=== PATIENT | female | born 1975 | race Caucasian/White ===

== ENCOUNTER → 2018-01-17 15:57 | Outpatient (CLI) | payer MEDICARE, SELFPAY ==
--- NOTE | 2018-01-17 16:00 | RAD_ITS ---
STUDY: X-RAY - CERVICAL SPINE REASON FOR EXAM: Female, 42 years old. Neck pain TECHNIQUE: 3 view(s) of the cervical spine were obtained. COMPARISON: 08/02/2017 FINDINGS: There is no evidence of fracture or dislocation in the cervical spine. The vertebral body heights and disc spaces are well-maintained. There are no significant degenerative changes. The prevertebral soft tissues are unremarkable. There is no radiodense foreign body. RAD/Cerv Spine 2 or 3 Views IMPRESSION: No fracture or dislocation in the cervical spine. Electronically Signed: Jacob Antonio, at 20:35 EST Tel , Service support ,
--- NOTE | 2018-01-17 16:10 | RAD_ITS ---
STUDY: X-RAY - THORACIC SPINE REASON FOR EXAM: Female, 42 years old. Pain TECHNIQUE: 2 view(s) of the thoracic spine were obtained. COMPARISON: 08/02/2017 FINDINGS: There is no evidence of fracture or dislocation in the thoracic spine. The vertebral body heights and disc spaces are well-maintained. There are no significant degenerative changes. RAD/Thoracic Spine 2 Views IMPRESSION: No fracture or dislocation in the thoracic spine. Electronically Signed: Jacob Antonio, at 20:36 EST Tel , Service support ,
== END ==
PROVIDERS: Family Provider Internal Medicine; PCP Internal Medicine; Visit Provider Anesthesiology Pain Medicine
DX: M54.2 Cervicalgia (principal); M54.9 Dorsalgia, unspecified
CPT/HCPCS: 72040; 72070

== ENCOUNTER 2018-08-02 10:30 | Outpatient (RCR) | payer MEDICARE, SELFPAY ==
--- NOTE | 2018-07-04 11:02 | HP.PTEVAL ---
Patient's Visit Information SID MORFIN is a 42 year old F referred to Physical Therapy by Lara Reeder DO with a diagnosis of R knee pain, chondramalacia, OA. Date of Evaluation: 07/04/18 Physical Therapist: Rosalio Mishra - Visit Plan Frequency: 2x /Week Duration: 4 Weeks Plan: Start with HS stretching, quad/HS/glute med strengthening in pain free ranges. Progress to HEP as tolerated. - Subjective Subjective: Pt. is here today for her initial evaluation with diagnosis of R knee chondromalaysia. Pt. reports having pain for ~1 year after standing on a plane and her knee gave out. Pt. reprots having intermittent pain ever since. Pt. reports having chronic pain with bowel issues. Pt. has been taking oral steroids since. Increased pain: standing, walking, twisting, stairs and kneeling. Decreases pain: Cross legged positioning. Pt. reports cracking and popping alot. Pt. reports having to take after her who sounds like he has high level of pain with all mobility. Pt. is hopeful to reduce symptoms with HEP allowing increased tolerance to all functional mobility. Pt. did talk wt physician about potential injections, but physician wanted her to trial PT first. Pt. 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 - Pain R knee pain Pain Intensity (Out of 10): 1 Pain Intensity Range: 7 Comment: when getting up from kneeling - Objective POSTURE: Pt. has general flexed posture. Pt. has wide ANGEL. Pt. has sight bilateral knee valgus and tibial IR. PALPATION: Pt. has increased tenderness along medial aspect joint line. Pt. has increased tenderness along popliteal fossa as well. NEUROLOGICAL: Pt. reports slight reduction in sensation at lateral knee, but rest in normal Pt. has 2+ bilateral achilles and patellar DTR. Pt. is able to rise on heels and toes without increase in symptoms. ROM: L knee 0-0-134deg No pain. R knee 0-0-125deg increased pain with knee flexion, worse with over pressure. Pt. has decreased B hip ROM secondary to pain. Pt. has tight B HS as well. Crepitus noted throughout knee ROM, grestest and TKE and end range flexion. MMT: RLE- ankle 5/5 throughout; knee- ext 4/5, flexion 4/5; hip- flexion 4/5 increase NW, abd 4/5 increase NW hip, ext 4/5 increase NW hip. LLE- ankle/knee 5/5 throughout; hip- flexion 4/5 increase hip pain, abd 4/5 increase hip pain. Core strength- poor. GAIT: Pt. has increased difficulty with getting up and with first few steps. Pt. has improved pattern after initial steps, but still has decreased step length bilaterally, increased lateral hip sway, increased pain noted. STAIRS: Pt. uses BHR with step to pattern, loading LLE only. - Special Tests R Knee Anterior Drawer - ACL: Negative R Knee Pivot Shift - ACL, Ant. Rotator Instability: Negative R Knee Posterior Drawer - PCL: Negative R Knee Valgus - MCL: Negative R Knee Varus - LCL: Negative R Knee Patellar Grind - PFS: Positive - Goals Goal 1:: Pt. to be I with HEP. Goal Time Frame: 4-6 Weeks Goal 2:: Pt. to have increased R knee ROM to 0-0-130deg without increase in symptoms. Goal Time Frame: 4-6 Weeks Goal 3:: Pt. to have increased RLE and core strength increased by 1/2 grade of all effected musculature to reduce stress applied R knee with all functional mobility. Goal 4:: Pt. to have reduced pain with all walking/standing/ADLs to 0-2/10 pain in R knee. Goal Time Frame: 4-6 Weeks - Rehabilitation Potential Physical Therapy Diagnosis: Pt. has signs and symptoms consistent with R knee pain. Pt. has decreased knee flexion with increased pain, RLE weakness and increased pain with all functional mobility. Pt. would benefit from PT to increase quad/HS strength, increase glute med strength, decrease symptoms and increased hip/knee mobility in pain free ranges. Rehabilitation Potential: Good - Anticipated Interventions Patient/Client Instruction: Educate patient on: Condition, Plan of Care, Risk Factors, Benefits of Fitness Program For the Purpose of:: To improve safety, To improve health and function, To foster healthy habits, To improve decision making, To facilitate caregiver knowledge, To improve self management, To prevent re-injury, To improve ability to perform tasks related to life management, To improve tolerance to ADL's Therapeutic Exercise to Include: Strength training, Power training, Endurance training, Postural training, Flexibilty training, Gait and locomotor training, Passive ROM, Active ROM, Dynamic Lumbar Stabilization For the Purpose of:: To decrease pain, To increase ROM, To improve nutrient delivery to tissue, To increase oxygenation perfusion, To improve muscle performance and motor function, To improve ability to perform ADL's, To improve gait and locomotor functions, To improve health of tissue, To decrease soft tissue restriction, To increase flexibility/ROM Manual Therapy Techniques to Include: Mobilization, Functional dry needling, Soft tissue mobilization For the Purpose of:: To decrease pain, To decrease swelling/inflammation, To increase ROM, To improve nutrient delivery to tissue Cryotherapy (ice pack, ice massage): Yes Ultrasound (thermal/non thermal): Yes For the Purpose of:: To decrease pain, To decrease swelling/inflammation, To increase ROM, To improve nutrient delivery to tissue, To decrease soft tissue restriction Thank you for the opportunity to evaluate your patient. For Medicare and Medicare HMO plans, please review the plan of care and approve it. It will need to be FAXED BACK to us at [phone] for Medicare purposes. Please let me know if there are questions or concerns regarding this plan of care. Physician Signature: Date:
--- NOTE | 2018-12-04 17:18 | HP.PT.NRP ---
HP - Discharge Summary (1) - Patient Information SID MORFIN was seen in my office for initial evaluation on 07/04/18. The following Plan of Care was established for this patient: Initial Frequency: 2x /Week Initial Duration: 4 Weeks - Anticipated Interventions Patient/Client Instruction: Educate patient on: Condition, Plan of Care, Risk Factors, Benefits of Fitness Program For the Purpose of:: To improve safety, To improve health and function, To foster healthy habits, To improve decision making, To facilitate caregiver knowledge, To improve self management, To prevent re-injury, To improve ability to perform tasks related to life management, To improve tolerance to ADL's Therapeutic Exercise to Include: Strength training, Power training, Endurance training, Postural training, Flexibilty training, Gait and locomotor training, Passive ROM, Active ROM, Dynamic Lumbar Stabilization For the Purpose of:: To decrease pain, To increase ROM, To improve nutrient delivery to tissue, To increase oxygenation perfusion, To improve muscle performance and motor function, To improve ability to perform ADL's, To improve gait and locomotor functions, To improve health of tissue, To decrease soft tissue restriction, To increase flexibility/ROM Manual Therapy Techniques to Include: Mobilization, Functional dry needling, Soft tissue mobilization For the Purpose of:: To decrease pain, To decrease swelling/inflammation, To increase ROM, To improve nutrient delivery to tissue Cryotherapy (ice pack, ice massage): Yes Ultrasound (thermal/non thermal): Yes For the Purpose of:: To decrease pain, To decrease swelling/inflammation, To increase ROM, To improve nutrient delivery to tissue, To decrease soft tissue restriction This patient was last seen in our office 08/02/18. Pertinent comments regarding their Physical therapy will appear below: Pt. was seen for her knee OA and pain. Pt. was seen for 3 visits, but did not return to further visits. Pt. will be DC from PT at this point intime. At this point I will be discontinuing this patient from physical therapy. I would be happy to see this patient again in the future if found appropriate by the physician. Thank you! Rosalio Mishra, ANDREWT
== END 2018-08-02 19:00 | disposition home or self-care (01) ==
LOC: PT 10:30
PROVIDERS: Family Provider Internal Medicine; PCP Internal Medicine; Visit Provider Orthopaedic Surgery
DX: M25.561 Pain in right knee (principal); M94.261 Chondromalacia, right knee; M17.11 Unilateral primary osteoarthritis, right knee
CPT/HCPCS: 97110; 97161

== ENCOUNTER 2018-08-14 10:34 | Emergency (ER) | payer MEDICARE, SELFPAY ==
[2018-08-14 10:35] VITALS: BP 135/90; PULSE 95; RESP 18; TEMP 36.4; O2SAT 98; BMI 35.5
[2018-08-14 11:15] LABS: Absolute Lymphocyte Count 2.81 X10^3/ul (0.83-4.51); Basophil# 0.02 X10^3/uL; Basophil% 0.3 % (0-1); Eosinophil# 0.14 X10^3/uL; Eosinophils% 2.2 % (0-5); Hemoglobin 14.2 g/dl (12.0-15.0); Lymphocyte # 2.81 X10^3/ul (4.0); Lymphocyte % 44.1 % (19-41); Mean Corpuscular Hgb 28.3 pg (27.0-32.0); Mean Corpuscular Volume 85.7 fL (81-99); Mean Platelet Vol. 10.8 fl (6.2-12.0); Monocyte# 0.38 X10^3/uL; Neutrophil # 3.01 X10^3/uL (2.7-7.7); Neutrophil % 47.2 % (47-70); Platelet Count 176 K/mm3 (150-450); RBC Distribution Width CV 12.9 % (11.6-14.6); RBC Distribution Width SD 40.1 fl (35.1-43.9); Red Blood Count 5.02 M/mm3 (4.2-5.4); White Blood Count 6.4 K/mm3 (4.4-11.0)
[2018-08-14 11:16] LABS: POSITIVE COUNT NO; POSITIVE DIFFERENTIAL NO; POSITIVE MORPHOLOGY NO
[2018-08-14] MEDS: Ketorolac 30 MG/ML Syringe IV (11:19)
[2018-08-14] MEDS: 0.9% Normal Saline 1,000 ML 125 ML IV (11:19)
[2018-08-14 11:23] LABS: Anion Gap 11 (5-15); BUN 6 mg/dL (7-18); BUN/Creat Ratio 8.2 RATIO (10-20); Calcium,Total 9.7 mg/dL (8.5-10.1); Chloride 105 mmol/L (98-107); Creatinine, Serum 0.73 mg/dL (0.55-1.02); EST Glomerular Filtration Rate 92 mL/min (>60); Est Glom Filt Rate - Afr Amer 111 mL/min (>60); Estimated Creatinine Clearance 125.16 ml/min; Glucose 183 mg/dL (74-106); Potassium 4.1 mmol/L (3.5-5.1); Sodium Level 138 mmol/L (136-145)
[2018-08-14 11:27] LABS: Pregnancy, Serum, hCG Quali. NEGATIVE Negative (0-9 Nonpreg)
[2018-08-14 12:15] LABS: Red Blood Cells-Urine 0 SEEN /hpf (0-5)
[2018-08-14 12:18] LABS: Color, Urine Yellow (Yellow); Glucose, Dipstick 50 mg/dl (Normal); Ketone-Dipstick Negative (Negative); Leukocyte Esterase-Dipstick 25 /ul (Negative); Nitrite-Dipstick Negative (Negative); Occult Blood-Urine 10 /ul (Negative); Protein-Dipstick 15 mg/dl (Negative); Specific Gravity, Urine 1.025 (1.002-1.030); Urine Bilirubin Dipstick Negative (Negative); Urine Clarity Sl. Cloudy (Clear); Urine Urobilinogen Normal (Normal)
[2018-08-14 12:25] LABS: White Blood Cells 0-5 SEEN /hpf (0-5)
[2018-08-14 12:26] LABS: Bacteria RARE /hpf (None Seen); Mucous, Urine 1+ /hpf (<or=2+); Squamous Epithelial Cells - UA 0-5 SEEN /hpf (5-10)
--- NOTE | 2018-08-14 13:23 | ED.VISSUMM ---
- ER Visit Summary Date of Service: 08/14/18 Chief Complaint: Abdominal pain] History of Present Illness: The patient is a 42 F [presents with abdominal pain that she has had for 3 weeks. Patient states that she has had significant workup already to look into this including CT scan of the abdomen and pelvis which showed a cystic mass believed to be originating in the ovary on the left. Patient subsequently had a pelvic ultrasound that did show an ovarian cyst measuring 5 cm believed to be a hemorrhagic cyst. Patient denies any vaginal bleeding. Patient states that she also had a CA 125 test that was negative. Patient takes Percocet 3 times a day and that seems to just barely take the edge off her pain. Patient has an appointment with [facility] Dr. Jamil tomorrow. Patient complains of a lot of pressure when she urinates. She denies dysuria however. She has not had any fevers. This is the same pain she has had over the last 3 weeks.] Physical Examination: [HEENT-PERRLA, EOMI. Cranial nerves II through XII grossly intact. TMs clear. Mucous membranes moist. No adenopathy. Cardiovascular-regular rate and rhythm without murmur or ectopy Lungs-clear to auscultation, chest wall stable without crepitus or subcu emphysema Abdomen-normoactive bowel sounds, soft. Patient has tenderness of the left lower quadrant into the pelvic region. No masses palpated. Patient does have ileostomy right lower quadrant. Extremities-intact ?4, normal range of motion, normal pulses, atraumatic] Test Results: [CBC with differential obtained was normal. Chemistries unremarkable. Urinalysis was normal. HCG was negative.] Emergency Department Course and Treatment: Patient was medicated with Toradol 30 mg IV she did have some pain relief with that. At this point I do not feel any further imaging is indicated. I did discuss case with her [facility] who will see her later today.] Treatment Plan: [Follow-up with [facility] today.] Disposition: [Discharged home stable condition.] Impression: [Left abdominal pelvic pain Ovarian cyst] This note was generated with [employer] software. It may contain incorrect words, spelling, and punctuation that were not noted in review of the chart prior to signing ED Disposition - Plan for ED Patient: Chief Complaint: Abd Pain Referrals: Grayson Phan MD [Primary Care Provider] -
--- NOTE | 2018-08-14 13:26 | ED.DCSUM_ITS ---
- ER Visit Summary Date of Service: 08/14/18 Chief Complaint: Abdominal pain] History of Present Illness: The patient is a 42 F [presents with abdominal pain that she has had for 3 weeks. Patient states that she has had significant workup already to look into this including CT scan of the abdomen and pelvis which showed a cystic mass believed to be originating in the ovary on the left. Patient subsequently had a pelvic ultrasound that did show an ovarian cyst measuring 5 cm believed to be a hemorrhagic cyst. Patient denies any vaginal bleeding. Patient states that she also had a CA 125 test that was negative. Patient takes Percocet 3 times a day and that seems to just barely take the edge off her pain. Patient has an appointment with [facility] Dr. Jamil tomorrow. Patient complains of a lot of pressure when she urinates. She denies dysuria however. She has not had any fevers. This is the same pain she has had over the last 3 weeks.] Physical Examination: [HEENT-PERRLA, EOMI. Cranial nerves II through XII grossly intact. TMs clear. Mucous membranes moist. No adenopathy. Cardiovascular-regular rate and rhythm without murmur or ectopy Lungs-clear to auscultation, chest wall stable without crepitus or subcu emphysema Abdomen-normoactive bowel sounds, soft. Patient has tenderness of the left lower quadrant into the pelvic region. No masses palpated. Patient does have ileostomy right lower quadrant. Extremities-intact ?4, normal range of motion, normal pulses, atraumatic] Test Results: [CBC with differential obtained was normal. Chemistries unremarkable. Urinalysis was normal. HCG was negative.] Emergency Department Course and Treatment: Patient was medicated with Toradol 30 mg IV she did have some pain relief with that. At this point I do not feel any further imaging is indicated. I did discuss case with her [facility] who will see her later today.] Treatment Plan: [Follow-up with [facility] today.] Disposition: [Discharged home stable condition.] Impression: [Left abdominal pelvic pain Ovarian cyst] This note was generated with [employer] software. It may contain incorrect words, spelling, and punctuation that were not noted in review of the chart prior to signing ED Disposition - Plan for ED Patient: Chief Complaint: Abd Pain Referrals: Grayson Phan MD [Primary Care Provider] -
--- NOTE | 2018-08-14 13:27 | ED.DEP ---
ED Disposition - Plan for ED Patient: Chief Complaint: Abd Pain Instructions: ED Abdominal Pain Unkn Cause, ED Cyst Ovarian Referrals: Grayson Phan MD [Primary Care Provider] - Sofia Jamil DO [STAFF PHYSICIAN] - As soon as possible
[2018-08-14 13:36] VITALS: BP 135/74; PULSE 81; RESP 16; O2SAT 99
== END 2018-08-14 13:37 | disposition home or self-care (01) ==
PROVIDERS: Emergency Provider Emergency Medicine; Family Provider Internal Medicine; PCP Internal Medicine
DX: R10.2 Pelvic and perineal pain (principal); N83.202 Unspecified ovarian cyst, left side; Z93.2 Ileostomy status; E11.9 Type 2 diabetes mellitus without complications; M79.7 Fibromyalgia; M19.90 Unspecified osteoarthritis, unspecified site; K50.90 Crohn's disease, unspecified, without complications; Z79.84 Long term (current) use of oral hypoglycemic drugs; Z79.899 Other long term (current) drug therapy; Z87.891 Personal history of nicotine dependence
CPT/HCPCS: 80048; 81001; 84703; 85025; 96361; 96374; 99283; J7030; A4216

== ENCOUNTER → 2018-12-04 11:30 | Outpatient (CLI) | payer MEDICARE, SELFPAY ==
[2018-12-04 12:11] LABS: Amphetamine Urine VISTA NEGATIVE (<1000 ng/mL); Barbiturate Urine VISTA NEGATIVE (< 200 ng/mL); Benzodiazepine Urine VISTA NEGATIVE (< 200 ng/mL); Cocaine Urine VISTA NEGATIVE (< 300 ng/mL); Ecstacy Urine VISTA NEGATIVE (< 500 ng/mL); Methadone Urine VISTA NEGATIVE (< 300 ng/mL); PCP Urine VISTA NEGATIVE (< 25 ng/mL); THC Urine VISTA NEGATIVE (< 50 ng/mL); Vista UDS pH Range 5
--- OUTSIDE RECORDS SUMMARY | 2019-02-05 15:17 | XMS RPT_ITS ---
:1975 Author Organization OHIP Care Team Providers Name Role Phone SOPHY HARRISON Referring Unavailable SOPHY HARRISON Attending Unavailable SOPHY HARRISON Referring Unavailable GRAYSON PHAN Attending Unavailable GRAYSON PHAN Referring Unavailable PATRICIO PAINTER Attending Unavailable GRAYSON PHAN Referring Unavailable CYNDIE BORDEN (CNM) Attending Unavailable JENNY BORDENTHIA (CNM) Referring Unavailable MICHI, CYNDIE (CNM) Referring Unavailable MICHI, CYNDIE (CNM) Referring Unavailable MICHI CYNDIE (CNM) Referring Unavailable SAFIA JAMIL Attending Unavailable SAFIA JAMIL Attending Unavailable PHAN, MUSA Attending Unavailable PHAN, MUSA Referring Unavailable LANSASOPHY ORTEGA Attending Unavailable LANSANG, SOPHY Referring Unavailable CHRIS MADISON Attending Unavailable LANSANG, MKITTY Referring Unavailable FRANC MATHUR Attending Unavailable WISWELL, SAFIA Referring Unavailable WISWELL, SAFIA Attending Unavailable WISWELL, SAFIA Referring Unavailable VERITO LEZAMA (COMMUNICATIONS ASSOCIATE) Attending Unavailable PHAN, MUSA Referring Unavailable PHAN, MUSA Attending Unavailable PHAN, MUSA Referring Unavailable ISI FAGAN (HEEL VARNISHER) Referring Unavailable LANSANG, SOPHY Attending Unavailable ROOPASASHANNON, SOPHY Referring Unavailable Basali, Michelle Attending Unavailable Basali, Michelle Referring Unavailable Phan, Grayson Primary Care Unavailable WaytShad Attending Unavailable Phan, Grayson Referring Unavailable Basali, Michelle Attending Unavailable Phan, Grayson Primary Care Unavailable Chicorelli, Lara Attending Unavailable Phan, Grayson Referring Unavailable Phan, Grayson Primary Care Unavailable Chicorelli, Lara Attending Unavailable Phan, Grayson Referring Unavailable Phan, Grayson Primary Care Unavailable Chicorelli, Lara Attending Unavailable Chicorelli, Lara Referring Unavailable Phan, Grayson Primary Care Unavailable Chicorelli, Lara Attending Unavailable Phan, Grayson Referring Unavailable Phan, Grayson Primary Care Unavailable UngurEliazar Attending Unavailable Chicorelli, Lara Attending Unavailable Phan, Grayson Referring Unavailable PROBLEMS PROBLEMS DATE TYPE CONDITION / CODE ATTENDING STATUS SOURCE 12/05/2018 Unknown M75.41 - Impingement Shad Mckeon Active [facility] syndrome of right [facility] M75.41(ICD-10) Repository 12/05/2018 Unknown M75.42 - Impingement Shad Mckeon Active [facility] syndrome of left [facility] shoulder [facility] M75.42(ICD-10) Repository 12/04/2018 Unknown F11.20 - Opioid Basali, Kittyman Active [facility] dependence, [facility] uncomplicated / Hospital F11.20(ICD-10) Repository 11/29/2018 Active Pleurodynia / NA Active [facility] R07.81(ICD-10) Clinic Main [place] Repository 11/26/2018 Active 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 Active [facility] (current) drug Clinic Main therapy / [place] Z79.899(ICD-10) Repository 09/20/2018 Unknown M25.511 - Pain in L[place], Active [facility] right shoulder / [facility] M25.511(ICD-10) Hospital Repository 09/20/2018 Unknown M25.512 - Pain in Lilli, Active [facility] left shoulder / [facility] M25.512(ICD-10) Hospital Repository 08/30/2018 Active Unspecified abdominal NA Active [facility] pain / R10.9(ICD-10) Clinic Main [place] Repository 08/30/2018 Active Dysuria / NA Active [facility] R30.0(ICD-10) Clinic Main [place] Repository 08/09/2018 Active Noninflammatory NA Active [facility] disorder of ovary, Clinic Main fallopian tube and [facility] broad ligament, Repository unspecified / N83.9(ICD-10) 08/07/2018 Active Left lower quadrant NA Active [facility] abdominal swelling, Clinic Main mass and lump / [facility] R19.04(ICD-10) Repository 08/07/2018 Active Unknown / NA Active [facility] UNK(Unknown) Clinic Main [place] Repository 08/06/2018 Active Left lower quadrant NA Active [facility] pain / R10.32(ICD-10) Clinic Main [place] Repository 08/06/2018 Active Other chronic pain / NA Active [facility] G89.29(ICD-10) Clinic Main [place] Repository 12/06/2018 Unknown M25.561 - Pain in Lilli, Active [facility] right knee / [facility] M25.561(ICD-10) Hospital Repository 02/27/2018 Unknown M75.01 - Adhesive Chichumbertoli, Active [facility] capsulitis of right [facility] shoulder / Hospital M75.01(ICD-10) Repository 02/27/2018 Unknown M75.02 - Adhesive Chicorelli, Active [facility] capsulitis of left [facility] shoulder / Hospital M75.02(ICD-10) Repository 08/20/2015 Active Type 2 diabetes NA Active [facility] mellitus without Clinic Main complications / [place] E11.9(ICD-10) Repository 08/20/2015 Active 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 Active [facility] use of insulin / Clinic Main Z79.4(ICD-10) [facility] Repository PROCEDURES PROCEDURES No Procedure Records FoundRESULTS RESULTS CNOV Observed: 12/06/2018 Status: COMPLETED Source: [facility] 9:30 AM CLINIC [facility] REPOSITORY Office Visit (ENDCMN) VANDANA LEZAMA ([id number]) 1975 F Date Time Provider Department 12/06/18 9:30 AM SOPHY HARRISON [facility] During your visit today, we recorded the following information about you: Pulse Blood pressure Weight 85/minute 108/80 80.1 kg Sophy Harrison MD 12/06/2018 11:11 AM Signed HISTORY Ms Vandana Lezama is a 42 year old female who comes in here for follow-up of Type 2 DM - retinal hole, +neuropathy from cervical problems Dyslipidemia and fatty liver- elevated liver enzymes Steroid injections Low bone mass DIABETES Diagnosed DM in 2006, was having reactive hypoglycemia History of diabetes medications: Metformin started first Januvia started 2011 Glyburide caused lows 50s Lantus Current diabetes medications: Lantus - 60 units at bedtime Metformin 1000 mg BID Januvia 50 mg daily (insurance not covering 100 mg dose) Average blood glucoses: brought meter, few readings PreB: 130-170 PreL PreD: >130 Bedtime Hypoglycemias: 1 epidose due to mising dinner, had BG around 87, symptoms of sweats, dizzy and disoriented Was on atorvastatin, stopped, wanting to go holistic, Using essic and dandelion, red yeast rice root Change in meals and exercise: walking in [place], is up and moving 2h daily 7 days a week, no changes in diet Had a fall 1 week ago, right side of body aches STEROIDS/BONE Has ileostomy bag Has Crohn's - no steroids for this, has ileostomy Last steroid exposure including injection September 27 2018, left hip BMD done in 04/2017 showed lowest Z score -2.3 Calcium intake in diet/supplements: Vitamin D intake: Vitamin D3 oral 2000 units 1x daily, multiviatim PMHx: Neg for pancreatitis Crohn's Ovarian cyst BARNES RA Fibromyalgia SocHx: Denies smoking. Occasional alcohol. 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 +frequency OVEN TENDER: ammenorhea, on ongoing BC MUSCULOSKELETAL: joint pain shoulders and hips b/l, Muscle ache on your right intercostal from recent fall SKIN: +eczema across chest, psoriasis flaring up again, no ulcers PSYCH: easily irritable, no anxiety HEMATOLOGY/LYMPHOLOGY: Negative for prolonged bleeding, swollen nodes. Bruises easily ENDOCRINE: See HPI NEURO: No headaches, no focal weakness/numbness Component Latest Ref Rng AND Units 01/23/2018 05/24/2018 08/30/2018 09/06/2018 11/26/2018 Protein, Total 6.3 - 8.0 g/dL 7.5 Albumin 3.9 - 4.9 g/dL 4.4 Calcium 8.5 - 10.2 mg/dL 9.8 10.2 Bilirubin, Total 0.2 - 1.3 mg/dL 0.3 Alkaline Phosphatase 34 - 123 U/L 136 (H) AST 13 - 35 U/L 70 (H) 69 (H) Glucose 74 - 99 mg/dL 161 (H) 309 (H) BUN 7 - 21 mg/dL 10 6 (L) Creatinine 0.58 - 0.96 mg/dL 0.54 (L) 0.61 Sodium 136 - 144 mmol/L 137 138 Potassium 3.7 - 5.1 mmol/L 3.9 4.1 Chloride 97 - 105 mmol/L 100 99 CO2 22 - 30 mmol/L 21 (L) 24 Anion Gap 9 - 18 mmol/L 16 15 ALT 7 - 38 U/L 86 (H) 93 (H) eGFR- >60 >60 eGFR-All Other Races . >60 >60 Cholesterol, Total <200 mg/dL 235 (H) 223 (H) Triglyceride <150 mg/dL 148 129 HDL Cholesterol >39 mg/dL 52 55 LDL Cholesterol <100 mg/dL 153 (H) 142 (H) Non HDL Cholesterol <130 mg/dL 183 (H) 168 (H) Fasting Time hrs 10 12 VLDL Cholesterol <30 mg/dL 30 (H) 26 TC:HDL Ratio <5.10 4.52 4.05 LDL:HDL Ratio <2.54 2.94 (H) 2.58 (H) Creatinine, Ur Random (UCRR) 20 - 300 mg/dL 81.5 269.5 Albumin, Urine Random 0.0 - 23.0 mg/L <12.0 51.7 (H) Albumin/Creat Ratio 0 - 30 mg/g Not calculated 19 Hemoglobin A1C 4.3 - 5.6 % 7.1 (H) Estimated Average Glucose mg/dL 157 Vitamin B12 232 - 1,245 pg/mL 932 Vitamin D 25 Hydroxy 31.0 - 80.0 ng/mL 32.3 Hemoglobin A1C (POCT) 4.2 - 5.6 % 7.5 (A) 8.1 (A) 04/21/2017 ?8:00 AM - Interface, Results In Impression IMPRESSION: THE LOWEST Z-SCORE IS: -2.3 DIAGNOSIS (based on BMD alone): ?Below that expected for age Caution: Medical conditions other than osteoporosis may cause low bone density, such as osteomalacia or renal osteodystrophy. ?Clinical correlation is necessary. FRACTURE RISK (based on BMD alone): ?May be increased Caution: Fracture risk may be increased independent of BMD in patients with corticosteroid use, age greater than 65 years, or a history of prior fragility fracture. FRACTURE RISK - FRAX 10-Year Probability of Fracture ?Hip Fracture: ?0.4 % ?Major Osteoporotic Fracture: ?4.0 % According to the National Osteoporosis Foundation (NOF), healthcare providers should consider FDA-approved medical therapies in postmenopausal women and men aged 50 years and older, based on the following: * ?A hip or vertebral (clinical or morphometric) fracture * ?T-score less than or equal to -2.5 at the femoral neck or spine after appropriate evaluation to exclude secondary causes * ?Low bone mass (T-score between -1.0 and -2.5 at the femoral neck or spine) AND a 10-year probability of a hip fracture greater than or equal to 3% OR a 10-year probability of a major osteoporosis-related fracture greater than or equal to 20% based on the US-adapted WHO FRAX algorithm in a previously untreated patient * ?Clinician's judgment and/or patient preferences may indicate treatment for people with 10-year fracture probabilities above or below these levels RECOMMENDATIONS All patients should consume adequate sources of calcium and vitamin D, as clinically indicated. ?The NOF supports the National Academy of Sciences recommendation that women older than age 50 consume at least 1,200 mg per day of calcium. ? Adults aged 19 to 70 years require at least 600 IU/day of vitamin D to maximize bone health. ?However, serum 25(OH)D should be maintained above 30 ng/mL, and 1500 to 2000 IU/day of vitamin D may be required. Weight bearing exercises and strength training should be considered. Smoking cessation, and moderation of intake of alcohol, caffeine and carbonated beverages are recommended. Follow-up in 2 years or as clinically indicated. ?Patients that are taking corticosteroids, are transplant recipients, or have hyperparathyroidism should have annual follow-up. ?Follow- up scans should always be done on the same machine for accurate comparison. Interpreted by: Pema Wright MS, , CCD, FACE FOR MORE INFORMATION: National Osteoporosis Foundation: ?www.nof.org International Society of Clinical Densitometry: ?www.iscd.org Senior Project Manager Engineering: SANTOS ? Transcribe Date/Time: Apr ?2016 ?7:43A Dictated by : PEMA WRIGHT MD This examination was interpreted and the report reviewed and electronically signed by: PEMA WRIGHT MD on Apr ?7:54AM ?EST Results-Findings * * *Final Report* * * DATE OF EXAM: Apr ?8:56AM ? M6B ? 5714 ?- ?BD AP SPINE/HIP -NB ?/ PROCEDURE REASON: calcium clinic - bone density ?? ? * * * * Physician Interpretation * * * * ?EXAM: DXA - ?BONE DENSITOMETRY ENDOCRINE CALCIUM CLINIC PATIENT DEMOGRAPHICS ?Age: 41, ?Race: C Gender: F ?Height: 152.4 cm, ? Weight: 76.7 Kg, BMI: 33.01 Kg/m2 SCANNER INFORMATION Model of DXA scanner: Human Demand Site of DXA scanner: [facility] Sites scanned: Lumbar spine, ?left hip Date of scan: 04-20-2017 Previous scan(s): 09-22-2014 RISK FACTORS FOR OSTEOPOROSIS AND ASSOCIATED FRACTURES REPORTED BY THE PATIENT Family history of osteoporosis in a first degree relative, ?Family history of a fragility fracture in a first degree relative, Current corticosteroid therapy, Type 2 Diabetes, ?Crohn's disease with ileostomy., ?Lactose intolerance. CURRENT THERAPY Calcium supplements TECHNICAL LIMITATIONS OF THIS DXA The greater trochanter may not have been positioned fully against the DXA table therefore the total hip BMD may be artificially low. 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 Mc, [facility] - Type II or unspecified type diabetes mellitus without mention of complication, not stated as uncontrolled PAST SURGICAL HISTORY Procedure Laterality Date - EPIDURAL multiple ones done by Dr. Beckett, last one in 04/2011 - KNEE SCOPE,DIAGNOSTIC 1989 Arthroscopy, knee, left - OP BRONCHOS DIAG, W/WO WASHING January 2007 Bronchoscopy - PAST SURGICAL HISTORY OF 06/2000 ILEOSTOMY/COLECTOMY - PAST SURGICAL HISTORY OF 1993 CRYOCAUTERY/ MILD DYSPLASIA - PAST SURGICAL HISTORY OF March 2006 Abdominal abscess with anal fistula - PROCTECTOMY,COMPL,COLECTOMY,BX'S 2006 AP endoanal proctectomy - REMOVAL ADENOIDS,PRIMARY,<12 Y/O as child Adenoidectomy - REMOVAL OF TONSILS,<12 Y/O AGE 11 Tonsillectomy Social History Substance Use Topics - Smoking status: Former Smoker Packs/day: 1.00 Years: 16.00 Types: Cigarettes Quit date: 12/04/2006 - Smokeless tobacco: Never Used - Alcohol use No FAMILY HISTORY Problem Relation Age of Onset - Alcohol/Drug Mother - Hypertension Mother COPD - other (vascular disease) Mother - Alcohol/Drug Father - Cancer Father liver - Diabetes Maternal Grandmother - Stroke Maternal Grandmother - Heart Maternal Grandmother - Diabetes Paternal Grandfather - Emphysema Paternal Grandmother Current Outpatient Prescriptions: SUMAtriptan (IMITREX) 50 mg tablet Take one(1) tablet daily as needed, at headache onset. Repeat in two(2) hours if needed. RED YEAST RICE ORAL Take 1 capsule by mouth twice daily. doxycycline (VIBRA-TABS) 100 mg tablet Take 1 tablet by mouth twice daily for 10 days. fluticasone (FLONASE) 50 mcg/actuation nasal spray Use 2 Sprays in each nostril once daily. pregabalin (LYRICA) 150 mg capsule Take 1 capsule by mouth twice daily for 90 days. insulin glargine (LANTUS SOLOSTAR U-100 INSULIN) 100 unit/mL (3 mL) inpn Inject 60 Units subcutaneously daily at bedtime. Norethindrone, Contraceptive, (ORTHO MICRONOR) 0.35 mg tablet Take 1 tablet by mouth once daily. blood sugar diagnostic (BLOOD GLUCOSE TEST) test strip Test blood sugar(s) 2 times daily. Dx: Type 2 DM - Controlled E11.9 Insulin: No, Accu-check brand covered by insurance Lancets (ACCU-CHEK MULTICLIX LANCET) lancets Test blood sugar(s) 2 times daily. Dx: Type 2 DM - Controlled E11.9 Insulin: No Blood-Glucose Meter, Drum-type (ACCU-CHEK COMPACT PLUS CARE) kit Accu-Check Compact Plus Meter Diagnosis: Type 2 DM - Controlled E11.9 metFORMIN (GLUCOPHAGE) 1,000 mg tablet Take 1 tablet by mouth twice daily. ranitidine (ZANTAC) 150 mg tablet Take 1 tablet by mouth twice daily as needed. cetirizine (ZYRTEC) 10 mg tablet Take 1 tablet by mouth once daily. sitaGLIPtin (JANUVIA) 50 mg tablet Take 1 tablet by mouth once daily. Insulin [place], Disposable, (BD ULTRA-FINE DIANNE PEN NEEDLE) 32 gauge x 5/32 ndle Use once a day ammonium lactate (LAC-HYDRIN) 12 % cream Apply 1-2x a day for dry areas acidophilus-pectin, citrus (ACIDOPHILUS PROBIOTIC) 100 million cell-10 mg cap Take 1 cap daily COMPOUNDED PRESCRIPTION 1. V44.2 Ileostomy status (HCC) (primary diagnosis)2. 555.1 Regional enteritis of large intestine (HCC)Ileostomy Supplies. 1. Pouches, 2. Planges, 3. Felipe seals, 4. Stoma adhesive, 5. Stoma powder, 6. Skin preps, 7. Adhesive remover wipes. Dispense 1 year supplies. oxyCODONE-acetaminophen (PERCOCET) 5-325 mg tablet Take 1 tablet by mouth every 8 hours as needed. tizanidine (ZANAFLEX) 4 mg ORAL tablet Take by mouth. . Takes 1 tablet at bedtime. COMPOUNDED PRESCRIPTION CAVILON no-sting barrier film. Prod# [id number] made by [employer] No current facility-administered medications for this visit. ALLERGIES Allergen Reactions - Dilaudid [Hydromorp* Swelling migraines - Levemir [Insulin De* Other: See Comments Urine turned dark and smelly - Methadone Swelling migraine - Morphine Swelling migraines - Remicade [Inflixima* Intolerance broke out in blisters with the 6th dose. - Ultram [Tramadol Hc* Swelling migraines PHYSICAL EXAMINATION BP 108/80 Pulse 85 Wt 80.1 kg (176 lb 8 oz) BMI 35.05 kg/m? Body mass index is 35.05 kg/m?. GENERAL: not in distress, well-appearing HEENT: anicteric sclerae, non-injected conjunctivae NECK: supple, thyroid normal, no lymphadenopathy HEART: regular rate and rhythm, no murmur CHEST: no lesions, clear to auscultation GASTROINTESTINAL: abdomen soft, non-tender GENITOURINARY: Not examined EXTREMITIES: no edema, no tremors, Feet: Shoes and socks removed, normal distal pulses, sensitive to 10 gm monofilament and calluses medial hallux, diffuse dryness on plantar feet MUSCULOSKELETAL: no deformities, no fasciculations SKIN: dry, no cyanosis NEUROLOGIC: alert, oriented ASSESSMENT/PLAN Type 2 diabetes, uncontrolled Dyslipidemia Fatty liver - since 17 y/o Chronic intermittent steroid use Bone loss Check BGs twice a day, different times of day Lantus - 60 units at bedtime, will decrease if she has hypoglycemic episodes Discussed GLP-1 agonist, Trulicity 0.75 mg pen 1x weekly, increase to 2 pens weekly in 1 month. Continue metformin Continue Januvia - will stop when she starts her Trulicity Diabetes health maintenance record reviewed. Hypoglycemia prevention, recognition and treatment reviewed Not wanting to take statin, wants to go holistic Bone health: Calcium intake - calcium rich food list provided Continue vitamin D 2000 units daily Labs Annual DM -done 08/2018 BMD BONE DENSITY - ordered for 04/2019 Follow-up 6 months Contact us sooner if with concerns Follow-up with primary care physician for other medical issues. Hemant Gunter DPM PGY1 December 06, 2018 10:44 AM STAFF TEACHING ADDENDUM I have reviewed the progress note obtained and documented by Dr. Gunter and I personally participated in the rodriguez components. I have discussed the case and management of the patient's care with Dr. Gunter. I have edited the note as needed. In addition: Based on the history I obtained, last steroid injection Sep 2018 Symptoms at BG 87 Neg h/o pancreatitis Neg fam hx of thyroid CA On my exam, well-appearing,reddish cheeks (not new) Assessment and Plan: as noted above post discussion with the resident/fellow. Discussed GLP-1 agonist s/e n/v, rare MTC and pancreatitis, when to seek medical attention Shiv as above Contact us if with hypoglycemia to adjust insulin Calcium-rich foods - list given Temi Harrison M.D., M.P.H. December 06, 2018 11:09 AM [facility] Dipak Randolph 12/06/2018 9:20 AM Signed Downloaded and printed data from patient's meter, provided data to clinician. Alexandru Arce Ma 12/06/2018 10:23 AM Addendum Patient Instructions: Trulicity 0.75 mg weekly. After 1 month increase to 1.5 mg weekly by using two of your 0.75 mg pens AND let us know that you need the 1.5 mg pen Side effects: nausea- should improve in 2 weeks, terrible vomiting or back pain - go to the [facility] if approved for Trulicity Contact me if need to lower Lantus dose Bone density by April 2019 Vitamin D 2000 IU daily Table 1: Recommended Dietary Allowances (RDAs) for Calcium [1] Age Male Female Lactating 0?6 months* 200 mg 200 mg 7?12 months* 260 mg 260 mg 1?3 years 700 mg 700 mg 4?8 years 1,000 mg 1,000 mg 9?13 years 1,300 mg 1,300 mg 14?18 years 1,300 mg 1,300 mg 1,300 mg 1,300 mg 19?50 years 1,000 mg 1,000 mg 1,000 mg 1,000 mg 51?70 years 1,000 mg 1,200 mg 71+ years 1,200 mg 1,200 mg * Adequate Intake (AI) Sources of Calcium Food Milk, yogurt, and cheese are rich natural sources of calcium and are the major food contributors of this nutrient to people in the [place] [1]. Nondairy sources include vegetables, such as Ghanaian cabbage, kale, and broccoli. Spinach provides calcium, but its bioavailability is poor. Most grains do not have high amounts of calcium unless they are fortified; however, they contribute calcium to the diet because they contain small amounts of calcium and people consume them frequently. Foods fortified with calcium include many fruit juices and drinks, tofu, and cereals. Selected food sources of calcium are listed in Table 2. Table 2: Selected Food Sources of Calcium [2] Food Milligrams (mg) per serving Percent DV* Yogurt, plain, low fat, 8 ounces 415 42 Mozzarella, part skim, 1.5 ounces 333 33 Sardines, canned in oil, with bones, 3 ounces 325 33 Yogurt, fruit, low fat, 8 ounces [phone] 31?38 Cheddar cheese, 1.5 ounces 307 31 Milk, nonfat, 8 ounces 299 30 Soymilk, calcium-fortified, 8 ounces 299 30 Milk, reduced-fat (2% milk fat), 8 ounces 293 29 Milk, buttermilk, lowfat, 8 ounces 284 28 Milk, whole (3.25% milk fat), 8 ounces 276 28 Barre juice, calcium-fortified, 6 ounces 261 26 Tofu, firm, made with calcium sulfate, ? cup* * * 253 25 [place], pink, canned, solids with bone, 3 ounces 181 18 Cottage cheese, 1% milk fat, 1 cup 138 14 Tofu, soft, made with calcium sulfate, ? cup * * * 138 14 Phprx-ni-bbv cereal, calcium-fortified, 1 cup 100?1,000 10?100 Frozen yogurt, vanilla, soft serve, ? cup 103 10 Turnip greens, fresh, boiled, ? cup 99 10 Kale, raw, chopped, 1 cup 100 10 Kale, fresh, cooked, 1 cup 94 9 Ice cream, vanilla, ? cup 84 8 Ghanaian cabbage, bok knight, raw, shredded, 1 cup 74 7 Bread, white, 1 slice 73 7 Pudding, chocolate, ready to eat, refrigerated, 4 ounces 55 6 Tortilla, corn, mjukg-hm-wxjf/packer, one 6 diameter 46 5 Tortilla, flour, ikpvt-yd-snok/packer, one 6 diameter 32 3 Sour cream, reduced fat, cultured, 2 tablespoons 31 3 Bread, whole-wheat, 1 slice 30 3 Broccoli, raw, ? cup 21 2 Cheese, cream, regular, 1 tablespoon 14 1 * DV = Daily Value. DVs were developed by the U.S. Food and Drug Administration to help consumers compare the nutrient contents among products within the context of a total daily diet. The DV for calcium is 1,000 mg for adults and children aged 4 years and older. Foods providing 20% of more of the DV are considered to be high sources of a nutrient, but foods providing lower percentages of the DV also contribute to a healthful diet. The U.S. Department of Agriculture?s (USDA?s) Nutrient Database Web site lists the nutrient content of many foods and provides comprehensive list of foods containing calcium arranged by nutrient content and by food name. Calcium content varies slightly by fat content; the more fat, the less calcium the food contains. * * * Calcium content is for tofu processed with a calcium salt. Tofu processed with other salts does not provide significant amounts of calcium. https://ods.od.nih.gov/factsheets/Calcium-HealthProfessional/ Downloaded September 2016 Thank you for choosing the [facility] Department of Endocrinology, Diabetes and Metabolism. Being able to provide excellent health care has allowed us to be # 3 in the country according to [employer]. Did you know that you need to call 48 hours in advance of your scheduled visit, if you are unable to make your appointment? [facility] thanks you for your commitment, because patients not showing to their appointment results in a lost opportunity for patients to receive world class health care at the [facility]. To Cancel an appointment, please choose one of the following: - Call the Appointment Call Center at [phone] - From [employer], Go to Appointments ? Cancel Appts If cancelling, consider your need to reschedule to prevent further delays in your care. To Schedule an appointment, please choose one of the following: - Call the Appointment Call Center at [phone] - From [employer], Go to Appointments ? Request an Appt + BONE MINERAL DENSITY PATIENT INSTRUCTIONS Bone mineral density testing measures the amount of calcium in certain parts of your bones. This information determines how strong your bones are. The test is used to detect osteoporosis, a disease in which the bone's mineral content and density are low, increasing a person's risk of fractures. The lumbar spine (lower back) and the hip are the skeletal sites usually examined. For the test, remember that: 1. You cannot take this test if you are . 2. Eat a normal diet on the day of the test. 3. Take your medications as you normally would. 4. DO NOT take calcium supplements (such as Tums) for 24 hours before the test. 5. On the day of the test, leave valuables (jewelry or credit cards) at home. 6. The test should be performed prior to oral, rectal or IV contrast studies, or at least 7 days after any of these studies. For the test, you may be asked to wear a hospital gown. You will lie on your back, on a padded table, in a comfortable position. Generally, you can resume your usual activities immediately. Referring Provider: SOPHY HARRISON [[id number]] Allergies As of Date: 12/06/2018 Noted Allergy Reaction DILAUDID (HYDROMORPHONE (BULK)) 08/07/2006 7 - Swelling Comments: migraines LEVEMIR (INSULIN DETEMIR) 02/17/2014 14 - Other: See Comments Comments: Urine turned dark and smelly METHADONE 11/04/2013 7 - Swelling Comments: migraine MORPHINE 08/07/2006 7 - Swelling Comments: migraines REMICADE (INFLIXIMAB) 08/08/2006 5 - Intolerance 2 - Rash Comments: broke out in blisters with the 6th dose. ULTRAM (TRAMADOL HCL) 04/07/2009 7 - Swelling Comments: migraines Date Reviewed: 12/06/2018 Reviewed by: Alexandru Arce Ma - Fully Assessed Reason for Visit: Diabetes [34] Primary Visit Diagnosis:Type 2 diabetes mellitus treated with insulin (HCC) [E11.9, Z79.4] Other Visit Diagnoses:Bone loss [M89.8X9] Mixed hyperlipidemia [E78.2] Order(s):DXA-AXIAL SKELETON [[id number]] Order #: [id number] FUTURE dulaglutide (TRULICITY) 0.75 mg / 0.5 ml subcutaneous pen injectorInject 0.75 mg subcutaneously once each week.Disp: 14 PenRfl: 1 Prescriptions as of 12/06/2018 Sig: SUMATRIPTAN 50 MG TABLET Take one(1) tablet daily as n* RED YEAST RICE ORAL Take 1 capsule by mouth twice* FLUTICASONE 50 MCG/ACTUATION * Use 2 Sprays in each nostril * PREGABALIN 150 MG CAPSULE Take 1 capsule by mouth twice* INSULIN GLARGINE (U-100) 100 * Inject 60 Units subcutaneousl* NORETHINDRONE (CONTRACEPTIVE)* Take 1 tablet by mouth once d* BLOOD SUGAR DIAGNOSTIC STRIPS Test blood sugar(s) 2 times d* LANCETS Test blood sugar(s) 2 times d* BLOOD-GLUCOSE METER, DRUM-TYP* Accu-Check Compact Plus Meter* METFORMIN 1,000 MG TABLET Take 1 tablet by mouth twice * RANITIDINE 150 MG TABLET Take 1 tablet by mouth twice * CETIRIZINE 10 MG TABLET Take 1 tablet by mouth once d* PEN NEEDLE, DIABETIC 32 GAUGE* Use once a day AMMONIUM LACTATE 12 % TOPICAL* Apply 1-2x a day for dry areas ACIDOPHILUS 100 MILLION CELL-* Take 1 cap daily COMPOUNDED PRESCRIPTION 1. V44.2 Ileostomy status (HC* OXYCODONE-ACETAMINOPHEN 5 MG-* Take 1 tablet by mouth every * TIZANIDINE 4 MG TABLET Take by mouth. . Takes 1 ta* COMPOUNDED PRESCRIPTION CAVILON no-sting barrier film* DULAGLUTIDE 0.75 MG/0.5 ML MILLER* Inject 0.75 mg subcutaneously* DOXYCYCLINE HYCLATE 100 MG TA* Take 1 tablet by mouth twice * Medication notes this encounter PREGABALIN 150 MG CAPSULE >> Alexandru Arce Ma 12/06/2018 9:18 AM >> ALEXANDRU ARCE MA Rosalva Dec 06, 2018 9:18 AM Take 3 times a day. OXYCODONE-ACETAMINOPHEN 5 MG-325 MG TABLET >> Alexandru Arce Ma 12/06/2018 9:17 AM >> ALEXANDRU ARCE MA Rosalva Dec 06, 2018 9:17 AM Take 3 times a day. Problem List As Of Date 12/06/2018 Noted Resolved REG ENTERITIS, LG INTEST [K50.10] INVALID FOR* Retention of urine, unspecified [R33.9] INVALID FOR*11/27/2018 Mixed hyperlipidemia [E78.2] INVALID FOR* Anemia, unspecified [D64.9] INVALID FOR*03/08/2012 LUMBAGO [M54.5] INVALID FOR* Nonspecific abnormal results of liver function *INVALID FOR*04/19/2011 More... Onychia and paronychia of toe [L03.039] INVALID FOR*02/18/2013 ILEOSTOMY STATUS [Z93.2] INVALID FOR* IMPAIRED GLUCOSE JUNE TEST [R73.09] INVALID FOR*04/16/2008 Type 2 diabetes mellitus treated with insulin (*INVALID FOR* Fibromyalgia [M79.7] INVALID FOR* More... Non-alcoholic fatty liver disease [K76.0] INVALID FOR* Mild dysplasia of cervix [N87.0] INVALID FOR*03/08/2012 Fibromyalgia [M79.7] 04/19/2011 Depression [F32.9] INVALID FOR*11/27/2018 Eczematous dermatitis: hands [L30.9] INVALID FOR*02/18/2013 Xerosis cutis [L85.3] INVALID FOR*02/18/2013 Atopic eczema [L20.9] INVALID FOR* Other psoriasis [L40.8] INVALID FOR* Contact dermatitis and other eczema, due to uns*INVALID FOR*01/03/2017 Hypoglycemia [E16.2] INVALID FOR*03/08/2012 Migraine headache without aura [G43.009] INVALID FOR* Recurrent cold sores [B00.1] INVALID FOR* Sprain of wrist, left [S63.502A] INVALID FOR*05/24/2018 Vitamin B12 deficiency [E53.8] INVALID FOR* Chronic rhinitis [J31.0] INVALID FOR* 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*INVALID FOR* 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] INVALID FOR* Vitreous floaters of both eyes [H43.393] INVALID FOR* Obesity, Class I, BMI 30-34.9 [E66.9] INVALID FOR* Pain in right shoulder [M25.511] INVALID FOR* Pain in left shoulder [M25.512] INVALID FOR* Bone loss [M89.8X9] INVALID FOR* Other instructions from your clinician: Patient Instructions: Trulicity 0.75 mg weekly. After 1 month increase to 1.5 mg weekly by using two of your 0.75 mg pens AND let us know that you need the 1.5 mg pen Side effects: nausea- should improve in 2 weeks, terrible vomiting or back pain - go to the hospital Stop Vish if approved for Trulicity Contact me if need to lower Lantus dose Bone density by April 2019 Vitamin D 2000 IU daily Table 1: Recommended Dietary Allowances (RDAs) for Calcium [1] Age Male Female Lactating 0?6 months* 200 mg 200 mg 7?12 months* 260 mg 260 mg 1?3 years 700 mg 700 mg 4?8 years 1,000 mg 1,000 mg 9?13 years 1,300 mg 1,300 mg 14?18 years 1,300 mg 1,300 mg 1,300 mg 1,300 mg 19?50 years 1,000 mg 1,000 mg 1,000 mg 1,000 mg 51?70 years 1,000 mg 1,200 mg 71+ years 1,200 mg 1,200 mg * Adequate Intake (AI) Sources of Calcium Food Milk, yogurt, and cheese are rich natural sources of calcium and are the major food contributors of this nutrient to people in the [place] [1]. Nondairy sources include vegetables, such as Ghanaian cabbage, kale, and broccoli. Spinach provides calcium, but its bioavailability is poor. Most grains do not have high amounts of calcium unless they are fortified; however, they contribute calcium to the diet because they contain small amounts of calcium and people consume them frequently. Foods fortified with calcium include many fruit juices and drinks, tofu, and cereals. Selected food sources of calcium are listed in Table 2. Table 2: Selected Food Sources of Calcium [2] Food Milligrams (mg) per serving Percent DV* Yogurt, plain, low fat, 8 ounces 415 42 Mozzarella, part skim, 1.5 ounces 333 33 Sardines, canned in oil, with bones, 3 ounces 325 33 Yogurt, fruit, low fat, 8 ounces 313?384 31?38 Cheddar cheese, 1.5 ounces 307 31 Milk, nonfat, 8 ounces 299 30 Soymilk, calcium-fortified, 8 ounces 299 30 Milk, reduced-fat (2% milk fat), 8 ounces 293 29 Milk, buttermilk, lowfat, 8 ounces 284 28 Milk, whole (3.25% milk fat), 8 ounces 276 28 Barre juice, calcium-fortified, 6 ounces 261 26 Tofu, firm, made with calcium sulfate, ? cup* * * 253 25 [place], pink, canned, solids with bone, 3 ounces 181 18 Cottage cheese, 1% milk fat, 1 cup 138 14 Tofu, soft, made with calcium sulfate, ? cup * * * 138 14 Crxuu-wc-pdm cereal, calcium-fortified, 1 cup 100?1,000 10?100 Frozen yogurt, vanilla, soft serve, ? cup 103 10 Turnip greens, fresh, boiled, ? cup 99 10 Kale, raw, chopped, 1 cup 100 10 Kale, fresh, cooked, 1 cup 94 9 Ice cream, vanilla, ? cup 84 8 Ghanaian cabbage, bok knight, raw, shredded, 1 cup 74 7 Bread, white, 1 slice 73 7 Pudding, chocolate, ready to eat, refrigerated, 4 ounces 55 6 Tortilla, corn, qxojs-uy-raur/packer, one 6 diameter 46 5 Tortilla, flour, bpfzh-pf-oxvt/packer, one 6 diameter 32 3 Sour cream, reduced fat, cultured, 2 tablespoons 31 3 Bread, whole-wheat, 1 slice 30 3 Broccoli, raw, ? cup 21 2 Cheese, cream, regular, 1 tablespoon 14 1 * DV = Daily Value. DVs were developed by the U.S. Food and Drug Administration to help consumers compare the nutrient contents among products within the context of a total daily diet. The DV for calcium is 1,000 mg for adults and children aged 4 years and older. Foods providing 20% of more of the DV are considered to be high sources of a nutrient, but foods providing lower percentages of the DV also contribute to a healthful diet. The U.S. Department of Agriculture?s (USDA?s) Nutrient Database Web site lists the nutrient content of many foods and provides comprehensive list of foods containing calcium arranged by nutrient content and by food name. Calcium content varies slightly by fat content; the more fat, the less calcium the food contains. * * * Calcium content is for tofu processed with a calcium salt. Tofu processed with other salts does not provide significant amounts of calcium. https://ods.od.nih.gov/factsheets/Calcium-HealthProfessional/ Downloaded September 2016 Thank you for choosing the [facility] Department of Endocrinology, Diabetes and Metabolism. Being able to provide excellent health care has allowed us to be # 3 in the country according to [employer]. Did you know that you need to call 48 hours in advance of your scheduled visit, if you are unable to make your appointment? [facility] thanks you for your commitment, because patients not showing to their appointment results in a lost opportunity for patients to receive world class health care at the [facility]. To Cancel an appointment, please choose one of the following: - Call the Appointment Call Center at [phone] - From [employer], Go to Appointments ? Cancel Appts If cancelling, consider your need to reschedule to prevent further delays in your care. To Schedule an appointment, please choose one of the following: - Call the Appointment Call Center at [phone] - From [employer], Go to Appointments ? Request an Appt + BONE MINERAL DENSITY PATIENT INSTRUCTIONS Bone mineral density testing measures the amount of calcium in certain parts of your bones. This information determines how strong your bones are. The test is used to detect osteoporosis, a disease in which the bone's mineral content and density are low, increasing a person's risk of fractures. The lumbar spine (lower back) and the hip are the skeletal sites usually examined. For the test, remember that: 1. You cannot take this test if you are . 2. Eat a normal diet on the day of the test. 3. Take your medications as you normally would. 4. DO NOT take calcium supplements (such as Tums) for 24 hours before the test. 5. On the day of the test, leave valuables (jewelry or credit cards) at home. 6. The test should be performed prior to oral, rectal or IV contrast studies, or at least 7 days after any of these studies. For the test, you may be asked to wear a hospital gown. You will lie on your back, on a padded table, in a comfortable position. Generally, you can resume your usual activities immediately. Visit Notes: >> Alexandru Arce Ma Rosalva Dec 06, 2018 9:16 AM Status: Signed Downloaded and printed data from patient's meter, provided data to clinician. Alexandru Arce Ma Prescriptions ordered this encounter Disp Refills Start End DULAGLUTIDE 0.75 MG/0.5 ML SUBCUTANE* 14 P* 1 12/06/2018 Route: SUBCUTANEOUS Sig: Inject 0.75 mg subcutaneously once each week. SITAGLIPTIN 50 MG TABLET 90 t* 0 12/06/2018 12/06/2018 Route: ORAL Sig: Take 1 tablet by mouth once daily. Medications Discontinued During This Encounter sitaGLIPtin (IA) 50 mg tablet 90 t* 2 06/19/2018 12/06/2018 Route: ORAL Sig: Take 1 tablet by mouth once daily. Disc: Reason for discontinue is not on file. sitaGLIPtin (JANUVIA) 50 mg tablet 90 t* 0 12/06/2018 12/06/2018 Route: ORAL Sig: Take 1 tablet by mouth once daily. Disc: Reason for discontinue is not on file. Disposition: Return in about 6 months (around 06/05/2019). Follow-up and Disposition History Recorded Encounter Status:Closed by MONY HARRISON MD on 12/06/18 PROGRESS Observed: 12/06/2018 Status: COMPLETED Source: [place] 8:17 AM [facility] [place] [facility] ID: [id number] Author: Sophy Harrison Service: (none) Author Type: Physician Type: Progress Notes Filed: 12/06/2018 11:11 AM Note Text: HISTORY Ms Vandana Lezama is a 42 year old female who comes in here for follow-up of Type 2 DM - retinal hole, +neuropathy from cervical problems Dyslipidemia and fatty liver- elevated liver enzymes Steroid injections Low bone mass DIABETES Diagnosed DM in 2006, was having reactive hypoglycemia History of diabetes medications: Metformin started first Januvia started 2011 Glyburide caused lows 50s Lantus Current diabetes medications: Lantus - 60 units at bedtime Metformin 1000 mg BID Januvia 50 mg daily (insurance not covering 100 mg dose) Average blood glucoses: brought meter, few readings PreB: 130-170 PreL PreD: >130 Bedtime Hypoglycemias: 1 epidose due to mising dinner, had BG around 87, symptoms of sweats, dizzy and disoriented Was on atorvastatin, stopped, wanting to go holistic, Using essic and dandelion, red yeast rice root Change in meals and exercise: walking in [place], is up and moving 2h daily 7 days a week, no changes in diet Had a fall 1 week ago, right side of body aches STEROIDS/BONE Has ileostomy bag Has Crohn's - no steroids for this, has ileostomy Last steroid exposure including injection September 27 2018, left hip BMD done in 04/2017 showed lowest Z score -2.3 Calcium intake in diet/supplements: Vitamin D intake: Vitamin D3 oral 2000 units 1x daily, multiviatim PMHx: Neg for pancreatitis Crohn's Ovarian cyst BARNES RA Fibromyalgia SocHx: Denies smoking. Occasional alcohol. 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 +frequency OVEN TENDER: ammenorhea, on ongoing BC MUSCULOSKELETAL: joint pain shoulders and hips b/l, Muscle ache on your right intercostal from recent fall SKIN: +eczema across chest, psoriasis flaring up again, no ulcers PSYCH: easily irritable, no anxiety HEMATOLOGY/LYMPHOLOGY: Negative for prolonged bleeding, swollen nodes. Bruises easily ENDOCRINE: See HPI NEURO: No headaches, no focal weakness/numbness Component Latest Ref Rng AND Units 01/23/2018 05/24/2018 08/30/2018 09/06/2018 11/26/2018 Protein, Total 6.3 - 8.0 g/dL 7.5 Albumin 3.9 - 4.9 g/dL 4.4 Calcium 8.5 - 10.2 mg/dL 9.8 10.2 Bilirubin, Total 0.2 - 1.3 mg/dL 0.3 Alkaline Phosphatase 34 - 123 U/L 136 (H) AST 13 - 35 U/L 70 (H) 69 (H) Glucose 74 - 99 mg/dL 161 (H) 309 (H) BUN 7 - 21 mg/dL 10 6 (L) Creatinine 0.58 - 0.96 mg/dL 0.54 (L) 0.61 Sodium 136 - 144 mmol/L 137 138 Potassium 3.7 - 5.1 mmol/L 3.9 4.1 Chloride 97 - 105 mmol/L 100 99 CO2 22 - 30 mmol/L 21 (L) 24 Anion Gap 9 - 18 mmol/L 16 15 ALT 7 - 38 U/L 86 (H) 93 (H) eGFR- >60 >60 eGFR-All Other Races . >60 >60 Cholesterol, Total <200 mg/dL 235 (H) 223 (H) Triglyceride <150 mg/dL 148 129 HDL Cholesterol >39 mg/dL 52 55 LDL Cholesterol <100 mg/dL 153 (H) 142 (H) Non HDL Cholesterol <130 mg/dL 183 (H) 168 (H) Fasting Time hrs 10 12 VLDL Cholesterol <30 mg/dL 30 (H) 26 TC:HDL Ratio <5.10 4.52 4.05 LDL:HDL Ratio <2.54 2.94 (H) 2.58 (H) Creatinine, Ur Random (UCRR) 20 - 300 mg/dL 81.5 269.5 Albumin, Urine Random 0.0 - 23.0 mg/L <12.0 51.7 (H) Albumin/Creat Ratio 0 - 30 mg/g Not calculated 19 Hemoglobin A1C 4.3 - 5.6 % 7.1 (H) Estimated Average Glucose mg/dL 157 Vitamin B12 232 - 1,245 pg/mL 932 Vitamin D 25 Hydroxy 31.0 - 80.0 ng/mL 32.3 Hemoglobin A1C (POCT) 4.2 - 5.6 % 7.5 (A) 8.1 (A) 04/21/2017 ?8:00 AM - Interface, Results In Impression IMPRESSION: THE LOWEST Z-SCORE IS: -2.3 DIAGNOSIS (based on BMD alone): ?Below that expected for age Caution: Medical conditions other than osteoporosis may cause low bone density, such as osteomalacia or renal osteodystrophy. ?Clinical correlation is necessary. FRACTURE RISK (based on BMD alone): ?May be increased Caution: Fracture risk may be increased independent of BMD in patients with corticosteroid use, age greater than 65 years, or a history of prior fragility fracture. FRACTURE RISK - FRAX 10-Year Probability of Fracture ?Hip Fracture: ?0.4 % ?Major Osteoporotic Fracture: ?4.0 % According to the National Osteoporosis Foundation (NOF), healthcare providers should consider FDA-approved medical therapies in postmenopausal women and men aged 50 years and older, based on the following: * ?A hip or vertebral (clinical or morphometric) fracture * ?T-score less than or equal to -2.5 at the femoral neck or spine after appropriate evaluation to exclude secondary causes * ?Low bone mass (T-score between -1.0 and -2.5 at the femoral neck or spine) AND a 10-year probability of a hip fracture greater than or equal to 3% OR a 10-year probability of a major osteoporosis-related fracture greater than or equal to 20% based on the [place]-adapted WHO FRAX algorithm in a previously untreated patient * ?Clinician's judgment and/or patient preferences may indicate treatment for people with 10-year fracture probabilities above or below these levels RECOMMENDATIONS All patients should consume adequate sources of calcium and vitamin D, as clinically indicated. ?The NOF supports the National Academy of Sciences recommendation that women older than age 50 consume at least 1,200 mg per day of calcium. ? Adults aged 19 to 70 years require at least 600 IU/day of vitamin D to maximize bone health. ?However, serum 25(OH)D should be maintained above 30 ng/mL, and 1500 to 2000 IU/day of vitamin D may be required. Weight bearing exercises and strength training should be considered. Smoking cessation, and moderation of intake of alcohol, caffeine and carbonated beverages are recommended. Follow-up in 2 years or as clinically indicated. ?Patients that are taking corticosteroids, are transplant recipients, or have hyperparathyroidism should have annual follow-up. ?Follow- up scans should always be done on the same machine for accurate comparison. Interpreted by: Pema Wright MS, , [facility], FACE FOR MORE INFORMATION: National Osteoporosis Foundation: ?www.nof.org International Society of Clinical Densitometry: ?www.iscd.org Senior Project Manager Engineering: [employer] ? Transcribe Date/Time: Apr ?7:43A Dictated by : PEMA WRIGHT MD This examination was interpreted and the report reviewed and electronically signed by: PEMA WRIGHT MD on Apr ?7:54AM ?EST Results-Findings * * *Final Report* * * DATE OF EXAM: Apr ?8:56AM ? M6B ? 5714 ?- ?BD AP SPINE/HIP -NB ?/ PROCEDURE REASON: calcium clinic - bone density ?? ? * * * * Physician Interpretation * * * * ?EXAM: DXA - ?BONE DENSITOMETRY ENDOCRINE CALCIUM CLINIC PATIENT DEMOGRAPHICS ?Age: 41, ?Race: C Gender: F ?Height: 152.4 cm, ? Weight: 76.7 Kg, BMI: 33.01 Kg/m2 SCANNER INFORMATION Model of DXA scanner: Human Demand Site of DXA scanner: [facility] Sites scanned: Lumbar spine, ?left hip Date of scan: 04-20-2017 Previous scan(s): 09-22-2014 RISK FACTORS FOR OSTEOPOROSIS AND ASSOCIATED FRACTURES REPORTED BY THE PATIENT Family history of osteoporosis in a first degree relative, ?Family history of a fragility fracture in a first degree relative, Current corticosteroid therapy, Type 2 Diabetes, ?Crohn's disease with ileostomy., ?Lactose intolerance. CURRENT THERAPY Calcium supplements TECHNICAL LIMITATIONS OF THIS DXA The greater trochanter may not have been positioned fully against the DXA table therefore the total hip BMD may be artificially low. 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 Mc, [facility] - Type II or unspecified type diabetes mellitus without mention of complication, not stated as uncontrolled PAST SURGICAL HISTORY Procedure Laterality Date - EPIDURAL multiple ones done by Dr. Beckett, last one in 04/2011 - KNEE SCOPE,DIAGNOSTIC 1989 Arthroscopy, knee, left - OP BRONCHOS DIAG, W/WO WASHING January 2007 Bronchoscopy - PAST SURGICAL HISTORY OF 06/2000 ILEOSTOMY/COLECTOMY - PAST SURGICAL HISTORY OF 1993 CRYOCAUTERY/ MILD DYSPLASIA - PAST SURGICAL HISTORY OF March 2006 Abdominal abscess with anal fistula - PROCTECTOMY,COMPL,COLECTOMY,BX'S 2006 AP endoanal proctectomy - REMOVAL ADENOIDS,PRIMARY,<12 Y/O as child Adenoidectomy - REMOVAL OF TONSILS,<12 Y/O AGE 11 Tonsillectomy Social History Substance Use Topics - Smoking status: Former Smoker Packs/day: 1.00 Years: 16.00 Types: Cigarettes Quit date: 12/04/2006 - Smokeless tobacco: Never Used - Alcohol use No FAMILY HISTORY Problem Relation Age of Onset - Alcohol/Drug Mother - Hypertension Mother COPD - other (vascular disease) Mother - Alcohol/Drug Father - Cancer Father liver - Diabetes Maternal Grandmother - Stroke Maternal Grandmother - Heart Maternal Grandmother - Diabetes Paternal Grandfather - Emphysema Paternal Grandmother Current Outpatient Prescriptions: SUMAtriptan (IMITREX) 50 mg tablet Take one(1) tablet daily as needed, at headache onset. Repeat in two(2) hours if needed. RED YEAST RICE ORAL Take 1 capsule by mouth twice daily. doxycycline (VIBRA-TABS) 100 mg tablet Take 1 tablet by mouth twice daily for 10 days. fluticasone (FLONASE) 50 mcg/actuation nasal spray Use 2 Sprays in each nostril once daily. pregabalin (LYRICA) 150 mg capsule Take 1 capsule by mouth twice daily for 90 days. insulin glargine (LANTUS SOLOSTAR U-100 INSULIN) 100 unit/mL (3 mL) inpn Inject 60 Units subcutaneously daily at bedtime. Norethindrone, Contraceptive, (ORTHO MICRONOR) 0.35 mg tablet Take 1 tablet by mouth once daily. blood sugar diagnostic (BLOOD GLUCOSE TEST) test strip Test blood sugar(s) 2 times daily. Dx: Type 2 DM - Controlled E11.9 Insulin: No, Accu-check brand covered by insurance Lancets (ACCU-CHEK MULTICLIX LANCET) lancets Test blood sugar(s) 2 times daily. Dx: Type 2 DM - Controlled E11.9 Insulin: No Blood-Glucose Meter, Drum-type (ACCU-CHEK COMPACT PLUS CARE) kit Accu-Check Compact Plus Meter Diagnosis: Type 2 DM - Controlled E11.9 metFORMIN (GLUCOPHAGE) 1,000 mg tablet Take 1 tablet by mouth twice daily. ranitidine (ZANTAC) 150 mg tablet Take 1 tablet by mouth twice daily as needed. cetirizine (ZYRTEC) 10 mg tablet Take 1 tablet by mouth once daily. sitaGLIPtin (JANUVIA) 50 mg tablet Take 1 tablet by mouth once daily. Insulin [place], Disposable, (BD ULTRA-FINE DIANNE PEN NEEDLE) 32 gauge x /32 ndle Use once a day ammonium lactate (LAC-HYDRIN) 12 % cream Apply 1-2x a day for dry areas acidophilus-pectin, citrus (ACIDOPHILUS PROBIOTIC) 100 million cell-10 mg cap Take 1 cap daily COMPOUNDED PRESCRIPTION 1. V44.2 Ileostomy status ([facility]) (primary diagnosis)2. 555.1 Regional enteritis of large intestine ([facility])Ileostomy Supplies. 1. Pouches, 2. Planges, 3. Felipe seals, 4. Stoma adhesive, 5. Stoma powder, 6. Skin preps, 7. Adhesive remover wipes. Dispense 1 year supplies. oxyCODONE-acetaminophen (PERCOCET) 5-325 mg tablet Take 1 tablet by mouth every 8 hours as needed. tizanidine (ZANAFLEX) 4 mg ORAL tablet Take by mouth. . Takes 1 tablet at bedtime. COMPOUNDED PRESCRIPTION CAVILON no-sting barrier film. Prod# 3343 made by [employer] No current facility-administered medications for this visit. ALLERGIES Allergen Reactions - Dilaudid [Hydromorp* Swelling migraines - Levemir [Insulin De* Other: See Comments Urine turned dark and smelly - Methadone Swelling migraine - Morphine Swelling migraines - Remicade [Inflixima* Intolerance broke out in blisters with the 6th dose. - Ultram [Tramadol Hc* Swelling migraines PHYSICAL EXAMINATION BP 108/80 Pulse 85 Wt 80.1 kg (176 lb 8 oz) BMI 35.05 kg/m? Body mass index is 35.05 kg/m?. GENERAL: not in distress, well-appearing HEENT: anicteric sclerae, non-injected conjunctivae NECK: supple, thyroid normal, no lymphadenopathy HEART: regular rate and rhythm, no murmur CHEST: no lesions, clear to auscultation GASTROINTESTINAL: abdomen soft, non-tender GENITOURINARY: Not examined EXTREMITIES: no edema, no tremors, Feet: Shoes and socks removed, normal distal pulses, sensitive to 10 gm monofilament and calluses medial hallux, diffuse dryness on plantar feet MUSCULOSKELETAL: no deformities, no fasciculations SKIN: dry, no cyanosis NEUROLOGIC: alert, oriented ASSESSMENT/PLAN Type 2 diabetes, uncontrolled Dyslipidemia Fatty liver - since 17 y/o Chronic intermittent steroid use Bone loss Check BGs twice a day, different times of day Lantus - 60 units at bedtime, will decrease if she has hypoglycemic episodes Discussed GLP-1 agonist, Trulicity 0.75 mg pen 1x weekly, increase to 2 pens weekly in 1 month. Continue metformin Continue Januvia - will stop when she starts her Trulicity Diabetes health maintenance record reviewed. Hypoglycemia prevention, recognition and treatment reviewed Not wanting to take statin, wants to go holistic Bone health: Calcium intake - calcium rich food list provided Continue vitamin D 2000 units daily Labs Annual DM -done 08/2018 BMD BONE DENSITY - ordered for 04/2019 Follow-up 6 months Contact us sooner if with concerns Follow-up with primary care physician for other medical issues. Hemant Gunter DPM PGY1 December 06, 2018 10:44 AM STAFF TEACHING ADDENDUM I have reviewed the progress note obtained and documented by Dr. Gunter and I personally participated in the rodriguez components. I have discussed the case and management of the patient's care with Dr. Gunter. I have edited the note as needed. In addition: Based on the history I obtained, last steroid injection Sep 2018 Symptoms at BG 87 Neg h/o pancreatitis Neg fam hx of thyroid CA On my exam, well-appearing,reddish cheeks (not new) Assessment and Plan: as noted above post discussion with the resident/fellow. Discussed GLP-1 agonist s/e n/v, rare MTC and pancreatitis, when to seek medical attention Trulicity as above Contact us if with hypoglycemia to adjust insulin Calcium-rich foods - list given eTmi Harrison M.D., M.P.H. December 06, 2018 11:09 AM ORTHOPEDIC VISIT Observed: 12/05/2018 Status: F Source: [place] REPORT 11:27 AM [facility] [place] REPOSITORY [facility] [address] [place] [address] OFFICE VISIT Date of Service: 12/05/18 MR#: [id number] Acct: [id number] Name: VANDANA LEZAMA Rep #: [id number] : 1975 Provider: PATRICIO Mckeon Age/Sex: 42/F Location: [facility] [place] [place]: Signed Intake Intake Visit Reasons: bilateral shoulders Is patient in pain?: Yes Allergies infliximab [From Remicade] Allergy (Verified 12/05/18 09:48) Rash morphine Allergy (Verified 12/05/18 09:48) Swelling Medications Metformin HCl [Glucophage] 1,000 mg PO BIDCM 03/06/17 [History Confirmed 08/14/18] Ranitidine [Zantac] 150 mg PO BID PRN 03/06/17 [History Confirmed 08/14/18] Sitagliptin Phosphate [Januvia] 50 mg PO DAILY 03/06/17 [History Confirmed 08/14/18] Tizanidine HCl [Zanaflex] 1 - 2 tab PO BID 03/06/17 [History Confirmed 08/14/18] oxycodone-acetaminophen 5 mg-325 mg tablet 1 tab PO TID 06/28/18 [History Confirmed 08/14/18] norethindrone (contraceptive) 0.35 mg tablet 0.35 mg PO DAILY 09/20/18 [History Confirmed 09/20/18] PFSH Social History Smoking Status: Former smoker HPI bilateral shoulders: Details: VANDANA LEZAMA is a 42 year old F here today for bilateral shoulder pain, left greater than right. Patient notes that she has pain over her superior shoulder with range of motion. Patient has good range of motion. She had an injection on 09/30/18 which was helpful for a few months. Patient completed physical therapy which was not helpful. Patient had an MRI previously in 2017. Denies numbness, tingling or other associated symptoms. ROS Const Reports system reviewed and no additional complaints, except as docu Eyes Reports system reviewed and no additional complaints, except as docu ENT Reports system reviewed and no additional complaints, except as docu Card Reports system reviewed and no additional complaints, except as docu Resp Reports system reviewed and no additional complaints, except as docu GI Reports system reviewed and no additional complaints, except as docu Reports system reviewed and no additional complaints, except as docu Musc Reports joint pain Skin/Breast Reports system reviewed and no additional complaints, except as docu Neuro Yes system reviewed and no additional complaints, except as docu Psych Reports system reviewed and no additional complaints, except as docu Endo Reports system reviewed and no additional complaints, except as docu Ortho Exam Right Shoulder Skin/Wound: No ecchymosis Testing: Positive Neer's, Speed's, TTP Biceps, AROM-Forward Elevation 0-180 and AROM-External Rotation at side 0-60; negative Hawkin's, TTP AC Joint, Apprehension Test or empty can Internal Rotation: T12 SHOULDER: Patient has no evident abnormalities on inspection of the right shoulder. She has no localized or generalized swelling. She has no ecchymosis/bruising, erythema or other skin changes noted. Patient has full forward elevation, full abduction, and full external rotation. She is a very slight decrease in internal rotation compared to the left shoulder at the same time she claims is because she had a recent fall and has pains in her ribs which is limiting her motion. She has strength that is comparable to the left shoulder. She does have a positive Neer impingement sign at the same time does not really have any pains with Hester. She does have a positive speeds test and tender with biceps. She has no apprehension or translation. Left Shoulder Testing: No Neer's, Yes Hawkin's, Yes Speed's, Yes TTP Biceps, No TTP AC Joint, No Drop Arm, Yes AROM-Forward Elevation 0-180, Yes AROM-External Rotation at side 0-60, No Apprehension Test, No translation, No empty can Internal Rotation: Tip of Scapula SHOULDER: Patient has no evident abnormalities on inspection of the right shoulder. She has no localized or generalized swelling. She has no ecchymosis/bruising, erythema or other skin changes noted. Patient has full forward elevation, full abduction, and full external rotation. Internal rotation is normal at the tip of the scapula and a little better on the left side compared to the left. She has strength that is comparable to the right shoulder. The shoulder is a little different in that she has a positive Hester sign but a negative Neer impingement sign on the side. She does have tenderness of the biceps and a positive Speed sign. She has no apprehension or translation. Assessment AND Plan Problems 1. Impingement syndrome of both shoulders M75.41; M75.42 Plan At this time patient has had problems with her shoulders for a few years now. She did have an MRI back in 2017 as well as previous x-rays. She has undergone physical therapy and has had injections to both of her shoulders. She states that the injections at this point are lasting maybe a month and a half. I did discuss that today she is too early to have injections as it is only been 2 months especially with her being diabetic. We did discuss arthroscopic shoulder surgery which for her looks like would be a subacromial decompression, acromioplasty, and synovectomy. At this time patient states she would at least like to have an option for arthroscopic procedure of the shoulders. The left shoulder is worse than the right and that would be the one that we would start with. It has been 2 years since her last MRI and therefore we are going to update the MRI at this time and have her come back in to review that MRI with our surgeon here. As discussed above there does not appear to be any indications of rotator cuff rupture or labral involvement. Once patient has a date of MRI she is to call the office to get a follow-up appointment to review that. At this time all questions were answered to patient's satisfaction. This note was generated with [employer] software. It may contain incorrect words, spelling, and punctuation that were not noted in checking the note before signing. Orders Orders: Coding Level of Care Code Off vis,est,level 3 Diagnoses Impingement syndrome of both shoulders M75.41; M75.42 12/05/18 1127 <Electronically signed by Shad CURRY> Date Shad CURRY Cosigner Signature: Date (if applicable) CC: URINE DRUG SCREEN Collected: 12/04/2018 Status: F Source: [place] ([place]) 11:36 AM [facility] [place] REPOSITORY Order Comment: Comments: [id number];URINE TOX;RUN LOWEST TEST List of Drugs Taken or Suspected? UNK TYPE CODE TESTS RESULT OUT OF RANGE REFERENCE UNITS LAB L505.0075 TO BE Normal CONFIRMED Result Comment: CONFIRMATORY TESTING FOR ALL POSITIVE URINE DRUG SCREEN RESULTS WILL ONLY BE SENT OUT UPON PHYSICIAN ORDER. VISTA Urine Drug Screen methods provide only preliminary analytical test results. A more specific alternate chemical method must be used in order to obtain a confirmed analytical result. Gas chromatography/mass spectrometery (GC/MS) is the preferred confirmatory method. Clinical consideration and professional judgement should be applied to any drug of abuse test result, particularly when preliminary positive results are used. URINE TCA TESTING MUST BE ORDERED SEPARATELY. USE TEST MNEMONIC: [facility] LAB L505.5005 VISTA UDS PH 5 Normal LAB L505.5015 <1000 ng/mL AMPHETAMINES Normal NEGATIVE LAB L505.5025 < 200 ng/mL BARBITIURATES Normal NEGATIVE LAB L505.5035 < 200 ng/mL BENZODIAZIPINE Normal NEGATIVE LAB L505.5045 < 300 ng/mL COCAINE Normal NEGATIVE LAB L505.5055 < 500 ng/mL ECSTACY Normal NEGATIVE LAB L505.5065 < 300 ng/mL METHADONE Normal NEGATIVE LAB L505.5075 < 300 High ng/mL OPIATES POSITIVE LAB L505.5085 < 25 ng/mL PCP Normal NEGATIVE LAB L505.5095 < 50 ng/mL THC Normal NEGATIVE Performed By: #### L505.5000 #### [facility] [address] [place] [place], [address] XR RIB/CHST 3V AP Observed: 11/29/2018 Status: F Source: AN RIB/OBL/CHST R 3:28 PM [facility] * * *Final Report* * * DATE OF EXAM: Nov 29 2018 3:28PM WOX [id number] - XR RIB/CHST 3V AP RIB/OBL/CHST R / PROCEDURE REASON: Rib pain on right side * * * * Physician Interpretation * * * * EXAMINATION: XR RIB/CHST 3V AP RIB/OBL/CHST R HISTORY: pt states [place] to [place] and fell pain in lower lateral right side marked by a bb Rib pain on right side . TECHNIQUE: XR RIB/CHST 3V AP RIB/OBL/CHST R Laterality: RIGHT Number of different views (projections): 3 M: XB_1 COMPARISON: There are no prior rib series for comparison. Comparison is made to 2 view chest dated and May 2010 RESULT: Frontal radiograph of the chest and dedicated views of the right ribs show no evidence of pneumothorax, hemothorax or pulmonary contusion. The visualized bony structures are intact without apparent displaced or nondisplaced rib fracture. IMPRESSION: Negative ribs. Senior Project Manager Engineering: SANTOS Transcribe Date/Time: Nov 29 2018 3:34P Dictated by : RONALDO CARR MD This examination was interpreted and the report reviewed and electronically signed by: RONALDO CARR MD on Nov 29 2018 3:35PM EST [id number] Observed: 11/29/2018 Status: COMPLETED Source: [place] 3:16 PM [facility] REPOSITORY HNO ID: [id number] Author: Ceasar Song (Rt) Service: (none) Author Type: Buffer Operator Type: Progress Notes Filed: 11/29/2018 3:28 PM Note Text: Radiology Service Progress Note PATIENT NAME: Vandana Lezama DATE OF SERVICE: November 29, 2018 TIME: 3:16 PM PATIENT IDENTITY VERIFICATION COMPLETED USING TWO (2) METHODS: Patient confirmed name verbally and Date of . PATIENT GENDER DATA: Female. status: : No status: NO. PATIENT RELEVANT IMPLANT DATA REVIEWED: Not Applicable RADIOLOGY DEPARTMENT: General X-ray: Exam(s) Completed: Rib X-Ray: Right PERIPHERAL IV DATA: Not applicable SIGNED BY: RT Duncan November 29, 2018 3:16 PM PROGRESS Observed: 11/29/2018 Status: COMPLETED Source: [place] 3:07 PM [facility] REPOSITORY HNO ID: [id number] Author: [facility]Santa [facility] Service: (none) Author Type: Nurse Practitioner Type: Progress Notes Filed: 11/29/2018 3:52 PM Note Text: Subjective HPI Vandana Lezama is a 42 year old female who presents with right rib cage pain, she fell in the [place], her foot got stuck and she tripped. She rates her rib pain a 4/10. She denies shortness of breath but states it hurts with a deep breath. She denies striking her chest on any object, but states her right ribs started hurting immediately following the fall. Review of Systems Constitutional: Negative. Negative for fever. Musculoskeletal: Positive for falls. Skin: Negative. Negative for rash. BP 136/82 Pulse 95 Temp 36.4 ?C (97.5 ?F) (Left Tympanic) Resp 16 Wt 79.1 kg (174 lb 6.4 oz) SpO2 96% BMI 34.64 kg/m? 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 - Crohn's disease (HCC) - Diabetes 01/31/2008 - Dysthymic disorder Depression (non-psychotic) - Ileostomy status ([facility]) 09/28/2007 - Lumbago 01/10/2007 - Myalgia and myositis, unspecified Pain management Dr Stern - Nonalcoholic fatty liver disease 08/24/2007 - Other and unspecified hyperlipidemia 01/10/2007 - PMH - PAST MEDICAL HISTORY OF Cx scarred to post vag wall/difficult exam - Pneumonia, organism unspecified(486) 01/10/2007 - Regional enteritis of large intestine (HCC) 08/07/2006 - Retention of urine, unspecified 01/01/2007 - Rheumatoid arthritis(714.0) Dr. Mc, [facility] - Type II or unspecified type diabetes mellitus without mention of complication, not stated as uncontrolled PAST SURGICAL HISTORY Procedure Laterality Date - EPIDURAL multiple ones done by Dr. Beckett, last one in 04/2011 - KNEE SCOPE,DIAGNOSTIC 1989 Arthroscopy, knee, left - OP BRONCHOS DIAG, W/WO WASHING January 2007 Bronchoscopy - PAST SURGICAL HISTORY OF 06/2000 ILEOSTOMY/COLECTOMY - PAST SURGICAL HISTORY OF 1993 CRYOCAUTERY/ MILD DYSPLASIA - PAST SURGICAL HISTORY OF March 2006 Abdominal abscess with anal fistula - PROCTECTOMY,COMPL,COLECTOMY,BX'S 2006 AP endoanal proctectomy - REMOVAL ADENOIDS,PRIMARY,<12 Y/O as child Adenoidectomy - REMOVAL OF TONSILS,<12 Y/O AGE 11 Tonsillectomy ALLERGIES Dilaudid [Hydromorphone (Bulk)]; Levemir [Insulin Detemir]; Methadone; Morphine; Remicade [Infliximab]; Ultram [Tramadol Hcl] MEDICATIONS SUMAtriptan (IMITREX) 50 mg tablet Take one(1) tablet daily as needed, at headache onset. Repeat in two(2) hours if needed. RED YEAST RICE ORAL Take 1 capsule by mouth twice daily. doxycycline (VIBRA-TABS) 100 mg tablet Take 1 tablet by mouth twice daily for 10 days. fluticasone (FLONASE) 50 mcg/actuation nasal spray Use 2 Sprays in each nostril once daily. pregabalin (LYRICA) 150 mg capsule Take 1 capsule by mouth twice daily for 90 days. insulin glargine (LANTUS SOLOSTAR U-100 INSULIN) 100 unit/mL (3 mL) inpn Inject 60 Units subcutaneously daily at bedtime. Norethindrone, Contraceptive, (ORTHO MICRONOR) 0.35 mg tablet Take 1 tablet by mouth once daily. blood sugar diagnostic (BLOOD GLUCOSE TEST) test strip Test blood sugar(s) 2 times daily. Dx: Type 2 DM - Controlled E11.9 Insulin: No, Accu-check brand covered by insurance Lancets (ACCU-CHEK MULTICLIX LANCET) lancets Test blood sugar(s) 2 times daily. Dx: Type 2 DM - Controlled E11.9 Insulin: No Blood-Glucose Meter, Drum-type (ACCU-CHEK COMPACT PLUS CARE) kit Accu-Check Compact Plus Meter Diagnosis: Type 2 DM - Controlled E11.9 metFORMIN (GLUCOPHAGE) 1,000 mg tablet Take 1 tablet by mouth twice daily. ranitidine (ZANTAC) 150 mg tablet Take 1 tablet by mouth twice daily as needed. cetirizine (ZYRTEC) 10 mg tablet Take 1 tablet by mouth once daily. sitaGLIPtin (JANUVIA) 50 mg tablet Take 1 tablet by mouth once daily. Insulin [place], Disposable, (BD ULTRA-FINE DIANNE PEN NEEDLE) 32 gauge x 5/32 ndle Use once a day ammonium lactate (LAC-HYDRIN) 12 % cream Apply 1-2x a day for dry areas acidophilus-pectin, citrus (ACIDOPHILUS PROBIOTIC) 100 million cell-10 mg cap Take 1 cap daily COMPOUNDED PRESCRIPTION 1. V44.2 Ileostomy status (HCC) (primary diagnosis)2. 555.1 Regional enteritis of large intestine (HCC)Ileostomy Supplies. 1. Pouches, 2. Planges, 3. Felipe seals, 4. Stoma adhesive, 5. Stoma powder, 6. Skin preps, 7. Adhesive remover wipes. Dispense 1 year supplies. oxyCODONE-acetaminophen (PERCOCET) 5-325 mg tablet Take 1 tablet by mouth every 8 hours as needed. tizanidine (ZANAFLEX) 4 mg ORAL tablet Take by mouth. . Takes 1 tablet at bedtime. COMPOUNDED PRESCRIPTION CAVILON no-sting barrier film. Prod# [id number] made by [employer] FAMILY HISTORY Problem Relation Age of Onset - Alcohol/Drug Mother - Hypertension Mother COPD - other (vascular disease) Mother - Alcohol/Drug Father - Cancer Father liver - Diabetes Maternal Grandmother - Stroke Maternal Grandmother - Heart Maternal Grandmother - Diabetes Paternal Grandfather - Emphysema Paternal Grandmother Social History Substance Use Topics - Smoking status: Former Smoker Packs/day: 1.00 Years: 16.00 Types: Cigarettes Quit date: 12/04/2006 - Smokeless tobacco: Never Used - Alcohol use No Objective Physical Exam Constitutional: She is well-developed, well-nourished, and in no distress. HENT: Head: Normocephalic. Eyes: Conjunctivae are normal. Cardiovascular: Normal rate and regular rhythm. Pulmonary/Chest: Effort normal and breath sounds normal. No respiratory distress. She has no wheezes. She has no rales. She exhibits tenderness (right mid axillay rib region). Skin: Skin is warm and dry. No rash noted. Nursing note and vitals reviewed. ASSESSMENT/PLAN: 1. Rib pain on right side - ICD9: 786.50, ICD10: R07.81 - following a fall - XR RIBS/CHEST 3V AP RIB/OBLS/CXR RT. My reading: negative. Radiologist RESULT: Frontal radiograph of the chest and dedicated views of the right ribs show no evidence of pneumothorax, hemothorax or pulmonary contusion. The visualized bony structures are intact without apparent displaced or nondisplaced rib fracture. Impression IMPRESSION: Negative ribs. Dictated by : RONALDO CARR MD - ICE APPLICATION - COUGH AND DEEP BREATHING EXERCISES RECOMMENDED - Follow-up with your PCP in 3-5 days if symptoms have not improved or sooner if symptoms worsen - Discussed red flags and need for immediate medical evaluation if any occur. - Discussed supportive care treatment with fluids, rest and analgesia. - Discussed expected course of illness GITA GaryOV Observed: 11/29/2018 Status: COMPLETED Source: [place] 3:00 PM [facility] REPOSITORY Office Visit (WSTR) VANDANA LEZAMA ([id number]) 1975 F Date Time Provider Department 11/29/18 3:00 PM ISI FAGAN (LORI) [facility] During your visit today, we recorded the following information about you: Temperature Pulse Respiration Blood pressure 97.5 degrees 95/minute 16/minute 136/82 Weight 79.1 kg Isi Fagan APRN.CNP 11/29/2018 3:52 PM Signed Subjective HPI Vandana Braydon Teja is a 42 year old female who presents with right rib cage pain, she fell [place], her foot got stuck and she tripped. She rates her rib pain a 4/10. She denies shortness of breath but states it hurts with a deep breath. She denies striking her chest on any object, but states her right ribs started hurting immediately following the fall. Review of Systems Constitutional: Negative. Negative for fever. Musculoskeletal: Positive for falls. Skin: Negative. Negative for rash. BP 136/82 Pulse 95 Temp 36.4 ?C (97.5 ?F) (Left Tympanic) Resp 16 Wt 79.1 kg (174 lb 6.4 oz) SpO2 96% BMI 34.64 kg/m? 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 Mc, [facility] - Type II or unspecified type diabetes mellitus without mention of complication, not stated as uncontrolled PAST SURGICAL HISTORY Procedure Laterality Date - EPIDURAL multiple ones done by Dr. Beckett, last one in 04/2011 - KNEE SCOPE,DIAGNOSTIC 1989 Arthroscopy, knee, left - OP BRONCHOS DIAG, W/WO WASHING January 2007 Bronchoscopy - PAST SURGICAL HISTORY OF 06/2000 ILEOSTOMY/COLECTOMY - PAST SURGICAL HISTORY OF 1993 CRYOCAUTERY/ MILD DYSPLASIA - PAST SURGICAL HISTORY OF March 2006 Abdominal abscess with anal fistula - PROCTECTOMY,COMPL,COLECTOMY,BX'S 2006 AP endoanal proctectomy - REMOVAL ADENOIDS,PRIMARY,<12 Y/O as child Adenoidectomy - REMOVAL OF TONSILS,<12 Y/O AGE 11 Tonsillectomy ALLERGIES Dilaudid [Hydromorphone (Bulk)]; Levemir [Insulin Detemir]; Methadone; Morphine; Remicade [Infliximab]; Ultram [Tramadol Hcl] MEDICATIONS SUMAtriptan (IMITREX) 50 mg tablet Take one(1) tablet daily as needed, at headache onset. Repeat in two(2) hours if needed. RED YEAST RICE ORAL Take 1 capsule by mouth twice daily. doxycycline (VIBRA-TABS) 100 mg tablet Take 1 tablet by mouth twice daily for 10 days. fluticasone (FLONASE) 50 mcg/actuation nasal spray Use 2 Sprays in each nostril once daily. pregabalin (LYRICA) 150 mg capsule Take 1 capsule by mouth twice daily for 90 days. insulin glargine (LANTUS SOLOSTAR U-100 INSULIN) 100 unit/mL (3 mL) inpn Inject 60 Units subcutaneously daily at bedtime. Norethindrone, Contraceptive, (ORTHO MICRONOR) 0.35 mg tablet Take 1 tablet by mouth once daily. blood sugar diagnostic (BLOOD GLUCOSE TEST) test strip Test blood sugar(s) 2 times daily. Dx: Type 2 DM - Controlled E11.9 Insulin: No, Accu-check brand covered by insurance Lancets (ACCU-CHEK MULTICLIX LANCET) lancets Test blood sugar(s) 2 times daily. Dx: Type 2 DM - Controlled E11.9 Insulin: No Blood-Glucose Meter, Drum-type (ACCU-CHEK COMPACT PLUS CARE) kit Accu-Check Compact Plus Meter Diagnosis: Type 2 DM - Controlled E11.9 metFORMIN (GLUCOPHAGE) 1,000 mg tablet Take 1 tablet by mouth twice daily. ranitidine (ZANTAC) 150 mg tablet Take 1 tablet by mouth twice daily as needed. cetirizine (ZYRTEC) 10 mg tablet Take 1 tablet by mouth once daily. sitaGLIPtin (JANUVIA) 50 mg tablet Take 1 tablet by mouth once daily. Insulin [place], Disposable, (BD ULTRA-FINE DIANNE PEN NEEDLE) 32 gauge x 32 ndle Use once a day ammonium lactate (LAC-HYDRIN) 12 % cream Apply 1-2x a day for dry areas acidophilus-pectin, citrus (ACIDOPHILUS PROBIOTIC) 100 million cell-10 mg cap Take 1 cap daily COMPOUNDED PRESCRIPTION 1. V44.2 Ileostomy status (HCC) (primary diagnosis)2. 555.1 Regional enteritis of large intestine ([facility])Ileostomy Supplies. 1. Pouches, 2. Planges, 3. Felipe seals, 4. Stoma adhesive, 5. Stoma powder, 6. Skin preps, 7. Adhesive remover wipes. Dispense 1 year supplies. oxyCODONE-acetaminophen (PERCOCET) 5-325 mg tablet Take 1 tablet by mouth every 8 hours as needed. tizanidine (ZANAFLEX) 4 mg ORAL tablet Take by mouth. . Takes 1 tablet at bedtime. COMPOUNDED PRESCRIPTION CAVILON no-sting barrier film. Prod# [id number] made by 3M FAMILY HISTORY Problem Relation Age of Onset - Alcohol/Drug Mother - Hypertension Mother COPD - other (vascular disease) Mother - Alcohol/Drug Father - Cancer Father liver - Diabetes Maternal Grandmother - Stroke Maternal Grandmother - Heart Maternal Grandmother - Diabetes Paternal Grandfather - Emphysema Paternal Grandmother Social History Substance Use Topics - Smoking status: Former Smoker Packs/day: 1.00 Years: 16.00 Types: Cigarettes Quit date: 12/04/2006 - Smokeless tobacco: Never Used - Alcohol use No Objective Physical Exam Constitutional: She is well-developed, well-nourished, and in no distress. HENT: Head: Normocephalic. Eyes: Conjunctivae are normal. Cardiovascular: Normal rate and regular rhythm. Pulmonary/Chest: Effort normal and breath sounds normal. No respiratory distress. She has no wheezes. She has no rales. She exhibits tenderness (right mid axillay rib region). Skin: Skin is warm and dry. No rash noted. Nursing note and vitals reviewed. ASSESSMENT/PLAN: 1. Rib pain on right side - ICD9: 786.50, ICD10: R07.81 - following a fall - XR RIBS/CHEST 3V AP RIB/OBLS/CXR RT. My reading: negative. Radiologist RESULT: Frontal radiograph of the chest and dedicated views of the right ribs show no evidence of pneumothorax, hemothorax or pulmonary contusion. The visualized bony structures are intact without apparent displaced or nondisplaced rib fracture. Impression IMPRESSION: Negative ribs. Dictated by : RONALDO CARR MD - ICE APPLICATION - COUGH AND DEEP BREATHING EXERCISES RECOMMENDED - Follow-up with your PCP in 3-5 days if symptoms have not improved or sooner if symptoms worsen - Discussed red flags and need for immediate medical evaluation if any occur. - Discussed supportive care treatment with fluids, rest and analgesia. - Discussed expected course of illness GITA Gary APRN.CNP 11/29/2018 3:45 PM Signed ASSESSMENT/PLAN: 1. Rib pain on right side - ICD9: 786.50, ICD10: R07.81 - following a fall - XR RIBS/CHEST 3V AP RIB/OBLS/CXR RT. My reading: negative. Radiologist RESULT: Frontal radiograph of the chest and dedicated views of the right ribs show no evidence of pneumothorax, hemothorax or pulmonary contusion. The visualized bony structures are intact without apparent displaced or nondisplaced rib fracture. Impression IMPRESSION: Negative ribs. Dictated by : RONALDO CARR MD - ICE APPLICATION - COUGH AND DEEP BREATHING EXERCISES RECOMMENDED - Follow-up with your PCP in 3-5 days if symptoms have not improved or sooner if symptoms worsen - Discussed red flags and need for immediate medical evaluation if any occur. - Discussed supportive care treatment with fluids, rest and analgesia. - Discussed expected course of illness Isi Fagan APRN.HEEL VARNISHER CONTUSIONS GENERAL INFORMATION: A contusion, or bruise, is caused by an injury that does not break the skin. Bleeding under the skin causes it to look black and blue. It may take 2 or 3 weeks for the bruising to disappear. INSTRUCTIONS: 1. You may continue your normal daily activities as tolerated. Rest the injured area as much as possible. 2. Apply ice to the injury for 15 minutes each hour (while awake) for the first two days. Put the ice in a plastic bag and place a thin towel between the bag of ice and your skin. 3. After the first 1 to 2 days, you may apply heat to the injury to help relieve pain. You may use a warm heating pad, whirlpool bath, or warm moist towels for 15-20 minutes every hour (while awake) for 48 hours. 4. You may use medicines for pain such as acetaminophen, ibuprofen or aspirin (unless otherwise instructed by your physician). CONTACT YOUR DOCTOR OR RETURN TO THE ED IF: 1. Your pain becomes worse. 2. You develop a temperature over 101 F (38.3 C). 3. The swelling increases greatly in the area of the bruise. 4. Redness or lines of redness develop in the area of the bruise. Referring Provider: SELF [[id number]] Allergies As of Date: 11/29/2018 Noted Allergy Reaction DILAUDID (HYDROMORPHONE (BULK)) 08/07/2006 7 - Swelling Comments: migraines LEVEMIR (INSULIN DETEMIR) 02/17/2014 14 - Other: See Comments Comments: Urine turned dark and smelly METHADONE 11/04/2013 7 - Swelling Comments: migraine MORPHINE 08/07/2006 7 - Swelling Comments: migraines REMICADE (INFLIXIMAB) 08/08/2006 5 - Intolerance Comments: broke out in blisters with the 6th dose. ULTRAM (TRAMADOL HCL) 04/07/2009 7 - Swelling Comments: migraines Date Reviewed: 11/29/2018 Reviewed by: Isi ([facility]) Rylan - Fully Assessed Reason for Visit: Fall [218] Cmt: rib pain x today Primary Visit Diagnosis:Rib pain on right side [R07.81] Order(s):XR RIBS/CHEST 3V AP RIB/OBLS/CXR RT [[id number]] Order #: [id number] FUTURE Prescriptions as of 11/29/2018 Sig: SUMATRIPTAN 50 MG TABLET Take one(1) tablet daily as n* RED YEAST RICE ORAL Take 1 capsule by mouth twice* DOXYCYCLINE HYCLATE 100 MG TA* Take 1 tablet by mouth twice * FLUTICASONE 50 MCG/ACTUATION * Use 2 Sprays in each nostril * PREGABALIN 150 MG CAPSULE Take 1 capsule by mouth twice* INSULIN GLARGINE (U-100) 100 * Inject 60 Units subcutaneousl* NORETHINDRONE (CONTRACEPTIVE)* Take 1 tablet by mouth once d* BLOOD SUGAR DIAGNOSTIC STRIPS Test blood sugar(s) 2 times d* LANCETS Test blood sugar(s) 2 times d* BLOOD-GLUCOSE METER, DRUM-TYP* Accu-Check Compact Plus Meter* METFORMIN 1,000 MG TABLET Take 1 tablet by mouth twice * RANITIDINE 150 MG TABLET Take 1 tablet by mouth twice * CETIRIZINE 10 MG TABLET Take 1 tablet by mouth once d* SITAGLIPTIN 50 MG TABLET Take 1 tablet by mouth once d* PEN NEEDLE, DIABETIC 32 GAUGE* Use once a day AMMONIUM LACTATE 12 % TOPICAL* Apply 1-2x a day for dry areas ACIDOPHILUS 100 MILLION CELL-* Take 1 cap daily COMPOUNDED PRESCRIPTION 1. V44.2 Ileostomy status (HC* OXYCODONE-ACETAMINOPHEN 5 MG-* Take 1 tablet by mouth every * TIZANIDINE 4 MG TABLET Take by mouth. . Takes 1 ta* COMPOUNDED PRESCRIPTION CAVILON no-sting barrier film* Problem List As Of Date 11/29/2018 Noted Resolved REG ENTERITIS, LG INTEST [K50.10] INVALID FOR* Retention of urine, unspecified [R33.9] INVALID FOR*11/27/2018 Mixed hyperlipidemia [E78.2] INVALID FOR* Anemia, unspecified [D64.9] INVALID FOR*03/08/2012 LUMBAGO [M54.5] INVALID FOR* Nonspecific abnormal results of liver function *INVALID FOR*04/19/2011 More... Onychia and paronychia of toe [L03.039] INVALID FOR*02/18/2013 ILEOSTOMY STATUS [Z93.2] INVALID FOR* IMPAIRED GLUCOSE JUNE TEST [R73.09] INVALID FOR*04/16/2008 Insulin-requiring or dependent type II diabetes*INVALID FOR* Fibromyalgia [M79.7] INVALID FOR* More... Non-alcoholic fatty liver disease [K76.0] INVALID FOR* Mild dysplasia of cervix [N87.0] INVALID FOR*03/08/2012 Fibromyalgia [M79.7] 04/19/2011 Depression [F32.9] INVALID FOR*11/27/2018 Eczematous dermatitis: hands [L30.9] INVALID FOR*02/18/2013 Xerosis cutis [L85.3] INVALID FOR*02/18/2013 Atopic eczema [L20.9] INVALID FOR* Other psoriasis [L40.8] INVALID FOR* Contact dermatitis and other eczema, due to uns*INVALID FOR*01/03/2017 Hypoglycemia [E16.2] INVALID FOR*03/08/2012 Migraine headache without aura [G43.009] INVALID FOR* Recurrent cold sores [B00.1] INVALID FOR* Sprain of wrist, left [S63.502A] INVALID FOR*05/24/2018 Vitamin B12 deficiency [E53.8] INVALID FOR* Chronic rhinitis [J31.0] INVALID FOR* 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*INVALID FOR* 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] INVALID FOR* Vitreous floaters of both eyes [H43.393] INVALID FOR* Obesity, Class I, BMI 30-34.9 [E66.9] INVALID FOR* Pain in right shoulder [M25.511] INVALID FOR* Pain in left shoulder [M25.512] INVALID FOR* Other instructions from your clinician: ASSESSMENT/PLAN: 1. Rib pain on right side - ICD9: 786.50, ICD10: R07.81 - following a fall - XR RIBS/CHEST 3V AP RIB/OBLS/CXR RT. My reading: negative. Radiologist RESULT: Frontal radiograph of the chest and dedicated views of the right ribs show no evidence of pneumothorax, hemothorax or pulmonary contusion. The visualized bony structures are intact without apparent displaced or nondisplaced rib fracture. Impression IMPRESSION: Negative ribs. Dictated by : RONALDO CARR MD - ICE APPLICATION - COUGH AND DEEP BREATHING EXERCISES RECOMMENDED - Follow-up with your PCP in 3-5 days if symptoms have not improved or sooner if symptoms worsen - Discussed red flags and need for immediate medical evaluation if any occur. - Discussed supportive care treatment with fluids, rest and analgesia. - Discussed expected course of illness Isi Fagan APRN.HEEL VARNISHER CONTUSIONS GENERAL INFORMATION: A contusion, or bruise, is caused by an injury that does not break the skin. Bleeding under the skin causes it to look black and blue. It may take 2 or 3 weeks for the bruising to disappear. INSTRUCTIONS: 1. You may continue your normal daily activities as tolerated. Rest the injured area as much as possible. 2. Apply ice to the injury for 15 minutes each hour (while awake) for the first two days. Put the ice in a plastic bag and place a thin towel between the bag of ice and your skin. 3. After the first 1 to 2 days, you may apply heat to the injury to help relieve pain. You may use a warm heating pad, whirlpool bath, or warm moist towels for 15-20 minutes every hour (while awake) for 48 hours. 4. You may use medicines for pain such as acetaminophen, ibuprofen or aspirin (unless otherwise instructed by your physician). CONTACT YOUR DOCTOR OR RETURN TO THE ED IF: 1. Your pain becomes worse. 2. You develop a temperature over 101 F (38.3 C). 3. The swelling increases greatly in the area of the bruise. 4. Redness or lines of redness develop in the area of the bruise. Encounter Status:Closed by ISI FAGAN on 11/29/18 OBSOLETE Observed: 11/28/2018 Status: COMPLETED Source: [place] 12:00 AM [facility] REPOSITORY Refill (INTMWS) VANDANA LEZAMA ([id number]) 1975 F Date Time Provider Department 11/28/18 GRAYSON PHAN During your visit today, we recorded the following information about you: Jazmin Nelson LPN 11/28/2018 3:44 PM Signed Pharmacy sent a fax stating that Sumatriptan packs cannot be broken and they come in packs of #9. Rx that was sent was for #7. Asking for new order. Order pended. Please advise. Allergies As of Date: 11/28/2018 Noted Allergy Reaction DILAUDID (HYDROMORPHONE (BULK)) 08/07/2006 7 - Swelling Comments: migraines LEVEMIR (INSULIN DETEMIR) 02/17/2014 14 - Other: See Comments Comments: Urine turned dark and smelly METHADONE 11/04/2013 7 - Swelling Comments: migraine MORPHINE 08/07/2006 7 - Swelling Comments: migraines REMICADE (INFLIXIMAB) 08/08/2006 5 - Intolerance Comments: broke out in blisters with the 6th dose. ULTRAM (TRAMADOL HCL) 04/07/2009 7 - Swelling Comments: migraines Date Reviewed: 11/27/2018 Reviewed by: Laina Monroe LPN - Fully Assessed Visit Diagnosis:Intractable migraine without aura and without status migrainosus [G43.019] Order(s):SUMAtriptan (IMITREX) 50 mg tabletTake one(1) tablet daily as needed, at headache onset. Repeat in two(2) hours if needed.Disp: 9 tabletRfl: 0 Prescriptions as of 11/28/2018 Sig: SUMATRIPTAN 50 MG TABLET Take one(1) tablet daily as n* RED YEAST RICE ORAL Take 1 capsule by mouth twice* DOXYCYCLINE HYCLATE 100 MG TA* Take 1 tablet by mouth twice * FLUTICASONE 50 MCG/ACTUATION * Use 2 Sprays in each nostril * FLUCONAZOLE 150 MG TABLET Take 1 tablet by mouth once d* PREGABALIN 150 MG CAPSULE Take 1 capsule by mouth twice* INSULIN GLARGINE (U-100) 100 * Inject 60 Units subcutaneousl* NORETHINDRONE (CONTRACEPTIVE)* Take 1 tablet by mouth once d* BLOOD SUGAR DIAGNOSTIC STRIPS Test blood sugar(s) 2 times d* LANCETS Test blood sugar(s) 2 times d* BLOOD-GLUCOSE METER, PASTOR-TYP* Accu-Check Compact Plus Meter* METFORMIN 1,000 MG TABLET Take 1 tablet by mouth twice * RANITIDINE 150 MG TABLET Take 1 tablet by mouth twice * CETIRIZINE 10 MG TABLET Take 1 tablet by mouth once d* SITAGLIPTIN 50 MG TABLET Take 1 tablet by mouth once d* PEN NEEDLE, DIABETIC 32 GAUGE* Use once a day AMMONIUM LACTATE 12 % TOPICAL* Apply 1-2x a day for dry areas ACIDOPHILUS 100 MILLION CELL-* Take 1 cap daily COMPOUNDED PRESCRIPTION 1. V44.2 Ileostomy status (HC* OXYCODONE-ACETAMINOPHEN 5 MG-* Take 1 tablet by mouth every * TIZANIDINE 4 MG TABLET Take by mouth. . Takes 1 ta* COMPOUNDED PRESCRIPTION CAVILON no-sting barrier film* Problem List As Of Date 11/28/2018 Noted Resolved REG ENTERITIS, LG INTEST [K50.10] INVALID FOR* Retention of urine, unspecified [R33.9] INVALID FOR*11/27/2018 Mixed hyperlipidemia [E78.2] INVALID FOR* Anemia, unspecified [D64.9] INVALID FOR*03/08/2012 LUMBAGO [M54.5] INVALID FOR* Nonspecific abnormal results of liver function *INVALID FOR*04/19/2011 More... Onychia and paronychia of toe [L03.039] INVALID FOR*02/18/2013 ILEOSTOMY STATUS [Z93.2] INVALID FOR* IMPAIRED GLUCOSE JUNE TEST [R73.09] INVALID FOR*04/16/2008 Insulin-requiring or dependent type II diabetes*INVALID FOR* Fibromyalgia [M79.7] INVALID FOR* More... Non-alcoholic fatty liver disease [K76.0] INVALID FOR* Mild dysplasia of cervix [N87.0] INVALID FOR*03/08/2012 Fibromyalgia [M79.7] 04/19/2011 Depression [F32.9] INVALID FOR*11/27/2018 Eczematous dermatitis: hands [L30.9] INVALID FOR*02/18/2013 Xerosis cutis [L85.3] INVALID FOR*02/18/2013 Atopic eczema [L20.9] INVALID FOR* Other psoriasis [L40.8] INVALID FOR* Contact dermatitis and other eczema, due to uns*INVALID FOR*01/03/2017 Hypoglycemia [E16.2] INVALID FOR*03/08/2012 Migraine headache without aura [G43.009] INVALID FOR* Recurrent cold sores [B00.1] INVALID FOR* Sprain of wrist, left [S63.502A] INVALID FOR*05/24/2018 Vitamin B12 deficiency [E53.8] INVALID FOR* Chronic rhinitis [J31.0] INVALID FOR* 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*INVALID FOR* 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] INVALID FOR* Vitreous floaters of both eyes [H43.393] INVALID FOR* Obesity, Class I, BMI 30-34.9 [E66.9] INVALID FOR* Pain in right shoulder [M25.511] INVALID FOR* Pain in left shoulder [M25.512] INVALID FOR* Prescriptions ordered this encounter Disp Refills Start End SUMATRIPTAN 50 MG TABLET 9 ta* 0 11/28/2018 Sig: Take one(1) tablet daily as needed, at headache onset. Repeat in two(2) hours if needed. Medications Discontinued During This Encounter SUMAtriptan (IMITREX) 50 mg tablet 7 ta* 0 11/23/2018 11/28/2018 Sig: Take one(1) tablet daily as needed, at headache onset. Repeat in two(2) hours if needed. Disc: Reason for discontinue is not on file. Encounter Status:Closed by AURY POWERS CNP on 11/28/18 PROGRESS Observed: 11/27/2018 Status: COMPLETED Source: [place] 10:14 PM [facility] HNO ID: [id number] Author: Grayson Phan Service: (none) Author Type: Physician Type: Progress Notes Filed: 11/27/2018 10:55 PM Note Text: This note was created using NoteWriter. Subjective Vandana Lezama is a 42 year old female who presents with complaint of sinus infection, nasal congestion, facial pain/pressure maxillary, ethymoid, post nasal drip, ear pressure bilateral , cough- nonproductive and fatigue for a month. Associated symptoms include sneezing and eye itching. She denies fever, sore throat, dyspnea, wheezing, nausea, vomiting and diarrhea. Treatments tried include OTC cold medicine, Guaifenesin/Mucinex and Augmentin from [facility] with partial relief of symptoms. Other concern is urinary itching after her antibiotic course. Her fibromyalgia was stable. Pregabalin refill was needed. Refills were consistent. Migraines were stable. She was seeing Dr. Ovalles for shoulder pains, and there was discussion about arthroscopic shoulder surgery. She continued with pain management. Her diabetes mellitus was not well controlled, and was impacted by her steroid injections from pain management. She will see Dr. Harrison next week. ACTIVE PROBLEM LIST Regional Enteritis of Large Intestine (Hcc) Mixed Hyperlipidemia Lumbago Ileostomy Status (Hcc) Insulin-Requiring Or Dependent Type II Diabetes Mellitus (Hcc) Fibromyalgia Non-Alcoholic Fatty Liver Disease Atopic Eczema Other Psoriasis Migraine Headache Without Aura Recurrent Cold Sores Vitamin B12 Deficiency Chronic Rhinitis Type 2 Diabetes Mellitus With Both Eyes Affected By Mild Nonproliferative Retinopathy Without Macular Edema, With Long-Term Current Use of Insulin (Hcc) Nuclear Sclerosis of Both Eyes Vitreous Floaters of Both Eyes Obesity, Class I, Bmi 30-34.9 Pain in Right Shoulder Pain in Left Shoulder Review of Systems Constitutional: Negative for chills, fever and unexpected weight change. HENT: See HPI. Eyes: Positive for itching. Respiratory: Positive for cough. Negative for chest tightness, shortness of breath and wheezing. Cardiovascular: Negative. Gastrointestinal: Negative. Genitourinary: Negative for vaginal discharge. See HPI. Objective BP 116/68 (BP Site: Right Arm, BP Position: Sitting, BP Cuff Size: Regular Adult) Pulse 80 Temp 36.6 ?C (97.9 ?F) (Temporal Artery) Resp 18 Wt 78.9 kg (174 lb) BMI 34.56 kg/m? Physical Exam Constitutional: No distress. HENT: Right Ear: Tympanic membrane normal. Left Ear: Tympanic membrane normal. Nose: Mucosal edema, rhinorrhea and sinus tenderness present. Eyes: Conjunctivae are normal. Cardiovascular: Normal heart sounds. Pulmonary/Chest: She has no wheezes. She has no rales. Musculoskeletal: She exhibits no edema. Lymphadenopathy: She has no cervical adenopathy. Skin: She is not diaphoretic. Assessment and Plan 1. Sinusitis, unspecified chronicity, unspecified location - ICD9: 473.9, ICD10: J32.9 (primary diagnosis) - Will begin treatment with as per antibiotic as written, see orders - DOXYCYCLINE HYCLATE 100 MG TABLET 2. Chronic rhinitis - ICD9: 472.0, ICD10: J31.0 - FLUTICASONE 50 MCG/ACTUATION NASAL SPRAY,SUSPENSION Discussed medication dosage, usage, goals of therapy, and side effects. 3. Mixed hyperlipidemia - ICD9: 272.2, ICD10: E78.2 - suboptimal control - RED YEAST RICE ORAL - Patient declined statins and preferred herbal measures, which I pointed out had not been shown to reduce risk for [place] or cerebral vascular accident. 4. Fibromyalgia - ICD9: 729.1, ICD10: M79.7 Pregabalin refill is current. 5. Obesity, Class I, BMI 30-34.9 - ICD9: 278.00, ICD10: E66.9 Weight loss recommended. Discuss GLP 1 Injection with endocrinology. 6. Ileostomy status (HCC) - ICD9: V44.2, ICD10: Z93.2 Supplies current. Grayson Phan MD CNOV Observed: 11/27/2018 Status: COMPLETED Source: [place] 10:00 AM [facility] REPOSITORY Office Visit (INTMWS) VANDANA LEZAMA Braydon ([id number]) 1975 F Date Time Provider Department 11/27/18 10:00 AM GRAYSON PHAN INTMWS During your visit today, we recorded the following information about you: Temperature Pulse Respiration Blood pressure 97.9 degrees 80/minute 18/minute 116/68 Weight 78.9 kg Grayson Phan MD 11/27/2018 10:55 PM Signed This note was created using NoteWriter. Subjective Vandanasofie Lezama is a 42 year old female who presents with complaint of sinus infection, nasal congestion, facial pain/pressure maxillary, ethymoid, post nasal drip, ear pressure bilateral , cough- nonproductive and fatigue for a month. Associated symptoms include sneezing and eye itching. She denies fever, sore throat, dyspnea, wheezing, nausea, vomiting and diarrhea. Treatments tried include OTC cold medicine, Guaifenesin/Mucinex and Augmentin from [facility] with partial relief of symptoms. Other concern is urinary itching after her antibiotic course. Her fibromyalgia was stable. Pregabalin refill was needed. Refills were consistent. Migraines were stable. She was seeing Dr. Ovalles for shoulder pains, and there was discussion about arthroscopic shoulder surgery. She continued with pain management. Her diabetes mellitus was not well controlled, and was impacted by her steroid injections from pain management. She will see Dr. Harrison next week. ACTIVE PROBLEM LIST Regional Enteritis of Large Intestine (Hcc) Mixed Hyperlipidemia Lumbago Ileostomy Status (Hcc) Insulin-Requiring Or Dependent Type II Diabetes Mellitus (Hcc) Fibromyalgia Non-Alcoholic Fatty Liver Disease Atopic Eczema Other Psoriasis Migraine Headache Without Aura Recurrent Cold Sores Vitamin B12 Deficiency Chronic Rhinitis Type 2 Diabetes Mellitus With Both Eyes Affected By Mild Nonproliferative Retinopathy Without Macular Edema, With Long-Term Current Use of Insulin (Hcc) Nuclear Sclerosis of Both Eyes Vitreous Floaters of Both Eyes Obesity, Class I, Bmi 30-34.9 Pain in Right Shoulder Pain in Left Shoulder Review of Systems Constitutional: Negative for chills, fever and unexpected weight change. HENT: See HPI. Eyes: Positive for itching. Respiratory: Positive for cough. Negative for chest tightness, shortness of breath and wheezing. Cardiovascular: Negative. Gastrointestinal: Negative. Genitourinary: Negative for vaginal discharge. See HPI. Objective BP 116/68 (BP Site: Right Arm, BP Position: Sitting, BP Cuff Size: Regular Adult) Pulse 80 Temp 36.6 ?C (97.9 ?F) (Temporal Artery) Resp 18 Wt 78.9 kg (174 lb) BMI 34.56 kg/m? Physical Exam Constitutional: No distress. HENT: Right Ear: Tympanic membrane normal. Left Ear: Tympanic membrane normal. Nose: Mucosal edema, rhinorrhea and sinus tenderness present. Eyes: Conjunctivae are normal. Cardiovascular: Normal heart sounds. Pulmonary/Chest: She has no wheezes. She has no rales. Musculoskeletal: She exhibits no edema. Lymphadenopathy: She has no cervical adenopathy. Skin: She is not diaphoretic. Assessment and Plan 1. Sinusitis, unspecified chronicity, unspecified location - ICD9: 473.9, ICD10: J32.9 (primary diagnosis) - Will begin treatment with as per antibiotic as written, see orders - DOXYCYCLINE HYCLATE 100 MG TABLET 2. Chronic rhinitis - ICD9: 472.0, ICD10: J31.0 - FLUTICASONE 50 MCG/ACTUATION NASAL SPRAY,SUSPENSION Discussed medication dosage, usage, goals of therapy, and side effects. 3. Mixed hyperlipidemia - ICD9: 272.2, ICD10: E78.2 - suboptimal control - RED YEAST RICE ORAL - Patient declined statins and preferred herbal measures, which I pointed out had not been shown to reduce risk for [place] or cerebral vascular accident. 4. Fibromyalgia - ICD9: 729.1, ICD10: M79.7 Pregabalin refill is current. 5. Obesity, Class I, BMI 30-34.9 - ICD9: 278.00, ICD10: E66.9 Weight loss recommended. Discuss GLP 1 Injection with endocrinology. 6. Ileostomy status (HCC) - ICD9: V44.2, ICD10: Z93.2 Supplies current. Grayson Phan MD Referring Provider: GRAYSON PHAN [[id number]] Allergies As of Date: 11/27/2018 Noted Allergy Reaction DILAUDID (HYDROMORPHONE (BULK)) 08/07/2006 7 - Swelling Comments: migraines LEVEMIR (INSULIN DETEMIR) 02/17/2014 14 - Other: See Comments Comments: Urine turned dark and smelly METHADONE 11/04/2013 7 - Swelling Comments: migraine MORPHINE 08/07/2006 7 - Swelling Comments: migraines REMICADE (INFLIXIMAB) 08/08/2006 5 - Intolerance Comments: broke out in blisters with the 6th dose. ULTRAM (TRAMADOL HCL) 04/07/2009 7 - Swelling Comments: migraines Date Reviewed: 11/27/2018 Reviewed by: Laina Monroe LPN - Fully Assessed Reason for Visit: F/U 6 Month [444] Primary Visit Diagnosis:Sinusitis, unspecified chronicity, unspecified location [J32.9] Other Visit Diagnoses:Chronic rhinitis [J31.0] Mixed hyperlipidemia [E78.2] Fibromyalgia [M79.7] Obesity, Class I, BMI 30-34.9 [E66.9] Ileostomy status ([facility]) [Z93.2] Order(s):doxycycline (VIBRA-TABS) 100 mg tabletTake 1 tablet by mouth twice daily for 10 days.Disp: 20 tabletRfl: 0 fluticasone (FLONASE) 50 mcg/actuation nasal sprayUse 2 Sprays in each nostril once daily.Disp: 1 BottleRfl: 2 fluconazole (DIFLUCAN) 150 mg tabletTake 1 tablet by mouth once daily for 1 day. Repeat in one week if needed.Disp: 1 tabletRfl: 1 Prescriptions as of 11/27/2018 Sig: RED YEAST RICE ORAL Take 1 capsule by mouth twice* SUMATRIPTAN 50 MG TABLET Take one(1) tablet daily as n* PREGABALIN 150 MG CAPSULE Take 1 capsule by mouth twice* INSULIN GLARGINE (U-100) 100 * Inject 60 Units subcutaneousl* NORETHINDRONE (CONTRACEPTIVE)* Take 1 tablet by mouth once d* BLOOD SUGAR DIAGNOSTIC STRIPS Test blood sugar(s) 2 times d* LANCETS Test blood sugar(s) 2 times d* BLOOD-GLUCOSE METER, DRUM-TYP* Accu-Check Compact Plus Meter* METFORMIN 1,000 MG TABLET Take 1 tablet by mouth twice * RANITIDINE 150 MG TABLET Take 1 tablet by mouth twice * CETIRIZINE 10 MG TABLET Take 1 tablet by mouth once d* SITAGLIPTIN 50 MG TABLET Take 1 tablet by mouth once d* PEN NEEDLE, DIABETIC 32 GAUGE* Use once a day AMMONIUM LACTATE 12 % TOPICAL* Apply 1-2x a day for dry areas ACIDOPHILUS 100 MILLION CELL-* Take 1 cap daily COMPOUNDED PRESCRIPTION 1. V44.2 Ileostomy status (HC* OXYCODONE-ACETAMINOPHEN 5 MG-* Take 1 tablet by mouth every * TIZANIDINE 4 MG TABLET Take by mouth. . Takes 1 ta* COMPOUNDED PRESCRIPTION CAVILON no-sting barrier film* DOXYCYCLINE HYCLATE 100 MG TA* Take 1 tablet by mouth twice * FLUTICASONE 50 MCG/ACTUATION * Use 2 Sprays in each nostril * FLUCONAZOLE 150 MG TABLET Take 1 tablet by mouth once d* Problem List As Of Date 11/27/2018 Noted Resolved REG ENTERITIS, LG INTEST [K50.10] INVALID FOR* Retention of urine, unspecified [R33.9] INVALID FOR*11/27/2018 Mixed hyperlipidemia [E78.2] INVALID FOR* Anemia, unspecified [D64.9] INVALID FOR*03/08/2012 LUMBAGO [M54.5] INVALID FOR* Nonspecific abnormal results of liver function *INVALID FOR*04/19/2011 More... Onychia and paronychia of toe [L03.039] INVALID FOR*02/18/2013 ILEOSTOMY STATUS [Z93.2] INVALID FOR* IMPAIRED GLUCOSE JUNE TEST [R73.09] INVALID FOR*04/16/2008 Insulin-requiring or dependent type II diabetes*INVALID FOR* Fibromyalgia [M79.7] INVALID FOR* More... Non-alcoholic fatty liver disease [K76.0] INVALID FOR* Mild dysplasia of cervix [N87.0] INVALID FOR*03/08/2012 Fibromyalgia [M79.7] 04/19/2011 Depression [F32.9] INVALID FOR*11/27/2018 Eczematous dermatitis: hands [L30.9] INVALID FOR*02/18/2013 Xerosis cutis [L85.3] INVALID FOR*02/18/2013 Atopic eczema [L20.9] INVALID FOR* Other psoriasis [L40.8] INVALID FOR* Contact dermatitis and other eczema, due to uns*INVALID FOR*01/03/2017 Hypoglycemia [E16.2] INVALID FOR*03/08/2012 Migraine headache without aura [G43.009] INVALID FOR* Recurrent cold sores [B00.1] INVALID FOR* Sprain of wrist, left [S63.502A] INVALID FOR*05/24/2018 Vitamin B12 deficiency [E53.8] INVALID FOR* Chronic rhinitis [J31.0] INVALID FOR* 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 FLUTICASONE 50 MCG/ACTUATION NASAL S* 1 Brice* 2 11/27/2018 Route: EACH NOSTRIL Sig: Use 2 Sprays in each nostril once daily. FLUCONAZOLE 150 MG TABLET 1 ta* 1 11/27/2018 11/28/2018 Route: ORAL Sig: Take 1 tablet by mouth once daily for 1 day. Repeat in one week if needed. Medications Discontinued During This Encounter Blood-Glucose Meter (ONETOUCH VERIO * 1 Ea* 0 01/31/2018 11/27/2018 Route: Miscell. (Med.Supl.;Non-Drugs) Si Each as needed. to check blood sugars. Patient not taking: Reported on 11/27/2018 Disc: Reason for discontinue is not on file. dicyclomine (BENTYL) 10 mg capsule 21 c* 0 08/30/2018 11/27/2018 Route: ORAL Sig: Take 1 capsule by mouth three times daily as needed (pelvic pain). Patient not taking: Reported on 11/27/2018 Disc: Reason for discontinue is not on file. amoxicillin-clavulanic acid (AUGMENT* 20 t* 0 10/16/2018 11/27/2018 Route: ORAL Sig: Take 1 tablet by mouth every 12 hours. Patient not taking: Reported on 11/27/2018 Disc: Reason for discontinue is not on file. pregabalin (LYRICA) 150 mg capsule 270 * 0 06/25/2018 11/27/2018 Class: Print RX Route: ORAL Sig: Take 1 capsule by mouth three times daily for 90 days. Disc: Reason for discontinue is not on file. Disposition: Return in about 6 months (around 05/27/2019). Follow-up and Disposition History Recorded Encounter Status:Closed by GRAYSON PHAN MD on 11/27/18 LIPID PANEL, BASIC Collected: 11/26/2018 Status: F Source: [place] 9:03 AM [facility] REPOSITORY TYPE CODE TESTS RESULT OUT OF REFERENCE UNITS RANGE LAB CHOL <200 mg/dL Cholesterol High 223 Result Comment: <200 mg/dL, Desirable 200-239 mg/dL, Borderline high >239 mg/dL, High LAB TRIGLY <150 mg/dL Triglyceride 129 Result Comment: <150 mg/dL, Normal 150-199 mg/dL, Borderline high 200-499 mg/dL, High >499 mg/dL, Very high LAB HDL >39 mg/dL HDL-Cholesterol 55 Result Comment: 40-59 mg/dL, Acceptable >59 mg/dL, High: Negative risk factor for coronary heart disease <40 mg/dL, Low: Positive risk factor for coronary heart disease LAB LDL <100 mg/dL LDL-Cholesterol High 142 Result Comment: <100 mg/dL, Optimal 100-129 mg/dL, Near optimal/above optimal 130-159 mg/dL, Borderline high 160-189 mg/dL, High >189 mg/dL, Very high Secondary prevention optimal LDL Cholesterol levels are recommended to be < 70 mg/dL LAB NONHDL <130 mg/dL Non HDL High Cholesterol 168 Result Comment: <130 mg/dL, Optimal 130-159 mg/dL, Near optimal/above optimal 160-189 mg/dL, Borderline high 190-219 mg/dL, High >219 mg/dL, Very high Secondary prevention optimal non HDL Cholesterol levels are recommended to be < 100 mg/dL LAB FT hrs Fasting Time 12 LAB VLDL <30 mg/dL VLDL Cholesterol 26 LAB TCHDL <5.10 TC:HDL Ratio 4.05 LAB LDLHDL <2.54 High LDL:HDL Ratio 2.58 Result Comment: Reference: 1. National Cholesterol Education Program ATP III Guideline At-A-Glance Quick Desk Reference: National Heart, Lung, and Blood [place]. National Institutes of Health. 2001: NIH Publication No. 01-3305. 2. An International Atherosclerosis Society position paper: global recommendations for the management of dyslipidemia: executive summary, Atherosclerosis. 2014: 232(2):410-413. Performed By: #### LIPB #### [facility] [address] [place], [place] [address] ALBUMIN/CREAT RATIO Collected: 11/26/2018 Status: F Source: [place] 9:03 AM [facility] REPOSITORY TYPE CODE TESTS RESULT OUT OF REFERENCE UNITS RANGE LAB UCRR 20-300 mg/dL Creatinine,Ur 269.5 ine,Ran LAB UALBR 0.0-23.0 mg/L High Albumin Urine 51.7 Random LAB UALBCR 0-30 mg/g Albumin/Creat 19 Ratio Result Comment: 30 to 300 mg/g indicates an increased risk for diabetic nephropathy. Greater than 300 mg/g is consistent with clinical nephropathy. (Am J Kidney Disease 1995, 25:107) Performed By: #### UA #### [facility] [address] [place], [place] [address] OBSOLETE Observed: 11/23/2018 Status: COMPLETED Source: [place] 12:00 AM [facility] REPOSITORY Refill (INTMWS) VANDANA LEZAMA ([id number]) 1975 F Date Time Provider Department 11/23/18 GRAYSON PHAN INTMWS During your visit today, we recorded the following information about you: Katt Canaels 11/23/2018 11:40 AM Signed Patient phones requesting refills as follows: Pending Prescriptions Disp Refills SUMATRIPTAN 50 MG TABLET 7 tablet 2 Sig: Take one(1) tablet daily as needed, at headache onset. Repeat in two(2) hours if needed. JEFFERSON: No PREGABALIN 150 MG CAPSULE 60 capsule 6 Sig: Take 1 capsule by mouth twice daily. SERGIO Class: C-V JEFFERSON: No Please review and advise. Katt Senar Aury Powers APRN.CNP 11/23/2018 12:01 PM Signed PDMP website checked and validated. All prescriptions have been APPROPRIATELY filled. No suspicious activity was identified. 11/23/2018 by GITA Myrick Cma 11/23/2018 1:02 PM Signed The following prescriptions have been approved and faxed to [facility]: Signed Prescriptions Disp Refills SUMAtriptan (IMITREX) 50 mg tablet 7 tablet 0 Sig: Take one(1) tablet daily as needed, at headache onset. Repeat in two(2) hours if needed. JEFFERSON: No Authorizing Provider: AURY POWERS) pregabalin (LYRICA) 150 mg capsule 180 capsule 0 Sig: Take 1 capsule by mouth twice daily for 90 days. SERGIO Class: C-V JEFFERSON: No Authorizing Provider: AURY POWERS) Zackary Marin Cement Finisher Allergies As of Date: 11/23/2018 Noted Allergy Reaction DILAUDID (HYDROMORPHONE (BULK)) 08/07/2006 7 - Swelling Comments: migraines LEVEMIR (INSULIN DETEMIR) 02/17/2014 14 - Other: See Comments Comments: Urine turned dark and smelly METHADONE 11/04/2013 7 - Swelling Comments: migraine MORPHINE 08/07/2006 7 - Swelling Comments: migraines REMICADE (INFLIXIMAB) 08/08/2006 5 - Intolerance Comments: broke out in blisters with the 6th dose. ULTRAM (TRAMADOL HCL) 04/07/2009 7 - Swelling Comments: migraines Date Reviewed: 10/16/2018 Reviewed by: Rachel Bellamy LPN - Fully Assessed Reason for Visit: Refill Request [94] Primary Visit Diagnosis:Fibromyalgia [M79.7] Other Visit Diagnosis:Intractable migraine without aura and without status migrainosus [G43.019] Order(s):SUMAtriptan (IMITREX) 50 mg tabletTake one(1) tablet daily as needed, at headache onset. Repeat in two(2) hours if needed.Disp: 7 tabletRfl: 0 pregabalin (LYRICA) 150 mg capsuleTake 1 capsule by mouth twice daily for 90 days.Disp: 180 capsuleRfl: 0 Prescriptions as of 11/23/2018 Sig: SUMATRIPTAN 50 MG TABLET Take one(1) tablet daily as n* PREGABALIN 150 MG CAPSULE Take 1 capsule by mouth twice* AMOXICILLIN 875 MG-POTASSIUM * Take 1 tablet by mouth every * INSULIN GLARGINE (U-100) 100 * Inject 60 Units subcutaneousl* NORETHINDRONE (CONTRACEPTIVE)* Take 1 tablet by mouth once d* DICYCLOMINE 10 MG CAPSULE Take 1 capsule by mouth three* BLOOD SUGAR DIAGNOSTIC STRIPS Test blood sugar(s) 2 times d* LANCETS Test blood sugar(s) 2 times d* BLOOD-GLUCOSE METER, PASTOR-TYP* Accu-Check Compact Plus Meter* PREGABALIN 150 MG CAPSULE Take 1 capsule by mouth three* METFORMIN 1,000 MG TABLET Take 1 tablet by mouth twice * RANITIDINE 150 MG TABLET Take 1 tablet by mouth twice * CETIRIZINE 10 MG TABLET Take 1 tablet by mouth once d* SITAGLIPTIN 50 MG TABLET Take 1 tablet by mouth once d* PEN NEEDLE, DIABETIC 32 GAUGE* Use once a day AMMONIUM LACTATE 12 % TOPICAL* Apply 1-2x a day for dry areas ACIDOPHILUS 100 MILLION CELL-* Take 1 cap daily BLOOD-GLUCOSE METER KIT 1 Each as needed. to check bl* COMPOUNDED PRESCRIPTION 1. V44.2 Ileostomy status (HC* OXYCODONE-ACETAMINOPHEN 5 MG-* Take 1 tablet by mouth every * TIZANIDINE 4 MG TABLET Take by mouth. . Takes 1 ta* COMPOUNDED PRESCRIPTION CAVILON no-sting barrier film* Problem List As Of Date 11/23/2018 Noted Resolved REG ENTERITIS, LG INTEST [K50.10] INVALID FOR* RETENTION OF URINE UNSPEC [R33.9] INVALID FOR* Mixed hyperlipidemia [E78.2] INVALID FOR* Anemia, unspecified [D64.9] INVALID FOR*03/08/2012 LUMBAGO [M54.5] INVALID FOR* Nonspecific abnormal results of liver function *INVALID FOR*04/19/2011 More... Onychia and paronychia of toe [L03.039] INVALID FOR*02/18/2013 ILEOSTOMY STATUS [Z93.2] INVALID FOR* IMPAIRED GLUCOSE JUNE TEST [R73.09] INVALID FOR*04/16/2008 Insulin-requiring or dependent type II diabetes*INVALID FOR* Fibromyalgia [M79.7] INVALID FOR* More... Non-alcoholic fatty liver disease [K76.0] INVALID FOR* Mild dysplasia of cervix [N87.0] INVALID FOR*03/08/2012 Fibromyalgia [M79.7] 04/19/2011 Depression [F32.9] INVALID FOR* Eczematous dermatitis: hands [L30.9] INVALID FOR*02/18/2013 Xerosis cutis [L85.3] INVALID FOR*02/18/2013 Atopic eczema [L20.9] INVALID FOR* Other psoriasis [L40.8] INVALID FOR* Contact dermatitis and other eczema, due to uns*INVALID FOR*01/03/2017 Hypoglycemia [E16.2] INVALID FOR*03/08/2012 Migraine headache without aura [G43.009] INVALID FOR* Recurrent cold sores [B00.1] INVALID FOR* Sprain of wrist, left [S63.502A] INVALID FOR*05/24/2018 Vitamin B12 deficiency [E53.8] INVALID FOR* Chronic rhinitis [J31.0] INVALID FOR* 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 Repeat in two(2) hours if needed. PREGABALIN 150 MG CAPSULE 180 * 0 11/23/2018 02/21/2019 Class: Print RX Route: ORAL Sig: Take 1 capsule by mouth twice daily for 90 days. Medications Discontinued During This Encounter SUMAtriptan (IMITREX) 50 mg tablet 7 ta* 2 06/25/2018 11/23/2018 Sig: Take one(1) tablet daily as needed, at headache onset. Repeat in two(2) hours if needed. Disc: Reason for discontinue is not on file. Encounter Status:Closed by ZACKARY MARIN CMA on 11/23/18 FORTINO Observed: 11/12/2018 Status: COMPLETED Source: [place] 12:00 AM [facility] REPOSITORY Patient Outreach (INTMWH) VANDANA LEZAMA ([id number]) 1975 F Date Time Provider Department 11/12/18 GRAYSON PHAN INTWH During your visit today, we recorded the following information about you: Allergies As of Date: 11/12/2018 Noted Allergy Reaction DILAUDID (HYDROMORPHONE (BULK)) 08/07/2006 7 - Swelling Comments: migraines LEVEMIR (INSULIN DETEMIR) 02/17/2014 14 - Other: See Comments Comments: Urine turned dark and smelly METHADONE 11/04/2013 7 - Swelling Comments: migraine MORPHINE 08/07/2006 7 - Swelling Comments: migraines REMICADE (INFLIXIMAB) 08/08/2006 5 - Intolerance Comments: broke out in blisters with the 6th dose. ULTRAM (TRAMADOL HCL) 04/07/2009 7 - Swelling Comments: migraines Date Reviewed: 10/16/2018 Reviewed by: Rachel Bellamy LPN - Fully Assessed Visit Diagnosis:Medication management [Z79.899] Order(s):ALBUMIN/CREAT RATIO RND UR [SQUACR] Order #: [id number] FUTURE LIPID PANEL BASIC [SQLIPB] Order #: [id number] FUTURE Prescriptions as of 11/12/2018 Sig: AMOXICILLIN 875 MG-POTASSIUM * Take 1 tablet by mouth every * INSULIN GLARGINE (U-100) 100 * Inject 60 Units subcutaneousl* NORETHINDRONE (CONTRACEPTIVE)* Take 1 tablet by mouth once d* DICYCLOMINE 10 MG CAPSULE Take 1 capsule by mouth three* BLOOD SUGAR DIAGNOSTIC STRIPS Test blood sugar(s) 2 times d* LANCETS Test blood sugar(s) 2 times d* BLOOD-GLUCOSE METER, DRUM-TYP* Accu-Check Compact Plus Meter* METFORMIN 1,000 MG TABLET Take 1 tablet by mouth twice * RANITIDINE 150 MG TABLET Take 1 tablet by mouth twice * CETIRIZINE 10 MG TABLET Take 1 tablet by mouth once d* X SUMATRIPTAN 50 MG TABLET Take one(1) tablet daily as n* SITAGLIPTIN 50 MG TABLET Take 1 tablet by mouth once d* PEN NEEDLE, DIABETIC 32 GAUGE* Use once a day AMMONIUM LACTATE 12 % TOPICAL* Apply 1-2x a day for dry areas ACIDOPHILUS 100 MILLION CELL-* Take 1 cap daily BLOOD-GLUCOSE METER KIT 1 Each as needed. to check bl* COMPOUNDED PRESCRIPTION 1. V44.2 Ileostomy status (HC* OXYCODONE-ACETAMINOPHEN 5 MG-* Take 1 tablet by mouth every * TIZANIDINE 4 MG TABLET Take by mouth. . Takes 1 ta* COMPOUNDED PRESCRIPTION CAVILON no-sting barrier film* Problem List As Of Date 11/12/2018 Noted Resolved REG ENTERITIS, LG INTEST [K50.10] INVALID FOR* RETENTION OF URINE UNSPEC [R33.9] INVALID FOR* Mixed hyperlipidemia [E78.2] INVALID FOR* Anemia, unspecified [D64.9] INVALID FOR*03/08/2012 LUMBAGO [M54.5] INVALID FOR* Nonspecific abnormal results of liver function *INVALID FOR*04/19/2011 More... Onychia and paronychia of toe [L03.039] INVALID FOR*02/18/2013 ILEOSTOMY STATUS [Z93.2] INVALID FOR* IMPAIRED GLUCOSE JUNE TEST [R73.09] INVALID FOR*04/16/2008 Insulin-requiring or dependent type II diabetes*INVALID FOR* Fibromyalgia [M79.7] INVALID FOR* More... Non-alcoholic fatty liver disease [K76.0] INVALID FOR* Mild dysplasia of cervix [N87.0] INVALID FOR*03/08/2012 Fibromyalgia [M79.7] 04/19/2011 Depression [F32.9] INVALID FOR* Eczematous dermatitis: hands [L30.9] INVALID FOR*02/18/2013 Xerosis cutis [L85.3] INVALID FOR*02/18/2013 Atopic eczema [L20.9] INVALID FOR* Other psoriasis [L40.8] INVALID FOR* Contact dermatitis and other eczema, due to uns*INVALID FOR*01/03/2017 Hypoglycemia [E16.2] INVALID FOR*03/08/2012 Migraine headache without aura [G43.009] INVALID FOR* Recurrent cold sores [B00.1] INVALID FOR* Sprain of wrist, left [S63.502A] INVALID FOR*05/24/2018 Vitamin B12 deficiency [E53.8] INVALID FOR* Chronic rhinitis [J31.0] INVALID FOR* 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*INVALID FOR* 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 Unable to move or blow out mucus from nasal passages, must be swollen up there. Associated symptoms includes cough, colored sputum, facial pain/pressure around both eyes, headache and fatigue. Patient denies wheezing, nausea and vomiting. Symptoms started with nasal congestion. Heats home with wood, has humidifier. Treatments tried include OTC cold medicine with temporary relief of symptoms. Known illness exposure with friend at [employer]. She is diabetic, h/o Chronic rhinitis. The ROS is otherwise negative. The patient's pmh, medications, allergies, and past visits are reviewed. PHYSICAL EXAM: Blood pressure 136/70, pulse 84, temperature 36.9 ?C (98.4 ?F), temperature source Tympanic, resp. rate 18. General appearance: tired/ill appearing, alert, cooperative, pleasant, in no acute distress Head: Normocephalic Eyes: conjunctiva/corneas normal, PERRL, EOMI Ears: R TM - clear with good landmarks, L TM - clear with good landmarks Nose: purulent rhinorrhea, mucosa erythematous and swollen, sinus tenderness over maxillary sinuses bilateral, congested Oropharynx: moist without lesions Neck: supple and no adenopathy Heart: regular rate and rhythm, without murmur, rubs, clicks, gallops Lungs: clear to auscultation, without rales or wheeze, good air exchange Chest Wall: Symmetrical chest wall expansion, no retractions, chest wall nontender ASSESSMENT/PLAN: 1. Bacterial sinusitis - ICD9: 473.9, 041.9, ICD10: J32.9, B96.89 - Will begin treatment with Augmentin 875 mg PO BID for 10 days - The patient should also be given OTC cough and cold meds as needed for the first 5-7 days of treatment. - Supportive care with plenty of fluids, rest, and analgesia prn. - Follow up in 3-5 days if symptoms persist or worsen. - AMOXICILLIN 875 MG-POTASSIUM CLAVULANATE 125 MG TABLET Verito Lezama, MSN OR NURSE MANAGER.HEEL VARNISHER CNOV Observed: 10/16/2018 Status: COMPLETED Source: [place] 10:20 AM [facility] REPOSITORY Office Visit (FAMPWS) VANDANA LEZAMA ([id number]) 1975 F Date Time Provider Department 10/16/18 10:20 AM VERITO LEZAMA (COMMUNICATIONS ASSOCIATE) GARY During your visit today, we recorded the following information about you: Temperature Pulse Respiration Blood pressure 98.4 degrees 84/minute 18/minute 136/70 Verito Lezama, MSN OR NURSE MANAGER.HEEL VARNISHER 10/16/2018 11:04 AM Signed Patient presents with: Sinus Problem: x 6 days HPI Vandana Lezama is a 42 year old female who presents with complaint of sinus symptoms for 1 week,, getting progressively worse. Unable to move or blow out mucus from nasal passages, must be swollen up there. Associated symptoms includes cough, colored sputum, facial pain/pressure around both eyes, headache and fatigue. Patient denies wheezing, nausea and vomiting. Symptoms started with nasal congestion. Heats home with wood, has humidifier. Treatments tried include OTC cold medicine with temporary relief of symptoms. Known illness exposure with friend at [employer]. She is diabetic, h/o Chronic rhinitis. The ROS is otherwise negative. The patient's pmh, medications, allergies, and past visits are reviewed. PHYSICAL EXAM: Blood pressure 136/70, pulse 84, temperature 36.9 ?C (98.4 ?F), temperature source Tympanic, resp. rate 18. General appearance: tired/ill appearing, alert, cooperative, pleasant, in no acute distress Head: Normocephalic Eyes: conjunctiva/corneas normal, PERRL, EOMI Ears: R TM - clear with good landmarks, L TM - clear with good landmarks Nose: purulent rhinorrhea, mucosa erythematous and swollen, sinus tenderness over maxillary sinuses bilateral, congested Oropharynx: moist without lesions Neck: supple and no adenopathy Heart: regular rate and rhythm, without murmur, rubs, clicks, gallops Lungs: clear to auscultation, without rales or wheeze, good air exchange Chest Wall: Symmetrical chest wall expansion, no retractions, chest wall nontender ASSESSMENT/PLAN: 1. Bacterial sinusitis - ICD9: 473.9, 041.9, ICD10: J32.9, B96.89 - Will begin treatment with Augmentin 875 mg PO BID for 10 days - The patient should also be given OTC cough and cold meds as needed for the first 5-7 days of treatment. - Supportive care with plenty of fluids, rest, and analgesia prn. - Follow up in 3-5 days if symptoms persist or worsen. - AMOXICILLIN 875 MG-POTASSIUM CLAVULANATE 125 MG TABLET Verito Lezama, MSN OR NURSE MANAGER.HEEL VARNISHER Referring Provider: SELF [[id number]] Allergies As of Date: 10/16/2018 Noted Allergy Reaction DILAUDID (HYDROMORPHONE (BULK)) 08/07/2006 7 - Swelling Comments: migraines LEVEMIR (INSULIN DETEMIR) 02/17/2014 14 - Other: See Comments Comments: Urine turned dark and smelly METHADONE 11/04/2013 7 - Swelling Comments: migraine MORPHINE 08/07/2006 7 - Swelling Comments: migraines REMICADE (INFLIXIMAB) 08/08/2006 5 - Intolerance Comments: broke out in blisters with the 6th dose. ULTRAM (TRAMADOL HCL) 04/07/2009 7 - Swelling Comments: migraines Date Reviewed: 10/16/2018 Reviewed by: Rachel Bellamy LPN - Fully Assessed Reason for Visit: Sinus Problem [99] Cmt: x 6 days Primary Visit Diagnosis:Bacterial sinusitis [J32.9, B96.89] Order(s):amoxicillin-clavulanic acid (AUGMENTIN) 875-125 mg per tabletTake 1 tablet by mouth every 12 hours.Disp: 20 tabletRfl: 0 Prescriptions as of 10/16/2018 Sig: INSULIN GLARGINE (U-100) 100 * Inject 60 Units subcutaneousl* NORETHINDRONE (CONTRACEPTIVE)* Take 1 tablet by mouth once d* BLOOD SUGAR DIAGNOSTIC STRIPS Test blood sugar(s) 2 times d* LANCETS Test blood sugar(s) 2 times d* BLOOD-GLUCOSE METER, DRUM-TYP* Accu-Check Compact Plus Meter* PREGABALIN 150 MG CAPSULE Take 1 capsule by mouth three* METFORMIN 1,000 MG TABLET Take 1 tablet by mouth twice * RANITIDINE 150 MG TABLET Take 1 tablet by mouth twice * CETIRIZINE 10 MG TABLET Take 1 tablet by mouth once d* SUMATRIPTAN 50 MG TABLET Take one(1) tablet daily as n* SITAGLIPTIN 50 MG TABLET Take 1 tablet by mouth once d* PEN NEEDLE, DIABETIC 32 GAUGE* Use once a day AMMONIUM LACTATE 12 % TOPICAL* Apply 1-2x a day for dry areas ACIDOPHILUS 100 MILLION CELL-* Take 1 cap daily COMPOUNDED PRESCRIPTION 1. V44.2 Ileostomy status (HC* OXYCODONE-ACETAMINOPHEN 5 MG-* Take 1 tablet by mouth every * TIZANIDINE 4 MG TABLET Take by mouth. . Takes 1 ta* COMPOUNDED PRESCRIPTION CAVILON no-sting barrier film* AMOXICILLIN 875 MG-POTASSIUM * Take 1 tablet by mouth every * DICYCLOMINE 10 MG CAPSULE Take 1 capsule by mouth three* BLOOD-GLUCOSE METER KIT 1 Each as needed. to check bl* Problem List As Of Date 10/16/2018 Noted Resolved REG ENTERITIS, LG INTEST [K50.10] INVALID FOR* RETENTION OF URINE UNSPEC [R33.9] INVALID FOR* Mixed hyperlipidemia [E78.2] INVALID FOR* Anemia, unspecified [D64.9] INVALID FOR*03/08/2012 LUMBAGO [M54.5] INVALID FOR* Nonspecific abnormal results of liver function *INVALID FOR*04/19/2011 More... Onychia and paronychia of toe [L03.039] INVALID FOR*02/18/2013 ILEOSTOMY STATUS [Z93.2] INVALID FOR* IMPAIRED GLUCOSE JUNE TEST [R73.09] INVALID FOR*04/16/2008 Insulin-requiring or dependent type II diabetes*INVALID FOR* Fibromyalgia [M79.7] INVALID FOR* More... Non-alcoholic fatty liver disease [K76.0] INVALID FOR* Mild dysplasia of cervix [N87.0] INVALID FOR*03/08/2012 Fibromyalgia [M79.7] 04/19/2011 Depression [F32.9] INVALID FOR* Eczematous dermatitis: hands [L30.9] INVALID FOR*02/18/2013 Xerosis cutis [L85.3] INVALID FOR*02/18/2013 Atopic eczema [L20.9] INVALID FOR* Other psoriasis [L40.8] INVALID FOR* Contact dermatitis and other eczema, due to uns*INVALID FOR*01/03/2017 Hypoglycemia [E16.2] INVALID FOR*03/08/2012 Migraine headache without aura [G43.009] INVALID FOR* Recurrent cold sores [B00.1] INVALID FOR* Sprain of wrist, left [S63.502A] INVALID FOR*05/24/2018 Vitamin B12 deficiency [E53.8] INVALID FOR* Chronic rhinitis [J31.0] INVALID FOR* 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 Encounter Status:Closed by VERITO LEZAMA CNP on 10/16/18 SURGICAL PATHOLOGY Observed: 09/26/2018 Status: F Source: [place] 11:19 AM [facility] REPOSITORY Specimen originated from [facility] Specimen #: [id number] Submitting Physician: SAFIA JAMIL DO FINAL DIAGNOSIS Endometrium, biopsy - Superficial sample of benign inactive endometrium, predominantly superficial endometrial epithelium. Yanelis Yo M.D. (Electronic Signature) SPECIMEN SUBMITTED A: ENDOMETRIAL, BIOPSY CLINICAL DATA AUB GROSS DESCRIPTION A. Received in formalin are multiple arroyo, soft feathery segments of tissue aggregating to 1.1 x 0.8 x 0.4 cm. Totally submitted in one cassette. Gross examination performed at [facility], [address] [place] [address] 09/27/2018 12:12:44 AM Date of Report: 09/27/2018 Date of Procedure: 09/26/2018 Date of Receipt: 09/26/2018 Submitted by: SAFIA JAMIL DO Location: [facility] Diagnostic interpretation performed at [address] [place] [address]. CNOV Observed: 09/26/2018 Status: COMPLETED Source: [place] 11:00 AM [facility] REPOSITORY Office Visit (WOOB) VANDANA LEZAMA ([id number]) 1975 F Date Time Provider Department 09/26/18 11:00 AM SAFIA JAMIL During your visit today, we recorded the following information about you: Blood pressure Weight 116/70 76.7 kg Safia Jamil MD 09/26/2018 11:19 AM Signed Vandana Bryson Teja is a 42 year old female who presents today for an endometrial biopsy for abnormal uterine bleeding. test: negative LMP 09/11/18 UNIVERSAL PROTOCOL / SAFETY CHECKLIST Procedure to be performed: Endometrial Biopsy Sign in Communication: Completed Time Out: Team Confirms the Correct Patient, Correct Procedure, Correct Site and Site Marking, Correct Position (if applicable), Prep and Dry Time (if applicable). Affirmation of Time Out: N/A Sign Out Discussion: Completed PROCEDURE: EXTERNAL GENITALIA: Normal in appearance without lesions VAGINA: Normal in appearance without lesions BIOPSY: Speculum placed into the vagina with excellent visualization of the cervix. Cervix cleaned with betadine. Anterior lip of cervix grasped with single toothed tenaculum. Uterus sounded to 6 cm after dilation of the cervix. The uterus was restroverted. Pipelle inserted into the uterus without difficulty and endometrial biopsy obtained. Specimen labeled and sent to pathology. Hemostasis achieved. Procedure Summary: Patient tolerated procedure well. ASSESSMENT: abnormal uterine bleeding PLAN: Specimens labeled and sent to Pathology. Will notify patient of results in 1-2 weeks. 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 Also discussed with patient the ovarian cyst has resolved on repeat US. She saw her PCP for the abdominal pain, and is going to see GI for further workup. DO Zeynep Tirado MA 09/26/2018 10:14 AM Signed YOUR RECOVERY After your biopsy you may have: ? Vaginal bleeding (less than a normal menstrual period) ? Mild cramping Do NOT put anything in the vagina for 1 week after your endometrial biopsy. This includes: ? tampons ? douches ? and refraining from having sexual intercourse If you have any discomfort, you may take an over the counter pain medication (motrin, advil, ibuprofen, tylenol, etc). If this does not relieve your discomfort, contact the office. It is okay to wear a sanitary pad until the discharge and spotting stops. RISKS Although problems seldom occur with endometrial biopsies, there can be some complications. You may feel faint during and shortly after the procedure as well as have some bleeding after the procedure. There is also a risk of infection after the procedure. These complications are rare and can be easily treated. You should contact you doctor is you have any of the following: ? Heavy bleeding (more than your normal period) ? Bleeding with clots ? Severe abdominal pain ? Fever (more than 100.4F) ? Foul smelling vaginal discharge RESULTS We will have the results of your biopsy in 1-2 weeks. If you do not hear the results of your biopsy after 2 weeks, please contact the office for the results. If you have any additional questions or concerns please do not hesitate to contact the office. Referring Provider: SAFIA JAMIL [[id number]] Allergies As of Date: 09/26/2018 Noted Allergy Reaction DILAUDID (HYDROMORPHONE (BULK)) 08/07/2006 7 - Swelling Comments: migraines LEVEMIR (INSULIN DETEMIR) 02/17/2014 14 - Other: See Comments Comments: Urine turned dark and smelly METHADONE 11/04/2013 7 - Swelling Comments: migraine MORPHINE 08/07/2006 7 - Swelling Comments: migraines REMICADE (INFLIXIMAB) 08/08/2006 5 - Intolerance Comments: broke out in blisters with the 6th dose. ULTRAM (TRAMADOL HCL) 04/07/2009 7 - Swelling Comments: migraines Date Reviewed: 09/26/2018 Reviewed by: Zeynep Kumar - Fully Assessed Reason for Visit: Endometrial Biopsy [7501] Primary Visit Diagnosis:Abnormal uterine bleeding (AUB) [N93.9] Order(s):HCG QUAL UR B/O [7275716] Order #: [id number] ENDOMETRIAL BIOPSY [1904711] Order #: [id number] SURGICAL PATHOLOGY [4258399] Order #: [id number] Prescriptions as of 09/26/2018 Sig: INSULIN GLARGINE (U-100) 100 * Inject 60 Units subcutaneousl* NORETHINDRONE (CONTRACEPTIVE)* Take 1 tablet by mouth once d* BLOOD SUGAR DIAGNOSTIC STRIPS Test blood sugar(s) 2 times d* LANCETS Test blood sugar(s) 2 times d* BLOOD-GLUCOSE METER, DRUM-TYP* Accu-Check Compact Plus Meter* METFORMIN 1,000 MG TABLET Take 1 tablet by mouth twice * RANITIDINE 150 MG TABLET Take 1 tablet by mouth twice * CETIRIZINE 10 MG TABLET Take 1 tablet by mouth once d* SUMATRIPTAN 50 MG TABLET Take one(1) tablet daily as n* SITAGLIPTIN 50 MG TABLET Take 1 tablet by mouth once d* PEN NEEDLE, DIABETIC 32 GAUGE* Use once a day AMMONIUM LACTATE 12 % TOPICAL* Apply 1-2x a day for dry areas ACIDOPHILUS 100 MILLION CELL-* Take 1 cap daily COMPOUNDED PRESCRIPTION 1. V44.2 Ileostomy status (HC* OXYCODONE-ACETAMINOPHEN 5 MG-* Take 1 tablet by mouth every * TIZANIDINE 4 MG TABLET Take by mouth. . Takes 1 ta* COMPOUNDED PRESCRIPTION CAVILON no-sting barrier film* DICYCLOMINE 10 MG CAPSULE Take 1 capsule by mouth three* PREGABALIN 150 MG CAPSULE Take 1 capsule by mouth three* BLOOD-GLUCOSE METER KIT 1 Each as needed. to check bl* Problem List As Of Date 09/26/2018 Noted Resolved REG ENTERITIS, LG INTEST [K50.10] INVALID FOR* RETENTION OF URINE UNSPEC [R33.9] INVALID FOR* Mixed hyperlipidemia [E78.2] INVALID FOR* Anemia, unspecified [D64.9] INVALID FOR*03/08/2012 LUMBAGO [M54.5] INVALID FOR* Nonspecific abnormal results of liver function *INVALID FOR*04/19/2011 More... Onychia and paronychia of toe [L03.039] INVALID FOR*02/18/2013 ILEOSTOMY STATUS [Z93.2] INVALID FOR* IMPAIRED GLUCOSE JUNE TEST [R73.02] INVALID FOR*04/16/2008 Insulin-requiring or dependent type II diabetes*INVALID FOR* Fibromyalgia [M79.7] INVALID FOR* More... Non-alcoholic fatty liver disease [K76.0] INVALID FOR* Mild dysplasia of cervix [N87.0] INVALID FOR*03/08/2012 Fibromyalgia [M79.7] 04/19/2011 Depression [F32.9] INVALID FOR* Eczematous dermatitis: hands [L30.9] INVALID FOR*02/18/2013 Xerosis cutis [L85.3] INVALID FOR*02/18/2013 Atopic eczema [L20.9] INVALID FOR* Other psoriasis [L40.8] INVALID FOR* Contact dermatitis and other eczema, due to uns*INVALID FOR*01/03/2017 Hypoglycemia [E16.2] INVALID FOR*03/08/2012 Migraine headache without aura [G43.009] INVALID FOR* Recurrent cold sores [B00.1] INVALID FOR* Sprain of wrist, left [S63.502A] INVALID FOR*05/24/2018 Vitamin B12 deficiency [E53.8] INVALID FOR* Chronic rhinitis [J31.0] INVALID FOR* 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 Vaginal bleeding (less than a normal menstrual period) ? Mild cramping Do NOT put anything in the vagina for 1 week after your endometrial biopsy. This includes: ? tampons ? douches ? and refraining from having sexual intercourse If you have any discomfort, you may take an over the counter pain medication (motrin, advil, ibuprofen, tylenol, etc). If this does not relieve your discomfort, contact the office. It is okay to wear a sanitary pad until the discharge and spotting stops. RISKS Although problems seldom occur with endometrial biopsies, there can be some complications. You may feel faint during and shortly after the procedure as well as have some bleeding after the procedure. There is also a risk of infection after the procedure. These complications are rare and can be easily treated. You should contact you doctor is you have any of the following: ? Heavy bleeding (more than your normal period) ? Bleeding with clots ? Severe abdominal pain ? Fever (more than 100.4F) ? Foul smelling vaginal discharge RESULTS We will have the results of your biopsy in 1-2 weeks. If you do not hear the results of your biopsy after 2 weeks, please contact the office for the results. If you have any additional questions or concerns please do not hesitate to contact the office. Follow-up and Disposition History Recorded Encounter Status:Closed by SAFIA JAMIL MD on 09/26/18 PROGRESS Observed: 09/26/2018 Status: COMPLETED Source: [place] 10:14 AM [facility] REPOSITORY HNO ID: [id number] Author: Safia Jamil Service: (none) Author Type: Physician Type: Progress Notes Filed: 09/26/2018 11:19 AM Note Text: Vandana Lezama is a 42 year old female who presents today for an endometrial biopsy for abnormal uterine bleeding. test: negative LMP 09/11/18 UNIVERSAL PROTOCOL / SAFETY CHECKLIST Procedure to be performed: Endometrial Biopsy Sign in Communication: Completed Time Out: Team Confirms the Correct Patient, Correct Procedure, Correct Site and Site Marking, Correct Position (if applicable), Prep and Dry Time (if applicable). Affirmation of Time Out: N/A Sign Out Discussion: Completed PROCEDURE: EXTERNAL GENITALIA: Normal in appearance without lesions VAGINA: Normal in appearance without lesions BIOPSY: Speculum placed into the vagina with excellent visualization of the cervix. Cervix cleaned with betadine. Anterior lip of cervix grasped with single toothed tenaculum. Uterus sounded to 6 cm after dilation of the cervix. The uterus was restroverted. Pipelle inserted into the uterus without difficulty and endometrial biopsy obtained. Specimen labeled and sent to pathology. Hemostasis achieved. Procedure Summary: Patient tolerated procedure well. ASSESSMENT: abnormal uterine bleeding PLAN: Specimens labeled and sent to Pathology. Will notify patient of results in 1-2 weeks. 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 Also discussed with patient the ovarian cyst has resolved on repeat US. She saw her PCP for the abdominal pain, and is going to see GI for further workup. Safia Jamil DO PROGRESS Observed: 09/25/2018 Status: COMPLETED Source: [place] 10:42 AM [facility] REPOSITORY HNO ID: [id number] Author: Safia Jamil Service: (none) Author Type: Physician Type: Progress Notes Filed: 09/25/2018 10:42 AM Note Text: Can you please let the patient know her pelvic US is normal? The ovarian cyst noted on her prior US has resolved. Thanks! PROGRESS Observed: 09/24/2018 Status: COMPLETED Source: [place] 9:38 AM [facility] REPOSITORY O ID: [id number] Author: Franc Mathur Service: (none) Author Type: Physician Type: Progress Notes Filed: 09/24/2018 9:43 AM Note Text: A normal sized anteverted uterus with the measurements shown below. The endometrial echo measures 2.8 mm. The endometrial cavity appears normal. The myometrium appears normal. The right ovary shows a simple sonolucent cyst with a mean diameter of 16 mm. The left ovary appears normal. There is no free fluid in the cul de sac IMPRESSION: A simple sonolucent cyst is located on the right ovary ORTHOPEDIC VISIT Observed: 09/20/2018 Status: F Source: [place] REPORT 3:21 PM [facility] REPOSITORY [facility] [address] [place] [address] OFFICE VISIT Date of Service: 09/20/18 MR#: [id number] Acct: [id number] Name: VANDANA LEZAMA Rep #: [id number] : 1975 Provider: aLra Reeder DO Age/Sex: 42/F Location: [facility] [place] [place] Status: Signed Intake Intake Visit Reasons: 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 Accompanied by: None Is patient in pain?: Yes (left shoulder) Pain scale (1-10): 8 Allergies infliximab [From Remicade] Allergy (Verified 08/14/18 11:09) Rash morphine Allergy (Verified 08/14/18 10:37) Swelling Medications Metformin HCl [Glucophage] 1,000 mg PO BIDCM 03/06/17 [History Confirmed 08/14/18] Ranitidine [Zantac] 150 mg PO BID PRN 03/06/17 [History Confirmed 08/14/18] Sitagliptin Phosphate [Januvia] 50 mg PO DAILY 03/06/17 [History Confirmed 08/14/18] Tizanidine HCl [Zanaflex] 1 - 2 tab PO BID 03/06/17 [History Confirmed 08/14/18] oxycodone-acetaminophen 5 mg-325 mg tablet 1 tab PO TID 06/28/18 [History Confirmed 08/14/18] norethindrone (contraceptive) 0.35 mg tablet 0.35 mg PO DAILY 09/20/18 [History Confirmed 09/20/18] PFSH Social History Smoking Status: Former smoker HPI Bilat Shoulders: Details: VANDANA LEZAMA is a 42 year old F here today for bilateral shoulder pain. Patient states her left shoulder is hurting worse than the right and rates it at a 8/10 and describes as an ache. States that if she move it occasionally it pops and then espinosa. Does hear grinding and burning. Patient states that occasionally her arm and down to her fingers do go numb along with tingling. Patient would like to have injections in both her shoulders today. Ortho Exam Right Shoulder Skin/Wound: Yes CDI Contralateral Normal: No Testing: Positive AROM-Forward Elevation 0-180 Left Shoulder Skin/Wound: Yes CDI Testing: Yes Hawkin's, Yes AROM-Forward Elevation 0-180 Office Procedures Ortho Injections Injections Yes Subacromial Injection Bilateral Details: Obtained consent for injection. Under sterile conditions, injected the patients left and right subacromial injection with a 10cc cocktail of 8cc bupivacaine and 2cc kenalog. The patient tolerated the injection well without any noted complication. Patient should call our office if redness develops, pain worsens or if they have any concerns. Office Meds Joy Performing Provider: Lara Reeder DO Administered by: Lara Reeder DO on 09/20/18 13:27 Dose Route Admin Location Lot Number Expiration DateNDC Signal Supervisor 80 mg Intra-Articularbilat [id number] 10/13/19 4938-4494-61 [facility] Assessment AND Plan 1. Chronic pain of both shoulders M25.511; M25.512; G89.29 Plan Patient understand the risks and benefits of injections, the length of time between them and the symptoms to watch for. We can see her for the left elbow pain and ulnar sensation changes at next visit and talk with Dr Stern regarding her neck. Follow up as needed or sooner if pain, swelling, numbness or associated symptoms, or concerns develop. All questions answered. Patient in agreement of plan. 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) 09/20/18 1521 <Electronically signed by Lara Reeder DO> Date Lara Reeder DO Cosigner Signature: Date (if applicable) CC: PROGRESS Observed: 09/06/2018 Status: COMPLETED Source: [place] 1:[facility] PM [facility] HNO ID: [id number] Author: Chris Madison Service: (none) Author Type: Physician Type: Progress Notes Filed: 09/06/2018 1:49 PM Note Text: Vandana Lezama is an 42 year old reproductive age woman who presents with pelvic pain and ovarian cyst She has been to ER with pelvic pain and cyst of ovary She has not had a pap since 2014 Hx 1 abnormal pap in her 20s Hx IDDM She keeps getting shooting pain from stoma that was put in 1999, has never followed up to have stoma checked She is not currently sexually active No other gynecological problems at this time LMP: Patient's last menstrual period was 07/25/2018. PAST SURGICAL HISTORY Procedure Laterality Date - EPIDURAL multiple ones done by Dr. 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 Mc, [facility] - Type II or unspecified type diabetes mellitus without mention of complication, not stated as uncontrolled FAMILY HISTORY Problem Relation Age of Onset - Alcohol/Drug Mother - Hypertension Mother COPD - other (vascular disease) Mother - Alcohol/Drug Father - Cancer Father liver - Diabetes Maternal Grandmother - Stroke Maternal Grandmother - Heart Maternal Grandmother - Diabetes Paternal Grandfather - Emphysema Paternal Grandmother Social History Marital status: Spouse name: Carin Years of education: 12 Number of children: 1 Occupational History 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 HEENT: No change in hearing or vision, no nose bleeds or other nasal problems. Negative for frequent or significant headaches. NECK: Negative for lumps, goiter, pain and significant neck swelling. RESPIRATORY: Negative for cough, wheezing and shortness of breath. CARDIOVASCULAR: Negative for chest pain, leg swelling and palpitations. GASTROINTESTINAL: Negative for abdominal discomfort, blood in stools or black stools and change in bowel habits. OBJECTIVE: General Appearance: Cooperative, in no acute distress, alert. Psychiatric: Normal attitude, awareness, and intellectual functioning. Skin: Color normal, Vascularity normal, No evidence of bleeding or bruising, No lesions noted, No edema, Temperature normal, Texture normal, Mobility and turgor normal, Nails normal without clubbing Pelvic examination: External genitalia Normal, and vagina normal. CHANGER FIXER: normal vaginal mucosa, normal discharge, no bleeding Bimanual: ovarian cyst LABS AND IMAGING: US FEMALE PELVIS TRANSVAG (08/09/2018): IMPRESSION: Unilocular cystic mass left ovary not significantly changed from CT. This is almost certainly benign and likely represents a hemorrhagic cyst. This can be followed up sonographically as clinically Indicated. CT ABDOMEN WO IVCON (08/07/2018): IMPRESSION: 5 cm lower left pelvic cystic lesion, likely ovarian in origin. ? Transvaginal ultrasound is recommended. Mild hepatomegaly with steatosis, not significantly changed PAP FLUID SCREEN (12/30/2014): Satisfactory for interpretation. No endocervical component. Negative for intraepithelial lesion or malignancy. Predominance of coccobacilli consistent with shift in vaginal aleksandar. HEMOGLOBIN A1C (POC) (09/06/2018): Component Value Range AND Units Status Performing Lab Hemoglobin A1C (POCT) 8.1 (A) 4.2 - 5.6 % ASSESSMENT: Patient medication list was updated., Problem list reviewed and updated and discussed hemorrhagic cyst. control ordered for management of ovarian cyst with repeat US and biopsy. All questions answered. PLAN: 1. Hemorrhagic ovarian cyst- ICD-10. N83.209 - SHE HAS US SCHEDULED FOR September 2018 - Endometrial biopsy scheduled - MICRONOR DAILY FOR 1 YEAR as she has hx of fatty liver 2. H/O ileostomy- ICD-10. Z98.890 - Recommended to see general surgey ATTESTATION: By signing my name below, ILeela, attest that this documentation has been prepared under the direction and in the presence of Chris Madison MD. Electronically signed: Andrew Mota, September 06, 2018 1:15 PM Chris Ruelas MD, personally performed the services described in this documentation. All medical record entries made by the andrew were at my direction and in my presence. I have reviewed the chart and discharge instructions (if applicable) and agree that the record reflects my personal performance and is accurate and complete. Chris Madison MD September 06, 2018 1:15 PM CNOV Observed: 09/06/2018 Status: COMPLETED Source: [place] 1:00 PM [facility] REPOSITORY Office Visit (GYNMN) VANDANA LEZAMA ([id number]) 1975 F Date Time Provider Department 09/06/18 1:00 PM CHRIS MADISON GYNMN During your visit today, we recorded the following information about you: Blood pressure Weight Height Last Period 130/71 79.4 kg 1.511 m 07/25/18 Marley Shirley [facility] [place] 09/06/2018 1:12 PM Signed Pt.c/o pelvic pain and ovarian cyst Last pap:12/30/2014-negative Last HPV:12/30/2014-negative NOTE OF PERSONAL INVOLVEMENT IN CARE: I was personally present and witnessed the Staff Physician examine and staff genetic counselor the patient. Tomasa Saleh MD 09/06/2018 1:49 PM Signed Vandana Bryson Teja is an 42 year old reproductive age woman who presents with pelvic pain and ovarian cyst She has been to ER with pelvic pain and cyst of ovary She has not had a pap since 2014 Hx 1 abnormal pap in her 20s Hx IDDM She keeps getting shooting pain from stoma that was put in 1999, has never followed up to have stoma checked She is not currently sexually active No other gynecological problems at this time LMP: Patient's last menstrual period was 07/25/2018. PAST SURGICAL HISTORY Procedure Laterality Date - EPIDURAL multiple ones done by Dr. 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 Mc, [facility] - Type II or unspecified type diabetes mellitus without mention of complication, not stated as uncontrolled FAMILY HISTORY Problem Relation Age of Onset - Alcohol/Drug Mother - Hypertension Mother COPD - other (vascular disease) Mother - Alcohol/Drug Father - Cancer Father liver - Diabetes Maternal Grandmother - Stroke Maternal Grandmother - Heart Maternal Grandmother - Diabetes Paternal Grandfather - Emphysema Paternal Grandmother Social History Marital status: Spouse name: Carin Years of education: 12 Number of children: 1 Occupational History 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 HEENT: No change in hearing or vision, no nose bleeds or other nasal problems. Negative for frequent or significant headaches. NECK: Negative for lumps, goiter, pain and significant neck swelling. RESPIRATORY: Negative for cough, wheezing and shortness of breath. CARDIOVASCULAR: Negative for chest pain, leg swelling and palpitations. GASTROINTESTINAL: Negative for abdominal discomfort, blood in stools or black stools and change in bowel habits. OBJECTIVE: General Appearance: Cooperative, in no acute distress, alert. Psychiatric: Normal attitude, awareness, and intellectual functioning. Skin: Color normal, Vascularity normal, No evidence of bleeding or bruising, No lesions noted, No edema, Temperature normal, Texture normal, Mobility and turgor normal, Nails normal without clubbing Pelvic examination: External genitalia Normal, and vagina normal. CHANGER FIXER: normal vaginal mucosa, normal discharge, no bleeding Bimanual: ovarian cyst LABS AND IMAGING: US FEMALE PELVIS TRANSVAG (08/09/2018): IMPRESSION: Unilocular cystic mass left ovary not significantly changed from CT. This is almost certainly benign and likely represents a hemorrhagic cyst. This can be followed up sonographically as clinically Indicated. CT ABDOMEN WO IVCON (08/07/2018): IMPRESSION: 5 cm lower left pelvic cystic lesion, likely ovarian in origin. ? Transvaginal ultrasound is recommended. Mild hepatomegaly with steatosis, not significantly changed PAP FLUID SCREEN (12/30/2014): Satisfactory for interpretation. No endocervical component. Negative for intraepithelial lesion or malignancy. Predominance of coccobacilli consistent with shift in vaginal aleksandar. HEMOGLOBIN A1C (POC) (09/06/2018): Component Value Range AND Units Status Performing Lab Hemoglobin A1C (POCT) 8.1 (A) 4.2 - 5.6 % ASSESSMENT: Patient medication list was updated., Problem list reviewed and updated and discussed hemorrhagic cyst. control ordered for management of ovarian cyst with repeat US and biopsy. All questions answered. PLAN: 1. Hemorrhagic ovarian cyst- ICD-10. N83.209 - SHE HAS US SCHEDULED FOR September 2018 - Endometrial biopsy scheduled - MICRONOR DAILY FOR 1 YEAR as she has hx of fatty liver 2. H/O ileostomy- ICD-10. Z98.890 - Recommended to see general surgey ATTESTATION: By signing my name below, I, Leela Gottlieb, attest that this documentation has been prepared under the direction and in the presence of Chris Madison MD. Electronically signed: Andrew Mota, September 06, 2018 1:15 PM I, Chris Madison MD, personally performed the services described in this documentation. All medical record entries made by the andrew were at my direction and in my presence. I have reviewed the chart and discharge instructions (if applicable) and agree that the record reflects my personal performance and is accurate and complete. Chris Madison MD September 06, 2018 1:15 PM Referring Provider: SOPHY HARRISON [[id number]] Allergies As of Date: 09/06/2018 Noted Allergy Reaction DILAUDID (HYDROMORPHONE (BULK)) 08/07/2006 7 - Swelling Comments: migraines LEVEMIR (INSULIN DETEMIR) 02/17/2014 14 - Other: See Comments Comments: Urine turned dark and smelly METHADONE 11/04/2013 7 - Swelling Comments: migraine MORPHINE 08/07/2006 7 - Swelling Comments: migraines REMICADE (INFLIXIMAB) 08/08/2006 5 - Intolerance Comments: broke out in blisters with the 6th dose. ULTRAM (TRAMADOL HCL) 04/07/2009 7 - Swelling Comments: migraines Date Reviewed: 09/06/2018 Reviewed by: Leela Gottlieb - Fully Assessed Primary Visit Diagnosis:Hemorrhagic ovarian cyst [N83.209] Other Visit Diagnosis:H/O ileostomy [Z98.890] Order(s):Norethindrone, Contraceptive, (ORTHO MICRONOR) 0.35 mg tabletTake 1 tablet by mouth once daily.Disp: 3 PackageRfl: 4 Prescriptions as of 09/06/2018 Sig: INSULIN GLARGINE (U-100) 100 * Inject 60 Units subcutaneousl* NORETHINDRONE (CONTRACEPTIVE)* Take 1 tablet by mouth once d* DICYCLOMINE 10 MG CAPSULE Take 1 capsule by mouth three* BLOOD SUGAR DIAGNOSTIC STRIPS Test blood sugar(s) 2 times d* LANCETS Test blood sugar(s) 2 times d* BLOOD-GLUCOSE METER, PASTOR-TYP* Accu-Check Compact Plus Meter* PREGABALIN 150 MG CAPSULE Take 1 capsule by mouth three* METFORMIN 1,000 MG TABLET Take 1 tablet by mouth twice * RANITIDINE 150 MG TABLET Take 1 tablet by mouth twice * CETIRIZINE 10 MG TABLET Take 1 tablet by mouth once d* SUMATRIPTAN 50 MG TABLET Take one(1) tablet daily as n* SITAGLIPTIN 50 MG TABLET Take 1 tablet by mouth once d* PEN NEEDLE, DIABETIC 32 GAUGE* Use once a day AMMONIUM LACTATE 12 % TOPICAL* Apply 1-2x a day for dry areas ACIDOPHILUS 100 MILLION CELL-* Take 1 cap daily BLOOD-GLUCOSE METER KIT 1 Each as needed. to check bl* COMPOUNDED PRESCRIPTION 1. V44.2 Ileostomy status (HC* OXYCODONE-ACETAMINOPHEN 5 MG-* Take 1 tablet by mouth every * TIZANIDINE 4 MG TABLET Take by mouth. . Takes 1 ta* COMPOUNDED PRESCRIPTION CAVILON no-sting barrier film* Problem List As Of Date 09/06/2018 Noted Resolved REG ENTERITIS, LG INTEST [K50.10] INVALID FOR* RETENTION OF URINE UNSPEC [R33.9] INVALID FOR* Mixed hyperlipidemia [E78.2] INVALID FOR* Anemia, unspecified [D64.9] INVALID FOR*03/08/2012 LUMBAGO [M54.5] INVALID FOR* Nonspecific abnormal results of liver function *INVALID FOR*04/19/2011 More... Onychia and paronychia of toe [L03.039] INVALID FOR*02/18/2013 ILEOSTOMY STATUS [Z93.2] INVALID FOR* IMPAIRED GLUCOSE JUNE TEST [R73.02] INVALID FOR*04/16/2008 Insulin-requiring or dependent type II diabetes*INVALID FOR* Fibromyalgia [M79.7] INVALID FOR* More... Non-alcoholic fatty liver disease [K76.0] INVALID FOR* Mild dysplasia of cervix [N87.0] INVALID FOR*03/08/2012 Fibromyalgia [M79.7] 04/19/2011 Depression [F32.9] INVALID FOR* Eczematous dermatitis: hands [L30.9] INVALID FOR*02/18/2013 Xerosis cutis [L85.3] INVALID FOR*02/18/2013 Atopic eczema [L20.9] INVALID FOR* Other psoriasis [L40.8] INVALID FOR* Contact dermatitis and other eczema, due to uns*INVALID FOR*01/03/2017 Hypoglycemia [E16.2] INVALID FOR*03/08/2012 Migraine headache without aura [G43.009] INVALID FOR* Recurrent cold sores [B00.1] INVALID FOR* Sprain of wrist, left [S63.502A] INVALID FOR*05/24/2018 Vitamin B12 deficiency [E53.8] INVALID FOR* Chronic rhinitis [J31.0] INVALID FOR* 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*INVALID FOR* 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] INVALID FOR* Vitreous floaters of both eyes [H43.393] INVALID FOR* Visit Notes: >> Marley Shirley [facility] Sep 06, 2018 1:11 PM Status: Signed Pt.c/o pelvic pain and ovarian cyst Last pap:12/30/2014-negative Last HPV:12/30/2014-negative NOTE OF PERSONAL INVOLVEMENT IN CARE: I was personally present and witnessed the Staff Physician examine and staff genetic counselor the patient. Marley Shirley Ma Prescriptions ordered this encounter Disp Refills Start End NORETHINDRONE (CONTRACEPTIVE) 0.35 M* 3 Pa* 4 09/06/2018 Route: ORAL Sig: Take 1 tablet by mouth once daily. Encounter Status:Closed by CHRIS MADISON MD on 09/06/18 CNOV Observed: 09/06/2018 Status: COMPLETED Source: [place] 9:10 AM [facility] REPOSITORY Office Visit (ENDCMN) VANDANA LEZAMA ([id number]) 1975 F Date Time Provider Department 09/06/18 9:10 AM SOPHY HARRISON ENDCMN During your visit today, we recorded the following information about you: Pulse Blood pressure Weight 85/minute 130/71 79.4 kg Tana Lopez LPN 09/06/2018 8:31 AM Addendum Check blood sugars 2x a day, different times of the day Report if low blood sugar Thank you for choosing the [facility] Department of Endocrinology, Diabetes and Metabolism. Being able to provide excellent health care has allowed us to be # 3 in the country according to [employer]. Did you know that you need to call 48 hours in advance of your scheduled visit, if you are unable to make your appointment? The Endocrinology and Metabolism [facility] thanks you for your commitment, because patients not showing to their appointment results in a lost opportunity for patients to receive [facility] health care at the [facility]. To Cancel an appointment, please choose one of the following: - Call the Appointment Call Center at [phone] - From [employer], Go to Appointments ? Cancel Appts If cancelling, consider your need to reschedule to prevent further delays in your care. To Schedule an appointment, please choose one of the following: - Call the Appointment Call Center at [phone] - From [employer], Go to Appointments ? Request an Appt + M.Mony Harrison MD 09/06/2018 1:30 PM Signed HISTORY Ms Vandana Lezama is a 42 year old female who comes in here for follow-up of Type 2 DM - retinal hole, +neuropathy from cervical problems Dyslipidemia and fatty liver- elevated liver enzymes Steroid injections Low bone mass DIABETES Diagnosed DM in 2006, was having reactive hypoglycemia History of diabetes medications: Metformin started first Januvia started 2011 Glyburide caused lows 50s Lantus Current diabetes medications: Lantus - 60 units at bedtime, skips if fasting BG <110. Has needed to take regularly as her BG have been running high Metformin 1000 mg BID Januvia 50 mg daily Brought meter Am 120-200 Hypoglycemias: none Was on atorvastatin, stopped, wanting to go holistic, Using essic and dandelion root STEROIDS/BONE Has ileostomy bag Has Crohn's - no steroids for this, has ileostomy No steroid injections in the last 2 months Last steroid injection on Jul 17 Diet Breakfast Lunch Dinner Snacks Exercise: Type- Aerobic activity, goes out to the [employer], sometimes hunts Frequency- 7 times/week Duration- 2 hours PMHx: Ovarian cyst BARNES RA LDL chol high, does not like statin SocHx: Denies smoking. Occasional alcohol. 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 +frequency OVEN TENDER: regular menses MUSCULOSKELETAL: no joint pain, no muscle ache SKIN: +eczema across chest, psoriasis flaring up again, no ulcers PSYCH: good mood, no anxiety HEMATOLOGY/LYMPHOLOGY: Negative for prolonged bleeding, bruising easily or swollen nodes ENDOCRINE: See HPI NEURO: No headaches, no focal weakness/numbness Component Latest Ref Rng AND Units 01/23/2018 05/24/2018 08/30/2018 09/06/2018 WBC 3.70 - 11.00 k/uL 8.16 RBC 3.90 - 5.20 m/uL 5.20 Hemoglobin 11.5 - 15.5 g/dL 14.6 Hematocrit 36.0 - 46.0 % 45.7 MCV 80.0 - 100.0 fL 87.9 MCH 26.0 - 34.0 pG 28.1 MCHC 30.5 - 36.0 g/dL 31.9 RDW-CV 11.5 - 15.0 % 13.0 Platelet Count 150 - 400 k/uL 234 MPV 9.0 - 12.7 fL 11.9 Neut% % 50.6 Abs Neut (ANC) 1.45 - 7.50 k/uL 4.13 Lymph% % 40.3 Abs Lymph 1.00 - 4.00 k/uL 3.29 [place]% % 6.6 Abs [place] <0.87 k/uL 0.54 Eosin% % 1.5 Abs Eosin <0.46 k/uL 0.12 Baso% % 1.0 Abs Baso <0.11 k/uL 0.08 Nucleated Reds 0 /100 WBC 0.0 Absolute nRBC <0.01 k/uL <0.01 Diff Type Auto Diff Protein, Total 6.3 - 8.0 g/dL 7.5 Albumin 3.9 - 4.9 g/dL 4.4 Calcium 8.5 - 10.2 mg/dL 9.8 10.2 Bilirubin, Total 0.2 - 1.3 mg/dL 0.3 Alkaline Phosphatase 34 - 123 U/L 136 (H) AST 13 - 35 U/L 70 (H) 69 (H) Glucose 74 - 99 mg/dL 161 (H) 309 (H) BUN 7 - 21 mg/dL 10 6 (L) Creatinine 0.58 - 0.96 mg/dL 0.54 (L) 0.61 Sodium 136 - 144 mmol/L 137 138 Potassium 3.7 - 5.1 mmol/L 3.9 4.1 Chloride 97 - 105 mmol/L 100 99 CO2 22 - 30 mmol/L 21 (L) 24 Anion Gap 9 - 18 mmol/L 16 15 ALT 7 - 38 U/L 86 (H) 93 (H) eGFR- >60 >60 eGFR-All Other Races . >60 >60 Cholesterol, Total <200 mg/dL 235 (H) Triglyceride <150 mg/dL 148 HDL Cholesterol >39 mg/dL 52 LDL Cholesterol <100 mg/dL 153 (H) Non HDL Cholesterol <130 mg/dL 183 (H) Fasting Time hrs 10 VLDL Cholesterol <30 mg/dL 30 (H) TC:HDL Ratio <5.10 4.52 LDL:HDL Ratio <2.54 2.94 (H) Creatinine, Ur Random (UCRR) 20 - 300 mg/dL 81.5 Albumin, Urine Random 0.0 - 23.0 mg/L <12.0 Albumin/Creat Ratio 0 - 30 mg/g Not calculated Hemoglobin A1C 4.3 - 5.6 % 7.1 (H) Estimated Average Glucose mg/dL 157 Vitamin B12 232 - 1,245 pg/mL 932 Vitamin D 25 Hydroxy 31.0 - 80.0 ng/mL 32.3 Hemoglobin A1C (POCT) 4.2 - 5.6 % 7.5 (A) 8.1 (A) 04/21/2017 ?8:00 AM - Interface, Results In Impression IMPRESSION: THE LOWEST Z-SCORE IS: -2.3 DIAGNOSIS (based on BMD alone): ?Below that expected for age Caution: Medical conditions other than osteoporosis may cause low bone density, such as osteomalacia or renal osteodystrophy. ?Clinical correlation is necessary. FRACTURE RISK (based on BMD alone): ?May be increased Caution: Fracture risk may be increased independent of BMD in patients with corticosteroid use, age greater than 65 years, or a history of prior fragility fracture. FRACTURE RISK - FRAX 10-Year Probability of Fracture ?Hip Fracture: ?0.4 % ?Major Osteoporotic Fracture: ?4.0 % According to the National Osteoporosis Foundation (NOF), healthcare providers should consider FDA-approved medical therapies in postmenopausal women and men aged 50 years and older, based on the following: * ?A hip or vertebral (clinical or morphometric) fracture * ?T-score less than or equal to -2.5 at the femoral neck or spine after appropriate evaluation to exclude secondary causes * ?Low bone mass (T-score between -1.0 and -2.5 at the femoral neck or spine) AND a 10-year probability of a hip fracture greater than or equal to 3% OR a 10-year probability of a major osteoporosis-related fracture greater than or equal to 20% based on the US-adapted WHO FRAX algorithm in a previously untreated patient * ?Clinician's judgment and/or patient preferences may indicate treatment for people with 10-year fracture probabilities above or below these levels RECOMMENDATIONS All patients should consume adequate sources of calcium and vitamin D, as clinically indicated. ?The NOF supports the National Academy of Sciences recommendation that women older than age 50 consume at least 1,200 mg per day of calcium. ? Adults aged 19 to 70 years require at least 600 IU/day of vitamin D to maximize bone health. ?However, serum 25(OH)D should be maintained above 30 ng/mL, and 1500 to 2000 IU/day of vitamin D may be required. Weight bearing exercises and strength training should be considered. Smoking cessation, and moderation of intake of alcohol, caffeine and carbonated beverages are recommended. Follow-up in 2 years or as clinically indicated. ?Patients that are taking corticosteroids, are transplant recipients, or have hyperparathyroidism should have annual follow-up. ?Follow- up scans should always be done on the same machine for accurate comparison. Interpreted by: Pema Wright MS, , CCD, FACE FOR MORE INFORMATION: National Osteoporosis Foundation: ?www.nof.org International Society of Clinical Densitometry: ?www.iscd.org Senior Project Manager Engineering: SANTOS ? Transcribe Date/Time: Apr ?7:43A Dictated by : PEMA WRIGHT MD This examination was interpreted and the report reviewed and electronically signed by: PEMA WRIGHT MD on Apr ?7:54AM ?EST Results-Findings * * *Final Report* * * DATE OF EXAM: Apr ?8:56AM ? M6B ? 5714 ?- ?BD AP SPINE/HIP -NB ?/ PROCEDURE REASON: calcium clinic - bone density ?? ? * * * * Physician Interpretation * * * * ?EXAM: DXA - ?BONE DENSITOMETRY ENDOCRINE CALCIUM CLINIC PATIENT DEMOGRAPHICS ?Age: 41, ?Race: C Gender: F ?Height: 152.4 cm, ? Weight: 76.7 Kg, BMI: 33.01 Kg/m2 SCANNER INFORMATION Model of DXA scanner: Human Demand Site of DXA scanner: [facility] Sites scanned: Lumbar spine, ?left hip Date of scan: 04-20-2017 Previous scan(s): 09-22-2014 RISK FACTORS FOR OSTEOPOROSIS AND ASSOCIATED FRACTURES REPORTED BY THE PATIENT Family history of osteoporosis in a first degree relative, ?Family history of a fragility fracture in a first degree relative, Current corticosteroid therapy, Type 2 Diabetes, ?Crohn's disease with ileostomy., ?Lactose intolerance. CURRENT THERAPY Calcium supplements TECHNICAL LIMITATIONS OF THIS DXA The greater trochanter may not have been positioned fully against the DXA table therefore the total hip BMD may be artificially low. 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 Mc, [facility] - Type II or unspecified type diabetes mellitus without mention of complication, not stated as uncontrolled PAST SURGICAL HISTORY Procedure Laterality Date - EPIDURAL multiple ones done by Dr. Beckett, last one in 04/2011 - KNEE SCOPE,DIAGNOSTIC 1989 Arthroscopy, knee, left - OP BRONCHOS DIAG, W/WO WASHING January 2007 Bronchoscopy - PAST SURGICAL HISTORY OF 06/2000 ILEOSTOMY/COLECTOMY - PAST SURGICAL HISTORY OF 1993 CRYOCAUTERY/ MILD DYSPLASIA - PAST SURGICAL HISTORY OF March 2006 Abdominal abscess with anal fistula - PROCTECTOMY,COMPL,COLECTOMY,BX'S 2006 AP endoanal proctectomy - REMOVAL ADENOIDS,PRIMARY,<12 Y/O as child Adenoidectomy - REMOVAL OF TONSILS,<12 Y/O AGE 11 Tonsillectomy Social History Substance Use Topics - Smoking status: Former Smoker Packs/day: 1.00 Years: 16.00 Types: Cigarettes Quit date: 12/04/2006 - Smokeless tobacco: Never Used - Alcohol use No FAMILY HISTORY Problem Relation Age of Onset - Alcohol/Drug Mother - Hypertension Mother COPD - other (vascular disease) Mother - Alcohol/Drug Father - Cancer Father liver - Diabetes Maternal Grandmother - Stroke Maternal Grandmother - Heart Maternal Grandmother - Diabetes Paternal Grandfather - Emphysema Paternal Grandmother Current Outpatient Prescriptions: dicyclomine (BENTYL) 10 mg capsule Take 1 capsule by mouth three times daily as needed (pelvic pain). LANTUS SOLOSTAR U-100 INSULIN 100 unit/mL (3 mL) inpn INJECT 45 UNITS SUBCUTANEOUSLY AT BEDTIME. INCREASE TO 60 UNITS AT BEDTIME DIRECTED FOR HIGH SUGARS. blood sugar diagnostic (BLOOD GLUCOSE TEST) test strip Test blood sugar(s) 2 times daily. Dx: Type 2 DM - Controlled E11.9 Insulin: No, Accu-check brand covered by insurance Lancets (ACCU-CHEK MULTICLIX LANCET) lancets Test blood sugar(s) 2 times daily. Dx: Type 2 DM - Controlled E11.9 Insulin: No Blood-Glucose Meter, Drum-type (ACCU-CHEK COMPACT PLUS CARE) kit Accu-Check Compact Plus Meter Diagnosis: Type 2 DM - Controlled E11.9 pregabalin (LYRICA) 150 mg capsule Take 1 capsule by mouth three times daily for 90 days. metFORMIN (GLUCOPHAGE) 1,000 mg tablet Take 1 tablet by mouth twice daily. ranitidine (ZANTAC) 150 mg tablet Take 1 tablet by mouth twice daily as needed. cetirizine (ZYRTEC) 10 mg tablet Take 1 tablet by mouth once daily. SUMAtriptan (IMITREX) 50 mg tablet Take one(1) tablet daily as needed, at headache onset. Repeat in two(2) hours if needed. sitaGLIPtin (JANUVIA) 50 mg tablet Take 1 tablet by mouth once daily. Insulin [place], Disposable, (BD ULTRA-FINE DIANNE PEN NEEDLE) 32 gauge x 32 ndle Use once a day ammonium lactate (LAC-HYDRIN) 12 % cream Apply 1-2x a day for dry areas acidophilus-pectin, citrus (ACIDOPHILUS PROBIOTIC) 100 million cell-10 mg cap Take 1 cap daily Blood-Glucose Meter (ONETOUCH VERIO IQ METER) monitoring kit 1 Each as needed. to check blood sugars. COMPOUNDED PRESCRIPTION 1. V44.2 Ileostomy status (HCC) (primary diagnosis)2. 555.1 Regional enteritis of large intestine (HCC)Ileostomy Supplies. 1. Pouches, 2. Planges, 3. Felipe seals, 4. Stoma adhesive, 5. Stoma powder, 6. Skin preps, 7. Adhesive remover wipes. Dispense 1 year supplies. oxyCODONE-acetaminophen (PERCOCET) 5-325 mg tablet Take 1 tablet by mouth every 8 hours as needed. tizanidine (ZANAFLEX) 4 mg ORAL tablet Take by mouth. . Takes 1 tablet at bedtime. COMPOUNDED PRESCRIPTION CAVILON no-sting barrier film. Prod# [id number] made by [employer] No current facility-administered medications for this visit. ALLERGIES Allergen Reactions - Dilaudid [Hydromorp* Swelling migraines - Levemir [Insulin De* Other: See Comments Urine turned dark and smelly - Methadone Swelling migraine - Morphine Swelling migraines - Remicade [Inflixima* Intolerance broke out in blisters with the 6th dose. - Ultram [Tramadol Hc* Swelling migraines PHYSICAL EXAMINATION BP 130/71 Pulse 85 Wt 79.4 kg (175 lb) BMI 35.35 kg/m? Body mass index is 35.35 kg/m?. GENERAL: not in distress, well-appearing HEENT: anicteric sclerae, non-injected conjunctivae NECK: supple, thyroid normal, no lymphadenopathy HEART: regular rate and rhythm, no murmur CHEST: no lesions, clear to auscultation GASTROINTESTINAL: abdomen soft, RLQ ileostomy intact, mild tenderness in RLQ and LLQ, BS+ GENITOURINARY: not examined EXTREMITIES: no edema, no tremors, Feet: Shoes and socks removed, normal distal pulses, sensitive to 10 gm monofilament and +calluses MUSCULOSKELETAL: no deformities, no fasciculations SKIN: dry, no cyanosis NEUROLOGIC: alert, oriented Assessment and Plan Mrs Vandana Lezama is a pleasant 42 yo female with a PMHx of type 2 DM, Crohn's disease, RA who presents to the diabetes center for routine follow up. #Type 2 DM Most recent HbA1c is 8.1, worse from before Takes Steroids for Crohns disease but no recent doses, last dose in July Home fasting BG 120-200 No hypoglycemic events In records has gained about 6-7 pounds but patient endorses her weight fluctuates Denies any change in diet. Regular aerobic exercise when she goes out in the [facility] Recent cyst in the left ovary but consistent with a hemorrhagic cyst Recent eye exam in 06/26/18. Foot check: few calluses, intact sensation, no ulcers/wounds -Continue lantus 60 units at bedtime. Take regularly. Contact us if BG low -Continue metformin, Januvia -Continue aerobic exercise, diet control #HLD Last LDL cholesterol checked in January. Elevated. Does not want statins. Uses alternative medicine concoction. -Monitor #Ovarian cyst Notes pain has worsened recently Wants referral to gynecology at [facility] main -Referral placed Juan Manuel Davalos MD Internal Medicine PGY-3 STAFF TEACHING ADDENDUM I have reviewed the progress note obtained and documented by Dr. Davalos and I personally participated in the rodriguez components. I have discussed the case and management of the patient's care with Dr. Davalos. I have edited the note as needed. In addition: Based on the history I obtained, says she was taking Lantus only after steroid injections, and then again the past 10 days L lower abd pain near inguinal area On my exam, sl tenderness LLQ Assessment and Plan: as noted above post discussion with the resident/fellow. ASSESSMENT/PLAN Type 2 diabetes, uncontrolled Dyslipidemia Fatty liver - since 17 y/o Chronic intermittent steroid use Bone loss B12 deficiency, may be related to metformin Check BGs twice a day, different times of day Lantus -discussed taking every night; contact me for dose adjustment Discussed GLP-1 agonist again as option if not being controlled. Continue metformin Continue [facility] Diabetes health maintenance record reviewed. Hypoglycemia prevention, recognition and treatment reviewed Not wanting to take statin, wants to go holistic Re-evaluated BMD done 2017 Z score low Will discuss further subsequent visit. For now is concerned with LLQ pain Continue vitamin D 2000 units daily OVEN TENDER consult Go to ED if worsening pain Labs Annual DM -done 08/2018 except for lipids, which were done 01/2018 BMD BONE DENSITY - 2019 Follow-up 6 months Contact us sooner if with concerns Follow-up with primary care physician for other medical issues. Temi Harrison M.D., M.P.H. September 06, 2018 1:30 PM Referring Provider: SOPHY HARRISON [[id number]] Allergies As of Date: 09/06/2018 Noted Allergy Reaction DILAUDID (HYDROMORPHONE (BULK)) 08/07/2006 7 - Swelling Comments: migraines LEVEMIR (INSULIN DETEMIR) 02/17/2014 14 - Other: See Comments Comments: Urine turned dark and smelly METHADONE 11/04/2013 7 - Swelling Comments: migraine MORPHINE 08/07/2006 7 - Swelling Comments: migraines REMICADE (INFLIXIMAB) 08/08/2006 5 - Intolerance Comments: broke out in blisters with the 6th dose. ULTRAM (TRAMADOL HCL) 04/07/2009 7 - Swelling Comments: migraines Date Reviewed: 09/06/2018 Reviewed by: Leela Gottlieb - Fully Assessed Reason for Visit: Diabetes [34] Primary Visit Diagnosis: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, with long-term current use of insulin ([facility]) [E11.3293, Z79.4] Other Visit Diagnosis:Cyst of left ovary [N83.202] Order(s):HEMOGLOBIN A1C (POC) [1442389] Order #: [id number]. #:[id number] CONSULT TO GYNECOLOGY [4088] Order #: [id number]: 1 insulin glargine (LANTUS SOLOSTAR U-100 INSULIN) 100 unit/mL (3 mL) inpnInject 60 Units subcutaneously daily at bedtime.Disp: 60 mLRfl: 2 Prescriptions as of 09/06/2018 Sig: INSULIN GLARGINE (U-100) 100 * Inject 60 Units subcutaneousl* DICYCLOMINE 10 MG CAPSULE Take 1 capsule by mouth three* BLOOD SUGAR DIAGNOSTIC STRIPS Test blood sugar(s) 2 times d* LANCETS Test blood sugar(s) 2 times d* BLOOD-GLUCOSE METER, DRUM-TYP* Accu-Check Compact Plus Meter* PREGABALIN 150 MG CAPSULE Take 1 capsule by mouth three* METFORMIN 1,000 MG TABLET Take 1 tablet by mouth twice * RANITIDINE 150 MG TABLET Take 1 tablet by mouth twice * CETIRIZINE 10 MG TABLET Take 1 tablet by mouth once d* SUMATRIPTAN 50 MG TABLET Take one(1) tablet daily as n* SITAGLIPTIN 50 MG TABLET Take 1 tablet by mouth once d* PEN NEEDLE, DIABETIC 32 GAUGE* Use once a day AMMONIUM LACTATE 12 % TOPICAL* Apply 1-2x a day for dry areas ACIDOPHILUS 100 MILLION CELL-* Take 1 cap daily BLOOD-GLUCOSE METER KIT 1 Each as needed. to check bl* COMPOUNDED PRESCRIPTION 1. V44.2 Ileostomy status (HC* OXYCODONE-ACETAMINOPHEN 5 MG-* Take 1 tablet by mouth every * TIZANIDINE 4 MG TABLET Take by mouth. . Takes 1 ta* COMPOUNDED PRESCRIPTION CAVILON no-sting barrier film* Medication notes this encounter DICYCLOMINE 10 MG CAPSULE >> Tana Lopez LPN 09/06/2018 8:44 AM >> TANA LOPEZ LPN [facility] Sep 06, 2018 8:44 AM not taking BLOOD-GLUCOSE METER KIT >> Tana Lopez LPN 09/06/2018 8:44 AM >> TANA LOPEZ LPN [facility] Sep 06, 2018 8:44 AM not using Problem List As Of Date 09/06/2018 Noted Resolved REG ENTERITIS, LG INTEST [K50.10] INVALID FOR* RETENTION OF URINE UNSPEC [R33.9] INVALID FOR* Mixed hyperlipidemia [E78.2] INVALID FOR* Anemia, unspecified [D64.9] INVALID FOR*03/08/2012 LUMBAGO [M54.5] INVALID FOR* Nonspecific abnormal results of liver function *INVALID FOR*04/19/2011 More... Onychia and paronychia of toe [L03.039] INVALID FOR*02/18/2013 ILEOSTOMY STATUS [Z93.2] INVALID FOR* IMPAIRED GLUCOSE JUNE TEST [R73.02] INVALID FOR*04/16/2008 Insulin-requiring or dependent type II diabetes*INVALID FOR* Fibromyalgia [M79.7] INVALID FOR* More... Non-alcoholic fatty liver disease [K76.0] INVALID FOR* Mild dysplasia of cervix [N87.0] INVALID FOR*03/08/2012 Fibromyalgia [M79.7] 04/19/2011 Depression [F32.9] INVALID FOR* Eczematous dermatitis: hands [L30.9] INVALID FOR*02/18/2013 Xerosis cutis [L85.3] INVALID FOR*02/18/2013 Atopic eczema [L20.9] INVALID FOR* Other psoriasis [L40.8] INVALID FOR* Contact dermatitis and other eczema, due to uns*INVALID FOR*01/03/2017 Hypoglycemia [E16.2] INVALID FOR*03/08/2012 Migraine headache without aura [G43.009] INVALID FOR* Recurrent cold sores [B00.1] INVALID FOR* Sprain of wrist, left [S63.502A] INVALID FOR*05/24/2018 Vitamin B12 deficiency [E53.8] INVALID FOR* Chronic rhinitis [J31.0] INVALID FOR* 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*INVALID FOR* 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] INVALID FOR* Vitreous floaters of both eyes [H43.393] INVALID FOR* Other instructions from your clinician: Check blood sugars 2x a day, different times of the day Report if low blood sugar Thank you for choosing the [facility] Department of Endocrinology, Diabetes and Metabolism. Being able to provide excellent health care has allowed us to be # 3 in the country according to [employer]. Did you know that you need to call 48 hours in advance of your scheduled visit, if you are unable to make your appointment? The Endocrinology and Metabolism [facility] thanks you for your commitment, because patients not showing to their appointment results in a lost opportunity for patients to receive world class health care at the [facility]. To Cancel an appointment, please choose one of the following: - Call the Appointment Call Center at [phone] - From [employer], Go to Appointments ? Cancel Appts If cancelling, consider your need to reschedule to prevent further delays in your care. To Schedule an appointment, please choose one of the following: - Call the Appointment Call Center at [phone] - From [employer], Go to Appointments ? Request an Appt + Prescriptions ordered this encounter Disp Refills Start End INSULIN GLARGINE (U-100) 100 UNIT/ML* 60 mL 2 09/06/2018 Route: SUBCUTANEOUS Sig: Inject 60 Units subcutaneously daily at bedtime. Medications Discontinued During This Encounter LANTUS SOLOSTAR U-100 INSULIN 100 un* 60 mL 2 08/28/2018 09/06/2018 Sig: INJECT 45 UNITS SUBCUTANEOUSLY AT BEDTIME. INCREASE TO 60 UNITS AT BEDTIME DIRECTED FOR HIGH SUGARS. Disc: Reason for discontinue is not on file. Encounter Status:Closed by MONY HARRISON MD on 09/06/18 PROGRESS Observed: 09/06/2018 Status: COMPLETED Source: [place] 8:43 AM [facility] REPOSITORY O ID: [id number] Author: Sophy Harrison Service: (none) Author Type: Physician Type: Progress Notes Filed: 09/06/2018 1:30 PM Note Text: HISTORY Ms Vandana Lezama is a 42 year old female who comes in here for follow-up of Type 2 DM - retinal hole, +neuropathy from cervical problems Dyslipidemia and fatty liver- elevated liver enzymes Steroid injections Low bone mass DIABETES Diagnosed DM in 2006, was having reactive hypoglycemia History of diabetes medications: Metformin started first Januvia started 2011 Glyburide caused lows 50s Lantus Current diabetes medications: Lantus - 60 units at bedtime, skips if fasting BG <110. Has needed to take regularly as her BG have been running high Metformin 1000 mg BID Januvia 50 mg daily Brought meter Am 120-200 Hypoglycemias: none Was on atorvastatin, stopped, wanting to go holistic, Using essic and dandelion root STEROIDS/BONE Has ileostomy bag Has Crohn's - no steroids for this, has ileostomy No steroid injections in the last 2 months Last steroid injection on Jul 17 Diet Breakfast Lunch Dinner Snacks Exercise: Type- Aerobic activity, goes out to the wood, sometimes hunts Frequency- 7 times/week Duration- 2 hours PMHx: Ovarian cyst BARNES RA LDL chol high, does not like statin SocHx: Denies smoking. Occasional alcohol. 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 +frequency OVEN TENDER: regular menses MUSCULOSKELETAL: no joint pain, no muscle ache SKIN: +eczema across chest, psoriasis flaring up again, no ulcers PSYCH: good mood, no anxiety HEMATOLOGY/LYMPHOLOGY: Negative for prolonged bleeding, bruising easily or swollen nodes ENDOCRINE: See HPI NEURO: No headaches, no focal weakness/numbness Component Latest Ref Rng AND Units 01/23/2018 05/24/2018 08/30/2018 09/06/2018 WBC 3.70 - 11.00 k/uL 8.16 RBC 3.90 - 5.20 m/uL 5.20 Hemoglobin 11.5 - 15.5 g/dL 14.6 Hematocrit 36.0 - 46.0 % 45.7 MCV 80.0 - 100.0 fL 87.9 MCH 26.0 - 34.0 pG 28.1 MCHC 30.5 - 36.0 g/dL 31.9 RDW-CV 11.5 - 15.0 % 13.0 Platelet Count 150 - 400 k/uL 234 MPV 9.0 - 12.7 fL 11.9 Neut% % 50.6 Abs Neut (ANC) 1.45 - 7.50 k/uL 4.13 Lymph% % 40.3 Abs Lymph 1.00 - 4.00 k/uL 3.29 [place]% % 6.6 Abs [place] <0.87 k/uL 0.54 Eosin% % 1.5 Abs Eosin <0.46 k/uL 0.12 Baso% % 1.0 Abs Baso <0.11 k/uL 0.08 Nucleated Reds 0 /100 WBC 0.0 Absolute nRBC <0.01 k/uL <0.01 Diff Type Auto Diff Protein, Total 6.3 - 8.0 g/dL 7.5 Albumin 3.9 - 4.9 g/dL 4.4 Calcium 8.5 - 10.2 mg/dL 9.8 10.2 Bilirubin, Total 0.2 - 1.3 mg/dL 0.3 Alkaline Phosphatase 34 - 123 U/L 136 (H) AST 13 - 35 U/L 70 (H) 69 (H) Glucose 74 - 99 mg/dL 161 (H) 309 (H) BUN 7 - 21 mg/dL 10 6 (L) Creatinine 0.58 - 0.96 mg/dL 0.54 (L) 0.61 Sodium 136 - 144 mmol/L 137 138 Potassium 3.7 - 5.1 mmol/L 3.9 4.1 Chloride 97 - 105 mmol/L 100 99 CO2 22 - 30 mmol/L 21 (L) 24 Anion Gap 9 - 18 mmol/L 16 15 ALT 7 - 38 U/L 86 (H) 93 (H) eGFR- >60 >60 eGFR-All Other Races . >60 >60 Cholesterol, Total <200 mg/dL 235 (H) Triglyceride <150 mg/dL 148 HDL Cholesterol >39 mg/dL 52 LDL Cholesterol <100 mg/dL 153 (H) Non HDL Cholesterol <130 mg/dL 183 (H) Fasting Time hrs 10 VLDL Cholesterol <30 mg/dL 30 (H) TC:HDL Ratio <5.10 4.52 LDL:HDL Ratio <2.54 2.94 (H) Creatinine, Ur Random (UCRR) 20 - 300 mg/dL 81.5 Albumin, Urine Random 0.0 - 23.0 mg/L <12.0 Albumin/Creat Ratio 0 - 30 mg/g Not calculated Hemoglobin A1C 4.3 - 5.6 % 7.1 (H) Estimated Average Glucose mg/dL 157 Vitamin B12 232 - 1,245 pg/mL 932 Vitamin D 25 Hydroxy 31.0 - 80.0 ng/mL 32.3 Hemoglobin A1C (POCT) 4.2 - 5.6 % 7.5 (A) 8.1 (A) 04/21/2017 ?8:00 AM - Interface, Results In Impression IMPRESSION: THE LOWEST Z-SCORE IS: -2.3 DIAGNOSIS (based on BMD alone): ?Below that expected for age Caution: Medical conditions other than osteoporosis may cause low bone density, such as osteomalacia or renal osteodystrophy. ?Clinical correlation is necessary. FRACTURE RISK (based on BMD alone): ?May be increased Caution: Fracture risk may be increased independent of BMD in patients with corticosteroid use, age greater than 65 years, or a history of prior fragility fracture. FRACTURE RISK - FRAX 10-Year Probability of Fracture ?Hip Fracture: ?0.4 % ?Major Osteoporotic Fracture: ?4.0 % According to the National Osteoporosis Foundation (NOF), healthcare providers should consider FDA-approved medical therapies in postmenopausal women and men aged 50 years and older, based on the following: * ?A hip or vertebral (clinical or morphometric) fracture * ?T-score less than or equal to -2.5 at the femoral neck or spine after appropriate evaluation to exclude secondary causes * ?Low bone mass (T-score between -1.0 and -2.5 at the femoral neck or spine) AND a 10-year probability of a hip fracture greater than or equal to 3% OR a 10-year probability of a major osteoporosis-related fracture greater than or equal to 20% based on the US-adapted WHO FRAX algorithm in a previously untreated patient * ?Clinician's judgment and/or patient preferences may indicate treatment for people with 10-year fracture probabilities above or below these levels RECOMMENDATIONS All patients should consume adequate sources of calcium and vitamin D, as clinically indicated. ?The NOF supports the National Academy of Sciences recommendation that women older than age 50 consume at least 1,200 mg per day of calcium. ? Adults aged 19 to 70 years require at least 600 IU/day of vitamin D to maximize bone health. ?However, serum 25(OH)D should be maintained above 30 ng/mL, and 1500 to 2000 IU/day of vitamin D may be required. Weight bearing exercises and strength training should be considered. Smoking cessation, and moderation of intake of alcohol, caffeine and carbonated beverages are recommended. Follow-up in 2 years or as clinically indicated. ?Patients that are taking corticosteroids, are transplant recipients, or have hyperparathyroidism should have annual follow-up. ?Follow- up scans should always be done on the same machine for accurate comparison. Interpreted by: Pema Wright MS, , CCD, FACE FOR MORE INFORMATION: National Osteoporosis Foundation: ?www.nof.org International Society of Clinical Densitometry: ?www.iscd.org Senior Project Manager Engineering: [employer] ? Transcribe Date/Time: Apr ?7:43A Dictated by : PEMA WRIGHT MD This examination was interpreted and the report reviewed and electronically signed by: PEMA WRIGHT MD on Apr ?7:54AM ?EST Results-Findings * * *Final Report* * * DATE OF EXAM: Apr ?8:56AM ? M6B ? 5714 ?- ?BD AP SPINE/HIP -NB ?/ PROCEDURE REASON: calcium clinic - bone density ?? ? * * * * Physician Interpretation * * * * ?EXAM: DXA - ?BONE DENSITOMETRY ENDOCRINE CALCIUM CLINIC PATIENT DEMOGRAPHICS ?Age: 41, ?Race: C Gender: F ?Height: 152.4 cm, ? Weight: 76.7 Kg, BMI: 33.01 Kg/m2 SCANNER INFORMATION Model of DXA scanner: Human Demand Site of DXA scanner: [facility] Sites scanned: Lumbar spine, ?left hip Date of scan: 04-20-2017 Previous scan(s): 09-22-2014 RISK FACTORS FOR OSTEOPOROSIS AND ASSOCIATED FRACTURES REPORTED BY THE PATIENT Family history of osteoporosis in a first degree relative, ?Family history of a fragility fracture in a first degree relative, Current corticosteroid therapy, Type 2 Diabetes, ?Crohn's disease with ileostomy., ?Lactose intolerance. CURRENT THERAPY Calcium supplements TECHNICAL LIMITATIONS OF THIS DXA The greater trochanter may not have been positioned fully against the DXA table therefore the total hip BMD may be artificially low. 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 Mc, [facility] - Type II or unspecified type diabetes mellitus without mention of complication, not stated as uncontrolled PAST SURGICAL HISTORY Procedure Laterality Date - EPIDURAL multiple ones done by Dr. Beckett, last one in 04/2011 - KNEE SCOPE,DIAGNOSTIC 1989 Arthroscopy, knee, left - OP BRONCHOS DIAG, W/WO WASHING January 2007 Bronchoscopy - PAST SURGICAL HISTORY OF 06/2000 ILEOSTOMY/COLECTOMY - PAST SURGICAL HISTORY OF 1993 CRYOCAUTERY/ MILD DYSPLASIA - PAST SURGICAL HISTORY OF March 2006 Abdominal abscess with anal fistula - PROCTECTOMY,COMPL,COLECTOMY,BX'S 2006 AP endoanal proctectomy - REMOVAL ADENOIDS,PRIMARY,<12 Y/O as child Adenoidectomy - REMOVAL OF TONSILS,<12 Y/O AGE 11 Tonsillectomy Social History Substance Use Topics - Smoking status: Former Smoker Packs/day: 1.00 Years: 16.00 Types: Cigarettes Quit date: 12/04/2006 - Smokeless tobacco: Never Used - Alcohol use No FAMILY HISTORY Problem Relation Age of Onset - Alcohol/Drug Mother - Hypertension Mother COPD - other (vascular disease) Mother - Alcohol/Drug Father - Cancer Father liver - Diabetes Maternal Grandmother - Stroke Maternal Grandmother - Heart Maternal Grandmother - Diabetes Paternal Grandfather - Emphysema Paternal Grandmother Current Outpatient Prescriptions: dicyclomine (BENTYL) 10 mg capsule Take 1 capsule by mouth three times daily as needed (pelvic pain). LANTUS SOLOSTAR U-100 INSULIN 100 unit/mL (3 mL) inpn INJECT 45 UNITS SUBCUTANEOUSLY AT BEDTIME. INCREASE TO 60 UNITS AT BEDTIME DIRECTED FOR HIGH SUGARS. blood sugar diagnostic (BLOOD GLUCOSE TEST) test strip Test blood sugar(s) 2 times daily. Dx: Type 2 DM - Controlled E11.9 Insulin: No, Accu-check brand covered by insurance Lancets (ACCU-CHEK MULTICLIX LANCET) lancets Test blood sugar(s) 2 times daily. Dx: Type 2 DM - Controlled E11.9 Insulin: No Blood-Glucose Meter, Drum-type (ACCU-CHEK COMPACT PLUS CARE) kit Accu-Check Compact Plus Meter Diagnosis: Type 2 DM - Controlled E11.9 pregabalin (LYRICA) 150 mg capsule Take 1 capsule by mouth three times daily for 90 days. metFORMIN (GLUCOPHAGE) 1,000 mg tablet Take 1 tablet by mouth twice daily. ranitidine (ZANTAC) 150 mg tablet Take 1 tablet by mouth twice daily as needed. cetirizine (ZYRTEC) 10 mg tablet Take 1 tablet by mouth once daily. SUMAtriptan (IMITREX) 50 mg tablet Take one(1) tablet daily as needed, at headache onset. Repeat in two(2) hours if needed. sitaGLIPtin (JANUVIA) 50 mg tablet Take 1 tablet by mouth once daily. Insulin [place], Disposable, (BD ULTRA-FINE DIANNE PEN NEEDLE) 32 gauge x 5/32 ndle Use once a day ammonium lactate (LAC-HYDRIN) 12 % cream Apply 1-2x a day for dry areas acidophilus-pectin, citrus (ACIDOPHILUS PROBIOTIC) 100 million cell-10 mg cap Take 1 cap daily Blood-Glucose Meter (ONETOUCH VERIO IQ METER) monitoring kit 1 Each as needed. to check blood sugars. COMPOUNDED PRESCRIPTION 1. V44.2 Ileostomy status (HCC) (primary diagnosis)2. 555.1 Regional enteritis of large intestine (HCC)Ileostomy Supplies. 1. Pouches, 2. Planges, 3. Felipe seals, 4. Stoma adhesive, 5. Stoma powder, 6. Skin preps, 7. Adhesive remover wipes. Dispense 1 year supplies. oxyCODONE-acetaminophen (PERCOCET) 5-325 mg tablet Take 1 tablet by mouth every 8 hours as needed. tizanidine (ZANAFLEX) 4 mg ORAL tablet Take by mouth. . Takes 1 tablet at bedtime. COMPOUNDED PRESCRIPTION CAVILON no-sting barrier film. Prod# 8664 made by [employer] No current facility-administered medications for this visit. ALLERGIES Allergen Reactions - Dilaudid [Hydromorp* Swelling migraines - Levemir [Insulin De* Other: See Comments Urine turned dark and smelly - Methadone Swelling migraine - Morphine Swelling migraines - Remicade [Inflixima* Intolerance broke out in blisters with the 6th dose. - Ultram [Tramadol Hc* Swelling migraines PHYSICAL EXAMINATION BP 130/71 Pulse 85 Wt 79.4 kg (175 lb) BMI 35.35 kg/m? Body mass index is 35.35 kg/m?. GENERAL: not in distress, well-appearing HEENT: anicteric sclerae, non-injected conjunctivae NECK: supple, thyroid normal, no lymphadenopathy HEART: regular rate and rhythm, no murmur CHEST: no lesions, clear to auscultation GASTROINTESTINAL: abdomen soft, RLQ ileostomy intact, mild tenderness in RLQ and LLQ, BS+ GENITOURINARY: not examined EXTREMITIES: no edema, no tremors, Feet: Shoes and socks removed, normal distal pulses, sensitive to 10 gm monofilament and +calluses MUSCULOSKELETAL: no deformities, no fasciculations SKIN: dry, no cyanosis NEUROLOGIC: alert, oriented Assessment and Plan Mrs Vandana Lezama is a pleasant 42 yo female with a PMHx of type 2 DM, Crohn's disease, RA who presents to the diabetes center for routine follow up. #Type 2 DM Most recent HbA1c is 8.1, worse from before Takes Steroids for Crohns disease but no recent doses, last dose in July Home fasting BG 120-200 No hypoglycemic events In records has gained about 6-7 pounds but patient endorses her weight fluctuates Denies any change in diet. Regular aerobic exercise when she goes out in the [facility] Recent cyst in the left ovary but consistent with a hemorrhagic cyst Recent eye exam in 08/14/18. Foot check: few calluses, intact sensation, no ulcers/wounds -Continue lantus 60 units at bedtime. Take regularly. Contact us if BG low -Continue metformin, Januvia -Continue aerobic exercise, diet control #HLD Last LDL cholesterol checked in January. Elevated. Does not want statins. Uses alternative medicine concoction. -Monitor #Ovarian cyst Notes pain has worsened recently Wants referral to gynecology at [facility] main -Referral placed Juan Manuel Davalos MD Internal Medicine PGY-3 STAFF TEACHING ADDENDUM I have reviewed the progress note obtained and documented by Dr. Davalos and I personally participated in the rodriguez components. I have discussed the case and management of the patient's care with Dr. Davalos. I have edited the note as needed. In addition: Based on the history I obtained, says she was taking Lantus only after steroid injections, and then again the past 10 days L lower abd pain near inguinal area On my exam, sl tenderness LLQ Assessment and Plan: as noted above post discussion with the resident/fellow. ASSESSMENT/PLAN Type 2 diabetes, uncontrolled Dyslipidemia Fatty liver - since 17 y/o Chronic intermittent steroid use Bone loss B12 deficiency, may be related to metformin Check BGs twice a day, different times of day Lantus -discussed taking every night; contact me for dose adjustment Discussed GLP-1 agonist again as option if not being controlled. Continue metformin Continue Januvia Diabetes health maintenance record reviewed. Hypoglycemia prevention, recognition and treatment reviewed Not wanting to take statin, wants to go holistic Re-evaluated BMD done 2017 Z score low Will discuss further subsequent visit. For now is concerned with LLQ pain Continue vitamin D 2000 units daily OVEN TENDER consult Go to ED if worsening pain Labs Annual DM -done 08/2018 except for lipids, which were done 01/2018 BMD BONE DENSITY - 2019 Follow-up 6 months Contact us sooner if with concerns Follow-up with primary care physician for other medical issues. Temi Harrison M.D., M.P.H. September 06, 2018 1:30 PM CBC AND DIFFERENTIAL Collected: 08/30/2018 Status: F Source: [place] 4:11 PM [facility] REPOSITORY TYPE CODE TESTS RESULT OUT OF REFERENCE UNITS RANGE LAB WBC 3.70-11.00 k/uL WBC 8.16 LAB RBC 3.90-5.20 m/uL RBC 5.20 LAB HGB 11.5-15.5 g/dL Hemoglobin 14.6 LAB HCT 36.0-46.0 % Hematocrit 45.7 LAB MCV 80.0-100.0 fL MCV 87.9 LAB MCH 26.0-34.0 pG MCH 28.1 LAB MCHC 30.5-36.0 g/dL MCHC 31.9 LAB RDWCV 11.5-15.0 % RDW-CV 13.0 LAB PLTCT 150-400 k/uL Platelet Count 234 LAB MPV 9.0-12.7 fL MPV 11.9 LAB ANEUT % Neut% 50.6 LAB AANEUT 1.45-7.50 k/uL Abs Neut 4.13 LAB ALYMP % Lymph% 40.3 LAB AALYMP 1.00-4.00 k/uL Abs Lymph 3.29 LAB AMONO % [place]% 6.6 LAB AAMONO <0.87 k/uL Abs [place] 0.54 LAB AEOS % Eosin% 1.5 LAB AAEOS <0.46 k/uL Abs Eosin 0.12 LAB ABASO % Baso% 1.0 LAB AABASO <0.11 k/uL Abs Baso 0.08 LAB AUNRBC 0 /100 WBC NRBCs 0.0 LAB ABNRBC <0.01 k/uL Absolute nRBC <0.01 LAB DTYP DTYPE Auto Diff Performed By: #### CBCDIF, CMP #### [facility] [address] [place] [id number] COMP METABOLIC PANEL Collected: 08/30/2018 Status: F Source: [place] 4:11 PM [facility] REPOSITORY TYPE CODE TESTS RESULT OUT OF REFERENCE UNITS RANGE LAB TP 6.3-8.0 g/dL Protein, Total 7.5 LAB ALB 3.9-4.9 g/dL Albumin 4.4 LAB CA 8.5-10.2 mg/dL Calcium, Total 10.2 LAB TBIL 0.2-1.3 mg/dL Bilirubin, Total 0.3 LAB ALKP 34-123 U/L Alkaline High Phosphatase 136 LAB AST 13-35 U/L AST High 69 LAB GLU 74-99 mg/dL Glucose High 309 Result Comment: The [place] Diabetes Association (ADA) provides guidance for cutoff values for fasting glucose and random glucose. The ADA defines fasting as no caloric intake for at least 8 hours. Fas ting plasma glucose results between 100 to 125 mg/dL indicate increased risk for diabetes (prediabetes). Fasting plasma glucose results greater than or equal to 126 mg/dL meet the criteria for diagnosis of diabetes. In the absence of unequivocal hyperglycemia, results should be confirmed by repeat testing. In a patient with classic symptoms of hyperglycemia or hyperglycemic crisis, random plasma glucose results greater than or equal to 200 mg/dL meet the criteria for diagnosis of diabetes. Reference: Standards of Medical Care in Diabetes 2016, [place] [employer] Association. Diabetes Care. 2016.39(Suppl 1). LAB BUN 7-21 mg/dL Low BUN 6 LAB CRET 0.58-0.96 mg/dL Creatinine 0.61 LAB NA 136-144 mmol/L Sodium 138 LAB K 3.7-5.1 mmol/L Potassium 4.1 LAB CL 97-105 mmol/L Chloride 99 LAB CO2 22-30 mmol/L CO2 24 LAB AGAP 9-18 mmol/L Anion Gap 15 LAB ALT 7-38 U/L ALT High 93 LAB GFRAA eGFR- Amer. >60 LAB GFRNAA . eGFR-All Other Races >60 Result Comment: eGFR (Estimated GFR) Units of measure: mL/min/1.73 meters squared eGFR is derived from the reexpressed MDRD Study equation using the following parameters: serum creatinine, age, gender and race. The creatinine assay has been calibrated to be traceable to IDMS. An eGFR <60 mL/min/1.73m2 for >3 months is consistent with chronic kidney disease. Refer to KDOQI guidelines for clinical interpretation. In patients with unstable renal function, e.g. those with acute kidney injury, the eGFR may not accurately reflect actual GFR. Performed By: #### CBCDIF, CMP #### [facility] [address] [place], [place] [address] URINALYSIS WITH Collected: 08/30/2018 Status: F Source: [facility] 4:08 PM [facility] REPOSITORY TYPE CODE TESTS RESULT OUT OF RANGE REFERENCE UNITS LAB UCOL Yellow Color Yellow LAB [facility] Clear Clarity Clear LAB UGLUC Negative mg/dL Glucose, Abnormal Urine >=500 Alert LAB UBIL Negative Bilirubin, Urine Negative LAB UKET Negative Ketones, Urine Negative LAB USPG 1.005-1.030 Specific [place], Ur 1.030 LAB UHGB Negative Hemoglobin/Blood, Negative Ur LAB UPH 4.5-8.0 pH 5.0 LAB UPROT Negative mg/dL Protein, Urine Negative LAB UUROB Normal Urobilinogen Normal LAB UNITR Negative Nitrites Negative LAB ULKEST Negative Leukest Negative LAB UCOM Comments SEE COMMENT Result Comment: N/A LAB UMCOM Urine SEE Ta Comment COMMENT Result Comment: Interpret results with caution. Urine preservative tube not filled to the required volume. The BD Vacutainer Urinalysis preservative Plus tube must be filled with at least 7 mL and not more than 9 mL of urine in order to maintain the proper additive to urine ratio. LAB UWBC 0-5 /HPF WBC 0-5 LAB URBC 0-3 /HPF RBC 0-3 LAB UEPI /HPF Epithelial SEE Cells COMMENT Result Comment: Few Squamous Epithelial Cells Performed By: #### UAWMIC #### [place] [id number] [place] [id number] Observed: 08/30/2018 Status: F Source: [place] URINE CULTURE 4:07 PM [facility] REPOSITORY Sp. Request/Comment: - Specimen received in preservative Culture Result - No growth (<1,000 CFU/ml) Performed By: #### URCUL #### [place] [id number] [place] [id number] PROGRESS Observed: 08/30/2018 Status: COMPLETED Source: [place] 3:41 PM [facility] REPOSITORY HNO ID: [id number] Author: Grayson Phan Service: (none) Author Type: Physician Type: Progress Notes Filed: 08/30/2018 4:15 PM Note Text: This note was created using [employer]. Subjective Abdominal pain is located Suprapubic with radiation to right lower abdomen on her stoma area present for 5 weeks and is waxing and waning, characterized as pressure. She had an episode of severe right lower abdominal pain in the area of her stoma, dull, that lasted for several days. No fevers, weight loss or black/bloody BM's. No constipation or diarrhea. No vomiting. Positive for nausea. Symptoms are aggravated by changing positions, starting urination, sitting down, lying down and improves once urine is streaming. She had been to gynecology and had CT scan and US done and left adnexal cyst was found. There was also concern about endometrial hyperplasia and sampling was planned. ACTIVE PROBLEM LIST Regional Enteritis of Large Intestine (Hcc) Retention of Urine, Unspecified Mixed Hyperlipidemia Lumbago Ileostomy Status (Hcc) Insulin-Requiring Or Dependent Type II Diabetes Mellitus (Hcc) Fibromyalgia Non-Alcoholic Fatty Liver Disease Depression Atopic Eczema Other Psoriasis Migraine Headache Without Aura Recurrent Cold Sores Vitamin B12 Deficiency Chronic Rhinitis Type 2 Diabetes Mellitus With Both Eyes Affected By Mild Nonproliferative Retinopathy Without Macular Edema, With Long-Term Current Use of Insulin (Hcc) Nuclear Sclerosis of Both Eyes Vitreous Floaters of Both Eyes Current Outpatient Prescriptions: LANTUS SOLOSTAR U-100 INSULIN 100 unit/mL (3 mL) inpn INJECT 45 UNITS SUBCUTANEOUSLY AT BEDTIME. INCREASE TO 60 UNITS AT BEDTIME DIRECTED FOR HIGH SUGARS. blood sugar diagnostic (BLOOD GLUCOSE TEST) test strip Test blood sugar(s) 2 times daily. Dx: Type 2 DM - Controlled E11.9 Insulin: No, Accu-check brand covered by insurance Lancets (ACCU-CHEK MULTICLIX LANCET) lancets Test blood sugar(s) 2 times daily. Dx: Type 2 DM - Controlled E11.9 Insulin: No Blood-Glucose Meter, Drum-type (ACCU-CHEK COMPACT PLUS CARE) kit Accu-Check Compact Plus Meter Diagnosis: Type 2 DM - Controlled E11.9 pregabalin (LYRICA) 150 mg capsule Take 1 capsule by mouth three times daily for 90 days. metFORMIN (GLUCOPHAGE) 1,000 mg tablet Take 1 tablet by mouth twice daily. ranitidine (ZANTAC) 150 mg tablet Take 1 tablet by mouth twice daily as needed. SUMAtriptan (IMITREX) 50 mg tablet Take one(1) tablet daily as needed, at headache onset. Repeat in two(2) hours if needed. sitaGLIPtin (JANUVIA) 50 mg tablet Take 1 tablet by mouth once daily. Insulin [place], Disposable, (BD ULTRA-FINE DIANNE PEN NEEDLE) 32 gauge x 5/32 ndle Use once a day ammonium lactate (LAC-HYDRIN) 12 % cream Apply 1-2x a day for dry areas acidophilus-pectin, citrus (ACIDOPHILUS PROBIOTIC) 100 million cell-10 mg cap Take 1 cap daily Blood-Glucose Meter ([employer] TVUCH VERIO IQ METER) monitoring kit 1 Each as needed. to check blood sugars. COMPOUNDED PRESCRIPTION 1. V44.2 Ileostomy status (HCC) (primary diagnosis)2. 555.1 Regional enteritis of large intestine (HCC)Ileostomy Supplies. 1. Pouches, 2. Planges, 3. Felipe seals, 4. Stoma adhesive, 5. Stoma powder, 6. Skin preps, 7. Adhesive remover wipes. Dispense 1 year supplies. oxyCODONE-acetaminophen (PERCOCET) 5-325 mg tablet Take 1 tablet by mouth every 8 hours as needed. tizanidine (ZANAFLEX) 4 mg ORAL tablet Take by mouth. . Takes 1 tablet at bedtime. COMPOUNDED PRESCRIPTION CAVILON no-sting barrier film. Prod# 3343 made by [employer] dicyclomine (BENTYL) 10 mg capsule Take 1 capsule by mouth three times daily as needed (pelvic pain). cetirizine (ZYRTEC) 10 mg tablet Take 1 tablet by mouth once daily. (Patient not taking: Reported on 08/30/2018 ) No current facility-administered medications for this visit. Review of Systems Constitutional: Negative for appetite change, chills, diaphoresis, fever and unexpected weight change. Gastrointestinal: Positive for abdominal pain and nausea. Negative for abdominal distention, blood in stool, constipation, diarrhea, rectal pain and vomiting. No change in stomal output. Genitourinary: Positive for difficulty urinating, dysuria, pelvic pain and vaginal discharge. Negative for vaginal bleeding and vaginal pain. Objective BP 100/60 (BP Site: Right Arm, BP Position: Sitting, BP Cuff Size: Regular Adult) Pulse 76 Temp 36.6 ?C (97.9 ?F) (Left Tympanic) Resp 20 Wt 76.7 kg (169 lb) BMI 34.13 kg/m? Physical Exam Constitutional: No distress. Eyes: Conjunctivae are normal. No scleral icterus. Abdominal: Soft. Bowel sounds are normal. She exhibits no distension. There is tenderness in the suprapubic area. There is no rigidity, no rebound and no guarding. Ileostomy RLQ. Component Latest Ref Rng AND Units 08/30/2018 GLUCOSE UA (POCT) Negative mg/dL 500 (A) BILIRUBIN UA (POCT) Negative Negative KETONE UA (POCT) Negative mg/dL Negative SPECIFIC GRAVITY UA (POCT) 1.005 - 1.030 1.015 HEMOGLOBIN/BLOOD UA (POCT) Negative Negative PH UA (POCT) 4.5 - 8.0 5.0 PROTEIN UA (POCT) Negative mg/dL Negative UROBILINOGEN UA (POCT) Normal E.U./dL 0.2 NITRITE UA (POCT) Negative Negative LEUKOCYTES UA (POCT) Negative Negative COLOR UA (POCT) Clementine CLARITY UA (POCT) Cloudy CT and pelvic US reviewed. Assessment and Plan 1. Abdominal pain, unspecified abdominal location - ICD9: 789.00, ICD10: R10.9 (primary diagnosis) Differential Diagnosis includes Bladder distention, Ovarian cyst and bladder spasm. This is likely pressure effect from ovarian cyst. - UA DIP, URINE (POC) - URINALYSIS WITH MICROSCOPIC - URINE CULTURE - CBC + DIFF - COMP METABOLIC PANEL - DICYCLOMINE 10 MG CAPSULE. Trial for symptom relief. 2. Dysuria - ICD9: 788.1, ICD10: R30.0 recurrent - UA DIP, URINE (POC) - URINALYSIS WITH MICROSCOPIC - URINE CULTURE - CBC + DIFF - COMP METABOLIC PANEL 3. Cyst of left ovary - ICD9: 620.2, ICD10: N83.202 Per gynecology. 4. 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, with long- term current use of insulin ([facility]) - ICD9: 250.50, 362.04, V58.67, ICD10: E11.3293, Z79.4 poorly controlled Discussed need for better glucose control. She was scheduled to see her child care group leader. Grayson Phan MD CNOV Observed: 08/30/2018 Status: COMPLETED Source: [place] 3:00 PM [facility] REPOSITORY Office Visit (INTMWS) VANDANA [id number]) 1975 F Date Time Provider Department 08/30/18 3:00 PM GRAYSON PHAN [facility] During your visit today, we recorded the following information about you: Temperature Pulse Respiration Blood pressure 97.9 degrees 76/minute 20/minute 100/60 Weight 76.7 kg Grayson Phan MD 08/30/2018 4:15 PM Signed This note was created using [employer]. Subjective Abdominal pain is located Suprapubic with radiation to right lower abdomen on her stoma area present for 5 weeks and is waxing and waning, characterized as pressure. She had an episode of severe right lower abdominal pain in the area of her stoma, dull, that lasted for several days. No fevers, weight loss or black/bloody BM's. No constipation or diarrhea. No vomiting. Positive for nausea. Symptoms are aggravated by changing positions, starting urination, sitting down, lying down and improves once urine is streaming. She had been to gynecology and had CT scan and US done and left adnexal cyst was found. There was also concern about endometrial hyperplasia and sampling was planned. ACTIVE PROBLEM LIST Regional Enteritis of Large Intestine (Hcc) Retention of Urine, Unspecified Mixed Hyperlipidemia Lumbago Ileostomy Status (Hcc) Insulin-Requiring Or Dependent Type II Diabetes Mellitus (Hcc) Fibromyalgia Non-Alcoholic Fatty Liver Disease Depression Atopic Eczema Other Psoriasis Migraine Headache Without Aura Recurrent Cold Sores Vitamin B12 Deficiency Chronic Rhinitis Type 2 Diabetes Mellitus With Both Eyes Affected By Mild Nonproliferative Retinopathy Without Macular Edema, With Long-Term Current Use of Insulin (Hcc) Nuclear Sclerosis of Both Eyes Vitreous Floaters of Both Eyes Current Outpatient Prescriptions: LANTUS SOLOSTAR U-100 INSULIN 100 unit/mL (3 mL) inpn INJECT 45 UNITS SUBCUTANEOUSLY AT BEDTIME. INCREASE TO 60 UNITS AT BEDTIME DIRECTED FOR HIGH SUGARS. blood sugar diagnostic (BLOOD GLUCOSE TEST) test strip Test blood sugar(s) 2 times daily. Dx: Type 2 DM - Controlled E11.9 Insulin: No, Accu-check brand covered by insurance Lancets (ACCU-CHEK MULTICLIX LANCET) lancets Test blood sugar(s) 2 times daily. Dx: Type 2 DM - Controlled E11.9 Insulin: No Blood-Glucose Meter, Drum-type (ACCU-CHEK COMPACT PLUS CARE) kit Accu-Check Compact Plus Meter Diagnosis: Type 2 DM - Controlled E11.9 pregabalin (LYRICA) 150 mg capsule Take 1 capsule by mouth three times daily for 90 days. metFORMIN (GLUCOPHAGE) 1,000 mg tablet Take 1 tablet by mouth twice daily. ranitidine (ZANTAC) 150 mg tablet Take 1 tablet by mouth twice daily as needed. SUMAtriptan (IMITREX) 50 mg tablet Take one(1) tablet daily as needed, at headache onset. Repeat in two(2) hours if needed. sitaGLIPtin (JANUVIA) 50 mg tablet Take 1 tablet by mouth once daily. Insulin [place], Disposable, (BD ULTRA-FINE DIANNE PEN NEEDLE) 32 gauge x 5/32 ndle Use once a day ammonium lactate (LAC-HYDRIN) 12 % cream Apply 1-2x a day for dry areas acidophilus-pectin, citrus (ACIDOPHILUS PROBIOTIC) 100 million cell-10 mg cap Take 1 cap daily Blood-Glucose Meter ([employer]lionUCH VERIO IQ METER) monitoring kit 1 Each as needed. to check blood sugars. COMPOUNDED PRESCRIPTION 1. V44.2 Ileostomy status (HCC) (primary diagnosis)2. 555.1 Regional enteritis of large intestine ([facility])Ileostomy Supplies. 1. Pouches, 2. Planges, 3. Felipe seals, 4. Stoma adhesive, 5. Stoma powder, 6. Skin preps, 7. Adhesive remover wipes. Dispense 1 year supplies. oxyCODONE-acetaminophen (PERCOCET) 5-325 mg tablet Take 1 tablet by mouth every 8 hours as needed. tizanidine (ZANAFLEX) 4 mg ORAL tablet Take by mouth. . Takes 1 tablet at bedtime. COMPOUNDED PRESCRIPTION CAVILON no-sting barrier film. Prod# 3343 made by [employer] dicyclomine (BENTYL) 10 mg capsule Take 1 capsule by mouth three times daily as needed (pelvic pain). cetirizine (ZYRTEC) 10 mg tablet Take 1 tablet by mouth once daily. (Patient not taking: Reported on 08/30/2018 ) No current facility-administered medications for this visit. Review of Systems Constitutional: Negative for appetite change, chills, diaphoresis, fever and unexpected weight change. Gastrointestinal: Positive for abdominal pain and nausea. Negative for abdominal distention, blood in stool, constipation, diarrhea, rectal pain and vomiting. No change in stomal output. Genitourinary: Positive for difficulty urinating, dysuria, pelvic pain and vaginal discharge. Negative for vaginal bleeding and vaginal pain. Objective BP 100/60 (BP Site: Right Arm, BP Position: Sitting, BP Cuff Size: Regular Adult) Pulse 76 Temp 36.6 ?C (97.9 ?F) (Left Tympanic) Resp 20 Wt 76.7 kg (169 lb) BMI 34.13 kg/m? Physical Exam Constitutional: No distress. Eyes: Conjunctivae are normal. No scleral icterus. Abdominal: Soft. Bowel sounds are normal. She exhibits no distension. There is tenderness in the suprapubic area. There is no rigidity, no rebound and no guarding. Ileostomy RLQ. Component Latest Ref Rng AND Units 08/30/2018 GLUCOSE UA (POCT) Negative mg/dL 500 (A) BILIRUBIN UA (POCT) Negative Negative KETONE UA (POCT) Negative mg/dL Negative SPECIFIC GRAVITY UA (POCT) 1.005 - 1.030 1.015 HEMOGLOBIN/BLOOD UA (POCT) Negative Negative PH UA (POCT) 4.5 - 8.0 5.0 PROTEIN UA (POCT) Negative mg/dL Negative UROBILINOGEN UA (POCT) Normal E.U./dL 0.2 NITRITE UA (POCT) Negative Negative LEUKOCYTES UA (POCT) Negative Negative COLOR UA (POCT) Clementine CLARITY UA (POCT) Cloudy CT and pelvic US reviewed. Assessment and Plan 1. Abdominal pain, unspecified abdominal location - ICD9: 789.00, ICD10: R10.9 (primary diagnosis) Differential Diagnosis includes Bladder distention, Ovarian cyst and bladder spasm. This is likely pressure effect from ovarian cyst. - UA DIP, URINE (POC) - URINALYSIS WITH MICROSCOPIC - URINE CULTURE - CBC + DIFF - COMP METABOLIC PANEL - DICYCLOMINE 10 MG CAPSULE. Trial for symptom relief. 2. Dysuria - ICD9: 788.1, ICD10: R30.0 recurrent - UA DIP, URINE (POC) - URINALYSIS WITH MICROSCOPIC - URINE CULTURE - CBC + DIFF - COMP METABOLIC PANEL 3. Cyst of left ovary - ICD9: 620.2, ICD10: N83.202 Per gynecology. 4. 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, with long-term current use of insulin ([facility]) - ICD9: 250.50, 362.04, V58.67, ICD10: E11.3293, Z79.4 poorly controlled Discussed need for better glucose control. She was scheduled to see her child care group leader. Grayson Phan MD Referring Provider: SELF [[id number]] Allergies As of Date: 08/30/2018 Noted Allergy Reaction DILAUDID (HYDROMORPHONE (BULK)) 08/07/2006 7 - Swelling Comments: migraines LEVEMIR (INSULIN DETEMIR) 02/17/2014 14 - Other: See Comments Comments: Urine turned dark and smelly METHADONE 11/04/2013 7 - Swelling Comments: migraine MORPHINE 08/07/2006 7 - Swelling Comments: migraines REMICADE (INFLIXIMAB) 08/08/2006 5 - Intolerance Comments: broke out in blisters with the 6th dose. ULTRAM (TRAMADOL HCL) 04/07/2009 7 - Swelling Comments: migraines Date Reviewed: 08/30/2018 Reviewed by: Laina Monroe LPN - Fully Assessed Reason for Visit: Abdominal Pain [1] Primary Visit Diagnosis:Abdominal pain, unspecified abdominal location [R10.9] Other Visit Diagnoses:Dysuria [R30.0] Cyst of left ovary [N83.202] 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, with long-term current use of insulin ([facility]) [E11.3293, Z79.4] Order(s):UA DIP, URINE (POC) [9856250] Order #: [id number]. #:[id number] URINALYSIS WITH MICROSCOPIC [SQUAWMIC] Order #: [id number] URINE CULTURE [SQURCUL] Order #: [id number] CBC + DIFF [SQCBCDIF] Order #: [id number] FUTURE COMP METABOLIC PANEL [SQCMP] Order #: [id number] FUTURE dicyclomine (BENTYL) 10 mg capsuleTake 1 capsule by mouth three times daily as needed (pelvic pain).Disp: 21 capsuleRfl: 0 Prescriptions as of 08/30/2018 Sig: LANTUS SOLOSTAR U-100 INSULIN* INJECT 45 UNITS SUBCUTANEOUSL* BLOOD SUGAR DIAGNOSTIC STRIPS Test blood sugar(s) 2 times d* LANCETS Test blood sugar(s) 2 times d* BLOOD-GLUCOSE METER, DRUM-TYP* Accu-Check Compact Plus Meter* PREGABALIN 150 MG CAPSULE Take 1 capsule by mouth three* METFORMIN 1,000 MG TABLET Take 1 tablet by mouth twice * RANITIDINE 150 MG TABLET Take 1 tablet by mouth twice * SUMATRIPTAN 50 MG TABLET Take one(1) tablet daily as n* SITAGLIPTIN 50 MG TABLET Take 1 tablet by mouth once d* PEN NEEDLE, DIABETIC 32 GAUGE* Use once a day AMMONIUM LACTATE 12 % TOPICAL* Apply 1-2x a day for dry areas ACIDOPHILUS 100 MILLION CELL-* Take 1 cap daily BLOOD-GLUCOSE METER KIT 1 Each as needed. to check bl* COMPOUNDED PRESCRIPTION 1. V44.2 Ileostomy status (HC* OXYCODONE-ACETAMINOPHEN 5 MG-* Take 1 tablet by mouth every * TIZANIDINE 4 MG TABLET Take by mouth. . Takes 1 ta* COMPOUNDED PRESCRIPTION CAVILON no-sting barrier film* DICYCLOMINE 10 MG CAPSULE Take 1 capsule by mouth three* CETIRIZINE 10 MG TABLET Take 1 tablet by mouth once d* Patient not taking: Reported on 08/30/2018 Problem List As Of Date 08/30/2018 Noted Resolved REG ENTERITIS, LG INTEST [K50.10] INVALID FOR* RETENTION OF URINE UNSPEC [R33.9] INVALID FOR* Mixed hyperlipidemia [E78.2] INVALID FOR* Anemia, unspecified [D64.9] INVALID FOR*03/08/2012 LUMBAGO [M54.5] INVALID FOR* Nonspecific abnormal results of liver function *INVALID FOR*04/19/2011 More... Onychia and paronychia of toe [L03.039] INVALID FOR*02/18/2013 ILEOSTOMY STATUS [Z93.2] INVALID FOR* IMPAIRED GLUCOSE JUNE TEST [R73.02] INVALID FOR*04/16/2008 Insulin-requiring or dependent type II diabetes*INVALID FOR* Fibromyalgia [M79.7] INVALID FOR* More... Non-alcoholic fatty liver disease [K76.0] INVALID FOR* Mild dysplasia of cervix [N87.0] INVALID FOR*03/08/2012 Fibromyalgia [M79.7] 04/19/2011 Depression [F32.9] INVALID FOR* Eczematous dermatitis: hands [L30.9] INVALID FOR*02/18/2013 Xerosis cutis [L85.3] INVALID FOR*02/18/2013 Atopic eczema [L20.9] INVALID FOR* Other psoriasis [L40.8] INVALID FOR* Contact dermatitis and other eczema, due to uns*INVALID FOR*01/03/2017 Hypoglycemia [E16.2] INVALID FOR*03/08/2012 Migraine headache without aura [G43.009] INVALID FOR* Recurrent cold sores [B00.1] INVALID FOR* Sprain of wrist, left [S63.502A] INVALID FOR*05/24/2018 Vitamin B12 deficiency [E53.8] INVALID FOR* Chronic rhinitis [J31.0] INVALID FOR* 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*INVALID FOR* 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] INVALID FOR* Vitreous floaters of both eyes [H43.393] INVALID FOR* Prescriptions ordered this encounter Disp Refills Start End DICYCLOMINE 10 MG CAPSULE 21 c* 0 08/30/2018 Route: ORAL Sig: Take 1 capsule by mouth three times daily as needed (pelvic pain). Medications Discontinued During This Encounter Cholecalciferol, Vitamin D3, 2,000 u* 90 c* 3 10/12/2017 08/30/2018 Route: ORAL Sig: Take 1 capsule by mouth once daily. Patient not taking: Reported on 08/30/2018 Disc: Reason for discontinue is not on file. Disposition: Return if symptoms worsen or fail to improve. Follow-up and Disposition History Recorded Encounter Status:Closed by GRAYSON PHAN MD on 08/30/18 CNOV Observed: 08/30/2018 Status: COMPLETED Source: [place] 9:45 AM [facility] REPOSITORY Office Visit (WOOB) VANDANA LEZAMA ([id number]) 1975 F Date Time Provider Department 08/30/18 9:45 AM SAFIA JAMIL During your visit today, we recorded the following information about you: Blood pressure Weight 100/60 77 kg Safia Jamil MD 08/30/2018 10:35 AM Signed Vandana Lezama is a 42 year old female who presents for problem visit for right-sided abdominal pain. HPI: +Right sided abdominal pain yesterday that was just below her ileostomy bag, acute in onset, sharp pain, lasted 2-3 hours. Takes Percocet from pain specialist, which took the edge off of the pain. Now the sharp pain has resolved. Now having pelvic pressure, which also seems to be improving. No dysuria, vaginal discharge, vaginal bleeding, change in bowel function. No fevers, nausea, vomiting. +Worsening sciatica pain in right side. LMP 07/25/18. Irregular cycles. Not sexually active. Has always had irregular cycles since age of 13. CTAP 08/07/18: IMPRESSION: 5 cm lower left pelvic cystic lesion, likely ovarian in origin. ? Transvaginal ultrasound is recommended. Mild hepatomegaly with steatosis, not significantly changed Pelvic US 08/09/18: IMPRESSION: Unilocular cystic mass left ovary not significantly changed from CT. This is almost certainly benign and likely represents a hemorrhagic cyst. This can be followed up sonographically as clinically indicated. 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 Mc, [facility] - Type II or unspecified type diabetes mellitus without mention of complication, not stated as uncontrolled PAST SURGICAL HISTORY Procedure Laterality Date - EPIDURAL multiple ones done by Dr. Beckett, last one in 04/2011 - KNEE SCOPE,DIAGNOSTIC 1989 Arthroscopy, knee, left - OP BRONCHOS DIAG, W/WO WASHING January 2007 Bronchoscopy - PAST SURGICAL HISTORY OF 06/2000 ILEOSTOMY/COLECTOMY - PAST SURGICAL HISTORY OF 1993 CRYOCAUTERY/ MILD DYSPLASIA - PAST SURGICAL HISTORY OF March 2006 Abdominal abscess with anal fistula - PROCTECTOMY,COMPL,COLECTOMY,BX'S 2006 AP endoanal proctectomy - REMOVAL ADENOIDS,PRIMARY,<12 Y/O as child Adenoidectomy - REMOVAL OF TONSILS,<12 Y/O AGE 11 Tonsillectomy FAMILY HISTORY Problem Relation Age of Onset - Alcohol/Drug Mother - Hypertension Mother COPD - other (vascular disease) Mother - Alcohol/Drug Father - Cancer Father liver - Diabetes Maternal Grandmother - Stroke Maternal Grandmother - Heart Maternal Grandmother - Diabetes Paternal Grandfather - Emphysema Paternal Grandmother Social History Marital status: Spouse name: Carin Years of education: 12 Number of children: 1 Occupational History Occupation Employer Comment disability Social History Main Topics Smoking status: Former Smoker Packs/day: 1.00 Years: 16.00 Types: Cigarettes Quit date: 12/04/2006 Smokeless tobacco: Never Used Alcohol use: No Drug use: No Sexual activity: Not Currently Partners with: Male Current Outpatient Prescriptions: LANTUS SOLOSTAR U-100 INSULIN 100 unit/mL (3 mL) inpn INJECT 45 UNITS SUBCUTANEOUSLY AT BEDTIME. INCREASE TO 60 UNITS AT BEDTIME DIRECTED FOR HIGH SUGARS. blood sugar diagnostic (BLOOD GLUCOSE TEST) test strip Test blood sugar(s) 2 times daily. Dx: Type 2 DM - Controlled E11.9 Insulin: No, Accu-check brand covered by insurance Lancets (ACCU-CHEK MULTICLIX LANCET) lancets Test blood sugar(s) 2 times daily. Dx: Type 2 DM - Controlled E11.9 Insulin: No Blood-Glucose Meter, Drum-type (ACCU-CHEK COMPACT PLUS CARE) kit Accu-Check Compact Plus Meter Diagnosis: Type 2 DM - Controlled E11.9 pregabalin (LYRICA) 150 mg capsule Take 1 capsule by mouth three times daily for 90 days. metFORMIN (GLUCOPHAGE) 1,000 mg tablet Take 1 tablet by mouth twice daily. ranitidine (ZANTAC) 150 mg tablet Take 1 tablet by mouth twice daily as needed. cetirizine (ZYRTEC) 10 mg tablet Take 1 tablet by mouth once daily. SUMAtriptan (IMITREX) 50 mg tablet Take one(1) tablet daily as needed, at headache onset. Repeat in two(2) hours if needed. sitaGLIPtin (JANUVIA) 50 mg tablet Take 1 tablet by mouth once daily. Insulin [place], Disposable, (BD ULTRA-FINE DIANNE PEN NEEDLE) 32 gauge x 5/32 ndle Use once a day ammonium lactate (LAC-HYDRIN) 12 % cream Apply 1-2x a day for dry areas acidophilus-pectin, citrus (ACIDOPHILUS PROBIOTIC) 100 million cell-10 mg cap Take 1 cap daily Blood-Glucose Meter ([employer] VERIO IQ METER) monitoring kit 1 Each as needed. to check blood sugars. Cholecalciferol, Vitamin D3, 2,000 unit cap Take 1 capsule by mouth once daily. COMPOUNDED PRESCRIPTION 1. V44.2 Ileostomy status (HCC) (primary diagnosis)2. 555.1 Regional enteritis of large intestine ([facility])Ileostomy Supplies. 1. Pouches, 2. Planges, 3. Felipe seals, 4. Stoma adhesive, 5. Stoma powder, 6. Skin preps, 7. Adhesive remover wipes. Dispense 1 year supplies. oxyCODONE-acetaminophen (PERCOCET) 5-325 mg tablet Take 1 tablet by mouth every 8 hours as needed. tizanidine (ZANAFLEX) 4 mg ORAL tablet Take by mouth. . Takes 1 tablet at bedtime. COMPOUNDED PRESCRIPTION CAVILON no-sting barrier film. Prod# 3343 made by [employer] No current facility-administered medications for this visit. Allergies As of Date: 08/30/2018 Allergen Noted Reaction DILAUDID [HYDROMORPHONE (BULK)] 08/07/2006 Swelling LEVEMIR [INSULIN DETEMIR] 02/17/2014 Other: See Comments METHADONE 11/04/2013 Swelling MORPHINE 08/07/2006 Swelling REMICADE [INFLIXIMAB] 08/08/2006 Intolerance ULTRAM [TRAMADOL HCL] 04/07/2009 Swelling Fully Assessed 08/30/2018 REVIEW OF SYSTEMS Abdomen: No abdominal pain, nausea, vomiting, diarrhea, or constipation. Bladder: No dysuria, gross hematuria, urinary frequency, urinary urgency. Fur Finisher Tailor: Ne bleeding or discharge. Expanded ROS: No fevers or chills. Allergies and current medication updated:Yes EXAM: BP 100/60 Wt 169 lb 12.8 oz (77.0kg) GENERAL: pleasant, female in no apparent distress HEENT: Normocephalic and atraumatic NECK: full range of motion DERMATOLOGY: +Nonconfluent, light, erythematous rash over upper chest CHEST: Normal inspiratory effort ABDOMEN: soft, no masses, +moderate tenderness across entire lower abdomen, no rebounding, no guarding, no rigidity, non-distended, ileostomy bag in place NEURO: alert and oriented x3,exam grossly non-focal EXTREMITIES: normal ASSESSMENT AND PLAN: Encounter Diagnosis ICD-10-CM 1. Abdominal pain, unspecified abdominal location R10.9 2. Abnormal uterine bleeding (AUB) N93.9 Abdominal pain: ? Had acute pain below ileostomy site yesterday. Pain now resolved. No other GI/ symptoms associated with this pain. Recent CTAP and pelvic US Jul 2018. Abdominal exam today non-acute. Discussed with patient to follow up with PCP. Unclear etiology ? Now having lower pelvic pressure, that she says is improving. Same pain that she had on 08/14/18. Pelvic US was significant for a 6cm simple cyst of the left ovary. She is to follow up with repeat pelvic US in September to assess the cyst. Discussed again warning signs and symptoms of rupture or torsion. Reviewed that she is not a good candidate for CHC to prevent cyst formation AUB: ? Had has irregular cycles since age 13 ? Discussed that anovulatory cycles are a risk factor for endometrial hyperplasia and uterine cancer. She has additional risk factors such as weight and type 2 DM. Reviewed EMB for sampling of the endometrium. Will perform EMB in the office when she follows up to review her US results Safia Jamil DO Referring Provider: SELF [[id number]] Allergies As of Date: 08/30/2018 Noted Allergy Reaction DILAUDID (HYDROMORPHONE (BULK)) 08/07/2006 7 - Swelling Comments: migraines LEVEMIR (INSULIN DETEMIR) 02/17/2014 14 - Other: See Comments Comments: Urine turned dark and smelly METHADONE 11/04/2013 7 - Swelling Comments: migraine MORPHINE 08/07/2006 7 - Swelling Comments: migraines REMICADE (INFLIXIMAB) 08/08/2006 5 - Intolerance Comments: broke out in blisters with the 6th dose. ULTRAM (TRAMADOL HCL) 04/07/2009 7 - Swelling Comments: migraines Date Reviewed: 08/30/2018 Reviewed by: Zeynep Kumar - Fully Assessed Reason for Visit: Follow Up [171] Primary Visit Diagnosis:Abdominal pain, unspecified abdominal location [R10.9] Other Visit Diagnosis:Abnormal uterine bleeding (AUB) [N93.9] Prescriptions as of 08/30/2018 Sig: LANTUS SOLOSTAR U-100 INSULIN* INJECT 45 UNITS SUBCUTANEOUSL* BLOOD SUGAR DIAGNOSTIC STRIPS Test blood sugar(s) 2 times d* LANCETS Test blood sugar(s) 2 times d* BLOOD-GLUCOSE METER, DRUM-TYP* Accu-Check Compact Plus Meter* PREGABALIN 150 MG CAPSULE Take 1 capsule by mouth three* METFORMIN 1,000 MG TABLET Take 1 tablet by mouth twice * RANITIDINE 150 MG TABLET Take 1 tablet by mouth twice * CETIRIZINE 10 MG TABLET Take 1 tablet by mouth once d* SUMATRIPTAN 50 MG TABLET Take one(1) tablet daily as n* SITAGLIPTIN 50 MG TABLET Take 1 tablet by mouth once d* PEN NEEDLE, DIABETIC 32 GAUGE* Use once a day AMMONIUM LACTATE 12 % TOPICAL* Apply 1-2x a day for dry areas ACIDOPHILUS 100 MILLION CELL-* Take 1 cap daily BLOOD-GLUCOSE METER KIT 1 Each as needed. to check bl* CHOLECALCIFEROL (VITAMIN D3) * Take 1 capsule by mouth once * COMPOUNDED PRESCRIPTION 1. V44.2 Ileostomy status (HC* OXYCODONE-ACETAMINOPHEN 5 MG-* Take 1 tablet by mouth every * TIZANIDINE 4 MG TABLET Take by mouth. . Takes 1 ta* COMPOUNDED PRESCRIPTION CAVILON no-sting barrier film* Problem List As Of Date 08/30/2018 Noted Resolved REG ENTERITIS, LG INTEST [K50.10] INVALID FOR* RETENTION OF URINE UNSPEC [R33.9] INVALID FOR* Mixed hyperlipidemia [E78.2] INVALID FOR* Anemia, unspecified [D64.9] INVALID FOR*03/08/2012 LUMBAGO [M54.5] INVALID FOR* Nonspecific abnormal results of liver function *INVALID FOR*04/19/2011 More... Onychia and paronychia of toe [L03.039] INVALID FOR*02/18/2013 ILEOSTOMY STATUS [Z93.2] INVALID FOR* IMPAIRED GLUCOSE JUNE TEST [R73.02] INVALID FOR*04/16/2008 Insulin-requiring or dependent type II diabetes*INVALID FOR* Fibromyalgia [M79.7] INVALID FOR* More... Non-alcoholic fatty liver disease [K76.0] INVALID FOR* Mild dysplasia of cervix [N87.0] INVALID FOR*03/08/2012 Fibromyalgia [M79.7] 04/19/2011 Depression [F32.9] INVALID FOR* Eczematous dermatitis: hands [L30.9] INVALID FOR*02/18/2013 Xerosis cutis [L85.3] INVALID FOR*02/18/2013 Atopic eczema [L20.9] INVALID FOR* Other psoriasis [L40.8] INVALID FOR* Contact dermatitis and other eczema, due to uns*INVALID FOR*01/03/2017 Hypoglycemia [E16.2] INVALID FOR*03/08/2012 Migraine headache without aura [G43.009] INVALID FOR* Recurrent cold sores [B00.1] INVALID FOR* Sprain of wrist, left [S63.502A] INVALID FOR*05/24/2018 Vitamin B12 deficiency [E53.8] INVALID FOR* Chronic rhinitis [J31.0] INVALID FOR* 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*INVALID FOR* 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 For follow up of US and EMB. Follow-up and Disposition History Recorded Encounter Status:Closed by SAFIA JAMIL MD on 08/30/18 PROGRESS Observed: 08/30/2018 Status: COMPLETED Source: [place] 9:22 AM [facility] HNO ID: [id number] Author: Safia Jamil Service: (none) Author Type: Physician Type: Progress Notes Filed: 08/30/2018 10:35 AM Note Text: Vandana Lezama is a 42 year old female who presents for problem visit for right-sided abdominal pain. HPI: +Right sided abdominal pain yesterday that was just below her ileostomy bag, acute in onset, sharp pain, lasted 2-3 hours. Takes Percocet from pain specialist, which took the edge off of the pain. Now the sharp pain has resolved. Now having pelvic pressure, which also seems to be improving. No dysuria, vaginal discharge, vaginal bleeding, change in bowel function. No fevers, nausea, vomiting. +Worsening sciatica pain in right side. LMP 07/25/18. Irregular cycles. Not sexually active. Has always had irregular cycles since age of 13. CTAP 08/07/18: IMPRESSION: 5 cm lower left pelvic cystic lesion, likely ovarian in origin. ? Transvaginal ultrasound is recommended. Mild hepatomegaly with steatosis, not significantly changed Pelvic US 08/09/18: IMPRESSION: Unilocular cystic mass left ovary not significantly changed from CT. This is almost certainly benign and likely represents a hemorrhagic cyst. This can be followed up sonographically as clinically indicated. 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 Mc, [facility] - Type II or unspecified type diabetes mellitus without mention of complication, not stated as uncontrolled PAST SURGICAL HISTORY Procedure Laterality Date - EPIDURAL multiple ones done by Dr. Beckett, last one in 04/2011 - KNEE SCOPE,DIAGNOSTIC 1989 Arthroscopy, knee, left - OP BRONCHOS DIAG, W/WO WASHING January 2007 Bronchoscopy - PAST SURGICAL HISTORY OF 06/2000 ILEOSTOMY/COLECTOMY - PAST SURGICAL HISTORY OF 1993 CRYOCAUTERY/ MILD DYSPLASIA - PAST SURGICAL HISTORY OF March 2006 Abdominal abscess with anal fistula - PROCTECTOMY,COMPL,COLECTOMY,BX'S 2006 AP endoanal proctectomy - REMOVAL ADENOIDS,PRIMARY,<12 Y/O as child Adenoidectomy - REMOVAL OF TONSILS,<12 Y/O AGE 11 Tonsillectomy FAMILY HISTORY Problem Relation Age of Onset - Alcohol/Drug Mother - Hypertension Mother COPD - other (vascular disease) Mother - Alcohol/Drug Father - Cancer Father liver - Diabetes Maternal Grandmother - Stroke Maternal Grandmother - Heart Maternal Grandmother - Diabetes Paternal Grandfather - Emphysema Paternal Grandmother Social History Marital status: Spouse name: Carin Years of education: 12 Number of children: 1 Occupational History Occupation Employer Comment disability Social History Main Topics Smoking status: Former Smoker Packs/day: 1.00 Years: 16.00 Types: Cigarettes Quit date: 12/04/2006 Smokeless tobacco: Never Used Alcohol use: No Drug use: No Sexual activity: Not Currently Partners with: Male Current Outpatient Prescriptions: LANTUS SOLOSTAR U-100 INSULIN 100 unit/mL (3 mL) inpn INJECT 45 UNITS SUBCUTANEOUSLY AT BEDTIME. INCREASE TO 60 UNITS AT BEDTIME DIRECTED FOR HIGH SUGARS. blood sugar diagnostic (BLOOD GLUCOSE TEST) test strip Test blood sugar(s) 2 times daily. Dx: Type 2 DM - Controlled E11.9 Insulin: No, Accu-check brand covered by insurance Lancets (ACCU-CHEK MULTICLIX LANCET) lancets Test blood sugar(s) 2 times daily. Dx: Type 2 DM - Controlled E11.9 Insulin: No Blood-Glucose Meter, Drum-type (ACCU-CHEK COMPACT PLUS CARE) kit Accu-Check Compact Plus Meter Diagnosis: Type 2 DM - Controlled E11.9 pregabalin (LYRICA) 150 mg capsule Take 1 capsule by mouth three times daily for 90 days. metFORMIN (GLUCOPHAGE) 1,000 mg tablet Take 1 tablet by mouth twice daily. ranitidine (ZANTAC) 150 mg tablet Take 1 tablet by mouth twice daily as needed. cetirizine (ZYRTEC) 10 mg tablet Take 1 tablet by mouth once daily. SUMAtriptan (IMITREX) 50 mg tablet Take one(1) tablet daily as needed, at headache onset. Repeat in two(2) hours if needed. sitaGLIPtin (JANUVIA) 50 mg tablet Take 1 tablet by mouth once daily. Insulin [place], Disposable, (BD ULTRA-FINE DIANNE PEN NEEDLE) 32 gauge x 5/32 ndle Use once a day ammonium lactate (LAC-HYDRIN) 12 % cream Apply 1-2x a day for dry areas acidophilus-pectin, citrus (ACIDOPHILUS PROBIOTIC) 100 million cell-10 mg cap Take 1 cap daily Blood-Glucose Meter (ONETOUCH VERIO IQ METER) monitoring kit 1 Each as needed. to check blood sugars. Cholecalciferol, Vitamin D3, 2,000 unit cap Take 1 capsule by mouth once daily. COMPOUNDED PRESCRIPTION 1. V44.2 Ileostomy status ([facility]) (primary diagnosis)2. 555.1 Regional enteritis of large intestine ([facility])Ileostomy Supplies. 1. Pouches, 2. Planges, 3. Felipe seals, 4. Stoma adhesive, 5. Stoma powder, 6. Skin preps, 7. Adhesive remover wipes. Dispense 1 year supplies. oxyCODONE-acetaminophen (PERCOCET) 5-325 mg tablet Take 1 tablet by mouth every 8 hours as needed. tizanidine (ZANAFLEX) 4 mg ORAL tablet Take by mouth. . Takes 1 tablet at bedtime. COMPOUNDED PRESCRIPTION CAVILON no-sting barrier film. Prod# 3343 made by [employer] current facility-administered medications for this visit. Allergies As of Date: 08/30/2018 Allergen Noted Reaction DILAUDID [HYDROMORPHONE (BULK)] 08/07/2006 Swelling LEVEMIR [INSULIN DETEMIR] 02/17/2014 Other: See Comments METHADONE 11/04/2013 Swelling MORPHINE 08/07/2006 Swelling REMICADE [INFLIXIMAB] 08/08/2006 Intolerance ULTRAM [TRAMADOL HCL] 04/07/2009 Swelling Fully Assessed 08/30/2018 REVIEW OF SYSTEMS Abdomen: No abdominal pain, nausea, vomiting, diarrhea, or constipation. Bladder: No dysuria, gross hematuria, urinary frequency, urinary urgency. Fur Finisher Tailor: Ne bleeding or discharge. Expanded ROS: No fevers or chills. Allergies and current medication updated:Yes EXAM: BP 100/60 Wt 169 lb 12.8 oz (77.0kg) GENERAL: pleasant, female in no apparent distress HEENT: Normocephalic and atraumatic NECK: full range of motion DERMATOLOGY: +Nonconfluent, light, erythematous rash over upper chest CHEST: Normal inspiratory effort ABDOMEN: soft, no masses, +moderate tenderness across entire lower abdomen, no rebounding, no guarding, no rigidity, non-distended, ileostomy bag in place NEURO: alert and oriented x3,exam grossly non-focal EXTREMITIES: normal ASSESSMENT AND PLAN: Encounter Diagnosis ICD-10-CM 1. Abdominal pain, unspecified abdominal location R10.9 2. Abnormal uterine bleeding (AUB) N93.9 Abdominal pain: ? Had acute pain below ileostomy site yesterday. Pain now resolved. No other GI/ symptoms associated with this pain. Recent CTAP and pelvic US Jul 2018. Abdominal exam today non-acute. Discussed with patient to follow up with PCP. Unclear etiology ? Now having lower pelvic pressure, that she says is improving. Same pain that she had on 08/14/18. Pelvic US was significant for a 6cm simple cyst of the left ovary. She is to follow up with repeat pelvic US in September to assess the cyst. Discussed again warning signs and symptoms of rupture or torsion. Reviewed that she is not a good candidate for CHC to prevent cyst formation AUB: ? Had has irregular cycles since age 13 ? Discussed that anovulatory cycles are a risk factor for endometrial hyperplasia and uterine cancer. She has additional risk factors such as weight and type 2 DM. Reviewed EMB for sampling of the endometrium. Will perform EMB in the office when she follows up to review her US results Safia Jamil DO ORTHOPEDIC VISIT Observed: 08/14/2018 Status: F Source: [place] REPORT 2:08 PM [facility] REPOSITORY [facility] [address] [place] [address] OFFICE VISIT Date of Service: 08/14/18 MR#: [id number] Acct: [id number] Name: VANDANA LEZAMA Braydon Rep #: [id number] : 1975 Provider: Lara Reeder DO Age/Sex: 42/F Location: [facility] [place] [place] Status: Signed Intake Intake Visit Reasons: bilateral shoulder Is patient in pain?: Yes Allergies infliximab [From Remicade] Allergy (Verified 08/14/18 11:09) Rash morphine Allergy (Verified 08/14/18 10:37) Swelling Medications Metformin HCl [Glucophage] 1,000 mg PO BIDCM 03/06/17 [History Confirmed 08/14/18] Ranitidine [Zantac] 150 mg PO BID PRN 03/06/17 [History Confirmed 08/14/18] Sitagliptin Phosphate [Januvia] 50 mg PO DAILY 03/06/17 [History Confirmed 08/14/18] Tizanidine HCl [Zanaflex] 1 - 2 tab PO BID 03/06/17 [History Confirmed 08/14/18] oxycodone-acetaminophen 5 mg-325 mg tablet 1 tab PO TID 06/28/18 [History Confirmed 08/14/18] PFSH Social History Smoking Status: Former smoker HPI bilateral shoulder: Details: VANDANA LEZAMA is a 42 year old F here today for bilateral shoulder pain. Patient notes that she has shoulder pain and pain with range of motion. She notes that she has had injections in February which were helpful for about 5 months. She has decreased range of motion. She has pain over her entire shoulder, posterior and center. She has popping and cracking with range of motion. She notes that she has an ovarian cyst and has an appt with the surgeon tomorrow, but has no scheduled surgery date. Patient continues to have leg weakness even after PT and she is having less relief with injections. ROS Const Reports system reviewed and no additional complaints, except as docu Eyes Reports system reviewed and no additional complaints, except as docu ENT Reports system reviewed and no additional complaints, except as docu Card Reports system reviewed and no additional complaints, except as docu Resp Reports system reviewed and no additional complaints, except as docu GI Reports system reviewed and no additional complaints, except as docu Reports system reviewed and no additional complaints, except as docu Musc Reports joint pain, Reports muscle weakness, Reports limited joint movement Skin/Breast Reports system reviewed and no additional complaints, except as docu Neuro Yes system reviewed and no additional complaints, except as docu Psych Reports system reviewed and no additional complaints, except as docu Endo Reports system reviewed and no additional complaints, except as docu Assessment AND Plan 1. Bilateral shoulder pain M25.511; M25.512 Plan Reviewed her upcoming possible surgery, we will consulted with her Gyne and she did not want the steroid injections done. We will have her return for her shoulder pain and injections. She continues to have weakness in the legs from her back and instructed to review with Dr Stern about epidurals and repeat MRI or EMG. Follow up as needed or sooner if pain, swelling, numbness or associated symptoms, or concerns develop. All questions answered. Patient in agreement of plan. Coding Level of Care Code Off vis,est,level 2 Diagnoses Bilateral shoulder pain M25.511; M25.512 08/14/18 1408 <Electronically signed by Lara Reeder DO> Date Lara Reeder DO Cosigner Signature: Date (if applicable) CC: PROGRESS Observed: 08/14/2018 Status: COMPLETED Source: [place] 2:01 PM [facility] REPOSITORY O ID: [id number] Author: Safia Jamil Service: (none) Author Type: Physician Type: Progress Notes Filed: 08/14/2018 5:35 PM Note Text: Vandana Lezama is a 42 year old female who presents for problem visit for adnexal cyst. HPI: Pain for 1-2 weeks. Pain is more persistent, and not improving. Pressure with sitting and using restroom. At times she also has a sharp-stabbing pain, but this is infrequent. She states she is mostly just having pressure. The pressure is worse with urination and standing. Has had pain like this before in the past. Denies fevers, nausea, vomiting, no dysuria, no vaginal discharge. LMP 07/25/18. Bleeding lasts for 2-3 days. Light. Cycles are irregular, she cannot say how many days in between cycles. Currently not sexually active. Has not been for 6 years. No concern for STI's. Pelvic US on 08/09/18: RESULT: Uterus size: 7.6 x 4.3 x 3.0 cm ?? ? -Orientation: Anteverted ?? ? -Myometrium: Normal sonographic appearance. ?? ? -Endometrial echo complex: 0.23 cm ?? ? -Cervix: normal Right ovary: 2.7 x 2.2 x 1.1 cm. ?? Normal sonographic appearance. There are normal follicular changes. Arterial and venous vascular flow is identified. Left ovary: 6.4 x 5.9 x 5.5 cm. The left ovary is enlarged and contains a unilocular 6.1 x 5.3 x 5.2 cm cystic mass with no internal blood flow. There is some internal debris. 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 Mc, [facility] - Type II or unspecified type diabetes mellitus without mention of complication, not stated as uncontrolled PAST SURGICAL HISTORY Procedure Laterality Date - EPIDURAL multiple ones done by Dr. Beckett, last one in 04/2011 - KNEE SCOPE,DIAGNOSTIC 1989 Arthroscopy, knee, left - OP BRONCHOS DIAG, W/WO WASHING January 2007 Bronchoscopy - PAST SURGICAL HISTORY OF 06/2000 ILEOSTOMY/COLECTOMY - PAST SURGICAL HISTORY OF 1993 CRYOCAUTERY/ MILD DYSPLASIA - PAST SURGICAL HISTORY OF March 2006 Abdominal abscess with anal fistula - PROCTECTOMY,COMPL,COLECTOMY,BX'S 2006 AP endoanal proctectomy - REMOVAL ADENOIDS,PRIMARY,<12 Y/O as child Adenoidectomy - REMOVAL OF TONSILS,<12 Y/O AGE 11 Tonsillectomy FAMILY HISTORY Problem Relation Age of Onset - Alcohol/Drug Mother - Hypertension Mother COPD - other (vascular disease) Mother - Alcohol/Drug Father - Cancer Father liver - Diabetes Maternal Grandmother - Stroke Maternal Grandmother - Heart Maternal Grandmother - Diabetes Paternal Grandfather - Emphysema Paternal Grandmother Social History Marital status: Spouse name: Carin Years of education: 12 Number of children: 1 Occupational History Occupation Employer Comment disability Social History Main Topics Smoking status: Former Smoker Packs/day: 1.00 Years: 16.00 Types: Cigarettes Quit date: 12/04/2006 Smokeless tobacco: Never Used Alcohol use: No Drug use: No Sexual activity: Not Currently Partners with: Male Current Outpatient Prescriptions: blood sugar diagnostic (BLOOD GLUCOSE TEST) test strip Test blood sugar(s) 2 times daily. Dx: Type 2 DM - Controlled E11.9 Insulin: No, Accu-check brand covered by insurance Lancets (ACCU-CHEK MULTICLIX LANCET) lancets Test blood sugar(s) 2 times daily. Dx: Type 2 DM - Controlled E11.9 Insulin: No Blood-Glucose Meter, Drum-type (ACCU-CHEK COMPACT PLUS CARE) kit Accu-Check Compact Plus Meter Diagnosis: Type 2 DM - Controlled E11.9 pregabalin (LYRICA) 150 mg capsule Take 1 capsule by mouth three times daily for 90 days. metFORMIN (GLUCOPHAGE) 1,000 mg tablet Take 1 tablet by mouth twice daily. ranitidine (ZANTAC) 150 mg tablet Take 1 tablet by mouth twice daily as needed. cetirizine (ZYRTEC) 10 mg tablet Take 1 tablet by mouth once daily. SUMAtriptan (IMITREX) 50 mg tablet Take one(1) tablet daily as needed, at headache onset. Repeat in two(2) hours if needed. insulin glargine (LANTUS SOLOSTAR U-100 INSULIN) 100 unit/mL (3 mL) inpn Inject 45 units daily at bedtime. Increase to 60 units daily at bedtime as directed for high sugars sitaGLIPtin (JANUVIA) 50 mg tablet Take 1 tablet by mouth once daily. Insulin [place], Disposable, (BD ULTRA-FINE DIANNE PEN NEEDLE) 32 gauge x 5/32 ndle Use once a day ammonium lactate (LAC-HYDRIN) 12 % cream Apply 1-2x a day for dry areas acidophilus-pectin, citrus (ACIDOPHILUS PROBIOTIC) 100 million cell-10 mg cap Take 1 cap daily Blood-Glucose Meter (ONETOUCH VERIO IQ METER) monitoring kit 1 Each as needed. to check blood sugars. Cholecalciferol, Vitamin D3, 2,000 unit cap Take 1 capsule by mouth once daily. COMPOUNDED PRESCRIPTION 1. V44.2 Ileostomy status (HCC) (primary diagnosis)2. 555.1 Regional enteritis of large intestine (HCC)Ileostomy Supplies. 1. Pouches, 2. Planges, 3. Felipe seals, 4. Stoma adhesive, 5. Stoma powder, 6. Skin preps, 7. Adhesive remover wipes. Dispense 1 year supplies. oxyCODONE-acetaminophen (PERCOCET) 5-325 mg tablet Take 1 tablet by mouth every 8 hours as needed. tizanidine (ZANAFLEX) 4 mg ORAL tablet Take by mouth. . Takes 1 tablet at bedtime. COMPOUNDED PRESCRIPTION CAVILON no-sting barrier film. Prod# [id number] made by [employer] No current facility-administered medications for this visit. Allergies As of Date: 08/14/2018 Allergen Noted Reaction DILAUDID [HYDROMORPHONE (BULK)] 08/07/2006 Swelling LEVEMIR [INSULIN DETEMIR] 02/17/2014 Other: See Comments METHADONE 11/04/2013 Swelling MORPHINE 08/07/2006 Swelling REMICADE [INFLIXIMAB] 08/08/2006 Intolerance ULTRAM [TRAMADOL HCL] 04/07/2009 Swelling Fully Assessed 08/14/2018 REVIEW OF SYSTEMS Abdomen: No abdominal pain, vomiting. Has an ileostomy Bladder: No dysuria, gross hematuria, urinary frequency, urinary urgency, or incontinence. Expanded ROS: See HPI Allergies and current medication updated:Yes EXAM: BP 114/80 Wt 172 lb (78.0kg) GENERAL: pleasant, female in no apparent distress HEENT: Normocephalic and atraumatic NECK: full range of motion DERMATOLOGY: Normal and without lesions CHEST: Normal inspiratory effort ABDOMEN: soft, no masses and +tenderness across entire lower abdomen, no rebounding/gaurding/rigidity, ileostomy present PELVIC: external genitalia normal, normal Bartholin's glands, urethra, Dunthorpe's glands, no vulvar lesions, no cervical lesions, good vaginal support, physiologic discharge present, normal appearing perineal body and perianal region BIMANUAL: uterus normal size, shape and consistency, no adnexal masses, non-tender and limited given body habitus NEURO: alert and oriented x3,exam grossly non-focal EXTREMITIES: normal ASSESSMENT AND PLAN: Encounter Diagnosis ICD-10-CM 1. Adnexal cyst N94.9 PELVIC US WHI ? Patient comfortable appearing today, and abdominal exam benign ? Reviewed US images and cyst is simple appearing ? Will follow cyst with imaging ? Repeat US in 6 weeks (unsure if it will be at a different point in her cycle given irregular cycles) ? Reviewed rupture and torsion with patient, and return precautions given ? CA-125 nml on 08/06/18 ? Will call with US results Safia Jamil DO CNOV Observed: 08/14/2018 Status: COMPLETED Source: [place] 2:00 PM [facility] REPOSITORY Office Visit (WOOB) LEZAMAVANDANA Bryson ([id number]) 1975 F Date Time Provider Department 08/14/18 2:00 PM SAFIA JAMIL During your visit today, we recorded the following information about you: Blood pressure Weight 114/80 78 kg Safia Jamil MD 08/14/2018 5:35 PM Signed Vandana Bryson Teja is a 42 year old female who presents for problem visit for adnexal cyst. HPI: Pain for 1-2 weeks. Pain is more persistent, and not improving. Pressure with sitting and using restroom. At times she also has a sharp- stabbing pain, but this is infrequent. She states she is mostly just having pressure. The pressure is worse with urination and standing. Has had pain like this before in the past. Denies fevers, nausea, vomiting, no dysuria, no vaginal discharge. LMP 07/25/18. Bleeding lasts for 2-3 days. Light. Cycles are irregular, she cannot say how many days in between cycles. Currently not sexually active. Has not been for 6 years. No concern for STI's. Pelvic US on 08/09/18: RESULT: Uterus size: 7.6 x 4.3 x 3.0 cm ?? ? -Orientation: Anteverted ?? ? -Myometrium: Normal sonographic appearance. ?? ? -Endometrial echo complex: 0.23 cm ?? ? -Cervix: normal Right ovary: 2.7 x 2.2 x 1.1 cm. ?? Normal sonographic appearance. There are normal follicular changes. Arterial and venous vascular flow is identified. Left ovary: 6.4 x 5.9 x 5.5 cm. The left ovary is enlarged and contains a unilocular 6.1 x 5.3 x 5.2 cm cystic mass with no internal blood flow. There is some internal debris. 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 Mc, [facility] - Type II or unspecified type diabetes mellitus without mention of complication, not stated as uncontrolled PAST SURGICAL HISTORY Procedure Laterality Date - EPIDURAL multiple ones done by Dr. Beckett, last one in 04/2011 - KNEE SCOPE,DIAGNOSTIC 1989 Arthroscopy, knee, left - OP BRONCHOS DIAG, W/WO WASHING January 2007 Bronchoscopy - PAST SURGICAL HISTORY OF 06/2000 ILEOSTOMY/COLECTOMY - PAST SURGICAL HISTORY OF 1993 CRYOCAUTERY/ MILD DYSPLASIA - PAST SURGICAL HISTORY OF March 2006 Abdominal abscess with anal fistula - PROCTECTOMY,COMPL,COLECTOMY,BX'S 2006 AP endoanal proctectomy - REMOVAL ADENOIDS,PRIMARY,<12 Y/O as child Adenoidectomy - REMOVAL OF TONSILS,<12 Y/O AGE 11 Tonsillectomy FAMILY HISTORY Problem Relation Age of Onset - Alcohol/Drug Mother - Hypertension Mother COPD - other (vascular disease) Mother - Alcohol/Drug Father - Cancer Father liver - Diabetes Maternal Grandmother - Stroke Maternal Grandmother - Heart Maternal Grandmother - Diabetes Paternal Grandfather - Emphysema Paternal Grandmother Social History Marital status: Spouse name: Carin Years of education: 12 Number of children: 1 Occupational History Occupation Employer Comment disability Social History Main Topics Smoking status: Former Smoker Packs/day: 1.00 Years: 16.00 Types: Cigarettes Quit date: 12/04/2006 Smokeless tobacco: Never Used Alcohol use: No Drug use: No Sexual activity: Not Currently Partners with: Male Current Outpatient Prescriptions: blood sugar diagnostic (BLOOD GLUCOSE TEST) test strip Test blood sugar(s) 2 times daily. Dx: Type 2 DM - Controlled E11.9 Insulin: No, Accu-check brand covered by insurance Lancets (ACCU-CHEK MULTICLIX LANCET) lancets Test blood sugar(s) 2 times daily. Dx: Type 2 DM - Controlled E11.9 Insulin: No Blood-Glucose Meter, Drum-type (ACCU-CHEK COMPACT PLUS CARE) kit Accu-Check Compact Plus Meter Diagnosis: Type 2 DM - Controlled E11.9 pregabalin (LYRICA) 150 mg capsule Take 1 capsule by mouth three times daily for 90 days. metFORMIN (GLUCOPHAGE) 1,000 mg tablet Take 1 tablet by mouth twice daily. ranitidine (ZANTAC) 150 mg tablet Take 1 tablet by mouth twice daily as needed. cetirizine (ZYRTEC) 10 mg tablet Take 1 tablet by mouth once daily. SUMAtriptan (IMITREX) 50 mg tablet Take one(1) tablet daily as needed, at headache onset. Repeat in two(2) hours if needed. insulin glargine (LANTUS SOLOSTAR U-100 INSULIN) 100 unit/mL (3 mL) inpn Inject 45 units daily at bedtime. Increase to 60 units daily at bedtime as directed for high sugars sitaGLIPtin (JANUVIA) 50 mg tablet Take 1 tablet by mouth once daily. Insulin [place], Disposable, (BD ULTRA-FINE DIANNE PEN NEEDLE) 32 gauge x 5/32 ndle Use once a day ammonium lactate (LAC-HYDRIN) 12 % cream Apply 1-2x a day for dry areas acidophilus-pectin, citrus (ACIDOPHILUS PROBIOTIC) 100 million cell-10 mg cap Take 1 cap daily Blood-Glucose Meter (ONETOUCH VERIO IQ METER) monitoring kit 1 Each as needed. to check blood sugars. Cholecalciferol, Vitamin D3, 2,000 unit cap Take 1 capsule by mouth once daily. COMPOUNDED PRESCRIPTION 1. V44.2 Ileostomy status (HCC) (primary diagnosis)2. 555.1 Regional enteritis of large intestine ([facility])Ileostomy Supplies. 1. Pouches, 2. Planges, 3. Felipe seals, 4. Stoma adhesive, 5. Stoma powder, 6. Skin preps, 7. Adhesive remover wipes. Dispense 1 year supplies. oxyCODONE-acetaminophen (PERCOCET) 5-325 mg tablet Take 1 tablet by mouth every 8 hours as needed. tizanidine (ZANAFLEX) 4 mg ORAL tablet Take by mouth. . Takes 1 tablet at bedtime. COMPOUNDED PRESCRIPTION CAVILON no-sting barrier film. Prod# [id number] made by [employer] No current facility-administered medications for this visit. Allergies As of Date: 08/14/2018 Allergen Noted Reaction DILAUDID [HYDROMORPHONE (BULK)] 08/07/2006 Swelling LEVEMIR [INSULIN DETEMIR] 02/17/2014 Other: See Comments METHADONE 11/04/2013 Swelling MORPHINE 08/07/2006 Swelling REMICADE [INFLIXIMAB] 08/08/2006 Intolerance ULTRAM [TRAMADOL HCL] 04/07/2009 Swelling Fully Assessed 08/14/2018 REVIEW OF SYSTEMS Abdomen: No abdominal pain, vomiting. Has an ileostomy Bladder: No dysuria, gross hematuria, urinary frequency, urinary urgency, or incontinence. Expanded ROS: See HPI Allergies and current medication updated:Yes EXAM: BP 114/80 Wt 172 lb (78.0kg) GENERAL: pleasant, female in no apparent distress HEENT: Normocephalic and atraumatic NECK: full range of motion DERMATOLOGY: Normal and without lesions CHEST: Normal inspiratory effort ABDOMEN: soft, no masses and +tenderness across entire lower abdomen, no rebounding/gaurding/rigidity, ileostomy present PELVIC: external genitalia normal, normal Bartholin's glands, urethra, Dunthorpe's glands, no vulvar lesions, no cervical lesions, good vaginal support, physiologic discharge present, normal appearing perineal body and perianal region BIMANUAL: uterus normal size, shape and consistency, no adnexal masses, non-tender and limited given body habitus NEURO: alert and oriented x3,exam grossly non-focal EXTREMITIES: normal ASSESSMENT AND PLAN: Encounter Diagnosis ICD-10-CM 1. Adnexal cyst N94.9 PELVIC US WHI ? Patient comfortable appearing today, and abdominal exam benign ? Reviewed US images and cyst is simple appearing ? Will follow cyst with imaging ? Repeat US in 6 weeks (unsure if it will be at a different point in her cycle given irregular cycles) ? Reviewed rupture and torsion with patient, and return precautions given ? CA-125 nml on 08/06/18 ? Will call with US results Safia Jamil, DO Referring Provider: SELF [[id number]] Allergies As of Date: 08/14/2018 Noted Allergy Reaction DILAUDID (HYDROMORPHONE (BULK)) 08/07/2006 7 - Swelling Comments: migraines LEVEMIR (INSULIN DETEMIR) 02/17/2014 14 - Other: See Comments Comments: Urine turned dark and smelly METHADONE 11/04/2013 7 - Swelling Comments: migraine MORPHINE 08/07/2006 7 - Swelling Comments: migraines REMICADE (INFLIXIMAB) 08/08/2006 5 - Intolerance Comments: broke out in blisters with the 6th dose. ULTRAM (TRAMADOL HCL) 04/07/2009 7 - Swelling Comments: migraines Date Reviewed: 08/14/2018 Reviewed by: Caitlin Burrows Ma - Fully Assessed Primary Visit Diagnosis:Adnexal cyst [N94.9] Order(s):PELVIC US WHI [[id number]] Order #: [id number]: 1 FUTURE PELVIC US WHI [[id number]] Order #: [id number]: 1 Prescriptions as of 08/14/2018 Sig: BLOOD SUGAR DIAGNOSTIC STRIPS Test blood sugar(s) 2 times d* LANCETS Test blood sugar(s) 2 times d* BLOOD-GLUCOSE METER, DRUM-TYP* Accu-Check Compact Plus Meter* PREGABALIN 150 MG CAPSULE Take 1 capsule by mouth three* METFORMIN 1,000 MG TABLET Take 1 tablet by mouth twice * RANITIDINE 150 MG TABLET Take 1 tablet by mouth twice * CETIRIZINE 10 MG TABLET Take 1 tablet by mouth once d* SUMATRIPTAN 50 MG TABLET Take one(1) tablet daily as n* INSULIN GLARGINE (U-100) 100 * Inject 45 units daily at bedt* SITAGLIPTIN 50 MG TABLET Take 1 tablet by mouth once d* PEN NEEDLE, DIABETIC 32 GAUGE* Use once a day AMMONIUM LACTATE 12 % TOPICAL* Apply 1-2x a day for dry areas ACIDOPHILUS 100 MILLION CELL-* Take 1 cap daily BLOOD-GLUCOSE METER KIT 1 Each as needed. to check bl* CHOLECALCIFEROL (VITAMIN D3) * Take 1 capsule by mouth once * COMPOUNDED PRESCRIPTION 1. V44.2 Ileostomy status (HC* OXYCODONE-ACETAMINOPHEN 5 MG-* Take 1 tablet by mouth every * TIZANIDINE 4 MG TABLET Take by mouth. . Takes 1 ta* COMPOUNDED PRESCRIPTION CAVILON no-sting barrier film* Problem List As Of Date 08/14/2018 Noted Resolved REG ENTERITIS, LG INTEST [K50.10] INVALID FOR* RETENTION OF URINE UNSPEC [R33.9] INVALID FOR* Mixed hyperlipidemia [E78.2] INVALID FOR* Anemia, unspecified [D64.9] INVALID FOR*03/08/2012 LUMBAGO [M54.5] INVALID FOR* Nonspecific abnormal results of liver function *INVALID FOR*04/19/2011 More... Onychia and paronychia of toe [L03.039] INVALID FOR*02/18/2013 ILEOSTOMY STATUS [Z93.2] INVALID FOR* IMPAIRED GLUCOSE JUNE TEST [R73.02] INVALID FOR*04/16/2008 Insulin-requiring or dependent type II diabetes*INVALID FOR* Fibromyalgia [M79.7] INVALID FOR* More... Non-alcoholic fatty liver disease [K76.0] INVALID FOR* Mild dysplasia of cervix [N87.0] INVALID FOR*03/08/2012 Fibromyalgia [M79.7] 04/19/2011 Depression [F32.9] INVALID FOR* Eczematous dermatitis: hands [L30.9] INVALID FOR*02/18/2013 Xerosis cutis [L85.3] INVALID FOR*02/18/2013 Atopic eczema [L20.9] INVALID FOR* Other psoriasis [L40.8] INVALID FOR* Contact dermatitis and other eczema, due to uns*INVALID FOR*01/03/2017 Hypoglycemia [E16.2] INVALID FOR*03/08/2012 Migraine headache without aura [G43.009] INVALID FOR* Recurrent cold sores [B00.1] INVALID FOR* Sprain of wrist, left [S63.502A] INVALID FOR*05/24/2018 Vitamin B12 deficiency [E53.8] INVALID FOR* Chronic rhinitis [J31.0] INVALID FOR* 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*INVALID FOR* 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] INVALID FOR* Vitreous floaters of both eyes [H43.393] INVALID FOR* Level of Service: EST PATIENT VISIT LEVEL 3 [[id number]] Follow-up and Disposition History Recorded Encounter Status:Closed by SAFIA JAMIL MD on 08/14/18 DISCHARGE INSTRUCTION Observed: 08/14/2018 Status: F Source: [place] 1:28 PM [facility] REPOSITORY [facility] Medical Records Department [address] [place] [address] Discharge Instruction 08/14/187 MR#: [id number] Acct: [id number] Name: VANDANA LEZAMA Rep #: [id number] : 1975 42 From: Eliazar Sanderson DO PCP: Grayson Phan MD Status: REG ER ED Disposition - Plan for ED Patient: Chief Complaint: Abd Pain Instructions: ED Abdominal Pain Unkn Cause, ED Cyst Ovarian Referrals: Grayson Phan MD [Primary Care Provider] - Safia Jamil DO [STAFF PHYSICIAN] - As soon as possible What to do if you have Problems For any increased pain, shortness of breath, bleeding, nausea or vomiting, chest pain, or any unexpected problems, contact your Primary Care Provider. Call [facility] ([phone]) or report to the closest Emergency Room. Call 911 if necessary. 08/14/181327 <Electronically signed by Eliazar Sanderson DO> Date Eliazar Sanderson DO Cosigner Signature (If Indicated): Date CC: Grayson Phan MD EMERGENCY DEPARTMENT Observed: 08/14/2018 Status: F Source: [place] SUMMARY 1:26 PM [facility] REPOSITORY [facility] Medical Records Department [address] [place] [address] Emergency Department Summary 08/14/18 1323 MR#: [id number] Acct: [id number] Name: VANDANA LEZAMA Rep #: [id number] : 1975 42 From: Eliazar Sanderson DO PCP: Grayson Phan MD Status: REG ER - ER Visit Summary Date of Service: 08/14/18 Chief Complaint: Abdominal pain] History of Present Illness: The patient is a 42 F [presents with abdominal pain that she has had for 3 weeks. Patient states that she has had significant workup already to look into this including CT scan of the abdomen and pelvis which showed a cystic mass believed to be originating in the ovary on the left. Patient subsequently had a pelvic ultrasound that did show an ovarian cyst measuring 5 cm believed to be a hemorrhagic cyst. Patient denies any vaginal bleeding. Patient states that she also had a CA 125 test that was negative. Patient takes Percocet 3 times a day and that seems to just barely take the edge off her pain. Patient has an appointment with [facility] Dr. Jamil tomorrow. Patient complains of a lot of pressure when she urinates. She denies dysuria however. She has not had any fevers. This is the same pain she has had over the last 3 weeks.] Physical Examination: [HEENT-PERRLA, EOMI. Cranial nerves II through XII grossly intact. TMs clear. Mucous membranes moist. No adenopathy. Cardiovascular-regular rate and rhythm without murmur or ectopy Lungs-clear to auscultation, chest wall stable without crepitus or subcu emphysema Abdomen-normoactive bowel sounds, soft. Patient has tenderness of the left lower quadrant into the pelvic region. No masses palpated. Patient does have ileostomy right lower quadrant. Extremities-intact 4, normal range of motion, normal pulses, atraumatic] Test Results: [CBC with differential obtained was normal. Chemistries unremarkable. Urinalysis was normal. HCG was negative.] Emergency Department Course and Treatment: Patient was medicated with Toradol 30 mg IV she did have some pain relief with that. At this point I do not feel any further imaging is indicated. I did discuss case with her [facility] who will see her later today.] Treatment Plan: [Follow-up with [facility] today.] Disposition: [Discharged home stable condition.] Impression: [Left abdominal pelvic pain Ovarian cyst] This note was generated with Dragon dictation software. It may contain incorrect words, spelling, and punctuation that were not noted in review of the chart prior to signing ED Disposition - Plan for ED Patient: Chief Complaint: Abd Pain Referrals: Grayson Phan MD [Primary Care Provider] - What to do if you have Problems For any increased pain, shortness of breath, bleeding, nausea or vomiting, chest pain, or any unexpected problems, contact your Primary Care Provider. Call [facility] ([phone]) or report to the closest Emergency Room. Call 911 if necessary. 08/14/18 1326 <Electronically signed by Eliazar Sanderson DO> Date Eliazar Sanderson DO Cosigner Signature (If Indicated): Date CC: Grayson Phan MD URINALYSIS, COMPLETE Collected: 08/14/2018 Status: F Source: [place] 12:10 PM [facility] REPOSITORY Order Comment: Order Date: 08/14/18 How was Urine Obtained? CLEAN CATCH TYPE CODE TESTS RESULT OUT OF RANGE REFERENCE UNITS LAB L400.3000 Yellow COLOR Normal Yellow LAB L400.3050 Clear Normal CLARITY Sl. Cloudy LAB L400.3200 Normal mg/dl High 50 GLUCOSE, UR LAB L400.3300 Negative mg/dL Normal BILIRUBIN URINE Negative LAB L400.3400 Negative mg/dl Normal KETONE UR Negative LAB L400.3465 1.002-1.030 Normal SP.GR. DIPSTX 1.025 LAB L400.3550 5.0 - 8.0 pH UR Normal 5.0 LAB L400.3600 Negative mg/dl High PROT 15 DIPSTX LAB L400.3700 Normal mg/dl Normal UROBILI Normal LAB L400.3750 Negative Normal NITRITE UR Negative LAB L400.3780 Negative /ul High 10 OCCULT BLOOD-UR LAB L400.3800 Negative /ul High LEUK 25 ESTERASE LAB L400.4050 0-5 /hpf WBC Normal 0-5 SEEN LAB L400.4100 0-5 /hpf 0 Normal RBC-UA SEEN LAB L400.4150 5-10 /hpf SQUAM Normal EPI 0-5 SEEN LAB L400.4300 None Seen /hpf Normal BACTERIA RARE LAB L400.4350 <or=2+ /hpf 1+ Normal MUCUS, URINE Performed By: #### L400.0001 #### [facility] [address] [place], [place], [id number] CBC W/DIFF, AUTOMATED Collected: 08/14/2018 Status: F Source: [place] 11:00 AM [facility] REPOSITORY TYPE CODE TESTS RESULT OUT OF RANGE REFERENCE UNITS LAB L100.1000 4.4-11.0 K/mm3 Normal WBC 6.4 LAB L100.1200 4.2-5.4 M/mm3 Normal RBC 5.02 LAB L100.1300 12.0-15.0 g/dl Normal HGB 14.2 LAB L100.1400 37-47 % Normal HCT 43.0 LAB L100.1500 81-99 fL Normal MCV 85.7 LAB L100.1600 27.0-32.0 pg Normal MCH 28.3 LAB L100.1700 32-36 g/gl Normal MCHC 33.0 LAB L100.1810 11.6-14.6 % Normal RDW CV 12.9 LAB L100.1820 35.1-43.9 fl Normal RDW SD 40.1 LAB L100.1900 150-450 K/mm3 Normal PLT 176 LAB L100.2000 6.2-12.0 fl Normal MPV 10.8 LAB L100.2100 47-70 % Normal NEUT% 47.2 LAB L100.2200 19-41 % High LY% 44.1 LAB L100.2300 0-10 % Normal MONO% 6.0 LAB L100.2400 0-5 % Normal EO% 2.2 LAB L100.2500 0-1 % Normal BASO% 0.3 LAB L100.2550 0.0-0.9 % Normal IM GRAN % 0.200 Result Comment: IG% - Immature Granulocytes (promyelocytes, myelocytes and metamyelocytes) > 1% indicates that a LEFT SHIFT is Present. LAB L100.2620 2.0-7.7 X10 3/uL Normal Absolute Neut 3.0 LAB L100.2720 0.83-4.51 X10 3/ul Normal Absolute Lymph 2.81 Performed By: #### L100.0100 #### [facility] [address] [place], [place], [id number] BASIC METABOLIC Collected: 08/14/2018 Status: F Source: [place] PROFILE (BMP) 11:00 AM [facility] REPOSITORY TYPE CODE TESTS RESULT OUT OF RANGE REFERENCE UNITS LAB L501.0100 74-106 mg/dL High GLU 183 Result Comment: Fasting Glucose result greater than or equal to 126 mg/dL suggests DIABETES MELLITUS per A.D.A. criteria. Please note revised GLUCOSE reference range effective 2017. LAB L501.1000 7-18 mg/dL Low BUN 6 LAB L501.1100 0.55-1.02 mg/dL Normal CREAT,SERUM 0.73 Result Comment: The validity of the calculated GFR AND GFRAA in patients over 70 years has not been determined. Clinical correlation is essential. LAB L501.1110 >60 mL/min Normal EST GFR 92 Result Comment: Non- GFR Calc LAB L501.1115 >60 mL/min Normal EST GFR - AA 111 Result Comment: GFR Calc LAB L501.1255 ml/min Normal Estimated CRCL 125.16 LAB L501.1300 10-20 RATIO Low BUN/CRE 8.2 LAB L501.2200 8.5-10 mg/dL .1 CA Normal 9.7 LAB L501.5300 136-14 mmol/L 5 NA Normal 138 LAB L501.5600 3.5-5. mmol/L 1 K Normal 4.1 Result Comment: Slight Hemolysis, Result may be falsely increased. LAB L501.5900 98-107 mmol/L Normal CL 105 LAB L501.6100 21.0-32.0 mmol/L Normal CO2 22.0 LAB L501.6200 5-15 Normal GAP 11 Performed By: #### L500.2500 #### [facility] [address] [place], [place], [id number] ,SERUM,HCG QUALI. Collected: Status: F Source: [place] 08/14/2018 11:00 AM [facility] REPOSITORY TYPE CODE TESTS RESULT OUT OF REFERENCE UNITS RANGE LAB L700.6700 =>Qualitative mIU/mL Normal HCG Qual < 1 triggr LAB L700.7000 0-9 Nonpreg Negative Normal HCGSQUAL NEGATIVE Performed By: #### L700.6800 #### [facility] [address], [address] CNPN Observed: 08/14/2018 Status: COMPLETED Source: [place] 12:00 AM [facility] REPOSITORY Telephone (WOOB) VANDANA LEZAMA ([id number]) 1975 F Date Time Provider Department 08/14/18 SAFIA JAMIL During your visit today, we recorded the following information about you: Safia Jamil MD 08/14/2018 1:19 PM Signed Patient went to the ED for pelvic pain. Discussed case with ED physician just now who reports lab work was normal, and abdominal exam is not acute. Pain improved with IV toradol in ED. Can you schedule the patient for an appointment to come see me today? She already has an appointment for tomorrow, but she would like to be seen sooner. Thanks! Lizz Barker RN 08/14/2018 1:58 PM Signed Patient given appointment for today. Lizz Garrett LPN 08/17/2018 4:26 PM Signed Patient called stating that she is now having constant pressure in her left lower quadrant near the end of her rib cage and pain rated a 2/10 on pain scale in her left lower quadrant with activity. Patient also reports that she has noticed herself burping after eating/drinking which is new for her. Please advise. Safia Jamil MD 08/17/2018 4:41 PM Signed I still recommend the repeat US in 6 weeks, and then follow up with me after. She should call or come in with any severe/uncontrolled pain, nausea and vomiting, fevers. Thanks! Allergies As of Date: 08/14/2018 Noted Allergy Reaction DILAUDID (HYDROMORPHONE (BULK)) 08/07/2006 7 - Swelling Comments: migraines LEVEMIR (INSULIN DETEMIR) 02/17/2014 14 - Other: See Comments Comments: Urine turned dark and smelly METHADONE 11/04/2013 7 - Swelling Comments: migraine MORPHINE 08/07/2006 7 - Swelling Comments: migraines REMICADE (INFLIXIMAB) 08/08/2006 5 - Intolerance Comments: broke out in blisters with the 6th dose. ULTRAM (TRAMADOL HCL) 04/07/2009 7 - Swelling Comments: migraines Date Reviewed: 08/14/2018 Reviewed by: Caitlin Burrows Ma - Fully Assessed Reason for Visit: Appointment [[id number]] Prescriptions as of 08/14/2018 Sig: BLOOD SUGAR DIAGNOSTIC STRIPS Test blood sugar(s) 2 times d* LANCETS Test blood sugar(s) 2 times d* BLOOD-GLUCOSE METER, DRUM-TYP* Accu-Check Compact Plus Meter* PREGABALIN 150 MG CAPSULE Take 1 capsule by mouth three* METFORMIN 1,000 MG TABLET Take 1 tablet by mouth twice * RANITIDINE 150 MG TABLET Take 1 tablet by mouth twice * CETIRIZINE 10 MG TABLET Take 1 tablet by mouth once d* SUMATRIPTAN 50 MG TABLET Take one(1) tablet daily as n* INSULIN GLARGINE (U-100) 100 * Inject 45 units daily at bedt* SITAGLIPTIN 50 MG TABLET Take 1 tablet by mouth once d* PEN NEEDLE, DIABETIC 32 GAUGE* Use once a day AMMONIUM LACTATE 12 % TOPICAL* Apply 1-2x a day for dry areas ACIDOPHILUS 100 MILLION CELL-* Take 1 cap daily BLOOD-GLUCOSE METER KIT 1 Each as needed. to check bl* CHOLECALCIFEROL (VITAMIN D3) * Take 1 capsule by mouth once * COMPOUNDED PRESCRIPTION 1. V44.2 Ileostomy status (HC* OXYCODONE-ACETAMINOPHEN 5 MG-* Take 1 tablet by mouth every * TIZANIDINE 4 MG TABLET Take by mouth. . Takes 1 ta* COMPOUNDED PRESCRIPTION CAVILON no-sting barrier film* Problem List As Of Date 08/14/2018 Noted Resolved REG ENTERITIS, LG INTEST [K50.10] INVALID FOR* RETENTION OF URINE UNSPEC [R33.9] INVALID FOR* Mixed hyperlipidemia [E78.2] INVALID FOR* Anemia, unspecified [D64.9] INVALID FOR*03/08/2012 LUMBAGO [M54.5] INVALID FOR* Nonspecific abnormal results of liver function *INVALID FOR*04/19/2011 More... Onychia and paronychia of toe [L03.039] INVALID FOR*02/18/2013 ILEOSTOMY STATUS [Z93.2] INVALID FOR* IMPAIRED GLUCOSE JUNE TEST [R73.02] INVALID FOR*04/16/2008 Insulin-requiring or dependent type II diabetes*INVALID FOR* Fibromyalgia [M79.7] INVALID FOR* More... Non-alcoholic fatty liver disease [K76.0] INVALID FOR* Mild dysplasia of cervix [N87.0] INVALID FOR*03/08/2012 Fibromyalgia [M79.7] 04/19/2011 Depression [F32.9] INVALID FOR* Eczematous dermatitis: hands [L30.9] INVALID FOR*02/18/2013 Xerosis cutis [L85.3] INVALID FOR*02/18/2013 Atopic eczema [L20.9] INVALID FOR* Other psoriasis [L40.8] INVALID FOR* Contact dermatitis and other eczema, due to uns*INVALID FOR*01/03/2017 Hypoglycemia [E16.2] INVALID FOR*03/08/2012 Migraine headache without aura [G43.009] INVALID FOR* Recurrent cold sores [B00.1] INVALID FOR* Sprain of wrist, left [S63.502A] INVALID FOR*05/24/2018 Vitamin B12 deficiency [E53.8] INVALID FOR* Chronic rhinitis [J31.0] INVALID FOR* 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*INVALID FOR* 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] INVALID FOR* Vitreous floaters of both eyes [H43.393] INVALID FOR* Encounter Status:Closed by LIZZ BARKER RN on 08/14/18 PROGRESS Observed: 08/09/2018 Status: COMPLETED Source: [place] 2:58 PM [facility] REPOSITORY O ID: [id number] Author: Jocelyne Stevens Rdms Service: (none) Author Type: (none) Type: Progress Notes Filed: 08/09/2018 2:59 PM Note Text: Radiology Service Progress Note PATIENT NAME: Vandana Lezama DATE OF SERVICE: August 09, 2018 TIME: 2:58 PM PATIENT IDENTITY VERIFICATION COMPLETED USING TWO (2) METHODS: Patient confirmed name verbally and Date of . PATIENT GENDER DATA: Female. status: : No status: NO. PATIENT RELEVANT IMPLANT DATA REVIEWED: Not Applicable RADIOLOGY DEPARTMENT: Ultrasound PERIPHERAL IV DATA: Not applicable SIGNED BY: Jocelyne Stevens Rdms August 09, 2018 2:58 PM US FEMALE PELVIS Observed: 08/09/2018 Status: F Source: [facility] 2:25 PM [facility] REPOSITORY * * *Final Report* * * DATE OF EXAM: Aug 09 2018 2:25PM [facility] 1060 - US FEMALE PELVIS TRANSVAG / PROCEDURE REASON: Ovarian mass, left * * * * Physician Interpretation * * * * EXAMINATION: TRANSVAGINAL AND LIMITED TRANSABDOMINAL PELVIC ULTRASOUND CLINICAL HISTORY: Follow-up left ovarian mass TECHNIQUE: Sonography of the pelvis was performed by transvaginal and transabdominal (limited) techniques. Images were obtained and stored in a permanent archive. MQ: UFP_1 COMPARISON: Comparison is made to prior CT dated 07 August 2018 RESULT: Uterus size: 7.6 x 4.3 x 3.0 cm -Orientation: Anteverted -Myometrium: Normal sonographic appearance. -Endometrial echo complex: 0.23 cm -Cervix: normal Right ovary: 2.7 x 2.2 x 1.1 cm. Normal sonographic appearance. There are normal follicular changes. Arterial and venous vascular flow is identified. Left ovary: 6.4 x 5.9 x 5.5 cm. The left ovary is enlarged and contains a unilocular 6.1 x 5.3 x 5.2 cm cystic mass with no internal blood flow. There is some internal debris. Free fluid: No significant free fluid IMPRESSION: Unilocular cystic mass left ovary not significantly changed from CT. This is almost certainly benign and likely represents a hemorrhagic cyst. This can be followed up sonographically as clinically indicated. Senior Project Manager Engineering: SANTOS Transcribe Date/Time: Aug 09 2018 2:46P Dictated by : RONALDO CARR MD This examination was interpreted and the report reviewed and electronically signed by: RONALDO CARR MD on Aug 09 2018 2:52PM EST [id number] Observed: 08/07/2018 Status: COMPLETED Source: [place] 2:30 PM [facility] REPOSITORY HNO ID: [id number] Author: Apryl Harris Ct Service: (none) Author Type: (none) Type: Progress Notes Filed: 08/07/2018 2:31 PM Note Text: Radiology Service Progress Note PATIENT NAME: Vandana Lezama DATE OF SERVICE: August 07, 2018 TIME: 2:31 PM PATIENT IDENTITY VERIFICATION COMPLETED USING TWO (2) METHODS: Patient confirmed name verbally and Date of . PATIENT GENDER DATA: Female. status: : No status: NO. PATIENT RELEVANT IMPLANT DATA REVIEWED: Not Applicable RADIOLOGY DEPARTMENT: CT; Exam(s) Completed: Abdomen/Pelvis PERIPHERAL IV DATA: Not applicable SIGNED BY: Apryl Harris Ct August 07, 2018 2:[address] ABD/PEL WO IVCON Observed: 08/07/2018 Status: F Source: [place] 2:30 PM [facility] REPOSITORY * * *Final Report* * * DATE OF EXAM: Aug 07 2018 2:30PM [facility] 0531 - CT ABD/PEL WO IVCON / PROCEDURE REASON: multiple diagnoses * * * * Physician Interpretation * * * * EXAMINATION: CT ABDOMEN AND PELVIS WITHOUT IV CONTRAST CLINICAL HISTORY: Left lower quadrant pain TECHNIQUE: Non-IV contrast imaging of the abdomen and pelvis was performed using standard technique, scanning from just above the dome of the diaphragm to the symphysis pubis. Unenhanced imaging is limited for the evaluation of some intra-abdominal and pelvic pathology. MQ: CTAPWO_3 Contrast: IV: None Oral: 50 ml of 50ML Omnipaque [address] Radiation dose: Integrated Dose-length product (DLP) for this visit = 658 mGy*cm. CT Dose Reduction Employed: Automated exposure control(AEC) and iterative recon COMPARISON: 09/09/2016 RESULT: Abdomen / Pelvis: Liver: Diffuse decreased attenuation consistent with fatty change. Mild hepatomegaly Biliary: Gallbladder is unremarkable. No ductal dilatation. Spleen: No splenomegaly. Pancreas: Unremarkable. Adrenals: No mass. Kidneys: No calculus, hydronephrosis or finding to suggest a cyst or mass in the unenhanced kidney. GI Tract: No bowel dilation. Total colectomy with right lower quadrant ileostomy. Parastomal herniation of small bowel loops, similar to the prior study. Lymph Nodes: No lymphadenopathy. Mesentery/peritoneum: No ascites. Retroperitoneum: No mass. Vasculature: Mild atherosclerotic change without aneurysm Pelvis: 5 cm smooth bordered cystic lesion lower left pelvis, likely ovarian in origin. No ascites. Bones/Soft Tissues: No acute abnormality. Lower thorax: Unremarkable. IMPRESSION: 5 cm lower left pelvic cystic lesion, likely ovarian in origin. Transvaginal ultrasound is recommended. Mild hepatomegaly with steatosis, not significantly changed Senior Project Manager Engineering: PSC[employer] Transcribe Date/Time: Aug 09 2018 11:14A Dictated by : RANDAL SMITH MD This examination was interpreted and the report reviewed and electronically signed by: RANDAL SMITH MD on Aug 09 2018 11:19AM EST [id number] CA 125 Collected: 08/06/2018 Status: F Source: [place] 4:08 PM [facility] REPOSITORY TYPE CODE TESTS RESULT OUT OF RANGE REFERENCE UNITS LAB CA125 <39 U/mL CA 125 12 Result Comment: CA 125 test methodology used is the Electrochemiluminescence Immunoassay by [employer]. The reference interval is based on the 95th percentile of 240 apparently healthy premenopausal and postmenopausal women. At a cutoff value of 65 U/mL, the test sensitivity to distinguish ovarian carcinoma (FIGO stage I to IV) versus benign gynecological disease is 79%, with a specificity of 82%. Reference: Cancer Antigen 125 (CA 125 II) [package insert V 1.0 German]. [facility], [place], [place] (August 2015) Performed By: #### CA125 #### [facility] [address] [place], [place] [address] CNOV Observed: 08/06/2018 Status: COMPLETED Source: [place] 2:45 PM [facility] REPOSITORY Office Visit (WOOB) VANDANA LEZAMA ([id number]) 1975 F Date Time Provider Department 08/06/18 2:45 PM CYNDIE BORDEN (SREE) WOOB During your visit today, we recorded the following information about you: Blood pressure Weight 120/86 78.6 kg Amaya Montoya Station Tender Student 08/06/2018 5:26 PM Signed Vandana Lezama is a 42 year old female who presents for left lower quadrant pain HPI: Patient states that she has been having constant left lower quadrant pain x6 days which increases in intensity when she lifts her left leg and when she couphs/sneezes. Patient describes the pain as a snapping a guitar string. Pain also increases in intensity when she emptys her bladder. The patient states she takes percocet which does not relieve the presenting pain. Patient denies abnormal vaginal discharge/irritation/pain. 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 Mc, [facility] - Type II or unspecified type diabetes mellitus without mention of complication, not stated as uncontrolled PAST SURGICAL HISTORY Procedure Laterality Date - EPIDURAL multiple ones done by Dr. Beckett, last one in 04/2011 - KNEE SCOPE,DIAGNOSTIC 1989 Arthroscopy, knee, left - OP BRONCHOS DIAG, W/WO WASHING January 2007 Bronchoscopy - PAST SURGICAL HISTORY OF 06/2000 ILEOSTOMY/COLECTOMY - PAST SURGICAL HISTORY OF 1993 CRYOCAUTERY/ MILD DYSPLASIA - PAST SURGICAL HISTORY OF March 2006 Abdominal abscess with anal fistula - PROCTECTOMY,COMPL,COLECTOMY,BX'S 2006 AP endoanal proctectomy - REMOVAL ADENOIDS,PRIMARY,<12 Y/O as child Adenoidectomy - REMOVAL OF TONSILS,<12 Y/O AGE 11 Tonsillectomy FAMILY HISTORY Problem Relation Age of Onset - Alcohol/Drug Mother - Hypertension Mother COPD - other (vascular disease) Mother - Alcohol/Drug Father - Cancer Father liver - Diabetes Maternal Grandmother - Stroke Maternal Grandmother - Heart Maternal Grandmother - Diabetes Paternal Grandfather - Emphysema Paternal Grandmother Social History Marital status: Spouse name: Carin Years of education: 12 Number of children: 1 Occupational History Occupation Employer Comment disability Social History Main Topics Smoking status: Former Smoker Packs/day: 1.00 Years: 16.00 Types: Cigarettes Quit date: 12/04/2006 Smokeless tobacco: Never Used Alcohol use: No Drug use: No Sexual activity: Not Currently Partners with: Male control/protection: Spermicide, Inserts Comment: nuvaring Current Outpatient Prescriptions: blood sugar diagnostic (BLOOD GLUCOSE TEST) test strip Test blood sugar(s) 2 times daily. Dx: Type 2 DM - Controlled E11.9 Insulin: No, Accu-check brand covered by insurance Lancets (ACCU-CHEK MULTICLIX LANCET) lancets Test blood sugar(s) 2 times daily. Dx: Type 2 DM - Controlled E11.9 Insulin: No Blood-Glucose Meter, Drum-type (ACCU-CHEK COMPACT PLUS CARE) kit Accu-Check Compact Plus Meter Diagnosis: Type 2 DM - Controlled E11.9 (Patient not taking: Reported on 06/26/2018 ) pregabalin (LYRICA) 150 mg capsule Take 1 capsule by mouth three times daily for 90 days. metFORMIN (GLUCOPHAGE) 1,000 mg tablet Take 1 tablet by mouth twice daily. ranitidine (ZANTAC) 150 mg tablet Take 1 tablet by mouth twice daily as needed. cetirizine (ZYRTEC) 10 mg tablet Take 1 tablet by mouth once daily. SUMAtriptan (IMITREX) 50 mg tablet Take one(1) tablet daily as needed, at headache onset. Repeat in two(2) hours if needed. insulin glargine (LANTUS SOLOSTAR U-100 INSULIN) 100 unit/mL (3 mL) inpn Inject 45 units daily at bedtime. Increase to 60 units daily at bedtime as directed for high sugars sitaGLIPtin (JANUVIA) 50 mg tablet Take 1 tablet by mouth once daily. Insulin [place], Disposable, (BD ULTRA-FINE DIANNE PEN NEEDLE) 32 gauge x 5/32 ndle Use once a day ammonium lactate (LAC-HYDRIN) 12 % cream Apply 1-2x a day for dry areas acidophilus-pectin, citrus (ACIDOPHILUS PROBIOTIC) 100 million cell-10 mg cap Take 1 cap daily Blood-Glucose Meter (ONETOUCH VERIO IQ METER) monitoring kit 1 Each as needed. to check blood sugars. (Patient not taking: Reported on 06/26/2018 ) Cholecalciferol, Vitamin D3, 2,000 unit cap Take 1 capsule by mouth once daily. COMPOUNDED PRESCRIPTION 1. V44.2 Ileostomy status (HCC) (primary diagnosis)2. 555.1 Regional enteritis of large intestine (HCC)Ileostomy Supplies. 1. Pouches, 2. Planges, 3. Felipe seals, 4. Stoma adhesive, 5. Stoma powder, 6. Skin preps, 7. Adhesive remover wipes. Dispense 1 year supplies. oxyCODONE-acetaminophen (PERCOCET) 5-325 mg tablet Take 1 tablet by mouth every 8 hours as needed. tizanidine (ZANAFLEX) 4 mg ORAL tablet Take by mouth. . Takes 1 tablet at bedtime. COMPOUNDED PRESCRIPTION CAVILON no-sting barrier film. Prod# [id number] made by [employer] No current facility-administered medications for this visit. Allergies As of Date: 08/06/2018 Allergen Noted Reaction DILAUDID [HYDROMORPHONE (BULK)] 08/07/2006 Swelling LEVEMIR [INSULIN DETEMIR] 02/17/2014 Other: See Comments METHADONE 11/04/2013 Swelling MORPHINE 08/07/2006 Swelling REMICADE [INFLIXIMAB] 08/08/2006 Intolerance ULTRAM [TRAMADOL HCL] 04/07/2009 Swelling Fully Assessed 06/26/2018 REVIEW OF SYSTEMS Abdomen: No bloating, early satiety, indigestion, or increased flatulence. Constant left lower quadrant pain present. Bladder: No dysuria, gross hematuria, urinary frequency, urinary urgency, or incontinence. Breast: deferred Expanded ROS: N/A Allergies and current medication updated:Yes EXAM: BP 120/86 Wt 173 lb 3.2 oz (78.6kg) GENERAL: pleasant and in pain, female in mild distress HEENT: Normocephalic, atraumatic, mucus membranes moist and no lesions NECK: Supple, full range of motion, no adenopathy and thyroid normal DERMATOLOGY: Rash present on face and chest, skin is without lesions, non-hirsute, and is warm. BREAST: deferred CHEST: Normal inspiratory effort ABDOMEN: soft, mobile, tender almond sized mass noted left mid quadrant which elicited pain upon palpation, Moderate tenderness in LUQ, LLQ and guarding present PELVIC: external genitalia normal, normal Bartholin's glands, urethra, [place]'s glands, no vulvar lesions, no cervical lesions, physiologic discharge present, normal appearing perineal body and perianal region, erythema noted in the posterior thigh folds-most consistent with contact dermatitis BIMANUAL: no cervical motion tenderness and Mild tenderness with midline and lower left quadrant palpation NEURO: alert and oriented x3,exam grossly non-focal EXTREMITIES: normal ASSESSMENT AND PLAN: Encounter Diagnosis ICD-10-CM 1. LLQ pain R10.[address] ABD/PEL WO IVCON CANCELED: PELVIC US WHI 2. Left lower quadrant abdominal swelling, mass and lump R19.04 CT ABD/PEL WO IVCON DDX; Fibroid, left ovarian cyst, malignant abd/pelvic mass, abd. wall hernia, appendicitis (not anticipated) 1. Abd/pelvic CT ordered 2. CA 125 blood work ordered - will contact patient with results 3. Pain relief measures reviewed 4. Follow up with annual and mammogram as scheduled or PRN Amaya Montoya Apn Student I was present during the exam and agree with the assessment and plan of care for this patient. Cyndie Borden APRN.SREE Referring Provider: SELF [[id number]] Allergies As of Date: 08/06/2018 Noted Allergy Reaction DILAUDID (HYDROMORPHONE (BULK)) 08/07/2006 7 - Swelling Comments: migraines LEVEMIR (INSULIN DETEMIR) 02/17/2014 14 - Other: See Comments Comments: Urine turned dark and smelly METHADONE 11/04/2013 7 - Swelling Comments: migraine MORPHINE 08/07/2006 7 - Swelling Comments: migraines REMICADE (INFLIXIMAB) 08/08/2006 5 - Intolerance Comments: broke out in blisters with the 6th dose. ULTRAM (TRAMADOL HCL) 04/07/2009 7 - Swelling Comments: migraines Date Reviewed: 08/06/2018 Reviewed by: Cyndie Borden - Fully Assessed Primary Visit Diagnosis:LLQ pain [R10.32] Other Visit Diagnosis:Left lower quadrant abdominal swelling, mass and lump [R19.04] Order(s):CA 125 BLD [[id number]] Order #: [id number] FUTURE CT ABD/PEL WO IVCON [[id number]] Order #: [id number] FUTURE Prescriptions as of 08/06/2018 Sig: BLOOD SUGAR DIAGNOSTIC STRIPS Test blood sugar(s) 2 times d* LANCETS Test blood sugar(s) 2 times d* BLOOD-GLUCOSE METER, DRUM-TYP* Accu-Check Compact Plus Meter* Patient not taking: Reported on 06/26/2018 PREGABALIN 150 MG CAPSULE Take 1 capsule by mouth three* METFORMIN 1,000 MG TABLET Take 1 tablet by mouth twice * RANITIDINE 150 MG TABLET Take 1 tablet by mouth twice * CETIRIZINE 10 MG TABLET Take 1 tablet by mouth once d* SUMATRIPTAN 50 MG TABLET Take one(1) tablet daily as n* INSULIN GLARGINE (U-100) 100 * Inject 45 units daily at bedt* SITAGLIPTIN 50 MG TABLET Take 1 tablet by mouth once d* PEN NEEDLE, DIABETIC 32 GAUGE* Use once a day AMMONIUM LACTATE 12 % TOPICAL* Apply 1-2x a day for dry areas ACIDOPHILUS 100 MILLION CELL-* Take 1 cap daily BLOOD-GLUCOSE METER KIT 1 Each as needed. to check bl* Patient not taking: Reported on 06/26/2018 CHOLECALCIFEROL (VITAMIN D3) * Take 1 capsule by mouth once * COMPOUNDED PRESCRIPTION 1. V44.2 Ileostomy status (HC* OXYCODONE-ACETAMINOPHEN 5 MG-* Take 1 tablet by mouth every * TIZANIDINE 4 MG TABLET Take by mouth. . Takes 1 ta* COMPOUNDED PRESCRIPTION CAVILON no-sting barrier film* Problem List As Of Date 08/06/2018 Noted Resolved REG ENTERITIS, LG INTEST [K50.10] INVALID FOR* RETENTION OF URINE UNSPEC [R33.9] INVALID FOR* Mixed hyperlipidemia [E78.2] INVALID FOR* Anemia, unspecified [D64.9] INVALID FOR*03/08/2012 LUMBAGO [M54.5] INVALID FOR* Nonspecific abnormal results of liver function *INVALID FOR*04/19/2011 More... Onychia and paronychia of toe [L03.039] INVALID FOR*02/18/2013 ILEOSTOMY STATUS [Z93.2] INVALID FOR* IMPAIRED GLUCOSE JUNE TEST [R73.02] INVALID FOR*04/16/2008 Insulin-requiring or dependent type II diabetes*INVALID FOR* Fibromyalgia [M79.7] INVALID FOR* More... Non-alcoholic fatty liver disease [K76.0] INVALID FOR* Mild dysplasia of cervix [N87.0] INVALID FOR*03/08/2012 Fibromyalgia [M79.7] 04/19/2011 Depression [F32.9] INVALID FOR* Eczematous dermatitis: hands [L30.9] INVALID FOR*02/18/2013 Xerosis cutis [L85.3] INVALID FOR*02/18/2013 Atopic eczema [L20.9] INVALID FOR* Other psoriasis [L40.8] INVALID FOR* Contact dermatitis and other eczema, due to uns*INVALID FOR*01/03/2017 Hypoglycemia [E16.2] INVALID FOR*03/08/2012 Migraine headache without aura [G43.009] INVALID FOR* Recurrent cold sores [B00.1] INVALID FOR* Sprain of wrist, left [S63.502A] INVALID FOR*05/24/2018 Vitamin B12 deficiency [E53.8] INVALID FOR* Chronic rhinitis [J31.0] INVALID FOR* 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 Follow-up and Disposition History Recorded Encounter Status:Closed by CYNDIE BORDEN CNM on 08/06/18 PROGRESS Observed: 08/06/2018 Status: COMPLETED Source: [place] 2:39 PM [facility] REPOSITORY O ID: [id number] Author: Amaya Montoya Apn Student Service: (none) Author Type: (none) Type: Progress Notes Filed: 08/06/2018 5:26 PM Note Text: Vandana Lezama is a 42 year old female who presents for left lower quadrant pain HPI: Patient states that she has been having constant left lower quadrant pain x6 days which increases in intensity when she lifts her left leg and when she couphs/sneezes. Patient describes the pain as a snapping a guitar string. Pain also increases in intensity when she emptys her bladder. The patient states she takes percocet which does not relieve the presenting pain. Patient denies abnormal vaginal discharge/irritation/pain. 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 Mc, [facility] - Type II or unspecified type diabetes mellitus without mention of complication, not stated as uncontrolled PAST SURGICAL HISTORY Procedure Laterality Date - EPIDURAL multiple ones done by Dr. Beckett, last one in 04/2011 - KNEE SCOPE,DIAGNOSTIC 1989 Arthroscopy, knee, left - OP BRONCHOS DIAG, W/WO WASHING January 2007 Bronchoscopy - PAST SURGICAL HISTORY OF 06/2000 ILEOSTOMY/COLECTOMY - PAST SURGICAL HISTORY OF 1993 CRYOCAUTERY/ MILD DYSPLASIA - PAST SURGICAL HISTORY OF March 2006 Abdominal abscess with anal fistula - PROCTECTOMY,COMPL,COLECTOMY,BX'S 2006 AP endoanal proctectomy - REMOVAL ADENOIDS,PRIMARY,<12 Y/O as child Adenoidectomy - REMOVAL OF TONSILS,<12 Y/O AGE 11 Tonsillectomy FAMILY HISTORY Problem Relation Age of Onset - Alcohol/Drug Mother - Hypertension Mother COPD - other (vascular disease) Mother - Alcohol/Drug Father - Cancer Father liver - Diabetes Maternal Grandmother - Stroke Maternal Grandmother - Heart Maternal Grandmother - Diabetes Paternal Grandfather - Emphysema Paternal Grandmother Social History Marital status: Spouse name: Carin Years of education: 12 Number of children: 1 Occupational History Occupation Employer Comment disability Social History Main Topics Smoking status: Former Smoker Packs/day: 1.00 Years: 16.00 Types: Cigarettes Quit date: 12/04/2006 Smokeless tobacco: Never Used Alcohol use: No Drug use: No Sexual activity: Not Currently Partners with: Male control/protection: Spermicide, Inserts Comment: nuvaring Current Outpatient Prescriptions: blood sugar diagnostic (BLOOD GLUCOSE TEST) test strip Test blood sugar(s) 2 times daily. Dx: Type 2 DM - Controlled E11.9 Insulin: No, Accu-check brand covered by insurance Lancets (ACCU-CHEK MULTICLIX LANCET) lancets Test blood sugar(s) 2 times daily. Dx: Type 2 DM - Controlled E11.9 Insulin: No Blood-Glucose Meter, Drum-type (ACCU-CHEK COMPACT PLUS CARE) kit Accu-Check Compact Plus Meter Diagnosis: Type 2 DM - Controlled E11.9 (Patient not taking: Reported on 06/26/2018 ) pregabalin (LYRICA) 150 mg capsule Take 1 capsule by mouth three times daily for 90 days. metFORMIN (GLUCOPHAGE) 1,000 mg tablet Take 1 tablet by mouth twice daily. ranitidine (ZANTAC) 150 mg tablet Take 1 tablet by mouth twice daily as needed. cetirizine (ZYRTEC) 10 mg tablet Take 1 tablet by mouth once daily. SUMAtriptan (IMITREX) 50 mg tablet Take one(1) tablet daily as needed, at headache onset. Repeat in two(2) hours if needed. insulin glargine (LANTUS SOLOSTAR U-100 INSULIN) 100 unit/mL (3 mL) inpn Inject 45 units daily at bedtime. Increase to 60 units daily at bedtime as directed for high sugars sitaGLIPtin (JANUVIA) 50 mg tablet Take 1 tablet by mouth once daily. Insulin [place], Disposable, (BD ULTRA-FINE DIANNE PEN NEEDLE) 32 gauge x 5/32 ndle Use once a day ammonium lactate (LAC-HYDRIN) 12 % cream Apply 1-2x a day for dry areas acidophilus-pectin, citrus (ACIDOPHILUS PROBIOTIC) 100 million cell-10 mg cap Take 1 cap daily Blood-Glucose Meter (ONETOUCH VERIO IQ METER) monitoring kit 1 Each as needed. to check blood sugars. (Patient not taking: Reported on 06/26/2018 ) Cholecalciferol, Vitamin D3, 2,000 unit cap Take 1 capsule by mouth once daily. COMPOUNDED PRESCRIPTION 1. V44.2 Ileostomy status (HCC) (primary diagnosis)2. 555.1 Regional enteritis of large intestine ([facility])Ileostomy Supplies. 1. Pouches, 2. Planges, 3. Felipe seals, 4. Stoma adhesive, 5. Stoma powder, 6. Skin preps, 7. Adhesive remover wipes. Dispense 1 year supplies. oxyCODONE-acetaminophen (PERCOCET) 5-325 mg tablet Take 1 tablet by mouth every 8 hours as needed. tizanidine (ZANAFLEX) 4 mg ORAL tablet Take by mouth. . Takes 1 tablet at bedtime. COMPOUNDED PRESCRIPTION CAVILON no-sting barrier film. Prod# [id number] made by [employer] No current facility-administered medications for this visit. Allergies As of Date: 08/06/2018 Allergen Noted Reaction DILAUDID [HYDROMORPHONE (BULK)] 08/07/2006 Swelling LEVEMIR [INSULIN DETEMIR] 02/17/2014 Other: See Comments METHADONE 11/04/2013 Swelling MORPHINE 08/07/2006 Swelling REMICADE [INFLIXIMAB] 08/08/2006 Intolerance ULTRAM [TRAMADOL HCL] 04/07/2009 Swelling Fully Assessed 06/26/2018 REVIEW OF SYSTEMS Abdomen: No bloating, early satiety, indigestion, or increased flatulence. Constant left lower quadrant pain present. Bladder: No dysuria, gross hematuria, urinary frequency, urinary urgency, or incontinence. Breast: deferred Expanded ROS: N/A Allergies and current medication updated:Yes EXAM: BP 120/86 Wt 173 lb 3.2 oz (78.6kg) GENERAL: pleasant and in pain, female in mild distress HEENT: Normocephalic, atraumatic, mucus membranes moist and no lesions NECK: Supple, full range of motion, no adenopathy and thyroid normal DERMATOLOGY: Rash present on face and chest, skin is without lesions, non-hirsute, and is warm. BREAST: deferred CHEST: Normal inspiratory effort ABDOMEN: soft, mobile, tender almond sized mass noted left mid quadrant which elicited pain upon palpation, Moderate tenderness in LUQ, LLQ and guarding present PELVIC: external genitalia normal, normal Bartholin's glands, urethra, [place]'s glands, no vulvar lesions, no cervical lesions, physiologic discharge present, normal appearing perineal body and perianal region, erythema noted in the posterior thigh folds-most consistent with contact dermatitis BIMANUAL: no cervical motion tenderness and Mild tenderness with midline and lower left quadrant palpation NEURO: alert and oriented x3,exam grossly non-focal EXTREMITIES: normal ASSESSMENT AND PLAN: Encounter Diagnosis ICD-10-CM 1. LLQ pain R10.[address] ABD/PEL WO IVCON CANCELED: PELVIC US WHI 2. Left lower quadrant abdominal swelling, mass and lump R19.04 CT ABD/PEL WO IVCON DDX; Fibroid, left ovarian cyst, malignant abd/pelvic mass, abd. wall hernia, appendicitis (not anticipated) 1. Abd/pelvic CT ordered 2. CA 125 blood work ordered - will contact patient with results 3. Pain relief measures reviewed 4. Follow up with annual and mammogram as scheduled or PRN Amaya Montoya Apn Student I was present during the exam and agree with the assessment and plan of care for this patient. Cyndie Borden APRN.CNM INITAL EVALUATION (1) Observed: 07/04/2018 Status: F Source: [place] - PT 11:02 AM [facility] REPOSITORY [facility] Physical Therapy [facility] [place] [address] Fax REHABILITATION SERVICES INITIAL EVALUATION MR#: [id number] Acct: [id number] Name: VANDANA LEZAMA Rep #: [id number] : 1975 42 From: Rosalio Mishra DPT Referring Dr.: Lara Reeder DO Status: REG RCR Insurance: [employer] MEDICARE O [facility]IN NETWORK Patient's Visit Information VANDANA LEZAMA is a 42 year old F referred to Physical Therapy by Lara Reeder DO with a diagnosis of R knee pain, chondramalacia, OA. Date of Evaluation: 07/04/18 Physical Therapist: Rosalio Mishra - Visit Plan Frequency: 2x /Week Duration: 4 Weeks Plan: Start with HS stretching, quad/HS/glute med strengthening in pain free ranges. Progress to HEP as tolerated. - Subjective Subjective: Pt. is here today for her initial evaluation with diagnosis of R knee chondromalaysia. Pt. reports having pain for 1 year after standing on a plane and her knee gave out. Pt. reprots having intermittent pain ever since. Pt. reports having chronic pain with bowel issues. Pt. has been taking oral steroids since. Increased pain: standing, walking, twisting, stairs and kneeling. Decreases pain: Cross legged positioning. Pt. reports cracking and popping alot. Pt. reports having to take after her who sounds like he has high level of pain with all mobility. Pt. is hopeful to reduce symptoms with HEP allowing increased tolerance to all functional mobility. Pt. did talk wt physician about potential injections, but physician wanted her to trial PT first. Pt. 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 - Pain R knee pain Pain Intensity (Out of 10): 1 Pain Intensity Range: 7 Comment: when getting up from kneeling - Objective POSTURE: Pt. has general flexed posture. Pt. has wide ANGEL. Pt. has sight bilateral knee valgus and tibial IR. PALPATION: Pt. has increased tenderness along medial aspect joint line. Pt. has increased tenderness along popliteal fossa as well. NEUROLOGICAL: Pt. reports slight reduction in sensation at lateral knee, but rest in normal Pt. has 2+ bilateral achilles and patellar DTR. Pt. is able to rise on heels and toes without increase in symptoms. ROM: L knee 0-0-134deg No pain. R knee 0-0-125deg increased pain with knee flexion, worse with over pressure. Pt. has decreased B hip ROM secondary to pain. Pt. has tight B HS as well. Crepitus noted throughout knee ROM, grestest and TKE and end range flexion. MMT: RLE- ankle 5/5 throughout; knee- ext 4/5, flexion 4/5; hip- flexion 4/5 increase NW, abd 4/5 increase NW hip, ext 4/5 increase NW hip. LLE- ankle/knee 5/5 throughout; hip- flexion 4/5 increase hip pain, abd 4/5 increase hip pain. Core strength- poor. GAIT: Pt. has increased difficulty with getting up and with first few steps. Pt. has improved pattern after initial steps, but still has decreased step length bilaterally, increased lateral hip sway, increased pain noted. STAIRS: Pt. uses BHR with step to pattern, loading LLE only. - Special Tests R Knee Anterior Drawer - ACL: Negative R Knee Pivot Shift - ACL, Ant. Rotator Instability: Negative R Knee Posterior Drawer - PCL: Negative R Knee Valgus - MCL: Negative R Knee Varus - LCL: Negative R Knee Patellar Grind - PFS: Positive - Goals Goal 1:: Pt. to be I with HEP. Goal Time Frame: 4-6 Weeks Goal 2:: Pt. to have increased R knee ROM to 0-0-130deg without increase in symptoms. Goal Time Frame: 4-6 Weeks Goal 3:: Pt. to have increased RLE and core strength increased by 1/2 grade of all effected musculature to reduce stress applied R knee with all functional mobility. Goal 4:: Pt. to have reduced pain with all walking/standing/ADLs to 0-2/10 pain in R knee. Goal Time Frame: 4-6 Weeks - Rehabilitation Potential Physical Therapy Diagnosis: Pt. has signs and symptoms consistent with R knee pain. Pt. has decreased knee flexion with increased pain, RLE weakness and increased pain with all functional mobility. Pt. would benefit from PT to increase quad/HS strength, increase glute med strength, decrease symptoms and increased hip/knee mobility in pain free ranges. Rehabilitation Potential: Good - Anticipated Interventions Patient/Client Instruction: Educate patient on: Condition, Plan of Care, Risk Factors, Benefits of Fitness Program For the Purpose of:: To improve safety, To improve health and function, To foster healthy habits, To improve decision making, To facilitate caregiver knowledge, To improve self management, To prevent re-injury, To improve ability to perform tasks related to life management, To improve tolerance to ADL's Therapeutic Exercise to Include: Strength training, Power training, Endurance training, Postural training, Flexibilty training, Gait and locomotor training, Passive ROM, Active ROM, Dynamic Lumbar Stabilization For the Purpose of:: To decrease pain, To increase ROM, To improve nutrient delivery to tissue, To increase oxygenation perfusion, To improve muscle performance and motor function, To improve ability to perform ADL's, To improve gait and locomotor functions, To improve health of tissue, To decrease soft tissue restriction, To increase flexibility/ROM Manual Therapy Techniques to Include: Mobilization, Functional dry needling, Soft tissue mobilization For the Purpose of:: To decrease pain, To decrease swelling/inflammation, To increase ROM, To improve nutrient delivery to tissue Cryotherapy (ice pack, ice massage): Yes Ultrasound (thermal/non thermal): Yes For the Purpose of:: To decrease pain, To decrease swelling/inflammation, To increase ROM, To improve nutrient delivery to tissue, To decrease soft tissue restriction Thank you for the opportunity to evaluate your patient. For Medicare and Medicare HMO plans, please review the plan of care and approve it. It will need to be FAXED BACK to us at [phone] for Medicare purposes. Please let me know if there are questions or concerns regarding this plan of care. Physician Signature: Date: <Electronically signed by Rosalio Mishra DPT> 07/04/18 1102 CC: Lara Reeder DO; Grayson Phan MD CLS Signed For Medicare only, by signing this I certify the plan of care. Physicians Signature Date ORTHOPEDIC VISIT Observed: 06/28/2018 Status: F Source: [place] REPORT 2:48 PM [facility] REPOSITORY [facility] Orthopaedics AND Sports Medicine [address] [place] [id number] OFFICE VISIT Date of Service: 06/28/18 MR#: [id number] Acct: [id number] Name: VANDANA LEZAMA Rep #: [id number] : 1975 Provider: Lara Reeder DO Age/Sex: 42/F [place] [facility] [place]: Signed Intake Intake Visit Reasons: RIGHT KNEE PAIN Allergies morphine Allergy (Verified 06/28/18 13:27) Swelling Medications Metformin HCl [Glucophage] 1,000 mg PO BIDCM 03/06/17 [History Confirmed 06/28/18] Ranitidine [Zantac] 150 mg PO BID PRN 03/06/17 [History Confirmed 06/28/18] Sitagliptin Phosphate [Januvia] 100 mg PO DAILY 03/06/17 [History Confirmed 06/28/18] Tizanidine HCl [Zanaflex] 1 - 2 tab PO DAILY PRN 03/06/17 [History Confirmed 06/28/18] proMETHazine tablet [Phenergan] 25 mg PO Q6H PRN PRN #20 tab 03/06/17 [Rx Confirmed 06/28/18] oxycodone-acetaminophen 5 mg-325 mg tablet 1 tab PO ONCE 06/28/18 [History Confirmed 06/28/18] PFSH Social History Smoking Status: Never smoker HPI RIGHT KNEE PAIN: Details: VANDANA LEZAMA is a 42 year old F here today for a followup on her right knee. She states that her pain comes and goes. She notes she has to be aware of how she walks because if she steps wrong she has popping and clicking. Patient has pain over the center of her knee. She describes her pain as a nerve grind pain. Patient has a knee brace which she has been wearing over the last week because it feels better. She denies any physical therapy for her knee. Patient denies any knee injections. Denies numbness, tingling or other associated symptoms. ROS Const Reports system reviewed and no additional complaints, except as docu Eyes Reports system reviewed and no additional complaints, except as docu ENT Reports system reviewed and no additional complaints, except as docu Card Reports system reviewed and no additional complaints, except as docu Resp Reports system reviewed and no additional complaints, except as docu GI Reports system reviewed and no additional complaints, except as docu Reports system reviewed and no additional complaints, except as docu Skin/Breast Reports system reviewed and no additional complaints, except as docu Neuro Yes system reviewed and no additional complaints, except as docu Psych Reports system reviewed and no additional complaints, except as docu Endo Reports system reviewed and no additional complaints, except as docu Ortho Exam Right Knee Skin/Wound: Yes CDI Contralateral Normal: Yes Swelling: No Knee ROM: Yes ROM-Extension -20 to 0, Yes ROM-Flexion 0-140 Examination: Yes Med jt line tenderness, Yes Pain with flexion, Yes Crepitus Assessment AND Plan 1. Chondromalacia, right knee M94.261 Plan Reviewed the brace use, discussed a steroid injection or PT. Patient will return when her pain is greater, gave a PT script today with HEP. Follow up as needed or sooner if pain, swelling, numbness or associated symptoms, or concerns develop. All questions answered. Patient in agreement of plan. Coding Level of Care Code Off vis,est,level 3 Diagnoses Chondromalacia, right knee M94.261 06/28/18 1448 <Electronically signed by Lara Reeder DO> Date Lara Reeder DO Cosigner Signature: Date (if applicable) CC: PROGRESS Observed: 06/26/2018 Status: COMPLETED Source: [place] 11:08 AM [facility] REPOSITORY O ID: [id number] Author: Patricio Painter Service: (none) Author Type: Physician Type: Progress Notes Filed: 06/26/2018 11:12 AM Note Text: ASSESSMENT/PLAN: 1. 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, with long- term current use of insulin (HCC) - ICD9: 250.50, 362.04, V58.67, ICD10: E11.3293, Z79.4 (primary diagnosis) - FUNDUS PHOTOS OU (BOTH EYES) Please keep your blood sugar under good control to minimize risk of ocular complications from diabetes. Patient educated on the importance of having regular diabetic check ups 2. Nuclear sclerosis of both eyes - ICD9: 366.16, ICD10: H25.13 Cataracts are not visually significant both eeys 3. Vitreous floaters of both eyes - ICD9: 379.24, ICD10: H43.393 Patient was instructed to call the office ([phone]) immediately upon noticing flashes of light, increase in floaters, or changes in vision. Patricio Painter MD I have confirmed and edited as necessary the relevant ophthalmic history, review of systems, surgical history, and ophthalmological examination findings as obtained by the ophthalmic technical staff. I have seen and examined Vandana Lezama. I have discussed the examination findings, diagnosis, and treatment options with Vandana Lezama and/or her family. I have also reviewed and agree with the assessment and plan as stated above and agree with all its relevant components. I gave the patient the opportunity to ask questions about the findings, diagnosis, and treatment options. CNPN Observed: 06/13/2018 Status: COMPLETED Source: [place] 12:00 AM [facility] REPOSITORY Telephone (ENDOMN) VANDANA LEZAMA ([id number]) 1975 F Date Time Provider Department 06/13/18 SOPHY HARRISON During your visit today, we recorded the following information about you: Sophy Harrison MD 06/13/2018 8:17 AM Signed Received letter from Dr. Michelle Stern [place], [place] Steroids to minimize opioid use I called office to speak w him. Nurse was there. I asked about anesthetic injection instead of steroids as BG goes high Dr. Stern to call me back I also sent [employer] message to patient Allergies As of Date: 06/13/2018 Noted Allergy Reaction DILAUDID (HYDROMORPHONE (BULK)) 08/07/2006 7 - Swelling Comments: migraines LEVEMIR (INSULIN DETEMIR) 02/17/2014 14 - Other: See Comments Comments: Urine turned dark and smelly METHADONE 11/04/2013 7 - Swelling Comments: migraine MORPHINE 08/07/2006 7 - Swelling Comments: migraines REMICADE (INFLIXIMAB) 08/08/2006 5 - Intolerance Comments: broke out in blisters with the 6th dose. ULTRAM (TRAMADOL HCL) 04/07/2009 7 - Swelling Comments: migraines Date Reviewed: 06/11/2018 Reviewed by: Roshni (Rn) GUILLERMINA Godinez - Fully Assessed Reason for Visit: Clinical Update [1735] Cmt: from pain mgmt MD Prescriptions as of 06/13/2018 Sig: CEPHALEXIN 500 MG CAPSULE Take 1 capsule by mouth four * BLOOD-GLUCOSE METER, DRUM-TYP* Accu-Check Compact Plus Meter* BLOOD SUGAR DIAGNOSTIC STRIPS Test blood sugar(s) 2 times d* LANCETS Test blood sugar(s) 2 times d* CICLOPIROX 0.77 % TOPICAL CRE* Apply 1 application to affect* JANUVIA 50 MG TABLET take 1 tablet by mouth once d* PREGABALIN 150 MG CAPSULE Take 1 capsule by mouth three* AMMONIUM LACTATE 12 % TOPICAL* Apply 1-2x a day for dry areas INSULIN GLARGINE (U-100) 100 * Inject 45 units and titrate t* ACIDOPHILUS 100 MILLION CELL-* Take 1 cap daily METFORMIN 1,000 MG TABLET Take 1 tablet by mouth twice * BLOOD-GLUCOSE METER KIT 1 Each as needed. to check bl* RANITIDINE 150 MG TABLET take 1 tablet by mouth twice * CETIRIZINE 10 MG TABLET Take 1 tablet by mouth once d* CHOLECALCIFEROL (VITAMIN D3) * Take 1 capsule by mouth once * PEN NEEDLE, DIABETIC 31 GAUGE* Use once a day SUMATRIPTAN 50 MG TABLET Take one(1) tablet daily as n* COMPOUNDED PRESCRIPTION 1. V44.2 Ileostomy status (HC* OXYCODONE-ACETAMINOPHEN 5 MG-* Take 1 tablet by mouth every * TIZANIDINE 4 MG TABLET Take by mouth. . Takes 1 ta* COMPOUNDED PRESCRIPTION CAVILON no-sting barrier film* Problem List As Of Date 06/13/2018 Noted Resolved REG ENTERITIS, LG INTEST [K50.10] INVALID FOR* RETENTION OF URINE UNSPEC [R33.9] INVALID FOR* Mixed hyperlipidemia [E78.2] INVALID FOR* Anemia, unspecified [D64.9] INVALID FOR*03/08/2012 LUMBAGO [M54.5] INVALID FOR* Nonspecific abnormal results of liver function *INVALID FOR*04/19/2011 More... Onychia and paronychia of toe [L03.039] INVALID FOR*02/18/2013 ILEOSTOMY STATUS [Z93.2] INVALID FOR* IMPAIRED GLUCOSE JUNE TEST [R73.02] INVALID FOR*04/16/2008 Insulin-requiring or dependent type II diabetes*INVALID FOR* Fibromyalgia [M79.7] INVALID FOR* More... Non-alcoholic fatty liver disease [K76.0] INVALID FOR* Mild dysplasia of cervix [N87.0] INVALID FOR*03/08/2012 Fibromyalgia [M79.7] 04/19/2011 Depression [F32.9] INVALID FOR* Eczematous dermatitis: hands [L30.9] INVALID FOR*02/18/2013 Xerosis cutis [L85.3] INVALID FOR*02/18/2013 Atopic eczema [L20.9] INVALID FOR* Other psoriasis [L40.8] INVALID FOR* Contact dermatitis and other eczema, due to uns*INVALID FOR*01/03/2017 Hypoglycemia [E16.2] INVALID FOR*03/08/2012 Migraine headache without aura [G43.009] INVALID FOR* Recurrent cold sores [B00.1] INVALID FOR* Sprain of wrist, left [S63.502A] INVALID FOR*05/24/2018 Vitamin B12 deficiency [E53.8] INVALID FOR* Chronic rhinitis [J31.0] INVALID FOR* Letter Text Endocrinology, Diabetes and Metabolism [address] [place] [address] Temi Harrison M.D., M.P.H. cigarette machines mechanic at [facility] Director, Inpatient Diabetes Service Office: Appointments: June 13, 2018 Dr. Michelle Stern [address] [place] [address], [facility] [address] [phone] Re: Vandana Lezama [address] Stern, I truly appreciate your writing to me your concerns about Ms. Vandana Lezama. I called and spoke with your nurse to ask if you think anesthetic injections without the steroid might be effective enough for Ms. Lezama. She is aware that we are both trying our best for her. If there is no other recourse but to give her steroids, please let me or her know and I will need to give her an alternate plan for her diabetes medications for those days. Please do not hesitate to contact me if you have questions. Sincerely, Temi Harrison M.D., M.P.H. (Signed electronically to expedite mailing) Encounter Status:Closed by MONY HARRISON MD on 06/13/18 ED NOTE Observed: 06/11/2018 Status: COMPLETED Source: [place] 9:01 PM [facility] REPOSITORY HNO ID: [id number] Author: Josue ChapinRn) GUILLERMINA Curiel Service: Emergency Medicine Author Type: Registered Nurse Type: ED Notes Filed: 06/12/2018 9:36 AM Note Text: Patient Call Back Information ? How are you doing ? better ? Did we appropriately manage your pain? Yes ? Did you understand your discharge instructions? Yes ? Did you get your prescriptions filled? Yes ? Were you able to make a follow-up appointment with your physician? Yes ? Were you comfortable during your stay here? Yes ? Did a member of the ER nursing team round on you during your visit? Yes ? You will receive a patient satisfaction survey in the mail in the nest 2 weeks, please take the time to fill out the survey as your input from your ER visit is very important to us. Yes ? Can we do anything else to help you? No ED PROV NOTE Observed: 06/11/2018 Status: COMPLETED Source: [place] 8:27 PM [facility] REPOSITORY HNO ID: [id number] Author: Sandro Groves DO Service: Emergency Medicine Author Type: Physician Type: ED Provider Notes Filed: 06/11/2018 8:31 PM Note Text: ED Provider Note Patient Name: Vandana Lezama SERVICE DATE: 06/11/18 History Patient presents with: Thumb Injury Patient presents with a crushing injury to her left thumb that occurred today. Patient states she was putting a roof on a chicken coop when she hit her thumb with a hammer. Patient states the pain is worse over the distal phalanx of the left thumb. Patient denies any paresthesias or weakness. Patient states her last tetanus was more than 10 years ago. 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 Mc, [facility] - Type II or unspecified type diabetes mellitus without mention of complication, not stated as uncontrolled PAST SURGICAL HISTORY Procedure Laterality Date - EPIDURAL multiple ones done by Dr. Beckett, last one in 04/2011 - KNEE SCOPE,DIAGNOSTIC 1989 Arthroscopy, knee, left - OP BRONCHOS DIAG, W/WO WASHING January 2007 Bronchoscopy - PAST SURGICAL HISTORY OF 06/2000 ILEOSTOMY/COLECTOMY - PAST SURGICAL HISTORY OF 1993 CRYOCAUTERY/ MILD DYSPLASIA - PAST SURGICAL HISTORY OF March 2006 Abdominal abscess with anal fistula - PROCTECTOMY,COMPL,COLECTOMY,BX'S 2006 AP endoanal proctectomy - REMOVAL ADENOIDS,PRIMARY,<12 Y/O as child Adenoidectomy - REMOVAL OF TONSILS,<12 Y/O AGE 11 Tonsillectomy FAMILY HISTORY Problem Relation Age of Onset - Alcohol/Drug Mother - Hypertension Mother COPD - vascular disease [OTHER] Mother - Alcohol/Drug Father - Cancer Father liver - Diabetes Maternal Grandmother - Stroke Maternal Grandmother - Heart Maternal Grandmother - Diabetes Paternal Grandfather - Emphysema Paternal Grandmother Social History Social History Main Topics - Smoking status: Former Smoker Packs/day: 1.00 Years: 16.00 Types: Cigarettes Quit date: 12/04/2006 - Smokeless tobacco: Never Used - Alcohol use No - Drug use: No - Sexual activity: Not Currently Partners: Male control/ protection: Spermicide, Inserts Comment: nuvaring ALLERGIES Allergen Reactions - Dilaudid [Hydromorp* Swelling migraines - Levemir [Insulin De* Other: See Comments Urine turned dark and smelly - Methadone Swelling migraine - Morphine Swelling migraines - Remicade [Inflixima* Intolerance broke out in blisters with the 6th dose. - Ultram [Tramadol Hc* Swelling migraines Review of Systems Constitutional: Negative for chills and fever. Gastrointestinal: Negative for nausea and vomiting. Skin: Positive for wound. Negative for color change. Neurological: Negative for weakness and numbness. Physical Exam BP 132/77 Pulse 86 Temp (Src) 98.6 (Temporal Artery) Resp 17 Ht 4' 11 (1.50m) Wt 170 lb (77.1kg) SpO2 98% BMI 34.32 kg/(m2). Physical Exam Constitutional: She is oriented to person, place, and time. She appears well-developed and well-nourished. HENT: Head: Normocephalic and atraumatic. Eyes: EOM are normal. Neck: Normal range of motion. Neck supple. Musculoskeletal: Normal range of motion. She exhibits tenderness. Left hand: She exhibits tenderness and laceration. She exhibits normal capillary refill and no deformity. Normal sensation noted. Normal strength noted. Hands: Neurological: She is alert and oriented to person, place, and time. No cranial nerve deficit or sensory deficit. Skin: Skin is warm and dry. Capillary refill takes less than 2 seconds. Psychiatric: She has a normal mood and affect. Her behavior is normal. Nursing note and vitals reviewed. Diagnostic Testing ED Labs Ordered and Reviewed - No data to display Procedures ED Course / Clinical Impression Clinical Impressions as of Jun 11 2027 Crushing injury of left thumb, initial encounter MDM / Disposition / Plan Patient does not want x-rays of her left thumb. Patient will be given a prescription for Keflex to cover for a possible open fracture of the distal phalanx of her left thumb. Patient was instructed to ice and elevate her left thumb. Patient was given a tetanus booster. Patient was instructed to follow-up with her primary care physician in 7-10 days. Patient and her understood and were agreeable with the plan. All questions were answered. Disposition The patient was discharged and given RX. Counseled patient and spouse regarding suspected diagnosis. As well as the need for follow-up. Discharged home with verbal and written instructions. They were instructed to return as needed for persistent or worsening symptoms or any new concerns. Condition at disposition is stable. The patient was DISCHARGED: Counseled patient and spouse regarding suspected diagnosis AND need for follow-up. Discharged home with verbal and written instructions. They were instructed to return as needed for persistent or worsening symptoms or any new concerns. Condition at time of disposition: stable SIGNATURE: DO Sandro Villarreal DO 06/11/182030 ED NOTE Observed: 06/11/2018 Status: COMPLETED Source: [place] 8:01 PM [facility] REPOSITORY HNO ID: [id number] Author: Alayna (Rn) GUILLERMINA Hudson Service: Emergency Medicine Author Type: Registered Nurse Type: ED Notes Filed: 06/11/2018 8:12 PM Note Text: Pt verbalized I do not want an xray, I just want my Tetanus updated, I get enough xrays as it is. PROGRESS Observed: 05/24/2018 Status: COMPLETED Source: [place] 12:27 PM [facility] REPOSITORY HNO ID: [id number] Author: Grayson Phan Service: (none) Author Type: Physician Type: Progress Notes Filed: 05/24/2018 12:42 PM Note Text: This note was created using [employer]. Subjective Vandana Lezama was here for follow up. Chronic pain treatments and injections were competing with diabetes control. Her glucose was elevating with steroid injections. Her main concern today was rash, peeling, thickening, some itching in both her feet. Her nails were also discolored. She denied foot pain or trauma, numbness or tingling. She was applying two kinds of moisturizers with no effect. She typically walked barefoot on bare ground in the summer. Her migraine flared up today. Her other issues were stable. ACTIVE PROBLEM LIST Regional Enteritis of Large Intestine (Hcc) Retention of Urine, Unspecified Mixed Hyperlipidemia Lumbago Ileostomy Status (Hcc) Insulin-Requiring Or Dependent Type II Diabetes Mellitus (Hcc) Fibromyalgia Non-Alcoholic Fatty Liver Disease Depression Atopic Eczema Other Psoriasis Migraine Headache Without Aura Recurrent Cold Sores Vitamin B12 Deficiency Chronic Rhinitis Current Outpatient Prescriptions: JANUVIA 50 mg tablet take 1 tablet by mouth once daily pregabalin (LYRICA) 150 mg capsule Take 1 capsule by mouth three times daily for 61 days. ammonium lactate (LAC-HYDRIN) 12 % cream Apply 1-2x a day for dry areas insulin glargine (LANTUS SOLOSTAR U-100 INSULIN) 100 unit/mL (3 mL) inpn Inject 45 units and titrate to max to 60 units daily at bedtime as needed if on steroids acidophilus-pectin, citrus (ACIDOPHILUS PROBIOTIC) 100 million cell-10 mg cap Take 1 cap daily metFORMIN (GLUCOPHAGE) 1,000 mg tablet Take 1 tablet by mouth twice daily. Blood-Glucose Meter (Letsdecco VERIO IQ METER) monitoring kit 1 Each as needed. to check blood sugars. blood sugar diagnostic (IsomarkTOUCH VERIO) test strip For checking Blood Sugars once daily lancets (ONETOUCH DELICA LANCETS) 30 gauge misc To check Blood Sugars once a day ranitidine (ZANTAC) 150 mg tablet take 1 tablet by mouth twice a day if needed cetirizine (ZYRTEC) 10 mg tablet Take 1 tablet by mouth once daily. Cholecalciferol, Vitamin D3, 2,000 unit cap Take 1 capsule by mouth once daily. Insulin [place], Disposable, (BD ULTRAFINE III MINI PEN) 31 gauge x 3/16 ndle Use once a day SUMAtriptan (IMITREX) 50 mg tablet Take one(1) tablet daily as needed, at headache onset. Repeat in two(2) hours if needed. COMPOUNDED PRESCRIPTION 1. V44.2 Ileostomy status (HCC) (primary diagnosis)2. 555.1 Regional enteritis of large intestine (HCC)Ileostomy Supplies. 1. Pouches, 2. Planges, 3. Felipe seals, 4. Stoma adhesive, 5. Stoma powder, 6. Skin preps, 7. Adhesive remover wipes. Dispense 1 year supplies. oxyCODONE-acetaminophen (PERCOCET) 5-325 mg tablet Take 1 tablet by mouth every 8 hours as needed. tizanidine (ZANAFLEX) 4 mg ORAL tablet Take by mouth. . Takes 1 tablet at bedtime. COMPOUNDED PRESCRIPTION CAVILON no-sting barrier film. Prod# 3343 made by [employer] ciclopirox (LOPROX) 0.77 % cream Apply 1 application to affected area twice daily. No current facility-administered medications for this visit. Review of Systems Constitutional: Negative. Respiratory: Negative. Cardiovascular: Negative. Gastrointestinal: Negative. Musculoskeletal: Positive for back pain and myalgias. Neurological: Positive for headaches. Negative for weakness and numbness. Objective BP 123/83 (BP Site: Left Arm, BP Position: Sitting, BP Cuff Size: Regular Adult) Pulse 74 Temp (!) 35.9 ?C (96.7 ?F) (Left Tympanic) Resp 20 Wt 77.6 kg (171 lb) BMI 33.40 kg/m? Physical Exam Constitutional: No distress. Cardiovascular: Regular rhythm and normal heart sounds. Exam reveals no gallop. No murmur heard. Pulmonary/Chest: Breath sounds normal. Musculoskeletal: She exhibits no edema. Feet: Shoes and socks removed, No deformities, ulcers, calluses, normal distal pulses, sensitive to 10 gm monofilament and nails painted. Hygiene poor. skin thickened, fissuring, no drainage. Fungal rash scattered in forefeet, plantar feet, heels. Assessment and Plan 1. Tinea pedis of both feet - ICD9: 110.4, ICD10: B35.3 (primary diagnosis) - Keep area of concern very dry. Ok to use OTC antifungal powder if area is moist - She was aware of diabetic foot care recommendations. She will call in 4 weeks for podiatry consult if not better. - CICLOPIROX 0.77 % TOPICAL CREAM 2. Insulin-requiring or dependent type II diabetes mellitus (HCC) - ICD9: 250.00, V58.67, ICD10: E11.9, Z79.4 worsening control - Continue current medications - HEMOGLOBIN A1C (POC) - CONSULT TO OPHTHALMOLOGY 3. Migraine without aura and without status migrainosus, not intractable - ICD9: 346.10, ICD10: G43.009 Responsive to sumatriptan. 4. Encounter for screening mammogram for breast cancer - ICD9: V76.12, ICD10: Z12.31 - SÁNCHEZ SCREENING Grayson Phan MD CNOV Observed: 05/24/2018 Status: COMPLETED Source: [place] 10:00 AM [facility] REPOSITORY Office Visit (INTMWS) VANDANA LEZAMA ([id number]) 1975 F Date Time Provider Department 05/24/18 10:00 AM GRAYSON PHAN [facility] During your visit today, we recorded the following information about you: Temperature Pulse Respiration Blood pressure 96.7 degrees 74/minute 20/minute 123/83 Weight 77.6 kg Grayson Phan MD 05/24/2018 12:42 PM Signed This note was created using [employer]. Subjective Vandana Lezama was here for follow up. Chronic pain treatments and injections were competing with diabetes control. Her glucose was elevating with steroid injections. Her main concern today was rash, peeling, thickening, some itching in both her feet. Her nails were also discolored. She denied foot pain or trauma, numbness or tingling. She was applying two kinds of moisturizers with no effect. She typically walked barefoot on bare ground in the summer. Her migraine flared up today. Her other issues were stable. ACTIVE PROBLEM LIST Regional Enteritis of Large Intestine (Hcc) Retention of Urine, Unspecified Mixed Hyperlipidemia Lumbago Ileostomy Status (Hcc) Insulin-Requiring Or Dependent Type II Diabetes Mellitus (Hcc) Fibromyalgia Non-Alcoholic Fatty Liver Disease Depression Atopic Eczema Other Psoriasis Migraine Headache Without Aura Recurrent Cold Sores Vitamin B12 Deficiency Chronic Rhinitis Current Outpatient Prescriptions: JANUVIA 50 mg tablet take 1 tablet by mouth once daily pregabalin (LYRICA) 150 mg capsule Take 1 capsule by mouth three times daily for 61 days. ammonium lactate (LAC-HYDRIN) 12 % cream Apply 1-2x a day for dry areas insulin glargine (LANTUS SOLOSTAR U-100 INSULIN) 100 unit/mL (3 mL) inpn Inject 45 units and titrate to max to 60 units daily at bedtime as needed if on steroids acidophilus-pectin, citrus (ACIDOPHILUS PROBIOTIC) 100 million cell-10 mg cap Take 1 cap daily metFORMIN (GLUCOPHAGE) 1,000 mg tablet Take 1 tablet by mouth twice daily. Blood-Glucose Meter (ONETOUCH VERIO IQ METER) monitoring kit 1 Each as needed. to check blood sugars. blood sugar diagnostic (ONETOUCH VERIO) test strip For checking Blood Sugars once daily lancets (ONETOUCH DELICA LANCETS) 30 gauge misc To check Blood Sugars once a day ranitidine (ZANTAC) 150 mg tablet take 1 tablet by mouth twice a day if needed cetirizine (ZYRTEC) 10 mg tablet Take 1 tablet by mouth once daily. Cholecalciferol, Vitamin D3, 2,000 unit cap Take 1 capsule by mouth once daily. Insulin [place], Disposable, (BD ULTRAFINE III MINI PEN) 31 gauge x 3/16 ndle Use once a day SUMAtriptan (IMITREX) 50 mg tablet Take one(1) tablet daily as needed, at headache onset. Repeat in two(2) hours if needed. COMPOUNDED PRESCRIPTION 1. V44.2 Ileostomy status (HCC) (primary diagnosis)2. 555.1 Regional enteritis of large intestine (HCC)Ileostomy Supplies. 1. Pouches, 2. Planges, 3. Felipe seals, 4. Stoma adhesive, 5. Stoma powder, 6. Skin preps, 7. Adhesive remover wipes. Dispense 1 year supplies. oxyCODONE-acetaminophen (PERCOCET) 5-325 mg tablet Take 1 tablet by mouth every 8 hours as needed. tizanidine (ZANAFLEX) 4 mg ORAL tablet Take by mouth. . Takes 1 tablet at bedtime. COMPOUNDED PRESCRIPTION CAVILON no-sting barrier film. Prod# 3343 made by [employer] ciclopirox (LOPROX) 0.77 % cream Apply 1 application to affected area twice daily. No current facility-administered medications for this visit. Review of Systems Constitutional: Negative. Respiratory: Negative. Cardiovascular: Negative. Gastrointestinal: Negative. Musculoskeletal: Positive for back pain and myalgias. Neurological: Positive for headaches. Negative for weakness and numbness. Objective BP 123/83 (BP Site: Left Arm, BP Position: Sitting, BP Cuff Size: Regular Adult) Pulse 74 Temp (!) 35.9 ?C (96.7 ?F) (Left Tympanic) Resp 20 Wt 77.6 kg (171 lb) BMI 33.40 kg/m? Physical Exam Constitutional: No distress. Cardiovascular: Regular rhythm and normal heart sounds. Exam reveals no gallop. No murmur heard. Pulmonary/Chest: Breath sounds normal. Musculoskeletal: She exhibits no edema. Feet: Shoes and socks removed, No deformities, ulcers, calluses, normal distal pulses, sensitive to 10 gm monofilament and nails painted. Hygiene poor. skin thickened, fissuring, no drainage. Fungal rash scattered in forefeet, plantar feet, heels. Assessment and Plan 1. Tinea pedis of both feet - ICD9: 110.4, ICD10: B35.3 (primary diagnosis) - Keep area of concern very dry. Ok to use OTC antifungal powder if area is moist - She was aware of diabetic foot care recommendations. She will call in 4 weeks for podiatry consult if not better. - CICLOPIROX 0.77 % TOPICAL CREAM 2. Insulin-requiring or dependent type II diabetes mellitus (HCC) - ICD9: 250.00, V58.67, ICD10: E11.9, Z79.4 worsening control - Continue current medications - HEMOGLOBIN A1C (POC) - CONSULT TO OPHTHALMOLOGY 3. Migraine without aura and without status migrainosus, not intractable - ICD9: 346.10, ICD10: G43.009 Responsive to sumatriptan. 4. Encounter for screening mammogram for breast cancer - ICD9: V76.12, ICD10: Z12.31 - SÁNCHEZ SCREENING Grayson Phan MD Referring Provider: GRAYSON PHAN [[id number]] Allergies As of Date: 05/24/2018 Noted Allergy Reaction DILAUDID (HYDROMORPHONE (BULK)) 08/07/2006 7 - Swelling Comments: migraines LEVEMIR (INSULIN DETEMIR) 02/17/2014 14 - Other: See Comments Comments: Urine turned dark and smelly METHADONE 11/04/2013 7 - Swelling Comments: migraine MORPHINE 08/07/2006 7 - Swelling Comments: migraines REMICADE (INFLIXIMAB) 08/08/2006 5 - Intolerance Comments: broke out in blisters with the 6th dose. ULTRAM (TRAMADOL HCL) 04/07/2009 7 - Swelling Comments: migraines Date Reviewed: 05/24/2018 Reviewed by: Laina Monroe LPN - Fully Assessed Reason for Visit: F/U 6 Month [444] Primary Visit Diagnosis:Tinea pedis of both feet [B35.3] Other Visit Diagnoses:Insulin-requiring or dependent type II diabetes mellitus (HCC) [E11.9, Z79.4] Migraine without aura and without status migrainosus, not intractable [G43.009] Encounter for screening mammogram for breast cancer [Z12.31] Order(s):ciclopirox (LOPROX) 0.77 % creamApply 1 application to affected area twice daily.Disp: 90 gRfl: 0 HEMOGLOBIN A1C (POC) [3030685] Order #: [id number]. #:[id number] SÁNCHEZ SCREENING [[id number]] Order #: [id number] FUTURE CONSULT TO OPHTHALMOLOGY [3611] Order #: [id number]: 1 Prescriptions as of 05/24/2018 Sig: JANUVIA 50 MG TABLET take 1 tablet by mouth once d* PREGABALIN 150 MG CAPSULE Take 1 capsule by mouth three* AMMONIUM LACTATE 12 % TOPICAL* Apply 1-2x a day for dry areas INSULIN GLARGINE (U-100) 100 * Inject 45 units and titrate t* ACIDOPHILUS 100 MILLION CELL-* Take 1 cap daily METFORMIN 1,000 MG TABLET Take 1 tablet by mouth twice * BLOOD-GLUCOSE METER KIT 1 Each as needed. to check bl* BLOOD SUGAR DIAGNOSTIC STRIPS For checking Blood Sugars onc* LANCETS 30 GAUGE To check Blood Sugars once a * RANITIDINE 150 MG TABLET take 1 tablet by mouth twice * CETIRIZINE 10 MG TABLET Take 1 tablet by mouth once d* CHOLECALCIFEROL (VITAMIN D3) * Take 1 capsule by mouth once * PEN NEEDLE, DIABETIC 31 GAUGE* Use once a day SUMATRIPTAN 50 MG TABLET Take one(1) tablet daily as n* COMPOUNDED PRESCRIPTION 1. V44.2 Ileostomy status (HC* OXYCODONE-ACETAMINOPHEN 5 MG-* Take 1 tablet by mouth every * TIZANIDINE 4 MG TABLET Take by mouth. . Takes 1 ta* COMPOUNDED PRESCRIPTION CAVILON no-sting barrier film* CICLOPIROX 0.77 % TOPICAL CRE* Apply 1 application to affect* Medication notes this encounter PREGABALIN 150 MG CAPSULE >> Laina Monroe LPN 05/24/2018 10:29 AM >> LAINA MONROE LPN [place] May 24, 2018 10:29 AM Patient taking 1 tablet twice daily. Problem List As Of Date 05/24/2018 Noted Resolved REG ENTERITIS, LG INTEST [K50.10] INVALID FOR* RETENTION OF URINE UNSPEC [R33.9] INVALID FOR* Mixed hyperlipidemia [E78.2] INVALID FOR* Anemia, unspecified [D64.9] INVALID FOR*03/08/2012 LUMBAGO [M54.5] INVALID FOR* Nonspecific abnormal results of liver function *INVALID FOR*04/19/2011 More... Onychia and paronychia of toe [L03.039] INVALID FOR*02/18/2013 ILEOSTOMY STATUS [Z93.2] INVALID FOR* IMPAIRED GLUCOSE JUNE TEST [R73.02] INVALID FOR*04/16/2008 Insulin-requiring or dependent type II diabetes*INVALID FOR* Fibromyalgia [M79.7] INVALID FOR* More... Non-alcoholic fatty liver disease [K76.0] INVALID FOR* Mild dysplasia of cervix [N87.0] INVALID FOR*03/08/2012 Fibromyalgia [M79.7] 04/19/2011 Depression [F32.9] INVALID FOR* Eczematous dermatitis: hands [L30.9] INVALID FOR*02/18/2013 Xerosis cutis [L85.3] INVALID FOR*02/18/2013 Atopic eczema [L20.9] INVALID FOR* Other psoriasis [L40.8] INVALID FOR* Contact dermatitis and other eczema, due to uns*INVALID FOR*01/03/2017 Hypoglycemia [E16.2] INVALID FOR*03/08/2012 Migraine headache without aura [G43.009] INVALID FOR* Recurrent cold sores [B00.1] INVALID FOR* Sprain of wrist, left [S63.502A] INVALID FOR*05/24/2018 Vitamin B12 deficiency [E53.8] INVALID FOR* Chronic rhinitis [J31.0] INVALID FOR* Prescriptions ordered this encounter Disp Refills Start End CICLOPIROX 0.77 % TOPICAL CREAM 90 g 0 05/24/2018 Route: TOPICAL Sig: Apply 1 application to affected area twice daily. Disposition: Return in about 6 months (around 11/24/2018), or if symptoms worsen or fail to improve. Follow-up and Disposition History Recorded Encounter Status:Closed by GRAYSON PHAN MD on 05/24/18 ORTHOPEDIC VISIT Observed: 03/08/2018 Status: F Source: [place] REPORT 11:18 AM [facility] REPOSITORY [facility] Orthopa[facility]ics [facility] [address] [place] [id number] OFFICE VISIT Date of Service: 02/27/18 MR#: [id number] Acct: [id number] Name: VANDANA LEZAMA Rep #: [id number] : 1975 Provider: Lara Reeder DO Age/Sex: 42/F Location: [facility] [place] [place] Status: Signed Intake Intake Visit Reasons: Bilat Shoulder Is patient in pain?: Yes Allergies morphine Allergy (Verified 02/27/18 15:46) Swelling Medications Metformin HCl [Glucophage] 1,000 mg PO BIDCM 03/06/17 [History Confirmed 03/06/17] Ranitidine [Zantac] 150 mg PO BID PRN 03/06/17 [History Confirmed 03/06/17] Sitagliptin Phosphate [Januvia] 100 mg PO DAILY 03/06/17 [History Confirmed 03/06/17] Tizanidine HCl [Zanaflex] 1 - 2 tab PO DAILY PRN 03/06/17 [History Confirmed 03/06/17] fentaNYL patch [Duragesic] 12 mcg TRANSDERM. Q3D 03/06/17 [History Confirmed 03/06/17] proMETHazine tablet [Phenergan] 25 mg PO Q6H PRN PRN #20 tab 03/06/17 [Rx] PFSH Social History Smoking Status: Never smoker HPI Bilat Shoulder: Details: VANDANA LEZAMA is a 42 year old F here today for bilateral shoulder pain. She states that her pain began again in January following her last injection in 10/03/17. Patient notes that she has a catching with range of motion which is painful. Her pain is over her anterior shoulder. She notes that she has weakness. Denies numbness, tingling or other associated symptoms. ROS Const Reports system reviewed and no additional complaints, except as docu Eyes Reports system reviewed and no additional complaints, except as docu ENT Reports system reviewed and no additional complaints, except as docu Card Reports system reviewed and no additional complaints, except as docu Resp Reports system reviewed and no additional complaints, except as docu GI Reports system reviewed and no additional complaints, except as docu Reports system reviewed and no additional complaints, except as docu Skin/Breast Reports system reviewed and no additional complaints, except as docu Neuro Yes system reviewed and no additional complaints, except as docu Psych Reports system reviewed and no additional complaints, except as docu Endo Reports system reviewed and no additional complaints, except as docu Ortho Exam Right Shoulder Skin/Wound: Yes CDI Contralateral Normal: No Testing: Positive AROM-Forward Elevation 0-180 (90) Left Shoulder Skin/Wound: Yes CDI Contralateral Normal: No Testing: Yes AROM-Forward Elevation 0-180 (90) Office Procedures Ortho Injections Injections Yes Subacromial Injection Bilateral Details: Obtained consent for injection. Under sterile conditions, injected the patients right and left subacromial joint with a 10cc cocktail of 8cc bupivacaine and 2cc kenalog. The patient tolerated the injection well without any noted complication. Patient should call our office if redness develops, pain worsens or if they have any concerns. Office Meds Kenalog Performing Provider: Lara Reeder DO Administered by: Lara Reeder DO on 02/27/18 16:00 Dose Route Admin Location Lot Number Expiration DateNDC Signal Supervisor 2 mg Intra-Articularbilat [id number] 03/13/19 [id number] [facility] (formerly [facility]) Assessment AND Plan 1. Bilateral adhesive capsulitis of shoulders M75.01; M75.02 Plan discussed options, patient not interested in surgical intervention at this time, would prefer to continue with injections until they fail to provide relief of symptoms. patient in agreement/aware of plan options and today elects to proceed with shoulder injections. would prefer to perform a subacromial decompression /acromioplasty. patient aware. She continues to have success with conservative care and injections, instructed to work on rom at home. Reviewed the risk of serial steroid injections and glaucoma Follow up in 4 months or sooner if pain, swelling, numbness or associated symptoms, or concerns develop. All questions answered. Patient in agreement of plan. 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 ([id number]) 03/08/18 1118 <Electronically signed by Lara Reeder DO> Date Lara Reeder DO Cosigner Signature: Date (if applicable) CC: PROGRESS Observed: 03/06/2018 Status: COMPLETED Source: [place] 2:38 PM [facility] REPOSITORY HNO ID: [id number] Author: Sophy Harrison Service: (none) Author Type: Physician Type: Progress Notes Filed: 03/06/2018 3:45 PM Note Text: HISTORY Ms Vandana Lezama is a 42 year old female who comes in here for follow-up of Type 2 DM - retinal hole, +neuropathy from cervical problems Dyslipidemia and fatty liver- elevated liver enzymes Steroid injections Low bone mass DIABETES Diagnosed DM in 2006, was having reactive hypoglycemia History of diabetes medications: Metformin started first Januvia started 2011 Glyburide caused lows 50s Lantus Current diabetes medications: Lantus - using only when on steroids up to 45 units, yesterday went up to 60 units Metformin 1000 mg BID Januvia 100 mg daily - out 60 days because of insurance Brought meter Am 150-210 without steroids 180-240 with steroids Hypoglycemias: none Was on atorvastatin, stopped, wanting to go holistic STEROIDS/BONE Has ileostomy bag Has Crohn's - no steroids for this, has ileostomy Steroid injections: recent one April 27, 2017 - did not raise BG, also gets for rotator cuff Received 4 injections of steroid this month January 15 January 25 February 15 February 27 BMD Latest one 2016 Z score -2.3 Fall - stairs, wet boots, slipped 2006 No new fracture PMHx: LDL chol again high, does not like statin FamHx: Crohn's - cousins pat DM - grandparents 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 >60 Triglyceride <150 mg/dL 188 (H) 148 Cholesterol, Total <200 mg/dL 262 (H) 235 (H) HDL Cholesterol >39 mg/dL 62 52 VLDL Cholesterol <30 mg/dL 38 30 (H) LDL Cholesterol <100 mg/dL 162 (H) 153 (H) Fasting Time hrs 12 10 TC:HDL Ratio <5.10 4.23 4.52 LDL:HDL Ratio <2.54 2.61 2.94 (H) Non HDL Cholesterol <130 mg/dL 200 (H) 183 (H) Creatinine, Ur Random (UCRR) 20 - 300 mg/dL 247.2 81.5 Albumin, Urine Random 0.0 - 23.0 mg/L 19.4 <12.0 Albumin/Creat Ratio 0 - 30 mg/g 8 Not calculated Iron 41 - 186 ug/dL 103 TIBC 232 - 386 ug/dL 285 Transferrin Saturation 15 - 57 % 36 Hemoglobin A1C 4.3 - 5.6 % 7.1 (H) Estimated Average Glucose mg/dL 157 Hemoglobin A1C (POCT) 4.2 - 5.6 % 6.6 (A) 8.1 (A) Vitamin D 25 Hydroxy 31.0 - 80.0 ng/mL 28.1 (L) 32.3 ALT 7 - 38 U/L 86 (H) AST 13 - 35 U/L 70 (H) Vitamin B12 232 - 1245 pg/mL 932 04/21/2017 ?8:00 AM - Interface, Results In Impression IMPRESSION: THE LOWEST Z-SCORE IS: -2.3 DIAGNOSIS (based on BMD alone): ?Below that expected for age Caution: Medical conditions other than osteoporosis may cause low bone density, such as osteomalacia or renal osteodystrophy. ?Clinical correlation is necessary. FRACTURE RISK (based on BMD alone): ?May be increased Caution: Fracture risk may be increased independent of BMD in patients with corticosteroid use, age greater than 65 years, or a history of prior fragility fracture. FRACTURE RISK - FRAX 10-Year Probability of Fracture ?Hip Fracture: ?0.4 % ?Major Osteoporotic Fracture: ?4.0 % According to the National Osteoporosis Foundation (NOF), healthcare providers should consider FDA-approved medical therapies in postmenopausal women and men aged 50 years and older, based on the following: * ?A hip or vertebral (clinical or morphometric) fracture * ?T-score less than or equal to -2.5 at the femoral neck or spine after appropriate evaluation to exclude secondary causes * ?Low bone mass (T-score between -1.0 and -2.5 at the femoral neck or spine) AND a 10-year probability of a hip fracture greater than or equal to 3% OR a 10-year probability of a major osteoporosis-related fracture greater than or equal to 20% based on the US-adapted WHO FRAX algorithm in a previously untreated patient * ?Clinician's judgment and/or patient preferences may indicate treatment for people with 10-year fracture probabilities above or below these levels RECOMMENDATIONS All patients should consume adequate sources of calcium and vitamin D, as clinically indicated. ?The NOF supports the National Academy of Sciences recommendation that women older than age 50 consume at least 1,200 mg per day of calcium. ? Adults aged 19 to 70 years require at least 600 IU/day of vitamin D to maximize bone health. ?However, serum 25(OH)D should be maintained above 30 ng/mL, and 1500 to 2000 IU/day of vitamin D may be required. Weight bearing exercises and strength training should be considered. Smoking cessation, and moderation of intake of alcohol, caffeine and carbonated beverages are recommended. Follow-up in 2 years or as clinically indicated. ?Patients that are taking corticosteroids, are transplant recipients, or have hyperparathyroidism should have annual follow-up. ?Follow- up scans should always be done on the same machine for accurate comparison. Interpreted by: Pema Wright MS, , CCD, FACE FOR MORE INFORMATION: National Osteoporosis Foundation: ?www.nof.org International Society of Clinical Densitometry: ?www.iscd.org Senior Project Manager Engineering: SANTOS ? Transcribe Date/Time: Apr ?7:43A Dictated by : PEMA WRIGHT MD This examination was interpreted and the report reviewed and electronically signed by: PEMA WRIGHT MD on Apr ?7:54AM ?EST Results-Findings * * *Final Report* * * DATE OF EXAM: Apr ?8:56AM ? M6B ? 5714 ?- ?BD AP SPINE/HIP -NB ?/ PROCEDURE REASON: calcium clinic - bone density ?? ? * * * * Physician Interpretation * * * * ?EXAM: DXA - ?BONE DENSITOMETRY ENDOCRINE CALCIUM CLINIC PATIENT DEMOGRAPHICS ?Age: 41, ?Race: C Gender: F ?Height: 152.4 cm, ? Weight: 76.7 Kg, BMI: 33.01 Kg/m2 SCANNER INFORMATION Model of DXA scanner: Human Demand Site of DXA scanner: [facility] Sites scanned: Lumbar spine, ?left hip Date of scan: 04-20-2017 Previous scan(s): 09-22-2014 RISK FACTORS FOR OSTEOPOROSIS AND ASSOCIATED FRACTURES REPORTED BY THE PATIENT Family history of osteoporosis in a first degree relative, ?Family history of a fragility fracture in a first degree relative, Current corticosteroid therapy, Type 2 Diabetes, ?Crohn's disease with ileostomy., ?Lactose intolerance. CURRENT THERAPY Calcium supplements TECHNICAL LIMITATIONS OF THIS DXA The greater trochanter may not have been positioned fully against the DXA table therefore the total hip BMD may be artificially low. 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 Mc, [facility] - Type II or unspecified type diabetes mellitus without mention of complication, not stated as uncontrolled PAST SURGICAL HISTORY Procedure Laterality Date - EPIDURAL multiple ones done by Dr. Beckett, last one in 04/2011 - KNEE SCOPE,DIAGNOSTIC 1989 Arthroscopy, knee, left - OP BRONCHOS DIAG, W/WO WASHING January 2007 Bronchoscopy - PAST SURGICAL HISTORY OF 06/2000 ILEOSTOMY/COLECTOMY - PAST SURGICAL HISTORY OF 1993 CRYOCAUTERY/ MILD DYSPLASIA - PAST SURGICAL HISTORY OF March 2006 Abdominal abscess with anal fistula - PROCTECTOMY,COMPL,COLECTOMY,BX'S 2006 AP endoanal proctectomy - REMOVAL ADENOIDS,PRIMARY,<12 Y/O as child Adenoidectomy - REMOVAL OF TONSILS,<12 Y/O AGE 11 Tonsillectomy Social History Substance Use Topics - Smoking status: Former Smoker Packs/day: 1.00 Years: 16.00 Types: Cigarettes Quit date: 12/04/2006 - Smokeless tobacco: Never Used - Alcohol use No FAMILY HISTORY Problem Relation Age of Onset - Alcohol/Drug Mother - Hypertension Mother COPD - vascular disease [OTHER] Mother - Alcohol/Drug Father - Cancer Father liver - Diabetes Maternal Grandmother - Stroke Maternal Grandmother - Heart Maternal Grandmother - Diabetes Paternal Grandfather - Emphysema Paternal Grandmother Current Outpatient Prescriptions: metFORMIN (GLUCOPHAGE) 1,000 mg tablet Take 1 tablet by mouth twice daily. pregabalin (LYRICA) 150 mg capsule Take 1 capsule by mouth three times daily for 30 days. Blood-Glucose Meter (ONETOUCH VERIO IQ METER) monitoring kit 1 Each as needed. to check blood sugars. blood sugar diagnostic (ONETOUCH VERIO) test strip For checking Blood Sugars once daily lancets (ONETOUCH DELICA LANCETS) 30 gauge misc To check Blood Sugars once a day ranitidine (ZANTAC) 150 mg tablet take 1 tablet by mouth twice a day if needed cetirizine (ZYRTEC) 10 mg tablet Take 1 tablet by mouth once daily. Cholecalciferol, Vitamin D3, 2,000 unit cap Take 1 capsule by mouth once daily. ammonium lactate (LAC-HYDRIN) 12 % cream Apply 1-2x a day for dry areas insulin glargine (LANTUS SOLOSTAR) 100 unit/mL (3 mL) inpn Inject 45 Units subcutaneously daily at bedtime. As needed if on steroids Insulin [place], Disposable, (BD ULTRAFINE III MINI PEN) 31 gauge x 3/16 ndle Use once a day sitaGLIPtin (JANUVIA) 50 mg tablet Take 1 tablet by mouth once daily. SUMAtriptan (IMITREX) 50 mg tablet Take one(1) tablet daily as needed, at headache onset. Repeat in two(2) hours if needed. COMPOUNDED PRESCRIPTION 1. V44.2 Ileostomy status (HCC) (primary diagnosis)2. 555.1 Regional enteritis of large intestine (HCC)Ileostomy Supplies. 1. Pouches, 2. Planges, 3. Felipe seals, 4. Stoma adhesive, 5. Stoma powder, 6. Skin preps, 7. Adhesive remover wipes. Dispense 1 year supplies. oxyCODONE-acetaminophen (PERCOCET) 5-325 mg tablet Take 1 tablet by mouth every 8 hours as needed. tizanidine (ZANAFLEX) 4 mg ORAL tablet Take by mouth. . Takes 1 tablet at bedtime. COMPOUNDED PRESCRIPTION CAVILON no-sting barrier film. Prod# [id number] made by [employer] No current facility-administered medications for this visit. ALLERGIES Allergen Reactions - Dilaudid [Hydromorp* Swelling migraines - Levemir [Insulin De* Other: See Comments Urine turned dark and smelly - Methadone Swelling migraine - Morphine Swelling migraines - Remicade [Inflixima* Intolerance broke out in blisters with the 6th dose. - Ultram [Tramadol Hc* Swelling migraines PHYSICAL EXAMINATION BP 128/71 Pulse 91 Wt 76.2 kg (168 lb) LMP 02/03/2018 BMI 32.81 kg/m2 Body mass index is 32.81 kg/(m2). GENERAL: not in distress, well-appearing HEENT: anicteric sclerae, non-injected conjunctivae, full cheeks MUSCULOSKELETAL: no deformities, no fasciculations SKIN: dry, no cyanosis NEUROLOGIC: alert, oriented ASSESSMENT/PLAN Type 2 diabetes, uncontrolled Dyslipidemia Fatty liver - since 17 y/o Chronic intermittent steroid use Bone loss B12 deficiency, may be related to metformin Discussed pain management and avoidance of steroid shots Patient would like to continue seeing current pain mgmt physician Check BGs once a day, different times of day Lantus -can inc to 60 units hs Discussed GLP-1 agonist. Patient would prefer to continue current regimen Continue metformin Continue Januvia Diabetes health maintenance record reviewed. Hypoglycemia prevention, recognition and treatment reviewed Again not wanting to take statin, wants to go holistic Gut bacteria and metabolism discussed. Prescribed probiotic Low risk of fracture by FRAX No indication for bisphosphonate Calcium-rich foods - gave list in the past Continue vitamin D 2000 units daily Labs Annual DM -done 01/2018 BMD BONE DENSITY - 2019 Follow-up 6 months Contact us sooner if with concerns Follow-up with primary care physician for other medical issues. Temi Harrison M.D., M.P.H. March 06, 2018 3:44 PM CNOV Observed: 03/06/2018 Status: COMPLETED Source: [place] 1:45 PM [facility] REPOSITORY Office Visit (ENDOMN) VANDANA LEZAMA ([id number]) 1975 F Date Time Provider Department 03/06/18 1:45 PM [facility]OMN During your visit today, we recorded the following information about you: Pulse Blood pressure Weight Last Period 91/minute 128/71 76.2 kg 02/03/18 John Morales Ma 03/06/2018 2:00 PM Signed Thank you for choosing the [facility] Department of Endocrinology, Diabetes and Metabolism. Being able to provide excellent health care has allowed us to be # 3 in the country according to [employer] World [employer]. Did you know that you need to call 48 hours in advance of your scheduled visit, if you are unable to make your appointment? The Endocrinology and Metabolism [facility] thanks you for your commitment, because patients not showing to their appointment results in a lost opportunity for patients to receive world class health care at the [facility]. To Cancel an appointment, please choose one of the following: - Call the Appointment Call Center at [phone] - From [employer], Go to Appointments ? Cancel Appts If cancelling, consider your need to reschedule to prevent further delays in your care. To Schedule an appointment, please choose one of the following: - Call the Appointment Call Center at [phone] - From [employer], Go to Appointments ? Request an Appt M.Mony Harrison MD 03/06/2018 3:45 PM Signed HISTORY Ms Vandana Lezama is a 42 year old female who comes in here for follow-up of Type 2 DM - retinal hole, +neuropathy from cervical problems Dyslipidemia and fatty liver- elevated liver enzymes Steroid injections Low bone mass DIABETES Diagnosed DM in 2006, was having reactive hypoglycemia History of diabetes medications: Metformin started first Januvia started 2011 Glyburide caused lows 50s Lantus Current diabetes medications: Lantus - using only when on steroids up to 45 units, yesterday went up to 60 units Metformin 1000 mg BID Januvia 100 mg daily - out 60 days because of insurance Brought meter Am 150-210 without steroids 180-240 with steroids Hypoglycemias: none Was on atorvastatin, stopped, wanting to go holistic STEROIDS/BONE Has ileostomy bag Has Crohn's - no steroids for this, has ileostomy Steroid injections: recent one April 27, 2017 - did not raise BG, also gets for rotator cuff Received 4 injections of steroid this month January 15 January 25 February 15 February 27 BMD Latest one 2016 Z score -2.3 Fall - stairs, wet boots, slipped 2006 No new fracture PMHx: LDL chol again high, does not like statin FamHx: Crohn's - cousins pat DM - grandparents 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 ANDgt;60 Triglyceride ANDlt;150 mg/dL 188 (H) 148 Cholesterol, Total ANDlt;200 mg/dL 262 (H) 235 (H) HDL Cholesterol ANDgt;39 mg/dL 62 52 VLDL Cholesterol ANDlt;30 mg/dL 38 30 (H) LDL Cholesterol ANDlt;100 mg/dL 162 (H) 153 (H) Fasting Time hrs 12 10 TC:HDL Ratio ANDlt;5.10 4.23 4.52 LDL:HDL Ratio ANDlt;2.54 2.61 2.94 (H) Non HDL Cholesterol ANDlt;130 mg/dL 200 (H) 183 (H) Creatinine, Ur Random (UCRR) 20 - 300 mg/dL 247.2 81.5 Albumin, Urine Random 0.0 - 23.0 mg/L 19.4 ANDlt;12.0 Albumin/Creat Ratio 0 - 30 mg/g 8 Not calculated Iron 41 - 186 ug/dL 103 TIBC 232 - 386 ug/dL 285 Transferrin Saturation 15 - 57 % 36 Hemoglobin A1C 4.3 - 5.6 % 7.1 (H) Estimated Average Glucose mg/dL 157 Hemoglobin A1C (POCT) 4.2 - 5.6 % 6.6 (A) 8.1 (A) Vitamin D 25 Hydroxy 31.0 - 80.0 ng/mL 28.1 (L) 32.3 ALT 7 - 38 U/L 86 (H) AST 13 - 35 U/L 70 (H) Vitamin B12 232 - 1245 pg/mL 932 04/21/2017 ?8:00 AM - Interface, Results In Impression IMPRESSION: THE LOWEST Z-SCORE IS: -2.3 DIAGNOSIS (based on BMD alone): ?Below that expected for age Caution: Medical conditions other than osteoporosis may cause low bone density, such as osteomalacia or renal osteodystrophy. ?Clinical correlation is necessary. FRACTURE RISK (based on BMD alone): ?May be increased Caution: Fracture risk may be increased independent of BMD in patients with corticosteroid use, age greater than 65 years, or a history of prior fragility fracture. FRACTURE RISK - FRAX 10-Year Probability of Fracture ?Hip Fracture: ?0.4 % ?Major Osteoporotic Fracture: ?4.0 % According to the National Osteoporosis Foundation (NOF), healthcare providers should consider FDA-approved medical therapies in postmenopausal women and men aged 50 years and older, based on the following: * ?A hip or vertebral (clinical or morphometric) fracture * ?T-score less than or equal to -2.5 at the femoral neck or spine after appropriate evaluation to exclude secondary causes * ?Low bone mass (T-score between -1.0 and -2.5 at the femoral neck or spine) AND a 10-year probability of a hip fracture greater than or equal to 3% OR a 10-year probability of a major osteoporosis-related fracture greater than or equal to 20% based on the US-adapted WHO FRAX algorithm in a previously untreated patient * ?Clinician's judgment and/or patient preferences may indicate treatment for people with 10-year fracture probabilities above or below these levels RECOMMENDATIONS All patients should consume adequate sources of calcium and vitamin D, as clinically indicated. ?The NOF supports the National Academy of Sciences recommendation that women older than age 50 consume at least 1,200 mg per day of calcium. ? Adults aged 19 to 70 years require at least 600 IU/day of vitamin D to maximize bone health. ?However, serum 25(OH)D should be maintained above 30 ng/mL, and 1500 to 2000 IU/day of vitamin D may be required. Weight bearing exercises and strength training should be considered. Smoking cessation, and moderation of intake of alcohol, caffeine and carbonated beverages are recommended. Follow-up in 2 years or as clinically indicated. ?Patients that are taking corticosteroids, are transplant recipients, or have hyperparathyroidism should have annual follow-up. ?Follow- up scans should always be done on the same machine for accurate comparison. Interpreted by: Pema Wright MS, , CCD, FACE FOR MORE INFORMATION: National Osteoporosis Foundation: ?www.nof.org International Society of Clinical Densitometry: ?www.iscd.org Senior Project Manager Engineering: S[employer]OS ? Transcribe Date/Time: Apr ?7:43A Dictated by : PEMA WRIGHT MD This examination was interpreted and the report reviewed and electronically signed by: PEMA WRIGHT MD on Apr ?7:54AM ?EST Results-Findings * * *Final Report* * * DATE OF EXAM: Apr ?8:56AM ? M6B ? 5714 ?- ?BD AP SPINE/HIP -NB ?/ PROCEDURE REASON: calcium clinic - bone density ?? ? * * * * Physician Interpretation * * * * ?EXAM: DXA - ?BONE DENSITOMETRY ENDOCRINE CALCIUM CLINIC PATIENT DEMOGRAPHICS ?Age: 41, ?Race: C Gender: F ?Height: 152.4 cm, ? Weight: 76.7 Kg, BMI: 33.01 Kg/m2 SCANNER INFORMATION Model of DXA scanner: Human Demand Site of DXA scanner: [facility] Sites scanned: Lumbar spine, ?left hip Date of scan: 04-20-2017 Previous scan(s): 09-22-2014 RISK FACTORS FOR OSTEOPOROSIS AND ASSOCIATED FRACTURES REPORTED BY THE PATIENT Family history of osteoporosis in a first degree relative, ?Family history of a fragility fracture in a first degree relative, Current corticosteroid therapy, Type 2 Diabetes, ?Crohn's disease with ileostomy., ?Lactose intolerance. CURRENT THERAPY Calcium supplements TECHNICAL LIMITATIONS OF THIS DXA The greater trochanter may not have been positioned fully against the DXA table therefore the total hip BMD may be artificially low. 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 Mc, [facility] - Type II or unspecified type diabetes mellitus without mention of complication, not stated as uncontrolled PAST SURGICAL HISTORY Procedure Laterality Date - EPIDURAL multiple ones done by Dr. Beckett, last one in 04/2011 - KNEE SCOPE,DIAGNOSTIC 1989 Arthroscopy, knee, left - OP BRONCHOS DIAG, W/WO WASHING January 2007 Bronchoscopy - PAST SURGICAL HISTORY OF 06/2000 ILEOSTOMY/COLECTOMY - PAST SURGICAL HISTORY OF 1993 CRYOCAUTERY/ MILD DYSPLASIA - PAST SURGICAL HISTORY OF March 2006 Abdominal abscess with anal fistula - PROCTECTOMY,COMPL,COLECTOMY,BX'S 2006 AP endoanal proctectomy - REMOVAL ADENOIDS,PRIMARY,ANDlt;11 Y/O as child Adenoidectomy - REMOVAL OF TONSILS,ANDlt;11 Y/O AGE 11 Tonsillectomy Social History Substance Use Topics - Smoking status: Former Smoker Packs/day: 1.00 Years: 16.00 Types: Cigarettes Quit date: 12/04/2006 - Smokeless tobacco: Never Used - Alcohol use No FAMILY HISTORY Problem Relation Age of Onset - Alcohol/Drug Mother - Hypertension Mother COPD - vascular disease [OTHER] Mother - Alcohol/Drug Father - Cancer Father liver - Diabetes Maternal Grandmother - Stroke Maternal Grandmother - Heart Maternal Grandmother - Diabetes Paternal Grandfather - Emphysema Paternal Grandmother Current Outpatient Prescriptions: metFORMIN (GLUCOPHAGE) 1,000 mg tablet Take 1 tablet by mouth twice daily. pregabalin (LYRICA) 150 mg capsule Take 1 capsule by mouth three times daily for 30 days. Blood-Glucose Meter (ONETOUCH VERIO IQ METER) monitoring kit 1 Each as needed. to check blood sugars. blood sugar diagnostic (ONETOUCH VERIO) test strip For checking Blood Sugars once daily lancets (ONETOUCH DELICA LANCETS) 30 gauge misc To check Blood Sugars once a day ranitidine (ZANTAC) 150 mg tablet take 1 tablet by mouth twice a day if needed cetirizine (ZYRTEC) 10 mg tablet Take 1 tablet by mouth once daily. Cholecalciferol, Vitamin D3, 2,000 unit cap Take 1 capsule by mouth once daily. ammonium lactate (LAC-HYDRIN) 12 % cream Apply 1-2x a day for dry areas insulin glargine (LANTUS SOLOSTAR) 100 unit/mL (3 mL) inpn Inject 45 Units subcutaneously daily at bedtime. As needed if on steroids Insulin [place], Disposable, (BD ULTRAFINE III MINI PEN) 31 gauge x 3/16ANDquot; ndle Use once a day sitaGLIPtin (JANUVIA) 50 mg tablet Take 1 tablet by mouth once daily. SUMAtriptan (IMITREX) 50 mg tablet Take one(1) tablet daily as needed, at headache onset. Repeat in two(2) hours if needed. COMPOUNDED PRESCRIPTION 1. V44.2 Ileostomy status (HCC) (primary diagnosis)2. 555.1 Regional enteritis of large intestine (HCC)Ileostomy Supplies. 1. Pouches, 2. Planges, 3. Felipe seals, 4. Stoma adhesive, 5. Stoma powder, 6. Skin preps, 7. Adhesive remover wipes. Dispense 1 year supplies. oxyCODONE-acetaminophen (PERCOCET) 5-325 mg tablet Take 1 tablet by mouth every 8 hours as needed. tizanidine (ZANAFLEX) 4 mg ORAL tablet Take by mouth. . Takes 1 tablet at bedtime. COMPOUNDED PRESCRIPTION CAVILON no-sting barrier film. Prod# [id number] made by [employer] No current facility-administered medications for this visit. ALLERGIES Allergen Reactions - Dilaudid [Hydromorp* Swelling migraines - Levemir [Insulin De* Other: See Comments Urine turned dark and smelly - Methadone Swelling migraine - Morphine Swelling migraines - Remicade [Inflixima* Intolerance broke out in blisters with the 6th dose. - Ultram [Tramadol Hc* Swelling migraines PHYSICAL EXAMINATION BP 128/71 Pulse 91 Wt 76.2 kg (168 lb) LMP 02/03/2018 BMI 32.81 kg/m2 Body mass index is 32.81 kg/(m2). GENERAL: not in distress, well-appearing HEENT: anicteric sclerae, non-injected conjunctivae, full cheeks MUSCULOSKELETAL: no deformities, no fasciculations SKIN: dry, no cyanosis NEUROLOGIC: alert, oriented ASSESSMENT/PLAN Type 2 diabetes, uncontrolled Dyslipidemia Fatty liver - since 17 y/o Chronic intermittent steroid use Bone loss B12 deficiency, may be related to metformin Discussed pain management and avoidance of steroid shots Patient would like to continue seeing current pain mgmt physician Check BGs once a day, different times of day Lantus -can inc to 60 units hs Discussed GLP-1 agonist. Patient would prefer to continue current regimen Continue metformin Continue Januvia Diabetes health maintenance record reviewed. Hypoglycemia prevention, recognition and treatment reviewed Again not wanting to take statin, wants to go holistic Gut bacteria and metabolism discussed. Prescribed probiotic Low risk of fracture by FRAX No indication for bisphosphonate Calcium-rich foods - gave list in the past Continue vitamin D 2000 units daily Labs Annual DM -done 01/2018 BMD BONE DENSITY - 2018 Follow-up 6 months Contact us sooner if with concerns Follow-up with primary care physician for other medical issues. Temi Harrison M.D., M.P.H. March 06, 2018 3:44 PM Referring Provider: SOPHY HARRISON [[id number]] Allergies As of Date: 03/06/2018 Noted Allergy Reaction DILAUDID (HYDROMORPHONE (BULK)) 08/07/2006 7 - Swelling Comments: migraines LEVEMIR (INSULIN DETEMIR) 02/17/2014 14 - Other: See Comments Comments: Urine turned dark and smelly METHADONE 11/04/2013 7 - Swelling Comments: migraine MORPHINE 08/07/2006 7 - Swelling Comments: migraines REMICADE (INFLIXIMAB) 08/08/2006 5 - Intolerance Comments: broke out in blisters with the 6th dose. ULTRAM (TRAMADOL HCL) 04/07/2009 7 - Swelling Comments: migraines Date Reviewed: 03/06/2018 Reviewed by: John Morales Ma - Fully Assessed Reason for Visit: Diabetes [34] Cmt: 4 injections of steriods in the last 30 days, for blood sugar and will not decrease Reason For Visit History Recorded Primary Visit Diagnosis:Insulin-requiring or dependent type II diabetes mellitus (HCC) [E11.9, Z79.4] Other Visit Diagnoses:Non-alcoholic fatty liver disease [K76.0] Dyslipidemia [E78.5] Order(s):insulin glargine (LANTUS SOLOSTAR U-100 INSULIN) 100 unit/mL (3 mL) inpnInject 45 units and titrate to max to 60 units daily at bedtime as needed if on steroidsDisp: 15 mLRfl: 2 acidophilus-pectin, citrus (ACIDOPHILUS PROBIOTIC) 100 million cell-10 mg capTake 1 cap dailyDisp: 90 capsuleRfl: 2 Prescriptions as of 03/06/2018 Sig: INSULIN GLARGINE (U-100) 100 * Inject 45 units and titrate t* METFORMIN 1,000 MG TABLET Take 1 tablet by mouth twice * PREGABALIN 150 MG CAPSULE Take 1 capsule by mouth three* BLOOD-GLUCOSE METER KIT 1 Each as needed. to check bl* BLOOD SUGAR DIAGNOSTIC STRIPS For checking Blood Sugars onc* LANCETS 30 GAUGE To check Blood Sugars once a * RANITIDINE 150 MG TABLET take 1 tablet by mouth twice * CETIRIZINE 10 MG TABLET Take 1 tablet by mouth once d* CHOLECALCIFEROL (VITAMIN D3) * Take 1 capsule by mouth once * AMMONIUM LACTATE 12 % TOPICAL* Apply 1-2x a day for dry areas PEN NEEDLE, DIABETIC 31 GAUGE* Use once a day SITAGLIPTIN 50 MG TABLET Take 1 tablet by mouth once d* SUMATRIPTAN 50 MG TABLET Take one(1) tablet daily as n* COMPOUNDED PRESCRIPTION 1. V44.2 Ileostomy status (HC* OXYCODONE-ACETAMINOPHEN 5 MG-* Take 1 tablet by mouth every * TIZANIDINE 4 MG TABLET Take by mouth. . Takes 1 ta* COMPOUNDED PRESCRIPTION CAVILON no-sting barrier film* ACIDOPHILUS 100 MILLION CELL-* Take 1 cap daily Problem List As Of Date 03/06/2018 Noted Resolved REG ENTERITIS, LG INTEST [K50.10] INVALID FOR* RETENTION OF URINE UNSPEC [R33.9] INVALID FOR* Mixed hyperlipidemia [E78.2] INVALID FOR* Anemia, unspecified [D64.9] INVALID FOR*03/08/2012 LUMBAGO [M54.5] INVALID FOR* Nonspecific abnormal results of liver function *INVALID FOR*04/19/2011 More... Onychia and paronychia of toe [L03.039] INVALID FOR*02/18/2013 ILEOSTOMY STATUS [Z93.2] INVALID FOR* IMPAIRED GLUCOSE JUNE TEST [R73.02] INVALID FOR*04/16/2008 Insulin-requiring or dependent type II diabetes*INVALID FOR* Fibromyalgia [M79.7] INVALID FOR* More... Non-alcoholic fatty liver disease [K76.0] INVALID FOR* Mild dysplasia of cervix [N87.0] INVALID FOR*03/08/2012 Fibromyalgia [M79.7] 04/19/2011 Depression [F32.9] INVALID FOR* Eczematous dermatitis: hands [L30.9] INVALID FOR*02/18/2013 Xerosis cutis [L85.3] INVALID FOR*02/18/2013 Atopic eczema [L20.9] INVALID FOR* Other psoriasis [L40.8] INVALID FOR* Contact dermatitis and other eczema, due to uns*INVALID FOR*01/03/2017 Hypoglycemia [E16.2] INVALID FOR*03/08/2012 Migraine headache without aura [G43.009] INVALID FOR* Recurrent cold sores [B00.1] INVALID FOR* Sprain of wrist, left [S63.502A] INVALID FOR* Vitamin B12 deficiency [E53.8] INVALID FOR* Chronic rhinitis [J31.0] INVALID FOR* Other instructions from your clinician: Thank you for choosing the [facility] Department of Endocrinology, Diabetes and Metabolism. Being able to provide excellent health care has allowed us to be # 3 in the country according to [employer]. Did you know that you need to call 48 hours in advance of your scheduled visit, if you are unable to make your appointment? The [facility]inology [facility] Metabolism [facility] thanks you for your commitment, because patients not showing to their appointment results in a lost opportunity for patients to receive [facility] health care at the [facility]. To Cancel an appointment, please choose one of the following: - Call the Appointment Call Center at [phone] - From [employer], Go to Appointments ? Cancel Appts If cancelling, consider your need to reschedule to prevent further delays in your care. To Schedule an appointment, please choose one of the following: - Call the Appointment Call Center at [phone] - From [employer], Go to Appointments ? Request an Appt Prescriptions ordered this encounter Disp Refills Start End INSULIN GLARGINE (U-100) 100 UNIT/ML* 15 mL 2 03/06/2018 Sig: Inject 45 units and titrate to max to 60 units daily at bedtime as needed if on steroids ACIDOPHILUS 100 MILLION CELL-PECTIN,* 90 c* 2 03/06/2018 Sig: Take 1 cap daily Medications Discontinued During This Encounter miSOPROStol (CYTOTEC) 200 mcg tablet 4 ta* 0 11/23/2017 03/06/2018 Sig: Insert 2 tablets vaginally night prior to procedure and 2 tablets morning of procedure. Disc: Reason for discontinue is not on file. insulin glargine (LANTUS SOLOSTAR) 1* 15 mL 0 10/12/2017 03/06/2018 Class: Med Update Route: SUBCUTANEOUS Sig: Inject 45 Units subcutaneously daily at bedtime. As needed if on steroids Disc: Reason for discontinue is not on file. Disposition: Return in about 6 months (around 09/05/2018). Follow-up and Disposition History Recorded Encounter Status:Closed by MONY HARRISON MD on 03/06/18 ALBUMIN/CREAT RATIO Collected: 01/23/2018 Status: F Source: [place] 9:57 AM [facility] REPOSITORY TYPE CODE TESTS RESULT OUT OF REFERENCE UNITS RANGE LAB UCRR 20-300 mg/dL 81.5 Creatinine,Ur ine,Ran LAB UALBR 0.0-23.0 mg/L <12.0 Albumin Urine Random LAB UALBCR 0-30 mg/g Not Albumin/Creat calculated Ratio Performed By: #### UACR #### [facility] [address] [address] HEMOGLOBIN A1C Collected: 01/23/2018 Status: F Source: [place] 9:56 AM [facility] REPOSITORY TYPE CODE TESTS RESULT OUT OF REFERENCE UNITS RANGE LAB HGBA1C 4.3-5.6 % High Hemoglobin A1c 7.1 LAB HBA0 mg/dL Est. Average Glucose 157 Result Comment: eAG: (Estimated average glucose) is a calculated value from HgbA1c and is player services representative of the average blood glucose level in the last 2-3 month period. Performed By: #### HBA1C, ALT, AST, BMP, LIPB, IRON, B12, VITD #### [facility] [address] [address] ALT Collected: 01/23/2018 Status: F Source: [place] 9:56 AM [facility] REPOSITORY TYPE CODE TESTS RESULT OUT OF RANGE REFERENCE UNITS LAB ALT 7-38 U/L High ALT 86 Performed By: #### HBA1C, ALT, AST, BMP, LIPB, IRON, B12, VITD #### [facility] [place] [address] [address] AST Collected: 01/23/2018 Status: F Source: [place] 9:56 AM [facility] REPOSITORY TYPE CODE TESTS RESULT OUT OF RANGE REFERENCE UNITS LAB AST 13-35 U/L High AST 70 Performed By: #### HBA1C, ALT, AST, BMP, LIPB, IRON, B12, VITD #### [facility] [address] [place] [id number] BASIC METABOLIC PANL Collected: 01/23/2018 Status: F Source: [place] 9:56 AM [facility] REPOSITORY TYPE CODE TESTS RESULT OUT OF REFERENCE UNITS RANGE LAB GLU 74-99 mg/dL High Glucose 161 Result Comment: The [place] Diabetes Association (ADA) provides guidance for cutoff values for fasting glucose and random glucose. The ADA defines fasting as no caloric intake for at least 8 hours. Fas ting plasma glucose results between 100 to 125 mg/dL indicate increased risk for diabetes (prediabetes). Fasting plasma glucose results greater than or equal to 126 mg/dL meet the criteria for diagnosis of diabetes. In the absence of unequivocal hyperglycemia, results should be confirmed by repeat testing. In a patient with classic symptoms of hyperglycemia or hyperglycemic crisis, random plasma glucose results greater than or equal to 200 mg/dL meet the criteria for diagnosis of diabetes. Reference: Standards of Medical Care in Diabetes 2016, [place] Diabetes Association. Diabetes Care. 2016.39(Suppl 1). LAB BUN 7-21 mg/dL BUN 10 LAB CRET 0.58-0.96 mg/dL Creatinine Low 0.54 LAB NA 136-144 mmol/L Sodium 137 LAB K 3.7-5.1 mmol/L Potassium 3.9 LAB CL 97-105 mmol/L Chloride 100 LAB CO2 22-30 mmol/L CO2 Low 21 LAB AGAP 9-18 mmol/L Anion Gap 16 LAB CA 8.5-10.2 mg/dL Calcium, Total 9.8 LAB GFRAA eGFR- Amer. >60 LAB GFRNAA . eGFR-All Other Races >60 Result Comment: eGFR (Estimated GFR) Units of measure: mL/min/1.73 meters squared eGFR is derived from the reexpressed MDRD Study equation using the following parameters: serum creatinine, age, gender and race. The creatinine assay has been calibrated to be traceable to IDMS. An eGFR <60 mL/min/1.73m2 for >3 months is consistent with chronic kidney disease. Refer to KDOQI guidelines for clinical interpretation. In patients with unstable renal function, e.g. those with acute kidney injury, the eGFR may not accurately reflect actual GFR. Performed By: #### HBA1C, ALT, AST, BMP, LIPB, IRON, B12, VITD #### [facility] [address] [place], [place] [address] LIPID PANEL, BASIC Collected: 01/23/2018 Status: F Source: [place] 9:56 AM [facility] REPOSITORY TYPE CODE TESTS RESULT OUT OF REFERENCE UNITS RANGE LAB CHOL <200 mg/dL Cholesterol High 235 Result Comment: <200 mg/dL, Desirable 200-239 mg/dL, Borderline high >239 mg/dL, High LAB TRIGLY <150 mg/dL Triglyceride 148 Result Comment: <150 mg/dL, Normal 150-199 mg/dL, Borderline high 200-499 mg/dL, High >499 mg/dL, Very high LAB HDL >39 mg/dL HDL-Cholesterol 52 Result Comment: 40-59 mg/dL, Acceptable >59 mg/dL, High: Negative risk factor for coronary heart disease <40 mg/dL, Low: Positive risk factor for coronary heart disease LAB LDL <100 mg/dL LDL-Cholesterol High 153 Result Comment: <100 mg/dL, Optimal 100-129 mg/dL, Near optimal/above optimal 130-159 mg/dL, Borderline high 160-189 mg/dL, High >189 mg/dL, Very high Secondary prevention optimal LDL Cholesterol levels are recommended to be < 70 mg/dL LAB NONHDL <130 mg/dL Non HDL High Cholesterol 183 Result Comment: <130 mg/dL, Optimal 130-159 mg/dL, Near optimal/above optimal 160-189 mg/dL, Borderline high 190-219 mg/dL, High >219 mg/dL, Very high Secondary prevention optimal non HDL Cholesterol levels are recommended to be < 100 mg/dL LAB FT hrs Fasting Time 10 LAB VLDL <30 mg/dL High VLDL Cholesterol 30 LAB TCHDL <5.10 TC:HDL Ratio 4.52 LAB LDLHDL <2.54 High LDL:HDL Ratio 2.94 Result Comment: Reference: 1. National Cholesterol Education Program ATP III Guideline At-A-Glance Quick Desk Reference: National Heart, Lung, and Blood [facility]. National Institutes of Health. 2001: NIH Publication No. 01-3305. 2. An International Atherosclerosis Society position paper: global recommendations for the management of dyslipidemia: executive summary, Atherosclerosis. 2014: 232(2):410-413. Performed By: #### HBA1C, ALT, AST, BMP, LIPB, IRON, B12, VITD #### [facility] [place] [address] [place], [place] [address] IRON AND TIBC Collected: 01/23/2018 Status: F Source: [place] 9:56 AM [facility] REPOSITORY TYPE CODE TESTS RESULT OUT OF REFERENCE UNITS RANGE LAB IRN 41-186 ug/dL Iron 103 LAB TIBC 232-386 ug/dL TIBC 285 LAB SAT 15-57 % Transferrin Saturatn 36 Performed By: #### HBA1C, ALT, AST, BMP, LIPB, IRON, B12, VITD #### [facility] [place] [address] [place], [place] [address] VITAMIN B12 Collected: 01/23/2018 Status: F Source: [place] 9:56 AM [facility] REPOSITORY TYPE CODE TESTS RESULT OUT OF REFERENCE UNITS RANGE LAB B12 232-1245 pg/mL Vitamin B12 932 Performed By: #### HBA1C, ALT, AST, BMP, LIPB, IRON, B12, VITD #### [facility] [place] [address] [place], [place] [address] VITAMIN D 25 HYDROXY Collected: 01/23/2018 Status: F Source: [place] 9:56 AM [facility] REPOSITORY TYPE CODE TESTS RESULT OUT OF REFERENCE UNITS RANGE LAB VITD 31.0-80.0 ng/mL Vitamin D 25 32.3 Hydroxy Result Comment: Classification of 25 [place] Vitamin D status: Insufficiency/Moderate Deficiency: < or = 30 ng/mL Sufficiency/Optimal Levels: 31 to 80 ng/mL Toxicity: > 100 ng/mL Test performed by chemiluminescent immunoassay. Performed By: #### HBA1C, ALT, AST, BMP, LIPB, IRON, B12, VITD #### [facility] [place] [address] [place], [place] [address] CERV SPINE 2 OR 3 Observed: 01/17/2018 Status: F Source: [place] VIEWS 3:59 PM [facility] REPOSITORY [facility] Imaging Services [address] [place] [address] Cerv Spine 2 or 3 Views MR#: [id number] Acct: [id number] Name: VANDANA LEZAMA Rep #: [id number] : 1975 F 42 From: Jacob Antonio MD PCP: Grayson Phan MD Status: REG CLI Study: Cerv Spine 2 or 3 Views Date of Exam: 01/17/18 Exam# [id number] Ordering Dr: Michelle Stern MD STUDY: X-RAY - CERVICAL SPINE REASON FOR EXAM: Female, 42 years old. Neck pain TECHNIQUE: 3 view(s) of the cervical spine were obtained. COMPARISON: 08/02/2017 FINDINGS: There is no evidence of fracture or dislocation in the cervical spine. The vertebral body heights and disc spaces are well-maintained. There are no significant degenerative changes. The prevertebral soft tissues are unremarkable. There is no radiodense foreign body. RAD/Cerv Spine 2 or 3 Views IMPRESSION: No fracture or dislocation in the cervical spine. Electronically Signed: Jacob Antonio, at 20:35 EST Tel , Service support , CC: Michelle Stern MD; Grayson Phan MD Senior Project Manager Engineering: Signed THORACIC SPINE 2 Observed: 01/17/2018 Status: F Source: [place] VIEWS 3:59 PM [facility] REPOSITORY [facility] Imaging Services [address] [place] [id number] Thoracic Spine 2 Views MR#: [id number] Acct: [id number] Name: VANDANA LEZAMA Rep #: [id number] : 1975 F 42 From: Jacob Antonio MD PCP: Grayson Phan MD Status: REG CLI Study: Thoracic Spine 2 Views Date of Exam: 01/17/18 Exam# [id number] Ordering Dr: Michelle Stern MD STUDY: X-RAY - THORACIC SPINE REASON FOR EXAM: Female, 42 years old. Pain TECHNIQUE: 2 view(s) of the thoracic spine were obtained. COMPARISON: 08/02/2017 FINDINGS: There is no evidence of fracture or dislocation in the thoracic spine. The vertebral body heights and disc spaces are well-maintained. There are no significant degenerative changes. RAD/Thoracic Spine 2 Views IMPRESSION: No fracture or dislocation in the thoracic spine. Electronically Signed: Jacob Antonio, at 20:36 EST Tel , Service support , CC: Michelle Stern MD; Grayson Phan MD Senior Project Manager Engineering: Signed ALLERGIES ALLERGIES DATE TYPE / NAME / CODE REACTION SEVERITY SOURCE CODE 12/05/2018 Drug morphine/[id number] Swelling Unknown [place] Allergy/41 (RXNORM) [facility] [id number]([facility]) Repository 12/05/2018 Drug infliximab/[id number] Rash Unknown [place] Allergy/41 40(RXNORM) [facility] [id number]([facility]) Repository 02/17/2014 DRUG INSULIN DETEMIR OTHER: SEE C [place] INGREDI/41 [facility] Main [id number]([facility]) Repository 11/04/2013 [facility] [id number]([facility]) Repository 04/07/2009 DRUG TRAMADOL HCL SWELLING [place] INGREDI/41 [facility] Main [id number]([facility]) Repository 08/08/2006 DRUG [facility]AB [facility]OL[facility] [id number]([facility]) Repository 08/07/2006 DRUG/[id number] HYDROMORPHONE SWELLING [place] 1003([facility] (BULK[facility] Main D CT) [place] Repository 08/07/2006 DRUG MORPHINE SWELLING [facility]/41 [facility] Main [id number]([facility]) Repository ENCOUNTERS ENCOUNTERS ADMIT/DISCHARGE ACCOUNT ADMITTING ENCOUNTER LOCATION SOURCE NUMBER CLASS 12/06/2018/12/07/19 [id number] Ambulatory [place] 19 [facility] Main [place] Repository 12/05/2018/12/05/19 [id number] Ambulatory BMSBuilding:B [place] 19 [facility] Repository 12/04/2018 [id number] Ambulatory [facility] ing:LAB Repository 11/29/2018/11/29/19 [id number] Ambulatory [facility] 19 [facility] Main [place] Repository 11/29/2018/11/30/19 [id number] Ambulatory [place] 19 [facility] Main [place] Repository 11/27/2018/11/28/19 [id number] Ambulatory [place] 19 [facility] Main [place] Repository 11/26/2018/11/26/19 [id number] Ambulatory [facility] Main [place] Repository 10/16/2018/10/17/20 [id number] Ambulatory [place] 18 [facility] Main [place] Repository 09/26/2018/09/27/20 [id number] Ambulatory [place] 18 [facility] Main [place] Repository 09/24/2018/09/25/20 [id number] Ambulatory [place] 18 [facility] Main [place] Repository 09/20/2018/09/20/20 [id number] Ambulatory BMSBuilding:B [place] 18 [place] [facility] Repository 09/06/2018/09/11/20 [id number] Ambulatory [place] 18 [facility] Main [place] Repository 09/06/2018/09/07/20 [id number] Ambulatory [address] Main [place] Repository 08/30/2018/08/30/20 [id number] Ambulatory [place] 18 [facility] [place] Repository 08/30/2018/08/31/20 [id number] Ambulatory [place] [facility] [place] Repository 08/30/2018/08/31/20 [id number] Ambulatory [place] [facility] [place] Repository 08/14/2018/08/16/20 [id number] Ambulatory [place] 18 [facility] [place] Repository 08/14/2018/08/14/20 [id number] Emergency [place] ing:ED Repository 08/14/2018/08/14/20 [id number] Ambulatory BMSBuilding:B [place] 18 MS.CAMILA [facility] Hospital Repository 08/09/2018/08/09/20 [id number] Ambulatory [address] Main [place] Repository 08/07/2018/08/07/20 [id number] Ambulatory [place] 18 [facility] [place] Repository 08/07/2018/08/07/20 [id number] Ambulatory [place] 18 [facility] [place] Repository 08/06/2018/08/06/20 [id number] Ambulatory [address] Repository 08/06/2018/08/07/20 [id number] Ambulatory [address] Repository 08/02/2018/08/02/20 [id number] Ambulatory [address] ing:PT Repository 06/28/2018/06/28/20 [id number] Ambulatory BMSBuilding:B [place] 18 MS.[facility] Repository 06/26/2018/06/28/20 [id number] Ambulatory [address] Repository 05/24/2018/05/25/20 [id number] Ambulatory [address] Repository 03/06/2018 [id number] Ambulatory [facility] Repository 02/27/2018/02/28/20 [id number] Ambulatory BMSBuilding:B [place] 18 MS.[facility]ly [facility] Repository 01/23/2018/01/24/20 [id number] Ambulatory [address] Repository 01/17/2018 [id number] [facility] PAYERS PAYERS ENCOUNTER GUARANTOR PAYER SUBSCRIBER SOURCE 12/05/2018 VANDANA F Primary VANDANA F [place] [id number] SOL Insurance:HUMANA SMITHDOB: [place] PPOPolicy [id number] Hospital [address]Dsm: (419) Number: Repository [phone] (HP) [id number] Date:3013-31-14HP [address] [place] [phone]: 12/05/2018 Secondary VANDANA F [place] Insurance:MYCARE [facility] SMITHDOB: Community *IN [facility] [id number] Hospital Number: Repository [id number] Date:0311-55-83EAIB CLAIMS DEPO [address] [place] [address]UC: 12/05/2018 Tertiary NOT GIVENUNK [place] Insurance:SELF PAY [facility] Number: Effective Repository Date:2018-12-04 12/04/2018 VANDANA F Primary VANDANA F [place] [id number] SOL Insurance:HUMANA SMITHDOB: [place] PPOPolicy [id number] Hospital [address]Dta: (419) Number: Repository [phone] (HP) [id number] Date:0289-51-99DU [address] [address]QT: 12/04/2018 Secondary VANDANA F [place] Insurance:MYCARE [facility] SMITHDOB: Community *IN [facility] [id number] Hospital Number: Repository [id number] Date:2981-18-43VXZK CLAIMS DEPTPO [address] [place] [address]ET: 12/04/2018 Tertiary NOT GIVENUNK [place] Insurance:SELF PAY [facility] Hospital Number: Effective Repository Date:2018-12-04 09/20/2018 VANDANA F Primary VANDANA F [place] [id number] SOL Insurance:HUMANA SMITHDOB: [place] PPOPolicy [id number] Hospital [address]Zha: (419) Number: Repository [phone] (HP) [id number] Date:8984-89-96OQ [address] [address]QT: 09/20/2018 Secondary VANDANA F [place] Insurance:MYCARE [facility] SMITHDOB: Community *IN [facility] [id number] Hospital Number: Repository [id number] Date:2879-89-49NILK CLAIMS DEPTPO [address] [place] [address]TG: 09/20/2018 Tertiary NOT GIVENUNK [place] Insurance:SELF PAY [facility] Number: Effective Repository Date:2018-09-20 08/14/2018 VANDANA F Primary VANDANA F [place] [id number] SOL Insurance:HUMANA SMITHDOB: [place] PPOPolicy [id number] Hospital [address]Ina: (419) Number: Repository [phone] (HP) [id number] Date:6865-95-34EE [address] [address]RN: 08/14/2018 Secondary VANDANA F [place] Insurance:MYCARE [facility] SMITHDOB: Community *IN [facility] [id number] Hospital Number: Repository [id number] Date:9498-52-77IXFM CLAIMS DEPTPO [address] [place] [phone]: 08/14/2018 Tertiary NOT GIVENUNK [place] Insurance:SELF PAY [facility] Number: Effective Repository Date:2018-08-14 08/14/2018 VANDANA F Primary VANDANA F [place] [id number] SOL Insurance:HUMANA SMITHDOB: [place] PPOPolicy [id number] Hospital [address]Ufe: (419) Number: Repository [phone] () [id number] Date:7003-21-00SB [address] [address]BM: 08/14/2018 Secondary VANDANA F [place] Insurance:MYCARE [facility] SMITHDOB: Community *IN [facility] [id number] Hospital Number: Repository [id number] Date:4261-74-61LGBQ CLAIMS DEPTPO [address] [place] [phone]: 08/14/2018 Tertiary NOT GIVENUNK [place] Insurance:SELF PAY [facility] Number: Effective Repository Date:2018-08-14 08/02/2018 VANDANA F Primary VANDANA F [place] [id number] [place] Insurance:HUMANA SMITHDOB: [place] PPOPolicy [id number] Hospital [address]Uak: (419) Number: Repository [phone] () [id number] Date:9090-37-86ED [address] [address]BA: 08/02/2018 Secondary VANDANA F [place] Insurance:MYCARE [facility] SMITHDOB: Community *IN [facility] [id number] Hospital Number: Repository [id number] Date:2851-26-77BOVF CLAIMS DEPTPO [address] [place] [phone]: 08/02/2018 Tertiary NOT GIVENUNK [place] Insurance:SELF PAY [facility] Number: Effective Repository Date:2018-06-28 06/28/2018 VANDANA F Primary VANDANA F [place] [id number] SOL Insurance:HUMANA SMITHDOB: [place] MED[place] [facility] [id number] Hospital [address]Mie: (419) Number: Repository [phone] () [id number] Date:9740-08-40WJ [address] [address]NF: 06/28/2018 Secondary VANDANA F [place] Insurance:MYCARE [facility] SMITHDOB: Community *IN [facility] [id number] Hospital Number: Repository [id number] Date:2564-50-80OMJR CLAIMS DEPTPO [address] [address]PE: 06/28/2018 Tertiary NOT GIVENUNK [place] Insurance:SELF PAY [facility] Number: Effective Repository Date:2018-06-28 02/27/2018 Vandana F Primary Vandana F [place] [id number] [place] Insurance:MYCARE [facility] SmithDOB: Community [place] *IN [facility] [id number] Hospital [address]Wys: (419) Number: Repository [phone] () [id number] Date:5359-98-75ED [address] [address]MS: 02/27/2018 Secondary NOT GIVENUNK [place] Insurance:SELF PAY [facility] Number: Effective Repository Date:2018-02-27 01/17/2018 Vandana F Primary Vandana F [place] [id number] [place] Insurance:MYCARE [facility] SmithDOB: Community [facility] *IN [facility] [id number] Hospital [address]Xxr: (419) Number: Repository [phone] (HP) [id number] Date:0465-49-55EM[address] [address]TO: 01/17/2018 Secondary NOT GIVENUNK [place] Insurance:SELF PAY [facility]: Effective Repository Date:2018-01-17
== END ==
PROVIDERS: Family Provider Internal Medicine; PCP Internal Medicine; Referring Provider Anesthesiology Pain Medicine; Visit Provider Anesthesiology Pain Medicine
DX: F11.20 Opioid dependence, uncomplicated (principal)
CPT/HCPCS: 80307

== ENCOUNTER → 2018-12-31 06:35 | Outpatient (CLI) | payer MEDICARE, MEDICAID, SELFPAY ==
--- NOTE | 2018-12-31 06:43 | MRI_ITS ---
STUDY: MRI RIGHT SHOULDER REASON FOR EXAM: Shoulder pain for 2 years, limited range of motion. TECHNIQUE: Standardized fat and water weighted pulse sequences were obtained in all 3 orthogonal planes. COMPARISON: Radiographs 05/23/2016. FINDINGS: There is mild supraspinatus tendinosis (T2 coronal images 13-15) without discrete tendon tear. Normal infraspinatus tendon. Normal subscapularis tendon. Normal teres minor tendon. Normal supraspinatus muscle. Normal infraspinatus muscle. Normal subscapularis muscle. Normal teres minor muscle. Normal glenohumeral articulation. Normal humeral head and visualized proximal humerus. Normal biceps labral complex. Normal intracapsular long biceps tendon. Normal labrum. Normal capsulo- ligamentous complex. Normal acromioclavicular articulation. There is a Type II morphology (curved), with a neutral orientation. There is no subacromial-subdeltoid bursal fluid. There is thickening of the coracoacromial ligament (T2 sagittal images 12, 13). Normal deltoid muscle. Normal trapezius muscle. MRI/Upper Ext Joint Only(Routine) IMPRESSION: Mild supraspinatus tendinosis without demonstrated rotator cuff tear. Thickening of the coracoacromial ligament. Electronically Signed: Jeison York MD at 9:04 EST Tel , Service support ,
--- NOTE | 2018-12-31 06:45 | MRI_ITS ---
STUDY: MRI LEFT SHOULDER REASON FOR EXAM: Shoulder pain for 2 years, limited range of motion. TECHNIQUE: Standardized fat and water weighted pulse sequences were obtained in all 3 orthogonal planes. COMPARISON: MRI images 08/10/2017 and radiographs 05/23/2016. FINDINGS: There is mild supraspinatus tendinosis (T2 coronal image 8) without interval development of discrete tendon tear. Normal infraspinatus tendon. Normal subscapularis tendon. Normal teres minor tendon. Normal supraspinatus muscle. Normal infraspinatus muscle. Normal subscapularis muscle. Normal teres minor muscle. Normal glenohumeral articulation. There is a very small cyst in the posterior aspect of the greater tuberosity. Normal biceps labral complex. Normal intracapsular long biceps tendon. Normal labrum. Normal capsulo- ligamentous complex. Normal acromioclavicular articulation. There is a Type II morphology (curved), with a neutral orientation. There is no subacromial-subdeltoid bursal fluid. There is thickening of the coracoacromial ligament (T2 sagittal images 10, 11). Normal deltoid muscle. Normal trapezius muscle. MRI/Upper Ext Joint Only(Routine) IMPRESSION: Mild supraspinatus tendinosis without demonstrated rotator cuff tear. Thickening of the coracoacromial ligament. Electronically Signed: Jeison York MD at 9:02 EST Tel , Service support ,
== END ==
PROVIDERS: Family Provider Internal Medicine; PCP Internal Medicine; Referring Provider Physician Assistant; Visit Provider Physician Assistant
DX: M75.41 Impingement syndrome of right shoulder (principal); M75.42 Impingement syndrome of left shoulder
CPT/HCPCS: 73221

== ENCOUNTER 2019-07-14 04:48 | Emergency (ER) | payer MEDICARE, MEDICAID, SELFPAY ==
[2019-07-14 04:50] VITALS: BP 169/69; PULSE 68; RESP 20; TEMP 36.9; O2SAT 97; BMI 35.3
--- NOTE | 2019-07-14 04:55 | CT_ITS ---
STUDY: CT ABDOMEN AND PELVIS WITHOUT CONTRAST REASON FOR EXAM: Female, 43 years old. Right flank pain RADIATION DOSAGE (If Supplied By Facility): CTDIvol = ( 15.94 ) mGy, DLP = ( 756.48 ) mGycm TECHNIQUE: Transaxial images were obtained from the dome of the diaphragm to the symphysis pubis without oral contrast, and without intravenous contrast. Sagittal and coronal images were reconstructed. Individualized dose optimization techniques were used for this CT. COMPARISON: None. FINDINGS: Evaluation is limited by lack of IV and oral contrast Atelectasis/scarring within the lungs. There is a tiny pericardial effusion. There is hepatomegaly with diffuse hepatic enlargement. Otherwise grossly unremarkable liver. Normal unenhanced gallbladder and extrahepatic biliary system. Normal unenhanced spleen. Normal unenhanced pancreas. Normal unenhanced bilateral adrenal glands. There is right hydroureter and hydronephrosis with perinephric fatty stranding. There is a 2 mm right UVJ stone. No left hydronephrosis or nephrolithiasis identified. Otherwise the bilateral unenhanced kidneys are grossly unremarkable. Normal visualized stomach. Evaluation of bowel is limited by lack of contrast material. There is a right lower quadrant ostomy present. There is a parastomal hernia. There is no dilated loops of bowel by CT criteria. No free air or free fluid is seen. No CT evidence for acute diverticulitis. There is non-visualization of the appendix. There is diffuse atherosclerotic calcification of the abdominal aorta, without a demonstrated aneurysm. Cannot evaluate for dissection due to lack of IV contrast material. Nonspecific subcentimeter short axis mesenteric and retroperitoneal lymph nodes. Normal urinary bladder. There is a small fat-containing umbilical hernia. Normal osseous structures. CT/Abdomen/Pelvis without Cont IMPRESSION: Right UVJ stone causing mild right hydroureter and hydronephrosis. There is moderate renal pelvis dilatation. There is mild perinephric stranding. There is a right lower quadrant ostomy present. There is a parastomal hernia present. No bowel dilatation by CT criteria. Tiny pericardial effusion. Nonvisualization of a normal appendix. Other findings as discussed above. Electronically Signed: Darien Douglas, at 6:06 EDT Tel , Service support ,
--- NOTE | 2019-07-14 04:56 | ED.DCSUM_ITS ---
History of Present Illness Chief Complaint: Flank Pain Informant: Patient Onset: Today Context: Sudden Onset Timing: Continuous Current Severity: Moderate Maximum Severity: Severe Narrative: The patient presents to the emergency department with sudden onset right flank pain. Patient was in her normal state of health. States she woke suddenly at about 3 in the morning with a sharp, stabbing pain in her right flank. She was nauseated and had a few bouts of vomiting. Patient does have a history of Crohn's disease which is in remission. She does have ileostomy. She states that she is had normal output in her ileostomy. She denies any fevers or chills. She denies any blood in the emesis. She denies any prior history of kidney stone. She is otherwise been in her normal state of health. Prior similar symptoms: No Recent Illness/Hospitalization: No Past Medical History - Allergies and Home Meds Allergies/Adverse Reactions: Allergies infliximab [From Remicade] Allergy (Verified 07/14/19 04:49) Rash morphine Allergy (Verified 07/14/19 04:49) Swelling Primary Care Physician: Grayson Phan MD [Primary Care Provider] - Prior records reviewed: Yes Past Medical History: - - Crohn's disease Surgical History: - Lives: With Family Smoking Status: Never smoker Alcohol: None Review of Systems General: Denies: Chills, Fever, Sweats Eyes: Denies: Visual changes - bilaterally, Diplopia ENT: Denies: Rhinorrhea, Sore throat Cardiovascular: Denies: Chest pain, Palpitations Respiratory: Denies: Dyspnea, Cough, Dyspnea on exertion Gastrointestinal: Reports: Abdominal pain, Nausea, Vomiting. Denies: Diarrhea, Melena, Hematochezia Genitourinary: Denies: Dysuria, Hematuria, Frequency Musculoskeletal: Denies: Myalgias, Arthralgias, Back pain, Extremity Pain Skin: Denies: Rash, Wounds Neurological: Denies: Headache, Weakness, Numbness Physical Exam Vital Signs/Narrative: Vital Signs Temp Pulse Resp BP Pulse Ox 07/14/19 04:50 98.4 F 68 20 H 169/69 H 97 Inital Vital Signs reviewed: Yes General: Well nourished, Well developed, No Acute Distress Head: Normocephalic, Atraumatic Eyes: Perrl, EOMI ENT: Moist mucous membranes, No rhinorrhea Neck: Supple, Nontender Cardiovascular: Regular rate, Regular rhythm, No murmurs Respiratory: No distress, CTA bilaterally, Chest nontender Abdomen: Soft, Nontender, Nondistended, Normal bowel sounds Back: Nontender, Normal Inspection Extremities: Nontender, No edema Skin: Normal color, No rash Neurological: Alert, Oriented x3, Cranial nerves II-XII grossly intact, Normal Strength, Normal Sensation Psychological: Normal affect, Normal Mood Diagnostic/Tx/Re-eval Clinical Impression(s) from Imaging Studies Abdomen/Pelvis CT 07/14/19 04:55 IMPRESSION: Right UVJ stone causing mild right hydroureter and hydronephrosis. There is moderate renal pelvis dilatation. There is mild perinephric stranding. There is a right lower quadrant ostomy present. There is a parastomal hernia present. No bowel dilatation by CT criteria. Tiny pericardial effusion. Nonvisualization of a normal appendix. Other findings as discussed above. Electronically Signed: Darien Macedoford, at 6:06 EDT Tel , Service support , Abnormal Lab Results 07/14/19 07/14/19 07/14/19 05:10 05:10 05:23 WBC 6.5 RBC 4.73 Hgb 13.8 Hct 41.9 MCV 88.6 MCH 29.2 MCHC 32.9 RDW Std Deviation 39.5 RDW Coeff of [place] 12.1 Plt Count 189 MPV 11.3 Immature Gran % (Auto) 0.500 Neut % (Auto) 42.1 L Lymph % (Auto) 46.7 H [place] % (Auto) 8.1 Eos % (Auto) 1.8 Baso % (Auto) 0.8 Absolute Neuts (auto) 2.8 Absolute Lymphs (auto) 3.05 Nucleated RBC % 0 Sodium 145 Potassium 3.8 Chloride 114 H Carbon Dioxide 21.0 Anion Gap 10 BUN 11 Creatinine 0.99 Estim Creat Clear Calc 92.38 Est GFR (MDRD) Af Amer 78 Est GFR (MDRD) Non-Af 65 BUN/Creatinine Ratio 11.1 Glucose 219 H Calcium 9.1 Urine Color Yellow Urine Clarity Sl. Cloudy Urine pH 5.0 Ur Specific [place] 1.020 Urine Protein 15 H Urine Glucose (UA) 1000 H Urine Ketones Negative Urine Occult Blood 25 H Urine Nitrite Negative Urine Bilirubin Negative Urine Urobilinogen Normal Ur Leukocyte Esterase Negative Urine RBC 0-5 SEEN Urine WBC 0 SEEN Ur Squamous Epith Cells 0 SEEN Urine Bacteria 0 SEEN Urine Mucus 0 SEEN - Medical Decision Making The patient symptoms are consistent with kidney stone. IV was established. She was given fluids, antiemetics, and analgesics. She did have some improvement of her pain. Patient underwent CT imaging. There is a 2 mm stone right at the UVJ causing mild hydro-on the right side. This corresponds with her pain. Her urine shows no evidence of infection. Patient's pain returned. Her pain was addressed. She is already on outpatient analgesics. I do feel that if her pain is safely addressed, she can be discharged home. The patient is comfortable with this plan of care. Impression 1. Urolithiasis ED Disposition - Plan for ED Patient: Instructions: KIDNEY STONE w/ Colic Referrals: Grayson Phan MD [Primary Care Provider] -
[2019-07-14] MEDS: proMETHazine 25 MG/ML Syringe 12.5 MG IV (05:17)
[2019-07-14] MEDS: fentaNYL 100 MCG/2 ML Ampul 50 MCG IV ×2 (05:17→07:08)
[2019-07-14] MEDS: Ketorolac 30 MG/ML Syringe IV (05:17)
[2019-07-14] MEDS: 0.9% Normal Saline 1,000 ML 250 ML IV (05:18)
[2019-07-14 05:23] LABS: Absolute Lymphocyte Count 3.05 X10^3/uL (0.83-4.51); Absolute Neutrophil Count 2.8 X10^3/uL (2.0-7.7); Basophil# 0.05 X10^3/uL; Basophil% 0.8 % (0-1); Eosinophil# 0.12 X10^3/uL; Eosinophils% 1.8 % (0-5); Hematocrit 41.9 % (37-47); Hemoglobin 13.8 g/dL (12.0-15.0); Lymphocyte # 3.05 X10^3/ul (4.0); Lymphocyte % 46.7 % (19-41); Mean Corp Hgb Conc 32.9 g/dL (32-36); Mean Corpuscular Hgb 29.2 pg (27.0-32.0); Mean Corpuscular Volume 88.6 fL (81-99); Mean Platelet Vol. 11.3 fl (6.2-12.0); Monocyte# 0.53 X10^3/uL; Monocyte% 8.1 % (0-10); NRBC Flagged by Analyzer 0 % (0-5); Neutrophil # 2.75 X10^3/uL (2.7-7.7); Neutrophil % 42.1 % (47-70); Platelet Count 189 K/mm3 (150-450); RBC Distribution Width CV 12.1 % (11.6-14.6); RBC Distribution Width SD 39.5 fl (35.1-43.9); Red Blood Count 4.73 M/mm3 (4.2-5.4); White Blood Count 6.5 K/mm3 (4.4-11.0)
[2019-07-14 05:36] LABS: Bacteria 0 SEEN /hpf (None Seen); Mucous, Urine 0 SEEN /hpf (<or=2+); Squamous Epithelial Cells - UA 0 SEEN /hpf (5-10); White Blood Cells 0 SEEN /hpf (0-5)
[2019-07-14 05:37] LABS: Color, Urine Yellow (Yellow); Glucose, Dipstick 1000 mg/dl (Normal); Ketone-Dipstick Negative (Negative); Leukocyte Esterase-Dipstick Negative /ul (Negative); Nitrite-Dipstick Negative (Negative); Occult Blood-Urine 25 /ul (Negative); Protein-Dipstick 15 mg/dl (Negative); Urine Bilirubin Dipstick Negative (Negative); Urine Clarity Sl. Cloudy (Clear); Urine Urobilinogen Normal (Normal)
[2019-07-14 05:56] LABS: Anion Gap 10 (5-15); BUN 11 mg/dL (7-18); BUN/Creat Ratio 11.1 RATIO (10-20); Calcium,Total 9.1 mg/dL (8.5-10.1); Chloride 114 mmol/L (98-107); Creatinine, Serum 0.99 mg/dL (0.55-1.02); EST Glomerular Filtration Rate 65 mL/min (>60); Est Glom Filt Rate - Afr Amer 78 mL/min (>60); Estimated Creatinine Clearance 92.38 ml/min; Glucose 219 mg/dL (74-106); Potassium 3.8 mmol/L (3.5-5.1); Sodium Level 145 mmol/L (136-145)
[2019-07-14 06:26] LABS: Red Blood Cells-Urine 0-5 SEEN /hpf (0-5)
[2019-07-14] MEDS: proMETHazine 25 MG/ML Syringe 6.25 MG IV (07:08)
[2019-07-14] MEDS: DiphenhydrAMINE 50 MG/ML Syringe 25 MG IV (07:08)
[2019-07-14 07:18] VITALS: BP 168/84; PULSE 74; RESP 18; O2SAT 99
[2019-07-14 09:09] VITALS: BP 154/87; PULSE 74; RESP 14; TEMP 36.7; O2SAT 97
== END 2019-07-14 09:10 | disposition home or self-care (01) ==
LOC: ED 05:20
PROVIDERS: Emergency Provider Emergency Medicine; Family Provider Internal Medicine; PCP Internal Medicine
DX: N13.2 Hydronephrosis with renal and ureteral calculous obstruction (principal); K43.5 Parastomal hernia without obstruction or gangrene; I31.3 Pericardial effusion (noninflammatory); K50.90 Crohn's disease, unspecified, without complications; Z93.2 Ileostomy status; Z79.899 Other long term (current) drug therapy
CPT/HCPCS: 74176; 80048; 81001; 85025; 96361; 96374; 96375; 96376; 99284; J7030; A4216

== ENCOUNTER → 2019-09-02 12:09 | Outpatient (CLI) | payer MEDICARE, MEDICAID, SELFPAY ==
[2019-09-02 13:32] LABS: Amphetamine Urine VISTA NEGATIVE (<1000 ng/mL); Barbiturate Urine VISTA NEGATIVE (< 200 ng/mL); Benzodiazepine Urine VISTA NEGATIVE (< 200 ng/mL); Cocaine Urine VISTA NEGATIVE (< 300 ng/mL); Ecstacy Urine VISTA NEGATIVE (< 500 ng/mL); Methadone Urine VISTA NEGATIVE (< 300 ng/mL); PCP Urine VISTA NEGATIVE (< 25 ng/mL); THC Urine VISTA NEGATIVE (< 50 ng/mL); Vista UDS pH Range 5
== END ==
PROVIDERS: Family Provider Internal Medicine; PCP Internal Medicine; Referring Provider Anesthesiology Pain Medicine; Visit Provider Anesthesiology Pain Medicine
DX: F11.20 Opioid dependence, uncomplicated (principal)
CPT/HCPCS: 80307

== ENCOUNTER → 2019-12-18 13:02 | Outpatient (CLI) | payer MEDICARE, MEDICAID, SELFPAY ==
[2019-12-10 14:40] VITALS: BMI 35.3
--- NOTE | 2019-12-18 13:03 | MRI_ITS ---
STUDY: MRI LEFT ELBOW REASON FOR EXAM: Left elbow pain extending down to mid forearm, no specific injury. TECHNIQUE: Standardized fat and water weighted pulse sequences were obtained in all 3 orthogonal planes. COMPARISON: None. FINDINGS: Normal radio-capitellum articulation. Normal radial collateral ligamentous complex. There is a strain of the common extensor musculotendinous junction (inversion recovery coronal image 11). Normal ulnotrochlear articulation. Normal ulnar collateral ligamentous complex. Normal common flexor tendon. The cubital tunnel is normal, with a normal ulnar nerve. Normal biceps tendon and distal insertion. Normal lacertus fibrosis. Normal brachialis musculotendinous insertion. Normal triceps tendon and teno-osseous insertion. Normal olecranon process. The visualized distal humerus, proximal radius, and ulna are normal. The soft tissue structures are unremarkable. MRI/Upper Ext Joint Only(Routine) IMPRESSION: Strain of the common extensor musculotendinous junction. Electronically Signed: Jeison York MD at 14:45 EST Tel , Service support ,
== END ==
PROVIDERS: PCP Internal Medicine; Referring Provider Orthopaedic Surgery; Visit Provider Orthopaedic Surgery
DX: M25.522 Pain in left elbow (principal)
CPT/HCPCS: 73221

== ENCOUNTER 2020-05-06 06:02 | Day surgery (SDC) | payer MEDICARE, MEDICAID, SELFPAY ==
[2019-12-24 13:22] VITALS: BMI 35.3
[2020-04-10 13:59] VITALS: BMI 35.3
--- NOTE | 2020-05-01 12:57 | EKG12_ITS ---
Test Reason : PREOP Blood Pressure : / mmHG Vent. Rate : 081 BPM Atrial Rate : 081 BPM P-R Int : 158 ms QRS Dur : 080 ms QT Int : 362 ms P-R-T Axes : 070 033 033 degrees QTc Int : 420 ms Normal sinus rhythm Low voltage QRS Borderline ECG Confirmed by CHACORTA LEE, YOVANY ([id number]), associate entertainment editor GILMER LANDAVERDE ([id number]) on 05/04/2020 9:48:21 AM Referred By: Lara Reeder Confirmed By:ARNOLD WHATLEY MD
[2020-05-01 13:05] LABS: Hematocrit 48.6 % (37-47); Hemoglobin 15.6 g/dL (12.0-15.0); Mean Corp Hgb Conc 32.1 g/dL (32-36); Mean Corpuscular Hgb 28.6 pg (27.0-32.0); Mean Platelet Vol. 10.8 fl (6.2-12.0); Platelet Count 277 K/mm3 (150-450); RBC Distribution Width CV 12.7 % (11.6-14.6); RBC Distribution Width SD 41.2 fl (35.1-43.9); Red Blood Count 5.46 M/mm3 (4.2-5.4); White Blood Count 8.8 K/mm3 (4.4-11.0)
[2020-05-01 13:23] LABS: Anion Gap 7 (5-15); BUN 10 mg/dL (7-18); BUN/Creat Ratio 12.7 RATIO (10-20); Calcium,Total 9.5 mg/dL (8.5-10.1); Chloride 105 mmol/L (98-107); Creatinine, Serum 0.79 mg/dL (0.55-1.02); EST Glomerular Filtration Rate 84 mL/min (>60); Est Glom Filt Rate - Afr Amer 102 mL/min (>60); Glucose 162 mg/dL (74-106); Potassium 3.6 mmol/L (3.5-5.1); Sodium Level 138 mmol/L (136-145)
[2020-05-01 13:43] LABS: Hemoglobin A1c 7.5 % (3.8-5.6)
[2020-05-06] VITALS (7 sets, daily range): BP systolic 106–123; BP diastolic 65–85; PULSE 71–115; RESP 16–17; TEMP 36.1–36.4; O2SAT 94–99; BMI 36.5
[2020-05-06] MEDS: Lactated Ringers 1,000 ML 100 ML IV (06:48)
[2020-05-06 06:55] LABS: Bedside Glucose 129 mg/dL (70-110)
--- NOTE | 2020-05-06 07:17 | HP.PCM_ITS ---
History and Physical I have re-examined the patient. There are no clinical changes since date of exam. We discussed the current risk associated COVID-19. While it is understood that there is a community spread of COVID 19 the risk of harris COVID-19 while at [facility] is very low, however, the risk cannot be completely mitigated because of the community spread of the disease. We discussed in detail the risk of exposure to and or potential harm posed by the COVID-19 virus with having a surgery/procedure at this time versus the risk of delaying the surgery/procedure. Is not possible to know either the risk of delaying the surgery procedure or chance of getting an infection with perfect accuracy, but a joint decision was made to proceed at this time with a schedule surgery/procedure as indicated on the consent form. Patient was notified that we will need to comply with any screening or testing [facility] wishes to perform or that surgery may be delayed for any positive results. Patient aware of not been tested for the virus I have no symptoms of but is aware of the risks associate with this as well. Intake Vital Signs 04/10/20 BMI 35.3 Intake Visit Reasons: LEFT SHOULDER Is patient in pain?: Yes Pain scale (1-10): 7 Allergies infliximab [From Remicade] Allergy (Verified 07/14/19 04:49) Rash morphine Allergy (Verified 07/14/19 04:49) Swelling [facility] Medical History (Updated 01/20/20 @ 13:07 by Darien Stallings) Crohn's disease (Chronic) Psoriatic arthritis (Chronic) Social History (Updated 04/10/20 @ 15:54 by PATRICIO Tomlin) Smoking Status: Never smoker HPI LEFT SHOULDER: Details: Parts of this documentation were recorded by a scribe, this documentation accurately reflects the service provided and the decisions made by me, PATRICIO Tomlin 04/10/20 6937. SID MORFIN is a 44 year old F here today for continued and increasing left shoulder pain. She has decreased rom, pain increases beyond 90 degrees in flexion and abduction, limited IR as well. Denies numbness, tingling or other associated symptoms. She is here today to sign surgery consent. Most recent MRI is 12/2019 and available for review today. ROS Musc Reports as per HPI, Reports joint pain, Reports limited joint movement, Reports muscle weakness, Reports stiffness Skin/Breast Reports as per HPI Neuro Yes as per HPI Ortho Exam Left Shoulder Skin/Wound: No ecchymosis, No erythema, No swelling Testing: Yes Hawkin's, Yes Speed's, Yes TTP Biceps, No TTP AC Joint, Yes AROM- Forward Elevation 0-180, Yes AROM-External Rotation at 90 0-60, No Apprehension Test, Yes empty can (Evident weakness), Yes [place] Internal Rotation: Tip of Scapula SHOULDER: No abnormalities on inspection of the shoulder. No localized or generalized swelling and no overlying skin changes. She continues to have good range of motion comparable to the right side at the same time there are still evident impingement signs. She does have discomfort with range of motion. There is biceps and probable subscapularis components. She is neurovascularly intact throughout the extremity. She is neurovascularly intact having normal sensation and normal distal radial pulses. Assessment & Plan Problems 1. Impingement syndrome of left shoulder M75.42 Plan Patient presents the office today for continued left shoulder pains and to sign surgical consent for left shoulder arthroscopy with possible rotator cuff repair, biceps tenodesis versus tenotomy, subacromial decompression/acromioplasty. Risks and benefits of the surgery were discussed with patient all of her questions were answered in the office and consent was signed today. Patient be contacted by the surgery department as for preanesthesia testing. Patient is a diabetic with her most recent A1c in November being 7.3. She states that she is due to have this done again soon. Patient will be notified the day before her surgery of the time of her surgery. Patient was also given antimicrobial scrub to be used the night before and the morning of her procedure. Patient can notify our office with any concerns or complaints in the meantime. Our office will reach out to her once we have a date of her surgery set. Again notify with any other questions. This note was generated with SNSplusation software. It may contain incorrect words, spelling, and punctuation that were not noted in checking the note before signing. Coding Level of Care Code Off vis,est,level 3 Diagnoses Impingement syndrome of left shoulder M75.42
--- NOTE | 2020-05-06 07:18 | DCINST_ITS ---
Discharge Diet: No Restrictions - May use left arm as tolerated. May remove sling move arm and elbow out of sling as tolerated, may remove dressings in 5 days and apply Band-Aids to incision sites And get incision wet at that time, May remove sling when comfortable in next 3 days Discharge Activity: May Not Drive May shower in (days): 1 Ice area for (Minutes): 20 - Every hour while awake. Weight Bearing Status: Weight bearing as tolerated Keep extremity elevated above heart level: Operative Extremity Call your doctor if your incision/area has: Continuous Slow Oozing, Sudden Increased Bleeding, Increased Pain/ Swelling, Increased Redness, Foul Smelling Discharge Call your doctor if you observe: Fever of 101 or Higher, Coldness, Increased Pain, Numbness or Tingling, Change in Color, Calf discomfort Allergies/Adverse Reactions: Allergies hydromorphone [From Dilaudid] Allergy (Verified 05/06/20 06:28) Swelling infliximab [From Remicade] Allergy (Verified 05/06/20 06:28) Rash morphine Allergy (Verified 05/06/20 06:28) Swelling tramadol [From Ultram] Allergy (Verified 05/06/20 06:28) Swelling Medications to take at Discharge metFORMIN HCl [Glucophage] 1,000 mg PO BIDCM 03/06/17 oxycodone-acetaminophen 5 mg-325 mg tablet 1 tab PO TID 06/28/18 norethindrone (contraceptive) 0.35 mg tablet 0.35 mg PO DAILY 09/20/18 dulaglutide 0.75 mg/0.5 mL subcutaneous pen injector 0.75 mg SC QWEEK 03/19/19 insulin glargine 100 unit/mL subcutaneous solution 60 unit SC QHS ml 03/19/19 Biotin 10,000 mcg PO DAILY 07/14/19 Cetirizine HCl [Zyrtec] 1 tab PO DAILY 07/14/19 Cholecalciferol (Vitamin D3) [Vitamin D3] 1 tab PO DAILY 07/14/19 Fluticasone Propionate 2 spray INHALATION DAILY PRN 07/14/19 Lactobacillus Acidophilus [Acidophilus] 1 ea PO DAILY 07/14/19 Mecobalamin [B-12] 1 tab PO DAILY 07/14/19 Multivitamin [Multiple Vitamins] 1 tab PO DAILY 07/14/19 Pregabalin [Lyrica] 1 tab PO TID 07/14/19 Tizanidine HCl 4 mg PO QHS 07/14/19 fluconazole 150 mg tablet 150 mg PO QWEEK 01/20/20 Ascorbic Acid [Vitamin C] 1,000 mg PO QHS 04/29/20 Famotidine [Pepcid] 40 mg PO BID 04/29/20 Magnesium Oxide [Magnesium] 500 mg PO BID 04/29/20 Rizatriptan Benzoate [Maxalt] 10 mg PO PRN PRN 04/29/20 Oxycodone HCl/Acetaminophen [Percocet 5/325] 1 - 2 tab PO Q6H PRN PRN 5 Days #28 tab 05/06/20 Zolpidem Tartrate [Ambien (Generic)] 5 mg PO QHS PRN PRN #14 tab 05/06/20 The following prescriptions were given: Zolpidem Tartrate [Ambien (Generic)] 5 mg PO QHS PRN PRN #14 tab PRN Reason: Insomnia Transmission Status: Received by [id number] Oxycodone HCl/Acetaminophen [Percocet 5/325] 1 - 2 tab PO Q6H PRN PRN 5 Days #28 tab PRN Reason: Pain Transmission Status: Received by [id number] Primary Care Physician: Grayson Phan MD [Primary Care Provider] - Test Results: Test results from this visit will be discussed in further detail at your follow- up appointment, if applicable. Please Follow Up With: Lara Reeder, - [phone]
--- NOTE | 2020-05-06 07:18 | OP.PCM_ITS ---
Report of Operation Date of Procedure: 05/06/20 Pre-Operative Diagnosis: left shoulder rotator cuff tear, subacromial impingment syndrome Post-Operative Diagnosis: same Surgery/Procedure Performed:: left shoulder arthroscopy, rotator cuff debridement, subacromial decompression/acromioplasty retail marketing executive: Shad Mckeon Type of Anesthesia:: General Anesthesiologist: Sandro Singleton Estimated Blood Loss (mL): min Fluids Replaced: 1200cc lr Description of Procedure: Preop note Patient is a 44-year-old female continued left shoulder pain. Patient failed conservative treatment options. MRI confirmed subacromial impingement syndrome as well as partial rotator cuff tear the subacromial of the subscapularis. Again patient failed conservative treatment like to proceed with left shoulder arthroscopy repair as indicated. Risk benefits and alternatives were discussed the patient. Risk include but not limited to blood loss, blood clot, infection, neurovascular, failure procedure, loss of life and loss of limb. Patient is aware like to proceed with left shoulder arthroscopy. Indicated. We discussed the current risk associated COVID-19. While it is understood that there is a community spread of COVID 19 the risk of harris COVID-19 while at [facility] is very low, however, the risk cannot be completely mitigated because of the community spread of the disease. We discussed in detail the risk of exposure to and or potential harm posed by the COVID-19 virus with having a surgery/procedure at this time versus the risk of delaying the surgery/procedure. Is not possible to know either the risk of delaying the surgery procedure or chance of getting an infection with perfect accuracy, but a joint decision was made to proceed at this time with a schedule surgery/procedure as indicated on the consent form. Patient was notified that we will need to comply with any screening or testing [facility] wishes to perform or that surgery may be delayed for any positive results. OPperative note Patient seen and examined preoperative holding area. Left shoulder was marked. Patient brought to the operating room placed supine on the operating table. Sign, anesthesia, antibiotics were administered. Left arm was prepped and draped in usual sterile fashion with tourniquet where the SCDs placed on her bilateral lower extremities all bony prominences well-padded. We placed her in beachchair positioning long-term through we did recheck her blood pressure which was stable throughout. Again we prepped and draped the left arm usual standard technique we marked out our incisions for bony landmarks. For portals. We insufflated the glenohumeral joint for the posterior aspect after timeout was performed. We had good return. We then created an anterior posterior portal with our 11 blade. Begin our diagnostic arthroscopy. The rotator cuff was intact on the the supraspinatus and infraspinatus and the footprint. The we then created an anterior portal under direct visualization. Patient had some subscap fraying which was gently debrided with a shaver. There over the footprint of the subscap was intact. There was no biceps lift off at the labral junction we then brought the biceps into the joint there was no fraying no tearing and no erythema of significance. We then moved to the posterior aspect the labrum was intact anterior labrum was intact as well. We then moved to the subacromial space. Created a lateral portal under direct visualization. There was thickened bursa throughout. With this was resected back with combination of a shaver and a burner. We also gently resected back the acromion. We then irrigated the shoulder and the subacromial we started we did an irrigated the subacromial space with copious muscle sterile saline. All bleeders were coagulated. Portals were closed with interrupted 4-0 nylon stitches. Sterile dressings were applied and a sling was applied. Patient tolerated procedure well no complication shows recovery room in stable condition. Please note that preoperatively patient did receive a preop regional block. Postoperative note Pharmacy [facility] has prescriptions We will give patient pictures in 2 weeks Call with increased pain numbness tingling or further issues arise This note was generated with Carebase[employer] software. It may contain incorrect words, spelling, and punctuation that were not noted in checking the note before signing.
[2020-05-06] MEDS: Cefazolin 2 GM in 0.9% Normal Saline 100 ML IV (07:26)
[2020-05-06] MEDS: Epinephrine (1 mg/ml) 1 MG/ML VIAL (08:01)
[2020-05-06] MEDS: Mupirocin Ointment 22gm Tube 1 APPLIC (08:35)
--- NOTE | 2020-05-06 08:42 | PCM.HP.BLA ---
History and Physical Please add this COVID asked addendum to the initial history and physical from this morning. Procedure Criteria Procedure Type: Elective COVID Risk Discussion: The surgeon/proceduralist and patient have discussed in detail the risk of exposure to and/or potential harm posed by the COVID-19 virus with having a surgery/procedure at this time versus the risk of delaying the surgery/procedure. It is not possible to know either the risk of delaying the surgery or procedure or chance of getting an infection with perfect accuracy, but a joint decision was made between the patient and the surgeon/proceduralist to proceed at this time with the scheduled surgery/procedure as indicated on the consent form.
[2020-05-06 09:11] LABS: Bedside Glucose 125 mg/dL (70-110)
== END 2020-05-06 10:30 | disposition home or self-care (01) ==
LOC: SDC 06:02 → AC 06:02
PROVIDERS: Anesthesiology; PCP Internal Medicine; Referring Provider Orthopaedic Surgery; Visit Provider Orthopaedic Surgery
PROC: (CPT 29827; principal; 2020-05-06 07:10)
DX: M75.102 Unspecified rotator cuff tear or rupture of left shoulder, not specified as traumatic (principal); E11.9 Type 2 diabetes mellitus without complications; K50.90 Crohn's disease, unspecified, without complications; L40.50 Arthropathic psoriasis, unspecified; K21.9 Gastro-esophageal reflux disease without esophagitis; K76.0 Fatty (change of) liver, not elsewhere classified; Z79.4 Long term (current) use of insulin; Z79.899 Other long term (current) drug therapy; Z93.2 Ileostomy status
CPT/HCPCS: 01630; 29826; 29827; 36415; 80048; 82962; 83036; 85027; 87635; 93005; G2023; J7120; J2405; U0003

== ENCOUNTER → 2020-06-17 11:58 | Outpatient (CLI) | payer MEDICARE, MEDICAID, SELFPAY ==
[2020-06-16 10:31] VITALS: BMI 36.5
[2020-06-17 12:56] LABS: Amphetamine Urine VISTA NEGATIVE (<1000 ng/mL); Barbiturate Urine VISTA NEGATIVE (< 200 ng/mL); Benzodiazepine Urine VISTA NEGATIVE (< 200 ng/mL); Cocaine Urine VISTA NEGATIVE (< 300 ng/mL); Ecstacy Urine VISTA NEGATIVE (< 500 ng/mL); Methadone Urine VISTA NEGATIVE (< 300 ng/mL); PCP Urine VISTA NEGATIVE (< 25 ng/mL); THC Urine VISTA NEGATIVE (< 50 ng/mL); Vista UDS pH Range 5
== END ==
PROVIDERS: PCP Internal Medicine; Referring Provider Anesthesiology Pain Medicine; Visit Provider Anesthesiology Pain Medicine
DX: F11.20 Opioid dependence, uncomplicated (principal)
CPT/HCPCS: 80307

== ENCOUNTER → 2020-09-01 09:50 | Outpatient (CLI) | payer MEDICARE, MEDICAID, SELFPAY ==
[2020-08-18 08:16] VITALS: BMI 36.5
== END ==
PROVIDERS: PCP Internal Medicine
DX: Z20.828 Contact with and (suspected) exposure to other viral communicable diseases (principal); R05 Cough; R06.02 Shortness of breath; J02.9 Acute pharyngitis, unspecified; R19.7 Diarrhea, unspecified
CPT/HCPCS: 87635; C9803; U0003

== ENCOUNTER → 2021-04-20 10:56 | Outpatient (CLI) | payer MEDICARE, MEDICAID, SELFPAY ==
[2021-03-30 09:40] VITALS: BMI 36.5
--- NOTE | 2021-04-20 10:57 | MRI_ITS ---
STUDY: MRI RIGHT SHOULDER REASON FOR EXAM: Right shoulder pain for 4 years, limited range of motion, impingement. TECHNIQUE: Standardized fat and water weighted pulse sequences were obtained in all 3 orthogonal planes. COMPARISON: MRI images 12/31/2018 and radiographs 05/23/2016. FINDINGS: There is mild supraspinatus tendinosis (T2 coronal images 12, 13) without discrete tendon tear. Normal infraspinatus tendon. Normal subscapularis tendon. Normal teres minor tendon. Normal supraspinatus muscle. Normal infraspinatus muscle. Normal subscapularis muscle. Normal teres minor muscle. Normal glenohumeral articulation. Normal humeral head and visualized proximal humerus. Normal biceps labral complex. Normal intracapsular long biceps tendon. Normal labrum. Normal capsulo- ligamentous complex. Normal acromioclavicular articulation. There is a Type II morphology (curved), with a neutral orientation. There is no subacromial-subdeltoid bursal fluid. There is thickening of the coracoacromial ligament (T2 sagittal image 13). Normal deltoid muscle. Normal trapezius muscle. MRI/Upper Ext Joint Only(Routine) IMPRESSION: Mild supraspinatus tendinosis without demonstrated rotator cuff tear. Thickening of the coracoacromial ligament. Electronically Signed: Jeison York MD at 13:38 EDT Tel , Service support ,
== END ==
PROVIDERS: PCP Internal Medicine; Referring Provider Orthopaedic Surgery; Visit Provider Orthopaedic Surgery
DX: M75.102 Unspecified rotator cuff tear or rupture of left shoulder, not specified as traumatic (principal); M25.511 Pain in right shoulder; M25.512 Pain in left shoulder; R29.898 Other symptoms and signs involving the musculoskeletal system
CPT/HCPCS: 73221

== ENCOUNTER → 2021-07-22 11:22 | Outpatient (CLI) | payer MEDICARE, MEDICAID, SELFPAY ==
[2021-07-22 12:07] LABS: Amphetamine Urine VISTA NEGATIVE (<1000 ng/mL); Barbiturate Urine VISTA NEGATIVE (< 200 ng/mL); Benzodiazepine Urine VISTA NEGATIVE (< 200 ng/mL); Cocaine Urine VISTA NEGATIVE (< 300 ng/mL); Ecstacy Urine VISTA NEGATIVE (< 500 ng/mL); Methadone Urine VISTA NEGATIVE (< 300 ng/mL); PCP Urine VISTA NEGATIVE (< 25 ng/mL); THC Urine VISTA NEGATIVE (< 50 ng/mL); Vista UDS pH Range 5
== END ==
PROVIDERS: PCP Internal Medicine; Visit Provider Anesthesiology Pain Medicine
DX: F11.20 Opioid dependence, uncomplicated (principal)
CPT/HCPCS: 80307

== ENCOUNTER 2022-02-03 10:03 | Outpatient (CLI) | payer MEDICARE, MEDICAID, SELFPAY ==
[2022-02-03 11:17] LABS: Amphetamine Urine VISTA NEGATIVE (<1000 ng/mL); Barbiturate Urine VISTA NEGATIVE (< 200 ng/mL); Benzodiazepine Urine VISTA NEGATIVE (< 200 ng/mL); Cocaine Urine VISTA NEGATIVE (< 300 ng/mL); Ecstacy Urine VISTA NEGATIVE (< 500 ng/mL); Methadone Urine VISTA NEGATIVE (< 300 ng/mL); PCP Urine VISTA NEGATIVE (< 25 ng/mL); THC Urine VISTA NEGATIVE (< 50 ng/mL); Vista UDS pH Range 5
== END 2022-02-03 23:59 | disposition home or self-care (01) ==
PROVIDERS: PCP Internal Medicine; Visit Provider Anesthesiology Pain Medicine
DX: F11.20 Opioid dependence, uncomplicated (principal)
CPT/HCPCS: 80307

== ENCOUNTER → 2022-07-21 | Outpatient (CLI) | payer MEDICARE, MEDICAID, SELFPAY ==
[2022-07-21 15:17] LABS: Amphetamine Urine VISTA NEGATIVE (<1000 ng/mL); Barbiturate Urine VISTA NEGATIVE (< 200 ng/mL); Benzodiazepine Urine VISTA NEGATIVE (< 200 ng/mL); Cocaine Urine VISTA NEGATIVE (< 300 ng/mL); Ecstacy Urine VISTA NEGATIVE (< 500 ng/mL); Methadone Urine VISTA NEGATIVE (< 300 ng/mL); PCP Urine VISTA NEGATIVE (< 25 ng/mL); THC Urine VISTA NEGATIVE (< 50 ng/mL); Vista UDS pH Range 5
== END | disposition home or self-care (01) ==
LOC: LAB 14:43
PROVIDERS: PCP Internal Medicine; Referring Provider Anesthesiology Pain Medicine; Visit Provider Anesthesiology Pain Medicine
DX: F11.20 Opioid dependence, uncomplicated (principal)
CPT/HCPCS: 80307

== ENCOUNTER → 2024-01-09 | Outpatient (CLI) | payer MEDICARE, MEDICAID, SELFPAY ==
[2024-01-09 12:46] LABS: Amphetamine Urine VISTA NEGATIVE (<1000 ng/mL); Barbiturate Urine VISTA NEGATIVE (< 200 ng/mL); Benzodiazepine Urine VISTA NEGATIVE (< 200 ng/mL); Cocaine Urine VISTA NEGATIVE (< 300 ng/mL); Ecstacy Urine VISTA NEGATIVE (< 500 ng/mL); Methadone Urine VISTA NEGATIVE (< 300 ng/mL); PCP Urine VISTA NEGATIVE (< 25 ng/mL); THC Urine VISTA NEGATIVE (< 50 ng/mL); Vista UDS pH Range 5
== END | disposition home or self-care (01) ==
LOC: LAB 11:10
PROVIDERS: PCP Internal Medicine; Referring Provider Anesthesiology Pain Medicine; Visit Provider Anesthesiology Pain Medicine
DX: F11.20 Opioid dependence, uncomplicated (principal)
CPT/HCPCS: 80307

== ENCOUNTER 2024-01-19 08:54 | Emergency (ER) | payer MEDICARE, MEDICAID, SELFPAY ==
[2024-01-19 08:56] VITALS: BP 134/83; PULSE 89; RESP 16; TEMP 36.3; O2SAT 99; BMI 33.5
[2024-01-19 09:26] LABS: Absolute Lymphocyte Count 1.41 X10^3/uL (0.83-4.51); Absolute Neutrophil Count 5.8 X10^3/uL (2.0-7.7); Basophil# 0.07 X10^3/uL; Basophil% 0.9 % (0-1); Eosinophil# 0.11 X10^3/uL; Eosinophils% 1.4 % (0-5); Hematocrit 47.5 % (37-47); Hemoglobin 15.4 g/dL (12.0-15.0); Lymphocyte # 1.41 X10^3/ul (0.83-4.51); Lymphocyte % 18.2 % (19-41); Mean Corp Hgb Conc 32.4 g/dL (32-36); Mean Corpuscular Hgb 27.9 pg (27.0-32.0); Mean Corpuscular Volume 86.2 fL (81-99); Mean Platelet Vol. 10.3 fl (6.2-12.0); Monocyte# 0.34 X10^3/uL; Monocyte% 4.4 % (0-10); NRBC Flagged by Analyzer 0 % (0-5); Neutrophil % 74.8 % (47-70); Platelet Count 243 K/mm3 (150-450); RBC Distribution Width CV 12.6 % (11.6-14.6); RBC Distribution Width SD 39.2 fl (35.1-43.9); Red Blood Count 5.51 M/mm3 (4.2-5.4); White Blood Count 7.8 K/mm3 (4.4-11.0)
[2024-01-19 09:32] LABS: Internal QC Validated? YES +Cl - CLEAR BKGD; Pregnancy, Serum, hCG Quali. NEGATIVE Negative
[2024-01-19 09:42] LABS: Anion Gap 7 (5-15); BUN 12 mg/dL (7-18); Calcium,Total 10.1 mg/dL (8.5-10.1); Chloride 110 mmol/L (98-107); EST Glomerular Filtration Rate 81 mL/min (>60); Est Glom Filt Rate - Afr Amer 98 mL/min (>60); Estimated Creatinine Clearance 77.18 ml/min; Glucose 199 mg/dL (74-106); Potassium 3.6 mmol/L (3.5-5.1); Sodium Level 141 mmol/L (136-145)
--- NOTE | 2024-01-19 09:43 | CT_ITS ---
HISTORY: Right flank pain. TECHNIQUE: Helically acquired images were obtained of the abdomen and pelvis without oral or IV contrast. A radiation dose optimization technique was used for this scan. 432 images. COMPARISON: 07/14/2019. FINDINGS: LOWER CHEST: Very mild left lower lobe scarring. BOWEL: Bowel nondilated. Colectomy with right lower quadrant ileostomy again seen with mild parastomal herniation of small bowel. No focal inflammatory change observed. PERITONEUM: No significant free fluid. LIVER: Enlarged with fatty infiltration. GALLBLADDER/BILIARY TREE: Gallbladder present. SPLEEN/PANCREAS/ADRENAL GLANDS: Nonenlarged. KIDNEYS AND URETERS: 2 mm nonobstructing left interpolar calculus. No right nephrolithiasis or hydronephrosis. VESSELS: No abdominal aortic aneurysm. Mild atherosclerosis. PELVIC ORGANS: Intrauterine device in place. BONES: Intact. CT/Abdomen/Pelvis without Cont IMPRESSION: Small nonobstructing left renal calculus. No evidence for right nephrolithiasis or hydronephrosis. Hepatic steatosis with hepatomegaly. Unchanged appearance of right lower quadrant ostomy. Electronically Signed: Shawna Peters MD at 10:21 EST ,
--- NOTE | 2024-01-19 09:44 | ED.VIS.GI ---
HPI HPI - GI History of Present Illness Chief Complaint: Flank Pain Narrative Narrative: 48-year-old female presenting with right flank pain. Onset was this morning about 530 she describes as sharp. She got nauseous and vomited. She states he has a history of kidney stones. Her pain is in the right lower flank and radiates to the right inguinal area. Patient also has history of ovarian cysts but this feels more like a kidney stone. Patient currently has minimal pain and nausea is resolved. No fevers at home. No dysuria or hematuria. No constipation or diarrhea. PFSH PFS Medical History Crohn's disease Psoriatic arthritis Home Medications metformin 1,000 mg tablet 1,000 mg PO BIDCM 03/06/17 [History Last Taken Unknown] oxycodone-acetaminophen 5 mg-325 mg tablet (Percocet) 1 tab PO TID 06/28/18 [History Last Taken 05/06/20 04:30] norethindrone (contraceptive) 0.35 mg tablet 0.35 mg PO DAILY 09/20/18 [History Last Taken Unknown] insulin glargine 100 unit/mL subcutaneous solution (Lantus U-100 Insulin) 60 unit subcut QHS 03/19/19 [History Last Taken Unknown] Lactobacillus acidophilus 1 ea PO DAILY 07/14/19 [History Last Taken Unknown] biotin 10,000 mcg capsule 10,000 mcg PO DAILY 07/14/19 [History Last Taken Unknown] cetirizine 10 mg disintegrating tablet 1 tab PO DAILY 07/14/19 [History Last Taken Unknown] cholecalciferol (vitamin D3) 50 mcg (2,000 unit) capsule 1 tab PO DAILY 07/14/19 [History Last Taken Unknown] fluticasone propionate 50 mcg/actuation nasal spray,suspension 2 spray inhalation DAILY PRN Congestion 07/14/19 [History Last Taken Unknown] mecobalamin (vitamin B12) 1,000 mcg disintegrating tablet,sublingual 1 tab PO DAILY 07/14/19 [History Last Taken Unknown] multivitamin 1 tab PO DAILY 07/14/19 [History Last Taken Unknown] pregabalin 150 mg capsule 1 tab PO TID 07/14/19 [History Last Taken 05/06/20 04:30] tizanidine 4 mg capsule 4 mg PO QHS 07/14/19 [History Last Taken Unknown] ascorbic acid (vitamin C) 1,000 mg tablet 1,000 mg PO QHS 04/29/20 [History Last Taken Unknown] famotidine 40 mg tablet 40 mg PO BID 04/29/20 [History Last Taken 05/06/20 04:30] magnesium oxide 500 mg capsule 500 mg PO BID 04/29/20 [History Last Taken Unknown] rizatriptan 10 mg tablet 10 mg PO PRN PRN Migraine Symptoms 04/29/20 [History Last Taken Unknown] semaglutide 0.25 mg or 0.5 mg (2 mg/1.5 mL) subcutaneous pen injector (Ozempic) 0.5 mg subcut QWEEK 10/06/20 [History Last Taken Unknown] Allergy/AdvReac Type Severity Reaction Status Date / Time hydromorphone [From Dilaudid] Allergy Swelling Verified 01/19/24 08:55 infliximab [From Remicade] Allergy Rash Verified 01/19/24 08:55 morphine Allergy Swelling Verified 01/19/24 08:55 tramadol [From Ultram] Allergy Swelling Verified 01/19/24 08:55 Social History Smoking Status: Former smoker ROS ROS ED Constitutional Constitutional ED: Denies chills, fever(s) or sweats Eyes Eyes: Denies blurry vision or change in vision ENT ENT ED: Denies ear pain or sore throat Cardiovascular Cardiovascular: Denies chest pain, palpitations or racing heartbeat Respiratory/Chest Respiratory/Chest: Denies cough, dyspnea or sputum Gastrointestinal Gastrointestinal: Reports abdominal pain, nausea and vomiting; Denies constipation or diarrhea Genitourinary Genitourinary ED: Denies dysuria, hematuria or urinary frequency Musculoskeletal Musculoskeletal: Reports back pain; Denies arthralgias, myalgias or neck pain Integumentary Denies abscess, Abrasions or rash Neurologic Neurologic: Denies headache(s), paresthesias or weakness Psychiatric Psychiatric: Denies anxiety, depression, suicidal ideation or suicidal thoughts Endocrine Endocrinology: Denies polydipsia or polyuria EXAM Physical Exam Const Vital Signs: 01/19/24 08:56 Temperature 97.4 F L Temperature Source Temporal Pulse Rate 89 Respiratory Rate 16 Blood Pressure 134/83 H Blood Pressure Mean 100 Pulse Ox 99 Oxygen Delivery Method Room Air Positive well nourished General Appearance ED: NAD HEENT Reports moist mucous membranes normocephalic and atraumatic Eyes PERRL and EOMs intact bilaterally Resp normal respiratory effort Cardio regular rate and regular rhythm GI Palpation: tender RLQ Back/Spine General Back: CVA tenderness right Neuro CN's II-XII intact bilaterally Sensorium / Orientation: alert Psych mental status grossly normal MDM MDM MDM Narrative Medical decision making narrative: Patient presenting with right flank pain. Patient presenting with right flank pain. Differential includes colitis, diverticulitis, gastritis, constipation, UTI, pyelonephritis, calculi, ureteral calculi, obstruction, malignancy, dehydration, electrolyte abnormalities, ovarian torsion, ovarian cyst, ectopic , Crohn's flare. Patient minimal pain I feel most likely she has colicky pain secondary to kidney stone. Patient was amenable to some Toradol. CBC was obtained and white blood cell count 7.8. Hemoglobin 15.4. Platelets 243. Renal function electrolytes unremarkable. hCG negative. Will obtain CT of the abdomen pelvis without contrast and urinalysis. Urinalysis shows some occult blood but no evidence of infection. CT of the ab pelvis without contrast shows no evidence of kidney stones or obstruction. Abdominal CT is unchanged and stable. At this point I feel the patient can be discharged home. Recommend Tylenol and ibuprofen. Will prescribe Zofran for nausea. Impression: 1. Right flank pain 2. Nausea/vomiting Lab Data Attestation: I reviewed the patient's lab results. Labs: Laboratory Results - last 24 hr 01/19/24 01/19/24 09:16 09:45 WBC 7.8 RBC 5.51 H Hgb 15.4 H Hct 47.5 H MCV 86.2 MCH 27.9 MCHC 32.4 RDW Std Deviation 39.2 RDW Coeff of Aspen 12.6 Plt Count 243 MPV 10.3 Immature Gran % (Auto) 0.300 Neut % (Auto) 74.8 H Lymph % (Auto) 18.2 L [place] % (Auto) 4.4 Eos % (Auto) 1.4 Baso % (Auto) 0.9 Absolute Neuts (auto) 5.8 Absolute Lymphs (auto) 1.41 Nucleated RBC % 0 Sodium 141 Potassium 3.6 Chloride 110 H Carbon Dioxide 24.0 Anion Gap 7 BUN 12 Creatinine 0.80 Estim Creat Clear Calc 77.18 Est GFR (MDRD) Af Amer 98 Est GFR (MDRD) Non-Af 81 BUN/Creatinine Ratio 15.0 Glucose 199 H Calcium 10.1 Serum , Qual NEGATIVE Urine Color Yellow Urine Clarity Sl. Cloudy Urine pH 5.0 Ur Specific [place] 1.025 Urine Protein 30 H Urine Glucose (UA) 100 H Urine Ketones 15 H Urine Occult Blood 25 H Urine Nitrite Negative Urine Bilirubin Negative Urine Urobilinogen Normal Ur Leukocyte Esterase 25 H Urine RBC 0-5 SEEN Urine WBC 0-5 SEEN Ur Squamous Epith Cells 5-10 SEEN Urine Bacteria 1+ Urine Mucus 2+ Radiography Diagnostic Testing: Clinical Impression(s) from Imaging Studies Abdomen/Pelvis CT 01/19/24 09:43 IMPRESSION: Small nonobstructing left renal calculus. No evidence for right nephrolithiasis or hydronephrosis. Hepatic steatosis with hepatomegaly. Unchanged appearance of right lower quadrant ostomy. Electronically Signed: Shawna Peters MD at 10:21 EST Reading Location ID and State: [facility] / [place] Tel , Service support , Discharge Plan Triage Chief Complaint: Flank Pain ED Provider: Kaleb Preston Dx/Rx/DC Orders Prescriptions: No Action oxycodone-acetaminophen [Percocet] 5-325 mg tablet 1 tab PO TID norethindrone (contraceptive) 0.35 mg tablet 0.35 mg PO DAILY Lantus U-100 Insulin 100 unit/mL solution 60 unit SC QHS Ozempic 0.25 mg or 0.5 mg(2 mg/1.5 mL) pen injector 0.5 mg SC QWEEK metformin 1,000 MG tablet 1,000 mg PO BIDCM multivitamin 1 EACH tablet 1 tab PO DAILY biotin 10,000 MCG capsule 10,000 mcg PO DAILY Lactobacillus acidophilus 1 EACH capsule 1 ea PO DAILY fluticasone propionate 16 GM spray,suspension 2 spray inhalation DAILY PRN (Reason: Congestion) Patient Comments: SPRAY 2 SPRAYS INTO EACH NOSTRIL EVERY DAY tizanidine 4 MG capsule 4 mg PO QHS pregabalin 150 MG capsule 1 tab PO TID cholecalciferol (vitamin D3) 2,000 UNIT capsule 1 tab PO DAILY cetirizine 10 MG tablet,disintegrating 1 tab PO DAILY mecobalamin (vitamin B12) 1,000 MCG tablet,disintegrating 1 tab PO DAILY famotidine 40 MG tablet 40 mg PO BID rizatriptan 10 MG tablet 10 mg PO PRN PRN (Reason: Migraine Symptoms) magnesium oxide 500 MG capsule 500 mg PO BID ascorbic acid (vitamin C) 1,000 MG tablet 1,000 mg PO QHS Primary Care Provider: Grayson Phan Referrals: Grayson Phan MD [Primary Care Provider] -
[2024-01-19] MEDS: Ketorolac 15 MG/ML Vial IV (09:53)
[2024-01-19 09:59] LABS: Color, Urine Yellow (Yellow); Glucose, Dipstick 100 mg/dl (Normal); Ketone-Dipstick 15 mg/dl (Negative); Leukocyte Esterase-Dipstick 25 /ul (Negative); Nitrite-Dipstick Negative (Negative); Occult Blood-Urine 25 /ul (Negative); Protein-Dipstick 30 mg/dl (Negative); Specific Gravity, Urine 1.025 (1.002-1.030); Urine Bilirubin Dipstick Negative (Negative); Urine Clarity Sl. Cloudy (Clear); Urine Urobilinogen Normal (Normal)
[2024-01-19 10:09] LABS: Bacteria 1+ /hpf (None Seen); Mucous, Urine 2+ /hpf (<or=2+); Squamous Epithelial Cells - UA 5-10 SEEN /hpf (5-10)
[2024-01-19 10:10] LABS: Red Blood Cells-Urine 0-5 SEEN /hpf (0-5); White Blood Cells 0-5 SEEN /hpf (0-5)
[2024-01-19 11:00] VITALS: BP 134/62; PULSE 74; RESP 16; TEMP 36.6; O2SAT 99
== END 2024-01-19 11:39 | disposition home or self-care (01) ==
PROVIDERS: Emergency Provider Student in an Organized Health Care Education/Training Program; PCP Internal Medicine; Visit Provider Student in an Organized Health Care Education/Training Program
DX: R10.9 Unspecified abdominal pain (principal); Z79.4 Long term (current) use of insulin; R11.2 Nausea with vomiting, unspecified; Z79.84 Long term (current) use of oral hypoglycemic drugs; Z79.85 Long-term (current) use of injectable non-insulin antidiabetic drugs; Z79.899 Other long term (current) drug therapy; Z87.891 Personal history of nicotine dependence
CPT/HCPCS: 74176; 80048; 81001; 84703; 85025; 96374; 99283; A4216

== ENCOUNTER → 2024-02-06 | Outpatient (CLI) | payer MEDICARE, MEDICAID, SELFPAY ==
[2024-02-06 14:10] LABS: Amphetamine Urine VISTA NEGATIVE (<1000 ng/mL); Barbiturate Urine VISTA NEGATIVE (< 200 ng/mL); Benzodiazepine Urine VISTA NEGATIVE (< 200 ng/mL); Cocaine Urine VISTA NEGATIVE (< 300 ng/mL); Ecstacy Urine VISTA NEGATIVE (< 500 ng/mL); Methadone Urine VISTA NEGATIVE (< 300 ng/mL); PCP Urine VISTA NEGATIVE (< 25 ng/mL); THC Urine VISTA NEGATIVE (< 50 ng/mL); Vista UDS pH Range 5
== END | disposition home or self-care (01) ==
LOC: LAB 11:46
PROVIDERS: PCP Internal Medicine; Referring Provider Anesthesiology Pain Medicine; Visit Provider Anesthesiology Pain Medicine
DX: F11.20 Opioid dependence, uncomplicated (principal)
CPT/HCPCS: 80307

== ENCOUNTER → 2024-11-15 | Outpatient (CLI) | payer MEDICARE, MEDICAID, SELFPAY ==
[2024-11-15 15:05] LABS: Amphetamine Urine VISTA NEGATIVE (<1000 ng/mL); Barbiturate Urine VISTA NEGATIVE (< 200 ng/mL); Benzodiazepine Urine VISTA NEGATIVE (< 200 ng/mL); Cocaine Urine VISTA NEGATIVE (< 300 ng/mL); Ecstacy Urine VISTA NEGATIVE (< 500 ng/mL); Methadone Urine VISTA NEGATIVE (< 300 ng/mL); PCP Urine VISTA NEGATIVE (< 25 ng/mL); THC Urine VISTA NEGATIVE (< 50 ng/mL); Vista UDS pH Range 5
== END | disposition home or self-care (01) ==
LOC: LAB 13:31
PROVIDERS: PCP Internal Medicine; Referring Provider Anesthesiology Pain Medicine; Visit Provider Anesthesiology Pain Medicine
DX: F11.20 Opioid dependence, uncomplicated (principal)
CPT/HCPCS: 80307

== ENCOUNTER → 2025-01-02 | Outpatient (CLI) | payer MEDICARE, MEDICAID, SELFPAY ==
[2025-01-02 18:19] LABS: Amphetamine Urine NEGATIVE (<1000 ng/mL); Barbiturate Urine VISTA NEGATIVE (< 200 ng/mL); Benzodiazepine Urine VISTA NEGATIVE (< 200 ng/mL); Cocaine Urine NEGATIVE (< 300 ng/mL); Ecstacy Urine VISTA NEGATIVE (< 500 ng/mL); Methadone Urine VISTA NEGATIVE (< 300 ng/mL); Opiates Urine NEGATIVE (< 300 ng/mL); PCP Urine NEGATIVE (< 25 ng/mL); THC Urine VISTA NEGATIVE (< 50 ng/mL); Vista UDS pH Range 5
== END | disposition home or self-care (01) ==
LOC: LAB 17:04
PROVIDERS: PCP Internal Medicine; Referring Provider Anesthesiology Pain Medicine; Visit Provider Anesthesiology Pain Medicine
DX: F11.20 Opioid dependence, uncomplicated (principal)
CPT/HCPCS: 80307

== ENCOUNTER → 2025-05-20 | Outpatient (CLI) | payer MEDICARE, MEDICAID, SELFPAY ==
--- NOTE | 2025-05-20 06:46 | MRI_ITS ---
PROCEDURE: SPINE CERVICAL (ROUTINE) 05/20/2025 REASON FOR EXAM: RADICULOPATHY TECHNIQUE: SPINE CERVICAL (ROUTINE) Multiplanar and multisequence images were obtained without IV contrast administration. COMPARISON: None. FINDINGS: Vertebrae: Cervical vertebral body heights are preserved. Bone marrow signal is unremarkable. Alignment: There is loss of the normal cervical lordosis. No spondylolisthesis. Spinal Cord: Cervical spinal cord is of normal size and signal intensities. Structures at the foramen magnum are unremarkable. C2-3: The intervertebral disc is preserved. There is no disc protrusion. The facet joints are normal. There is no central canal stenosis, lateral recess stenosis or foraminal narrowing. C3-4: The intervertebral disc is preserved. There is no disc protrusion. The facet joints are normal. There is no central canal stenosis, lateral recess stenosis or foraminal narrowing. C4-5: There is a broad-based central disc protrusion. There is mild compression of the thecal sac. There is no central canal stenosis. There is mild bilateral joint of Luschka arthropathy. There is no facet arthropathy. There is no lateral recess stenosis or foraminal narrowing. C5-6: There is a broad-based central disc protrusion. There is mild compression of the thecal sac. There is no central canal stenosis. There is mild bilateral joint of Luschka arthropathy. There is no facet arthropathy. There is no lateral recess stenosis or foraminal narrowing. C6-7: The intervertebral disc is preserved. There is no disc protrusion. The facet joints are normal. There is no central canal stenosis, lateral recess stenosis or foraminal narrowing. C7-T1: The intervertebral disc is preserved. There is no disc protrusion. The facet joints are normal. There is no central canal stenosis, lateral recess stenosis or foraminal narrowing. There is a benign cyst in the right thyroid lobe. MRI/Spine Cervical (Routine) IMPRESSION: 1. There is mild degenerative disc disease at the C4-5 and C5-6 levels with mi ld compression of the thecal sac. There is no central canal stenosis, lateral recess stenosis or foraminal narrowing. 2. There is loss of the normal cervical lordosis consistent with spasm. 3. Other findings as noted. Reading Location: [id number]
--- OUTSIDE RECORDS SUMMARY | 2025-05-22 03:01 | XMS RPT_ITS | CCD ---
Author Organization [facility] Care Team Providers Care Scrap Burner Name Role Phone Jesika LEE, Grayson Mathis Primary Care Provider Jesika LEE, Grayson Mathis Primary Care Provider [phone] Samy Barragan PA-C Unavailable [phone] Jesika LEE, Grayson Mathis Primary Care Provider [phone] Tre [email or web address].SQL ANALYST, Aury M Unavailable Merlin RN, Antonieta Unavailable Merlin RN, Antonieta Unavailable LARA REEDER Referring Unavailab le PHAN, MUSA Primary Care Unavailable PHAN, MUSA Primary Care Unavailable SCOTT GOLD Referring Unavailable PHAN, MUSA Primary Care Unavailable ANTONI MCKENZIE Referring Unavailable CONKLE-LAGROUXALBINA Attending Unavaila ble PHAN, MUSA Primary Care Unavailable PHAN, MUSA Primary Care Unavailable RYAN MCCOLLUM Attending Unavaila ble CONKLE-LAGROUXALBINA Attending Unavaila ble PHAN, MUSA Primary Care Unavailable CONKLE-LAGROUX ALBINA Referring Unavaila ble PHAN, MUSA Primary Care Unavailable JONATHAN MOSLEY (RES) Attending Unavailable JONATHAN MOSLEY (RES) Admitting Unavailable PHAN, MUSA Primary Care Unavailable ALIE STALLWORTH Referring Unavailable PHAN, MUSA Primary Care Unavailable SCOTT GOLD Attending Unavailable PHAN, MUSA Primary Care Unavailable YURI PITT Referring Unavailable RICH GONZALEZ Attending Unavailable PHAN, MUSA Primary Care Unavailable LARA REEDER Attending Unavailab le PHAN, MUSA Primary Care Unavailable SCOTT GOLD Attending Unavailable PHAN, MUSA Primary Care Unavailable ALIE STALLWORTH Attending Unavailable PHAN, MUSA Primary Care Unavailable SELF Referring Unavailable SAFIA JAMIL Attending Unavailable PHAN, MUSA Primary Care Unavailable O'RAYNASAMY CARDONA Referring Unavailable PHAN, MUSA Primary Care Unavailable STEVE JUAREZ Attending Unavailable PHAN, MUSA Primary Care Unavailable ALIE STALLWORTH Referring Unavailable PHAN, MUSA Primary Care Unavailable CHICORELLI, LARA PEREZ Attending Unavailab le PHAN, MUSA Primary Care Unavailable O'RAYNASAMY CARDONA Attending Unavailable PHAN, MUSA Primary Care Unavailable ALIE STALLWORTH Attending Unavailable PHAN, MUSA Primary Care Unavailable STEVE JUAREZ Attending Unavailable PHAN, MUSA Primary Care Unavailable ASIF, SCOTT Referring Unavailable LARA REEDER Referring Unavailab le PHAN, MUSA Primary Care Unavailable YURI PITT Attending Unavailable PHAN, MUSA Primary Care Unavailable GOLDSCOTT Referring Unavailable PHAN, MUSA Primary Care Unavailable PHAN, MUSA Attending Unavailable PHAN, MUSA Primary Care Unavailable ALIE STALLWORTH Attending Unavailable PHAN, MUSA Primary Care Unavailable O'RAYNASAMY Attending Unavailable CHICORELLARA LAL Referring Unavailab le PHAN, MUSA Primary Care Unavailable YURI PITT Attending Unavailable PHAN, MUSA Primary Care Unavailable CHICORELLILARA Referring Unavailab YURI Soni Attending Unavailable PHAN, MUSA Primary Care Unavailable SYD MONAE Attending Unavailable Basali, Michelle Referring Unavailable Basali, Michelle Attending Unavailable Phan, Grayson Primary Care Unavailable Basali, Michelle Attending Unavailable Phan, Grayson Primary Care Unavailable Basali, Kittyman Referring Unavailable Basali, Kittyman Referring Unavailable Basali, Kittyman Attending Unavailable Phan, Grayson Primary Care Unavailable CherryorelLara lal Consulting Unavailab le Allergies Allergy Classification Reported Allergen(s) Allergy Type Date of Onset Reaction(s) Facility inFLIXimab (1 source) inFLIXimab Drug Allergy 6 Intolerance, Rash [facility] insulin detemir (1 source) insulin detemir Drug Allergy 4 Other: See Comments [facility] Work Phone: Macrolides (antibiotic) (1 source) Azithromycin Drug Allergy 1 Unknown [facility] Work Phone: Opioid Agonists (4 sources) HYDROmorphone Drug Allergy [address] [facility] Work Phone: (20 sources) Azithromycin; Translations: [AZITHROMYCIN] Drug Allergy 1 Unknown [facility] Work Phone: (20 sources) HYDROmorphone; Translations: [HYDROMORPHONE (BULK)] Drug Allergy 6 Swelling [facility] Work Phone: (20 sources) inFLIXimab; Translations: [INFLIXIMAB] Drug Allergy 6 Intolerance, Rash [facility] (20 sources) insulin detemir; Translations: [INSULIN DETEMIR] Drug Allergy 4 Other: See Comments [facility] Work Phone: (20 sources) Methadone; Translations: [METHADONE] Drug Allergy [address] [facility] (20 sources) Morphine; Translations: [MORPHINE] Drug Allergy [address] [facility] Work Phone: (20 sources) traMADol; Translations: [TRAMADOL HCL] Drug Allergy [address] [facility] Work Phone: (5 sources) HYDROmorphone Drug Allergy 1 [facility] (5 sources) traMADol Drug Allergy 1 [facility] (1 source) HYDROmorphone Drug Allergy 4 [facility] (1 source) inFLIXimab Drug Allergy 4 [facility] (1 source) Morphine Drug Allergy 4 [facility] (1 source) traMADol Drug Allergy 4 [facility] Medications Current Medications Medication Drug Class(es) Dates Sig (Normalized) Sig (Original) acetaminophen 325 mg / oxyCODONE hydrochloride 5 mg oral tablet (20 sources) Opioid Agonist Start: 05-06-2020 End: 05-11-2020 take 1 tablet by mouth every six hours as needed Oxycodone-Acetamino phen Discontinued 1 - 2 TABLET PO EVERY 6 HOURS NEEDED 09 04May 06, 2020 May 11, 2020 12:02am Start: 06-28-2018 take 1 tablet by danny th three times daily as needed oxyCODONE-acetaminophen (PERCOCET) 5-325 mg tablet TAKE 1 TABLET BY MOUTH 3 TIMES A DAY NEEDED FOR 28 DAYS 04/28/2022 Active End: 11-28-2021 take 1 tablet by mouth every eight hours as needed oxyCODONE-acetaminophen (PERCOCET) 5-325 mg tablet Take 1 tablet by mouth every 8 hours as needed. 11/28/2021 Discontinued Comment on above: TAKE 1 TABLET BY DANNY TH 3 TIMES A DAY NEEDED FOR 28 DAYS ascorbic acid 1000 mg oral tablet (20 sources) Vitamin C Start: 04-29-2020 take 1000 mg by mouth at bedtime Ascorbic Acid (Vitamin C) Active 1000 MG PO AT BEDTIME April 29, 2020 12:00am take 1000 mg by mouth once daily Ascorbic Acid 500 mg chew Take 1,000 mg by mouth once daily. With kiko Active Comment on above: Take 1,000 mg by danny once daily. With kiko biotin 10 mg oral capsule (20 sources) Start: 07-14-2019 take [id number] ug by mouth once daily Biotin Active 96620 MCG PO DAILY July 14, 2019 12:00am End: 07-26-2022 take 1 capsule by mouth twice daily Biotin 10,000 mcg cap Take 1 capsule by mouth twice daily. 07/26/2022 Discontinued (Course of therapy completed) Comment on above: Take 1 capsule by mo [facility] twice daily. Blood-Glucose Meter (ACCU-CHEK DIANNE) (20 sources) Start: 05-10-2021 Blood-Glucose Meter (ACCU-CHEK DIANNE) Test blood sugar(s) 2 times daily. Dx: Type 2 DM - Controlled E11.9 Insulin: No, Accu-check brand covered by insurance 1 Each 05/10/2021 Active Start: 05-10-2021 Blood-Glucose Meter (ACCU-CHEK DIANNE) Test blood sugar(s) 2 times daily. Dx: Type 2 DM - Controlled E11.9 Insulin: No, Accu-check brand covered by insurance 1 Each 0 05/10/2021 Active Comment on above: Test blood sugar(s) 2 times daily. Dx: Type 2 DM - Controlled E11.9 Insulin: No, Accu-check brand covered by insurance Blood-Glucose Sensor (FREESTYLE GIANFRANCO 3 PLUS SENSOR) matilda (20 sources) Start: 02-14-20 25 Blood-Glucose Sensor (FREESTYLE GIANFRANCO 3 PLUS SENSOR) matilda Indications: Type 2 diabetes mellitus with hyperglycemia, with long-term current use of insulin (HCC) Apply new sensor every fifteen (15) days to upper arm. 6 each 4 02/13/2025 Active cephalexin 500 mg oral capsule (1 source) Cephalosporin Antibacterial Start: 07-26-20 End: 08-05-20 take 1 capsule by mouth four times daily cephALEXin (KEFLEX) 500 mg capsule Take 1 capsule by mouth four times daily for 10 days. 40 capsule 0 07/26/2023 08/05/2023 Active Comment on above: Take 1 capsule by mo [facility] four times daily for 10 days. cetirizine hydrochloride 10 mg disintegrating oral tablet (20 sources) Histamine-1 Receptor Antagonist Start: 07-14-20 19 take 1 tablet by mouth once daily Cetirizine Active 1 TABLET PO DAILY July 14, 2019 12:00am Start: 04-20-2019 End: 02-06-2023 take 1 tablet by mouth once daily cetirizine (ZYRTEC) 10 mg tablet Take 1 tablet by mouth once daily. 90 tablet 3 04/20/2019 02/06/2023 Discontinued (Discontinued by Patient) Comment on above: Take 1 tablet by [facility] once daily. clobetasol propionate 0.0005 mg/mg topical ointment (20 sources) Corticosteroid Start: 08-11-2023 clobetasol (TEMOVATE) 0.05 % ointment Apply to affected area two times a day. Face. Feet. Two weeks on and two weeks off, per [facility]. 08/11/2023 Active Start: 08-08-2022 End: 08-11-2023 clobetasol (TEMOVATE) 0.05 % cream Indications: Psoriasis Apply to affected area twice daily. Sparingly to feet, knees, palms. 60 g 1 08/08/2022 08/11/2023 Discontinued Start: 05-15-2021 End: 07-26-2022 clobetasol (TEMOVATE) 0.05 % cream Indications: Psoriasis Apply to affected area twice daily. Sparingly to feet, knees, palms. 60 g 1 01/27/2022 Active Start: 05-11-2021 End: 01-04-2022 clobetasol (TEMOVATE) 0.05 % ointment Indications: Lichen sclerosus Apply 0.5 fingertip to the affected area nightly for 6 weeks. Then apply 0.5 fingertip to the affected area twice weekly. 60 g 2 05/11/2021 01/04/2022 Discontinued (Course of therapy completed) Comment on above: Apply to affected ar ea twice daily. Sparingly to feet, knees, palms. Apply to affected ar ea two times a day. Face. Feet. Two weeks on and two weeks off, per [facility]. clotrimazole 10 mg/ml topical cream (1 source) Azole Antifungal Start: 12-23-2022 End: 12-30-2022 clotrimazole (ANTIFUNGAL, CLOTRIMAZOLE,) 1 % cream Indications: Candidal intertrigo Apply to affected area twice daily for 7 days. 24 g 1 12/23/2022 12/30/2022 Active Comment on above: Apply to affected ar ea twice daily for 7 days. COMPOUNDED PRESCRIPTION (20 sources) Start: 07-05-2017 COMPOUNDED PRESCRIPTION Indications: Ileostomy status ([facility]) 1. V44.2 Ileostomy status ([facility]) (primary diagnosis) 2. 555.1 Regional enteritis of large intestine ([facility]) Ileostomy Supplies. 1. Pouches, 2. Planges, 3. Felipe seals, 4. Stoma adhesive, 5. Stoma powder, 6. Skin preps, 7. Adhesive remover wipes. Dispense 1 year supplies. 20 bag 11 07/05/2017 Active Comment on above: 1. V44.2 Ileostomy s tatus ([facility]) (primary diagnosis) 2. 555.1 Regional enteritis of large intestine ([facility]) Ileostomy Supplies. 1. Pouches, 2. Planges, 3. Felipe seals, 4. Stoma adhesive, 5. Stoma powder, 6. Skin preps, 7. Adhesive remover wipes. Dispense 1 year supplies. 1 ml denosumab 60 mg/ml prefilled syringe (20 sources) RANK Ligand Inhibitor Start: 05-10-2022 End: 05-05-2023 denosumab 60 mg injection (PROLIA) ELDERBERRY FRUIT (20 sources) elderberry fruit (ELDERBERRY ORAL) Take by mouth. Active elderberry fruit (ELDERBERRY ORAL) Take by mouth. 0 Active Comment on above: Take by mouth. enteric contrast (will be provided with radiology test) (2 sources) Start: 03-24-2022 End: 03-28-2022 enteric contrast (will be provided with radiology test) For CT ENTEROGRAPHY W IVCON order Administer, As Directed One Time Only, via Oral, Rectal, both Oral and Rectal, Enteric Tube, Stoma or Indwelling Catheter, Enteric Contrast as designated per enteric contrast guidelines. 1 Each 0 03/24/2022 03/28/2022 Active Start: 03-24-2022 End: 03-25-2022 enteric contrast (will be pr ovided with radiology test) For CT ENTEROGRAPHY W IVCON order Administer, As Directed One Time Only, via Oral, Rectal, both Oral and Rectal, Enteric Tube, Stoma or Indwelling Catheter, Enteric Contrast as designated per enteric contrast guidelines. 1 Each 0 03/24/2022 03/25/2022 Active Comment on above: For CT ENTEROGRAPHY W IVCON order Administer, As Directed One Time Only, via Oral, Rectal, both Oral and Rectal, Enteric Tube, Stoma or Indwelling Catheter, Enteric Contrast as designated per enteric contrast guidelines. fexofenadine (20 sources) Histamine-1 Receptor Antagonist fexofenadine HCl (LELA ORAL) Take by mouth. Active fexofenadine HCl (LELA ORAL) Take by mouth. 0 Active Comment on above: Take by mouth. flash glucose scanning reader (FREESTYLE GIANFRANCO 2 READER) (2 sources) Start: 05-10-2022 End: 05-11-2022 flash glucose scanning reader (FREESTYLE GIANFRANCO 2 READER) Use to check blood sugar at least four (4) times daily. 1 Each 0 05/10/2022 05/11/2022 Active Comment on above: Use to check blood s ugar at least four (4) times daily. folic acid 1 mg oral tablet (8 sources) Start: 04-20-2025 take 1 tablet by mouth once daily folic acid 1 mg tablet Take 1 tablet by mouth once daily. 30 tablet 11 04/20/2025 Active Start: 09-24-2021 End: 12-22-2021 take 1 tablet by mouth once daily folic acid 1 mg tablet Take 1 tablet by mouth once daily. 90 tablet 3 09/24/2021 12/22/2021 Discontinued 0.2 ml glucagon 5 mg/ml prefilled syringe (20 sources) Antihypoglycemic Agent Start: 03-11-2024 GVOKE P FS 1-PACK SYRINGE 1 mg/0.2 mL syrg Indications: Type 2 diabetes mellitus with hyperglycemia, without long-term current use of insulin ([facility]) INJECT 0.2 ML UNDER THE SKIN NEEDED. 0.4 mL 11 03/11/2024 Active 3 ml insulin glargine 100 unt/ml pen injector (20 sources) Insulin Analog Start: 02-13-2025 insulin glargi ne (LANTUS SOLOSTAR U-100 INSULIN) 100 unit/mL (3 mL) Indications: Type 2 diabetes mellitus with hyperglycemia, with long-term current use of insulin ([facility]) INJECT 40 UNITS UNDER THE SKIN EVERY evening 36 mL 3 02/13/2025 Active Start: 09-16-2024 End: 02-13-2025 insulin glargine (LANTUS PANTERA OSTAR U-100 INSULIN) 100 unit/mL (3 mL) Indications: Type 2 diabetes mellitus with hyperglycemia, with long-term current use of insulin ([facility]) INJECT 20 UNITS UNDER THE SKIN EVERY evening 30 mL 3 10/29/2024 02/13/2025 Discontinued Start: 02-16-2024 End: 09-16-2024 insulin glargine (LANTUS PANTERA OSTAR U-100 INSULIN) 100 unit/mL (3 mL) Indications: Type 2 diabetes mellitus with hyperglycemia, with long-term current use of insulin ([facility]) INJECT 25 UNITS UNDER THE SKIN bedtime 30 mL 2 02/16/2024 09/16/2024 Discontinued Start: 05-29-2023 End: 02-16-2024 insulin glargine (LANTUS PANTERA OSTAR U-100 INSULIN) 100 unit/mL (3 mL) Indications: Type 2 diabetes mellitus with hyperglycemia, with long-term current use of insulin ([facility]) INJECT 20 UNITS UNDER THE SKIN EVERY MORNING 30 mL 2 11/14/2023 02/16/2024 Discontinued (Adjust Sig - Block E-Cancel) Start: 03-21-2023 End: 05-29-2023 insulin glargine (LANTUS PANTERA OSTAR U-100 INSULIN) 100 unit/mL (3 mL) Inject 20 Units subcutaneously every morning. 30 mL 0 03/21/2023 05/29/2023 Discontinued Start: 02-15-2023 End: 03-21-2023 inject 10 [IU] by subcutaneous injection once daily in the morning insulin glargine (LANTUS SOLOSTAR U-100 INSULIN) 100 unit/mL (3 mL) Inject 10 Units subcutaneously every morning. For hyperglycemia from steroid shot 30 mL 0 02/15/2023 03/21/2023 Discontinued Start: 02-13-2023 End: 02-15-2023 insulin glargine (LANTUS PANTERA OSTAR U-100 INSULIN) 100 unit/mL (3 mL) Inject 12 Units subcutaneously every morning. For hyperglycemia from steroid shot 0 02/13/2023 02/15/2023 Discontinued Start: 07-14-2022 End: 12-20-2022 insulin glargine (LANTUS PANTERA OSTAR U-100 INSULIN) 100 unit/mL (3 mL) Indications: Type 2 diabetes mellitus with hyperglycemia, with long-term current use of insulin (HCC) Inject 46 Units subcutaneously daily at bedtime. 60 mL 2 07/14/2022 12/20/2022 Discontinued Start: 06-24-2022 insulin glargi ne (LANTUS SOLOSTAR U-100 INSULIN) 100 unit/mL (3 mL) Indications: Type 2 diabetes mellitus with hyperglycemia, with long-term current use of insulin (HCC) Inject 46 Units subcutaneously daily at bedtime. 60 mL 2 07/14/2022 Active Start: 05-19-2022 End: 06-24-2022 insulin glargine (LANTUS PANTERA OSTAR U-100 INSULIN) 100 unit/mL (3 mL) Indications: Type 2 diabetes mellitus with hyperglycemia, with long-term current use of insulin (HCC) Inject 50 Units subcutaneously daily at bedtime. 60 mL 2 05/19/2022 06/24/2022 Discontinued (Adjust Sig - Block E-Cancel) Start: 05-10-2022 inject 2 mg by subcu taneous injection every week at bedtime insulin glargine (LANTUS SOLOSTAR U-100 INSULIN) 100 unit/mL (3 mL) Indications: Type 2 diabetes mellitus with hyperglycemia, with long-term current use of insulin (HCC) Inject 56 Units subcutaneously daily at bedtime. Reduce to 50 units when Ozempic is 2 mg weekly 60 mL 2 05/10/2022 Active Start: 07-12-2021 End: 05-10-2022 LANTUS SOLOSTAR U-100 INSULI N 100 unit/mL (3 mL) INJECT 60 UNITS SUBCUTANEOUSLY DAILY AT BEDTIME. 60 mL 2 12/06/2021 05/10/2022 Discontinued Start: 03-19-2019 Insulin Glargi ne (Lantus U-100 Insulin) 100 unit/mL solution Active 60 UNIT SC AT BEDTIME March 19, 2019 12:00am Comment on above: INJECT 60 UNITS SUBC UTANEOUSLY DAILY AT BEDTIME. Inject 56 Units subc utaneously daily at bedtime. Reduce to 50 units when Ozempic is 2 mg weekly Inject 50 Units subc utaneously daily at bedtime. Inject 46 Units subc utaneously daily at bedtime. Inject 12 Units subc utaneously every morning. For hyperglycemia from steroid shot Inject 10 Units subc utaneously every morning. For hyperglycemia from steroid shot Inject 20 Units subc utaneously every morning. INJECT 20 UNITS UNDE R THE SKIN EVERY MORNING INJECT 25 UNITS UNDE R THE SKIN bedtime 3 ml insulin lispro 100 unt/ml pen injector (20 sources) Insulin Analog Start: End: inject 2 [IU] by subcutaneous injection three times daily before mealtime insulin lispro (HUMALOG KWIKPEN) 100 unit/mL Indications: Diabetes mellitus type 1, controlled, without complications (HCC) Inject 2 Units subcutaneously three times a day before meals. Plus sliding scale #2 If blood sugar is: Additional units 350 18 units Max daily dose 18 mL 2 02/13/2025 Active iv contrast (will be provided with radiology test) (2 sources) Start: End: iv contrast (will be provided with radiology test) CT Enterography W Inject, intravenously, once for 1 dose.No IV access, insert saline lock prior to the beginning of sedation, infusion, injection of imaging exam. Discontinue saline lock post exam. If Pt. has a central line or IVAD, may access for administration according to line specific nursing protocol. Once exam is complete flush line and de-access according to line specific nursing protocol in the CT contrast administration guidelines link. 1 Each 0 03/24/2022 03/28/2022 Active Start: 03-24-2022 End: 03-25-2022 iv contrast (will be provide d with radiology test) CT Enterography W Inject, intravenously, once for 1 dose.No IV access, insert saline lock prior to the beginning of sedation, infusion, injection of imaging exam. Discontinue saline lock post exam. If Pt. has a central line or IVAD, may access for administration according to line specific nursing protocol. Once exam is complete flush line and de-access according to line specific nursing protocol in the CT contrast administration guidelines link. 1 Each 0 03/24/2022 03/25/2022 Active Comment on above: CT Enterography W In ject, intravenously, once for 1 dose.No IV access, insert saline lock prior to the beginning of sedation, infusion, injection of imaging exam. Discontinue saline lock post exam. If Pt. has a central line or IVAD, may access for administration according to line specific nursing protocol. Once exam is complete flush line and de-access according to line specific nursing protocol in the CT contrast administration guidelines link. Lactobacillus acidophilus (5 sources) Start: 07-14-2019 Lactobacillus Acidophilus Active 1 EACH PO DAILY July 14, 2019 4:55am Start: 07-14-2019 Lactobacillus Acidophilus Active 1 EACH PO DAILY July 13, 2019 11:00pm Start: 07-14-2019 Lactobacillus Acidophilus Active 1 EACH PO DAILY July 14, 2019 12:00am levonorgestrel 0.020637 mg/hr intrauterine system (20 sources) Progestin, Progestin-containing Intrauterine Device Start: 12-01-2022 End: 12-07-2027 levonorgestrel (MIRENA) 20 mcg/24 hours (8 yrs) 52 mg IUD Indications: Encounter for IUD insertion 1 Each by INTRAUTERINE route as directed. 1 Each 12/08/2022 12/07/2027 Active Comment on above: 1 Each by INTRAUTERI NE route as directed. methotrexate 25 mg/ml injectable solution (9 sources) Folate Analog Metabolic Inhibitor Start: 04-21-2025 End: 04-22-2025 inject 15 mg by subcutaneous injection every week methotrexate sodium 25 mg/mL soln Inject 15mg (0.6mL) subcutaneously once weekly 12 mL 04/22/2025 Active Start: 09-24-2021 End: 12-22-2021 take 4 tablets by mouth every week, then take 5 tablets by mouth every week, then take 6 tablets by mouth every week methotrexate 2.5 mg tablet Take by mouth. Take 4 tabs once per week x 1 week, then 5 tabs once per week x 1 week, the 6 tabs once per week thereafter. 24 tablet 09/24/2021 12/22/2021 Discontinued Multivitamin preparation (5 sources) Start: 07-14-2019 take 1 tablet by mouth once daily Multivitamin Active 1 TABLET PO DAILY July 14, 2019 4:55am Start: 07-14-2019 take 1 tablet by danny th once daily Multivitamin Active 1 TABLET PO DAILY July 13, 2019 11:00pm Start: 07-14-2019 take 1 tablet by danny th once daily Multivitamin Active 1 TABLET PO DAILY July 14, 2019 12:00am Naproxen (17 sources) Nonsteroidal Anti-inflammatory Drug naproxen sodium (ALEVE ORAL) Take by mouth. Once daily Active ondansetron 4 mg disintegrating oral tablet (2 sources) Serotonin-3 Receptor Antagonist Start: 2023 take 4 mg by mouth every eight hours as needed Ondansetron Active 4 MG PO EVERY 8 HOURS NEEDED January 19, 2024 1:00am pantoprazole 20 mg delayed release oral tablet (20 sources) Proton Pump Inhibitor Start: 2023 End: 2023 take 1 tablet by mouth once daily before breakfast pantoprazole DR (PROTONIX) 20 mg tablet Indications: Gastroesophageal reflux disease without esophagitis Take 1 tablet by mouth daily before breakfast. Take on empty stomach, 1/2 hr before meal. 90 tablet 3 10/21/2024 Active Start: 12-22-2022 End: 03-23-2024 take 1 tablet by mouth once daily pantoprazole DR (PROTONIX) 40 mg tablet Take 1 tablet by mouth once daily. 60 tablet 2 09/25/2023 01/23/2024 Discontinued (Dosage adjustment) Comment on above: Take 1 tablet by danny th once daily. Take 1 tablet by danny th daily before breakfast. Take on empty stomach, 1/2 hr before meal. phenazopyridine hydrochloride 200 mg oral tablet (10 sources) Start: End: take 1 tablet by mouth every eight hours as needed phenazopyridine (PYRIDIUM) 200 mg tablet Take 1 tablet by mouth three times a day as needed for up to 2 days. 6 tablet 12/13/2024 12/15/2024 Active Start: 04-29-2023 End: 08-11-2023 take 1 tablet by mouth every eight hours as needed phenazopyridine (PYRIDIUM) 200 mg tablet Take 1 tablet by mouth three times daily as needed. 6 tablet 0 04/29/2023 08/11/2023 Discontinued Comment on above: Take 1 tablet by danny th three times daily as needed. potassium citrate 10 meq extended release oral tablet (20 sources) Start: 12-18-2024 End: 12-18-2025 take 1 tablet by mouth twice daily potassium citrate ER (UROCIT-K) 10 mEq (1,080 mg) Take 1 tablet by mouth two times a day. 180 tablet 3 12/18/2024 12/18/2025 Active vits62/FA/om3/dha/ep a ( GUMMY ORAL) (20 sources) vits62/FA/om3/dha/e pa ( GUMMY ORAL) Take 2 Doses by mouth once daily. Active vits62/ FA/om3/dha/epa ( GUMMY ORAL) Take 2 Doses by mouth once daily. 0 Active Comment on above: Take 2 Doses by mout h once daily. semaglutide (OZEMPIC) 0.25 mg or 0.5 mg (2 mg/3 mL) pen (10 sources) Start: 11-19-19 25 End: 01-15-20 25 inject 0.5 mg by subcutaneous injection every week semaglutide (OZEMPIC) 0.25 mg or 0.5 mg (2 mg/3 mL) pen Indications: Type 2 diabetes mellitus with hyperglycemia, with long-term current use of insulin (HCC) Inject 0.5 mg subcutaneously one time a week. 3 mL 1 11/19/2024 01/14/2025 Active semaglutide (OZEMPIC) 1 mg/dose (4 mg/3 mL) pen (20 sources) Start: 05-13-20 End: 11-19-19 semaglutide (OZEMPIC) 1 mg/dose (4 mg/3 mL) pen Inject 1 mg subcutaneously one time a week. Patient should start on May 13, 2024. 9 mL 2 05/13/2024 11/19/2024 Discontinued Start: 05-13-2024 End: 01-20-2025 semaglutide (OZEMPIC) 1 mg/d ose (4 mg/3 mL) pen Inject 1 mg subcutaneously one time a week. Patient should start on May 13, 2024. 9 mL 2 05/13/2024 01/20/2025 Active Comment on above: Inject 1 mg subcutan eously one time a week. Patient should start on May 13, 2024. tiZANidine 4 mg oral capsule (20 sources) Central alpha-2 Adrenergic Agonist Start: take 4 mg by mouth at bedtime Tizanidine Active 4 MG PO AT BEDTIME July 14, 2019 12:00am Start: 02-25-2011 take 1 tablet by danny th at bedtime tiZANidine (ZANAFLEX) 4 mg tablet Indications: Lumbago Take by mouth. . Takes 1 tablet at bedtime. 02/25/2011 Active Comment on above: Take by mouth. . Handy es 1 tablet at bedtime. 0.5 ml ustekinumab 90 mg/ml prefilled syringe (20 sources) Interleukin-12 Antagonist, Interleukin-23 Antagonist Start: 04-14-20 inject 45 mg by subcutaneous injection in the evening ustekinumab (STELARA) 45 mg/0.5 mL syringe Inject 45 mg (1 syringe) subcutaneously every 8 weeks 1 mL 5 04/17/2025 2:25 PM EDT 04/14/2025 Active Start: 12-15-2022 End: 04-14-2025 ustekinumab (STELARA) 45 mg/ 0.5 mL syringe Inject 45 mg (1 syringe) subcutaneously every 12 weeks 1.5 mL 3 02/12/2025 10:49 AM EDT 02/08/2025 04/14/2025 Discontinued Comment on above: Inject 45 mg (1 syri nge) subcutaneously at weeks 0 and 4 followed by every 12 weeks thereafter. Inject 45 mg (1 syri nge) subcutaneously every 12 weeks valACYclovir 1000 mg oral tablet (2 sources) Herpesvirus Nucleoside Analog DNA Polymerase Inhibitor, Herpes Simplex Virus Nucleoside Analog DNA Polymerase Inhibitor, Herpes Zoster Virus Nucleoside Analog DNA Polymerase Inhibitor Start: 01-08-20 End: 01-09-20 take 2 tablets by mouth every twelve hours valACYclovir (VALTREX) 1 gram tablet Indications: Herpes labialis (oral herpes simplex) Take 2 tablets by mouth every 12 hours for 2 doses. 4 tablet 2 01/08/2025 01/09/2025 Active Completed/Discontinued Medications Medication Drug Class(es) Dates Sig (Normalized) Sig (Original) [id number] 200 actuat albuterol 0.09 mg/actuat metered dose inhaler (20 sources) beta2-Adrenergic Agonist Start: 11-07-2023 End: 01-23-2024 take 2 puff(s) by inhalation every six hours as needed albuterol HFA (PROAIR HFA) 90 mcg/actuation inhaler Inhale 2 Puffs as instructed every 6 hours as needed. 1 Each 0 11/07/2023 01/23/2024 Discontinued Start: 11-28-2021 take 2 puff(s) by in halation every four hours as needed for wheezing albuterol HFA (PROVENTIL HFA, VENTOLIN HFA) 90 mcg/actuation inhaler Indications: Viral syndrome Inhale 2 Puffs as instructed every 4 hours as needed for wheezing/shortness of breath. 1 Each 1 11/28/2021 Active Comment on above: Inhale 2 Puffs as in structed every 4 hours as needed for wheezing/shortness of breath. Inhale 2 Puffs as in structed every 6 hours as needed. benzonatate 100 mg oral capsule (2 sources) Non-narcotic Antitussive Start: End: take 2 capsules by mouth every eight hours as needed benzonatate (TESSALON PERLES) 100 mg capsule Take 2 capsules by mouth three times a day as needed. 30 capsule 0 11/07/2023 2023 Discontinued Comment on above: Take 2 capsules by m outh three times a day as needed. Blood Glucose Control High and Low (ACCU-CHEK GUIDE L1-L2 CTRL PANTERA) soln (5 sources) Start: Blood Glucose Control High and Low (ACCU-CHEK GUIDE L1-L2 CTRL PANTERA) soln Use as directed 1 Each 1 06/16/2022 Active Start: 06-07-2022 End: 06-15-2022 Blood Glucose Control High a nd Low (ACCU-CHEK GUIDE L1-L2 CTRL PANTERA) soln Use as directed 1 Each 1 06/07/2022 06/15/2022 Discontinued Start: 06-07-2022 Blood Glucose Control High and Low (ACCU-CHEK GUIDE L1-L2 CTRL PANTERA) soln Use as directed 1 Each 06/07/2022 Active Comment on above: Use as directed Blood-Glucose Meter,Continuous (FREESTYLE GIANFRANCO 3 READER) misc (20 sources) Start: 02-02-2024 End: 01-08-2025 Blood-Glucose Meter,Continuous (FREESTYLE GIANFRANCO 3 READER) misc Use to check blood sugar at least four (4) times daily. 1 Each 02/02/2024 01/08/2025 Discontinued Start: 02-02-2024 Blood-Glucose Meter,Continuous (FREESTYLE GIANFRANCO 3 READER) misc Use to check blood sugar at least four (4) times daily. 1 Each 02/02/2024 Active Start: 02-02-2024 Blood-Glucose Meter,Continuous (FREESTYLE GIANFRANCO 3 READER) misc Use to check blood sugar at least four (4) times daily. 1 Each 0 02/02/2024 Active Comment on above: Use to check blood s ugar at least four (4) times daily. Blood-Glucose Sensor (FREESTYLE GIANFRANCO 3 SENSOR) matilda (20 sources) Start: 02-06-2024 End: 02-13-2025 Blood-Glucose Sensor (FREESTYLE GIANFRANCO 3 SENSOR) matilda Indications: Type 2 diabetes mellitus with hyperglycemia, with long-term current use of insulin (HCC) Apply new sensor every fourteen (14) days to upper arm. E11.9 6 Each 3 02/06/2024 02/13/2025 Discontinued Start: 02-06-2024 Blood-Glucose Sensor (FREESTYLE GIANFRANCO 3 SENSOR) matilda Indications: Type 2 diabetes mellitus with hyperglycemia, with long-term current use of insulin (HCC) Apply new sensor every fourteen (14) days to upper arm. E11.9 6 Each 3 02/06/2024 Active Start: 11-14-2023 Blood-Glucose Sensor (FREESTYLE GIANFRANCO 3 SENSOR) matilda Indications: Type 2 diabetes mellitus with hyperglycemia, with long-term current use of insulin (HCC) Apply new sensor every fourteen (14) days to upper arm. 6 Each 4 11/14/2023 Active Start: 05-08-2023 End: 11-04-2023 Blood-Glucose Sensor (FREEST YLE GIANFRANCO 3 SENSOR) matilda Indications: Type 2 diabetes mellitus with hyperglycemia, with long-term current use of insulin (HCC) 1 Kit every 2 weeks. IDDM.DM2 6 Each 1 05/08/2023 11/04/2023 Start: 05-08-2023 End: 11-04-2023 Blood-Glucose Sensor (FREEST YLE GIANFRANCO 3 SENSOR) matilda Indications: Type 2 diabetes mellitus with hyperglycemia, with long-term current use of insulin (HCC) 1 Kit every 2 weeks. IDDM.DM2 6 Each 1 05/08/2023 11/04/2023 Active Comment on above: 1 Kit every 2 weeks. IDDM.DM2 Apply new sensor karishma ry fourteen (14) days to upper arm. Apply new sensor karishma ry fourteen (14) days to upper arm. E11.9 cholecalciferol 0.05 mg oral capsule (20 sources) Vitamin D Start: 07-14-2019 End: 08-12-2024 Cholecalciferol, Vitamin D3, 50 mcg (2,000 unit) cap DAILY 07/14/2019 08/12/2024 Discontinued Start: 07-14-2019 take 1 tablet by danny once daily Cholecalciferol (Vitamin D3) Active 1 TABLET PO DAILY July 14, 2019 12:00am End: 02-06-2023 take 1 capsule by mouth twice daily Cholecalciferol, Vitamin D3, (VITAMIN D-3) 50 mcg (2,000 unit) cap Take 1 capsule by mouth twice daily. 02/06/2023 Discontinued (Discontinued by Patient) Comment on above: Take 1 capsule by mo [facility] twice daily. DAILY 0.5 ml dulaglutide 1.5 mg/ml auto-injector (5 sources) GLP-1 Receptor Agonist Start: 2018 End: 2019 Dulaglutide (Trulicity) 0.75 mg/0.5 mL pen injector Discontinued 0.75 MG SC EVERY WEEK March 19, 2019 12:00am October 06, 2020 2:28pm 0.4 ml enoxaparin sodium 100 mg/ml prefilled syringe (5 sources) Low Molecular Weight Heparin Start: 2019 End: 2020 inject 40 mg by subcutaneous injection once daily Enoxaparin Discontinued 40 MG SQ DAILY May 06, 2020 12:00am February 02, 2021 10:31am subcutaneous injection daily, start pod1 0.85 ml exenatide 2.35 mg/ml auto-injector (13 sources) GLP-1 Receptor Agonist Start: 2021 End: 2022 inject 2 mg by subcutaneous injection every week exenatide microspheres (BYDUREON BCISE) 2 mg/0.85 mL injection Inject 2 mg subcutaneously one time a week. While Ozempic is out 10.2 mL 1 10/20/2022 12/20/2022 Discontinued Comment on above: Inject 2 mg subcutan eously one time a week. While Ozempic is out famotidine 40 mg oral tablet (20 sources) Histamine-2 Receptor Antagonist Start: 2019 End: 2022 take 1 tablet by mouth twice daily famotidine (PEPCID) 40 mg tablet Indications: Gastroesophageal reflux disease without esophagitis Take 1 tablet by mouth twice daily. 180 tablet 3 04/23/2021 05/31/2022 Discontinued Comment on above: Take 1 tablet by danny twice daily. 72 hr fentaNYL 0.012 mg/hr transdermal system (5 sources) Opioid Agonist Start: 2016 End: 2017 Fentanyl Discontinued 12 MCG TRANSDERM. Every 3 Days March 06, 2017 12:00am June 28, 2018 1:27pm flash glucose sensor (FREESTYLE GIANFRANCO 2 SENSOR) kit (20 sources) Start: 2021 End: 2023 flash glucose sensor (FREESTYLE GIANFRANCO 2 SENSOR) kit Indications: Type 2 diabetes mellitus with hyperglycemia, with long-term current use of insulin (HCC) Apply new sensor every fourteen (14) days to upper arm. Dx E11.9 6 Each 4 05/10/2022 02/02/2024 Discontinued Start: 05-10-2022 flash glucose sensor (FREESTYLE GIANFRANCO 2 SENSOR) kit Indications: Type 2 diabetes mellitus with hyperglycemia, with long-term current use of insulin ([facility]) Apply new sensor every fourteen (14) days to upper arm. Dx E11.9 6 Each 4 05/10/2022 Active Comment on above: Apply new sensor karishma ry fourteen (14) days to upper arm. Dx E11.9 fluconazole 150 mg oral tablet (5 sources) Azole Antifungal Start: 0 End: 1 take 150 mg by mouth every week Fluconazole Discontinued 150 MG PO EVERY WEEK January 20, 2020 12:00am February 02, 2021 10:31am fluticasone propionate 0.05 mg/actuat metered dose nasal spray (20 sources) Corticosteroid Start: 1 End: 3 take 2 spray(s) nasal route once daily fluticasone (FLONASE) 50 mcg/actuation nasal spray Indications: Chronic rhinitis Use 2 Sprays in each nostril once daily. 1 Bottle 2 07/12/2021 08/11/2023 Discontinued Start: 07-14-2019 take 1 spray(s) by i nhalation once daily Fluticasone Propionate Active 2 SPRAY INHALATION DAILY July 14, 2019 12:00am Comment on above: Use 2 Sprays in each nostril once daily. glucagon (GVOKE) 1 mg/0.2 mL injection (20 sources) Start: 12-20-2022 End: 03-11-2024 glucagon (GVOKE) 1 mg/0.2 mL injection Indications: Type 2 diabetes mellitus with hyperglycemia, without long-term current use of insulin ([facility]) Inject 0.2 mL subcutaneously as needed. 0.4 mL 2 12/20/2022 03/11/2024 Discontinued Start: 12-20-2022 glucagon (GVOK E) 1 mg/0.2 mL injection Indications: Type 2 diabetes mellitus with hyperglycemia, without long-term current use of insulin ([facility]) Inject 0.2 mL subcutaneously as needed. 0.4 mL 2 12/20/2022 Active Comment on above: Inject 0.2 mL subcut aneously as needed. lactobacillus acidophilus [id number] unt / pectin 10 mg oral capsule (20 sources) Start: 03-06-20 End: 07-26-20 acidophilus-pectin, citrus (ACIDOPHILUS PROBIOTIC) 100 million cell-10 mg cap Take 1 cap daily 90 capsule 2 03/06/2018 07/26/2022 Discontinued (Course of therapy completed) Comment on above: Take 1 cap daily magnesium oxide 500 mg oral capsule (20 sources) Start: 04-29-20 End: 12-25-19 take 1 capsule by mouth twice daily Magnesium Oxide 500 mg cap Take 1 capsule by mouth twice daily. 04/29/2020 07/26/2022 Discontinued (Course of therapy completed) Comment on above: Take 1 capsule by mo uth twice daily. Take 500 mg by mouth . mecobalamin 1 mg sublingual tablet (20 sources) Start: 07-14-20 End: 08-12-20 mecobalamin, vitamin B12, 1,000 mcg ODT DAILY 07/14/2019 08/12/2024 Discontinued Start: 07-14-2019 take 1 tablet by danny th once daily Mecobalamin (Vitamin B12) Active 1 TABLET PO DAILY July 14, 2019 12:00am End: 07-26-2022 take 1 tablet by mouth once daily mecobalamin, vitamin B12, 5,000 mcg ODT Take 1 tablet by mouth once daily. 07/26/2022 Discontinued (Course of therapy completed) Comment on above: Take 1 tablet by danny th once daily. DAILY metFORMIN hydrochloride 1000 mg oral tablet (20 sources) Biguanide Start: 7 End: 3 metFORMIN (GLUCOPHAGE) 1,000 mg tablet TAKE 1 TABLET TWICE DAILY 180 tablet 03/09/2021 12/02/2021 Discontinued Comment on above: TAKE 1 TABLET TWICE DAILY Take 1 tablet by danny th twice daily. (Hold for now. Panda Harrison MD, MPH) MULTIVITAMIN ORAL (1 source) End: 2 take 1 tablet by mouth once daily MULTIVITAMIN ORAL Take 1 tablet by mouth once daily. 01/27/2022 Discontinued Norethindrone (20 sources) Start: 2 End: 3 Norethindrone, Contraceptive, 0.35 mg tablet Indications: Hemorrhagic ovarian cyst TAKE 1 TABLET EVERY DAY 84 tablet 3 02/24/2022 12/01/2022 Discontinued Start: 02-24-2022 Norethindrone, Contraceptive, 0.35 mg tablet Indications: Hemorrhagic ovarian cyst TAKE 1 TABLET EVERY DAY 84 tablet 3 02/24/2022 Active Start: 12-16-2021 Norethindrone, Contraceptive, 0.35 mg tablet Indications: Hemorrhagic ovarian cyst TAKE 1 TABLET ONE TIME DAILY 84 tablet 0 12/16/2021 Active Start: 09-20-2018 End: 12-16-2021 take 1 tablet by mouth once daily Norethindrone, Contraceptive, (ORTHO MICRONOR) 0.35 mg tablet Indications: Hemorrhagic ovarian cyst Take 1 tablet by mouth once daily. 3 Package 3 12/30/2020 12/16/2021 Discontinued Comment on above: TAKE 1 TABLET ONE TI ME DAILY TAKE 1 TABLET EVERY DAY nortriptyline 50 mg oral capsule (1 source) Tricyclic Antidepressant Start: 2020 End: 2021 take 1 capsule by mouth once daily at bedtime nortriptyline (PAMELOR) 50 mg capsule TAKE 1 CAPSULE BY MOUTH DAILY AT BEDTIME. 90 capsule 08/30/2021 11/28/2021 Discontinued OZEMPIC 1 mg/dose (4 mg/3 mL) pen injector (20 sources) Start: 2021 End: 2021 inject 1 mg by subcutaneous injection every week OZEMPIC 1 mg/dose (4 mg/3 mL) pen injector INJECT 1 MG SUBCUTANEOUSLY ONE TIME A WEEK. 9 Each 2 12/16/2021 05/10/2022 Discontinued Start: 12-16-2021 inject 1 mg by subcu taneous injection every week OZEMPIC 1 mg/dose (4 mg/3 mL) pen injector INJECT 1 MG SUBCUTANEOUSLY ONE TIME A WEEK. 9 Each 2 12/16/2021 Active Comment on above: INJECT 1 MG SUBCUTANEOUSLY ONE TIME A WE EK. OZEMPIC 2 mg/dose (8 mg/3 mL) pen injector (15 sources) Start: 05-26-20 End: 11-14-19 inject 2 mg by subcutaneous injection every week OZEMPIC 2 mg/dose (8 mg/3 mL) pen injector Indications: Type 2 diabetes mellitus with hyperglycemia, with long-term current use of insulin (HCC) INJECT 2MG UNDER THE SKIN ONE TIME WEEKLY 9 Each 1 05/26/2023 11/14/2023 Discontinued Start: 05-26-2023 inject 2 mg by subcu taneous injection every week OZEMPIC 2 mg/dose (8 mg/3 mL) pen injector Indications: Type 2 diabetes mellitus with hyperglycemia, with long-term current use of insulin (HCC) INJECT 2MG UNDER THE SKIN ONE TIME WEEKLY 9 Each 1 05/26/2023 Active Comment on above: INJECT 2MG UNDER THE SKIN ONE TIME WEEKLY predniSONE 10 mg oral tablet (12 sources) Start: 10-25-2024 End: 01-08-2025 predniSONE (DELTASONE) 10 mg tablet Take in the morning with food. Take 2 tabs daily x 3 days, then 1 tab daily x 3 days, then stop. 9 tablet 10/25/2024 01/08/2025 Discontinued pregabalin 25 mg oral capsule (20 sources) Start: 01-15-2024 End: 06-07-2024 take 1 capsule by mouth once daily pregabalin (LYRICA) 25 mg capsule Indications: Fibromyalgia Take 1 capsule by mouth once daily for 30 days. 30 capsule 0 01/15/2024 06/07/2024 Discontinued Start: 12-15-2023 End: 01-15-2024 take 1 capsule by mouth twice daily pregabalin (LYRICA) 25 mg capsule Indications: Fibromyalgia Take 1 capsule by mouth two times a day for 30 days. 60 capsule 0 12/15/2023 01/15/2024 Discontinued Start: 12-13-2023 End: 12-15-2023 take 1 capsule by mouth twice daily pregabalin (LYRICA) 50 mg capsule Indications: Fibromyalgia Take 1 capsule by mouth two times a day for 90 days. 60 capsule 2 12/13/2023 12/15/2023 Discontinued Start: 10-20-2023 End: 11-22-2023 take 1 capsule by mouth twice daily pregabalin (LYRICA) 75 mg capsule Indications: Fibromyalgia Take 1 capsule by mouth two times a day for 30 days. 60 capsule 10/20/2023 11/22/2023 Discontinued (Dosage adjustment) Start: 09-18-2023 End: 10-20-2023 take 1 capsule by mouth twice daily pregabalin (LYRICA) 100 mg capsule Indications: Fibromyalgia Take 1 capsule by mouth two times a day for 30 days. 60 capsule 09/18/2023 10/20/2023 Discontinued (Dosage adjustment) Start: 08-08-2023 End: 11-06-2023 take 1 capsule by mouth twice daily pregabalin (LYRICA) 150 mg capsule Indications: Fibromyalgia Take 1 capsule by mouth two times a day for 90 days. 0 08/08/2023 09/18/2023 Discontinued Start: 07-14-2019 End: 12-03-2023 take 1 capsule by mouth three times daily pregabalin (LYRICA) 150 mg capsule Indications: Fibromyalgia Take 1 capsule by mouth three times daily for 180 days. 270 capsule 1 04/24/2021 10/18/2021 Discontinued Comment on above: Take 1 capsule by mo uth three times daily for 180 days. Take 1 capsule by mo uth two times a day for 90 days. Take 1 capsule by mo uth two times a day for 30 days. Take 1 capsule by mo uth once daily for 30 days. rizatriptan 10 mg disintegrating oral tablet (20 sources) Serotonin-1b and Serotonin-1d Receptor Agonist Start: 01-28-20 End: 08-12-20 take 1 tablet by mouth every two hours as needed for headache rizatriptan (MAXALT VENEER JOINER) 10 mg disintegrating tablet Indications: Intractable migraine without aura and without status migrainosus Take 1 tablet by mouth as needed for migraine headache (see administration instructions). May repeat in 2 hours if needed 9 tablet 2 01/27/2022 Active Start: 04-29-2020 Rizatriptan Ac tive 10 MG PO NEEDED April 29, 2020 12:00am Comment on above: Take 1 tablet by danny th as needed for migraine headache (see administration instructions). May repeat in 2 hours if needed 1 mg dose 1.5 ml semaglutide 1.34 mg/ml pen injector (6 sources) Start: 021 End: 022 inject 1 mg by subcutaneous injection every week semaglutide (OZEMPIC) 1 mg/0.75 ml subcutaneous pen injector Inject 1 mg subcutaneously one time a week. 9 mL 2 05/19/2021 12/16/2021 Discontinued Start: 10-06-2020 Semaglutide (O zempic) 0.25 mg or 0.5 mg(2 mg/1.5 mL) pen injector Active 0.5 MG SC EVERY WEEK October 06, 2020 1:00am semaglutide (OZEMPIC) 2 mg/dose (8 mg/3 mL) pen injector (20 sources) Start: 05-10-2022 End: 05-26-2023 inject 2 mg by subcutaneous injection every week semaglutide (OZEMPIC) 2 mg/dose (8 mg/3 mL) pen injector Indications: Type 2 diabetes mellitus with hyperglycemia, with long-term current use of insulin (HCC) Inject 2 mg subcutaneously one time a week. 15 mL 2 05/10/2022 05/26/2023 Discontinued Start: 05-10-2022 inject 2 mg by subcu taneous injection every week semaglutide (OZEMPIC) 2 mg/dose (8 mg/3 mL) pen injector Indications: Type 2 diabetes mellitus with hyperglycemia, with long-term current use of insulin (HCC) Inject 2 mg subcutaneously one time a week. 15 mL 2 05/10/2022 Active Comment on above: Inject 2 mg subcutan eously one time a week. semaglutide (OZEMPIC) 2 mg/dose (8 mg/3 mL) pen injector (16 sources) Start: End: inject 2 mg by subcutaneous injection every week semaglutide (OZEMPIC) 2 mg/dose (8 mg/3 mL) pen injector Indications: Type 2 diabetes mellitus with hyperglycemia, with long-term current use of insulin (HCC) INJECT 2MG UNDER THE SKIN ONE TIME WEEKLY 9 Each 2 11/14/2023 02/16/2024 Discontinued Start: 11-14-2023 inject 2 mg by subcu taneous injection every week semaglutide (OZEMPIC) 2 mg/dose (8 mg/3 mL) pen injector Indications: Type 2 diabetes mellitus with hyperglycemia, with long-term current use of insulin (HCC) INJECT 2MG UNDER THE SKIN ONE TIME WEEKLY 9 Each 2 11/14/2023 Active Comment on above: INJECT 2MG UNDER THE SKIN ONE TIME WEEKLY SITagliptin 100 mg oral tablet (5 sources) Dipeptidyl Peptidase 4 Inhibitor Start: 7 End: 9 take 50 mg by mouth once daily Sitagliptin Phosphate Discontinued 50 MG PO DAILY March 06, 2017 12:00am March 19, 2019 10:47am tamsulosin hydrochloride 0.4 mg oral capsule (20 sources) alpha-Adrenergic Jael Start: End: take 1 capsule by mouth once daily at bedtime tamsulosin (FLOMAX) 0.4 mg Take 1 capsule by mouth daily at bedtime for 14 days. 14 capsule 12/12/2024 02/17/2025 Discontinued Start: 06-02-2024 End: 08-12-2024 take 1 capsule by mouth once daily at bedtime tamsulosin (FLOMAX) 0.4 mg Take 1 capsule by mouth daily at bedtime for 7 days. 7 capsule 06/02/2024 08/12/2024 Discontinued (Course of therapy completed) Start: 05-06-2024 End: 05-17-2024 take 1 capsule by mouth once daily at bedtime tamsulosin (FLOMAX) 0.4 mg Take 1 capsule by mouth daily at bedtime for 7 days. 7 capsule 0 05/06/2024 05/17/2024 Discontinued tirzepatide (MOUNJARO) 5 mg/0.5 mL pen injector (2 sources) Start: 10-17-2022 End: 10-20-2022 inject 5 mg by subcutaneous injection every week, then inject 5 mg by subcutaneous injection every week tirzepatide (MOUNJARO) 5 mg/0.5 mL pen injector Inject 5 mg subcutaneously one time a week. While Ozempic is out. Contact Dr. Harrison after 4 weeks for higher dose if 5 mg weekly is tolerated 6 mL 2 10/17/2022 10/20/2022 Discontinued Start: 10-17-2022 inject 5 mg by subcu taneous injection every week, then inject 5 mg by subcutaneous injection every week tirzepatide (MOUNJARO) 5 mg/0.5 mL pen injector Inject 5 mg subcutaneously one time a week. While Ozempic is out. Contact Dr. Harrison after 4 weeks for higher dose if 5 mg weekly is tolerated 6 mL 2 10/17/2022 Active Comment on above: Inject 5 mg subcutan eously one time a week. While Ozempic is out. Contact Dr. Harrison after 4 weeks for higher dose if 5 mg weekly is tolerated triamcinolone acetonide 40 mg/ml injectable suspension (8 sources) Corticosteroid Start: 03-30-2021 End: 03-30-2021 Kenalog (triamcinolone acetonide) 40 mg/mL suspension for injection Discontinued 40 MG INTRAARTIC ONCE 1 March 30, 2021 9:35am March 30, 2021 10:32am Start: 02-02-2021 End: 02-02-2021 Kenalog (triamcinolone aceto nide) 40 mg/mL suspension for injection Discontinued 20 MG INTRAARTIC ONCE 0.5 February 02, 2021 10:21am February 02, 2021 10:58am Start: 10-06-2020 End: 10-06-2020 Kenalog (triamcinolone aceto nide) 40 mg/mL suspension for injection Discontinued 20 MG INTRAARTIC ONCE 0.5 October 06, 2020 2:01pm October 06, 2020 2:39pm Start: 03-31-2020 End: 03-31-2020 Kenalog (triamcinolone aceto nide) 40 mg/mL suspension for injection Discontinued 40 MG INTRAARTIC ONCE 1 March 31, 2020 9:44am March 31, 2020 10:07am Start: 10-18-2019 End: 10-18-2019 Kenalog (triamcinolone aceto nide) 40 mg/mL suspension for injection Discontinued 20 MG INTRAARTIC ONCE 0.5 October 18, 2019 1:20pm October 18, 2019 2:48pm Start: 03-19-2019 End: 03-19-2019 Kenalog (triamcinolone aceto nide) 40 mg/mL suspension for injection Discontinued 160 MG INTRAARTIC ONCE 4 March 19, 2019 10:34am March 19, 2019 11:15am Start: 09-20-2018 End: 09-20-2018 Kenalog (triamcinolone aceto nide) 40 mg/mL suspension for injection Discontinued 80 MG INTRAARTIC ONCE 2 September 20, 2018 1:56pm September 20, 2018 2:28pm Start: 02-27-2018 End: 02-27-2018 Kenalog (triamcinolone aceto nide) 10 mg/mL suspension for injection Discontinued 2 MG INTRAARTIC ONCE 0.2 February 27, 2018 2:57pm February 27, 2018 4:01pm urea 400 mg/ml topical cream (3 sources) Start: 03-05-2021 End: 01-04-2022 urea (CARMOL) 40 % Apply to affected area once daily. 198 g 11 03/10/2021 01/04/2022 Discontinued (Course of therapy completed) Start: 12-04-2020 End: 12-04-2021 urea (CARMOL) 40 % Apply to affected area as needed. 85 g 11 12/04/2020 12/04/2021 zolpidem tartrate 5 mg oral tablet (5 sources) gamma-Aminobutyric Acid-ergic Agonist Start: 05-06-2020 End: 02-02-2021 take 5 mg by mouth at bedtime as needed Zolpidem Discontinued 5 MG PO AT BEDTIME NEEDED May 06, 2020 12:00am February 02, 2021 10:30am Problems Active Problems Problem Classification Problem Date Documented Da te Episodic/Chronic Abdominal pain (5 sources) Left lower quadrant pain; Translations: [Left lower quadrant pain] Episodic Allergic reactions (20 sources) Atopic dermatitis; Translations: [Atopic dermatitis, unspecified] Onset: 1 11-23-2010 Chronic Cataract (20 sources) Nuclear sclerosis; Translations: [Age-related nuclear cataract, bilateral] Onset: 8 06-26-2018 Chronic Contraceptive and procreative management (18 sources) Patient encounter status; Translations: [Encounter for other general counseling and advice on contraception] Episodic Diabetes mellitus with complications (20 sources) Type 2 diabetes mellitus; Translations: [Type 2 diabetes mellitus with mild nonproliferative diabetic retinopathy without macular edema, bilateral] Onset: 8 06-26-2018 Chronic Diabetes mellitus without complication (20 sources) Insulin treated type 2 diabetes mellitus; Translations: [Type 2 diabetes mellitus without complications] Onset: 8 12-06-2018 Chronic Disorders of lipid metabolism (20 sources) Mixed hyperlipidemia; Translations: [Mixed hyperlipidemia] Onset: 7 02-05-2016 Chronic E Codes: Natural/environment (2 sources) Tick bite; Translations: [Bitten or stung by nonvenomous insect and other nonvenomous arthropods, sequela] Onset: 5 03-24-2025 Episodic Esophageal disorders (20 sources) Gastroesophageal reflux disease without esophagitis; Translations: [Gastro-esophageal reflux disease without esophagitis] Onset: 9 08-15-2019 Chronic Headache; including migraine (20 sources) Migraine without aura; Translations: [Migraine without aura, not intractable, without status migrainosus] Onset: 4 12-18-2013 Chronic Menstrual disorders (1 source) Secondary amenorrhea; Translations: [Secondary amenorrhea] Chronic Mycoses (1 source) Candidal intertrigo; Translations: [Candidiasis of skin and nail] Episodic Noninfectious gastroenteritis (7 sources) Inflammatory bowel disease; Translations: [Noninfective gastroenteritis and colitis, unspecified] Episodic Osteoarthritis (20 sources) Osteoarthritis of left hip joint; Translations: [Unilateral primary osteoarthritis, left hip] Onset: 5 03-24-2025 Chronic Other aftercare (3 sources) Long-term current use of immunosuppressive drug; Translations: [Long-term use of immunosuppressant medication] 2023 Episodic Other aftercare (3 sources) Long-term current use of drug therapy; Translations: [Other longitudinal float operator (current) drug therapy] 06-06-2024 Episodic Other circulatory disease (1 source) Abnormal peripheral pulse; Translations: [Other specified symptoms and signs involving the circulatory and respiratory systems] Episodic Other connective tissue disease (5 sources) Inflammation of rotator cuff tendon; Translations: [Other shoulder lesions, unspecified shoulder] 03-30-2021 Episodic Other connective tissue disease (5 sources) Biceps tendinitis; Translations: [Bicipital tendinitis, unspecified shoulder] 03-30-2021 Episodic Other connective tissue disease (4 sources) Lateral epicondylitis of right humerus; Translations: [Lateral epicondylitis, right elbow] Episodic Other connective tissue disease (1 source) Pain of left hand; Translations: [Pain in left hand] 10-11-2023 Episodic Other connective tissue disease (19 sources) Bursitis of right shoulder; Translations: [Bursitis of right shoulder] Onset: 5 03-24-2025 Episodic Other connective tissue disease (1 source) Bursitis of right shoulder; Translations: [Bursitis of right shoulder] Onset: 5 Episodic Other endocrine disorders (1 source) Hyperparathyroidism; Translations: [Hyperparathyroidism, unspecified] Chronic Other endocrine disorders (3 sources) Primary hyperparathyroidism; Translations: [Primary hyperparathyroidism] Chronic Other eye disorders (20 sources) Bilateral vitreous floaters; Translations: [Other vitreous opacities, bilateral] Onset: 8 06-26-2018 Chronic Other female genital disorders (1 source) History of gynecological disorder; Translations: [Personal history of other diseases of the female genital tract] Episodic Other gastrointestinal disorders (2 sources) Ileostomy present; Translations: [Encounter for attention to ileostomy] Chronic Other inflammatory condition of skin (20 sources) Psoriasis; Translations: [Psoriasis, unspecified] Onset: 1 01-16-2020 Chronic Other inflammatory condition of skin (20 sources) Psoriatic arthritis; Translations: [Arthropathic psoriasis, unspecified] Onset: 4 2023 Chronic Other liver diseases (20 sources) Non-alcoholic fatty liver; Translations: [Fatty (change of) liver, not elsewhere classified] Onset: 7 03-08-2012 Chronic Other liver diseases (20 sources) Fatty (change of) liver, not elsewhere classified; Translations: [Other chronic nonalcoholic liver disease] Onset: 7 03-08-2012 Chronic Other lower respiratory disease (1 source) Cough; Translations: [Acute cough] 11-07-2023 Episodic Other nervous system disorders (1 source) Lesion of ulnar nerve, right upper limb; Translations: [Ulnar neuropathy of right upper extremity] Onset: 5 Chronic Other non-traumatic joint disorders (3 sources) Chronic pain of right upper limb; Translations: [Pain in right shoulder] Episodic Other non-traumatic joint disorders (9 sources) Multiple joint pain; Translations: [Pain in unspecified joint] Episodic Other non-traumatic joint disorders (2 sources) Pain of left wrist; Translations: [Pain in left wrist] 10-04-2023 Episodic Other non-traumatic joint disorders (2 sources) Pain in left knee; Translations: [Pain in joint, lower leg] Onset: 5 03-14-2025 Episodic Other non-traumatic joint disorders (20 sources) Hip pain; Translations: [Pain in left hip] Onset: 5 03-14-2025 Episodic Other non-traumatic joint disorders (6 sources) Joint swelling; Translations: [Effusion, unspecified joint] 03-24-2025 Episodic Other non-traumatic joint disorders (1 source) Pain in left hip; Translations: [Pain in left hip] Onset: 5 Episodic Other non-traumatic joint disorders (1 source) Pain in unspecified joint; Translations: [Pain in joint, multiple sites] Onset: 5 Episodic Other non-traumatic joint disorders (1 source) Effusion, unspecified joint; Translations: [Joint swelling] Onset: 5 Episodic Other nutritional; endocrine; and metabolic disorders (20 sources) Obese class I; Translations: [Obesity, unspecified] Onset: 9 11-27-2018 Chronic Other nutritional; endocrine; and metabolic disorders (20 sources) Obese class II; Translations: [Obesity, unspecified] Onset: 1 01-20-2021 Chronic Other nutritional; endocrine; and metabolic disorders (1 source) Aciduria; Translations: [Disorder of amino-acid metabolism, unspecified] 07-17-2024 Chronic Other skin disorders (1 source) Ingrowing nail of toe of left foot; Translations: [Ingrowing nail] Episodic Other skin disorders (1 source) Ingrowing nail of toe of right foot; Translations: [Ingrowing nail] Episodic Other skin disorders (1 source) Dystrophia unguium; Translations: [Nail dystrophy] Episodic Other upper respiratory disease (20 sources) Chronic rhinitis; Translations: [Chronic rhinitis] Onset: 8 11-22-2017 Chronic Ovarian cyst (1 source) Cyst of ovary; Translations: [Unspecified ovarian cyst, unspecified side] Episodic Regional enteritis and ulcerative colitis (20 sources) Crohn's disease of large bowel; Translations: [Crohn's disease of large intestine without complications] Onset: 6 08-07-2006 Chronic Residual codes; unclassified (1 source) Pain; Translations: [Pain, unspecified] 03-14-2025 Episodic Spondylosis; intervertebral disc disorders; other back problems (20 sources) Disorder of joint of spine; Translations: [Spondylosis without myelopathy or radiculopathy, site unspecified] Onset: 1 10-04-2021 Chronic Spondylosis; intervertebral disc disorders; other back problems (20 sources) Low back pain; Translations: [Lumbago] Onset: 7 01-10-2007 Episodic Substance-related disorders (1 source) Opioid dependence, uncomplicated; Translations: [Opioid dependence, uncomplicated] Onset: 5 Chronic Unclassified (2 sources) Long-term use of immunosuppressant medication; Translations: [Long-term use of immunosuppressant medication] Onset: 5 Past or Other Problems Problem Classification Problem Date Documented Date Episodic/Chronic Allergic reactions (20 sources) Eczema; Translations: [Dermatitis, unspecified] Onset: 11-23-2010 Resolved: 01-03-2017 02-18-2013 Episodic Calculus of urinary tract (20 sources) Ureteric stone; Translations: [Calculus of ureter] Onset: 07-18-2019 Resolved: 02-06-2023 07-18-2019 Episodic Deficiency and other anemia (20 sources) Anemia; Translations: [Anemia, unspecified] Onset: 01-10-2007 Resolved: 03-08-2012 03-08-2012 Episodic Diabetes mellitus without complication (20 sources) Abnormal glucose tolerance test; Translations: [Other abnormal glucose] Onset: 01-31-2008 Resolved: 04-16-2008 04-16-2008 Episodic E Codes: Adverse effects of medical drugs (20 sources) Corticosteroids adverse reaction; Translations: [Adverse effect of glucocorticoids and synthetic analogues, initial encounter] Onset: 01-03-2019 01-03-2019 Episodic Genitourinary symptoms and ill-defined conditions (20 sources) Hypercalciuria; Translations: [Hypercalciuria] Onset: 01-01-2007 Resolved: 11-27-2018 Episodic Mood disorders (20 sources) Depressive disorder; Translations: [Depression] Onset: 08-30-2010 Resolved: 11-27-2018 11-27-2018 Chronic Nutritional deficiencies (20 sources) Cobalamin deficiency; Translations: [Deficiency of other specified B group vitamins] Onset: 07-09-2015 07-09-2015 Episodic Other aftercare (1 source) 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; Translations: [Type 2 diabetes mellitus with hyperglycemia, with long-term current use of insulin (HCC)] Onset: 02-14-2025 Episodic Other aftercare (1 source) Other care home (current) drug therapy; Translations: [Encounter for long-term (current) use of medications] Onset: 06-07-2024 Episodic Other bone disease and musculoskeletal deformities (20 sources) Disorder of bone; Translations: [Other specified disorders of bone, unspecified site] Onset: 12-06-2018 12-06-2018 Episodic Other connective tissue disease (20 sources) Lateral epicondylitis of left humerus; Translations: [Lateral epicondylitis, left elbow] Onset: 01-14-2022 Resolved: 04-04-2022 Episodic Other connective tissue disease (20 sources) Fibromyalgia; Translations: [Fibromyalgia] Onset: 05-05-2008 Resolved: 04-19-2011 12-13-2016 Episodic Other connective tissue disease (20 sources) Plantar fasciitis; Translations: [Plantar fascial fibromatosis] Onset: 08-02-2019 Resolved: 09-17-2021 Episodic Other connective tissue disease (20 sources) Impingement syndrome of right shoulder region; Translations: [Impingement syndrome of right shoulder] Onset: 06-22-2021 Resolved: 08-11-2023 03-18-2022 Episodic Other connective tissue disease (20 sources) Tear of right rotator cuff; Translations: [Unspecified rotator cuff tear or rupture of right shoulder, not specified as traumatic] Onset: 06-22-2021 Resolved: 06-22-2021 06-22-2021 Episodic Other connective tissue disease (20 sources) Other symptoms and signs involving the musculoskeletal system; Translations: [Other musculoskeletal symptoms referable to limbs] Onset: 06-25-2021 Resolved: 09-17-2021 09-17-2021 Episodic Other diseases of kidney and ureters (20 sources) Hydronephrosis with renal and ureteral calculous obstruction; Translations: [Calculus of ureter] Onset: 12-11-2024 12-11-2024 Episodic Other endocrine disorders (20 sources) Hypoglycemia; Translations: [Hypoglycemia, unspecified] Onset: 10-24-2011 Resolved: 03-08-2012 03-08-2012 Chronic Other eye disorders (20 sources) Tear film insufficiency; Translations: [Dry eye syndrome of bilateral lacrimal glands] Onset: 07-23-2020 07-23-2020 Episodic Other female genital disorders (20 sources) Cervical intraepithelial neoplasia grade 1; Translations: [Mild cervical dysplasia] Onset: 10-27-2009 Resolved: 03-08-2012 03-08-2012 Episodic Other non-traumatic joint disorders (20 sources) Shoulder pain; Translations: [Pain in right shoulder] Onset: 09-20-2018 11-27-2018 Episodic Other non-traumatic joint disorders (20 sources) Pain in elbow; Translations: [Pain in right elbow] Onset: 02-17-2023 Resolved: 08-11-2023 Episodic Other non-traumatic joint disorders (20 sources) Pain in right shoulder; Translations: [Pain in joint, shoulder region] Onset: 09-20-2018 Resolved: 08-11-2023 11-27-2018 Episodic Other non-traumatic joint disorders (20 sources) Pain in left shoulder; Translations: [Pain in joint, shoulder region] Onset: 09-20-2018 Resolved: 02-06-2023 02-06-2023 Episodic Other non-traumatic joint disorders (20 sources) Decreased range of shoulder movement; Translations: [Stiffness of right shoulder, not elsewhere classified] Onset: 06-25-2021 Resolved: 09-17-2021 09-17-2021 Episodic Other nutritional; endocrine; and metabolic disorders (20 sources) Hypercalcemia; Translations: [Hypercalcemia] Onset: 05-19-2021 Resolved: 02-06-2023 05-19-2021 Chronic Other screening for suspected conditions (not mental disorders or infectious disease) (20 sources) Abnormal findings on diagnostic imaging of limbs; Translations: [Abnormal findings on diagnostic imaging of limbs] Onset: 08-24-2007 Resolved: 04-19-2011 10-04-2023 Episodic Other skin disorders (20 sources) Asteatosis cutis; Translations: [Xerosis cutis] Onset: 11-23-2010 Resolved: 02-18-2013 02-18-2013 Episodic Residual codes; unclassified (20 sources) History of operative procedure on shoulder; Translations: [Other specified postprocedural states] Onset: 05-29-2020 Resolved: 08-11-2023 Episodic Residual codes; unclassified (2 sources) Pain, unspecified; Translations: [Pain] Onset: 12-11-2024 Episodic Skin and subcutaneous tissue infections (20 sources) Disorder of nail; Translations: [Cellulitis of unspecified toe] Onset: 09-26-2007 Resolved: 02-18-2013 02-18-2013 Episodic Sprains and strains (20 sources) Sprain of left wrist; Translations: [Unspecified sprain of left wrist, initial encounter] Onset: 02-18-2015 Resolved: 05-24-2018 05-24-2018 Episodic Viral infection (20 sources) Recurrent herpes simplex labialis; Translations: [Herpesviral vesicular dermatitis] Onset: 09-11-2014 Resolved: 08-11-2023 09-11-2014 Episodic Results Test Name Value Interpretation Reference Range Facil ity CNPNon 05-14-2025 CNPN Telephone (ENDOMN) SID LEZAMA ([id number]) 1975 F Date Time Provider Department 05/14/25 PANDA HARRISON ENDOMN During your visit today, we recorded the following information about you: Alayna Juarez 05/14/2025 10:41 AM Addendum May 14, 2025 10:39 AM [facility] form received. Indexed to chart. . Alayna Juarez Chief Service [facility] [id number] Panda Harrison MD 05/15/2025 2:[address] Allergies As of Date: 05/14/2025 Noted Allergy Reaction AZITHROMYCIN 03/18/2021 16 - Unknown Comments: thinks a rash DILAUDID (HYDROMORPHONE (BULK)) 08/07/2006 7 - Swelling [...] 7 - Swelling Comments: migraines Date Reviewed: 05/09/2025 Reviewed by: Sadie Hagen MA - Fully Assessed Reason for Visit: Forms [913] Prescriptions as of 05/15/2025 - methotrexate sodium 25 mg/mL soln Inject 15mg (0.6mL) subcutaneously once weekly - Syringe with Needle, Disp, (BD TUBERCULIN SYRINGE) 1 mL 25 gauge x 5/8 Use once weekly with methotrexate injections - folic acid 1 mg tablet Take 1 tablet by mouth once daily. - Insulin Lynch, Disposable, (DROPLET PEN NEEDLE) 32 gauge x 5/32 USE TO INJECT INSULIN UP TO 8 TIMES PER DAY - ustekinumab (STELARA) 45 mg/0.5 mL syringe Inject 45 mg (1 syringe) subcutaneously every 8 weeks - naproxen sodium (ALEVE ORAL) Take by mouth. Once daily - insulin lispro (HUMALOG KWIKPEN) 100 unit/mL Inject 2 Units subcutaneously three times a day before meals. Plus sliding scale #2 If blood sugar is: Additional units < 150 0 151-200 2 201-250 4 251-300 6 301-350 8 > 350 18 units Max daily dose - insulin glargine (LANTUS SOLOSTAR U-100 INSULIN) 100 unit/mL (3 mL) INJECT 40 UNITS UNDER THE SKIN EVERY evening - Blood-Glucose Sensor (FREESTYLE GIANFRANCO 3 PLUS SENSOR) matilda Apply new sensor every fifteen (15) days to upper arm. - potassium citrate ER (UROCIT-K) 10 mEq (1,080 mg) Take 1 tablet by mouth two times a day. - pantoprazole DR (PROTONIX) 20 mg tablet Take 1 tablet by mouth daily before breakfast. Take on empty stomach, 1/2 hr before meal. - blood sugar diagnostic (ACCU-CHEK GUIDE TEST STRIPS) test strip USE WITH BLOOD GLUCOSE TEST THREE TIMES A DAY. - Lancets (ACCU-CHEK FASTCLIX LANCET DRUM) Use as instructed to check blood glucose up to 2 times daily. E11.9 - Lancing Device with Lancets ACCU CHEK FASTCLIX LANCET *DEVICE* use to check blood glucose up to 2 times per day as instructed. E11.9 - GVOKE PFS 1-PACK SYRINGE 1 mg/0.2 mL syrg INJECT 0.2 ML UNDER THE SKIN NEEDED. - clobetasol (TEMOVATE) 0.05 % ointment Apply to affected area two times a day. Face. Feet. Two weeks on and two weeks off, per [facility]. - fexofenadine HCl (LELA ORAL) Take by mouth. - levonorgestrel (MIRENA) 20 mcg/24 hours (8 yrs) 52 mg IUD 1 Each by INTRAUTERINE route as directed. - oxyCODONE-acetaminophen (PERCOCET) 5-325 mg tablet TAKE 1 TABLET BY MOUTH 3 TIMES A DAY NEEDED FOR 28 DAYS - vits62/FA/om3/dha/epa ( GUMMY ORAL) Take 2 Doses by mouth once daily. - Blood-Glucose Meter (ACCU-CHEK DIANNE) Test blood sugar(s) 2 times daily. Dx: Type 2 DM - Controlled E11.9 Insulin: No, Accu-check brand covered by insurance - Ascorbic Acid 500 mg chew Take 1,000 mg by mouth once daily. With rosehips - elderberry fruit (ELDERBERRY ORAL) Take by mouth. - COMPOUNDED PRESCRIPTION 1. V44.2 Ileostomy status ([facility]) (primary diagnosis) 2. 555.1 Regional enteritis of large intestine ([facility]) Ileostomy Supplies. 1. Pouches, 2. Planges, 3. Felipe seals, 4. Stoma adhesive, 5. Stoma powder, 6. Skin preps, 7. Adhesive remover wipes. Dispense 1 year supplies. - tiZANidine (ZANAFLEX) 4 mg tablet Take by mouth. . Takes 1 tablet at bedtime. Problem List As Of Date 05/14/2025 Noted Resolved REG ENTERITIS, LG INTEST [K50.10] 08/07/2006 Retention of urine, unspecified [R33.9] 01/01/2007 11/27/2018 Mixed hyperlipidemia [E78.2] 01/10/2007 Anemia, unspecified [D64.9] 01/10/2007 03/08/2012 Nonspecific abnormal results of liver function *08/24/2007 04/19/2011 Onychia and paronychia of toe [L03.039] 09/26/2007 02/18/2013 ILEOSTOMY STATUS [Z93.2] 09/28/2007 IMPAIRED GLUCOSE JUNE TEST [R73.09] 01/31/2008 04/16/2008 Type 2 diabetes mellitus treated with insulin (*02/12/2008 Fibromyalgia [M79.7] 05/05/2008 Non-alcoholic fatty liver disease [K76.0] 08/24/2007 Mild dysplasia of cervix [N87.0] 10/27/2009 03/08/2012 Fibromyalgi (more content not included)... Normal [facility] CNTHERAPYon 05-01-2025 CNTHERAPY OT/PT/Speech Visit (PTWS) SID LEZAMA ([id number]) 1975 F Date Time Provider Department 05/01/25 3:45 PM YURI PITT PTALEJA Date Time Provider Department Center 05/01/2025 3:45 PM [id number], SEAN PTWS Raven Payne Reason for Visit: PT Discharge [752] Primary Visit Diagnosis:Pain in left hip [M25.552] Other Visit Diagnoses:Bursitis of right shoulder [M75.51] Primary osteoarthritis of left hip [M16.12] Allergies As of Date: 05/01/2025 Noted Allergy Reaction AZITHROMYCIN 03/18/2021 16 - Unknown Comments: thinks a rash DILAUDID (HYDROMORPHONE (BULK)) 08/07/2006 7 - Swelling [...] 7 - Swelling Comments: migraines Date Reviewed: 03/24/2025 Reviewed by: Justine Bautista MA - Fully Assessed Prescriptions as of 05/02/2025 - methotrexate sodium 25 mg/mL soln Inject 15mg (0.6mL) subcutaneously once weekly - Syringe with Needle, Disp, (BD TUBERCULIN SYRINGE) 1 mL 25 gauge x 5/8 Use once weekly with methotrexate injections - folic acid 1 mg tablet Take 1 tablet by mouth once daily. - Insulin Lynch, Disposable, (DROPLET PEN NEEDLE) 32 gauge x 5/32 USE TO INJECT INSULIN UP TO 8 TIMES PER DAY - ustekinumab (STELARA) 45 mg/0.5 mL syringe Inject 45 mg (1 syringe) subcutaneously every 8 weeks - naproxen sodium (ALEVE ORAL) Take by mouth. Once daily - insulin lispro (HUMALOG KWIKPEN) 100 unit/mL Inject 2 Units subcutaneously three times a day before meals. Plus sliding scale #2 If blood sugar is: Additional units < 150 0 151-200 2 201-250 4 251-300 6 301-350 8 > 350 18 units Max daily dose - insulin glargine (LANTUS SOLOSTAR U-100 INSULIN) 100 unit/mL (3 mL) INJECT 40 UNITS UNDER THE SKIN EVERY evening - Blood-Glucose Sensor (FREESTYLE GIANFRANCO 3 PLUS SENSOR) matilda Apply new sensor every fifteen (15) days to upper arm. - potassium citrate ER (UROCIT-K) 10 mEq (1,080 mg) Take 1 tablet by mouth two times a day. - pantoprazole DR (PROTONIX) 20 mg tablet Take 1 tablet by mouth daily before breakfast. Take on empty stomach, 1/2 hr before meal. - blood sugar diagnostic (ACCU-CHEK GUIDE TEST STRIPS) test strip USE WITH BLOOD GLUCOSE TEST THREE TIMES A DAY. - Lancets (ACCU-CHEK FASTCLIX LANCET DRUM) Use as instructed to check blood glucose up to 2 times daily. E11.9 - Lancing Device with Lancets ACCU CHEK FASTCLIX LANCET *DEVICE* use to check blood glucose up to 2 times per day as instructed. E11.9 - GVOKE PFS 1-PACK SYRINGE 1 mg/0.2 mL syrg INJECT 0.2 ML UNDER THE SKIN NEEDED. - clobetasol (TEMOVATE) 0.05 % ointment Apply to affected area two times a day. Face. Feet. Two weeks on and two weeks off, per [facility]. - fexofenadine HCl (LELA ORAL) Take by mouth. - levonorgestrel (MIRENA) 20 mcg/24 hours (8 yrs) 52 mg IUD 1 Each by INTRAUTERINE route as directed. - oxyCODONE-acetaminophen (PERCOCET) 5-325 mg tablet TAKE 1 TABLET BY MOUTH 3 TIMES A DAY NEEDED FOR 28 DAYS - vits62/FA/om3/dha/epa ( GUMMY ORAL) Take 2 Doses by mouth once daily. - Blood-Glucose Meter (ACCU-CHEK DIANNE) Test blood sugar(s) 2 times daily. Dx: Type 2 DM - Controlled E11.9 Insulin: No, Accu-check brand covered by insurance - Ascorbic Acid 500 mg chew Take 1,000 mg by mouth once daily. With rosehips - elderberry fruit (ELDERBERRY ORAL) Take by mouth. - COMPOUNDED PRESCRIPTION 1. V44.2 Ileostomy status (HCC) (primary diagnosis) 2. 555.1 Regional enteritis of large intestine (HCC) Ileostomy Supplies. 1. Pouches, 2. Planges, 3. Felipe seals, 4. Stoma adhesive, 5. Stoma powder, 6. Skin preps, 7. Adhesive remover wipes. Dispense 1 year supplies. - tiZANidine (ZANAFLEX) 4 mg tablet Take by mouth. . Takes 1 tablet at bedtime. Normal [facility] CNTHERAPYon 04-24-2025 CNTHERAPY OT/PT/Speech Visit (PTWS) SID LEZAMA ([id number]) 1975 F Date Time Provider Department 04/24/25 4:30 PM YURI PITT PTALEJA Date Time Provider Department [place] 04/24/2025 4:30 PM [id number], SEAN PTALEJA Payne Reason for Visit: Physical Therapy [503] Primary Visit Diagnosis:Pain in left hip [M25.552] Other Visit Diagnoses:Bursitis of right shoulder [M75.51] Primary osteoarthritis of left hip [M16.12] Allergies As of Date: 04/24/2025 Noted Allergy Reaction AZITHROMYCIN 03/18/2021 16 - Unknown Comments: thinks a rash DILAUDID (HYDROMORPHONE (BULK)) 08/07/2006 7 - Swelling [...] 7 - Swelling Comments: migraines Date Reviewed: 03/24/2025 Reviewed by: Justine Bautista MA - Fully Assessed Prescriptions as of 04/25/2025 - methotrexate sodium 25 mg/mL soln Inject 15mg (0.6mL) subcutaneously once weekly - Syringe with Needle, Disp, (BD TUBERCULIN SYRINGE) 1 mL 25 gauge x 5/8 Use once weekly with methotrexate injections - folic acid 1 mg tablet Take 1 tablet by mouth once daily. - Insulin Lynch, Disposable, (DROPLET PEN NEEDLE) 32 gauge x 5/32 USE TO INJECT INSULIN UP TO 8 TIMES PER DAY - ustekinumab (STELARA) 45 mg/0.5 mL syringe Inject 45 mg (1 syringe) subcutaneously every 8 weeks - naproxen sodium (ALEVE ORAL) Take by mouth. Once daily - insulin lispro (HUMALOG KWIKPEN) 100 unit/mL Inject 2 Units subcutaneously three times a day before meals. Plus sliding scale #2 If blood sugar is: Additional units < 150 0 151-200 2 201-250 4 251-300 6 301-350 8 > 350 18 units Max daily dose - insulin glargine (LANTUS SOLOSTAR U-100 INSULIN) 100 unit/mL (3 mL) INJECT 40 UNITS UNDER THE SKIN EVERY evening - Blood-Glucose Sensor (FREESTYLE GIANFRANCO 3 PLUS SENSOR) matilda Apply new sensor every fifteen (15) days to upper arm. - potassium citrate ER (UROCIT-K) 10 mEq (1,080 mg) Take 1 tablet by mouth two times a day. - pantoprazole DR (PROTONIX) 20 mg tablet Take 1 tablet by mouth daily before breakfast. Take on empty stomach, 1/2 hr before meal. - blood sugar diagnostic (ACCU-CHEK GUIDE TEST STRIPS) test strip USE WITH BLOOD GLUCOSE TEST THREE TIMES A DAY. - Lancets (ACCU-CHEK FASTCLIX LANCET DRUM) Use as instructed to check blood glucose up to 2 times daily. E11.9 - Lancing Device with Lancets ACCU CHEK FASTCLIX LANCET *DEVICE* use to check blood glucose up to 2 times per day as instructed. E11.9 - GVOKE PFS 1-PACK SYRINGE 1 mg/0.2 mL syrg INJECT 0.2 ML UNDER THE SKIN NEEDED. - clobetasol (TEMOVATE) 0.05 % ointment Apply to affected area two times a day. Face. Feet. Two weeks on and two weeks off, per [facility] D[facility]. - fexofenadine HCl (LELA ORAL) Take by mouth. - levonorgestrel (MIRENA) 20 mcg/24 hours (8 yrs) 52 mg IUD 1 Each by INTRAUTERINE route as directed. - oxyCODONE-acetaminophen (PERCOCET) 5-325 mg tablet TAKE 1 TABLET BY MOUTH 3 TIMES A DAY NEEDED FOR 28 DAYS - vits62/FA/om3/dha/epa ( GUMMY ORAL) Take 2 Doses by mouth once daily. - Blood-Glucose Meter (ACCU-CHEK DIANNE) Test blood sugar(s) 2 times daily. Dx: Type 2 DM - Controlled E11.9 Insulin: No, Accu-check brand covered by insurance - Ascorbic Acid 500 mg chew Take 1,000 mg by mouth once daily. With rosehips - elderberry fruit (ELDERBERRY ORAL) Take by mouth. - COMPOUNDED PRESCRIPTION 1. V44.2 Ileostomy status (HCC) (primary diagnosis) 2. 555.1 Regional enteritis of large intestine (HCC) Ileostomy Supplies. 1. Pouches, 2. Planges, 3. Felipe seals, 4. Stoma adhesive, 5. Stoma powder, 6. Skin preps, 7. Adhesive remover wipes. Dispense 1 year supplies. - tiZANidine (ZANAFLEX) 4 mg tablet Take by mouth. . Takes 1 tablet at bedtime. Surgical Instrument Technician: Addendum Therapy (PT/OT/Speech/Resp) ID: [id number] 04/24/2025 5:00 PM Author: YURI PITT Signed by YURI PITT PT on 04/24/2025 at 5:01 PM * * * This document replaces document [id number] * * * Document text: Program_ID:[id number] Access Code: [email or web address] URL: [email or web address]/ Date: 04-24-2025 Prepared By: Yuri Pitt Program Notes Exercises - Sidelying Hip Abduction - 1 x daily - 7 x weekly - 3 sets - 10 reps - Clamshell - 1 x daily - 7 x weekly - 3 sets - 10 reps - Quadruped Pelvic Floor Contraction with Opposite Arm and Leg Lift - 1 x daily - 7 x weekly - 3 sets - 10 reps - Prone Single Arm Shoulder Y - 1 x bentley (more content not included)... Normal [facility] THERAPY NTon 04-24-2025 THERAPY NT HNO ID: [id number] Author: YURI PITT PT Service: ? Author Type: Physical Therapist Type: Therapy (PT/OT/Speech/Resp) Filed: 04/24/2025 17:01 Note Text: Program_ID:[id number] Access Code: [email or web address] URL: [email or web address]/ Date: 04-24-2025 Prepared By: Yuri Pitt Program Notes Exercises - Sidelying Hip Abduction - 1 x daily - 7 x weekly - 3 sets - 10 reps - Clamshell - 1 x daily - 7 x weekly - 3 sets - 10 reps - Quadruped Pelvic Floor Contraction with Opposite Arm and Leg Lift - 1 x daily - 7 x weekly - 3 sets - 10 reps - Prone Single Arm Shoulder Y - 1 x daily - 7 x weekly - 3 sets - 10 reps - Prone Shoulder Horizontal Abduction - 1 x daily - 7 x weekly - 3 sets - 10 reps - Prone Shoulder Extension - Single Arm - 1 x daily - 7 x weekly - 3 sets - 10 reps - Bent Knee Fallouts - 1 x daily - 7 x weekly - 3 sets - 10 reps - Seated Gentle Upper Trapezius Stretch - 3 x daily - 7 x weekly - 1 sets - 3 reps - Hooklying Single Knee to Chest Stretch - 3 x daily - 7 x weekly - 1 sets - 3 reps Normal [facility] BLOOD TB SCREENon 04-17-2025 M. tuberculosis tuberculin stim IFN-g Ql (Bld) Negative Normal [facility] Comment on above: Order Comment: Speci men Type: URINE SPECIMEN Ordering Facility: [facility] Address: [address] [place] [address] Performed By: #### 2 106-3 #### [facility] CLIA [id number] [address] MITOGEN MINUS NIL >9.93 Normal >=0.50 [facility] Comment on above: Order Comment: Speci men Type: URINE SPECIMEN Ordering Facility: [facility] Address: [address] [place] [address] Performed By: #### 2 106-3 #### [facility] CLIA [id number] [address] TB GAMMA INTERPRETATION Infection with M. tuberculosis complex is unlikely. If latent tuberculosis infection is highly suspected, a negative result does not rule out the infection. Specimens from immunocompromised patients and those <5 years of age may show false negative results. In case of a contact investigation, please repeat 8-12 weeks after a known exposure. Normal [facility] Comment on above: Order Comment: Speci men Type: URINE SPECIMEN Ordering Facility: [facility] Address: [address] [place] [address] Performed By: #### 2 106-3 #### [facility] CLIA [id number] [address] TB NIL 0.07 IU/mL Normal <=8.00 [facility] Comment on above: Order Comment: Speci men Type: URINE SPECIMEN Ordering Facility: [facility] Address: [address] [place] [address] Performed By: #### 2 106-3 #### [facility] CLIA [id number] [address] TB1 AG MINUS NIL 0.00 IU/mL Normal <0.35 [facility] Comment on above: Order Comment: Speci men Type: URINE SPECIMEN Ordering Facility: [facility] Address: [address] [place] [address] Performed By: #### 2 106-3 #### [facility] CLIA [id number] [address] TB2 AG MINUS NIL <0.00 Normal <0.35 [facility] Comment on above: Order Comment: Speci men Type: URINE SPECIMEN Ordering Facility: [facility] Address: [address] [place] [address] Performed By: #### 2 106-3 #### [facility] CLIA [id number] [address] [place] HBV core Ab Ser Qlon HBV core Ab Ql (S) Negative Normal Negative [facility] Comment on above: Order Comment: Speci men Type: BLOOD SPECIMEN Ordering Facility: [facility] Address: [address] [place] [address] Result Comment: No e vidence of current or past infection with Hepatitis B virus. Should recent infection be suspected, repeat testing may be considered 3-4 weeks after this draw. Performed By: #### 1 6933-4 #### [facility] CLIA [id number] [address] [place] [address] [place] HBV surface Ab Ql (S)on HBV surface Ab Qn (S) 3.50 mIU/mL Normal [facility] Comment on above: Order Comment: Speci men Type: URINE SPECIMEN Ordering Facility: [facility] Address: [address] [place] [address] Result Comment: <8.5 mIU/mL: No serological evidence of immunity to Hepatitis B Virus. >/= 8.5 to <11.5 mIU/mL: No serological evidence of immunity to Hepatitis B Virus. >/= 11.5 mIU/mL: Consistent with serological evidence of immunity to Hepatitis B Virus. Performed By: #### 2 106-3 #### [facility] CLIA [id number] [address] HBV surface Ab Ser Qlon HBV surface Ab Ql (S) Negative Normal [facility] Comment on above: Order Comment: Speci men Type: URINE SPECIMEN Ordering Facility: [facility] Address: [address] [place] [address] Result Comment: No s erological evidence of immunity to Hepatitis B Virus. Performed By: #### 2 106-3 #### [facility] CLIA [id number] [address] HBV surface Ag Ser Qlon HBV surface Ag Ql (S) Non-Reactive Normal Nonreactive [facility] Comment on above: Order Comment: Speci men Type: URINE SPECIMEN Ordering Facility: [facility] Address: [address] [place] [address] Performed By: #### 2 106-3 #### [facility] CLIA [id number] [address] HCV Ab Ser Qlon 04-17-2025 HCV Ab Ql (S) Non-Reactive Normal Nonreactive [facility] Comment on above: Order Comment: Speci men Type: URINE SPECIMEN Ordering Facility: [facility] Address: [address] [place] [address] Result Comment: The result suggests no evidence of active infection with Hepatitis C virus. Should recent infection be suspected, repeat testing may be considered 4-6 weeks after this draw. Performed By: #### 2 106-3 #### [facility] [employer] CLIA [id number] [address] CNTHERAPYon 04-15-2025 CNTHERAPY OT/PT/Speech Visit (PTWS) SID LEZAMA Braydon ([id number]) 1975 F Date Time Provider Department 04/15/25 7:30 AM RICH GONZALEZ Date Time Provider Department [place] 04/15/2025 7:30 AM [id number]-GHORRHGORICH GONZALEZ Raven Payne Reason for Visit: Physical Therapy [503] Primary Visit Diagnosis:Pain in left hip [M25.552] Other Visit Diagnoses:Primary osteoarthritis of left hip [M16.12] Bursitis of right shoulder [M75.51] Allergies As of Date: 04/15/2025 Noted Allergy Reaction AZITHROMYCIN 03/18/2021 16 - Unknown Comments: thinks a rash DILAUDID (HYDROMORPHONE (BULK)) 08/07/2006 7 - Swelling [...] 7 - Swelling Comments: migraines Date Reviewed: 03/24/2025 Reviewed by: Justine Bautista MA - Fully Assessed Prescriptions as of 04/15/2025 - Insulin Lynch, Disposable, (DROPLET PEN NEEDLE) 32 gauge x 5/32 USE TO INJECT INSULIN UP TO 8 TIMES PER DAY - ustekinumab (STELARA) 45 mg/0.5 mL syringe Inject 45 mg (1 syringe) subcutaneously every 8 weeks - naproxen sodium (ALEVE ORAL) Take by mouth. Once daily - insulin lispro (HUMALOG KWIKPEN) 100 unit/mL Inject 2 Units subcutaneously three times a day before meals. Plus sliding scale #2 If blood sugar is: Additional units < 150 0 151-200 2 201-250 4 251-300 6 301-350 8 > 350 18 units Max daily dose - insulin glargine (LANTUS SOLOSTAR U-100 INSULIN) 100 unit/mL (3 mL) INJECT 40 UNITS UNDER THE SKIN EVERY evening - Blood-Glucose Sensor (FREESTYLE GIANFRANCO 3 PLUS SENSOR) matilda Apply new sensor every fifteen (15) days to upper arm. - potassium citrate ER (UROCIT-K) 10 mEq (1,080 mg) Take 1 tablet by mouth two times a day. - pantoprazole DR (PROTONIX) 20 mg tablet Take 1 tablet by mouth daily before breakfast. Take on empty stomach, 1/2 hr before meal. - blood sugar diagnostic (ACCU-CHEK GUIDE TEST STRIPS) test strip USE WITH BLOOD GLUCOSE TEST THREE TIMES A DAY. - Lancets (ACCU-CHEK FASTCLIX LANCET DRUM) Use as instructed to check blood glucose up to 2 times daily. E11.9 - Lancing Device with Lancets ACCU CHEK FASTCLIX LANCET *DEVICE* use to check blood glucose up to 2 times per day as instructed. E11.9 - GVOKE PFS 1-PACK SYRINGE 1 mg/0.2 mL syrg INJECT 0.2 ML UNDER THE SKIN NEEDED. - clobetasol (TEMOVATE) 0.05 % ointment Apply to affected area two times a day. Face. Feet. Two weeks on and two weeks off, per [facility]. - fexofenadine HCl (LELA ORAL) Take by mouth. - levonorgestrel (MIRENA) 20 mcg/24 hours (8 yrs) 52 mg IUD 1 Each by INTRAUTERINE route as directed. - oxyCODONE-acetaminophen (PERCOCET) 5-325 mg tablet TAKE 1 TABLET BY MOUTH 3 TIMES A DAY NEEDED FOR 28 DAYS - vits62/FA/om3/dha/epa ( GUMMY ORAL) Take 2 Doses by mouth once daily. - Blood-Glucose Meter (ACCU-CHEK DIANNE) Test blood sugar(s) 2 times daily. Dx: Type 2 DM - Controlled E11.9 Insulin: No, Accu-check brand covered by insurance - Ascorbic Acid 500 mg chew Take 1,000 mg by mouth once daily. With rosehips - elderberry fruit (ELDERBERRY ORAL) Take by mouth. - COMPOUNDED PRESCRIPTION 1. V44.2 Ileostomy status (HCC) (primary diagnosis) 2. 555.1 Regional enteritis of large intestine (HCC) Ileostomy Supplies. 1. Pouches, 2. Planges, 3. Felipe seals, 4. Stoma adhesive, 5. Stoma powder, 6. Skin preps, 7. Adhesive remover wipes. Dispense 1 year supplies. - tiZANidine (ZANAFLEX) 4 mg tablet Take by mouth. . Takes 1 tablet at bedtime. Surgical Instrument Technician: Addendum Therapy (PT/OT/Speech/Resp) ID: [id number] 04/15/2025 8:11 AM Author: RICH GONZALEZ Signed by RICH GONZALEZ PT, DPT on 04/15/2025 at 8:11 AM * * * This document replaces document [id number] * * * Document text: Program_ID:[id number] Access Code: [email or web address] URL: [email or web address]/ Date: 04-15-2025 Prepared By: Yuri Pitt Program Notes Exercises - Sidelying Hip Abduction - 1 x daily - 7 x weekly - 3 sets - 10 reps - Clamshell - 1 x daily - 7 x weekly - 3 sets - 10 reps - Quadruped Pelvic Floor Contraction with Opposite Arm and Leg Lift - 1 x daily - 7 x weekly - 3 sets - 10 reps - Prone Single Arm Shoulder Y - 1 x daily - 7 x weekly - 3 sets - 10 reps - Prone Shoulder Horizontal Abduction - 1 x daily - 7 x weekly - 3 sets - 10 reps - Prone Shoulder Extension - Single Arm - 1 x daily - 7 x weekly - 3 sets - 10 reps - Bent Knee Fallouts - 1 x daily - 7 x weekly - (more content not included)... Normal [facility] THERAPY NTon 04-15-2025 THERAPY NT HNO ID: [id number] Author: RICH GONZALEZ, PT, DPT Service: ? Author Type: Physical Therapist Type: Therapy (PT/OT/Speech/Resp) Filed: 04/15/2025 08:11 Note Text: Program_ID:[id number] Access Code: [email or web address] URL: [email or web address]/ Date: 04-15-2025 Prepared By: Yuri Pitt Program Notes Exercises - Sidelying Hip Abduction - 1 x daily - 7 x weekly - 3 sets - 10 reps - Clamshell - 1 x daily - 7 x weekly - 3 sets - 10 reps - Quadruped Pelvic Floor Contraction with Opposite Arm and Leg Lift - 1 x daily - 7 x weekly - 3 sets - 10 reps - Prone Single Arm Shoulder Y - 1 x daily - 7 x weekly - 3 sets - 10 reps - Prone Shoulder Horizontal Abduction - 1 x daily - 7 x weekly - 3 sets - 10 reps - Prone Shoulder Extension - Single Arm - 1 x daily - 7 x weekly - 3 sets - 10 reps - Bent Knee Fallouts - 1 x daily - 7 x weekly - 3 sets - 10 reps Normal [facility] No Panel Informationon 04-10 IMPRESSION: Active synovitis of the bilateral second MCP joints and the right carpus. No tenosynovitis. Profile Saw Operator: SANTOS Transcribe Date/Time: Apr 10 2025 9:35A Dictated by : ADITI PENA MD This examination was interpreted and the report reviewed and electronically signed by: ADITI PENA MD on Apr 10 2025 9:43AM [facility] DIVISION OF RADIOLOGY Radiology Study observation (narrative) [facility] No Panel InformationOrdered By: [facility] Provider on 04-10-2025 [facility] US HAND/WRIST SYNOVIAL SCREE N LTon 04-10-2025 US HAND/WRIST SYNOVIAL SCREEN LT * * *Final Report* * * DATE OF EXAM: Apr 10 2025 9:26AM JAKOB 1198 - US HAND/WRIST SYNOVIAL SCREEN LT / PROCEDURE REASON: multiple diagnoses * * * * Physician Interpretation * * * * MSK_US SYNOVITIS SCREENING ULTRASOUND OF THE HANDS AND WRISTS: CLINICAL INFORMATION: Pain in joint, multiple sites Joint swelling TECHNIQUE: Stevenson-scale, real-time ultrasound of both the right and left hand and wrist synovium and tenosynovium was performed with power Doppler examination. Images were saved to the permanent image archive. COMPARISON: X-ray of 10/04/2023. X-ray 09/22/2021. FINDINGS: RIGHT SIDE: RIGHT MCP AND PIP JOINT SYNOVIUM: 2ND MCP: Hypertrophy: Minimal. Power Doppler: Minimal. 2ND PIP: Hypertrophy: None. Power Doppler: None. 3RD MCP: Hypertrophy: None. Power Doppler: None. 3RD PIP: Hypertrophy: None. Power Doppler: None. 4TH MCP: Hypertrophy: None. Power Doppler: None. 4TH PIP: Hypertrophy: None. Power Doppler: None. 5TH MCP: Hypertrophy: None. Power Doppler: None. 5TH PIP: Hypertrophy: None. Power Doppler: None. RIGHT EXTENSOR AND FLEXOR TENOSYNOVIUM: 2ND Digit Flexor: Hypertrophy: None. Power Doppler: None. 2ND Digit Extensor: Hypertrophy: None. Power Doppler: None. 3RD Digit Flexor: Hypertrophy: None. Power Doppler: None. 3RD Digit Extensor: Hypertrophy: None. Power Doppler: None. 4TH Digit Flexor: Hypertrophy: None. Power Doppler: None. 4TH Digit Extensor: Hypertrophy: None. Power Doppler: None. 5TH Digit Flexor: Hypertrophy: None. Power Doppler: None. 5TH Digit Extensor: Hypertrophy: None. Power Doppler: None. CARPUS Synovitis: Hypertrophy: Minimal. Power Doppler: Minimal. OTHER: None. LEFT SIDE: LEFT MCP AND PIP JOINT SYNOVIUM: 2ND MCP: Hypertrophy: Minimal. Power Doppler: Minimal. 2ND PIP: Hypertrophy: None. Power Doppler: None. 3RD MCP: Hypertrophy: None. Power Doppler: None. 3RD PIP: Hypertrophy: None. Power Doppler: None. 4TH MCP: Hypertrophy: None. Power Doppler: None. 4TH PIP: Hypertrophy: None. Power Doppler: None. 5TH MCP: Hypertrophy: None. Power Doppler: None. 5TH PIP: Hypertrophy: None. Power Doppler: None. LEFT EXTENSOR AND FLEXOR TENOSYNOVIUM: 2ND Digit Flexor: Hypertrophy: None. Power Doppler: None. 2ND Digit Extensor: Hypertrophy: None. Power Doppler: None. 3RD Digit Flexor: Hypertrophy: None. Power Doppler: None. 3RD Digit Extensor: Hypertrophy: None. Power Doppler: None. 4TH Digit Flexor: Hypertrophy: None. Power Doppler: None. 4TH Digit Extensor: Hypertrophy: None. Power Doppler: None. 5TH Digit Flexor: Hypertrophy: None. Power Doppler: None. 5TH Digit Extensor: Hypertrophy: None. Power Doppler: None. CARPUS Synovitis: Hypertrophy: None. Power Doppler: None. OTHER: Small ganglion cysts associated with the second through fifth flexor tendons. IMPRESSION: Active synovitis of the bilateral second MCP joints and the right carpus. No tenosynovitis. Profile Saw Operator: SANTOS Transcribe Date/Time: Apr 10 2025 9:35A Dictated by : ADITI PENA MD This examination was interpreted and the report reviewed and electronically signed by: ADITI PENA MD on Apr 10 2025 9:43AM EST [id number] Normal [facility] US HAND/WRIST SYNOVIAL SCREE N RTon 04-10-2025 US HAND/WRIST SYNOVIAL SCREEN RT * * *Final Report* * * DATE OF EXAM: Apr 10 2025 9:15AM JAKOB 1197 - US HAND/WRIST SYNOVIAL SCREEN RT / PROCEDURE REASON: multiple diagnoses * * * * Physician Interpretation * * * * MSK_US SYNOVITIS SCREENING ULTRASOUND OF THE HANDS AND WRISTS: CLINICAL INFORMATION: Pain in joint, multiple sites Joint swelling TECHNIQUE: Stevenson-scale, real-time ultrasound of both the right and left hand and wrist synovium and tenosynovium was performed with power Doppler examination. Images were saved to the permanent image archive. -2019 COMPARISON: X-ray of 10/04/2023. X-ray 09/22/2021. FINDINGS: RIGHT SIDE: RIGHT MCP AND PIP JOINT SYNOVIUM: 2ND MCP: Hypertrophy: Minimal. Power Doppler: Minimal. 2ND PIP: Hypertrophy: None. Power Doppler: None. 3RD MCP: Hypertrophy: None. Power Doppler: None. 3RD PIP: Hypertrophy: None. Power Doppler: None. 4TH MCP: Hypertrophy: None. Power Doppler: None. 4TH PIP: Hypertrophy: None. Power Doppler: None. 5TH MCP: Hypertrophy: None. Power Doppler: None. 5TH PIP: Hypertrophy: None. Power Doppler: None. RIGHT EXTENSOR AND FLEXOR TENOSYNOVIUM: 2ND Digit Flexor: Hypertrophy: None. Power Doppler: None. 2ND Digit Extensor: Hypertrophy: None. Power Doppler: None. 3RD Digit Flexor: Hypertrophy: None. Power Doppler: None. 3RD Digit Extensor: Hypertrophy: None. Power Doppler: None. 4TH Digit Flexor: Hypertrophy: None. Power Doppler: None. 4TH Digit Extensor: Hypertrophy: None. Power Doppler: None. 5TH Digit Flexor: Hypertrophy: None. Power Doppler: None. 5TH Digit Extensor: Hypertrophy: None. Power Doppler: None. CARPUS Synovitis: Hypertrophy: Minimal. Power Doppler: Minimal. OTHER: None. LEFT SIDE: LEFT MCP AND PIP JOINT SYNOVIUM: 2ND MCP: Hypertrophy: Minimal. Power Doppler: Minimal. 2ND PIP: Hypertrophy: None. Power Doppler: None. 3RD MCP: Hypertrophy: None. Power Doppler: None. 3RD PIP: Hypertrophy: None. Power Doppler: None. 4TH MCP: Hypertrophy: None. Power Doppler: None. 4TH PIP: Hypertrophy: None. Power Doppler: None. 5TH MCP: Hypertrophy: None. Power Doppler: None. 5TH PIP: Hypertrophy: None. Power Doppler: None. LEFT EXTENSOR AND FLEXOR TENOSYNOVIUM: 2ND Digit Flexor: Hypertrophy: None. Power Doppler: None. 2ND Digit Extensor: Hypertrophy: None. Power Doppler: None. 3RD Digit Flexor: Hypertrophy: None. Power Doppler: None. 3RD Digit Extensor: Hypertrophy: None. Power Doppler: None. 4TH Digit Flexor: Hypertrophy: None. Power Doppler: None. 4TH Digit Extensor: Hypertrophy: None. Power Doppler: None. 5TH Digit Flexor: Hypertrophy: None. Power Doppler: None. 5TH Digit Extensor: Hypertrophy: None. Power Doppler: None. CARPUS Synovitis: Hypertrophy: None. Power Doppler: None. OTHER: Small ganglion cysts associated with the second through fifth flexor tendons. IMPRESSION: Active synovitis of the bilateral second MCP joints and the right carpus. No tenosynovitis. Profile Saw Operator: SANTOS Transcribe Date/Time: Apr 10 2025 9:35A Dictated by : ADITI PENA MD This examination was interpreted and the report reviewed and electronically signed by: ADITI PENA MD on Apr 10 2025 9:43AM EST [id number] Normal [facility] US Upper extremity - lefton 04-10-2025 * * *Final Report* * * DATE OF EXAM: Apr 10 2025 9:26AM JAKOB 1198 - US HAND/WRIST SYNOVIAL SCREEN LT / PROCEDURE REASON: multiple diagnoses * * * * Physician Interpretation * * * * MSK_US SYNOVITIS SCREENING ULTRASOUND OF THE HANDS AND WRISTS: CLINICAL INFORMATION: Pain in joint, multiple sites Joint swelling TECHNIQUE: Stevenson-scale, real-time ultrasound of both the right and left hand and wrist synovium and tenosynovium was performed with power Doppler examination. Images were saved to the permanent image archive. COMPARISON: X-ray of 10/04/2023. X-ray 09/22/2021. FINDINGS: RIGHT SIDE: RIGHT MCP AND PIP JOINT SYNOVIUM: 2ND MCP: Hypertrophy: Minimal. Power Doppler: Minimal. 2ND PIP: Hypertrophy: None. Power Doppler: None. 3RD MCP: Hypertrophy: None. Power Doppler: None. 3RD PIP: Hypertrophy: None. Power Doppler: None. 4TH MCP: Hypertrophy: None. Power Doppler: None. 4TH PIP: Hypertrophy: None. Power Doppler: None. 5TH MCP: Hypertrophy: None. Power Doppler: None. 5TH PIP: Hypertrophy: None. Power Doppler: None. RIGHT EXTENSOR AND FLEXOR TENOSYNOVIUM: 2ND Digit Flexor: Hypertrophy: None. Power Doppler: None. 2ND Digit Extensor: Hypertrophy: None. Power Doppler: None. 3RD Digit Flexor: Hypertrophy: None. Power Doppler: None. 3RD Digit Extensor: Hypertrophy: None. Power Doppler: None. 4TH Digit Flexor: Hypertrophy: None. Power Doppler: None. 4TH Digit Extensor: Hypertrophy: None. Power Doppler: None. 5TH Digit Flexor: Hypertrophy: None. Power Doppler: None. 5TH Digit Extensor: Hypertrophy: None. Power Doppler: None. CARPUS Synovitis: Hypertrophy: Minimal. Power Doppler: Minimal. OTHER: None. LEFT SIDE: LEFT MCP AND PIP JOINT SYNOVIUM: 2ND MCP: Hypertrophy: Minimal. Power Doppler: Minimal. 2ND PIP: Hypertrophy: None. Power Doppler: None. 3RD MCP: Hypertrophy: None. Power Doppler: None. 3RD PIP: Hypertrophy: None. Power Doppler: None. 4TH MCP: Hypertrophy: None. Power Doppler: None. 4TH PIP: Hypertrophy: None. Power Doppler: None. 5TH MCP: Hypertrophy: None. Power Doppler: None. 5TH PIP: Hypertrophy: None. Power Doppler: None. LEFT EXTENSOR AND FLEXOR TENOSYNOVIUM: 2ND Digit Flexor: Hypertrophy: None. Power Doppler: None. 2ND Digit Extensor: Hypertrophy: None. Power Doppler: None. 3RD Digit Flexor: Hypertrophy: None. Power Doppler: None. 3RD Digit Extensor: Hypertrophy: None. Power Doppler: None. 4TH Digit Flexor: Hypertrophy: None. Power Doppler: None. 4TH Digit Extensor: Hypertrophy: None. Power Doppler: None. 5TH Digit Flexor: Hypertrophy: None. Power Doppler: None. 5TH Digit Extensor: Hypertrophy: None. Power Doppler: None. CARPUS Synovitis: Hypertrophy: None. Power Doppler: None. OTHER: Small ganglion cysts associated with the second through fifth flexor tendons. DIVISION OF RADIOLOGY Provider, Andriy Mcginnis [facility] - 04/10/2025 * * *Final Report* * * DATE OF EXAM: Apr 10 2025 9:26AM JAKOB 1198 - US HAND/WRIST SYNOVIAL SCREEN LT / PROCEDURE REASON: multiple diagnoses * * * * Physician Interpretation * * * * MSK_US SYNOVITIS SCREENING ULTRASOUND OF THE HANDS AND WRISTS: CLINICAL INFORMATION: Pain in joint, multiple sites Joint swelling TECHNIQUE: Stevenson-scale, real-time ultrasound of both the right and left hand and wrist synovium and tenosynovium was performed with power Doppler examination. Images were saved to the permanent image archive. v1-2019 COMPARISON: X-ray of 10/04/2023. X-ray 09/22/2021. FINDINGS: RIGHT SIDE: RIGHT MCP AND PIP JOINT SYNOVIUM: 2ND MCP: Hypertrophy: Minimal. Power Doppler: Minimal. 2ND PIP: Hypertrophy: None. Power Doppler: None. 3RD MCP: Hypertrophy: None. Power Doppler: None. 3RD PIP: Hypertrophy: None. Power Doppler: None. 4TH MCP: Hypertrophy: None. Power Doppler: None. 4TH PIP: Hypertrophy: None. Power Doppler: None. 5TH MCP: Hypertrophy: None. Power Doppler: None. 5TH PIP: Hypertrophy: None. Power Doppler: None. RIGHT EXTENSOR AND FLEXOR TENOSYNOVIUM: 2ND Digit Flexor: Hypertrophy: None. Power Doppler: None. 2ND Digit Extensor: Hypertrophy: None. Power Doppler: None. 3RD Digit Flexor: Hypertrophy: None. Power Doppler: None. 3RD Digit Extensor: Hypertrophy: None. Power Doppler: None. 4TH Digit Flexor: Hypertrophy: None. Power Doppler: None. 4TH Digit Extensor: Hypertrophy: None. Power Doppler: None. 5TH Digit Flexor: Hypertrophy: None. Power Doppler: None. 5TH Digit Extensor: Hypertrophy: None. Power Doppler: None. CARPUS Synovitis: Hypertrophy: Minimal. Power Doppler: Minimal. OTHER: None. LEFT SIDE: LEFT MCP AND PIP JOINT SYNOVIUM: 2ND MCP: Hypertrophy: Minimal. Power Doppler: Minimal. 2ND PIP: Hypertrophy: None. Power Doppler: None. 3RD MCP: Hypertrophy: None. Power Doppler: None. 3RD PIP: Hypertrophy: None. Power Doppler: None. 4TH MCP: Hypertrophy: None. Power Doppler: None. 4TH PIP: Hypertrophy: None. Power Doppler: None. 5TH MCP: Hypertrophy: None. Power Doppler: None. 5TH PIP: Hypertrophy: None. Power Doppler: None. LEFT EXTENSOR AND FLEXOR TENOSYNOVIUM: 2ND Digit Flexor: Hypertrophy: None. Power Doppler: None. 2ND Digit Extensor: Hypertrophy: None. Power Doppler: None. 3RD Digit Flexor: Hypertrophy: None. Power Doppler: None. 3RD Digit Extensor: Hypertrophy: None. Power Doppler: None. 4TH Digit Flexor: Hypertrophy: None. Power Doppler: None. 4TH Digit Extensor: Hypertrophy: None. Power Doppler: None. 5TH Digit Flexor: Hypertrophy: None. Power Doppler: None. 5TH Digit Extensor: Hypertrophy: None. Power Doppler: None. CARPUS Synovitis: Hypertrophy: None. Power Doppler: None. OTHER: Small ganglion cysts associated with the second through fifth flexor tendons. IMPRESSION IMPRESSION: Active synovitis of the bilateral second MCP joints and the right carpus. No tenosynovitis. Profile Saw Operator: ZenDealsB Transcribe Date/Time: Apr 10 2025 9:35A Dictated by : ADITI PENA MD This examination was interpreted and the report reviewed and electronically signed by: ADITI PENA MD on Apr 10 2025 9:43AM EST [facility] US Upper extremity - righton 04-10-2025 * * *Final Report* * * DATE OF EXAM: Apr 10 2025 9:15AM JAKOB 1197 - US HAND/WRIST SYNOVIAL SCREEN RT / PROCEDURE REASON: multiple diagnoses * * * * Physician Interpretation * * * * MSK_US SYNOVITIS SCREENING ULTRASOUND OF THE HANDS AND WRISTS: CLINICAL INFORMATION: Pain in joint, multiple sites Joint swelling TECHNIQUE: Stevenson-scale, real-time ultrasound of both the right and left hand and wrist synovium and tenosynovium was performed with power Doppler examination. Images were saved to the permanent image archive. v1-2019 COMPARISON: X-ray of 10/04/2023. X-ray 09/22/2021. FINDINGS: RIGHT SIDE: RIGHT MCP AND PIP JOINT SYNOVIUM: 2ND MCP: Hypertrophy: Minimal. Power Doppler: Minimal. 2ND PIP: Hypertrophy: None. Power Doppler: None. 3RD MCP: Hypertrophy: None. Power Doppler: None. 3RD PIP: Hypertrophy: None. Power Doppler: None. 4TH MCP: Hypertrophy: None. Power Doppler: None. 4TH PIP: Hypertrophy: None. Power Doppler: None. 5TH MCP: Hypertrophy: None. Power Doppler: None. 5TH PIP: Hypertrophy: None. Power Doppler: None. RIGHT EXTENSOR AND FLEXOR TENOSYNOVIUM: 2ND Digit Flexor: Hypertrophy: None. Power Doppler: None. 2ND Digit Extensor: Hypertrophy: None. Power Doppler: None. 3RD Digit Flexor: Hypertrophy: None. Power Doppler: None. 3RD Digit Extensor: Hypertrophy: None. Power Doppler: None. 4TH Digit Flexor: Hypertrophy: None. Power Doppler: None. 4TH Digit Extensor: Hypertrophy: None. Power Doppler: None. 5TH Digit Flexor: Hypertrophy: None. Power Doppler: None. 5TH Digit Extensor: Hypertrophy: None. Power Doppler: None. CARPUS Synovitis: Hypertrophy: Minimal. Power Doppler: Minimal. OTHER: None. LEFT SIDE: LEFT MCP AND PIP JOINT SYNOVIUM: 2ND MCP: Hypertrophy: Minimal. Power Doppler: Minimal. 2ND PIP: Hypertrophy: None. Power Doppler: None. 3RD MCP: Hypertrophy: None. Power Doppler: None. 3RD PIP: Hypertrophy: None. Power Doppler: None. 4TH MCP: Hypertrophy: None. Power Doppler: None. 4TH PIP: Hypertrophy: None. Power Doppler: None. 5TH MCP: Hypertrophy: None. Power Doppler: None. 5TH PIP: Hypertrophy: None. Power Doppler: None. LEFT EXTENSOR AND FLEXOR TENOSYNOVIUM: 2ND Digit Flexor: Hypertrophy: None. Power Doppler: None. 2ND Digit Extensor: Hypertrophy: None. Power Doppler: None. 3RD Digit Flexor: Hypertrophy: None. Power Doppler: None. 3RD Digit Extensor: Hypertrophy: None. Power Doppler: None. 4TH Digit Flexor: Hypertrophy: None. Power Doppler: None. 4TH Digit Extensor: Hypertrophy: None. Power Doppler: None. 5TH Digit Flexor: Hypertrophy: None. Power Doppler: None. 5TH Digit Extensor: Hypertrophy: None. Power Doppler: None. CARPUS Synovitis: Hypertrophy: None. Power Doppler: None. OTHER: Small ganglion cysts associated with the second through fifth flexor tendons. DIVISION OF RADIOLOGY Provider, [facility] - 04/10/2025 * * *Final Report* * * DATE OF EXAM: Apr 10 2025 9:15AM JAKOB 1197 - US HAND/WRIST SYNOVIAL SCREEN RT / PROCEDURE REASON: multiple diagnoses * * * * Physician Interpretation * * * * MSK_US SYNOVITIS SCREENING ULTRASOUND OF THE HANDS AND WRISTS: CLINICAL INFORMATION: Pain in joint, multiple sites Joint swelling TECHNIQUE: Stevenson-scale, real-time ultrasound of both the right and left hand and wrist synovium and tenosynovium was performed with power Doppler examination. Images were saved to the permanent image archive. -2019 COMPARISON: X-ray of 10/04/2023. X-ray 09/22/2021. FINDINGS: RIGHT SIDE: RIGHT MCP AND PIP JOINT SYNOVIUM: 2ND MCP: Hypertrophy: Minimal. Power Doppler: Minimal. 2ND PIP: Hypertrophy: None. Power Doppler: None. 3RD MCP: Hypertrophy: None. Power Doppler: None. 3RD PIP: Hypertrophy: None. Power Doppler: None. 4TH MCP: Hypertrophy: None. Power Doppler: None. 4TH PIP: Hypertrophy: None. Power Doppler: None. 5TH MCP: Hypertrophy: None. Power Doppler: None. 5TH PIP: Hypertrophy: None. Power Doppler: None. RIGHT EXTENSOR AND FLEXOR TENOSYNOVIUM: 2ND Digit Flexor: Hypertrophy: None. Power Doppler: None. 2ND Digit Extensor: Hypertrophy: None. Power Doppler: None. 3RD Digit Flexor: Hypertrophy: None. Power Doppler: None. 3RD Digit Extensor: Hypertrophy: None. Power Doppler: None. 4TH Digit Flexor: Hypertrophy: None. Power Doppler: None. 4TH Digit Extensor: Hypertrophy: None. Power Doppler: None. 5TH Digit Flexor: Hypertrophy: None. Power Doppler: None. 5TH Digit Extensor: Hypertrophy: None. Power Doppler: None. CARPUS Synovitis: Hypertrophy: Minimal. Power Doppler: Minimal. OTHER: None. LEFT SIDE: LEFT MCP AND PIP JOINT SYNOVIUM: 2ND MCP: Hypertrophy: Minimal. Power Doppler: Minimal. 2ND PIP: Hypertrophy: None. Power Doppler: None. 3RD MCP: Hypertrophy: None. Power Doppler: None. 3RD PIP: Hypertrophy: None. Power Doppler: None. 4TH MCP: Hypertrophy: None. Power Doppler: None. 4TH PIP: Hypertrophy: None. Power Doppler: None. 5TH MCP: Hypertrophy: None. Power Doppler: None. 5TH PIP: Hypertrophy: None. Power Doppler: None. LEFT EXTENSOR AND FLEXOR TENOSYNOVIUM: 2ND Digit Flexor: Hypertrophy: None. Power Doppler: None. 2ND Digit Extensor: Hypertrophy: None. Power Doppler: None. 3RD Digit Flexor: Hypertrophy: None. Power Doppler: None. 3RD Digit Extensor: Hypertrophy: None. Power Doppler: None. 4TH Digit Flexor: Hypertrophy: None. Power Doppler: None. 4TH Digit Extensor: Hypertrophy: None. Power Doppler: None. 5TH Digit Flexor: Hypertrophy: None. Power Doppler: None. 5TH Digit Extensor: Hypertrophy: None. Power Doppler: None. CARPUS Synovitis: Hypertrophy: None. Power Doppler: None. OTHER: Small ganglion cysts associated with the second through fifth flexor tendons. IMPRESSION IMPRESSION: Active synovitis of the bilateral second MCP joints and the right carpus. No tenosynovitis. Profile Saw Operator: PSCB Transcribe Date/Time: Apr 10 2025 9:35A Dictated by : ADITI PENA MD This examination was interpreted and the report reviewed and electronically signed by: ADITI PENA MD on Apr 10 2025 9:43AM EST [facility] [id number] 04-02-2025 [id number] HNO ID: [id number] Author: YURI PITT PT Service: ? Author Type: Physical Therapist Type: [id number] Filed: 04/02/2025 09:47 Note Text: [facility] Rehabilitation [facility] Sports Therapy Physical Therapy Plan of Care Certification Patient Name: Sid Lezama : 1975 [facility] #: [id number] Date: 04/02/2025 To: Lara Reeder,* From Therapist: Yuri Pitt PT RE: Patient Certification/ Recertification Your review, approval and electronic signature are required in order to comply with Payor: [employer] MEDICARE / Plan: [email or web address] PL[employer] / Product Type: HMO / regulations. The identified Physical Therapy PLAN OF CARE for the patient is as follows: M25.552 Pain in left hip (primary encounter diagnosis) M75.51 Bursitis of right shoulder M16.12 Primary osteoarthritis of left hip PLAN OF CARE: Assessment: Sid Lezama presents with chief complaint of R shoulder and L hip pain that interferes with rising from a chair, standing, walking, stair negotiation, bending, heavy exertion, lifting, physical activities, recreational activities, cleaning, cooking . The patient presents with impairments in ADL's, joint mobility, overall function, range of motion, strength, and symptom management. PROMIS? (Patient-Reported Outcomes Measurement Information System) scores were reviewed and identified as within normal limits. Prognosis for therapy is Good due to: current objective clinical presentation, positive past response to therapy, good support system/ coping skills . The patient will benefit from skilled therapy services to meet the goals established for this plan of care as noted below. Goals for Episode of Care: established 04/02/25 Gage in home exercise program. Patient will decrease pain rating by 2 points to meet minimal clinical important difference for numeric pain rating scale. Patient will demonstrate increase in R periscapular and L lateral hip/glute strength to 4+/5 during manual muscle testing in order to improve function for basic self-care tasks, home management tasks, light functional tasks, and moderate to heavy functional tasks. Perform rising from a chair, standing, walking with decreased report of symptoms/pain in 6-8 weeks. Time Frame for Goals and Treatment : 06/02/25 Planned Interventions, Frequency, and Duration: Current Frequency: 1x/week Duration: 8 weeks Total Number of Visits Planned: 8 Planned Treatment Interventions: Therapeutic exercise (36106), Neuromuscular re-education (75522), Manual therapy (93464), Therapeutic activities (57593), Self-snf management (46023), Patient/Family/Caregive r Education, Body Mechanics Training PLAN FOR NEXT VISIT: Assess carry over of HEP and progress strengthening per tolerance. Lateral hip/glutes, post shoulder/periscapular, and core strengthening main focus Patient demonstrates good understanding of plan of care and treatment. The above goals and plan of care were discussed and agreed upon by patient/family. For further details regarding this patient refer to the Physical Therapy electronically documented visit dated 04/02/2025. Provider Attestation I have reviewed the treatment plan for Sid Lezama, [facility]# [id number] for the period of 04/02/25 -- 06/11/25, established on 04/02/2025. Signature certifies the need for therapy services. Normal [facility] CNTHERAPYon 04-02-2025 CNTHERAPY OT/PT/Speech Visit (PTWS) SID LEZAMA ([id number]) 1975 F Date Time Provider Department 04/02/25 7:30 AM YURI PITT Date Time Provider Department Center 04/02/2025 7:30 AM [id number] PITT Reason for Visit: PT Eval [747] Primary Visit Diagnosis:Pain in left hip [M25.552] Other Visit Diagnoses:Bursitis of right shoulder [M75.51] Primary osteoarthritis of left hip [M16.12] Allergies As of Date: 04/02/2025 Noted Allergy Reaction AZITHROMYCIN 03/18/2021 16 - Unknown Comments: thinks a rash DILAUDID (HYDROMORPHONE (BULK)) 08/07/2006 7 - Swelling [...] 7 - Swelling Comments: migraines Date Reviewed: 03/24/2025 Reviewed by: Justine Bautista MA - Fully Assessed Prescriptions as of 04/02/2025 - naproxen sodium (ALEVE ORAL) Take by mouth. Once daily - insulin lispro (HUMALOG KWIKPEN) 100 unit/mL Inject 2 Units subcutaneously three times a day before meals. Plus sliding scale #2 If blood sugar is: Additional units < 150 0 151-200 2 201-250 4 251-300 6 301-350 8 > 350 18 units Max daily dose - Insulin Lynch, Disposable, (PEN NEEDLE) 32 gauge x 5/32 Use to inject insulin up to 8 times per day. - insulin glargine (LANTUS SOLOSTAR U-100 INSULIN) 100 unit/mL (3 mL) INJECT 40 UNITS UNDER THE SKIN EVERY evening - Blood-Glucose Sensor (FREESTYLE GIANFRANCO 3 PLUS SENSOR) matilda Apply new sensor every fifteen (15) days to upper arm. - ustekinumab (STELARA) 45 mg/0.5 mL syringe Inject 45 mg (1 syringe) subcutaneously every 12 weeks - potassium citrate ER (UROCIT-K) 10 mEq (1,080 mg) Take 1 tablet by mouth two times a day. - pantoprazole DR (PROTONIX) 20 mg tablet Take 1 tablet by mouth daily before breakfast. Take on empty stomach, 1/2 hr before meal. - blood sugar diagnostic (ACCU-CHEK GUIDE TEST STRIPS) test strip USE WITH BLOOD GLUCOSE TEST THREE TIMES A DAY. - Lancets (ACCU-CHEK FASTCLIX LANCET DRUM) Use as instructed to check blood glucose up to 2 times daily. E11.9 - Lancing Device with Lancets ACCU CHEK FASTCLIX LANCET *DEVICE* use to check blood glucose up to 2 times per day as instructed. E11.9 - GVOKE PFS 1-PACK SYRINGE 1 mg/0.2 mL syrg INJECT 0.2 ML UNDER THE SKIN NEEDED. - clobetasol (TEMOVATE) 0.05 % ointment Apply to affected area two times a day. Face. Feet. Two weeks on and two weeks off, per [facility] Dermatology. - fexofenadine HCl (LELA ORAL) Take by mouth. - levonorgestrel (MIRENA) 20 mcg/24 hours (8 yrs) 52 mg IUD 1 Each by INTRAUTERINE route as directed. - oxyCODONE-acetaminophen (PERCOCET) 5-325 mg tablet TAKE 1 TABLET BY MOUTH 3 TIMES A DAY NEEDED FOR 28 DAYS - vits62/FA/om3/dha/epa ( GUMMY ORAL) Take 2 Doses by mouth once daily. - Blood-Glucose Meter (ACCU-CHEK DIANNE) Test blood sugar(s) 2 times daily. Dx: Type 2 DM - Controlled E11.9 Insulin: No, Accu-check brand covered by insurance - Ascorbic Acid 500 mg chew Take 1,000 mg by mouth once daily. With rosehips - elderberry fruit (ELDERBERRY ORAL) Take by mouth. - COMPOUNDED PRESCRIPTION 1. V44.2 Ileostomy status (HCC) (primary diagnosis) 2. 555.1 Regional enteritis of large intestine ([facility]) Ileostomy Supplies. 1. Pouches, 2. Planges, 3. Felipe seals, 4. Stoma adhesive, 5. Stoma powder, 6. Skin preps, 7. Adhesive remover wipes. Dispense 1 year supplies. - tiZANidine (ZANAFLEX) 4 mg tablet Take by mouth. . Takes 1 tablet at bedtime. Surgical Instrument Technician: Addendum Therapy (PT/OT/Speech/Resp) ID: [id number] 04/02/2025 8:07 AM Author: YURI PITT Signed by YURI PITT PT on 04/02/2025 at 8:07 AM * * * This document replaces document [id number] * * * Document text: Program_ID:[id number] Access Code: [email or web address] URL: [email or web address]/ Date: 04-02-2025 Prepared By: Yuri Pitt Program Notes Exercises - Sidelying Hip Abduction - 1 x daily - 7 x weekly - 3 sets - 10 reps - Clamshell - 1 x daily - 7 x weekly - 3 sets - 10 reps - Quadruped Pelvic Floor Contraction with Opposite Arm and Leg Lift - 1 x daily - 7 x weekly - 3 sets - 10 reps - Prone Single Arm Shoulder Y - 1 x daily - 7 x weekly - 3 sets - 10 reps - Prone Shoulder Horizontal Abduction - 1 x daily - 7 x weekly - 3 sets - 10 reps - Prone Shoulder Extension - Single Arm - 1 x daily - 7 x weekly - 3 sets - 10 reps Normal [facility] THERAPY NTon 04-02-2025 THERAPY NT HNO ID: [id number] Author: YURI PITT PT Service: ? Author Type: Physical Therapist Type: Therapy (PT/OT/Speech/Resp) Filed: 04/02/2025 08:07 Note Text: Program_ID:[id number] Access Code: [email or web address] URL: [email or web address]/ Date: 04-02-2025 Prepared By: Yuri Pitt Program Notes Exercises - Sidelying Hip Abduction - 1 x daily - 7 x weekly - 3 sets - 10 reps - Clamshell - 1 x daily - 7 x weekly - 3 sets - 10 reps - Quadruped Pelvic Floor Contraction with Opposite Arm and Leg Lift - 1 x daily - 7 x weekly - 3 sets - 10 reps - Prone Single Arm Shoulder Y - 1 x daily - 7 x weekly - 3 sets - 10 reps - Prone Shoulder Horizontal Abduction - 1 x daily - 7 x weekly - 3 sets - 10 reps - Prone Shoulder Extension - Single Arm - 1 x daily - 7 x weekly - 3 sets - 10 reps Normal [facility] ALANINE AMINOTRANSFERASE / S GPTon 03-24-2025 ALT [Catalytic activity/Vol] 29 U/L 7 - 38 U/L [facility] ALT SerPl-cCncon 03-24-2025 ALT [Catalytic activity/Vol] 29 U/L Normal 7-38 [facility] Comment on above: Order Comment: Speci kendall Type: BLOOD SPECIMENOrdering Facility: [facility] Address: [address] [place] [address] Performed By: #### 1 920-8, 1742-6, 11963-0 ####[facility] LABCLIA [id number] [place] [address] [place] ASPARTATE AMINOTRANSFERASE/S GOTon 03-24-2025 AST [Catalytic activity/Vol] 22 U/L 13 - 35 U/L [facility] AST SerPl-cCncon 03-24-2025 AST [Catalytic activity/Vol] 22 U/L Normal 13-35 [facility] Comment on above: Order Comment: Joelle argueta Type: BLOOD SPECIMENOrdering Facility: [facility] Address: [address] [place] [address] Performed By: #### 1 920-8, 1742-6, 54817-1 ####[facility] LABCLIA [id number] [place] [address] [place] B. burgdorferi IgG and IgM p evie (S)on 03-24-2025 B. burgdorferi IgG+IgM Qn (S) Negative Normal Negative [facility] Comment on above: Order Comment: Joelle argueta Type: BLOOD SPECIMEN Ordering Facility: [facility] Address: [address] [place] [address] Result Comment: Rece nt infection with B. burgdorferi sensu lato cannot be excluded if the specimen collected within four weeks after the onset of signs and symptoms or within six weeks after a known tick exposure. Clinical and epidemiological correlation is required. Performed By: #### 3 4942-3 #### [facility] CLIA [id number] [address] [place] [address] [place] CBC panel Auto (Bld)on 03-24 Erythrocyte distribution width (RBC) [Ratio] 11.8 % 11.5 - 15.0 % [facility] Hematocrit (Bld) [Volume fraction] 42.6 % 36.0 - 46.0 % [facility] Hemoglobin (Bld) [Mass/Vol] 13.9 g/dL 11.5 - 15.5 g/dL [facility] Interpretation and review of laboratory results Normal [facility] MCH (RBC) [Entitic mass] 29 pg 26.0 - 34.0 pg [facility] MCHC (RBC) [Mass/Vol] 32.6 g/dL 30.5 - 36.0 g/dL [facility] MCV (RBC) [Entitic vol] 88.9 fL 80.0 - 100.0 fL [facility] Nucleated RBC (Bld) [#/Vol] NINF [facility] Platelet mean volume (Bld) [Entitic vol] 10.4 fL 9.0 - 12.7 fL [facility] Platelets (Bld) [#/Vol] 211 10*3/uL [facility] RBC (Bld) [#/Vol] 4.79 10*6/uL 3.90 - 5.2 0 m/uL [facility] WBC (Bld) [#/Vol] 5.63 10*3/uL [facility] Erythrocyte distribution width (RBC) [Ratio] 11.8 % Normal 11.5-15.0 [facility] Comment on above: Order Comment: Speci men Type: BLOOD SPECIMENOrdering Facility: [facility] Address: [address] [place] [address] Performed By: #### 5 8410-2 ####[facility] LABCLIA [id number] [address] [place] Hematocrit (Bld) [Volume fraction] 42.6 % Normal 36.0-46.0 [facility] Comment on above: Order Comment: Speci men Type: BLOOD SPECIMENOrdering Facility: [facility] Address: [address] [place] [address] Performed By: #### 5 8410-2 ####[facility] LABCLIA [id number] [place] [id number] [place] Hemoglobin (Bld) [Mass/Vol] 13.9 g/dL Normal 11.5-15.5 [facility] Comment on above: Order Comment: Speci men Type: BLOOD SPECIMENOrdering Facility: [facility] Address: [address] [place] [address] Performed By: #### 5 8410-2 ####[facility] LABIA [id number] [place] [address] [place] MCH (RBC) [Entitic mass] 29.0 pg Normal 26.0-34.0 [facility] Comment on above: Order Comment: Speci men Type: BLOOD SPECIMENOrdering Facility: [facility] Address: [address] [place] [address] Performed By: #### 5 8410-2 ####[facility] LABIA [id number] [place] [address] [place] MCHC (RBC) [Mass/Vol] 32.6 g/dL Normal 30.5-36.0 [facility] Comment on above: Order Comment: Speci men Type: BLOOD SPECIMENOrdering Facility: [facility] Address: [address] [place] [address] Performed By: #### 5 8410-2 ####[facility] LABCLIA [id number] [address] [place] MCV (RBC) [Entitic vol] 88.9 fL Normal 80.0-100.0 [facility] Comment on above: Order Comment: Speci men Type: BLOOD SPECIMENOrdering Facility: [facility] Address: [address] [place] [address] Performed By: #### 5 8410-2 ####[facility] LABCLIA [id number] [place] [address] [place] Nucleated RBC (Bld) [#/Vol] 10*3/uL Normal <0.01 [facility] Comment on above: Order Comment: Speci men Type: BLOOD SPECIMENOrdering Facility: [facility] Address: [address] [place] [address] Performed By: #### 5 8410-2 ####[facility] LABCLIA [id number] [place] [address] [place] Platelet mean volume (Bld) [Entitic vol] 10.4 fL Normal 9.0-12.7 [facility] Comment on above: Order Comment: Speci men Type: BLOOD SPECIMENOrdering Facility: [facility] Address: [address] [place] [address] Performed By: #### 5 8410-2 ####[facility] LABCLIA [id number] [place] [address] [place] Platelets (Bld) [#/Vol] 211 10*3/uL Normal 150-400 [facility] Comment on above: Order Comment: Speci men Type: BLOOD SPECIMENOrdering Facility: [facility] Address: [address] [place] [address] Performed By: #### 5 8410-2 ####[facility] LABCLIA [id number] [place] [address] [place] RBC (Bld) [#/Vol] 4.79 10*6/uL Normal 3.90-5.20 [facility] Comment on above: Order Comment: Speci men Type: BLOOD SPECIMENOrdering Facility: [facility] Address: [address] [place] [address] Performed By: #### 5 8410-2 ####[facility] LABCLIA [id number] [place], [place] [address] [place] WBC (Bld) [#/Vol] 5.63 10*3/uL Normal 3.70-11.00 [facility] Comment on above: Order Comment: Speci men Type: BLOOD SPECIMENOrdering Facility: [facility] Address: [address] [place] [address] Performed By: #### 5 8410-2 ####[facility] LABCLIA [id number] [place] [id number] [place] CNOVon 03-24-2025 CNOV Office Visit (RHEMERY ) SID LEZAMA ([id number]) 1975 F Date Time Provider Department 03/24/25 10:00 AM SCOTT GOLD During your visit today, we recorded the following information about you: Temperature Pulse Blood pressure Weight 97.9 degrees 67/minute 131/81 75.8 kg Height 1.511 m Scott Gold MD 03/24/2025 10:47 AM Signed On 03/24/2025, I had the pleasure of seeing Sid Lezama at the [facility] for follow-up of seronegative spondyloarthropathy HPI: To review, Sid Lezama is a 49 year old female - Since teenage years, with intermittent joint pain and swelling. Affected joints include the wrists, MCPs, PIPs, knees, ankles and toes. Also gets hip pain. Eases with movement/activity. Worst pain is evening. - In April, diagnosed with Crohn's per colonoscopy. Underwent surgery to remove the large intestine. - In , had a rectal fistula so tried remicade (stopped s/p 6th dose for rash). Rectal stump was removed after that. - Sees pain management for serial spinal injections - In , diagnosed with psoriasis over scalp, knees and dorsal feet. - In Jun, reported no GI issues, no need for medication or surgery for Crohn's since . Diagnosed with SpA. Advised abel which she decided against starting given c/f potential SE - Since February, has been seeing holistic provider. Taking supplements - In Jul, reported she had lost 20 lbs. Overall stable. - In Jun, reported she had 3 doses of stelara which she started after the prior visit. Had had 3 doses thus far. Improved psoriasis, not yet of joints - In Dec, reported 70-80% improved in the joints and skin with the stelara. - Today, reports she has had a couple of ticks on her while mowing her mother's lawn. A little red at the spot, no target lesion. Otherwise, psoriasis is clear and joints are stable with the stelara. 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 Lumbago 01/10/2007 Myalgia and myositis, unspecified Pain management Dr Stern Nonalcoholic fatty liver disease 08/24/2007 Other and unspecified hyperlipidemia 01/10/2007 PMH - PAST MEDICAL HISTORY OF Cx scarred to post vag wall/difficult exam Pneumonia, organism unspecified(486) 01/10/2007 Regional enteritis of large intestine (HCC) 08/07/2006 Retention of urine, unspecified 01/01/2007 Rheumatoid arthritis(714.0) Dr. Mc, [facility] Type II or unspecified type diabetes mellitus without mention of complication, not stated as uncontrolled Ureterolithiasis 07/18/2019 GERD PAST SURGICAL HISTORY Procedure Laterality Date ADENOIDECTOMY PRIMARY Adenoidectomy ARTHROSCOPY KNEE DIAGNOSTIC W/WO SYNOVIAL BX SPX 1989 Arthroscopy, knee, left BRNCHSC INCL FLUOR GDNCE DX W/CELL WASHG SPX 01/2007 Bronchoscopy EGD 05/02/2023 EPIDURAL 2011 multiple ones done by Dr. Beckett ILEOSCOPY 05/02/2023 PAST SURGICAL HISTORY OF 06/2000 ILEOSTOMY/COLECTOMY PAST SURGICAL HISTORY OF 1993 CRYOCAUTERY/ MILD DYSPLASIA PAST SURGICAL HISTORY OF 03/2006 Abdominal abscess with anal fistula PRCTECT COMPL W/STOT/TOT COLCT W/VENEER JOINER BXS 12/05/2006 AP endoanal proctectomy SHOULDER ARTHROSCOPY/SURGERY Left 05/06/2020 Rotator cuff debridement, subacromial decompression/arthropla sty TONSILLECTOMY PRIMARY/SECONDARY Tonsillectomy ALLERGIES Allergen Reactions Azithromycin Unknown thinks a rash Dilaudid [Hydromorp* Swelling migraines Levemir [Insulin De* Other: See Comments Urine turned dark and smelly Methadone Swelling migraine Morphine Swelling migraines Remicade [Inflixima* Intolerance, Rash broke out in blisters with the 6th dose. Ultram [Tramadol Hc* Swelling migraines MEDICATIONS: Current Outpatient Medications Medication Sig insulin lispro (HUMALOG KWIKPEN) 100 unit/mL Inject 2 Units subcutaneously three times a day before meals. Plus sliding scale #2 If blood sugar is: Additional units < 150 0 151-200 2 201-250 4 251-300 6 301-350 8 > 350 18 units Max daily dose Insulin Lynch, Disposable, (PEN NEEDLE) 32 gauge x 5/32 Use to inject insulin up to 8 times per day. insulin glargine (LANTUS SOLOSTAR U-100 INSULIN) 100 unit/mL (3 mL) INJECT 40 UNITS UNDER THE SKIN EVERY evening Blood-Glucose Sensor (FREESTYLE GIANFRANCO 3 PLUS SENSOR) matilda Apply new sensor every fifteen (15) days to upper arm. ustekinumab (STELAR (more content not included)... Normal [facility] Luca 03-24-2025 LORIN Telephone (RULTTB) SID LEZAMA ([id number]) 1975 F Date Time Provider Department 03/24/25 CESILIA STERN During your visit today, we recorded the following information about you: Cesilia Stern 03/24/2025 10:54 AM Signed Visit Type: MSK SYN Visit Length: 45, 50 OR 60 MINUTES Order Name/Protocol: US HAND/WRIST SYNOVIAL SCREEN RT+LT Preferred Provider: N/A Comment: N/A Location: ANY FACILITY Slot held: N/A Cesilia Stern 03/24/2025 10:54 AM Signed Called patient on March 24, 2025 at 10:54 AM to schedule their MSK US exam. PT answer, PT was unable to schedule the appointment at that time, 1st attempt. Cesilia Stern 03/24/2025 1:29 PM Signed PT scheduled for MSK US on 04/10/25 at 9:15 AM at [facility]. Allergies As of Date: 03/24/2025 Noted Allergy Reaction AZITHROMYCIN 03/18/2021 16 - Unknown Comments: thinks a rash DILAUDID (HYDROMORPHONE (BULK)) 08/07/2006 7 - Swelling [...] 7 - Swelling Comments: migraines Date Reviewed: 03/24/2025 Reviewed by: Justine Bautista MA - Fully Assessed Reason for Visit: Appointment [186] Prescriptions as of 03/24/2025 - naproxen sodium (ALEVE ORAL) Take by mouth. Once daily - insulin lispro (HUMALOG KWIKPEN) 100 unit/mL Inject 2 Units subcutaneously three times a day before meals. Plus sliding scale #2 If blood sugar is: Additional units < 150 0 151-200 2 201-250 4 251-300 6 301-350 8 > 350 18 units Max daily dose - Insulin Lynch, Disposable, (PEN NEEDLE) 32 gauge x 5/32 Use to inject insulin up to 8 times per day. - insulin glargine (LANTUS SOLOSTAR U-100 INSULIN) 100 unit/mL (3 mL) INJECT 40 UNITS UNDER THE SKIN EVERY evening - Blood-Glucose Sensor (FREESTYLE GIANFRANCO 3 PLUS SENSOR) matilda Apply new sensor every fifteen (15) days to upper arm. - ustekinumab (STELARA) 45 mg/0.5 mL syringe Inject 45 mg (1 syringe) subcutaneously every 12 weeks - potassium citrate ER (UROCIT-K) 10 mEq (1,080 mg) Take 1 tablet by mouth two times a day. - pantoprazole DR (PROTONIX) 20 mg tablet Take 1 tablet by mouth daily before breakfast. Take on empty stomach, 1/2 hr before meal. - blood sugar diagnostic (ACCU-CHEK GUIDE TEST STRIPS) test strip USE WITH BLOOD GLUCOSE TEST THREE TIMES A DAY. - Lancets (ACCU-CHEK FASTCLIX LANCET DRUM) Use as instructed to check blood glucose up to 2 times daily. E11.9 - Lancing Device with Lancets ACCU CHEK FASTCLIX LANCET *DEVICE* use to check blood glucose up to 2 times per day as instructed. E11.9 - GVOKE PFS 1-PACK SYRINGE 1 mg/0.2 mL syrg INJECT 0.2 ML UNDER THE SKIN NEEDED. - clobetasol (TEMOVATE) 0.05 % ointment Apply to affected area two times a day. Face. Feet. Two weeks on and two weeks off, per [facility]. - fexofenadine HCl (LELA ORAL) Take by mouth. - levonorgestrel (MIRENA) 20 mcg/24 hours (8 yrs) 52 mg IUD 1 Each by INTRAUTERINE route as directed. - oxyCODONE-acetaminophen (PERCOCET) 5-325 mg tablet TAKE 1 TABLET BY MOUTH 3 TIMES A DAY NEEDED FOR 28 DAYS - vits62/FA/om3/dha/epa ( GUMMY ORAL) Take 2 Doses by mouth once daily. - Blood-Glucose Meter (ACCU-CHEK DIANNE) Test blood sugar(s) 2 times daily. Dx: Type 2 DM - Controlled E11.9 Insulin: No, Accu-check brand covered by insurance - Ascorbic Acid 500 mg chew Take 1,000 mg by mouth once daily. With rosehips - elderberry fruit (ELDERBERRY ORAL) Take by mouth. - COMPOUNDED PRESCRIPTION 1. V44.2 Ileostomy status (HCC) (primary diagnosis) 2. 555.1 Regional enteritis of large intestine (HCC) Ileostomy Supplies. 1. Pouches, 2. Planges, 3. Felipe seals, 4. Stoma adhesive, 5. Stoma powder, 6. Skin preps, 7. Adhesive remover wipes. Dispense 1 year supplies. - tiZANidine (ZANAFLEX) 4 mg tablet Take by mouth. . Takes 1 tablet at bedtime. Problem List As Of Date 03/24/2025 Noted Resolved REG ENTERITIS, LG INTEST [K50.10] 08/07/2006 Retention of urine, unspecified [R33.9] 01/01/2007 11/27/2018 Mixed hyperlipidemia [E78.2] 01/10/2007 Anemia, unspecified [D64.9] 01/10/2007 03/08/2012 Nonspecific abnormal results of liver function *08/24/2007 04/19/2011 Onychia and paronychia of toe [L03.039] 09/26/2007 02/18/2013 ILEOSTOMY STATUS [Z93.2] 09/28/2007 IMPAIRED GLUCOSE JUNE TEST [R73.09] 01/31/2008 04/16/2008 Type 2 diabetes mellitus treated with insulin (*02/12/2008 Fibromyalgia [M79.7] 05/05/2008 Non-alcoholic fatty liver disease [K76.0] 08/24/2007 Mild dysplasia of cervix [N87.0] 10/27/2009 03/08/2012 Fibromyalgia [M (more content not included)... Normal [facility] Creatinine + eGFR Pnl SerPlB ldon 03-24-2025 Creatinine and Glomerular filtration rate.predicted panel (S/P/Bld) 109 mL/min/1.73m??? Normal >=60 [facility] Comment on above: Order Comment: Speci men Type: BLOOD SPECIMENOrdering Facility: [facility] Address: [address] [place], [place] [id number] Result Comment: Lena mated Glomerular Filtration Rate (eGFR) is calculated using the 2020 CKD-EPI creatinine equation. This equation utilizes serum creatinine, sex, and age as parameters. The creatinine assay has traceable calibration to isotope dilution-mass spectrometry. Refer to KDIGO guidelines for clinical interpretation. In patients with unstable renal function, e.g. those with acute kidney injury, the eGFR may not accurately reflect actual GFR. Performed By: #### 1 060-8, 2822-6, 53738-0 ####[facility] [facility] LABCLIA [id number] [place] [id number] [place] Creatinine and Glomerular fi ltration rate.predicted panel (S/P/Bld)Ordered By: Marilu Durham on 03-24-2025 Creatinine [Mass/Vol] 0.62 mg/dL 0.58 - 0.96 mg/dL [facility] GFR/1.73 sq M.predicted among non-blacks MDRD (S/P/Bld) [Vol rate/Area] 109 mL/min/{1.73_m2} - PINF [facility] Comment on above: Estimated Glomerular Filtration Rate (eGFR) is calculated using the 2020 CKD-EPI creatinine equation. This equation utilizes serum creatinine, sex, and age as parameters. The creatinine assay has traceable calibration to isotope dilution-mass spectrometry. Refer to KDIGO guidelines for clinical interpretation. In patients with unstable renal function, e.g. those with acute kidney injury, the eGFR may not accurately reflect actual GFR. Interpretation and review of laboratory results Normal [facility] Creatinine and Glomerular fi ltration rate.predicted panel (S/P/Bld)on 03-24-2025 Creatinine [Mass/Vol] 0.62 mg/dL Normal 0.58-0.96 [facility] Comment on above: Order Comment: Speci men Type: BLOOD SPECIMENOrdering Facility: [facility] Address: [address] [place] [address] Performed By: #### 1 920-8, 1742-6, 72253-4 ####[facility] LABCLIA [id number] [place] [id number] [place] No Panel Informationon 03-24 Interpretation and review of laboratory results Normal [facility] XR Pelvis and Hip - left AP and Lateral frogon 03-19-2025 IMPRESSION: No acute abnormality. Mild degenerative changes Profile Saw Operator: SANTOS Transcribe Date/Time: Mar 19 2025 7:17A Dictated by : RANDAL SMITH MD This examination was interpreted and the report reviewed and electronically signed by: RANDAL SMITH MD on Mar 19 2025 7:20AM [facility] * * *Final Report* * * DATE OF EXAM: Mar 14 2025 10:49AM CHRISTOPHER 5351 - XR HIP 3V PELV+ AP/LAT LT / PROCEDURE REASON: M25.552-Pain in left hip * * * * Physician Interpretation * * * * PROCEDURE: Left knee, right shoulder, pelvis and left hip INDICATION: Left knee pain, unspecified chronicity .Pt c/o pain just under the left patella (accession [id number]), Pt c/o pain in her left hip (accession [id number]), Pt states she had a previous surgery on her right shoulder but states since the surgery her right shoulder hasn't felt correct, states she feels the right shoulder sits too far forward (accession [id number]) TECHNIQUE: XR KNEE 4V AP/PA BOTH+LAT/JANNETTE LT, XR HIP 3V PELV+ AP/LAT LT, XR SHLDR >/=3V AP/KYA AP/OTHR RT COMPARISON: None FINDINGS: Left knee: Slight lateral patellofemoral joint compartment osteoarthrosis. No fracture or dislocation. No joint effusion. Right shoulder: Punctate calcifications in the region of the distal rotator cuff suggesting rotator cuff calcific tendinosis. No fracture or dislocation. Joint spaces and acromiohumeral interval are maintained. Pelvis and left hip: Mild to moderate bilateral hip osteoarthrosis. Mild spurring from the greater trochanters bilaterally. Sacroiliac joints and symphysis pubis are maintained. No fracture or dislocation. IUD is noted. [facility] Provider, Andriy Milner - 03/19/2025 * * *Final Report* * * DATE OF EXAM: Mar 14 2025 10:49AM CHRISTOPHER 5351 - XR HIP 3V PELV+ AP/LAT LT / PROCEDURE REASON: M25.552-Pain in left hip * * * * Physician Interpretation * * * * PROCEDURE: Left knee, right shoulder, pelvis and left hip INDICATION: Left knee pain, unspecified chronicity .Pt c/o pain just under the left patella (accession [id number]), Pt c/o pain in her left hip (accession [id number]), Pt states she had a previous surgery on her right shoulder but states since the surgery her right shoulder hasn't felt correct, states she feels the right shoulder sits too far forward (accession [id number]) TECHNIQUE: XR KNEE 4V AP/PA BOTH+LAT/JANNETTE LT, XR HIP 3V PELV+ AP/LAT LT, XR SHLDR >/=3V AP/KYA AP/OTHR RT COMPARISON: None FINDINGS: Left knee: Slight lateral patellofemoral joint compartment osteoarthrosis. No fracture or dislocation. No joint effusion. Right shoulder: Punctate calcifications in the region of the distal rotator cuff suggesting rotator cuff calcific tendinosis. No fracture or dislocation. Joint spaces and acromiohumeral interval are maintained. Pelvis and left hip: Mild to moderate bilateral hip osteoarthrosis. Mild spurring from the greater trochanters bilaterally. Sacroiliac joints and symphysis pubis are maintained. No fracture or dislocation. IUD is noted. IMPRESSION IMPRESSION: No acute abnormality. Mild degenerative changes Profile Saw Operator: [facility] Transcribe Date/Time: Mar 19 2025 7:17A Dictated by : RANDAL SMITH MD This examination was interpreted and the report reviewed and electronically signed by: RANDAL SMITH MD on Mar 19 2025 7:20AM EST [facility] XR Pelvis and Hip - left AP and Lateral frogOrdered By: [facility] Provider on 03-19-2025 [facility] CNOVon 03-14-2025 CNOV Office Visit (BG ) SHELBIESID Braydon ([id number]) 1975 F Date Time Provider Department 03/14/25 10:00 AM LARA REEDER During your visit today, we recorded the following information about you: Lara Reeder DO 03/24/2025 6:31 AM Signed Follow Up Visit Chief Complaint Sid is a 49-year-old female with a history of diabetes, presenting for right shoulder pain and left knee pain. Patient presents with: Right Shoulder - Established Patient, Pain Left Knee - Established Patient, Knee Pain History of Present Illness PAIN EVALUATION 03/12/2025 2151 03/14/2025 1004 03/14/2025 1006 Pain Level: 3 3 2 Pain Location: Knee-Left Shoulder-Right Knee-Left Description: Aching;Numbness;Pressur e;Sore;Stabbing;Stiffne ss;Tenderness;Tightness Aching Aching Duration Amount of Time: -- -- 6 ongoing Duration Units: Months -- Months Frequency: Intermittent Continuous Intermittent Intervention/Comfort measure: Medication;Reposition;R elaxation;Cold;Heat;Mas maykel;Positioning Medication;Reposition;R elaxation Medication;Reposition;R elaxation HPI: Sid Lezama is a 49 year old female for a follow up visit for her right shoulder and new left knee. Last seen for a surgery on 06/22/2021 for a right shoulder arthroscopy, manipulation under anesthesia, biceps tenotomy, subscap debridement, subacromial decompression/acromiopl asty. She states she had and injury to her left knee as a child resulting in a mensicus repair. She began to have intermittent pain over the last 6 months. Is there any overall improvement in your condition? No Any new injury, since being seen last: No Right Shoulder Pain: - Underwent right shoulder surgery in June. - Reports improved ROM but persistent dull ache. - Frequent snapping, popping, and cracking sounds. - Engaging in physical therapy exercises to strengthen the shoulder. Left Knee Pain: - History of injury at age 11, resulting in stitches and subsequent arthroscopic surgery 1.5-2 years later. - Pain exacerbated by pressure when rising from a kneeling position, rated as 7/10. - Suspects hip erosion may be contributing to knee pain. Diabetes: - Previously managed with Ozempic for 3 years, resulting in 50 lb weight loss. - Discontinued Ozempic due to decreased appetite, leading to insufficient insulin production. - Currently on Zynbala and Basaglar. - Recent addition of Humalog before meals, x3 weeks, to manage high cortisol levels. REVIEW OF SYMPTOMS: Patient did not have, and does not currently have, any weight loss, malaise, fever, chills, headache, chest pain, chest pressure, palpitations, cough, shortness of breath, orthopnea, paroxsymal nocturnal dyspnea, nausea, vomiting, diarrhea, constipation, melena, hematochezia, urinary difficulties, prolonged bleeding, easily bruising, heat or cold intolerance, new onset joint pain or swelling, new onset extremity weakness or numbness, new onset auditory or visual disturbances, lightheadedness, dizziness, partial loss of consciousness or full loss of consciousness. Musculoskeletal: (+) right shoulder pain (snapping, popping, cracking), (+) left knee pain, (+) left hip pain, (-) groin pain Current Outpatient Medications Medication Sig insulin lispro (HUMALOG KWIKPEN) 100 unit/mL Inject 2 Units subcutaneously three times a day before meals. Plus sliding scale #2 If blood sugar is: Additional units < 150 0 151-200 2 201-250 4 251-300 6 301-350 8 > 350 18 units Max daily dose Insulin Lynch, Disposable, (PEN NEEDLE) 32 gauge x 5/32 Use to inject insulin up to 8 times per day. insulin glargine (LANTUS SOLOSTAR U-100 INSULIN) 100 unit/mL (3 mL) INJECT 40 UNITS UNDER THE SKIN EVERY evening Blood-Glucose Sensor (FREESTYLE GIANFRANCO 3 PLUS SENSOR) matilda Apply new sensor every fifteen (15) days to upper arm. ustekinumab (STELARA) 45 mg/0.5 mL syringe Inject 45 mg (1 syringe) subcutaneously every 12 weeks potassium citrate ER (UROCIT-K) 10 mEq (1,080 mg) Take 1 tablet by mouth two times a day. pantoprazole DR (PROTONIX) 20 mg tablet Take 1 tablet by mouth daily before breakfast. Take on empty stomach, 1/2 hr before meal. blood sugar diagnostic (ACCU-CHEK GUIDE TEST STRIPS) test strip USE WITH BLOOD GLUCOSE TEST THREE TIMES A DAY. Lancets (ACCU-CHEK FASTCLIX LANCET DRUM) Use as instructed to check blood glucose up to 2 times daily. E11.9 Lancing Device with Lancets ACCU CHEK FASTCLIX LANCET *DEVICE* use to check blood glucose up to 2 times per day as instructed. E11.9 GVOKE PFS 1-PACK SYRINGE 1 mg/0.2 mL syrg INJECT 0.2 ML UNDER THE SKIN NEEDED. clobetasol (TEMOVATE) 0.05 % ointment Apply to affected area two times a day. Face. Feet. Two weeks on and two weeks off, per [facility]ermat[facility]. fexofenadine HCl (LELA ORAL) Take by mouth. levonorgestrel (MIRENA) 20 mcg/24 (more content not included)... Normal [facility] XR HIP 3V PELV+ AP/LAT LTon 03-14-2025 XR HIP 3V PELV+ AP/LAT LT * * *Final Report* * * DATE OF EXAM: Mar 14 2025 10:49AM CHRISTOPHER 5351 - XR HIP 3V PELV+ AP/LAT LT / PROCEDURE REASON: M25.552-Pain in left hip * * * * Physician Interpretation * * * * PROCEDURE: Left knee, right shoulder, pelvis and left hip INDICATION: Left knee pain, unspecified chronicity .Pt c/o pain just under the left patella (accession [id number]), Pt c/o pain in her left hip (accession [id number]), Pt states she had a previous surgery on her right shoulder but states since the surgery her right shoulder hasn't felt correct, states she feels the right shoulder sits too far forward (accession [id number]) TECHNIQUE: XR KNEE 4V AP/PA BOTH+LAT/JANNETTE LT, XR HIP 3V PELV+ AP/LAT LT, XR SHLDR >/=3V AP/KYA AP/OTHR RT COMPARISON: None FINDINGS: Left knee: Slight lateral patellofemoral joint compartment osteoarthrosis. No fracture or dislocation. No joint effusion. Right shoulder: Punctate calcifications in the region of the distal rotator cuff suggesting rotator cuff calcific tendinosis. No fracture or dislocation. Joint spaces and acromiohumeral interval are maintained. Pelvis and left hip: Mild to moderate bilateral hip osteoarthrosis. Mild spurring from the greater trochanters bilaterally. Sacroiliac joints and symphysis pubis are maintained. No fracture or dislocation. IUD is noted. IMPRESSION: No acute abnormality. Mild degenerative changes Profile Saw Operator: SANTOS Transcribe Date/Time: Mar 19 2025 7:17A Dictated by : RANDAL SMITH MD This examination was interpreted and the report reviewed and electronically signed by: RANDAL SMITH MD on Mar 19 2025 7:20AM EST [id number] [facility] XR KNEE 4V AP/PA BOTH+LAT/ME R LTon 03-14-2025 XR KNEE 4V AP/PA BOTH+LAT/JANNETTE LT * * *Final Report* * * DATE OF EXAM: Mar 14 2025 9:52AM CHRISTOPHER 5202 - XR KNEE 4V AP/PA BOTH+LAT/JANNETTE LT / PROCEDURE REASON: M25.562-Left knee pain, unspecified chronicity * * * * Physician Interpretation * * * * PROCEDURE: Left knee, right shoulder, pelvis and left hip INDICATION: Left knee pain, unspecified chronicity .Pt c/o pain just under the left patella (accession [id number]), Pt c/o pain in her left hip (accession [id number]), Pt states she had a previous surgery on her right shoulder but states since the surgery her right shoulder hasn't felt correct, states she feels the right shoulder sits too far forward (accession [id number]) TECHNIQUE: XR KNEE 4V AP/PA BOTH+LAT/JANNETTE LT, XR HIP 3V PELV+ AP/LAT LT, XR SHLDR >/=3V AP/KYA AP/OTHR RT COMPARISON: None FINDINGS: Left knee: Slight lateral patellofemoral joint compartment osteoarthrosis. No fracture or dislocation. No joint effusion. Right shoulder: Punctate calcifications in the region of the distal rotator cuff suggesting rotator cuff calcific tendinosis. No fracture or dislocation. Joint spaces and acromiohumeral interval are maintained. Pelvis and left hip: Mild to moderate bilateral hip osteoarthrosis. Mild spurring from the greater trochanters bilaterally. Sacroiliac joints and symphysis pubis are maintained. No fracture or dislocation. IUD is noted. IMPRESSION: No acute abnormality. Mild degenerative changes Profile Saw Operator: [facility] Transcribe Date/Time: Mar 19 2025 7:17A Dictated by : RANDAL SMITH MD This examination was interpreted and the report reviewed and electronically signed by: RANDAL SMITH MD on Mar 19 2025 7:20AM EST [id number] [facility] XR Pelvis and Hip - left AP and Lateral frogon 03-14-2025 Radiology Study observation (narrative) [facility] XR SHLDR >/=3V AP/KYA AP/OTH R RTon 03-14-2025 XR SHLDR >/=3V AP/KYA AP/OTHR RT * * *Final Report* * * DATE OF EXAM: Mar 14 2025 9:52AM CHRISTOPHER 5253 - XR SHLDR >/=3V AP/KYA AP/OTHR RT / PROCEDURE REASON: [id number] * * * * Physician Interpretation * * * * PROCEDURE: Left knee, right shoulder, pelvis and left hip INDICATION: Left knee pain, unspecified chronicity .Pt c/o pain just under the left patella (accession [id number]), Pt c/o pain in her left hip (accession [id number]), Pt states she had a previous surgery on her right shoulder but states since the surgery her right shoulder hasn't felt correct, states she feels the right shoulder sits too far forward (accession [id number]) TECHNIQUE: XR KNEE 4V AP/PA BOTH+LAT/JANNETTE LT, XR HIP 3V PELV+ AP/LAT LT, XR SHLDR >/=3V AP/KYA AP/OTHR RT COMPARISON: None FINDINGS: Left knee: Slight lateral patellofemoral joint compartment osteoarthrosis. No fracture or dislocation. No joint effusion. Right shoulder: Punctate calcifications in the region of the distal rotator cuff suggesting rotator cuff calcific tendinosis. No fracture or dislocation. Joint spaces and acromiohumeral interval are maintained. Pelvis and left hip: Mild to moderate bilateral hip osteoarthrosis. Mild spurring from the greater trochanters bilaterally. Sacroiliac joints and symphysis pubis are maintained. No fracture or dislocation. IUD is noted. IMPRESSION: No acute abnormality. Mild degenerative changes Profile Saw Operator: PSCB Transcribe Date/Time: Mar 19 2025 7:17A Dictated by : RANDAL SMITH MD This examination was interpreted and the report reviewed and electronically signed by: RANDAL SMITH MD on Mar 19 2025 7:20AM EST [id number] [facility] SHELBIESID Bryson ([id number]) 1975 F Date Time Provider Department 02/21/25 ALIE STALLWORTH During your visit today, we recorded the following information about you: Cici Chen MA 02/21/2025 2:35 PM Signed What are your current sugar levels? 476 How many days have your sugar levels been this high or low? 4 weeks What symptoms are you having? no Last encounter Visit on 02/13/2025 (with Alie Stallworth) Cici Chen Chief Service Observer II Endocrinology AND Metabolism [facility] F20-X Aminata Roberson, GUILLERMINA 02/24/2025 3:17 PM Signed Returned patient's call regarding blood sugar levels No answer, left message ONUR: 02/13/25 If patient calls back please direct to nursing staff: RN's Triage the following: -Please obtain 24 hour food/drink diary -medication regimen -experiencing symptoms of hyperglycemia?? CGM data found below: GUILLERMINA Dang Katherine, GUILLERMINA 02/24/2025 4:07 PM Addendum Patient returning call to the office Patient verified by name and . Patient states the humalog came in the mail last week but I do not know how to calculate out my carbs for meals RN reviewed medication regimen with the patient: Lantus 40 units every evening Humalog 2 units before meals plus Sliding scale #2 Sliding Scale Insulin Dosing Sliding Scale 2 (2 unit for every 50 mg/dL > 150 mg/dL) SUPPLEMENTAL INSULIN If Blood Glucose (mg/dL) is < 150 Give 0 units 151-200 Give 2 unit 201-250 Give 4 units 251-300 Give 6 units 301-350 Give 8 units 351-400 Give 10 units >400 Give 12 units, call physician if blood glucose does not improve. Patient states my sugar was 138 before eating. I took 8 units with lunch at 12:33 PM. I take my insulin 30 minutes before I eat. Now my sugar is 329 RN asked patient for 24 hour food diary: Patient reportss the following: Breakfast: 2 cups of coffee with allulouce at sweetener and cream Snack: snickers (patient states my sugar was going down Lunch: turkey lunch meat, 2 cookies Patient states: I had my steroid injection last . I get them every 3 months RN informed patient she would reach out to provider to see if she wants to add a sliding scale during period of steroid injections to aid in glycemic control. Patient denies symptoms of hyperglycemia at this time. Patient states I need a lot of education and help Patient scheduled with Syd Monae RD for 02/25/25 at 0800 Do you want to make any changes to medication regimen? Please advise. GUILLERMINA Dang RN Brown, Bridget, RD 02/25/2025 11:01 AM Signed DM education visit completed 02/25/25. See virtual visit note for additional information. Patient advised to schedule a follow up visit next month with Alie Stallworth LOG BRANDER as requested Allergies As of Date: 02/21/2025 Noted Allergy Reaction AZITHROMYCIN 03/18/2021 16 - Unknown Comments: thinks a rash DILAUDID (HYDROMORPHONE (BULK)) 08/07/2006 7 - Swelling [...] 7 - Swelling Comments: migraines Date Reviewed: 02/13/2025 Reviewed by: Alie Stallworth, PERMIT TECHNICIAN.SQL ANALYST - Fully Assessed Reason for Visit: Blood Sugar Elevation [1423] Prescriptions as of 02/25/2025 - insulin lispro (HUMALOG KWIKPEN) 100 unit/mL Inject 2 Units subcutaneously three times a day before meals. Plus sliding scale #2 If blood sugar is: Additional units < 150 0 151-200 2 201-250 4 251-300 6 301-350 8 > 350 18 units Max daily dose - Insulin Lynch, Disposable, (PEN NEEDLE) 32 gauge x 5/32 Use to inject insulin up to 8 times per day. - insulin glargine (LANTUS SOLOSTAR U-100 INSULIN) 100 unit/mL (3 mL) INJECT 40 UNITS UNDER THE SKIN EVERY evening - Blood-Glucose Sensor (FREESTYLE GIANFRANCO 3 PLUS SENSOR) matilda Apply new sensor every fifteen (15) days to upper arm. - ustekinumab (STELARA) 45 mg/0.5 mL syringe Inject 45 mg (1 syringe) subcutaneously every 12 weeks - potassium citrate ER (UROCIT-K) 10 mEq (1,080 mg) Take 1 tablet by mouth two times a day. - pantoprazole DR (PROTONIX) 20 mg tablet Take 1 tablet by mouth daily before breakfast. Take on empty stomach, 1/2 hr before meal. - blood sugar diagnostic (ACCU-CHEK GUIDE TEST STRIPS) test strip USE WITH BLOOD GLUCOSE TEST THREE TIMES A DAY. - Lancets (ACCU-CHEK FASTCLIX LANCET DRUM) Use as instructed to check blood glucose up to 2 times daily. E11.9 - Lancing Device with Lancets ACCU CHEK FASTCLIX LANCET *DEVICE* use to check blood glucose up to 2 times per day as instructed. (more content not included)... Normal [facility] Tele[facility] (JUANNO) SID LEZAMA ([id number]) 1975 F Date Time Provider Department 02/17/25 ALIE STALLWORTH During your visit today, we recorded the following information about you: Savannah Allred OCCA 02/17/2025 12:50 PM Signed Fax received from [facility]. CGM with Physician's order. Completed requested Diagnosis code E10.9 w/o complications. Required Alie Stallworth signature. Fax completed form to [facility] Medical at [phone]. Fax submitted successfully. RAQUEL Meraz Allergies As of Date: 02/17/2025 Noted Allergy Reaction AZITHROMYCIN 03/18/2021 16 - Unknown Comments: thinks a rash DILAUDID (HYDROMORPHONE (BULK)) 08/07/2006 7 - Swelling [...] 7 - Swelling Comments: migraines Date Reviewed: 02/13/2025 Reviewed by: Alie Stallworth, CHRISTOPH.SQL ANALYST - Fully Assessed Prescriptions as of 02/17/2025 - insulin lispro (HUMALOG KWIKPEN) 100 unit/mL Inject 2 Units subcutaneously three times a day before meals. Plus sliding scale #2 If blood sugar is: Additional units < 150 0 151-200 2 201-250 4 251-300 6 301-350 8 > 350 18 units Max daily dose - Insulin Lynch, Disposable, (PEN NEEDLE) 32 gauge x 5/32 Use to inject insulin up to 8 times per day. - insulin glargine (LANTUS SOLOSTAR U-100 INSULIN) 100 unit/mL (3 mL) INJECT 40 UNITS UNDER THE SKIN EVERY evening - Blood-Glucose Sensor (FREESTYLE GIANFRANCO 3 PLUS SENSOR) matilda Apply new sensor every fifteen (15) days to upper arm. - ustekinumab (STELARA) 45 mg/0.5 mL syringe Inject 45 mg (1 syringe) subcutaneously every 12 weeks - potassium citrate ER (UROCIT-K) 10 mEq (1,080 mg) Take 1 tablet by mouth two times a day. - pantoprazole DR (PROTONIX) 20 mg tablet Take 1 tablet by mouth daily before breakfast. Take on empty stomach, 1/2 hr before meal. - blood sugar diagnostic (ACCU-CHEK GUIDE TEST STRIPS) test strip USE WITH BLOOD GLUCOSE TEST THREE TIMES A DAY. - Lancets (ACCU-CHEK FASTCLIX LANCET DRUM) Use as instructed to check blood glucose up to 2 times daily. E11.9 - Lancing Device with Lancets ACCU CHEK FASTCLIX LANCET *DEVICE* use to check blood glucose up to 2 times per day as instructed. E11.9 - GVOKE PFS 1-PACK SYRINGE 1 mg/0.2 mL syrg INJECT 0.2 ML UNDER THE SKIN NEEDED. - clobetasol (TEMOVATE) 0.05 % ointment Apply to affected area two times a day. Face. Feet. Two weeks on and two weeks off, per [facility] Dermatology. - fexofenadine HCl (LELA ORAL) Take by mouth. - levonorgestrel (MIRENA) 20 mcg/24 hours (8 yrs) 52 mg IUD 1 Each by INTRAUTERINE route as directed. - oxyCODONE-acetaminophen (PERCOCET) 5-325 mg tablet TAKE 1 TABLET BY MOUTH 3 TIMES A DAY NEEDED FOR 28 DAYS - vits62/FA/om3/dha/epa ( GUMMY ORAL) Take 2 Doses by mouth once daily. - Blood-Glucose Meter (ACCU-CHEK DIANNE) Test blood sugar(s) 2 times daily. Dx: Type 2 DM - Controlled E11.9 Insulin: No, Accu-check brand covered by insurance - Ascorbic Acid 500 mg chew Take 1,000 mg by mouth once daily. With rosehips - elderberry fruit (ELDERBERRY ORAL) Take by mouth. - COMPOUNDED PRESCRIPTION 1. V44.2 Ileostomy status (HCC) (primary diagnosis) 2. 555.1 Regional enteritis of large intestine (HCC) Ileostomy Supplies. 1. Pouches, 2. Planges, 3. Felipe seals, 4. Stoma adhesive, 5. Stoma powder, 6. Skin preps, 7. Adhesive remover wipes. Dispense 1 year supplies. - tiZANidine (ZANAFLEX) 4 mg tablet Take by mouth. . Takes 1 tablet at bedtime. Problem List As Of Date 02/17/2025 Noted Resolved REG ENTERITIS, LG INTEST [K50.10] 08/07/2006 Retention of urine, unspecified [R33.9] 01/01/2007 11/27/2018 Mixed hyperlipidemia [E78.2] 01/10/2007 Anemia, unspecified [D64.9] 01/10/2007 03/08/2012 Nonspecific abnormal results of liver function *08/24/2007 04/19/2011 Onychia and paronychia of toe [L03.039] 09/26/2007 02/18/2013 ILEOSTOMY STATUS [Z93.2] 09/28/2007 IMPAIRED GLUCOSE JUNE TEST [R73.09] 01/31/2008 04/16/2008 Type 2 diabetes mellitus treated with insulin (*02/12/2008 Fibromyalgia [M79.7] 05/05/2008 Non-alcoholic fatty liver disease [K76.0] 08/24/2007 Mild dysplasia of cervix [N87.0] 10/27/2009 03/08/2012 Fibromyalgia [M79.7] 04/19/2011 Depression [F32.A] 08/30/2010 11/27/2018 Eczematous dermatitis: hands [L30.9] 11/23/2010 02/18/2013 Xerosis cutis [L85.3] 11/23/2010 02/18/2013 Atopic eczema [L20.9] 11/23/2010 Psoriasis [L40.9] 11/24/2010 Contact dermatitis and other eczema, due to uns*10/18/2011 01/03/2017 Hypoglycemia [E16.2] 10/24/2011 03/08/2012 (more content not included)... [facility] SID LE[facility] ([id number]) 1975 F Date Time Provider Department 02/17/25 ALIE STALLWORTH ENDOMN During your visit today, we recorded the following information about you: Alayna Juarez 02/17/2025 1:51 PM Signed Patient called her pharmacy said they do not understand the sliding scale portion of the directions for the Humulog Kwikpen. Alayna Juarez Chief Service Observer Medical Specialty [facility] X[employer] Allergies As of Date: 02/17/2025 Noted Allergy Reaction AZITHROMYCIN 03/18/2021 16 - Unknown Comments: thinks a rash DILAUDID (HYDROMORPHONE (BULK)) 08/07/2006 7 - Swelling [...] 7 - Swelling Comments: migraines Date Reviewed: 02/13/2025 Reviewed by: Alie Stallworth APRN.SQL ANALYST - Fully Assessed Reason for Visit: Medication Problem [65] Prescriptions as of 02/17/2025 - insulin lispro (HUMALOG KWIKPEN) 100 unit/mL Inject 2 Units subcutaneously three times a day before meals. Plus sliding scale #2 If blood sugar is: Additional units < 150 0 151-200 2 201-250 4 251-300 6 301-350 8 > 350 18 units Max daily dose - Insulin Lynch, Disposable, (PEN NEEDLE) 32 gauge x 5/32 Use to inject insulin up to 8 times per day. - insulin glargine (LANTUS SOLOSTAR U-100 INSULIN) 100 unit/mL (3 mL) INJECT 40 UNITS UNDER THE SKIN EVERY evening - Blood-Glucose Sensor (FREESTYLE GIANFRANCO 3 PLUS SENSOR) matilda Apply new sensor every fifteen (15) days to upper arm. - ustekinumab (STELARA) 45 mg/0.5 mL syringe Inject 45 mg (1 syringe) subcutaneously every 12 weeks - potassium citrate ER (UROCIT-K) 10 mEq (1,080 mg) Take 1 tablet by mouth two times a day. - pantoprazole DR (PROTONIX) 20 mg tablet Take 1 tablet by mouth daily before breakfast. Take on empty stomach, 1/2 hr before meal. - blood sugar diagnostic (ACCU-CHEK GUIDE TEST STRIPS) test strip USE WITH BLOOD GLUCOSE TEST THREE TIMES A DAY. - Lancets (ACCU-CHEK FASTCLIX LANCET DRUM) Use as instructed to check blood glucose up to 2 times daily. E11.9 - Lancing Device with Lancets ACCU CHEK FASTCLIX LANCET *DEVICE* use to check blood glucose up to 2 times per day as instructed. E11.9 - GVOKE PFS 1-PACK SYRINGE 1 mg/0.2 mL syrg INJECT 0.2 ML UNDER THE SKIN NEEDED. - clobetasol (TEMOVATE) 0.05 % ointment Apply to affected area two times a day. Face. Feet. Two weeks on and two weeks off, per [facility] Dermatology. - fexofenadine HCl (LELA ORAL) Take by mouth. - levonorgestrel (MIRENA) 20 mcg/24 hours (8 yrs) 52 mg IUD 1 Each by INTRAUTERINE route as directed. - oxyCODONE-acetaminophen (PERCOCET) 5-325 mg tablet TAKE 1 TABLET BY MOUTH 3 TIMES A DAY NEEDED FOR 28 DAYS - vits62/FA/om3/dha/epa ( GUMMY ORAL) Take 2 Doses by mouth once daily. - Blood-Glucose Meter (ACCU-CHEK DIANNE) Test blood sugar(s) 2 times daily. Dx: Type 2 DM - Controlled E11.9 Insulin: No, Accu-check brand covered by insurance - Ascorbic Acid 500 mg chew Take 1,000 mg by mouth once daily. With rosehips - elderberry fruit (ELDERBERRY ORAL) Take by mouth. - COMPOUNDED PRESCRIPTION 1. V44.2 Ileostomy status (HCC) (primary diagnosis) 2. 555.1 Regional enteritis of large intestine (HCC) Ileostomy Supplies. 1. Pouches, 2. Planges, 3. Felipe seals, 4. Stoma adhesive, 5. Stoma powder, 6. Skin preps, 7. Adhesive remover wipes. Dispense 1 year supplies. - tiZANidine (ZANAFLEX) 4 mg tablet Take by mouth. . Takes 1 tablet at bedtime. Problem List As Of Date 02/17/2025 Noted Resolved REG ENTERITIS, LG INTEST [K50.10] 08/07/2006 Retention of urine, unspecified [R33.9] 01/01/2007 11/27/2018 Mixed hyperlipidemia [E78.2] 01/10/2007 Anemia, unspecified [D64.9] 01/10/2007 03/08/2012 Nonspecific abnormal results of liver function *08/24/2007 04/19/2011 Onychia and paronychia of toe [L03.039] 09/26/2007 02/18/2013 ILEOSTOMY STATUS [Z93.2] 09/28/2007 IMPAIRED GLUCOSE JUNE TEST [R73.09] 01/31/2008 04/16/2008 Type 2 diabetes mellitus treated with insulin (*02/12/2008 Fibromyalgia [M79.7] 05/05/2008 Non-alcoholic fatty liver disease [K76.0] 08/24/2007 Mild dysplasia of cervix [N87.0] 10/27/2009 03/08/2012 Fibromyalgia [M79.7] 04/19/2011 Depression [F32.A] 08/30/2010 11/27/2018 Eczematous dermatitis: hands [L30.9] 11/23/2010 02/18/2013 Xerosis cutis [L85.3] 11/23/2010 02/18/2013 Atopic eczema [L20.9] 11/23/2010 Psoriasis [L40.9] 11/24/2010 Contact dermatitis and other eczema, due to uns*10/18/2011 01/03/2017 Hypoglycemia [E16.2] 10/24/2011 03/08/2012 (more content not included)... Normal [facility] ALBUMIN/CREATININE RATIO, UR INEon 02-14-2025 Albumin DL <= 20 mg/L (U) [Mass/Vol] mg/dL Normal [facility] Comment on above: Order Comment: Speci men Type: URINE SPECIMEN Ordering Facility: [facility] Address: [address] [place] [address] Performed By: #### U ACR #### [facility] CLIA [id number] [address] [place] [address] [place] Albumin/Creatinine (U) [Mass ratio] Normal [facility] Comment on above: Order Comment: Speci men Type: URINE SPECIMEN Ordering Facility: [facility] Address: [address] [place] [address] Result Comment: Not calculated Adult Male and Female Nephrotic Criteria: <30 mg/g is considered normal to mildly increased 30-300 mg/g is considered moderately increased >300 mg/g is considered severely increased KDIGO. (2013). KDIGO 2012 Clinical Practice Guideline for the Evaluation and Management of Chronic Kidney Disease. Official Journal of the International Society of Nephrology, 3(1), 1-150. Performed By: #### U ACR #### [facility] CLIA [id number] [address] [place] [address] [place] Creatinine (U) [Mass/Vol] 19.9 mg/dL Low 20.0-300.0 [facility] Comment on above: Order Comment: Speci men Type: URINE SPECIMEN Ordering Facility: [facility] Address: [address] [place] [address] Performed By: #### U ACR #### [facility] CLIA [id number] [address] [place], [place] [id number] [facility] [place] CNPNon 02-04-2025 CNPN Telephone (ORMDNA) SID LEZAMA ([id number]) 1975 F Date Time Provider Department 02/04/25 LARA REEDER During your visit today, we recorded the following information about you: Adrienne Jean 02/04/2025 11:08 AM Signed Patient is on the wait list for the following: patient has appt on 03/14 for right shoulder, wondering if will also see for her knee within appt to reduce amount of trips to clinic contact number on file Please advise. Amelia Langley, RN 02/04/2025 11:20 AM Signed Updated appt time to 30 minutes to give extended appt -ok to see for knee too -just need to know which knee to put in order Yury, Sarah 02/04/2025 11:56 AM Signed Left knee Appt notes updated Sarah Sperry Allergies As of Date: 02/04/2025 Noted Allergy Reaction AZITHROMYCIN 03/18/2021 16 - Unknown Comments: thinks a rash DILAUDID (HYDROMORPHONE (BULK)) 08/07/2006 7 - Swelling [...] 7 - Swelling Comments: migraines Date Reviewed: 12/18/2024 Reviewed by: Vinita Calvin RN - Fully Assessed Reason for Visit: Appointment [186] Patient Question [4487] Prescriptions as of 02/04/2025 - potassium citrate ER (UROCIT-K) 10 mEq (1,080 mg) Take 1 tablet by mouth two times a day. - potassium citrate ER (UROCIT-K) 10 mEq (1,080 mg) Take 1 tablet by mouth two times a day. - tamsulosin (FLOMAX) 0.4 mg Take 1 capsule by mouth daily at bedtime for 14 days. - insulin glargine (LANTUS SOLOSTAR U-100 INSULIN) 100 unit/mL (3 mL) INJECT 20 UNITS UNDER THE SKIN EVERY evening - pantoprazole DR (PROTONIX) 20 mg tablet Take 1 tablet by mouth daily before breakfast. Take on empty stomach, 1/2 hr before meal. - blood sugar diagnostic (ACCU-CHEK GUIDE TEST STRIPS) test strip USE WITH BLOOD GLUCOSE TEST THREE TIMES A DAY. - Lancets (ACCU-CHEK FASTCLIX LANCET DRUM) Use as instructed to check blood glucose up to 2 times daily. E11.9 - Insulin Lynch, Disposable, (DROPLET PEN NEEDLE) 32 gauge x 5/32 USE TO INJECT ONE TIME DAILY - Lancing Device with Lancets ACCU CHEK FASTCLIX LANCET *DEVICE* use to check blood glucose up to 2 times per day as instructed. E11.9 - GVOKE PFS 1-PACK SYRINGE 1 mg/0.2 mL syrg INJECT 0.2 ML UNDER THE SKIN NEEDED. - Blood-Glucose Sensor (FREESTYLE GIANFRANCO 3 SENSOR) matilda Apply new sensor every fourteen (14) days to upper arm. E11.9 - ustekinumab (STELARA) 45 mg/0.5 mL sub-Q syringe Inject 45 mg (1 syringe) subcutaneously every 12 weeks - clobetasol (TEMOVATE) 0.05 % ointment Apply to affected area two times a day. Face. Feet. Two weeks on and two weeks off, per [facility] Dermatology. - fexofenadine HCl (LELA ORAL) Take by mouth. - levonorgestrel (MIRENA) 20 mcg/24 hours (8 yrs) 52 mg IUD 1 Each by INTRAUTERINE route as directed. - oxyCODONE-acetaminophen (PERCOCET) 5-325 mg tablet TAKE 1 TABLET BY MOUTH 3 TIMES A DAY NEEDED FOR 28 DAYS - vits62/FA/om3/dha/epa ( GUMMY ORAL) Take 2 Doses by mouth once daily. - Blood-Glucose Meter (ACCU-CHEK DIANNE) Test blood sugar(s) 2 times daily. Dx: Type 2 DM - Controlled E11.9 Insulin: No, Accu-check brand covered by insurance - Ascorbic Acid 500 mg chew Take 1,000 mg by mouth once daily. With rosehips - elderberry fruit (ELDERBERRY ORAL) Take by mouth. - COMPOUNDED PRESCRIPTION 1. V44.2 Ileostomy status (HCC) (primary diagnosis) 2. 555.1 Regional enteritis of large intestine (HCC) Ileostomy Supplies. 1. Pouches, 2. Planges, 3. Felipe seals, 4. Stoma adhesive, 5. Stoma powder, 6. Skin preps, 7. Adhesive remover wipes. Dispense 1 year supplies. - tiZANidine (ZANAFLEX) 4 mg tablet Take by mouth. . Takes 1 tablet at bedtime. Problem List As Of Date 02/04/2025 Noted Resolved REG ENTERITIS, LG INTEST [K50.10] 08/07/2006 Retention of urine, unspecified [R33.9] 01/01/2007 11/27/2018 Mixed hyperlipidemia [E78.2] 01/10/2007 Anemia, unspecified [D64.9] 01/10/2007 03/08/2012 Nonspecific abnormal results of liver function *08/24/2007 04/19/2011 Onychia and paronychia of toe [L03.039] 09/26/2007 02/18/2013 ILEOSTOMY STATUS [Z93.2] 09/28/2007 IMPAIRED GLUCOSE JUNE TEST [R73.09] 01/31/2008 04/16/2008 Type 2 diabetes mellitus treated with insulin (*02/12/2008 Fibromyalgia [M79.7] 05/05/2008 Non-alcoholic fatty liver disease [K76.0] 08/24/2007 Mild dysplasia of cervix [N87.0] 10/27/2009 03/08/2012 Fibromyalgia [M79.7] 04/19/2011 Depression [F32.A] 08/30/2010 11/27/2018 Eczematous dermatitis: hands (more content not included)... Normal [facility] Basic metabolic 2000 panelon 01-10-2025 Anion gap [Moles/Vol] 10 mmol/L Normal 8-15 [facility] Comment on above: Order Comment: Speci men Type: URINE SPECIMEN Ordering Facility: [facility] Address: [address] [place] [address] Performed By: #### 2 106-3 #### [facility] CLIA [id number] [address] [place] [address] [place] Calcium [Mass/Vol] 10.4 mg/dL High 8.5-10.2 [facility] Comment on above: Order Comment: Speci men Type: URINE SPECIMEN Ordering Facility: [facility] Address: [address] [place] [address] Performed By: #### 2 106-3 #### [facility] CLIA [id number] [address] [place] [address] [place] Chloride [Moles/Vol] 102 mmol/L Normal 98-107 [facility] Comment on above: Order Comment: Speci men Type: URINE SPECIMEN Ordering Facility: [facility] Address: [address] [place] [address] Performed By: #### 2 106-3 #### [facility] CLIA [id number] [address] [place] [address] [place] CO2 [Moles/Vol] 23 mmol/L Normal 22-30 [facility] Comment on above: Order Comment: Speci men Type: URINE SPECIMEN Ordering Facility: [facility] Address: [address] [place] [address] Performed By: #### 2 106-3 #### [facility] CLIA [id number] [address] [place] Creatinine [Mass/Vol] 0.59 mg/dL Normal 0.58-0.96 [facility] Comment on above: Order Comment: Joelle argueta Type: URINE SPECIMEN Ordering Facility: [facility] Address: [address] [place] [address] Performed By: #### 2 106-3 #### [facility] CLIA [id number] [address] Creatinine and Glomerular filtration rate.predicted panel (S/P/Bld) 110 mL/min/1.73m??? Normal >=60 [facility] Comment on above: Order Comment: Joelle argueta Type: URINE SPECIMEN Ordering Facility: [facility] Address: [address] [place] [address] Result Comment: Lena mated Glomerular Filtration Rate (eGFR) is calculated using the 2020 CKD-EPI creatinine equation. This equation utilizes serum creatinine, sex, and age as parameters. The creatinine assay has traceable calibration to isotope dilution-mass spectrometry. Refer to KDIGO guidelines for clinical interpretation. In patients with unstable renal function, e.g. those with acute kidney injury, the eGFR may not accurately reflect actual GFR. Performed By: #### 2 106-3 #### [facility] CLIA [id number] [address] [facility] Glucose [Mass/Vol] 276 mg/dL High 74-99 [facility] Comment on above: Order Comment: Joelle argueta Type: URINE SPECIMEN Ordering Facility: [facility] Address: [address] [place] [address] Result Comment: The [place] [employer] (ADA) provides guidance for cutoff values for fasting glucose and random glucose. The ADA defines fasting as no caloric intake for at least 8 hours. Fasting plasma glucose results between 100 to 125 [...] Standards of Medical Care in Diabetes 2016, [place] [employer]. Diabetes Care. 2016.39(Suppl 1). Performed By: #### 2 106-3 #### [facility] CLIA [id number] [address] Potassium [Moles/Vol] 4.6 mmol/L Normal 3.7-5.1 [facility] Comment on above: Order Comment: Speci men Type: URINE SPECIMEN Ordering Facility: [facility] Address: [address] [place] [address] Performed By: #### 2 106-3 #### [facility] CLIA [id number] [address] Sodium [Moles/Vol] 135 mmol/L Low 136-144 [facility] Comment on above: Order Comment: Speci men Type: URINE SPECIMEN Ordering Facility: [facility] Address: [address] [place] [address] Performed By: #### 2 106-3 #### [facility] CLIA [id number] [address] STATES [facility] Urea nitrogen [Mass/Vol] 14 mg/dL Normal 7-21 [facility] Comment on above: Order Comment: Speci men Type: URINE SPECIMEN Ordering Facility: [facility] Address: [address] [place] [address] Performed By: #### 2 106-3 #### [facility] CLIA [id number] [address] [place] Miscellaneous Lab Procedureo n 01-10-2025 [facility] [place] [facility] [place] Normal [facility] Comment on above: Order Comment: [id number] URINE TOX Result Comment: [phone] 6+OXYCODONE-BUND (ng/mL) DRUG RESULT SCREEN CUTOFF ____ Amphetamines,Urine Negative ng/mL 1000 Amphetamine test includes Amphetamine and Methamphetamine. Barbiturates Negative ng/mL 200 Benzodiazepines Negative ng/mL 200 Cannabinoid Negative ng/mL 20 Cocaine (Metab) Negative ng/mL 300 Opiates Negative ng/mL 300 Opiates test includes Codeine, Morphine, Hydromorphone, Hydrocodone. Oxycodone/Oxymorphone,Urine Positive ng/mL 300 Test includes Oxycodone and Oxymorphone. Oxycodone Positive Oxycodone Conf,MS,UR 772 ng/mL 300 Oxymorphone Positive Oxymorphone Conf,MS,UR 579 ng/mL 300 TESTING PERFORMED AT [facility]. ORIGINAL REPORT ON FILE IN LAB CONTAINS ADDITIONAL TEST SITE INFORMATION. Performed By: #### L 801.1541, L505.5000 #### [facility] [address] [place], [address] [facility] 01-09-2025 [facility] Telephone (UROLST) SID LEZAMA ([id number]) 1975 F Date Time Provider Department 01/09/25 SAMY BARRAGAN During your visit today, we recorded the following information about you: Magdalena Stark 01/09/2025 11:12 AM Signed Patient at the lab to have blood drawn per Samy Barragan; but there are no orders. Please enter orders and call patient to advise. Raya Roman, RN 01/09/2025 11:32 AM Signed Called and spoke with patient to inform her that BMP lab order has been placed. She can have this done at her earliest convenience. Patient voice understanding. Raya Roman RN January 09, 2025 11:32 AM Allergies As of Date: 01/09/2025 Noted Allergy Reaction AZITHROMYCIN 03/18/2021 16 - Unknown Comments: thinks a rash DILAUDID (HYDROMORPHONE (BULK)) 08/07/2006 7 - Swelling [...] 7 - Swelling Comments: migraines Date Reviewed: 12/18/2024 Reviewed by: Vinita Calvin RN - Fully Assessed Reason for Visit: Orders [681] Primary Visit Diagnosis:Nephrolithias is [N20.0] Order(s):BASIC METABOLIC PANEL [SQBMP] Order #: [id number] FUTURE Prescriptions as of 01/09/2025 - valACYclovir (VALTREX) 1 gram tablet Take 2 tablets by mouth every 12 hours for 2 doses. - potassium citrate ER (UROCIT-K) 10 mEq (1,080 mg) Take 1 tablet by mouth two times a day. - potassium citrate ER (UROCIT-K) 10 mEq (1,080 mg) Take 1 tablet by mouth two times a day. - tamsulosin (FLOMAX) 0.4 mg Take 1 capsule by mouth daily at bedtime for 14 days. - semaglutide (OZEMPIC) 0.25 mg or 0.5 mg (2 mg/3 mL) pen Inject 0.5 mg subcutaneously one time a week. - insulin glargine (LANTUS SOLOSTAR U-100 INSULIN) 100 unit/mL (3 mL) INJECT 20 UNITS UNDER THE SKIN EVERY evening - pantoprazole DR (PROTONIX) 20 mg tablet Take 1 tablet by mouth daily before breakfast. Take on empty stomach, 1/2 hr before meal. - blood sugar diagnostic (ACCU-CHEK GUIDE TEST STRIPS) test strip USE WITH BLOOD GLUCOSE TEST THREE TIMES A DAY. - Lancets (ACCU-CHEK FASTCLIX LANCET DRUM) Use as instructed to check blood glucose up to 2 times daily. E11.9 - Insulin Lynch, Disposable, (DROPLET PEN NEEDLE) 32 gauge x 5/32 USE TO INJECT ONE TIME DAILY - Lancing Device with Lancets ACCU CHEK FASTCLIX LANCET *DEVICE* use to check blood glucose up to 2 times per day as instructed. E11.9 - GVOKE PFS 1-PACK SYRINGE 1 mg/0.2 mL syrg INJECT 0.2 ML UNDER THE SKIN NEEDED. - Blood-Glucose Sensor (FREESTYLE GIANFRANCO 3 SENSOR) matilda Apply new sensor every fourteen (14) days to upper arm. E11.9 - ustekinumab (STELARA) 45 mg/0.5 mL sub-Q syringe Inject 45 mg (1 syringe) subcutaneously every 12 weeks - clobetasol (TEMOVATE) 0.05 % ointment Apply to affected area two times a day. Face. Feet. Two weeks on and two weeks off, per [facility]. - fexofenadine HCl (LELA ORAL) Take by mouth. - levonorgestrel (MIRENA) 20 mcg/24 hours (8 yrs) 52 mg IUD 1 Each by INTRAUTERINE route as directed. - oxyCODONE-acetaminophen (PERCOCET) 5-325 mg tablet TAKE 1 TABLET BY MOUTH 3 TIMES A DAY NEEDED FOR 28 DAYS - vits62/FA/om3/dha/epa ( GUMMY ORAL) Take 2 Doses by mouth once daily. - Blood-Glucose Meter (ACCU-CHEK DIANNE) Test blood sugar(s) 2 times daily. Dx: Type 2 DM - Controlled E11.9 Insulin: No, Accu-check brand covered by insurance - Ascorbic Acid 500 mg chew Take 1,000 mg by mouth once daily. With rosehips - elderberry fruit (ELDERBERRY ORAL) Take by mouth. - COMPOUNDED PRESCRIPTION 1. V44.2 Ileostomy status (HCC) (primary diagnosis) 2. 555.1 Regional enteritis of large intestine (HCC) Ileostomy Supplies. 1. Pouches, 2. Planges, 3. Felipe seals, 4. Stoma adhesive, 5. Stoma powder, 6. Skin preps, 7. Adhesive remover wipes. Dispense 1 year supplies. - tiZANidine (ZANAFLEX) 4 mg tablet Take by mouth. . Takes 1 tablet at bedtime. Problem List As Of Date 01/09/2025 Noted Resolved REG ENTERITIS, LG INTEST [K50.10] 08/07/2006 Retention of urine, unspecified [R33.9] 01/01/2007 11/27/2018 Mixed hyperlipidemia [E78.2] 01/10/2007 Anemia, unspecified [D64.9] 01/10/2007 03/08/2012 Nonspecific abnormal results of liver function *08/24/2007 04/19/2011 Onychia and paronychia of toe [L03.039] 09/26/2007 02/18/2013 ILEOSTOMY STATUS [Z93.2] 09/28/2007 IMPAIRED GLUCOSE JUNE TEST [R73.09] 01/31/2008 04/16/2008 Type 2 diabetes mellitus treated with insulin (*02/12/2008 Fibromyalgia [M79.7] 05/05/2008 Non-alcoholic fatty liver disease [K76.0] 08/24/2007 (more content not included)... Normal [facility] Urine Drug Screen (VISTA)on 01-02-2025 AMPHETAMINES Negative Normal <1000 ng/mL [facility] Comment on above: Order Comment: UNK Performed By: #### L 801.1541, L505.5000 #### [facility] [address] [place], [address] BARBITIURATES Negative Normal < 200 ng/mL [facility] Comment on above: Order Comment: UNK Performed By: #### L 801.1541, L505.5000 #### [facility] [address] [place], [address] BENZODIAZIPINE Negative Normal < 200 ng/mL [facility] Comment on above: Order Comment: UNK Performed By: #### L 801.1541, L505.5000 #### [facility] [address] [place], [address] COCAINE Negative Normal < 300 ng/mL [facility] Comment on above: Order Comment: UNK Performed By: #### L 801.1541, L505.5000 #### [facility] [address] [place], [address] ECSTACY Negative Normal < 500 ng/mL [facility] Comment on above: Order Comment: UNK Performed By: #### L 801.1541, L505.5000 #### [facility] [address] [place], [address] METHADONE Negative Normal < 300 ng/mL [facility] Comment on above: Order Comment: UNK Performed By: #### L 801.1541, L505.5000 #### [facility] [address] [place], [address] OPIATES Negative Normal < 300 ng/mL [facility] Comment on above: Order Comment: UNK Performed By: #### L 801.1541, L505.5000 #### [facility] [address] [place], [address] PCP Negative Normal < 25 ng/mL [facility] Comment on above: Order Comment: UNK Performed By: #### L 801.1541, L505.5000 #### [facility] [address] [place], [address] THC Negative Normal < 50 ng/mL [facility] Comment on above: Order Comment: UNK Performed By: #### L 801.1541, L505.5000 #### [facility] [address] [place], [address] VISTA UDS PH 5 Normal [facility] Comment on above: Order Comment: UNK Performed By: #### L 801.1541, L505.5000 #### [facility] [address] [place], [address] CNPChrissie 12-31-2024 CNPN Telephone (UROLST) SID LEZAMA ([id number]) 1975 F Date Time Provider Department 12/31/24 SAMY BARRAGAN During your visit today, we recorded the following information about you: Magdalena Stark 12/31/2024 11:39 AM Signed Patient calling with an issue concerning potassium citrate ER (UROCIT-K) 10 mEq (1,080 mg) It is coming out whole in her ileostomy. Please call to advise. Kailee Taylor 01/13/2025 2:25 PM Signed Patient calling to speak with an RN regarding potassium citrate. PT states the medication is coming out whole. PT asking if she should discontinue medication. Please call or send [facility] message to advise. [phone] Raya Roman RN 01/13/2025 3:03 PM Signed Called and spoke with patient. Went over blood work results. Informed her that Potassium is okay. Her body is absorbing the medication, but it is common for the outer shell to come out whole. Advised that she can continue with the tablets, but if she prefers liquid, happy to send that in instead. Patient states that its not causing her any issues, she just wanted to double check. Will continue with tablets at this time. Advised to reach out to office should she have any further questions or concerns. Patient voiced understanding. Raya Roman RN January 13, 2025 3:03 PM Allergies As of Date: 12/31/2024 Noted Allergy Reaction AZITHROMYCIN 03/18/2021 16 - Unknown Comments: thinks a rash DILAUDID (HYDROMORPHONE (BULK)) 08/07/2006 7 - Swelling [...] 7 - Swelling Comments: migraines Date Reviewed: 12/18/2024 Reviewed by: Vinita Calvin RN - Fully Assessed Reason for Visit: Medication Problem [65] Prescriptions as of 01/13/2025 - potassium citrate ER (UROCIT-K) 10 mEq (1,080 mg) Take 1 tablet by mouth two times a day. - potassium citrate ER (UROCIT-K) 10 mEq (1,080 mg) Take 1 tablet by mouth two times a day. - tamsulosin (FLOMAX) 0.4 mg Take 1 capsule by mouth daily at bedtime for 14 days. - semaglutide (OZEMPIC) 0.25 mg or 0.5 mg (2 mg/3 mL) pen Inject 0.5 mg subcutaneously one time a week. - insulin glargine (LANTUS SOLOSTAR U-100 INSULIN) 100 unit/mL (3 mL) INJECT 20 UNITS UNDER THE SKIN EVERY evening - pantoprazole DR (PROTONIX) 20 mg tablet Take 1 tablet by mouth daily before breakfast. Take on empty stomach, 1/2 hr before meal. - blood sugar diagnostic (ACCU-CHEK GUIDE TEST STRIPS) test strip USE WITH BLOOD GLUCOSE TEST THREE TIMES A DAY. - Lancets (ACCU-CHEK FASTCLIX LANCET DRUM) Use as instructed to check blood glucose up to 2 times daily. E11.9 - Insulin Lynch, Disposable, (DROPLET PEN NEEDLE) 32 gauge x 5/32 USE TO INJECT ONE TIME DAILY - Lancing Device with Lancets ACCU CHEK FASTCLIX LANCET *DEVICE* use to check blood glucose up to 2 times per day as instructed. E11.9 - GVOKE PFS 1-PACK SYRINGE 1 mg/0.2 mL syrg INJECT 0.2 ML UNDER THE SKIN NEEDED. - Blood-Glucose Sensor (FREESTYLE GAINFRANCO 3 SENSOR) matilda Apply new sensor every fourteen (14) days to upper arm. E11.9 - ustekinumab (STELARA) 45 mg/0.5 mL sub-Q syringe Inject 45 mg (1 syringe) subcutaneously every 12 weeks - clobetasol (TEMOVATE) 0.05 % ointment Apply to affected area two times a day. Face. Feet. Two weeks on and two weeks off, per [facility]. - fexofenadine HCl (LELA ORAL) Take by mouth. - levonorgestrel (MIRENA) 20 mcg/24 hours (8 yrs) 52 mg IUD 1 Each by INTRAUTERINE route as directed. - oxyCODONE-acetaminophen (PERCOCET) 5-325 mg tablet TAKE 1 TABLET BY MOUTH 3 TIMES A DAY NEEDED FOR 28 DAYS - vits62/FA/om3/dha/epa ( GUMMY ORAL) Take 2 Doses by mouth once daily. - Blood-Glucose Meter (ACCU-CHEK DIANNE) Test blood sugar(s) 2 times daily. Dx: Type 2 DM - Controlled E11.9 Insulin: No, Accu-check brand covered by insurance - Ascorbic Acid 500 mg chew Take 1,000 mg by mouth once daily. With rosehips - elderberry fruit (ELDERBERRY ORAL) Take by mouth. - COMPOUNDED PRESCRIPTION 1. V44.2 Ileostomy status ([facility]) (primary diagnosis) 2. 555.1 Regional enteritis of large intestine ([facility]) Ileostomy Supplies. 1. Pouches, 2. Planges, 3. Felipe seals, 4. Stoma adhesive, 5. Stoma powder, 6. Skin preps, 7. Adhesive remover wipes. Dispense 1 year supplies. - tiZANidine (ZANAFLEX) 4 mg tablet Take by mouth. . Takes 1 tablet at bedtime. Problem List As Of Date 12/31/2024 Noted Resolved REG ENTERITIS, LG INTEST [K50.10] 08/07/2006 Retention of urine, unspecified [R33.9] 01/01/2007 11/27/2018 Mixed hyperlipid (more content not included)... Normal [facility] ALT SerPl-cCncon 12-18-2024 ALT [Catalytic activity/Vol] 30 U/L Normal 7-38 [facility] Comment on above: Order Comment: Speci men Type: BLOOD SPECIMEN Ordering Facility: [facility] Address: [address] [address] Performed By: #### 1 742-6, 9050-8, 0211-7, CRET1 #### [facility] CLIA [id number] [address] [place] [address] [place] AST SerPl-cCncon 12-18-2024 AST [Catalytic activity/Vol] 17 U/L Normal 13-35 [facility] Comment on above: Order Comment: Speci men Type: BLOOD SPECIMEN Ordering Facility: [facility] Address: [address] [place] [address] Performed By: #### 1 742-6, 1920-06, 1751-05, CRET1 #### [facility] CLIA [id number] [address] [place] [address] [place] Albumin SerPl-mCncon 025 Albumin [Mass/Vol] 4.3 g/dL Normal 3.9-4.9 [facility] Comment on above: Order Comment: Speci men Type: BLOOD SPECIMEN Ordering Facility: [facility] Address: [address] [place] [address] Performed By: #### 1 742-6, 1920-06, 1751-05, CRET1 #### [facility] CLIA [id number] [address] [place] [address] [place] CBC W Auto Differential pane l (Bld)on 12-18-2024 Basophils (Bld) [#/Vol] 0.04 10*3/uL Normal <0.11 [facility] Comment on above: Order Comment: Speci men Type: BLOOD SPECIMEN Ordering Facility: [facility] Address: [address] [place] [address] Performed By: #### 5 7021-8 #### [facility] CLIA [id number] [address] [place] [address] [place] Basophils/100 WBC (Bld) 0.8 % Normal [facility] Comment on above: Order Comment: Speci men Type: BLOOD SPECIMEN Ordering Facility: [facility] Address: [address] [place] [address] Performed By: #### 5 7021-8 #### [facility] CLIA [id number] [address] [place] [address] [place] Differential cell count method Nom (Bld) Auto Normal [facility] Comment on above: Order Comment: Speci men Type: BLOOD SPECIMEN Ordering Facility: [facility] Address: [address] [place] [address] Performed By: #### 5 7021-8 #### [facility] CLIA [id number] [address] [place] [address] [place] Eosinophils (Bld) [#/Vol] 0.17 10*3/uL Normal <0.46 [facility] Comment on above: Order Comment: Speci men Type: BLOOD SPECIMEN Ordering Facility: [facility] Address: [address] [place] [address] Performed By: #### 5 7021-8 #### [facility] CLIA [id number] [address] [place] [address] [place] Eosinophils/100 WBC (Bld) 3.3 % Normal [facility] Comment on above: Order Comment: Speci men Type: BLOOD SPECIMEN Ordering Facility: [facility] Address: [address] [place] [address] Performed By: #### 5 7021-8 #### [facility] CLIA [id number] [address] [place] [address] [place] Erythrocyte distribution width (RBC) [Ratio] 11.9 % Normal 11.5-15.0 [facility] Comment on above: Order Comment: Speci men Type: BLOOD SPECIMEN Ordering Facility: [facility] Address: [address] [place] [address] Performed By: #### 5 7021-8 #### [facility] CLIA [id number] [address] [place] [address] [place] Hematocrit (Bld) [Volume fraction] 42.9 % Normal 36.0-46.0 [facility] Comment on above: Order Comment: Speci men Type: BLOOD SPECIMEN Ordering Facility: [facility] Address: [address] [place] [address] Performed By: #### 5 7021-8 #### [facility] CLIA [id number] [address] [place] [address] [place] Hemoglobin (Bld) [Mass/Vol] 13.8 g/dL Normal 11.5-15.5 [facility] Comment on above: Order Comment: Speci men Type: BLOOD SPECIMEN Ordering Facility: [facility] Address: [address] [place] [address] Performed By: #### 5 7021-8 #### [facility] CLIA [id number] [address] [place] [address] [place] Immature granulocytes (Bld) [#/Vol] 10*3/uL Normal <0.10 [facility] Comment on above: Order Comment: Speci men Type: BLOOD SPECIMEN Ordering Facility: [facility] Address: [address] [place] [address] Performed By: #### 5 7021-8 #### [facility] CLIA [id number] [address] [place] [address] [place] Immature granulocytes/100 WBC (Bld) 0.4 % Normal [facility] Comment on above: Order Comment: Speci men Type: BLOOD SPECIMEN Ordering Facility: [facility] Address: [address] [place] [address] Performed By: #### 5 7021-8 #### [facility] CLIA [id number] [address] [place] [address] [place] Lymphocytes (Bld) [#/Vol] 1.88 10*3/uL Normal 1.00-4.00 [facility] Comment on above: Order Comment: Speci men Type: BLOOD SPECIMEN Ordering Facility: [facility] Address: [address] [place] [address] Performed By: #### 5 7021-8 #### [facility] CLIA [id number] [address] [place] [address] [place] Lymphocytes/100 WBC (Bld) 36.9 % Normal [facility] Comment on above: Order Comment: Speci men Type: BLOOD SPECIMEN Ordering Facility: [facility] Address: [address] [place] [address] Performed By: #### 5 7021-8 #### [facility] CLIA [id number] [address] [place] [address] STATES [facility] MCH (RBC) [Entitic mass] 28.9 pg Normal 26.0-34.0 [facility] Comment on above: Order Comment: Speci men Type: BLOOD SPECIMEN Ordering Facility: [facility] Address: [address] [place] [address] Performed By: #### 5 7021-8 #### [facility] CLIA [id number] [address] [place] [address] [place] MCHC (RBC) [Mass/Vol] 32.2 g/dL Normal 30.5-36.0 [facility] Comment on above: Order Comment: Speci men Type: BLOOD SPECIMEN Ordering Facility: [facility] Address: [address] [place] [address] Performed By: #### 5 7021-8 #### [facility] CLIA [id number] [address] [place] [address] [place] MCV (RBC) [Entitic vol] 89.9 fL Normal 80.0-100.0 [facility] Comment on above: Order Comment: Speci men Type: BLOOD SPECIMEN Ordering Facility: [facility] Address: [address] [place] [address] Performed By: #### 5 7021-8 #### [facility] CLIA [id number] [address] [place] [address] [place] Monocytes (Bld) [#/Vol] 0.29 10*3/uL Normal <0.87 [facility] Comment on above: Order Comment: Speci men Type: BLOOD SPECIMEN Ordering Facility: [facility] Address: [address] [place] [address] Performed By: #### 5 7021-8 #### [facility] CLIA [id number] [address] [place] [address] [place] Monocytes/100 WBC (Bld) 5.7 % Normal [facility] Comment on above: Order Comment: Speci men Type: BLOOD SPECIMEN Ordering Facility: [facility] Address: [address] [place] [address] Performed By: #### 5 7021-8 #### [facility] CLIA [id number] [address] [place] [address] [place] Neutrophils (Bld) [#/Vol] 2.69 10*3/uL Normal 1.45-7.50 [facility] Comment on above: Order Comment: Speci men Type: BLOOD SPECIMEN Ordering Facility: [facility] Address: [address] [place] [address] Performed By: #### 5 7021-8 #### [facility] CLIA [id number] [address] [place] [address] [place] Neutrophils/100 WBC (Bld) 52.9 % Normal [facility] Comment on above: Order Comment: Speci men Type: BLOOD SPECIMEN Ordering Facility: [facility] Address: [address] [place] [address] Performed By: #### 5 7021-8 #### [facility] CLIA [id number] [address] [place] [address] [place] Nucleated RBC (Bld) [#/Vol] 10*3/uL Normal <0.01 [facility] Comment on above: Order Comment: Speci men Type: BLOOD SPECIMEN Ordering Facility: [facility] Address: [address] [place] [address] Performed By: #### 5 7021-8 #### [facility] CLIA [id number] [address] [place] [address] [place] Nucleated RBC/100 WBC (Bld) [Ratio] 0.0 /100 WBC Normal [facility] Comment on above: Order Comment: Speci men Type: BLOOD SPECIMEN Ordering Facility: [facility] Address: [address] [place] [address] Performed By: #### 5 7021-8 #### [facility] CLIA [id number] [address] [place] [address] [place] Platelet mean volume (Bld) [Entitic vol] 10.5 fL Normal 9.0-12.7 [facility] Comment on above: Order Comment: Speci men Type: BLOOD SPECIMEN Ordering Facility: [facility] Address: [address] [place] [address] Performed By: #### 5 7021-8 #### [facility] CLIA [id number] [address] [place] [address] [place] Platelets (Bld) [#/Vol] 205 10*3/uL Normal 150-400 [facility] Comment on above: Order Comment: Speci men Type: BLOOD SPECIMEN Ordering Facility: [facility] Address: [address] [place] [address] Performed By: #### 5 7021-8 #### [facility] CLIA [id number] [address] [place] [address] [place] RBC (Bld) [#/Vol] 4.77 10*6/uL Normal 3.90-5.20 [facility] Comment on above: Order Comment: Speci men Type: BLOOD SPECIMEN Ordering Facility: [facility] Address: [address] [place] [address] Performed By: #### 5 7021-8 #### [facility] CLIA [id number] [address] [place] [address] [place] WBC (Bld) [#/Vol] 5.09 10*3/uL Normal 3.70-11.00 [facility] Comment on above: Order Comment: Speci men Type: BLOOD SPECIMEN Ordering Facility: [facility] Address: [address] [place] [address] Performed By: #### 5 7021-8 #### [facility] CLIA [id number] [address] [place] [address] [place] CNOVon 12-18-2024 CNOV Office Visit (UROLST ) SID LEZAMA ([id number]) 1975 F Date Time Provider Department 12/18/24 11:00 AM SAMY BARRAGAN UROLST During your visit today, we recorded the following information about you: Samy Barragan PA-C 12/19/2024 4:28 PM Signed UROLOGY NOTE Chief complaint: kidney stones Sid Lezama is a 48 year old female who presents today for kidney stone management and prevention counseling. Interval hx May 15, 2024 Patient presented to ED on 05/06/24 due to left flank pain consistent with previous kidney stone pain. CT from earlier ED visit in January showed L renal stone, so treated as migrating stone. Finished the prescribed Flomax. Crohn's and ileostomy. Does not take calcium. Pt currently: no fever, no chills, no nausea, no vomiting, no dysuria, no gross hematuria, no renal colic - New US ordered to assess for current stone(s) burden / passage - Patient is interested in 24-hour urine collection and dietary analysis for stone prevention. Litholink kit to be sent to and completed by patient. - Metabolic lab work ordered to assess underlying stone and/or hypercalcinuria etiologies. RTC in 1.5 months w/ new LL, labs, and US. Interval hx July 17, 2024 Patient returns to clinic having completed Litholink and unremarkable metabolic lab work. She presented to the ED on 06/02/24 due to passing a left distal ureteral stone (believes she passed it that night), with no pain since then. Notes that her chiropractor gave her a tincture to dissolve kidney stones as well. - Reviewed overall unremarkable metabolic lab work - Reviewed Litholink 24-hour urine collection results. Emphasis on increasing fluid (water!) intake, increasing dietary citrus, and decreasing/monitoring high oxalate foods and pair with calcium rich foods. - Discussed potassium citrate 10mEq BID as possible treatment option; she will confer with her holistic provider. - New US in about 1 year to reassess Interval hx December 18, 2024 Patient returns to clinic having recently passed a ureteral stone on the right side, which nearly needed a ureteroscopy upon ER on 12/11/24. Was taking Arginex stone dissolver. There is no height or weight on file to calculate BMI. 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 Lumbago 01/10/2007 Myalgia and myositis, unspecified Pain management Dr Stern Nonalcoholic fatty liver disease 08/24/2007 Other and unspecified hyperlipidemia 01/10/2007 PMH - PAST MEDICAL HISTORY OF Cx scarred to post vag wall/difficult exam Pneumonia, organism unspecified(486) 01/10/2007 Regional enteritis of large intestine (HCC) 08/07/2006 Retention of urine, unspecified 01/01/2007 Rheumatoid arthritis(714.0) Dr. Mc, [facility] Type II or unspecified type diabetes mellitus without mention of complication, not stated as uncontrolled Ureterolithiasis 07/18/2019 PAST SURGICAL HISTORY Procedure Laterality Date ADENOIDECTOMY PRIMARY Adenoidectomy ARTHROSCOPY KNEE DIAGNOSTIC W/WO SYNOVIAL BX SPX 1989 Arthroscopy, knee, left [facility] INCL FLUOR GDNCE DX W/CELL WASHG SPX 01/2007 Bronchoscopy EGD 05/02/2023 EPIDURAL 2011 multiple ones done by Dr. Beckett ILEOSCOPY 05/02/2023 PAST SURGICAL HISTORY OF 06/2000 ILEOSTOMY/COLECTOMY PAST SURGICAL HISTORY OF 1993 CRYOCAUTERY/ MILD DYSPLASIA PAST SURGICAL HISTORY OF 03/2006 Abdominal abscess with anal fistula PRCTECT COMPL W/STOT/TOT COLCT W/VENEER JOINER BXS 12/05/2006 AP endoanal proctectomy SHOULDER ARTHROSCOPY/SURGERY Left 05/06/2020 Rotator cuff debridement, subacromial decompression/arthropla sty TONSILLECTOMY PRIMARY/SECONDARY Tonsillectomy Family History Problem Relation Age of Onset Alcohol/Drug Mother Hypertension Mother COPD other (vascular disease) Mother other (sleep apnea) Mother other (heart murmur) Mother Alcohol/Drug Father Cancer Father liver Asthma Brother Hypertension Daughter Diabetes Maternal Grandmother Stroke Maternal Grandmother Heart Maternal Grandmother Emphysema Paternal Grandmother Diabetes Paternal Grandfather Macular Degen Paternal Grandfather Anesthesia Problems No Family History Social History Tobacco Use Smoking status: Former Current packs/day: 0.00 Average packs/day: 1 pack/day for 16.0 years (16.0 ttl pk-yrs) Types: Cigarettes Start date: 12/04/1990 Quit date: 12/04/2006 Years since quittin.0 Smokeless tobacco: Never Vaping Use Vaping status: Never Used (more content not included)... Normal [facility] CREATININE BLDon 12-18-2024 Creatinine [Mass/Vol] 0.60 mg/dL Normal 0.58-0.96 [facility] Comment on above: Order Comment: Joelle argueta Type: BLOOD SPECIMEN Ordering Facility: [facility] Address: [address] [place] [address] Performed By: #### 1 742-6, 1920-06, 1751-05, CRET1 #### [facility] CLIA [id number] [address] [place] [address] [place] Creatinine and Glomerular filtration rate.predicted panel (S/P/Bld) 110 mL/min/1.73m??? Normal >=60 [facility] Comment on above: Order Comment: Joelle argueta Type: BLOOD SPECIMEN Ordering Facility: [facility] Address: [address] [place] [address] Result Comment: Lena mated Glomerular Filtration Rate (eGFR) is calculated using the 2020 CKD-EPI creatinine equation. This equation utilizes serum creatinine, sex, and age as parameters. The creatinine assay has traceable calibration to isotope dilution-mass spectrometry. Refer to KDIGO guidelines for clinical interpretation. In patients with unstable renal function, e.g. those with acute kidney injury, the eGFR may not accurately reflect actual GFR. Performed By: #### 1 742-6, 1920-06, 1751-05, CRET1 #### [facility] CLIA [id number] [address] [place] [address] [place] HbA1c (Bld)on 12-18-2024 Average glucose Estimated from glycated hemoglobin (Bld) [Mass/Vol] 194 mg/dL Normal [facility] Comment on above: Order Comment: Joelle argueta Type: BLOOD SPECIMENOrdering Facility: [facility] Address: [address] [place] [address] Result Comment: eAG: (Estimated average glucose) is a calculated value from HgbA1c and is printing sales representative of the average blood glucose level in the last 2-3 month period. Performed By: #### 5 5454-3 ####[facility] [id number] [address] [place] [facility] HbA1c (Bld) [Mass fraction] 8.4 % High 4.3-5.6 [facility] Comment on above: Order Comment: Joelle argueta Type: BLOOD SPECIMENOrdering Facility: [facility] Address: [address] [place] [address] Result Comment: Amer ican Diabetes Association guidelines indicate that patients with HgbA1c in the range 5.7-6.4% are at increased risk for development of diabetes, and intervention by lifestyle modification may be beneficial. HgbA1c greater or equal to 6.5% is considered diagnostic of diabetes. Performed By: #### 5 5454-3 ####[facility] [id number] [address] [place] Iron and Iron binding capaci ty panelon 12-18-2024 Iron [Mass/Vol] 80 ug/dL Normal 41-186 [facility] Comment on above: Order Comment: Joelle argueta Type: BLOOD SPECIMEN Ordering Facility: [facility] Address: [address] [place] [address] Performed By: #### 2 4331-1 #### [facility] CLIA [id number] [address] [place] [address] [place] [facility] CLIA [id number] [address] [place] [address] [place] #### 06017-7 #### [facility] CLIA [id number] [address] [place] [address] [place] Iron binding capacity [Mass/Vol] 274 ug/dL Normal 232-386 [facility] Comment on above: Order Comment: Speci men Type: BLOOD SPECIMEN Ordering Facility: [facility] Address: [address] [place] [address] Performed By: #### 2 4331-1 #### [facility] CLIA [id number] [address] [place] [address] [place] [facility] CLIA [id number] [address] [place] [address] [place] #### 85622-6 #### [facility] CLIA [id number] [address] [place] [address] [place] Iron/TIBC [Molar ratio] 29.2 % Normal 15.0-57.0 [facility] Comment on above: Order Comment: Speci men Type: BLOOD SPECIMEN Ordering Facility: [facility] Address: [address] [place] [address] Performed By: #### 2 4331-1 #### [facility] CLIA [id number] [address] [place] [address] [place] [facility] CLIA [id number] [place] [address] [place] #### 39279-3 #### [facility] CLIA [id number] [address] [place] [address] [place] Lipid 1996 panelon 5 Cholesterol [Mass/Vol] 223 mg/dL High <200 [facility] Comment on above: Order Comment: Speci men Type: BLOOD SPECIMENOrdering Facility: [facility] Address: [address] [place] [address] Result Comment: <200 mg/dL, Desirable 200-239 mg/dL, Borderline high >239 mg/dL, High Performed By: #### 2 4331-1 ####[facility] [id number] [address] LABCLIA [id number] [place] [address] [place]#### 07116-7 ####[facility] [id number] [place] [address] [place] Cholesterol in HDL [Mass/Vol] 56 mg/dL Normal >39 [facility] Comment on above: Order Comment: Speci men Type: BLOOD SPECIMENOrdering Facility: [facility] Address: [address] [place] [address] Result Comment: 40-5 9 mg/dL, Acceptable >59 mg/dL, High: Negative risk factor for coronary heart disease <40 mg/dL, Low: Positive risk factor for coronary heart disease Performed By: #### 2 4331-1 ####[facility] [id number] [address] LABCLIA [id number] [place] [address] [place]#### 04912-7 ####[facility] [id number] [place] [address] [place] Cholesterol in LDL [Mass/Vol] 140 mg/dL High <100 [facility] Comment on above: Order Comment: Speci men Type: BLOOD SPECIMENOrdering Facility: [facility] Address: [address] [place] [address] Result Comment: <100 mg/dL, Optimal 100-129 mg/dL, Near optimal/above optimal 130-159 mg/dL, Borderline high 160-189 mg/dL, High >189 mg/dL, Very high Secondary prevention optimal LDL Cholesterol levels are recommended to be < 70 mg/dL Performed By: #### 2 4331-1 ####[facility] [id number] [address] LABCLIA [id number] [place] [address] [place]#### 44075-3 ####[facility] [id number] [address] Cholesterol in LDL/Cholesterol in HDL [Mass ratio] 2.50 {ratio} Normal <2.54 [facility] Comment on above: Order Comment: Speci men Type: BLOOD SPECIMENOrdering Facility: [facility] Address: [address] [place] [address] Result Comment: Refe rence: 1. National Cholesterol Education Program ATP III Guideline At-A-Glance Quick Desk Reference: National Heart, Lung, and Blood Amasa. National Institutes of Health. 2001: NIH Publication No. 01-3305. 2. An International Atherosclerosis Society position paper: global recommendations for the management of dyslipidemia: executive summary, Atherosclerosis. 2014: 232(2):410-413. Performed By: #### 2 4331-1 ####[facility] [id number] [address] LABCLIA [id number] [place] [address] [place]#### 13724-8 ####[facility] [id number] [place] [address] [place] Cholesterol in VLDL [Mass/Vol] 27 mg/dL Normal <30 [facility] Comment on above: Order Comment: Speci men Type: BLOOD SPECIMENOrdering Facility: [facility] Address: [address] [place] [address] Performed By: #### 2 4331-1 ####[facility]IA [id number] [place] [id number] [facility]IA [id number] [place] [address] [place]#### 89250-0 ####[facility] [id number] [place] [id number] [place] Cholesterol non HDL [Mass/Vol] 167 mg/dL High <130 [facility] Comment on above: Order Comment: Speci men Type: BLOOD SPECIMENOrdering Facility: [facility] Address: [address] [place], [place] [address] Result Comment: <130 mg/dL, Optimal 130-159 mg/dL, Near optimal/above optimal 160-189 mg/dL, Borderline high 190-219 mg/dL, High >219 mg/dL, Very high Secondary prevention optimal non HDL Cholesterol levels are recommended to be <100 mg/dL Performed By: #### 2 4331-1 ####[facility] [id number] [address] LABCLIA [id number] [place] [address] [place]#### 23234-4 ####[facility] [id number] [place] [address] [place] Cholesterol.total/Chol esterol in HDL [Mass ratio] 3.98 {ratio} Normal <5.10 [facility] Comment on above: Order Comment: Speci men Type: BLOOD SPECIMENOrdering Facility: [facility] Address: [address] [place] [id number] Performed By: #### 2 4331-1 ####[facility] [id number] [place] [id number] [facility]IA [id number] [place] [address] [place]#### 45864-0 ####[facility]IA [id number] [place] [address] [place] FASTING TIME 12 hrs Normal [facility] Comment on above: Order Comment: Speci men Type: BLOOD SPECIMENOrdering Facility: [facility] Address: [address] [place], [place] [address] Performed By: #### 2 4331-1 ####[facility]CLIA [id number] [address] LABCLIA [id number] [place] [address] [place]#### 00678-0 ####[facility]CLIA [id number] [place] [address] [place] Triglyceride [Mass/Vol] 133 mg/dL Normal <150 [facility] Comment on above: Order Comment: Speci men Type: BLOOD SPECIMENOrdering Facility: [facility] Address: [address] [place], [place] [id number] Result Comment: <150 mg/dL, Normal 150-199 mg/dL, Borderline high 200-499 mg/dL, High >499 mg/dL, Very high Performed By: #### 2 4331-1 ####[facility]IA [id number] [address] LABCLIA [id number] [place] [address] [place]#### 53483-1 ####[facility]IA [id number] [place] [address] [place] UA DIP, URINE (POC)on 2024 BILIRUBIN UA (POCT) Negative Negative [facility] CLARITY UA (POCT) Clear [facility] COLOR UA (POCT) Yellow [facility] GLUCOSE UA (POCT) Negative Negative mg/dL [facility] Hemoglobin Ql (U) Trace-intact Abnormal Negative [facility] Interpretation and review of laboratory results Abnormal [facility] KETONE UA (POCT) Negative Negative mg/dL [facility] LEUKOCYTES UA (POCT) Negative Negative [facility] NITRITE UA (POCT) Negative Negative [facility] PH UA (POCT) 5.5 4.5 - 8.0 [facility] Protein Ql (U) Negative Negative mg/dL [facility] SPECIFIC GRAVITY UA (POCT) 1.025 1.005 - 1.030 [facility] UROBILINOGEN UA (POCT) 0.2 Normal E.U./d L [facility] Location:[facility], [address] [place], [place], [address] [place] [address] POINT OF CARE [facility] Basic metabolic 2000 panelon 12-12-2024 Anion gap [Moles/Vol] 10 mmol/L Normal 8-15 [facility] Comment on above: Order Comment: Speci men Type: URINE SPECIMEN Ordering Facility: [facility] Address: [address] [place] [address] Performed By: #### 2 106-3 #### [facility] CLIA [id number] [address] [place] [address] [place] Calcium [Mass/Vol] 9.6 mg/dL Normal 8.5-10.2 [facility] Comment on above: Order Comment: Speci men Type: URINE SPECIMEN Ordering Facility: [facility] Address: [address] [place] [address] Performed By: #### 2 106-3 #### [facility] CLIA [id number] [address] [place] [address] [place] Chloride [Moles/Vol] 107 mmol/L Normal 98-107 [facility] Comment on above: Order Comment: Speci men Type: URINE SPECIMEN Ordering Facility: [facility] Address: [address] [place] [address] Performed By: #### 2 106-3 #### [facility] CLIA [id number] [address] [place] [address] [place] CO2 [Moles/Vol] 24 mmol/L Normal 22-30 [facility] Comment on above: Order Comment: Speci men Type: URINE SPECIMEN Ordering Facility: [facility] Address: [address] [place] [address] Performed By: #### 2 106-3 #### [facility] CLIA [id number] [address] Creatinine [Mass/Vol] 0.64 mg/dL Normal 0.58-0.96 [facility] Comment on above: Order Comment: Speci men Type: URINE SPECIMEN Ordering Facility: [facility] Address: [address] [place] [address] Performed By: #### 2 106-3 #### [facility] CLIA [id number] [address] Creatinine and Glomerular filtration rate.predicted panel (S/P/Bld) 108 mL/min/1.73m??? Normal >=60 [facility] Comment on above: Order Comment: Speci men Type: URINE SPECIMEN Ordering Facility: [facility] Address: [address] [place] [address] Result Comment: Lena mated Glomerular Filtration Rate (eGFR) is calculated using the 2020 CKD-EPI creatinine equation. This equation utilizes serum creatinine, sex, and age as parameters. The creatinine assay has traceable calibration to isotope dilution-mass spectrometry. Refer to KDIGO guidelines for clinical interpretation. In patients with unstable renal function, e.g. those with acute kidney injury, the eGFR may not accurately reflect actual GFR. Performed By: #### 2 106-3 #### [facility] CLIA [id number] [address] Glucose [Mass/Vol] 191 mg/dL High 74-99 [facility] Comment on above: Order Comment: Speci men Type: URINE SPECIMEN Ordering Facility: [facility] Address: [address] [place] [address] Result Comment: The [place] Diabetes Association (ADA) provides guidance for cutoff values for fasting glucose and random glucose. The ADA defines fasting as no caloric intake for at least 8 hours. Fasting plasma glucose results between 100 to 125 [...] Standards of Medical Care in Diabetes 2016, [place] Diabetes Association. Diabetes Care. 2016.39(Suppl 1). Performed By: #### 2 106-3 #### [facility] CLIA [id number] [address] Potassium [Moles/Vol] 3.8 mmol/L Normal 3.7-5.1 [facility] Comment on above: Order Comment: Speci men Type: URINE SPECIMEN Ordering Facility: [facility] Address: [address] [place] [address] Performed By: #### 2 106-3 #### [facility] CLIA [id number] [address] Sodium [Moles/Vol] 141 mmol/L Normal 136-144 [facility] Comment on above: Order Comment: Speci men Type: URINE SPECIMEN Ordering Facility: [facility] Address: [address] [place] [address] Performed By: #### 2 106-3 #### [facility] CLIA [id number] [address] Urea nitrogen [Mass/Vol] 8 mg/dL Normal 7-21 [facility] Comment on above: Order Comment: Speci men Type: URINE SPECIMEN Ordering Facility: [facility] Address: [address] [place] [address] Performed By: #### 2 106-3 #### [facility] CLIA [id number] [address] CBC panel Auto (Bld)on 12-12 Erythrocyte distribution width (RBC) [Ratio] 11.9 % Normal 11.5-15.0 [facility] Comment on above: Order Comment: Speci men Type: URINE SPECIMEN Ordering Facility: [facility] Address: [address] [place] [address] Performed By: #### 2 106-3 #### [facility] CLIA [id number] [address] Hematocrit (Bld) [Volume fraction] 39.6 % Normal 36.0-46.0 [facility] Comment on above: Order Comment: Speci men Type: URINE SPECIMEN Ordering Facility: [facility] Address: [address] [place] [address] Performed By: #### 2 106-3 #### [facility] CLIA [id number] [address] [facility] Hemoglobin (Bld) [Mass/Vol] 13.3 g/dL Normal 11.5-15.5 [facility] Comment on above: Order Comment: Speci men Type: URINE SPECIMEN Ordering Facility: [facility] Address: [address] [place] [address] Performed By: #### 2 106-3 #### [facility] CLIA [id number] [address] MCH (RBC) [Entitic mass] 29.2 pg Normal 26.0-34.0 [facility] Comment on above: Order Comment: Speci men Type: URINE SPECIMEN Ordering Facility: [facility] Address: [address] [place] [address] Performed By: #### 2 106-3 #### [facility] CLIA [id number] [address] MCHC (RBC) [Mass/Vol] 33.6 g/dL Normal 30.5-36.0 [facility] Comment on above: Order Comment: Speci men Type: URINE SPECIMEN Ordering Facility: [facility] Address: [address] [place] [address] Performed By: #### 2 106-3 #### [facility] CLIA [id number] [address] [facility] MCV (RBC) [Entitic vol] 87.0 fL Normal 80.0-100.0 [facility] Comment on above: Order Comment: Speci men Type: URINE SPECIMEN Ordering Facility: [facility] Address: [address] [place] [address] Performed By: #### 2 106-3 #### [facility] CLIA [id number] [address] [place] Nucleated RBC (Bld) [#/Vol] 10*3/uL Normal <0.01 [facility] Comment on above: Order Comment: Speci men Type: URINE SPECIMEN Ordering Facility: [facility] Address: [address] [place] [address] Performed By: #### 2 106-3 #### [facility] CLIA [id number] [address] [place] Platelet mean volume (Bld) [Entitic vol] 10.6 fL Normal 9.0-12.7 [facility] Comment on above: Order Comment: Speci men Type: URINE SPECIMEN Ordering Facility: [facility] Address: [address] [place] [address] Performed By: #### 2 106-3 #### [facility] CLIA [id number] [address] [place] Platelets (Bld) [#/Vol] 206 10*3/uL Normal 150-400 [facility] Comment on above: Order Comment: Speci men Type: URINE SPECIMEN Ordering Facility: [facility] Address: [address] [place] [address] Performed By: #### 2 106-3 #### [facility] CLIA [id number] [address] [place] RBC (Bld) [#/Vol] 4.55 10*6/uL Normal 3.90-5.20 [facility] Comment on above: Order Comment: Speci men Type: URINE SPECIMEN Ordering Facility: [facility] Address: [address] [place] [address] Performed By: #### 2 106-3 #### [facility] CLIA [id number] 1 [place] [address] [place] WBC (Bld) [#/Vol] 9.98 10*3/uL Normal 3.70-11.00 [facility] Comment on above: Order Comment: Speci men Type: URINE SPECIMEN Ordering Facility: [facility] Address: [address] [place] [address] Performed By: #### 2 106-3 #### [facility] CLIA [id number] 1 [place] [address] [facility] CNDSon 12-12-2024 CNDS HNO ID: [id number] Author: SHAWN NAVA MD Service: Urology Author Type: Resident Type: Discharge Summary Filed: 12/12/2024 12:00 Note Text: Attestation signed by Shawn Nava MD at 12/12/2024 12:00 PM Urology Attending Attestation: I saw and evaluated the patient. Discussed with the resident and agree with resident's findings and plan as documented in the resident's note. Shawn Nava MD [facility] Urological AND Kidney [facility] UROLOGY DISCHARGE SUMMARY PATIENT NAME: Sid Lezama ADMISSION DATE: 12/11/2024 DISCHARGE DATE: 12/12/2024 Attending Physician: Jonathan Mosley MD Reason for Hospitalization: Principal Problem: Ureteral stone with hydronephrosis (POA: Yes) Active Problems: Kidney stone (POA: Yes) Resolved Problems: * No resolved hospital problems. * Operations During Hospitalization: none Hospital Course: Patient was admitted for R. Flank pain 2/2 1mm UVJ calculus. Has had complete resolution of symptoms. Elects to be discharged home. Labs and Procedures Pending at Discharge: No pending results. Consulting Teams During Hospitalization: none Patient Condition @ Discharge: Stable Discharge Disposition: Home with Self Care Information Provided to Patient: See discharge instructions Discharge Medications: Medication List CONTINUE taking these medications LELA ORAL Ascorbic Acid 500 mg Chew blood sugar diagnostic test strip Commonly known as: ACCU-CHEK GUIDE TEST STRIPS USE WITH BLOOD GLUCOSE TEST THREE TIMES A DAY. Blood-Glucose Meter Commonly known as: ACCU-CHEK DIANNE Test blood sugar(s) 2 times daily. Dx: Type 2 DM - Controlled E11.9 Insulin: No, Accu-check brand covered by insurance clobetasol 0.05 % ointment Commonly known as: TEMOVATE COMPOUNDED PRESCRIPTION 1. V44.2 Ileostomy status ([facility]) (primary diagnosis) 2. 555.1 Regional enteritis of large intestine ([facility]) Ileostomy Supplies. 1. Pouches, 2. Planges, 3. Felipe seals, 4. Stoma adhesive, 5. Stoma powder, 6. Skin preps, 7. Adhesive remover wipes. Dispense 1 year supplies. ELDERBERRY ORAL FREESTYLE GIANFRANCO 3 SENSOR Matilda Generic drug: Blood-Glucose Sensor Apply new sensor every fourteen (14) days to upper arm. E11.9 GVOKE PFS 1-PACK SYRINGE 1 mg/0.2 mL Syrg Generic drug: glucagon INJECT 0.2 ML UNDER THE SKIN NEEDED. Insulin Lynch (Disposable) 32 gauge x 5/32 Commonly known as: DROPLET PEN NEEDLE USE TO INJECT ONE TIME DAILY Lancets Commonly known as: ACCU-CHEK FASTCLIX LANCET DRUM Use as instructed to check blood glucose up to 2 times daily. E11.9 Lancing Device with Lancets ACCU CHEK FASTCLIX LANCET *DEVICE* use to check blood glucose up to 2 times per day as instructed. E11.9 LANTUS SOLOSTAR U-100 INSULIN 100 unit/mL (3 mL) Generic drug: insulin glargine INJECT 20 UNITS UNDER THE SKIN EVERY evening MIRENA 21 mcg/24hr (up to 8 yrs) 52 mg IUD Generic drug: levonorgestrel 1 Each by INTRAUTERINE route as directed. oxyCODONE-acetaminophen 5-325 mg tablet Commonly known as: PERCOCET pantoprazole DR 20 mg tablet Commonly known as: PROTONIX Take 1 tablet by mouth daily before breakfast. Take on empty stomach, 1/2 hr before meal. predniSONE 10 mg tablet Commonly known as: DELTASONE Take in the morning with food. Take 2 tabs daily x 3 days, then 1 tab daily x 3 days, then stop. GUMMY ORAL semaglutide 0.25 mg or 0.5 mg (2 mg/3 mL) pen Commonly known as: OZEMPIC Inject 0.5 mg subcutaneously one time a week. STELARA 45 mg/0.5 mL syringe Generic drug: ustekinumab Inject 45 mg (1 syringe) subcutaneously every 12 weeks tiZANidine 4 mg tablet Commonly known as: ZANAFLEX ASK your doctor about these medications FREESTYLE GIANFRANCO 3 READER Misc Generic drug: Blood-Glucose Meter,Continuous Use to check blood sugar at least four (4) times daily. Future Appointments: Follow Up with home Urologist in [facility]. TIME OF CARE: Discharge Management: I personally spent less than 30 minutes involved in the discharge management of this patient. SIGNATURE: Samson Magallanes MD DATE: December 12, 2024 TIME: 7:57 AM Normal [facility] HCG Preg Ur Qlon 12-12-2024 HCG ( test) Ql (U) Negative Normal Negative [facility] Comment on above: Order Comment: Speci men Type: URINE SPECIMEN Ordering Facility: [facility] Address: [address] [place] [address] Result Comment: This test is intended to aid in the early detection of . Very dilute urine samples, as indicated by a low specific gravity, may not contain printing sales representative levels of hCG. This test detects intact hCG only. This test does not reliably detect hCG degradation products, including free-beta subunit and beta-core fragment. Therefore, this test may show reduced reactivity in urine after 8 weeks gestation. A number of conditions other than , including trophoblastic disease and certain non-trophoblastic neoplasms cause elevated levels of hCG. As with any assay employing mouse antibodies, the possibility exists for interference by human anti-mouse antibodies (HAMA) in the specimen. The test provides a presumptive diagnosis for . Performed By: #### 2 106-3 #### [facility] CLIA [id number] [address] Bacteria Ur Culton Bacteria identified Cx Nom (U) CULTURE, URINE: No growth (<1,000 CFU/ml) Normal [facility] Comment on above: Performed By: #### 6 30-4 ####[facility] [id number] [address] [facility] CBC W Auto Differential pane l (Bld)on 12-11-2024 Basophils (Bld) [#/Vol] 0.04 10*3/uL Normal <0.11 [facility] Comment on above: Order Comment: Speci men Type: BLOOD SPECIMEN Ordering Facility: [facility] Address: [address] [place] [address] Performed By: #### 5 7021-8 #### [facility] CLIA [id number] [address] [facility] Basophils/100 WBC (Bld) 0.7 % Normal [facility] Comment on above: Order Comment: Speci men Type: BLOOD SPECIMEN Ordering Facility: [facility] Address: [address] [place] [address] Performed By: #### 5 7021-8 #### [facility] CLIA [id number] [address] Differential cell count method Nom (Bld) Auto Normal [facility] Comment on above: Order Comment: Speci men Type: BLOOD SPECIMEN Ordering Facility: [facility] Address: [address] [place] [address] Performed By: #### 5 7021-8 #### [facility] CLIA [id number] [address] [place] [address] [place] Eosinophils (Bld) [#/Vol] 0.10 10*3/uL Normal <0.46 [facility] Comment on above: Order Comment: Speci men Type: BLOOD SPECIMEN Ordering Facility: [facility] Address: [address] [place] [address] Performed By: #### 5 7021-8 #### [facility] CLIA [id number] [address] [place] [address] [place] Eosinophils/100 WBC (Bld) 1.7 % Normal [facility] Comment on above: Order Comment: Speci men Type: BLOOD SPECIMEN Ordering Facility: [facility] Address: [address] [place] [address] Performed By: #### 5 7021-8 #### [facility] CLIA [id number] [address] [place] [address] [place] Erythrocyte distribution width (RBC) [Ratio] 11.6 % Normal 11.5-15.0 [facility] Comment on above: Order Comment: Speci men Type: BLOOD SPECIMEN Ordering Facility: [facility] Address: [address] [place] [address] Performed By: #### 5 7021-8 #### [facility] CLIA [id number] [address] [place] Hematocrit (Bld) [Volume fraction] 46.3 % High 36.0-46.0 [facility] Comment on above: Order Comment: Speci men Type: BLOOD SPECIMEN Ordering Facility: [facility] Address: [address] [place] [address] Performed By: #### 5 7021-8 #### [facility] CLIA [id number] [address] [place] [address] [place] Hemoglobin (Bld) [Mass/Vol] 15.2 g/dL Normal 11.5-15.5 [facility] Comment on above: Order Comment: Speci men Type: BLOOD SPECIMEN Ordering Facility: [facility] Address: [address] [place] [address] Performed By: #### 5 7021-8 #### [facility] CLIA [id number] [address] [place] [address] [place] Immature granulocytes (Bld) [#/Vol] 10*3/uL Normal <0.10 [facility] Comment on above: Order Comment: Speci men Type: BLOOD SPECIMEN Ordering Facility: [facility] Address: [address] [place] [address] Performed By: #### 5 7021-8 #### [facility] CLIA [id number] [address] [place] [address] [place] Immature granulocytes/100 WBC (Bld) 0.2 % Normal [facility] Comment on above: Order Comment: Speci men Type: BLOOD SPECIMEN Ordering Facility: [facility] Address: [address] [place] [address] Performed By: #### 5 7021-8 #### [facility] CLIA [id number] [address] [place] [id number] [place] Lymphocytes (Bld) [#/Vol] 2.66 10*3/uL Normal 1.00-4.00 [facility] Comment on above: Order Comment: Speci men Type: BLOOD SPECIMEN Ordering Facility: [facility] Address: [address] [place] [address] Performed By: #### 5 7021-8 #### [facility] CLIA [id number] [address] [place] Lymphocytes/100 WBC (Bld) 45.8 % Normal [facility] Comment on above: Order Comment: Speci men Type: BLOOD SPECIMEN Ordering Facility: [facility] Address: [address] [place] [address] Performed By: #### 5 7021-8 #### [facility] CLIA [id number] [address] [place] [address] [place] MCH (RBC) [Entitic mass] 28.9 pg Normal 26.0-34.0 [facility] Comment on above: Order Comment: Speci men Type: BLOOD SPECIMEN Ordering Facility: [facility] Address: [address] [place] [address] Performed By: #### 5 7021-8 #### [facility] CLIA [id number] [address] [place] [address] [place] MCHC (RBC) [Mass/Vol] 32.8 g/dL Normal 30.5-36.0 [facility] Comment on above: Order Comment: Speci men Type: BLOOD SPECIMEN Ordering Facility: [facility] Address: [address] [place] [address] Performed By: #### 5 7021-8 #### [facility] CLIA [id number] [address] [place] [address] [place] MCV (RBC) [Entitic vol] 88.0 fL Normal 80.0-100.0 [facility] Comment on above: Order Comment: Speci men Type: BLOOD SPECIMEN Ordering Facility: [facility] Address: [address] [place] [address] Performed By: #### 5 7021-8 #### [facility] CLIA [id number] [address] [place] [address] [place] Monocytes (Bld) [#/Vol] 0.36 10*3/uL Normal <0.87 [facility] Comment on above: Order Comment: Speci men Type: BLOOD SPECIMEN Ordering Facility: [facility] Address: [address] [place] [address] Performed By: #### 5 7021-8 #### [facility] CLIA [id number] [address] [place] [id number] [place] [address] [place] Monocytes/100 WBC (Bld) 6.2 % Normal [facility] Comment on above: Order Comment: Speci men Type: BLOOD SPECIMEN Ordering Facility: [facility] Address: [address] [place] [address] Performed By: #### 5 7021-8 #### [facility] CLIA [id number] [address] [place] [address] [place] Neutrophils (Bld) [#/Vol] 2.64 10*3/uL Normal 1.45-7.50 [facility] Comment on above: Order Comment: Speci men Type: BLOOD SPECIMEN Ordering Facility: [facility] Address: [address] [place] [address] Performed By: #### 5 7021-8 #### [facility] CLIA [id number] [address] [place] [address] [place] Neutrophils/100 WBC (Bld) 45.4 % Normal [facility] Comment on above: Order Comment: Speci men Type: BLOOD SPECIMEN Ordering Facility: [facility] Address: [address] [place] [address] Performed By: #### 5 7021-8 #### [facility] CLIA [id number] [address] [place] [address] [place] Nucleated RBC (Bld) [#/Vol] Normal [facility] Comment on above: Order Comment: Speci men Type: BLOOD SPECIMEN Ordering Facility: [facility] Address: [address] [place] [address] Performed By: #### 5 7021-8 #### [facility] CLIA [id number] [address] [place] [address] [place] Nucleated RBC/100 WBC (Bld) [Ratio] Normal [facility] Comment on above: Order Comment: Speci men Type: BLOOD SPECIMEN Ordering Facility: [facility] Address: [address] [place] [address] Performed By: #### 5 7021-8 #### [facility] CLIA [id number] [address] [place] [address] [place] Platelet mean volume (Bld) [Entitic vol] 10.3 fL Normal 9.0-12.7 [facility] Comment on above: Order Comment: Speci men Type: BLOOD SPECIMEN Ordering Facility: [facility] Address: [address] [place] [address] Performed By: #### 5 7021-8 #### [facility] CLIA [id number] [address] [place] [address] [place] Platelets (Bld) [#/Vol] 245 10*3/uL Normal 150-400 [facility] Comment on above: Order Comment: Speci men Type: BLOOD SPECIMEN Ordering Facility: [facility] Address: [address] [place] [address] Performed By: #### 5 7021-8 #### [facility] CLIA [id number] [address] [place] [address] [address] [facility] RBC (Bld) [#/Vol] 5.26 10*6/uL High 3.90-5.20 [facility] Comment on above: Order Comment: Speci men Type: BLOOD SPECIMEN Ordering Facility: [facility] Address: [address] [place] [address] Performed By: #### 5 7021-8 #### [facility] CLIA [id number] [address] [place], [place] [address] [facility] WBC (Bld) [#/Vol] 5.81 10*3/uL Normal 3.70-11.00 [facility] Comment on above: Order Comment: Speci men Type: BLOOD SPECIMEN Ordering Facility: [facility] Address: [address] [place] [address] Performed By: #### 5 7021-8 #### [facility] CLIA [id number] [address] [place], [place] [address] [facility] CT ABD/PEL WO IVCONon 2024 CT ABD/PEL WO IVCON * * *Final Report* * * DATE OF EXAM: Dec 11 2024 11:53AM [facility] 0531 - CT ABD/PEL WO IVCON / PROCEDURE REASON: Flank pain, kidney stone suspected * * * * Physician Interpretation * * * * EXAMINATION: CT ABDOMEN AND PELVIS WITHOUT IV CONTRAST CLINICAL HISTORY: Right flank pain TECHNIQUE: Non-IV contrast imaging of the abdomen and pelvis was performed using standard technique, scanning from just above the dome of the diaphragm to the symphysis pubis. Unenhanced imaging is limited for the evaluation of some intra-abdominal and pelvic pathology. MQ: CTAPWO_3 Contrast: IV: None : ml of CT Radiation dose: Integrated Dose-length product (DLP) for this visit = 484.85 mGy*cm. CT Dose Reduction Employed: Automated exposure control(AEC) and iterative recon COMPARISON: 06/02/2024. RESULT: Abdomen / Pelvis: Liver: Unremarkable. Biliary: The gallbladder is unremarkable. Spleen: No splenomegaly. Pancreas: Unremarkable. Adrenals: No mass. Kidneys: There is a 1 mm calculus at the right UVJ as seen on axial image 90. This causes moderate right-sided hydronephrosis and hydroureter without significant perinephric stranding. No other urinary tract calculi. No left-sided hydronephrosis. No renal mass. GI Tract: Status post colectomy with a right lower quadrant ileostomy, as seen previously. Tiny hiatal hernia. No small bowel dilatation. Lymph Nodes: No lymphadenopathy. Mesentery/peritoneum: No ascites. Retroperitoneum: No mass. Vasculature: Arterial atherosclerotic disease without aneurysm. Pelvis: The uterus is displaced posteriorly into the pelvis. There is an IUD in unaltered position. No obvious bladder mass. No adnexal mass. There is no free fluid within the pelvis. Bones/Soft Tissues: No acute abnormality. Lower thorax: Unremarkable. Localizer images: No additional findings. IMPRESSION: There is a 1 cm right UVJ calculus causing moderate obstruction. Profile Saw Operator: [facility] HOSPITALJeanine Transcribe Date/Time: Dec 11 2024 12:05P Dictated by : SHAWN ROBERTS MD This examination was interpreted and the report reviewed and electronically signed by: SHAWN ROBERTS MD on Dec 11 2024 12:13PM EST [id number] Normal [facility] Comprehensive metabolic 2000 panelon 12-11-2024 Albumin [Mass/Vol] 4.3 g/dL Normal 3.9-4.9 [facility] Comment on above: Order Comment: Joelle argueta Type: BLOOD SPECIMEN Ordering Facility: [facility] Address: [address] [place] [address] Performed By: #### 2 4323-8 #### [facility] CLIA [id number] [address] [place] [address] [place] ALP [Catalytic activity/Vol] 166 U/L High 34-123 [facility] Comment on above: Order Comment: Joelle argueta Type: BLOOD SPECIMEN Ordering Facility: [facility] Address: [address] [place] [address] Performed By: #### 2 4323-8 #### [facility] CLIA [id number] [address] [place] [address] [place] ALT With P-5'-P [Catalytic activity/Vol] 44 U/L High 7-38 [facility] Comment on above: Order Comment: Speci men Type: BLOOD SPECIMEN Ordering Facility: [facility] Address: [address] [place] [address] Performed By: #### 2 4323-8 #### [facility] CLIA [id number] [address] [place] [address] [place] Anion gap [Moles/Vol] 13 mmol/L Normal 8-15 [facility] Comment on above: Order Comment: Speci men Type: BLOOD SPECIMEN Ordering Facility: [facility] Address: [address] [place] [address] Performed By: #### 2 4323-8 #### [facility] CLIA [id number] [address] [place] [address] [place] AST With P-5'-P [Catalytic activity/Vol] 25 U/L Normal 13-35 [facility] Comment on above: Order Comment: Speci men Type: BLOOD SPECIMEN Ordering Facility: [facility] Address: [address] [place] [address] Performed By: #### 2 4323-8 #### [facility] CLIA [id number] [address] [place] [address] [place] Bilirubin [Mass/Vol] 0.5 mg/dL Normal 0.2-1.3 [facility] Comment on above: Order Comment: Speci men Type: BLOOD SPECIMEN Ordering Facility: [facility] Address: [address] [place] [address] Performed By: #### 2 4323-8 #### [facility] CLIA [id number] [address] [place] [address] [place] Calcium [Mass/Vol] 10.5 mg/dL High 8.5-10.2 [facility] Comment on above: Order Comment: Speci men Type: BLOOD SPECIMEN Ordering Facility: [facility] Address: [address] [place] [address] Performed By: #### 2 4323-8 #### [facility] CLIA [id number] [address] [place] [address] [place] Chloride [Moles/Vol] 101 mmol/L Normal 98-107 [facility] Comment on above: Order Comment: Speci men Type: BLOOD SPECIMEN Ordering Facility: [facility] Address: [address] [place] [address] Performed By: #### 2 4323-8 #### [facility] CLIA [id number] [address] [place] [address] [place] CO2 [Moles/Vol] 25 mmol/L Normal 22-30 [facility] Comment on above: Order Comment: Speci men Type: BLOOD SPECIMEN Ordering Facility: [facility] Address: [address] [place] [address] Performed By: #### 2 4323-8 #### [facility] CLIA [id number] [address] [place] [address] [place] Creatinine [Mass/Vol] 0.58 mg/dL Normal 0.58-0.96 [facility] Comment on above: Order Comment: Speci men Type: BLOOD SPECIMEN Ordering Facility: [facility] Address: [address] [place] [address] Performed By: #### 2 4323-8 #### [facility] CLIA [id number] [address] [place] [address] [facility] Creatinine and Glomerular filtration rate.predicted panel (S/P/Bld) 111 mL/min/1.73m??? Normal >=60 [facility] Comment on above: Order Comment: Speci men Type: BLOOD SPECIMEN Ordering Facility: [facility] Address: [address] [place] [address] Result Comment: Lena mated Glomerular Filtration Rate (eGFR) is calculated using the 2020 CKD-EPI creatinine equation. This equation utilizes serum creatinine, sex, and age as parameters. The creatinine assay has traceable calibration to isotope dilution-mass spectrometry. Refer to KDIGO guidelines for clinical interpretation. In patients with unstable renal function, e.g. those with acute kidney injury, the eGFR may not accurately reflect actual GFR. Performed By: #### 2 4323-8 #### [facility] CLIA [id number] [address] [place] [address] [place] Glucose [Mass/Vol] 273 mg/dL High 74-99 [facility] Comment on above: Order Comment: Joelle argueta Type: BLOOD SPECIMEN Ordering Facility: [facility] Address: [address] [place] [address] Result Comment: The [place] [employer] (ADA) provides guidance for cutoff values for fasting glucose and random glucose. The ADA defines fasting as no caloric intake for at least 8 hours. Fasting plasma glucose results between 100 to 125 [...] Standards of Medical Care in Diabetes 2016, [place] [employer]. Diabetes Care. 2016.39(Suppl 1). Performed By: #### 2 4323-8 #### [facility] CLIA [id number] [address] [place] [address] [place] Potassium [Moles/Vol] 3.9 mmol/L Normal 3.7-5.1 [facility] Comment on above: Order Comment: Joelle argueta Type: BLOOD SPECIMEN Ordering Facility: [facility] Address: [address] [place] [address] Performed By: #### 2 4323-8 #### [facility] CLIA [id number] [address] [place] [address] [place] Protein [Mass/Vol] 6.9 g/dL Normal 6.3-8.0 [facility] Comment on above: Order Comment: Joelle argueta Type: BLOOD SPECIMEN Ordering Facility: [facility] Address: [address] [place], [place] [address] Performed By: #### 2 4323-8 #### [facility] CLIA [id number] [address] [place] [address] [place] Sodium [Moles/Vol] 139 mmol/L Normal 136-144 [facility] Comment on above: Order Comment: Speci men Type: BLOOD SPECIMEN Ordering Facility: [facility] Address: [address] [place] [address] Performed By: #### 2 4323-8 #### [facility] CLIA [id number] [address] [place] [address] [place] Urea nitrogen [Mass/Vol] 10 mg/dL Normal 7-21 [facility] Comment on above: Order Comment: Speci men Type: BLOOD SPECIMEN Ordering Facility: [facility] Address: [address] [place] [address] Performed By: #### 2 4323-8 #### [facility] CLIA [id number] [address] [place] [address] [place] ED NOTEon 12-11-2024 ED NOTE HNO ID: [id number] Author: WARNER BANKS RN Service: Emergency Medicine Author Type: Registered Nurse Type: ED Notes Filed: 12/11/2024 21:05 Note Text: [facility] at bedside. Report given to transfer team. [facility] ED NOTE HNO ID: [id number] Author: WARNER BANKS RN Service: Emergency Medicine Author Type: Registered Nurse Type: ED Notes Filed: 12/11/2024 21:02 Note Text: Patient placed call light on indicating that her pain level is increasing. Upon entering patient room, patient sitting in semi-neri position, viewing at her phone and appearing no apparent distress. Patient stated that her pain is starting to ramp up again. Physician to be notified. [facility] ED NOTE HNO ID: [id number] Author: MARIA LUISA VILLARREAL RN Service: Emergency Medicine Author Type: Registered Nurse Type: ED Notes Filed: 12/11/2024 20:26 Note Text: [facility] notified of transport - ETA given 45min [facility] ED NOTE HNO ID: [id number] Author: WARNER BANKS RN Service: Emergency Medicine Author Type: Registered Nurse Type: ED Notes Filed: 12/11/2024 19:06 Note Text: Change of shift report received from Maria Luisa Javed RN. I assumed patient care at this time. [facility] ED NOTE HNO ID: [id number] Author: MARIA LUISA GREENE RN Service: ? Author Type: Registered Nurse Type: ED Notes Filed: 12/11/2024 19:02 Note Text: Report to basilio banks rn [facility] ED NOTE HNO ID: [id number] Author: MARIA LUISA GREENE RN Service: ? Author Type: Registered Nurse Type: ED Notes Filed: 12/11/2024 14:07 Note Text: Pt accepted to [facility] by urologist [facility] ED NOTE HNO ID: [id number] Author: MARIA LUISA GREENE RN Service: ? Author Type: Registered Nurse Type: ED Notes Filed: 12/11/2024 14:04 Note Text: Dr lucas speaking with urologist from [facility] ED NOTE HNO ID: [id number] Author: MARIA LUISA GREENE RN Service: ? Author Type: Registered Nurse Type: ED Notes Filed: 12/11/2024 12:21 Note Text: Pt reports that her nausea and pain are getting worse. Dr lucas made aware [facility] ED NOTE HNO ID: [id number] Author: MARIA LUISA GREENE RN Service: ? Author Type: Registered Nurse Type: ED Notes Filed: 12/11/2024 11:22 Note Text: Pt c/o r flank and lower abd pain since 0915 this am. Pt has history of kidney stones. [facility] ED PROV NOTEon 12-11-2024 ED PROV NOTE HNO ID: [id number] Author: ALBINA DOOLEY DO Service: Emergency Medicine Author Type: Physician Type: ED Provider Notes Filed: 12/11/2024 14:16 Note Text: ED Provider Note Patient Name: Sid Lezama : 1975 SERVICE DATE: 12/11/24 History Patient presents with: Flank Pain Sid Lezama is a 48 year old female with history of multiple chronic medical problems who presents with Flank Pain. - Symptoms began this morning. - Severity: severe - Timing: constant - Quality: sharp - Symptoms are associated with right lower abdominal pain, nausea, vomiting. - Symptoms are not associated with chest pain, fever, shortness of breath, dysuria, hematuria. Patient presents with right flank pain that started 9:15 AM. She states that she has a history of kidney stones and this feels similar. She she has had nausea and vomiting. She has had normal output from her ostomy. No dysuria or hematuria. No known fever. No chest pain or shortness of breath. She reports she is postmenopausal. 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 Lumbago 01/10/2007 Myalgia and myositis, unspecified Pain management Dr Stern Nonalcoholic fatty liver disease 08/24/2007 Other and unspecified hyperlipidemia 01/10/2007 PMH - PAST MEDICAL HISTORY OF Cx scarred to post vag wall/difficult exam Pneumonia, organism unspecified(486) 01/10/2007 Regional enteritis of large intestine (HCC) 08/07/2006 Retention of urine, unspecified 01/01/2007 Rheumatoid arthritis(714.0) Dr. Mc, [facility] Type II or unspecified type diabetes mellitus without mention of complication, not stated as uncontrolled Ureterolithiasis 07/18/2019 PAST SURGICAL HISTORY Procedure Laterality Date ADENOIDECTOMY PRIMARY Adenoidectomy ARTHROSCOPY KNEE DIAGNOSTIC W/WO SYNOVIAL BX SPX 1989 Arthroscopy, knee, left [facility] INCL FLUOR GDNCE DX W/CELL WASHG SPX 01/2007 Bronchoscopy EGD 05/02/2023 EPIDURAL 2011 multiple ones done by Dr. Beckett ILEOSCOPY 05/02/2023 PAST SURGICAL HISTORY OF 06/2000 ILEOSTOMY/COLECTOMY PAST SURGICAL HISTORY OF 1993 CRYOCAUTERY/ MILD DYSPLASIA PAST SURGICAL HISTORY OF 03/2006 Abdominal abscess with anal fistula PRCTECT COMPL W/STOT/TOT COLCT W/VENEER JOINER BXS 12/05/2006 AP endoanal proctectomy SHOULDER ARTHROSCOPY/SURGERY Left 05/06/2020 Rotator cuff debridement, subacromial decompression/arthropla sty TONSILLECTOMY PRIMARY/SECONDARY Tonsillectomy FAMILY HISTORY Problem Relation Age of Onset Alcohol/Drug Mother Hypertension Mother COPD other (vascular disease) Mother other (sleep apnea) Mother other (heart murmur) Mother Alcohol/Drug Father Cancer Father liver Asthma Brother Hypertension Daughter Diabetes Maternal Grandmother Stroke Maternal Grandmother Heart Maternal Grandmother Emphysema Paternal Grandmother Diabetes Paternal Grandfather Macular Degen Paternal Grandfather Anesthesia Problems No Family History Social History Tobacco Use Smoking status: Former Current packs/day: 0.00 Average packs/day: 1 pack/day for 16.0 years (16.0 ttl pk-yrs) Types: Cigarettes Start date: 12/04/1990 Quit date: 12/04/2006 Years since quittin.0 Smokeless tobacco: Never Vaping Use Vaping status: Never Used Substance and Sexual Activity Alcohol use: No Drug use: No Sexual activity: Yes Partners: Male control/protection: I.U.D. ALLERGIES Allergen Reactions Azithromycin Unknown thinks a rash Dilaudid [Hydromorp* Swelling migraines Levemir [Insulin De* Other: See Comments Urine turned dark and smelly Methadone Swelling migraine Morphine Swelling migraines Remicade [Inflixima* Intolerance, Rash broke out in blisters with the 6th dose. Ultram [Tramadol Hc* Swelling migraines Review of Systems Constitutional: Negative for chills and fever. Respiratory: Negative for shortness of breath. Cardiovascular: Negative for chest pain. Gastrointestinal: Positive for abdominal pain, nausea and vomiting. Negative for blood in stool. Genitourinary: Positive for flank pain. Negative for dysuria and hematuria. Musculoskeletal: Positive for back pain. Skin: Negative for rash. Neurological: Negative for syncope, weakness and numbness. Psychiatric/Behavioral: Negative for agitation and confusion. Physical Exam Vitals [12/11/24 1122] BP Pulse Temp Temp src Resp SpO2 Weight Height 177/92 85 (!) 35.2 ?C (95.4 ?F) Temporal Art 18 100 % 71.7 kg (158 lb) 1.499 m (4' 11) Physical Exam Vitals and irvin (more content not included)... Normal [facility] HISTORY PHYSICALon HISTORY PHYSICAL HNO ID: [id number] Author: SHAWN NAVA MD Service: Urology Author Type: Physician Type: H&P Filed: 12/12/2024 12:01 Note Text: Urology History and Physical Date: 12/11/2024 Patient Name: Sid Lezama Date of : 1975 Admit Date: (Not on file) Age: [age] year old PCP: Grayson Phan MD No chief complaint on file. Narrative: The patient is a 48 year old female known to PATRICIO Driver for history of nephrolithiasis, last seen 07/2024. She had litholink completed (showed low urine volume, hypocitraturia, and hypercalciuria). She has a past medical history of crohns with ileostomy, DM2, BARNES, hpl, and RA. She presented to [place] [facility] today with right sided flank pain that started this morning around 9am. She had associated nausea and vomiting. She reported normal output from her ileostomy. In the ER, workup revealed wbc 5.8, Scr 0.58, UA 1+ hgb, 11-[address] A/P showed a 1mm R UVJ calculus with moderate hydroureteronephrosis. She was afebrile. BP 177/69, HR 58. Pt has multiple narcotic allergies, and received toradol and fentanyl for pain. Pain was not controlled, so she was transferred to [facility] for further management. Pertinent Hospital workup: Wbc: 5.81 Hgb: 15.2 Scr: 0.58 (bl) Glucose: 273 UA: 1+ hgb, 11-25 rbc Ucx: n/a CT A/P: 1mm calculus at the right UVJ causing moderate hydronephrosis and hydroureter. No left hydro Pt seen in her room. Says that pain has completely subsided since 3am. 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 Lumbago 01/10/2007 Myalgia and myositis, unspecified Pain management Dr Stern Nonalcoholic fatty liver disease 08/24/2007 Other and unspecified hyperlipidemia 01/10/2007 PMH - PAST MEDICAL HISTORY OF Cx scarred to post vag wall/difficult exam Pneumonia, organism unspecified(486) 01/10/2007 Regional enteritis of large intestine (HCC) 08/07/2006 Retention of urine, unspecified 01/01/2007 Rheumatoid arthritis(714.0) Dr. Mc, [facility] Type II or unspecified type diabetes mellitus without mention of complication, not stated as uncontrolled Ureterolithiasis 07/18/2019 PAST SURGICAL HISTORY Procedure Laterality Date ADENOIDECTOMY PRIMARY Adenoidectomy ARTHROSCOPY KNEE DIAGNOSTIC W/WO SYNOVIAL BX SPX 1989 Arthroscopy, knee, left [facility] INCL FLUOR GDNCE DX W/CELL WASHG SPX 01/2007 Bronchoscopy EGD 05/02/2023 EPIDURAL 2011 multiple ones done by Dr. Beckett ILEOSCOPY 05/02/2023 PAST SURGICAL HISTORY OF 06/2000 ILEOSTOMY/COLECTOMY PAST SURGICAL HISTORY OF 1993 CRYOCAUTERY/ MILD DYSPLASIA PAST SURGICAL HISTORY OF 03/2006 Abdominal abscess with anal fistula PRCTECT COMPL W/STOT/TOT COLCT W/VENEER JOINER BXS 12/05/2006 AP endoanal proctectomy SHOULDER ARTHROSCOPY/SURGERY Left 05/06/2020 Rotator cuff debridement, subacromial decompression/arthropla sty TONSILLECTOMY PRIMARY/SECONDARY Tonsillectomy Family History Problem Relation Age of Onset Alcohol/Drug Mother Hypertension Mother COPD other (vascular disease) Mother other (sleep apnea) Mother other (heart murmur) Mother Alcohol/Drug Father Cancer Father liver Asthma Brother Hypertension Daughter Diabetes Maternal Grandmother Stroke Maternal Grandmother Heart Maternal Grandmother Emphysema Paternal Grandmother Diabetes Paternal Grandfather Macular Degen Paternal Grandfather Anesthesia Problems No Family History No outpatient medications have been marked as taking for the 12/11/24 encounter (Hospital Encounter). Medications - No data to display ALLERGIES Allergen Reactions Azithromycin Unknown thinks a rash Dilaudid [Hydromorp* Swelling migraines Levemir [Insulin De* Other: See Comments Urine turned dark and smelly Methadone Swelling migraine Morphine Swelling migraines Remicade [Inflixima* Intolerance, Rash broke out in blisters with the 6th dose. Ultram [Tramadol Hc* Swelling migraines Social History: Social History Tobacco Use Smoking status: Former Current packs/day: 0.00 Average packs/day: 1 pack/day for 16.0 years (16.0 ttl pk-yrs) Types: Cigarettes Start date: 12/04/1990 Quit date: 12/04/2006 Years since quittin.0 Smokeless tobacco: Never Vaping Use Vaping status: Never Used Substance Use Topics Alcohol use: No Drug use: No ROS: Constitutional: negative for chills and fevers Respiratory: negative for hemoptysis and shortness of breath Cardiovascular: negative for dyspnea and syncope Gastrointestinal: + nausea and vomiting Genitourinary: (more content not included)... Normal [facility] Urinalysis complete panel (U )on 12-11-2024 Bilirubin Ql (U) Negative Normal Negative [facility] Comment on above: Order Comment: Speci men Type: BLOOD SPECIMEN Ordering Facility: [facility] Address: [address] [place] [address] Performed By: #### 2 4323-8 #### [facility] CLIA [id number] [address] [place] [address] [place] CALCIUM OXALATE CRYSTALS (UA) Few Abnormal None Seen [facility] Comment on above: Order Comment: Speci men Type: BLOOD SPECIMEN Ordering Facility: [facility] Address: [address] [place] [address] Performed By: #### 2 4323-8 #### [facility] CLIA [id number] [address] [place] [address] [place] Clarity (Unsp spec) Clear Normal Clear [facility] Comment on above: Order Comment: Speci men Type: BLOOD SPECIMEN Ordering Facility: [facility] Address: [address] [place] [address] Performed By: #### 2 4323-8 #### [facility] CLIA [id number] [address] [place] [address] [facility] [place] Color (U) Yellow Normal Yellow [facility] Comment on above: Order Comment: Speci men Type: BLOOD SPECIMEN Ordering Facility: [facility] Address: [address] [place] [address] Performed By: #### 2 4323-8 #### [facility] CLIA [id number] [address] [place] [address] [facility] Epithelial cells LM.HPF (Urine sed) [#/Area] Few Normal [facility] Comment on above: Order Comment: Speci men Type: BLOOD SPECIMEN Ordering Facility: [facility] Address: [address] [place] [address] Performed By: #### 2 4323-8 #### [facility] CLIA [id number] [address] [place] [address] [facility] Glucose Test strip (U) [Mass/Vol] 2+ Abnormal Negative [facility] Comment on above: Order Comment: Speci men Type: BLOOD SPECIMEN Ordering Facility: [facility] Address: [address] [place] [address] Performed By: #### 2 4323-8 #### [facility] CLIA [id number] [address] [place] [address] [facility] [place] Hemoglobin Ql (U) 1+ Abnormal Negative [facility] Comment on above: Order Comment: Speci men Type: BLOOD SPECIMEN Ordering Facility: [facility] Address: [address] [place] [address] Performed By: #### 2 4323-8 #### [facility] CLIA [id number] [address] [place] [address] [facility] Ketones Ql (U) Negative Normal Negative [facility] Comment on above: Order Comment: Speci men Type: BLOOD SPECIMEN Ordering Facility: [facility] Address: [address] [place] [address] Performed By: #### 2 4323-8 #### [facility] CLIA [id number] [address] [place] [address] [facility] Leukocyte esterase Test strip Ql (U) Negative Normal Negative [facility] Comment on above: Order Comment: Speci men Type: BLOOD SPECIMEN Ordering Facility: [facility] Address: [address] [place] [address] Performed By: #### 2 4323-8 #### [facility] CLIA [id number] [address] [place] [address] [place] Nitrite Ql (U) Negative Normal Negative [facility] Comment on above: Order Comment: Speci men Type: BLOOD SPECIMEN Ordering Facility: [facility] Address: [address] [place] [address] Performed By: #### 2 4323-8 #### [facility] CLIA [id number] [address] [place] [address] [place] pH (U) 5.5 [pH] Normal 5.0-8.0 [facility] Comment on above: Order Comment: Speci men Type: BLOOD SPECIMEN Ordering Facility: [facility] Address: [address] [place] [address] Performed By: #### 2 4323-8 #### [facility] CLIA [id number] [address] [place] [address] [facility] Protein (U) [Mass/Vol] Negative Normal Negative [facility] Comment on above: Order Comment: Speci men Type: BLOOD SPECIMEN Ordering Facility: [facility] Address: [address] [place] [address] Performed By: #### 2 4323-8 #### [facility] CLIA [id number] [address] [place] [id number] [facility] RBC LM.HPF (Urine sed) [#/Area] 11-25 /HPF Abnormal 0-3 /HPF [facility] Comment on above: Order Comment: Speci men Type: BLOOD SPECIMEN Ordering Facility: [facility] Address: [address] [place] [address] Performed By: #### 2 4323-8 #### [facility] CLIA [id number] [address] [place] [address] [place] Specific gravity (U) [Rel density] 1.025 Normal 1.005-1.030 [facility] Comment on above: Order Comment: Speci men Type: BLOOD SPECIMEN Ordering Facility: [facility] Address: [address] [place] [address] Performed By: #### 2 4323-8 #### [facility] CLIA [id number] [address] [place] [id number] [place] [address] [place] Urobilinogen Ql (U) 0.2 EU/dL Normal 0.2-1.0 EU/dL [facility] Comment on above: Order Comment: Speci men Type: BLOOD SPECIMEN Ordering Facility: [facility] Address: [address] [place] [address] Performed By: #### 2 4323-8 #### [facility] CLIA [id number] [address] [place] [address] [place] WBC LM.HPF (Urine sed) [#/Area] 0-5 /HPF Normal 0-5 /HPF [facility] Comment on above: Order Comment: Speci men Type: BLOOD SPECIMEN Ordering Facility: [facility] Address: [address] [place] [address] Performed By: #### 2 4323-8 #### [facility] CLIA [id number] [address] [place] [address] [place] L3410.9999on 11-20-2024 [facility] Misc. COMMENT Normal . [facility] Comment on above: Order Comment: 71968 3 URINE TOXICOLOGY Result Comment: Test Ordered: [id number] 6+Oxycodone-Bund Amphetamines, Urine Negative ng/mL UI Reference Range: Jeykpd=6681 Amphetamine test includes Amphetamine and Methamphetamine. Barbiturate Negative ng/mL UI Reference Range: Ympfco=144 Benzodiazepines Negative ng/mL UI Reference Range: Shyxzr=525 Cannabinoids Negative ng/mL UI Reference Range: Cutoff=20 Cocaine (Metabolite) Negative ng/mL UI Reference Range: Ryclnp=725 Opiates Negative ng/mL UI Reference Range: Lhxvtu=621 Opiate test includes Codeine, Morphine, Hydromorphone, Hydrocodone. Oxycodone/Oxymorphone, Urine Note: ng/mL UI See Final Results Reference Range: Erxcqf=903 Test includes Oxycodone and Oxymorphone Oxycodone/Oxymorph Positive [A ] UI Reference Range: Hgzgbq=485 Test includes Oxycodone and Oxymorphone Oxycodone Positive [A ] UI Reference Range: . Oxycodone Conf, MS, UR 858 ng/mL UI Reference Range: Cwgyzo=008 Oxymorphone Positive [A ] UI Reference Range: . Oxymorphone Conf, MS, UR 864 ng/mL UI Reference Range: Xlkjdg=279 Performed at: [facility] [address] [place], [place] [id number] Steel Tester: Eugenio Hernández PhD, Phone: [phone] Performed at: [address] [id number] Steel Tester: Deven Rhoades PhD, Phone: [phone] Performed By: #### L 3410.9999, L505.5000 #### [facility] [address] [place], [place], [id number] Urine Drug Screen (VISTA)on 11-15-2024 AMPHETAMINES Negative Normal <1000 ng/mL [facility] Comment on above: Order Comment: MEDTO X Performed By: #### L 3410.9999, L505.5000 #### [facility] [address] [place], [place], [id number] BARBITIURATES Negative Normal < 200 ng/mL [facility] Comment on above: Order Comment: MEDTO X Performed By: #### L 3410.9999, L505.5000 #### [facility] [address] [place], [place], [id number] BENZODIAZIPINE Negative Normal < 200 ng/mL [facility] Comment on above: Order Comment: MEDTO X Performed By: #### L 3410.9999, L505.5000 #### [facility] [address] [place], [address] COCAINE Negative Normal < 300 ng/mL [facility] Comment on above: Order Comment: MEDTO X Performed By: #### L 3410.9999, L505.5000 #### [facility] [address] [place], [place], [address] ECSTACY Negative Normal < 500 ng/mL [facility] Comment on above: Order Comment: MEDTO X Performed By: #### L [id number], L505.5000 #### [facility] [address] [place], [address] METHADONE Negative Normal < 300 ng/mL [facility] Comment on above: Order Comment: MEDTO X Performed By: #### L [id number], L505.5000 #### [facility] [address] [place], [address] OPIATES Negative Normal < 300 ng/mL [facility] Comment on above: Order Comment: MEDTO X Performed By: #### L [id number], L505.5000 #### [facility] [address] [place], [address] PCP Negative Normal < 25 ng/mL [facility] Comment on above: Order Comment: MEDTO X Performed By: #### L [id number], L505.5000 #### [facility] [address] [place], [address] THC Negative Normal < 50 ng/mL [facility] Comment on above: Order Comment: MEDTO X Performed By: #### L [id number], [id number] #### [facility] [address] [place], [address] VISTA UDS PH 5 Normal [facility] Comment on above: Order Comment: MEDTO X Performed By: #### L [id number], [id number] #### [facility] [place], [address] Luca 10-28-2024 CNPN Telephone (ENDOMN) SHELBIESID ([id number]) 1975 F Date Time Provider Department 10/28/24 PANDA HARRISON During your visit today, we recorded the following information about you: Diandra Powell 10/28/2024 1:44 PM Signed Patient called and stated she's had an arthritis flare and she had to take prednisone staring last Monday . Her blood sugars are currently 380 and steady rising. Patients only current symptom is excessive thirst. Patient also mentioned she is on the gianfranco 3 and you'll be able to check when her numbers started to spike. Please advise [phone] Diandra Powell Chief Service Observer II Diabetes AND Endocrinology X-20 Chapin Hurtado RN 10/28/2024 2:03 PM Signed I spoke with Sid to discuss her high glucose readings. Due to an arthritis flare she was put on prednisone. Started with 20mg daily on Monday. Tomorrow she will decrease dose to 10mg daily for 3 days. Last DM meds: Lantus 30 units 1230 am 10/28 Ozempic 1mg 10/23 Current glucose 358 only food intake today was 2 [employer] [place] [employer] Last night for dinner she ate 3 pieces of pizza, a slice ice cream cake and a couple cookies before bed. Encouraged Sid to reduce simple carb intake while glucose is high. Symptoms: thirst denies any other symptoms. Panda Harrison MD 10/28/2024 4:50 PM Signed Agree with plan for dietary modification prednisone will be cut in half tomorrow Chapin Hurtado RN 10/29/2024 11:49 AM Signed I spoke with Sid again today. She states her glucose is 195 after taking 60 units of Lantus last night, and all she had to day was black coffee. She only eats once daily and her meal today will be aroung 6 pm. I let her know that Dr. Harrison agreed that she limit simple carbs with her meal and to let us know if her glucose remains high. She states she was told to only use Lantus when taking prednisone and feels her questions were not answered, but she will figure it out. Chapin Membreno RN, BSN Endocrinology-[facility] Panda Harrison MD 10/29/2024 12:37 PM Signed I will send patient a message asking her to clarify her question Panda Harrison MD 10/29/2024 1:27 PM Signed I called the patient 2 more days of 10 mg prednisone (prednisone 20 mg 3 days before that) Glucose now 275 going up But still better than previous A/P Hydration Watch out for hypoglycemia Reduce Lantus tonight and tomorrow night to 40 units Then back to 20 units (she was taking at bedtime, not morning) Panda Harrison MD 10/29/2024 1:28 PM Signed Addended by: PANDA HARRISON on: 10/29/2024 01:28 PM Modules accepted: Orders Allergies As of Date: 10/28/2024 Noted Allergy Reaction AZITHROMYCIN 03/18/2021 16 - Unknown Comments: thinks a rash DILAUDID (HYDROMORPHONE (BULK)) 08/07/2006 7 - Swelling [...] 7 - Swelling Comments: migraines Date Reviewed: 10/25/2024 Reviewed by: Steve Juarez APRN.SQL ANALYST - Fully Assessed Reason for Visit: High glucose on prednisone [Other] Visit Diagnosis:Type 2 diabetes mellitus with hyperglycemia, with long-term current use of insulin ([facility]) [E11.65, Z79.4] Order(s):insulin glargine (LANTUS SOLOSTAR U-100 INSULIN) 100 unit/mL (3 mL)INJECT 20 UNITS UNDER THE SKIN EVERY eveningDisp: 30 mLRfl: 3 Prescriptions as of 10/29/2024 - insulin glargine (LANTUS SOLOSTAR U-100 INSULIN) 100 unit/mL (3 mL) INJECT 20 UNITS UNDER THE SKIN EVERY evening - predniSONE (DELTASONE) 10 mg tablet Take in the morning with food. Take 2 tabs daily x 3 days, then 1 tab daily x 3 days, then stop. - pantoprazole DR (PROTONIX) 20 mg tablet Take 1 tablet by mouth daily before breakfast. Take on empty stomach, 1/2 hr before meal. - blood sugar diagnostic (ACCU-CHEK GUIDE TEST STRIPS) test strip USE WITH BLOOD GLUCOSE TEST THREE TIMES A DAY. - Lancets (ACCU-CHEK FASTCLIX LANCET DRUM) Use as instructed to check blood glucose up to 2 times daily. E11.9 - Insulin Lynch, Disposable, (DROPLET PEN NEEDLE) 32 gauge x 5/32 USE TO INJECT ONE TIME DAILY - Lancing Device with Lancets ACCU CHEK FASTCLIX LANCET *DEVICE* use to check blood glucose up to 2 times per day as instructed. E11.9 - GVOKE PFS 1-PACK SYRINGE 1 mg/0.2 mL syrg INJECT 0.2 ML UNDER THE SKIN NEEDED. - semaglutide (OZEMPIC) 1 mg/dose (4 mg/3 mL) pen Inject 1 mg subcutaneously one time a week. Patient should start on May 13, 2024. - Blood-Glucose Sensor (FREESTYL (more content not included)... Normal [facility] CNOVon 10-25-2024 CNOV Office Visit (OSCAR ) SID LEZAMA ([id number]) 1975 F Date Time Provider Department 10/25/24 10:00 AM STEVE JUAREZ During your visit today, we recorded the following information about you: Temperature Pulse Blood pressure Weight 98.5 degrees 68/minute 136/83 71.6 kg Height 1.555 m Steve Juarez APRN.LORI 10/25/2024 10:02 AM Signed Please have labs done around 12/03/2024 Steve Juarez APRN.SQL ANALYST 10/25/2024 11:00 AM Signed Follow-up of seronegative spondyloarthropathy HPI: To review, Sid Lezama is a 48 year old female - Since teenage years, with intermittent joint pain and swelling. Affected joints include the wrists, MCPs, PIPs, knees, ankles and toes. Also gets hip pain. Eases with movement/activity. Worst pain is evening. - In April, diagnosed with Crohn's per colonoscopy. Underwent surgery to remove the large intestine. - In , had a rectal fistula so tried remicade (stopped s/p 6th dose for rash). Rectal stump was removed after that. - Sees pain management for serial spinal injections - In , diagnosed with psoriasis over scalp, knees and dorsal feet. - In Jun, reported no GI issues, no need for medication or surgery for Crohn's since . Diagnosed with SpA. Advised humira which she decided against starting given c/f potential SE - Since February, has been seeing holistic provider. Taking supplements - In Jul, reported she had lost 20 lbs. Overall stable. - In Jun, reported she had 3 doses of stelara which she started after the prior visit. Had had 3 doses thus far. Improved psoriasis, not yet of joints - in 12/2023, reports 70-80% improved in the joints and skin with the stelara. Was due 12/22/23, needs more. 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 Lumbago 01/10/2007 Myalgia and myositis, unspecified Pain management Dr Stern Nonalcoholic fatty liver disease 08/24/2007 Other and unspecified hyperlipidemia 01/10/2007 PMH - PAST MEDICAL HISTORY OF Cx scarred to post vag wall/difficult exam Pneumonia, organism unspecified(486) 01/10/2007 Regional enteritis of large intestine (HCC) 08/07/2006 Retention of urine, unspecified 01/01/2007 Rheumatoid arthritis(714.0) Dr. Mc, [facility] Type II or unspecified type diabetes mellitus without mention of complication, not stated as uncontrolled Ureterolithiasis 07/18/2019 GERD PAST SURGICAL HISTORY Procedure Laterality Date ADENOIDECTOMY PRIMARY Adenoidectomy ARTHROSCOPY KNEE DIAGNOSTIC W/WO SYNOVIAL BX SPX 1989 Arthroscopy, knee, left BRNCHSC INCL FLUOR GDNCE DX W/CELL WASHG SPX 01/2007 Bronchoscopy EGD 05/02/2023 EPIDURAL 2011 multiple ones done by Dr. Beckett ILEOSCOPY 05/02/2023 PAST SURGICAL HISTORY OF 06/2000 ILEOSTOMY/COLECTOMY PAST SURGICAL HISTORY OF 1993 CRYOCAUTERY/ MILD DYSPLASIA PAST SURGICAL HISTORY OF 03/2006 Abdominal abscess with anal fistula PRCTECT COMPL W/STOT/TOT COLCT W/VENEER JOINER BXS 12/05/2006 AP endoanal proctectomy SHOULDER ARTHROSCOPY/SURGERY Left 05/06/2020 Rotator cuff debridement, subacromial decompression/arthropla sty TONSILLECTOMY PRIMARY/SECONDARY Tonsillectomy ALLERGIES Allergen Reactions Azithromycin Unknown thinks a rash Dilaudid [Hydromorp* Swelling migraines Levemir [Insulin De* Other: See Comments Urine turned dark and smelly Methadone Swelling migraine Morphine Swelling migraines Remicade [Inflixima* Intolerance, Rash broke out in blisters with the 6th dose. Ultram [Tramadol Hc* Swelling migraines INTERVAL HISTORY She is here for follow up. She reports current flare. She states stelara starts to wear off 3 weeks prior to the next injection. Her next injection is due in 11/2024. She is planning to get a cervical spine injection for neck pain. Bowel symptoms have been stable. She takes percocet for pain. Sites of pain: R index finger, L hip, neck, L knee, pain rated 2/10 Joint swelling: fingers EMS: yes, lasting 30 minutes Psoriasis: neck, hands, she uses coconut oil No recent infections. Tolerating meds. Answers submitted by the patient for this visit: Review of Systems Rheumatology (Submitted on 10/21/2024) Fever : No Recent unintentional weight change: No Eye pain: No Eye redness: No Vision Disturbance: No Eye Dryness: No Nosebleeds: No Sores in your mouth: No Trouble Swallowing: No Dry Mouth: No Chest pain: No Leg Swell (more content not included)... Normal [facility] CNOVon 08-12-2024 CNOV Office Visit (INTMWS ) SID LEZAMA ([id number]) 1975 F Date Time Provider Department 08/12/24 12:40 PM GRAYSON PHAN INTMWS During your visit today, we recorded the following information about you: Temperature Pulse Respiration Blood pressure 97.6 degrees 76/minute 18/minute 126/76 Weight 70.1 kg Grayson Phan MD 08/12/2024 1:29 PM Signed This note was created using [employer]. Subjective Sid Lezama is a 48 year old female. She was doing well. She mainly sees her specialists and I only refill her PPI for GERD. Migraines were inactive. She was having some DME issues related to her stoma and TENS. She was being weaned off Ozempic. She saw gynecology and PAP was not due. She declined vaccines. Review of Systems Constitutional: Negative for fever and unexpected weight change. Respiratory: Negative for cough and shortness of breath. Cardiovascular: Negative for chest pain, palpitations and leg swelling. Gastrointestinal: Negative for abdominal pain, constipation and diarrhea. Neurological: Negative for dizziness and headaches. 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, With Long-Term Current Use of Insulin ([facility]) Nuclear Sclerosis of Both Eyes Vitreous Floaters of Both Eyes Bone Loss Corticosteroids Adverse Reaction Gastroesophageal Reflux Disease Without Esophagitis Dry Eye Syndrome of Both Eyes Obesity (Bmi 30.0-34.9) Seronegative Spondyloarthropathy Psoriatic Arthritis ([facility]) Social History Tobacco Use Smoking status: Former Current packs/day: 0.00 Average packs/day: 1 pack/day for 16.0 years (16.0 ttl pk-yrs) Types: Cigarettes Start date: 12/04/1990 Quit date: 12/04/2006 Years since quittin.7 Smokeless tobacco: Never Vaping Use Vaping status: Never Used Substance Use Topics Alcohol use: No Drug use: No Current Outpatient Medications Medication Sig blood sugar diagnostic (ACCU-CHEK GUIDE TEST STRIPS) test strip USE WITH BLOOD GLUCOSE TEST THREE TIMES A DAY. pantoprazole DR (PROTONIX) 20 mg tablet Take 1 tablet by mouth daily before breakfast. Take on empty stomach, 1/2 hr before meal. Lancets (ACCU-CHEK FASTCLIX LANCET DRUM) Use as instructed to check blood glucose up to 2 times daily. E11.9 Insulin Lynch, Disposable, (DROPLET PEN NEEDLE) 32 gauge x 5/32 USE TO INJECT ONE TIME DAILY Lancing Device with Lancets ACCU CHEK FASTCLIX LANCET *DEVICE* use to check blood glucose up to 2 times per day as instructed. E11.9 GVOKE PFS 1-PACK SYRINGE 1 mg/0.2 mL syrg INJECT 0.2 ML UNDER THE SKIN NEEDED. insulin glargine (LANTUS SOLOSTAR U-100 INSULIN) 100 unit/mL (3 mL) INJECT 25 UNITS UNDER THE SKIN bedtime semaglutide (OZEMPIC) 1 mg/dose (4 mg/3 mL) pen Inject 1 mg subcutaneously one time a week. Patient should start on May 13, 2024. Blood-Glucose Sensor (FREESTYLE GIANFRANCO 3 SENSOR) matilda Apply new sensor every fourteen (14) days to upper arm. E11.9 Blood-Glucose Meter,Continuous (FREESTYLE GIANFRANCO 3 READER) [facility] Use to check blood sugar at least four (4) times daily. ustekinumab (STELARA) 45 mg/0.5 mL sub-Q syringe Inject 45 mg (1 syringe) subcutaneously every 12 weeks clobetasol (TEMOVATE) 0.05 % ointment Apply to affected area two times a day. Face. Feet. Two weeks on and two weeks off, per [facility] Dermatology. fexofenadine HCl (LELA ORAL) Take by mouth. levonorgestrel (MIRENA) 20 mcg/24 hours (8 yrs) 52 mg IUD 1 Each by INTRAUTERINE route as directed. oxyCODONE-acetaminophen (PERCOCET) 5-325 mg tablet TAKE 1 TABLET BY MOUTH 3 TIMES A DAY NEEDED FOR 28 DAYS vits62/FA/om3/dha/epa ( GUMMY ORAL) Take 2 Doses by mouth once daily. Blood-Glucose Meter (ACCU-CHEK DIANNE) Test blood sugar(s) 2 times daily. Dx: Type 2 DM - Controlled E11.9 Insulin: No, Accu-check brand covered by insurance Ascorbic Acid 500 mg chew Take 1,000 mg by mouth once daily. With rosehips elderberry fruit (ELDERBERRY ORAL) Take by mouth. COMPOUNDED PRESCRIPTION 1. V44.2 Ileostomy status (HCC) (primary diagnosis) 2. 555.1 Regional enteritis of large intestine (HCC) Ileostomy Supplies. 1. Pouches, 2. Planges, 3. Felipe seals, 4. Stoma adhesive, 5. Stoma powder, 6. Skin preps, 7. Adhesive remover wipes. Dispense 1 year supplies. tiZANidine (ZANAFLEX) 4 mg tablet Take by mouth. . Takes 1 tablet at bedtime. No current facility-administered medications for this visit. Objective BP 126/76 (BP Site: Left Arm, BP Position: Sitting, BP Cuff Size: Large (more content not included)... Normal [facility] CNOVon 07-17-2024 CNOV Office Visit (UROLST ) SID LEZAMA ([id number]) 1975 F Date Time Provider Department 07/17/24 3:30 PM SAMY BARRAGAN UROLST During your visit today, we recorded the following information about you: Samy Barragan PA-C 07/17/2024 4:48 PM Signed UROLOGY NOTE Chief complaint: kidneys tones Sid Lezama is a 48 year old female who presents today for kidney stone management and prevention counseling. Interval hx May 15, 2024 Patient presented to ED on 05/06/24 due to left flank pain consistent with previous kidney stone pain. CT from earlier ED visit in January showed L renal stone, so treated as migrating stone. Finished the prescribed Flomax. Crohn's and ileostomy. Does not take calcium. Pt currently: no fever, no chills, no nausea, no vomiting, no dysuria, no gross hematuria, no renal colic - New US ordered to assess for current stone(s) burden / passage - Patient is interested in 24-hour urine collection and dietary analysis for stone prevention. Litholink kit to be sent to and completed by patient. - Metabolic lab work ordered to assess underlying stone and/or hypercalcinuria etiologies. RTC in 1.5 months w/ new LL, labs, and US. Interval hx July 17, 2024 Patient returns to clinic having completed Litholink and unremarkable metabolic lab work. She presented to the ED on 06/02/24 due to passing a left distal ureteral stone (believes she passed it that night), with no pain since then. Notes that her chiropractor gave her a tincture to dissolve kidney stones as well. There is no height or weight on file to calculate BMI. 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 01/10/2007: Lumbago No date: Myalgia and myositis, unspecified Comment: Pain management Dr Stern 08/24/2007: Nonalcoholic fatty liver disease 01/10/2007: Other and unspecified hyperlipidemia No date: PMH - PAST MEDICAL HISTORY OF Comment: Cx scarred to post vag wall/difficult exam 01/10/2007: Pneumonia, organism unspecified(486) 08/07/2006: Regional enteritis of large intestine (HCC) 01/01/2007: Retention of urine, unspecified No date: Rheumatoid arthritis(714.0) Comment: Dr. Mc, [facility] No date: Type II or unspecified type diabetes mellitus without mention of complication, not stated as uncontrolled 07/18/2019: Ureterolithiasis PAST SURGICAL HISTORY 1987: ADENOIDECTOMY PRIMARY Comment: Adenoidectomy 1989: ARTHROSCOPY KNEE DIAGNOSTIC W/WO SYNOVIAL BX SPX Comment: Arthroscopy, knee, left 01/2007: [facility] INCL FLUOR GDNCE DX W/CELL WASHG SPX Comment: Bronchoscopy 05/02/2023: EGD 2010: EPIDURAL Comment: multiple ones done by Dr. Beckett 05/02/2023: ILEOSCOPY 06/2000: PAST SURGICAL HISTORY OF Comment: ILEOSTOMY/COLECTOMY 1993: PAST SURGICAL HISTORY OF Comment: CRYOCAUTERY/ MILD DYSPLASIA 03/2006: PAST SURGICAL HISTORY OF Comment: Abdominal abscess with anal fistula 12/05/2006: PRCTECT COMPL W/STOT/TOT COLCT W/VENEER JOINER BXS Comment: AP endoanal proctectomy 05/06/2020: SHOULDER ARTHROSCOPY/SURGERY; Left Comment: Rotator cuff debridement, subacromial decompression/arthropla sty 1987: TONSILLECTOMY PRIMARY/SECONDARY Comment: Tonsillectomy Family History Problem Relation Age of Onset Alcohol/Drug Mother Hypertension Mother COPD other (vascular disease) Mother other (sleep apnea) Mother other (heart murmur) Mother Alcohol/Drug Father Cancer Father liver Asthma Brother Hypertension Daughter Diabetes Maternal Grandmother Stroke Maternal Grandmother Heart Maternal Grandmother Emphysema Paternal Grandmother Diabetes Paternal Grandfather Macular Degen Paternal Grandfather Anesthesia Problems No Family History Social History Tobacco Use Smoking status: Former Current packs/day: 0.00 Average packs/day: 1 pack/day for 16.0 years (16.0 ttl pk-yrs) Types: Cigarettes Start date: 12/04/1990 Quit date: 12/04/2006 Years since quittin.6 Smokeless tobacco: Never Vaping Use Vaping status: Never Used Substance Use Topics Alcohol use: No Drug use: No Current Outpatient Medications on File Prior to Visit Medication Sig Lancets (ACCU-CHEK FASTCLIX LANCET DRUM) Use as instructed to check blood glucose up to 2 times daily. E11.9 Insulin Lynch, Disposable, (DROPLET PEN NEEDLE) 32 gauge x 5/32 USE TO INJECT ONE TIME DAILY Lancing Device with Lancets ACCU CHEK FASTCLIX LANCET *DEVICE* use to check blood glucose up (more content not included)... Normal [facility] CNOVon 06-17-2024 CNOV Office Visit (OBGYWM ) SID LEZAMA ([id number]) 1975 F Date Time Provider Department 06/17/24 1:40 PM SAFIA JAMIL During your visit today, we recorded the following information about you: Blood pressure Weight Height 110/64 69.9 kg 1.511 m Safia Jamil MD 06/20/2024 9:53 PM Signed Supervisor Blood offered: Patient declines. Sid is a 48 year old who presents for an annual gynecologic exam without complaints. Urinary urgency and was on Flomax for kidney stones. Having a more difficult time emptying ballder. Menses: no menses - Mirena IUD. Contraception: IUD HPV vaccine: N/A Last Pap: 12/30/2019 normal HPV: 12/26/2019 negative History of abnormal pap: No Last mammogram: 2021 OB History T1 L1 SAB0 IAB0 Ectopic0 Multiple0 Live Births0 Production Checker History LMP: 07/25/2018, IUD Age at Menarche: Age at First : Age at Menopause: Production Checker History Comments: Sexual Activity: Yes; Male Contraception: I.U.D. 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 01/10/2007: Lumbago No date: Myalgia and myositis, unspecified Comment: Pain management Dr Stren 08/24/2007: Nonalcoholic fatty liver disease 01/10/2007: Other and unspecified hyperlipidemia No date: PMH - PAST MEDICAL HISTORY OF Comment: Cx scarred to post vag wall/difficult exam 01/10/2007: Pneumonia, organism unspecified(486) 08/07/2006: Regional enteritis of large intestine (HCC) 01/01/2007: Retention of urine, unspecified No date: Rheumatoid arthritis(714.0) Comment: Dr. Mc, [facility] No date: Type II or unspecified type diabetes mellitus without mention of complication, not stated as uncontrolled 07/18/2019: UreterolithiasisPAST SURGICAL HISTORY 1987: ADENOIDECTOMY PRIMARY Comment: Adenoidectomy 1989: ARTHROSCOPY KNEE DIAGNOSTIC W/WO SYNOVIAL BX SPX Comment: Arthroscopy, knee, left 01/2007: [facility] INCL FLUOR GDNCE DX W/CELL WASHG SPX Comment: Bronchoscopy 05/02/2023: EGD 2010: EPIDURAL Comment: multiple ones done by Dr. Beckett 05/02/2023: ILEOSCOPY 06/2000: PAST SURGICAL HISTORY OF Comment: ILEOSTOMY/COLECTOMY 1993: PAST SURGICAL HISTORY OF Comment: CRYOCAUTERY/ MILD DYSPLASIA 03/2006: PAST SURGICAL HISTORY OF Comment: Abdominal abscess with anal fistula 12/05/2006: PRCTECT COMPL W/STOT/TOT COLCT W/VENEER JOINER BXS Comment: AP endoanal proctectomy 05/06/2020: SHOULDER ARTHROSCOPY/SURGERY; Left Comment: Rotator cuff debridement, subacromial decompression/arthropla sty 1987: TONSILLECTOMY PRIMARY/SECONDARY Comment: Tonsillectomy FAMILY HISTORY Problem Relation Age of Onset Alcohol/Drug Mother Hypertension Mother COPD other (vascular disease) Mother other (sleep apnea) Mother other (heart murmur) Mother Alcohol/Drug Father Cancer Father liver Asthma Brother Hypertension Daughter Diabetes Maternal Grandmother Stroke Maternal Grandmother Heart Maternal Grandmother Emphysema Paternal Grandmother Diabetes Paternal Grandfather Macular Degen Paternal Grandfather Anesthesia Problems No Family History SOCIAL HISTORY Social History Tobacco Use Smoking status: Former Packs/day: 1.00 Years: 16.00 Additional pack years: 0.00 Total pack years: 16.00 Types: Cigarettes Quit date: 12/04/2006 Years since quittin.5 Smokeless tobacco: Never Vaping Use Vaping Use: Never used Substance Use Topics Alcohol use: No Drug use: No REVIEW OF SYSTEMS Abdomen: No abdominal pain, nausea, vomiting. Bladder: No dysuria, gross hematuria, urinary frequency, urinary urgency, or incontinence. Breast: No breast lumps, nipple d/c, overlying skin changes, redness or skin retraction. Allergies and current medication updated:Yes EXAM: BP 110/64 Ht 4' 11.5 (1.51m) Wt 154 lb (69.9kg) LMP 07/25/2018 BMI 30.60 kg/(m2). GENERAL: pleasant, female in no apparent distress HEENT: Normocephalic and atraumatic BREAST: soft, non-tender, symmetric, no dominant mass, normal nipple-areolar complex, no lymphadenopathy, and no nipple discharge CHEST: Normal inspiratory effort ABDOMEN: soft, non-tender, and no masses PELVIC: external genitalia normal, normal Bartholin's glands, urethra, Concord's glands, no vulvar lesions, no cervical lesions, good vaginal support, physiologic discharge present, normal appearing perineal body and perianal region, IUD strings visualized BIMANUAL: uterus normal size, shape and co (more content not included)... Normal [facility] CNOVon 06-07-2024 CNOV Office Visit (OSCAR ) SID LEZAMA ([id number]) 1975 F Date Time Provider Department 06/07/24 1:00 PM STEVE JUAREZ During your visit today, we recorded the following information about you: Pulse Blood pressure Weight Height 70/minute 127/76 70 kg 1.511 m Steve Juarez APRN.SQL ANALYST 06/07/2024 2:29 PM Signed Follow-up of seronegative spondyloarthropathy HPI: To review, Sid Lezama is a 48 year old female - Since teenage years, with intermittent joint pain and swelling. Affected joints include the wrists, MCPs, PIPs, knees, ankles and toes. Also gets hip pain. Eases with movement/activity. Worst pain is evening. - In April, diagnosed with Crohn's per colonoscopy. Underwent surgery to remove the large intestine. - In , had a rectal fistula so tried remicade (stopped s/p 6th dose for rash). Rectal stump was removed after that. - Sees pain management for serial spinal injections - In , diagnosed with psoriasis over scalp, knees and dorsal feet. - In Jun, reported no GI issues, no need for medication or surgery for Crohn's since . Diagnosed with SpA. Advised humira which she decided against starting given c/f potential SE - Since February, has been seeing holistic provider. Taking supplements - In Jul, reported she had lost 20 lbs. Overall stable. - In Jun, reported she had 3 doses of stelara which she started after the prior visit. Had had 3 doses thus far. Improved psoriasis, not yet of joints - at [facility], reports 70-80% improved in the joints and skin with the stelara. Was due 12/22/23, needs more. 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 Lumbago 01/10/2007 Myalgia and myositis, unspecified Pain management Dr Stern Nonalcoholic fatty liver disease 08/24/2007 Other and unspecified hyperlipidemia 01/10/2007 PMH - PAST MEDICAL HISTORY OF Cx scarred to post vag wall/difficult exam Pneumonia, organism unspecified(486) 01/10/2007 Regional enteritis of large intestine (HCC) 08/07/2006 Retention of urine, unspecified 01/01/2007 Rheumatoid arthritis(714.0) Dr. Mc, [facility] Type II or unspecified type diabetes mellitus without mention of complication, not stated as uncontrolled Ureterolithiasis 07/18/2019 GERD PAST SURGICAL HISTORY Procedure Laterality Date ADENOIDECTOMY PRIMARY Adenoidectomy ARTHROSCOPY KNEE DIAGNOSTIC W/WO SYNOVIAL BX SPX 1989 Arthroscopy, knee, left BRNCHSC INCL FLUOR GDNCE DX W/CELL WASHG SPX 01/2007 Bronchoscopy EGD 05/02/2023 EPIDURAL 2011 multiple ones done by Dr. Beckett ILEOSCOPY 05/02/2023 PAST SURGICAL HISTORY OF 06/2000 ILEOSTOMY/COLECTOMY PAST SURGICAL HISTORY OF 1993 CRYOCAUTERY/ MILD DYSPLASIA PAST SURGICAL HISTORY OF 03/2006 Abdominal abscess with anal fistula PRCTECT COMPL W/STOT/TOT COLCT W/VENEER JOINER BXS 12/05/2006 AP endoanal proctectomy SHOULDER ARTHROSCOPY/SURGERY Left 05/06/2020 Rotator cuff debridement, subacromial decompression/arthropla sty TONSILLECTOMY PRIMARY/SECONDARY Tonsillectomy ALLERGIES Allergen Reactions Azithromycin Unknown thinks a rash Dilaudid [Hydromorp* Swelling migraines Levemir [Insulin De* Other: See Comments Urine turned dark and smelly Methadone Swelling migraine Morphine Swelling migraines Remicade [Inflixima* Intolerance, Rash broke out in blisters with the 6th dose. Ultram [Tramadol Hc* Swelling migraines INTERVAL HISTORY She is here for follow up. She went to the ED 06/02/2024 for a kidney stone. She states the stone has passed. Joint symptoms have been stable overall since the ONUR. She continues to have diarrhea, but states bowel symptoms are stable. She takes percocet for pain. She stopped taking lyrica in 02/2024. Sites of pain: L hip, low back, shoulders, elbows, pain rated 3-4/10 Joint swelling: R 2nd dip EMS: yes, lasting 60 minutes Psoriasis: hands, scalp- she is not using any topical treatments No recent infections. Tolerating meds. Answers submitted by the patient for this visit: Review of Systems Rheumatology (Submitted on 06/07/2024) Fever : No Recent unintentional weight change: No Eye pain: No Eye redness: No Vision Disturbance: No Eye Dryness: No Nosebleeds: No Sores in your mouth: No Trouble Swallowing: No Dry Mouth: No Chest pain: No Leg Swelling: No A cough: No Shortness of breath: No Pain with breathing: No Heartburn: No Abdominal p (more content not included)... Normal [facility] ALLIED HEALTH HNO ID: [id number] Author: ODETTE BRAVO RT(R) Service: Radiology Author Type: Technologist Type: Allied Health Filed: 06/02/2024 08:57 Note Text: Radiology Service Progress Note PATIENT NAME: Sid Lezama DATE OF SERVICE: June 02, 2024 TIME: 8:57 AM PATIENT IDENTITY VERIFICATION COMPLETED USING TWO (2) IDENTIFIERS: Name and Date of confirmed by patient verbally. FALL SCREENING: Has the patient had 2 falls in the last year or 1 fall with injury or currently using an Ambulatory Assistive Device (Walker, Cane, Wheelchair, Crutches, etc.)? Emergency Room Patient: Screened in ED PATIENT GENDER DATA: Female. status: : No status: NO. PATIENT RELEVANT IMPLANT DATA REVIEWED: Not Applicable PATIENT PRESENTS WITH AN IMPLANTABLE OR ATTACHED SODA JERKER: No RADIOLOGY DEPARTMENT: CT; Exam(s) Completed: Abdomen/Pelvis PERIPHERAL IV DATA: Not applicable SIGNED BY: RT Rodney(R) June 02, 2024 8:57 AM Normal [facility] CBC W Auto Differential pane l (Bld)on 06-02-2024 Basophils (Bld) [#/Vol] 0.05 10*3/uL Normal <0.11 [facility] Comment on above: Order Comment: Speci men Type: BLOOD SPECIMEN Ordering Facility: [facility] Address: [address] [place] [address] Performed By: #### 2 4323-8 #### [facility] CLIA [id number] [address] [place] [address] [facility] [place] Basophils/100 WBC (Bld) 0.8 % Normal [facility] Comment on above: Order Comment: Speci men Type: BLOOD SPECIMEN Ordering Facility: [facility] Address: [address] [place] [address] Performed By: #### 2 4323-8 #### [facility] CLIA [id number] [address] [place] [address] [facility] [place] Differential cell count method Nom (Bld) Auto Normal [facility] Comment on above: Order Comment: Speci men Type: BLOOD SPECIMEN Ordering Facility: [facility] Address: [address] [place] [address] Performed By: #### 2 4323-8 #### [facility] CLIA [id number] [address] [place] [address] [place] Eosinophils (Bld) [#/Vol] 0.20 10*3/uL Normal <0.46 [facility] Comment on above: Order Comment: Speci men Type: BLOOD SPECIMEN Ordering Facility: [facility] Address: [address] [place] [address] Performed By: #### 2 4323-8 #### [facility] CLIA [id number] [address] [place] [address] [facility] Eosinophils/100 WBC (Bld) 3.2 % Normal [facility] Comment on above: Order Comment: Speci men Type: BLOOD SPECIMEN Ordering Facility: [facility] Address: [address] [place] [address] Performed By: #### 2 4323-8 #### [facility] CLIA [id number] [address] [place] Erythrocyte distribution width (RBC) [Ratio] 12.1 % Normal 11.5-15.0 [facility] Comment on above: Order Comment: Speci men Type: BLOOD SPECIMEN Ordering Facility: [facility] Address: [address] [place] [address] Performed By: #### 2 4323-8 #### [facility] CLIA [id number] [address] [place] [address] [place] Hematocrit (Bld) [Volume fraction] 43.0 % Normal 36.0-46.0 [facility] Comment on above: Order Comment: Speci men Type: BLOOD SPECIMEN Ordering Facility: [facility] Address: [address] [place] [address] Performed By: #### 2 4323-8 #### [facility] CLIA [id number] [address] [place] [address] [place] Hemoglobin (Bld) [Mass/Vol] 14.1 g/dL Normal 11.5-15.5 [facility] Comment on above: Order Comment: Speci men Type: BLOOD SPECIMEN Ordering Facility: [facility] Address: [address] [place] [address] Performed By: #### 2 4323-8 #### [facility] CLIA [id number] [address] [place] [address] [place] Immature granulocytes (Bld) [#/Vol] 10*3/uL Normal <0.10 [facility] Comment on above: Order Comment: Speci men Type: BLOOD SPECIMEN Ordering Facility: [facility] Address: [address] [place] [address] Performed By: #### 2 4323-8 #### [facility] CLIA [id number] [address] [place] [address] [place] Immature granulocytes/100 WBC (Bld) 0.2 % Normal [facility] Comment on above: Order Comment: Speci men Type: BLOOD SPECIMEN Ordering Facility: [facility] Address: [address] [place] [address] Performed By: #### 2 4323-8 #### [facility] CLIA [id number] [address] [place] [address] [place] Lymphocytes (Bld) [#/Vol] 3.09 10*3/uL Normal 1.00-4.00 [facility] Comment on above: Order Comment: Speci men Type: BLOOD SPECIMEN Ordering Facility: [facility] Address: [address] [place] [address] Performed By: #### 2 4323-8 #### [facility] CLIA [id number] [address] [place] [address] [facility] Lymphocytes/100 WBC (Bld) 48.7 % Normal [facility] Comment on above: Order Comment: Speci men Type: BLOOD SPECIMEN Ordering Facility: [facility] Address: [address] [place] [address] Performed By: #### 2 4323-8 #### [facility] CLIA [id number] [address] [place] [address] [place] MCH (RBC) [Entitic mass] 29.4 pg Normal 26.0-34.0 [facility] Comment on above: Order Comment: Speci men Type: BLOOD SPECIMEN Ordering Facility: [facility] Address: [address] [place] [address] Performed By: #### 2 4323-8 #### [facility] CLIA [id number] [address] [place], [place] [address] [place] [address] [place] MCHC (RBC) [Mass/Vol] 32.8 g/dL Normal 30.5-36.0 [facility] Comment on above: Order Comment: Speci men Type: BLOOD SPECIMEN Ordering Facility: [facility] Address: [address] [place] [address] Performed By: #### 2 4323-8 #### [facility] CLIA [id number] [address] [place] [address] [place] MCV (RBC) [Entitic vol] 89.8 fL Normal 80.0-100.0 [facility] Comment on above: Order Comment: Speci men Type: BLOOD SPECIMEN Ordering Facility: [facility] Address: [address] [place] [address] Performed By: #### 2 4323-8 #### [facility] CLIA [id number] [address] [place] [address] [place] Monocytes (Bld) [#/Vol] 0.46 10*3/uL Normal <0.87 [facility] Comment on above: Order Comment: Speci men Type: BLOOD SPECIMEN Ordering Facility: [facility] Address: [address] [place] [address] Performed By: #### 2 4323-8 #### [facility] CLIA [id number] [address] [place] [address] [place] Monocytes/100 WBC (Bld) 7.3 % Normal [facility] Comment on above: Order Comment: Speci men Type: BLOOD SPECIMEN Ordering Facility: [facility] Address: [address] [place] [address] Performed By: #### 2 4323-8 #### [facility] CLIA [id number] [address] [place] [address] [place] Neutrophils (Bld) [#/Vol] 2.53 10*3/uL Normal 1.45-7.50 [facility] Comment on above: Order Comment: Speci men Type: BLOOD SPECIMEN Ordering Facility: [facility] Address: [address] [place] [address] Performed By: #### 2 4323-8 #### [facility] CLIA [id number] [address] [place] [address] [place] Neutrophils/100 WBC (Bld) 39.8 % Normal [facility] Comment on above: Order Comment: Speci men Type: BLOOD SPECIMEN Ordering Facility: [facility] Address: [address] [place] [address] Performed By: #### 2 4323-8 #### [facility] CLIA [id number] [address] [place] [address] [place] Nucleated RBC (Bld) [#/Vol] Normal [facility] Comment on above: Order Comment: Speci men Type: BLOOD SPECIMEN Ordering Facility: [facility] Address: [address] [place] [address] Performed By: #### 2 4323-8 #### [facility] CLIA [id number] [address] [place] [address] [place] Nucleated RBC/100 WBC (Bld) [Ratio] Normal [facility] Comment on above: Order Comment: Speci men Type: BLOOD SPECIMEN Ordering Facility: [facility] Address: [address] [place] [address] Performed By: #### 2 4323-8 #### [facility] CLIA [id number] [address] [place] [address] [place] Platelet mean volume (Bld) [Entitic vol] 10.4 fL Normal 9.0-12.7 [facility] Comment on above: Order Comment: Speci men Type: BLOOD SPECIMEN Ordering Facility: [facility] Address: [address] [place] [address] Performed By: #### 2 4323-8 #### [facility] CLIA [id number] [address] [place] [address] [place] Platelets (Bld) [#/Vol] 224 10*3/uL Normal 150-400 [facility] Comment on above: Order Comment: Speci men Type: BLOOD SPECIMEN Ordering Facility: [facility] Address: [address] [place] [address] Performed By: #### 2 4323-8 #### [facility] CLIA [id number] [address] [place] [address] [place] RBC (Bld) [#/Vol] 4.79 10*6/uL Normal 3.90-5.20 [facility] Comment on above: Order Comment: Speci men Type: BLOOD SPECIMEN Ordering Facility: [facility] Address: [address] [place] [address] Performed By: #### 2 4323-8 #### [facility] CLIA [id number] [address] [place] [address] [place] WBC (Bld) [#/Vol] 6.34 10*3/uL Normal 3.70-11.00 [facility] Comment on above: Order Comment: Speci men Type: BLOOD SPECIMEN Ordering Facility: [facility] Address: [facility] [place] [address] Performed By: #### 2 4323-8 #### [facility] CLIA [id number] [address] [place] [address] [address] [place] [address] ABD/PEL WO IVCONon 2023 CT ABD/PEL WO IVCON * * *Final Report* * * DATE OF EXAM: Jun 02 2024 8:56AM [facility] 0531 - CT ABD/PEL WO IVCON / PROCEDURE REASON: Flank pain, kidney stone suspected * * * * Physician Interpretation * * * * EXAMINATION: CT ABDOMEN AND PELVIS WITHOUT IV CONTRAST CLINICAL HISTORY: LEFT flank pain TECHNIQUE: Non-IV contrast imaging of the abdomen and pelvis was performed using standard technique, scanning from just above the dome of the diaphragm to the symphysis pubis. Unenhanced imaging is limited for the evaluation of some intra-abdominal and pelvic pathology. MQ: CTAPWO_3 Contrast: IV: None : ml of CT Radiation dose: Integrated Dose-length product (DLP) for this visit = 365.97 mGy*cm. CT Dose Reduction Employed: Automated exposure control(AEC) and iterative recon COMPARISON: 04/08/2022 RESULT: Abdomen / Pelvis: Liver: Unremarkable. Biliary: No gallbladder wall thickening. Spleen: No splenomegaly. Pancreas: Unremarkable. Adrenals: Normal RIGHT adrenal gland. Stable 9.5 mm LEFT adrenal hypodense nodule, likely adenoma. RIGHT kidney: No RIGHT renal calculus, mass, or hydronephrosis. LEFT kidney: 4 mm LEFT UVJ calculus (2:90) with mild upstream left-sided hydroureteronephrosis. No LEFT renal calculus. GI Tract: Stable postsurgical changes related to previous colectomy with RIGHT lower quadrant ostomy. Stable parastomal hernia containing fat and unobstructed bowel loop. No bowel dilatation or evidence of acute bowel inflammation. Lymph Nodes: No lymphadenopathy. Mesentery/peritoneum: No ascites. Retroperitoneum: No mass. Vasculature: Arterial atherosclerotic disease without aneurysm. Pelvis: No mass or ascites. ID in place. Bones/Soft Tissues: Mild degenerative changes. Stable lower thoracic vertebral body hemangioma. No acute process. Lower thorax: Small pericardial effusion. Mild linear LEFT basilar atelectasis/scarring. No consolidation or pleural fluid. Localizer images: No additional findings. IMPRESSION: 4 mm LEFT UVJ calculus with mild upstream left-sided hydroureteronephrosis. No other acute process or significant change from previous imaging. Profile Saw Operator: SANTOS Transcribe Date/Time: Jun 02 2024 9:00A Dictated by : SIA YUN MD This examination was interpreted and the report reviewed and electronically signed by: SIA YUN MD on Jun 02 2024 9:10AM EST [id number] Normal [facility] Comprehensive metabolic 2000 panelon 06-02-2024 Albumin [Mass/Vol] 4.2 g/dL Normal 3.9-4.9 [facility] Comment on above: Order Comment: Speci men Type: URINE SPECIMEN Ordering Facility: [facility] Address: [address] [place] [address] Performed By: #### 2 106-3 #### [facility] CLIA [id number] [address] ALP [Catalytic activity/Vol] 129 U/L High 34-123 [facility] Comment on above: Order Comment: Speci men Type: URINE SPECIMEN Ordering Facility: [facility] Address: [address] [place] [address] Performed By: #### 2 106-3 #### [facility] CLIA [id number] [address] ALT With P-5'-P [Catalytic activity/Vol] 32 U/L Normal 7-38 [facility] Comment on above: Order Comment: Speci men Type: URINE SPECIMEN Ordering Facility: [facility] Address: [address] [place] [address] Performed By: #### 2 106-3 #### [facility] CLIA [id number] [address] Anion gap [Moles/Vol] 8 mmol/L Normal 8-15 [facility] Comment on above: Order Comment: Speci men Type: URINE SPECIMEN Ordering Facility: [facility] Address: [address] [place] [address] Performed By: #### 2 106-3 #### [facility] CLIA [id number] [address] [place] AST With P-5'-P [Catalytic activity/Vol] 23 U/L Normal 13-35 [facility] Comment on above: Order Comment: Speci men Type: URINE SPECIMEN Ordering Facility: [facility] Address: [address] [place] [address] Performed By: #### 2 106-3 #### [facility] CLIA [id number] [address] [place] Bilirubin [Mass/Vol] 0.3 mg/dL Normal 0.2-1.3 [facility] Comment on above: Order Comment: Speci men Type: URINE SPECIMEN Ordering Facility: [facility] Address: [address] [place] [address] Performed By: #### 2 106-3 #### [facility] CLIA [id number] [address] [place] Calcium [Mass/Vol] 10.1 mg/dL Normal 8.5-10.2 [facility] Comment on above: Order Comment: Speci men Type: URINE SPECIMEN Ordering Facility: [facility] Address: [address] [place] [address] Performed By: #### 2 106-3 #### [facility] CLIA [id number] [address] [place] [address] [place] Chloride [Moles/Vol] 105 mmol/L Normal 98-107 [facility] Comment on above: Order Comment: Speci men Type: URINE SPECIMEN Ordering Facility: [facility] Address: [address] [place] [address] Performed By: #### 2 106-3 #### [facility] CLIA [id number] [address] [place] [address] [place] CO2 [Moles/Vol] 27 mmol/L Normal 22-30 [facility] Comment on above: Order Comment: Speci men Type: URINE SPECIMEN Ordering Facility: [facility] Address: [address] [place] [address] Performed By: #### 2 106-3 #### [facility] CLIA [id number] [address] [place] [facility] Creatinine [Mass/Vol] 0.67 mg/dL Normal 0.58-0.96 [facility] Comment on above: Order Comment: Speci men Type: URINE SPECIMEN Ordering Facility: [facility] Address: [address] [place] [address] Performed By: #### 2 106-3 #### [facility] CLIA [id number] [address] Creatinine and Glomerular filtration rate.predicted panel (S/P/Bld) 107 mL/min/1.73m??? Normal >=60 [facility] Comment on above: Order Comment: Speci men Type: URINE SPECIMEN Ordering Facility: [facility] Address: [address] [place] [address] Result Comment: Lena mated Glomerular Filtration Rate (eGFR) is calculated using the 2020 CKD-EPI creatinine equation. This equation utilizes serum creatinine, sex, and age as parameters. The creatinine assay has traceable calibration to isotope dilution-mass spectrometry. Refer to KDIGO guidelines for clinical interpretation. In patients with unstable renal function, e.g. those with acute kidney injury, the eGFR may not accurately reflect actual GFR. Performed By: #### 2 106-3 #### [facility] CLIA [id number] [address] [place] Glucose [Mass/Vol] 155 mg/dL High 74-99 [facility] Comment on above: Order Comment: Speci men Type: URINE SPECIMEN Ordering Facility: [facility] Address: [address] [place] [address] Result Comment: The [place] [employer] (ADA) provides guidance for cutoff values for fasting glucose and random glucose. The ADA defines fasting as no caloric intake for at least 8 hours. Fasting plasma glucose results between 100 to 125 [...] Standards of Medical Care in Diabetes 2016, [employer]. Diabetes Care. 2016.39(Suppl 1). Performed By: #### 2 106-3 #### [facility] CLIA [id number] 1 [place] [address] [place] Potassium [Moles/Vol] 3.8 mmol/L Normal 3.7-5.1 [facility] Comment on above: Order Comment: Speci men Type: URINE SPECIMEN Ordering Facility: [facility] Address: [address] [place] [address] Performed By: #### 2 106-3 #### [facility] CLIA [id number] 1 [place] [address] [place] Protein [Mass/Vol] 6.5 g/dL Normal 6.3-8.0 [facility] Comment on above: Order Comment: Speci men Type: URINE SPECIMEN Ordering Facility: [facility] Address: [address] [place] [address] Performed By: #### 2 106-3 #### [facility] CLIA [id number] [address] [place] Sodium [Moles/Vol] 140 mmol/L Normal 136-144 [facility] Comment on above: Order Comment: Speci men Type: URINE SPECIMEN Ordering Facility: [facility] Address: [address] [place] [address] Performed By: #### 2 106-3 #### [facility] CLIA [id number] 1 [place] [address] [place] Urea nitrogen [Mass/Vol] 13 mg/dL Normal 7-21 [facility] Comment on above: Order Comment: Speci men Type: URINE SPECIMEN Ordering Facility: [facility] Address: [address] [place] [address] Performed By: #### 2 106-3 #### [facility] CLIA [id number] [address] [facility] ED NOTEon 06-02-2024 ED NOTE HNO ID: [id number] Author: MARIA LUISA GREENE RN Service: ? Author Type: Registered Nurse Type: ED Notes Filed: 06/02/2024 09:27 Note Text: Pt given discharge instructions, pt questions answered and pt denies any further questions at time of discharge. Pt ambulates out of dept with a steady gait. 1 rx sent to [facility] [place] [facility] ED NOTE HNO ID: [id number] Author: EVANGELIST PERRY RN Service: Emergency Medicine Author Type: Registered Nurse Type: ED Notes Filed: 06/03/2024 09:25 Note Text: Patient Call Back Information How are you doing ? better Did we appropriately manage your pain? Yes Did you understand your discharge instructions? Yes Did you get your prescriptions filled? Yes Were you able to make a follow-up appointment with your physician? Yes Were you comfortable during your stay here? Yes Did a member of the ER nursing team round on you during your visit? Yes You will receive a patient satisfaction survey in the mail in the nest 2 weeks, please take the time to fill out the survey as your input from your ER visit is very important to us. Yes Can we do anything else to help you? No [facility] ED NOTE HNO ID: [id number] Author: MARIA LUISA GREENE RN Service: ? Author Type: Registered Nurse Type: ED Notes Filed: 06/02/2024 08:27 Note Text: Patient informed: the name of medication, why we are giving it, possible side effects, what they may expect to feel, and was offered a chance to ask questions, prior to the administration of toradol [facility] ED NOTE HNO ID: [id number] Author: ALIE ARTIS RN Service: Emergency Medicine Author Type: Registered Nurse Type: ED Notes Filed: 06/02/2024 06:57 Note Text: Pt to ED with c/o left flank pain and abd pain since . Denies any N/V, pt reports she had recent US that shows kidney stones in kidney. [facility] ED PROV NOTEon 06-02-2024 ED PROV NOTE HNO ID: [id number] Author: ALBINA DOOLEY DO Service: Emergency Medicine Author Type: Physician Type: ED Provider Notes Filed: 06/02/2024 09:29 Note Text: ED Provider Note Patient Name: Sid Lezama : 1975 SERVICE DATE: 06/02/24 History Patient presents with: Abdominal Pain Flank Pain Sid Lezama is a 48 year old female with history of multiple chronic medical problems who presents with Abdominal Pain and Flank Pain. - Symptoms began . - Severity: moderate - Timing: intermittent initially, constant since this morning - Quality: sore - Symptoms are associated with LLQ abdominal pain. - Symptoms are not associated with chest pain, chills, fever, nausea, rash, shortness of breath, vomiting, dysuria, hematuria. Patient presents stating that she may have a kidney stone. She states that she started with left flank pain intermittently on . She states been constant since 5 am this morning She states that she did have an ultrasound on showing 3 mm calcification in her left kidney. She states that she also has left lower abdominal pain. No dysuria or hematuria. No fever or chills. No nausea or vomiting. No chest pain or shortness of breath. She does have a history of Crohn's with an ileostomy and reports normal output from her ostomy. 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 Lumbago 01/10/2007 Myalgia and myositis, unspecified Pain management Dr Stern Nonalcoholic fatty liver disease 08/24/2007 Other and unspecified hyperlipidemia 01/10/2007 PMH - PAST MEDICAL HISTORY OF Cx scarred to post vag wall/difficult exam Pneumonia, organism unspecified(486) 01/10/2007 Regional enteritis of large intestine (HCC) 08/07/2006 Retention of urine, unspecified 01/01/2007 Rheumatoid arthritis(714.0) Dr. Mc, [facility] Type II or unspecified type diabetes mellitus without mention of complication, not stated as uncontrolled Ureterolithiasis 07/18/2019 PAST SURGICAL HISTORY Procedure Laterality Date ADENOIDECTOMY PRIMARY Adenoidectomy ARTHROSCOPY KNEE DIAGNOSTIC W/WO SYNOVIAL BX SPX 1989 Arthroscopy, knee, left BRNCHSC INCL FLUOR GDNCE DX W/CELL WASHG SPX 01/2007 Bronchoscopy EGD 05/02/2023 EPIDURAL 2011 multiple ones done by Dr. Beckett ILEOSCOPY 05/02/2023 PAST SURGICAL HISTORY OF 06/2000 ILEOSTOMY/COLECTOMY PAST SURGICAL HISTORY OF 1993 CRYOCAUTERY/ MILD DYSPLASIA PAST SURGICAL HISTORY OF 03/2006 Abdominal abscess with anal fistula PRCTECT COMPL W/STOT/TOT COLCT W/VENEER JOINER BXS 12/05/2006 AP endoanal proctectomy SHOULDER ARTHROSCOPY/SURGERY Left 05/06/2020 Rotator cuff debridement, subacromial decompression/arthropla sty TONSILLECTOMY PRIMARY/SECONDARY Tonsillectomy FAMILY HISTORY Problem Relation Age of Onset Alcohol/Drug Mother Hypertension Mother COPD other (vascular disease) Mother other (sleep apnea) Mother other (heart murmur) Mother Alcohol/Drug Father Cancer Father liver Asthma Brother Hypertension Daughter Diabetes Maternal Grandmother Stroke Maternal Grandmother Heart Maternal Grandmother Emphysema Paternal Grandmother Diabetes Paternal Grandfather Macular Degen Paternal Grandfather Anesthesia Problems No Family History Social History Tobacco Use Smoking status: Former Packs/day: 1.00 Years: 16.00 Additional pack years: 0.00 Total pack years: 16.00 Types: Cigarettes Quit date: 12/04/2006 Years since quittin.5 Smokeless tobacco: Never Vaping Use Vaping Use: Never used Substance and Sexual Activity Alcohol use: No Drug use: No Sexual activity: Yes Partners: Male control/protection: I.U.D. ALLERGIES Allergen Reactions Azithromycin Unknown thinks a rash Dilaudid [Hydromorp* Swelling migraines Levemir [Insulin De* Other: See Comments Urine turned dark and smelly Methadone Swelling migraine Morphine Swelling migraines Remicade [Inflixima* Intolerance, Rash broke out in blisters with the 6th dose. Ultram [Tramadol Hc* Swelling migraines Review of Systems Constitutional: Negative for chills and fever. Respiratory: Negative for shortness of breath. Cardiovascular: Negative for chest pain. Gastrointestinal: Positive for abdominal pain (left lower). Negative for diarrhea, nausea and vomiting. Genitourinary: Positive for flank pain. Negative for dysuria and hematuria. Skin: Negative for rash. Neurological: Negative for weakness and numbness. Psychiatric/Behavioral: Negative for agitation (more content not included)... Normal [facility] HCG Preg Ur Qlon 06-02-2024 HCG ( test) Ql (U) Negative Normal Negative [facility] Comment on above: Order Comment: Joelle argueta Type: BLOOD SPECIMEN Ordering Facility: [facility] Address: [address] [place] [address] Result Comment: This test is intended to aid in the early detection of . Very dilute urine samples, as indicated by a low specific gravity, may not contain printing sales representative levels of hCG. This test detects intact hCG only. This test does not reliably detect hCG degradation products, including free-beta subunit and beta-core fragment. Therefore, this test may show reduced reactivity in urine after 8 weeks gestation. A number of conditions other than , including trophoblastic disease and certain non-trophoblastic neoplasms cause elevated levels of hCG. As with any assay employing mouse antibodies, the possibility exists for interference by human anti-mouse antibodies (HAMA) in the specimen. The test provides a presumptive diagnosis for . Performed By: #### 2 4323-8 #### [facility] CLIA [id number] [address] [place] [address] [place] Urinalysis complete panel (U )on 06-02-2024 Bacteria LM.HPF (Urine sed) [#/Area] Moderate Abnormal None Seen [facility] Comment on above: Order Comment: Joelle argueta Type: URINE SPECIMEN Ordering Facility: [facility] Address: [address] [place] [address] Performed By: #### 2 4356-8 #### [facility] CLIA [id number] [address] [place] [address] [place] Bilirubin Ql (U) Negative Normal Negative [facility] Comment on above: Order Comment: Joelle argueta Type: URINE SPECIMEN Ordering Facility: [facility] Address: [address] [place] [address] Performed By: #### 2 4356-8 #### [facility] CLIA [id number] [address] [place] [address] [facility] CALCIUM OXALATE CRYSTALS (UA) Moderate Abnormal None Seen [facility] Comment on above: Order Comment: Speci men Type: URINE SPECIMEN Ordering Facility: [facility] Address: [address] [place] [address] Performed By: #### 2 4356-8 #### [facility] CLIA [id number] [address] [place] [address] [facility] [place] Clarity (Unsp spec) Clear Normal Clear [facility] Comment on above: Order Comment: Speci men Type: URINE SPECIMEN Ordering Facility: [facility] Address: [address] [place] [address] Performed By: #### 2 4356-8 #### [facility] CLIA [id number] [address] [place] [address] [facility] [place] Color (U) Yellow Normal Yellow [facility] Comment on above: Order Comment: Speci men Type: URINE SPECIMEN Ordering Facility: [facility] Address: [address] [place] [address] Performed By: #### 2 4356-8 #### [facility] CLIA [id number] [address] [place] [address] [facility] [place] Epithelial cells LM.HPF (Urine sed) [#/Area] Few Normal [facility] Comment on above: Order Comment: Speci men Type: URINE SPECIMEN Ordering Facility: [facility] Address: [address] [place] [address] Performed By: #### 2 4356-8 #### [facility] CLIA [id number] [address] [place] [address] [facility] [place] Glucose Test strip (U) [Mass/Vol] 2+ Abnormal Negative [facility] Comment on above: Order Comment: Speci men Type: URINE SPECIMEN Ordering Facility: [facility] Address: [facility] [place] [address] Performed By: #### 2 4356-8 #### [facility] CLIA [id number] [address] [place] [address] [place] Hemoglobin Ql (U) Negative Normal Negative [facility] Comment on above: Order Comment: Speci men Type: URINE SPECIMEN Ordering Facility: [facility] Address: [address] [place] [address] Performed By: #### 2 4356-8 #### [facility] CLIA [id number] [address] [place] [address] [place] Ketones Ql (U) Negative Normal Negative [facility] Comment on above: Order Comment: Speci men Type: URINE SPECIMEN Ordering Facility: [facility] Address: [address] [place] [address] Performed By: #### 2 4356-8 #### [facility] CLIA [id number] [address] [place] [address] [facility] [place] Leukocyte esterase Test strip Ql (U) Negative Normal Negative [facility] Comment on above: Order Comment: Speci men Type: URINE SPECIMEN Ordering Facility: [facility] Address: [address] [place] [address] Performed By: #### 2 4356-8 #### [facility] CLIA [id number] [address] [place] [address] [place] Nitrite Ql (U) Negative Normal Negative [facility] Comment on above: Order Comment: Speci men Type: URINE SPECIMEN Ordering Facility: [facility] Address: [address] [place] [address] Performed By: #### 2 4356-8 #### [facility] CLIA [id number] [address] [place] [address] [facility] [place] pH (U) 6.0 [pH] Normal 5.0-8.0 [facility] Comment on above: Order Comment: Speci men Type: URINE SPECIMEN Ordering Facility: [facility] Address: [address] [place] [address] Performed By: #### 2 4356-8 #### [facility] CLIA [id number] [address] [place] [address] [facility] Protein (U) [Mass/Vol] Negative Normal Negative [facility] Comment on above: Order Comment: Speci men Type: URINE SPECIMEN Ordering Facility: [facility] Address: [address] [place] [address] Performed By: #### 2 4356-8 #### [facility] CLIA [id number] [address] RBC LM.HPF (Urine sed) [#/Area] 0-3 /HPF Normal 0-3 /HPF [facility] Comment on above: Order Comment: Speci men Type: URINE SPECIMEN Ordering Facility: [facility] Address: [address] [place] [address] Performed By: #### 2 4356-8 #### [facility] CLIA [id number] [address] Specific gravity (U) [Rel density] 1.025 Normal 1.005-1.030 [facility] Comment on above: Order Comment: Speci men Type: URINE SPECIMEN Ordering Facility: [facility] Address: [address] [place] [address] Performed By: #### 2 4356-8 #### [facility] CLIA [id number] [address] Urobilinogen Ql (U) 0.2 EU/dL Normal 0.2-1.0 EU/dL [facility] Comment on above: Order Comment: Speci men Type: URINE SPECIMEN Ordering Facility: [facility] Address: [address] [place] [address] Performed By: #### 2 4356-8 #### [facility] CLIA [id number] [address] WBC LM.HPF (Urine sed) [#/Area] 0-5 /HPF Normal 0-5 /HPF [facility] Comment on above: Order Comment: Speci men Type: URINE SPECIMEN Ordering Facility: [facility] Address: [facility] [place] [id number] Performed By: #### 2 4356-8 #### [facility] CLIA [id number] [address] [place] [address] [place] [facility] US KIDNEY/BLADDERon 05-30-20 24 US KIDNEY/BLADDER * * *Final Report* * * DATE OF EXAM: May 30 2024 11:13AM WRU 1055 - US KIDNEY/BLADDER / PROCEDURE REASON: Nephrolithiasis * * * * Physician Interpretation * * * * EXAMINATION: RENAL ULTRASOUND CLINICAL HISTORY: 48 years old Female with Nephrolithiasis TECHNIQUE: Sonography of the kidneys and urinary bladder was performed. Images were obtained and stored in a permanent archive. MQ: UR_1 COMPARISON: CT 04/08/2022 RESULT: Right Kidney: -Renal length: 12.2 cm -Parenchyma: Normal parenchymal echogenicity. Normal parenchymal thickness. -Collecting system: No hydronephrosis. -Calculus: No echogenic, shadowing calculus. -Lesion: None. Left Kidney: -Renal length: 11.9 cm -Parenchyma: Normal parenchymal echogenicity. Normal parenchymal thickness. -Collecting system: No hydronephrosis. -Calculus: 3 mm echogenic focus with equivocal shadowing. -Lesion: None. Bladder: Empty and not visualized. IMPRESSION: No hydronephrosis. Questionable tiny LEFT intrarenal calculus versus artifact. Profile Saw Operator: SANTOS Transcribe Date/Time: May 31 2024 5:37P Dictated by : JOSE BRANDON DO This examination was interpreted and the report reviewed and electronically signed by: JOSE BRANDON DO on May 31 2024 5:39PM EST [id number] Normal [facility] CNOVon 05-20-2024 CNOV Office Visit (ENDOMN ) SID LEZAMA ([id number]) 1975 F Date Time Provider Department 05/20/24 10:00 AM ALIE STALLWORTH ENDOMN During your visit today, we recorded the following information about you: Pulse Blood pressure Weight 70/minute 129/71 71.2 kg Sara Currie 05/20/2024 11:22 AM Signed Alie Stallworth APRN.CNP 05/20/2024 11:21 AM Addendum Decrease Ozempic to 1mg Gianfranco 3 Follow up in 6 months Have your labs drawn prior to your next visit Thank you for seeing me today, Alie Stallworth APRN.LORI Thank you for choosing the [facility] Department of Endocrinology, Diabetes and Metabolism. Did you know that you need to call 48 hours in advance of your scheduled visit, if you are unable to make your appointment? The Endocrinology and Metabolism [facility] thanks you for your commitment, because patients not showing to their appointment results in a lost opportunity for patients to receive [facility] health care at the [facility]. To Cancel an appointment, please choose one of the following: - Call the Appointment Call Center at [phone] - From [employer], Go to Appointments - Cancel Appts If cancelling, consider your need to reschedule to prevent further delays in your care. 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 Believed to have passed the kidney stone while in the ED. Was discharged to home from the ED. STEROIDS/BONE Has ileostomy bag Has Crohn's - no steroids for this, has ileostomy Has primary hyperparathyroidism - hypercalcemia, hypercalciuria BMD done in 04/2017 showed lowest Z score -2.3 BMD in 2020 Lowest T score - 1.8 Pertinent decrease (though different machine? bone mineral density of the femoral neck is 0.635 ) 10-year Fracture Risk (FRAX): Major osteoporotic fracture risk 6.% Hip fracture risk 0.9% BUT has hyperparathyroidism Lucy discussed briefly in the past as possibility but then PTH seemed to be a player so deferred Lucy Saw Dr. Teresa 2022 for parathyroid surgery eval Patient deferred, prefers holistic approach INTERVAL HISTORY History of relatedmedications: Metformin started first Januvia started 2011 Glyburide caused lows 50s Lantus Januvia 50 mg daily - stopped when Trulicity started Nov 2018 Trulicity 1.5 mg, mild abd discomfort after eating Farxiga 5 mg - getting yeast infections, stopped Was on atorvastatin, stopped, wanting to go holistic Red yeast rice - stopped Metformin 1000 mg BID - she wanted to come off this and was able Lantus - 25 units morning - just started last night since she received steroid injection yesterday Current related medications: Ozempic 2 mg weekly - not taking regularly Calcium intake in diet/supplements: takes nutritional shake, yogurt, cheese Vitamin D intake: has supplements from holistic provider IUD Mirena 2022 last insertion Supplements from holistic provider Freestyle Gianfranco 3 steroid injections to neck (C3) and back L4, L5, S1, S5 - less often now, local pain med doctor at [place], patient not yet wanting second opinion. last injection was on February 14. This has caused her blood sugar to increase, she has started taking the lantus 25 units at bedtime which seems to help. 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 Normal [facility] HEMOGLOBIN A1C (POC)on 05-20 HbA1c (Bld) [Mass fraction] 7.0 % Abnormal 4.3 - 5.6 % [facility] Comment on above: Location:[facility], [address] [place] [address], [facility] Point of care (POC) Hemoglobin A1c (HGBA1C) testing is intended to assess glucose control and provide a management tool for patients known to have diabetes and their healthcare providers. Target HGBA1C levels may depend on specific clinical circumstances. POC HGBA1C is not intended for use as a diagnostic or screening test; laboratory-based testing should be used for diagnostic purposes. The following information is supplemental and may not be applicable to specific diabetes management situations: The POC device casework manager provides a normal range of 4.2% to 6.5% for the HGBA1C POC test. However, the [employer] guidelines indicate that patients with HGBA1C in the range of 5.7% to 6.4% are at increased risk for development of diabetes and that intervention by lifestyle modification may be beneficial. A HGBA1C level greater than or equal to 6.5% is considered diagnostic of diabetes, pending confirmatory testing. Use of HGBA1C testing to evaluate glucose control may not be appropriate for patients with hemoglobin variants or other conditions (e.g. anemia) that alter red blood cell lifespan. Interpretation and review of laboratory results Abnormal [facility] 25-hydroxyvitamin D3 [Mass/V ol]on 05-17-2024 Interpretation and review of laboratory results Normal [facility] The reference range interval was based on an analysis of samples from healthy adults and may not pertain to children from 0-[address] [facility] VITAMIN D 25 HYDROXYon 05-17 25-hydroxyvitamin D3 [Mass/Vol] 51.5 ng/mL 31.0 - 80.0 ng/mL [facility] Comment on above: Classification of 25 [place] Vitamin D status: Deficiency/Insufficiency: < or = 30 ng/ml. Sufficiency/Optimal Levels: 31-80 ng/mL Toxicity: > 100 ng/mL. Test performed by chemiluminescent immunoassay. Calcium.ionized [Moles/Vol]o n 05-15-2024 Calcium.ionized (Bld) [Mass/Vol] 1.27 mmol/L 1.08 - 1.30 mmol/L [facility] Calcium.ionized adjusted to pH 7.4 (Bld) [Moles/Vol] 1.40 mmol/L High 1.08 - 1.30 mmol/L [facility] Interpretation and review of laboratory results Abnormal [facility] No Panel Informationon 05-15 Interpretation and review of laboratory results Normal [facility] PTH INTACTon 05-15-2024 Parathyrin.intact [Mass/Vol] 46 pg/mL 15 - 65 pg/mL [facility] UA DIP, URINE (POC)on 2023 BILIRUBIN UA (POCT) Negative Negative [facility] CLARITY UA (POCT) Clear [facility] COLOR UA (POCT) Yellow [facility] GLUCOSE UA (POCT) 100 mg/dL Abnormal Negative [facility] Hemoglobin Ql (U) Negative Negative [facility] Interpretation and review of laboratory results Abnormal [facility] KETONE UA (POCT) Negative Negative mg/dL [facility] LEUKOCYTES UA (POCT) Negative Negative [facility] NITRITE UA (POCT) Negative Negative [facility] PH UA (POCT) 6.5 4.5 - 8.0 [facility] Protein Ql (U) Negative Negative mg/dL [facility] SPECIFIC GRAVITY UA (POCT) 1.015 1.005 - 1.030 [facility] UROBILINOGEN UA (POCT) 0.2 Normal E.U./d L [facility] Location:[facility], [address] [place], [place], [address] [facility] POINT OF CARE [facility] URIC ACIDon 05-15-2024 Urate [Mass/Vol] 4.6 mg/dL 2.5 - 6.6 mg/dL [facility] Basic metabolic 2000 panelon 05-06-2024 Anion gap [Moles/Vol] 13 mmol/L Normal 8-15 Akr on [facility] Comment on above: Order Comment: Speci men Type: BLOOD SPECIMEN Ordering Facility: [facility] Address: [address] [place] [address] Performed By: #### 2 4323-8 #### [facility] [facility] CLIA [id number] [address] [place] [address] [place] Calcium [Mass/Vol] 10.7 mg/dL High 8.5-10.2 [facility] Comment on above: Order Comment: Speci men Type: BLOOD SPECIMEN Ordering Facility: [facility] Address: [address] [place] [address] Performed By: #### 2 4323-8 #### [facility] CLIA [id number] [address] [place] [address] [place] Chloride [Moles/Vol] 102 mmol/L Normal 98-107 [facility] Comment on above: Order Comment: Speci men Type: BLOOD SPECIMEN Ordering Facility: [facility] Address: [address] [place] [address] Performed By: #### 2 4323-8 #### [facility] CLIA [id number] [address] [place] [address] [place] CO2 [Moles/Vol] 23 mmol/L Normal 22-30 [facility] Comment on above: Order Comment: Speci men Type: BLOOD SPECIMEN Ordering Facility: [facility] Address: [address] [place] [address] Performed By: #### 2 4323-8 #### [facility] [place] CLIA [id number] [address] [place] [address] [place] Creatinine [Mass/Vol] 0.62 mg/dL Normal 0.58-0.96 [facility] Comment on above: Order Comment: Speci men Type: BLOOD SPECIMEN Ordering Facility: [facility] Address: [address] [place] [address] Performed By: #### 2 4323-8 #### [facility] CLIA [id number] [address] [place] [address] [place] Creatinine and Glomerular filtration rate.predicted panel (S/P/Bld) 109 mL/min/1.73m??? Normal >=60 [facility] Comment on above: Order Comment: Joelle argueta Type: BLOOD SPECIMEN Ordering Facility: [facility] Address: [address] [place] [address] Result Comment: Lena mated Glomerular Filtration Rate (eGFR) is calculated using the 2020 CKD-EPI creatinine equation. This equation utilizes serum creatinine, sex, and age as parameters. The creatinine assay has traceable calibration to isotope dilution-mass spectrometry. Refer to KDIGO guidelines for clinical interpretation. In patients with unstable renal function, e.g. those with acute kidney injury, the eGFR may not accurately reflect actual GFR. Performed By: #### 2 4323-8 #### [facility] CLIA [id number] [address] [place] [address] [place] Glucose [Mass/Vol] 237 mg/dL High 74-99 [facility] Comment on above: Order Comment: Joelle argueta Type: BLOOD SPECIMEN Ordering Facility: [facility] Address: [address] [place] [address] Result Comment: The [place] [employer] (ADA) provides guidance for cutoff values for fasting glucose and random glucose. The ADA defines fasting as no caloric intake for at least 8 hours. Fasting plasma glucose results between 100 to 125 [...] Standards of Medical Care in Diabetes 2016, [place] [employer]. Diabetes Care. 2016.39(Suppl 1). Performed By: #### 2 4323-8 #### [facility] CLIA [id number] [address] [place] [address] [place] Potassium [Moles/Vol] 4.4 mmol/L Normal 3.7-5.1 [facility] Comment on above: Order Comment: Speci men Type: BLOOD SPECIMEN Ordering Facility: [facility] Address: [address] [place] [address] Performed By: #### 2 4323-8 #### [facility] CLIA [id number] [address] [place] [address] [place] Sodium [Moles/Vol] 138 mmol/L Normal 136-144 [facility] Comment on above: Order Comment: Speci men Type: BLOOD SPECIMEN Ordering Facility: [facility] Address: [address] [place] [address] Performed By: #### 2 4323-8 #### [facility] CLIA [id number] [address] [place] [address] [place] Urea nitrogen [Mass/Vol] 12 mg/dL Normal 7-21 [facility] Comment on above: Order Comment: Speci men Type: BLOOD SPECIMEN Ordering Facility: [facility] Address: [address] [place] [address] Performed By: #### 2 4323-8 #### [facility] CLIA [id number] [address] [place] [address] [place] CBC W Auto Differential pane l (Bld)on 05-06-2024 Basophils (Bld) [#/Vol] 0.05 10*3/uL Normal <0.11 [facility] Comment on above: Order Comment: Speci men Type: BLOOD SPECIMEN Ordering Facility: [facility] Address: [address] [place] [address] Performed By: #### 5 7021-8 #### [facility] CLIA [id number] [address] [place] Basophils/100 WBC (Bld) 0.5 % Normal [facility] Comment on above: Order Comment: Speci men Type: BLOOD SPECIMEN Ordering Facility: [facility] Address: [address] [place] [address] Performed By: #### 5 7021-8 #### [facility] [place] CLIA [id number] [address] [place] Differential cell count method Nom (Bld) Auto Normal [facility] Comment on above: Order Comment: Speci men Type: BLOOD SPECIMEN Ordering Facility: [facility] Address: [address] [place] [address] Performed By: #### 5 7021-8 #### [facility] CLIA [id number] [address] [place] [address] [facility] [place] Eosinophils (Bld) [#/Vol] 10*3/uL Normal <0.46 [facility] Comment on above: Order Comment: Speci men Type: BLOOD SPECIMEN Ordering Facility: [facility] Address: [address] [place] [address] Performed By: #### 5 7021-8 #### [facility] CLIA [id number] [address] [place] [id number] [facility] Eosinophils/100 WBC (Bld) 0.1 % Normal [facility] Comment on above: Order Comment: Speci men Type: BLOOD SPECIMEN Ordering Facility: [facility] Address: [address] [place] [address] Performed By: #### 5 7021-8 #### [facility] CLIA [id number] [address] [place] [address] [place] Erythrocyte distribution width (RBC) [Ratio] 12.3 % Normal 11.5-15.0 [facility] Comment on above: Order Comment: Speci men Type: BLOOD SPECIMEN Ordering Facility: [facility] Address: [address] [place] [address] Performed By: #### 5 7021-8 #### [facility] [place] [facility] CLIA [id number] [address] [place] [address] [facility] [place] Hematocrit (Bld) [Volume fraction] 44.8 % Normal 36.0-46.0 [facility] Comment on above: Order Comment: Speci men Type: BLOOD SPECIMEN Ordering Facility: [facility] Address: [address] [place] [address] Performed By: #### 5 7021-8 #### [facility] CLIA [id number] [address] [place] [address] [place] Hemoglobin (Bld) [Mass/Vol] 15.2 g/dL Normal 11.5-15.5 [facility] Comment on above: Order Comment: Speci men Type: BLOOD SPECIMEN Ordering Facility: [facility] Address: [address] [place] [address] Performed By: #### 5 7021-8 #### [facility] CLIA [id number] [address] [place] [address] [place] Immature granulocytes (Bld) [#/Vol] 10*3/uL Normal <0.10 [facility] Comment on above: Order Comment: Speci men Type: BLOOD SPECIMEN Ordering Facility: [facility] Address: [address] [place] [address] Performed By: #### 5 7021-8 #### [facility] [place] [facility] CLIA [id number] [address] [place] [address] [place] Immature granulocytes/100 WBC (Bld) 0.1 % Normal [facility] Comment on above: Order Comment: Speci men Type: BLOOD SPECIMEN Ordering Facility: [facility] Address: [address] [place] [address] Performed By: #### 5 7021-8 #### [facility] CLIA [id number] [address] [place] [address] [place] Lymphocytes (Bld) [#/Vol] 1.03 10*3/uL Normal 1.00-4.00 [facility] Comment on above: Order Comment: Speci men Type: BLOOD SPECIMEN Ordering Facility: [facility] Address: [address] [place] [address] Performed By: #### 5 7021-8 #### [facility] CLIA [id number] [address] [place] [address] [place] Lymphocytes/100 WBC (Bld) 10.2 % Normal [facility] Comment on above: Order Comment: Speci men Type: BLOOD SPECIMEN Ordering Facility: [facility] Address: [address] [place] [address] Performed By: #### 5 7021-8 #### [facility] [place] [facility] CLIA [id number] [address] MCH (RBC) [Entitic mass] 29.5 pg Normal 26.0-34.0 [facility] Comment on above: Order Comment: Speci men Type: BLOOD SPECIMEN Ordering Facility: [facility] Address: [address] [place] [address] Performed By: #### 5 7021-8 #### [facility] [place] [facility] CLIA [id number] [address] [facility] MCHC (RBC) [Mass/Vol] 33.9 g/dL Normal 30.5-36.0 [facility] Comment on above: Order Comment: Speci men Type: BLOOD SPECIMEN Ordering Facility: [facility] Address: [address] [place] [address] Performed By: #### 5 7021-8 #### [facility] [place] [facility] CLIA [id number] [address] [place] [address] [place] [facility] MCV (RBC) [Entitic vol] 86.8 fL Normal 80.0-100.0 [facility] Comment on above: Order Comment: Speci men Type: BLOOD SPECIMEN Ordering Facility: [facility] Address: [address] [place] [address] Performed By: #### 5 7021-8 #### [facility] [place] [facility] CLIA [id number] [address] [place] [address] [facility] Monocytes (Bld) [#/Vol] 0.24 10*3/uL Normal <0.87 [facility] Comment on above: Order Comment: Speci men Type: BLOOD SPECIMEN Ordering Facility: [facility] Address: [address] [place] [address] Performed By: #### 5 7021-8 #### [facility] [place] [facility] CLIA [id number] [address] [place] [address] [place] Monocytes/100 WBC (Bld) 2.4 % Normal [facility] Comment on above: Order Comment: Speci men Type: BLOOD SPECIMEN Ordering Facility: [facility] Address: [address] [place] [address] Performed By: #### 5 7021-8 #### [facility] [place] [facility] CLIA [id number] [address] [place] [address] [place] Neutrophils (Bld) [#/Vol] 8.80 10*3/uL High 1.45-7.50 [facility] Comment on above: Order Comment: Speci men Type: BLOOD SPECIMEN Ordering Facility: [facility] Address: [address] [place] [address] Performed By: #### 5 7021-8 #### [facility] [place] [facility] CLIA [id number] [address] [place] [address] [place] Neutrophils/100 WBC (Bld) 86.7 % Normal [facility] Comment on above: Order Comment: Speci men Type: BLOOD SPECIMEN Ordering Facility: [facility] Address: [address] [place] [address] Performed By: #### 5 7021-8 #### [facility] [place] [facility] CLIA [id number] [address] [place] [address] [place] Nucleated RBC (Bld) [#/Vol] Normal [facility] Comment on above: Order Comment: Speci men Type: BLOOD SPECIMEN Ordering Facility: [facility] Address: [address] [place] [address] Performed By: #### 5 7021-8 #### [facility] [place] [facility] CLIA [id number] [address] [place] [address] [place] Nucleated RBC/100 WBC (Bld) [Ratio] Normal [facility] Comment on above: Order Comment: Speci men Type: BLOOD SPECIMEN Ordering Facility: [facility] Address: [address] [place] [address] Performed By: #### 5 7021-8 #### [facility] [place] [facility] CLIA [id number] [address] [place] [address] [place] Platelet mean volume (Bld) [Entitic vol] 10.5 fL Normal 9.0-12.7 [facility] Comment on above: Order Comment: Speci men Type: BLOOD SPECIMEN Ordering Facility: [facility] Address: [address] [place] [address] Performed By: #### 5 7021-8 #### [facility] [place] [facility] CLIA [id number] [address] [place] [address] [place] Platelets (Bld) [#/Vol] 226 10*3/uL Normal 150-400 [facility] Comment on above: Order Comment: Speci men Type: BLOOD SPECIMEN Ordering Facility: [facility] Address: [address] [place] [address] Performed By: #### 5 7021-8 #### [facility] CLIA [id number] [address] [place] [address] [place] RBC (Bld) [#/Vol] 5.16 10*6/uL Normal 3.90-5.20 [facility] Comment on above: Order Comment: Speci men Type: BLOOD SPECIMEN Ordering Facility: [facility] Address: [address] [place] [address] Performed By: #### 5 7021-8 #### [facility] [place] [facility] CLIA [id number] [address] [place] [address] [place] WBC (Bld) [#/Vol] 10.14 10*3/uL Normal 3.70-11.00 [facility] Comment on above: Order Comment: Speci men Type: BLOOD SPECIMEN Ordering Facility: [facility] Address: [address] [place] [address] Performed By: #### 5 7021-8 #### [facility] [place] [facility] CLIA [id number] [address] [place] [address] [facility] ED NOTEon 05-06-2024 ED NOTE HNO ID: [id number] Author: EVANGELIST PERRY RN Service: Emergency Medicine Author Type: Registered Nurse Type: ED Notes Filed: 05/07/2024 11:04 Note Text: Patient Call Back Information How are you doing ? better Did we appropriately manage your pain? Yes Did you understand your discharge instructions? Yes Did you get your prescriptions filled? Yes Were you able to make a follow-up appointment with your physician? Yes Were you comfortable during your stay here? Yes Did a member of the ER nursing team round on you during your visit? Yes You will receive a patient satisfaction survey in the mail in the nest 2 weeks, please take the time to fill out the survey as your input from your ER visit is very important to us. Yes Can we do anything else to help you? No [facility] ED NOTE HNO ID: [id number] Author: ALAYNA MONK RN Service: Nursing Author Type: Registered Nurse Type: ED Notes Filed: 05/06/2024 15:44 Note Text: Patient informed: the name of medication, why we are giving it, possible side effects, what they may expect to feel, and was offered a chance to ask questions, prior to the administration of NaCl, Toradol, Zofran [facility] ED NOTE HNO ID: [id number] Author: ALAYNA MONK RN Service: Nursing Author Type: Registered Nurse Type: ED Notes Filed: 05/06/2024 15:31 Note Text: Pt arrives with c/o I have a kidney stone. Last diagnosed about 4 months ago. Pt reports pain starting this morning. Took 2 percocet at home, last one was at about 1230. Pt also reports, This is about the 6th one I have had. Denies being referred to Urology. [facility] ED PROV NOTEon 05-06-2024 ED PROV NOTE HNO ID: [id number] Author: RYAN GARNER MD Service: Emergency Medicine Author Type: Physician Type: ED Provider Notes Filed: 05/06/2024 20:10 Note Text: ED Provider Note Patient Name: Sid Lezama : 1975 SERVICE DATE: 05/06/24 History Patient presents with: Flank Pain HPI 48-year-old female with history as below presenting with concerns for kidney stone. History is provided by patient. Reports acute onset of symptoms this afternoon. Reports she is having sharp colicky pain in the left flank consistent with prior kidney stones. Last 1 being in January of this year. Reports that it is radiating to her left lower quadrant. Having urinary urgency, hesitancy. No dysuria. Having nausea vomiting x 2 episodes as nonbloody, nonbilious. No fevers or chills. 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 Lumbago 01/10/2007 Myalgia and myositis, unspecified Pain management Dr Stern Nonalcoholic fatty liver disease 08/24/2007 Other and unspecified hyperlipidemia 01/10/2007 PMH - PAST MEDICAL HISTORY OF Cx scarred to post vag wall/difficult exam Pneumonia, organism unspecified(486) 01/10/2007 Regional enteritis of large intestine (HCC) 08/07/2006 Retention of urine, unspecified 01/01/2007 Rheumatoid arthritis(714.0) Dr. Mc, [facility] Type II or unspecified type diabetes mellitus without mention of complication, not stated as uncontrolled Ureterolithiasis 07/18/2019 PAST SURGICAL HISTORY Procedure Laterality Date ADENOIDECTOMY PRIMARY Adenoidectomy ARTHROSCOPY KNEE DIAGNOSTIC W/WO SYNOVIAL BX SPX 1989 Arthroscopy, knee, left [facility] INCL FLUOR GDNCE DX W/CELL WASHG SPX 01/2007 Bronchoscopy EGD 05/02/2023 EPIDURAL 2011 multiple ones done by Dr. Beckett ILEOSCOPY 05/02/2023 PAST SURGICAL HISTORY OF 06/2000 ILEOSTOMY/COLECTOMY PAST SURGICAL HISTORY OF 1993 CRYOCAUTERY/ MILD DYSPLASIA PAST SURGICAL HISTORY OF 03/2006 Abdominal abscess with anal fistula PRCTECT COMPL W/STOT/TOT COLCT W/VENEER JOINER BXS 12/05/2006 AP endoanal proctectomy SHOULDER ARTHROSCOPY/SURGERY Left 05/06/2020 Rotator cuff debridement, subacromial decompression/arthropla sty TONSILLECTOMY PRIMARY/SECONDARY Tonsillectomy FAMILY HISTORY Problem Relation Age of Onset Alcohol/Drug Mother Hypertension Mother COPD other (vascular disease) Mother other (sleep apnea) Mother other (heart murmur) Mother Alcohol/Drug Father Cancer Father liver Asthma Brother Hypertension Daughter Diabetes Maternal Grandmother Stroke Maternal Grandmother Heart Maternal Grandmother Emphysema Paternal Grandmother Diabetes Paternal Grandfather Macular Degen Paternal Grandfather Anesthesia Problems No Family History Social History Tobacco Use Smoking status: Former Packs/day: 1.00 Years: 16.00 Additional pack years: 0.00 Total pack years: 16.00 Types: Cigarettes Quit date: 12/04/2006 Years since quittin.4 Smokeless tobacco: Never Vaping Use Vaping Use: Never used Substance and Sexual Activity Alcohol use: No Drug use: No Sexual activity: Yes Partners: Male control/protection: I.U.D. ALLERGIES Allergen Reactions Azithromycin Unknown thinks a rash Dilaudid [Hydromorp* Swelling migraines Levemir [Insulin De* Other: See Comments Urine turned dark and smelly Methadone Swelling migraine Morphine Swelling migraines Remicade [Inflixima* Intolerance, Rash broke out in blisters with the 6th dose. Ultram [Tramadol Hc* Swelling migraines Review of Systems As per HPI Physical Exam Vitals [05/06/24 1526] BP Pulse Temp Temp src Resp SpO2 Weight Height 164/69 63 36.5 ?C (97.7 ?F) -- 13 100 % 71.7 kg (158 lb) 1.499 m (4' 11) Physical Exam Patient obviously uncomfortable. Vital signs stable. She is afebrile on triage. Hemodynamically stable and afebrile Heart RRR w/o murmurs; Distal pulses intact Lungs CTAB Abd soft, NT, ND. No guarding. No peritoneal signs. No CVA tenderness or flank pain on exam Patient moves all 4 extremities spontaneously and without deficit Diagnostic Testing ED Labs Ordered and Reviewed BASIC METABOLIC PANEL - Abnormal; Notable for the following components: Result Value Ref Range Glucose 237 (*) 74 - 99 mg/dL Calcium, Total 10.7 (*) 8.5 - 10.2 mg/dL All other components within normal limits COMPLETE BLOOD COUNT AND DIFFERENTIAL - Abnormal; Notable for the following components: Abs Neut 8.80 (*) 1.45 - 7.5 (more content not included)... Normal [facility] Urinalysis complete panel (U )on 05-06-2024 Bilirubin Ql (U) Negative Normal Negative [facility] Comment on above: Order Comment: Speci men Type: URINE SPECIMEN Ordering Facility: [facility] Address: [address] [place] [address] Performed By: #### 2 106-3 #### [facility] CLIA [id number] [address] Clarity (Unsp spec) Slightly Cloudy Abnormal Clear [facility] Comment on above: Order Comment: Speci men Type: URINE SPECIMEN Ordering Facility: [facility] Address: [address] [place] [address] Performed By: #### 2 106-3 #### [facility] CLIA [id number] [address] Color (U) Yellow Normal Yellow [facility] Comment on above: Order Comment: Speci men Type: URINE SPECIMEN Ordering Facility: [facility] Address: [address] [place] [address] Performed By: #### 2 106-3 #### [facility] CLIA [id number] [address] Epithelial cells LM.HPF (Urine sed) [#/Area] Few Normal [facility] Comment on above: Order Comment: Speci men Type: URINE SPECIMEN Ordering Facility: [facility] Address: [address] [place] [address] Performed By: #### 2 106-3 #### [facility] CLIA [id number] [address] Glucose Test strip (U) [Mass/Vol] 2+ Abnormal Negative [facility] Comment on above: Order Comment: Speci men Type: URINE SPECIMEN Ordering Facility: [facility] Address: [address] [place] [address] Performed By: #### 2 106-3 #### [facility] CLIA [id number] [address] [place] Hemoglobin Ql (U) 2+ Abnormal Negative [facility] Comment on above: Order Comment: Speci men Type: URINE SPECIMEN Ordering Facility: [facility] Address: [address] [place] [address] Performed By: #### 2 106-3 #### [facility] CLIA [id number] [address] [place] Ketones Ql (U) 2+ Abnormal Negative [facility] Comment on above: Order Comment: Speci men Type: URINE SPECIMEN Ordering Facility: [facility] Address: [address] [place] [address] Performed By: #### 2 106-3 #### [facility] CLIA [id number] [address] [place] Leukocyte esterase Test strip Ql (U) Negative Normal Negative [facility] Comment on above: Order Comment: Speci men Type: URINE SPECIMEN Ordering Facility: [facility] Address: [address] [place] [address] Performed By: #### 2 106-3 #### [facility] CLIA [id number] [address] [place] Nitrite Ql (U) Negative Normal Negative [facility] Comment on above: Order Comment: Speci men Type: URINE SPECIMEN Ordering Facility: [facility] Address: [address] [place] [address] Performed By: #### 2 106-3 #### [facility] CLIA [id number] [address] [place] pH (U) 6.0 [pH] Normal 5.0-8.0 [facility] Comment on above: Order Comment: Speci men Type: URINE SPECIMEN Ordering Facility: [facility] Address: [address] [place] [address] Performed By: #### 2 106-3 #### [facility] CLIA [id number] [address] [place] Protein (U) [Mass/Vol] Negative Normal Negative [facility] Comment on above: Order Comment: Speci men Type: URINE SPECIMEN Ordering Facility: [facility] Address: [address] [place] [address] Performed By: #### 2 106-3 #### [facility] CLIA [id number] [address] RBC LM.HPF (Urine sed) [#/Area] /[HPF] Abnormal 0-3 /HPF [facility] Comment on above: Order Comment: Speci men Type: URINE SPECIMEN Ordering Facility: [facility] Address: [address] [place] [address] Performed By: #### 2 106-3 #### [facility] CLIA [id number] [address] Specific gravity (U) [Rel density] 1.020 Normal 1.005-1.030 [facility] Comment on above: Order Comment: Speci men Type: URINE SPECIMEN Ordering Facility: [facility] Address: [address] [place] [address] Performed By: #### 2 106-3 #### [facility] CLIA [id number] [address] Urobilinogen Ql (U) 0.2 EU/dL Normal 0.2-1.0 EU/dL [facility] Comment on above: Order Comment: Speci men Type: URINE SPECIMEN Ordering Facility: [facility] Address: [address] [place] [address] Performed By: #### 2 106-3 #### [facility] CLIA [id number] [address] WBC LM.HPF (Urine sed) [#/Area] 0-5 /HPF Normal 0-5 /HPF [facility] Comment on above: Order Comment: Speci men Type: URINE SPECIMEN Ordering Facility: [facility] Address: [address] [place] [address] Performed By: #### 2 106-3 #### [facility] CLIA [id number] [address] HEMOGLOBIN A1C (POC)on 02-15 HbA1c (Bld) [Mass fraction] 6.5 % Abnormal 4.3 - 5.6 % [facility] - Drug toxicology Ordered By: Michelle Stern on 02-06-2024 Amphetamines Ql (U) Negative <1000 ng/mL [facility] Benzodiazepines Ql (U) Negative < 200 ng/mL [facility] Cannabinoids Screen Ql (U) Negative < 50 ng/mL [facility] Cocaine Ql (U) Negative < 300 ng/mL [facility] Opiates Ql (U) Positive < 300 ng/mL [facility] No Panel InformationOrdered By: Michelle Stern on 02-06-2024 MDMA (Ecstasy) Screen Negative < 500 ng/mL [facility] Miscellaneous Test See comment [facility] Comment on above: [id number] 6+OXYCODONE-B UND (ng/mL) DRUG RESULT SCREEN CUTOFF____ Amphetamines,Urine Negative ng/mL 1000 Amphetamine test includes Amphetamine and Methamphetamine.Barbiturates Negative ng/mL 200Benzodiazepines Negative ng/mL 200Cannabinoid Negative ng/mL 20Cocaine (Metab) Negative ng/mL 300Opiates Negative ng/mL 300 Opiates test includes Codeine, Morphine, Hydromorphone, Hydrocodone. Oxycodone/Oxymorphone,Urine POSITIVE ng/mL 300 Test includes Oxycodone and Oxymorphone. Oxycodone POSITIVE Oxycodone Conf,MS,UR >3000 ng/mL 300 Oxymorphone POSITIVE Oxymorphone Conf,MS,UR 2709 ng/mL 300 TESTING PERFORMED AT [facility]. ORIGINAL REPORT ON FILE IN LAB CONTAINS ADDITIONAL TEST SITE INFORMATION. Urine Barbiturates Screen Negative < 200 ng/mL [facility] Urine Drug Screen Comment [facility] Comment on above: CONFIRMATORY TESTING FOR ALL POSITIVE URINE DRUG SCREENRESULTS WILL ONLY BE SENT OUT UPON PHYSICIAN ORDER. [facility]ISTA Urine Drug Screen methods provide only preliminaryanalytical test results. A more specific alternate chemicalmethod must be used in order to obtain a confirmedanalytical result. Gas chromatography/mass spectrometery(GC/MS) is the preferred confirmatory method. Clinicalconsideration and professional judgement should be appliedto any drug of abuse test result, particularly whenpreliminary positive results are used. URINE TCA TESTING MUST BE ORDERED SEPARATELY. USE TESTMNEMONIC: [facility] Urine Methadone Screen Negative < 300 ng/mL [facility] Urine phencyclidine (PCP) de tectionOrdered By: Michelle Stern on 02-06-2024 Phencyclidine Ql (U) Negative < 25 ng/mL [facility] Absolute lymphocyte countOrd ered By: Kaleb Preston on 01-19-2024 Lymphocytes Auto (Unsp spec) [#/Vol] 1.41 10*3/uL 0.83-4.51 [facility] Automated lymphocyte count a s percentage of total leukocytesOrdered By: Kaleb Preston on 01-19-2024 Lymphocytes/100 WBC Auto (Unsp spec) 18.2 % 19-41 [facility] Basophil percentageOrdered B y: Kaleb Preston on 01-19-2024 Basophil percentage 0-5 SEEN /hpf 0-5 [facility] Basophils/100 WBC (Bld) 0.9 % 0-1 [facility] Chloride [Moles/Vol] 110 mmol/L 98-107 [facility] Eosinophils/100 WBC (Bld) 1.4 % 0-5 [facility] Glucose [Mass/Vol] 199 mg/dL 74-106 [facility] Comment on above: Fasting Glucose resu lt greater than or equal to 126 mg/dL suggests DIABETES MELLITUS per A.D.A. criteria. Hemoglobin (Bld) [Mass/Vol] 15.4 g/dL 12.0-15.0 [facility] Monocytes/100 WBC (Bld) 4.4 % 0-10 [facility] Neutrophils (Bld) [#/Vol] 5.8 10*3/uL 2.0-7.7 [facility] Neutrophils/100 WBC (Bld) 74.8 % 47-70 [facility] Potassium [Moles/Vol] 3.6 mmol/L 3.5-5.1 [facility] Sodium [Moles/Vol] 141 mmol/L 136-145 [facility] WBC (Bld) [#/Vol] 7.8 10*3/uL 4.4-11.0 [facility] Bilirubin Test strip Ql (U)O rdered By: Kaleb Preston on 01-19-2024 Bilirubin Ql (U) Negative Negative [facility] Determination of erythrocyte mean corpuscular volume (MCV)Ordered By: Kaleb Preston on 01-19-2024 MCV (RBC) [Entitic vol] 86.2 fL 81-99 [facility] Erythrocyte distribution wid th ratioOrdered By: Kaleb Preston on 01-19-2024 Erythrocyte distribution width (RBC) [Ratio] 12.6 % 11.6-14.6 [facility] Erythrocyte distribution wid th standard deviationOrdered By: Kaleb Preston on 01-19-2024 Erythrocyte distribution width (RBC) [Entitic vol] 39.2 fL 35.1-43.9 [facility] Hematocrit Auto (Bld) [Volum e fraction]Ordered By: Kaleb Preston on 01-19-2024 Hematocrit (Bld) [Volume fraction] 47.5 % 37-47 [facility] Immature granulocytes/100 WB C Auto (Bld)Ordered By: Kaleb Preston on 01-19-2024 Immature granulocytes/100 WBC (Bld) 0.300 % 0.0-0.9 [facility] Comment on above: IG% - Immature Granu locytes (promyelocytes, myelocytes and metamyelocytes) > 1% indicates that a LEFT SHIFT is Present. Ketones Test strip Ql (U)Ord ered By: Kaleb Preston on 01-19-2024 Ketones Ql (U) 15 mg/dl Negative [facility] Laboratory - Chemistry and C hemistry - challengeOrdered By: Kaleb Preston on 01-19-2024 CO2 [Moles/Vol] 24.0 mmol/L 21.0-32.0 [facility] Urea nitrogen/Creatinine [Mass ratio] 15.0 mg/mg 10-20 [facility] - Hematology and Cell countsOrdered By: Kaleb Preston on 01-19-2024 MCH (RBC) [Entitic mass] 27.9 pg 27.0-32.0 [facility] MCHC (RBC) [Mass/Vol] 32.4 g/dL 32-36 [facility] Nucleated RBC/100 WBC (Bld) [Ratio] 0 % 0-5 [facility] Platelet mean volume (Bld) [Entitic vol] 10.3 fL 6.2-12.0 [facility] Platelets (Bld) [#/Vol] 243 10*3/uL 150-450 [facility] Mucus LM Ql (Urine sed)Order ed By: Kaleb Preston on 01-19-2024 Mucus Ql (Urine sed) 2+ /hpf [facility] Nitrite Test strip Ql (U)Ord ered By: Kaleb Preston on 01-19-2024 Nitrite Ql (U) Negative Negative [facility] No Panel InformationOrdered By: Kaleb Preston on 01-19-2024 Urine RBC 0-5 SEEN /hpf 0-5 [facility] Estimated Creatinine Clearance Calc 77.18 ml/min [facility] Estimated GFR (MDRD) Amer 98 mL/min >60 [facility] Comment on above: GFR Calc Estimated GFR (MDRD) Non-Af Amer 81 mL/min >60 [facility] Comment on above: Non- GFR Calc Protein Test strip Ql (U)Ord ered By: Kaleb Preston on 01-19-2024 Protein Ql (U) 30 mg/dl Negative [facility] RBC Auto (Bld) [#/Vol]Ordere d By: Kaleb Preston on 01-19-2024 RBC (Bld) [#/Vol] 5.51 10*6/uL 4.2-5.4 [facility] Serum or plasma calcium mendoza urement (mass/volume)Ordered By: Kaleb Preston on 01-19-2024 Calcium [Mass/Vol] 10.1 mg/dL 8.5-10.1 [facility] Serum or plasma choriogonado tropin detectionOrdered By: Kaleb Preston on 01-19-2024 HCG ( test) Ql Negative [facility] Serum or plasma creatinine m easurement (mass/volume)Ordered By: Kaleb Preston on 01-19-2024 Creatinine [Mass/Vol] 0.80 mg/dL 0.55-1.02 [facility] Comment on above: The validity of the calculated GFR & GFRAA in patients over 70 years has not been determined. Clinical correlation is essential. Serum or plasma urea nitroge n measurement (mass/volume)Ordered By: Kaleb Preston on 01-19-2024 Urea nitrogen [Mass/Vol] 12 mg/dL 7-18 [facility] Squamous epithelial cells de tection in urine sediment by light microscopyOrdered By: Kaleb Preston on 01-19-2024 Epithelial cells.squamous LM Ql (Urine sed) 5-10 SEEN /hpf 5-10 [facility] Thin prep Papanicolaou smear with manual screeningOrdered By: Kaleb Preston on 01-19-2024 Thin prep Papanicolaou smear with manual screening 7 5-15 [facility] Urine blood detectionOrdered By: Kaleb Preston on 01-19-2024 RBC Ql (U) 25 /ul Negative [facility] Urine clarityOrdered By: Yury Preston on 01-19-2024 Clarity (U) Sl. Cloudy Clear [facility] Urine color determinationOrd ered By: Kaleb Preston on 01-19-2024 Color (U) Yellow Yellow [facility] Urine glucose detectionOrder ed By: Kaleb Preston on 01-19-2024 Glucose Ql (U) 100 mg/dl Normal [facility] Urine leukocyte esterase det ection by dipstickOrdered By: Kaleb Preston on 01-19-2024 Leukocyte esterase Test strip Ql (U) 25 /ul Negative [facility] Urine pHOrdered By: Kaleb kaminski on 01-19-2024 pH (U) 5.0 [pH] 5.0 - 8.0 [facility] Urine sediment bacteria coun t by microscopy (number/high power field)Ordered By: Kalbe Preston on 01-19-2024 Bacteria LM.HPF (Urine sed) [#/Area] 1 /[HPF] None Seen [facility] Urine specific gravity measu rementOrdered By: Kaleb Preston on 01-19-2024 Specific gravity (U) [Rel density] 1.025 1.002-1.030 [facility] Urine urobilinogen measureme ntOrdered By: Kaleb Preston on 01-19-2024 Urobilinogen Ql (U) Normal mg/dl Normal [facility] - Drug toxicology Ordered By: Michelle Stern on 01-09-2024 Amphetamines Ql (U) Negative <1000 ng/mL [facility] Benzodiazepines Ql (U) Negative < 200 ng/mL [facility] Cannabinoids Screen Ql (U) Negative < 50 ng/mL [facility] Cocaine Ql (U) Negative < 300 ng/mL [facility] Opiates Ql (U) Negative < 300 ng/mL [facility] No Panel InformationOrdered By: Michelle Stern on 01-09-2024 MDMA (Ecstasy) Screen Negative < 500 ng/mL [facility] Urine Barbiturates Screen Negative < 200 ng/mL [facility] Urine Drug Screen Comment [facility] Comment on above: CONFIRMATORY TESTING FOR ALL POSITIVE URINE DRUG SCREENRESULTS WILL ONLY BE SENT OUT UPON PHYSICIAN ORDER. [facility]IST[facility] Urine Drug Screen methods provide only preliminaryanalytical test results. A more specific alternate chemicalmethod must be used in order to obtain a confirmedanalytical result. Gas chromatography/mass spectrometery(GC/MS) is the preferred confirmatory method. Clinicalconsideration and professional judgement should be appliedto any drug of abuse test result, particularly whenpreliminary positive results are used. URINE TCA TESTING MUST BE ORDERED SEPARATELY. USE TESTMNEMONIC: [facility] Urine Methadone Screen Negative < 300 ng/mL [facility] Urine phencyclidine (PCP) de tectionOrdered By: Michelle Stern on 01-09-2024 Phencyclidine Ql (U) Negative < 25 ng/mL [facility] XR Chest PA and Lateralon IMPRESSION: No acute radiographic abnormality. Profile Saw Operator: PSCB Transcribe Date/Time: Nov 07 2023 5:06P Dictated by : DANE COX MD This examination was interpreted and the report reviewed and electronically signed by: DANE COX MD on Nov 07 2023 5:07PM [facility] DIVISION OF RADIOLOGY * * *Final Report* * * DATE OF EXAM: Nov 07 2023 4:26PM WOX 5291 - XR CHEST 2V FRONTAL/LAT / PROCEDURE REASON: Acute cough * * * * Physician Interpretation * * * * EXAMINATION: CHEST RADIOGRAPH (2 VIEW FRONTAL & LATERAL) CLINICAL HISTORY: Acute cough MQ: XC2_6 EXAM DATE/TIME: 11/07/2023 4:26 PM COMPARISON: 09/24/2021 RESULT: Lines, tubes, and devices: None. Lungs and pleura: No consolidation. No lung mass. No pleural effusion. No pneumothorax. Cardiomediastinal silhouette: Normal cardiomediastinal silhouette. Bones and soft tissues: Unremarkable. DIVISION OF RADIOLOGY Provider, [facility] - 11/07/2023 * * *Final Report* * * DATE OF EXAM: Nov 07 2023 4:26PM WOX 5291 - XR CHEST 2V FRONTAL/LAT / PROCEDURE REASON: Acute cough * * * * Physician Interpretation * * * * EXAMINATION: CHEST RADIOGRAPH (2 VIEW FRONTAL & LATERAL) CLINICAL HISTORY: Acute cough MQ: XC2_6 EXAM DATE/TIME: 11/07/2023 4:26 PM COMPARISON: 09/24/2021 RESULT: Lines, tubes, and devices: None. Lungs and pleura: No consolidation. No lung mass. No pleural effusion. No pneumothorax. Cardiomediastinal silhouette: Normal cardiomediastinal silhouette. Bones and soft tissues: Unremarkable. IMPRESSION IMPRESSION: No acute radiographic abnormality. Profile Saw Operator: SANTOS Transcribe Date/Time: Nov 07 2023 5:06P Dictated by : DANE COX MD This examination was interpreted and the report reviewed and electronically signed by: DANE COX MD on Nov 07 2023 5:07PM EST [facility] Radiology Study observation (narrative) [facility] XR Chest PA and LateralOrder ed By: [facility] Provider on 11-07-2023 [facility] XR WRIST GENERAL 3V PA/LAT/O BL LEFTon 10-04-2023 [facility] Wrist - left PA and Later al and Obliqueon 10-04-2023 IMPRESSION: Vascular channel versus occult fracture in the first metacarpal bone. Consider follow-up. Profile Saw Operator: SANTOS Transcribe Date/Time: Oct 04 2023 3:58P Dictated by : SRAVAN PALMER MD This examination was interpreted and the report reviewed and electronically signed by: SRAVAN PALMER MD on Oct 04 2023 4:01PM EST DIVISION OF RADIOLOGY * * *Final Report* * * DATE OF EXAM: Oct 04 2023 3:55PM WOX 5270 - XR WRIST 3V PA/LAT/OBL LT / PROCEDURE REASON: Left wrist pain * * * * Physician Interpretation * * * * EXAM TITLE: XR WRIST 3V PA/LAT/OBL LT EXAM DATE/TIME: 10/04/2023 3:55 PM COMPARISON: None. CLINICAL INDICATION/HISTORY: Fall. TECHNIQUE: PA, lateral and oblique views of left wrist are presented. FINDINGS: No subluxation visualized. Linear lucency noted in the distal portion of the proximal first metacarpal bone. The carpal bones and distal radius/ulna appear intact. The joint spaces are well preserved. The mineralization of the bones is normal. There is no significant soft tissue swelling. DIVISION OF RADIOLOGY Provider, Andriy [facility] - 10/04/2023 * * *Final Report* * * DATE OF EXAM: Oct 04 2023 3:55PM WOX 5270 - XR WRIST 3V PA/LAT/OBL LT / PROCEDURE REASON: Left wrist pain * * * * Physician Interpretation * * * * EXAM TITLE: XR WRIST 3V PA/LAT/OBL LT EXAM DATE/TIME: 10/04/2023 3:55 PM COMPARISON: None. CLINICAL INDICATION/HISTORY: Fall. TECHNIQUE: PA, lateral and oblique views of left wrist are presented. FINDINGS: No subluxation visualized. Linear lucency noted in the distal portion of the proximal first metacarpal bone. The carpal bones and distal radius/ulna appear intact. The joint spaces are well preserved. The mineralization of the bones is normal. There is no significant soft tissue swelling. IMPRESSION IMPRESSION: Vascular channel versus occult fracture in the first metacarpal bone. Consider follow-up. Profile Saw Operator: PSCB Transcribe Date/Time: Oct 04 2023 3:58P Dictated by : SRAVAN PALMER MD This examination was interpreted and the report reviewed and electronically signed by: SRAVAN PALMER MD on Oct 04 2023 4:01PM EST [facility] Radiology Study observation (narrative) [facility] XR Wrist - left PA and Later al and ObliqueOrdered By: [facility] Provider on 10-04-2023 [facility] No Panel Informationon 09-25 [facility] HEMOGLOBIN A1C (POC)on 07-24 HbA1c (Bld) [Mass fraction] 7.4 % Abnormal 4.2 - 5.6 % [facility] UA DIP, URINE (POC)on 2022 BILIRUBIN UA (POCT) Negative Negative [facility] CLARITY UA (POCT) Clear [facility] COLOR UA (POCT) Yellow [facility] GLUCOSE UA (POCT) 250 mg/dL Abnormal Negative mg/dL [facility] HEMOGLOBIN/BLOOD UA (POCT) Negative Negative [facility] KETONE UA (POCT) Negative Negative mg/dL [facility] LEUKOCYTES UA (POCT) Negative Negative [facility] NITRITE UA (POCT) Negative Negative [facility] PH UA (POCT) 5.5 4.5 - 8.0 [facility] Protein Ql (U) Negative Negative mg/dL [facility] SPECIFIC GRAVITY UA (POCT) 1.010 1.005 - 1.030 [facility] UROBILINOGEN UA (POCT) 0.2 E.U./dL Normal E.U./ dL [facility] EGD DIAGNOSTICon 05-02-2023 [facility] ILEOSCOPYon 05-02-2023 [facility] US ELBOW-INJECTION RT (POC) [place] USE ONLYon 01-27-2023 [facility] VIBRATION CONTROLLED TRANSIE NT ELASTOGRAPHY (POC)on 01-05-2023 [facility] 1,25-dihydroxyvitamin D3 [Ma ss/Vol]on 12-20-2022 1,25 Dihydroxy Vitamin Total 151.0 pg/mL High 19.9 - 79.3 pg/mL [facility] ALBUMIN BLDon 12-20-2022 Albumin [Mass/Vol] 4.5 g/dL 3.9 - 4.9 g/dL Cl [facility] ALKALINE PHOSPHATASEon 12-20 ALP [Catalytic activity/Vol] 107 U/L 34 - 123 U/L [facility] Basic metabolic 2000 panelon 12-20-2022 Anion gap [Moles/Vol] 11 mmol/L 9 - 18 mmol/L [facility] Calcium [Mass/Vol] 10.5 mg/dL High 8.5 - 10. 2 mg/dL [facility] Chloride [Moles/Vol] 99 mmol/L 97 - 105 mmol/L [facility] CO2 [Moles/Vol] 30 mmol/L 22 - 30 mmol/L [facility] Creatinine [Mass/Vol] 0.60 mg/dL 0.58 - 0.96 mg/dL [facility] Estimated Glomerular Filtration Rate 112 mL/min/1.73m >=60 mL/min/1.73m [facility] Glucose [Mass/Vol] 82 mg/dL 74 - 99 mg/dL [facility] Potassium [Moles/Vol] 3.4 mmol/L Low 3.7 - 5.1 mmol/L [facility] Sodium [Moles/Vol] 140 mmol/L 136 - 144 mmol/L [facility] Urea nitrogen [Mass/Vol] 9 mg/dL 7 - 21 mg/dL [facility] HEMOGLOBIN A1C (POC)on 12-20 HbA1c (Bld) [Mass fraction] 6.4 % 4.2 - 5.6 % [facility] PHOSPHORUS INORGANICon 12-20 Phosphate [Mass/Vol] 3.0 mg/dL 2.7 - 4.8 mg/dL [facility] PTH INTACT BLDon 12-20-2022 Parathyrin.intact [Mass/Vol] 51 pg/mL 15 - 65 pg/mL [facility] VITAMIN D 25 HYDROXYon 12-20 25-hydroxyvitamin D3 [Mass/Vol] 62.6 ng/mL 31.0 - 80.0 ng/mL [facility] CBC W Auto Differential pane l (Bld)on 12-15-2022 Basophils (Bld) [#/Vol] 0.07 10*3/uL <0.11 k/uL [facility] Basophils/100 WBC (Bld) 0.8 % [facility] Differential cell count method Nom (Bld) Auto [facility] Eosinophils (Bld) [#/Vol] 0.17 10*3/uL <0.46 k/uL [facility] Eosinophils/100 WBC (Bld) 1.8 % [facility] Erythrocyte distribution width (RBC) [Ratio] 12.7 % 11.5 - 15.0 % [facility] Hematocrit (Bld) [Volume fraction] 45.8 % 36.0 - 46.0 % [facility] Hemoglobin (Bld) [Mass/Vol] 15.3 g/dL 11.5 - 15.5 g/dL [facility] Immature granulocytes (Bld) [#/Vol] <0.10 k/uL [facility] Immature granulocytes/100 WBC (Bld) 0.2 % [facility] Lymphocytes (Bld) [#/Vol] 2.39 10*3/uL 1.00 - 4.00 k/uL [facility] Lymphocytes/100 WBC (Bld) 25.7 % [facility] MCH (RBC) [Entitic mass] 29.1 pg 26.0 - 34.0 pg [facility] MCHC (RBC) [Mass/Vol] 33.4 g/dL 30.5 - 36.0 g/dL [facility] MCV (RBC) [Entitic vol] 87.1 fL 80.0 - 100.0 fL [facility] Monocytes (Bld) [#/Vol] 0.66 10*3/uL <0.87 k/uL [facility] Monocytes/100 WBC (Bld) 7.1 % [facility] Neutrophils (Bld) [#/Vol] 5.98 10*3/uL 1.45 - 7.50 k/uL [facility] Neutrophils/100 WBC (Bld) 64.4 % [facility] Nucleated RBC (Bld) [#/Vol] <0.01 k/uL [facility] Nucleated RBC/100 WBC (Bld) [Ratio] 0.0 /100 WBC [facility] Platelet mean volume (Bld) [Entitic vol] 10.6 fL 9.0 - 12.7 fL [facility] Platelets (Bld) [#/Vol] 270 10*3/uL 150 - 400 k/uL [facility] RBC (Bld) [#/Vol] 5.26 10*6/uL High 3.90 - 5.2 0 m/uL [facility] WBC (Bld) [#/Vol] 9.29 10*3/uL 3.70 - 11. 00 k/uL [facility] HCG QUAL UR B/Oon 12-08-2022 status Negative neg - pos [facility] Quality Check Yes [facility] PELVIC US WHIon 12-08-2022 [facility] HCG QUAL UR B/Oon 12-01-2022 status Negative neg - pos [facility] Quality Check Yes [facility] PELVIC US WHIon 11-28-2022 [facility] Urinalysis complete panel (U )on 11-18-2022 Bilirubin Ql (U) Negative Negative [facility] Clarity (Unsp spec) Clear Clear [facility] Color (U) Colorless Yellow [facility] Glucose Test strip (U) [Mass/Vol] Negative Trace, Negative [facility] Hemoglobin Ql (U) Negative Negative, Trace Cl [facility] Ketones Ql (U) Negative Trace, Negative [facility] Leukocyte esterase Test strip Ql (U) Negative Negative, 25 Kim/mL [facility] Nitrite Ql (U) Negative Negative [facility] pH (U) 6.0 [pH] 5.0 - 8.0 [facility] Protein (U) [Mass/Vol] Negative Trace, Negati ve [facility] RBC LM.HPF (Urine sed) [#/Area] 0-3 /HPF 0-3 /HPF [facility] Specific gravity (U) [Rel density] 1.008 1.005 - 1.030 [facility] Urobilinogen Ql (U) Negative Negative [facility] WBC LM.HPF (Urine sed) [#/Area] 0-5 /HPF 0-5 /HPF [facility] BACTERIAL VAGINOSIS AMPLIFIC ATIONon 11-17-2022 Lactobacillus crispatus+gasseri+marley enii + Gardnerella vaginalis + Atopobium vaginae rRNA KENNETH+probe Ql (Vag fld) Negative Negative for bacterial vaginosis [facility] JUVENCIO / TRICHOMONAS AMPLIF ICATIONon 11-17-2022 C. glabrata RNA KENNETH+probe Ql (Vag fld) Negative Negative for Juvencio glabrata [facility] Juvencio albicans, C. dubliniensis, C. parapsilosis, and C. tropicalis RNA KENNETH+probe Ql (Vag fld) Negative Negative for Juvencio species [facility] T. vaginalis DNA KENNETH+probe Ql (Unsp spec) Negative Negative for Trichomonas vaginalis by amplification [facility] UA DIP, URINE (POC)on 2022 BILIRUBIN UA (POCT) Negative Negative [facility] CLARITY UA (POCT) Clear [facility] COLOR UA (POCT) Yellow [facility] GLUCOSE UA (POCT) Negative Negative mg/dL [facility] HEMOGLOBIN/BLOOD UA (POCT) Moderate Abnormal Negative [facility] KETONE UA (POCT) Negative Negative [facility] LEUKOCYTES UA (POCT) Negative Negative [facility] NITRITE UA (POCT) Negative Negative [facility] PH UA (POCT) 5.5 4.5 - 8.0 [facility] Protein Ql (U) Negative Negative mg/dL [facility] SPECIFIC GRAVITY UA (POCT) <=1.005 Abnormal 1.005 - 1.030 [facility] UROBILINOGEN UA (POCT) 0.2 E.U./dL Normal E.U./ dL [facility] US Upper extremity - righton 09-12-2022 IMPRESSION: MILD COMMON EXTENSOR TENDON TENDINOSIS WITH HYPEREMIA. NO TEAR. Profile Saw Operator: PSCB Transcribe Date/Time: Sep 12 2022 2:25P Dictated by : BRISA OCONNOR MD This examination was interpreted and the report reviewed and electronically signed by: BRISA OCONNOR MD on Sep 12 2022 3:52PM [facility] DIVISION OF RADIOLOGY * * *Final Report* * * DATE OF EXAM: Sep 12 2022 2:16PM [facility] 1134 - ELBOW RT / PROCEDURE REASON: Lateral epicondylitis of right elbow * * * * Physician Interpretation * * * * MSK_US RIGHT LATERAL ELBOW ULTRASOUND: CLINICAL INFORMATION:Chronic right lateral elbow pain. TECHNIQUE: Stevenson-scale real-time ultrasound of the lateral elbow with dynamic imaging and power Doppler examination was performed. Images were saved to the permanent image archive. v2-20. COMPARISON: None. FINDINGS: COMMON EXTENSOR TENDON: Tendinosis: Mild. Tearing: None. Power Doppler Examination: Mildly increased. Fascia: Normal thickness. Lateral Epicondyle: Small enthesophytes. LATERAL COLLATERAL LIGAMENT COMPLEX: The radial collateral ligament complex appears grossly intact. JOINT SPACE: Maintained. DIVISION OF RADIOLOGY Provider, [facility] - 09/12/2022 * * *Final Report* * * DATE OF EXAM: Sep 12 2022 2:16PM [facility] 1134 - ELBOW RT / PROCEDURE REASON: Lateral epicondylitis of right elbow * * * * Physician Interpretation * * * * MSK_US RIGHT LATERAL ELBOW ULTRASOUND: CLINICAL INFORMATION:Chronic right lateral elbow pain. TECHNIQUE: Stevenson-scale real-time ultrasound of the lateral elbow with dynamic imaging and power Doppler examination was performed. Images were saved to the permanent image archive. v2-20. COMPARISON: None. FINDINGS: COMMON EXTENSOR TENDON: Tendinosis: Mild. Tearing: None. Power Doppler Examination: Mildly increased. Fascia: Normal thickness. Lateral Epicondyle: Small enthesophytes. LATERAL COLLATERAL LIGAMENT COMPLEX: The radial collateral ligament complex appears grossly intact. JOINT SPACE: Maintained. IMPRESSION IMPRESSION: MILD COMMON EXTENSOR TENDON TENDINOSIS WITH HYPEREMIA. NO TEAR. Profile Saw Operator: PSCJeanine Transcribe Date/Time: Sep 12 2022 2:25P Dictated by : BRISA OCONNOR MD This examination was interpreted and the report reviewed and electronically signed by: BRISA OCONNOR MD on Sep 12 2022 3:52PM EST [facility] Radiology Study observation (narrative) [facility] US Upper extremity - rightOr dered By: [facility] Provider on 09-12-2022 [facility] Laboratory - Drug toxicology on 07-21-2022 Amphetamines Ql (U) Negative <1000 ng/mL [facility] Work Phone: Benzodiazepines Ql (U) Negative < 200 ng/mL [facility] Work Phone: Cannabinoids Screen Ql (U) Negative < 50 ng/mL [facility] Work Phone: Cocaine Ql (U) Negative < 300 ng/mL [facility] Work Phone: Opiates Ql (U) Positive < 300 ng/mL [facility] Work Phone: No Panel Informationon 07-21 MDMA (Ecstasy) Screen Negative < 500 ng/mL [facility] Work Phone: Urine Barbiturates Screen Negative < 200 ng/mL [facility] Work Phone: Urine Drug Screen Comment [facility] Work Phone: Comment on above: CONFIRMATORY TESTING FOR ALL POSITIVE URINE DRUG SCREENRESULTS WILL ONLY BE SENT OUT UPON PHYSICIAN ORDER. VISTA Urine Drug Screen methods provide only preliminaryanalytical test results. A more specific alternate chemicalmethod must be used in order to obtain a confirmedanalytical result. Gas chromatography/mass spectrometery(GC/MS) is the preferred confirmatory method. Clinicalconsideration and professional judgement should be appliedto any drug of abuse test result, particularly whenpreliminary positive results are used. URINE TCA TESTING MUST BE ORDERED SEPARATELY. USE TESTMNEMONIC: [facility] Urine Methadone Screen Negative < 300 ng/mL [facility] Work Phone: Urine phencyclidine (PCP) de tectionon 07-21-2022 Phencyclidine Ql (U) Negative < 25 ng/mL [facility] Work Phone: CT ENTEROGRAPHY W IVCONon [facility] Laboratory - Drug toxicology on 02-03-2022 Amphetamines Ql (U) Negative [facility] Work Phone: Benzodiazepines Ql (U) Negative [facility] Work Phone: Cannabinoids Screen Ql (U) Negative [facility] Work Phone: Cocaine Ql (U) Negative [facility] Work Phone: Opiates Ql (U) Negative [facility] Work Phone: No Panel Informationon 02-03 MDMA (Ecstasy) Screen Negative [facility] Work Phone: Miscellaneous Test See comment [facility] Work Phone: Comment on above: [id number] 6+OXYCODONE-B UND (ng/mL) DRUG RESULT SCREEN CUTOFF____ Amphetamines,Urine Negative ng/mL 1000 Amphetamine test includes Amphetamine and Methamphetamine.Barbiturates Negative ng/mL 200Benzodiazepines Negative ng/mL 200Cannabinoid Negative ng/mL 20Cocaine (Metab) Negative ng/mL 300Opiates Negative ng/mL 300 Opiates test includes Codeine, Morphine, Hydromorphone, Hydrocodone. Oxycodone/Oxymorphone,Urine Positive ng/mL 300 Test includes Oxydodone and Oxymorphone. Oxycodone PositiveOxycodone Conf,MS,UR 1684 ng/mL 300 Oxymorphone PositiveOxymorphone Conf,MS,UR 1563 ng/mL 300 TESTING PERFORMED AT [facility]. ORIGINAL REPORT ON FILE IN LAB CONTAINS ADDITIONAL TEST SITE INFORMATION. Urine Barbiturates Screen Negative [facility] Work Phone: Urine Drug Screen Comment [facility] Work Phone: Comment on above: CONFIRMATORY TESTING FOR ALL POSITIVE URINE DRUG SCREENRESULTS WILL ONLY BE SENT OUT UPON PHYSICIAN ORDER. VISTA Urine Drug Screen methods provide only preliminaryanalytical test results. A more specific alternate chemicalmethod must be used in order to obtain a confirmedanalytical result. Gas chromatography/mass spectrometery(GC/MS) is the preferred confirmatory method. Clinicalconsideration and professional judgement should be appliedto any drug of abuse test result, particularly whenpreliminary positive results are used. URINE TCA TESTING MUST BE ORDERED SEPARATELY. USE TESTMNEMONIC: [facility] Urine Methadone Screen Negative [facility] Work Phone: Urine phencyclidine (PCP) de tectionon 02-03-2022 Phencyclidine Ql (U) Negative [facility] Work Phone: XR Chest PA and Lateralon Radiology Study observation (narrative) [facility] IMPRESSION: Stable exam without acute findings. Profile Saw Operator: SANTOS Transcribe Date/Time: Sep 24 2021 10:18A Dictated by : SRAVAN PALMER MD This examination was interpreted and the report reviewed and electronically signed by: SRAVAN PALMER MD on Sep 24 2021 10:20AM [facility] DIVISION OF RADIOLOGY * * *Final Report* * * DATE OF EXAM: Sep 24 2021 10:14AM [facility] 5291 - XR CHEST 2V FRONTAL/LAT / PROCEDURE REASON: Encounter for long-term (current) use of medications * * * * Physician Interpretation * * * * EXAMINATION: CHEST RADIOGRAPH (2 VIEW FRONTAL & LATERAL) CLINICAL HISTORY: Encounter for long-term (current) use of medications MQ: XC2_6 EXAM DATE/TIME: 09/24/2021 10:14 AM COMPARISON: Chest x-ray on 05/27/2010. RESULT: Lines, tubes, and devices: None. Lungs and pleura: No consolidation. No lung mass. No pleural effusion. No pneumothorax. Cardiomediastinal silhouette: Stable cardiomediastinal silhouette. Bones and soft tissues: Unremarkable. DIVISION OF RADIOLOGY Provider, [facility] - 09/24/2021 * * *Final Report* * * DATE OF EXAM: Sep 24 2021 10:14AM [facility]291 - XR CHEST 2V FRONTAL/LAT / PROCEDURE REASON: Encounter for long-term (current) use of medications * * * * Physician Interpretation * * * * EXAMINATION: CHEST RADIOGRAPH (2 VIEW FRONTAL & LATERAL) CLINICAL HISTORY: Encounter for long-term (current) use of medications MQ: XC2_6 EXAM DATE/TIME: 09/24/2021 10:14 AM COMPARISON: Chest x-ray on 05/27/2010. RESULT: Lines, tubes, and devices: None. Lungs and pleura: No consolidation. No lung mass. No pleural effusion. No pneumothorax. Cardiomediastinal silhouette: Stable cardiomediastinal silhouette. Bones and soft tissues: Unremarkable. IMPRESSION IMPRESSION: Stable exam without acute findings. Profile Saw Operator: SANTOS Transcribe Date/Time: Sep 24 2021 10:18A Dictated by : SRAVAN PALMER MD This examination was interpreted and the report reviewed and electronically signed by: SRAVAN PALMER MD on Sep 24 2021 10:20AM EST [facility] XR Chest PA and LateralOrder ed By: [facility] Provider on 09-24-2021 [facility] No Panel Information [facility] Vital Signs Date Time Vital Sign Value Performing Clinician Facility 03-24-2025 09:51-0400 Body height 151.1 cm Scott Gold MD Work Phone: [facility] 03-24-2025 [id number] Body mass index (BMI) [Ratio] 33.19 kg/m2 Scott Gold MD Work Phone: [facility] 03-24-2025 09:51-0400 Body temperature 97.9 [degF] Scott Gold MD Work Phone: [facility] 03-24-2025 09:51-0400 Body weight 75.8 kg Scott Gold MD Work Phone: [facility] 03-24-2025 09:51-0400 Diastolic blood pressure 81 mm[Hg] Scott Gold MD Work Phone: [facility] 03-24-2025 09:51-0400 Heart rate 67 /min Scott Gold MD Work Phone: [facility] 03-24-2025 09:51-0400 Systolic blood pressure 131 mm[Hg] Scott Gold MD Work Phone: [facility] 10-25-2024 10:02-0500 Body height 155.5 cm Steve Juarez APRN.SQL ANALYST Work Phone: [facility] 10-25-2024 10:02-0500 Body mass index (BMI) [Ratio] 29.61 kg/m2 Steve Juarez APRN.SQL ANALYST Work Phone: [facility] 10-25-2024 10:02-0500 Body temperature 98.49 [degF] Steve Juarez APRN.SQL ANALYST Work Phone: [facility] 10-25-2024 10:02-0500 Body weight 71.6 kg Steve Juarez APRN.SQL ANALYST Work Phone: [facility] 10-25-2024 10:02-0500 Diastolic blood pressure 83 mm[Hg] Steve Juarez APRN.SQL ANALYST Work Phone: [facility] 10-25-2024 10:02-0500 Heart rate 68 /min Steve Juarez APRN.SQL ANALYST Work Phone: [facility] 10-25-2024 10:02-0500 Systolic blood pressure 136 mm[Hg] Steve Juarez PERMIT TECHNICIAN.SQL ANALYST Work Phone: [facility] 08-12-2024 12:35-0400 Body mass index (BMI) [Ratio] 30.69 kg/m2 Grayson Phan MD Work Phone: [facility] 08-12-2024 12:35-0400 Body temperature 97.59 [degF] Grayson Phan MD Work Phone: [facility] 08-12-2024 12:35-0400 Body weight 70.1 kg Grayson Phan MD Work Phone: [facility] 08-12-2024 12:35-0400 Diastolic blood pressure 76 mm[Hg] Grayson Phan MD Work Phone: [facility] 08-12-2024 12:35-0400 Heart rate 76 /min Grayson Phan MD Work Phone: [facility] 08-12-2024 12:35-0400 Respiratory rate 18 /min Grayson Phan MD Work Phone: [facility] 08-12-2024 12:35-0400 Systolic blood pressure 126 mm[Hg] Grayson Phan MD Work Phone: [facility] 06-17-2024 13:44-0400 Body height 151.1 cm Safia Jamil MD Work Phone: [facility] 06-17-2024 13:44-0400 Body mass index (BMI) [Ratio] 30.58 kg/m2 Safia Jamil MD Work Phone: [facility] 06-17-2024 13:44-0400 Body weight 69.85 kg Safia Jamil MD Work Phone: [facility] 06-17-2024 13:44-0400 Diastolic blood pressure 64 mm[Hg] Safia Jamil MD Work Phone: [facility] 06-17-2024 13:44-0400 Systolic blood pressure 110 mm[Hg] Safia Jamil MD Work Phone: [facility] 06-07-2024 13:07-0400 Body height 151.1 cm Steve Juarez PERMIT TECHNICIAN.SQL ANALYST Work Phone: [facility] 06-07-2024 13:07-0400 Body mass index (BMI) [Ratio] 30.65 kg/m2 Steve Juarez PERMIT TECHNICIAN.SQL ANALYST Work Phone: [facility] 06-07-2024 13:07-0400 Body weight 70 kg Steve Juarez PERMIT TECHNICIAN.SQL ANALYST Work Phone: [facility] 06-07-2024 13:07-0400 Diastolic blood pressure 76 mm[Hg] Steve Juarez PERMIT TECHNICIAN.SQL ANALYST Work Phone: [facility] 06-07-2024 13:07-0400 Heart rate 70 /min Steve Juarez PERMIT TECHNICIAN.SQL ANALYST Work Phone: [facility] 06-07-2024 13:07-0400 Systolic blood pressure 127 mm[Hg] Steve Juarez PERMIT TECHNICIAN.SQL ANALYST Work Phone: [facility] 05-20-2024 09:58-0400 Body mass index (BMI) [Ratio] 31.71 kg/m2 Alie Stallworth PERMIT TECHNICIAN.SQL ANALYST Work Phone: [facility] 05-20-2024 09:58-0400 Body weight 71.22 kg Alie Stallworth PERMIT TECHNICIAN.SQL ANALYST Work Phone: [facility] 05-20-2024 09:58-0400 Diastolic blood pressure 71 mm[Hg] Aile Stallworth PERMIT TECHNICIAN.SQL ANALYST Work Phone: [facility] 05-20-2024 09:58-0400 Heart rate 70 /min Alie Stallworth PERMIT TECHNICIAN.SQL ANALYST Work Phone: [facility] 05-20-2024 09:58-0400 Systolic blood pressure 129 mm[Hg] Alie Stallworth PERMIT TECHNICIAN.SQL ANALYST Work Phone: [facility] 02-16-2024 10:06-0400 Body weight 75.34 kg Alie Stallworth PERMIT TECHNICIAN.SQL ANALYST Work Phone: [facility] 02-16-2024 10:06-0400 Diastolic blood pressure 74 mm[Hg] Alie Stallworth APRN.SQL ANALYST Work Phone: [facility] 02-16-2024 10:06-0400 Heart rate 75 /min Alie Stallwroth PERMIT TECHNICIAN.SQL ANALYST Work Phone: [facility] 02-16-2024 10:06-0400 Systolic blood pressure 125 mm[Hg] Alie Stallworth APRN.SQL ANALYST Work Phone: [facility] 01-23-2024 08:55-0400 Body temperature 98.1 [degF] Grayson Phan MD Work Phone: [facility] 01-23-2024 08:55-0400 Body weight 76.16 kg Grayson Phan MD Work Phone: [facility] 01-23-2024 08:55-0400 Diastolic blood pressure 74 mm[Hg] Grayson Phan MD Work Phone: [facility] 01-23-2024 08:55-0400 Heart rate 76 /min Grayson Phan MD Work Phone: [facility] 01-23-2024 08:55-0400 Respiratory rate 16 /min Grayson Phan MD Work Phone: [facility] 01-23-2024 08:55-0400 Systolic blood pressure 120 mm[Hg] Grayson Phan MD Work Phone: [facility] 01-19-2024 11:00-0500 Body temperature 97.9 [degF] [facility] 01-19-2024 11:00-0500 Diastolic blood pressure 62 mm[Hg] [facility] 01-19-2024 11:00-0500 Heart rate 74 /min [facility] 01-19-2024 11:00-0500 Respiratory rate 16 /min [facility] 01-19-2024 11:00-0500 SaO2% (BldA) [Mass fraction] 99 % [facility] 01-19-2024 11:00-0500 Systolic blood pressure 134 mm[Hg] [facility] 01-19-2024 08:56-0500 Body height 149.86 cm [facility] 01-19-2024 08:56-0500 Body mass index (BMI) [Ratio] 33.5 kg/m2 [facility] 01-19-2024 08:56-0500 Body weight 75.43 kg [facility] 2023 09:53-0500 Body height 151.1 cm Scott Gold MD Work Phone: [facility] 2023 09:53-0500 Body temperature 97.5 [degF] Scott Gold MD Work Phone: [facility] 2023 09:53-0500 Body weight 75.75 kg Scott Gold MD Work Phone: [facility] 2023 09:53-0500 Diastolic blood pressure 78 mm[Hg] Scott Gold MD Work Phone: [facility] 2023 09:53-0500 Heart rate 76 /min Scott Gold MD Work Phone: [facility] 2023 09:53-0500 Systolic blood pressure 114 mm[Hg] Scott Gold MD Work Phone: [facility] 10-04-2023 15:34-0500 Body temperature 98.2 [degF] Albina Long PERMIT TECHNICIAN.SQL ANALYST Work Phone: [facility] 10-04-2023 15:34-0500 Body weight 80.11 kg Albina Long PERMIT TECHNICIAN.SQL ANALYST Work Phone: [facility] 10-04-2023 15:34-0500 Diastolic blood pressure 80 mm[Hg] Albina Long PERMIT TECHNICIAN.SQL ANALYST Work Phone: [facility] 10-04-2023 15:34-0500 Heart rate 87 /min Albina Long PERMIT TECHNICIAN.SQL ANALYST Work Phone: [facility] 10-04-2023 15:34-0500 Respiratory rate 18 /min Albina Long PERMIT TECHNICIAN.SQL ANALYST Work Phone: [facility] 10-04-2023 15:34-0500 SaO2% (BldA) [Mass fraction] 97 % Albina Long PERMIT TECHNICIAN.SQL ANALYST Work Phone: [facility] 10-04-2023 15:34-0500 Systolic blood pressure 138 mm[Hg] Albina Long PERMIT TECHNICIAN.SQL ANALYST Work Phone: [facility] 08-11-2023 09:42-0400 Body weight 75.75 kg Grayson Phan MD Work Phone: [facility] 08-11-2023 09:42-0400 Diastolic blood pressure 78 mm[Hg] Grayson Phan MD Work Phone: [facility] 08-11-2023 09:42-0400 Heart rate 90 /min Grayson Phan MD Work Phone: [facility] 08-11-2023 09:42-0400 Respiratory rate 18 /min Grayson Phan MD Work Phone: [facility] 08-11-2023 09:42-0400 SaO2% (BldA) [Mass fraction] 100 % Grayson Phan MD Work Phone: [facility] 08-11-2023 09:42-0400 Systolic blood pressure 116 mm[Hg] Grayson Phan MD Work Phone: [facility] 07-24-2023 09:05-0400 Body weight 76.66 kg Panda Harrison MD Work Phone: [facility] 07-24-2023 09:05-0400 Diastolic blood pressure 72 mm[Hg] Panda Harrison MD Work Phone: [facility] 07-24-2023 09:05-0400 Heart rate 78 /min Panda Harrison MD Work Phone: [facility] 07-24-2023 09:05-0400 Systolic blood pressure 117 mm[Hg] Panda Harrison MD Work Phone: [facility] 05-29-2023 10:05-0400 Body height 151.1 cm Safia Jamil MD Work Phone: [facility] 05-29-2023 10:05-0400 Body weight 77.47 kg Safia Jamil MD Work Phone: [facility] 05-29-2023 10:05-0400 Diastolic blood pressure 62 mm[Hg] Safia Jamil MD Work Phone: [facility] 05-29-2023 10:05-0400 Systolic blood pressure 100 mm[Hg] Safia Jamil MD Work Phone: [facility] 05-02-2023 12:20-0400 Diastolic blood pressure 67 mm[Hg] Joel Dykes MD Work Phone: [facility] 05-02-2023 12:20-0400 Heart rate 82 /min Joel Dykes MD Work Phone: [facility] 05-02-2023 12:20-0400 Respiratory rate 20 /min Joel Dykes MD Work Phone: [facility] 05-02-2023 12:20-0400 SaO2% (BldA) [Mass fraction] 98 % Joel Dykes MD Work Phone: [facility] 05-02-2023 12:20-0400 Systolic blood pressure 125 mm[Hg] Joel Dykes MD Work Phone: [facility] 05-02-2023 11:56-0400 Body temperature 97.7 [degF] Joel Dykes MD Work Phone: [facility] 05-02-2023 11:17-0400 Body height 149.9 cm Joel Dykes MD Work Phone: [facility] 05-02-2023 11:17-0400 Body weight 77.11 kg Joel Dykes MD Work Phone: [facility] 03-21-2023 11:40-0400 Body weight 77.11 kg Maddy Zavala APRN.CNP Work Phone: [facility] 12-22-2022 09:00-0500 Body weight 79.83 kg Safia Jamil MD Work Phone: [facility] 12-22-2022 09:00-0500 Diastolic blood pressure 70 mm[Hg] Safia Jamil MD Work Phone: [facility] 12-22-2022 09:00-0500 Systolic blood pressure 120 mm[Hg] Safia Jamil MD Work Phone: [facility] 12-20-2022 09:46-0500 Body weight 80.74 kg Panda Harrison MD Work Phone: [facility] 12-20-2022 09:46-0500 Diastolic blood pressure 76 mm[Hg] Panda Harrison MD Work Phone: [facility] 12-20-2022 09:46-0500 Heart rate 80 /min Panda Harrison MD Work Phone: [facility] 12-20-2022 09:46-0500 Systolic blood pressure 124 mm[Hg] Panda Harrison MD Work Phone: [facility] 12-15-2022 12:57-0500 Body height 151.1 cm Steve Juarez PERMIT TECHNICIAN.SQL ANALYST Work Phone: [facility] 12-15-2022 12:57-0500 Body temperature 97.5 [degF] Steve Juarez PERMIT TECHNICIAN.SQL ANALYST Work Phone: [facility] 12-15-2022 12:57-0500 Body weight 79.83 kg Steve Juarez PERMIT TECHNICIAN.SQL ANALYST Work Phone: [facility] 12-15-2022 12:57-0500 Diastolic blood pressure 81 mm[Hg] Steve Juarez PERMIT TECHNICIAN.SQL ANALYST Work Phone: [facility] 12-15-2022 12:57-0500 Heart rate 83 /min Steve Juarez PERMIT TECHNICIAN.SQL ANALYST Work Phone: [facility] 12-15-2022 12:57-0500 Systolic blood pressure 122 mm[Hg] Steve Juarez PERMIT TECHNICIAN.SQL ANALYST Work Phone: [facility] 12-08-2022 09:27-0500 Body weight 82.56 kg Safia Jamil MD Work Phone: [facility] 12-08-2022 09:27-0500 Diastolic blood pressure 70 mm[Hg] Safia Jamil MD Work Phone: [facility] 12-08-2022 09:27-0500 Systolic blood pressure 112 mm[Hg] Safia Jamil MD Work Phone: [facility] 12-01-2022 08:47-0500 Body weight 82.83 kg Safia Jamil MD Work Phone: [facility] 12-01-2022 08:47-0500 Diastolic blood pressure 70 mm[Hg] Safia Jamil MD Work Phone: [facility] 12-01-2022 08:47-0500 Systolic blood pressure 110 mm[Hg] Safia Jamil MD Work Phone: [facility] 11-17-2022 10:53-0500 Body height 151.1 cm Safia Jamil MD Work Phone: [facility] 11-17-2022 10:53-0500 Body weight 82.28 kg Safia Jamil MD Work Phone: [facility] 11-17-2022 10:53-0500 Diastolic blood pressure 72 mm[Hg] Safia Jamil MD Work Phone: [facility] 11-17-2022 10:53-0500 Systolic blood pressure 120 mm[Hg] Safia Jamil MD Work Phone: [facility] 07-25-2022 09:55-0400 Body height 151.1 cm Scott Gold MD Work Phone: [facility] 07-25-2022 09:55-0400 Body temperature 97.39 [degF] Scott Gold MD Work Phone: [facility] 07-25-2022 09:55-0400 Body weight 78.47 kg Scott Gold MD Work Phone: [facility] 07-25-2022 09:55-0400 Diastolic blood pressure 75 mm[Hg] Scott Gold MD Work Phone: [facility] 07-25-2022 09:55-0400 Heart rate 83 /min Scott Gold MD Work Phone: [facility] 07-25-2022 09:55-0400 Systolic blood pressure 109 mm[Hg] Scott Gold MD Work Phone: [facility] 05-10-2022 11:30-0400 Body weight 79.24 kg Panda Harrison MD Work Phone: [facility] 05-10-2022 11:30-0400 Diastolic blood pressure 75 mm[Hg] Panda Harrison MD Work Phone: [facility] 05-10-2022 11:30-0400 Heart rate 88 /min Panda Harrison MD Work Phone: [facility] 05-10-2022 11:30-0400 Systolic blood pressure 124 mm[Hg] Panda Harrison MD Work Phone: [facility] 04-19-2022 08:44-0400 Body height 149.9 cm Joel Dykes MD Work Phone: [facility] 04-19-2022 08:44-0400 Body temperature 96.8 [degF] Joel Dykes MD Work Phone: [facility] 04-19-2022 08:44-0400 Body weight 81.65 kg Joel Dykse MD Work Phone: [facility] 04-19-2022 08:44-0400 Diastolic blood pressure 59 mm[Hg] Joel Dykes MD Work Phone: [facility] 04-19-2022 08:44-0400 Heart rate 85 /min Joel Dykes MD Work Phone: [facility] 04-19-2022 08:44-0400 SaO2% (BldA) [Mass fraction] 100 % Joel Dykes MD Work Phone: [facility] 04-19-2022 08:44-0400 Systolic blood pressure 118 mm[Hg] Joel Dykes MD Work Phone: [facility] 03-28-2022 10:00-0400 Body height 152.4 cm Steve Juarez PERMIT TECHNICIAN.SQL ANALYST Work Phone: [facility] 03-28-2022 10:00-0400 Body temperature 96.8 [degF] Steve Juarez PERMIT TECHNICIAN.SQL ANALYST Work Phone: [facility] 03-28-2022 10:00-0400 Body weight 83.01 kg Steve Juarez PERMIT TECHNICIAN.SQL ANALYST Work Phone: [facility] 03-28-2022 10:00-0400 Diastolic blood pressure 66 mm[Hg] Steve Juarez PERMIT TECHNICIAN.SQL ANALYST Work Phone: [facility] 03-28-2022 10:00-0400 Heart rate 81 /min Steve Juarez PERMIT TECHNICIAN.SQL ANALYST Work Phone: [facility] 03-28-2022 10:00-0400 Systolic blood pressure 115 mm[Hg] Steve Juarez PERMIT TECHNICIAN.SQL ANALYST Work Phone: [facility] Encounters Encounter Date Encounter Type Care Provider Facility Start: 05-20-2025 ambulatory Michelle Stern Facility:[facility] Start: 05-19-2025 End: 05-19-2025 Orders Only Alie Stallworth PERMIT TECHNICIAN.SQL ANALYST Work Phone: Endocrinology Comment on above: Type 2 diabetes mellitus with hyperglyce adolfo, with long-term current use of insulin (HCC) (Primary Dx) Start: 05-14-2025 End: 05-14-2025 Telephone encounter Panda Harrison MD Work Phone: Endocrinology Comment on above: Forms Start: 05-09-2025 End: 05-09-2025 ambulatory GRAYSON PHAN Facility:[facility] Start: 05-01-2025 End: 05-01-2025 ambulatory Yuri Pitt PT [facility] Comment on above: Pain in left hip (Primary Dx); Bursitis of right shoulder; Primary osteoarthritis of left hip Start: 04-30-2025 End: 04-30-2025 ambulatory Grayson Phan MD Work Phone: [employer] [facility] [place] Start: 04-30-2025 End: 04-30-2025 Patient encounter procedure Grayson Phan MD Work Phone: [facility] Comment on above: Population Health Navigation Outreach ([facility] ) Start: 04-24-2025 End: 04-24-2025 ambulatory Yuri Pitt PT [facility] Comment on above: Pain in left hip (Primary Dx); Bursitis of right shoulder; Primary osteoarthritis of left hip Start: 04-22-2025 End: 04-23-2025 ambulatory Scott Gold MD Work Phone: Rheumatology Comment on above: Methotrexate Gianfranco three c g m Start: 04-17-2025 End: 04-17-2025 [facility]ty [facility]acy [facility] Comment on above: SPP Inflammatory Conditions - Medication Refill (Stelara (dose increase)) Start: 04-15-2025 End: 04-15-2025 ambulatory Rich Gonzalez PT, DPT [facility] Comment on above: Pain in left hip (Primary Dx); Primary osteoarthritis of left hip; Bursitis of right shoulder Start: 04-14-2025 End: 04-14-2025 Telemedicine consultation with patient Scott Gold MD Work Phone: Rheumatology Start: 04-14-2025 End: 04-14-2025 ambulatory Scott Gold MD Work Phone: Rheumatology Comment on above: Seronegative spondyloarthropathy (Primar y Dx); Long-term use of immunosuppressant medication; Pain in joint, multiple sites; Crohn's disease with complication, unspecified gastrointestinal tract location (HCC); Osteoarthritis of spine, unspecified spinal osteoarthritis complication status, unspecified spinal region Start: 04-14-2025 End: 04-14-2025 Patient encounter procedure [facility] Comment on above: SPP Inflammatory Conditions - Treatment Referral (Stelara- Dose increase); Insurance Authorization ([place] submission pending) Start: 04-12-2025 End: 04-14-2025 Refill Alie Stallworth APRN.CNP Work Phone: Endocrinology Comment on above: Refill Request Start: 04-10-2025 ambulatory GRAYSON PHAN Facility:[facility] Start: 04-10-2025 End: 04-10-2025 Subsequent hospital visit by physician Main A21 4 Work Phone: Radiology Comment on above: Pain in joint, multiple sites [M25.50] Start: 04-02-2025 End: 04-02-2025 ambulatory GRAYSON PHAN Facility:[facility] Start: 03-28-2025 End: 03-28-2025 ambulatory Savanna Long MA [facility] [employer] [facility] [place] Start: 03-28-2025 End: 03-28-2025 Patient encounter procedure [facility] Comment on above: Population Health [facility] Out[facility] ( [facility] Start: 03-25-2025 End: 04-10-2025 Follow-up encounter Scott Gold MD Work Phone: Rheumatology Start: 03-24-2025 End: 03-24-2025 Telephone encounter Cesilia Stern Radiology Comment on above: Appointment Start: 03-24-2025 End: 03-24-2025 Patient encounter procedure Scott Gold MD Work Phone: Rheumatology Comment on above: Seronegative spondyloarthropathy (Primar y Dx); Long-term use of immunosuppressant medication; Tick bite, unspecified site, sequela; Pain in joint, multiple sites; Joint swelling Start: 03-24-2025 End: 03-24-2025 ambulatory GRAYSON PHAN Facility:[facility] Start: 03-14-2025 End: 03-14-2025 Patient encounter procedure Lara Reeder DO Work Phone: Orthopaedics Comment on above: Pain in left hip (Primary Dx); Bursitis of right shoulder; Primary osteoarthritis of left hip Start: 03-14-2025 End: 03-14-2025 ambulatory LARA REEDER Facility:[facility] Start: 03-14-2025 End: 03-14-2025 Subsequent hospital visit by physician Radio Perez [facility] Work Phone: Radiology Comment on above: Pain [R52] Start: 03-03-2025 End: 03-03-2025 ambulatory Loreta Gilliam RN [employer] Comment on above: 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 Start: 02-25-2025 End: 02-25-[address] Work Phone: [facility] [place] Comment on above: Type 2 diabetes mellitus treated with in sulin (HCC) (Primary Dx) Start: 02-25-2025 End: 02-25-2025 Telemedicine consultation with patient Syd Monae RD Work Phone: [facility] [place] Start: 02-21-2025 End: 02-24-2025 Telephone encounter Alie Stallworth APRN.CNP Work Phone: Endocrinology Comment on above: Blood Sugar Elevation Start: 02-17-2025 End: 02-17-2025 ambulatory Alie Stallworth APRN.CNP Work Phone: Endocrinology Comment on above: Lab Start: 02-17-2025 End: 02-17-2025 E-mail encounter from caregiver Alie Stallworth APRN.CNP Work Phone: Endocrinology Start: 02-17-2025 End: 02-17-2025 Telephone encounter Alie Stallworth APRN.CNP Work Phone: Endocrinology Comment on above: Medication Problem Start: 02-14-2025 End: 02-14-2025 ambulatory GRAYSON PHAN Facility:[facility] Start: 02-13-2025 End: 02-13-2025 ambulatory Alie Stallworth APRN.SQL ANALYST Work Phone: Endocrinology Comment on above: Diabetes mellitus type 1, controlled, wi thout complications (HCC) (Primary Dx); Type 2 diabetes mellitus with hyperglycemia, with long-term current use of insulin ([facility]) Start: 02-13-2025 End: 02-13-2025 Telemedicine consultation with patient Alie Stallworth APRN.CNP Work Phone: Endocrinology Start: 02-11-2025 End: 02-12-2025 [facility]ty [facility] Comment on above: SPP Inflammatory Conditions - Medication Refill (Stelara) Start: 02-07-2025 End: 02-08-2025 Refill Scott Gold MD Work Phone: Rheumatology Comment on above: Refill Request Start: 02-05-2025 End: 02-05-2025 ambulatory Grayson Phan MD [facility] [place] Start: 02-05-2025 End: 02-05-2025 Patient encounter procedure Grayson Phan MD Work Phone: [facility] Comment on above: Population Health Navigation Outreach ([facility] ) Start: 02-04-2025 End: 02-04-2025 Telephone encounter Lara Reeder DO Work Phone: Orthopaedics Comment on above: Appointment; Patient Question Start: 01-10-2025 End: 01-10-2025 ambulatory GRAYSON PHAN Facility[facility] Start: 01-09-2025 End: 01-09-2025 Telephone encounter Samy Barragan PA-C Work Phone: Urology Comment on above: Orders Start: 01-07-2025 End: 01-09-2025 Refill Grayson Phan MD Work Phone: Internal Medicine [place] Comment on above: Refill Request Start: 01-02-2025 End: 01-02-2025 ambulatory [facility] Facility:[facility] Start: 12-31-2024 End: 01-13-2025 Telephone encounter Samy Barragan PA-C Work Phone: Urology Comment on above: Medication Problem Start: 12-26-2024 End: 12-26-2024 Patient Outreach Antonieta Boyer RN Work Phone: [employer] Comment on above: Transition Of Care (TCM FU CALL DAY 14) Bi-weekly phone contact (Recurring) for Transitional Care Management Start: 12-19-2024 End: 12-19-2024 ambulatory Alie Stallworth APRN.CNP Work Phone: Endocrinology Comment on above: Lab Start: 12-19-2024 End: 12-19-2024 E-mail encounter from caregiver Alie Stallworth APRN.CNP Work Phone: Endocrinology Start: 12-18-2024 End: 12-18-2024 ambulatory GRAYSON Mathis JESIKA Facility:[facility] Start: 12-18-2024 End: 12-18-2024 Office outpatient visit 25 minutes Samy Barragan PA-C Work Phone: Urology Comment on above: Nephrolithiasis (Primary Dx); Screening for genitourinary condition Start: 12-17-2024 End: 12-17-2024 ambulatory Rivera Cummings MA [employer] Start: 12-17-2024 End: 12-17-2024 Patient encounter procedure Rivera Cummings MA [facility] [place] Comment on above: Population Health Navigation Outreach (H lola High Risk Attempt 2) Start: 12-13-2024 End: 12-13-2024 Patient Outreach Antonieta Boyer RN Work Phone: [employer] Comment on above: Transition Of Care (TCM INITIAL OUTREACH ) Initial phone contact for Transitional Care Management Start: 12-12-2024 End: 12-13-2024 ambulatory Samy CURRY-C Work Phone: Urology Comment on above: Er [id number] [facility] Start: 12-11-2024 End: 12-12-2024 ambulatory ALBINA LUCAS-MARIELLE Facility:[facility] Start: 12-11-2024 End: 12-11-2024 Emergency department patient visit ALBINA DOOLEY Facility:[facility] Start: 11-19-2024 End: 11-19-2024 E-mail encounter from caregiver Alie Stallworth APRN.CNP Work Phone: Endocrinology Start: 11-19-2024 End: 11-19-2024 ambulatory Alie L Stallworth PERMIT TECHNICIAN.SQL ANALYST Work Phone: Endocrinology Comment on above: Invite to Share CGM Data Type 2 diabetes tia itus with hyperglycemia, with long-term current use of insulin (HCC) (Primary Dx) Start: 11-19-2024 End: 11-19-2024 Telemedicine consultation with patient Alie Stallworth PERMIT TECHNICIAN.SQL ANALYST Work Phone: Endocrinology Start: 11-18-2024 End: 11-20-2024 Specialty Pharmacy [facility] Comment on above: SPP Inflammatory Conditions - Medication Refill (Stelara) Start: 11-15-2024 End: 11-15-2024 ambulatory [facility] Facility:[facility] Start: 10-28-2024 End: 10-28-2024 Telephone encounter Panda Harrison MD Work Phone: Endocrinology Comment on above: High glucose on prednisone Start: 10-25-2024 End: 10-25-2024 ambulatory GRAYSON PHAN Facility:[facility] Start: 10-25-2024 End: 10-25-2024 Patient encounter procedure Steve Juarez APRN.SQL ANALYST Work Phone: Rheumatology Comment on above: Seronegative spondyloarthropathy (Primar y Dx); Encounter for long-term (current) use of medications; Crohn's disease with complication, unspecified gastrointestinal tract location (HCC); Osteoarthritis of spine, unspecified spinal osteoarthritis complication status, unspecified spinal region Start: 10-21-2024 End: 10-22-[address] Al[place] APRN.SQL ANALYST Work Phone: Internal Medicine [place] Comment on above: Refill Request Handtanya salomon re newal Start: 08-30-2024 End: 09-02-2024 Specialty Pharmacy [facility] Comment on above: SPP Inflammatory Conditions - Medication Refill (Stelara) Start: 08-22-2024 End: 08-22-2024 ambulatory Haydee Leung RN Work Phone: [employer] Comment on above: ACM LUPE RN (ED Utilization revie w per request of payor) Start: 08-12-2024 End: 08-12-2024 ambulatory GRAYSON PHAN Facility:[facility] Start: 08-12-2024 End: 08-12-2024 Patient encounter procedure Grayson Phan MD Work Phone: Internal Medicine [place] Comment on above: Gastroesophageal reflux disease without esophagitis (Primary Dx); Screening for depression; Encounter for screening examination for other mental health and behavioral disorders; Type 2 diabetes mellitus treated with insulin (HCC); Crohn's disease of large intestine without complication (HCC); Ileostomy status (HCC) Start: 08-08-2024 End: 09-16-2024 Refill Panda Harrison MD Work Phone: Endocrinology Comment on above: Refill Request Start: 07-29-2024 End: 07-30-2024 Refill Panda Harrison MD Work Phone: Endocrinology Comment on above: Refill Request Start: 07-29-2024 End: 07-30-2024 Refill Grayson Phan MD Work Phone: Internal Medicine [place] Comment on above: Refill Request Start: 07-17-2024 End: 07-17-2024 ambulatory GRAYSON PHAN Facility:[facility] Start: 07-17-2024 End: 07-17-2024 Office outpatient visit 25 minutes Samy Barragan PA-C Work Phone: Urology Comment on above: Nephrolithiasis (Primary Dx); Urine volume deficient; Hypocitraturia; Aciduria (HCC); Hypercalcinuria Start: 07-01-2024 End: 07-02-2024 ambulatory Panda Harrison MD Work Phone: Endocrinology Comment on above: Fast click drum lancet Start: 06-17-2024 End: 06-17-2024 Patient encounter procedure Safia Jamil MD Work Phone: OB/Gynecology Comment on above: Encounter for gynecological examination (general) (routine) without abnormal findings (Primary Dx); Encounter for screening mammogram for breast cancer Start: 06-17-2024 End: 06-17-2024 Patient encounter status Safia Jamil MD Work Phone: [facility] Start: 06-17-2024 End: 06-17-2024 ambulatory GRAYSON Mathis JESIKA Facility:[facility] Start: 06-17-2024 Encounter for gynecological examination (general) (routine) without abnormal findings SAFIA JAMIL [facility] Start: 06-07-2024 End: 06-07-2024 ambulatory GRAYSON Mathis JESIKA Facility:[facility] Start: 06-07-2024 End: 06-07-2024 Patient encounter procedure Steve Juarez APRN.SQL ANALYST Work Phone: Rheumatology Comment on above: Seronegative spondyloarthropathy (Primar y Dx); Encounter for long-term (current) use of medications; Crohn's disease with complication, unspecified gastrointestinal tract location (HCC) Start: 06-05-2024 [facility]ty [facility] Comment on above: SPP Inflammatory Conditions - Medication Refill (Stelara) Start: 06-02-2024 End: 06-02-2024 Emergency department patient visit ALBINA DOOLEY Facility:[facility] Start: 05-30-2024 End: 05-30-2024 Refill Alie Stallworth APRN.SQL ANALYST Work Phone: Endocrinology Comment on above: Refill Request Nephrolithiasis [N20 .0] Start: 05-25-2024 Refill Safia Villarreal APRN.SQL ANALYST Work Phone: Endocrinology Comment on above: Refill Request Start: 05-20-2024 End: 05-20-2024 ambulatory GRAYSON PHAN Facility:[facility] Start: 05-20-2024 End: 05-20-2024 Patient encounter procedure Alie Stallworth APRN.SQL ANALYST Work Phone: Endocrinology Comment on above: Type 2 diabetes mellitus with hyperglyce adolfo, with long-term current use of insulin (HCC) (Primary Dx); Diabetes mellitus type 2 with ketoacidosis, uncontrolled (HCC) Start: 05-15-2024 End: 05-15-2024 Office outpatient new 45 minutes Samy Barragan PA-C Work Phone: Urology Comment on above: Nephrolithiasis (Primary Dx); Screening for genitourinary condition Start: 05-09-2024 Telephone encounter Grayson Phan MD Work Phone: Internal Medicine [place] Comment on above: Patient Update Start: 05-08-2024 ambulatory Panda Harrison MD Work Phone: Endocrinology Comment on above: Lancet device Start: 05-06-2024 End: 05-06-2024 Emergency department patient visit GRAYSON PHAN Facility:[facility] Start: 04-25-2024 Refill Panda Harrison MD Work Phone: Endocrinology Comment on above: Refill Request Start: 04-11-2024 Telephone encounter Panda Harrison MD Work Phone: Endocrinology Comment on above: Forms (CGM with Physician's Order Form [ [facility] [employer]]) Start: 03-22-2024 Telephone encounter Alie Stallworth APRN.SQL ANALYST Work Phone: Endocrinology Comment on above: Medication Problem Start: 03-15-2024 [facility] Comment on above: SPP Inflammatory Conditions - [facility] Start: 03-11-2024 Refill Panda Harrison MD Work Phone: Endocrinology Comment on above: Refill Request Start: 02-16-2024 End: 02-16-2024 Patient encounter procedure Alie Stallworth APRN.SQL ANALYST Work Phone: Endocrinology Comment on above: Type 2 diabetes mellitus with hyperglyce adolfo, with long-term current use of insulin (HCC) (Primary Dx) Start: 02-06-2024 End: 02-06-2024 ambulatory [facility] Work Phone: Start: 02-06-2024 End: 02-06-2024 Patient encounter procedure [facility] Work Phone: Start: 02-02-2024 Telephone encounter Panda Harrison MD Work Phone: Endocrinology & Metabolic [place] Comment on above: Insurance Authorization (flash glucose s rigoberto reader (FREESTYLE GIANFRANCO 3 READER)) Insurance Authorizat ion (Blood-Glucose Sensor (FREESTYLE GIANFRANCO 3 SENSOR) APPROVAL ) Insurance Authorizat ion (flash glucose scanning reader (FREESTYLE GIANFRANCO 3 READER) APPROVAL ) Start: 02-01-2024 ambulatory Panda Harrison MD Work Phone: Endocrinology Comment on above: Freestyle gianfranco 3 Glucose meter strips Start: 01-29-2024 Telephone encounter Panda Harrison MD Work Phone: Endocrinology Comment on above: Insurance Authorization (Freestyle Gianfranco Sensor) Start: 01-26-2024 ambulatory [place] [facility] Comment on above: Research F/U (U01 Research Study [id number]) Start: 01-23-2024 End: 01-23-2024 Patient encounter procedure Grayson Phan MD Work Phone: Internal Medicine [place] Comment on above: Fibromyalgia (Primary Dx); Type 2 diabetes mellitus treated with insulin (HCC); Mixed hyperlipidemia; Ileostomy status (HCC); Gastroesophageal reflux disease without esophagitis Start: 01-19-2024 End: 01-19-2024 Emergency department patient visit [facility] Work Phone: Start: 01-16-2024 Telephone encounter Panda Harrison MD Work Phone: Endocrinology Comment on above: Insurance Authorization (Freestyle Gianfranco 3 Sensor) Start: 01-15-2024 Telephone encounter Grayson Phan MD Work Phone: Internal Medicine [place] Comment on above: Medication Problem Start: 01-09-2024 End: 01-09-2024 ambulatory [facility] Work Phone: Start: 01-09-2024 End: 01-09-2024 Patient encounter procedure [facility] Work Phone: Start: 01-03-2024 ambulatory [place] [facility] Comment on above: Patient Education (U01 Research Study [id number]) Start: 12-26-2023 [facility] Comment on above: SPP Inflammatory Conditions - Medication Refill (Stelara- NCA 12/2024) Refill Request Start: 2023 End: 2023 Patient encounter procedure Scott Gold MD Work Phone: Rheumatology Comment on above: Seronegative spondyloarthropathy (Primar y Dx); Crohn's disease with complication, unspecified gastrointestinal tract location (HCC); Osteoarthritis of spine, unspecified spinal osteoarthritis complication status, unspecified spinal region; Fibromyalgia; Multiple joint pain; Long-term use of immunosuppressant medication; Psoriatic arthritis (HCC) Start: 12-15-2023 Refill Grayson Phan MD Work Phone: Internal Medicine [place] Comment on above: Refill Request Start: 11-07-2023 End: 11-07-2023 Subsequent hospital visit by physician Xr [facility] [place] Work Phone: Radiology Comment on above: Acute cough [R05.1] Start: 10-11-2023 End: 10-11-2023 Patient encounter procedure Abhi Pop MD Work Phone: Plastic Surgery Comment on above: Left hand pain (Primary Dx) Start: 10-04-2023 End: 10-04-2023 Subsequent hospital visit by physician Xr [facility] [place] Work Phone: Radiology Comment on above: Left wrist pain [M25.532] Start: 10-04-2023 End: 10-04-2023 Patient encounter procedure Albina Long APRN.CNP Work Phone: [facility] Comment on above: Left wrist pain (Primary Dx); Abnormal finding on diagnostic imaging of extremity Start: 09-29-2023 [facility] Comment on above: SPP Inflammatory Conditions - Medication Refill (Stelara) Start: 09-25-2023 End: 09-25-2023 Subsequent hospital visit by physician Bone Density [facility] Work Phone: Radiology Comment on above: Primary hyperparathyroidism (HCC) [E21.0 ] Start: 09-24-2023 Refill Costa Farrar PA-C Work Phone: Gastroenterology Comment on above: Refill Request Start: 09-18-2023 Refill Grayson Phan MD Work Phone: Internal Medicine [place] Comment on above: Refill Request Start: 08-11-2023 End: 08-11-2023 Patient encounter procedure Grayson Phan MD Work Phone: Internal Medicine [place] Comment on above: Fibromyalgia (Primary Dx); Type 2 diabetes mellitus treated with insulin (HCC); Mixed hyperlipidemia; Non-alcoholic fatty liver disease Start: 08-03-2023 ambulatory Panda Harrison MD Work Phone: Endocrinology Comment on above: Blood work Start: 07-24-2023 End: 07-24-2023 Patient encounter procedure Panda Harrison MD Work Phone: Endocrinology Comment on above: Type 2 diabetes mellitus treated with in sulin (HCC) (Primary Dx); Primary hyperparathyroidism (HCC); Bone loss Start: 07-06-2023 Specialty Pharmacy [facility] Comment on above: SPP Inflammatory Conditions - Medication Refill (Stelara) Start: 05-29-2023 End: 05-29-2023 Patient encounter procedure Safia Jamil MD Work Phone: OB/Gynecology Comment on above: Encounter for gynecological examination (general) (routine) without abnormal findings (Primary Dx); Encounter for screening mammogram for breast cancer; History of UTI Start: 05-29-2023 End: 05-29-2023 Patient encounter status Safia Jamil MD Work Phone: [facility] Start: 05-28-2023 Refill Maddy Zavala APRN.SQL ANALYST Work Phone: Endocrinology Comment on above: Refill Request Start: 05-26-2023 Refill Panda Harrison MD Work Phone: Endocrinology Comment on above: Refill Request Start: 05-26-2023 End: 05-26-2023 ambulatory [facility] PT Work Phone: [facility] Comment on above: Pain in right elbow (Primary Dx); Right shoulder pain, unspecified chronicity Start: 05-08-2023 Telephone encounter Grayson Phan MD Work Phone: Internal Medicine [place] Comment on above: Patient Request Start: 05-02-2023 End: 05-02-2023 Subsequent hospital visit by physician Joel Dykes MD Work Phone: Gastroenterology Comment on above: Inflammatory bowel disease [K52.9] Start: 04-18-2023 ambulatory Panda Harrison MD Work Phone: Endocrinology Comment on above: Gianfranco 3 Start: 04-11-2023 End: 04-11-2023 ambulatory Roseline Anastasiyah PT Work Phone: [facility] Comment on above: Pain in right elbow (Primary Dx); Right shoulder pain, unspecified chronicity Start: 03-28-2023 End: 03-28-2023 ambulatory [facility] Comment on above: Pain in right elbow (Primary Dx); Right shoulder pain, unspecified chronicity Start: 03-21-2023 End: 03-21-2023 Telemedicine consultation with patient Maddy Zavala GITA Work Phone: [facility] Start: 03-21-2023 End: 03-21-2023 ambulatory [facility] Comment on above: Pain in right elbow (Primary Dx); Right shoulder pain, unspecified chronicity Type 2 diabetes tia itus 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, with long-term current use of insulin (HCC) (Primary Dx) Start: 03-20-2023 Refill Panda Harrison MD Work Phone: Endocrinology Comment on above: Refill Request Start: 03-16-2023 End: 03-16-2023 ambulatory Roselinemishel Langfordh PT Work Phone: [facility] Comment on above: Pain in right elbow (Primary Dx); Right shoulder pain, unspecified chronicity Start: 03-14-2023 End: 03-14-2023 ambulatory [facility] Comment on above: Pain in right elbow (Primary Dx) Start: 03-10-2023 End: 03-10-2023 ambulatory Rose Dilia [facility] Comment on above: Pain in right elbow (Primary Dx) Start: 03-03-2023 End: 03-03-2023 ambulatory Rose Dilia [facility] Comment on above: Pain in right elbow (Primary Dx) Start: 02-17-2023 End: 02-17-2023 ambulatory Roseline Jacobo PT Work Phone: [facility] Comment on above: Chronic right shoulder pain (Primary Dx) ; Right tennis elbow; Pain in right elbow Start: 02-15-2023 ambulatory Panda Harrison MD Work Phone: Endocrinology Comment on above: Glucose levels Start: 02-10-2023 ambulatory Panda Harrison MD Work Phone: Endocrinology Comment on above: Steroid Shot resulting in high blood sug ar Start: 02-01-2023 Refill Grayson Phan MD Work Phone: Internal Medicine [place] Comment on above: Refill Request Start: 01-27-2023 End: 01-27-2023 Patient encounter procedure Mika Simmons DO Work Phone: [facility] Comment on above: Right tennis elbow (Primary Dx) Start: 01-26-2023 End: 01-26-2023 Patient encounter procedure Darlene aPk MD Work Phone: OB/Gynecology Comment on above: History of ovarian cyst (Primary Dx); IUD (intrauterine device) in place Start: 01-21-2023 ambulatory Steve Juarez APRN.SQL ANALYST Work Phone: Rheumatology Comment on above: Stalara Start: 01-17-2023 End: 01-17-2023 Orders Only Helio Teresa MD Work Phone: Endocrine Surgery Comment on above: Hypercalcemia (Primary Dx) Primary hyperparathy roidism (HCC) Start: 01-13-2023 Specialty [facility] [place] Comment on above: SPP Inflammatory Conditions - Medication Refill (Stelara) Stilara Start: 01-06-2023 Orders Only Helio Teresa MD Work Phone: Endocrine Surgery Comment on above: Hyperparathyroidism (HCC) (Primary Dx) Consult (Face Sheet) Start: 01-05-2023 End: 01-05-2023 Orders Only Safia Kennedy PA-C Work Phone: Gastroenterology Comment on above: NAFLD (nonalcoholic fatty liver disease) (Primary Dx) Start: 12-30-2022 ambulatory Panda Harrison MD Work Phone: Endocrinology Comment on above: Low blood sugars Start: 12-22-2022 End: 12-22-2022 ambulatory Ablina Rodgers APRN.SQL ANALYST Work Phone: Gastroenterology Comment on above: Inflammatory bowel disease (Primary Dx) Phone Number Start: 12-22-2022 E-mail encounter from caregiver Albina Rodgers APRN.SQL ANALYST Work Phone: [facility] Start: 12-22-2022 End: 12-22-2022 Telemedicine consultation with patient Albina Rodgers APRN.SQL ANALYST Work Phone: [facility] Start: 12-22-2022 End: 12-22-2022 Patient encounter procedure Safia Jamil MD Work Phone: OB/Gynecology Comment on above: Cyst of ovary, unspecified laterality (P rimary Dx); Pelvic pain in female; IUD (intrauterine device) in place; Candidal intertrigo Start: 12-20-2022 ambulatory [facility] Start: 12-20-2022 End: 12-20-2022 Patient encounter procedure Panda Harrison MD Work Phone: Endocrinology Comment on above: Type 2 diabetes mellitus with hyperglyce adolfo, without long-term current use of insulin (HCC) (Primary Dx); Hypercalcemia; Type 2 diabetes mellitus treated with insulin (HCC) SPP Inflammatory Con ditions - Treatment Referral (Stelara); Insurance Authorization (PA on file ) Start: 12-16-2022 ambulatory Panda Harrison MD Work Phone: [facility] Start: 12-16-2022 Patient encounter procedure Panda Harrison MD Work Phone: Endocrinology Comment on above: Appointment Start: 12-15-2022 End: 12-15-2022 Patient encounter procedure Steve Isiah PERMIT TECHNICIAN.SQL ANALYST Work Phone: Rheumatology Comment on above: Seronegative spondyloarthropathy (Primar y Dx); Crohn's disease with complication, unspecified gastrointestinal tract location (HCC); Osteoarthritis of spine, unspecified spinal osteoarthritis complication status, unspecified spinal region Start: 12-08-2022 End: 12-08-2022 Patient encounter procedure Safia Jamil MD Work Phone: OB/Gynecology Comment on above: Encounter for IUD insertion (Primary Dx) Start: 12-08-2022 End: 12-08-2022 ambulatory Ob Ultrasound Work Phone: OB/Gynecology Start: 12-08-2022 End: 12-08-2022 Patient encounter procedure Safia Jamil MD Work Phone: OB/Gynecology Comment on above: Encounter for IUD insertion (Primary Dx) Start: 12-01-2022 End: 12-01-2022 Patient encounter procedure Safia Jamil MD Work Phone: OB/Gynecology Comment on above: control counseling (Primary Dx); Contraception, device intrauterine; Encounter for IUD insertion; Secondary amenorrhea Start: 11-28-2022 End: 11-28-2022 Patient encounter procedure Safia Jamil MD Work Phone: OB/Gynecology Comment on above: Pelvic pain in female (Primary Dx) Start: 11-28-2022 End: 11-28-2022 ambulatory Ob Ultrasound Work Phone: OB/Gynecology Start: 11-28-2022 End: 11-28-2022 Patient encounter procedure Valve Steamer [place] [facility] Work Phone: [facility] Start: 11-25-2022 Telephone encounter Safia Jamil MD Work Phone: OB/Gynecology Comment on above: Patient Question Hypercalciuria (Prim naveen Dx) Start: 11-17-2022 End: 11-17-2022 Patient encounter procedure Safia Jamil MD Work Phone: OB/Gynecology Comment on above: LLQ pain (Primary Dx); Pelvic pain in female; control counseling; Contraception, device intrauterine; Encounter for IUD insertion; Encounter for screening mammogram for breast cancer Start: 10-20-2022 ambulatory Panda Harrison MD Work Phone: Endocrinology Comment on above: Bydureon for now Start: 10-17-2022 ambulatory Panda Harrison MD Work Phone: Endocrinology Comment on above: [place] 2 ml pin Start: 10-14-2022 Documentation procedure Mammography Coordinator [facility] Start: 10-14-2022 Letter encounter Mammography Coordinator [facility] Start: 09-20-2022 ambulatory Panda Harrison MD Work Phone: Endocrinology Comment on above: High calcium in urine Start: 09-12-2022 End: 09-12-2022 Subsequent hospital visit by physician [facility] [address] Radiology Comment on above: Lateral epicondylitis of right elbow [M7 7.11] Start: 08-31-2022 Telephone encounter Panda Harrison MD Work Phone: Endocrinology Comment on above: Patient Question (Freestyle Gianfranco 2) Start: 07-30-2022 ambulatory Panda Harrison MD Work Phone: Endocrinology Comment on above: CGM Start: 07-26-2022 End: 07-26-2022 ambulatory Safia Kennedy PA-C Work Phone: Gastroenterology Comment on above: Non-alcoholic fatty liver disease (Prima ry Dx); Mixed hyperlipidemia; Type 2 diabetes mellitus treated with insulin (HCC); Inflammatory bowel disease Start: 07-26-2022 End: 07-26-2022 Telemedicine consultation with patient Safia Kennedy PA-C Work Phone: [facility] Start: 07-25-2022 End: 07-25-2022 Patient encounter procedure Scott Gold MD Work Phone: Rheumatology Comment on above: Seronegative spondyloarthropathy (Primar y Dx); Crohn's disease with complication, unspecified gastrointestinal tract location (HCC); Multiple joint pain; Fibromyalgia Start: 07-21-2022 End: 07-21-2022 ambulatory [facility] Work Phone: Start: 07-21-2022 End: 07-21-2022 Patient encounter procedure [facility] Start: 07-20-2022 Telephone encounter Joe Green [facility] Radiology Comment on above: Appointment Start: 07-13-2022 Orders Only Mika Simmons DO Work Phone: [facility] Comment on above: Lateral epicondylitis of right elbow (Pr imary Dx) Start: 06-24-2022 ambulatory Panda Harrison MD Work Phone: Endocrinology Start: 06-24-2022 E-mail encounter from caregiver Panda Harrison MD Work Phone: [facility] Start: 06-16-2022 End: 06-16-2022 Admission to same day surgery center [facility] Comment on above: Right shoulder pain, unspecified chronic ity (Primary Dx); S/P shoulder surgery Start: 06-16-2022 End: 06-16-2022 ambulatory [facility] Start: 06-15-2022 Refill Panda Harrison MD Work Phone: Endocrinology Comment on above: Refill Request Start: 06-07-2022 Telephone encounter Panda Harrison MD Work Phone: Endocrinology Comment on above: Orders Start: 06-06-2022 ambulatory Grasyon Phan MD Work Phone: Internal Medicine [place] Comment on above: My antacid medication Start: 05-31-2022 ambulatory Grayson Phan MD Work Phone: Internal Medicine [place] Comment on above: Famotidine 40 mg Start: 05-31-2022 Telephone encounter Sara Russell MA Endocrinology Comment on above: Appointment Start: 05-27-2022 ambulatory Panda Harrison MD Work Phone: Endocrinology Comment on above: high calcium in urine, recommend see bryon alexn for parathyroid Start: 05-27-2022 E-mail encounter from caregiver Panda Harrison MD Work Phone: [facility] Start: 05-24-2022 End: 05-24-2022 ambulatory [facility] Comment on above: 24 hr urine Start: 05-24-2022 Telephone encounter Panda Harrison MD Work Phone: Endocrinology Comment on above: Forms ([facility]) Start: 05-24-2022 End: 05-24-2022 Admission to same day surgery center [facility] Comment on above: Right shoulder pain, unspecified chronic ity (Primary Dx); S/P shoulder surgery Start: 05-19-2022 Telephone encounter Panda Harrison MD Work Phone: Endocrinology Comment on above: Forms ([facility]) Start: 05-18-2022 Telephone encounter Panda Harrison MD Work Phone: Endocrinology Comment on above: Prolia Start: 05-17-2022 Telephone encounter Panda Harrison MD Work Phone: Endocrinology Comment on above: Patient Update (LABS/SUPPLIES) Start: 05-11-2022 Telephone encounter Panda Harrison MD Work Phone: Endocrinology Comment on above: Gianfranco reader and sensor Insurance Authorizat ion (gianfranco reader/ sensor) Start: 05-10-2022 End: 05-10-2022 Admission to same day surgery center [facility] Comment on above: Right shoulder pain, unspecified chronic ity (Primary Dx); S/P shoulder surgery Start: 05-10-2022 End: 05-10-2022 ambulatory [facility] Start: 05-10-2022 End: 05-10-2022 Patient encounter procedure Panda Harrison MD Work Phone: Endocrinology Comment on above: Type 2 diabetes mellitus with hyperglyce adolfo, with long-term current use of insulin (HCC) (Primary Dx); Bone loss; Hypercalcemia Start: 05-03-2022 End: 05-03-2022 Admission to same day surgery center [facility] Comment on above: S/P shoulder surgery (Primary Dx) Start: 05-03-2022 End: 05-03-2022 ambulatory [facility] Start: 04-29-2022 End: 04-29-2022 Admission to same day surgery center [facility] Comment on above: Right shoulder pain, unspecified chronic ity (Primary Dx); S/P shoulder surgery Start: 04-29-2022 End: 04-29-2022 ambulatory [facility] Start: 04-26-2022 Refill Aury Powers APRN.SQL ANALYST Work Phone: [facility] Comment on above: Refill Request Start: 04-22-2022 End: 04-22-2022 Admission to same day surgery center [facility] Comment on above: Right shoulder pain, unspecified chronic ity (Primary Dx); S/P shoulder surgery Start: 04-22-2022 End: 04-22-2022 ambulatory [facility] Start: 04-21-2022 Telephone encounter Joel Dykes MD Work Phone: Gastroenterology Comment on above: Results Start: 04-19-2022 End: 04-19-2022 Nursing evaluation of patient and report [facility] Work Phone: Colorectal Surgery Comment on above: Attention to ileostomy (HCC) (Primary Dx ) Start: 04-19-2022 End: 04-19-2022 Patient encounter procedure Joel Dykes MD Work Phone: Gastroenterology Comment on above: Inflammatory bowel disease Start: 04-18-2022 Refill Josselin Madrigal APRN.SQL ANALYST Work Phone: Endocrinology Comment on above: Refill Request Start: 04-08-2022 End: 04-08-2022 Subsequent hospital visit by physician [facility] Radiology Comment on above: Inflammatory bowel disease [K52.9] Start: 04-07-2022 End: 04-07-2022 Admission to same day surgery center Sánchez Bedolla PT, DPT Work Phone: [facility] Comment on above: Chronic right shoulder pain (Primary Dx) ; S/P shoulder surgery Start: 04-07-2022 End: 04-07-2022 ambulatory Sánchez Bedolla PT, DPT Work Phone: [facility] Start: 04-04-2022 End: 04-04-2022 ambulatory Sánchez Bedolla PT, DPT Work Phone: [facility] Comment on above: Lateral epicondylitis of left elbow (Kerri treasure Dx) Start: 03-28-2022 End: 03-28-2022 Patient encounter procedure Steve Juarez PERMIT TECHNICIAN.SQL ANALYST Work Phone: Rheumatology Comment on above: Seronegative spondyloarthropathy (Primar y Dx); Osteoarthritis of spine, unspecified spinal osteoarthritis complication status, unspecified spinal region Start: 03-24-2022 End: 03-24-2022 Orders Only Malathi Rodriguez MD Work Phone: Colorectal Surgery Comment on above: Inflammatory bowel disease Attention to ileosto my (HCC) (Primary Dx) Start: 03-18-2022 End: 03-18-2022 Admission to same day surgery center Sánchez Bedolla PT, DPT Work Phone: [facility] Comment on above: Chronic right shoulder pain (Primary Dx) ; S/P shoulder surgery Start: 03-18-2022 End: 03-18-2022 ambulatory Sánchez Bedolla PT, DPT Work Phone: [facility] Start: 03-09-2022 ambulatory Lara Reeder DO Work Phone: Orthopaedics Comment on above: Physical therapy Start: 03-07-2022 End: 03-07-2022 ambulatory Mika Simmons DO Work Phone: Orthopedics Comment on above: Lateral epicondylitis of left elbow (Kerri treasure Dx) Start: 03-07-2022 End: 03-07-2022 Telemedicine consultation with patient Mika Simmons DO Work Phone: [place] Start: 03-04-2022 ambulatory Grayson Phan MD Work Phone: Internal Medicine [place] Comment on above: Dizziness Start: 02-28-2022 End: 02-28-2022 ambulatory Sánchez Bedolla PT, DPT Work Phone: [facility] Comment on above: Lateral epicondylitis of left elbow (Kerri treasure Dx) Start: 02-22-2022 End: 02-22-2022 Patient encounter procedure Savanna Flores Work Phone: Podiatry Comment on above: Ingrowing toenail of right foot (Primary Dx); Ingrown toenail of left foot; Onychodystrophy; 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, with long-term current use of insulin (HCC); Plantar fasciitis; Diminished pulses in lower extremity Start: 02-08-2022 End: 02-08-2022 [facility] Comment on above: Lateral epicondylitis of left elbow (Kerri treasure Dx) Start: 02-03-2022 End: 02-03-2022 Patient encounter procedure [facility] Start: 09-24-2021 End: 09-24-2021 Subsequent hospital visit by physician [facility] Work Phone: Radiology Comment on above: Encounter for long-term (current) use of medications [Z79.899] Procedures Date Procedure Procedure Detail Performing Clinician Start: 04-10-2025 End: 04-10-2025 Us compl joint r-t w/image documentation Scott Gold MD Work Phone: Start: 12-18-2024 Urnls dip stick/tablet rgnt auto w/o microscopy Samy Barragan PA-C Work Phone: Start: 08-12-2024 Adult depression screening assessment Grayson Phan MD Work Phone: Start: 05-20-2024 Hemoglobin A1c/Hemoglobin.total in Blood Alie Stallworth APRN.SQL ANALYST Work Phone: Start: 05-15-2024 Urnls dip stick/tablet rgnt auto w/o microscopy Samy Barragan PA-C Work Phone: Start: 02-16-2024 Hemoglobin A1c/Hemoglobin.total in Blood Alie Stallworth PERMIT TECHNICIAN.[facility] Work Phone: Start: 01-19-2024 CT of abdomen and pelvis without contrast Start: 11-07-2023 Radiologic exam chest 2 views Jaimee Bernal PASaryC Work Phone: Start: 10-04-2023 Radex wrist complete minimum 3 views Albina Long PERMIT TECHNICIAN.SQL ANALYST Work Phone: Start: 09-25-2023 Dxa bone density study 1/> sites axial skel Panda Harrison MD Work Phone: Start: 07-24-2023 Hemoglobin A1c/Hemoglobin.total in Blood Panda Harrison MD Work Phone: Start: 05-29-2023 Urnls dip stick/tablet rgnt auto w/o microscopy Safia Jamil MD Work Phone: Start: 05-02-2023 End: 05-02-2023 Enterosc >2nd prtn w/ileum w/wo collj spec spx Albina Rodgers PERMIT TECHNICIAN.[facility] Work Phone: Start: 01-27-2023 Tenotomy elbow lateral/medial percutaneous Mika Simmons DO Work Phone: Start: 01-27-2023 Us guidance needle placement img s&i Mika Simmons DO Work Phone: Start: 01-27-2023 Arthrocentesis aspir&/inj interm jt/burs w/us Mika Simmons DO Work Phone: Start: 01-05-2023 Liver elastography w/o imag w/i&r Safia Kennedy PA-C Work Phone: Start: 01-05-2023 Liver elastography w/o imag w/i&r Safia Kennedy PA-C Work Phone: Start: 12-20-2022 Hemoglobin A1c/Hemoglobin.total in Blood Panda Harrison MD Work Phone: Start: 12-08-2022 Us pelvic nonobstetric real-time image complete Safia Jamil MD Work Phone: Start: 12-08-2022 Urine test visual color cmprsn meths Safia Jamil MD Work Phone: Start: 12-01-2022 Urine test visual color cmprsn meths Safia Jamil MD Work Phone: Start: 11-28-2022 Us pelvic nonobstetric real-time image complete Safia Jamil MD Work Phone: Start: 11-17-2022 End: 11-17-2022 Urnls dip stick/tablet reagent auto microscopy Safia Jamil MD Work Phone: Start: 11-17-2022 BACTERIAL VAGINOSIS AMPLIFICATION Safia Jamil MD Work Phone: Start: 11-17-2022 Urnls dip stick/tablet rgnt auto w/o microscopy Safia Jamil MD Work Phone: Start: 10-13-2022 Mammography Panda Harrison MD Work Phone: Start: 09-12-2022 Us lmtd joint/oth nonvasc xtr strux r-t w/img Mika Simmons DO Work Phone: Start: 04-08-2022 Ct abdomen & pelvis w/contrast material Malathi Rodriguez MD Work Phone: Start: 09-24-2021 Radiologic exam chest 2 views Steve Juarez PERMIT TECHNICIAN.SQL ANALYST Work Phone: Start: 03-18-2021 Adult depression screening assessment Gricelda Baker [employer]ISTANCE Start: 11-27-2018 Mammography Gricelda Jolley [employer] Start: 09-28-2007 H/O: ileostomy Ileostomy status Gricelda Samreen BRAZER RESISTANCE H/O: ileostomy Ileostomy status ([facility]) Grayson Phan MD Work Phone: H/O: ileostomy Ileostomy status (HCC) Grayson Phan MD Work Phone: Plan of Treatment Date Care Activity Detail Author Start: 2034 HEPATITIS B (1 of 3 - Risk 3-dose series) HEPATITIS B (1 of 3 - Risk 3-dose series) [facility] Start: 06-11-2028 Urine microalbumin profile [facility] Start: 05-05-2026 Glaucoma screening Dilated Retinal Exam [facility] Start: 03-30-2026 End: 03-30-2026 Patient encounter procedure 03/30/2026 10:00 AM EDT Office Visit Rheumatology [address] [place] [address] Scott Gold MD [address] [place] [address] 1 year follow up Rheumatology Comment on above: 1 year follow up Start: 02-14-2026 Hepatitis B screening Urine Albumin:Creatinine Ratio [facility] Start: 12-18-2025 Hepatitis B surface antibody level LDL Cholesterol [facility] Start: 08-25-2025 End: 08-25-2025 Patient encounter procedure 08/25/2025 10:00 AM EDT Office Visit Rheumatology [address] [place] [address] Steve Juarez, CHRISTOPH.SQL ANALYST [address] [place] [address] 20m follow up Rheumatology Comment on above: 20m follow up Start: 08-12-2025 Annual PCP Team Chronic Disease Visit Annual PCP Team Chronic Disease Visit [facility] Start: 08-12-2025 Anxiety Screening Anxiety Screening [facility] Start: 08-12-2025 Depression Screening Depression Screening [facility] Start: 08-12-2025 End: 08-12-2025 Patient encounter procedure [facility] [place] Comment on above: Yearly AWV AWV /HCC Gap Closure Start: 07-30-2025 End: 07-30-2025 Patient encounter procedure 07/30/2025 3:00 PM EDT Office Visit Urology [address] [place] [address] Samy Barragan PA-C [address] [place] [address] 1 year follow up Urology Comment on above: 1 year follow up Start: 07-18-2025 End: 07-18-2025 Patient encounter procedure 07/18/2025 9:00 AM EDT Appointment Radiology [address] [place] [address] Nephrolithiasis [N20.0] Radiology Comment on above: Nephrolithiasis [N20.0] Start: 07-04-2025 End: 07-04-2025 Patient encounter procedure 07/04/2025 9:00 AM EDT Office Visit Orthopaedics [address] [address] Lara Reeder DO [address] [place], [place] [address] 6 week F/U right shoulder pain and left knee pain. Orthopaedics Comment on above: 6 week F/U right shoulder pain and left knee pain. 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] [facility] Comment on above: Ulnar neuropathy of right upper extremit y [G56.21] Start: 05-26-2025 End: 05-26-2025 ambulatory 05/26/2025 10:35 AM EDT Procedure Neurology 1 [facility] [place] [address] R ULNAR/UE Neurology Comment on above: R ULNAR/UE Start: 05-20-2025 End: 05-20-2025 Follow-up encounter Endocrinology Comment on above: 3 month follow up Start: 05-19-2025 End: 08-18-2025 Hemoglobin A1c in Blood [facility] Work Phone: Comment on above: Expected: 05/19/2025, Expires: Start: 05-09-2025 End: 05-09-2025 Patient encounter procedure Orthopaedics Comment on above: 6 week follow up 6 week F/U right verena ulder pain and left knee pain. Start: 05-08-2025 End: 05-08-2025 ambulatory 05/08/2025 3:45 PM EDT OT/PT/Speech Visit [facility] [address] [place] [address] Yuri Pitt, PT RE-EVAL [facility] Comment on above: RE-EVAL Start: 05-08-2025 Glaucoma screening Dilated Retinal Exam [facility] Start: 05-05-2025 End: 05-05-2025 Specialty Pharmacy 05/05/2025 11:00 AM EDT Specialty Pharmacy [facility] [address] [place], [place] [address]-[address] [place] [address] Pharmacist, [facility] [address] [place] [address] [place] [address] REFILL - Stelara (83D) PA on file- ND 05/14 [facility] Comment on above: REFILL - Stelara (83D) PA on file- [place] Start: 05-01-2025 End: 05-01-2025 ambulatory 05/01/2025 3:45 PM EDT OT/PT/Speech Visit [facility] [address] [place] [address] Yuri Pitt, PT shoulder and hip pain [facility] Comment on above: shoulder and hip pain Start: 04-24-2025 End: 04-24-2025 ambulatory 04/24/2025 4:30 PM EDT OT/PT/Speech Visit [facility] [address] [place] [address] Yuri Pitt, PT Pain in left hip [M25.552] [facility] Comment on above: Pain in left hip [M25.552] Start: 04-23-2025 End: 04-23-2025 Patient encounter procedure 04/23/2025 3:30 PM EDT Office Visit Orthopaedics [address] [address] Lara Reeder DO [address] [place] [address] 6 week follow up Orthopaedics Comment on above: 6 week follow up Start: 04-15-2025 End: 04-15-2025 ambulatory 04/15/2025 7:30 AM EDT OT/PT/Speech Visit [facility] [address] [place] [address] Rich Gonzalez, PT, DPT hip and shoulder pain [facility] Comment on above: hip and shoulder pain Start: 04-14-2025 End: 04-14-2025 Follow-up encounter 04/14/2025 2:40 PM EDT [facility] [address] [place] [address] Scott Gold MD [address] [place] [address] Follow up Rheumatology Comment on above: Follow up Start: 04-14-2025 End: 07-14-2025 BLOOD TB SCREEN BLOOD TB SCREEN Lab Routine Long-term use of immunosuppressant medication Expected: 04/14/2025, Expires: 07/14/2025 [facility] Work Phone: Comment on above: Expected: 04/14/2025, Expires: Start: 04-14-2025 End: 07-14-2025 Chronic hepatitis differentiation between hepatitis B and C virus panel - Serum or Plasma HEP REMOTE PANEL BL Lab Routine Long-term use of immunosuppressant medication Expected: 04/14/2025, Expires: 07/14/2025 [facility] Comment on above: Expected: 04/14/2025, Expires: Start: 04-10-2025 End: 04-10-2025 Patient encounter procedure 04/10/2025 9:15 AM EDT Appointment Radiology [address] [address] US HAND/WRIST SYNOVIAL SCREEN RT+LT Radiology Comment on above: US HAND/WRIST SYNOVIAL SCREEN RT+LT Start: 04-02-2025 End: 04-02-2025 ambulatory 04/02/2025 7:30 AM EDT OT/PT/Speech Visit [facility] [address] [place] [address] Yuri Pitt PT Pain in left hip [M25.552] [facility] Comment on above: Pain in left hip [M25.552] Start: 03-24-2025 End: 06-23-2025 Borrelia burgdorferi IgG and IgM panel - Serum [facility] Work Phone: Comment on above: Expected: 03/24/2025, Expires: Start: 03-24-2025 End: 03-24-2025 Patient encounter procedure Rheumatology Comment on above: 15m follow up Start: 03-17-2025 Hemoglobin A1c measurement HbA1C [facility] Start: 03-14-2025 End: 03-14-2025 Patient encounter procedure Orthopaedics Comment on above: Right shoulder pain right shoulder and l eft knee Start: 03-13-2025 End: 03-13-2025 Patient encounter procedure 03/13/2025 9:00 AM EDT Appointment Radiology [address] [place] [address] right shoulder Radiology Comment on above: right shoulder Start: 02-25-2025 End: 02-25-2025 ambulatory 02/25/2025 8:00 AM [facility] [address] [place] [address] [place] [address] [place] [address] DM Education Diabetic Education [facility] Comment on above: DM Education Start: 02-13-2025 End: 02-13-2025 Follow-up encounter 02/13/2025 9:00 AM EDT [facility] [address] [place] [id number] Alie Stallwotrh, PERMIT TECHNICIAN.SQL ANALYST [address] [place] [address] 3 month follow up Endocrinology Comment on above: 3 month follow up Start: 02-11-2025 End: 02-11-2025 Specialty Pharmacy 02/11/2025 11:15 AM EDT Specialty Pharmacy [facility] [address] [place] [address] Pharmacist, [facility] [address] [place] [address] REFILL - Stelara (83D) PA on file- ND 02/19 - pend new Rx [facility] Comment on above: REFILL - Stelara (83D) PA on file- ND pend new Rx Start: 02-07-2025 End: 02-07-2025 Specialty Pharmacy 02/07/2025 11:00 AM EDT Specialty Pharmacy [facility] [address] [place] [phone] Pharmacist, [facility] [address] [place] [address] REFILL - Stelara (84D) PA on file- ND 02/19 [facility] Comment on above: REFILL - Stelara (83D) PA on file- [place] Start: 01-22-2025 Annual PCP Team Chronic Disease Visit Annual PCP Team Chronic Disease Visit [facility] Start: 01-22-2025 Diabetic foot examination Diabetic Foot Exam [facility] Start: 01-22-2025 Screening for malignant neoplasm of breast Mammogram Screening [facility] Comment on above: Postponed from 10/13/2023 (Declined at t his time) Start: 01-09-2025 End: 04-10-2025 Basic metabolic 2000 panel - Serum or Plasma BASIC METABOLIC PANEL Lab Routine Nephrolithiasis Expected: 01/09/2025, Expires: 04/10/2025 [facility] Work Phone: Comment on above: Expected: 01/09/2025, Expires: Start: 12-24-2024 HPV TESTING HPV TESTING [facility] Start: 12-24-2024 PAP TESTING PAP TESTING [facility] Start: 12-24-2024 Screening for malignant neoplasm of cervix [facility] Start: 12-18-2024 End: 12-18-2024 ambulatory 12/18/2024 11:45 AM EST Results Only [facility] [address] [place] [address] [facility] Start: 12-18-2024 End: 12-18-2024 Patient encounter procedure 12/18/2024 11:00 AM EST Office Visit Urology [address] [place] [address] Samy Barragan PA-C [address] [place] [address] Hospital Follow Up Urology Comment on above: Hospital Follow Up Start: 12-16-2024 End: 12-16-2024 Patient encounter procedure 12/16/2024 3:40 PM EST Office Visit [facility] [address] [place] [address] [place], [place] [id number] Grayson Phan MD [address] [place], [place] [id number] Hospital Follow Up [facility] Comment on above: Hospital Follow Up Start: 12-03-2024 End: 10-22-2025 Alanine aminotransferase [Enzymatic activity/volume] in Serum or Plasma ALANINE AMINOTRANSFERASE / SGPT Lab Routine Seronegative spondyloarthropathy Encounter for long-term (current) use of medications Expected: 12/03/2024 (Approximate), Expires: 10/22/2025 [facility] Comment on above: Expected: 12/03/2024 (Approximate), Expi res: 10/22/2025 Start: 12-03-2024 End: 10-22-2025 Albumin [Mass/volume] in Serum or Plasma ALBUMIN Lab Routine Seronegative spondyloarthropathy Encounter for long-term (current) use of medications Expected: 12/03/2024 (Approximate), Expires: 10/22/2025 [facility] Comment on above: Expected: 12/03/2024 (Approximate), Expi res: 10/22/2025 Start: 12-03-2024 End: 10-22-2025 Aspartate aminotransferase [Enzymatic activity/volume] in Serum or Plasma ASPARTATE AMINOTRANSFERASE/SGOT Lab Routine Seronegative spondyloarthropathy Encounter for long-term (current) use of medications Expected: 12/03/2024 (Approximate), Expires: 10/22/2025 [facility] Comment on above: Expected: 12/03/2024 (Approximate), Expi res: 10/22/2025 Start: 12-03-2024 End: 10-22-2025 CBC W Auto Differential panel - Blood COMPLETE BLOOD COUNT AND DIFFERENTIAL Lab Routine Seronegative spondyloarthropathy Encounter for long-term (current) use of medications Expected: 12/03/2024 (Approximate), Expires: 10/22/2025 [facility] Work Phone: Comment on above: Expected: 12/03/2024 (Approximate), Expi res: 10/22/2025 Start: 12-03-2024 End: 10-22-2025 CREATININE BLD CREATININE BLD Lab Routine Seronegative spondyloarthropathy Encounter for long-term (current) use of medications Expected: 12/03/2024 (Approximate), Expires: 10/22/2025 [facility] Comment on above: Expected: 12/03/2024 (Approximate), Expi res: 10/22/2025 Start: 11-20-2024 End: 02-19-2025 Hemoglobin A1c in Blood HEMOGLOBIN A1C Lab Routine Type 2 diabetes mellitus with hyperglycemia, with long-term current use of insulin (HCC) Expected: 11/20/2024, Expires: 02/19/2025 [facility] Comment on above: Expected: 11/20/2024, Expires: Start: 11-20-2024 Hemoglobin A1c measurement HbA1C [facility] Start: 11-19-2024 End: 02-18-2025 Hemoglobin A1c in Blood HEMOGLOBIN A1C Lab Routine Type 2 diabetes mellitus with hyperglycemia, with long-term current use of insulin (HCC) Expected: 11/19/2024, Expires: 02/18/2025 [facility] Comment on above: Expected: 11/19/2024, Expires: Start: 11-19-2024 End: 02-18-2025 Iron and Iron binding capacity panel - Serum or Plasma IRON AND TIBC Lab Routine Type 2 diabetes mellitus with hyperglycemia, with long-term current use of insulin (HCC) Expected: 11/19/2024, Expires: 02/18/2025 [facility] Work Phone: Comment on above: Expected: 11/19/2024, Expires: Start: 11-19-2024 End: 02-18-2025 Lipid 1996 panel - Serum or Plasma LIPID PANEL BASIC Lab Routine Type 2 diabetes mellitus with hyperglycemia, with long-term current use of insulin (HCC) Expected: 11/19/2024, Expires: 02/18/2025 [facility] Comment on above: Expected: 11/19/2024, Expires: Start: 11-19-2024 End: 02-18-2025 Microalbumin/Creatinine [Mass Ratio] in Urine ALBUMIN/CREATININE RATIO, URINE Lab Routine Type 2 diabetes mellitus with hyperglycemia, with long-term current use of insulin (HCC) Expected: 11/19/2024, Expires: 02/18/2025 [facility] Comment on above: Expected: 11/19/2024, Expires: Start: 11-19-2024 End: 11-19-2024 Follow-up encounter Endocrinology Comment on above: Follow up Start: 11-18-2024 End: 11-18-2024 Specialty Pharmacy 11/18/2024 11:00 AM EST Specialty Pharmacy [facility] [place] [address] Pharmacist, [facility] [address] [place] [address] [place] [address] REFILL - Stelara (83D) PAx 11/12/24- 11/27 [facility] Comment on above: REFILL - Stelara (83D) PAx 11/12/24- 11/27 Start: 11-13-2024 Medicare Advantage Annual Wellness Visit Medicare Advantage Annual Wellness Visit [facility] Start: 11-08-2024 End: 02-07-2025 Lipid 1996 panel - Serum or Plasma LIPID PANEL BASIC Lab Routine Diabetes mellitus type 2 with ketoacidosis, uncontrolled (HCC) Expected: 11/08/2024, Expires: 02/07/2025 [facility] Comment on above: Expected: 11/08/2024, Expires: Start: 11-08-2024 End: 02-07-2025 Microalbumin/Creatinine [Mass Ratio] in Urine ALBUMIN/CREATININE RATIO, URINE Lab Routine Diabetes mellitus type 2 with ketoacidosis, uncontrolled (HCC) Expected: 11/08/2024, Expires: 02/07/2025 [facility] Comment on above: Expected: 11/08/2024, Expires: Start: 10-25-2024 End: 10-25-2024 Patient encounter procedure 10/25/2024 10:00 AM EST Office Visit Rheumatology [address] [place] [address] Steve Juarez, PERMIT TECHNICIAN.SQL ANALYST [address] [place] [address] 10m follow up Rheumatology Comment on above: 10m follow up Start: 08-30-2024 End: 08-30-2024 Specialty Pharmacy 08/30/2024 11:00 AM EDT Specialty Pharmacy [facility] [place] [address] Pharmacist, [facility] [address] [place] [address] [address] [place], [place] [id number] REFILL - Stelara (84D) PAx 11/12/24- NCA 01/07- 09/09 [facility] Comment on above: REFILL - Stelara (83D) PAx 11/12/24- NCA 01/07- ND 09/09 Start: 08-17-2024 Hemoglobin A1c measurement HbA1C [facility] Start: 08-14-2024 Hepatitis B screening Urine Albumin:Creatinine Ratio [facility] Start: 08-14-2024 Hepatitis B surface antibody level LDL Cholesterol [facility] Start: 08-12-2024 End: 08-12-2024 Patient encounter procedure 08/12/2024 12:40 PM EDT Office Visit [facility] [address] [place] [address] Grayson Phan MD [address] [place] [address] 6 month follow-up [facility] Comment on above: 6 month follow-up Start: 08-11-2024 Annual PCP Team Chronic Disease Visit Annual PCP Team Chronic Disease Visit [facility] Start: 07-25-2024 End: 07-25-2024 Patient encounter procedure 07/25/2024 10:40 AM EDT Office Visit [facility] [address] [place] [address] Grayson Phan MD [address] [place], [place] [address] 6 month follow-up [facility] Comment on above: 6 month follow-up Start: 07-17-2024 End: 07-17-2024 Patient encounter procedure 07/17/2024 3:30 PM EDT Office Visit Urology [address] [place] [address] Samy Barragan PA-C [address] [place] [address] Return in about 6 weeks (around 06/26/2024), or if symptoms worsen or fail to improve. Urology Comment on above: Return in about 6 weeks (around ), or if symptoms worsen or fail to improve. Start: 06-17-2024 End: 06-17-2024 Patient encounter procedure 06/17/2024 1:40 PM EDT Office Visit OB/Gynecology [address] [place] [address] Safia Jamil MD [address] [place] [address] Annual OB/Gynecology Comment on above: Annual Start: 06-07-2024 End: 06-07-2024 Patient encounter procedure 06/07/2024 1:00 PM EDT Office Visit Rheumatology [address] [place] [address] Steve Juarez APRN.SQL ANALYST [address] [place] [address] 5m follow up Rheumatology Comment on above: 5m follow up Start: 06-06-2024 End: 06-06-2024 Specialty Pharmacy 06/06/2024 11:00 AM EDT Specialty Pharmacy [facility] [place] [address] Pharmacist, [facility] [address] [place] [phone] REFILL - Stelara (84D) PAx 11/12/24- NCA 01/07- 06/17 [facility] Comment on above: REFILL - Stelara (84D) PAx 11/12/24- NCA 01/07- 06/17 Start: 05-30-2024 End: 05-30-2024 Patient encounter procedure 05/30/2024 10:45 AM EDT Appointment Radiology [address] [place] [address] US kidney/bladder Radiology Comment on above: US kidney/bladder Start: 05-24-2024 Glaucoma screening Dilated Retinal Exam [facility] Start: 05-24-2024 Hepatitis C antibody, confirmatory test DILATED RETINAL EXAM [facility] Start: 05-20-2024 End: 05-20-2024 Patient encounter procedure 05/20/2024 10:00 AM EDT Office Visit Endocrinology [address] [place] [address] Alie Stallworth, PERMIT TECHNICIAN.SQL ANALYST [address] [place] [address] Return in about 3 months (around 05/17/2024). Endocrinology Comment on above: Return in about 3 months (around ). Start: 05-15-2024 End: 08-14-2024 LITHOLINK 24HR URINE PANEL LITHOLINK 24HR URINE PANEL Lab Routine Nephrolithiasis Expected: 05/15/2024, Expires: 08/14/2024 [facility] Comment on above: Expected: 05/15/2024, Expires: Start: 05-15-2024 End: 05-15-2024 Patient encounter procedure 05/15/2024 1:00 PM EDT Office Visit Urology [address] [place] [address] Samy Barragan PA-C [address] [place] [address] frequent kidney stones Urology Comment on above: frequent kidney stones Start: 05-14-2024 Hemoglobin A1c measurement HbA1C [facility] Start: 03-15-2024 End: 03-15-2024 Specialty Pharmacy 03/15/2024 11:00 AM EDT Specialty Pharmacy [facility] [address] [place], [place] [address] [place] [address] Pharmacist, [facility] [address] [place] [address] REFILL - Stelara (84D) PA exp 11/12/24- NCA 12/2024- 03/25 [facility] Comment on above: REFILL - Stelara (84D) PA exp 11/12/24- NCA 12/2024- 03/25 Start: 02-07-2024 3 comp foot exam completed DIABETIC FOOT EXAM [facility] Start: 02-07-2024 ANNUAL PCP TEAM CHRONIC DISEASE VISIT ANNUAL PCP TEAM CHRONIC DISEASE VISIT [facility] Start: 02-07-2024 Diabetic foot examination Diabetic Foot Exam [facility] Start: 02-07-2024 SHINGRIX VACCINE (1 of 2) SHINGRIX VACCINE (1 of 2) [facility] Comment on above: Postponed from 1993 (Declined at t his time) Start: 01-22-2024 Hemoglobin A1c/Hemoglobin.total in Blood HBA1C [facility] Start: 01-20-2024 ANNUAL PCP TEAM CHRONIC DISEASE VISIT ANNUAL PCP TEAM CHRONIC DISEASE VISIT [facility] Start: 01-19-2024 [facility] Start: 01-09-2024 Procedure [facility] Start: 11-13-2023 Behavioral Health Screening Behavioral Health Screening [facility] Start: 11-13-2023 Depression Assessment Depression Assessment [facility] Start: 10-13-2023 Mammography [facility] Start: 10-13-2023 Screening for malignant neoplasm of breast Mammogram Screening [facility] Start: 08-12-2023 End: 10-12-2023 Iron and Iron binding capacity panel - Serum or Plasma IRON + TIBC Lab Routine Non-alcoholic fatty liver disease Expected: 08/12/2023, Expires: 10/12/2023 [facility] Work Phone: Comment on above: Expected: 08/12/2023, Expires: 3 Start: 08-12-2023 End: 10-12-2023 Lipid 1996 panel - Serum or Plasma LIPID PANEL BASIC Lab Routine Mixed hyperlipidemia Expected: 08/12/2023, Expires: 10/12/2023 [facility] Work Phone: Comment on above: Expected: 08/12/2023, Expires: 3 Start: 08-11-2023 End: 10-11-2023 ALBUMIN/CREAT RATIO RND UR ALBUMIN/CREAT RATIO RND UR Lab Routine Type 2 diabetes mellitus treated with insulin (HCC) Expected: 08/11/2023, Expires: 10/11/2023 [facility] Work Phone: Comment on above: Expected: 08/11/2023, Expires: 3 Start: 08-09-2023 Hepatitis B screening URINE ALBUMIN:CREATININE RATIO [facility] Start: 08-09-2023 Hepatitis B surface antibody level LDL CHOLESTEROL [facility] Start: 08-08-2023 ANNUAL PCP TEAM CHRONIC DISEASE VISIT ANNUAL PCP TEAM CHRONIC DISEASE VISIT [facility] Start: 08-08-2023 HEPATITIS A (1 of 2 - Risk 2-dose series) HEPATITIS A (1 of 2 - Risk 2-dose series) [facility] Comment on above: Postponed from 1975 (Declined at t his time) Postponed from 12/25 (Declined at this time) Start: 08-08-2023 Hepatitis A Vaccine (1 of 2 - Risk 2-dose series) Hepatitis A Vaccine (1 of 2 - Risk 2-dose series) [facility] Comment on above: Postponed from 1993 (Declined at t his time) Start: 08-08-2023 Meningococcal B Vaccine: Consider Based On Risk (1 of 4 - Increased Risk) Meningococcal B Vaccine: Consider Based On Risk (1 of 4 - Increased Risk) [facility] Comment on above: Postponed from 1984 (Declined at t his time) Start: 08-08-2023 MENINGOCOCCAL B: Consider based on risk (1 of 4 - Increased Risk Bexsero 2-dose series) MENINGOCOCCAL B: Consider based on risk (1 of 4 - Increased Risk Bexsero 2-dose series) [facility] Comment on above: Postponed from 1984 (Declined at t his time) Start: 08-08-2023 MENINGOCOCCAL B: Consider based on risk (1 of 4 - Increased Risk) MENINGOCOCCAL B: Consider based on risk (1 of 4 - Increased Risk) [facility] Comment on above: Postponed from 1984 (Declined at t his time) Start: 08-08-2023 MMR (1 of 2 - Risk 2-dose series) MMR (1 of 2 - Risk 2-dose series) [facility] Comment on above: Postponed from 1992 (Declined at t his time) Start: 08-08-2023 MMR Vaccine (1 of 2 - Risk 2-dose series) MMR Vaccine (1 of 2 - Risk 2-dose series) [facility] Comment on above: Postponed from 1992 (Declined at t his time) Start: 07-24-2023 End: 09-23-2023 Basic metabolic 2000 panel - Serum or Plasma BASIC METABOLIC PNL Lab Routine Type 2 diabetes mellitus treated with insulin (HCC) Expected: 07/24/2023, Expires: 09/23/2023 [facility] Work Phone: Comment on above: Expected: 07/24/2023, Expires: Start: 06-19-2023 Hemoglobin A1c/Hemoglobin.total in Blood HBA1C [facility] Start: 05-05-2023 Hepatitis C antibody, confirmatory test DILATED RETINAL EXAM [facility] Start: 02-06-2023 Hemoglobin A1c/Hemoglobin.total in Blood HBA1C [facility] Start: 02-01-2023 Hepatitis C antibody, confirmatory test DILATED RETINAL EXAM [facility] Start: 01-27-2023 3 comp foot exam completed DIABETIC FOOT EXAM [facility] Start: 01-27-2023 ANNUAL PCP TEAM CHRONIC DISEASE VISIT ANNUAL PCP TEAM CHRONIC DISEASE VISIT [facility] Start: 01-27-2023 Mammography MAMMOGRAM [facility] Comment on above: Postponed from 11/27/2019 (Declined at t his time) Start: 01-19-2023 End: 12-22-2023 PELVIC US WHI PELVIC US I Anc Imaging Routine Cyst of ovary, unspecified laterality Pelvic pain in female IUD (intrauterine device) in place Expected: 01/19/2023 (Approximate), Expires: 12/22/2023 [facility] Work Phone: Comment on above: Expected: 01/19/2023 (Approximate), Expi res: 12/22/2023 Start: 01-04-2023 DDI VIBRATION CONTROLLED TRANSIENT ELASTOGRAPHY (VCTE) DDI VIBRATION CONTROLLED TRANSIENT ELASTOGRAPHY (VCTE) Procedures Routine Non-alcoholic fatty liver disease Expected: 01/04/2023 (Approximate) [facility] Work Phone: Comment on above: Expected: 01/04/2023 (Approximate) Start: 12-01-2022 End: 01-31-2023 Follitropin [Units/volume] in Serum or Plasma [facility] Work Phone: Comment on above: Expected: 12/01/2022, Expires: 3 Start: 12-01-2022 End: 12-01-2023 PELVIC US WHI PELVIC US WHI Anc Imaging Routine Encounter for IUD insertion Expected: 12/01/2022, Expires: 12/01/2023 [facility] Work Phone: Comment on above: Expected: 12/01/2022, Expires: 4 Start: 11-17-2022 End: 11-17-2023 PELVIC US WHI PELVIC US WHI Anc Imaging Routine Pelvic pain in female Expected: 11/17/2022, Expires: 11/17/2023 [facility] Work Phone: Comment on above: Expected: 11/17/2022, Expires: 4 Start: 11-13-2022 DEPRESSION ASSESSMENT DEPRESSION ASSESSMENT [facility] Start: 11-09-2022 Hemoglobin A1c/Hemoglobin.total in Blood HBA1C [facility] Start: 07-26-2022 End: 09-25-2022 Hemoglobin A1c in Blood HGB A1C Lab Routine Non-alcoholic fatty liver disease Expected: 07/26/2022, Expires: 09/25/2022 [facility] Work Phone: Comment on above: Expected: 07/26/2022, Expires: 2 Start: 07-26-2022 End: 09-25-2022 Lipid 1996 panel - Serum or Plasma LIPID PANEL BASIC Lab Routine Non-alcoholic fatty liver disease Expected: 07/26/2022, Expires: 09/25/2022 [facility] Work Phone: Comment on above: Expected: 07/26/2022, Expires: 2 Start: 07-21-2022 Procedure [facility] Work Phone: Start: 05-18-2022 Hepatitis B screening URINE ALBUMIN:CREATININE RATIO [facility] Start: 05-18-2022 Hepatitis B surface antibody level LDL CHOLESTEROL [facility] Start: 05-10-2022 End: 07-10-2022 25-hydroxyvitamin D3 [Mass/volume] in Serum or Plasma VITAMIN D 25 HYDROXY Lab Routine Bone loss Expected: 05/10/2022, Expires: 07/10/2022 [facility] Work Phone: Comment on above: Expected: 05/10/2022, Expires: 2 Start: 04-19-2022 End: 06-19-2022 BLOOD TB SCREEN [facility] Work Phone: Comment on above: Expected: 04/19/2022, Expires: 2 Start: 04-19-2022 End: 06-19-2022 C reactive protein [Mass/volume] in Serum or Plasma [facility] Work Phone: Comment on above: Expected: 04/19/2022, Expires: 2 Start: 04-19-2022 End: 06-19-2022 Calprotectin [Mass/mass] in Stool CALPROTECTIN,FECAL Lab Routine Inflammatory bowel disease Expected: 04/19/2022, Expires: 06/19/2022 [facility] Work Phone: Comment on above: Expected: 04/19/2022, Expires: 2 Start: 04-19-2022 End: 06-19-2022 Chronic hepatitis differentiation between hepatitis B and C virus panel - Serum or Plasma [facility] Work Phone: Comment on above: Expected: 04/19/2022, Expires: 2 Start: 04-19-2022 End: 06-19-2022 Comprehensive metabolic 2000 panel - Serum or Plasma [facility] Work Phone: Comment on above: Expected: 04/19/2022, Expires: 2 Start: 04-19-2022 End: 06-19-2022 COPPER BLOOD [facility] Work Phone: Comment on above: Expected: 04/19/2022, Expires: 2 Start: 04-19-2022 End: 06-19-2022 Belle Jansen virus capsid IgG Ab [Units/volume] in Serum [facility] Work Phone: Comment on above: Expected: 04/19/2022, Expires: 2 Start: 04-19-2022 End: 06-19-2022 FERRITIN BLD [facility] Work Phone: Comment on above: Expected: 04/19/2022, Expires: 2 Start: 04-19-2022 End: 06-19-2022 HEPATITIS A ANTIBODY, IGG [facility] Work Phone: Comment on above: Expected: 04/19/2022, Expires: 2 Start: 04-19-2022 End: 06-19-2022 Hepatitis B virus surface Ab [Units/volume] in Serum [facility] Work Phone: Comment on above: Expected: 04/19/2022, Expires: 2 Start: 04-19-2022 End: 06-19-2022 IRON + TIBC [facility] Work Phone: Comment on above: Expected: 04/19/2022, Expires: 2 Start: 04-19-2022 End: 06-19-2022 Methylmalonate [Moles/volume] in Serum or Plasma [facility] Work Phone: Comment on above: Expected: 04/19/2022, Expires: 2 Start: 04-19-2022 End: 06-19-2022 TPMT PHENOTYPE/ENZYME ACTIVITY [facility] Work Phone: Comment on above: Expected: 04/19/2022, Expires: 2 Start: 04-19-2022 End: 06-19-2022 VARICELLA ZOSTER IGG [facility] Work Phone: Comment on above: Expected: 04/19/2022, Expires: 2 Start: 04-19-2022 End: 06-19-2022 VITAMIN B12 BLOOD [facility] Work Phone: Comment on above: Expected: 04/19/2022, Expires: 2 Start: 04-19-2022 End: 06-19-2022 VITAMIN D 25 HYDROXY [facility] Work Phone: Comment on above: Expected: 04/19/2022, Expires: 2 Start: 04-03-2022 Hemoglobin A1c/Hemoglobin.total in Blood HBA1C [facility] Start: 03-18-2022 Adult depression screening assessment DEPRESSION SCREENING [facility] Start: 11-13-2021 DEPRESSION ASSESSMENT DEPRESSION ASSESSMENT [facility] Start: 12-24-2020 Screening for malignant neoplasm of cervix Cervical Cancer Screening [facility] Start: 2019 COLOGUARD (FIT-DNA) COLOGUARD (FIT-DNA) [facility] Start: 2019 Colonoscopy COLONOSCOPY [facility] Start: [address] COLONOGRAPHY [facility] Start: 2019 FECAL OCCULT BLOOD FECAL OCCULT BLOOD [facility] Start: 2019 Screening for malignant neoplasm of colon [facility] Start: 2019 SIGMOIDOSCOPY SIGMOIDOSCOPY [facility] Start: 02-11-2009 PNEUMOCOCCAL (2 - PCV) PNEUMOCOCCAL (2 - PCV) [facility] Start: 02-11-2009 Pneumococcal Vaccine: 50+ (2 of 2 - PCV) Pneumococcal Vaccine: 50+ (2 of 2 - PCV) [facility] Start: 1993 HEPATITIS B (1 of 3 - Risk 3-dose series) HEPATITIS B (1 of 3 - Risk 3-dose series) [facility] Start: 1993 SHINGRIX VACCINE (1 of 2) SHINGRIX VACCINE (1 of 2) [facility] Start: 1992 Anxiety Screening Anxiety Screening [facility] Start: 1992 Depression Screening Depression Screening [facility] Start: 1992 MMR (1 of 2 - Risk 2-dose series) MMR (1 of 2 - Risk 2-dose series) [facility] Start: 1984 MENINGOCOCCAL B: Consider based on risk (1 of 4 - Increased Risk Bexsero 2-dose series) MENINGOCOCCAL B: Consider based on risk (1 of 4 - Increased Risk Bexsero 2-dose series) [facility] Start: 1975 HEPATITIS A (1 of 2 - Risk 2-dose series) HEPATITIS A (1 of 2 - Risk 2-dose series) [facility] Bacteria identified in Urine by Culture URINE CULTURE Microbiology Routine Pelvic pain in female 11/17/2022 1:26 PM EST [facility] Work Phone: CALCIUM 24 HR URINE CALCIUM 24 H R URINE Lab Routine Hypercalcemia Ordered: 05/10/2022 [facility] Work Phone: Comment on above: Ordered: 05/10/2022 CALCIUM 24 HR URINE CALCIUM 24 H R URINE Lab Routine Hypercalcemia Ordered: 05/17/2022 [facility] Work Phone: Comment on above: Ordered: 05/17/2022 CALCIUM 24 HR URINE CALCIUM 24 H R URINE Lab Routine Hypercalciuria Hypercalcemia Ordered: 09/20/2022 [facility] Work Phone: Comment on above: Ordered: 09/20/2022 CALCIUM 24 HR URINE CALCIUM 24 H R URINE Lab Routine Hypercalciuria Ordered: 11/25/2022 [facility] Work Phone: Comment on above: Ordered: 11/25/2022 CREATININE 24 HR UR CREATININE 2 4 HR UR Lab Routine Hypercalcemia Ordered: 05/10/2022 [facility] Work Phone: Comment on above: Ordered: 05/10/2022 CREATININE 24 HR UR CREATININE 2 4 HR UR Lab Routine Hypercalcemia Ordered: 05/17/2022 [facility] Work Phone: Comment on above: Ordered: 05/17/2022 CREATININE 24 HR UR CREATININE 2 4 HR UR Lab Routine Hypercalciuria Hypercalcemia Ordered: 09/20/2022 [facility] Work Phone: Comment on above: Ordered: 09/20/2022 CREATININE 24 HR UR CREATININE 2 4 HR UR Lab Routine Hypercalciuria Ordered: 11/25/2022 [facility] Work Phone: Comment on above: Ordered: 11/25/2022 End: 04-23-2023 Ct abdomen & pelvis w/contrast material CT ENTEROGRAPHY W IVCON Radiology Routine Inflammatory bowel disease 1 Occurrences starting 03/24/2022 until 04/23/2023 [facility] Work Phone: Comment on above: 1 Occurrences starting 03/24/2022 until 04/23/2023 End: 07-17-2025 DBT Breast - bilateral screening SÁNCHEZ SCREENING W JAZIEL Radiology Routine Encounter for screening mammogram for breast cancer 1 Occurrences starting 06/17/2024 until 07/17/2025 [facility] Work Phone: Comment on above: 1 Occurrences starting 06/17/2024 until 07/17/2025 End: 08-22-2024 DXA-AXIAL SKELETON DXA-AXIAL SKELETON Radiology Routine Primary hyperparathyroidism (HCC) 1 Occurrences starting 07/24/2023 until 08/22/2024 [facility] Work Phone: Comment on above: 1 Occurrences starting 07/24/2023 until 08/22/2024 End: 02-05-2024 DXA-FOREARM SKELETON DXA-FOREARM SKELETON Radiology Routine Hyperparathyroidism (HCC) 1 Occurrences starting 01/06/2023 until 02/05/2024 [facility] Work Phone: Comment on above: 1 Occurrences starting 01/06/2023 until 02/05/2024 End: 08-22-2024 DXA-FOREARM SKELETON DXA-FOREARM SKELETON Radiology Routine Primary hyperparathyroidism (HCC) 1 Occurrences starting 07/24/2023 until 08/22/2024 [facility] Work Phone: Comment on above: 1 Occurrences starting 07/24/2023 until 08/22/2024 End: 12-22-2023 EGD DIAGNOSTIC EGD DIAGNOSTIC Endoscopy Routine Inflammatory bowel disease 1 Occurrences starting 12/22/2022 until 12/22/2023 [facility] Work Phone: Comment on above: 1 Occurrences starting 12/22/2022 until 12/22/2023 Hemoglobin A1c/Hemoglobin.total in Blood HEMOGLOBIN A1C (POC) Lab Routine Type 2 diabetes mellitus with hyperglycemia, without long-term current use of insulin (HCC) Ordered: 12/20/2022 [facility] Work Phone: Comment on above: Ordered: 12/20/2022 Hemoglobin A1c/Hemoglobin.total in Blood HEMOGLOBIN A1C (POC) Lab Routine Type 2 diabetes mellitus treated with insulin ([facility]) Ordered: 07/24/2023 [facility] Work Phone: Comment on above: Ordered: 07/24/2023 Hemoglobin A1c/Hemoglobin.total in Blood HEMOGLOBIN A1C (POC) Lab Routine Diabetes mellitus type 2 with ketoacidosis, uncontrolled (HCC) Ordered: 05/20/2024 [facility] Work Phone: Comment on above: Ordered: 05/20/2024 Hemoglobin A1c/Hemoglobin.total in Blood HEMOGLOBIN A1C (POC) Lab Routine Type 2 diabetes mellitus with hyperglycemia, with long-term current use of insulin (HCC) Ordered: 02/16/2024 [facility] Work Phone: Comment on above: Ordered: 02/16/2024 End: 07-26-2023 Hepatic function 2000 panel - Serum or Plasma HEPATIC FUNCTION PNL Lab Routine Non-alcoholic fatty liver disease Every 3 months for 2 Occurrences starting 07/26/2022 until 07/26/2023 [facility] Work Phone: Comment on above: Every 3 months for 2 Occurrences startin g 07/26/2022 until 07/26/2023 End: 12-22-2023 ILEOSCOPY ILEOSCOPY Endoscopy Routine Inflammatory bowel disease 1 Occurrences starting 12/22/2022 until 12/22/2023 [facility] Work Phone: Comment on above: 1 Occurrences starting 12/22/2022 until 12/22/2023 Insertion intrauteri ne device iud INSERT INTRAUTERINE DEVICE Procedures Routine Contraception, device intrauterine Encounter for IUD insertion 1 Occurrences starting 11/17/2022 [facility] Work Phone: Comment on above: 1 Occurrences starting 11/17/2022 Insertion intrauteri ne device iud INSERT INTRAUTERINE DEVICE Procedures Routine Contraception, device intrauterine Encounter for IUD insertion Ordered: 12/01/2022 [facility] Work Phone: Comment on above: Ordered: 12/01/2022 Insertion intrauteri ne device iud INSERT INTRAUTERINE DEVICE Procedures Routine Encounter for IUD insertion Ordered: 12/08/2022 [facility] Work Phone: Comment on above: Ordered: 12/08/2022 End: 12-17-2023 SÁNCHEZ SCREENING SÁNCHEZ SCREENING Radiology Routine Encounter for screening mammogram for breast cancer 1 Occurrences starting 11/17/2022 until 12/17/2023 [facility] Work Phone: Comment on above: 1 Occurrences starting 11/17/2022 until 12/17/2023 End: 06-27-2024 SÁNCHEZ SCREENING SÁNCHEZ SCREENING Radiology Routine Encounter for screening mammogram for breast cancer 1 Occurrences starting 05/29/2023 until 06/27/2024 [facility] Work Phone: Comment on above: 1 Occurrences starting 05/29/2023 until 06/27/2024 End: 02-05-2024 Parathyroid imaging w/tomographic spect & ct NM PARATHYROID W SPECT/CT Radiology Routine Hyperparathyroidism (HCC) 1 Occurrences starting 01/06/2023 until 02/05/2024 [facility] Work Phone: Comment on above: 1 Occurrences starting 01/06/2023 until 02/05/2024 Patient Education ED Flank Pain, Uncertain Cause ED Vomiting (Adult) [facility] Work Phone: Patient referral [facility] Work Phone: Procedure [facility] Work Phone: PT PLAN OF CARE CERTIFICATION PT PLAN OF CARE CERTIFICATION Procedures Routine Lateral epicondylitis of left elbow Ordered: 02/28/2022 [facility] Work Phone: Comment on above: Ordered: 02/28/2022 PT PLAN OF CARE CERTIFICATION PT PLAN OF CARE CERTIFICATION Procedures Routine S/P shoulder surgery Chronic right shoulder pain Ordered: 03/18/2022 [facility] Work Phone: Comment on above: Ordered: 03/18/2022 PT PLAN OF CARE CERTIFICATION PT PLAN OF CARE CERTIFICATION Procedures Routine Right shoulder pain, unspecified chronicity S/P shoulder surgery Ordered: 05/10/2022 [facility] Comment on above: Ordered: 05/10/2022 PT PLAN OF CARE CERTIFICATION PT PLAN OF CARE CERTIFICATION Procedures Routine Right tennis elbow Pain in right elbow Chronic right shoulder pain Ordered: 02/17/2023 [facility] Work Phone: Comment on above: Ordered: 02/17/2023 PT PLAN OF CARE CERTIFICATION PT PLAN OF CARE CERTIFICATION Procedures Routine Pain in right elbow Right shoulder pain, unspecified chronicity Ordered: 04/11/2023 [facility] Work Phone: Comment on above: Ordered: 04/11/2023 End: 02-22-2023 PVR ANK PRESS [facility]VR ANK PRESS [facility] Vascular Lab Routine Ingrown toenail of left foot Ingrowing toenail of right foot Diminished pulses in lower extremity 1 Occurrences starting 02/22/2022 until 02/22/2023 [facility] Work Phone: Comment on above: 1 Occurrences starting 02/22/2022 until 02/22/2023 SURGICAL PATHOLOGY [facility] Work Phone: Comment on above: Release Upon Ordering for 1 Occurrences starting 05/02/2023, 1 completed End: 11-09-2024 US HAND/FINGER LEFT US HAND/FINGER LEFT Radiology Routine Left hand pain 1 Occurrences starting 10/11/2023 until 11/09/2024 [facility] Work Phone: Comment on above: 1 Occurrences starting 10/11/2023 until 11/09/2024 End: 06-15-2025 US Kidney - bilateral and Urinary bladder US KIDNEY/BLADDER Radiology Routine Nephrolithiasis 1 Occurrences starting 05/15/2024 until 06/15/2025 [facility] Work Phone: Comment on above: 1 Occurrences starting 05/15/2024 until 06/15/2025 US Kidney - bilatera l and Urinary bladder US KIDNEY/BLADDER Radiology Routine Nephrolithiasis 05/30/2024 11:13 AM EDT [facility] Work Phone: End: 08-16-2025 US Kidney - bilateral and Urinary bladder US KIDNEY/BLADDER Radiology Routine Nephrolithiasis 1 Occurrences starting 07/17/2024 until 08/16/2025 [facility] Work Phone: Comment on above: 1 Occurrences starting 07/17/2024 until 08/16/2025 End: 08-12-2023 Us lmtd joint/oth nonvasc xtr strux r-t w/img US ELBOW RT Radiology Routine Lateral epicondylitis of right elbow 1 Occurrences starting 07/13/2022 until 08/12/2023 [facility] Work Phone: Comment on above: 1 Occurrences starting 07/13/2022 until 08/12/2023 US THYROID/PARATHYRO ID (POC) ENDO USE ONLY US THYROID/PARATHYROID (POC) ENDO USE ONLY Imaging Diagnostic Routine Hypercalcemia Ordered: 01/17/2023 [facility] Work Phone: Comment on above: Ordered: 01/17/2023 End: 12-17-2023 Us transvaginal US FEMALE PELVIS TRANSVAG Radiology Routine Pelvic pain in female 1 Occurrences starting 11/17/2022 until 12/17/2023 [facility] Work Phone: Comment on above: 1 Occurrences starting 11/17/2022 until 12/17/2023 End: 04-23-2026 US Upper extremity - left US HAND/WRIST SYNOVIAL SCREEN LEFT Radiology Routine Pain in joint, multiple sites Joint swelling 1 Occurrences starting 03/24/2025 until 04/23/2026 [facility] Comment on above: 1 Occurrences starting 03/24/2025 until 04/23/2026 End: 04-23-2026 US Upper extremity - right US HAND/WRIST SYNOVIAL SCREEN RIGHT Radiology Routine Pain in joint, multiple sites Joint swelling 1 Occurrences starting 03/24/2025 until 04/23/2026 [facility] Comment on above: 1 Occurrences starting 03/24/2025 until 04/23/2026 XR Knee - left 4 Views XR KNEE G ENERAL 4V AP BOTH/PA BOTH/LAT/MERC LEFT Radiology Routine Left knee pain, unspecified chronicity 03/14/2025 9:52 AM EDT [facility] Work Phone: XR Pelvis and Hip - left AP and Lateral frog XR HIP GENERAL 3V PELV/AP/LAT LEFT Radiology Routine Pain in left hip 03/14/2025 10:49 AM EDT [facility] XR Shoulder - right 3 Views XR SHOULDER GENERAL 3V OR MORE AP/TRUE AP/OTHER RIGHT Radiology Routine Pain 03/14/2025 9:52 AM EDT [facility] Work Phone: [facility] Immunizations Immunization Date Immunization Notes Care Provider Arnold fletcher 08-06-2018 influenza virus vacc ine, unspecified formulation [facility] Work Phone: 06-11-2018 tetanus toxoid, redu lui diphtheria toxoid, and acellular pertussis vaccine, adsorbed [facility] 09-07-2011 influenza virus vacc ine, unspecified formulation [facility] Work Phone: 11-26-2010 influenza virus vacc ine, unspecified formulation [facility] Work Phone: 09-08-2009 influenza virus vacc ine, unspecified formulation [facility] Work Phone: 09-26-2008 influenza virus vacc ine, unspecified formulation [facility] Work Phone: 05-05-2008 tetanus toxoid, redu lui diphtheria toxoid, and acellular pertussis vaccine, adsorbed Gricelda [facility]ol[facility] Work Phone: 02-12-2008 pneumococcal polysaccharide vaccine, 23 valent Gricelda Jolley [facility] Work Phone: 09-13-2007 influenza virus vacc ine, whole virus Gricelda Jolley [facility] Work Phone: Payers Date Payer Category Payer Self-pay [id number] 2024 Unknown [id number] 2021 Medicare [id number] 2021 Medicare (Managed Care) [employer] [id number] 2021 Medicare [id number] 2018 Medicare [id number] 2018 Medicaid [facility] MEDICAID [id number] 2018-Present [phone] [address] [place] [address] Medicaid [id number] 2018 Medicaid [id number] 2017 Unknown [id number] 2017 Unknown [id number] Unknown [id number] Unknown [id number] Social History Date Type Detail Facility Start: 08-08-2022 End: 08-12-2024 Tobacco smoking status NHIS Ex-smoker [facility] Start: 12-04-1990 End: 12-04-2006 History of tobacco use Current smoker [facility] Start: 12-04-1990 End: 12-04-2006 History of tobacco use Cigarette Smoker [facility] Start: 02-01-2022 End: 05-09-2025 Alcohol intake Current non-drinker of alcohol (finding) [facility] Start: 07-23-2020 End: 01-19-2023 History SDOH Alcohol Frequency 1 [facility] Start: 07-21-2020 End: 07-23-2020 History SDOH Alcohol Std Drinks 98 [facility] Start: 10-16-2020 End: 01-19-2023 History SDOH Social Connections Phone 5 [facility] Start: 10-16-2020 End: 01-19-2023 History SDOH Social Connections Cheondoism 3 [facility] Start: 10-16-2020 End: 01-19-2023 History SDOH Physical Activity DPW 0 [facility] Start: 10-16-2020 End: 01-19-2023 History SDOH Stress 2 [facility] Start: 01-14-2020 Education 12 [facility] Start: 1975 Sex Assigned At Female [facility] Start: 08-25-2021 End: 10-13-2022 Exposure to SARS-CoV-2 (event) Not sure [facility] Start: 03-30-2021 End: 01-19-2024 Tobacco smoking status NHIS Unknown if ever smoked [facility] Start: 07-14-2019 None [facility] Start: 07-14-2019 With Family [facility] Start: 04-29-2020 Non-smoker [facility] Start: 02-28-2022 End: 03-10-2022 Exposure to SARS-CoV-2 (event) Unable to assess [facility] Start: 08-08-2022 End: 08-12-2024 Cigarettes smoked current (pack per day) - Reported 1 [facility] Start: 08-08-2022 End: 08-12-2024 Tobacco use and exposure Smokeless tobacco non-user [facility] Start: 01-19-2023 End: 08-12-2024 Social connection and isolation panel [facility] Do you belong to any clubs or organizations such as temple groups, unions, fraternal or athletic groups, or school groups? Yes [facility] Are you now , , , , never or living with a partner? [facility] How often to you hav e a drink containing alcohol? Never [facility] Administration How many standard dr inks containing alcohol do you have on a typical day? Patient does not drink [facility] Do you feel stress - tense, restless, nervous, or anxious, or unable to sleep at night because your mind is troubled all the time - these days [OSQ] Not at all [facility] (I/We) worried whe[place]anna er (my/our) food would run out before (I/we) got money to buy more. DK or Refused [facility] In the past 12 month s, was there a time when you were not able to pay the mortgage or rent on time? No [facility] Start: 01-26-2021 Gender identity Identifies as female gender (finding) [facility] Start: 04-23-2021 Sexual orientation Heterosexual (finding) [facility] How hard is it for y ou to pay for the very basics like food, housing, medical care, and heating Somewhat hard [facility] Do you feel stress - tense, restless, nervous, or anxious, or unable to sleep at night because your mind is troubled all the time - these days [OSQ] Only a little [facility] (I/We) worried johnna er (my/our) food would run out before (I/we) got money to buy more. Sometimes true [facility] Medical Equipment Procedure Code Equipment Code Equipment Original Text Equipment Identifier Dates [id number], [id number], [id number], [id number], [id number], [id number], [id number], [id number], [id number], [id number], [id number], [id number], [id number], [id number], [id number], [id number], [id number], [id number] Start: 04-13-2021 End: 04-14-2025 Comment on above: TEST BLOOD SUGAR TWI CE DAILY (TYPE 2 DIABETES) INJECT ONE TIME BENTLEY Y. E11.65 INJECT ONE TIME BENTLEY Y Use as instructed E1 1.9 Use as instructed to check blood glucose up to 2 times daily. E11.9 ACCU CHEK FASTCLIX L ANCET *DEVICE* use to check blood glucose up to 2 times per day as instructed. E11.9 Use with blood gluco se test three times a day. E11.9 Functional Status Date Assessment Result Facility 12-12-2024 Are you deaf, or do you have serious difficulty hearing No 12/12/2024 9:28 AM Aspen Kimbrough, GUILLERMINA No [facility] 12-12-2024 Are you blind, or do you have serious difficulty seeing, even when wearing glasses No 12/12/2024 9:28 AM Aspen Kimbrough, GUILLERMINA No [facility] 12-12-2024 Do you have serious difficulty walking or climbing stairs No 12/12/2024 9:28 AM Aspen Kimbrough, GUILLERMINA No [facility] 12-12-2024 Do you have difficul ty dressing or bathing No 12/12/2024 9:28 AM Aspen Kimbrough, GUILLERMINA No [facility] 12-12-2024 Because of a physica l, mental, or emotional condition, do you have difficulty doing errands alone such as visiting a physician's office or shopping No 12/12/2024 9:28 AM Aspen Kimbrough RN No [facility] Mental Status Date Assessment Result Facility 12-12-2024 Because of a physica l, mental, or emotional condition, do you have serious difficulty concentrating, remembering, or making decisions No 12/12/2024 9:28 AM Aspen Kimbrough RN No [facility] Clinical Notes 06-25-2021 to 05-14-2025 Telephone Encounter - Alayna Juarez - 05/14/2025 10:38 AM EDTTelephone Encounter - Alayna Juarez - 05/14/2025 10:38 AM MEGHANATYuri Pitt PT - 05/02/2025 9:25 AM EDTPatient Instructions Note Date & Type Note Facility 05-14-2025 Telephone encounter Note May 14, 2025 10:39 AM [facility] form received. Indexed to chart. . Form completed and submitted to provider for review/signature. Alayna Juarez [facility] 05-14-2025 Miscellaneous Notes May 14, 2025 10:39 AM [facility] form received. Indexed to chart. . Form completed and submitted to provider for review/signature. [facility] documented in this encounter [facility] 05-02-2025 Note HNO ID: [id number] Author: YURI PITT PT Service: ? Author Type: Physical Therapist Type: Progress Notes Filed: 05/02/2025 09:27 Note Text: Episode Visit Count: 4 Therapist That Will Accept/Oversee The Plan Of Care: Yuri Pitt Start of Care Date: 04/02/25 Onset Date: 11/13/24 Plan of Care Certification Date: 04/02/25 Next Certification Due Date: 06/11/25 REHABILITATION AND SPORTS THERAPY PHYSICAL THERAPY DISCONTINUANCE OF CARE PLAN OF CARE UPDATE: Assessment: Sid F Shelbie is discontinued from Physical Therapy services due to maximal benefit.. Patient was seen for 4 visits from Start of Care Date: 04/02/25 to 05/02/2025 and treatment included: Therapeutic exercise, Manual therapy, and Self-snf management. Goals updated on 05/01/2025. Goals for Episode of Care: established 04/02/25 Gage in home exercise program. Met Patient will decrease pain rating by 2 points to meet minimal clinical important difference for numeric pain rating scale. Not met Patient will demonstrate increase in R periscapular and L lateral hip/glute strength to 4+/5 during manual muscle testing in order to improve function for basic self-care tasks, home management tasks, light functional tasks, and moderate to heavy functional tasks. Met Perform rising from a chair, standing, walking with decreased report of symptoms/pain in 6-8 weeks. Not met SUBJECTIVE: Patient has started dropping things with the R arm, which was not happening a month ago. Traction has felt good in here, but she does not even get a hours worth of relief after leaving. RUE and neck/shoulder same symptoms, but functionally she is back tracking. L sciatica is continuing. Sometimes a flexion stretch can help, but mostly bathing with epsom salt, TENS, and heating pad help the most. Pain: Pain Pain Level: 7 Pain Location: Arm - Right, Shoulder - Right, Neck - Right, Low Back/Lumbar Spine - Left, Buttocks - Left, Leg - Left Description: Numbness, Radiating Frequency: Continuous PROMIS Scales 05/01/2025 04/14/2025 04/01/2025 Higher is Better Phys Func - T Score 40 (mild dysfunction) Phys Func - Percentile 16 Self-Eff Symptom - T Score Incomplete 51 (Average) Self-Eff Symptom - Percentile 54 03/23/2025 10/21/2024 06/07/2024 Lower is Better Pain Interference - T Score 63 (moderate) 58 (mild) 72 (severe) Pain Interference - Percentile 10 21 1 T-scores: mean of general population = 50. 5 points is clinically meaningfully difference Percentiles provide an indication of how the patient's score ranks in relation to the general population. Higher percentile rankings indicate better function/quality of life. 50th percentile is the average of the general population and indicates half of respondents had a worse score. OBJECTIVE MEASURES WITH LEVEL OF FUNCTION: LE PROM R LE PROM: WNL L LE PROM : Moderate limitations in flexion, ER, IR UE and Cervical Strength R UE Strength: 4+ to 5/5 L UE Strength: 4+ to 5/5 LE Strength R LE Strength: 4 to 4+/5 L LE Strength: 4 to 4+/5 TREATMENT: Therapeutic Exercise: 1: Reviewed HEP for propper follow through and performance 2: Objective measures obtained Skilled Intervention: Patient was educated in proper exercise technique and purpose for exercises. Skilled judgment was used in selection of appropriate interventions. Patient education as noted. Manual Therapy: 1: Manual cervical traction x15 min total Skilled Intervention: Manual skills to improve joint mobility, ROM, and decrease pain. Utilized anatomy knowledge of the clinician, and assessment of patient's response to intervention. Billing Therapeutic Exercise Treatment Minutes: 16 Manual TherapyTreatment Minutes: 15 Skilled Treatment Time Minutes (timed and untimed codes): 31 Total Session Time (minutes): 31 Session Start Time : 1549 Session Stop Time : 1620 Yuri Pitt PT [facility] 05-02-2025 History of Present illness Narrative Images from the original note were not included. Episode Visit Count: 4 Therapist That Will Accept/Oversee The Plan Of Care: Yuri Pitt Start of Care Date: 04/02/25 Onset Date: 11/13/24 Plan of Care Certification Date: 04/02/25 Next Certification Due Date: 06/11/25 REHABILITATION AND SPORTS THERAPY PHYSICAL THERAPY DISCONTINUANCE OF CARE PLAN OF CARE UPDATE: Assessment: Sid Lezaam is discontinued from Physical Therapy services due to maximal benefit.. Patient was seen for 4 visits from Start of Care Date: 04/02/25 to 05/02/2025 and treatment included: Therapeutic exercise, Manual therapy, and Self-snf management. Goals updated on 05/01/2025. Goals for Episode of Care: established 04/02/25 Gage in home exercise program. Met Patient will decrease pain rating by 2 points to meet minimal clinical important difference for numeric pain rating scale. Not met Patient will demonstrate increase in R periscapular and L lateral hip/glute strength to 4+/5 during manual muscle testing in order to improve function for basic self-care tasks, home management tasks, light functional tasks, and moderate to heavy functional tasks. Met Perform rising from a chair, standing, walking with decreased report of symptoms/pain in 6-8 weeks. Not met SUBJECTIVE: Patient has started dropping things with the R arm, which was not happening a month ago. Traction has felt good in here, but she does not even get a hours worth of relief after leaving. RUE and neck/shoulder same symptoms, but functionally she is back tracking. L sciatica is continuing. Sometimes a flexion stretch can help, but mostly bathing with epsom salt, TENS, and heating pad help the most. Pain: Pain Pain Level: 7 Pain Location: Arm - Right, Shoulder - Right, Neck - Right, Low Back/Lumbar Spine - Left, Buttocks - Left, Leg - Left Description: Numbness, Radiating Frequency: Continuous PROMIS Scales 05/01/2025 04/14/2025 04/01/2025 Higher is Better Phys Func - T Score 40 (mild dysfunction) Phys Func - Percentile 16 Self-Eff Symptom - T Score Incomplete 51 (Average) Self-Eff Symptom - Percentile 54 03/23/2025 10/21/2024 06/07/2024 Lower is Better Pain Interference - T Score 63 (moderate) 58 (mild) 72 (severe) Pain Interference - Percentile 10 21 1 T-scores: mean of general population = 50. 5 points is clinically meaningfully difference Percentiles provide an indication of how the patient's score ranks in relation to the general population. Higher percentile rankings indicate better function/quality of life. 50th percentile is the average of the general population and indicates half of respondents had a worse score. OBJECTIVE MEASURES WITH LEVEL OF FUNCTION: LE PROM R LE PROM: WNL L LE PROM : Moderate limitations in flexion, ER, IR UE and Cervical Strength R UE Strength: 4+ to 5/5 L UE Strength: 4+ to 5/5 LE Strength R LE Strength: 4 to 4+/5 L LE Strength: 4 to 4+/5 TREATMENT: Therapeutic Exercise: 1: Reviewed HEP for propper follow through and performance 2: Objective measures obtained Skilled Intervention: Patient was educated in proper exercise technique and purpose for exercises. Skilled judgment was used in selection of appropriate interventions. Patient education as noted. Manual Therapy: 1: Manual cervical traction x15 min total Skilled Intervention: Manual skills to improve joint mobility, ROM, and decrease pain. Utilized anatomy knowledge of the clinician, and assessment of patient's response to intervention. Billing Therapeutic Exercise Treatment Minutes: 16 Manual TherapyTreatment Minutes: 15 Skilled Treatment Time Minutes (timed and untimed codes): 31 Total Session Time (minutes): 31 Session Start Time : 1549 Session Stop Time : 1620 Yuri Pitt PT documented in this encounter [facility] 04-30-2025 Note HNO ID: [id number] Author: ?, ?, ? Service: ? Author Type: ? Type: Progress Notes Filed: 04/30/2025 13:19 Note Text: POPULATION HEALTH NAVIGATION OUTREACH Action/FYI Patient outreach for hcc gaps; A1C, MAMMOGRAM, JOELLE. Pt declined March 2025. Reason for Outreach Care Gap/HCC or Scheduling Wellness Visits Care Gaps due: Breast Cancer Screening Diabetic Eye Exam HBA1C Patient Contacted: Unable or unnecessary to reach patient: HCC related Navigation Signature: Yanelis Sauer April 30, 2025 1:17 PM [facility] 04-30-2025 History of Present illness Narrative POPULATION HEALTH NAVIGATION OUTREACH Action/FYI Patient outreach for hcc gaps; A1C, MAMMOGRAM, JOELLE. Pt declined March 2025. Reason for Outreach Care Gap/HCC or Scheduling Wellness Visits Care Gaps due: Breast Cancer Screening Diabetic Eye Exam HBA1C Patient Contacted: Unable or unnecessary to reach patient: HCC related Navigation Signature: Yanelis Sauer April 30, 2025 1:17 PM documented in this encounter [facility] 04-30-2025 Note Patient Outreach (EVERETT TNAV) SID LEZAMA ([id number]) 1975 F Date Time Provider Department 04/30/25 GRAYSON PHAN During your visit today, we recorded the following information about you: Yanelis Duong 04/30/2025 1:19 PM Signed POPULATION HEALTH NAVIGATION OUTREACH Action/FYI Patient outreach for hcc gaps; A1C, MAMMOGRAM, JOELLE. Pt declined March 2025. Reason for Outreach Care Gap/HCC or Scheduling Wellness Visits Care Gaps due: Breast Cancer Screening Diabetic Eye Exam HBA1C Patient Contacted: Unable or unnecessary to reach patient: HCC related Navigation Signature: Yanelis Yost Pss April 30, 2025 1:17 PM Allergies As of Date: 04/30/2025 Noted Allergy Reaction AZITHROMYCIN 03/18/2021 16 - Unknown Comments: thinks a rash DILAUDID (HYDROMORPHONE (BULK)) 08/07/2006 7 - Swelling [...] 7 - Swelling Comments: migraines Date Reviewed: 03/24/2025 Reviewed by: Justine Bautista MA - Fully Assessed Reason for Visit: Population Health Navigation Outreach [3910] Cmt: Cristopher Carbajal Prescriptions as of 04/30/2025 - methotrexate sodium 25 mg/mL soln Inject 15mg (0.6mL) subcutaneously once weekly - Syringe with Needle, Disp, (BD TUBERCULIN SYRINGE) 1 mL 25 gauge x 5/8 Use once weekly with methotrexate injections - folic acid 1 mg tablet Take 1 tablet by mouth once daily. - Insulin Lynch, Disposable, (DROPLET PEN NEEDLE) 32 gauge x 5/32 USE TO INJECT INSULIN UP TO 8 TIMES PER DAY - ustekinumab (STELARA) 45 mg/0.5 mL syringe Inject 45 mg (1 syringe) subcutaneously every 8 weeks - naproxen sodium (ALEVE ORAL) Take by mouth. Once daily - insulin lispro (HUMALOG KWIKPEN) 100 unit/mL Inject 2 Units subcutaneously three times a day before meals. Plus sliding scale #2 If blood sugar is: Additional units < 150 0 151-200 2 201-250 4 251-300 6 301-350 8 > 350 18 units Max daily dose - insulin glargine (LANTUS SOLOSTAR U-100 INSULIN) 100 unit/mL (3 mL) INJECT 40 UNITS UNDER THE SKIN EVERY evening - Blood-Glucose Sensor (FREESTYLE GIANFRANCO 3 PLUS SENSOR) matilda Apply new sensor every fifteen (15) days to upper arm. - potassium citrate ER (UROCIT-K) 10 mEq (1,080 mg) Take 1 tablet by mouth two times a day. - pantoprazole DR (PROTONIX) 20 mg tablet Take 1 tablet by mouth daily before breakfast. Take on empty stomach, 1/2 hr before meal. - blood sugar diagnostic (ACCU-CHEK GUIDE TEST STRIPS) test strip USE WITH BLOOD GLUCOSE TEST THREE TIMES A DAY. - Lancets (ACCU-CHEK FASTCLIX LANCET DRUM) Use as instructed to check blood glucose up to 2 times daily. E11.9 - Lancing Device with Lancets ACCU CHEK FASTCLIX LANCET *DEVICE* use to check blood glucose up to 2 times per day as instructed. E11.9 - GVOKE PFS 1-PACK SYRINGE 1 mg/0.2 mL syrg INJECT 0.2 ML UNDER THE SKIN NEEDED. - clobetasol (TEMOVATE) 0.05 % ointment Apply to affected area two times a day. Face. Feet. Two weeks on and two weeks off, per [facility]. - fexofenadine HCl (LELA ORAL) Take by mouth. - levonorgestrel (MIRENA) 20 mcg/24 hours (8 yrs) 52 mg IUD 1 Each by INTRAUTERINE route as directed. - oxyCODONE-acetaminophen (PERCOCET) 5-325 mg tablet TAKE 1 TABLET BY MOUTH 3 TIMES A DAY NEEDED FOR 28 DAYS - vits62/FA/om3/dha/epa ( GUMMY ORAL) Take 2 Doses by mouth once daily. - Blood-Glucose Meter (ACCU-CHEK DIANNE) Test blood sugar(s) 2 times daily. Dx: Type 2 DM - Controlled E11.9 Insulin: No, Accu-check brand covered by insurance - Ascorbic Acid 500 mg chew Take 1,000 mg by mouth once daily. With rosehips - elderberry fruit (ELDERBERRY ORAL) Take by mouth. - COMPOUNDED PRESCRIPTION 1. V44.2 Ileostomy status (HCC) (primary diagnosis) 2. 555.1 Regional enteritis of large intestine (HCC) Ileostomy Supplies. 1. Pouches, 2. Planges, 3. Felipe seals, 4. Stoma adhesive, 5. Stoma powder, 6. Skin preps, 7. Adhesive remover wipes. Dispense 1 year supplies. - tiZANidine (ZANAFLEX) 4 mg tablet Take by mouth. . Takes 1 tablet at bedtime. Problem List As Of Date 04/30/2025 Noted Resolved REG ENTERITIS, LG INTEST [K50.10] 08/07/2006 Retention of urine, unspecified [R33.9] 01/01/2007 11/27/2018 Mixed hyperlipidemia [E78.2] 01/10/2007 Anemia, unspecified [D64.9] 01/10/2007 03/08/2012 Nonspecific abnormal results of liver function *08/24/2007 04/19/2011 Onychia and paronychia of toe [L03.039] 09/26/2007 02/18/2013 ILEOSTOMY STATUS [Z93.2] 09/28/2007 IMPAIRED GLUCOSE JUNE RAISA (more content not included)... [facility] 04-25-2025 Note HNO ID: [id number] Author: YURI PITT, PT Service: ? Author Type: Physical Therapist Type: Progress Notes Filed: 04/25/2025 15:27 Note Text: Episode Visit Count: 3 Therapist That Will Accept/Oversee The Plan Of Care: Yuri Pitt Start of Care Date: 04/02/25 Onset Date: 11/13/24 Plan of Care Certification Date: 04/02/25 Next Certification Due Date: 06/11/25 REHABILITATION AND SPORTS THERAPY PHYSICAL THERAPY TREATMENT NOTE ASSESSMENT: Sid Lezama tolerated the session with decreased symptoms. She demonstrated difficulty with R sided neck pain with radicular symptoms into the pinky. The patient will continue to benefit from ongoing skilled physical therapy to progress toward set goals. PLAN FOR NEXT VISIT: Assess carry over of HEP additions and changes based on symptoms, progress per tolerance SUBJECTIVE: Patient has neck pain and numbness into the R arm and hand favoring the pinky side. Pain: Pain Pain Location: Arm - Right, Shoulder - Right, Neck - Right Description: Numbness OBJECTIVE MEASURES WITH LEVEL OF FUNCTION: TREATMENT: Therapeutic Exercise: 1: *Upper trap stretch 3x30 sec 2: *SKC 3x30 sec Skilled Intervention: Patient was educated in proper exercise technique and purpose for exercises. Skilled judgment was used in selection of appropriate interventions. Provided written instruction for home exercise program to facilitate proper performance and compliance. Correct performance of therapeutic exercises was facilitated with verbal, visual, and tactile cuing. Manual Therapy: 1: Manual cervical traction x20 min total 2: STM with push to tolerance to R paraspinals and upper trap Skilled Intervention: Manual skills to improve joint mobility, ROM, and decrease pain. Utilized anatomy knowledge of the clinician, and assessment of patient's response to intervention. Billing Therapeutic Exercise Treatment Minutes: 5 Manual TherapyTreatment Minutes: 33 Skilled Treatment Time Minutes (timed and untimed codes): 38 Total Session Time (minutes): 38 Session Start Time : 1633 Session Stop Time : 1711 Yuri Pitt PT [facility] 04-25-2025 History of Present illness Narrative Episode Visit Count: 3 Therapist That Will Accept/Oversee The Plan Of Care: Yuri Pitt Start of Care Date: 04/02/25 Onset Date: 11/13/24 Plan of Care Certification Date: 04/02/25 Next Certification Due Date: 06/11/25 REHABILITATION AND SPORTS THERAPY PHYSICAL THERAPY TREATMENT NOTE ASSESSMENT: Sid Lezama tolerated the session with decreased symptoms. She demonstrated difficulty with R sided neck pain with radicular symptoms into the pinky. The patient will continue to benefit from ongoing skilled physical therapy to progress toward set goals. PLAN FOR NEXT VISIT: Assess carry over of HEP additions and changes based on symptoms, progress per tolerance SUBJECTIVE: Patient has neck pain and numbness into the R arm and hand favoring the pinky side. Pain: Pain Pain Location: Arm - Right, Shoulder - Right, Neck - Right Description: Numbness OBJECTIVE MEASURES WITH LEVEL OF FUNCTION: TREATMENT: Therapeutic Exercise: 1: *Upper trap stretch 3x30 sec 2: *SKC 3x30 sec Skilled Intervention: Patient was educated in proper exercise technique and purpose for exercises. Skilled judgment was used in selection of appropriate interventions. Provided written instruction for home exercise program to facilitate proper performance and compliance. Correct performance of therapeutic exercises was facilitated with verbal, visual, and tactile cuing. Manual Therapy: 1: Manual cervical traction x20 min total 2: STM with push to tolerance to R paraspinals and upper trap Skilled Intervention: Manual skills to improve joint mobility, ROM, and decrease pain. Utilized anatomy knowledge of the clinician, and assessment of patient's response to intervention. Billing Therapeutic Exercise Treatment Minutes: 5 Manual TherapyTreatment Minutes: 33 Skilled Treatment Time Minutes (timed and untimed codes): 38 Total Session Time (minutes): 38 Session Start Time : 1633 Session Stop Time : 1711 Yuri Pitt PT Program_ID:[id number] Access Code: [email or web address] URL: [email or web address] Date: 04-24-2025 Prepared By: Yuri Pitt Program Notes Exercises - Sidelying Hip Abduction - 1 x daily - 7 x weekly - 3 sets - 10 reps - Clamshell - 1 x daily - 7 x weekly - 3 sets - 10 reps - Quadruped Pelvic Floor Contraction with Opposite Arm and Leg Lift - 1 x daily - 7 x weekly - 3 sets - 10 reps - Prone Single Arm Shoulder Y - 1 x daily - 7 x weekly - 3 sets - 10 reps - Prone Shoulder Horizontal Abduction - 1 x daily - 7 x weekly - 3 sets - 10 reps - Prone Shoulder Extension - Single Arm - 1 x daily - 7 x weekly - 3 sets - 10 reps - Bent Knee Fallouts - 1 x daily - 7 x weekly - 3 sets - 10 reps - Seated Gentle Upper Trapezius Stretch - 3 x daily - 7 x weekly - 1 sets - 3 reps - Hooklying Single Knee to Chest Stretch - 3 x daily - 7 x weekly - 1 sets - 3 reps documented in this encounter [facility] 04-23-2025 Telephone encounter Note Pt has 4 refills at pharmacy; advised to contact pharmacy for refills [facility] 04-23-2025 Miscellaneous Notes Pt has 4 refills at pharmacy; advised to contact pharmacy for refills documented in this encounter [facility] 04-22-2025 Telephone encounter Note MTX SC sent to [facility] pharmacy. Thanks! [facility] 04-22-2025 Miscellaneous Notes MTX SC sent to [facility] pharmacy. Thanks! Spoke with patient advised [facility]( verified thru pharmacy) is not able to fill MTX, needs to be sent to [facility]-agrees with plan. Advised once she receives the medication she may request a teaching visit for the injection visit -patient declines at this time. Patient also requests Dr. Gold be notified she received a Kenalog injection last -Right hand and neck have cleared and the pain has significantly decreased. Annemarie Jordan RN documented in this encounter [facility] 04-22-2025 Telephone encounter Note Spoke with patient advised [facility]( verified thru pharmacy) is not able to fill MTX, needs to be sent to [facility]-agrees with plan. Advised once she receives the medication she may request a teaching visit for the injection visit -patient declines at this time. Patient also requests Dr. Gold be notified she received a Kenalog injection last -Right hand and neck have cleared and the pain has significantly decreased. Annemarie Jordan RN [facility] 04-17-2025 History of Present illness Narrative [facility] Refill Assessment Medication(s): Stelara Patient's current medication list and adherence status to current therapy were reviewed by [facility] clinical pharmacist to identify any new drug interactions or non-compliance to therapy. Therapy continues to be appropriate for disease, patient response, and medical condition. Verification of therapeutic benefit and effectiveness with current therapy was completed. Adverse events, barriers in adherence, and side effects were assessed and addressed if applicable. Will proceed with refill with no changes in therapy - patient progressing towards achieving therapeutic goals based on medication-specific laboratory parameters, disease state markers and outcomes. Office/provider notes have been reviewed prior to dispensing the medication. Feeder Operator Assessment Patient confirmed: Yes Med/dose confirmed: Yes Supplies needed: No supplies needed Missed doses: No Estimated days supply on hand: 0 Copay amount: 0 Payment confirmed: Yes Delivery method: FedEx Signature required: No Delivery address: [address] [place], [place] [id number] Delivery date: 04/18/25 Questions or concerns for the pharmacist?: No Did you have any side effects believed to be related to this medication, that resulted in hospitalization?: No Current Outpatient Medications on File Prior to Visit Medication Sig Insulin Lynch, Disposable, (DROPLET PEN NEEDLE) 32 gauge x 5/32 USE TO INJECT INSULIN UP TO 8 TIMES PER DAY ustekinumab (STELARA) 45 mg/0.5 mL syringe Inject 45 mg (1 syringe) subcutaneously every 8 weeks naproxen sodium (ALEVE ORAL) Take by mouth. Once daily insulin lispro (HUMALOG KWIKPEN) 100 unit/mL Inject 2 Units subcutaneously three times a day before meals. Plus sliding scale #2 If blood sugar is: Additional units < 150 0 151-200 2 201-250 4 251-300 6 301-350 8 > 350 18 units Max daily dose insulin glargine (LANTUS SOLOSTAR U-100 INSULIN) 100 unit/mL (3 mL) INJECT 40 UNITS UNDER THE SKIN EVERY evening Blood-Glucose Sensor (FREESTYLE GIANFRANCO 3 PLUS SENSOR) matilda Apply new sensor every fifteen (15) days to upper arm. potassium citrate ER (UROCIT-K) 10 mEq (1,080 mg) Take 1 tablet by mouth two times a day. pantoprazole DR (PROTONIX) 20 mg tablet Take 1 tablet by mouth daily before breakfast. Take on empty stomach, 1/2 hr before meal. blood sugar diagnostic (ACCU-CHEK GUIDE TEST STRIPS) test strip USE WITH BLOOD GLUCOSE TEST THREE TIMES A DAY. Lancets (ACCU-CHEK FASTCLIX LANCET DRUM) Use as instructed to check blood glucose up to 2 times daily. E11.9 Lancing Device with Lancets ACCU CHEK FASTCLIX LANCET *DEVICE* use to check blood glucose up to 2 times per day as instructed. E11.9 GVOKE PFS 1-PACK SYRINGE 1 mg/0.2 mL syrg INJECT 0.2 ML UNDER THE SKIN NEEDED. clobetasol (TEMOVATE) 0.05 % ointment Apply to affected area two times a day. Face. Feet. Two weeks on and two weeks off, per [facility]. fexofenadine HCl (LELA ORAL) Take by mouth. levonorgestrel (MIRENA) 20 mcg/24 hours (8 yrs) 52 mg IUD 1 Each by INTRAUTERINE route as directed. oxyCODONE-acetaminophen (PERCOCET) 5-325 mg tablet TAKE 1 TABLET BY MOUTH 3 TIMES A DAY NEEDED FOR 28 DAYS (Patient taking differently: Every 8 hours per patient) vits62/FA/om3/dha/epa ( GUMMY ORAL) Take 2 Doses by mouth once daily. Blood-Glucose Meter (ACCU-CHEK DIANNE) Test blood sugar(s) 2 times daily. Dx: Type 2 DM - Controlled E11.9 Insulin: No, Accu-check brand covered by insurance Ascorbic Acid 500 mg chew Take 1,000 mg by mouth once daily. With rosehips elderberry fruit (ELDERBERRY ORAL) Take by mouth. COMPOUNDED PRESCRIPTION 1. V44.2 Ileostomy status ([facility]) (primary diagnosis) 2. 555.1 Regional enteritis of large intestine ([facility]) Ileostomy Supplies. 1. Pouches, 2. Planges, 3. Felipe seals, 4. Stoma adhesive, 5. Stoma powder, 6. Skin preps, 7. Adhesive remover wipes. Dispense 1 year supplies. tiZANidine (ZANAFLEX) 4 mg tablet Take by mouth. . Takes 1 tablet at bedtime. (Patient taking differently: Take by mouth. . Takes 2 tablet at bedtime.) No current facility-administered medications on file prior to visit. [facility] RX SPECIALTY CLINICAL ASSESSMENT - INFLAMMATORY CONDITIONS V6: Assessment to use: Refill Date of influenza vaccination reminder: 09/02/2024 Date of most recent vaccination assessment: 09/02/2024 Treatment Plan Information: Seronegative spondyloarthropathy Crohn's disease with complication, unspecified gastrointestinal tract location (HCC) Osteoarthritis of spine, unspecified spinal osteoarthritis complication status, unspecified spinal region Stelara - Inject 45 mg (1 syringe) subcutaneously at weeks 0 and 4 followed by every 12 weeks thereafter. Est. Tx Plan Start Date: 12/23/2022 Estimated Start Date Info: No information available Est. Estimated Treatment Duration: Until loss of efficacy and/or no longer tolerated. Stefanie Lisa documented in this encounter [facility] 04-17-2025 Note HNO ID: [id number] Author: ?, ?, ? Service: ? Author Type: ? Type: Progress Notes Filed: 04/17/2025 10:57 Note Text: [facility] Specialty Refill Assessment Medication(s): Stelara Patient's current medication list and adherence status to current therapy were reviewed by Specialty Pharmacy clinical pharmacist to identify any new drug interactions or non-compliance to therapy. Therapy continues to be appropriate for disease, patient response, and medical condition. Verification of therapeutic benefit and effectiveness with current therapy was completed. Adverse events, barriers in adherence, and side effects were assessed and addressed if applicable. Will proceed with refill with no changes in therapy - patient progressing towards achieving therapeutic goals based on medication-specific laboratory parameters, disease state markers and outcomes. Office/provider notes have been reviewed prior to dispensing the medication. Feeder Operator Assessment Patient confirmed: Yes Med/dose confirmed: Yes Supplies needed: No supplies needed Missed doses: No Estimated days supply on hand: 0 Copay amount: 0 Payment confirmed: Yes Delivery method: FedEx Signature required: No Delivery address: [address] [facility] [id number] Delivery date: 04/18/25 Questions or concerns for the pharmacist?: No Did you have any side effects believed to be related to this medication, that resulted in hospitalization?: No Current Outpatient Medications on File Prior to Visit Medication Sig Insulin Lynch, Disposable, (DROPLET PEN NEEDLE) 32 gauge x USE TO INJECT INSULIN UP TO 8 TIMES PER DAY ustekinumab (STELARA) 45 mg/0.5 mL syringe Inject 45 mg (1 syringe) subcutaneously every 8 weeks naproxen sodium (ALEVE ORAL) Take by mouth. Once daily insulin lispro (HUMALOG KWIKPEN) 100 unit/mL Inject 2 Units subcutaneously three times a day before meals. Plus sliding scale #2 If blood sugar is: Additional units < 150 0 151-200 2 201-250 4 251-300 6 301-350 8 > 350 18 units Max daily dose insulin glargine (LANTUS SOLOSTAR U-100 INSULIN) 100 unit/mL (3 mL) INJECT 40 UNITS UNDER THE SKIN EVERY evening Blood-Glucose Sensor (FREESTYLE GIANFRANCO 3 PLUS SENSOR) matilda Apply new sensor every fifteen (15) days to upper arm. potassium citrate ER (UROCIT-K) 10 mEq (1,080 mg) Take 1 tablet by mouth two times a day. pantoprazole DR (PROTONIX) 20 mg tablet Take 1 tablet by mouth daily before breakfast. Take on empty stomach, 1/2 hr before meal. blood sugar diagnostic (ACCU-CHEK GUIDE TEST STRIPS) test strip USE WITH BLOOD GLUCOSE TEST THREE TIMES A DAY. Lancets (ACCU-CHEK FASTCLIX LANCET DRUM) Use as instructed to check blood glucose up to 2 times daily. E11.9 Lancing Device with Lancets ACCU CHEK FASTCLIX LANCET *DEVICE* use to check blood glucose up to 2 times per day as instructed. E11.9 GVOKE PFS 1-PACK SYRINGE 1 mg/0.2 mL syrg INJECT 0.2 ML UNDER THE SKIN NEEDED. clobetasol (TEMOVATE) 0.05 % ointment Apply to affected area two times a day. Face. Feet. Two weeks on and two weeks off, per [facility]. fexofenadine HCl (LELA ORAL) Take by mouth. levonorgestrel (MIRENA) 20 mcg/24 hours (8 yrs) 52 mg IUD 1 Each by INTRAUTERINE route as directed. oxyCODONE-acetaminophen (PERCOCET) 5-325 mg tablet TAKE 1 TABLET BY MOUTH 3 TIMES A DAY NEEDED FOR 28 DAYS (Patient taking differently: Every 8 hours per patient) vits62/FA/om3/dha/epa ( GUMMY ORAL) Take 2 Doses by mouth once daily. Blood-Glucose Meter (ACCU-CHEK DIANNE) Test blood sugar(s) 2 times daily. Dx: Type 2 DM - Controlled E11.9 Insulin: No, Accu-check brand covered by insurance Ascorbic Acid 500 mg chew Take 1,000 mg by mouth once daily. With rosehips elderberry fruit (ELDERBERRY ORAL) Take by mouth. COMPOUNDED PRESCRIPTION 1. V44.2 Ileostomy status (HCC) (primary diagnosis) 2. 555.1 Regional enteritis of large intestine (HCC) Ileostomy Supplies. 1. Pouches, 2. Planges, 3. Felipe seals, 4. Stoma adhesive, 5. Stoma powder, 6. Skin preps, 7. Adhesive remover wipes. Dispense 1 year supplies. tiZANidine (ZANAFLEX) 4 mg tablet Take by mouth. . Takes 1 tablet at bedtime. (Patient taking differently: Take by mouth. . Takes 2 tablet at bedtime.) No current facility-administered medications on file prior to visit. [facility] RX SPECIALTY CLINICAL ASSESSMENT - INFLAMMATORY CONDITIONS V6: Assessment to use: Refill Date of influenza vaccination reminder: 09/02/2024 Date of most recent vaccination assessment: 09/02/2024 Treatment Plan Information: Seronegative spondyloarthropathy Crohn's disease with complication, unspecified gastrointestinal tract location (HCC) Osteoarthritis of spine, unspecified spinal osteoarthritis complication status, unspecified spinal region Stelara - Inject 45 mg (1 syringe) subcutaneously at weeks 0 and 4 followed by every 12 weeks thereafter. Est. Tx Plan Start Date: 12/23/2022 Estimated Sta (more content not included)... [facility] 04-15-2025 History of Present illness Narrative Program_ID:[id number] Access Code: [email or web address] URL: [email or web address] Date: 04-15-2025 Prepared By: Yuri Pitt Program Notes Exercises - Sidelying Hip Abduction - 1 x daily - 7 x weekly - 3 sets - 10 reps - Clamshell - 1 x daily - 7 x weekly - 3 sets - 10 reps - Quadruped Pelvic Floor Contraction with Opposite Arm and Leg Lift - 1 x daily - 7 x weekly - 3 sets - 10 reps - Prone Single Arm Shoulder Y - 1 x daily - 7 x weekly - 3 sets - 10 reps - Prone Shoulder Horizontal Abduction - 1 x daily - 7 x weekly - 3 sets - 10 reps - Prone Shoulder Extension - Single Arm - 1 x daily - 7 x weekly - 3 sets - 10 reps - Bent Knee Fallouts - 1 x daily - 7 x weekly - 3 sets - 10 reps Episode Visit Count: 2 Therapist That Will Accept/Oversee The Plan Of Care: Yuri Pitt Start of Care Date: 04/02/25 Onset Date: 11/13/24 Plan of Care Certification Date: 04/02/25 Next Certification Due Date: 06/11/25 Patient Identified by Name and Date of : Yes REHABILITATION AND SPORTS THERAPY PHYSICAL THERAPY TREATMENT NOTE ASSESSMENT: Sid Lezama tolerated the session with expected muscle soreness. She demonstrated good stretch with supine BKFO. Mild discomfort with supine bridge verse L4 band. Fatigued with SL hip exercises after 2 sets. The patient will continue to benefit from ongoing skilled physical therapy to progress toward set goals. PLAN FOR NEXT VISIT: progress HEP and strengthening per tolerance. Lateral hip/glutes, post shoulder/periscapular, and core strengthening main focus SUBJECTIVE: Patient notes life has been crazy and she has not been doing her exercises as consistently. Some of the HEp is uncomfortable. Pain: Pain Pain Level: (Just numb downt he arm) Pain Location: Shoulder - Right Description: Numbness Additional Pain Information : Location 2 Pain Level 2: 0 Pain Location 2: Hip - Left Post Treatment Pain Post Treatment Pain Level: No Change OBJECTIVE MEASURES WITH LEVEL OF FUNCTION: Improve hip ER with BKFO. TREATMENT: Therapeutic Exercise: 1: *SL hip abduction 2x10/side 2: *Clamshells 2x10/side 3: *Bird dogs 2x10/side 4: *Prone I,Y,T 2x10, 2-3 sec holds/ Rside 5: Seated bilat shoulder ER L2 band 2x10 6: seated shoulder horizontal ABD L2 2x10 7: Supine bridge band around thighs L4 band 2x10 8: Supine BKFO 2x10 Skilled Intervention: Patient was educated in proper exercise technique and purpose for exercises. Reviewed and educated patient on additions/changes for home exercise program as above (*). Skilled judgment was used in selection of appropriate interventions. Provided written instruction for home exercise program to facilitate proper performance and compliance. Correct performance of therapeutic exercises was facilitated with verbal and visual cuing. Billing Therapeutic Exercise Treatment Minutes: 39 Skilled Treatment Time Minutes (timed and untimed codes): 39 Total Session Time (minutes): 39 Session Start Time : 733 Session Stop Time : 812 Rich Gonzalez PT, DPT documented in this encounter [facility] 04-15-2025 Note HNO ID: [id number] Author: RICH GONZALEZ PT, DPT Service: ? Author Type: Physical Therapist Type: Progress Notes Filed: 04/15/2025 08:55 Note Text: Episode Visit Count: 2 Therapist That Will Accept/Oversee The Plan Of Care: Yuri Pitt Start of Care Date: 04/02/25 Onset Date: 11/13/24 Plan of Care Certification Date: 04/02/25 Next Certification Due Date: 06/11/25 Patient Identified by Name and Date of : Yes REHABILITATION AND SPORTS THERAPY PHYSICAL THERAPY TREATMENT NOTE ASSESSMENT: Sid Lezama tolerated the session with expected muscle soreness. She demonstrated good stretch with supine BKFO. Mild discomfort with supine bridge verse L4 band. Fatigued with SL hip exercises after 2 sets. The patient will continue to benefit from ongoing skilled physical therapy to progress toward set goals. PLAN FOR NEXT VISIT: progress HEP and strengthening per tolerance. Lateral hip/glutes, post shoulder/periscapular, and core strengthening main focus SUBJECTIVE: Patient notes life has been crazy and she has not been doing her exercises as consistently. Some of the HEp is uncomfortable. Pain: Pain Pain Level: (Just numb downt he arm) Pain Location: Shoulder - Right Description: Numbness Additional Pain Information : Location 2 Pain Level 2: 0 Pain Location 2: Hip - Left Post Treatment Pain Post Treatment Pain Level: No Change OBJECTIVE MEASURES WITH LEVEL OF FUNCTION: Improve hip ER with BKFO. TREATMENT: Therapeutic Exercise: 1: *SL hip abduction 2x10/side 2: *Clamshells 2x10/side 3: *Bird dogs 2x10/side 4: *Prone I,Y,T 2x10, 2-3 sec holds/ Rside 5: Seated bilat shoulder ER L2 band 2x10 6: seated shoulder horizontal ABD L2 2x10 7: Supine bridge band around thighs L4 band 2x10 8: Supine BKFO 2x10 Skilled Intervention: Patient was educated in proper exercise technique and purpose for exercises. Reviewed and educated patient on additions/changes for home exercise program as above (*). Skilled judgment was used in selection of appropriate interventions. Provided written instruction for home exercise program to facilitate proper performance and compliance. Correct performance of therapeutic exercises was facilitated with verbal and visual cuing. Billing Therapeutic Exercise Treatment Minutes: 39 Skilled Treatment Time Minutes (timed and untimed codes): 39 Total Session Time (minutes): 39 Session Start Time : 733 Session Stop Time : 812 Rich Gonzalez, PT, DPT [facility] 04-14-2025 History of Present illness Narrative [facility] received prescription(s) for Stelara- dose increase from Dr. Gold's office. Benefits investigation was conducted, indicating that a prior authorization is required by patient's insurance plan with [employer] medicare. Encounter will be updated once prior authorization has been submitted by [facility]. Shira Matta CPhT, Inflammatory/Allergy [facility] [phone] documented in this encounter [facility] 04-14-2025 Note HNO ID: [id number] Author: ?, ?, ? Service: ? Author Type: ? Type: Progress Notes Filed: 04/16/2025 17:23 Note Text: [facility] 04-14-2025 Note HNO ID: [id number] Author: ?, ?, ? Service: ? Author Type: ? Type: Progress Notes Filed: 04/14/2025 15:30 Note Text: [facility] received prescription(s) for Stelara- dose increase from Dr. Gold's office. Benefits investigation was conducted, indicating that a prior authorization is required by patient's insurance plan with [employer] medicare. Encounter will be updated once prior authorization has been submitted by [facility]. Shira Matta CPhT, Inflammatory/Allergy [facility] [phone] [facility] 04-14-2025 Note HNO ID: [id number] Author: SCOTT GOLD MD Service: ? Author Type: Physician Type: Progress Notes Filed: 04/14/2025 15:04 Note Text: On 04/14/2025, I had the pleasure of evaluating Sid Lezama in a follow-up [facility] appointment for seronegative spondyloarthropathy. This Team Access Model visit is a virtual encounter utilizing both video and audio components. It required patient-provider interaction for the medical decision making as documented below. My name and active licensure have been communicated. The patient's identity and physical location were verified at the time of this visit. Either the patient or their legal printing sales representative has been informed of the risks and benefits of -- and alternatives to -- treatment through a remote evaluation and consents to proceed with the evaluation remotely. HPI: To review, Sid Lezama is a 49 year old female - Since teenage years, with intermittent joint pain and swelling. Affected joints include the wrists, MCPs, PIPs, knees, ankles and toes. Also gets hip pain. Eases with movement/activity. Worst pain is evening. - In April, diagnosed with Crohn's per colonoscopy. Underwent surgery to remove the large intestine. - In , had a rectal fistula so tried remicade (stopped s/p 6th dose for rash). Rectal stump was removed after that. - Sees pain management for serial spinal injections - In , diagnosed with psoriasis over scalp, knees and dorsal feet. - In Jun, reported no GI issues, no need for medication or surgery for Crohn's since . Diagnosed with SpA. Advised humira which she decided against starting given c/f potential SE - Since February, has been seeing holistic provider. Taking supplements - In Jul, reported she had lost 20 lbs. Overall stable. - In Jun, reported she had 3 doses of stelara which she started after the prior visit. Had had 3 doses thus far. Improved psoriasis, not yet of joints - In Dec, reported 70-80% improved in the joints and skin with the stelara. - In March, reported she had a couple of ticks on her while mowing her mother's lawn. A little red at the spot, no target lesion. Otherwise, psoriasis is clear and joints were stable with the stelara. Hip OA/pain, seeing ortho-to start PT soon - Today, reports continued soreness of the R wrist and bilateral 2nd index fingers along with swelling. Psoriasis plaque of posterior neck and joint pain worsens 1 month prior to next stelara injection which she gets every 12 weeks. - To get a C7 kenalog injection. 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 Lumbago 01/10/2007 Myalgia and myositis, unspecified Pain management Dr Stern Nonalcoholic fatty liver disease 08/24/2007 Other and unspecified hyperlipidemia 01/10/2007 PMH - PAST MEDICAL HISTORY OF Cx scarred to post vag wall/difficult exam Pneumonia, organism unspecified(486) 01/10/2007 Regional enteritis of large intestine (HCC) 08/07/2006 Retention of urine, unspecified 01/01/2007 Rheumatoid arthritis(714.0) Dr. Mc, [facility] Type II or unspecified type diabetes mellitus without mention of complication, not stated as uncontrolled Ureterolithiasis 07/18/2019 GERD PAST SURGICAL HISTORY Procedure Laterality Date ADENOIDECTOMY PRIMARY Adenoidectomy ARTHROSCOPY KNEE DIAGNOSTIC W/WO SYNOVIAL BX SPX 1989 Arthroscopy, knee, left BRNCC INCL FLUOR GDNCE DX W/CELL WASHG SPX 01/2007 Bronchoscopy EGD 05/02/2023 EPIDURAL 2011 multiple ones done by Dr. Beckett ILEOSCOPY 05/02/2023 PAST SURGICAL HISTORY OF 06/2000 ILEOSTOMY/COLECTOMY PAST SURGICAL HISTORY OF 1993 CRYOCAUTERY/ MILD DYSPLASIA PAST SURGICAL HISTORY OF 03/2006 Abdominal abscess with anal fistula PRCTECT COMPL W/STOT/TOT COLCT W/VENEER JOINER BXS 12/05/2006 AP endoanal proctectomy SHOULDER ARTHROSCOPY/SURGERY Left 05/06/2020 Rotator cuff debridement, subacromial decompression/arthroplasty TONSILLECTOMY PRIMARY/SECONDARY Tonsillectomy ALLERGIES Allergen Reactions Azithromycin Unknown thinks a rash Dilaudid [Hydromorp* Swelling migraines Levemir [Insulin De* Other: See Comments Urine turned dark and smelly Methadone Swelling migraine Morphine Swelling migraines Remicade [Inflixima* Intolerance, Rash broke out in blisters with the 6th dose. Ultram [Tramadol Hc* Swelling migraines MEDICATIONS: Current Outpatient Medications Medication Sig Insulin Lynch, Disposable, (DROPLET PEN NEEDLE) 32 gauge x 5/32 USE TO INJECT INSULIN UP TO 8 TIMES P (more content not included)... [facility] 04-14-2025 History of Present illness Narrative On 04/14/2025, I had the pleasure of evaluating Sid Lezama in a follow-up [facility] appointment for seronegative spondyloarthropathy. This Team Access Model visit is a virtual encounter utilizing both video and audio components. It required patient-provider interaction for the medical decision making as documented below. My name and active licensure have been communicated. The patient's identity and physical location were verified at the time of this visit. Either the patient or their legal printing sales representative has been informed of the risks and benefits of -- and alternatives to -- treatment through a remote evaluation and consents to proceed with the evaluation remotely. HPI: To review, Sid Lezama is a 49 year old female - Since teenage years, with intermittent joint pain and swelling. Affected joints include the wrists, MCPs, PIPs, knees, ankles and toes. Also gets hip pain. Eases with movement/activity. Worst pain is evening. - In April, diagnosed with Crohn's per colonoscopy. Underwent surgery to remove the large intestine. - In , had a rectal fistula so tried remicade (stopped s/p 6th dose for rash). Rectal stump was removed after that. - Sees pain management for serial spinal injections - In , diagnosed with psoriasis over scalp, knees and dorsal feet. - In Jun, reported no GI issues, no need for medication or surgery for Crohn's since . Diagnosed with SpA. Advised humira which she decided against starting given c/f potential SE - Since February, has been seeing holistic provider. Taking supplements - In Jul, reported she had lost 20 lbs. Overall stable. - In Jun, reported she had 3 doses of stelara which she started after the prior visit. Had had 3 doses thus far. Improved psoriasis, not yet of joints - In Dec, reported 70-80% improved in the joints and skin with the stelara. - In March, reported she had a couple of ticks on her while mowing her mother's lawn. A little red at the spot, no target lesion. Otherwise, psoriasis is clear and joints were stable with the stelara. Hip OA/pain, seeing ortho-to start PT soon - Today, reports continued soreness of the R wrist and bilateral 2nd index fingers along with swelling. Psoriasis plaque of posterior neck and joint pain worsens 1 month prior to next stelara injection which she gets every 12 weeks. - To get a C7 kenalog injection. 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 Lumbago 01/10/2007 Myalgia and myositis, unspecified Pain management Dr Stern Nonalcoholic fatty liver disease 08/24/2007 Other and unspecified hyperlipidemia 01/10/2007 PMH - PAST MEDICAL HISTORY OF Cx scarred to post vag wall/difficult exam Pneumonia, organism unspecified(486) 01/10/2007 Regional enteritis of large intestine (HCC) 08/07/2006 Retention of urine, unspecified 01/01/2007 Rheumatoid arthritis(714.0) Dr. Mc, [facility] Type II or unspecified type diabetes mellitus without mention of complication, not stated as uncontrolled Ureterolithiasis 07/18/2019 GERD PAST SURGICAL HISTORY Procedure Laterality Date ADENOIDECTOMY PRIMARY <AGE 11 1986 Adenoidectomy ARTHROSCOPY KNEE DIAGNOSTIC W/WO SYNOVIAL BX SPX 1989 Arthroscopy, knee, left BRNCHSC INCL FLUOR GDNCE DX W/CELL WASHG SPX 01/2007 Bronchoscopy EGD 05/02/2023 EPIDURAL 2011 multiple ones done by Dr. Beckett ILEOSCOPY 05/02/2023 PAST SURGICAL HISTORY OF 06/2000 ILEOSTOMY/COLECTOMY PAST SURGICAL HISTORY OF 1993 CRYOCAUTERY/ MILD DYSPLASIA PAST SURGICAL HISTORY OF 03/2006 Abdominal abscess with anal fistula PRCTECT COMPL W/STOT/TOT COLCT W/VENEER JOINER BXS 12/05/2006 AP endoanal proctectomy SHOULDER ARTHROSCOPY/SURGERY Left 05/06/2020 Rotator cuff debridement, subacromial decompression/arthroplasty TONSILLECTOMY PRIMARY/SECONDARY <AGE 11 1986 Tonsillectomy ALLERGIES Allergen Reactions Azithromycin Unknown thinks a rash Dilaudid [Hydromorp* Swelling migraines Levemir [Insulin De* Other: See Comments Urine turned dark and smelly Methadone Swelling migraine Morphine Swelling migraines Remicade [Inflixima* Intolerance, Rash broke out in blisters with the 6th dose. Ultram [Tramadol Hc* Swelling migraines MEDICATIONS: Current Outpatient Medications Medication Sig Insulin Lynch, Disposable, (DROPLET PEN NEEDLE) 32 gauge x 5/32 USE TO INJECT INSULIN UP TO 8 TIMES PER DAY naproxen sodium (ALEVE ORAL) Take by mouth. Once daily insulin lispro (HUMALOG KWIKPEN) 100 unit/mL Inject 2 Units subcutaneously three times a day before meals. Plus sliding scale #2 If blood sugar is: Additional units < 150 0 151-200 2 201-250 4 251-300 6 301-350 8 > 350 18 units Max daily dose insulin glargine (LANTUS SOLOSTAR U-100 INSULIN) 100 unit/mL (3 mL) INJECT 40 UNITS UNDER THE SKIN EVERY evening Blood-Glucose Sensor (FREESTYLE GIANFRANCO 3 PLUS SENSOR) matilda Apply new sensor every fifteen (15) days to upper arm. ustekinumab (STELARA) 45 mg/0.5 mL syringe Inject 45 mg (1 syringe) subcutaneously every 12 weeks potassium citrate ER (UROCIT-K) 10 mEq (1,080 mg) Take 1 tablet by mouth two times a day. pantoprazole DR (PROTONIX) 20 mg tablet Take 1 tablet by mouth daily before breakfast. Take on empty stomach, 1/2 hr before meal. blood sugar diagnostic (ACCU-CHEK GUIDE TEST STRIPS) test strip USE WITH BLOOD GLUCOSE TEST THREE TIMES A DAY. Lancets (ACCU-CHEK FASTCLIX LANCET DRUM) Use as instructed to check blood glucose up to 2 times daily. E11.9 Lancing Device with Lancets ACCU CHEK FASTCLIX LANCET *DEVICE* use to check blood glucose up to 2 times per day as instructed. E11.9 GVOKE PFS 1-PACK SYRINGE 1 mg/0.2 mL syrg INJECT 0.2 ML UNDER THE SKIN NEEDED. clobetasol (TEMOVATE) 0.05 % ointment Apply to affected area two times a day. Face. Feet. Two weeks on and two weeks off, per [facility]. fexofenadine HCl (LELA ORAL) Take by mouth. levonorgestrel (MIRENA) 20 mcg/24 hours (8 yrs) 52 mg IUD 1 Each by INTRAUTERINE route as directed. oxyCODONE-acetaminophen (PERCOCET) 5-325 mg tablet TAKE 1 TABLET BY MOUTH 3 TIMES A DAY NEEDED FOR 28 DAYS (Patient taking differently: Every 8 hours per patient) vits62/FA/om3/dha/epa ( GUMMY ORAL) Take 2 Doses by mouth once daily. Blood-Glucose Meter (ACCU-CHEK DIANNE) Test blood sugar(s) 2 times daily. Dx: Type 2 DM - Controlled E11.9 Insulin: No, Accu-check brand covered by insurance Ascorbic Acid 500 mg chew Take 1,000 mg by mouth once daily. With rosehips elderberry fruit (ELDERBERRY ORAL) Take by mouth. COMPOUNDED PRESCRIPTION 1. V44.2 Ileostomy status (HCC) (primary diagnosis) 2. 555.1 Regional enteritis of large intestine (HCC) Ileostomy Supplies. 1. Pouches, 2. Planges, 3. Felipe seals, 4. Stoma adhesive, 5. Stoma powder, 6. Skin preps, 7. Adhesive remover wipes. Dispense 1 year supplies. tiZANidine (ZANAFLEX) 4 mg tablet Take by mouth. . Takes 1 tablet at bedtime. (Patient taking differently: Take by mouth. . Takes 2 tablet at bedtime.) No current facility-administered medications for this visit. FAMILY HISTORY Problem Relation Age of Onset Alcohol/Drug Mother Hypertension Mother COPD other (vascular disease) Mother other (sleep apnea) Mother other (heart murmur) Mother Alcohol/Drug Father Cancer Father liver Asthma Brother Hypertension Daughter Diabetes Maternal Grandmother Stroke Maternal Grandmother Heart Maternal Grandmother Emphysema Paternal Grandmother Diabetes Paternal Grandfather Macular Degen Paternal Grandfather Anesthesia Problems No Family History F-hemochromatosis, in from it. SOCIAL HISTORY: Lives in [place], [place] with spouse. 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 1 daughter, 24 yo lives with her. 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 Tobacco use: None Alcohol use: None Drug use: None REVIEW OF SYSTEMS: reviewed 08/26 systems, as above *Jun Widespread Pain Index: 16 (0-19) Symptoms Severity Scale: 6 (0-12) WPI>7 and SS Scale>5 OR WPI 3-6 and SS Scale >9 consistent with fibromyalgia LABORATORY: Latest Ref Rng 03/24/2025 WBC 3.70 - 11.00 k/uL 5.63 RBC 3.90 - 5.20 m/uL 4.79 Hemoglobin 11.5 - 15.5 g/dL 13.9 Platelet Count 150 - 400 k/uL 211 MPV 9.0 - 12.7 fL 10.4 Absolute nRBC <0.01 k/uL <0.01 Creatinine 0.58 - 0.96 mg/dL 0.62 eGFR >=60 mL/min/1.73m 109 ALT 7 - 38 U/L 29 AST 13 - 35 U/L 22 Lyme Antibodies, Screen Negative Negative *April neg quant gold Component Latest Ref Rng & Units 04/19/2022 Hep C Antibody IA Negative Negative Hep B Surface Ag Negative Negative Hep B Surface Ab, Qual Negative Negative Hep B Core Ab, Total Negative Negative Component Latest Ref Rng & Units 09/19/2011 12/21/2011 Rheumatoid Factor <20 IU/mL <7 CCP Antibody, IgG <20 Units <15 HLA B27 NEGAT Positive (A) INOCENCIO by EIA <1.5 OD Ratio 0.4 Anti-SSA <1.0 AI <0.2 Anti-SSB <1.0 AI <0.2 STUDIES: *March US wrists/hands- Active synovitis of the bilateral second MCP joints and the right carpus. No tenosynovitis. *March xray L hip- Mild degenerative changes *April MRI R shoulder- mild supraspinatus tendinosis *Oct xray L foot- Calcaneal enthesophytes. *Oct MRI pelvis- NO ACUTE ABNORMALITY Sacroiliac joints: Punctate area of subchondral edema within the right sacrum at the SI joint on series 8 image 11, doubtful clinical significance. *Sep xray SI joints- Asymmetrical sacroiliitis involving the left SI joint. *Sep xray hands/feet- Mild degenerative change. IMPRESSION and PLAN: 1. Seronegative spondyloarthropathy: With joint pain/swelling responsive to systemic effect of localized steroid joint injections in the setting of a positive HLA-B27, x-rays show L SI joint sacroiliitis, history of Crohn's and psoriasis. Remicade with blisters. Stelara with improvement in the skin and joints. March US with active synovitis - Start MTX 15mg SC weekly/FA 1mg/day. Potential side effects were explained including liver toxicity, lung toxicity, bone marrow suppression, increased risk for infection, mouth sores, nausea/vomiting and diarrhea. Explained that methotrexate should be held in case of infection and restarted after symptoms resolve. Advised taking folic acid 1 mg daily to help offset some of the potential side effects such as mouth sores. Explained that routine lab monitoring will be required every month for the first 3 months and if stable, every 3 months thereafter while on methotrexate. Advised that methotrexate be held for 1 week after any potential future vaccination to optimize the body's ability to build immunity from the vaccine. Sent info via . Patient stated understanding of and agreement with the plan. - Increase frequency to stelara 45mg SC every 8 weeks (from every 12 weeks). Has wearing off of rash and joint pain 4 weeks prior to next dose - Check quant gold/hep b, c. Notify of results via Moqomt including if ok to start MTX/FA. 2. Spinal osteoarthritis: - Continue pain clinic management (not [facility]) 3. R rotator cuff tear: - Orthopedic management 4. General health maintenance: - Not planning to get the covid vaccine as she had covid in May '21 - Advised to continue follow-up with PCP for routine health maintenance and malignancy screening Follow-up in 6 months with Steve and 12 months with . Thank you for allowing me to participate in the care of your patient. Scott Gold MD documented in this encounter [facility] 04-14-2025 Telephone encounter Note Images from the original note were not included. Most recent Endocrinology visit: Last encounter Visit on 02/13/2025 (with Alie Stallworth) 07/24/2023 in [facility] with PANDA HARRISON for Type 2 diabetes mellitus treated with insulin (HCC) 11/14/2023 in [facility] with PANDA HARRISON for Type 2 diabetes mellitus with hyperglycemia, with long-term current use of insulin ([facility]) 02/16/2024 in [facility] with ALIE STALLWORTH for Type 2 diabetes mellitus with hyperglycemia, with long-term current use of insulin ([facility]) 05/20/2024 in [facility] with ALIE STALLWORTH for Type 2 diabetes mellitus with hyperglycemia, with long-term current use of insulin ([facility]) 11/19/2024 in [facility] with ALIE STALLWORTH for Type 2 diabetes mellitus with hyperglycemia, with long-term current use of insulin ([facility]) 02/13/2025 in [facility] with ALIE STALLWORTH for Diabetes mellitus type 1, controlled, without complications ([facility]) Upcoming Endocrinology Appointments - Next 365 Days Visit Type Date Time Department VIDEO SPEC EST 05/20/2025 10:30 AM [facility] Requested Prescriptions Pending Prescriptions Disp Refills Insulin Lynch, Disposable, (DROPLET PEN NEEDLE) 32 gauge x 5/32 [Pharmacy Med Name: Droplet Pen Lynch Miscellaneous 32G X 4 MM] 600 each Sig: USE TO INJECT INSULIN UP TO 8 TIMES PER DAY Latest Ref Rng & Units 12/18/2024 05/20/2024 02/16/2024 Hemoglobin A1C Hemoglobin A1C 4.3 - 5.6 % 8.4 Hemoglobin A1C (POCT) 4.3 - 5.6 % 7.0 6.5 TSH: None on file in the last 12 months Free T3: None on file in the last 12 months Free T4: None on file in the last 12 months Thyroglobulin: None on file in the last 12 months Latest Ref Rng & Units 05/15/2024 12/20/2022 04/19/2022 Vitamin D Vitamin D 25 Hydroxy 31.0 - 80.0 ng/mL 51.5 62.6 58.5 Vit D1,25 Dihydroxy 19.9 - 79.3 pg/mL 151.0 Latest Ref Rng & Units 03/24/2025 12/18/2024 12/12/2024 Hematocrit Hematocrit 36.0 - 46.0 % 42.6 42.9 39.6 Latest Ref Rng & Units 03/24/2025 01/10/2025 12/18/2024 Creatinine Creatinine 0.58 - 0.96 mg/dL 0.62 0.59 0.60 Latest Ref Rng & Units 03/24/2025 01/10/2025 12/18/2024 eGFR EGFR >=60 mL/min/1.73m 109 110 110 Latest Ref Rng & Units 01/10/2025 12/12/2024 12/11/2024 Potassium Potassium 3.7 - 5.1 mmol/L 4.6 3.8 3.9 Testosterone: None on file in the last 12 months IGF: None on file in the last 12 months Prolactin: None on file in the last 12 months [facility] 04-14-2025 Miscellaneous Notes Images from the original note were not included. Most recent Endocrinology visit: Last encounter Visit on 02/13/2025 (with Alie Stallworth) 07/24/2023 in [facility] with PANDA HARRISON for Type 2 diabetes mellitus treated with insulin ([facility]) 11/14/2023 in [facility] with PANDA HARRISON for Type 2 diabetes mellitus with hyperglycemia, with long-term current use of insulin ([facility]) 02/16/2024 in [facility] with ALIE STALLWORTH for Type 2 diabetes mellitus with hyperglycemia, with long-term current use of insulin ([facility]) 05/20/2024 in [facility] with ALIE STALLWORTH for Type 2 diabetes mellitus with hyperglycemia, with long-term current use of insulin ([facility]) 11/19/2024 in [facility] with ALEI STALLWORTH for Type 2 diabetes mellitus with hyperglycemia, with long-term current use of insulin ([facility]) 02/13/2025 in [facility] with ALIE STALLWORTH for Diabetes mellitus type 1, controlled, without complications ([facility]) Upcoming Endocrinology Appointments - Next 365 Days Visit Type Date Time Department VIDEO SPEC EST 05/20/2025 10:30 AM [facility] Requested Prescriptions Pending Prescriptions Disp Refills Insulin Lynch, Disposable, (DROPLET PEN NEEDLE) 32 gauge x 5/32 [Pharmacy Med Name: Droplet Pen Lynch Miscellaneous 32G X 4 MM] 600 each Sig: USE TO INJECT INSULIN UP TO 8 TIMES PER DAY Latest Ref Rng & Units 12/18/2024 05/20/2024 02/16/2024 Hemoglobin A1C Hemoglobin A1C 4.3 - 5.6 % 8.4 Hemoglobin A1C (POCT) 4.3 - 5.6 % 7.0 6.5 TSH: None on file in the last 12 months Free T3: None on file in the last 12 months Free T4: None on file in the last 12 months Thyroglobulin: None on file in the last 12 months Latest Ref Rng & Units 05/15/2024 12/20/2022 04/19/2022 Vitamin D Vitamin D 25 Hydroxy 31.0 - 80.0 ng/mL 51.5 62.6 58.5 Vit D1,25 Dihydroxy 19.9 - 79.3 pg/mL 151.0 Latest Ref Rng & Units 03/24/2025 12/18/2024 12/12/2024 Hematocrit Hematocrit 36.0 - 46.0 % 42.6 42.9 39.6 Latest Ref Rng & Units 03/24/2025 01/10/2025 12/18/2024 Creatinine Creatinine 0.58 - 0.96 mg/dL 0.62 0.59 0.60 Latest Ref Rng & Units 03/24/2025 01/10/2025 12/18/2024 eGFR EGFR >=60 mL/min/1.73m 109 110 110 Latest Ref Rng & Units 01/10/2025 12/12/2024 12/11/2024 Potassium Potassium 3.7 - 5.1 mmol/L 4.6 3.8 3.9 Testosterone: None on file in the last 12 months IGF: None on file in the last 12 months Prolactin: None on file in the last 12 months documented in this encounter [facility] 04-10-2025 Telephone encounter Note Spoke with patient, relayed message below. Scheduled virtual appointment for 04/14. Annemarie Jordan RN [facility] 04-10-2025 Miscellaneous Notes Spoke with patient, relayed message below. Scheduled virtual appointment for 04/14. Annemarie Jordan RN ----- Message from Scott Gold MD sent at 04/10/2025 11:01 AM EDT ----- Please let her know the ultrasound shows active inflammation of the knuckles in both index fingers and the right wrist. I'd advise doing a virtual visit with her on Saturday 04/14. Please schedule accordingly. Thanks. documented in this encounter [facility] 04-10-2025 Telephone encounter Note ----- Message from Scott Gold MD sent at 04/10/2025 11:01 AM EDT ----- Please let her know the ultrasound shows active inflammation of the knuckles in both index fingers and the right wrist. I'd advise doing a virtual visit with her on Saturday 04/14. Please schedule accordingly. Thanks. [facility] 04-02-2025 Note HNO ID: [id number] Author: YURI PITT PT Service: ? Author Type: Physical Therapist Type: Progress Notes Filed: 04/02/2025 09:47 Note Text: Episode Visit Count: 1 Therapist That Will Accept/Oversee The Plan Of Care: Yuri Pitt Start of Care Date: 04/02/25 Onset Date: 11/13/24 Plan of Care Certification Date: 04/02/25 Next Certification Due Date: 06/11/25 Patient Identified by Name and Date of : Yes REHABILITATION AND SPORTS THERAPY PHYSICAL THERAPY EVALUATION PLAN OF CARE: Assessment: Sid Lezama presents with chief complaint of R shoulder and L hip pain that interferes with rising from a chair, standing, walking, stair negotiation, bending, heavy exertion, lifting, physical activities, recreational activities, cleaning, cooking . The patient presents with impairments in ADL's, joint mobility, overall function, range of motion, strength, and symptom management. PROMIS? (Patient-Reported Outcomes Measurement Information System) scores were reviewed and identified as within normal limits. Prognosis for therapy is Good due to: current objective clinical presentation, positive past response to therapy, good support system/ coping skills . The patient will benefit from skilled therapy services to meet the goals established for this plan of care as noted below. Goals for Episode of Care: established 04/02/25 Gage in home exercise program. Patient will decrease pain rating by 2 points to meet minimal clinical important difference for numeric pain rating scale. Patient will demonstrate increase in R periscapular and L lateral hip/glute strength to 4+/5 during manual muscle testing in order to improve function for basic self-care tasks, home management tasks, light functional tasks, and moderate to heavy functional tasks. Perform rising from a chair, standing, walking with decreased report of symptoms/pain in 6-8 weeks. Time Frame for Goals and Treatment : 06/02/25 Planned Interventions, Frequency, and Duration: Current Frequency: 1x/week Duration: 8 weeks Total Number of Visits Planned: 8 Planned Treatment Interventions: Therapeutic exercise (55606), Neuromuscular re-education (00389), Manual therapy (46924), Therapeutic activities (47912), Self-snf management (98763), Patient/Family/Caregiver Education, Body Mechanics Training PLAN FOR NEXT VISIT: Assess carry over of HEP and progress strengthening per tolerance. Lateral hip/glutes, post shoulder/periscapular, and core strengthening main focus Patient demonstrates good understanding of plan of care and treatment. The above goals and plan of care were discussed and agreed upon by patient/family. SUBJECTIVE: R shoulder and L hip pain for years with worsening pain. Patient has RA, PMH of B shoulder surgery- debridement, biceps tenotomy, and ANGLE. Patient notes R shoulder has full motion but it is painful at rest, tight, and fatigues quickly. L hip constantly hurts. Also has sciatic pain that can run down to ankle. OA noted with hip imaging. Must keep moving or hip stiffens up on her, by the end of the day she is done. Needs pain meds to sleep, gets injections in lumbar from Dr Stern. Functional Limitations: rising from a chair, standing, walking, stair negotiation, bending, heavy exertion, lifting, physical activities, recreational activities, cleaning, cooking Intake Information: Prescription present Previous Treatment: Physical Therapy Pain: Pain Pain Level: 6 Pain Location: Shoulder - Right, Hip - Left, Low Back/Lumbar Spine- Midline Description: Aching, Sore, Stiffness Frequency: Continuous PROMIS Scales 04/01/2025 03/12/2025 10/21/2024 Higher is Better Phys Func - T Score 41 (mild dysfunction) 40 (mild dysfunction) Phys Func - Percentile 18 16 Self-Eff Symptom - T Score 51 (Average) Self-Eff Symptom - Percentile 54 03/23/2025 10/21/2024 06/07/2024 Lower is Better Pain Interference - T Score 63 (moderate) 58 (mild) 72 (severe) Pain Interference - Percentile 10 21 1 T-scores: mean of general population = 50. 5 points is clinically meaningfully difference Percentiles provide an indication of how the patient's score ranks in relation to the general population. Higher percentile rankings indicate better function/quality of life. 50th percentile is the average of the general population and indicates half of respondents had a worse score. OBJECTIVE MEASURES WITH LEVEL OF FUNCTION: UE AROM R UE AROM: WNL LE PROM R LE PROM: WNL L LE PROM : Moderate limitations in flexion, ER, IR UE and Cervical Strength Strength Tested: Shoulder All R Shoulder Extension: 4+/5 R Shoulder Flexion: 5/5 R Shoulder Abduction (C5): 5/5 R Shoulder Internal Rotation: 5/5 R Shoulder External Rotation: 5/5 R Shoulder Horizontal ABduction: 4/5 R Shoulder Horizontal ADduction: 5/5 R Scapular Retraction: 4/5 R Scapular Protraction: 4/5 R Upper Trapezius: 4+/5 R Middle (more content not included)... [facility] 03-28-2025 Note HNO ID: [id number] Author: SAVANNA LONG MA Service: ? Author Type: Shaker Operator Type: Progress Notes Filed: 03/28/2025 13:53 Note Text: POPULATION HEALTH NAVIGATION OUTREACH Action/FYI Gaps due: Mammo A1C HCCs, no med adherence. OUTSIDE OPTH. Declined, Updated notes Reason for Outreach Care Gap/HCC or Scheduling Wellness Visits Care Gaps due: Breast Cancer Screening HBA1C Patient Contacted: Spoke to patient/parent/or legal guardian Patient identified by name and : No Navigation Signature: Savanna Long MA March 28, 2025 1:49 PM [facility] 03-28-2025 History of Present illness Narrative POPULATION HEALTH NAVIGATION OUTREACH Action/FYI Gaps due: Mammo A1C HCCs, no med adherence. OUTSIDE OPTH. Declined, Updated notes Reason for Outreach Care Gap/HCC or Scheduling Wellness Visits Care Gaps due: Breast Cancer Screening HBA1C Patient Contacted: Spoke to patient/parent/or legal guardian Patient identified by name and : No Navigation Signature: Savanna Long MA March 28, 2025 1:49 PM documented in this encounter [facility] 03-28-2025 Note Patient Outreach (NE TNAV) SID LEZAMA ([id number]) 1975 F Date Time Provider Department 03/28/25 SAVANNA LONG During your visit today, we recorded the following information about you: Savanna Long MA 03/28/2025 1:53 PM Addendum POPULATION HEALTH NAVIGATION OUTREACH Action/FYI Gaps due: Mammo A1C HCCs, no med adherence. OUTSIDE OPTH. Declined, Updated notes Reason for Outreach Care Gap/HCC or Scheduling Wellness Visits Care Gaps due: Breast Cancer Screening HBA1C Patient Contacted: Spoke to patient/parent/or legal guardian Patient identified by name and : No Navigation Signature: Savanna Long MA March 28, 2025 1:49 PM Allergies As of Date: 03/28/2025 Noted Allergy Reaction AZITHROMYCIN 03/18/2021 16 - Unknown Comments: thinks a rash DILAUDID (HYDROMORPHONE (BULK)) 08/07/2006 7 - Swelling [...] 7 - Swelling Comments: migraines Date Reviewed: 03/24/2025 Reviewed by: Justine Bautista MA - Fully Assessed Reason for Visit: Population Health Navigation Outreach [3910] Cmt: Cristopher carbajal Prescriptions as of 03/28/2025 - naproxen sodium (ALEVE ORAL) Take by mouth. Once daily - insulin lispro (HUMALOG KWIKPEN) 100 unit/mL Inject 2 Units subcutaneously three times a day before meals. Plus sliding scale #2 If blood sugar is: Additional units < 150 0 151-200 2 201-250 4 251-300 6 301-350 8 > 350 18 units Max daily dose - Insulin Lynch, Disposable, (PEN NEEDLE) 32 gauge x 5/32 Use to inject insulin up to 8 times per day. - insulin glargine (LANTUS SOLOSTAR U-100 INSULIN) 100 unit/mL (3 mL) INJECT 40 UNITS UNDER THE SKIN EVERY evening - Blood-Glucose Sensor (FREESTYLE GIANFRANCO 3 PLUS SENSOR) matilda Apply new sensor every fifteen (15) days to upper arm. - ustekinumab (STELARA) 45 mg/0.5 mL syringe Inject 45 mg (1 syringe) subcutaneously every 12 weeks - potassium citrate ER (UROCIT-K) 10 mEq (1,080 mg) Take 1 tablet by mouth two times a day. - pantoprazole DR (PROTONIX) 20 mg tablet Take 1 tablet by mouth daily before breakfast. Take on empty stomach, 1/2 hr before meal. - blood sugar diagnostic (ACCU-CHEK GUIDE TEST STRIPS) test strip USE WITH BLOOD GLUCOSE TEST THREE TIMES A DAY. - Lancets (ACCU-CHEK FASTCLIX LANCET DRUM) Use as instructed to check blood glucose up to 2 times daily. E11.9 - Lancing Device with Lancets ACCU CHEK FASTCLIX LANCET *DEVICE* use to check blood glucose up to 2 times per day as instructed. E11.9 - GVOKE PFS 1-PACK SYRINGE 1 mg/0.2 mL syrg INJECT 0.2 ML UNDER THE SKIN NEEDED. - clobetasol (TEMOVATE) 0.05 % ointment Apply to affected area two times a day. Face. Feet. Two weeks on and two weeks off, per [facility]. - fexofenadine HCl (LELA ORAL) Take by mouth. - levonorgestrel (MIRENA) 20 mcg/24 hours (8 yrs) 52 mg IUD 1 Each by INTRAUTERINE route as directed. - oxyCODONE-acetaminophen (PERCOCET) 5-325 mg tablet TAKE 1 TABLET BY MOUTH 3 TIMES A DAY NEEDED FOR 28 DAYS - vits62/FA/om3/dha/epa ( GUMMY ORAL) Take 2 Doses by mouth once daily. - Blood-Glucose Meter (ACCU-CHEK DIANNE) Test blood sugar(s) 2 times daily. Dx: Type 2 DM - Controlled E11.9 Insulin: No, Accu-check brand covered by insurance - Ascorbic Acid 500 mg chew Take 1,000 mg by mouth once daily. With rosehips - elderberry fruit (ELDERBERRY ORAL) Take by mouth. - COMPOUNDED PRESCRIPTION 1. V44.2 Ileostomy status (HCC) (primary diagnosis) 2. 555.1 Regional enteritis of large intestine (HCC) Ileostomy Supplies. 1. Pouches, 2. Planges, 3. Felipe seals, 4. Stoma adhesive, 5. Stoma powder, 6. Skin preps, 7. Adhesive remover wipes. Dispense 1 year supplies. - tiZANidine (ZANAFLEX) 4 mg tablet Take by mouth. . Takes 1 tablet at bedtime. Problem List As Of Date 03/28/2025 Noted Resolved REG ENTERITIS, LG INTEST [K50.10] 08/07/2006 Retention of urine, unspecified [R33.9] 01/01/2007 11/27/2018 Mixed hyperlipidemia [E78.2] 01/10/2007 Anemia, unspecified [D64.9] 01/10/2007 03/08/2012 Nonspecific abnormal results of liver function *08/24/2007 04/19/2011 Onychia and paronychia of toe [L03.039] 09/26/2007 02/18/2013 ILEOSTOMY STATUS [Z93.2] 09/28/2007 IMPAIRED GLUCOSE JUNE TEST [R73.09] 01/31/2008 04/16/2008 Type 2 diabetes mellitus treated with insulin (*02/12/2008 Fibromyalgia [M79.7] 05/05/2008 Non-alcoholic fatty liver disease [K76.0] 08/24/2007 Mild dysplasia of cervix [N87.0] 10/27/2009 03/08/2012 Fibromyalgia [M79. (more content not included)... [facility] 03-24-2025 Telephone encounter Note PT scheduled for MSK US on 04/10/25 at 9:15 AM at [facility]. [facility] 03-24-2025 Miscellaneous Notes PT scheduled for MSK US on 04/10/25 at 9:15 AM at Main. Called patient on March 24, 2025 at 10:54 AM to schedule their MSK US exam. PT answer, PT was unable to schedule the appointment at that time, 1st attempt. Visit Type: MSK SYN Visit Length: 45, 50 OR 60 MINUTES Order Name/Protocol: US HAND/WRIST SYNOVIAL SCREEN RT+LT Preferred Provider: N/A Comment: N/A Location: ANY FACILITY Slot held: N/A documented in this encounter [facility] 03-24-2025 Telephone encounter Note Called patient on March 24, 2025 at 10:54 AM to schedule their MSK US exam. PT answer, PT was unable to schedule the appointment at that time, 1st attempt. [facility] 03-24-2025 Telephone encounter Note Visit Type: MSK SYN Visit Length: 45, 50 OR 60 MINUTES Order Name/Protocol: US HAND/WRIST SYNOVIAL SCREEN RT+LT Preferred Provider: N/A Comment: N/A Location: ANY FACILITY Slot held: N/A [facility] 03-24-2025 Note HNO ID: [id number] Author: SCOTT GOLD MD Service: ? Author Type: Physician Type: Progress Notes Filed: 03/24/2025 10:47 Note Text: On 03/24/2025, I had the pleasure of seeing Sid Lezama at the [facility] for follow-up of seronegative spondyloarthropathy HPI: To review, Sid Lezama is a 49 year old female - Since teenage years, with intermittent joint pain and swelling. Affected joints include the wrists, MCPs, PIPs, knees, ankles and toes. Also gets hip pain. Eases with movement/activity. Worst pain is evening. - In April, diagnosed with Crohn's per colonoscopy. Underwent surgery to remove the large intestine. - In , had a rectal fistula so tried remicade (stopped s/p 6th dose for rash). Rectal stump was removed after that. - Sees pain management for serial spinal injections - In , diagnosed with psoriasis over scalp, knees and dorsal feet. - In Jun, reported no GI issues, no need for medication or surgery for Crohn's since . Diagnosed with SpA. Advised humira which she decided against starting given c/f potential SE - Since February, has been seeing holistic provider. Taking supplements - In Jul, reported she had lost 20 lbs. Overall stable. - In Jun, reported she had 3 doses of stelara which she started after the prior visit. Had had 3 doses thus far. Improved psoriasis, not yet of joints - In Dec, reported 70-80% improved in the joints and skin with the stelara. - Today, reports she has had a couple of ticks on her while mowing her mother's lawn. A little red at the spot, no target lesion. Otherwise, psoriasis is clear and joints are stable with the stelara. 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 Lumbago 01/10/2007 Myalgia and myositis, unspecified Pain management Dr Stern Nonalcoholic fatty liver disease 08/24/2007 Other and unspecified hyperlipidemia 01/10/2007 PMH - PAST MEDICAL HISTORY OF Cx scarred to post vag wall/difficult exam Pneumonia, organism unspecified(486) 01/10/2007 Regional enteritis of large intestine (HCC) 08/07/2006 Retention of urine, unspecified 01/01/2007 Rheumatoid arthritis(714.0) Dr. Mc, [facility] Type II or unspecified type diabetes mellitus without mention of complication, not stated as uncontrolled Ureterolithiasis 07/18/2019 GERD PAST SURGICAL HISTORY Procedure Laterality Date ADENOIDECTOMY PRIMARY Adenoidectomy ARTHROSCOPY KNEE DIAGNOSTIC W/WO SYNOVIAL BX SPX 1989 Arthroscopy, knee, left BRNCC INCL FLUOR GDNCE DX W/CELL WASHG SPX 01/2007 Bronchoscopy EGD 05/02/2023 EPIDURAL 2010 multiple ones done by Dr. Beckett ILEOSCOPY 05/02/2023 PAST SURGICAL HISTORY OF 06/2000 ILEOSTOMY/COLECTOMY PAST SURGICAL HISTORY OF 1993 CRYOCAUTERY/ MILD DYSPLASIA PAST SURGICAL HISTORY OF 03/2006 Abdominal abscess with anal fistula PRCTECT COMPL W/STOT/TOT COLCT W/VENEER JOINER BXS 12/05/2006 AP endoanal proctectomy SHOULDER ARTHROSCOPY/SURGERY Left 05/06/2020 Rotator cuff debridement, subacromial decompression/arthroplasty TONSILLECTOMY PRIMARY/SECONDARY Tonsillectomy ALLERGIES Allergen Reactions Azithromycin Unknown thinks a rash Dilaudid [Hydromorp* Swelling migraines Levemir [Insulin De* Other: See Comments Urine turned dark and smelly Methadone Swelling migraine Morphine Swelling migraines Remicade [Inflixima* Intolerance, Rash broke out in blisters with the 6th dose. Ultram [Tramadol Hc* Swelling migraines MEDICATIONS: Current Outpatient Medications Medication Sig insulin lispro (HUMALOG KWIKPEN) 100 unit/mL Inject 2 Units subcutaneously three times a day before meals. Plus sliding scale #2 If blood sugar is: Additional units < 150 0 151-200 2 201-250 4 251-300 6 301-350 8 > 350 18 units Max daily dose Insulin Lynch, Disposable, (PEN NEEDLE) 32 gauge x 5/32 Use to inject insulin up to 8 times per day. insulin glargine (LANTUS SOLOSTAR U-100 INSULIN) 100 unit/mL (3 mL) INJECT 40 UNITS UNDER THE SKIN EVERY evening Blood-Glucose Sensor (FREESTYLE GIANFRANCO 3 PLUS SENSOR) matilda Apply new sensor every fifteen (15) days to upper arm. ustekinumab (STELARA) 45 mg/0.5 mL syringe Inject 45 mg (1 syringe) subcutaneously every 12 weeks potassium citrate ER (UROCIT-K) 10 mEq (1,080 mg) Take 1 tablet by mouth two times a day. pantoprazole DR (PROTONIX) 20 mg tablet Take 1 tablet by mouth daily before breakfast. Take on empty stomach, 1/2 hr b (more content not included)... [facility] 03-24-2025 History of Present illness Narrative On 03/24/2025, I had the pleasure of seeing Sid Lezama at the [facility] for follow-up of seronegative spondyloarthropathy HPI: To review, Sid Lezama is a 49 year old female - Since teenage years, with intermittent joint pain and swelling. Affected joints include the wrists, MCPs, PIPs, knees, ankles and toes. Also gets hip pain. Eases with movement/activity. Worst pain is evening. - In April, diagnosed with Crohn's per colonoscopy. Underwent surgery to remove the large intestine. - In , had a rectal fistula so tried remicade (stopped s/p 6th dose for rash). Rectal stump was removed after that. - Sees pain management for serial spinal injections - In , diagnosed with psoriasis over scalp, knees and dorsal feet. - In Jun, reported no GI issues, no need for medication or surgery for Crohn's since . Diagnosed with SpA. Advised humira which she decided against starting given c/f potential SE - Since February, has been seeing holistic provider. Taking supplements - In Jul, reported she had lost 20 lbs. Overall stable. - In Jun, reported she had 3 doses of stelara which she started after the prior visit. Had had 3 doses thus far. Improved psoriasis, not yet of joints - In Dec, reported 70-80% improved in the joints and skin with the stelara. - Today, reports she has had a couple of ticks on her while mowing her mother's lawn. A little red at the spot, no target lesion. Otherwise, psoriasis is clear and joints are stable with the stelara. 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 Lumbago 01/10/2007 Myalgia and myositis, unspecified Pain management Dr Stern Nonalcoholic fatty liver disease 08/24/2007 Other and unspecified hyperlipidemia 01/10/2007 PMH - PAST MEDICAL HISTORY OF Cx scarred to post vag wall/difficult exam Pneumonia, organism unspecified(486) 01/10/2007 Regional enteritis of large intestine (HCC) 08/07/2006 Retention of urine, unspecified 01/01/2007 Rheumatoid arthritis(714.0) Dr. Mc, [facility] Type II or unspecified type diabetes mellitus without mention of complication, not stated as uncontrolled Ureterolithiasis 07/18/2019 GERD PAST SURGICAL HISTORY Procedure Laterality Date ADENOIDECTOMY PRIMARY <AGE 11 1986 Adenoidectomy ARTHROSCOPY KNEE DIAGNOSTIC W/WO SYNOVIAL BX SPX 1989 Arthroscopy, knee, left BRNCHSC INCL FLUOR GDNCE DX W/CELL WASHG SPX 01/2007 Bronchoscopy EGD 05/02/2023 EPIDURAL 2011 multiple ones done by Dr. Beckett ILEOSCOPY 05/02/2023 PAST SURGICAL HISTORY OF 06/2000 ILEOSTOMY/COLECTOMY PAST SURGICAL HISTORY OF 1993 CRYOCAUTERY/ MILD DYSPLASIA PAST SURGICAL HISTORY OF 03/2006 Abdominal abscess with anal fistula PRCTECT COMPL W/STOT/TOT COLCT W/VENEER JOINER BXS 12/05/2006 AP endoanal proctectomy SHOULDER ARTHROSCOPY/SURGERY Left 05/06/2020 Rotator cuff debridement, subacromial decompression/arthroplasty TONSILLECTOMY PRIMARY/SECONDARY <AGE 11 1986 Tonsillectomy ALLERGIES Allergen Reactions Azithromycin Unknown thinks a rash Dilaudid [Hydromorp* Swelling migraines Levemir [Insulin De* Other: See Comments Urine turned dark and smelly Methadone Swelling migraine Morphine Swelling migraines Remicade [Inflixima* Intolerance, Rash broke out in blisters with the 6th dose. Ultram [Tramadol Hc* Swelling migraines MEDICATIONS: Current Outpatient Medications Medication Sig insulin lispro (HUMALOG KWIKPEN) 100 unit/mL Inject 2 Units subcutaneously three times a day before meals. Plus sliding scale #2 If blood sugar is: Additional units < 150 0 151-200 2 201-250 4 251-300 6 301-350 8 > 350 18 units Max daily dose Insulin Lynch, Disposable, (PEN NEEDLE) 32 gauge x 5/32 Use to inject insulin up to 8 times per day. insulin glargine (LANTUS SOLOSTAR U-100 INSULIN) 100 unit/mL (3 mL) INJECT 40 UNITS UNDER THE SKIN EVERY evening Blood-Glucose Sensor (FREESTYLE GIANFRANCO 3 PLUS SENSOR) matilda Apply new sensor every fifteen (15) days to upper arm. ustekinumab (STELARA) 45 mg/0.5 mL syringe Inject 45 mg (1 syringe) subcutaneously every 12 weeks potassium citrate ER (UROCIT-K) 10 mEq (1,080 mg) Take 1 tablet by mouth two times a day. pantoprazole DR (PROTONIX) 20 mg tablet Take 1 tablet by mouth daily before breakfast. Take on empty stomach, 1/2 hr before meal. blood sugar diagnostic (ACCU-CHEK GUIDE TEST STRIPS) test strip USE WITH BLOOD GLUCOSE TEST THREE TIMES A DAY. Lancets (ACCU-CHEK FASTCLIX LANCET DRUM) Use as instructed to check blood glucose up to 2 times daily. E11.9 Lancing Device with Lancets ACCU CHEK FASTCLIX LANCET *DEVICE* use to check blood glucose up to 2 times per day as instructed. E11.9 GVOKE PFS 1-PACK SYRINGE 1 mg/0.2 mL syrg INJECT 0.2 ML UNDER THE SKIN NEEDED. clobetasol (TEMOVATE) 0.05 % ointment Apply to affected area two times a day. Face. Feet. Two weeks on and two weeks off, per [facility]. fexofenadine HCl (LELA ORAL) Take by mouth. levonorgestrel (MIRENA) 20 mcg/24 hours (8 yrs) 52 mg IUD 1 Each by INTRAUTERINE route as directed. oxyCODONE-acetaminophen (PERCOCET) 5-325 mg tablet TAKE 1 TABLET BY MOUTH 3 TIMES A DAY NEEDED FOR 28 DAYS (Patient taking differently: Every 8 hours per patient) vits62/FA/om3/dha/epa ( GUMMY ORAL) Take 2 Doses by mouth once daily. Blood-Glucose Meter (ACCU-CHEK DIANNE) Test blood sugar(s) 2 times daily. Dx: Type 2 DM - Controlled E11.9 Insulin: No, Accu-check brand covered by insurance Ascorbic Acid 500 mg chew Take 1,000 mg by mouth once daily. With rosehips elderberry fruit (ELDERBERRY ORAL) Take by mouth. COMPOUNDED PRESCRIPTION 1. V44.2 Ileostomy status (HCC) (primary diagnosis) 2. 555.1 Regional enteritis of large intestine (HCC) Ileostomy Supplies. 1. Pouches, 2. Planges, 3. Felipe seals, 4. Stoma adhesive, 5. Stoma powder, 6. Skin preps, 7. Adhesive remover wipes. Dispense 1 year supplies. tiZANidine (ZANAFLEX) 4 mg tablet Take by mouth. . Takes 1 tablet at bedtime. (Patient taking differently: Take by mouth. . Takes 2 tablet at bedtime.) naproxen sodium (ALEVE ORAL) Take by mouth. Once daily No current facility-administered medications for this visit. FAMILY HISTORY Problem Relation Age of Onset Alcohol/Drug Mother Hypertension Mother COPD other (vascular disease) Mother other (sleep apnea) Mother other (heart murmur) Mother Alcohol/Drug Father Cancer Father liver Asthma Brother Hypertension Daughter Diabetes Maternal Grandmother Stroke Maternal Grandmother Heart Maternal Grandmother Emphysema Paternal Grandmother Diabetes Paternal Grandfather Macular Degen Paternal Grandfather Anesthesia Problems No Family History F-hemochromatosis, in from it. SOCIAL HISTORY: Lives in [place], [place] with spouse. 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 1 daughter, 24 yo lives with her. 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 Tobacco use: None Alcohol use: None Drug use: None REVIEW OF SYSTEMS: reviewed 08/26 systems, as above PHYSICAL EXAM: VITALS: Blood pressure 131/81, pulse 67, temperature 36.6 C (97.9 F), temperature source Temporal, height 151.1 cm (4' 11.5), weight 75.8 kg (167 lb 1.7 oz), last menstrual period 07/25/2018. CONSTITUTIONAL: Well-appearing, in NAD. SKIN: Psoriasis of the occipital scalp, elsewhere resolved. No sclerodactyly, calcinosis, telangiectasias, digital ulcers, or skin thickening. EYES: No scleral icterus or conjunctivitis. ENT and Mouth: External ears normal. Nares normal. RESPIRATORY: Normal breath sounds, clear to auscultation. CARDIOVASCULAR: Regular rate and rhythm, no murmurs or rubs EXTREMITIES/LYMPH: No edema bilaterally NEURO: Awake, alert and oriented, antalgic gait MUSCULOSKELETAL: JOINT APPEARANCE: No erythema or warmth of any upper or lower extremity joint. RANGE OF MOTION: Able to fully close fists and curl fingers bilaterally. SWOLLEN JOINTS/SYNOVITIS: No synovitis of any joint. TENDER JOINTS: Tenderness to palpation of the L wrist *Jun Widespread Pain Index: 16 (0-19) Symptoms Severity Scale: 6 (0-12) WPI>7 and SS Scale>5 OR WPI 3-6 and SS Scale >9 consistent with fibromyalgia LABORATORY: Latest Ref Rng 12/18/2024 01/10/2025 WBC 3.70 - 11.00 k/uL 5.09 RBC 3.90 - 5.20 m/uL 4.77 Hemoglobin 11.5 - 15.5 g/dL 13.8 Platelet Count 150 - 400 k/uL 205 Creatinine 0.58 - 0.96 mg/dL 0.60 0.59 Sodium 136 - 144 mmol/L 135 (L) Potassium 3.7 - 5.1 mmol/L 4.6 Chloride 98 - 107 mmol/L 102 CO2 22 - 30 mmol/L 23 Anion Gap 8 - 15 mmol/L 10 Calcium 8.5 - 10.2 mg/dL 10.4 (H) eGFR >=60 mL/min/1.73m 110 110 AST 13 - 35 U/L 17 ALT 7 - 38 U/L 30 *April neg quant gold Component Latest Ref Rng & Units 04/19/2022 Hep C Antibody IA Negative Negative Hep B Surface Ag Negative Negative Hep B Surface Ab, Qual Negative Negative Hep B Core Ab, Total Negative Negative Component Latest Ref Rng & Units 09/19/2011 12/21/2011 Rheumatoid Factor <20 IU/mL <7 CCP Antibody, IgG <20 Units <15 HLA B27 NEGAT Positive (A) INOCENCIO by EIA <1.5 OD Ratio 0.4 Anti-SSA <1.0 AI <0.2 Anti-SSB <1.0 AI <0.2 STUDIES: *March xray L hip- Mild degenerative changes *April MRI R shoulder- mild supraspinatus tendinosis *Oct xray L foot- Calcaneal enthesophytes. *Oct MRI pelvis- NO ACUTE ABNORMALITY Sacroiliac joints: Punctate area of subchondral edema within the right sacrum at the SI joint on series 8 image 11, doubtful clinical significance. *Sep xray SI joints- Asymmetrical sacroiliitis involving the left SI joint. *Sep xray hands/feet- Mild degenerative change. IMPRESSION and PLAN: 1. Seronegative spondyloarthropathy: With joint pain/swelling responsive to systemic effect of localized steroid joint injections in the setting of a positive HLA-B27, '11 x-rays show L SI joint sacroiliitis, history of Crohn's and psoriasis. Remicade with blisters. Stelara with improvement in the skin and joints. With L wrist tenderness and finger swelling. - Continue stelara 45mg SC every 12 weeks. - Check US hands/wrists. Notify of results via MyChart. If synovitis, consider adding in MTX SC vs increase stelara to q 8 weeks - Check labs including for Lyme given multiple tick bites over the past 3 weeks. Notify of results via MyChart 2. Spinal osteoarthritis: - Continue pain clinic management (not [facility]) 3. R rotator cuff tear: - Orthopedic management 4. General health maintenance: - Not planning to get the covid vaccine as she had covid in March - Advised to continue follow-up with PCP for routine health maintenance and malignancy screening Follow-up in 6 months with Steve and 12 months with . Thank you for allowing me to participate in the care of your patient. Scott Gold MD documented in this encounter [facility] 03-14-2025 Note HNO ID: [id number] Author: LARA REEDER, DO Service: ? Author Type: Physician Type: Progress Notes Filed: 03/24/2025 06:31 Note Text: Follow Up Visit Chief Complaint Sid is a 49-year-old female with a history of diabetes, presenting for right shoulder pain and left knee pain. Patient presents with: Right Shoulder - Established Patient, Pain Left Knee - Established Patient, Knee Pain History of Present Illness PAIN EVALUATION 03/12/2025 2151 03/14/2025 1004 03/14/2025 1006 Pain Level: 3 3 2 Pain Location: Knee-Left Shoulder-Right Knee-Left Description: Aching;Numbness;Pressure;Sore;Stab maria m;Stiffness;Tenderness;Tightnes s Aching Aching Duration Amount of Time: -- -- 6 ongoing Duration Units: Months -- Months Frequency: Intermittent Continuous Intermittent Intervention/Comfort measure: Medication;Reposition;Relaxation;C old;Heat;Massage;Positioning Medication;Reposition;Relaxation Medication;Reposition;Relaxation HPI: Sid Lezama is a 49 year old female for a follow up visit for her right shoulder and new left knee. Last seen for a surgery on 06/22/2021 for a right shoulder arthroscopy, manipulation under anesthesia, biceps tenotomy, subscap debridement, subacromial decompression/acromioplasty. She states she had and injury to her left knee as a child resulting in a mensicus repair. She began to have intermittent pain over the last 6 months. Is there any overall improvement in your condition? No Any new injury, since being seen last: No Right Shoulder Pain: - Underwent right shoulder surgery in June. - Reports improved ROM but persistent dull ache. - Frequent snapping, popping, and cracking sounds. - Engaging in physical therapy exercises to strengthen the shoulder. Left Knee Pain: - History of injury at age 11, resulting in stitches and subsequent arthroscopic surgery 1.5-2 years later. - Pain exacerbated by pressure when rising from a kneeling position, rated as 7/10. - Suspects hip erosion may be contributing to knee pain. Diabetes: - Previously managed with Ozempic for 3 years, resulting in 50 lb weight loss. - Discontinued Ozempic due to decreased appetite, leading to insufficient insulin production. - Currently on Zynbala and Basaglar. - Recent addition of Humalog before meals, x3 weeks, to manage high cortisol levels. REVIEW OF SYMPTOMS: Patient did not have, and does not currently have, any weight loss, malaise, fever, chills, headache, chest pain, chest pressure, palpitations, cough, shortness of breath, orthopnea, paroxsymal nocturnal dyspnea, nausea, vomiting, diarrhea, constipation, melena, hematochezia, urinary difficulties, prolonged bleeding, easily bruising, heat or cold intolerance, new onset joint pain or swelling, new onset extremity weakness or numbness, new onset auditory or visual disturbances, lightheadedness, dizziness, partial loss of consciousness or full loss of consciousness. Musculoskeletal: (+) right shoulder pain (snapping, popping, cracking), (+) left knee pain, (+) left hip pain, (-) groin pain Current Outpatient Medications Medication Sig insulin lispro (HUMALOG KWIKPEN) 100 unit/mL Inject 2 Units subcutaneously three times a day before meals. Plus sliding scale #2 If blood sugar is: Additional units < 150 0 151-200 2 201-250 4 251-300 6 301-350 8 > 350 18 units Max daily dose Insulin Lynch, Disposable, (PEN NEEDLE) 32 gauge x 5/32 Use to inject insulin up to 8 times per day. insulin glargine (LANTUS SOLOSTAR U-100 INSULIN) 100 unit/mL (3 mL) INJECT 40 UNITS UNDER THE SKIN EVERY evening Blood-Glucose Sensor (FREESTYLE GIANFRANCO 3 PLUS SENSOR) matilda Apply new sensor every fifteen (15) days to upper arm. ustekinumab (STELARA) 45 mg/0.5 mL syringe Inject 45 mg (1 syringe) subcutaneously every 12 weeks potassium citrate ER (UROCIT-K) 10 mEq (1,080 mg) Take 1 tablet by mouth two times a day. pantoprazole DR (PROTONIX) 20 mg tablet Take 1 tablet by mouth daily before breakfast. Take on empty stomach, 1/2 hr before meal. blood sugar diagnostic (ACCU-CHEK GUIDE TEST STRIPS) test strip USE WITH BLOOD GLUCOSE TEST THREE TIMES A DAY. Lancets (ACCU-CHEK FASTCLIX LANCET DRUM) Use as instructed to check blood glucose up to 2 times daily. E11.9 Lancing Device with Lancets ACCU CHEK FASTCLIX LANCET *DEVICE* use to check blood glucose up to 2 times per day as instructed. E11.9 GVOKE PFS 1-PACK SYRINGE 1 mg/0.2 mL syrg INJECT 0.2 ML UNDER THE SKIN NEEDED. clobetasol (TEMOVATE) 0.05 % ointment Apply to affected area two times a day. Face. Feet. Two weeks on and two weeks off, per [facility]. fexofenadine HCl (LELA ORAL) Take by mouth. levonorgestrel (MIRENA) 20 mcg/24 hours (8 yrs) 52 mg IUD 1 Each by INTRAUTERINE route as directed. oxyCODONE-acetaminophen (PERCOCET) 5-325 mg tablet TAKE 1 TABLET BY MOUTH 3 TIMES A DAY NEEDED FOR 28 DAYS vits62/FA/om3/ (more content not included)... [facility] 03-14-2025 History of Present illness Narrative Images from the original note were not included. Follow Up Visit Chief Complaint Sid is a 49-year-old female with a history of diabetes, presenting for right shoulder pain and left knee pain. Patient presents with: Right Shoulder - Established Patient, Pain Left Knee - Established Patient, Knee Pain History of Present Illness PAIN EVALUATION 03/12/2025 2151 03/14/2025 1004 03/14/2025 1006 Pain Level: 3 3 2 Pain Location: Knee-Left Shoulder-Right Knee-Left Description: Aching;Numbness;Pressure;Sore;Stab maria m;Stiffness;Tenderness;Tightnes s Aching Aching Duration Amount of Time: -- -- 6 ongoing Duration Units: Months -- Months Frequency: Intermittent Continuous Intermittent Intervention/Comfort measure: Medication;Reposition;Relaxation;C old;Heat;Massage;Positioning Medication;Reposition;Relaxation Medication;Reposition;Relaxation HPI: Sid Lezama is a 49 year old female for a follow up visit for her right shoulder and new left knee. Last seen for a surgery on 06/22/2021 for a right shoulder arthroscopy, manipulation under anesthesia, biceps tenotomy, subscap debridement, subacromial decompression/acromioplasty. She states she had and injury to her left knee as a child resulting in a mensicus repair. She began to have intermittent pain over the last 6 months. Is there any overall improvement in your condition? No Any new injury, since being seen last: No Right Shoulder Pain: - Underwent right shoulder surgery in June. - Reports improved ROM but persistent dull ache. - Frequent snapping, popping, and cracking sounds. - Engaging in physical therapy exercises to strengthen the shoulder. Left Knee Pain: - History of injury at age 11, resulting in stitches and subsequent arthroscopic surgery 1.5-2 years later. - Pain exacerbated by pressure when rising from a kneeling position, rated as 7/10. - Suspects hip erosion may be contributing to knee pain. Diabetes: - Previously managed with Ozempic for 3 years, resulting in 50 lb weight loss. - Discontinued Ozempic due to decreased appetite, leading to insufficient insulin production. - Currently on Zynbala and Basaglar. - Recent addition of Humalog before meals, x3 weeks, to manage high cortisol levels. REVIEW OF SYMPTOMS: Patient did not have, and does not currently have, any weight loss, malaise, fever, chills, headache, chest pain, chest pressure, palpitations, cough, shortness of breath, orthopnea, paroxsymal nocturnal dyspnea, nausea, vomiting, diarrhea, constipation, melena, hematochezia, urinary difficulties, prolonged bleeding, easily bruising, heat or cold intolerance, new onset joint pain or swelling, new onset extremity weakness or numbness, new onset auditory or visual disturbances, lightheadedness, dizziness, partial loss of consciousness or full loss of consciousness. Musculoskeletal: (+) right shoulder pain (snapping, popping, cracking), (+) left knee pain, (+) left hip pain, (-) groin pain Current Outpatient Medications Medication Sig insulin lispro (HUMALOG KWIKPEN) 100 unit/mL Inject 2 Units subcutaneously three times a day before meals. Plus sliding scale #2 If blood sugar is: Additional units < 150 0 151-200 2 201-250 4 251-300 6 301-350 8 > 350 18 units Max daily dose Insulin Lynch, Disposable, (PEN NEEDLE) 32 gauge x 5/32 Use to inject insulin up to 8 times per day. insulin glargine (LANTUS SOLOSTAR U-100 INSULIN) 100 unit/mL (3 mL) INJECT 40 UNITS UNDER THE SKIN EVERY evening Blood-Glucose Sensor (FREESTYLE GIANFRANCO 3 PLUS SENSOR) matilda Apply new sensor every fifteen (15) days to upper arm. ustekinumab (STELARA) 45 mg/0.5 mL syringe Inject 45 mg (1 syringe) subcutaneously every 12 weeks potassium citrate ER (UROCIT-K) 10 mEq (1,080 mg) Take 1 tablet by mouth two times a day. pantoprazole DR (PROTONIX) 20 mg tablet Take 1 tablet by mouth daily before breakfast. Take on empty stomach, 1/2 hr before meal. blood sugar diagnostic (ACCU-CHEK GUIDE TEST STRIPS) test strip USE WITH BLOOD GLUCOSE TEST THREE TIMES A DAY. Lancets (ACCU-CHEK FASTCLIX LANCET DRUM) Use as instructed to check blood glucose up to 2 times daily. E11.9 Lancing Device with Lancets ACCU CHEK FASTCLIX LANCET *DEVICE* use to check blood glucose up to 2 times per day as instructed. E11.9 GVOKE PFS 1-PACK SYRINGE 1 mg/0.2 mL syrg INJECT 0.2 ML UNDER THE SKIN NEEDED. clobetasol (TEMOVATE) 0.05 % ointment Apply to affected area two times a day. Face. Feet. Two weeks on and two weeks off, per [facility]. fexofenadine HCl (LELA ORAL) Take by mouth. levonorgestrel (MIRENA) 20 mcg/24 hours (8 yrs) 52 mg IUD 1 Each by INTRAUTERINE route as directed. oxyCODONE-acetaminophen (PERCOCET) 5-325 mg tablet TAKE 1 TABLET BY MOUTH 3 TIMES A DAY NEEDED FOR 28 DAYS vits62/FA/om3/dha/epa ( GUMMY ORAL) Take 2 Doses by mouth once daily. Blood-Glucose Meter (ACCU-CHEK DIANNE) Test blood sugar(s) 2 times daily. Dx: Type 2 DM - Controlled E11.9 Insulin: No, Accu-check brand covered by insurance Ascorbic Acid 500 mg chew Take 1,000 mg by mouth once daily. With rosehips elderberry fruit (ELDERBERRY ORAL) Take by mouth. COMPOUNDED PRESCRIPTION 1. V44.2 Ileostomy status (HCC) (primary diagnosis) 2. 555.1 Regional enteritis of large intestine (HCC) Ileostomy Supplies. 1. Pouches, 2. Planges, 3. Felipe seals, 4. Stoma adhesive, 5. Stoma powder, 6. Skin preps, 7. Adhesive remover wipes. Dispense 1 year supplies. tiZANidine (ZANAFLEX) 4 mg tablet Take by mouth. . Takes 1 tablet at bedtime. No current facility-administered medications for this visit. Physical Exam Vitals: [facility] 07/25/2018 Psych: Pleasant, good affect and mood General Appearance: Well appearing, alert, in no acute distress, well-hydrated, well nourished.. Skin: Skin color, texture, turgor normal, no suspicious rashes or lesions. Peripheral Pulses: Normal. Neurologic: Gait normal. Reflexes normal and symmetric. Sensation grossly intact.. Lymph Nodes: No cervical lymphadenopathy, No supraclavicular lymphadenopathy, No axillary lymphadenopathy., and No inguinal lymphadenopathy.. Respiratory: No recent pulmonary infection, hemoptysis, chronic cough, or shortness of breath at rest Rheumatologic: Joint deformities: multiple joint complaints Ortho Exam Assessment and Plan Radiographs: I have independently reviewed films and my findings are the same. and I have reviewed the images with the patient and family. Labs: (No diagnostics) Tests: (No diagnostics) Imaging: - Right Shoulder X-ray: Mild degenerative changes - Knee X-ray: No significant abnormalities Last XR Hip/Pelvis - Impression Only XR HIP GENERAL 3V PELV/AP/LAT LEFT Exam End: 03/14/2025 10:49 AM (Final result) Impression: IMPRESSION: No acute abnormality. Mild degenerative changes Profile Saw Operator: SANTOS Transcribe Date/Time: Mar 19 2025 7:17A Dictated by : RANDAL SMITH MD ... Last XR Knee - Impression Only XR KNEE GENERAL 4V AP BOTH/PA BOTH/LAT/MERC LEFT Exam End: 03/14/2025 9:52 AM (Final result) Impression: IMPRESSION: No acute abnormality. Mild degenerative changes Profile Saw Operator: PSCB Transcribe Date/Time: Mar 19 2025 7:17A Dictated by : RANDAL SMITH MD ... Impression: 1. Pain in left hip (M25.552) 2. Primary osteoarthritis of left hip (M16.12) - Suspected labral tear or arthritis contributing to left hip pain. - Ordered X-rays of the left hip to evaluate for structural abnormalities. 3. Bursitis of right shoulder (M75.51) - Exam reveals crepitus and limited rotator cuff function; improved range of motion since previous intervention. - Discussed that biceps tendon is not contributing to current symptoms. - Continue physical therapy exercises to strengthen the rotator cuff. - Monitor for any worsening symptoms or decreased function. Hip xRAYS DONE- HIP OA Pt CAN'T DO WATER BC OF ILEOSTOMY Today, in detail, through a thorough evaluation, we discussed possible etiologies of pain and our plans for further diagnostic and therapeutic interventions. We discussed strategies for decreasing pain and improving strength, stability and motion. Patient's questions were answered in detailed. Patient verbalizes understanding and agrees with the treatment plan as discussed. Recording using Gingr software for draft documentation of the visit was discussed with the patient/authorized printing sales representative; all questions welcomed and answered. Patient/authorized printing sales representative agreed to proceed Lara Reeder D.O. M.P.H. documented in this encounter [facility] 03-14-2025 History of Present illness Narrative Radiology Service Progress Note PATIENT NAME: Sid Lezama DATE OF SERVICE: March 14, 2025 TIME: 10:00 AM PATIENT IDENTITY VERIFICATION COMPLETED USING TWO (2) IDENTIFIERS: Name and Date of confirmed by patient verbally. FALL SCREENING: Has the patient had 2 falls in the last year or 1 fall with injury or currently using an Ambulatory Assistive Device (Walker, Cane, Wheelchair, Crutches, etc.)? No PATIENT GENDER DATA: Assigned female at . status: : No status: NO. PATIENT RELEVANT IMPLANT DATA REVIEWED: Not Applicable PATIENT PRESENTS WITH AN IMPLANTABLE OR ATTACHED SODA JERKER: No RADIOLOGY DEPARTMENT: General X-ray: Exam(s) Completed: Lower Extremity X-Ray(s): Knee, AP / Lat / Tunne / Merchant Left and Wt. Bearing Upper Extremity X-Ray(s): Shoulder, AP / TRUE AP / AXILLARY right PERIPHERAL IV DATA: Not applicable SIGNED BY: Ceasar Mcintyre March 14, 2025 10:00 AM Radiology Service Progress Note PATIENT NAME: Sid Lezama DATE OF SERVICE: March 14, 2025 TIME: 10:50 AM PATIENT IDENTITY VERIFICATION COMPLETED USING TWO (2) IDENTIFIERS: Name and Date of confirmed by patient verbally. FALL SCREENING: Has the patient had 2 falls in the last year or 1 fall with injury or currently using an Ambulatory Assistive Device (Walker, Cane, Wheelchair, Crutches, etc.)? No PATIENT GENDER DATA: Assigned female at . status: : No status: NO. PATIENT RELEVANT IMPLANT DATA REVIEWED: Not Applicable PATIENT PRESENTS WITH AN IMPLANTABLE OR ATTACHED SODA JERKER: No RADIOLOGY DEPARTMENT: General X-ray: Exam(s) Completed: Pelvis X-Ray: Pelvis with Hip Left and Wt. Bearing PERIPHERAL IV DATA: Not applicable SIGNED BY: Ceasar Mcintyre March 14, 2025 10:50 AM documented in this encounter [facility] 03-14-2025 Note HNO ID: [id number] Author: ALBINA SÁNCHEZ Tech Service: Radiology Author Type: Feeder Operator Type: Progress Notes Filed: 03/14/2025 10:00 Note Text: Radiology Service Progress Note PATIENT NAME: Sid Lezama DATE OF SERVICE: March 14, 2025 TIME: 10:00 AM PATIENT IDENTITY VERIFICATION COMPLETED USING TWO (2) IDENTIFIERS: Name and Date of confirmed by patient verbally. FALL SCREENING: Has the patient had 2 falls in the last year or 1 fall with injury or currently using an Ambulatory Assistive Device (Walker, Cane, Wheelchair, Crutches, etc.)? No PATIENT GENDER DATA: Assigned female at . status: : No status: NO. PATIENT RELEVANT IMPLANT DATA REVIEWED: Not Applicable PATIENT PRESENTS WITH AN IMPLANTABLE OR ATTACHED SODA JERKER: No RADIOLOGY DEPARTMENT: General X-ray: Exam(s) Completed: Lower Extremity X-Ray(s): Knee, AP / Lat / Tunne / Merchant Left and Wt. Bearing Upper Extremity X-Ray(s): Shoulder, AP / TRUE AP / AXILLARY right PERIPHERAL IV DATA: Not applicable SIGNED BY: Ceasar Mcintyre March 14, 2025 10:00 AM [facility] 03-14-2025 Note HNO ID: [id number] Author: ALBINA SÁNCHEZ Tech Service: Radiology Author Type: Feeder Operator Type: Progress Notes Filed: 03/14/2025 10:50 Note Text: Radiology Service Progress Note PATIENT NAME: Sid Lezama DATE OF SERVICE: March 14, 2025 TIME: 10:50 AM PATIENT IDENTITY VERIFICATION COMPLETED USING TWO (2) IDENTIFIERS: Name and Date of confirmed by patient verbally. FALL SCREENING: Has the patient had 2 falls in the last year or 1 fall with injury or currently using an Ambulatory Assistive Device (Walker, Cane, Wheelchair, Crutches, etc.)? No PATIENT GENDER DATA: Assigned female at . status: : No status: NO. PATIENT RELEVANT IMPLANT DATA REVIEWED: Not Applicable PATIENT PRESENTS WITH AN IMPLANTABLE OR ATTACHED SODA JERKER: No RADIOLOGY DEPARTMENT: General X-ray: Exam(s) Completed: Pelvis X-Ray: Pelvis with Hip Left and Wt. Bearing PERIPHERAL IV DATA: Not applicable SIGNED BY: Ceasar Mcintyre March 14, 2025 10:50 AM [facility] 03-03-2025 Note HNO ID: [id number] Author: LORETA GILLIAM RN Service: ? Author Type: Registered Nurse Type: Progress Notes Filed: 03/03/2025 12:10 Note Text: Value Based Care Coordination Chart Review Provider Action / FYI: Pt Declined Upon review of patient chart, the patient is excluded from Chronic Disease Management Patient is not a candidate for CDM at this time and placed in the following status: Deferred Action taken: No action needed . Loreta Gilliam RN March 03, 2025 12:09 PM [facility] 03-03-2025 History of Present illness Narrative Value Based Care Coordination Chart Review Provider Action / FYI: Pt Declined Upon review of patient chart, the patient is excluded from Chronic Disease Management Patient is not a candidate for CDM at this time and placed in the following status: Deferred Action taken: No action needed . Loreta Gilliam RN March 03, 2025 12:09 PM documented in this encounter [facility] 03-03-2025 Note Patient Outreach ([facility]) SID LEZAMA ([id number]) 1975 F Date Time Provider Department 03/03/25 LORETA GILLIAM [facility] [place] [facility] During your visit today, we recorded the following information about you: Loreta Gilliam RN 03/03/2025 12:10 PM Signed Value Based Care Coordination Chart Review Provider Action / FYI: Pt Declined Upon review of patient chart, the patient is excluded from Chronic Disease Management Patient is not a candidate for CDM at this time and placed in the following status: Deferred Action taken: No action needed . 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 Plus sliding scale #2 If blood sugar is: Additional units < 150 0 151-200 2 201-250 4 251-300 6 301-350 8 > 350 18 units Max daily dose - Insulin Lynch, Disposable, (PEN NEEDLE) 32 gauge x 5/32 Use to inject insulin up to 8 times per day. - insulin glargine (LANTUS SOLOSTAR U-100 INSULIN) 100 unit/mL (3 mL) INJECT 40 UNITS UNDER THE SKIN EVERY evening - Blood-Glucose Sensor (FREESTYLE GIANFRANCO 3 PLUS SENSOR) matilda Apply new sensor every fifteen (15) days to upper arm. - ustekinumab (STELARA) 45 mg/0.5 mL syringe Inject 45 mg (1 syringe) subcutaneously every 12 weeks - potassium citrate ER (UROCIT-K) 10 mEq (1,080 mg) Take 1 tablet by mouth two times a day. - pantoprazole DR (PROTONIX) 20 mg tablet Take 1 tablet by mouth daily before breakfast. Take on empty stomach, 1/2 hr before meal. - blood sugar diagnostic (ACCU-CHEK GUIDE TEST STRIPS) test strip USE WITH BLOOD GLUCOSE TEST THREE TIMES A DAY. - Lancets (ACCU-CHEK FASTCLIX LANCET DRUM) Use as instructed to check blood glucose up to 2 times daily. E11.9 - Lancing Device with Lancets ACCU CHEK FASTCLIX LANCET *DEVICE* use to check blood glucose up to 2 times per day as instructed. E11.9 - GVOKE PFS 1-PACK SYRINGE 1 mg/0.2 mL syrg INJECT 0.2 ML UNDER THE SKIN NEEDED. - clobetasol (TEMOVATE) 0.05 % ointment Apply to affected area two times a day. Face. Feet. Two weeks on and two weeks off, per [facility]. - fexofenadine HCl (LELA ORAL) Take by mouth. - levonorgestrel (MIRENA) 20 mcg/24 hours (8 yrs) 52 mg IUD 1 Each by INTRAUTERINE route as directed. - oxyCODONE-acetaminophen (PERCOCET) 5-325 mg tablet TAKE 1 TABLET BY MOUTH 3 TIMES A DAY NEEDED FOR 28 DAYS - vits62/FA/om3/dha/epa ( GUMMY ORAL) Take 2 Doses by mouth once daily. - Blood-Glucose Meter (ACCU-CHEK DIANNE) Test blood sugar(s) 2 times daily. Dx: Type 2 DM - Controlled E11.9 Insulin: No, Accu-check brand covered by insurance - Ascorbic Acid 500 mg chew Take 1,000 mg by mouth once daily. With rosehips - elderberry fruit (ELDERBERRY ORAL) Take by mouth. - COMPOUNDED PRESCRIPTION 1. V44.2 Ileostomy status (HCC) (primary diagnosis) 2. 555.1 Regional enteritis of large intestine (HCC) Ileostomy Supplies. 1. Pouches, 2. Planges, 3. Felipe seals, 4. Stoma adhesive, 5. Stoma powder, 6. Skin preps, 7. Adhesive remover wipes. Dispense 1 year supplies. - tiZANidine (ZANAFLEX) 4 mg tablet Take by mouth. . Takes 1 tablet at bedtime. Problem List As Of Date 03/03/2025 Noted Resolved REG ENTERITIS, LG INTEST [K50.10] 08/07/2006 Retention of urine, unspecified [R33.9] 01/01/2007 11/27/2018 Mixed hyperlipidemia [E78.2] 01/10/2007 Anemia, unspecified [D64.9] 01/10/2007 03/08/2012 Nonspecific abnormal results of liver function *08/24/2007 04/19/2011 Onychia and paronychia of toe [L03.039] 09/26/2007 02/18/2013 ILEOSTOMY STATUS [Z93.2] 09/28/2007 IMPAIRED GLUCOSE JUNE TEST [R73.09] 01/31/2008 04/16/2008 Type 2 diabetes mellitus treated with insulin (*02/12/2008 Fibromyalgia [M79.7] 05/05/2008 Non-alcoholic fatty liver disease [K76.0] 08/24/2007 Mild dysplasia of cervix [N87.0] 10/27/2009 03/08/2012 Fibromyalgia [M79.7] 04/19/2011 Depression [F32.A] 08/30/2010 11/27/2018 Eczematous dermatitis: hands [L30.9] 11/23/2010 02/18/2013 Xerosis cutis [L85.3] 11/23/2010 02/18/2013 Atopic e (more content not included)... [facility] 02-25-2025 Note HNO ID: [id number] Author: SYD MONAE RD Service: ? Author Type: Registered Dietitian Type: Progress Notes Filed: 02/25/2025 11:18 Note Text: DIABETES SELF-MANAGEMENT EDUCATION AND SUPPORT Location: [place] Type of visit: Virtual (with video) individual I have communicated my name and active licensure. The patient's identity and physical location were verified at the time of this visit. Either the patient or their legal printing sales representative has been informed of the risks and benefits of -- and alternatives to -- treatment through a remote evaluation and consents to proceed with the evaluation remotely. Types of DSMES: Initial/Comprehensive (add to or update ADA spreadsheet) PATIENT'S MAIN CONCERN TODAY: DM Education Short acting insulin education Support person present for education today: none Cognitive ability: Alert and oriented Motivation to learn: Interested Learning barriers identified by educator: none Method of instruction: written and verbal INTERVENTIONS/TOPICS COVERED: -Diabetes Pathophysiology: diabetes disease process, role of insulin in the body, role of glucose in the body, insulin resistance, relationship of glucose and insulin in the body, hepatic glucose release, and symptoms of diabetes -Monitoring: A1c meaning and target <7%, BG targets, CGM basics AND daily use, and pvxg-oh-ukwnc (TIR) -Healthy Eating: impact of carbs on BG, Plate Method, basic carb counting, foods with carbs, portion sizes, fiber, reading food labels, recommendation for 30-45 g carb per meal, and carb counting tools (books, Internet, smartphone apps) -Medications: medication safety/timing, medication side effects, reviewed home DM meds, taught new DM meds as noted, prandial insulin, prebolusing, stacking insulin and how to prevent it, and injectable insulin discussed: lispro (Humalog) -Acute Complications: hypoglycemia s/sx/tx, hyperglycemia s/sx/tx, and pattern management -Chronic Complications: importance of BG control to reduce risks DIABETES ASSESSMENT: Patient is also on steroid medication, received last week. Typically elevates sugars for about 10 days per patient. Uses Anes[employer] on watch for calorie tracking, was unsure how to take calories and convert them to carbohydrates. Advised patient that she would review food labels, more comprehensive nutrition apps, etc for specific carbohydrate content of food rather than estimating carb content based on calories. Pt also has Crohn's with an ileostomy, has to monitor fiber intake and avoid raw veggies d/t constipation and GI discomfort. She is also coming off Ozempic (was on it for 3 years previously) and she was using Lantus during that time. Previously, she stated blood sugars were controlled, but her appetite was very low. Pt stated that she struggled to consume more than protein shakes most days. Due to lack of appetite, Ozempic was stopped and short acting insulin was added to replace. She is currently taking Lantus 40 units at night, Humalog with meals. Patient taking 2 units 30 minutes prior to eating plus SS #2. Patient reported she can be >400 at times and struggle to bring down blood sugars which can, in part, be due to steroid injections she receives. Spoke with Alie Stallworth LOG BRANDER following visit. Per LORI, patient should aim for 15 minutes prior to meals for insulin dose. Also discussed correction dosing and SQL ANALYST would prefer to hold off for now until around 2 weeks of data can be reviewed and evaluated for any necessary changes or adding corrective doses. Referring Physician: Alie Stallworth CNP Previous Diabetes Education? Yes, if so when? Years ago What are you hoping to gain from this visit? Learn more about Humalog dosing and carb counting Diabetes History: Type of Diabetes: Type 2 What year were you diagnosed? 2006 Demographics: Race/Ethnic Origin: White/ Does your culture or amish require any of the following: No cultural/anabaptism practices affecting DM Do you have problems with: No difficulty seeing/hearing/reading/writing/spe aking Occupation: retired Support System: How often does someone help you read hospital materials? never How often does someone help you read your pill bottles? never How often does someone have to help you take care of your diabetes? never Health History: Do you use tobacco? Quit, How long ago? 2006 Do you use alcohol? No In the past 12 months have you had any: Hospital Admissions: Yes, Number of Times? 1 ER Visits: Yes, Number of Times? 3 Primary Care Visits: Yes, Number of Times? 2 What are your general feelings about you overall health? 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 [facility] 02-25-2025 History of Present illness Narrative Images from the original note were not included. DIABETES SELF-MANAGEMENT EDUCATION AND SUPPORT Location: [place] Type of visit: Virtual (with video) individual I have communicated my name and active licensure. The patient's identity and physical location were verified at the time of this visit. Either the patient or their legal printing sales representative has been informed of the risks and benefits of -- and alternatives to -- treatment through a remote evaluation and consents to proceed with the evaluation remotely. Types of DSMES: Initial/Comprehensive (add to or update ADA spreadsheet) PATIENT'S MAIN CONCERN TODAY: DM Education Short acting insulin education Support person present for education today: none Cognitive ability: Alert and oriented Motivation to learn: Interested Learning barriers identified by educator: none Method of instruction: written and verbal INTERVENTIONS/TOPICS COVERED: -Diabetes Pathophysiology: diabetes disease process, role of insulin in the body, role of glucose in the body, insulin resistance, relationship of glucose and insulin in the body, hepatic glucose release, and symptoms of diabetes -Monitoring: A1c meaning and target <7%, BG targets, CGM basics & daily use, and tcaw-rt-dsmix (TIR) -Healthy Eating: impact of carbs on BG, Plate Method, basic carb counting, foods with carbs, portion sizes, fiber, reading food labels, recommendation for 30-45 g carb per meal, and carb counting tools (books, Internet, smartphone apps) -Medications: medication safety/timing, medication side effects, reviewed home DM meds, taught new DM meds as noted, prandial insulin, prebolusing, stacking insulin and how to prevent it, and injectable insulin discussed: lispro (Humalog) -Acute Complications: hypoglycemia s/sx/tx, hyperglycemia s/sx/tx, and pattern management -Chronic Complications: importance of BG control to reduce risks DIABETES ASSESSMENT: Patient is also on steroid medication, received last week. Typically elevates sugars for about 10 days per patient. Uses Anes[employer] on watch for calorie tracking, was unsure how to take calories and convert them to carbohydrates. Advised patient that she would review food labels, more comprehensive nutrition apps, etc for specific carbohydrate content of food rather than estimating carb content based on calories. Pt also has Crohn's with an ileostomy, has to monitor fiber intake and avoid raw veggies d/t constipation and GI discomfort. She is also coming off Ozempic (was on it for 3 years previously) and she was using Lantus during that time. Previously, she stated blood sugars were controlled, but her appetite was very low. Pt stated that she struggled to consume more than protein shakes most days. Due to lack of appetite, Ozempic was stopped and short acting insulin was added to replace. She is currently taking Lantus 40 units at night, Humalog with meals. Patient taking 2 units 30 minutes prior to eating plus SS #2. Patient reported she can be >400 at times and struggle to bring down blood sugars which can, in part, be due to steroid injections she receives. Spoke with Alie Stallworth NP following visit. Per SQL ANALYST, patient should aim for 15 minutes prior to meals for insulin dose. Also discussed correction dosing and SQL ANALYST would prefer to hold off for now until around 2 weeks of data can be reviewed and evaluated for any necessary changes or adding corrective doses. Referring Physician: Alie Stallworth CNP Previous Diabetes Education? Yes, if so when? Years ago What are you hoping to gain from this visit? Learn more about Humalog dosing and carb counting Diabetes History: Type of Diabetes: Type 2 What year were you diagnosed? 2006 Demographics: Race/Ethnic Origin: White/ Does your culture or amish require any of the following: No cultural/anabaptism practices affecting DM Do you have problems with: No difficulty seeing/hearing/reading/writing/spe aking Occupation: retired Support System: How often does someone help you read hospital materials? never How often does someone help you read your pill bottles? never How often does someone have to help you take care of your diabetes? never Health History: Do you use tobacco? Quit, How long ago? 2006 Do you use alcohol? No In the past 12 months have you had any: Hospital Admissions: Yes, Number of Times? 1 ER Visits: Yes, Number of Times? 3 Primary Care Visits: Yes, Number of Times? 2 What are your general feelings about you overall health? 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 Lumbago 01/10/2007 Myalgia and myositis, unspecified Pain management Dr Stern Nonalcoholic fatty liver disease 08/24/2007 Other and unspecified hyperlipidemia 01/10/2007 PMH - PAST MEDICAL HISTORY OF Cx scarred to post vag wall/difficult exam Pneumonia, organism unspecified(486) 01/10/2007 Regional enteritis of large intestine (HCC) 08/07/2006 Retention of urine, unspecified 01/01/2007 Rheumatoid arthritis(714.0) Dr. Mc, [facility] Type II or unspecified type diabetes mellitus without mention of complication, not stated as uncontrolled Ureterolithiasis 07/18/2019 Most recent A1C Lab Results Component Value Date HBA1C 8.4 12/18/2024 HBA1C 7.0 05/20/2024 HBA1C 6.5 02/16/2024 HBA1C 7.8 11/14/2023 HBA1C 7.6 05/18/2021 HBA1C 6.7 01/18/2021 HBA1C 7.2 07/24/2020 Physical Activity: Do you do a regular exercise? - Gets between 5,000-12,000 steps per day - Has animals and 3 acres [address] land to maintain Current Outpatient Medications Medication Sig insulin lispro (HUMALOG KWIKPEN) 100 unit/mL Inject 2 Units subcutaneously three times a day before meals. Plus sliding scale #2 If blood sugar is: Additional units < 150 0 151-200 2 201-250 4 251-300 6 301-350 8 > 350 18 units Max daily dose Insulin Lynch, Disposable, (PEN NEEDLE) 32 gauge x 5/32 Use to inject insulin up to 8 times per day. insulin glargine (LANTUS SOLOSTAR U-100 INSULIN) 100 unit/mL (3 mL) INJECT 40 UNITS UNDER THE SKIN EVERY evening Blood-Glucose Sensor (FREESTYLE GIANFRANCO 3 PLUS SENSOR) matilda Apply new sensor every fifteen (15) days to upper arm. ustekinumab (STELARA) 45 mg/0.5 mL syringe Inject 45 mg (1 syringe) subcutaneously every 12 weeks potassium citrate ER (UROCIT-K) 10 mEq (1,080 mg) Take 1 tablet by mouth two times a day. pantoprazole DR (PROTONIX) 20 mg tablet Take 1 tablet by mouth daily before breakfast. Take on empty stomach, 1/2 hr before meal. blood sugar diagnostic (ACCU-CHEK GUIDE TEST STRIPS) test strip USE WITH BLOOD GLUCOSE TEST THREE TIMES A DAY. Lancets (ACCU-CHEK FASTCLIX LANCET DRUM) Use as instructed to check blood glucose up to 2 times daily. E11.9 Lancing Device with Lancets ACCU CHEK FASTCLIX LANCET *DEVICE* use to check blood glucose up to 2 times per day as instructed. E11.9 GVOKE PFS 1-PACK SYRINGE 1 mg/0.2 mL syrg INJECT 0.2 ML UNDER THE SKIN NEEDED. clobetasol (TEMOVATE) 0.05 % ointment Apply to affected area two times a day. Face. Feet. Two weeks on and two weeks off, per [facility] Dermatology. fexofenadine HCl (LELA ORAL) Take by mouth. levonorgestrel (MIRENA) 20 mcg/24 hours (8 yrs) 52 mg IUD 1 Each by INTRAUTERINE route as directed. oxyCODONE-acetaminophen (PERCOCET) 5-325 mg tablet TAKE 1 TABLET BY MOUTH 3 TIMES A DAY NEEDED FOR 28 DAYS vits62/FA/om3/dha/epa ( GUMMY ORAL) Take 2 Doses by mouth once daily. Blood-Glucose Meter (ACCU-CHEK DIANNE) Test blood sugar(s) 2 times daily. Dx: Type 2 DM - Controlled E11.9 Insulin: No, Accu-check brand covered by insurance Ascorbic Acid 500 mg chew Take 1,000 mg by mouth once daily. With rosehips elderberry fruit (ELDERBERRY ORAL) Take by mouth. COMPOUNDED PRESCRIPTION 1. V44.2 Ileostomy status (HCC) (primary diagnosis) 2. 555.1 Regional enteritis of large intestine (HCC) Ileostomy Supplies. 1. Pouches, 2. Planges, 3. Felipe seals, 4. Stoma adhesive, 5. Stoma powder, 6. Skin preps, 7. Adhesive remover wipes. Dispense 1 year supplies. tiZANidine (ZANAFLEX) 4 mg tablet Take by mouth. . Takes 1 tablet at bedtime. No current facility-administered medications for this visit. Injections Technique: Do you take insulin or a medication you inject for your diabetes? Yes;then if so answer the following questions: How do you inject your medicine Pen Where are your injections done? Stomach/abdomen Who prepares your syringes, pen, or pump infusion set? Self Who gives you injections or changes your pump sites? Me Glucose Monitoring: Device: CGM (type: Gianfranco 3+) Checking frequency: continuous (using CGM) Checking times: continuous (using CGM) How are glucose levels shared with diabetes provider? device is linked to provider's office Management of Low Blood Sugar: What has been your lowest blood sugar in the last month? 78 What are your symptoms of lows?Shaky, Sweaty, and Dizzy/lightheaded How do you treat lows? Snickers or lunch meat and cheese Do you drive? yes If you are on a pump or MDI, do you have a prescription for Glucagon? yes Management of High Blood Sugar: What has been you highest blood sugar in the last month? >400 How do you treat your highs? Recently started short acting insulin Meal Planning: Are you currently following any meal plan? Low carb, wants to learn carb counting Who does the cooking in your house? Self and Spouse Who does the grocery shopping? Self and Spouse How many meals do you eat per day? Three Which meals do you tend to skip? None Beverages: water EDUCATION HANDOUTS: Healthy You: Survival Skills and Healthy You: Planning Healthy Meals LEARNING RESPONSE: Diabetes pathophysiology: Demonstrated understanding/competency today or at previous visit Healthy eating: Needs further instruction/review Being active: Needs further instruction/review Taking medications: Needs further instruction/review Monitoring glucose: Demonstrated understanding/competency today or at previous visit Acute complications: Needs further instruction/review Chronic complications: Needs further instruction/review Healthy coping: Needs further instruction/review Diabetes distress and support: Needs further instruction/review PATIENT SELECTED THE FOLLOWING GOALS: -Healthy eating goal: follow a meal plan 3: I have a plan to start -Medication goal: take my medications on time 3: I have a plan to start and take the right dose of my medications 3: I have a plan to start POSSIBLE FUTURE TOPICS: 1. The following topics were not assessed due to time limitations, but should be assessed at the next visit: support system, physical activity, sick days, and sleep. 2. The following topics should be taught or reinforced at the next visit: healthy eating , taking medications, acute complications, chronic complications, healthy coping, and diabetes distress and support. DIABETES EDUCATION PLAN: Individual follow-up Time Spent (Minutes): 60 This visit note will be communicated to the healthcare provider via access to shared medical record. This visit is no charge as [facility] office [facility] SIGNATURE: Syd Monae RD PATIENT NAME: Sid Lezama DATE: February 25, 2025 TIME: 8:03 AM PAGER: documented in this encounter [facility] 02-24-2025 Telephone encounter Note Patient returning call to the office Patient verified by name and . Patient states the humalog came in the mail last week but I do not know how to calculate out my carbs for meals RN reviewed medication regimen with the patient: Lantus 40 units every evening Humalog 2 units before meals plus Sliding scale #2 Sliding Scale Insulin Dosing Sliding Scale 2 (2 unit for every 50 mg/dL > 150 mg/dL) SUPPLEMENTAL INSULIN If Blood Glucose (mg/dL) is < 150 Give 0 units 151-200 Give 2 unit 201-250 Give 4 units 251-300 Give 6 units 301-350 Give 8 units 351-400 Give 10 units >400 Give 12 units, call physician if blood glucose does not improve. Patient states my sugar was 138 before eating. I took 8 units with lunch at 12:33 PM. I take my insulin 30 minutes before I eat. Now my sugar is 329 RN asked patient for 24 hour food diary: Patient reportss the following: Breakfast: 2 cups of coffee with allulouce at sweetener and cream Snack: snickers (patient states my sugar was going down Lunch: turkey lunch meat, 2 cookies Patient states: I had my steroid injection last . I get them every 3 months RN informed patient she would reach out to provider to see if she wants to add a sliding scale during period of steroid injections to aid in glycemic control. Patient denies symptoms of hyperglycemia at this time. Patient states I need a lot of education and help Patient scheduled with Syd Monae RD for 02/25/25 at 0800 Do you want to make any changes to medication regimen? Please advise. GUILLERMINA Dang RN [facility] 02-24-2025 Miscellaneous Notes Patient returning call to the office Patient verified by name and . Patient states the humalog came in the mail last week but I do not know how to calculate out my carbs for meals RN reviewed medication regimen with the patient: Lantus 40 units every evening Humalog 2 units before meals plus Sliding scale #2 Sliding Scale Insulin Dosing Sliding Scale 2 (2 unit for every 50 mg/dL > 150 mg/dL) SUPPLEMENTAL INSULIN If Blood Glucose (mg/dL) is < 150 Give 0 units 151-200 Give 2 unit 201-250 Give 4 units 251-300 Give 6 units 301-350 Give 8 units 351-400 Give 10 units >400 Give 12 units, call physician if blood glucose does not improve. Patient states my sugar was 138 before eating. I took 8 units with lunch at 12:33 PM. I take my insulin 30 minutes before I eat. Now my sugar is 329 RN asked patient for 24 hour food diary: Patient reportss the following: Breakfast: 2 cups of coffee with allulouce at sweetener and cream Snack: snickers (patient states my sugar was going down Lunch: turkey lunch meat, 2 cookies Patient states: I had my steroid injection last . I get them every 3 months RN informed patient she would reach out to provider to see if she wants to add a sliding scale during period of steroid injections to aid in glycemic control. Patient denies symptoms of hyperglycemia at this time. Patient states I need a lot of education and help Patient scheduled with Syd Monae RD for 02/25/25 at 0800 Do you want to make any changes to medication regimen? Please advise. GUILLERMINA Dang RN Images from the original note were not included. Returned patient's call regarding blood sugar levels No answer, left message ONUR: 02/13/25 If patient calls back please direct to nursing staff: RN's Triage the following: -Please obtain 24 hour food/drink diary -medication regimen -experiencing symptoms of hyperglycemia?? CGM data found below: Aminata Roberson RN What are your current sugar levels? 476 How many days have your sugar levels been this high or low? 4 weeks What symptoms are you having? no Last encounter Visit on 02/13/2025 (with Alie Stallworth) Cici Chen Chief Service Observer II Endocrinology & Metabolism [place] F20-X documented in this encounter [facility] 02-24-2025 Telephone encounter Note Images from the original note were not included. Returned patient's call regarding blood sugar levels No answer, left message ONUR: 02/13/25 If patient calls back please direct to nursing staff: RN's Triage the following: -Please obtain 24 hour food/drink diary -medication regimen -experiencing symptoms of hyperglycemia?? CGM data found below: Aminata Roberson RN [facility] 02-21-2025 Telephone encounter Note What are your current sugar levels? 476 How many days have your sugar levels been this high or low? 4 weeks What symptoms are you having? no Last encounter Visit on 02/13/2025 (with Alie Stallworth) Cici Chen Chief Service Observer Endocrinology & Metabolism [place] F20-X [facility] 02-17-2025 History of Present illness Narrative Primary Care Pharmacy Panel Management This patient has been identified through Specialty Integration/Value-Based Operations Diabetes Registry Review by the primary care pharmacy team. After review, determined that the patient is not a candidate for pharmacy referral at this time due to follows closely with Endo. Tiff Victoria RPh documented in this encounter [facility] 02-17-2025 Note HNO ID: [id number] Author: TIFF VICTORIA RPh Service: ? Author Type: Pharmacist Type: Progress Notes Filed: 02/17/2025 15:33 Note Text: Primary Care Pharmacy Panel Management This patient has been identified through Specialty Integration/Value-Based Operations Diabetes Registry Review by the primary care pharmacy team. After review, determined that the patient is not a candidate for pharmacy referral at this time due to follows closely with Endo. Tiff Victoria RPh [facility] 02-17-2025 Telephone encounter Note Patient called her pharmacy said they do not understand the sliding scale portion of the directions for the Humulog Kwikpen. Alayna Juarez Chief Service Observer [facility] Specialty [place] Building X20 [facility] 02-17-2025 Miscellaneous Notes Patient called her pharmacy said they do not understand the sliding scale portion of the directions for the Humulog Kwikpen. Alayna Juarez Chief Service Observer [facility] Specialty [facility] Building X20 documented in this encounter [facility] 02-17-2025 Telephone encounter Note Fax received from [facility] with Physician's order. Completed requested Diagnosis code E10.9 w/o complications. Required Alie Stallworth signature. Fax completed form to [facility] at [phone]. Fax submitted successfully. RAQUEL Meraz [facility] 02-17-2025 Miscellaneous Notes Fax received from [facility] with Physician's order. Completed requested Diagnosis code E10.9 w/o complications. Required Alie Stallworth signature. Fax completed form to [facility] at [phone]. Fax submitted successfully. RAQUEL Meraz documented in this encounter [facility] 02-17-2025 Note Patient Outreach (PM STOW) SID LEZAMA ([id number]) 1975 F Date Time Provider Department 02/17/25 TIFF VICTORIA PMSTOW During your visit today, we recorded the following information about you: Tiff Victoria RPh 02/17/2025 3:33 PM Signed Primary Care Pharmacy Panel Management This patient has been identified through Specialty Integration/Value-Based Operations Diabetes Registry Review by the primary care pharmacy team. After review, determined that the patient is not a candidate for pharmacy referral at this time due to follows closely with Endo. Tiff Victoria [facility] Allergies As of Date: 02/17/2025 Noted Allergy Reaction AZITHROMYCIN 03/18/2021 16 - Unknown Comments: thinks a rash DILAUDID (HYDROMORPHONE (BULK)) 08/07/2006 7 - Swelling [...] 7 - Swelling Comments: migraines Date Reviewed: 02/13/2025 Reviewed by: Alie Stallworth APRN.SQL ANALYST - Fully Assessed Prescriptions as of 02/17/2025 - insulin lispro (HUMALOG KWIKPEN) 100 unit/mL Inject 2 Units subcutaneously three times a day before meals. Plus sliding scale #2 If blood sugar is: Additional units < 150 0 151-200 2 201-250 4 251-300 6 301-350 8 > 350 18 units Max daily dose - Insulin Lynch, Disposable, (PEN NEEDLE) 32 gauge x 5/32 Use to inject insulin up to 8 times per day. - insulin glargine (LANTUS SOLOSTAR U-100 INSULIN) 100 unit/mL (3 mL) INJECT 40 UNITS UNDER THE SKIN EVERY evening - Blood-Glucose Sensor (FREESTYLE GIANFRANCO 3 PLUS SENSOR) matilda Apply new sensor every fifteen (15) days to upper arm. - ustekinumab (STELARA) 45 mg/0.5 mL syringe Inject 45 mg (1 syringe) subcutaneously every 12 weeks - potassium citrate ER (UROCIT-K) 10 mEq (1,080 mg) Take 1 tablet by mouth two times a day. - pantoprazole DR (PROTONIX) 20 mg tablet Take 1 tablet by mouth daily before breakfast. Take on empty stomach, 1/2 hr before meal. - blood sugar diagnostic (ACCU-CHEK GUIDE TEST STRIPS) test strip USE WITH BLOOD GLUCOSE TEST THREE TIMES A DAY. - Lancets (ACCU-CHEK FASTCLIX LANCET DRUM) Use as instructed to check blood glucose up to 2 times daily. E11.9 - Lancing Device with Lancets ACCU CHEK FASTCLIX LANCET *DEVICE* use to check blood glucose up to 2 times per day as instructed. E11.9 - GVOKE PFS 1-PACK SYRINGE 1 mg/0.2 mL syrg INJECT 0.2 ML UNDER THE SKIN NEEDED. - clobetasol (TEMOVATE) 0.05 % ointment Apply to affected area two times a day. Face. Feet. Two weeks on and two weeks off, per [facility] Dermatology. - fexofenadine HCl (LELA ORAL) Take by mouth. - levonorgestrel (MIRENA) 20 mcg/24 hours (8 yrs) 52 mg IUD 1 Each by INTRAUTERINE route as directed. - oxyCODONE-acetaminophen (PERCOCET) 5-325 mg tablet TAKE 1 TABLET BY MOUTH 3 TIMES A DAY NEEDED FOR 28 DAYS - vits62/FA/om3/dha/epa ( GUMMY ORAL) Take 2 Doses by mouth once daily. - Blood-Glucose Meter (ACCU-CHEK DIANNE) Test blood sugar(s) 2 times daily. Dx: Type 2 DM - Controlled E11.9 Insulin: No, Accu-check brand covered by insurance - Ascorbic Acid 500 mg chew Take 1,000 mg by mouth once daily. With rosehips - elderberry fruit (ELDERBERRY ORAL) Take by mouth. - COMPOUNDED PRESCRIPTION 1. V44.2 Ileostomy status (HCC) (primary diagnosis) 2. 555.1 Regional enteritis of large intestine ([facility]) Ileostomy Supplies. 1. Pouches, 2. Planges, 3. Felipe seals, 4. Stoma adhesive, 5. Stoma powder, 6. Skin preps, 7. Adhesive remover wipes. Dispense 1 year supplies. - tiZANidine (ZANAFLEX) 4 mg tablet Take by mouth. . Takes 1 tablet at bedtime. Problem List As Of Date 02/17/2025 Noted Resolved REG ENTERITIS, LG INTEST [K50.10] 08/07/2006 Retention of urine, unspecified [R33.9] 01/01/2007 11/27/2018 Mixed hyperlipidemia [E78.2] 01/10/2007 Anemia, unspecified [D64.9] 01/10/2007 03/08/2012 Nonspecific abnormal results of liver function *08/24/2007 04/19/2011 Onychia and paronychia of toe [L03.039] 09/26/2007 02/18/2013 ILEOSTOMY STATUS [Z93.2] 09/28/2007 IMPAIRED GLUCOSE JUNE TEST [R73.09] 01/31/2008 04/16/2008 Type 2 diabetes mellitus treated with insulin (*02/12/2008 Fibromyalgia [M79.7] 05/05/2008 Non-alcoholic fatty liver disease [K76.0] 08/24/2007 Mild dysplasia of cervix [N87.0] 10/27/2009 03/08/2012 Fibromyalgia [M79.7] 04/19/2011 Depression [F32.A] 08/30/2010 11/27/2018 Eczematous dermatitis: hands [L30.9] 11/23/2010 02/18/2013 Xerosis cutis [L85.3] 11/23/2010 02/18/2013 Atopic eczema [L20.9] 11/23/2010 Psoriasis [L40.9] 11/24/2010 Contact dermatitis an (more content not included)... [facility] 02-13-2025 Instructions Alie Stallworth, PERMIT TECHNICIAN.[facility] - 02/13/2025 9:58 AM EDT Lantus 40 units in the evening Humalog 2 units plus SS#2 with meals Sliding Scale Insulin Dosing Sliding Scale 2 (2 units for every 50 mg/dL > 150 mg/dL) SUPPLEMENTAL INSULIN If Blood Glucose (mg/dL) is < 150 Give 0 units 151-200 Give 2 units 201-250 Give 4 units 251-300 Give 6 units 301-350 Give 8 units 351-400 Give 10 units >400 Give 12 units, call physician if blood glucose does not improve. Low Blood Sugar (Hypoglycemia) What is it? A blood sugar less than 70 mg/dL What are some symptoms? Sleepy Shaking Sweating Dizziness Hunger What can cause it? Too much medication Not enough carbohydrates Skipped meals Increased activity How do I treat it? 1. Eat or drink 1 carb choice (15 grams). For example: One half (1/2) cup juice or regular soda Three to five (3-5) pieces of candy (not chocolate) Three to four (3-4) glucose tabs 2. Wait 15 minutes. If still less than 70 mg/dL, repeat treatment. 3. Once blood sugar is above 70 mg/dL, have a back-up snack to prevent another low. For example: One half (1/2) sandwich Cheese & crackers Follow up in 3 months Thank you for seeing me today, Alie Stallworth APRN.SQL ANALYST documented in this encounter [facility] 02-13-2025 History of Present illness Narrative Images from the original note were not included. Endocrinology Virtual Visit This is a virtual visit using [employer] Zoom Video Visit. It required patient-provider interaction for the medical decision making as documented below. I have communicated my name and active licensure. The patient's identity and physical location were verified at the time of this visit. Either the patient or their legal printing sales representative has been informed of the risks and benefits of -- and alternatives to -- treatment through a remote evaluation and consents to proceed with the evaluation remotely. 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 Believed to have passed the kidney stone while in the ED. Was discharged to home from the ED. steroid injections to neck (C3) and back L4, L5, S1, S5 - less often now, local pain med doctor at [place], patient not yet wanting second opinion. last injection was on February. This has caused her blood sugar to increase, she has started taking the lantus 25 units at bedtime which seems to help. More recently had a RA flare in Oct 2024 and was treated with steroids that increased her blood sugar. Will be having another injection soon. STEROIDS/BONE Has ileostomy bag Has Crohn's - no steroids for this, has ileostomy Has primary hyperparathyroidism - hypercalcemia, hypercalciuria BMD done in 04/2017 showed lowest Z score -2.3 BMD in 2020 Lowest T score - 1.8 Pertinent decrease (though different machine? bone mineral density of the femoral neck is 0.635 ) 10-year Fracture Risk (FRAX): Major osteoporotic fracture risk 6.% Hip fracture risk 0.9% BUT has hyperparathyroidism Lucy discussed briefly in the past as possibility but then PTH seemed to be a player so deferred Prolia Patient reports taking Allulouce [address] of GLP-1 (ozempic) she was taking prior. Trufay fig bar, discussed to watching how much sugar is in these type of bars. Has not been consistent with taking her lantus. Has been taking different amounts of lantus - If blood sugar 297, takes 40 units and if above does takes 60 units Patient's goal is to be off all medications including insulin 24 hours diet recall: coffee with 1/2 and 1/2 2 cookies 3 meatballs and green beans and chopped salad Saw Dr. Teresa 2022 for parathyroid surgery eval Patient deferred, prefers holistic approach INTERVAL HISTORY History of relatedmedications: Metformin started first Januvia started 2011 Glyburide caused lows 50s Lantus Januvia 50 mg daily - stopped when Trulicity started Nov 2018 Trulicity 1.5 mg, mild abd discomfort after eating Farxiga 5 mg - getting yeast infections, stopped Was on atorvastatin, stopped, wanting to go holistic Red yeast rice - stopped Metformin 1000 mg BID - she wanted to come off this and was able Lantus - 25 units morning - just started last night since she received steroid injection yesterday Previous Medications Ozempic 1 mg weekly (prefers holistic approach) Current related medications: Lantus 20 units in the evening if blood sugar 240 or higher (taking 40-60 units) Calcium intake in diet/supplements: takes nutritional shake, yogurt, cheese Vitamin D intake: has supplements from holistic provider IUD Mirena 2022 last insertion Supplements from holistic provider Freestyle 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 FamHx: Neg thyroid CA Crohn's - cousins pat DM - grandparents HTN- mother CAD- maternal grandma REVIEW OF SYSTEMS Answers submitted by the patient for this visit: Core Review of Systems (Submitted on 11/19/2024) Fever : No Night sweats: No Recent unintentional weight change: No Nasal Congestion: No Hearing Loss: No Vision Disturbance: No A cough: No Difficulty Breathing?: No Chest pain: No Irregular heartbeat: No Leg Swelling: No Nausea: No Diarrhea: Yes Black tarry stools: No Difficulty Urinating?: No Awaken at Night More Than Once to Urinate?: Yes Joint pain or stiffness: Yes Muscle aches: Yes Leg or Foot Discomfort at Night?: No A rash: No Dizziness: No Headaches: Yes Memory Loss: No Seizures: No PHYSICAL EXAMINATION Limited due to virtual visit Gen: well appearing, NAD Head: atraumatic normocephalic Eyes: EOMI no scleral icterus Neck: no obvious goiter Pulm: resp effort is appropraite Ext: no swelling cyanosis Neuro: hearing and speech normal LABS REVIEWED. Latest Ref Rng 12/12/2024 12/18/2024 01/10/2025 Glucose 74 - 99 mg/dL 191 (H) 276 (H) BUN 7 - 21 mg/dL 8 14 Creatinine 0.58 - 0.96 mg/dL 0.64 0.59 Sodium 136 - 144 mmol/L 141 135 (L) Potassium 3.7 - 5.1 mmol/L 3.8 4.6 Chloride 98 - 107 mmol/L 107 102 CO2 22 - 30 mmol/L 24 23 Anion Gap 8 - 15 mmol/L 10 10 Calcium 8.5 - 10.2 mg/dL 9.6 10.4 (H) eGFR >=60 mL/min/1.73m 108 110 Cholesterol, Total <200 mg/dL 223 (H) Triglyceride <150 mg/dL 133 HDL Cholesterol >39 mg/dL 56 Non HDL Cholesterol <130 mg/dL 167 (H) Fasting Time hrs 12 VLDL Cholesterol <30 mg/dL 27 TC:HDL Ratio <5.10 3.98 LDL Cholesterol <100 mg/dL 140 (H) LDL:HDL Ratio <2.54 2.50 Hemoglobin A1C 4.3 - 5.6 % 8.4 (H) Estimated Average Glucose mg/dL 194 IMAGING REVIEWED BMD Sep 2023 IMPRESSION: Osteopenia in the lumbar spine and left femoral neck and left forearm Profile Saw Operator: SANTOS Transcribe Date/Time: Sep 25 2023 12:59P Dictated by : JOVANY GARCIA MD This examination was interpreted and the report reviewed and electronically signed by: JOVANY GARCIA MD on Sep 25 2023 1:06PM EST Results-Findings * * *Final Report* * * DATE OF EXAM: Sep 25 2023 10:01AM WRB [id number] - BD DXA - FOREARM SKELETON / PROCEDURE REASON: Primary hyperparathyroidism (HCC) * * * * Physician Interpretation * * * * EXAMINATION: DXA BONE DENSITOMETRY BD DXA - AXIAL SKELETON, BD DXA - FOREARM SKELETON PATIENT DEMOGRAPHICS: Age: 47 years, Gender: Female SCANNER INFORMATION: DXA Model: [employer] C [id number] Date Scanned: 09/25/2023 10:01 AM CLINICAL HISTORY: DIAGNOSTIC Primary hyperparathyroidism (HCC) . RISK FACTORS FOR OSTEOPOROSIS AND ASSOCIATED FRACTURES REPORTED BY THIS PATIENT: Please refer to Bone Health Questionnaire in the EMR CURRENT THERAPY: Please refer to Bone Health Questionnaire in the EMR RESULTS: Lumbar spine (L1, L2, L3, L4): 0.820 g/cm2, Z-score -1.3 Lumbar spine: 2020: 0.846 g/cm2 Left Femoral Neck: 0.634 g/cm2, Z-score -1.3 Left Femoral Neck: 2020: 0.635 g/cm2 Left Total Hip: 0.852 g/cm2, Z-score -0.3 Left Total Hip: 2020: 0.894 g/cm2 Left Forearm, Distal 1/3 of Radius: 0.610 g/cm2, Z-score -0.7 CHANGE IS STATISTICALLY SIGNIFICANT IN THE SPINE OR HIP IF GREATER THAN OR EQUAL TO 0.04 g/cm2 VERTEBRAL FRACTURE ASSESSMENT Not performed. FRAX 10 Year fracture risk Major osteoporotic fracture 7.3% Hip fracture 1% Bone density 2020 LUMBAR SPINE: The bone mineral density from L1 through L4 is 0.846 grams per square centimeter which yields a T-score of -1.8. The bone mineral density previously measured 0.954 g/sq cm. LEFT HIP: The bone mineral density of the total region of the hip is 0.894 grams per square centimeter which yields a T-score of -0.4. The bone mineral density previously measured 0.909 g/sq cm. LEFT FEMORAL NECK: The bone mineral density of the femoral neck is 0.635 grams per square centimeter which yields a T-score of -1.9. The bone mineral density previously measured 0.827 g/sq cm. 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 Lumbago 01/10/2007 Myalgia and myositis, unspecified Pain management Dr Stern Nonalcoholic fatty liver disease 08/24/2007 Other and unspecified hyperlipidemia 01/10/2007 PMH - PAST MEDICAL HISTORY OF Cx scarred to post vag wall/difficult exam Pneumonia, organism unspecified(486) 01/10/2007 Regional enteritis of large intestine (HCC) 08/07/2006 Retention of urine, unspecified 01/01/2007 Rheumatoid arthritis(714.0) Dr. Mc, [facility] Type II or unspecified type diabetes mellitus without mention of complication, not stated as uncontrolled Ureterolithiasis 07/18/2019 PAST SURGICAL HISTORY Procedure Laterality Date ADENOIDECTOMY PRIMARY <AGE 11 1986 Adenoidectomy ARTHROSCOPY KNEE DIAGNOSTIC W/WO SYNOVIAL BX SPX 1989 Arthroscopy, knee, left BRNCHSC INCL FLUOR GDNCE DX W/CELL WASHG SPX 01/2007 Bronchoscopy EGD 05/02/2023 EPIDURAL 2011 multiple ones done by Dr. Beckett ILEOSCOPY 05/02/2023 PAST SURGICAL HISTORY OF 06/2000 ILEOSTOMY/COLECTOMY PAST SURGICAL HISTORY OF 1993 CRYOCAUTERY/ MILD DYSPLASIA PAST SURGICAL HISTORY OF 03/2006 Abdominal abscess with anal fistula PRCTECT COMPL W/STOT/TOT COLCT W/VENEER JOINER BXS 12/05/2006 AP endoanal proctectomy SHOULDER ARTHROSCOPY/SURGERY Left 05/06/2020 Rotator cuff debridement, subacromial decompression/arthroplasty TONSILLECTOMY PRIMARY/SECONDARY <AGE 11 1986 Tonsillectomy Social History Tobacco Use Smoking status: Former Current packs/day: 0.00 Average packs/day: 1 pack/day for 16.0 years (16.0 ttl pk-yrs) Types: Cigarettes Start date: 12/04/1990 Quit date: 12/04/2006 Years since quittin.2 Smokeless tobacco: Never Vaping Use Vaping status: Never Used Substance Use Topics Alcohol use: No Drug use: No FAMILY HISTORY Problem Relation Age of Onset Alcohol/Drug Mother Hypertension Mother COPD other (vascular disease) Mother other (sleep apnea) Mother other (heart murmur) Mother Alcohol/Drug Father Cancer Father liver Asthma Brother Hypertension Daughter Diabetes Maternal Grandmother Stroke Maternal Grandmother Heart Maternal Grandmother Emphysema Paternal Grandmother Diabetes Paternal Grandfather Macular Degen Paternal Grandfather Anesthesia Problems No Family History Current Outpatient Medications Medication Sig ustekinumab (STELARA) 45 mg/0.5 mL syringe Inject 45 mg (1 syringe) subcutaneously every 12 weeks potassium citrate ER (UROCIT-K) 10 mEq (1,080 mg) Take 1 tablet by mouth two times a day. potassium citrate ER (UROCIT-K) 10 mEq (1,080 mg) Take 1 tablet by mouth two times a day. tamsulosin (FLOMAX) 0.4 mg Take 1 capsule by mouth daily at bedtime for 14 days. insulin glargine (LANTUS SOLOSTAR U-100 INSULIN) 100 unit/mL (3 mL) INJECT 20 UNITS UNDER THE SKIN EVERY evening pantoprazole DR (PROTONIX) 20 mg tablet Take 1 tablet by mouth daily before breakfast. Take on empty stomach, 1/2 hr before meal. blood sugar diagnostic (ACCU-CHEK GUIDE TEST STRIPS) test strip USE WITH BLOOD GLUCOSE TEST THREE TIMES A DAY. Lancets (ACCU-CHEK FASTCLIX LANCET DRUM) Use as instructed to check blood glucose up to 2 times daily. E11.9 Insulin Lynch, Disposable, (DROPLET PEN NEEDLE) 32 gauge x 5/32 USE TO INJECT ONE TIME DAILY Lancing Device with Lancets ACCU CHEK FASTCLIX LANCET *DEVICE* use to check blood glucose up to 2 times per day as instructed. E11.9 GVOKE PFS 1-PACK SYRINGE 1 mg/0.2 mL syrg INJECT 0.2 ML UNDER THE SKIN NEEDED. Blood-Glucose Sensor (FREESTYLE GIANFRANCO 3 SENSOR) matilda Apply new sensor every fourteen (14) days to upper arm. E11.9 clobetasol (TEMOVATE) 0.05 % ointment Apply to affected area two times a day. Face. Feet. Two weeks on and two weeks off, per [facility]. fexofenadine HCl (LELA ORAL) Take by mouth. levonorgestrel (MIRENA) 20 mcg/24 hours (8 yrs) 52 mg IUD 1 Each by INTRAUTERINE route as directed. oxyCODONE-acetaminophen (PERCOCET) 5-325 mg tablet TAKE 1 TABLET BY MOUTH 3 TIMES A DAY NEEDED FOR 28 DAYS vits62/FA/om3/dha/epa ( GUMMY ORAL) Take 2 Doses by mouth once daily. Blood-Glucose Meter (ACCU-CHEK DIANNE) Test blood sugar(s) 2 times daily. Dx: Type 2 DM - Controlled E11.9 Insulin: No, Accu-check brand covered by insurance Ascorbic Acid 500 mg chew Take 1,000 mg by mouth once daily. With rosehips elderberry fruit (ELDERBERRY ORAL) Take by mouth. COMPOUNDED PRESCRIPTION 1. V44.2 Ileostomy status ([facility]) (primary diagnosis) 2. 555.1 Regional enteritis of large intestine ([facility]) Ileostomy Supplies. 1. Pouches, 2. Planges, 3. Felipe seals, 4. Stoma adhesive, 5. Stoma powder, 6. Skin preps, 7. Adhesive remover wipes. Dispense 1 year supplies. tiZANidine (ZANAFLEX) 4 mg tablet Take by mouth. . Takes 1 tablet at bedtime. No current facility-administered medications for this visit. ALLERGIES Allergen Reactions Azithromycin Unknown thinks a rash Dilaudid [Hydromorp* Swelling migraines Levemir [Insulin De* Other: See Comments Urine turned dark and smelly Methadone Swelling migraine Morphine Swelling migraines Remicade [Inflixima* Intolerance, Rash broke out in blisters with the 6th dose. 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 Monica Marte [address] [place] [id number] Bone density - next in Sep 2025 unless has surgery Thyroid nodule subcm Dr. Teresa's 2022 done for parathyroid localization Labs/Imaging/Consults/Scripts al/cr ratio Follow-up: 3 mo Please contact me/my office: if you do not receive a note from me summarizing your lab or imaging within a week of your seeing/receiving your results. 2. sooner than the recommended follow-up if with issues/concerns. 3. If you do not see lab/imaging orders prior to your next visit Please see your primary care provider and other specialists for issues not explained by the condition you are seeing me for. Alie Stallworth APRN.CNP February 13, 2025 All documentation from previous visit of 11/19/2024 was copied and pasted, documentation has been reviewed and edited as necessary for today's visit. Medical Decision Making: Problems: Moderate: 1+ chronic illnesses with change Data: Unique test result(s) reviewed: 3+ Risk: Moderate: Drug management Medical Decision Making Level: 4 - Moderate documented in this encounter [facility] 02-13-2025 Note HNO ID: [id number] Author: ALIE STALLWORTH APRN.CNP Service: ? Author Type: Nurse Practitioner Type: Progress Notes Filed: 02/13/2025 10:15 Note Text: Endocrinology Virtual Visit This is a virtual visit using MyChart Zoom Video Visit. It required patient-provider interaction for the medical decision making as documented below. I have communicated my name and active licensure. The patient's identity and physical location were verified at the time of this visit. Either the patient or their legal printing sales representative has been informed of the risks and benefits of -- and alternatives to -- treatment through a remote evaluation and consents to proceed with the evaluation remotely. 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 Believed to have passed the kidney stone while in the ED. Was discharged to home from the ED. steroid injections to neck (C3) and back L4, L5, S1, S5 - less often now, local pain med doctor at [place], patient not yet wanting second opinion. last injection was on February. This has caused her blood sugar to increase, she has started taking the lantus 25 units at bedtime which seems to help. More recently had a RA flare in Oct 2024 and was treated with steroids that increased her blood sugar. Will be having another injection soon. STEROIDS/BONE Has ileostomy bag Has Crohn's - no steroids for this, has ileostomy Has primary hyperparathyroidism - hypercalcemia, hypercalciuria BMD done in 04/2017 showed lowest Z score -2.3 BMD in 2020 Lowest T score - 1.8 Pertinent decrease (though different machine? bone mineral density of the femoral neck is 0.635 ) 10-year Fracture Risk (FRAX): Major osteoporotic fracture risk 6.% Hip fracture risk 0.9% BUT has hyperparathyroidism Prolia discussed briefly in the past as possibility but then PTH seemed to be a player so deferred Prolia Patient reports taking Allulouce [address] of GLP-1 (ozempic) she was taking prior. [employer] fig bar, discussed to watching how much sugar is in these type of bars. Has not been consistent with taking her lantus. Has been taking different amounts of lantus - If blood sugar 297, takes 40 units and if above does takes 60 units Patient's goal is to be off all medications including insulin 24 hours diet recall: coffee with 1/2 and 1/2 2 cookies 3 meatballs and green beans and chopped salad Saw Dr. Teresa 2022 for parathyroid surgery eval Patient deferred, prefers holistic approach INTERVAL HISTORY History of relatedmedications: Metformin started first Januvia started 2011 Glyburide caused lows 50s Lantus Januvia 50 mg daily - stopped when Trulicity started Nov 2018 Trulicity 1.5 mg, mild abd discomfort after eating Farxiga 5 mg - getting yeast infections, stopped Was on atorvastatin, stopped, wanting to go holistic Red yeast rice - stopped Metformin 1000 mg BID - she wanted to come off this and was able Lantus - 25 units morning - just started last night since she received steroid injection yesterday Previous Medications Ozempic 1 mg weekly (prefers holistic approach) Current related medications: Lantus 20 units in the evening if blood sugar 240 or higher (taking 40-60 units) Calcium intake in diet/supplements: takes nutritional shake, yogurt, cheese Vitamin D intake: has supplements from holistic provider IUD Mirena 2022 last insertion Supplements from holistic provider [employer] 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 [facility] 02-11-2025 History of Present illness Narrative [facility] Refill Assessment Medication(s): Stelara Patient's current medication list and adherence status to current therapy were reviewed by Specialty Pharmacy clinical pharmacist to identify any new drug interactions or non-compliance to therapy. Therapy continues to be appropriate for disease, patient response, and medical condition. Verification of therapeutic benefit and effectiveness with current therapy was completed. Adverse events, barriers in adherence, and side effects were assessed and addressed if applicable. Will proceed with refill with no changes in therapy - patient progressing towards achieving therapeutic goals based on medication-specific laboratory parameters, disease state markers and outcomes. Office/provider notes have been reviewed prior to dispensing the medication. Ustekinumab (Stelara) - IL-12/23 Inhibitor CBC with differential (baseline); complete metabolic panel (baseline); tuberculosis (TB) screening prior to initiating and during therapy (chest X-ray if TB positive); hepatitis C virus/hepatitis B virus (HBV) screening prior to initiating (all patients), HBV carriers (during and for several months following therapy); HIV screening (baseline) (AAD/NPF [Menter 2019]); monitor for signs/symptoms of infection, posterior reversible encephalopathy syndrome, and squamous cell skin carcinoma. CBC with differential: WBC Date Value Ref Range Status 12/18/2024 5.09 3.70 - 11.00 k/uL Final RBC Date Value Ref Range Status 12/18/2024 4.77 3.90 - 5.20 m/uL Final Hemoglobin Date Value Ref Range Status 12/18/2024 13.8 11.5 - 15.5 g/dL Final Hematocrit Date Value Ref Range Status 12/18/2024 42.9 36.0 - 46.0 % Final MCV Date Value Ref Range Status 12/18/2024 89.9 80.0 - 100.0 fL Final MCH Date Value Ref Range Status 12/18/2024 28.9 26.0 - 34.0 pg Final MCHC Date Value Ref Range Status 12/18/2024 32.2 30.5 - 36.0 g/dL Final RDW-CV Date Value Ref Range Status 12/18/2024 11.9 11.5 - 15.0 % Final Platelet Count Date Value Ref Range Status 12/18/2024 205 150 - 400 k/uL Final MPV Date Value Ref Range Status 12/18/2024 10.5 9.0 - 12.7 fL Final Neutrophils % Date Value Ref Range Status 12/18/2024 52.9 % Final Lymphocytes % Date Value Ref Range Status 12/18/2024 36.9 % Final Monocytes % Date Value Ref Range Status 12/18/2024 5.7 % Final Eosinophils % Date Value Ref Range Status 12/18/2024 3.3 % Final Basophils % Date Value Ref Range Status 12/18/2024 0.8 % Final Abs Neut Date Value Ref Range Status 12/18/2024 2.69 1.45 - 7.50 k/uL Final Abs [place] Date Value Ref Range Status 12/18/2024 0.29 <0.87 k/uL Final Abs Eosin Date Value Ref Range Status 12/18/2024 0.17 <0.46 k/uL Final Abs Baso Date Value Ref Range Status 12/18/2024 0.04 <0.11 k/uL Final CMP: Albumin Date Value Ref Range Status 12/18/2024 4.3 3.9 - 4.9 g/dL Final Calcium, Total Date Value Ref Range Status 01/10/2025 10.4 (H) 8.5 - 10.2 mg/dL Final Bilirubin, Total Date Value Ref Range Status 12/11/2024 0.5 0.2 - 1.3 mg/dL Final Alkaline Phosphatase Date Value Ref Range Status 12/11/2024 166 (H) 34 - 123 U/L Final AST Date Value Ref Range Status 12/18/2024 17 13 - 35 U/L Final ALT Date Value Ref Range Status 12/18/2024 30 7 - 38 U/L Final Glucose Date Value Ref Range Status 01/10/2025 276 (H) 74 - 99 mg/dL Final Comment: The [place] [employer] (ADA) provides guidance for cutoff values for fasting glucose and random glucose. The ADA defines fasting as no caloric intake for at least 8 hours. Fasting plasma glucose results between 100 to 125 [...] Standards of Medical Care in Diabetes 2016, [place] [employer]. Diabetes Care. 2016.39(Suppl 1). BUN Date Value Ref Range Status 01/10/2025 14 7 - 21 mg/dL Final Creatinine Date Value Ref Range Status 01/10/2025 0.59 0.58 - 0.96 mg/dL Final Sodium Date Value Ref Range Status 01/10/2025 135 (L) 136 - 144 mmol/L Final Potassium Date Value Ref Range Status 01/10/2025 4.6 3.7 - 5.1 mmol/L Final Chloride Date Value Ref Range Status 01/10/2025 102 98 - 107 mmol/L Final CO2 Date Value Ref Range Status 01/10/2025 23 22 - 30 mmol/L Final Anion Gap Date Value Ref Range Status 01/10/2025 10 8 - 15 mmol/L Final eGFR- Date Value Ref Range Status 12/21/2021 >60 Final Estimated Glomerular Filtration Rate Date Value Ref Range Status 01/10/2025 110 >=60 mL/min/1.73m Final Comment: Estimated Glomerular Filtration Rate (eGFR) is calculated using the 2020 CKD-EPI creatinine equation. This equation utilizes serum creatinine, sex, and age as parameters. The creatinine assay has traceable calibration to isotope dilution-mass spectrometry. Refer to KDIGO guidelines for clinical interpretation. In patients with unstable renal function, e.g. those with acute kidney injury, the eGFR may not accurately reflect actual GFR. HBsAg Date Value Ref Range Status 06/18/2021 Negative Negative Final Hep B Surface Ab, Qual Date Value Ref Range Status 04/19/2022 Negative Negative Final Comment: No evidence of current or past infection with Hepatitis B virus. Should recent infection be suspected, repeat testing may be considered 3-4 weeks after this draw. Hepatitis B Core Ab, Total Date Value Ref Range Status 04/19/2022 Negative Negative Final Comment: No evidence of current or past infection with Hepatitis B virus. Should recent infection be suspected, repeat testing may be considered 3-4 weeks after this draw. Hep C Antibody IA Date Value Ref Range Status 04/19/2022 Negative Negative Final Comment: The result suggests no evidence of active infection with Hepatitis C virus. Should recent infection be suspected, repeat testing may be considered 4-6 weeks after this draw. TB Result Date Value Ref Range Status 04/19/2022 Negative Final No results found for: HIV1AB Current Outpatient Medications on File Prior to Visit Medication Sig ustekinumab (STELARA) 45 mg/0.5 mL syringe Inject 45 mg (1 syringe) subcutaneously every 12 weeks potassium citrate ER (UROCIT-K) 10 mEq (1,080 mg) Take 1 tablet by mouth two times a day. potassium citrate ER (UROCIT-K) 10 mEq (1,080 mg) Take 1 tablet by mouth two times a day. tamsulosin (FLOMAX) 0.4 mg Take 1 capsule by mouth daily at bedtime for 14 days. insulin glargine (LANTUS SOLOSTAR U-100 INSULIN) 100 unit/mL (3 mL) INJECT 20 UNITS UNDER THE SKIN EVERY evening pantoprazole DR (PROTONIX) 20 mg tablet Take 1 tablet by mouth daily before breakfast. Take on empty stomach, 1/2 hr before meal. blood sugar diagnostic (ACCU-CHEK GUIDE TEST STRIPS) test strip USE WITH BLOOD GLUCOSE TEST THREE TIMES A DAY. Lancets (ACCU-CHEK FASTCLIX LANCET DRUM) Use as instructed to check blood glucose up to 2 times daily. E11.9 Insulin Lynch, Disposable, (DROPLET PEN NEEDLE) 32 gauge x 5/32 USE TO INJECT ONE TIME DAILY Lancing Device with Lancets ACCU CHEK FASTCLIX LANCET *DEVICE* use to check blood glucose up to 2 times per day as instructed. E11.9 GVOKE PFS 1-PACK SYRINGE 1 mg/0.2 mL syrg INJECT 0.2 ML UNDER THE SKIN NEEDED. Blood-Glucose Sensor (FREESTYLE GIANFRANCO 3 SENSOR) matilda Apply new sensor every fourteen (14) days to upper arm. E11.9 clobetasol (TEMOVATE) 0.05 % ointment Apply to affected area two times a day. Face. Feet. Two weeks on and two weeks off, per [facility] Dermatology. fexofenadine HCl (LELA ORAL) Take by mouth. levonorgestrel (MIRENA) 20 mcg/24 hours (8 yrs) 52 mg IUD 1 Each by INTRAUTERINE route as directed. oxyCODONE-acetaminophen (PERCOCET) 5-325 mg tablet TAKE 1 TABLET BY MOUTH 3 TIMES A DAY NEEDED FOR 28 DAYS vits62/FA/om3/dha/epa ( GUMMY ORAL) Take 2 Doses by mouth once daily. Blood-Glucose Meter (ACCU-CHEK DIANNE) Test blood sugar(s) 2 times daily. Dx: Type 2 DM - Controlled E11.9 Insulin: No, Accu-check brand covered by insurance Ascorbic Acid 500 mg chew Take 1,000 mg by mouth once daily. With rosehips elderberry fruit (ELDERBERRY ORAL) Take by mouth. COMPOUNDED PRESCRIPTION 1. V44.2 Ileostomy status (HCC) (primary diagnosis) 2. 555.1 Regional enteritis of large intestine (HCC) Ileostomy Supplies. 1. Pouches, 2. Planges, 3. Felipe seals, 4. Stoma adhesive, 5. Stoma powder, 6. Skin preps, 7. Adhesive remover wipes. Dispense 1 year supplies. tiZANidine (ZANAFLEX) 4 mg tablet Take by mouth. . Takes 1 tablet at bedtime. No current facility-administered medications on file prior to visit. Canceled Appointments: Future Appointments Date Time Provider Department Center 02/13/2025 9:00 AM Alie Stallworth, PERMIT TECHNICIAN.SQL ANALYST ARABELLA Trevino [facility] 03/13/2025 9:00 AM [facility] RGMOB [place] 03/14/2025 10:00 AM Lara Reeder DO ORMDNA [facility] 03/24/2025 10:00 AM Scott Gold MD RHEUST Strongsv [facility] 05/05/2025 11:00 AM Pharmacist, Specialtygroup 2 SPCPHARMSVC None 07/18/2025 9:00 AM [facility] MOB 1 RUSWS [place] 07/30/2025 3:00 PM Samy Barragan PA-C UROLST [facility] 08/12/2025 8:00 AM Grayson Phan MD INTFrederickWS [facility] 08/25/2025 10:00 AM Steve Juarez, PERMIT TECHNICIAN.SQL ANALYST OSCAR Escalona [facility] [place] [facility] Clinical Pharmacist - Biologics: Allergy, Immunology, and Inflammatory [facility] ; Pool: Yeni [facility] Pool #: [id number] Feeder Operator Assessment Patient confirmed: Yes Med/dose confirmed: Yes Supplies needed: No supplies needed Missed doses: No Estimated days supply on hand: 0 Next cycle/dose due: 02/19/25 Copay amount: 0 Payment confirmed: Yes Delivery method: FedEx Signature required: Waived on patient request Delivery address: [address] [place] [address] Delivery date: 02/13/25 Questions or concerns for the pharmacist?: No Did you have any side effects believed to be related to this medication, that resulted in hospitalization?: No Current Outpatient Medications on File Prior to Visit Medication Sig ustekinumab (STELARA) 45 mg/0.5 mL syringe Inject 45 mg (1 syringe) subcutaneously every 12 weeks potassium citrate ER (UROCIT-K) 10 mEq (1,080 mg) Take 1 tablet by mouth two times a day. potassium citrate ER (UROCIT-K) 10 mEq (1,080 mg) Take 1 tablet by mouth two times a day. tamsulosin (FLOMAX) 0.4 mg Take 1 capsule by mouth daily at bedtime for 14 days. insulin glargine (LANTUS SOLOSTAR U-100 INSULIN) 100 unit/mL (3 mL) INJECT 20 UNITS UNDER THE SKIN EVERY evening pantoprazole DR (PROTONIX) 20 mg tablet Take 1 tablet by mouth daily before breakfast. Take on empty stomach, 1/2 hr before meal. blood sugar diagnostic (ACCU-CHEK GUIDE TEST STRIPS) test strip USE WITH BLOOD GLUCOSE TEST THREE TIMES A DAY. Lancets (ACCU-CHEK FASTCLIX LANCET DRUM) Use as instructed to check blood glucose up to 2 times daily. E11.9 Insulin Lynch, Disposable, (DROPLET PEN NEEDLE) 32 gauge x 5/32 USE TO INJECT ONE TIME DAILY Lancing Device with Lancets ACCU CHEK FASTCLIX LANCET *DEVICE* use to check blood glucose up to 2 times per day as instructed. E11.9 GVOKE PFS 1-PACK SYRINGE 1 mg/0.2 mL syrg INJECT 0.2 ML UNDER THE SKIN NEEDED. Blood-Glucose Sensor (FREESTYLE GIANFRANCO 3 SENSOR) matilda Apply new sensor every fourteen (14) days to upper arm. E11.9 clobetasol (TEMOVATE) 0.05 % ointment Apply to affected area two times a day. Face. Feet. Two weeks on and two weeks off, per [facility] Dermat[facility]. fexofenadine HCl (LELA ORAL) Take by mouth. levonorgestrel (MIRENA) 20 mcg/24 hours (8 yrs) 52 mg IUD 1 Each by INTRAUTERINE route as directed. oxyCODONE-acetaminophen (PERCOCET) 5-325 mg tablet TAKE 1 TABLET BY MOUTH 3 TIMES A DAY NEEDED FOR 28 DAYS vits62/FA/om3/dha/epa ( GUMMY ORAL) Take 2 Doses by mouth once daily. Blood-Glucose Meter (ACCU-CHEK DIANNE) Test blood sugar(s) 2 times daily. Dx: Type 2 DM - Controlled E11.9 Insulin: No, Accu-check brand covered by insurance Ascorbic Acid 500 mg chew Take 1,000 mg by mouth once daily. With rosehips elderberry fruit (ELDERBERRY ORAL) Take by mouth. COMPOUNDED PRESCRIPTION 1. V44.2 Ileostomy status (HCC) (primary diagnosis) 2. 555.1 Regional enteritis of large intestine ([facility]) Ileostomy Supplies. 1. Pouches, 2. Planges, 3. Felipe seals, 4. Stoma adhesive, 5. Stoma powder, 6. Skin preps, 7. Adhesive remover wipes. Dispense 1 year supplies. tiZANidine (ZANAFLEX) 4 mg tablet Take by mouth. . Takes 1 tablet at bedtime. No current facility-administered medications on file prior to visit. [facility] SPECIALTY CLINICAL ASSESSMENT - INFLAMMATORY CONDITIONS V6: Assessment to use: Refill Assessment of injection issues: Yes Infection screening, including annual TB assessment when applicable to medication: Yes Current medication list (including drug interaction assessment): Yes Experience of adverse reactions to the medication: Yes Date of influenza vaccination reminder: 09/02/2024 Date of most recent vaccination assessment: 09/02/2024 Treatment Plan Information: Seronegative spondyloarthropathy Crohn's disease with complication, unspecified gastrointestinal tract location (HCC) Osteoarthritis of spine, unspecified spinal osteoarthritis complication status, unspecified spinal region Stelara - Inject 45 mg (1 syringe) subcutaneously at weeks 0 and 4 followed by every 12 weeks thereafter. Est. Tx Plan Start Date: 12/23/2022 Estimated Start Date Info: No information available Est. Estimated Treatment Duration: Until loss of efficacy and/or no longer tolerated. Shira Matta CPhT, Inflammatory/Allergy [facility] [phone] documented in this encounter [facility] 02-11-2025 Note HNO ID: [id number] Author: ORNELAS RPh Service: ? Author Type: ? Type: Progress Notes Filed: 02/12/2025 05:39 Note Text: [facility] Specialty Refill Assessment Medication(s): Stelara Patient's current medication list and adherence status to current therapy were reviewed by Specialty Pharmacy clinical pharmacist to identify any new drug interactions or non-compliance to therapy. Therapy continues to be appropriate for disease, patient response, and medical condition. Verification of therapeutic benefit and effectiveness with current therapy was completed. Adverse events, barriers in adherence, and side effects were assessed and addressed if applicable. Will proceed with refill with no changes in therapy - patient progressing towards achieving therapeutic goals based on medication-specific laboratory parameters, disease state markers and outcomes. Office/provider notes have been reviewed prior to dispensing the medication. Ustekinumab (Stelara) - IL-12/23 Inhibitor CBC with differential (baseline); complete metabolic panel (baseline); tuberculosis (TB) screening prior to initiating and during therapy (chest X-ray if TB positive); hepatitis C virus/hepatitis B virus (HBV) screening prior to initiating (all patients), HBV carriers (during and for several months following therapy); HIV screening (baseline) (AAD/NPF [Menter 2019]); monitor for signs/symptoms of infection, posterior reversible encephalopathy syndrome, and squamous cell skin carcinoma. CBC with differential: WBC Date Value Ref Range Status 12/18/2024 5.09 3.70 - 11.00 k/uL Final RBC Date Value Ref Range Status 12/18/2024 4.77 3.90 - 5.20 m/uL Final Hemoglobin Date Value Ref Range Status 12/18/2024 13.8 11.5 - 15.5 g/dL Final Hematocrit Date Value Ref Range Status 12/18/2024 42.9 36.0 - 46.0 % Final MCV Date Value Ref Range Status 12/18/2024 89.9 80.0 - 100.0 fL Final MCH Date Value Ref Range Status 12/18/2024 28.9 26.0 - 34.0 pg Final MCHC Date Value Ref Range Status 12/18/2024 32.2 30.5 - 36.0 g/dL Final RDW-CV Date Value Ref Range Status 12/18/2024 11.9 11.5 - 15.0 % Final Platelet Count Date Value Ref Range Status 12/18/2024 205 150 - 400 k/uL Final MPV Date Value Ref Range Status 12/18/2024 10.5 9.0 - 12.7 fL Final Neutrophils % Date Value Ref Range Status 12/18/2024 52.9 % Final Lymphocytes % Date Value Ref Range Status 12/18/2024 36.9 % Final Monocytes % Date Value Ref Range Status 12/18/2024 5.7 % Final Eosinophils % Date Value Ref Range Status 12/18/2024 3.3 % Final Basophils % Date Value Ref Range Status 12/18/2024 0.8 % Final Abs Neut Date Value Ref Range Status 12/18/2024 2.69 1.45 - 7.50 k/uL Final Abs [place] Date Value Ref Range Status 12/18/2024 0.29 <0.87 k/uL Final Abs Eosin Date Value Ref Range Status 12/18/2024 0.17 <0.46 k/uL Final Abs Baso Date Value Ref Range Status 12/18/2024 0.04 <0.11 k/uL Final CMP: Albumin Date Value Ref Range Status 12/18/2024 4.3 3.9 - 4.9 g/dL Final Calcium, Total Date Value Ref Range Status 01/10/2025 10.4 (H) 8.5 - 10.2 mg/dL Final Bilirubin, Total Date Value Ref Range Status 12/11/2024 0.5 0.2 - 1.3 mg/dL Final Alkaline Phosphatase Date Value Ref Range Status 12/11/2024 166 (H) 34 - 123 U/L Final AST Date Value Ref Range Status 12/18/2024 17 13 - 35 U/L Final ALT Date Value Ref Range Status 12/18/2024 30 7 - 38 U/L Final Glucose Date Value Ref Range Status 01/10/2025 276 (H) 74 - 99 mg/dL Final Comment: The [place] [employer] (ADA) provides guidance for cutoff values for fasting glucose and random glucose. The ADA defines fasting as no caloric intake for at least 8 hours. Fasting plasma glucose results between 100 to 125 [...] Standards of Medical Care in Diabetes 2016, [place] [employer]. Diabetes Care. 2016.39(Suppl 1). BUN Date Value Ref Range Status 01/10/2025 14 7 - 21 mg/dL Final Creatinine Date Value Ref Range Status 01/10/2025 0.59 0.58 - 0.96 mg/dL Final Sodium Date Value Ref Range Status 01/10/2025 135 (L) 136 - 144 mmol/L Final Potassium Date Value Ref Range Status 01/10/2025 4.6 3.7 - 5.1 mmol/L Final Chloride Date Value Ref Range Status 01/10/2025 102 98 - 107 mmol/L Final CO2 Date Value Ref Range Status 01/10/2025 23 22 - 30 mmol/L Final Anion Gap Date Value Ref Range Status 01/10/2025 10 8 - 15 mmol/L Final eGFR- Date Value Ref Ran (more content not included)... [facility] 02-07-2025 Telephone encounter Note Sid Lezama will be due for a refill soon. Date of Sid Lezama's last Rheumatology office visit: 10/25/24 Next appointment date: 03/24/25 Last labs: 12/18/2024 Last TB test: TB Result Date Value Ref Range Status 04/19/2022 Negative Final Pended Orders ID Status Description Pended By When Reason [id number] Pended ustekinumab (STELARA) 45 mg/0.5 mL syringe [place] RPh 02/07/25 1342 If above therapy is being continued, please sign this order request to send refill(s) via eRx to [facility]. Thank you. Ustekinumab (Stelara) - IL-12/23 Inhibitor CBC with differential (baseline); complete metabolic panel (baseline); tuberculosis (TB) screening prior to initiating and during therapy (chest X-ray if TB positive); hepatitis C virus/hepatitis B virus (HBV) screening prior to initiating (all patients), HBV carriers (during and for several months following therapy); HIV screening (baseline) (AAD/NPF [Menter 2019]); monitor for signs/symptoms of infection, posterior reversible encephalopathy syndrome, and squamous cell skin carcinoma. CBC with differential: WBC Date Value Ref Range Status 12/18/2024 5.09 3.70 - 11.00 k/uL Final RBC Date Value Ref Range Status 12/18/2024 4.77 3.90 - 5.20 m/uL Final Hemoglobin Date Value Ref Range Status 12/18/2024 13.8 11.5 - 15.5 g/dL Final Hematocrit Date Value Ref Range Status 12/18/2024 42.9 36.0 - 46.0 % Final MCV Date Value Ref Range Status 12/18/2024 89.9 80.0 - 100.0 fL Final MCH Date Value Ref Range Status 12/18/2024 28.9 26.0 - 34.0 pg Final MCHC Date Value Ref Range Status 12/18/2024 32.2 30.5 - 36.0 g/dL Final RDW-CV Date Value Ref Range Status 12/18/2024 11.9 11.5 - 15.0 % Final Platelet Count Date Value Ref Range Status 12/18/2024 205 150 - 400 k/uL Final MPV Date Value Ref Range Status 12/18/2024 10.5 9.0 - 12.7 fL Final Neutrophils % Date Value Ref Range Status 12/18/2024 52.9 % Final Lymphocytes % Date Value Ref Range Status 12/18/2024 36.9 % Final Monocytes % Date Value Ref Range Status 12/18/2024 5.7 % Final Eosinophils % Date Value Ref Range Status 12/18/2024 3.3 % Final Basophils % Date Value Ref Range Status 12/18/2024 0.8 % Final Abs Neut Date Value Ref Range Status 12/18/2024 2.69 1.45 - 7.50 k/uL Final Abs [place] Date Value Ref Range Status 12/18/2024 0.29 <0.87 k/uL Final Abs Eosin Date Value Ref Range Status 12/18/2024 0.17 <0.46 k/uL Final Abs Baso Date Value Ref Range Status 12/18/2024 0.04 <0.11 k/uL Final CMP: Albumin Date Value Ref Range Status 12/18/2024 4.3 3.9 - 4.9 g/dL Final Calcium, Total Date Value Ref Range Status 01/10/2025 10.4 (H) 8.5 - 10.2 mg/dL Final Bilirubin, Total Date Value Ref Range Status 12/11/2024 0.5 0.2 - 1.3 mg/dL Final Alkaline Phosphatase Date Value Ref Range Status 12/11/2024 166 (H) 34 - 123 U/L Final AST Date Value Ref Range Status 12/18/2024 17 13 - 35 U/L Final ALT Date Value Ref Range Status 12/18/2024 30 7 - 38 U/L Final Glucose Date Value Ref Range Status 01/10/2025 276 (H) 74 - 99 mg/dL Final Comment: The [place] [employer] (ADA) provides guidance for cutoff values for fasting glucose and random glucose. The ADA defines fasting as no caloric intake for at least 8 hours. Fasting plasma glucose results between 100 to 125 [...] Standards of Medical Care in Diabetes 2016, [place] [employer]. Diabetes Care. 2016.39(Suppl 1). BUN Date Value Ref Range Status 01/10/2025 14 7 - 21 mg/dL Final Creatinine Date Value Ref Range Status 01/10/2025 0.59 0.58 - 0.96 mg/dL Final Sodium Date Value Ref Range Status 01/10/2025 135 (L) 136 - 144 mmol/L Final Potassium Date Value Ref Range Status 01/10/2025 4.6 3.7 - 5.1 mmol/L Final Chloride Date Value Ref Range Status 01/10/2025 102 98 - 107 mmol/L Final CO2 Date Value Ref Range Status 01/10/2025 23 22 - 30 mmol/L Final Anion Gap Date Value Ref Range Status 01/10/2025 10 8 - 15 mmol/L Final eGFR- Date Value Ref Range Status 12/21/2021 >60 Final Estimated Glomerular Filtration Rate Date Value Ref Range Status 01/10/2025 110 >=60 mL/min/1.73m Final Comment: Estimated Glomerular Filtration Rate (eGFR) is calculated using the 2020 CKD-EPI creatinine equation. This equation utilizes serum creatinine, sex, and age as parameters. The creatinine assay has traceable calibration to isotope dilution-mass spectrometry. Refer to KDIGO guidelines for clinical interpretation. In patients with unstable renal function, e.g. those with acute kidney injury, the eGFR may not accurately reflect actual GFR. HBsAg Date Value Ref Range Status 06/18/2021 Negative Negative Final Hep B Surface Ab, Qual Date Value Ref Range Status 04/19/2022 Negative Negative Final Comment: No evidence of current or past infection with Hepatitis B virus. Should recent infection be suspected, repeat testing may be considered 3-4 weeks after this draw. Hepatitis B Core Ab, Total Date Value Ref Range Status 04/19/2022 Negative Negative Final Comment: No evidence of current or past infection with Hepatitis B virus. Should recent infection be suspected, repeat testing may be considered 3-4 weeks after this draw. Hep C Antibody IA Date Value Ref Range Status 04/19/2022 Negative Negative Final Comment: The result suggests no evidence of active infection with Hepatitis C virus. Should recent infection be suspected, repeat testing may be considered 4-6 weeks after this draw. TB Result Date Value Ref Range Status 04/19/2022 Negative Final No results found for: HIV1AB Current Outpatient Medications on File Prior to Visit Medication Sig potassium citrate ER (UROCIT-K) 10 mEq (1,080 mg) Take 1 tablet by mouth two times a day. potassium citrate ER (UROCIT-K) 10 mEq (1,080 mg) Take 1 tablet by mouth two times a day. tamsulosin (FLOMAX) 0.4 mg Take 1 capsule by mouth daily at bedtime for 14 days. insulin glargine (LANTUS SOLOSTAR U-100 INSULIN) 100 unit/mL (3 mL) INJECT 20 UNITS UNDER THE SKIN EVERY evening pantoprazole DR (PROTONIX) 20 mg tablet Take 1 tablet by mouth daily before breakfast. Take on empty stomach, 1/2 hr before meal. blood sugar diagnostic (ACCU-CHEK GUIDE TEST STRIPS) test strip USE WITH BLOOD GLUCOSE TEST THREE TIMES A DAY. Lancets (ACCU-CHEK FASTCLIX LANCET DRUM) Use as instructed to check blood glucose up to 2 times daily. E11.9 Insulin Lynch, Disposable, (DROPLET PEN NEEDLE) 32 gauge x 5/32 USE TO INJECT ONE TIME DAILY Lancing Device with Lancets ACCU CHEK FASTCLIX LANCET *DEVICE* use to check blood glucose up to 2 times per day as instructed. E11.9 GVOKE PFS 1-PACK SYRINGE 1 mg/0.2 mL syrg INJECT 0.2 ML UNDER THE SKIN NEEDED. Blood-Glucose Sensor (FREESTYLE GIANFRANCO 3 SENSOR) matilda Apply new sensor every fourteen (14) days to upper arm. E11.9 ustekinumab (STELARA) 45 mg/0.5 mL sub-Q syringe Inject 45 mg (1 syringe) subcutaneously every 12 weeks clobetasol (TEMOVATE) 0.05 % ointment Apply to affected area two times a day. Face. Feet. Two weeks on and two weeks off, per [facility]. fexofenadine HCl (LELA ORAL) Take by mouth. levonorgestrel (MIRENA) 20 mcg/24 hours (8 yrs) 52 mg IUD 1 Each by INTRAUTERINE route as directed. oxyCODONE-acetaminophen (PERCOCET) 5-325 mg tablet TAKE 1 TABLET BY MOUTH 3 TIMES A DAY NEEDED FOR 28 DAYS vits62/FA/om3/dha/epa ( GUMMY ORAL) Take 2 Doses by mouth once daily. Blood-Glucose Meter (ACCU-CHEK DIANNE) Test blood sugar(s) 2 times daily. Dx: Type 2 DM - Controlled E11.9 Insulin: No, Accu-check brand covered by insurance Ascorbic Acid 500 mg chew Take 1,000 mg by mouth once daily. With rosehips elderberry fruit (ELDERBERRY ORAL) Take by mouth. COMPOUNDED PRESCRIPTION 1. V44.2 Ileostomy status (HCC) (primary diagnosis) 2. 555.1 Regional enteritis of large intestine (HCC) Ileostomy Supplies. 1. Pouches, 2. Planges, 3. Felipe seals, 4. Stoma adhesive, 5. Stoma powder, 6. Skin preps, 7. Adhesive remover wipes. Dispense 1 year supplies. tiZANidine (ZANAFLEX) 4 mg tablet Take by mouth. . Takes 1 tablet at bedtime. No current facility-administered medications on file prior to visit. [email or web address] Future Appointments Date Time Provider Department Center 02/11/2025 11:15 AM Pharmacist, Specialtygroup 2 SPCPHARMSVC None 02/13/2025 9:00 AM Alie Stallworth, PERMIT TECHNICIAN.SQL ANALYST END[place]O [place] [facility] 03/13/2025 9:00 AM [facility] RGMOB [place] 03/14/2025 10:00 AM Lara Reeder DO ORMDNA [facility] 03/24/2025 10:00 AM [facility]/18/[facility] 9:00 AM [facility] MOB 1 RUSWS [place] 07/30/2025 3:00 PM Samy Barragan [facility]-C [facility] 08/12/2025 8:00 AM Grayson Phan MD INTMWS [facility] 08/25/2025 10:00 AM Steve Juarez, PERMIT TECHNICIAN.SQL ANALYST [facility] [place] RPh Clinical Pharmacist - Biologics: Allergy, Immunology, and Inflammatory [facility] ; Pool: P [facility] Pool #: [id number] [facility] 02-07-2025 Miscellaneous Notes Sid Lezama will be due for a refill soon. Date of Sid Lezama's last Rheumatology office visit: 10/25/24 Next appointment date: 03/24/25 Last labs: 12/18/2024 Last TB test: TB Result Date Value Ref Range Status 04/19/2022 Negative Final Pended Orders ID Status Description Pended By When Reason [id number] Pended ustekinumab (STELARA) 45 mg/0.5 mL syringe [place] [facility] 02/07/25 1342 If above therapy is being continued, please sign this order request to send refill(s) via eRx to [facility]. Thank you. Ustekinumab (Stelara) - IL-12/23 Inhibitor CBC with differential (baseline); complete metabolic panel (baseline); tuberculosis (TB) screening prior to initiating and during therapy (chest X-ray if TB positive); hepatitis C virus/hepatitis B virus (HBV) screening prior to initiating (all patients), HBV carriers (during and for several months following therapy); HIV screening (baseline) (AAD/NPF [Menter 2019]); monitor for signs/symptoms of infection, posterior reversible encephalopathy syndrome, and squamous cell skin carcinoma. CBC with differential: WBC Date Value Ref Range Status 12/18/2024 5.09 3.70 - 11.00 k/uL Final RBC Date Value Ref Range Status 12/18/2024 4.77 3.90 - 5.20 m/uL Final Hemoglobin Date Value Ref Range Status 12/18/2024 13.8 11.5 - 15.5 g/dL Final Hematocrit Date Value Ref Range Status 12/18/2024 42.9 36.0 - 46.0 % Final MCV Date Value Ref Range Status 12/18/2024 89.9 80.0 - 100.0 fL Final MCH Date Value Ref Range Status 12/18/2024 28.9 26.0 - 34.0 pg Final MCHC Date Value Ref Range Status 12/18/2024 32.2 30.5 - 36.0 g/dL Final RDW-CV Date Value Ref Range Status 12/18/2024 11.9 11.5 - 15.0 % Final Platelet Count Date Value Ref Range Status 12/18/2024 205 150 - 400 k/uL Final MPV Date Value Ref Range Status 12/18/2024 10.5 9.0 - 12.7 fL Final Neutrophils % Date Value Ref Range Status 12/18/2024 52.9 % Final Lymphocytes % Date Value Ref Range Status 12/18/2024 36.9 % Final Monocytes % Date Value Ref Range Status 12/18/2024 5.7 % Final Eosinophils % Date Value Ref Range Status 12/18/2024 3.3 % Final Basophils % Date Value Ref Range Status 12/18/2024 0.8 % Final Abs Neut Date Value Ref Range Status 12/18/2024 2.69 1.45 - 7.50 k/uL Final Abs [place] Date Value Ref Range Status 12/18/2024 0.29 <0.87 k/uL Final Abs Eosin Date Value Ref Range Status 12/18/2024 0.17 <0.46 k/uL Final Abs Baso Date Value Ref Range Status 12/18/2024 0.04 <0.11 k/uL Final CMP: Albumin Date Value Ref Range Status 12/18/2024 4.3 3.9 - 4.9 g/dL Final Calcium, Total Date Value Ref Range Status 01/10/2025 10.4 (H) 8.5 - 10.2 mg/dL Final Bilirubin, Total Date Value Ref Range Status 12/11/2024 0.5 0.2 - 1.3 mg/dL Final Alkaline Phosphatase Date Value Ref Range Status 12/11/2024 166 (H) 34 - 123 U/L Final AST Date Value Ref Range Status 12/18/2024 17 13 - 35 U/L Final ALT Date Value Ref Range Status 12/18/2024 30 7 - 38 U/L Final Glucose Date Value Ref Range Status 01/10/2025 276 (H) 74 - 99 mg/dL Final Comment: The [place] [employer] (ADA) provides guidance for cutoff values for fasting glucose and random glucose. The ADA defines fasting as no caloric intake for at least 8 hours. Fasting plasma glucose results between 100 to 125 [...] Standards of Medical Care in Diabetes 2016, [place] [employer]. Diabetes Care. 2016.39(Suppl 1). BUN Date Value Ref Range Status 01/10/2025 14 7 - 21 mg/dL Final Creatinine Date Value Ref Range Status 01/10/2025 0.59 0.58 - 0.96 mg/dL Final Sodium Date Value Ref Range Status 01/10/2025 135 (L) 136 - 144 mmol/L Final Potassium Date Value Ref Range Status 01/10/2025 4.6 3.7 - 5.1 mmol/L Final Chloride Date Value Ref Range Status 01/10/2025 102 98 - 107 mmol/L Final CO2 Date Value Ref Range Status 01/10/2025 23 22 - 30 mmol/L Final Anion Gap Date Value Ref Range Status 01/10/2025 10 8 - 15 mmol/L Final eGFR- Date Value Ref Range Status 12/21/2021 >60 Final Estimated Glomerular Filtration Rate Date Value Ref Range Status 01/10/2025 110 >=60 mL/min/1.73m Final Comment: Estimated Glomerular Filtration Rate (eGFR) is calculated using the 2020 CKD-EPI creatinine equation. This equation utilizes serum creatinine, sex, and age as parameters. The creatinine assay has traceable calibration to isotope dilution-mass spectrometry. Refer to KDIGO guidelines for clinical interpretation. In patients with unstable renal function, e.g. those with acute kidney injury, the eGFR may not accurately reflect actual GFR. HBsAg Date Value Ref Range Status 06/18/2021 Negative Negative Final Hep B Surface Ab, Qual Date Value Ref Range Status 04/19/2022 Negative Negative Final Comment: No evidence of current or past infection with Hepatitis B virus. Should recent infection be suspected, repeat testing may be considered 3-4 weeks after this draw. Hepatitis B Core Ab, Total Date Value Ref Range Status 04/19/2022 Negative Negative Final Comment: No evidence of current or past infection with Hepatitis B virus. Should recent infection be suspected, repeat testing may be considered 3-4 weeks after this draw. Hep C Antibody IA Date Value Ref Range Status 04/19/2022 Negative Negative Final Comment: The result suggests no evidence of active infection with Hepatitis C virus. Should recent infection be suspected, repeat testing may be considered 4-6 weeks after this draw. TB Result Date Value Ref Range Status 04/19/2022 Negative Final No results found for: HIV1AB Current Outpatient Medications on File Prior to Visit Medication Sig potassium citrate ER (UROCIT-K) 10 mEq (1,080 mg) Take 1 tablet by mouth two times a day. potassium citrate ER (UROCIT-K) 10 mEq (1,080 mg) Take 1 tablet by mouth two times a day. tamsulosin (FLOMAX) 0.4 mg Take 1 capsule by mouth daily at bedtime for 14 days. insulin glargine (LANTUS SOLOSTAR U-100 INSULIN) 100 unit/mL (3 mL) INJECT 20 UNITS UNDER THE SKIN EVERY evening pantoprazole DR (PROTONIX) 20 mg tablet Take 1 tablet by mouth daily before breakfast. Take on empty stomach, 1/2 hr before meal. blood sugar diagnostic (ACCU-CHEK GUIDE TEST STRIPS) test strip USE WITH BLOOD GLUCOSE TEST THREE TIMES A DAY. Lancets (ACCU-CHEK FASTCLIX LANCET DRUM) Use as instructed to check blood glucose up to 2 times daily. E11.9 Insulin Lynch, Disposable, (DROPLET PEN NEEDLE) 32 gauge x 5/32 USE TO INJECT ONE TIME DAILY Lancing Device with Lancets ACCU CHEK FASTCLIX LANCET *DEVICE* use to check blood glucose up to 2 times per day as instructed. E11.9 GVOKE PFS 1-PACK SYRINGE 1 mg/0.2 mL syrg INJECT 0.2 ML UNDER THE SKIN NEEDED. Blood-Glucose Sensor (FREESTYLE GIANFRANCO 3 SENSOR) matilda Apply new sensor every fourteen (14) days to upper arm. E11.9 ustekinumab (STELARA) 45 mg/0.5 mL sub-Q syringe Inject 45 mg (1 syringe) subcutaneously every 12 weeks clobetasol (TEMOVATE) 0.05 % ointment Apply to affected area two times a day. Face. Feet. Two weeks on and two weeks off, per [facility]. fexofenadine HCl (LELA ORAL) Take by mouth. levonorgestrel (MIRENA) 20 mcg/24 hours (8 yrs) 52 mg IUD 1 Each by INTRAUTERINE route as directed. oxyCODONE-acetaminophen (PERCOCET) 5-325 mg tablet TAKE 1 TABLET BY MOUTH 3 TIMES A DAY NEEDED FOR 28 DAYS vits62/FA/om3/dha/epa ( GUMMY ORAL) Take 2 Doses by mouth once daily. Blood-Glucose Meter (ACCU-CHEK DIANNE) Test blood sugar(s) 2 times daily. Dx: Type 2 DM - Controlled E11.9 Insulin: No, Accu-check brand covered by insurance Ascorbic Acid 500 mg chew Take 1,000 mg by mouth once daily. With rosehips elderberry fruit (ELDERBERRY ORAL) Take by mouth. COMPOUNDED PRESCRIPTION 1. V44.2 Ileostomy status (HCC) (primary diagnosis) 2. 555.1 Regional enteritis of large intestine (HCC) Ileostomy Supplies. 1. Pouches, 2. Planges, 3. Felipe seals, 4. Stoma adhesive, 5. Stoma powder, 6. Skin preps, 7. Adhesive remover wipes. Dispense 1 year supplies. tiZANidine (ZANAFLEX) 4 mg tablet Take by mouth. . Takes 1 tablet at bedtime. No current facility-administered medications on file prior to visit. @[email or web address] Future Appointments Date Time Provider Department Center 02/11/2025 11:15 AM Pharmacist, Specialty[facility] 2 SPC[facility]ARMS[facility] None 02/13/2025 9:00 AM Alie Stallworth, PERMIT TECHNICIAN.SQL ANALYST [facility] [place] [facility] 03/13/2025 9:00 AM [facility] RGMOB [facility] 03/14/2025 10:00 AM [facility] 03/24/[facility]25 10:00 AM Scott Gold MD RHEUST [employer] [facility] 07/18/2025 9:00 AM [facility] MOB 1 RUSWS [place] 07/30/2025 3:00 PM Samy Barragan PA-C UROLST [employer] [facility] 08/12/2025 8:00 AM Grayson Phan MD INTMWS [facility] 08/25/2025 10:00 AM Steve Juarez, PERMIT TECHNICIAN.SQL ANALYST OSCAR [place] [facility] [place] RPh Clinical Pharmacist - Biologics: Allergy, Immunology, and Inflammatory [facility] ; Pool: P [facility] Pool #: [id number] documented in this encounter [facility] 02-05-2025 Note HNO ID: [id number] Author: ?, ?, ? Service: ? Author Type: ? Type: Progress Notes Filed: 02/05/2025 12:54 Note Text: POPULATION HEALTH NAVIGATION OUTREACH Action/FYI Patient outreach for HCC gaps; MAMMOGRAM and DIABETIC EYE EXAM. AWV scheduled for 08/12/25 appointment notes updated. Sent mychart to patient to help with gap closure. Reason for Outreach Care Gap/HCC or Scheduling Wellness Visits Care Gaps due: Breast Cancer Screening Diabetic Eye Exam Patient Contacted: Unable or unnecessary to reach patient: MyChart message sent HCC related Updated appointment notes Navigation Signature: Yanelis Sauer February 05, 2025 12:51 PM [facility] 02-05-2025 History of Present illness Narrative POPULATION HEALTH NAVIGATION OUTREACH Action/FYI Patient outreach for HCC gaps; MAMMOGRAM and DIABETIC EYE EXAM. AWV scheduled for 08/12/25 appointment notes updated. Sent mychart to patient to help with gap closure. Reason for Outreach Care Gap/HCC or Scheduling Wellness Visits Care Gaps due: Breast Cancer Screening Diabetic Eye Exam Patient Contacted: Unable or unnecessary to reach patient: MyChart message sent HCC related Updated appointment notes Navigation Signature: Yanelis Sauer February 05, 2025 12:51 PM documented in this encounter [facility] 02-05-2025 Note Patient Outreach (NE TNAV) SID LEZAMA ([id number]) 1975 F Date Time Provider Department 02/05/25 GRAYSON PHAN During your visit today, we recorded the following information about you: Yanelis Duong 02/05/2025 12:54 PM Signed POPULATION HEALTH NAVIGATION OUTREACH Action/FYI Patient outreach for HCC gaps; MAMMOGRAM and DIABETIC EYE EXAM. AWV scheduled for 08/12/25 appointment notes updated. Sent Carelandhart to patient to help with gap closure. Reason for Outreach Care Gap/HCC or Scheduling Wellness Visits Care Gaps due: Breast Cancer Screening Diabetic Eye Exam Patient Contacted: Unable or unnecessary to reach patient: PlayMotionhart message sent HCC related Updated appointment notes Navigation Signature: Yanelis Yost Pss February 05, 2025 12:51 PM Allergies As of Date: 02/05/2025 Noted Allergy Reaction AZITHROMYCIN 03/18/2021 16 - Unknown Comments: thinks a rash DILAUDID (HYDROMORPHONE (BULK)) 08/07/2006 7 - Swelling [...] 7 - Swelling Comments: migraines Date Reviewed: 12/18/2024 Reviewed by: Vinita Calvin, RN - Fully Assessed Reason for Visit: Population Health Navigation Outreach [3910] Cmt: Cristopher Carbajal Prescriptions as of 02/05/2025 - potassium citrate ER (UROCIT-K) 10 mEq (1,080 mg) Take 1 tablet by mouth two times a day. - potassium citrate ER (UROCIT-K) 10 mEq (1,080 mg) Take 1 tablet by mouth two times a day. - tamsulosin (FLOMAX) 0.4 mg Take 1 capsule by mouth daily at bedtime for 14 days. - insulin glargine (LANTUS SOLOSTAR U-100 INSULIN) 100 unit/mL (3 mL) INJECT 20 UNITS UNDER THE SKIN EVERY evening - pantoprazole DR (PROTONIX) 20 mg tablet Take 1 tablet by mouth daily before breakfast. Take on empty stomach, 1/2 hr before meal. - blood sugar diagnostic (ACCU-CHEK GUIDE TEST STRIPS) test strip USE WITH BLOOD GLUCOSE TEST THREE TIMES A DAY. - Lancets (ACCU-CHEK FASTCLIX LANCET DRUM) Use as instructed to check blood glucose up to 2 times daily. E11.9 - Insulin Lynch, Disposable, (DROPLET PEN NEEDLE) 32 gauge x 5/32 USE TO INJECT ONE TIME DAILY - Lancing Device with Lancets ACCU CHEK FASTCLIX LANCET *DEVICE* use to check blood glucose up to 2 times per day as instructed. E11.9 - GVOKE PFS 1-PACK SYRINGE 1 mg/0.2 mL syrg INJECT 0.2 ML UNDER THE SKIN NEEDED. - Blood-Glucose Sensor (FREESTYLE GIANFRANCO 3 SENSOR) matilda Apply new sensor every fourteen (14) days to upper arm. E11.9 - ustekinumab (STELARA) 45 mg/0.5 mL sub-Q syringe Inject 45 mg (1 syringe) subcutaneously every 12 weeks - clobetasol (TEMOVATE) 0.05 % ointment Apply to affected area two times a day. Face. Feet. Two weeks on and two weeks off, per [facility]. - fexofenadine HCl (LELA ORAL) Take by mouth. - levonorgestrel (MIRENA) 20 mcg/24 hours (8 yrs) 52 mg IUD 1 Each by INTRAUTERINE route as directed. - oxyCODONE-acetaminophen (PERCOCET) 5-325 mg tablet TAKE 1 TABLET BY MOUTH 3 TIMES A DAY NEEDED FOR 28 DAYS - vits62/FA/om3/dha/epa ( GUMMY ORAL) Take 2 Doses by mouth once daily. - Blood-Glucose Meter (ACCU-CHEK DIANNE) Test blood sugar(s) 2 times daily. Dx: Type 2 DM - Controlled E11.9 Insulin: No, Accu-check brand covered by insurance - Ascorbic Acid 500 mg chew Take 1,000 mg by mouth once daily. With rosehips - elderberry fruit (ELDERBERRY ORAL) Take by mouth. - COMPOUNDED PRESCRIPTION 1. V44.2 Ileostomy status (HCC) (primary diagnosis) 2. 555.1 Regional enteritis of large intestine (HCC) Ileostomy Supplies. 1. Pouches, 2. Planges, 3. Felipe seals, 4. Stoma adhesive, 5. Stoma powder, 6. Skin preps, 7. Adhesive remover wipes. Dispense 1 year supplies. - tiZANidine (ZANAFLEX) 4 mg tablet Take by mouth. . Takes 1 tablet at bedtime. Problem List As Of Date 02/05/2025 Noted Resolved REG ENTERITIS, LG INTEST [K50.10] 08/07/2006 Retention of urine, unspecified [R33.9] 01/01/2007 11/27/2018 Mixed hyperlipidemia [E78.2] 01/10/2007 Anemia, unspecified [D64.9] 01/10/2007 03/08/2012 Nonspecific abnormal results of liver function *08/24/2007 04/19/2011 Onychia and paronychia of toe [L03.039] 09/26/2007 02/18/2013 ILEOSTOMY STATUS [Z93.2] 09/28/2007 IMPAIRED GLUCOSE JUNE TEST [R73.09] 01/31/2008 04/16/2008 Type 2 diabetes mellitus treated with insulin (*02/12/2008 Fibromyalgia [M79.7] 05/05/2008 Non-alcoholic fatty liver disease [K76.0] 08/24/2007 Mild dysplasia of cervix [N87.0] 10/27/2009 03/08/2012 Fibromyalgia [M79.7] (more content not included)... [facility] 02-04-2025 Telephone encounter Note Left knee Appt notes updated Sarah Cotton [facility] 02-04-2025 Miscellaneous Notes Left knee Appt notes updated Sarah Cotton Updated appt time to 30 minutes to give extended appt -ok to see for knee too -just need to know which knee to put in order Patient is on the wait list for the following: patient has appt on 03/14 for right shoulder, wondering if will also see for her knee within appt to reduce amount of trips to clinic contact number on file Please advise. documented in this encounter [facility] 02-04-2025 Telephone encounter Note Updated appt time to 30 minutes to give extended appt -ok to see for knee too -just need to know which knee to put in order [facility] 02-04-2025 Telephone encounter Note Patient is on the wait list for the following: patient has appt on 03/14 for right shoulder, wondering if will also see for her knee within appt to reduce amount of trips to clinic contact number on file Please advise. [facility] 01-13-2025 Telephone encounter Note Called and spoke with patient. Went over blood work results. Informed her that Potassium is okay. Her body is absorbing the medication, but it is common for the outer shell to come out whole. Advised that she can continue with the tablets, but if she prefers liquid, happy to send that in instead. Patient states that its not causing her any issues, she just wanted to double check. Will continue with tablets at this time. Advised to reach out to office should she have any further questions or concerns. Patient voiced understanding. Raya Roman RN January 13, 2025 3:03 PM [facility] 01-13-2025 Miscellaneous Notes Called and spoke with patient. Went over blood work results. Informed her that Potassium is okay. Her body is absorbing the medication, but it is common for the outer shell to come out whole. Advised that she can continue with the tablets, but if she prefers liquid, happy to send that in instead. Patient states that its not causing her any issues, she just wanted to double check. Will continue with tablets at this time. Advised to reach out to office should she have any further questions or concerns. Patient voiced understanding. Raya Roman RN January 13, 2025 3:03 PM Patient calling to speak with an RN regarding potassium citrate. PT states the medication is coming out whole. PT asking if she should discontinue medication. Please call or send MC message to advise. [phone] Patient calling with an issue concerning potassium citrate ER (UROCIT-K) 10 mEq (1,080 mg) It is coming out whole in her ileostomy. Please call to advise. documented in this encounter [facility] 01-13-2025 Telephone encounter Note Patient calling to speak with an RN regarding potassium citrate. PT states the medication is coming out whole. PT asking if she should discontinue medication. Please call or send MC message to advise. [phone] [facility] 01-09-2025 Telephone encounter Note Called and spoke with patient to inform her that BMP lab order has been placed. She can have this done at her earliest convenience. Patient voice understanding. Raya Roman RN January 09, 2025 11:32 AM [facility] 01-09-2025 Miscellaneous Notes Called and spoke with patient to inform her that BMP lab order has been placed. She can have this done at her earliest convenience. Patient voice understanding. Raya Roman RN January 09, 2025 11:32 AM Patient at the lab to have blood drawn per Samy O'Rayna; but there are no orders. Please enter orders and call patient to advise. documented in this encounter [facility] 01-09-2025 Telephone encounter Note Patient at the lab to have blood drawn per Samy O'Rayna; but there are no orders. Please enter orders and call patient to advise. [facility] 01-08-2025 Telephone encounter Note The following approved medication requests have been transmitted electronically. Requested Prescriptions Signed Prescriptions Disp Refills valACYclovir (VALTREX) 1 gram tablet 4 tablet 2 Sig: Take 2 tablets by mouth every 12 hours for 2 doses. Authorizing Provider: GRAYSON PHAN MD [facility] 01-08-2025 Miscellaneous Notes The following approved medication requests have been transmitted electronically. Requested Prescriptions Signed Prescriptions Disp Refills valACYclovir (VALTREX) 1 gram tablet 4 tablet 2 Sig: Take 2 tablets by mouth every 12 hours for 2 doses. Authorizing Provider: GRAYSON PHAN MD Patient reports she has had several cold sore outbreaks in last month, involving her bottom lip and chin area. Asking if PCP would reorder her Valtrex for her. Pended. Please call patient with update. [phone] Bella Britt RN documented in this encounter [facility] 01-07-2025 Telephone encounter Note Patient reports she has had several cold sore outbreaks in last month, involving her bottom lip and chin area. Asking if PCP would reorder her Valtrex for her. Pended. Please call patient with update. [phone] Bella Britt RN [facility] 12-31-2024 Telephone encounter Note Patient calling with an issue concerning potassium citrate ER (UROCIT-K) 10 mEq (1,080 mg) It is coming out whole in her ileostomy. Please call to advise. [facility] 12-26-2024 Note HNO ID: [id number] Author: ANTONIETA BOYER RN Service: ? Author Type: Registered Nurse Type: Progress Notes Filed: 12/26/2024 09:42 Note Text: Transitional Care Management (TCM) Follow-Up Note PCP Update / Actionable Items N/A - No specialty updates needed Patient Source: In-Network Discharge Follow-up outreach: TCM enrolled patient Outreach Summary: TCM FU CALL DAY 14 Pt completed FU with Urology 12/18/24. Pt states feeling much better. Declines additional calls for TCM Pt states she is 49 yrs old and capable of following up with providers and does not need future post ED follow up calls. Denies any further needs or concerns. Contact: Contact made with patient: Yes Spoke to: Patient Validation: Validated the person spoken to is actively involved in the patient's care. The patient was identified by Name and Date of . I'd like to get an update on how you're doing since our last phone call. Is now a good time to talk? Yes Symptoms: Are you feeling about the same, better or worse since leaving the hospital? Better Weekly Outreach: 2nd Outreach Medications: Do you have any questions about taking your medications, including which medications you should be on, or do you need refills on your medications? No Patient Questions / Concerns: Do you have any questions related to your discharge? No Appointment / TCM Follow-Up: Have you had a follow-up visit with your Primary Care Provider or Specialist since you were discharged? No Do you need any assistance with scheduling or changing your follow-up appointments? Patient already has an appointment scheduled [facility]: Has Food and Housing been addressed in [employer] in the past 3 months? Yes EDUCATION--: Patient and family educated on issues/questions related to reason for admission, transition of care topics, and follow-up needed upon discharge. Antonieta Boyer RN December 26, 2024 9:40 AM [facility] 12-26-2024 History of Present illness Narrative Transitional Care Management (TCM) Follow-Up Note PCP Update / Actionable Items N/A - No specialty updates needed Patient Source: In-Network Discharge Follow-up outreach: TCM enrolled patient Outreach Summary: TCM FU CALL DAY 14 Pt completed FU with Urology 12/18/24. Pt states feeling much better. Declines additional calls for TCM Pt states she is 49 yrs old and capable of following up with providers and does not need future post ED follow up calls. Denies any further needs or concerns. Contact: Contact made with patient: Yes Spoke to: Patient Validation: Validated the person spoken to is actively involved in the patient's care. The patient was identified by Name and Date of . I'd like to get an update on how you're doing since our last phone call. Is now a good time to talk? Yes Symptoms: Are you feeling about the same, better or worse since leaving the hospital? Better Weekly Outreach: 2nd Outreach Medications: Do you have any questions about taking your medications, including which medications you should be on, or do you need refills on your medications? No Patient Questions / Concerns: Do you have any questions related to your discharge? No Appointment / TCM Follow-Up: Have you had a follow-up visit with your Primary Care Provider or Specialist since you were discharged? No Do you need any assistance with scheduling or changing your follow-up appointments? Patient already has an appointment scheduled SDOH: Has Food and Housing been addressed in [employer] in the past 3 months? Yes EDUCATION--: Patient and family educated on issues/questions related to reason for admission, transition of care topics, and follow-up needed upon discharge. Antonieta Boyer RN December 26, 2024 9:40 AM documented in this encounter [facility] 12-26-2024 Note Patient Outreach ([facility] SID LEZAMA ([id number]) 1975 F Date Time Provider Department 12/26/24 ANTONIETA BOYERMichael During your visit today, we recorded the following information about you: Antonieta Boyer RN 12/26/2024 9:42 AM Signed Transitional Care Management (TCM) Follow-Up Note PCP Update / Actionable Items N/A - No specialty updates needed Patient Source: In-Network Discharge Follow-up outreach: TCM enrolled patient Outreach Summary: TCM FU CALL DAY 14 Pt completed FU with Urology 12/18/24. Pt states feeling much better. Declines additional calls for TCM Pt states she is 49 yrs old and capable of following up with providers and does not need future post ED follow up calls. Denies any further needs or concerns. Contact: Contact made with patient: Yes Spoke to: Patient Validation: Validated the person spoken to is actively involved in the patient's care. The patient was identified by Name and Date of . I'd like to get an update on how you're doing since our last phone call. Is now a good time to talk? Yes Symptoms: Are you feeling about the same, better or worse since leaving the hospital? Better Weekly Outreach: 2nd Outreach Medications: Do you have any questions about taking your medications, including which medications you should be on, or do you need refills on your medications? No Patient Questions / Concerns: Do you have any questions related to your discharge? No Appointment / TCM Follow-Up: Have you had a follow-up visit with your Primary Care Provider or Specialist since you were discharged? No Do you need any assistance with scheduling or changing your follow-up appointments? Patient already has an appointment scheduled SDOH: Has Food and Housing been addressed in [employer] in the past 3 months? Yes EDUCATION--: Patient and family educated on issues/questions related to reason for admission, transition of care topics, and follow-up needed upon discharge. Antonieta Boyer RN December 26, 2024 9:40 AM Allergies As of Date: 12/26/2024 Noted Allergy Reaction AZITHROMYCIN 03/18/2021 16 - Unknown Comments: thinks a rash DILAUDID (HYDROMORPHONE (BULK)) 08/07/2006 7 - Swelling [...] 7 - Swelling Comments: migraines Date Reviewed: 12/18/2024 Reviewed by: Vinita Calvin RN - Fully Assessed Reason for Visit: Transition Of Care [4074] Cmt: TCM FU CALL DAY 14 Prescriptions as of 12/26/2024 - potassium citrate ER (UROCIT-K) 10 mEq (1,080 mg) Take 1 tablet by mouth two times a day. - potassium citrate ER (UROCIT-K) 10 mEq (1,080 mg) Take 1 tablet by mouth two times a day. - tamsulosin (FLOMAX) 0.4 mg Take 1 capsule by mouth daily at bedtime for 14 days. - semaglutide (OZEMPIC) 0.25 mg or 0.5 mg (2 mg/3 mL) pen Inject 0.5 mg subcutaneously one time a week. - insulin glargine (LANTUS SOLOSTAR U-100 INSULIN) 100 unit/mL (3 mL) INJECT 20 UNITS UNDER THE SKIN EVERY evening - predniSONE (DELTASONE) 10 mg tablet Take in the morning with food. Take 2 tabs daily x 3 days, then 1 tab daily x 3 days, then stop. - pantoprazole DR (PROTONIX) 20 mg tablet Take 1 tablet by mouth daily before breakfast. Take on empty stomach, 1/2 hr before meal. - blood sugar diagnostic (ACCU-CHEK GUIDE TEST STRIPS) test strip USE WITH BLOOD GLUCOSE TEST THREE TIMES A DAY. - Lancets (ACCU-CHEK FASTCLIX LANCET DRUM) Use as instructed to check blood glucose up to 2 times daily. E11.9 - Insulin Lynch, Disposable, (DROPLET PEN NEEDLE) 32 gauge x 5/32 USE TO INJECT ONE TIME DAILY - Lancing Device with Lancets ACCU CHEK FASTCLIX LANCET *DEVICE* use to check blood glucose up to 2 times per day as instructed. E11.9 - GVOKE PFS 1-PACK SYRINGE 1 mg/0.2 mL syrg INJECT 0.2 ML UNDER THE SKIN NEEDED. - Blood-Glucose Sensor (FREESTYLE GIANFRANCO 3 SENSOR) matilda Apply new sensor every fourteen (14) days to upper arm. E11.9 - Blood-Glucose Meter,Continuous (FREESTYLE GIANFRANCO 3 READER) [facility] [place] Use to check blood sugar at least four (4) times daily. - ustekinumab (STELARA) 45 mg/0.5 mL sub-Q syringe Inject 45 mg (1 syringe) subcutaneously every 12 weeks - clobetasol (TEMOVATE) 0.05 % ointment Apply to affected area two times a day. Face. Feet. Two weeks on and two weeks off, per [facility]. - fexofenadine HCl (LELA ORAL) Take by mouth. - levonorgestrel (MIRENA) 20 mcg/24 hours (8 yrs) 52 mg IUD 1 Each by INTRAUTERINE route as directed. - oxyCODONE-acetaminophen (PERCOCET) (more content not included)... [facility] 12-18-2024 Instructions Samy Barragan PA-C - 12/18/2024 11:18 AM EST - Follow up in July with and Kimi 24-hour urine collection - Blood work in 2-3 weeks to monitor potassium documented in this encounter [facility] 12-18-2024 Note HNO ID: [id number] Author: SAMY BARRAGAN PA-C Service: ? Author Type: Physician Cmo Type: Progress Notes Filed: 12/19/2024 16:28 Note Text: UROLOGY NOTE Chief complaint: kidney stones Sid Lezama is a 48 year old female who presents today for kidney stone management and prevention counseling. Interval hx May 15, 2024 Patient presented to ED on 05/06/24 due to left flank pain consistent with previous kidney stone pain. CT from earlier ED visit in January showed L renal stone, so treated as migrating stone. Finished the prescribed Flomax. Crohn's and ileostomy. Does not take calcium. Pt currently: no fever, no chills, no nausea, no vomiting, no dysuria, no gross hematuria, no renal colic - New US ordered to assess for current stone(s) burden / passage - Patient is interested in 24-hour urine collection and dietary analysis for stone prevention. Litholink kit to be sent to and completed by patient. - Metabolic lab work ordered to assess underlying stone and/or hypercalcinuria etiologies. RTC in 1.5 months w/ new LL, labs, and US. Interval hx July 17, 2024 Patient returns to clinic having completed Litholink and unremarkable metabolic lab work. She presented to the ED on 06/02/24 due to passing a left distal ureteral stone (believes she passed it that night), with no pain since then. Notes that her chiropractor gave her a tincture to dissolve kidney stones as well. - Reviewed overall unremarkable metabolic lab work - Reviewed Litholink 24-hour urine collection results. Emphasis on increasing fluid (water!) intake, increasing dietary citrus, and decreasing/monitoring high oxalate foods and pair with calcium rich foods. - Discussed potassium citrate 10mEq BID as possible treatment option; she will confer with her holistic provider. - New US in about 1 year to reassess Interval hx December 18, 2024 Patient returns to clinic having recently passed a ureteral stone on the right side, which nearly needed a ureteroscopy upon ER on 12/11/24. Was taking Arginex stone dissolver. There is no height or weight on file to calculate BMI. 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 Lumbago 01/10/2007 Myalgia and myositis, unspecified Pain management Dr Stern Nonalcoholic fatty liver disease 08/24/2007 Other and unspecified hyperlipidemia 01/10/2007 PMH - PAST MEDICAL HISTORY OF Cx scarred to post vag wall/difficult exam Pneumonia, organism unspecified(486) 01/10/2007 Regional enteritis of large intestine (HCC) 08/07/2006 Retention of urine, unspecified 01/01/2007 Rheumatoid arthritis(714.0) Dr. Mc, [facility] Type II or unspecified type diabetes mellitus without mention of complication, not stated as uncontrolled Ureterolithiasis 07/18/2019 PAST SURGICAL HISTORY Procedure Laterality Date ADENOIDECTOMY PRIMARY Adenoidectomy ARTHROSCOPY KNEE DIAGNOSTIC W/WO SYNOVIAL BX SPX 1989 Arthroscopy, knee, left [facility] INCL FLUOR GDNCE DX W/CELL WASHG SPX 01/2007 Bronchoscopy EGD 05/02/2023 EPIDURAL 2011 multiple ones done by Dr. Beckett ILEOSCOPY 05/02/2023 PAST SURGICAL HISTORY OF 06/2000 ILEOSTOMY/COLECTOMY PAST SURGICAL HISTORY OF 1993 CRYOCAUTERY/ MILD DYSPLASIA PAST SURGICAL HISTORY OF 03/2006 Abdominal abscess with anal fistula PRCTECT COMPL W/STOT/TOT COLCT W/VENEER JOINER BXS 12/05/2006 AP endoanal proctectomy SHOULDER ARTHROSCOPY/SURGERY Left 05/06/2020 Rotator cuff debridement, subacromial decompression/arthroplasty TONSILLECTOMY PRIMARY/SECONDARY Tonsillectomy Family History Problem Relation Age of Onset Alcohol/Drug Mother Hypertension Mother COPD other (vascular disease) Mother other (sleep apnea) Mother other (heart murmur) Mother Alcohol/Drug Father Cancer Father liver Asthma Brother Hypertension Daughter Diabetes Maternal Grandmother Stroke Maternal Grandmother Heart Maternal Grandmother Emphysema Paternal Grandmother Diabetes Paternal Grandfather Macular Degen Paternal Grandfather Anesthesia Problems No Family History Social History Tobacco Use Smoking status: Former Current packs/day: 0.00 Average packs/day: 1 pack/day for 16.0 years (16.0 ttl pk-yrs) Types: Cigarettes Start date: 12/04/1990 Quit date: 12/04/2006 Years since quittin.0 Smokeless tobacco: Never Vaping Use Vaping status: Never Used Substance Use Topics Alcohol use: No Drug use: No Current Outpatient Medications on File Prior to Visit Medication Sig tamsulosin (FLOMAX) 0.4 mg Take 1 capsule by mouth daily (more content not included)... [facility] 12-18-2024 History of Present illness Narrative UROLOGY NOTE Chief complaint: kidney stones Sid Lezama is a 48 year old female who presents today for kidney stone management and prevention counseling. Interval hx May 15, 2024 Patient presented to ED on 05/06/24 due to left flank pain consistent with previous kidney stone pain. CT from earlier ED visit in January showed L renal stone, so treated as migrating stone. Finished the prescribed Flomax. Crohn's and ileostomy. Does not take calcium. Pt currently: no fever, no chills, no nausea, no vomiting, no dysuria, no gross hematuria, no renal colic - New US ordered to assess for current stone(s) burden / passage - Patient is interested in 24-hour urine collection and dietary analysis for stone prevention. Litholink kit to be sent to and completed by patient. - Metabolic lab work ordered to assess underlying stone and/or hypercalcinuria etiologies. RTC in 1.5 months w/ new LL, labs, and US. Interval hx July 17, 2024 Patient returns to clinic having completed Litholink and unremarkable metabolic lab work. She presented to the ED on 06/02/24 due to passing a left distal ureteral stone (believes she passed it that night), with no pain since then. Notes that her chiropractor gave her a tincture to dissolve kidney stones as well. - Reviewed overall unremarkable metabolic lab work - Reviewed Litholink 24-hour urine collection results. Emphasis on increasing fluid (water!) intake, increasing dietary citrus, and decreasing/monitoring high oxalate foods and pair with calcium rich foods. - Discussed potassium citrate 10mEq BID as possible treatment option; she will confer with her holistic provider. - New US in about 1 year to reassess Interval hx December 18, 2024 Patient returns to clinic having recently passed a ureteral stone on the right side, which nearly needed a ureteroscopy upon ER on 12/11/24. Was taking Arginex stone dissolver. There is no height or weight on file to calculate BMI. 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 Lumbago 01/10/2007 Myalgia and myositis, unspecified Pain management Dr Stern Nonalcoholic fatty liver disease 08/24/2007 Other and unspecified hyperlipidemia 01/10/2007 PMH - PAST MEDICAL HISTORY OF Cx scarred to post vag wall/difficult exam Pneumonia, organism unspecified(486) 01/10/2007 Regional enteritis of large intestine (HCC) 08/07/2006 Retention of urine, unspecified 01/01/2007 Rheumatoid arthritis(714.0) Dr. Mc, [facility] Type II or unspecified type diabetes mellitus without mention of complication, not stated as uncontrolled Ureterolithiasis 07/18/2019 PAST SURGICAL HISTORY Procedure Laterality Date ADENOIDECTOMY PRIMARY <AGE 11 1986 Adenoidectomy ARTHROSCOPY KNEE DIAGNOSTIC W/WO SYNOVIAL BX SPX 1989 Arthroscopy, knee, left [facility] INCL FLUOR GDNCE DX W/CELL WASHG SPX 01/2007 Bronchoscopy EGD 05/02/2023 EPIDURAL 2011 multiple ones done by Dr. Beckett ILEOSCOPY 05/02/2023 PAST SURGICAL HISTORY OF 06/2000 ILEOSTOMY/COLECTOMY PAST SURGICAL HISTORY OF 1993 CRYOCAUTERY/ MILD DYSPLASIA PAST SURGICAL HISTORY OF 03/2006 Abdominal abscess with anal fistula PRCTECT COMPL W/STOT/TOT COLCT W/VENEER JOINER BXS 12/05/2006 AP endoanal proctectomy SHOULDER ARTHROSCOPY/SURGERY Left 05/06/2020 Rotator cuff debridement, subacromial decompression/arthroplasty TONSILLECTOMY PRIMARY/SECONDARY <AGE 11 1986 Tonsillectomy Family History Problem Relation Age of Onset Alcohol/Drug Mother Hypertension Mother COPD other (vascular disease) Mother other (sleep apnea) Mother other (heart murmur) Mother Alcohol/Drug Father Cancer Father liver Asthma Brother Hypertension Daughter Diabetes Maternal Grandmother Stroke Maternal Grandmother Heart Maternal Grandmother Emphysema Paternal Grandmother Diabetes Paternal Grandfather Macular Degen Paternal Grandfather Anesthesia Problems No Family History Social History Tobacco Use Smoking status: Former Current packs/day: 0.00 Average packs/day: 1 pack/day for 16.0 years (16.0 ttl pk-yrs) Types: Cigarettes Start date: 12/04/1990 Quit date: 12/04/2006 Years since quittin.0 Smokeless tobacco: Never Vaping Use Vaping status: Never Used Substance Use Topics Alcohol use: No Drug use: No Current Outpatient Medications on File Prior to Visit Medication Sig tamsulosin (FLOMAX) 0.4 mg Take 1 capsule by mouth daily at bedtime for 14 days. semaglutide (OZEMPIC) 0.25 mg or 0.5 mg (2 mg/3 mL) pen Inject 0.5 mg subcutaneously one time a week. insulin glargine (LANTUS SOLOSTAR U-100 INSULIN) 100 unit/mL (3 mL) INJECT 20 UNITS UNDER THE SKIN EVERY evening pantoprazole DR (PROTONIX) 20 mg tablet Take 1 tablet by mouth daily before breakfast. Take on empty stomach, 1/2 hr before meal. blood sugar diagnostic (ACCU-CHEK GUIDE TEST STRIPS) test strip USE WITH BLOOD GLUCOSE TEST THREE TIMES A DAY. Lancets (ACCU-CHEK FASTCLIX LANCET DRUM) Use as instructed to check blood glucose up to 2 times daily. E11.9 Insulin Lynch, Disposable, (DROPLET PEN NEEDLE) 32 gauge x 5/32 USE TO INJECT ONE TIME DAILY Lancing Device with Lancets ACCU CHEK FASTCLIX LANCET *DEVICE* use to check blood glucose up to 2 times per day as instructed. E11.9 GVOKE PFS 1-PACK SYRINGE 1 mg/0.2 mL syrg INJECT 0.2 ML UNDER THE SKIN NEEDED. Blood-Glucose Sensor (FREESTYLE GIANFRANCO 3 SENSOR) matilda Apply new sensor every fourteen (14) days to upper arm. E11.9 ustekinumab (STELARA) 45 mg/0.5 mL sub-Q syringe Inject 45 mg (1 syringe) subcutaneously every 12 weeks clobetasol (TEMOVATE) 0.05 % ointment Apply to affected area two times a day. Face. Feet. Two weeks on and two weeks off, per [facility]. fexofenadine HCl (LELA ORAL) Take by mouth. levonorgestrel (MIRENA) 20 mcg/24 hours (8 yrs) 52 mg IUD 1 Each by INTRAUTERINE route as directed. oxyCODONE-acetaminophen (PERCOCET) 5-325 mg tablet TAKE 1 TABLET BY MOUTH 3 TIMES A DAY NEEDED FOR 28 DAYS [id number]/FA/om3/dha/epa ( GUMMY ORAL) Take 2 Doses by mouth once daily. Blood-Glucose Meter (ACCU-CHEK DIANNE) Test blood sugar(s) 2 times daily. Dx: Type 2 DM - Controlled E11.9 Insulin: No, Accu-check brand covered by insurance Ascorbic Acid 500 mg chew Take 1,000 mg by mouth once daily. With rosehips elderberry fruit (ELDERBERRY ORAL) Take by mouth. COMPOUNDED PRESCRIPTION 1. V44.2 Ileostomy status (HCC) (primary diagnosis) 2. 555.1 Regional enteritis of large intestine ([facility]) Ileostomy Supplies. 1. Pouches, 2. Planges, 3. Felipe seals, 4. Stoma adhesive, 5. Stoma powder, 6. Skin preps, 7. Adhesive remover wipes. Dispense 1 year supplies. tiZANidine (ZANAFLEX) 4 mg tablet Take by mouth. . Takes 1 tablet at bedtime. predniSONE (DELTASONE) 10 mg tablet Take in the morning with food. Take 2 tabs daily x 3 days, then 1 tab daily x 3 days, then stop. Blood-Glucose Meter,Continuous (FREESTYLE GIANFRANCO 3 READER) [facility] [place] Use to check blood sugar at least four (4) times daily. No current facility-administered medications on file prior to visit. ALLERGIES Allergen Reactions Azithromycin Unknown thinks a rash Dilaudid [Hydromorp* Swelling migraines Levemir [Insulin De* Other: See Comments Urine turned dark and smelly Methadone Swelling migraine Morphine Swelling migraines Remicade [Inflixima* Intolerance, Rash broke out in blisters with the 6th dose. Ultram [Tramadol Hc* Swelling migraines Admission on 12/11/2024, Discharged on 12/12/2024 Component Date Value Ref Range Status Culture, Urine 12/11/2024 No growth (<1,000 CFU/ml) Final WBC 12/12/2024 9.98 3.70 - 11.00 k/uL Final RBC 12/12/2024 4.55 3.90 - 5.20 m/uL Final Hemoglobin 12/12/2024 13.3 11.5 - 15.5 g/dL Final Hematocrit 12/12/2024 39.6 36.0 - 46.0 % Final MCV 12/12/2024 87.0 80.0 - 100.0 fL Final MCH 12/12/2024 29.2 26.0 - 34.0 pg Final MCHC 12/12/2024 33.6 30.5 - 36.0 g/dL Final RDW-CV 12/12/2024 11.9 11.5 - 15.0 % Final Platelet Count 12/12/2024 206 150 - 400 k/uL Final MPV 12/12/2024 10.6 9.0 - 12.7 fL Final Absolute nRBC 12/12/2024 <0.01 <0.01 k/uL Final Glucose 12/12/2024 191 (H) 74 - 99 mg/dL Final The [place] [employer] (ADA) provides guidance for cutoff values for fasting glucose and random glucose. The ADA defines fasting as no caloric intake for at least 8 hours. Fasting plasma glucose results between 100 to 125 [...] Standards of Medical Care in Diabetes 2016, [place] [employer]. Diabetes Care. 2016.39(Suppl 1). BUN 12/12/2024 8 7 - 21 mg/dL Final Creatinine 12/12/2024 0.64 0.58 - 0.96 mg/dL Final Sodium 12/12/2024 141 136 - 144 mmol/L Final Potassium 12/12/2024 3.8 3.7 - 5.1 mmol/L Final Chloride 12/12/2024 107 98 - 107 mmol/L Final CO2 12/12/2024 24 22 - 30 mmol/L Final Anion Gap 12/12/2024 10 8 - 15 mmol/L Final Calcium, Total 12/12/2024 9.6 8.5 - 10.2 mg/dL Final Estimated Glomerular Filtration Ra* 12/12/2024 108 >=60 mL/min/1.73m Final Estimated Glomerular Filtration Rate (eGFR) is calculated using the 2020 CKD-EPI creatinine equation. This equation utilizes serum creatinine, sex, and age as parameters. The creatinine assay has traceable calibration to isotope dilution-mass spectrometry. Refer to KDIGO guidelines for clinical interpretation. In patients with unstable renal function, e.g. those with acute kidney injury, the eGFR may not accurately reflect actual GFR. HCG Qualitative, Urine 12/12/2024 Negative Negative Final This test is intended to aid in the early detection of . Very dilute urine samples, as indicated by a low specific gravity, may not contain printing sales representative levels of hCG. This test detects intact hCG only. This test does not reliably detect hCG degradation products, including free-beta subunit and beta-core fragment. Therefore, this test may show reduced reactivity in urine after 8 weeks gestation. A number of conditions other than , including trophoblastic disease and certain non-trophoblastic neoplasms cause elevated levels of hCG. As with any assay employing mouse antibodies, the possibility exists for interference by human anti-mouse antibodies (HAMA) in the specimen. The test provides a presumptive diagnosis for . Images: CT 12/11/24: Kidneys: There is a 1 mm calculus at the right UVJ as seen on axial image 90. This causes moderate right-sided hydronephrosis and hydroureter without significant perinephric stranding. No other urinary tract calculi. No left-sided hydronephrosis. No renal mass. CT 06/02/24: RIGHT kidney: No RIGHT renal calculus, mass, or hydronephrosis. LEFT kidney: 4 mm LEFT UVJ calculus (2:90) with mild upstream left-sided hydroureteronephrosis. No LEFT renal calculus. Stone Panel/ Litholink: Latest Ref Rng 06/13/2024 CYSTINE, URINE, QUALITATIVE Negative Neg URINE VOLUME (PRESERVED) 500 - 4,000 mL/24 hr 1,020 CALCIUM OXALATE SATURATION 6.00 - 10.00 11.67 (H) CALCIUM, URINE <200 mg/24 hr 202 (H) OXALATE, URINE 20 - 40 mg/24 hr 19 (L) Citrate, Urine >550 mg/24 hr 503 (L) CALCIUM PHOSPHATE SATURATION 0.50 - 2.00 0.48 (L) PH, 24 HR, URINE 5.800 - 6.200 5.403 (L) URIC ACID SATURATION <1.00 1.92 (H) URIC ACID, URINE <750 mg/24 hr 374 SODIUM, URINE 50 - 150 mmol/24 hr 28 (L) POTASSIUM, URINE 20 - 100 mmol/24 hr 41 Magnesium, Urine 30 - 120 mg/24 hr 33 Phosphorus, Urine 600 - 1,200 mg/24 hr 400 (L) AMMONIUM, URINE 15 - 60 mmol/24 hr 30 CHLORIDE, URINE 70 - 250 mmol/24 hr 55 (L) SULFATE, URINE 20 - 80 meq/24 hr 15 (L) Urea Nitrogen, Urine 6.00 - 14.00 g/24 hr 3.47 (L) Protein Catabolic Rate 0.8 - 1.4 g/kg/24 hr 0.5 (L) CREATININE, URINE Not Applic. mg/24 hr 831 CREATININE/KG BODY WEIGHT 8.7 - 20.3 mg/24 hr/kg 11.9 CALCIUM/KG BODY WEIGHT <4.0 mg/24 hr/kg 2.9 CALCIUM/CREATININE RATIO 51 - 262 mg/g creat 242 Comment Note Legend: (H) High (L) Low Assessment/Plan: Encounter Diagnosis ICD-10-CM 1. Nephrolithiasis N20.0 2. Screening for genitourinary condition Z13.89 UA DIP, URINE (POC) - Reviewed recent CT showing right distal ureteral stone - Discussed starting potassium citrate twice daily for stone prevention, and she is agreeable. - BMP in about 2-3 weeks to monitor potassium - Follow up in fall with new LL and US RTC in 6-8 months w/ new LL and imaging. I spent a total of 15 minutes on the date of the service which included preparing to see the patient, [id number] patient care, completing clinical documentation, obtaining and/or reviewing separately obtained history, counseling and educating the patient/family/caregiver, ordering medications, tests, or procedures, and communicating results to the patient/family/caregiver. KARI Driverally signed by Samy Barragan PA-C at 12/19/2024 4:28 PM EST documented in this encounter [facility] 12-17-2024 Note HNO ID: [id number] Author: RIVERA CUMMINGS MA Service: ? Author Type: Shaker Operator Type: Progress Notes Filed: 12/17/2024 12:18 Note Text: POPULATION HEALTH NAVIGATION OUTREACH Action/FYI Spoke with patient Due for follow up-declines HM due A1c and urine albumin-has lab appt scheduled Reason for Outreach Care Gap/HCC or Scheduling Wellness Visits Care Gaps due: Follow-up Appointment Patient Contacted: Spoke to patient/parent/or legal guardian Patient identified by name and : Yes Care Gap/HCC/Scheduling Wellness actions taken: Patient declined: Doesn't feel it's necessary Navigation Signature: Rivera Cummings MA December 17, 2024 9:21 AM [facility] 12-17-2024 History of Present illness Narrative POPULATION HEALTH NAVIGATION OUTREACH Action/FYI Spoke with patient Due for follow up-declines HM due A1c and urine albumin-has lab appt scheduled Reason for Outreach Care Gap/HCC or Scheduling Wellness Visits Care Gaps due: Follow-up Appointment Patient Contacted: Spoke to patient/parent/or legal guardian Patient identified by name and : Yes Care Gap/HCC/Scheduling Wellness actions taken: Patient declined: Doesn't feel it's necessary Navigation Signature: Rivera Cummings MA December 17, 2024 9:21 AM documented in this encounter [facility] 12-17-2024 Note Patient Outreach (EVERETT TNAV) SID LEZAMA ([id number]) 1975 F Date Time Provider Department 12/17/24 RIVERA CUMMINGS During your visit today, we recorded the following information about you: Rivera Cummings MA 12/17/2024 12:18 PM Signed POPULATION HEALTH NAVIGATION OUTREACH Action/FYI Spoke with patient Due for follow up-declines HM due A1c and urine albumin-has lab appt scheduled Reason for Outreach Care Gap/HCC or Scheduling Wellness Visits Care Gaps due: Follow-up Appointment Patient Contacted: Spoke to patient/parent/or legal guardian Patient identified by name and : Yes Care Gap/HCC/Scheduling Wellness actions taken: Patient declined: Doesn't feel it's necessary Navigation Signature: Rivera Cummings MA December 17, 2024 9:21 AM Allergies As of Date: 12/17/2024 Noted Allergy Reaction AZITHROMYCIN 03/18/2021 16 - Unknown Comments: thinks a rash DILAUDID (HYDROMORPHONE (BULK)) 08/07/2006 7 - Swelling [...] 7 - Swelling Comments: migraines Date Reviewed: 12/11/2024 Reviewed by: Bradly Marshall, RN - Fully Assessed Reason for Visit: Population Health Navigation Outreach [3910] Cmt: [employer] High Risk Attempt 2 Prescriptions as of 12/17/2024 - tamsulosin (FLOMAX) 0.4 mg Take 1 capsule by mouth daily at bedtime for 14 days. - semaglutide (OZEMPIC) 0.25 mg or 0.5 mg (2 mg/3 mL) pen Inject 0.5 mg subcutaneously one time a week. - insulin glargine (LANTUS SOLOSTAR U-100 INSULIN) 100 unit/mL (3 mL) INJECT 20 UNITS UNDER THE SKIN EVERY evening - predniSONE (DELTASONE) 10 mg tablet Take in the morning with food. Take 2 tabs daily x 3 days, then 1 tab daily x 3 days, then stop. - pantoprazole DR (PROTONIX) 20 mg tablet Take 1 tablet by mouth daily before breakfast. Take on empty stomach, 1/2 hr before meal. - blood sugar diagnostic (ACCU-CHEK GUIDE TEST STRIPS) test strip USE WITH BLOOD GLUCOSE TEST THREE TIMES A DAY. - Lancets (ACCU-CHEK FASTCLIX LANCET DRUM) Use as instructed to check blood glucose up to 2 times daily. E11.9 - Insulin Lynch, Disposable, (DROPLET PEN NEEDLE) 32 gauge x 5/32 USE TO INJECT ONE TIME DAILY - Lancing Device with Lancets ACCU CHEK FASTCLIX LANCET *DEVICE* use to check blood glucose up to 2 times per day as instructed. E11.9 - GVOKE PFS 1-PACK SYRINGE 1 mg/0.2 mL syrg INJECT 0.2 ML UNDER THE SKIN NEEDED. - Blood-Glucose Sensor (FREESTYLE GIANFRANCO 3 SENSOR) matilda Apply new sensor every fourteen (14) days to upper arm. E11.9 - Blood-Glucose Meter,Continuous (FREESTYLE GIANFRANCO 3 READER) misc Use to check blood sugar at least four (4) times daily. - ustekinumab (STELARA) 45 mg/0.5 mL sub-Q syringe Inject 45 mg (1 syringe) subcutaneously every 12 weeks - clobetasol (TEMOVATE) 0.05 % ointment Apply to affected area two times a day. Face. Feet. Two weeks on and two weeks off, per [facility]. - fexofenadine HCl (LELA ORAL) Take by mouth. - levonorgestrel (MIRENA) 20 mcg/24 hours (8 yrs) 52 mg IUD 1 Each by INTRAUTERINE route as directed. - oxyCODONE-acetaminophen (PERCOCET) 5-325 mg tablet TAKE 1 TABLET BY MOUTH 3 TIMES A DAY NEEDED FOR 28 DAYS - vits62/FA/om3/dha/epa ( GUMMY ORAL) Take 2 Doses by mouth once daily. - Blood-Glucose Meter (ACCU-CHEK DIANNE) Test blood sugar(s) 2 times daily. Dx: Type 2 DM - Controlled E11.9 Insulin: No, Accu-check brand covered by insurance - Ascorbic Acid 500 mg chew Take 1,000 mg by mouth once daily. With rosehips - elderberry fruit (ELDERBERRY ORAL) Take by mouth. - COMPOUNDED PRESCRIPTION 1. V44.2 Ileostomy status (HCC) (primary diagnosis) 2. 555.1 Regional enteritis of large intestine (HCC) Ileostomy Supplies. 1. Pouches, 2. Planges, 3. Felipe seals, 4. Stoma adhesive, 5. Stoma powder, 6. Skin preps, 7. Adhesive remover wipes. Dispense 1 year supplies. - tiZANidine (ZANAFLEX) 4 mg tablet Take by mouth. . Takes 1 tablet at bedtime. Problem List As Of Date 12/17/2024 Noted Resolved REG ENTERITIS, LG INTEST [K50.10] 08/07/2006 Retention of urine, unspecified [R33.9] 01/01/2007 11/27/2018 Mixed hyperlipidemia [E78.2] 01/10/2007 Anemia, unspecified [D64.9] 01/10/2007 03/08/2012 Nonspecific abnormal results of liver function *08/24/2007 04/19/2011 Onychia and paronychia of toe [L03.039] 09/26/2007 02/18/2013 ILEOSTOMY STATUS [Z93.2] 09/28/2007 IMPAIRED GLUCOSE JUNE TEST [R73.09] 01/31/2008 04/16/2008 Type 2 diabetes mellitus treated with insulin (*02/12/2008 Fibromyalgia [M79.7] / more content not included)... [facility] 12-13-2024 Note HNO ID: [id number] Author: HELIO WATSON MA Service: ? Author Type: Shaker Operator Type: Progress Notes Filed: 12/13/2024 11:13 Note Text: POPULATION HEALTH NAVIGATION OUTREACH Action/FYI CM Pool Message: Type: TCM Patient discharged from [facility] Discharge date: 12/12/24 Admitted for: ureteral stone with hydronephrosis Readmission Risk: 10 Pt would like FU appt with Samy Rand in Urology Per TCM protocol patient needs scheduled for Hospital Follow Up - Med Risk 14 days (12/26/24) Outcomes: Spoke to patient and scheduled both urology and PCP Hospital Follow Up. Reason for Outreach Community Monitoring/Network Navigator Pools AND Phone Line: CM Pool Patient Contacted: Spoke to patient/parent/or legal guardian Patient identified by name and : Yes Community Monitoring/Network Navigator Pools AND Phone Line actions taken: Patient scheduled: Hospital Follow-up: Medium risk 10-14% Specialty Scheduling 12/16/2024 in [facility] with GRAYSON PHAN - Hospital Follow Up 12/18/2024 in [facility] with SAMY BARRAGAN - Hospital Follow Up 02/07/2025 in [facility] with PHARMACIST, [facility] - REFILL - Samuel (83D) PA on file- [place] 02/1902/13/2025 in [facility] with ALIE STALLWORTH - 3 month follow up 03/24/2025 in [facility] with SCOTT GOLD - 15m follow up 07/18/2025 in [facility] with [facility] - Nephrolithiasis [N20.0] 07/30/2025 in [facility] with SAMY BARRAGAN - 1 year follow up 08/12/2025 in [facility] with RGAYSON PHAN - Yearly 08/25/2025 in [facility] with STEVE JUAREZ - 20m follow up Navigation Signature: Helio Watson MA December 13, 2024 10:31 AM [facility] 12-13-2024 History of Present illness Narrative POPULATION HEALTH NAVIGATION OUTREACH Action/FYI CM Pool Message: Type: TCM Patient discharged from [facility] Discharge date: 12/12/24 Admitted for: ureteral stone with hydronephrosis Readmission Risk: 10 Pt would like FU appt with Samy Rand in Urology Per TCM protocol patient needs scheduled for Hospital Follow Up - Med Risk 14 days (12/26/24) Outcomes: Spoke to patient and scheduled both urology and PCP Hospital Follow Up. Reason for Outreach Community Monitoring/Network Navigator Pools & Phone Line: CM Pool Patient Contacted: Spoke to patient/parent/or legal guardian Patient identified by name and : Yes Community Monitoring/Network Navigator Pools & Phone Line actions taken: Patient scheduled: Hospital Follow-up: Medium risk 10-14% Specialty Scheduling 12/16/2024 in [facility] with GRAYSON PHAN - Hospital Follow Up 12/18/2024 [facility] SAMY BARRAG[facility] - Hospital Follow Up 02/07/2025 in [facility] with PHARMACIST, [facility] - REFILL - Samuel (83D) PA on file- ND 02/1902/13/2025 in [facility] with ALIE STALLWORTH - 3 month follow up 03/24/2025 in [facility] with SCOTT GOLD - 15m follow up 07/18/2025 in [facility] with [facility] 1 - Nephrolithiasis [N20.0] 07/30/2025 in [facility] with SAMY BARRAGAN - 1 year follow up 08/12/2025 in [facility] with GRAYSON PHAN - Yearly 08/25/2025 in [facility] with STEVE JUAREZ - 20m follow up Navigation Signature: Helio Watson MA December 13, 2024 10:31 AM Transition Care Management (TCM) Initial Outreach PCP Update / Actionable Items Navigation Team Update / Actionable Items Pt would like FU appt with Samy Rand in Urology HRTIC TCM Home Visit Referral Source of Stratification: TCM [facility] Hospital Admission Status: Discharged Readmission Risk Score: 10 Patient meets program referral criteria: No Patient does not qualify for High Risk TCM Home Visit program due to: Readmission Risk Score does not meet criteria Disposition: Patient does not qualify for HRTIC, will provide TCM outreach follow-up for 30-days Patient Source: In-Network Discharge Initial outreach: TCM discharge report Outreach Summary: TCM INITIAL OUTREACH Pt reports Doing pretty good feeling about 85% better Pt Believes passed stone. Residual bruising Reports sent request for refills to provider yesterday Routed to Pt David for assistance with FU Urology appt. Denies any further needs or concerns. Patient discharged from [facility] Discharge date: 12/12/24 Admitted for: ureteral stone with hydronephrosis Readmission Risk: 10 Value-Based Contract: Cristopher CABRERA Contact: Contact made with patient: Yes Hi, my name is Antonieta Boyer RN and I am calling from the [facility] on behalf of your Primary Care Provider, Grayson Phan MD. I understand you were recently in the hospital, so I am calling to check in with you to ensure you are feeling well now that you are home. May I ask you a few questions related to your hospital stay and well-being? Yes Spoke to: Patient Validation: Validated the person spoken to is actively involved in the patient's care. The patient was identified by Name and Date of . Symptoms: Are you feeling about the same, better or worse since leaving the hospital? Better Medications: Do you have any questions about taking your medications, including which medications you should be on, or do you need refills on your medications? No Medication Review: Partial mediation review completed, per patient preference Discharge Instructions: Your Discharge Instructions / After Visit Summary (AVS) are important in guiding you through the recovery process. Do you have any questions related to your discharge instructions? No Home Care: Were you discharged with home care? No Equipment: Do you have all the necessary equipment and supplies needed at your home? Not applicable Social: Your mental health is as important to us as your physical health. Would you mind answering a few questions on this topic? Yes On the Storyboard review: Food Insecurity, Transportation, Depression, Housing, and Financial Strain: Complete any SDOHs, listed above, if not addressed in the past 3 months. If all SDOHs, listed above, have been addressed within the last 3 months, confirm responses and update any SDOHs that have changed. Action Taken: No needs verbalized. No action required. Follow-Up Appointment: [Appointment / TCM Follow-up within 14 days] I would like to help you schedule a hospital follow-up virtual or telephone visit with your PCP. This is a great way for you to connect with your provider to ensure you have safely transitioned home. If you are agreeable, I will send your request to a recruiting scheduler who will contact and assist you with that appointment. This will give you an opportunity to ask any questions or address any concerns you may have with your PCP. Inform the patient that if they have any questions or concerns prior to that appointment, to call their PCP's office right away. Appointment Action: Patient desires an appointment. Complete Navigation Team box and route to [facility] ([id number]) for scheduling. Education Patient and family educated on issues/questions related to reason for admission, transition of care topics, and follow-up needed upon discharge. Targets addressed / completed during outreach: Contact patient within two (2) business days Prevent readmission for 30 days Outreach Outcome: Enrolled in TCM Continue TCM Outreach for remainder of 30 days Care Management partners utilized: Navigation Team Antonieta Boyer RN December 13, 2024 9:55 AM documented in this encounter [facility] 12-13-2024 Note HNO ID: [id number] Author: ANTONIETA BOYER RN Service: ? Author Type: Registered Nurse Type: Progress Notes Filed: 12/13/2024 09:59 Note Text: Transition Care Management (TCM) Initial Outreach PCP Update / Actionable Items Navigation Team Update / Actionable Items Pt would like FU appt with Samy Rand in Urology HRTIC TCM Home Visit Referral Source of Stratification: [facility] Hospital Admission Status: Discharged Readmission Risk Score: 10 Patient meets program referral criteria: No Patient does not qualify for High Risk TCM Home Visit program due to: Readmission Risk Score does not meet criteria Disposition: Patient does not qualify for HRTIC, will provide TCM outreach follow-up for 30-days Patient Source: In-Network Discharge Initial outreach: TCM discharge report Outreach Summary: TCM INITIAL OUTREACH Pt reports Doing pretty good feeling about 85% better Pt Believes passed stone. Residual bruising Reports sent request for refills to provider yesterday Routed to Pt David for assistance with FU Urology appt. Denies any further needs or concerns. Patient discharged from [facility] Discharge date: 12/12/24 Admitted for: ureteral stone with hydronephrosis Readmission Risk: 10 Value-Based Contract: Cristopher CABRERA Contact: Contact made with patient: Yes Hi, my name is Antonieta Boyer RN and I am calling from the [facility] on behalf of your Primary Care Provider, Grayson Phan MD. I understand you were recently in the hospital, so I am calling to check in with you to ensure you are feeling well now that you are home. May I ask you a few questions related to your hospital stay and well-being? Yes Spoke to: Patient Validation: Validated the person spoken to is actively involved in the patient's care. The patient was identified by Name and Date of . Symptoms: Are you feeling about the same, better or worse since leaving the hospital? Better Medications: Do you have any questions about taking your medications, including which medications you should be on, or do you need refills on your medications? No Medication Review: Partial mediation review completed, per patient preference Discharge Instructions: Your Discharge Instructions / After Visit Summary (AVS) are important in guiding you through the recovery process. Do you have any questions related to your discharge instructions? No Home Care: Were you discharged with home care? No Equipment: Do you have all the necessary equipment and supplies needed at your home? Not applicable Social: Your mental health is as important to us as your physical health. Would you mind answering a few questions on this topic? Yes On the Storyboard review: Food Insecurity, Transportation, Depression, Housing, and Financial Strain: Complete any SDOHs, listed above, if not addressed in the past 3 months. If all SDOHs, listed above, have been addressed within the last 3 months, confirm responses and update any SDOHs that have changed. Action Taken: No needs verbalized. No action required. Follow-Up Appointment: [Appointment / TCM Follow-up within 14 days] I would like to help you schedule a hospital follow-up virtual or telephone visit with your PCP. This is a great way for you to connect with your provider to ensure you have safely transitioned home. If you are agreeable, I will send your request to a recruiting scheduler who will contact and assist you with that appointment. This will give you an opportunity to ask any questions or address any concerns you may have with your PCP. Inform the patient that if they have any questions or concerns prior to that appointment, to call their PCP's office right away. Appointment Action: Patient desires an appointment. Complete Navigation Team box and route to [facility] ([id number]) for scheduling. Education Patient and family educated on issues/questions related to reason for admission, transition of care topics, and follow-up needed upon discharge. Targets addressed / completed during outreach: Contact patient within two (2) business days Prevent readmission for 30 days Outreach Outcome: Enrolled in TCM Continue TCM Outreach for remainder of 30 days Care Management partners utilized: Navigation Team Antonieta Boyer RN December 13, 2024 9:55 AM [facility] 12-13-2024 Note Patient Outreach ([facility] SID LEZAMA ([id number]) 1975 F Date Time Provider Department 12/13/24 ANTONIETA BOYER [facility] During your visit today, we recorded the following information about you: Antonieta Boyer RN 12/13/2024 9:59 AM Signed Transition Care Management (TCM) Initial Outreach PCP Update / Actionable Items Navigation Team Update / Actionable Items Pt would like FU appt with Samy Rand in Urology HRTIC TCM Home Visit Referral Source of Stratification: [facility] Hospital Admission Status: Discharged Readmission Risk Score: 10 Patient meets program referral criteria: No Patient does not qualify for High Risk TCM Home Visit program due to: Readmission Risk Score does not meet criteria Disposition: Patient does not qualify for HRTIC, will provide TCM outreach follow-up for 30-days Patient Source: In-Network Discharge Initial outreach: TCM discharge report Outreach Summary: TCM INITIAL OUTREACH Pt reports Doing pretty good feeling about 85% better Pt Believes passed stone. Residual bruising Reports sent request for refills to provider yesterday Routed to Pt David for assistance with FU Urology appt. Denies any further needs or concerns. Patient discharged from [facility] Discharge date: 12/12/24 Admitted for: ureteral stone with hydronephrosis Readmission Risk: 10 Value-Based Contract: Cristopher CABRERA Contact: Contact made with patient: Yes Hi, my name is Antonieta Boyer RN and I am calling from the [facility] on behalf of your Primary Care Provider, Grayson Phan MD. I understand you were recently in the hospital, so I am calling to check in with you to ensure you are feeling well now that you are home. May I ask you a few questions related to your hospital stay and well-being? Yes Spoke to: Patient Validation: Validated the person spoken to is actively involved in the patient's care. The patient was identified by Name and Date of . Symptoms: Are you feeling about the same, better or worse since leaving the hospital? Better Medications: Do you have any questions about taking your medications, including which medications you should be on, or do you need refills on your medications? No Medication Review: Partial mediation review completed, per patient preference Discharge Instructions: Your Discharge Instructions / After Visit Summary (AVS) are important in guiding you through the recovery process. Do you have any questions related to your discharge instructions? No Home Care: Were you discharged with home care? No Equipment: Do you have all the necessary equipment and supplies needed at your home? Not applicable Social: Your mental health is as important to us as your physical health. Would you mind answering a few questions on this topic? Yes On the Storyboard review: Food Insecurity, Transportation, Depression, Housing, and Financial Strain: Complete any SDOHs, listed above, if not addressed in the past 3 months. If all SDOHs, listed above, have been addressed within the last 3 months, confirm responses and update any SDOHs that have changed. Action Taken: No needs verbalized. No action required. Follow-Up Appointment: [Appointment / TCM Follow-up within 14 days] I would like to help you schedule a hospital follow-up virtual or telephone visit with your PCP. This is a great way for you to connect with your provider to ensure you have safely transitioned home. If you are agreeable, I will send your request to a recruiting scheduler who will contact and assist you with that appointment. This will give you an opportunity to ask any questions or address any concerns you may have with your PCP. Inform the patient that if they have any questions or concerns prior to that appointment, to call their PCP's office right away. Appointment Action: Patient desires an appointment. Complete Navigation Team box and route to [facility] ([id number]) for scheduling. Education Patient and family educated on issues/questions related to reason for admission, transition of care topics, and follow-up needed upon discharge. Targets addressed / completed during outreach: Contact patient within two (2) business days Prevent readmission for 30 days Outreach Outcome: Enrolled in TCM Continue TCM Outreach for remainder of 30 days Care Management partners utilized: Navigation Team Antonieta Boyer RN December 13, 2024 9:55 AM Helio Watson MA 12/13/2024 11:13 AM Signed POPULATION HEALTH NAVIGATION OUTREACH Action/[facility] Message: Type: TCM Patient discharged from [facility] Discharge date: 12/12/24 Admitted for: ureteral stone with hydronephrosis Readmission Risk: 10 Pt would like FU appt with Samy Rand in Urology Per TCM protocol patient needs scheduled for Hospital Follow Up - Med Risk 14 (more content not included)... [facility] 11-19-2024 Instructions Alie Stallworth APRN.CNP - 11/19/2024 9:28 AM EST Decrease ozempic to 0.5 mg weekly with next refill Continue Lantus 20 units in the evening Have your labs done this week I will be in touch through [facility] about your lab results Follow up in 3 months Thank you for seeing me today, Alie Stallworth APRN.LORI documented in this encounter [facility] 11-19-2024 Note HNO ID: [id number] Author: ALIE STALLWORTH APRN.CNP Service: ? Author Type: Nurse Practitioner Type: Progress Notes Filed: 11/19/2024 09:28 Note Text: Endocrinology Virtual Visit This is a virtual visit using [employer] Zoom Video Visit. It required patient-provider interaction for the medical decision making as documented below. I have communicated my name and active licensure. The patient's identity and physical location were verified at the time of this visit. Either the patient or their legal printing sales representative has been informed of the risks and benefits of -- and alternatives to -- treatment through a remote evaluation and consents to proceed with the evaluation remotely. HISTORY Mrs Sid Lezama is a 48 year old female here for follow-up of Type 2 DM Dyslipidemia Fatty liver since 17 y/o per patient; elevated liver enzymes Steroid treatment Low bone mass Primary hyperparathyroidism - hypercalcemia, hypercalciuria DIABETES Diagnosed DM in 2006, was having reactive hypoglycemia Complications/comorbidities: retinal hole +neuropathy from cervical problems Seen in the ED (05/06/24) for ureterolithiasis. Believed to have passed the kidney stone while in the ED. Was discharged to home from the ED. steroid injections to neck (C3) and back L4, L5, S1, S5 - less often now, local pain med doctor at [place], patient not yet wanting second opinion. last injection was on February. This has caused her blood sugar to increase, she has started taking the lantus 25 units at bedtime which seems to help. More recently had a RA flare in Oct 2024 and was treated with steroids that increased her blood sugar. She is now feeling better and her blood sugars are better controlled. STEROIDS/BONE Has ileostomy bag Has Crohn's - no steroids for this, has ileostomy Has primary hyperparathyroidism - hypercalcemia, hypercalciuria BMD done in 04/2017 showed lowest Z score -2.3 BMD in 2020 Lowest T score - 1.8 Pertinent decrease (though different machine? bone mineral density of the femoral neck is 0.635 ) 10-year Fracture Risk (FRAX): Major osteoporotic fracture risk 6.% Hip fracture risk 0.9% BUT has hyperparathyroidism Lucy discussed briefly in the past as possibility but then PTH seemed to be a player so deferred Lucy Saw Dr. Teresa 2022 for parathyroid surgery eval Patient deferred, prefers holistic approach INTERVAL HISTORY History of relatedmedications: Metformin started first Januvia started 2011 Glyburide caused lows 50s Lantus Januvia 50 mg daily - stopped when Trulicity started Nov 2018 Trulicity 1.5 mg, mild abd discomfort after eating Farxiga 5 mg - getting yeast infections, stopped Was on atorvastatin, stopped, wanting to go holistic Red yeast rice - stopped Metformin 1000 mg BID - she wanted to come off this and was able Lantus - 25 units morning - just started last night since she received steroid injection yesterday Current related medications: Ozempic 1 mg weekly Lantus 20 units in the evening if blood sugar 240 or higher Calcium intake in diet/supplements: takes nutritional shake, yogurt, cheese Vitamin D intake: has supplements from holistic provider IUD Mirena 2022 last insertion Supplements from holistic provider Momspotstyle Gianfranco 3 CGM download - CGM interpretation: No hypoglycemic events Had hyperglycemic events d/t RA flare and being treated with steroids TIR=25% Blood sugars now improving since being off of the steroids If she is at 240-250 at bedtime she takes her long acting insulin. She has used it 7 times in the past month. She seems to need it when eating later or having a snack like ice cream at night. 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 FamHx: Neg thyroid CA Crohn's - cousins pat DM - grandparents HTN- mother CAD- maternal grandma REVIEW OF SYSTEMS Answers submitted by the patient for this visit: Core Review of Systems (Submitted on 11/19/2024) Fever : No Night sweats: No Recent unintentional weight change: No Nasal Congestion: No Hearing Loss: No Vision Disturbance: No A cough: No Difficulty Breathing?: No Chest pain: No Irregular heartbeat: No Leg Swelling: No Nausea: No Diarrhea: Yes Black tarry stools: No Difficulty Urinating?: No Awaken at Night More Than Once to Urinate?: Yes Joint pain or stiffness: Yes Muscle aches: Yes Leg or Foot Discomfort at Night?: No A rash: No Dizziness: No Headaches: Yes Memory Loss: No Seizures: No PHYSICAL EXAMINATION Limited due to virtual visit Gen: well appearing, NAD Head: atraumatic normocephalic Eyes: EOMI (more content not included)... [facility] 11-19-2024 History of Present illness Narrative Images from the original note were not included. Endocrinology Virtual Visit This is a virtual visit using [employer] Zoom Video Visit. It required patient-provider interaction for the medical decision making as documented below. I have communicated my name and active licensure. The patient's identity and physical location were verified at the time of this visit. Either the patient or their legal printing sales representative has been informed of the risks and benefits of -- and alternatives to -- treatment through a remote evaluation and consents to proceed with the evaluation remotely. HISTORY Mrs Sid Lezama is a 48 year old female here for follow-up of Type 2 DM Dyslipidemia Fatty liver since 17 y/o per patient; elevated liver enzymes Steroid treatment Low bone mass Primary hyperparathyroidism - hypercalcemia, hypercalciuria DIABETES Diagnosed DM in 2006, was having reactive hypoglycemia Complications/comorbidities: retinal hole +neuropathy from cervical problems Seen in the ED (05/06/24) for ureterolithiasis. Believed to have passed the kidney stone while in the ED. Was discharged to home from the ED. steroid injections to neck (C3) and back L4, L5, S1, S5 - less often now, local pain med doctor at [place], patient not yet wanting second opinion. last injection was on February. This has caused her blood sugar to increase, she has started taking the lantus 25 units at bedtime which seems to help. More recently had a RA flare in Oct 2024 and was treated with steroids that increased her blood sugar. She is now feeling better and her blood sugars are better controlled. STEROIDS/BONE Has ileostomy bag Has Crohn's - no steroids for this, has ileostomy Has primary hyperparathyroidism - hypercalcemia, hypercalciuria BMD done in 04/2017 showed lowest Z score -2.3 BMD in 2020 Lowest T score - 1.8 Pertinent decrease (though different machine? bone mineral density of the femoral neck is 0.635 ) 10-year Fracture Risk (FRAX): Major osteoporotic fracture risk 6.% Hip fracture risk 0.9% BUT has hyperparathyroidism Lucy discussed briefly in the past as possibility but then PTH seemed to be a player so deferred Proldavid Saw Dr. Teresa 2022 for parathyroid surgery eval Patient deferred, prefers holistic approach INTERVAL HISTORY History of relatedmedications: Metformin started first Januvia started 2011 Glyburide caused lows 50s Lantus Januvia 50 mg daily - stopped when Trulicity started Nov 2018 Trulicity 1.5 mg, mild abd discomfort after eating Farxiga 5 mg - getting yeast infections, stopped Was on atorvastatin, stopped, wanting to go holistic Red yeast rice - stopped Metformin 1000 mg BID - she wanted to come off this and was able Lantus - 25 units morning - just started last night since she received steroid injection yesterday Current related medications: Ozempic 1 mg weekly Lantus 20 units in the evening if blood sugar 240 or higher Calcium intake in diet/supplements: takes nutritional shake, yogurt, cheese Vitamin D intake: has supplements from holistic provider IUD Mirena 2022 last insertion Supplements from holistic provider [employer] Gianfranco 3 CGM download - CGM interpretation: No hypoglycemic events Had hyperglycemic events d/t RA flare and being treated with steroids TIR=25% Blood sugars now improving since being off of the steroids If she is at 240-250 at bedtime she takes her long acting insulin. She has used it 7 times in the past month. She seems to need it when eating later or having a snack like ice cream at night. 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 FamHx: Neg thyroid CA Crohn's - cousins pat DM - grandparents HTN- mother CAD- maternal grandma REVIEW OF SYSTEMS Answers submitted by the patient for this visit: Core Review of Systems (Submitted on 11/19/2024) Fever : No Night sweats: No Recent unintentional weight change: No Nasal Congestion: No Hearing Loss: No Vision Disturbance: No A cough: No Difficulty Breathing?: No Chest pain: No Irregular heartbeat: No Leg Swelling: No Nausea: No Diarrhea: Yes Black tarry stools: No Difficulty Urinating?: No Awaken at Night More Than Once to Urinate?: Yes Joint pain or stiffness: Yes Muscle aches: Yes Leg or Foot Discomfort at Night?: No A rash: No Dizziness: No Headaches: Yes Memory Loss: No Seizures: No PHYSICAL EXAMINATION Limited due to virtual visit Gen: well appearing, NAD Head: atraumatic normocephalic Eyes: EOMI no scleral icterus Neck: no obvious goiter Pulm: resp effort is appropraite Ext: no swelling cyanosis Neuro: hearing and speech normal LABS REVIEWED. Will have labs again later this week Latest Ref Rng 08/14/2023 02/16/2024 05/20/2024 06/02/2024 Protein, Total 6.3 - 8.0 g/dL 6.5 Albumin 3.9 - 4.9 g/dL 4.2 Calcium 8.5 - 10.2 mg/dL 10.1 Bilirubin, Total 0.2 - 1.3 mg/dL 0.3 Alkaline Phosphatase 34 - 123 U/L 129 (H) AST 13 - 35 U/L 23 ALT 7 - 38 U/L 32 Glucose 74 - 99 mg/dL 155 (H) BUN 7 - 21 mg/dL 13 Creatinine 0.58 - 0.96 mg/dL 0.67 Sodium 136 - 144 mmol/L 140 Potassium 3.7 - 5.1 mmol/L 3.8 Chloride 98 - 107 mmol/L 105 CO2 22 - 30 mmol/L 27 Anion Gap 8 - 15 mmol/L 8 eGFR >=60 mL/min/1.73m 107 Cholesterol, Total <200 mg/dL 217 (H) Triglyceride <150 mg/dL 167 (H) HDL Cholesterol >39 mg/dL 50 Non HDL Cholesterol <130 mg/dL 167 (H) Fasting Time hrs 12 VLDL Cholesterol <30 mg/dL 33 (H) TC:HDL Ratio <5.10 4.34 LDL Cholesterol <100 mg/dL 134 (H) LDL:HDL Ratio <2.54 2.68 (H) Creatinine, Ur Random (UCRR) 20.0 - 300.0 mg/dL 256.4 Albumin, Urine Random mg/L 17.2 Albumin/Creat Ratio <30 mg/g 7 Hemoglobin A1C (POCT) 4.3 - 5.6 % 6.5 ! 7.0 ! IMAGING REVIEWED BMD Sep 2023 IMPRESSION: Osteopenia in the lumbar spine and left femoral neck and left forearm Profile Saw Operator: SANTOS Transcribe Date/Time: Sep 25 2023 12:59P Dictated by : JOVANY GARCIA MD This examination was interpreted and the report reviewed and electronically signed by: JOVANY GARCIA MD on Sep 25 2023 1:06PM EST Results-Findings * * *Final Report* * * DATE OF EXAM: Sep 25 2023 10:01AM [facility] [id number] - BD DXA - FOREARM SKELETON / PROCEDURE REASON: Primary hyperparathyroidism (HCC) * * * * Physician Interpretation * * * * EXAMINATION: DXA BONE DENSITOMETRY BD DXA - AXIAL SKELETON, BD DXA - FOREARM SKELETON PATIENT DEMOGRAPHICS: Age: 47 years, Gender: Female SCANNER INFORMATION: DXA Model: [employer] C [id number] Date Scanned: 09/25/2023 10:01 AM CLINICAL HISTORY: DIAGNOSTIC Primary hyperparathyroidism (HCC) . RISK FACTORS FOR OSTEOPOROSIS AND ASSOCIATED FRACTURES REPORTED BY THIS PATIENT: Please refer to Bone Health Questionnaire in the EMR CURRENT THERAPY: Please refer to Bone Health Questionnaire in the EMR RESULTS: Lumbar spine (L1, L2, L3, L4): 0.820 g/cm2, Z-score -1.3 Lumbar spine: 2020: 0.846 g/cm2 Left Femoral Neck: 0.634 g/cm2, Z-score -1.3 Left Femoral Neck: 2020: 0.635 g/cm2 Left Total Hip: 0.852 g/cm2, Z-score -0.3 Left Total Hip: 2020: 0.894 g/cm2 Left Forearm, Distal 1/3 of Radius: 0.610 g/cm2, Z-score -0.7 CHANGE IS STATISTICALLY SIGNIFICANT IN THE SPINE OR HIP IF GREATER THAN OR EQUAL TO 0.04 g/cm2 VERTEBRAL FRACTURE ASSESSMENT Not performed. FRAX 10 Year fracture risk Major osteoporotic fracture 7.3% Hip fracture 1% Bone density 2020 LUMBAR SPINE: The bone mineral density from L1 through L4 is 0.846 grams per square centimeter which yields a T-score of -1.8. The bone mineral density previously measured 0.954 g/sq cm. LEFT HIP: The bone mineral density of the total region of the hip is 0.894 grams per square centimeter which yields a T-score of -0.4. The bone mineral density previously measured 0.909 g/sq cm. LEFT FEMORAL NECK: The bone mineral density of the femoral neck is 0.635 grams per square centimeter which yields a T-score of -1.9. The bone mineral density previously measured 0.827 g/sq cm. 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 Lumbago 01/10/2007 Myalgia and myositis, unspecified Pain management Dr Stern Nonalcoholic fatty liver disease 08/24/2007 Other and unspecified hyperlipidemia 01/10/2007 PMH - PAST MEDICAL HISTORY OF Cx scarred to post vag wall/difficult exam Pneumonia, organism unspecified(486) 01/10/2007 Regional enteritis of large intestine (HCC) 08/07/2006 Retention of urine, unspecified 01/01/2007 Rheumatoid arthritis(714.0) Dr. Mc, [facility] Type II or unspecified type diabetes mellitus without mention of complication, not stated as uncontrolled Ureterolithiasis 07/18/2019 PAST SURGICAL HISTORY Procedure Laterality Date ADENOIDECTOMY PRIMARY <AGE 11 1986 Adenoidectomy ARTHROSCOPY KNEE DIAGNOSTIC W/WO SYNOVIAL BX SPX 1989 Arthroscopy, knee, left BRNCC INCL FLUOR GDNCE DX W/CELL WASHG SPX 01/2007 Bronchoscopy EGD 05/02/2023 EPIDURAL 2011 multiple ones done by Dr. Beckett ILEOSCOPY 05/02/2023 PAST SURGICAL HISTORY OF 06/2000 ILEOSTOMY/COLECTOMY PAST SURGICAL HISTORY OF 1993 CRYOCAUTERY/ MILD DYSPLASIA PAST SURGICAL HISTORY OF 03/2006 Abdominal abscess with anal fistula PRCTECT COMPL W/STOT/TOT COLCT W/VENEER JOINER BXS 12/05/2006 AP endoanal proctectomy SHOULDER ARTHROSCOPY/SURGERY Left 05/06/2020 Rotator cuff debridement, subacromial decompression/arthroplasty TONSILLECTOMY PRIMARY/SECONDARY <AGE 11 1986 Tonsillectomy Social History Tobacco Use Smoking status: Former Current packs/day: 0.00 Average packs/day: 1 pack/day for 16.0 years (16.0 ttl pk-yrs) Types: Cigarettes Start date: 12/04/1990 Quit date: 12/04/2006 Years since quittin.9 Smokeless tobacco: Never Vaping Use Vaping status: Never Used Substance Use Topics Alcohol use: No Drug use: No FAMILY HISTORY Problem Relation Age of Onset Alcohol/Drug Mother Hypertension Mother COPD other (vascular disease) Mother other (sleep apnea) Mother other (heart murmur) Mother Alcohol/Drug Father Cancer Father liver Asthma Brother Hypertension Daughter Diabetes Maternal Grandmother Stroke Maternal Grandmother Heart Maternal Grandmother Emphysema Paternal Grandmother Diabetes Paternal Grandfather Macular Degen Paternal Grandfather Anesthesia Problems No Family History Current Outpatient Medications Medication Sig insulin glargine (LANTUS SOLOSTAR U-100 INSULIN) 100 unit/mL (3 mL) INJECT 20 UNITS UNDER THE SKIN EVERY evening predniSONE (DELTASONE) 10 mg tablet Take in the morning with food. Take 2 tabs daily x 3 days, then 1 tab daily x 3 days, then stop. pantoprazole (PROTONIX) 20 mg tablet Take 1 tablet by mouth daily before breakfast. Take on empty stomach, 1/2 hr before meal. blood sugar diagnostic (ACCU-CHEK GUIDE TEST STRIPS) test strip USE WITH BLOOD GLUCOSE TEST THREE TIMES A DAY. Lancets (ACCU-CHEK FASTCLIX LANCET DRUM) Use as instructed to check blood glucose up to 2 times daily. E11.9 Insulin Lynch, Disposable, (DROPLET PEN NEEDLE) 32 gauge x 5/32 USE TO INJECT ONE TIME DAILY Lancing Device with Lancets ACCU CHEK FASTCLIX LANCET *DEVICE* use to check blood glucose up to 2 times per day as instructed. E11.9 GVOKE PFS 1-PACK SYRINGE 1 mg/0.2 mL syrg INJECT 0.2 ML UNDER THE SKIN NEEDED. semaglutide (OZEMPIC) 1 mg/dose (4 mg/3 mL) pen Inject 1 mg subcutaneously one time a week. Patient should start on May 13, 2024. Blood-Glucose Sensor (FREESTYLE GIANFRANCO 3 SENSOR) matilda Apply new sensor every fourteen (14) days to upper arm. E11.9 Blood-Glucose Meter,Continuous (FREESTYLE GIANFRANCO 3 READER) [facility] Use to check blood sugar at least four (4) times daily. ustekinumab (STELARA) 45 mg/0.5 mL sub-Q syringe Inject 45 mg (1 syringe) subcutaneously every 12 weeks clobetasol (TEMOVATE) 0.05 % ointment Apply to affected area two times a day. Face. Feet. Two weeks on and two weeks off, per [facility]. fexofenadine HCl (LELA ORAL) Take by mouth. levonorgestrel (MIRENA) 20 mcg/24 hours (8 yrs) 52 mg IUD 1 Each by INTRAUTERINE route as directed. oxyCODONE-acetaminophen (PERCOCET) 5-325 mg tablet TAKE 1 TABLET BY MOUTH 3 TIMES A DAY NEEDED FOR 28 DAYS vits62/FA/om3/dha/epa ( GUMMY ORAL) Take 2 Doses by mouth once daily. Blood-Glucose Meter (ACCU-CHEK DIANNE) Test blood sugar(s) 2 times daily. Dx: Type 2 DM - Controlled E11.9 Insulin: No, Accu-check brand covered by insurance Ascorbic Acid 500 mg chew Take 1,000 mg by mouth once daily. With rosehips elderberry fruit (ELDERBERRY ORAL) Take by mouth. COMPOUNDED PRESCRIPTION 1. V44.2 Ileostomy status (HCC) (primary diagnosis) 2. 555.1 Regional enteritis of large intestine (HCC) Ileostomy Supplies. 1. Pouches, 2. Planges, 3. Felipe seals, 4. Stoma adhesive, 5. Stoma powder, 6. Skin preps, 7. Adhesive remover wipes. Dispense 1 year supplies. tiZANidine (ZANAFLEX) 4 mg tablet Take by mouth. . Takes 1 tablet at bedtime. No current facility-administered medications for this visit. ALLERGIES Allergen Reactions Azithromycin Unknown thinks a rash Dilaudid [Hydromorp* Swelling migraines Levemir [Insulin De* Other: See Comments Urine turned dark and smelly Methadone Swelling migraine Morphine Swelling migraines Remicade [Inflixima* Intolerance, Rash broke out in blisters with the 6th dose. 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 Monica Marte [address] [place] [address] [facility] [id number] Bone density - next in Sep 2025 unless has surgery Thyroid nodule subcm Dr. Teresa's US 2022 done for parathyroid localization Labs/Imaging/Consults/Scripts HgbA1c Lipid panel al/cr ratio Follow-up: 3 mo Please contact me/my office: if you do not receive a note from me summarizing your lab or imaging within a week of your seeing/receiving your results. 2. sooner than the recommended follow-up if with issues/concerns. 3. If you do not see lab/imaging orders prior to your next visit Please see your primary care provider and other specialists for issues not explained by the condition you are seeing me for. Alie Stallworth APRN.CNP November 19, 2024 All documentation from previous visit of 05/20/2024 was copied and pasted, documentation has been reviewed and edited as necessary for today's visit. Medical Decision Making: Problems: Moderate: 1+ chronic illnesses with change Data: Unique test result(s) reviewed: 3+ Unique test(s) ordered: 3+ Risk: Moderate: Drug management Medical Decision Making Level: 4 - Moderate documented in this encounter [facility] 11-19-2024 Telephone encounter Note Message sent to the patient regarding invite to share CGM data with the office. Aminata Roberson RN [facility] 11-19-2024 Miscellaneous Notes Message sent to the patient regarding invite to share CGM data with the office. Aminata Roberson RN documented in this encounter [facility] 11-18-2024 History of Present illness Narrative [facility] Refill Assessment Medication(s): Stelara Patient's current medication list and adherence status to current therapy were reviewed by Specialty Pharmacy clinical pharmacist to identify any new drug interactions or non-compliance to therapy. Therapy continues to be appropriate for disease, patient response, and medical condition. Verification of therapeutic benefit and effectiveness with current therapy was completed. Adverse events, barriers in adherence, and side effects were assessed and addressed if applicable. Will proceed with refill with no changes in therapy - patient progressing towards achieving therapeutic goals based on medication-specific laboratory parameters, disease state markers and outcomes. Office/provider notes have been reviewed prior to dispensing the medication. Ustekinumab (Stelara) - IL-12/23 Inhibitor CBC with differential (baseline); complete metabolic panel (baseline); tuberculosis (TB) screening prior to initiating and during therapy (chest X-ray if TB positive); hepatitis C virus/hepatitis B virus (HBV) screening prior to initiating (all patients), HBV carriers (during and for several months following therapy); HIV screening (baseline) (AAD/NPF [Menter 2019]); monitor for signs/symptoms of infection, posterior reversible encephalopathy syndrome, and squamous cell skin carcinoma. CBC with differential: WBC Date Value Ref Range Status 06/02/2024 6.34 3.70 - 11.00 k/uL Final RBC Date Value Ref Range Status 06/02/2024 4.79 3.90 - 5.20 m/uL Final Hemoglobin Date Value Ref Range Status 06/02/2024 14.1 11.5 - 15.5 g/dL Final Hematocrit Date Value Ref Range Status 06/02/2024 43.0 36.0 - 46.0 % Final MCV Date Value Ref Range Status 06/02/2024 89.8 80.0 - 100.0 fL Final MCH Date Value Ref Range Status 06/02/2024 29.4 26.0 - 34.0 pg Final MCHC Date Value Ref Range Status 06/02/2024 32.8 30.5 - 36.0 g/dL Final RDW-CV Date Value Ref Range Status 06/02/2024 12.1 11.5 - 15.0 % Final Platelet Count Date Value Ref Range Status 06/02/2024 224 150 - 400 k/uL Final MPV Date Value Ref Range Status 06/02/2024 10.4 9.0 - 12.7 fL Final Neutrophils % Date Value Ref Range Status 06/02/2024 39.8 % Final Lymphocytes % Date Value Ref Range Status 06/02/2024 48.7 % Final Monocytes % Date Value Ref Range Status 06/02/2024 7.3 % Final Eosinophils % Date Value Ref Range Status 06/02/2024 3.2 % Final Basophils % Date Value Ref Range Status 06/02/2024 0.8 % Final Abs Neut Date Value Ref Range Status 06/02/2024 2.53 1.45 - 7.50 k/uL Final Abs [place] Date Value Ref Range Status 06/02/2024 0.46 <0.87 k/uL Final Abs Eosin Date Value Ref Range Status 06/02/2024 0.20 <0.46 k/uL Final Abs Baso Date Value Ref Range Status 06/02/2024 0.05 <0.11 k/uL Final CMP: Albumin Date Value Ref Range Status 06/02/2024 4.2 3.9 - 4.9 g/dL Final Calcium, Total Date Value Ref Range Status 06/02/2024 10.1 8.5 - 10.2 mg/dL Final Bilirubin, Total Date Value Ref Range Status 06/02/2024 0.3 0.2 - 1.3 mg/dL Final Alkaline Phosphatase Date Value Ref Range Status 06/02/2024 129 (H) 34 - 123 U/L Final AST Date Value Ref Range Status 06/02/2024 23 13 - 35 U/L Final ALT Date Value Ref Range Status 06/02/2024 32 7 - 38 U/L Final Glucose Date Value Ref Range Status 06/02/2024 155 (H) 74 - 99 mg/dL Final Comment: The [place] [employer] (ADA) provides guidance for cutoff values for fasting glucose and random glucose. The ADA defines fasting as no caloric intake for at least 8 hours. Fasting plasma glucose results between 100 to 125 [...] Standards of Medical Care in Diabetes 2016, [place] [employer]. Diabetes Care. 2016.39(Suppl 1). BUN Date Value Ref Range Status 06/02/2024 13 7 - 21 mg/dL Final Creatinine Date Value Ref Range Status 06/02/2024 0.67 0.58 - 0.96 mg/dL Final Sodium Date Value Ref Range Status 06/02/2024 140 136 - 144 mmol/L Final Potassium Date Value Ref Range Status 06/02/2024 3.8 3.7 - 5.1 mmol/L Final Chloride Date Value Ref Range Status 06/02/2024 105 98 - 107 mmol/L Final CO2 Date Value Ref Range Status 06/02/2024 27 22 - 30 mmol/L Final Anion Gap Date Value Ref Range Status 06/02/2024 8 8 - 15 mmol/L Final eGFR- Date Value Ref Range Status 12/21/2021 >60 Final Estimated Glomerular Filtration Rate Date Value Ref Range Status 06/02/2024 107 >=60 mL/min/1.73m Final Comment: Estimated Glomerular Filtration Rate (eGFR) is calculated using the 2020 CKD-EPI creatinine equation. This equation utilizes serum creatinine, sex, and age as parameters. The creatinine assay has traceable calibration to isotope dilution-mass spectrometry. Refer to KDIGO guidelines for clinical interpretation. In patients with unstable renal function, e.g. those with acute kidney injury, the eGFR may not accurately reflect actual GFR. HBsAg Date Value Ref Range Status 06/18/2021 Negative Negative Final Hep B Surface Ab, Qual Date Value Ref Range Status 04/19/2022 Negative Negative Final Comment: No evidence of current or past infection with Hepatitis B virus. Should recent infection be suspected, repeat testing may be considered 3-4 weeks after this draw. Hepatitis B Core Ab, Total Date Value Ref Range Status 04/19/2022 Negative Negative Final Comment: No evidence of current or past infection with Hepatitis B virus. Should recent infection be suspected, repeat testing may be considered 3-4 weeks after this draw. Hep C Antibody IA Date Value Ref Range Status 04/19/2022 Negative Negative Final Comment: The result suggests no evidence of active infection with Hepatitis C virus. Should recent infection be suspected, repeat testing may be considered 4-6 weeks after this draw. TB Result Date Value Ref Range Status 04/19/2022 Negative Final No results found for: HIV1AB Current Outpatient Medications on File Prior to Visit Medication Sig insulin glargine (LANTUS SOLOSTAR U-100 INSULIN) 100 unit/mL (3 mL) INJECT 20 UNITS UNDER THE SKIN EVERY evening predniSONE (DELTASONE) 10 mg tablet Take in the morning with food. Take 2 tabs daily x 3 days, then 1 tab daily x 3 days, then stop. pantoprazole DR (PROTONIX) 20 mg tablet Take 1 tablet by mouth daily before breakfast. Take on empty stomach, 1/2 hr before meal. blood sugar diagnostic (ACCU-CHEK GUIDE TEST STRIPS) test strip USE WITH BLOOD GLUCOSE TEST THREE TIMES A DAY. Lancets (ACCU-CHEK FASTCLIX LANCET DRUM) Use as instructed to check blood glucose up to 2 times daily. E11.9 Insulin Lynch, Disposable, (DROPLET PEN NEEDLE) 32 gauge x USE TO INJECT ONE TIME DAILY Lancing Device with Lancets ACCU CHEK FASTCLIX LANCET *DEVICE* use to check blood glucose up to 2 times per day as instructed. E11.9 GVOKE PFS 1-PACK SYRINGE 1 mg/0.2 mL syrg INJECT 0.2 ML UNDER THE SKIN NEEDED. Blood-Glucose Sensor (FREESTYLE GIANFRANCO 3 SENSOR) matilda Apply new sensor every fourteen (14) days to upper arm. E11.9 Blood-Glucose Meter,Continuous (FREESTYLE GIANFRANCO 3 READER) [facility] Use to check blood sugar at least four (4) times daily. ustekinumab (STELARA) 45 mg/0.5 mL sub-Q syringe Inject 45 mg (1 syringe) subcutaneously every 12 weeks clobetasol (TEMOVATE) 0.05 % ointment Apply to affected area two times a day. Face. Feet. Two weeks on and two weeks off, per [facility] D[facility]at[facility]. fexofenadine HCl (LELA ORAL) Take by mouth. levonorgestrel (MIRENA) 20 mcg/24 hours (8 yrs) 52 mg IUD 1 Each by INTRAUTERINE route as directed. oxyCODONE-acetaminophen (PERCOCET) 5-325 mg tablet TAKE 1 TABLET BY MOUTH 3 TIMES A DAY NEEDED FOR 28 DAYS vits62/FA/om3/dha/epa ( GUMMY ORAL) Take 2 Doses by mouth once daily. Blood-Glucose Meter (ACCU-CHEK DIANNE) Test blood sugar(s) 2 times daily. Dx: Type 2 DM - Controlled E11.9 Insulin: No, Accu-check brand covered by insurance Ascorbic Acid 500 mg chew Take 1,000 mg by mouth once daily. With rosehips elderberry fruit (ELDERBERRY ORAL) Take by mouth. COMPOUNDED PRESCRIPTION 1. V44.2 Ileostomy status (HCC) (primary diagnosis) 2. 555.1 Regional enteritis of large intestine (HCC) Ileostomy Supplies. 1. Pouches, 2. Planges, 3. Felipe seals, 4. Stoma adhesive, 5. Stoma powder, 6. Skin preps, 7. Adhesive remover wipes. Dispense 1 year supplies. tiZANidine (ZANAFLEX) 4 mg tablet Take by mouth. . Takes 1 tablet at bedtime. No current facility-administered medications on file prior to visit. Canceled Appointments: Future Appointments Date Time Provider Department Center 02/07/2025 11:00 AM Pharmacist, [facility] 2 SPCPHARMSVC None 02/13/2025 9:00 AM Alie Stallworth, PERMIT TECHNICIAN.SQL ANALYST [facility] [place] 03/24/2025 10:00 AM Scott Gold MD RHEUST [facility] 07/18/2025 9:00 AM [facility] MOB 1 RUSWS [place] 07/30/2025 3:00 PM Samy Barragan PA-C UROLST [facility] 08/12/2025 8:00 AM Grayson Phan MD INTMWS [facility] [place] 08/25/2025 10:00 AM Steve Juarez, CHRISTOPH.SQL ANALYST [facility] [place] [facility] Clinical Pharmacist - Biologics: Allergy, Immunology, and Inflammatory [facility] ; Pool: P [facility] Pool #: [id number] Feeder Operator Assessment Patient confirmed: Yes Med/dose confirmed: Yes Supplies needed: No supplies needed Missed doses: No Estimated days supply on hand: 0 Next cycle/dose due: 11/27/24 Copay amount: 0 Payment confirmed: Yes Delivery method: FedEx Signature required: Waived on patient request Delivery address: [address] [place] [address] Delivery date: 11/21/24 Questions or concerns for the pharmacist?: No Did you have any side effects believed to be related to this medication, that resulted in hospitalization?: No Current Outpatient Medications on File Prior to Visit Medication Sig insulin glargine (LANTUS SOLOSTAR U-100 INSULIN) 100 unit/mL (3 mL) INJECT 20 UNITS UNDER THE SKIN EVERY evening predniSONE (DELTASONE) 10 mg tablet Take in the morning with food. Take 2 tabs daily x 3 days, then 1 tab daily x 3 days, then stop. pantoprazole DR (PROTONIX) 20 mg tablet Take 1 tablet by mouth daily before breakfast. Take on empty stomach, 1/2 hr before meal. blood sugar diagnostic (ACCU-CHEK GUIDE TEST STRIPS) test strip USE WITH BLOOD GLUCOSE TEST THREE TIMES A DAY. Lancets (ACCU-CHEK FASTCLIX LANCET DRUM) Use as instructed to check blood glucose up to 2 times daily. E11.9 Insulin Lynch, Disposable, (DROPLET PEN NEEDLE) 32 gauge x 5/32 USE TO INJECT ONE TIME DAILY Lancing Device with Lancets ACCU CHEK FASTCLIX LANCET *DEVICE* use to check blood glucose up to 2 times per day as instructed. E11.9 GVOKE PFS 1-PACK SYRINGE 1 mg/0.2 mL syrg INJECT 0.2 ML UNDER THE SKIN NEEDED. semaglutide (OZEMPIC) 1 mg/dose (4 mg/3 mL) pen Inject 1 mg subcutaneously one time a week. Patient should start on May 13, 2024. Blood-Glucose Sensor (FREESTYLE GIANFRANCO 3 SENSOR) matilda Apply new sensor every fourteen (14) days to upper arm. E11.9 Blood-Glucose Meter,Continuous (FREESTYLE GIANFRANCO 3 READER) [facility] Use to check blood sugar at least four (4) times daily. ustekinumab (STELARA) 45 mg/0.5 mL sub-Q syringe Inject 45 mg (1 syringe) subcutaneously every 12 weeks clobetasol (TEMOVATE) 0.05 % ointment Apply to affected area two times a day. Face. Feet. Two weeks on and two weeks off, per [facility] Dermat[facility]. fexofenadine HCl (LELA ORAL) Take by mouth. levonorgestrel (MIRENA) 20 mcg/24 hours (8 yrs) 52 mg IUD 1 Each by INTRAUTERINE route as directed. oxyCODONE-acetaminophen (PERCOCET) 5-325 mg tablet TAKE 1 TABLET BY MOUTH 3 TIMES A DAY NEEDED FOR 28 DAYS vits62/FA/om3/dha/epa ( GUMMY ORAL) Take 2 Doses by mouth once daily. Blood-Glucose Meter (ACCU-CHEK DIANNE) Test blood sugar(s) 2 times daily. Dx: Type 2 DM - Controlled E11.9 Insulin: No, Accu-check brand covered by insurance Ascorbic Acid 500 mg chew Take 1,000 mg by mouth once daily. With rosehips elderberry fruit (ELDERBERRY ORAL) Take by mouth. COMPOUNDED PRESCRIPTION 1. V44.2 Ileostomy status (HCC) (primary diagnosis) 2. 555.1 Regional enteritis of large intestine (HCC) Ileostomy Supplies. 1. Pouches, 2. Planges, 3. Felipe seals, 4. Stoma adhesive, 5. Stoma powder, 6. Skin preps, 7. Adhesive remover wipes. Dispense 1 year supplies. tiZANidine (ZANAFLEX) 4 mg tablet Take by mouth. . Takes 1 tablet at bedtime. No current facility-administered medications on file prior to visit. [facility] SPECIALTY CLINICAL ASSESSMENT - INFLAMMATORY CONDITIONS V6: Assessment to use: Refill Assessment of injection issues: Yes Infection screening, including annual TB assessment when applicable to medication: Yes Current medication list (including drug interaction assessment): Yes Experience of adverse reactions to the medication: Yes Date of influenza vaccination reminder: 09/02/2024 Date of most recent vaccination assessment: 09/02/2024 Treatment Plan Information: Seronegative spondyloarthropathy Crohn's disease with complication, unspecified gastrointestinal tract location (HCC) Osteoarthritis of spine, unspecified spinal osteoarthritis complication status, unspecified spinal region Stelara - Inject 45 mg (1 syringe) subcutaneously at weeks 0 and 4 followed by every 12 weeks thereafter. Est. Tx Plan Start Date: 12/23/2022 Estimated Start Date Info: No information available Est. Estimated Treatment Duration: Until loss of efficacy and/or no longer tolerated. Shira Matta CPhT, Inflammatory/Allergy [facility] [phone] documented in this encounter [facility] 11-18-2024 Note HNO ID: [id number] Author: ORNELAS RPh Service: ? Author Type: ? Type: Progress Notes Filed: 11/20/2024 07:01 Note Text: [facility] Specialty Refill Assessment Medication(s): Stelara Patient's current medication list and adherence status to current therapy were reviewed by Specialty Pharmacy clinical pharmacist to identify any new drug interactions or non-compliance to therapy. Therapy continues to be appropriate for disease, patient response, and medical condition. Verification of therapeutic benefit and effectiveness with current therapy was completed. Adverse events, barriers in adherence, and side effects were assessed and addressed if applicable. Will proceed with refill with no changes in therapy - patient progressing towards achieving therapeutic goals based on medication-specific laboratory parameters, disease state markers and outcomes. Office/provider notes have been reviewed prior to dispensing the medication. Ustekinumab (Stelara) - IL-12/23 Inhibitor CBC with differential (baseline); complete metabolic panel (baseline); tuberculosis (TB) screening prior to initiating and during therapy (chest X-ray if TB positive); hepatitis C virus/hepatitis B virus (HBV) screening prior to initiating (all patients), HBV carriers (during and for several months following therapy); HIV screening (baseline) (AAD/NPF [Menter 2019]); monitor for signs/symptoms of infection, posterior reversible encephalopathy syndrome, and squamous cell skin carcinoma. CBC with differential: WBC Date Value Ref Range Status 06/02/2024 6.34 3.70 - 11.00 k/uL Final RBC Date Value Ref Range Status 06/02/2024 4.79 3.90 - 5.20 m/uL Final Hemoglobin Date Value Ref Range Status 06/02/2024 14.1 11.5 - 15.5 g/dL Final Hematocrit Date Value Ref Range Status 06/02/2024 43.0 36.0 - 46.0 % Final MCV Date Value Ref Range Status 06/02/2024 89.8 80.0 - 100.0 fL Final MCH Date Value Ref Range Status 06/02/2024 29.4 26.0 - 34.0 pg Final MCHC Date Value Ref Range Status 06/02/2024 32.8 30.5 - 36.0 g/dL Final RDW-CV Date Value Ref Range Status 06/02/2024 12.1 11.5 - 15.0 % Final Platelet Count Date Value Ref Range Status 06/02/2024 224 150 - 400 k/uL Final MPV Date Value Ref Range Status 06/02/2024 10.4 9.0 - 12.7 fL Final Neutrophils % Date Value Ref Range Status 06/02/2024 39.8 % Final Lymphocytes % Date Value Ref Range Status 06/02/2024 48.7 % Final Monocytes % Date Value Ref Range Status 06/02/2024 7.3 % Final Eosinophils % Date Value Ref Range Status 06/02/2024 3.2 % Final Basophils % Date Value Ref Range Status 06/02/2024 0.8 % Final Abs Neut Date Value Ref Range Status 06/02/2024 2.53 1.45 - 7.50 k/uL Final Abs [place] Date Value Ref Range Status 06/02/2024 0.46 <0.87 k/uL Final Abs Eosin Date Value Ref Range Status 06/02/2024 0.20 <0.46 k/uL Final Abs Baso Date Value Ref Range Status 06/02/2024 0.05 <0.11 k/uL Final CMP: Albumin Date Value Ref Range Status 06/02/2024 4.2 3.9 - 4.9 g/dL Final Calcium, Total Date Value Ref Range Status 06/02/2024 10.1 8.5 - 10.2 mg/dL Final Bilirubin, Total Date Value Ref Range Status 06/02/2024 0.3 0.2 - 1.3 mg/dL Final Alkaline Phosphatase Date Value Ref Range Status 06/02/2024 129 (H) 34 - 123 U/L Final AST Date Value Ref Range Status 06/02/2024 23 13 - 35 U/L Final ALT Date Value Ref Range Status 06/02/2024 32 7 - 38 U/L Final Glucose Date Value Ref Range Status 06/02/2024 155 (H) 74 - 99 mg/dL Final Comment: The [place] [employer] (ADA) provides guidance for cutoff values for fasting glucose and random glucose. The ADA defines fasting as no caloric intake for at least 8 hours. Fasting plasma glucose results between 100 to 125 [...] Standards of Medical Care in Diabetes 2016, [place] [employer]. Diabetes Care. 2016.39(Suppl 1). BUN Date Value Ref Range Status 06/02/2024 13 7 - 21 mg/dL Final Creatinine Date Value Ref Range Status 06/02/2024 0.67 0.58 - 0.96 mg/dL Final Sodium Date Value Ref Range Status 06/02/2024 140 136 - 144 mmol/L Final Potassium Date Value Ref Range Status 06/02/2024 3.8 3.7 - 5.1 mmol/L Final Chloride Date Value Ref Range Status 06/02/2024 105 98 - 107 mmol/L Final CO2 Date Value Ref Range Status 06/02/2024 27 22 - 30 mmol/L Final Anion Gap Date Value Ref Range Status 06/02/2024 8 8 - 15 mmol/L Final eGFR- Date Value Ref Range Status (more content not included)... [facility] 10-28-2024 Telephone encounter Note Agree with plan for dietary modification prednisone will be cut in half tomorrow [facility] 10-28-2024 Miscellaneous Notes Agree with plan for dietary modification prednisone will be cut in half tomorrow Images from the original note were not included. I spoke with Sid to discuss her high glucose readings. Due to an arthritis flare she was put on prednisone. Started with 20mg daily on Monday. Tomorrow she will decrease dose to 10mg daily for 3 days. Last DM meds: Lantus 30 units 1230 am 10/28 Ozempic 1mg 10/23 Current glucose 358 only food intake today was 2 [place] Last night for dinner she ate 3 pieces of pizza, a slice ice cream cake and a couple cookies before bed. Encouraged Sid to reduce simple carb intake while glucose is high. Symptoms: thirst denies any other symptoms. Patient called and stated she's had an arthritis flare and she had to take prednisone staring last Monday . Her blood sugars are currently 380 and steady rising. Patients only current symptom is excessive thirst. Patient also mentioned she is on the gianfranco 3 and you'll be able to check when her numbers started to spike. Please advise Ph.[phone] Diandra Powell Chief Service Observer II Diabetes & Endocrinology X-20 documented in this encounter [facility] 10-28-2024 Telephone encounter Note Images from the original note were not included. I spoke with Sid to discuss her high glucose readings. Due to an arthritis flare she was put on prednisone. Started with 20mg daily on Monday. Tomorrow she will decrease dose to 10mg daily for 3 days. Last DM meds: Lantus 30 units 1230 am 10/28 Ozempic 1mg 10/23 Current glucose 358 only food intake today was 2 [place] Last night for dinner she ate 3 pieces of pizza, a slice ice cream cake and a couple cookies before bed. Encouraged Sid to reduce simple carb intake while glucose is high. Symptoms: thirst denies any other symptoms. [facility] Work Phone: 10-28-2024 Telephone encounter Note Patient called and stated she's had an arthritis flare and she had to take prednisone staring last Monday . Her blood sugars are currently 380 and steady rising. Patients only current symptom is excessive thirst. Patient also mentioned she is on the gianfranco 3 and you'll be able to check when her numbers started to spike. Please advise Ph.[phone] Dinadra Powell Chief Service Observer II Diabetes & Endocrinology X-20 [facility] 10-25-2024 History of Present illness Narrative Follow-up of seronegative spondyloarthropathy HPI: To review, Sid Lezama is a 48 year old female - Since teenage years, with intermittent joint pain and swelling. Affected joints include the wrists, MCPs, PIPs, knees, ankles and toes. Also gets hip pain. Eases with movement/activity. Worst pain is evening. - In April, diagnosed with Crohn's per colonoscopy. Underwent surgery to remove the large intestine. - In , had a rectal fistula so tried remicade (stopped s/p 6th dose for rash). Rectal stump was removed after that. - Sees pain management for serial spinal injections - In , diagnosed with psoriasis over scalp, knees and dorsal feet. - In Jun, reported no GI issues, no need for medication or surgery for Crohn's since . Diagnosed with SpA. Advised humira which she decided against starting given c/f potential SE - Since February, has been seeing holistic provider. Taking supplements - In Jul, reported she had lost 20 lbs. Overall stable. - In Jun, reported she had 3 doses of stelara which she started after the prior visit. Had had 3 doses thus far. Improved psoriasis, not yet of joints - in 12/2023, reports 70-80% improved in the joints and skin with the stelara. Was due 12/22/23, needs more. 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 Lumbago 01/10/2007 Myalgia and myositis, unspecified Pain management Dr Stern Nonalcoholic fatty liver disease 08/24/2007 Other and unspecified hyperlipidemia 01/10/2007 PMH - PAST MEDICAL HISTORY OF Cx scarred to post vag wall/difficult exam Pneumonia, organism unspecified(486) 01/10/2007 Regional enteritis of large intestine (HCC) 08/07/2006 Retention of urine, unspecified 01/01/2007 Rheumatoid arthritis(714.0) Dr. Mc, [facility] Type II or unspecified type diabetes mellitus without mention of complication, not stated as uncontrolled Ureterolithiasis 07/18/2019 GERD PAST SURGICAL HISTORY Procedure Laterality Date ADENOIDECTOMY PRIMARY <AGE 11 1986 Adenoidectomy ARTHROSCOPY KNEE DIAGNOSTIC W/WO SYNOVIAL BX SPX 1989 Arthroscopy, knee, left BRNCHSC INCL FLUOR GDNCE DX W/CELL WASHG SPX 01/2007 Bronchoscopy EGD 05/02/2023 EPIDURAL 2010 multiple ones done by Dr. Beckett ILEOSCOPY 05/02/2023 PAST SURGICAL HISTORY OF 06/2000 ILEOSTOMY/COLECTOMY PAST SURGICAL HISTORY OF 1993 CRYOCAUTERY/ MILD DYSPLASIA PAST SURGICAL HISTORY OF 03/2006 Abdominal abscess with anal fistula PRCTECT COMPL W/STOT/TOT COLCT W/VENEER JOINER BXS 12/05/2006 AP endoanal proctectomy SHOULDER ARTHROSCOPY/SURGERY Left 05/06/2020 Rotator cuff debridement, subacromial decompression/arthroplasty TONSILLECTOMY PRIMARY/SECONDARY <AGE 11 1986 Tonsillectomy ALLERGIES Allergen Reactions Azithromycin Unknown thinks a rash Dilaudid [Hydromorp* Swelling migraines Levemir [Insulin De* Other: See Comments Urine turned dark and smelly Methadone Swelling migraine Morphine Swelling migraines Remicade [Inflixima* Intolerance, Rash broke out in blisters with the 6th dose. Ultram [Tramadol Hc* Swelling migraines INTERVAL HISTORY She is here for follow up. She reports current flare. She states stelara starts to wear off 3 weeks prior to the next injection. Her next injection is due in 11/2024. She is planning to get a cervical spine injection for neck pain. Bowel symptoms have been stable. She takes percocet for pain. Sites of pain: R index finger, L hip, neck, L knee, pain rated 2/10 Joint swelling: fingers EMS: yes, lasting 30 minutes Psoriasis: neck, hands, she uses coconut oil No recent infections. Tolerating meds. Answers submitted by the patient for this visit: Review of Systems Rheumatology (Submitted on 10/21/2024) Fever : No Recent unintentional weight change: No Eye pain: No Eye redness: No Vision Disturbance: No Eye Dryness: No Nosebleeds: No Sores in your mouth: No Trouble Swallowing: No Dry Mouth: No Chest pain: No Leg Swelling: No A cough: No Shortness of breath: No Pain with breathing: No Heartburn: No Abdominal pain: No Diarrhea: Yes Black tarry stools: No Blood in urine: No Pain or burning with urination: No Joint pain or stiffness: Yes Muscle weakness: No Muscle aches: Yes Joint swelling: Yes Morning Stiffness in Joints: Yes A rash: No Skin Color Changes: No Hair Loss: Yes Nail Changes: Yes Headaches: No Numbness: Yes Memory Loss: No Swollen Glands: No Current Outpatient Medications Medication Sig pantoprazole DR (PROTONIX) 20 mg tablet Take 1 tablet by mouth daily before breakfast. Take on empty stomach, 1/2 hr before meal. insulin glargine (LANTUS SOLOSTAR U-100 INSULIN) 100 unit/mL (3 mL) INJECT 20 UNITS UNDER THE SKIN EVERY MORNING blood sugar diagnostic (ACCU-CHEK GUIDE TEST STRIPS) test strip USE WITH BLOOD GLUCOSE TEST THREE TIMES A DAY. Lancets (ACCU-CHEK FASTCLIX LANCET DRUM) Use as instructed to check blood glucose up to 2 times daily. E11.9 Insulin Lynch, Disposable, (DROPLET PEN NEEDLE) 32 gauge x 5/32 USE TO INJECT ONE TIME DAILY Lancing Device with Lancets ACCU CHEK FASTCLIX LANCET *DEVICE* use to check blood glucose up to 2 times per day as instructed. E11.9 GVOKE PFS 1-PACK SYRINGE 1 mg/0.2 mL syrg INJECT 0.2 ML UNDER THE SKIN NEEDED. semaglutide (OZEMPIC) 1 mg/dose (4 mg/3 mL) pen Inject 1 mg subcutaneously one time a week. Patient should start on May 13, 2024. Blood-Glucose Sensor (FREESTYLE GIANFRANCO 3 SENSOR) matilda Apply new sensor every fourteen (14) days to upper arm. E11.9 Blood-Glucose Meter,Continuous (FREESTYLE GIANFRANCO 3 READER) [facility] Use to check blood sugar at least four (4) times daily. ustekinumab (STELARA) 45 mg/0.5 mL sub-Q syringe Inject 45 mg (1 syringe) subcutaneously every 12 weeks clobetasol (TEMOVATE) 0.05 % ointment Apply to affected area two times a day. Face. Feet. Two weeks on and two weeks off, per [facility]. fexofenadine HCl (LELA ORAL) Take by mouth. levonorgestrel (MIRENA) 20 mcg/24 hours (8 yrs) 52 mg IUD 1 Each by INTRAUTERINE route as directed. oxyCODONE-acetaminophen (PERCOCET) 5-325 mg tablet TAKE 1 TABLET BY MOUTH 3 TIMES A DAY NEEDED FOR 28 DAYS vits62/FA/om3/dha/epa ( GUMMY ORAL) Take 2 Doses by mouth once daily. Blood-Glucose Meter (ACCU-CHEK DIANNE) Test blood sugar(s) 2 times daily. Dx: Type 2 DM - Controlled E11.9 Insulin: No, Accu-check brand covered by insurance Ascorbic Acid 500 mg chew Take 1,000 mg by mouth once daily. With rosetashi elderberry fruit (ELDERBERRY ORAL) Take by mouth. COMPOUNDED PRESCRIPTION 1. V44.2 Ileostomy status (HCC) (primary diagnosis) 2. 555.1 Regional enteritis of large intestine (HCC) Ileostomy Supplies. 1. Pouches, 2. Planges, 3. Felipe seals, 4. Stoma adhesive, 5. Stoma powder, 6. Skin preps, 7. Adhesive remover wipes. Dispense 1 year supplies. tiZANidine (ZANAFLEX) 4 mg tablet Take by mouth. . Takes 1 tablet at bedtime. No current facility-administered medications for this visit. FAMILY HISTORY Problem Relation Age of Onset Alcohol/Drug Mother Hypertension Mother COPD other (vascular disease) Mother other (sleep apnea) Mother other (heart murmur) Mother Alcohol/Drug Father Cancer Father liver Asthma Brother Hypertension Daughter Diabetes Maternal Grandmother Stroke Maternal Grandmother Heart Maternal Grandmother Emphysema Paternal Grandmother Diabetes Paternal Grandfather Macular Degen Paternal Grandfather Anesthesia Problems No Family History F-hemochromatosis, in 13 from it. SOCIAL HISTORY: Lives in [place], [place] with spouse. 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 1 daughter, 24 yo lives with her. 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 Tobacco use: None Alcohol use: None Drug use: None PHYSICAL EXAM: BP 136/83 (BP Site: Right Arm, BP Position: Sitting, BP Cuff Size: Regular Adult) Pulse 68 Temp 36.9 C (98.5 F) Ht 155.5 cm (5' 1.22) Wt 71.6 kg (157 lb 13.6 oz) LMP 07/25/2018 BMI 29.61 kg/m CONSTITUTIONAL: Well-appearing, in NAD. SKIN: Psoriasis noted to hands. No sclerodactyly, calcinosis, telangiectasias, digital ulcers, or skin thickening. EYES: No scleral icterus or conjunctivitis. ENT and Mouth: External ears normal. RESPIRATORY: Normal breath sounds, clear to auscultation. CARDIOVASCULAR: Regular rate and rhythm, no murmurs or rubs EXTREMITIES/LYMPH: No edema bilaterally NEURO: Awake, alert and oriented, antalgic gait MUSCULOSKELETAL: JOINT APPEARANCE: No erythema or warmth of any upper or lower extremity joint. RANGE OF MOTION: Able to fully close fists and curl fingers bilaterally. SWOLLEN JOINTS/SYNOVITIS: No synovitis of any joint. TENDER JOINTS: R shoulder, b/l elbows, R 2nd pip and NIK + ? Cyst to R 2nd dip No tenderness to spine *Jun Widespread Pain Index: 16 (0-19) Symptoms Severity Scale: 6 (0-12) WPI>7 and SS Scale>5 OR WPI 3-6 and SS Scale >9 consistent with fibromyalgia Labs reviewed and discussed with the patient: Latest Ref Rng 06/02/2024 WBC 3.70 - 11.00 k/uL 6.34 RBC 3.90 - 5.20 m/uL 4.79 Hemoglobin 11.5 - 15.5 g/dL 14.1 Hematocrit 36.0 - 46.0 % 43.0 MCV 80.0 - 100.0 fL 89.8 MCH 26.0 - 34.0 pg 29.4 MCHC 30.5 - 36.0 g/dL 32.8 RDW-CV 11.5 - 15.0 % 12.1 Platelet Count 150 - 400 k/uL 224 MPV 9.0 - 12.7 fL 10.4 Neut% % 39.8 Abs Neut (ANC) 1.45 - 7.50 k/uL 2.53 Lymph% % 48.7 Abs Lymph 1.00 - 4.00 k/uL 3.09 [place]% % 7.3 Abs [place] <0.87 k/uL 0.46 Eosin% % 3.2 Abs Eosin <0.46 k/uL 0.20 Baso% % 0.8 Abs Baso <0.11 k/uL 0.05 Immature Gran % % 0.2 IMMATURE GRANS (ABS) <0.10 k/uL <0.03 DTYPE Auto Protein, Total 6.3 - 8.0 g/dL 6.5 Albumin 3.9 - 4.9 g/dL 4.2 Calcium 8.5 - 10.2 mg/dL 10.1 Bilirubin, Total 0.2 - 1.3 mg/dL 0.3 Alkaline Phosphatase 34 - 123 U/L 129 (H) AST 13 - 35 U/L 23 ALT 7 - 38 U/L 32 Glucose 74 - 99 mg/dL 155 (H) BUN 7 - 21 mg/dL 13 Creatinine 0.58 - 0.96 mg/dL 0.67 Sodium 136 - 144 mmol/L 140 Potassium 3.7 - 5.1 mmol/L 3.8 Chloride 98 - 107 mmol/L 105 CO2 22 - 30 mmol/L 27 Anion Gap 8 - 15 mmol/L 8 eGFR >=60 mL/min/1.73m 107 *April neg quant gold Component Latest Ref Rng & Units 04/19/2022 Hep C Antibody IA Negative Negative Hep B Surface Ag Negative Negative Hep B Surface Ab, Qual Negative Negative Hep B Core Ab, Total Negative Negative Component Latest Ref Rng & Units 09/19/2011 12/21/2011 Rheumatoid Factor <20 IU/mL <7 CCP Antibody, IgG <20 Units <15 HLA B27 NEGAT Positive (A) INOCENCIO by EIA <1.5 OD Ratio 0.4 Anti-SSA <1.0 AI <0.2 Anti-SSB <1.0 AI <0.2 STUDIES: *April MRI R shoulder- mild supraspinatus tendinosis *Oct xray L foot- Calcaneal enthesophytes. *Oct MRI pelvis- NO ACUTE ABNORMALITY Sacroiliac joints: Punctate area of subchondral edema within the right sacrum at the SI joint on series 8 image 11, doubtful clinical significance. *Sep xray SI joints- Asymmetrical sacroiliitis involving the left SI joint. *Sep xray hands/feet- Mild degenerative change. IMPRESSION and PLAN: 1. Seronegative spondyloarthropathy: With joint pain/swelling responsive to systemic effect of localized steroid joint injections in the setting of a positive HLA-B27, x-rays show L SI joint sacroiliitis, history of Crohn's and psoriasis. Remicade with blisters. Stelara with improvement in the skin and joints. With current flare. - Continue stelara 45mg SC every 12 weeks. She prefers to continue Stelara. - continue HEP - check labs in 11/2024 - will prescribe a steroid course for her current symptoms. I advised that steroids can cause psoriasis to worsen a times. Advised that she avoid NSAIDS and monitor her glucose closely while taking prednisone. 2. Spinal osteoarthritis: - Continue pain clinic management (not [facility]) 3. R rotator cuff tear: - Orthopedic management 4. General health maintenance: - Not planning to get the covid vaccine as she had covid in March - Advised to continue follow-up with PCP for routine health maintenance and malignancy screening Follow-up in 5 months, or sooner if needed Thank you for allowing me to participate in the care of your patient. Medical Decision Making: Problems: Moderate: 1+ chronic illnesses with change and 2+ stable chronic illnesses Data: Unique test result(s) reviewed: 3+ Unique test(s) ordered: 3+ Risk: Moderate: Drug management Medical Decision Making Level: 4 - Moderate Steve Juarez APRN.SQL ANALYST documented in this encounter [facility] 10-25-2024 Note HNO ID: [id number] Author: STEVE JUAREZ APRN.SQL ANALYST Service: ? Author Type: Nurse Practitioner Type: Progress Notes Filed: 10/25/2024 11:00 Note Text: Follow-up of seronegative spondyloarthropathy HPI: To review, Sid Lezama is a 48 year old female - Since teenage years, with intermittent joint pain and swelling. Affected joints include the wrists, MCPs, PIPs, knees, ankles and toes. Also gets hip pain. Eases with movement/activity. Worst pain is evening. - In April, diagnosed with Crohn's per colonoscopy. Underwent surgery to remove the large intestine. - In , had a rectal fistula so tried remicade (stopped s/p 6th dose for rash). Rectal stump was removed after that. - Sees pain management for serial spinal injections - In , diagnosed with psoriasis over scalp, knees and dorsal feet. - In Jun, reported no GI issues, no need for medication or surgery for Crohn's since . Diagnosed with SpA. Advised humira which she decided against starting given c/f potential SE - Since February, has been seeing holistic provider. Taking supplements - In Jul, reported she had lost 20 lbs. Overall stable. - In Jun, reported she had 3 doses of stelara which she started after the prior visit. Had had 3 doses thus far. Improved psoriasis, not yet of joints - in 12/2023, reports 70-80% improved in the joints and skin with the stelara. Was due 12/22/23, needs more. 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 Lumbago 01/10/2007 Myalgia and myositis, unspecified Pain management Dr Stern Nonalcoholic fatty liver disease 08/24/2007 Other and unspecified hyperlipidemia 01/10/2007 PMH - PAST MEDICAL HISTORY OF Cx scarred to post vag wall/difficult exam Pneumonia, organism unspecified(486) 01/10/2007 Regional enteritis of large intestine (HCC) 08/07/2006 Retention of urine, unspecified 01/01/2007 Rheumatoid arthritis(714.0) Dr. Mc, [facility] Type II or unspecified type diabetes mellitus without mention of complication, not stated as uncontrolled Ureterolithiasis 07/18/2019 GERD PAST SURGICAL HISTORY Procedure Laterality Date ADENOIDECTOMY PRIMARY Adenoidectomy ARTHROSCOPY KNEE DIAGNOSTIC W/WO SYNOVIAL BX SPX 1989 Arthroscopy, knee, left BRNCHSC INCL FLUOR GDNCE DX W/CELL WASHG SPX 01/2007 Bronchoscopy EGD 05/02/2023 EPIDURAL 2011 multiple ones done by Dr. Beckett ILEOSCOPY 05/02/2023 PAST SURGICAL HISTORY OF 06/2000 ILEOSTOMY/COLECTOMY PAST SURGICAL HISTORY OF 1993 CRYOCAUTERY/ MILD DYSPLASIA PAST SURGICAL HISTORY OF 03/2006 Abdominal abscess with anal fistula PRCTECT COMPL W/STOT/TOT COLCT W/VENEER JOINER BXS 12/05/2006 AP endoanal proctectomy SHOULDER ARTHROSCOPY/SURGERY Left 05/06/2020 Rotator cuff debridement, subacromial decompression/arthroplasty TONSILLECTOMY PRIMARY/SECONDARY Tonsillectomy ALLERGIES Allergen Reactions Azithromycin Unknown thinks a rash Dilaudid [Hydromorp* Swelling migraines Levemir [Insulin De* Other: See Comments Urine turned dark and smelly Methadone Swelling migraine Morphine Swelling migraines Remicade [Inflixima* Intolerance, Rash broke out in blisters with the 6th dose. Ultram [Tramadol Hc* Swelling migraines INTERVAL HISTORY She is here for follow up. She reports current flare. She states stelara starts to wear off 3 weeks prior to the next injection. Her next injection is due in 11/2024. She is planning to get a cervical spine injection for neck pain. Bowel symptoms have been stable. She takes percocet for pain. Sites of pain: R index finger, L hip, neck, L knee, pain rated 2/10 Joint swelling: fingers EMS: yes, lasting 30 minutes Psoriasis: neck, hands, she uses coconut oil No recent infections. Tolerating meds. Answers submitted by the patient for this visit: Review of Systems Rheumatology (Submitted on 10/21/2024) Fever : No Recent unintentional weight change: No Eye pain: No Eye redness: No Vision Disturbance: No Eye Dryness: No Nosebleeds: No Sores in your mouth: No Trouble Swallowing: No Dry Mouth: No Chest pain: No Leg Swelling: No A cough: No Shortness of breath: No Pain with breathing: No Heartburn: No Abdominal pain: No Diarrhea: Yes Black tarry stools: No Blood in urine: No Pain or burning with urination: No Joint pain or stiffness: Yes Muscle weakness: No Muscle aches: Yes Joint swelling: Yes Morning Stiffness in Joints: Yes A rash: No Skin Color Changes: No Hair (more content not included)... 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 documented in this encounter [facility] 10-22-2024 Instructions Steve Juarez APRN.LORI - 10/22/2024 3:01 PM EST Please have labs done around 12/03/2024 documented in this encounter [facility] 10-21-2024 Telephone encounter Note Patient has been identified by name and date of : Yes Patient phones for refill(s): Requested Prescriptions Pending Prescriptions Disp Refills pantoprazole DR (PROTONIX) 20 mg tablet 90 tablet 1 Sig: Take 1 tablet by mouth daily before breakfast. Take on empty stomach, 1/2 hr before meal. Date of last office visit in primary care: 08/12/2024 Date of next office visit in primary care: 08/12/2025 Please advise. Thank you. Laina Monroe LPN. [facility] 10-21-2024 Miscellaneous Notes Patient has been identified by name and date of : Yes Patient phones for refill(s): Requested Prescriptions Pending Prescriptions Disp Refills pantoprazole DR (PROTONIX) 20 mg tablet 90 tablet 1 Sig: Take 1 tablet by mouth daily before breakfast. Take on empty stomach, 1/2 hr before meal. Date of last office visit in primary care: 08/12/2024 Date of next office visit in primary care: 08/12/2025 Please advise. Thank you. Laina Monroe LPN. documented in this encounter [facility] 08-30-2024 History of Present illness Narrative [facility] Specialty Refill Assessment Medication(s): Fabianfrancesra Patient's current medication list and adherence status to current therapy were reviewed by Specialty Pharmacy clinical pharmacist to identify any new drug interactions or non-compliance to therapy. Therapy continues to be appropriate for disease, patient response, and medical condition. Verification of therapeutic benefit and effectiveness with current therapy was completed. Adverse events, barriers in adherence, and side effects were assessed and addressed if applicable. Will proceed with refill with no changes in therapy - patient progressing towards achieving therapeutic goals based on medication-specific laboratory parameters, disease state markers and outcomes. Office/provider notes have been reviewed prior to dispensing the medication. Ustekinumab (Stelara) - IL-12/23 Inhibitor CBC with differential (baseline); complete metabolic panel (baseline); tuberculosis (TB) screening prior to initiating and during therapy (chest X-ray if TB positive); hepatitis C virus/hepatitis B virus (HBV) screening prior to initiating (all patients), HBV carriers (during and for several months following therapy); HIV screening (baseline) (AAD/NPF [Menter 2019]); monitor for signs/symptoms of infection, posterior reversible encephalopathy syndrome, and squamous cell skin carcinoma. CBC with differential: WBC Date Value Ref Range Status 06/02/2024 6.34 3.70 - 11.00 k/uL Final RBC Date Value Ref Range Status 06/02/2024 4.79 3.90 - 5.20 m/uL Final Hemoglobin Date Value Ref Range Status 06/02/2024 14.1 11.5 - 15.5 g/dL Final Hematocrit Date Value Ref Range Status 06/02/2024 43.0 36.0 - 46.0 % Final MCV Date Value Ref Range Status 06/02/2024 89.8 80.0 - 100.0 fL Final MCH Date Value Ref Range Status 06/02/2024 29.4 26.0 - 34.0 pg Final MCHC Date Value Ref Range Status 06/02/2024 32.8 30.5 - 36.0 g/dL Final RDW-CV Date Value Ref Range Status 06/02/2024 12.1 11.5 - 15.0 % Final Platelet Count Date Value Ref Range Status 06/02/2024 224 150 - 400 k/uL Final MPV Date Value Ref Range Status 06/02/2024 10.4 9.0 - 12.7 fL Final Neutrophils % Date Value Ref Range Status 06/02/2024 39.8 % Final Lymphocytes % Date Value Ref Range Status 06/02/2024 48.7 % Final Monocytes % Date Value Ref Range Status 06/02/2024 7.3 % Final Eosinophils % Date Value Ref Range Status 06/02/2024 3.2 % Final Basophils % Date Value Ref Range Status 06/02/2024 0.8 % Final Abs Neut Date Value Ref Range Status 06/02/2024 2.53 1.45 - 7.50 k/uL Final Abs [place] Date Value Ref Range Status 06/02/2024 0.46 <0.87 k/uL Final Abs Eosin Date Value Ref Range Status 06/02/2024 0.20 <0.46 k/uL Final Abs Baso Date Value Ref Range Status 06/02/2024 0.05 <0.11 k/uL Final CMP: Albumin Date Value Ref Range Status 06/02/2024 4.2 3.9 - 4.9 g/dL Final Calcium, Total Date Value Ref Range Status 06/02/2024 10.1 8.5 - 10.2 mg/dL Final Bilirubin, Total Date Value Ref Range Status 06/02/2024 0.3 0.2 - 1.3 mg/dL Final Alkaline Phosphatase Date Value Ref Range Status 06/02/2024 129 (H) 34 - 123 U/L Final AST Date Value Ref Range Status 06/02/2024 23 13 - 35 U/L Final ALT Date Value Ref Range Status 06/02/2024 32 7 - 38 U/L Final Glucose Date Value Ref Range Status 06/02/2024 155 (H) 74 - 99 mg/dL Final Comment: The [place] [employer] (ADA) provides guidance for cutoff values for fasting glucose and random glucose. The ADA defines fasting as no caloric intake for at least 8 hours. Fasting plasma glucose results between 100 to 125 [...] Standards of Medical Care in Diabetes 2016, [place] [employer]. Diabetes Care. 2016.39(Suppl 1). BUN Date Value Ref Range Status 06/02/2024 13 7 - 21 mg/dL Final Creatinine Date Value Ref Range Status 06/02/2024 0.67 0.58 - 0.96 mg/dL Final Sodium Date Value Ref Range Status 06/02/2024 140 136 - 144 mmol/L Final Potassium Date Value Ref Range Status 06/02/2024 3.8 3.7 - 5.1 mmol/L Final Chloride Date Value Ref Range Status 06/02/2024 105 98 - 107 mmol/L Final CO2 Date Value Ref Range Status 06/02/2024 27 22 - 30 mmol/L Final Anion Gap Date Value Ref Range Status 06/02/2024 8 8 - 15 mmol/L Final eGFR- Date Value Ref Range Status 12/21/2021 >60 Final Estimated Glomerular Filtration Rate Date Value Ref Range Status 06/02/2024 107 >=60 mL/min/1.73m Final Comment: Estimated Glomerular Filtration Rate (eGFR) is calculated using the 2020 CKD-EPI creatinine equation. This equation utilizes serum creatinine, sex, and age as parameters. The creatinine assay has traceable calibration to isotope dilution-mass spectrometry. Refer to KDIGO guidelines for clinical interpretation. In patients with unstable renal function, e.g. those with acute kidney injury, the eGFR may not accurately reflect actual GFR. HBsAg Date Value Ref Range Status 06/18/2021 Negative Negative Final Hep B Surface Ab, Qual Date Value Ref Range Status 04/19/2022 Negative Negative Final Comment: No evidence of current or past infection with Hepatitis B virus. Should recent infection be suspected, repeat testing may be considered 3-4 weeks after this draw. Hepatitis B Core Ab, Total Date Value Ref Range Status 04/19/2022 Negative Negative Final Comment: No evidence of current or past infection with Hepatitis B virus. Should recent infection be suspected, repeat testing may be considered 3-4 weeks after this draw. Hep C Antibody IA Date Value Ref Range Status 04/19/2022 Negative Negative Final Comment: The result suggests no evidence of active infection with Hepatitis C virus. Should recent infection be suspected, repeat testing may be considered 4-6 weeks after this draw. TB Result Date Value Ref Range Status 04/19/2022 Negative Final No results found for: HIV1AB Current Outpatient Medications on File Prior to Visit Medication Sig blood sugar diagnostic (ACCU-CHEK GUIDE TEST STRIPS) test strip USE WITH BLOOD GLUCOSE TEST THREE TIMES A DAY. pantoprazole DR (PROTONIX) 20 mg tablet Take 1 tablet by mouth daily before breakfast. Take on empty stomach, 1/2 hr before meal. Lancets (ACCU-CHEK FASTCLIX LANCET DRUM) Use as instructed to check blood glucose up to 2 times daily. E11.9 Insulin Lynch, Disposable, (DROPLET PEN NEEDLE) 32 gauge x 5/32 USE TO INJECT ONE TIME DAILY Lancing Device with Lancets ACCU CHEK FASTCLIX LANCET *DEVICE* use to check blood glucose up to 2 times per day as instructed. E11.9 GVOKE PFS 1-PACK SYRINGE 1 mg/0.2 mL syrg INJECT 0.2 ML UNDER THE SKIN NEEDED. insulin glargine (LANTUS SOLOSTAR U-100 INSULIN) 100 unit/mL (3 mL) INJECT 25 UNITS UNDER THE SKIN bedtime semaglutide (OZEMPIC) 1 mg/dose (4 mg/3 mL) pen Inject 1 mg subcutaneously one time a week. Patient should start on May 13, 2024. Blood-Glucose Sensor (FREESTYLE GIANFRANCO 3 SENSOR) matilda Apply new sensor every fourteen (14) days to upper arm. E11.9 Blood-Glucose Meter,Continuous (FREESTYLE GIANFRANCO 3 READER) [facility] Use to check blood sugar at least four (4) times daily. ustekinumab (STELARA) 45 mg/0.5 mL sub-Q syringe Inject 45 mg (1 syringe) subcutaneously every 12 weeks clobetasol (TEMOVATE) 0.05 % ointment Apply to affected area two times a day. Face. Feet. Two weeks on and two weeks off, per [facility] Dermatology. fexofenadine HCl (LELA ORAL) Take by mouth. levonorgestrel (MIRENA) 20 mcg/24 hours (8 yrs) 52 mg IUD 1 Each by INTRAUTERINE route as directed. oxyCODONE-acetaminophen (PERCOCET) 5-325 mg tablet TAKE 1 TABLET BY MOUTH 3 TIMES A DAY NEEDED FOR 28 DAYS vits62/FA/om3/dha/epa ( GUMMY ORAL) Take 2 Doses by mouth once daily. Blood-Glucose Meter (ACCU-CHEK DIANNE) Test blood sugar(s) 2 times daily. Dx: Type 2 DM - Controlled E11.9 Insulin: No, Accu-check brand covered by insurance Ascorbic Acid 500 mg chew Take 1,000 mg by mouth once daily. With rosehips elderberry fruit (ELDERBERRY ORAL) Take by mouth. COMPOUNDED PRESCRIPTION 1. V44.2 Ileostomy status (HCC) (primary diagnosis) 2. 555.1 Regional enteritis of large intestine (HCC) Ileostomy Supplies. 1. Pouches, 2. Planges, 3. Felipe seals, 4. Stoma adhesive, 5. Stoma powder, 6. Skin preps, 7. Adhesive remover wipes. Dispense 1 year supplies. tiZANidine (ZANAFLEX) 4 mg tablet Take by mouth. . Takes 1 tablet at bedtime. No current facility-administered medications on file prior to visit. Canceled Appointments: Future Appointments Date Time Provider Department Center 10/25/2024 10:00 AM Steve Juarez, PERMIT TECHNICIAN.LORI [facility] 11/18/2024 11:00 AM Pharmacist, Specialty[facility] 2 SPCPHARMSVC None 11/19/2024 9:00 AM Alie Stallworth, PERMIT TECHNICIAN.SQL ANALYST [facility] 03/24/2025 10:00 AM Scott Gold MD [facility] 07/18/2025 9:00 AM [facility] MOB 1 RUSWS [place] 07/30/2025 3:00 PM Samy Barragan PA-C UROLST [facility] 08/12/2025 8:00 AM Grayson Phan MD INTMWS [facility] [place] 08/25/2025 10:00 AM Steve Juaerz, PERMIT TECHNICIAN.LORI [facility] [place] [facility] Clinical Pharmacist - Biologics: Allergy, Immunology, and Inflammatory [facility] ; Pool: P [facility] Pool #: [id number] Feeder Operator Assessment Patient confirmed: Yes Med/dose confirmed: Yes Supplies needed: No supplies needed Missed doses: No Estimated days supply on hand: 0 Next cycle/dose due: 09/09/24 Copay amount: 0 Payment confirmed: Yes Delivery method: FedEx Signature required: Waived on patient request Delivery address: [address] [address] Delivery date: 09/04/24 Questions or concerns for the pharmacist?: No Did you have any side effects believed to be related to this medication, that resulted in hospitalization?: No Current Outpatient Medications on File Prior to Visit Medication Sig blood sugar diagnostic (ACCU-CHEK GUIDE TEST STRIPS) test strip USE WITH BLOOD GLUCOSE TEST THREE TIMES A DAY. pantoprazole DR (PROTONIX) 20 mg tablet Take 1 tablet by mouth daily before breakfast. Take on empty stomach, 1/2 hr before meal. Lancets (ACCU-CHEK FASTCLIX LANCET DRUM) Use as instructed to check blood glucose up to 2 times daily. E11.9 Insulin Lynch, Disposable, (DROPLET PEN NEEDLE) 32 gauge x 5/32 USE TO INJECT ONE TIME DAILY Lancing Device with Lancets ACCU CHEK FASTCLIX LANCET *DEVICE* use to check blood glucose up to 2 times per day as instructed. E11.9 GVOKE PFS 1-PACK SYRINGE 1 mg/0.2 mL syrg INJECT 0.2 ML UNDER THE SKIN NEEDED. insulin glargine (LANTUS SOLOSTAR U-100 INSULIN) 100 unit/mL (3 mL) INJECT 25 UNITS UNDER THE SKIN bedtime semaglutide (OZEMPIC) 1 mg/dose (4 mg/3 mL) pen Inject 1 mg subcutaneously one time a week. Patient should start on May 13, 2024. Blood-Glucose Sensor (FREESTYLE GIANFRANCO 3 SENSOR) matilda Apply new sensor every fourteen (14) days to upper arm. E11.9 Blood-Glucose Meter,Continuous (FREESTYLE GIANFRANCO 3 READER) [facility] Use to check blood sugar at least four (4) times daily. ustekinumab (STELARA) 45 mg/0.5 mL sub-Q syringe Inject 45 mg (1 syringe) subcutaneously every 12 weeks clobetasol (TEMOVATE) 0.05 % ointment Apply to affected area two times a day. Face. Feet. Two weeks on and two weeks off, per [facility] D[facility]at[facility]. fexofenadine HCl (LELA ORAL) Take by mouth. levonorgestrel (MIRENA) 20 mcg/24 hours (8 yrs) 52 mg IUD 1 Each by INTRAUTERINE route as directed. oxyCODONE-acetaminophen (PERCOCET) 5-325 mg tablet TAKE 1 TABLET BY MOUTH 3 TIMES A DAY NEEDED FOR 28 DAYS vits62/FA/om3/dha/epa ( GUMMY ORAL) Take 2 Doses by mouth once daily. Blood-Glucose Meter (ACCU-CHEK DIANNE) Test blood sugar(s) 2 times daily. Dx: Type 2 DM - Controlled E11.9 Insulin: No, Accu-check brand covered by insurance Ascorbic Acid 500 mg chew Take 1,000 mg by mouth once daily. With rosehips elderberry fruit (ELDERBERRY ORAL) Take by mouth. COMPOUNDED PRESCRIPTION 1. V44.2 Ileostomy status (HCC) (primary diagnosis) 2. 555.1 Regional enteritis of large intestine (HCC) Ileostomy Supplies. 1. Pouches, 2. Planges, 3. Felipe seals, 4. Stoma adhesive, 5. Stoma powder, 6. Skin preps, 7. Adhesive remover wipes. Dispense 1 year supplies. tiZANidine (ZANAFLEX) 4 mg tablet Take by mouth. . Takes 1 tablet at bedtime. No current facility-administered medications on file prior to visit. [facility] SPECIALTY CLINICAL ASSESSMENT - INFLAMMATORY CONDITIONS V6: Assessment to use: Refill Assessment of injection issues: Yes Infection screening, including annual TB assessment when applicable to medication: Yes Current medication list (including drug interaction assessment): Yes Experience of adverse reactions to the medication: Yes Date of influenza vaccination reminder: 12/22/2022 Date of most recent vaccination assessment: 12/22/2022 Treatment Plan Information: Seronegative spondyloarthropathy Crohn's disease with complication, unspecified gastrointestinal tract location (HCC) Osteoarthritis of spine, unspecified spinal osteoarthritis complication status, unspecified spinal region Stelara - Inject 45 mg (1 syringe) subcutaneously at weeks 0 and 4 followed by every 12 weeks thereafter. Est. Tx Plan Start Date: 12/23/2022 Estimated Start Date Info: No information available Est. Estimated Treatment Duration: Until loss of efficacy and/or no longer tolerated. Shira Matta CPhT, Inflammatory/Allergy [facility] [phone] documented in this encounter [facility] 08-30-2024 Note HNO ID: [id number] Author: ORNELAS RPh Service: ? Author Type: ? Type: Progress Notes Filed: 09/02/2024 16:42 Note Text: [facility] Specialty Refill Assessment Medication(s): Stelara Patient's current medication list and adherence status to current therapy were reviewed by Specialty Pharmacy clinical pharmacist to identify any new drug interactions or non-compliance to therapy. Therapy continues to be appropriate for disease, patient response, and medical condition. Verification of therapeutic benefit and effectiveness with current therapy was completed. Adverse events, barriers in adherence, and side effects were assessed and addressed if applicable. Will proceed with refill with no changes in therapy - patient progressing towards achieving therapeutic goals based on medication-specific laboratory parameters, disease state markers and outcomes. Office/provider notes have been reviewed prior to dispensing the medication. Ustekinumab (Stelara) - IL-12/23 Inhibitor CBC with differential (baseline); complete metabolic panel (baseline); tuberculosis (TB) screening prior to initiating and during therapy (chest X-ray if TB positive); hepatitis C virus/hepatitis B virus (HBV) screening prior to initiating (all patients), HBV carriers (during and for several months following therapy); HIV screening (baseline) (AAD/NPF [Menter 2019]); monitor for signs/symptoms of infection, posterior reversible encephalopathy syndrome, and squamous cell skin carcinoma. CBC with differential: WBC Date Value Ref Range Status 06/02/2024 6.34 3.70 - 11.00 k/uL Final RBC Date Value Ref Range Status 06/02/2024 4.79 3.90 - 5.20 m/uL Final Hemoglobin Date Value Ref Range Status 06/02/2024 14.1 11.5 - 15.5 g/dL Final Hematocrit Date Value Ref Range Status 06/02/2024 43.0 36.0 - 46.0 % Final MCV Date Value Ref Range Status 06/02/2024 89.8 80.0 - 100.0 fL Final MCH Date Value Ref Range Status 06/02/2024 29.4 26.0 - 34.0 pg Final MCHC Date Value Ref Range Status 06/02/2024 32.8 30.5 - 36.0 g/dL Final RDW-CV Date Value Ref Range Status 06/02/2024 12.1 11.5 - 15.0 % Final Platelet Count Date Value Ref Range Status 06/02/2024 224 150 - 400 k/uL Final MPV Date Value Ref Range Status 06/02/2024 10.4 9.0 - 12.7 fL Final Neutrophils % Date Value Ref Range Status 06/02/2024 39.8 % Final Lymphocytes % Date Value Ref Range Status 06/02/2024 48.7 % Final Monocytes % Date Value Ref Range Status 06/02/2024 7.3 % Final Eosinophils % Date Value Ref Range Status 06/02/2024 3.2 % Final Basophils % Date Value Ref Range Status 06/02/2024 0.8 % Final Abs Neut Date Value Ref Range Status 06/02/2024 2.53 1.45 - 7.50 k/uL Final Abs [place] Date Value Ref Range Status 06/02/2024 0.46 <0.87 k/uL Final Abs Eosin Date Value Ref Range Status 06/02/2024 0.20 <0.46 k/uL Final Abs Baso Date Value Ref Range Status 06/02/2024 0.05 <0.11 k/uL Final CMP: Albumin Date Value Ref Range Status 06/02/2024 4.2 3.9 - 4.9 g/dL Final Calcium, Total Date Value Ref Range Status 06/02/2024 10.1 8.5 - 10.2 mg/dL Final Bilirubin, Total Date Value Ref Range Status 06/02/2024 0.3 0.2 - 1.3 mg/dL Final Alkaline Phosphatase Date Value Ref Range Status 06/02/2024 129 (H) 34 - 123 U/L Final AST Date Value Ref Range Status 06/02/2024 23 13 - 35 U/L Final ALT Date Value Ref Range Status 06/02/2024 32 7 - 38 U/L Final Glucose Date Value Ref Range Status 06/02/2024 155 (H) 74 - 99 mg/dL Final Comment: The [place] [employer] (ADA) provides guidance for cutoff values for fasting glucose and random glucose. The ADA defines fasting as no caloric intake for at least 8 hours. Fasting plasma glucose results between 100 to 125 [...] Standards of Medical Care in Diabetes 2016, [employer] [place] [employer]. Diabetes Care. 2016.39(Suppl 1). BUN Date Value Ref Range Status 06/02/2024 13 7 - 21 mg/dL Final Creatinine Date Value Ref Range Status 06/02/2024 0.67 0.58 - 0.96 mg/dL Final Sodium Date Value Ref Range Status 06/02/2024 140 136 - 144 mmol/L Final Potassium Date Value Ref Range Status 06/02/2024 3.8 3.7 - 5.1 mmol/L Final Chloride Date Value Ref Range Status 06/02/2024 105 98 - 107 mmol/L Final CO2 Date Value Ref Range Status 06/02/2024 27 22 - 30 mmol/L Final Anion Gap Date Value Ref Range Status 06/02/2024 8 8 - 15 mmol/L Final eGFR- Date Value Ref Range Status (more content not included)... [facility] 08-22-2024 Note HNO ID: [id number] Author: HAYDEE LEUNG RN Service: ? Author Type: Registered Nurse Type: Progress Notes Filed: 08/22/2024 12:26 Note Text: Summary: ED Utilization review per request of payor ACM LUPE RN Patient identified by name and date of . Reason for review or outreach: Chart Review Lupe Priority Emergency Department Utilization REQUESTED ACTION/FYI: Please see ED Utilization summary below: See additional utilization tips below. Thank you PCP ONUR- 08/12/24 Urology ONUR - 07/17/24 Exclusion Criteria - Does not meet exclusion criteria Utilization in past 6 months: # Occurrences Date Last Occurrence Hospital Admission 0 N/A Hospital Observation 0 N/A ED 4 06/02/24 SNF / Acute Rehab / LTAC 0 N/A ED DIAGNOSES/REASON(S) FOR ED USE: 06/02/24- left flank pain 05/06/24- kidney stone 01/19/24- OON left flank pain 12/08/23-UTI OTHER FINDINGS/SUMMARY: Noted increase utilization past 6 months for DX reasons related to urination Patient Attributed To: CHANAE Payer: Cristopher CABRERA Action Taken: Emergency Department Utilization TIPS FOR SUCCESS WITH THIS MEASURE - Provider focus on chronic disease management including regular provider visits to prevent and minimize complications and exacerbations Encourage annual wellness visits and wellness activities, screenings and immunizations Education patients on personal safety, fall prevention, lifestyle choices Talk with members about appropriate ED useand other options: Same-day appointments Calling office after-hours line Urgent care / Express care Telehealth Nurse prison guard or Medicare provider nurse triage line Contact made with patient: No, Chart review only. Signature: Haydee MARQUIS,RN,[facility] [employer] Install[employer] Hel[employer] Management Contract RN [phone] [facility] 08-22-2024 History of Present illness Narrative Summary: ED Utilization review per request of payor [facility] LUPE RN Patient identified by name and date of . Reason for review or outreach: Chart Review Lupe Priority Emergency Department Utilization REQUESTED ACTION/FYI: Please see ED Utilization summary below: See additional utilization tips below. Thank you PCP ONUR- 08/12/24 Urology ONUR - 07/17/24 Exclusion Criteria - Does not meet exclusion criteria Utilization in past 6 months: # Occurrences Date Last Occurrence Hospital Admission 0 N/A Hospital Observation 0 N/A ED 4 06/02/24 SNF / Acute Rehab / LTAC 0 N/A ED DIAGNOSES/REASON(S) FOR ED USE: 06/02/24- left flank pain 05/06/24- kidney stone 01/19/24- OON left flank pain 12/08/23-UTI OTHER FINDINGS/SUMMARY: Noted increase utilization past 6 months for DX reasons related to urination Patient Attributed To: CHANAE Payer: Cristopher CABRERA Action Taken: Emergency Department Utilization TIPS FOR SUCCESS WITH THIS MEASURE - Provider focus on chronic disease management including regular provider visits to prevent and minimize complications and exacerbations Encourage annual wellness visits and wellness activities, screenings and immunizations Education patients on personal safety, fall prevention, lifestyle choices Talk with members about appropriate ED useand other options: Same-day appointments Calling office after-hours line Urgent care / Express care Telehealth Nurse prison guard or Medicare provider nurse triage line Contact made with patient: No, Chart review only. Signature: Haydee MARQUIS,RN,[facility] Car[employer] Install[employer] Management Contract RN [phone] documented in this encounter [facility] 08-22-2024 Note Patient Outreach ([place] [facility] SID LEZAMA Braydon ([id number]) 1975 F Date Time Provider Department 08/22/24 HAYDEE LEUNG [facility] [place] During your visit today, we recorded the following information about you: Haydee Leung RN 08/22/2024 12:26 PM Signed ACM LUPE RN Patient identified by name and date of . Reason for review or outreach: Chart Review Lupe Priority Emergency Department Utilization REQUESTED ACTION/FYI: Please see ED Utilization summary below: See additional utilization tips below. Thank you PCP ONUR- 08/12/24 Urology ONUR - 07/17/24 Exclusion Criteria - Does not meet exclusion criteria Utilization in past 6 months: # Occurrences Date Last Occurrence Hospital Admission 0 N/A Hospital Observation 0 N/A ED 4 06/02/24 SNF / Acute Rehab / LTAC 0 N/A ED DIAGNOSES/REASON(S) FOR ED USE: 06/02/24- left flank pain 05/06/24- kidney stone 01/19/24- OON left flank pain 12/08/23-UTI OTHER FINDINGS/SUMMARY: Noted increase utilization past 6 months for DX reasons related to urination Patient Attributed To: SOLOMON Payer: Cristopher CABRERA Action Taken: Emergency Department Utilization TIPS FOR SUCCESS WITH THIS MEASURE - Provider focus on chronic disease management including regular provider visits to prevent and minimize complications and exacerbations Encourage annual wellness visits and wellness activities, screenings and immunizations Education patients on personal safety, fall prevention, lifestyle choices Talk with members about appropriate ED useand other options: Same-day appointments Calling office after-hours line Urgent care / Express care Telehealth Nurse prison guard or Medicare provider nurse triage line Contact made with patient: No, Chart review only. Signature: Haydee Leung MSN,RN,[facility] Carpet Installer Helper Management Contract RN [phone] Allergies As of Date: 08/22/2024 Noted Allergy Reaction AZITHROMYCIN 03/18/2021 16 - Unknown Comments: thinks a rash DILAUDID (HYDROMORPHONE (BULK)) 08/07/2006 7 - Swelling [...] 7 - Swelling Comments: migraines Date Reviewed: 08/12/2024 Reviewed by: Laina Monroe LPN - Fully Assessed Reason for Visit: KRISTEN LUEP RN [[id number]] Cmt: ED Utilization review per request of payor Prescriptions as of 08/22/2024 - blood sugar diagnostic (ACCU-CHEK GUIDE TEST STRIPS) test strip USE WITH BLOOD GLUCOSE TEST THREE TIMES A DAY. - pantoprazole DR (PROTONIX) 20 mg tablet Take 1 tablet by mouth daily before breakfast. Take on empty stomach, 1/2 hr before meal. - Lancets (ACCU-CHEK FASTCLIX LANCET DRUM) Use as instructed to check blood glucose up to 2 times daily. E11.9 - Insulin Lynch, Disposable, (DROPLET PEN NEEDLE) 32 gauge x 5/32 USE TO INJECT ONE TIME DAILY - Lancing Device with Lancets ACCU CHEK FASTCLIX LANCET *DEVICE* use to check blood glucose up to 2 times per day as instructed. E11.9 - GVOKE PFS 1-PACK SYRINGE 1 mg/0.2 mL syrg INJECT 0.2 ML UNDER THE SKIN NEEDED. - insulin glargine (LANTUS SOLOSTAR U-100 INSULIN) 100 unit/mL (3 mL) INJECT 25 UNITS UNDER THE SKIN bedtime - semaglutide (OZEMPIC) 1 mg/dose (4 mg/3 mL) pen Inject 1 mg subcutaneously one time a week. Patient should start on May 13, 2024. - Blood-Glucose Sensor (FREESTYLE GIANFRANCO 3 SENSOR) matilda Apply new sensor every fourteen (14) days to upper arm. E11.9 - Blood-Glucose Meter,Continuous (FREESTYLE GIANFRANCO 3 READER) [facility] [place] Use to check blood sugar at least four (4) times daily. - ustekinumab (STELARA) 45 mg/0.5 mL sub-Q syringe Inject 45 mg (1 syringe) subcutaneously every 12 weeks - clobetasol (TEMOVATE) 0.05 % ointment Apply to affected area two times a day. Face. Feet. Two weeks on and two weeks off, per [facility] D[facility]. - fexofenadine HCl (LELA ORAL) Take by mouth. - levonorgestrel (MIRENA) 20 mcg/24 hours (8 yrs) 52 mg IUD 1 Each by INTRAUTERINE route as directed. - oxyCODONE-acetaminophen (PERCOCET) 5-325 mg tablet TAKE 1 TABLET BY MOUTH 3 TIMES A DAY NEEDED FOR 28 DAYS - vits62/FA/om3/dha/epa ( GUMMY ORAL) Take 2 Doses by mouth once daily. - Blood-Glucose Meter (ACCU-CHEK DIANNE) Test blood sugar(s) 2 times daily. Dx: Type 2 DM - Controlled E11.9 Insulin: No, Accu-check brand covered by insurance - Ascorbic Acid 500 mg chew Take 1,000 mg by mouth once daily. With rosehips - elderberry fruit (ELDERBERRY ORAL) Take by mouth. - COMPOUNDED PRESCRIPTION 1. V44.2 Ileostomy status (HCC) (primary (more content not included)... [facility] 08-12-2024 Note HNO ID: [id number] Author: GRAYSON PHAN MD Service: ? Author Type: Physician Type: Progress Notes Filed: 08/12/2024 13:29 Note Text: This note was created using [employer]. Subjective Sid Lezama is a 48 year old female. She was doing well. She mainly sees her specialists and I only refill her PPI for GERD. Migraines were inactive. She was having some DME issues related to her stoma and TENS. She was being weaned off Ozempic. She saw gynecology and PAP was not due. She declined vaccines. Review of Systems Constitutional: Negative for fever and unexpected weight change. Respiratory: Negative for cough and shortness of breath. Cardiovascular: Negative for chest pain, palpitations and leg swelling. Gastrointestinal: Negative for abdominal pain, constipation and diarrhea. Neurological: Negative for dizziness and headaches. 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, With Long-Term Current Use of Insulin (Hcc) Nuclear Sclerosis of Both Eyes Vitreous Floaters of Both Eyes Bone Loss Corticosteroids Adverse Reaction Gastroesophageal Reflux Disease Without Esophagitis Dry Eye Syndrome of Both Eyes Obesity (Bmi 30.0-34.9) Seronegative Spondyloarthropathy Psoriatic Arthritis (Hcc) Social History Tobacco Use Smoking status: Former Current packs/day: 0.00 Average packs/day: 1 pack/day for 16.0 years (16.0 ttl pk-yrs) Types: Cigarettes Start date: 12/04/1990 Quit date: 12/04/2006 Years since quittin.7 Smokeless tobacco: Never Vaping Use Vaping status: Never Used Substance Use Topics Alcohol use: No Drug use: No Current Outpatient Medications Medication Sig blood sugar diagnostic (ACCU-CHEK GUIDE TEST STRIPS) test strip USE WITH BLOOD GLUCOSE TEST THREE TIMES A DAY. pantoprazole DR (PROTONIX) 20 mg tablet Take 1 tablet by mouth daily before breakfast. Take on empty stomach, 1/2 hr before meal. Lancets (ACCU-CHEK FASTCLIX LANCET DRUM) Use as instructed to check blood glucose up to 2 times daily. E11.9 Insulin Lynch, Disposable, (DROPLET PEN NEEDLE) 32 gauge x 5/32 USE TO INJECT ONE TIME DAILY Lancing Device with Lancets ACCU CHEK FASTCLIX LANCET *DEVICE* use to check blood glucose up to 2 times per day as instructed. E11.9 GVOKE PFS 1-PACK SYRINGE 1 mg/0.2 mL syrg INJECT 0.2 ML UNDER THE SKIN NEEDED. insulin glargine (LANTUS SOLOSTAR U-100 INSULIN) 100 unit/mL (3 mL) INJECT 25 UNITS UNDER THE SKIN bedtime semaglutide (OZEMPIC) 1 mg/dose (4 mg/3 mL) pen Inject 1 mg subcutaneously one time a week. Patient should start on May 13, 2024. Blood-Glucose Sensor (FREESTYLE GIANFRANCO 3 SENSOR) matilda Apply new sensor every fourteen (14) days to upper arm. E11.9 Blood-Glucose Meter,Continuous (FREESTYLE GIANFRANCO 3 READER) [facility] [place] Use to check blood sugar at least four (4) times daily. ustekinumab (STELARA) 45 mg/0.5 mL sub-Q syringe Inject 45 mg (1 syringe) subcutaneously every 12 weeks clobetasol (TEMOVATE) 0.05 % ointment Apply to affected area two times a day. Face. Feet. Two weeks on and two weeks off, per [facility]. fexofenadine HCl (LELA ORAL) Take by mouth. levonorgestrel (MIRENA) 20 mcg/24 hours (8 yrs) 52 mg IUD 1 Each by INTRAUTERINE route as directed. oxyCODONE-acetaminophen (PERCOCET) 5-325 mg tablet TAKE 1 TABLET BY MOUTH 3 TIMES A DAY NEEDED FOR 28 DAYS vits62/FA/om3/dha/epa ( GUMMY ORAL) Take 2 Doses by mouth once daily. Blood-Glucose Meter (ACCU-CHEK DIANNE) Test blood sugar(s) 2 times daily. Dx: Type 2 DM - Controlled E11.9 Insulin: No, Accu-check brand covered by insurance Ascorbic Acid 500 mg chew Take 1,000 mg by mouth once daily. With rosehips elderberry fruit (ELDERBERRY ORAL) Take by mouth. COMPOUNDED PRESCRIPTION 1. V44.2 Ileostomy status (HCC) (primary diagnosis) 2. 555.1 Regional enteritis of large intestine ([facility]) Ileostomy Supplies. 1. Pouches, 2. Planges, 3. Felipe seals, 4. Stoma adhesive, 5. Stoma powder, 6. Skin preps, 7. Adhesive remover wipes. Dispense 1 year supplies. tiZANidine (ZANAFLEX) 4 mg tablet Take by mouth. . Takes 1 tablet at bedtime. No current facility-administered medications for this visit. Objective BP 126/76 (BP Site: Left Arm, BP Position: Sitting, BP Cuff Size: Large Adult) Pulse 76 Temp 36.4 ?C (97.6 ?F) (Temporal) Resp 18 Wt 70.1 kg (154 lb 8.7 oz) LMP 07/25/2018 BMI 30.69 kg/m? Physical Exam Constitutional: General: She is not in acute distress. Appearance: She is not ill-appearing. Cardiovascular: Rate and Rhythm: Normal rate and regular rhyth (more content not included)... [facility] 08-12-2024 History of Present illness Narrative This note was created using [employer]. Subjective Sid Lezama is a 48 year old female. She was doing well. She mainly sees her specialists and I only refill her PPI for GERD. Migraines were inactive. She was having some DME issues related to her stoma and TENS. She was being weaned off Ozempic. She saw gynecology and PAP was not due. She declined vaccines. Review of Systems Constitutional: Negative for fever and unexpected weight change. Respiratory: Negative for cough and shortness of breath. Cardiovascular: Negative for chest pain, palpitations and leg swelling. Gastrointestinal: Negative for abdominal pain, constipation and diarrhea. Neurological: Negative for dizziness and headaches. 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, With Long-Term Current Use of Insulin (Hcc) Nuclear Sclerosis of Both Eyes Vitreous Floaters of Both Eyes Bone Loss Corticosteroids Adverse Reaction Gastroesophageal Reflux Disease Without Esophagitis Dry Eye Syndrome of Both Eyes Obesity (Bmi 30.0-34.9) Seronegative Spondyloarthropathy Psoriatic Arthritis (Hcc) Social History Tobacco Use Smoking status: Former Current packs/day: 0.00 Average packs/day: 1 pack/day for 16.0 years (16.0 ttl pk-yrs) Types: Cigarettes Start date: 12/04/1990 Quit date: 12/04/2006 Years since quittin.7 Smokeless tobacco: Never Vaping Use Vaping status: Never Used Substance Use Topics Alcohol use: No Drug use: No Current Outpatient Medications Medication Sig blood sugar diagnostic (ACCU-CHEK GUIDE TEST STRIPS) test strip USE WITH BLOOD GLUCOSE TEST THREE TIMES A DAY. pantoprazole DR (PROTONIX) 20 mg tablet Take 1 tablet by mouth daily before breakfast. Take on empty stomach, 1/2 hr before meal. Lancets (ACCU-CHEK FASTCLIX LANCET DRUM) Use as instructed to check blood glucose up to 2 times daily. E11.9 Insulin Lynch, Disposable, (DROPLET PEN NEEDLE) 32 gauge x 5/32 USE TO INJECT ONE TIME DAILY Lancing Device with Lancets ACCU CHEK FASTCLIX LANCET *DEVICE* use to check blood glucose up to 2 times per day as instructed. E11.9 GVOKE PFS 1-PACK SYRINGE 1 mg/0.2 mL syrg INJECT 0.2 ML UNDER THE SKIN NEEDED. insulin glargine (LANTUS SOLOSTAR U-100 INSULIN) 100 unit/mL (3 mL) INJECT 25 UNITS UNDER THE SKIN bedtime semaglutide (OZEMPIC) 1 mg/dose (4 mg/3 mL) pen Inject 1 mg subcutaneously one time a week. Patient should start on May 13, 2024. Blood-Glucose Sensor (FREESTYLE GIANFRANCO 3 SENSOR) matilda Apply new sensor every fourteen (14) days to upper arm. E11.9 Blood-Glucose Meter,Continuous (FREESTYLE GIANFRANCO 3 READER) mis Use to check blood sugar at least four (4) times daily. ustekinumab (STELARA) 45 mg/0.5 mL sub-Q syringe Inject 45 mg (1 syringe) subcutaneously every 12 weeks clobetasol (TEMOVATE) 0.05 % ointment Apply to affected area two times a day. Face. Feet. Two weeks on and two weeks off, per [facility]. fexofenadine HCl (LELA ORAL) Take by mouth. levonorgestrel (MIRENA) 20 mcg/24 hours (8 yrs) 52 mg IUD 1 Each by INTRAUTERINE route as directed. oxyCODONE-acetaminophen (PERCOCET) 5-325 mg tablet TAKE 1 TABLET BY MOUTH 3 TIMES A DAY NEEDED FOR 28 DAYS vits62/FA/om3/dha/epa ( GUMMY ORAL) Take 2 Doses by mouth once daily. Blood-Glucose Meter (ACCU-CHEK DIANNE) Test blood sugar(s) 2 times daily. Dx: Type 2 DM - Controlled E11.9 Insulin: No, Accu-check brand covered by insurance Ascorbic Acid 500 mg chew Take 1,000 mg by mouth once daily. With rosehips elderberry fruit (ELDERBERRY ORAL) Take by mouth. COMPOUNDED PRESCRIPTION 1. V44.2 Ileostomy status (HCC) (primary diagnosis) 2. 555.1 Regional enteritis of large intestine ([facility]) Ileostomy Supplies. 1. Pouches, 2. Planges, 3. Felipe seals, 4. Stoma adhesive, 5. Stoma powder, 6. Skin preps, 7. Adhesive remover wipes. Dispense 1 year supplies. tiZANidine (ZANAFLEX) 4 mg tablet Take by mouth. . Takes 1 tablet at bedtime. No current facility-administered medications for this visit. Objective BP 126/76 (BP Site: Left Arm, BP Position: Sitting, BP Cuff Size: Large Adult) Pulse 76 Temp 36.4 C (97.6 F) (Temporal) Resp 18 Wt 70.1 kg (154 lb 8.7 oz) LMP 07/25/2018 BMI 30.69 kg/m Physical Exam Constitutional: General: She is not in acute distress. Appearance: She is not ill-appearing. Cardiovascular: Rate and Rhythm: Normal rate and regular rhythm. Heart sounds: No murmur heard. No gallop. Pulmonary: Breath sounds: Normal breath sounds. Abdominal: General: There is no distension. Musculoskeletal: Right lower leg: No edema. Left lower leg: No edema. Neurological: Mental Status: She is alert. Assessment and Plan 1. Gastroesophageal reflux disease without esophagitis - ICD9: 530.81, ICD10: K21.9 (primary diagnosis) Controlled on PPI. 2. Screening for depression - ICD9: V79.0, ICD10: Z13.31 - DEPRESSION SCREENING 3. Encounter for screening examination for other mental health and behavioral disorders - ICD9: V79.8, ICD10: Z13.39 - ANXIETY SCREENING 4. Type 2 diabetes mellitus treated with insulin (HCC) - ICD9: 250.00, V58.67, ICD10: E11.9, Z79.4 - Controlled - Continue current medications per Endocrine. 5. Crohn's disease of large intestine without complication (HCC) - ICD9: 555.1, ICD10: K50.10 - Controlled. 6. Ileostomy status ([facility]) - ICD9: V44.2, ICD10: Z93.2 - Supplies current except adhesive no longer covered. Grayson Phan MD documented in this encounter [facility] 08-08-2024 Telephone encounter Note Requester: Pharmacy Patients last Endocrinology visit occurred 05/20/24. Follow-up evaluation has been established Upcoming Endocrinology Appointments - Next 365 Days Visit Type Date Time Department VIDEO SPEC EST 11/19/2024 9:00 AM ENDO MAIN . Requested Prescriptions Pending Prescriptions Disp Refills insulin glargine (LANTUS SOLOSTAR U-100 INSULIN) 100 unit/mL (3 mL) [Pharmacy Med Name: Lantus SoloStar Subcutaneous Solution Pen-injector 100 UNIT/ML] 30 mL 3 Sig: INJECT 20 UNITS UNDER THE SKIN EVERY MORNING If patient is due for an appointment please route to provider for refill consideration and also to the endo scheduling pool. PSS NOTE: Patient needs scheduled appointment No [facility] 08-08-2024 Miscellaneous Notes Requester: Pharmacy Patients last Endocrinology visit occurred 05/20/24. Follow-up evaluation has been established Upcoming Endocrinology Appointments - Next 365 Days Visit Type Date Time Department VIDEO SPEC EST 11/19/2024 9:00 AM ENDO MAIN . Requested Prescriptions Pending Prescriptions Disp Refills insulin glargine (LANTUS SOLOSTAR U-100 INSULIN) 100 unit/mL (3 mL) [Pharmacy Med Name: Lantus SoloStar Subcutaneous Solution Pen-injector 100 UNIT/ML] 30 mL 3 Sig: INJECT 20 UNITS UNDER THE SKIN EVERY MORNING If patient is due for an appointment please route to provider for refill consideration and also to the endo scheduling pool. PSS NOTE: Patient needs scheduled appointment No documented in this encounter [facility] 07-30-2024 Telephone encounter Note Patient has been identified by name and date of : Yes Patient phones for refill(s): Requested Prescriptions Pending Prescriptions Disp Refills pantoprazole DR (PROTONIX) 20 mg tablet 90 tablet 1 Sig: Take 1 tablet by mouth daily before breakfast. Take on empty stomach, 1/2 hr before meal. Date of last office visit in primary care: 01/23/2024 Date of next office visit in primary care: 08/12/2024 Please advise. Thank you. Laina Monroe LPN. [facility] 07-30-2024 Miscellaneous Notes Patient has been identified by name and date of : Yes Patient phones for refill(s): Requested Prescriptions Pending Prescriptions Disp Refills pantoprazole DR (PROTONIX) 20 mg tablet 90 tablet 1 Sig: Take 1 tablet by mouth daily before breakfast. Take on empty stomach, 1/2 hr before meal. Date of last office visit in primary care: 01/23/2024 Date of next office visit in primary care: 08/12/2024 Please advise. Thank you. Laina Monroe LPN. documented in this encounter [facility] 07-30-2024 Telephone encounter Note Requester: Patient Patients last Endocrinology visit occurred 05/20/24. Follow-up evaluation has been established Upcoming Endocrinology Appointments - Next 365 Days Visit Type Date Time Department VIDEO SPEC EST 11/19/2024 9:00 AM ENDO MAIN . Requested Prescriptions Pending Prescriptions Disp Refills blood sugar diagnostic (ACCU-CHEK GUIDE TEST STRIPS) test strip [Pharmacy Med Name: Accu-Chek Guide In Vitro Strip] 300 Strip 3 Sig: USE WITH BLOOD GLUCOSE TEST THREE TIMES A DAY. If patient is due for an appointment please route to provider for refill consideration and also to the endo scheduling pool. PSS NOTE: Patient needs scheduled appointment No [facility] 07-30-2024 Miscellaneous Notes Requester: Patient Patients last Endocrinology visit occurred 05/20/24. Follow-up evaluation has been established Upcoming Endocrinology Appointments - Next 365 Days Visit Type Date Time Department VIDEO SPEC EST 11/19/2024 9:00 AM ENDO MAIN . Requested Prescriptions Pending Prescriptions Disp Refills blood sugar diagnostic (ACCU-CHEK GUIDE TEST STRIPS) test strip [Pharmacy Med Name: Accu-Chek Guide In Vitro Strip] 300 Strip 3 Sig: USE WITH BLOOD GLUCOSE TEST THREE TIMES A DAY. If patient is due for an appointment please route to provider for refill consideration and also to the endo scheduling pool. PSS NOTE: Patient needs scheduled appointment No documented in this encounter [facility] 07-17-2024 Instructions Samy Barragan PA-C - 07/17/2024 3:56 PM EDT Please follow up in about 1 year with US documented in this encounter [facility] 07-17-2024 Note HNO ID: [id number] Author: SAMY BARRAGAN PA-C Service: ? Author Type: Physician Cmo Type: Progress Notes Filed: 07/17/2024 16:48 Note Text: UROLOGY NOTE Chief complaint: kidneys tones Sid Lezama is a 48 year old female who presents today for kidney stone management and prevention counseling. Interval hx May 15, 2024 Patient presented to ED on 05/06/24 due to left flank pain consistent with previous kidney stone pain. CT from earlier ED visit in January showed L renal stone, so treated as migrating stone. Finished the prescribed Flomax. Crohn's and ileostomy. Does not take calcium. Pt currently: no fever, no chills, no nausea, no vomiting, no dysuria, no gross hematuria, no renal colic - New US ordered to assess for current stone(s) burden / passage - Patient is interested in 24-hour urine collection and dietary analysis for stone prevention. Litholink kit to be sent to and completed by patient. - Metabolic lab work ordered to assess underlying stone and/or hypercalcinuria etiologies. RTC in 1.5 months w/ new LL, labs, and US. Interval hx July 17, 2024 Patient returns to clinic having completed Litholink and unremarkable metabolic lab work. She presented to the ED on 06/02/24 due to passing a left distal ureteral stone (believes she passed it that night), with no pain since then. Notes that her chiropractor gave her a tincture to dissolve kidney stones as well. There is no height or weight on file to calculate BMI. 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 01/10/2007: Lumbago No date: Myalgia and myositis, unspecified Comment: Pain management Dr Stern 08/24/2007: Nonalcoholic fatty liver disease 01/10/2007: Other and unspecified hyperlipidemia No date: PMH - PAST MEDICAL HISTORY OF Comment: Cx scarred to post vag wall/difficult exam 01/10/2007: Pneumonia, organism unspecified(486) 08/07/2006: Regional enteritis of large intestine (HCC) 01/01/2007: Retention of urine, unspecified No date: Rheumatoid arthritis(714.0) Comment: Dr. Mc, [facility] No date: Type II or unspecified type diabetes mellitus without mention of complication, not stated as uncontrolled 07/18/2019: Ureterolithiasis PAST SURGICAL HISTORY 1987: ADENOIDECTOMY PRIMARY Comment: Adenoidectomy 1989: ARTHROSCOPY KNEE DIAGNOSTIC W/WO SYNOVIAL BX SPX Comment: Arthroscopy, knee, left 01/2007: [facility] INCL FLUOR GDNCE DX W/CELL WASHG SPX Comment: Bronchoscopy 05/02/2023: EGD 2010: EPIDURAL Comment: multiple ones done by Dr. Beckett 05/02/2023: ILEOSCOPY 06/2000: PAST SURGICAL HISTORY OF Comment: ILEOSTOMY/COLECTOMY 1993: PAST SURGICAL HISTORY OF Comment: CRYOCAUTERY/ MILD DYSPLASIA 03/2006: PAST SURGICAL HISTORY OF Comment: Abdominal abscess with anal fistula 12/05/2006: PRCTECT COMPL W/STOT/TOT COLCT W/VENEER JOINER BXS Comment: AP endoanal proctectomy 05/06/2020: SHOULDER ARTHROSCOPY/SURGERY; Left Comment: Rotator cuff debridement, subacromial decompression/arthroplasty 1987: TONSILLECTOMY PRIMARY/SECONDARY Comment: Tonsillectomy Family History Problem Relation Age of Onset Alcohol/Drug Mother Hypertension Mother COPD other (vascular disease) Mother other (sleep apnea) Mother other (heart murmur) Mother Alcohol/Drug Father Cancer Father liver Asthma Brother Hypertension Daughter Diabetes Maternal Grandmother Stroke Maternal Grandmother Heart Maternal Grandmother Emphysema Paternal Grandmother Diabetes Paternal Grandfather Macular Degen Paternal Grandfather Anesthesia Problems No Family History Social History Tobacco Use Smoking status: Former Current packs/day: 0.00 Average packs/day: 1 pack/day for 16.0 years (16.0 ttl pk-yrs) Types: Cigarettes Start date: 12/04/1990 Quit date: 12/04/2006 Years since quittin.6 Smokeless tobacco: Never Vaping Use Vaping status: Never Used Substance Use Topics Alcohol use: No Drug use: No Current Outpatient Medications on File Prior to Visit Medication Sig Lancets (ACCU-CHEK FASTCLIX LANCET DRUM) Use as instructed to check blood glucose up to 2 times daily. E11.9 Insulin Lynch, Disposable, (DROPLET PEN NEEDLE) 32 gauge x 5/32 USE TO INJECT ONE TIME DAILY Lancing Device with Lancets ACCU CHEK FASTCLIX LANCET *DEVICE* use to check blood glucose up to 2 times per day as instructed. E11.9 GVOKE PFS 1-PACK SYRINGE 1 mg/0.2 mL syrg INJECT 0.2 ML UNDER THE SKIN NEEDED. insulin glargine (LANTUS SOLOSTAR U-100 INSULIN) 100 uni (more content not included)... [facility] 07-17-2024 History of Present illness Narrative Images from the original note were not included. UROLOGY NOTE Chief complaint: kidneys tones Sid Lezama is a 48 year old female who presents today for kidney stone management and prevention counseling. Interval hx May 15, 2024 Patient presented to ED on 05/06/24 due to left flank pain consistent with previous kidney stone pain. CT from earlier ED visit in January showed L renal stone, so treated as migrating stone. Finished the prescribed Flomax. Crohn's and ileostomy. Does not take calcium. Pt currently: no fever, no chills, no nausea, no vomiting, no dysuria, no gross hematuria, no renal colic - New US ordered to assess for current stone(s) burden / passage - Patient is interested in 24-hour urine collection and dietary analysis for stone prevention. Litholink kit to be sent to and completed by patient. - Metabolic lab work ordered to assess underlying stone and/or hypercalcinuria etiologies. RTC in 1.5 months w/ new LL, labs, and US. Interval hx July 17, 2024 Patient returns to clinic having completed Litholink and unremarkable metabolic lab work. She presented to the ED on 06/02/24 due to passing a left distal ureteral stone (believes she passed it that night), with no pain since then. Notes that her chiropractor gave her a tincture to dissolve kidney stones as well. There is no height or weight on file to calculate BMI. 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 01/10/2007: Lumbago No date: Myalgia and myositis, unspecified Comment: Pain management Dr Stern 08/24/2007: Nonalcoholic fatty liver disease 01/10/2007: Other and unspecified hyperlipidemia No date: PMH - PAST MEDICAL HISTORY OF Comment: Cx scarred to post vag wall/difficult exam 01/10/2007: Pneumonia, organism unspecified(486) 08/07/2006: Regional enteritis of large intestine (HCC) 01/01/2007: Retention of urine, unspecified No date: Rheumatoid arthritis(714.0) Comment: Dr. Mc, [facility] No date: Type II or unspecified type diabetes mellitus without mention of complication, not stated as uncontrolled 07/18/2019: Ureterolithiasis PAST SURGICAL HISTORY 1986: ADENOIDECTOMY PRIMARY <AGE 11 Comment: Adenoidectomy 1989: ARTHROSCOPY KNEE DIAGNOSTIC W/WO SYNOVIAL BX SPX Comment: Arthroscopy, knee, left 01/2007: [facility] INCL FLUOR GDNCE DX W/CELL WASHG SPX Comment: Bronchoscopy 05/02/2023: EGD 2011: EPIDURAL Comment: multiple ones done by Dr. Beckett 05/02/2023: ILEOSCOPY 06/2000: PAST SURGICAL HISTORY OF Comment: ILEOSTOMY/COLECTOMY 1993: PAST SURGICAL HISTORY OF Comment: CRYOCAUTERY/ MILD DYSPLASIA 03/2006: PAST SURGICAL HISTORY OF Comment: Abdominal abscess with anal fistula 12/05/2006: PRCTECT COMPL W/STOT/TOT COLCT W/VENEER JOINER BXS Comment: AP endoanal proctectomy 05/06/2020: SHOULDER ARTHROSCOPY/SURGERY; Left Comment: Rotator cuff debridement, subacromial decompression/arthroplasty 1987: TONSILLECTOMY PRIMARY/SECONDARY <AGE 11 Comment: Tonsillectomy Family History Problem Relation Age of Onset Alcohol/Drug Mother Hypertension Mother COPD other (vascular disease) Mother other (sleep apnea) Mother other (heart murmur) Mother Alcohol/Drug Father Cancer Father liver Asthma Brother Hypertension Daughter Diabetes Maternal Grandmother Stroke Maternal Grandmother Heart Maternal Grandmother Emphysema Paternal Grandmother Diabetes Paternal Grandfather Macular Degen Paternal Grandfather Anesthesia Problems No Family History Social History Tobacco Use Smoking status: Former Current packs/day: 0.00 Average packs/day: 1 pack/day for 16.0 years (16.0 ttl pk-yrs) Types: Cigarettes Start date: 12/04/1990 Quit date: 12/04/2006 Years since quittin.6 Smokeless tobacco: Never Vaping Use Vaping status: Never Used Substance Use Topics Alcohol use: No Drug use: No Current Outpatient Medications on File Prior to Visit Medication Sig Lancets (ACCU-CHEK FASTCLIX LANCET DRUM) Use as instructed to check blood glucose up to 2 times daily. E11.9 Insulin Lynch, Disposable, (DROPLET PEN NEEDLE) 32 gauge x 5/32 USE TO INJECT ONE TIME DAILY Lancing Device with Lancets ACCU CHEK FASTCLIX LANCET *DEVICE* use to check blood glucose up to 2 times per day as instructed. E11.9 GVOKE PFS 1-PACK SYRINGE 1 mg/0.2 mL syrg INJECT 0.2 ML UNDER THE SKIN NEEDED. insulin glargine (LANTUS SOLOSTAR U-100 INSULIN) 100 unit/mL (3 mL) INJECT 25 UNITS UNDER THE SKIN bedtime semaglutide (OZEMPIC) 1 mg/dose (4 mg/3 mL) pen Inject 1 mg subcutaneously one time a week. Patient should start on May 13, 2024. Blood-Glucose Sensor (FREESTYLE GIANFRANCO 3 SENSOR) matilda Apply new sensor every fourteen (14) days to upper arm. E11.9 blood sugar diagnostic (ACCU-CHEK GUIDE TEST STRIPS) test strip Use with blood glucose test three times a day. E11.9 Blood-Glucose Meter,Continuous (FREESTYLE GIANFRANCO 3 READER) [facility] Use to check blood sugar at least four (4) times daily. pantoprazole DR (PROTONIX) 20 mg tablet Take 1 tablet by mouth daily before breakfast. Take on empty stomach, 1/2 hr before meal. ustekinumab (STELARA) 45 mg/0.5 mL sub-Q syringe Inject 45 mg (1 syringe) subcutaneously every 12 weeks clobetasol (TEMOVATE) 0.05 % ointment Apply to affected area two times a day. Face. Feet. Two weeks on and two weeks off, per [facility]. fexofenadine HCl (LELA ORAL) Take by mouth. levonorgestrel (MIRENA) 20 mcg/24 hours (8 yrs) 52 mg IUD 1 Each by INTRAUTERINE route as directed. oxyCODONE-acetaminophen (PERCOCET) 5-325 mg tablet TAKE 1 TABLET BY MOUTH 3 TIMES A DAY NEEDED FOR 28 DAYS rizatriptan (MAXALT VENEER JOINER) 10 mg disintegrating tablet Take 1 tablet by mouth as needed for migraine headache (see administration instructions). May repeat in 2 hours if needed vits62/FA/om3/dha/epa ( GUMMY ORAL) Take 2 Doses by mouth once daily. Blood-Glucose Meter (ACCU-CHEK DIANNE) Test blood sugar(s) 2 times daily. Dx: Type 2 DM - Controlled E11.9 Insulin: No, Accu-check brand covered by insurance Ascorbic Acid 500 mg chew Take 1,000 mg by mouth once daily. With rosehips elderberry fruit (ELDERBERRY ORAL) Take by mouth. COMPOUNDED PRESCRIPTION 1. V44.2 Ileostomy status (HCC) (primary diagnosis) 2. 555.1 Regional enteritis of large intestine (HCC) Ileostomy Supplies. 1. Pouches, 2. Planges, 3. Felipe seals, 4. Stoma adhesive, 5. Stoma powder, 6. Skin preps, 7. Adhesive remover wipes. Dispense 1 year supplies. tiZANidine (ZANAFLEX) 4 mg tablet Take by mouth. . Takes 1 tablet at bedtime. tamsulosin (FLOMAX) 0.4 mg Take 1 capsule by mouth daily at bedtime for 7 days. Cholecalciferol, Vitamin D3, 50 mcg (2,000 unit) cap DAILY mecobalamin, vitamin B12, 1,000 mcg ODT DAILY No current facility-administered medications on file prior to visit. ALLERGIES Allergen Reactions Azithromycin Unknown thinks a rash Dilaudid [Hydromorp* Swelling migraines Levemir [Insulin De* Other: See Comments Urine turned dark and smelly Methadone Swelling migraine Morphine Swelling migraines Remicade [Inflixima* Intolerance, Rash broke out in blisters with the 6th dose. Ultram [Tramadol Hc* Swelling migraines Admission on 06/02/2024, Discharged on 06/02/2024 Component Date Value Ref Range Status Protein, Total 06/02/2024 6.5 6.3 - 8.0 g/dL Final Albumin 06/02/2024 4.2 3.9 - 4.9 g/dL Final Calcium, Total 06/02/2024 10.1 8.5 - 10.2 mg/dL Final Bilirubin, Total 06/02/2024 0.3 0.2 - 1.3 mg/dL Final Alkaline Phosphatase 06/02/2024 129 (H) 34 - 123 U/L Final AST 06/02/2024 23 13 - 35 U/L Final ALT 06/02/2024 32 7 - 38 U/L Final Glucose 06/02/2024 155 (H) 74 - 99 mg/dL Final The [place] [employer] (ADA) provides guidance for cutoff values for fasting glucose and random glucose. The ADA defines fasting as no caloric intake for at least 8 hours. Fasting plasma glucose results between 100 to 125 [...] Standards of Medical Care in Diabetes 2016, [place] [employer]. Diabetes Care. 2016.39(Suppl 1). BUN 06/02/2024 13 7 - 21 mg/dL Final Creatinine 06/02/2024 0.67 0.58 - 0.96 mg/dL Final Sodium 06/02/2024 140 136 - 144 mmol/L Final Potassium 06/02/2024 3.8 3.7 - 5.1 mmol/L Final Chloride 06/02/2024 105 98 - 107 mmol/L Final CO2 06/02/2024 27 22 - 30 mmol/L Final Anion Gap 06/02/2024 8 8 - 15 mmol/L Final Estimated Glomerular Filtration Ra* 06/02/2024 107 >=60 mL/min/1.73m Final Estimated Glomerular Filtration Rate (eGFR) is calculated using the 2020 CKD-EPI creatinine equation. This equation utilizes serum creatinine, sex, and age as parameters. The creatinine assay has traceable calibration to isotope dilution-mass spectrometry. Refer to KDIGO guidelines for clinical interpretation. In patients with unstable renal function, e.g. those with acute kidney injury, the eGFR may not accurately reflect actual GFR. WBC 06/02/2024 6.34 3.70 - 11.00 k/uL Final RBC 06/02/2024 4.79 3.90 - 5.20 m/uL Final Hemoglobin 06/02/2024 14.1 11.5 - 15.5 g/dL Final Hematocrit 06/02/2024 43.0 36.0 - 46.0 % Final MCV 06/02/2024 89.8 80.0 - 100.0 fL Final MCH 06/02/2024 29.4 26.0 - 34.0 pg Final MCHC 06/02/2024 32.8 30.5 - 36.0 g/dL Final RDW-CV 06/02/2024 12.1 11.5 - 15.0 % Final Platelet Count 06/02/2024 224 150 - 400 k/uL Final MPV 06/02/2024 10.4 9.0 - 12.7 fL Final Neutrophils % 06/02/2024 39.8 % Final Abs Neut 06/02/2024 2.53 1.45 - 7.50 k/uL Final Lymphocytes % 06/02/2024 48.7 % Final Abs Lymph 06/02/2024 3.09 1.00 - 4.00 k/uL Final Monocytes % 06/02/2024 7.3 % Final Abs [place] 06/02/2024 0.46 <0.87 k/uL Final Eosinophils % 06/02/2024 3.2 % Final Abs Eosin 06/02/2024 0.20 <0.46 k/uL Final Basophils % 06/02/2024 0.8 % Final Abs Baso 06/02/2024 0.05 <0.11 k/uL Final Immature Granulocytes % 06/02/2024 0.2 % Final Abs Immature Gran 06/02/2024 <0.03 <0.10 k/uL Final Diff Type 06/02/2024 Auto Final Color 06/02/2024 Yellow Yellow Final Clarity 06/02/2024 Clear Clear Final Glucose, Urine 06/02/2024 2+ (A) Negative Final Bilirubin, Urine 06/02/2024 Negative Negative Final Ketones, Urine 06/02/2024 Negative Negative Final Specific [place], Ur 06/02/2024 1.025 1.005 - 1.030 Final Hemoglobin/Blood,Ur 06/02/2024 Negative Negative Final pH, Urine 06/02/2024 6.0 5.0 - 8.0 Final Protein, Urine 06/02/2024 Negative Negative Final Urobilinogen 06/02/2024 0.2 EU/dL 0.2-1.0 EU/dL Final Nitrites 06/02/2024 Negative Negative Final Leuk Esterase 06/02/2024 Negative Negative Final WBC, Urine 06/02/2024 0-5 /HPF 0-5 /HPF Final RBC, Urine 06/02/2024 0-3 /HPF 0-3 /HPF Final Bacteria 06/02/2024 Moderate (A) None Seen /HPF Final Squamous Epithelial Cells 06/02/2024 Few /HPF Final Calcium Oxalate Crystals 06/02/2024 Moderate (A) None Seen /HPF Final HCG Qualitative, Urine 06/02/2024 Negative Negative Final This test is intended to aid in the early detection of . Very dilute urine samples, as indicated by a low specific gravity, may not contain printing sales representative levels of hCG. This test detects intact hCG only. This test does not reliably detect hCG degradation products, including free-beta subunit and beta-core fragment. Therefore, this test may show reduced reactivity in urine after 8 weeks gestation. A number of conditions other than , including trophoblastic disease and certain non-trophoblastic neoplasms cause elevated levels of hCG. As with any assay employing mouse antibodies, the possibility exists for interference by human anti-mouse antibodies (HAMA) in the specimen. The test provides a presumptive diagnosis for . Images: CT 06/02/24: RIGHT kidney: No RIGHT renal calculus, mass, or hydronephrosis. LEFT kidney: 4 mm LEFT UVJ calculus (2:90) with mild upstream left-sided hydroureteronephrosis. No LEFT renal calculus. US 05/30/24: Right Kidney: -Renal length: 12.2 cm -Parenchyma: Normal parenchymal echogenicity. Normal parenchymal thickness. -Collecting system: No hydronephrosis. -Calculus: No echogenic, shadowing calculus. -Lesion: None. Left Kidney: -Renal length: 11.9 cm -Parenchyma: Normal parenchymal echogenicity. Normal parenchymal thickness. -Collecting system: No hydronephrosis. -Calculus: 3 mm echogenic focus with equivocal shadowing. -Lesion: None. Bladder: Empty and not visualized. Stone Panel/ Litholink: Latest Ref Rng 06/13/2024 CYSTINE, URINE, QUALITATIVE Negative Neg URINE VOLUME (PRESERVED) 500 - 4,000 mL/24 hr 1,020 CALCIUM OXALATE SATURATION 6.00 - 10.00 11.67 (H) CALCIUM, URINE <200 mg/24 hr 202 (H) OXALATE, URINE 20 - 40 mg/24 hr 19 (L) Citrate, Urine >550 mg/24 hr 503 (L) CALCIUM PHOSPHATE SATURATION 0.50 - 2.00 0.48 (L) PH, 24 HR, URINE 5.800 - 6.200 5.403 (L) URIC ACID SATURATION <1.00 1.92 (H) URIC ACID, URINE <750 mg/24 hr 374 SODIUM, URINE 50 - 150 mmol/24 hr 28 (L) POTASSIUM, URINE 20 - 100 mmol/24 hr 41 Magnesium, Urine 30 - 120 mg/24 hr 33 Phosphorus, Urine 600 - 1,200 mg/24 hr 400 (L) AMMONIUM, URINE 15 - 60 mmol/24 hr 30 CHLORIDE, URINE 70 - 250 mmol/24 hr 55 (L) SULFATE, URINE 20 - 80 meq/24 hr 15 (L) Urea Nitrogen, Urine 6.00 - 14.00 g/24 hr 3.47 (L) Protein Catabolic Rate 0.8 - 1.4 g/kg/24 hr 0.5 (L) CREATININE, URINE Not Applic. mg/24 hr 831 CREATININE/KG BODY WEIGHT 8.7 - 20.3 mg/24 hr/kg 11.9 CALCIUM/KG BODY WEIGHT <4.0 mg/24 hr/kg 2.9 CALCIUM/CREATININE RATIO 51 - 262 mg/g creat 242 Comment Note Latest Ref Rng 05/15/2024 Normalized Calcium 1.08 - 1.30 mmol/L 1.40 (H) Ionized Calcium 1.08 - 1.30 mmol/L 1.27 PTH, Intact 15 - 65 pg/mL 46 Vitamin D 25 Hydroxy 31.0 - 80.0 ng/mL 51.5 Uric Acid 2.5 - 6.6 mg/dL 4.6 Assessment/Plan: Encounter Diagnosis ICD-10-CM 1. Nephrolithiasis N20.0 US KIDNEY/BLADDER 2. Urine volume deficient R34 3. Hypocitraturia R82.991 4. Aciduria (HCC) E72.9 5. Hypercalcinuria R82.994 - Reviewed overall unremarkable metabolic lab work - Reviewed Litholink 24-hour urine collection results. Emphasis on increasing fluid (water!) intake, increasing dietary citrus, and decreasing/monitoring high oxalate foods and pair with calcium rich foods. - Discussed potassium citrate 10mEq BID as possible treatment option; she will confer with her holistic provider. - New US in about 1 year to reassess Reviewed recent 24 hour urine study and discussed strategies for stone prevention. Low urine volume - Recommend increasing your fluid intake to 2.5-3 L/day or 80-100 fluid oz/day. Not only increase fluids during the day but also drink 1-2 glasses of water before bed, get up at least once through the night to urinate, and then drink another glass of water before returning to sleep. Hypocitraturia - Recommend increasing dietary citrate intake. Adding more fruits & vegetables to your diet; in particular citrus fruits like felice, limes, oranges, melons and tomatoes. Hypercalciuria - Recommend a low sodium diet <2000mg/d. Read food labels, choose low sodium options, avoid canned, frozen or boxed meals, eat more fresh foods, and add a fish oil supplement (2000 mg) daily. General stone prevention guidelines: Fluid intake - #1 reason why people form stones - not enough fluid! Recommend increasing water/fluid intake (2.5-3 L/day or 80-100 fluid oz/day), including nighttime hydration. We recommend emptying your bladder and drinking 1-2 glasses of water prior to bed, then getting up at least once during the night to empty your bladder again and drinking 1 more glass of water before returning to bed. All fluids count but water is best. [place] intake - Recommend increasing dietary citrate intake. Adding more fruits & vegetables to your diet; in particular citrus fruits (felice/limes/lemonade/melons/joanna toes). One can add 4 oz of lemon juice diluted in 32 oz of water daily to start. If diet changes are too difficult we can prescribe a medication, potassium citrate, that can help increase your citrate levels. Sodium intake - Recommend a low sodium diet <2000mg/d. Read food labels, choose low sodium options, avoid canned, frozen or boxed meals, eat more fresh foods, and possibly add a fish oil supplement daily (2000mg/d) Calcium intake - Recommend 2-3 servings of calcium per day. Not advisable for stone patients to restrict calcium intake as it is very important for good bone, muscle, and tissue health. Decrease soft drinks (has phosphoric acid). Protein intake: about 1 g of protein per kilo body weight per day. Patients with high urine oxalate: avoid spinach, nuts, seeds, potatoes. Foods like banana, avocado, soybean, romie, cereals are good for you. Drink enough fluids each day. If you are not producing enough urine, your health care provider will recommend you drink at least 3 liters of liquid each day. This equals about 3 quarts (about ten 10-ounce glasses). This is a great way to lower your risk of forming new stones. Remember to drink more to replace fluids lost when you sweat from exercise or in hot weather. All fluids count toward your fluid intake. But it's best to drink mostly no-calorie or low-calorie drinks. This may mean limiting sugar-sweetened or alcoholic drinks. Knowing how much you drink during the day can help you understand how much you need to drink to produce 2.5 liters of urine. Use a household measuring cup to measure how much liquid you drink for a day or two. Drink from bottles or cans with the fluid ounces listed on the label. Keep a log, and add up the ounces at the end of the day or 24-hour period. Use this total to be sure you are reaching your daily target urine amount of at least 85 ounces (2.5 liters) of urine daily. Health care providers recommend people who form cystine stones drink more liquid than other stone formers. Usually 4 liters of liquid is advised to reduce cystine levels in your urine. Reduce the amount of salt in your diet. This tip is for people with high sodium intake and high urine calcium or cystine. Sodium can cause both urine calcium and cystine to be too high. Your health care provider may advise you to avoid foods that have a lot of salt. The Centers for Disease Control (CDC) and other health groups advise not eating more than 2,300 mg of salt per day. The following foods are high in salt and should be eaten in moderation: Cheese (all types) Most frozen foods and meats, including salty cured meats, deli meats (cold cuts), hot dogs, bratwurst and sausages Canned soups and vegetables Breads, bagels, rolls and baked goods Salty snacks, like chips and pretzels Bottled salad dressings and certain breakfast cereals Pickles and olives Casseroles, other mixed foods, pizza and lasagna Canned and bottled sauces Certain condiments, table salt and some spice blends Eat the recommended amount of calcium. If you take calcium supplements, make sure you aren't getting too much calcium. On the other hand make sure you aren't getting too little calcium either. Talk with your health care provider or dietitian about whether you need supplements. Good sources of calcium to choose from often are those low in salt. Eating calcium-rich foods or beverages with meals every day is a good habit. There are many non-dairy sources of calcium, such as calcium-fortified non-dairy milks. There are good choices, especially if you avoid dairy. You can usually get enough calcium from your diet without supplements if you eat [id number] servings of calcium-rich food. Many foods and beverages have calcium in them. Some foods and beverages that might be easy to include on a daily basis with meals are: Table of Foods Rich in Calcium Eat plenty of fruits and vegetables. Eating at least five servings of fruits and vegetables daily is recommended for all people who form kidney stones. Eating fruits and vegetables give you potassium, fiber, magnesium, antioxidants, phytate and citrate, all of which may help keep stones from forming. A serving means one piece of fruit or one potato or one cup of raw vegetables. For cooked vegetables, a serving is cup. If you are worried you may not be eating the right amount of fruits and vegetables, talk to your health care provider about what will be best for you. Eat foods with low oxalate levels. This recommendation is for patients with high urine oxalate. Eating calcium-rich foods (see table above) with meals can often control the oxalate level in your urine. Urinary oxalate is controlled because eating calcium lowers the oxalate level in your body. But if doing that does not control your urine oxalate, you may be asked to eat less of certain high-oxalate foods. Nearly all plant foods have oxalate, but a few foods contain a lot of it. These include spinach, rhubarb and almonds. It is usually not necessary to completely stop eating foods that contain oxalate. This needs to be determined individually and depends on why your oxalate levels are high in the first place. Eat less meat. If you make cystine or calcium oxalate stones and your urine uric acid is high, your health care provider may tell you to eat less animal protein. If your health care provider thinks your diet is increasing your risk for stones, he or she will tell you to eat less meat, fish, seafood, poultry, pork, norton, mutton and game meat than you eat now. This might mean eating these foods once or twice rather than two or three times a day, fewer times during the week, or eating smaller portions when you do eat them. The amount to limit depends on how much you eat now and how much your diet is affecting your uric acid levels. https://www.[facility]rology[facility].org/urol ogy-a-z/k/kidney-stones#Prevention %20of%20Future%20Stones RTC in 12 months w/ new US. Samy Barragan PA-C documented in this encounter [facility] 06-17-2024 Note HNO ID: [id number] Author: SAFIA JAMIL MD Service: ? Author Type: Physician Type: Progress Notes Filed: 06/20/2024 21:53 Note Text: Supervisor Blood offered: Patient declines. Sid is a 48 year old who presents for an annual gynecologic exam without complaints. Urinary urgency and was on Flomax for kidney stones. Having a more difficult time emptying ballder. Menses: no menses - Mirena IUD. Contraception: IUD HPV vaccine: N/A Last Pap: 12/30/2019 normal HPV: 12/26/2019 negative History of abnormal pap: No Last mammogram: 2021 OB History T1 L1 SAB0 IAB0 Ectopic0 Multiple0 Live Births0 Production Checker History LMP: 07/25/2018, IUD Age at Menarche: Age at First : Age at Menopause: Production Checker History Comments: Sexual Activity: Yes; Male Contraception: I.U.D. 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 01/10/2007: Lumbago No date: Myalgia and myositis, unspecified Comment: Pain management Dr Setrn 08/24/2007: Nonalcoholic fatty liver disease 01/10/2007: Other and unspecified hyperlipidemia No date: PMH - PAST MEDICAL HISTORY OF Comment: Cx scarred to post vag wall/difficult exam 01/10/2007: Pneumonia, organism unspecified(486) 08/07/2006: Regional enteritis of large intestine (HCC) 01/01/2007: Retention of urine, unspecified No date: Rheumatoid arthritis(714.0) Comment: Dr. Mc, [facility] No date: Type II or unspecified type diabetes mellitus without mention of complication, not stated as uncontrolled 07/18/2019: UreterolithiasisPAST SURGICAL HISTORY 1987: ADENOIDECTOMY PRIMARY Comment: Adenoidectomy 1989: ARTHROSCOPY KNEE DIAGNOSTIC W/WO SYNOVIAL BX SPX Comment: Arthroscopy, knee, left 01/2007: [facility] INCL FLUOR GDNCE DX W/CELL WASHG SPX Comment: Bronchoscopy 05/02/2023: EGD 2010: EPIDURAL Comment: multiple ones done by Dr. Beckett 05/02/2023: ILEOSCOPY 06/2000: PAST SURGICAL HISTORY OF Comment: ILEOSTOMY/COLECTOMY 1993: PAST SURGICAL HISTORY OF Comment: CRYOCAUTERY/ MILD DYSPLASIA 03/2006: PAST SURGICAL HISTORY OF Comment: Abdominal abscess with anal fistula 12/05/2006: PRCTECT COMPL W/STOT/TOT COLCT W/VENEER JOINER BXS Comment: AP endoanal proctectomy 05/06/2020: SHOULDER ARTHROSCOPY/SURGERY; Left Comment: Rotator cuff debridement, subacromial decompression/arthroplasty 1987: TONSILLECTOMY PRIMARY/SECONDARY Comment: Tonsillectomy FAMILY HISTORY Problem Relation Age of Onset Alcohol/Drug Mother Hypertension Mother COPD other (vascular disease) Mother other (sleep apnea) Mother other (heart murmur) Mother Alcohol/Drug Father Cancer Father liver Asthma Brother Hypertension Daughter Diabetes Maternal Grandmother Stroke Maternal Grandmother Heart Maternal Grandmother Emphysema Paternal Grandmother Diabetes Paternal Grandfather Macular Degen Paternal Grandfather Anesthesia Problems No Family History SOCIAL HISTORY Social History Tobacco Use Smoking status: Former Packs/day: 1.00 Years: 16.00 Additional pack years: 0.00 Total pack years: 16.00 Types: Cigarettes Quit date: 12/04/2006 Years since quittin.5 Smokeless tobacco: Never Vaping Use Vaping Use: Never used Substance Use Topics Alcohol use: No Drug use: No REVIEW OF SYSTEMS Abdomen: No abdominal pain, nausea, vomiting. Bladder: No dysuria, gross hematuria, urinary frequency, urinary urgency, or incontinence. Breast: No breast lumps, nipple d/c, overlying skin changes, redness or skin retraction. Allergies and current medication updated:Yes EXAM: BP 110/64 Ht 4' 11.5 (1.51m) Wt 154 lb (69.9kg) LMP 07/25/2018 BMI 30.60 kg/(m2). GENERAL: pleasant, female in no apparent distress HEENT: Normocephalic and atraumatic BREAST: soft, non-tender, symmetric, no dominant mass, normal nipple-areolar complex, no lymphadenopathy, and no nipple discharge CHEST: Normal inspiratory effort ABDOMEN: soft, non-tender, and no masses PELVIC: external genitalia normal, normal Bartholin's glands, urethra, Concord's glands, no vulvar lesions, no cervical lesions, good vaginal support, physiologic discharge present, normal appearing perineal body and perianal region, IUD strings visualized BIMANUAL: uterus normal size, shape and consistency, no adnexal masses, and non-tender RECTOVAGINAL: deferred. NEURO: exam grossly non-focal EXTREMITIES: normal ASSESSMENT/PLAN: 1) Health maintenance: Pap/HPV up to date. Mammogram ordered. Nutrition, exercise and routine (more content not included)... [facility] 06-17-2024 History of Present illness Narrative Supervisor Blood offered: Patient declines. Sid is a 48 year old who presents for an annual gynecologic exam without complaints. Urinary urgency and was on Flomax for kidney stones. Having a more difficult time emptying ballder. Menses: no menses - Mirena IUD. Contraception: IUD HPV vaccine: N/A Last Pap: 12/30/2019 normal HPV: 12/26/2019 negative History of abnormal pap: No Last mammogram: 2021 OB History T1 L1 SAB0 IAB0 Ectopic0 Multiple0 Live Births0 Production Checker History LMP: 07/25/2018, IUD Age at Menarche: Age at First : Age at Menopause: Production Checker History Comments: Sexual Activity: Yes; Male Contraception: I.U.D. 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 01/10/2007: Lumbago No date: Myalgia and myositis, unspecified Comment: Pain management Dr Stern 08/24/2007: Nonalcoholic fatty liver disease 01/10/2007: Other and unspecified hyperlipidemia No date: PMH - PAST MEDICAL HISTORY OF Comment: Cx scarred to post vag wall/difficult exam 01/10/2007: Pneumonia, organism unspecified(486) 08/07/2006: Regional enteritis of large intestine (HCC) 01/01/2007: Retention of urine, unspecified No date: Rheumatoid arthritis(714.0) Comment: Dr. Mc, [facility] No date: Type II or unspecified type diabetes mellitus without mention of complication, not stated as uncontrolled 07/18/2019: UreterolithiasisPAST SURGICAL HISTORY 1986: ADENOIDECTOMY PRIMARY <AGE 11 Comment: Adenoidectomy 1989: ARTHROSCOPY KNEE DIAGNOSTIC W/WO SYNOVIAL BX SPX Comment: Arthroscopy, knee, left 01/2007: [facility] INCL FLUOR GDNCE DX W/CELL WASHG SPX Comment: Bronchoscopy 05/02/2023: EGD 2010: EPIDURAL Comment: multiple ones done by Dr. Beckett 05/02/2023: ILEOSCOPY 06/2000: PAST SURGICAL HISTORY OF Comment: ILEOSTOMY/COLECTOMY 1993: PAST SURGICAL HISTORY OF Comment: CRYOCAUTERY/ MILD DYSPLASIA 03/2006: PAST SURGICAL HISTORY OF Comment: Abdominal abscess with anal fistula 12/05/2006: PRCTECT COMPL W/STOT/TOT COLCT W/VENEER JOINER BXS Comment: AP endoanal proctectomy 05/06/2020: SHOULDER ARTHROSCOPY/SURGERY; Left Comment: Rotator cuff debridement, subacromial decompression/arthroplasty 1987: TONSILLECTOMY PRIMARY/SECONDARY <AGE 11 Comment: Tonsillectomy FAMILY HISTORY Problem Relation Age of Onset Alcohol/Drug Mother Hypertension Mother COPD other (vascular disease) Mother other (sleep apnea) Mother other (heart murmur) Mother Alcohol/Drug Father Cancer Father liver Asthma Brother Hypertension Daughter Diabetes Maternal Grandmother Stroke Maternal Grandmother Heart Maternal Grandmother Emphysema Paternal Grandmother Diabetes Paternal Grandfather Macular Degen Paternal Grandfather Anesthesia Problems No Family History SOCIAL HISTORY Social History Tobacco Use Smoking status: Former Packs/day: 1.00 Years: 16.00 Additional pack years: 0.00 Total pack years: 16.00 Types: Cigarettes Quit date: 12/04/2006 Years since quittin.5 Smokeless tobacco: Never Vaping Use Vaping Use: Never used Substance Use Topics Alcohol use: No Drug use: No REVIEW OF SYSTEMS Abdomen: No abdominal pain, nausea, vomiting. Bladder: No dysuria, gross hematuria, urinary frequency, urinary urgency, or incontinence. Breast: No breast lumps, nipple d/c, overlying skin changes, redness or skin retraction. Allergies and current medication updated:Yes EXAM: BP 110/64 Ht 4' 11.5 (1.51m) Wt 154 lb (69.9kg) LMP 07/25/2018 BMI 30.60 kg/(m^2). GENERAL: pleasant, female in no apparent distress HEENT: Normocephalic and atraumatic BREAST: soft, non-tender, symmetric, no dominant mass, normal nipple-areolar complex, no lymphadenopathy, and no nipple discharge CHEST: Normal inspiratory effort ABDOMEN: soft, non-tender, and no masses PELVIC: external genitalia normal, normal Bartholin's glands, urethra, Concord's glands, no vulvar lesions, no cervical lesions, good vaginal support, physiologic discharge present, normal appearing perineal body and perianal region, IUD strings visualized BIMANUAL: uterus normal size, shape and consistency, no adnexal masses, and non-tender RECTOVAGINAL: deferred. NEURO: exam grossly non-focal EXTREMITIES: normal ASSESSMENT/PLAN: 1) Health maintenance: Pap/HPV up to date. Mammogram ordered. Nutrition, exercise and routine health maintenance exams reviewed. Lipids/glucose: followed by PCP 2) Contraception: IUD. Contraceptive options reviewed and information provided. 3) STD screening: Declined STD check. 4) Follow up one year or sooner as needed Safia Jamil DO documented in this encounter [facility] 06-07-2024 History of Present illness Narrative Follow-up of seronegative spondyloarthropathy HPI: To review, Sid Lezama is a 48 year old female - Since teenage years, with intermittent joint pain and swelling. Affected joints include the wrists, MCPs, PIPs, knees, ankles and toes. Also gets hip pain. Eases with movement/activity. Worst pain is evening. - In April, diagnosed with Crohn's per colonoscopy. Underwent surgery to remove the large intestine. - In , had a rectal fistula so tried remicade (stopped s/p 6th dose for rash). Rectal stump was removed after that. - Sees pain management for serial spinal injections - In , diagnosed with psoriasis over scalp, knees and dorsal feet. - In Jun, reported no GI issues, no need for medication or surgery for Crohn's since . Diagnosed with SpA. Advised humira which she decided against starting given c/f potential SE - Since February, has been seeing holistic provider. Taking supplements - In Jul, reported she had lost 20 lbs. Overall stable. - In Jun, reported she had 3 doses of stelara which she started after the prior visit. Had had 3 doses thus far. Improved psoriasis, not yet of joints - at [facility], reports 70-80% improved in the joints and skin with the stelara. Was due 12/22/23, needs more. 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 Lumbago 01/10/2007 Myalgia and myositis, unspecified Pain management Dr Stern Nonalcoholic fatty liver disease 08/24/2007 Other and unspecified hyperlipidemia 01/10/2007 PMH - PAST MEDICAL HISTORY OF Cx scarred to post vag wall/difficult exam Pneumonia, organism unspecified(486) 01/10/2007 Regional enteritis of large intestine (HCC) 08/07/2006 Retention of urine, unspecified 01/01/2007 Rheumatoid arthritis(714.0) Dr. Mc, [facility] Type II or unspecified type diabetes mellitus without mention of complication, not stated as uncontrolled Ureterolithiasis 07/18/2019 GERD PAST SURGICAL HISTORY Procedure Laterality Date ADENOIDECTOMY PRIMARY <AGE 11 1986 Adenoidectomy ARTHROSCOPY KNEE DIAGNOSTIC W/WO SYNOVIAL BX SPX 1989 Arthroscopy, knee, left [facility] INCL FLUOR GDNCE DX W/CELL WASHG SPX 01/2007 Bronchoscopy EGD 05/02/2023 EPIDURAL 2011 multiple ones done by Dr. Beckett ILEOSCOPY 05/02/2023 PAST SURGICAL HISTORY OF 06/2000 ILEOSTOMY/COLECTOMY PAST SURGICAL HISTORY OF 1993 CRYOCAUTERY/ MILD DYSPLASIA PAST SURGICAL HISTORY OF 03/2006 Abdominal abscess with anal fistula PRCTECT COMPL W/STOT/TOT COLCT W/VENEER JOINER BXS 12/05/2006 AP endoanal proctectomy SHOULDER ARTHROSCOPY/SURGERY Left 05/06/2020 Rotator cuff debridement, subacromial decompression/arthroplasty TONSILLECTOMY PRIMARY/SECONDARY <AGE 11 1986 Tonsillectomy ALLERGIES Allergen Reactions Azithromycin Unknown thinks a rash Dilaudid [Hydromorp* Swelling migraines Levemir [Insulin De* Other: See Comments Urine turned dark and smelly Methadone Swelling migraine Morphine Swelling migraines Remicade [Inflixima* Intolerance, Rash broke out in blisters with the 6th dose. Ultram [Tramadol Hc* Swelling migraines INTERVAL HISTORY She is here for follow up. She went to the ED 06/02/2024 for a kidney stone. She states the stone has passed. Joint symptoms have been stable overall since the ONUR. She continues to have diarrhea, but states bowel symptoms are stable. She takes percocet for pain. She stopped taking lyrica in 02/2024. Sites of pain: L hip, low back, shoulders, elbows, pain rated 3-4/10 Joint swelling: R 2nd dip EMS: yes, lasting 60 minutes Psoriasis: hands, scalp- she is not using any topical treatments No recent infections. Tolerating meds. Answers submitted by the patient for this visit: Review of Systems Rheumatology (Submitted on 06/07/2024) Fever : No Recent unintentional weight change: No Eye pain: No Eye redness: No Vision Disturbance: No Eye Dryness: No Nosebleeds: No Sores in your mouth: No Trouble Swallowing: No Dry Mouth: No Chest pain: No Leg Swelling: No A cough: No Shortness of breath: No Pain with breathing: No Heartburn: No Abdominal pain: No Diarrhea: Yes Black tarry stools: No Blood in urine: No Pain or burning with urination: No Joint pain or stiffness: Yes Muscle weakness: Yes Muscle aches: Yes Joint swelling: Yes Morning Stiffness in Joints: Yes A rash: No Skin Color Changes: No Hair Loss: Yes Nail Changes: Yes Headaches: No Numbness: Yes Memory Loss: No Swollen Glands: No Current Outpatient Medications Medication Sig tamsulosin (FLOMAX) 0.4 mg Take 1 capsule by mouth daily at bedtime for 7 days. Lancets (ACCU-CHEK FASTCLIX LANCET DRUM) Use as instructed to check blood glucose up to 2 times daily. E11.9 Insulin Lynch, Disposable, (DROPLET PEN NEEDLE) 32 gauge x 5/32 USE TO INJECT ONE TIME DAILY Lancing Device with Lancets ACCU CHEK FASTCLIX LANCET *DEVICE* use to check blood glucose up to 2 times per day as instructed. E11.9 GVOKE PFS 1-PACK SYRINGE 1 mg/0.2 mL syrg INJECT 0.2 ML UNDER THE SKIN NEEDED. Cholecalciferol, Vitamin D3, 50 mcg (2,000 unit) cap DAILY mecobalamin, vitamin B12, 1,000 mcg ODT DAILY insulin glargine (LANTUS SOLOSTAR U-100 INSULIN) 100 unit/mL (3 mL) INJECT 25 UNITS UNDER THE SKIN bedtime semaglutide (OZEMPIC) 1 mg/dose (4 mg/3 mL) pen Inject 1 mg subcutaneously one time a week. Patient should start on May 13, 2024. Blood-Glucose Sensor (FREESTYLE GIANFRANCO 3 SENSOR) matilda Apply new sensor every fourteen (14) days to upper arm. E11.9 blood sugar diagnostic (ACCU-CHEK GUIDE TEST STRIPS) test strip Use with blood glucose test three times a day. E11.9 Blood-Glucose Meter,Continuous (FREESTYLE GIANFRANCO 3 READER) [facility] [place] Use to check blood sugar at least four (4) times daily. pantoprazole DR (PROTONIX) 20 mg tablet Take 1 tablet by mouth daily before breakfast. Take on empty stomach, 1/2 hr before meal. pregabalin (LYRICA) 25 mg capsule Take 1 capsule by mouth once daily for 30 days. ustekinumab (STELARA) 45 mg/0.5 mL sub-Q syringe Inject 45 mg (1 syringe) subcutaneously every 12 weeks clobetasol (TEMOVATE) 0.05 % ointment Apply to affected area two times a day. Face. Feet. Two weeks on and two weeks off, per [facility]. fexofenadine HCl (LELA ORAL) Take by mouth. levonorgestrel (MIRENA) 20 mcg/24 hours (8 yrs) 52 mg IUD 1 Each by INTRAUTERINE route as directed. oxyCODONE-acetaminophen (PERCOCET) 5-325 mg tablet TAKE 1 TABLET BY MOUTH 3 TIMES A DAY NEEDED FOR 28 DAYS rizatriptan (MAXALT VENEER JOINER) 10 mg disintegrating tablet Take 1 tablet by mouth as needed for migraine headache (see administration instructions). May repeat in 2 hours if needed [id number]/FA/om3/dha/epa ( GUMMY ORAL) Take 2 Doses by mouth once daily. Blood-Glucose Meter (ACCU-CHEK DIANNE) Test blood sugar(s) 2 times daily. Dx: Type 2 DM - Controlled E11.9 Insulin: No, Accu-check brand covered by insurance Ascorbic Acid 500 mg chew Take 1,000 mg by mouth once daily. With rosehips elderberry fruit (ELDERBERRY ORAL) Take by mouth. COMPOUNDED PRESCRIPTION 1. V44.2 Ileostomy status (HCC) (primary diagnosis) 2. 555.1 Regional enteritis of large intestine (HCC) Ileostomy Supplies. 1. Pouches, 2. Planges, 3. Felipe seals, 4. Stoma adhesive, 5. Stoma powder, 6. Skin preps, 7. Adhesive remover wipes. Dispense 1 year supplies. tiZANidine (ZANAFLEX) 4 mg tablet Take by mouth. . Takes 1 tablet at bedtime. No current facility-administered medications for this visit. FAMILY HISTORY Problem Relation Age of Onset Alcohol/Drug Mother Hypertension Mother COPD other (vascular disease) Mother other (sleep apnea) Mother other (heart murmur) Mother Alcohol/Drug Father Cancer Father liver Asthma Brother Hypertension Daughter Diabetes Maternal Grandmother Stroke Maternal Grandmother Heart Maternal Grandmother Emphysema Paternal Grandmother Diabetes Paternal Grandfather Macular Degen Paternal Grandfather Anesthesia Problems No Family History F-hemochromatosis, in from it. SOCIAL HISTORY: Lives in [place], [place] with spouse. 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 1 daughter, 24 yo lives with her. 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 Tobacco use: None Alcohol use: None Drug use: None PHYSICAL EXAM: BP 127/76 Pulse 70 Ht 151.1 cm (4' 11.5) Wt 70 kg (154 lb 5.2 oz) LMP 07/25/2018 BMI 30.65 kg/m CONSTITUTIONAL: Well-appearing, in NAD. SKIN: Psoriasis of the occipital scalp, elsewhere resolved. No sclerodactyly, calcinosis, telangiectasias, digital ulcers, or skin thickening. EYES: No scleral icterus or conjunctivitis. ENT and Mouth: External ears normal. RESPIRATORY: Normal breath sounds, clear to auscultation. CARDIOVASCULAR: Regular rate and rhythm, no murmurs or rubs EXTREMITIES/LYMPH: No edema bilaterally NEURO: Awake, alert and oriented, antalgic gait MUSCULOSKELETAL: JOINT APPEARANCE: No erythema or warmth of any upper or lower extremity joint. RANGE OF MOTION: Able to fully close fists and curl fingers bilaterally. SWOLLEN JOINTS/SYNOVITIS: No synovitis of any joint. TENDER JOINTS: None + ? Cyst to R 2nd dip No tenderness to spine *Jun Widespread Pain Index: 16 (0-19) Symptoms Severity Scale: 6 (0-12) WPI>7 and SS Scale>5 OR WPI 3-6 and SS Scale >9 consistent with fibromyalgia Labs reviewed and discussed with the patient: Latest Ref Rng 06/02/2024 WBC 3.70 - 11.00 k/uL 6.34 RBC 3.90 - 5.20 m/uL 4.79 Hemoglobin 11.5 - 15.5 g/dL 14.1 Hematocrit 36.0 - 46.0 % 43.0 MCV 80.0 - 100.0 fL 89.8 MCH 26.0 - 34.0 pg 29.4 MCHC 30.5 - 36.0 g/dL 32.8 RDW-CV 11.5 - 15.0 % 12.1 Platelet Count 150 - 400 k/uL 224 MPV 9.0 - 12.7 fL 10.4 Neut% % 39.8 Abs Neut (ANC) 1.45 - 7.50 k/uL 2.53 Lymph% % 48.7 Abs Lymph 1.00 - 4.00 k/uL 3.09 [place]% % 7.3 Abs [place] <0.87 k/uL 0.46 Eosin% % 3.2 Abs Eosin <0.46 k/uL 0.20 Baso% % 0.8 Abs Baso <0.11 k/uL 0.05 Immature Gran % % 0.2 IMMATURE GRANS (ABS) <0.10 k/uL <0.03 DTYPE Auto Protein, Total 6.3 - 8.0 g/dL 6.5 Albumin 3.9 - 4.9 g/dL 4.2 Calcium 8.5 - 10.2 mg/dL 10.1 Bilirubin, Total 0.2 - 1.3 mg/dL 0.3 Alkaline Phosphatase 34 - 123 U/L 129 (H) AST 13 - 35 U/L 23 ALT 7 - 38 U/L 32 Glucose 74 - 99 mg/dL 155 (H) BUN 7 - 21 mg/dL 13 Creatinine 0.58 - 0.96 mg/dL 0.67 Sodium 136 - 144 mmol/L 140 Potassium 3.7 - 5.1 mmol/L 3.8 Chloride 98 - 107 mmol/L 105 CO2 22 - 30 mmol/L 27 Anion Gap 8 - 15 mmol/L 8 eGFR >=60 mL/min/1.73m 107 *April neg quant gold Component Latest Ref Rng & Units 04/19/2022 Hep C Antibody IA Negative Negative Hep B Surface Ag Negative Negative Hep B Surface Ab, Qual Negative Negative Hep B Core Ab, Total Negative Negative Component Latest Ref Rng & Units 09/19/2011 12/21/2011 Rheumatoid Factor <20 IU/mL <7 CCP Antibody, IgG <20 Units <15 HLA B27 NEGAT Positive (A) INOCENCIO by EIA <1.5 OD Ratio 0.4 Anti-SSA <1.0 AI <0.2 Anti-SSB <1.0 AI <0.2 STUDIES: *April MRI R shoulder- mild supraspinatus tendinosis *Oct xray L foot- Calcaneal enthesophytes. *Oct MRI pelvis- NO ACUTE ABNORMALITY Sacroiliac joints: Punctate area of subchondral edema within the right sacrum at the SI joint on series 8 image 11, doubtful clinical significance. *Sep xray SI joints- Asymmetrical sacroiliitis involving the left SI joint. *Sep xray hands/feet- Mild degenerative change. IMPRESSION and PLAN: 1. Seronegative spondyloarthropathy: With joint pain/swelling responsive to systemic effect of localized steroid joint injections in the setting of a positive HLA-B27, x-rays show L SI joint sacroiliitis, history of Crohn's and psoriasis. Remicade with blisters. Stelara with improvement in the skin and joints. Stable. - Continue stelara 45mg SC every 12 weeks. - continue HEP -she declined hand x-rays today 2. Spinal osteoarthritis: - Continue pain clinic management (not [facility]) 3. R rotator cuff tear: - Orthopedic management 4. General health maintenance: - Not planning to get the covid vaccine as she had covid in March - Advised to continue follow-up with PCP for routine health maintenance and malignancy screening Follow-up in 5 months, or sooner if needed Thank you for allowing me to participate in the care of your patient. Steve Juarez APRN.SQL ANALYST documented in this encounter [facility] 06-07-2024 Note HNO ID: [id number] Author: STEVE JUAREZ APRN.SQL ANALYST Service: ? Author Type: Nurse Practitioner Type: Progress Notes Filed: 06/07/2024 14:29 Note Text: Follow-up of seronegative spondyloarthropathy HPI: To review, Sid Lezama is a 48 year old female - Since teenage years, with intermittent joint pain and swelling. Affected joints include the wrists, MCPs, PIPs, knees, ankles and toes. Also gets hip pain. Eases with movement/activity. Worst pain is evening. - In April, diagnosed with Crohn's per colonoscopy. Underwent surgery to remove the large intestine. - In , had a rectal fistula so tried remicade (stopped s/p 6th dose for rash). Rectal stump was removed after that. - Sees pain management for serial spinal injections - In , diagnosed with psoriasis over scalp, knees and dorsal feet. - In Jun, reported no GI issues, no need for medication or surgery for Crohn's since . Diagnosed with SpA. Advised humira which she decided against starting given c/f potential SE - Since February, has been seeing holistic provider. Taking supplements - In Jul, reported she had lost 20 lbs. Overall stable. - In Jun, reported she had 3 doses of stelara which she started after the prior visit. Had had 3 doses thus far. Improved psoriasis, not yet of joints - at [facility], reports 70-80% improved in the joints and skin with the stelara. Was due 12/22/23, needs more. 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 Lumbago 01/10/2007 Myalgia and myositis, unspecified Pain management Dr Stern Nonalcoholic fatty liver disease 08/24/2007 Other and unspecified hyperlipidemia 01/10/2007 PMH - PAST MEDICAL HISTORY OF Cx scarred to post vag wall/difficult exam Pneumonia, organism unspecified(486) 01/10/2007 Regional enteritis of large intestine (HCC) 08/07/2006 Retention of urine, unspecified 01/01/2007 Rheumatoid arthritis(714.0) Dr. Mc, [facility] Type II or unspecified type diabetes mellitus without mention of complication, not stated as uncontrolled Ureterolithiasis 07/18/2019 GERD PAST SURGICAL HISTORY Procedure Laterality Date ADENOIDECTOMY PRIMARY Adenoidectomy ARTHROSCOPY KNEE DIAGNOSTIC W/WO SYNOVIAL BX SPX 1989 Arthroscopy, knee, left BRNCHSC INCL FLUOR GDNCE DX W/CELL WASHG SPX 01/2007 Bronchoscopy EGD 05/02/2023 EPIDURAL 2011 multiple ones done by Dr. Beckett ILEOSCOPY 05/02/2023 PAST SURGICAL HISTORY OF 06/2000 ILEOSTOMY/COLECTOMY PAST SURGICAL HISTORY OF 1993 CRYOCAUTERY/ MILD DYSPLASIA PAST SURGICAL HISTORY OF 03/2006 Abdominal abscess with anal fistula PRCTECT COMPL W/STOT/TOT COLCT W/VENEER JOINER BXS 12/05/2006 AP endoanal proctectomy SHOULDER ARTHROSCOPY/SURGERY Left 05/06/2020 Rotator cuff debridement, subacromial decompression/arthroplasty TONSILLECTOMY PRIMARY/SECONDARY Tonsillectomy ALLERGIES Allergen Reactions Azithromycin Unknown thinks a rash Dilaudid [Hydromorp* Swelling migraines Levemir [Insulin De* Other: See Comments Urine turned dark and smelly Methadone Swelling migraine Morphine Swelling migraines Remicade [Inflixima* Intolerance, Rash broke out in blisters with the 6th dose. Ultram [Tramadol Hc* Swelling migraines INTERVAL HISTORY She is here for follow up. She went to the ED 06/02/2024 for a kidney stone. She states the stone has passed. Joint symptoms have been stable overall since the ONUR. She continues to have diarrhea, but states bowel symptoms are stable. She takes percocet for pain. She stopped taking lyrica in 02/2024. Sites of pain: L hip, low back, shoulders, elbows, pain rated 3-4/10 Joint swelling: R 2nd dip EMS: yes, lasting 60 minutes Psoriasis: hands, scalp- she is not using any topical treatments No recent infections. Tolerating meds. Answers submitted by the patient for this visit: Review of Systems Rheumatology (Submitted on 06/07/2024) Fever : No Recent unintentional weight change: No Eye pain: No Eye redness: No Vision Disturbance: No Eye Dryness: No Nosebleeds: No Sores in your mouth: No Trouble Swallowing: No Dry Mouth: No Chest pain: No Leg Swelling: No A cough: No Shortness of breath: No Pain with breathing: No Heartburn: No Abdominal pain: No Diarrhea: Yes Black tarry stools: No Blood in urine: No Pain or burning with urination: No Joint pain or stiffness: Yes Muscle weakness: Yes Muscle aches: Yes Joint swelling: Yes Morning Stiffness in Joints: Yes A rash: No Sk (more content not included)... [facility] 06-05-2024 History of Present illness Narrative [facility] Specialty Refill Assessment Medication(s): Stelara Patient's current medication list and adherence status to current therapy were reviewed by Specialty Pharmacy clinical pharmacist to identify any new drug interactions or non-compliance to therapy. Therapy continues to be appropriate for disease, patient response, and medical condition. Verification of therapeutic benefit and effectiveness with current therapy was completed. Adverse events, barriers in adherence, and side effects were assessed and addressed if applicable. Will proceed with refill with no changes in therapy - patient progressing towards achieving therapeutic goals based on medication-specific laboratory parameters, disease state markers and outcomes. Ustekinumab (Stelara) - IL-12/23 Inhibitor CBC with differential (baseline); complete metabolic panel (baseline); tuberculosis (TB) screening prior to initiating and during therapy (chest X-ray if TB positive); hepatitis C virus/hepatitis B virus (HBV) screening prior to initiating (all patients), HBV carriers (during and for several months following therapy); HIV screening (baseline) (AAD/NPF [Menter 2019]); monitor for signs/symptoms of infection, posterior reversible encephalopathy syndrome, and squamous cell skin carcinoma. CBC with differential: WBC Date Value Ref Range Status 06/02/2024 6.34 3.70 - 11.00 k/uL Final RBC Date Value Ref Range Status 06/02/2024 4.79 3.90 - 5.20 m/uL Final Hemoglobin Date Value Ref Range Status 06/02/2024 14.1 11.5 - 15.5 g/dL Final Hematocrit Date Value Ref Range Status 06/02/2024 43.0 36.0 - 46.0 % Final MCV Date Value Ref Range Status 06/02/2024 89.8 80.0 - 100.0 fL Final MCH Date Value Ref Range Status 06/02/2024 29.4 26.0 - 34.0 pg Final MCHC Date Value Ref Range Status 06/02/2024 32.8 30.5 - 36.0 g/dL Final RDW-CV Date Value Ref Range Status 06/02/2024 12.1 11.5 - 15.0 % Final Platelet Count Date Value Ref Range Status 06/02/2024 224 150 - 400 k/uL Final MPV Date Value Ref Range Status 06/02/2024 10.4 9.0 - 12.7 fL Final Neutrophils % Date Value Ref Range Status 06/02/2024 39.8 % Final Lymphocytes % Date Value Ref Range Status 06/02/2024 48.7 % Final Monocytes % Date Value Ref Range Status 06/02/2024 7.3 % Final Eosinophils % Date Value Ref Range Status 06/02/2024 3.2 % Final Basophils % Date Value Ref Range Status 06/02/2024 0.8 % Final Abs Neut Date Value Ref Range Status 06/02/2024 2.53 1.45 - 7.50 k/uL Final Abs [place] Date Value Ref Range Status 06/02/2024 0.46 <0.87 k/uL Final Abs Eosin Date Value Ref Range Status 06/02/2024 0.20 <0.46 k/uL Final Abs Baso Date Value Ref Range Status 06/02/2024 0.05 <0.11 k/uL Final CMP: Albumin Date Value Ref Range Status 06/02/2024 4.2 3.9 - 4.9 g/dL Final Calcium, Total Date Value Ref Range Status 06/02/2024 10.1 8.5 - 10.2 mg/dL Final Bilirubin, Total Date Value Ref Range Status 06/02/2024 0.3 0.2 - 1.3 mg/dL Final Alkaline Phosphatase Date Value Ref Range Status 06/02/2024 129 (H) 34 - 123 U/L Final AST Date Value Ref Range Status 06/02/2024 23 13 - 35 U/L Final ALT Date Value Ref Range Status 06/02/2024 32 7 - 38 U/L Final Glucose Date Value Ref Range Status 06/02/2024 155 (H) 74 - 99 mg/dL Final Comment: The [place] [employer] (ADA) provides guidance for cutoff values for fasting glucose and random glucose. The ADA defines fasting as no caloric intake for at least 8 hours. Fasting plasma glucose results between 100 to 125 [...] Standards of Medical Care in Diabetes 2016, [place] [employer]. Diabetes Care. 2016.39(Suppl 1). BUN Date Value Ref Range Status 06/02/2024 13 7 - 21 mg/dL Final Creatinine Date Value Ref Range Status 06/02/2024 0.67 0.58 - 0.96 mg/dL Final Sodium Date Value Ref Range Status 06/02/2024 140 136 - 144 mmol/L Final Potassium Date Value Ref Range Status 06/02/2024 3.8 3.7 - 5.1 mmol/L Final Chloride Date Value Ref Range Status 06/02/2024 105 98 - 107 mmol/L Final CO2 Date Value Ref Range Status 06/02/2024 27 22 - 30 mmol/L Final Anion Gap Date Value Ref Range Status 06/02/2024 8 8 - 15 mmol/L Final eGFR- Date Value Ref Range Status 12/21/2021 >60 Final Estimated Glomerular Filtration Rate Date Value Ref Range Status 06/02/2024 107 >=60 mL/min/1.73m Final Comment: Estimated Glomerular Filtration Rate (eGFR) is calculated using the 2020 CKD-EPI creatinine equation. This equation utilizes serum creatinine, sex, and age as parameters. The creatinine assay has traceable calibration to isotope dilution-mass spectrometry. Refer to KDIGO guidelines for clinical interpretation. In patients with unstable renal function, e.g. those with acute kidney injury, the eGFR may not accurately reflect actual GFR. HBsAg Date Value Ref Range Status 06/18/2021 Negative Negative Final Hep B Surface Ab, Qual Date Value Ref Range Status 04/19/2022 Negative Negative Final Comment: No evidence of current or past infection with Hepatitis B virus. Should recent infection be suspected, repeat testing may be considered 3-4 weeks after this draw. Hepatitis B Core Ab, Total Date Value Ref Range Status 04/19/2022 Negative Negative Final Comment: No evidence of current or past infection with Hepatitis B virus. Should recent infection be suspected, repeat testing may be considered 3-4 weeks after this draw. Hep C Antibody IA Date Value Ref Range Status 04/19/2022 Negative Negative Final Comment: The result suggests no evidence of active infection with Hepatitis C virus. Should recent infection be suspected, repeat testing may be considered 4-6 weeks after this draw. TB Result Date Value Ref Range Status 04/19/2022 Negative Final No results found for: HIV1AB Current Outpatient Medications on File Prior to Visit Medication Sig tamsulosin (FLOMAX) 0.4 mg Take 1 capsule by mouth daily at bedtime for 7 days. Lancets (ACCU-CHEK FASTCLIX LANCET DRUM) Use as instructed to check blood glucose up to 2 times daily. E11.9 Insulin Lynch, Disposable, (DROPLET PEN NEEDLE) 32 gauge x 5/32 USE TO INJECT ONE TIME DAILY Lancing Device with Lancets ACCU CHEK FASTCLIX LANCET *DEVICE* use to check blood glucose up to 2 times per day as instructed. E11.9 GVOKE PFS 1-PACK SYRINGE 1 mg/0.2 mL syrg INJECT 0.2 ML UNDER THE SKIN NEEDED. Cholecalciferol, Vitamin D3, 50 mcg (2,000 unit) cap DAILY mecobalamin, vitamin B12, 1,000 mcg ODT DAILY insulin glargine (LANTUS SOLOSTAR U-100 INSULIN) 100 unit/mL (3 mL) INJECT 25 UNITS UNDER THE SKIN bedtime semaglutide (OZEMPIC) 1 mg/dose (4 mg/3 mL) pen Inject 1 mg subcutaneously one time a week. Patient should start on May 13, 2024. Blood-Glucose Sensor (FREESTYLE GIANFRANCO 3 SENSOR) matilda Apply new sensor every fourteen (14) days to upper arm. E11.9 blood sugar diagnostic (ACCU-CHEK GUIDE TEST STRIPS) test strip Use with blood glucose test three times a day. E11.9 Blood-Glucose Meter,Continuous (FREESTYLE GIANFRANCO 3 READER) [facility] Use to check blood sugar at least four (4) times daily. pantoprazole DR (PROTONIX) 20 mg tablet Take 1 tablet by mouth daily before breakfast. Take on empty stomach, 1/2 hr before meal. ustekinumab (STELARA) 45 mg/0.5 mL sub-Q syringe Inject 45 mg (1 syringe) subcutaneously every 12 weeks clobetasol (TEMOVATE) 0.05 % ointment Apply to affected area two times a day. Face. Feet. Two weeks on and two weeks off, per [facility]. fexofenadine HCl (LELA ORAL) Take by mouth. levonorgestrel (MIRENA) 20 mcg/24 hours (8 yrs) 52 mg IUD 1 Each by INTRAUTERINE route as directed. oxyCODONE-acetaminophen (PERCOCET) 5-325 mg tablet TAKE 1 TABLET BY MOUTH 3 TIMES A DAY NEEDED FOR 28 DAYS rizatriptan (MAXALT VENEER JOINER) 10 mg disintegrating tablet Take 1 tablet by mouth as needed for migraine headache (see administration instructions). May repeat in 2 hours if needed vits62/FA/om3/dha/epa ( GUMMY ORAL) Take 2 Doses by mouth once daily. Blood-Glucose Meter (ACCU-CHEK DIANNE) Test blood sugar(s) 2 times daily. Dx: Type 2 DM - Controlled E11.9 Insulin: No, Accu-check brand covered by insurance Ascorbic Acid 500 mg chew Take 1,000 mg by mouth once daily. With rosehips elderberry fruit (ELDERBERRY ORAL) Take by mouth. COMPOUNDED PRESCRIPTION 1. V44.2 Ileostomy status (HCC) (primary diagnosis) 2. 555.1 Regional enteritis of large intestine (HCC) Ileostomy Supplies. 1. Pouches, 2. Planges, 3. Felipe seals, 4. Stoma adhesive, 5. Stoma powder, 6. Skin preps, 7. Adhesive remover wipes. Dispense 1 year supplies. tiZANidine (ZANAFLEX) 4 mg tablet Take by mouth. . Takes 1 tablet at bedtime. No current facility-administered medications on file prior to visit. ALLERGIES Allergen Reactions Azithromycin Unknown thinks a rash Dilaudid [Hydromorp* Swelling migraines Levemir [Insulin De* Other: See Comments Urine turned dark and smelly Methadone Swelling migraine Morphine Swelling migraines Remicade [Inflixima* Intolerance, Rash broke out in blisters with the 6th dose. Ultram [Tramadol Hc* Swelling migraines Canceled Appointments: Future Appointments Date Time Provider Department Center 06/17/2024 1:40 PM Safia Jaiml MD [facility] [place] 07/17/2024 3:30 PM Samy Barragan PA-C UROLST [facility] 08/30/2024 11:00 AM Pharmacist, [facility] 2 [id number] None 10/25/2024 10:00 AM Steve Juarez, PERMIT TECHNICIAN.SQL ANALYST [facility] 11/19/2024 9:00 AM Alie Stallworth, PERMIT TECHNICIAN.SQL ANALYST [facility] 03/24/2025 10:00 AM Scott Gold MD R[facility] 08/25/2025 10:00 AM Steve Juarez, PERMIT TECHNICIAN[facility] Clinical Pharmacist - Biologics: Allergy, Immunology, and Inflammatory [facility] ; Pool: P [facility] Pool #: [id number] Feeder Operator Assessment Patient confirmed: Yes Med/dose confirmed: Yes Supplies needed: No supplies needed Missed doses: No Estimated days supply on hand: 0 Next cycle/dose due: 06/17/24 Copay amount: 0 Payment confirmed: Yes Delivery method: FedEx Signature required: Waived on patient request Delivery address: [address] [place] [address] Delivery date: 06/12/24 Questions or concerns for the pharmacist?: No Did you have any side effects believed to be related to this medication, that resulted in hospitalization?: No Current Outpatient Medications on File Prior to Visit Medication Sig tamsulosin (FLOMAX) 0.4 mg Take 1 capsule by mouth daily at bedtime for 7 days. Lancets (ACCU-CHEK FASTCLIX LANCET DRUM) Use as instructed to check blood glucose up to 2 times daily. E11.9 Insulin Lynch, Disposable, (DROPLET PEN NEEDLE) 32 gauge x 5/32 USE TO INJECT ONE TIME DAILY Lancing Device with Lancets ACCU CHEK FASTCLIX LANCET *DEVICE* use to check blood glucose up to 2 times per day as instructed. E11.9 GVOKE PFS 1-PACK SYRINGE 1 mg/0.2 mL syrg INJECT 0.2 ML UNDER THE SKIN NEEDED. Cholecalciferol, Vitamin D3, 50 mcg (2,000 unit) cap DAILY mecobalamin, vitamin B12, 1,000 mcg ODT DAILY insulin glargine (LANTUS SOLOSTAR U-100 INSULIN) 100 unit/mL (3 mL) INJECT 25 UNITS UNDER THE SKIN bedtime semaglutide (OZEMPIC) 1 mg/dose (4 mg/3 mL) pen Inject 1 mg subcutaneously one time a week. Patient should start on May 13, 2024. Blood-Glucose Sensor (FREESTYLE GIANFRANCO 3 SENSOR) matilda Apply new sensor every fourteen (14) days to upper arm. E11.9 blood sugar diagnostic (ACCU-CHEK GUIDE TEST STRIPS) test strip Use with blood glucose test three times a day. E11.9 Blood-Glucose Meter,Continuous (FREESTYLE GIANFRANCO 3 READER) [facility] [place] Use to check blood sugar at least four (4) times daily. pantoprazole DR (PROTONIX) 20 mg tablet Take 1 tablet by mouth daily before breakfast. Take on empty stomach, 1/2 hr before meal. pregabalin (LYRICA) 25 mg capsule Take 1 capsule by mouth once daily for 30 days. ustekinumab (STELARA) 45 mg/0.5 mL sub-Q syringe Inject 45 mg (1 syringe) subcutaneously every 12 weeks clobetasol (TEMOVATE) 0.05 % ointment Apply to affected area two times a day. Face. Feet. Two weeks on and two weeks off, per [facility]. fexofenadine HCl (LELA ORAL) Take by mouth. levonorgestrel (MIRENA) 20 mcg/24 hours (8 yrs) 52 mg IUD 1 Each by INTRAUTERINE route as directed. oxyCODONE-acetaminophen (PERCOCET) 5-325 mg tablet TAKE 1 TABLET BY MOUTH 3 TIMES A DAY NEEDED FOR 28 DAYS rizatriptan (MAXALT VENEER JOINER) 10 mg disintegrating tablet Take 1 tablet by mouth as needed for migraine headache (see administration instructions). May repeat in 2 hours if needed vits62/FA/om3/dha/epa ( GUMMY ORAL) Take 2 Doses by mouth once daily. Blood-Glucose Meter (ACCU-CHEK DIANNE) Test blood sugar(s) 2 times daily. Dx: Type 2 DM - Controlled E11.9 Insulin: No, Accu-check brand covered by insurance Ascorbic Acid 500 mg chew Take 1,000 mg by mouth once daily. With rosehips elderberry fruit (ELDERBERRY ORAL) Take by mouth. COMPOUNDED PRESCRIPTION 1. V44.2 Ileostomy status (HCC) (primary diagnosis) 2. 555.1 Regional enteritis of large intestine (HCC) Ileostomy Supplies. 1. Pouches, 2. Planges, 3. Felipe seals, 4. Stoma adhesive, 5. Stoma powder, 6. Skin preps, 7. Adhesive remover wipes. Dispense 1 year supplies. tiZANidine (ZANAFLEX) 4 mg tablet Take by mouth. . Takes 1 tablet at bedtime. No current facility-administered medications on file prior to visit. [facility] CLINICAL ASSESSMENT - INFLAMMATORY CONDITIONS V6: Assessment to use: Refill Assessment of injection issues: Yes Infection screening, including annual TB assessment when applicable to medication: Yes Current medication list (including drug interaction assessment): Yes Experience of adverse reactions to the medication: Yes [facility] VACCINE INFORMATION [facility] TREATMENT PLAN INFORMATION Shira Matta CPhT, Inflammatory/Allergy [facility] [phone] documented in this encounter [facility] 06-05-2024 Note HNO ID: [id number] Author: ORNELAS RPh Service: ? Author Type: ? Type: Progress Notes Filed: 06/10/2024 17:30 Note Text: [facility] Specialty Refill Assessment Medication(s): Stelara Patient's current medication list and adherence status to current therapy were reviewed by Specialty Pharmacy clinical pharmacist to identify any new drug interactions or non-compliance to therapy. Therapy continues to be appropriate for disease, patient response, and medical condition. Verification of therapeutic benefit and effectiveness with current therapy was completed. Adverse events, barriers in adherence, and side effects were assessed and addressed if applicable. Will proceed with refill with no changes in therapy - patient progressing towards achieving therapeutic goals based on medication-specific laboratory parameters, disease state markers and outcomes. Ustekinumab (Stelara) - IL-12/23 Inhibitor CBC with differential (baseline); complete metabolic panel (baseline); tuberculosis (TB) screening prior to initiating and during therapy (chest X-ray if TB positive); hepatitis C virus/hepatitis B virus (HBV) screening prior to initiating (all patients), HBV carriers (during and for several months following therapy); HIV screening (baseline) (AAD/NPF [Menter 2019]); monitor for signs/symptoms of infection, posterior reversible encephalopathy syndrome, and squamous cell skin carcinoma. CBC with differential: WBC Date Value Ref Range Status 06/02/2024 6.34 3.70 - 11.00 k/uL Final RBC Date Value Ref Range Status 06/02/2024 4.79 3.90 - 5.20 m/uL Final Hemoglobin Date Value Ref Range Status 06/02/2024 14.1 11.5 - 15.5 g/dL Final Hematocrit Date Value Ref Range Status 06/02/2024 43.0 36.0 - 46.0 % Final MCV Date Value Ref Range Status 06/02/2024 89.8 80.0 - 100.0 fL Final MCH Date Value Ref Range Status 06/02/2024 29.4 26.0 - 34.0 pg Final MCHC Date Value Ref Range Status 06/02/2024 32.8 30.5 - 36.0 g/dL Final RDW-CV Date Value Ref Range Status 06/02/2024 12.1 11.5 - 15.0 % Final Platelet Count Date Value Ref Range Status 06/02/2024 224 150 - 400 k/uL Final MPV Date Value Ref Range Status 06/02/2024 10.4 9.0 - 12.7 fL Final Neutrophils % Date Value Ref Range Status 06/02/2024 39.8 % Final Lymphocytes % Date Value Ref Range Status 06/02/2024 48.7 % Final Monocytes % Date Value Ref Range Status 06/02/2024 7.3 % Final Eosinophils % Date Value Ref Range Status 06/02/2024 3.2 % Final Basophils % Date Value Ref Range Status 06/02/2024 0.8 % Final Abs Neut Date Value Ref Range Status 06/02/2024 2.53 1.45 - 7.50 k/uL Final Abs [place] Date Value Ref Range Status 06/02/2024 0.46 <0.87 k/uL Final Abs Eosin Date Value Ref Range Status 06/02/2024 0.20 <0.46 k/uL Final Abs Baso Date Value Ref Range Status 06/02/2024 0.05 <0.11 k/uL Final CMP: Albumin Date Value Ref Range Status 06/02/2024 4.2 3.9 - 4.9 g/dL Final Calcium, Total Date Value Ref Range Status 06/02/2024 10.1 8.5 - 10.2 mg/dL Final Bilirubin, Total Date Value Ref Range Status 06/02/2024 0.3 0.2 - 1.3 mg/dL Final Alkaline Phosphatase Date Value Ref Range Status 06/02/2024 129 (H) 34 - 123 U/L Final AST Date Value Ref Range Status 06/02/2024 23 13 - 35 U/L Final ALT Date Value Ref Range Status 06/02/2024 32 7 - 38 U/L Final Glucose Date Value Ref Range Status 06/02/2024 155 (H) 74 - 99 mg/dL Final Comment: The [place] [employer] (ADA) provides guidance for cutoff values for fasting glucose and random glucose. The ADA defines fasting as no caloric intake for at least 8 hours. Fasting plasma glucose results between 100 to 125 [...] Standards of Medical Care in Diabetes 2016, [place] [employer]. Diabetes Care. 2016.39(Suppl 1). BUN Date Value Ref Range Status 06/02/2024 13 7 - 21 mg/dL Final Creatinine Date Value Ref Range Status 06/02/2024 0.67 0.58 - 0.96 mg/dL Final Sodium Date Value Ref Range Status 06/02/2024 140 136 - 144 mmol/L Final Potassium Date Value Ref Range Status 06/02/2024 3.8 3.7 - 5.1 mmol/L Final Chloride Date Value Ref Range Status 06/02/2024 105 98 - 107 mmol/L Final CO2 Date Value Ref Range Status 06/02/2024 27 22 - 30 mmol/L Final Anion Gap Date Value Ref Range Status 06/02/2024 8 8 - 15 mmol/L Final eGFR- Date Value Ref Range Status 12/21/2021 >60 Final Estimated Glomerular Filtration Rate Date Value Ref (more content not included)... [facility] 05-30-2024 History of Present illness Narrative Radiology Service Progress Note PATIENT NAME: Sid Lezama DATE OF SERVICE: May 30, 2024 TIME: 11:11 AM PATIENT IDENTITY VERIFICATION COMPLETED USING TWO (2) IDENTIFIERS: Name and Date of confirmed by patient verbally. FALL SCREENING: Has the patient had 2 falls in the last year or 1 fall with injury or currently using an Ambulatory Assistive Device (Walker, Cane, Wheelchair, Crutches, etc.)? No PATIENT GENDER DATA: Female. status: : No status: NO. PATIENT RELEVANT IMPLANT DATA REVIEWED: Not Applicable PATIENT PRESENTS WITH AN IMPLANTABLE OR ATTACHED SODA JERKER: No RADIOLOGY DEPARTMENT: Ultrasound PERIPHERAL IV DATA: Not applicable SIGNED BY: Jocelyne Fuentes RDMS May 30, 2024 11:11 AM documented in this encounter [facility] 05-30-2024 Note HNO ID: [id number] Author: JOCELYNE FUENTES RDMS Service: ? Author Type: Feeder Operator Type: Progress Notes Filed: 05/30/2024 11:11 Note Text: Radiology Service Progress Note PATIENT NAME: Sid Lezama DATE OF SERVICE: May 30, 2024 TIME: 11:11 AM PATIENT IDENTITY VERIFICATION COMPLETED USING TWO (2) IDENTIFIERS: Name and Date of confirmed by patient verbally. FALL SCREENING: Has the patient had 2 falls in the last year or 1 fall with injury or currently using an Ambulatory Assistive Device (Walker, Cane, Wheelchair, Crutches, etc.)? No PATIENT GENDER DATA: Female. status: : No status: NO. PATIENT RELEVANT IMPLANT DATA REVIEWED: Not Applicable PATIENT PRESENTS WITH AN IMPLANTABLE OR ATTACHED SODA JERKER: No RADIOLOGY DEPARTMENT: Ultrasound PERIPHERAL IV DATA: Not applicable SIGNED BY: Jocelyne Fuentes RDMS May 30, 2024 11:11 AM [facility] 05-30-2024 Telephone encounter Note Requester: Patient Patients last Endocrinology visit occurred 05/20/24. Follow-up evaluation has been established Upcoming Endocrinology Appointments - Next 365 Days Visit Type Date Time Department VIDEO SPEC EST 11/19/2024 9:00 AM ENDO MAIN . Requested Prescriptions Pending Prescriptions Disp Refills Lancets (ACCU-CHEK FASTCLIX LANCET DRUM) 200 Each 3 Sig: Use as instructed to check blood glucose up to 2 times daily. E11.9 If patient is due for an appointment please route to provider for refill consideration and also to the endo scheduling pool. PSS NOTE: Patient needs scheduled appointment No [facility] 05-30-2024 Miscellaneous Notes Requester: Patient Patients last Endocrinology visit occurred 05/20/24. Follow-up evaluation has been established Upcoming Endocrinology Appointments - Next 365 Days Visit Type Date Time Department VIDEO SPEC EST 11/19/2024 9:00 AM ENDO MAIN . Requested Prescriptions Pending Prescriptions Disp Refills Lancets (ACCU-CHEK FASTCLIX LANCET DRUM) 200 Each 3 Sig: Use as instructed to check blood glucose up to 2 times daily. E11.9 If patient is due for an appointment please route to provider for refill consideration and also to the endo scheduling pool. PSS NOTE: Patient needs scheduled appointment No documented in this encounter [facility] 05-27-2024 Telephone encounter Note Requester: Pharmacy Patients last Endocrinology visit occurred 02/16/24. Follow-up evaluation has been established Upcoming Endocrinology Appointments - Next 365 Days Visit Type Date Time Department VIDEO SPEC EST 11/19/2024 9:00 AM ENDO MAIN . Requested Prescriptions Pending Prescriptions Disp Refills Insulin Lynch, Disposable, (DROPLET PEN NEEDLE) 32 gauge x 5/32 [Pharmacy Med Name: DROPLET PEN NEEDLES [id number] 32G X 4 MM] 100 Each 3 Sig: USE TO INJECT ONE TIME DAILY If patient is due for an appointment please route to provider for refill consideration and also to the endo scheduling pool. PSS NOTE: Patient needs scheduled appointment No [facility] 05-27-2024 Miscellaneous Notes Requester: Pharmacy Patients last Endocrinology visit occurred 02/16/24. Follow-up evaluation has been established Upcoming Endocrinology Appointments - Next 365 Days Visit Type Date Time Department VIDEO SPEC EST 11/19/2024 9:00 AM ENDO MAIN . Requested Prescriptions Pending Prescriptions Disp Refills Insulin Lynch, Disposable, (DROPLET PEN NEEDLE) 32 gauge x 5/32 [Pharmacy Med Name: DROPLET PEN NEEDLES [id number] 32G X 4 MM] 100 Each 3 Sig: USE TO INJECT ONE TIME DAILY If patient is due for an appointment please route to provider for refill consideration and also to the endo scheduling pool. PSS NOTE: Patient needs scheduled appointment No documented in this encounter [facility] 05-20-2024 History of Present illness Narrative Images from the original note were not included. HISTORY Mrs Sid Lezama is a 48 year old female here for follow-up of Type 2 DM Dyslipidemia Fatty liver since 17 y/o per patient; elevated liver enzymes Steroid treatment Low bone mass Primary hyperparathyroidism - hypercalcemia, hypercalciuria DIABETES Diagnosed DM in 2006, was having reactive hypoglycemia Complications/comorbidities: retinal hole +neuropathy from cervical problems Recently seen in the ED (05/06/24) for ureterolithiasis. Believed to have passed the kidney stone while in the ED. Was discharged to home from the ED. STEROIDS/BONE Has ileostomy bag Has Crohn's - no steroids for this, has ileostomy Has primary hyperparathyroidism - hypercalcemia, hypercalciuria BMD done in 04/2017 showed lowest Z score -2.3 BMD in 2020 Lowest T score - 1.8 Pertinent decrease (though different machine? bone mineral density of the femoral neck is 0.635 ) 10-year Fracture Risk (FRAX): Major osteoporotic fracture risk 6.% Hip fracture risk 0.9% BUT has hyperparathyroidism Lucy discussed briefly in the past as possibility but then PTH seemed to be a player so deferred Lucy Saw Dr. Teresa 2022 for parathyroid surgery eval Patient deferred, prefers holistic approach INTERVAL HISTORY History of relatedmedications: Metformin started first Januvia started 2011 Glyburide caused lows 50s Lantus Januvia 50 mg daily - stopped when Trulicity started Nov 2018 Trulicity 1.5 mg, mild abd discomfort after eating Farxiga 5 mg - getting yeast infections, stopped Was on atorvastatin, stopped, wanting to go holistic Red yeast rice - stopped Metformin 1000 mg BID - she wanted to come off this and was able Lantus - 25 units morning - just started last night since she received steroid injection yesterday Current related medications: Ozempic 2 mg weekly - not taking regularly Calcium intake in diet/supplements: takes nutritional shake, yogurt, cheese Vitamin D intake: has supplements from holistic provider IUD Mirena 2022 last insertion Supplements from holistic provider Fernando Medel 3 steroid injections to neck (C3) and back L4, L5, S1, S5 - less often now, local pain med doctor at [place], patient not yet wanting second opinion. last injection was on February 14. This has caused her blood sugar to increase, she has started taking the lantus 25 units at bedtime which seems to help. 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 FamHx: Neg thyroid CA Crohn's - cousins pat DM - grandparents HTN- mother CAD- maternal grandma REVIEW OF SYSTEMS Answers submitted by the patient for this visit: Core Review of Systems (Submitted on 05/20/2024) Fever : No Nasal Congestion: No Hearing Loss: No Vision Disturbance: No A cough: No Chest pain: No Irregular heartbeat: No Leg Swelling: No Nausea: No Diarrhea: Yes Black tarry stools: No Difficulty Urinating?: No Awaken at Night More Than Once to Urinate?: Yes Joint pain or stiffness: Yes Muscle aches: Yes Leg or Foot Discomfort at Night?: No A rash: Yes Dizziness: No Headaches: Yes Memory Loss: No Seizures: No PHYSICAL EXAMINATION BP 129/71 Pulse 70 Wt 71.2 kg (157 lb) LMP 07/25/2018 BMI 31.71 kg/m Body mass index is 31.71 kg/m . GENERAL: not in distress, well-appearing HEENT: anicteric sclerae, non-injected conjunctivae MUSCULOSKELETAL: no gross deformities, no fasciculations SKIN: dry, no cyanosis NEUROLOGIC: alert, oriented LABS REVIEWED Latest Ref Rng 08/14/2023 11/14/2023 02/16/2024 05/06/2024 05/15/2024 05/20/2024 Glucose 74 - 99 mg/dL 237 (H) BUN 7 - 21 mg/dL 12 Creatinine 0.58 - 0.96 mg/dL 0.62 Sodium 136 - 144 mmol/L 138 Potassium 3.7 - 5.1 mmol/L 4.4 Chloride 98 - 107 mmol/L 102 CO2 22 - 30 mmol/L 23 Anion Gap 8 - 15 mmol/L 13 Calcium 8.5 - 10.2 mg/dL 10.7 (H) eGFR >=60 mL/min/1.73m 109 Cholesterol, Total <200 mg/dL 217 (H) Triglyceride <150 mg/dL 167 (H) HDL Cholesterol >39 mg/dL 50 Non HDL Cholesterol <130 mg/dL 167 (H) Fasting Time hrs 12 VLDL Cholesterol <30 mg/dL 33 (H) TC:HDL Ratio <5.10 4.34 LDL Cholesterol <100 mg/dL 134 (H) LDL:HDL Ratio <2.54 2.68 (H) Creatinine, Ur Random (UCRR) 20.0 - 300.0 mg/dL 256.4 Albumin, Urine Random mg/L 17.2 Albumin/Creat Ratio <30 mg/g 7 Hemoglobin A1C (POCT) 4.3 - 5.6 % 7.8 ! 6.5 ! 7.0 ! Vitamin D 25 Hydroxy 31.0 - 80.0 ng/mL 51.5 IMAGING REVIEWED BMD Sep 2023 IMPRESSION: Osteopenia in the lumbar spine and left femoral neck and left forearm Profile Saw Operator: SANTOS Transcribe Date/Time: Sep 25 2023 12:59P Dictated by : JOVANY GARCIA MD This examination was interpreted and the report reviewed and electronically signed by: JOVANY GARCIA MD on Sep 25 2023 1:06PM EST Results-Findings * * *Final Report* * * DATE OF EXAM: Sep 25 2023 10:01AM [facility] 0870 - BD DXA - FOREARM SKELETON / PROCEDURE REASON: Primary hyperparathyroidism (HCC) * * * * Physician Interpretation * * * * EXAMINATION: DXA BONE DENSITOMETRY BD DXA - AXIAL SKELETON, BD DXA - FOREARM SKELETON PATIENT DEMOGRAPHICS: Age: 47 years, Gender: Female SCANNER INFORMATION: DXA Model: [employer] C [id number] Date Scanned: 09/25/2023 10:01 AM CLINICAL HISTORY: DIAGNOSTIC Primary hyperparathyroidism (HCC) . RISK FACTORS FOR OSTEOPOROSIS AND ASSOCIATED FRACTURES REPORTED BY THIS PATIENT: Please refer to Bone Health Questionnaire in the EMR CURRENT THERAPY: Please refer to Bone Health Questionnaire in the EMR RESULTS: Lumbar spine (L1, L2, L3, L4): 0.820 g/cm2, Z-score -1.3 Lumbar spine: 2020: 0.846 g/cm2 Left Femoral Neck: 0.634 g/cm2, Z-score -1.3 Left Femoral Neck: 2020: 0.635 g/cm2 Left Total Hip: 0.852 g/cm2, Z-score -0.3 Left Total Hip: 2020: 0.894 g/cm2 Left Forearm, Distal 1/3 of Radius: 0.610 g/cm2, Z-score -0.7 CHANGE IS STATISTICALLY SIGNIFICANT IN THE SPINE OR HIP IF GREATER THAN OR EQUAL TO 0.04 g/cm2 VERTEBRAL FRACTURE ASSESSMENT Not performed. FRAX 10 Year fracture risk Major osteoporotic fracture 7.3% Hip fracture 1% Bone density 2020 LUMBAR SPINE: The bone mineral density from L1 through L4 is 0.846 grams per square centimeter which yields a T-score of -1.8. The bone mineral density previously measured 0.954 g/sq cm. LEFT HIP: The bone mineral density of the total region of the hip is 0.894 grams per square centimeter which yields a T-score of -0.4. The bone mineral density previously measured 0.909 g/sq cm. LEFT FEMORAL NECK: The bone mineral density of the femoral neck is 0.635 grams per square centimeter which yields a T-score of -1.9. The bone mineral density previously measured 0.827 g/sq cm. 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 Lumbago 01/10/2007 Myalgia and myositis, unspecified Pain management Dr Stern Nonalcoholic fatty liver disease 08/24/2007 Other and unspecified hyperlipidemia 01/10/2007 PMH - PAST MEDICAL HISTORY OF Cx scarred to post vag wall/difficult exam Pneumonia, organism unspecified(486) 01/10/2007 Regional enteritis of large intestine (HCC) 08/07/2006 Retention of urine, unspecified 01/01/2007 Rheumatoid arthritis(714.0) Dr. Mc, [facility] Type II or unspecified type diabetes mellitus without mention of complication, not stated as uncontrolled Ureterolithiasis 07/18/2019 PAST SURGICAL HISTORY Procedure Laterality Date ADENOIDECTOMY PRIMARY <AGE 11 1986 Adenoidectomy ARTHROSCOPY KNEE DIAGNOSTIC W/WO SYNOVIAL BX SPX 1989 Arthroscopy, knee, left [facility] INCL FLUOR GDNCE DX W/CELL WASHG SPX 01/2007 Bronchoscopy EGD 05/02/2023 EPIDURAL 2011 multiple ones done by Dr. Beckett ILEOSCOPY 05/02/2023 PAST SURGICAL HISTORY OF 06/2000 ILEOSTOMY/COLECTOMY PAST SURGICAL HISTORY OF 1993 CRYOCAUTERY/ MILD DYSPLASIA PAST SURGICAL HISTORY OF 03/2006 Abdominal abscess with anal fistula PRCTECT COMPL W/STOT/TOT COLCT W/VENEER JOINER BXS 12/05/2006 AP endoanal proctectomy SHOULDER ARTHROSCOPY/SURGERY Left 05/06/2020 Rotator cuff debridement, subacromial decompression/arthroplasty TONSILLECTOMY PRIMARY/SECONDARY <AGE 11 1986 Tonsillectomy Social History Tobacco Use Smoking status: Former Packs/day: 1.00 Years: 16.00 Additional pack years: 0.00 Total pack years: 16.00 Types: Cigarettes Quit date: 12/04/2006 Years since quittin.4 Smokeless tobacco: Never Vaping Use Vaping Use: Never used Substance Use Topics Alcohol use: No Drug use: No FAMILY HISTORY Problem Relation Age of Onset Alcohol/Drug Mother Hypertension Mother COPD other (vascular disease) Mother other (sleep apnea) Mother other (heart murmur) Mother Alcohol/Drug Father Cancer Father liver Asthma Brother Hypertension Daughter Diabetes Maternal Grandmother Stroke Maternal Grandmother Heart Maternal Grandmother Emphysema Paternal Grandmother Diabetes Paternal Grandfather Macular Degen Paternal Grandfather Anesthesia Problems No Family History Current Outpatient Medications Medication Sig Lancets (ACCU-CHEK FASTCLIX LANCET DRUM) Use as instructed to check blood glucose up to 2 times daily. E11.9 Lancing Device with Lancets ACCU CHEK FASTCLIX LANCET *DEVICE* use to check blood glucose up to 2 times per day as instructed. E11.9 GVOKE PFS 1-PACK SYRINGE 1 mg/0.2 mL syrg INJECT 0.2 ML UNDER THE SKIN NEEDED. Cholecalciferol, Vitamin D3, 50 mcg (2,000 unit) cap DAILY mecobalamin, vitamin B12, 1,000 mcg ODT DAILY insulin glargine (LANTUS SOLOSTAR U-100 INSULIN) 100 unit/mL (3 mL) INJECT 25 UNITS UNDER THE SKIN bedtime semaglutide (OZEMPIC) 1 mg/dose (4 mg/3 mL) pen Inject 1 mg subcutaneously one time a week. Patient should start on May 13, 2024. Blood-Glucose Sensor (FREESTYLE GIANFRANCO 3 SENSOR) matilda Apply new sensor every fourteen (14) days to upper arm. E11.9 blood sugar diagnostic (ACCU-CHEK GUIDE TEST STRIPS) test strip Use with blood glucose test three times a day. E11.9 Blood-Glucose Meter,Continuous (FREESTYLE GIANFRANCO 3 READER) [facility] Use to check blood sugar at least four (4) times daily. pantoprazole DR (PROTONIX) 20 mg tablet Take 1 tablet by mouth daily before breakfast. Take on empty stomach, 1/2 hr before meal. Insulin Lynch, Disposable, (DROPLET PEN NEEDLE) 32 gauge x 5/32 INJECT ONE TIME DAILY ustekinumab (STELARA) 45 mg/0.5 mL sub-Q syringe Inject 45 mg (1 syringe) subcutaneously every 12 weeks clobetasol (TEMOVATE) 0.05 % ointment Apply to affected area two times a day. Face. Feet. Two weeks on and two weeks off, per [facility] D[facility]. fexofenadine HCl (LELA ORAL) Take by mouth. levonorgestrel (MIRENA) 20 mcg/24 hours (8 yrs) 52 mg IUD 1 Each by INTRAUTERINE route as directed. oxyCODONE-acetaminophen (PERCOCET) 5-325 mg tablet TAKE 1 TABLET BY MOUTH 3 TIMES A DAY NEEDED FOR 28 DAYS rizatriptan (MAXALT VENEER JOINER) 10 mg disintegrating tablet Take 1 tablet by mouth as needed for migraine headache (see administration instructions). May repeat in 2 hours if needed vits62/FA/om3/dha/epa ( GUMMY ORAL) Take 2 Doses by mouth once daily. Blood-Glucose Meter (ACCU-CHEK DIANNE) Test blood sugar(s) 2 times daily. Dx: Type 2 DM - Controlled E11.9 Insulin: No, Accu-check brand covered by insurance Ascorbic Acid 500 mg chew Take 1,000 mg by mouth once daily. With rosehips elderberry fruit (ELDERBERRY ORAL) Take by mouth. COMPOUNDED PRESCRIPTION 1. V44.2 Ileostomy status (HCC) (primary diagnosis) 2. 555.1 Regional enteritis of large intestine (HCC) Ileostomy Supplies. 1. Pouches, 2. Planges, 3. Felipe seals, 4. Stoma adhesive, 5. Stoma powder, 6. Skin preps, 7. Adhesive remover wipes. Dispense 1 year supplies. tiZANidine (ZANAFLEX) 4 mg tablet Take by mouth. . Takes 1 tablet at bedtime. pregabalin (LYRICA) 25 mg capsule Take 1 capsule by mouth once daily for 30 days. No current facility-administered medications for this visit. ALLERGIES Allergen Reactions Azithromycin Unknown thinks a rash Dilaudid [Hydromorp* Swelling migraines Levemir [Insulin De* Other: See Comments Urine turned dark and smelly Methadone Swelling migraine Morphine Swelling migraines Remicade [Inflixima* Intolerance, Rash broke out in blisters with the 6th dose. 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 Monica Marte [address] [place] [address], [address] [facility] [address] Bone density - next in Sep 2025 unless has surgery Thyroid nodule subcm Dr. Teresa's 2022 done for parathyroid localization Labs/Imaging/Consults/Scripts HgbA1c prior to next visit Follow-up: 6 mo Please contact me/my office: if you do not receive a note from me summarizing your lab or imaging within a week of your seeing/receiving your results. 2. sooner than the recommended follow-up if with issues/concerns. 3. If you do not see lab/imaging orders prior to your next visit Please see your primary care provider and other specialists for issues not explained by the condition you are seeing me for. Alie Stallworth APRN.LOIR May 20, 2024 All documentation from previous visit of 02/16/2024 was copied and pasted, documentation has been reviewed and edited as necessary for today's visit. Medical Decision Making: Problems: Low: Stable chronic illness Data: Unique test result(s) reviewed: 3+ Unique test(s) ordered: 1 Independent interpretation of test from other physician/QHCP Medical Decision Making Level: 3 - Low documented in this encounter [facility] 05-20-2024 Note HNO ID: [id number] Author: ALIE STALLWORTH APRN.CNP Service: ? 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 Believed to have passed the kidney stone while in the ED. Was discharged to home from the ED. STEROIDS/BONE Has ileostomy bag Has Crohn's - no steroids for this, has ileostomy Has primary hyperparathyroidism - hypercalcemia, hypercalciuria BMD done in 04/2017 showed lowest Z score -2.3 BMD in 2020 Lowest T score - 1.8 Pertinent decrease (though different machine? bone mineral density of the femoral neck is 0.635 ) 10-year Fracture Risk (FRAX): Major osteoporotic fracture risk 6.% Hip fracture risk 0.9% BUT has hyperparathyroidism Lucy discussed briefly in the past as possibility but then PTH seemed to be a player so deferred Lucy Saw Dr. Teresa 2022 for parathyroid surgery eval Patient deferred, prefers holistic approach INTERVAL HISTORY History of relatedmedications: Metformin started first Januvia started 2011 Glyburide caused lows 50s Lantus Januvia 50 mg daily - stopped when Trulicity started Nov 2018 Trulicity 1.5 mg, mild abd discomfort after eating Farxiga 5 mg - getting yeast infections, stopped Was on atorvastatin, stopped, wanting to go holistic Red yeast rice - stopped Metformin 1000 mg BID - she wanted to come off this and was able Lantus - 25 units morning - just started last night since she received steroid injection yesterday Current related medications: Ozempic 2 mg weekly - not taking regularly Calcium intake in diet/supplements: takes nutritional shake, yogurt, cheese Vitamin D intake: has supplements from holistic provider IUD Mirena 2022 last insertion Supplements from holistic provider Fernando Gianfranco 3 steroid injections to neck (C3) and back L4, L5, S1, S5 - less often now, local pain med doctor at [place], patient not yet wanting second opinion. last injection was on February 14. This has caused her blood sugar to increase, she has started taking the lantus 25 units at bedtime which seems to help. 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 FamHx: Neg thyroid CA Crohn's - cousins pat DM - grandparents HTN- mother CAD- maternal grandma REVIEW OF SYSTEMS Answers submitted by the patient for this visit: Core Review of Systems (Submitted on 05/20/2024) Fever : No Nasal Congestion: No Hearing Loss: No Vision Disturbance: No A cough: No Chest pain: No Irregular heartbeat: No Leg Swelling: No Nausea: No Diarrhea: Yes Black tarry stools: No Difficulty Urinating?: No Awaken at Night More Than Once to Urinate?: Yes Joint pain or stiffness: Yes Muscle aches: Yes Leg or Foot Discomfort at Night?: No A rash: Yes Dizziness: No Headaches: Yes Memory Loss: No Seizures: No PHYSICAL EXAMINATION BP 129/71 Pulse 70 Wt 71.2 kg (157 lb) LMP 07/25/2018 BMI 31.71 kg/m? Body mass index is 31.71 kg/m?. GENERAL: not in distress, well-appearing HEENT: anicteric sclerae, non-injected conjunctivae MUSCULOSKELETAL: no gross deformities, no fasciculations SKIN: dry, no cyanosis NEUROLOGIC: alert, oriented LABS REVIEWED Latest Ref Rng 08/14/2023 11/14/2023 02/16/2024 05/06/2024 05/15/2024 05/20/2024 Glucose 74 - 99 mg/dL 237 (H) BUN 7 - 21 mg/dL 12 Creatinine 0.58 - 0.96 mg/dL 0.62 Sodium 136 - 144 mmol/L 138 Potassium 3.7 - 5.1 mmol/L 4.4 Chloride 98 - 107 mmol/L 102 CO2 22 - 30 mmol/L 23 Anion Gap 8 - 15 mmol/L 13 Calcium 8.5 - 10.2 mg/dL 10.7 (H) eGFR >=60 mL/min/1.73m? 109 Cholesterol, Total <200 mg/dL 217 (H) Triglyceride <150 mg/dL 167 (H) HDL Cholesterol >39 mg/dL 50 Non HDL Cholesterol <130 mg/dL 167 (H) Fasting Time hrs 12 VLDL Cholesterol <30 mg/dL 33 (H) TC:HDL Ratio <5.10 4.34 LDL Cholesterol <100 mg/dL 134 (H) LDL:HDL Ratio <2.54 2.68 (H) Creat (more content not included)... [facility] 05-20-2024 Instructions Alie Stallworth APRN.CNP - 05/20/2024 9:55 AM EDT Decrease Ozempic to 1mg Gianfranco 3 Follow up in 6 months Have your labs drawn prior to your next visit Thank you for seeing me today, Alie Stallworth APRN.LORI Thank you for choosing the [facility] Department of Endocrinology, Diabetes and Metabolism. Did you know that you need to call 48 hours in advance of your scheduled visit, if you are unable to make your appointment? The Endocrinology and Metabolism [facility] thanks you for your commitment, because patients not showing to their appointment results in a lost opportunity for patients to receive [facility] health care at the [facility]. To Cancel an appointment, please choose one of the following: - Call the Appointment Call Center at [phone] - From [employer], Go to Appointments - Cancel Appts If cancelling, consider your need to reschedule to prevent further delays in your care. To Schedule an appointment, please choose one of the following: - Call the Appointment Call Center at [phone] - From [employer], Go to Appointments - Request an Appt documented in this encounter [facility] 05-20-2024 Note HNO ID: [id number] Author: SARA CURRIE, ? Service: ? 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 documented in this encounter [facility] 05-15-2024 Instructions Samy Barragan PA-C - 05/15/2024 1:29 PM EDT - Please follow up in about 6 weeks with LL, labs, and US beforehand documented in this encounter [facility] 05-15-2024 History of Present illness Narrative UROLOGY NOTE Chief complaint: kidney stones Sid Lezama is a 48 year old female who presents today for kidney stone management and prevention counseling. Patient presented to ED on 05/06/24 due to left flank pain consistent with previous kidney stone pain. CT from earlier ED visit in January showed L renal stone, so treated as migrating stone. Finished the prescribed Flomax. Crohn's and ileostomy. Does not take calcium. Pt currently: no fever, no chills, no nausea, no vomiting, no dysuria, no gross hematuria, no renal colic There is no height or weight on file to calculate BMI. 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 Lumbago 01/10/2007 Myalgia and myositis, unspecified Pain management Dr Stern Nonalcoholic fatty liver disease 08/24/2007 Other and unspecified hyperlipidemia 01/10/2007 PMH - PAST MEDICAL HISTORY OF Cx scarred to post vag wall/difficult exam Pneumonia, organism unspecified(486) 01/10/2007 Regional enteritis of large intestine (HCC) 08/07/2006 Retention of urine, unspecified 01/01/2007 Rheumatoid arthritis(714.0) Dr. Mc, [facility] Type II or unspecified type diabetes mellitus without mention of complication, not stated as uncontrolled Ureterolithiasis 07/18/2019 PAST SURGICAL HISTORY Procedure Laterality Date ADENOIDECTOMY PRIMARY <AGE 11 1986 Adenoidectomy ARTHROSCOPY KNEE DIAGNOSTIC W/WO SYNOVIAL BX SPX 1989 Arthroscopy, knee, left [facility] INCL FLUOR GDNCE DX W/CELL WASHG SPX 01/2007 Bronchoscopy EGD 05/02/2023 EPIDURAL 2011 multiple ones done by Dr. Beckett ILEOSCOPY 05/02/2023 PAST SURGICAL HISTORY OF 06/2000 ILEOSTOMY/COLECTOMY PAST SURGICAL HISTORY OF 1993 CRYOCAUTERY/ MILD DYSPLASIA PAST SURGICAL HISTORY OF 03/2006 Abdominal abscess with anal fistula PRCTECT COMPL W/STOT/TOT COLCT W/VENEER JOINER BXS 12/05/2006 AP endoanal proctectomy SHOULDER ARTHROSCOPY/SURGERY Left 05/06/2020 Rotator cuff debridement, subacromial decompression/arthroplasty TONSILLECTOMY PRIMARY/SECONDARY <AGE 11 1986 Tonsillectomy Family History Problem Relation Age of Onset Alcohol/Drug Mother Hypertension Mother COPD other (vascular disease) Mother other (sleep apnea) Mother other (heart murmur) Mother Alcohol/Drug Father Cancer Father liver Asthma Brother Hypertension Daughter Diabetes Maternal Grandmother Stroke Maternal Grandmother Heart Maternal Grandmother Emphysema Paternal Grandmother Diabetes Paternal Grandfather Macular Degen Paternal Grandfather Anesthesia Problems No Family History Social History Tobacco Use Smoking status: Former Packs/day: 1.00 Years: 16.00 Additional pack years: 0.00 Total pack years: 16.00 Types: Cigarettes Quit date: 12/04/2006 Years since quittin.4 Smokeless tobacco: Never Vaping Use Vaping Use: Never used Substance Use Topics Alcohol use: No Drug use: No Current Outpatient Medications on File Prior to Visit Medication Sig Lancets (ACCU-CHEK FASTCLIX LANCET DRUM) Use as instructed to check blood glucose up to 2 times daily. E11.9 GVOKE PFS 1-PACK SYRINGE 1 mg/0.2 mL syrg INJECT 0.2 ML UNDER THE SKIN NEEDED. insulin glargine (LANTUS SOLOSTAR U-100 INSULIN) 100 unit/mL (3 mL) INJECT 25 UNITS UNDER THE SKIN bedtime semaglutide (OZEMPIC) 1 mg/dose (4 mg/3 mL) pen Inject 1 mg subcutaneously one time a week. Patient should start on May 13, 2024. Blood-Glucose Sensor (Encore InteractiveSTYLE GIANFRANCO 3 SENSOR) matilda Apply new sensor every fourteen (14) days to upper arm. E11.9 blood sugar diagnostic (ACCU-CHEK GUIDE TEST STRIPS) test strip Use with blood glucose test three times a day. E11.9 Blood-Glucose Meter,Continuous (FREESTYLE GIANFRANCO 3 READER) [facility] Use to check blood sugar at least four (4) times daily. pantoprazole DR (PROTONIX) 20 mg tablet Take 1 tablet by mouth daily before breakfast. Take on empty stomach, 1/2 hr before meal. Insulin Lynch, Disposable, (DROPLET PEN NEEDLE) 32 gauge x 5/32 INJECT ONE TIME DAILY ustekinumab (STELARA) 45 mg/0.5 mL sub-Q syringe Inject 45 mg (1 syringe) subcutaneously every 12 weeks clobetasol (TEMOVATE) 0.05 % ointment Apply to affected area two times a day. Face. Feet. Two weeks on and two weeks off, per [facility] D[facility]. fexofenadine HCl (LELA ORAL) Take by mouth. levonorgestrel (MIRENA) 20 mcg/24 hours (8 yrs) 52 mg IUD 1 Each by INTRAUTERINE route as directed. oxyCODONE-acetaminophen (PERCOCET) 5-325 mg tablet TAKE 1 TABLET BY MOUTH 3 TIMES A DAY NEEDED FOR 28 DAYS rizatriptan (MAXALT VENEER JOINER) 10 mg disintegrating tablet Take 1 tablet by mouth as needed for migraine headache (see administration instructions). May repeat in 2 hours if needed vits62/FA/om3/dha/epa ( GUMMY ORAL) Take 2 Doses by mouth once daily. Blood-Glucose Meter (ACCU-CHEK DIANNE) Test blood sugar(s) 2 times daily. Dx: Type 2 DM - Controlled E11.9 Insulin: No, Accu-check brand covered by insurance Ascorbic Acid 500 mg chew Take 1,000 mg by mouth once daily. With rosehips elderberry fruit (ELDERBERRY ORAL) Take by mouth. COMPOUNDED PRESCRIPTION 1. V44.2 Ileostomy status (HCC) (primary diagnosis) 2. 555.1 Regional enteritis of large intestine (HCC) Ileostomy Supplies. 1. Pouches, 2. Planges, 3. Felipe seals, 4. Stoma adhesive, 5. Stoma powder, 6. Skin preps, 7. Adhesive remover wipes. Dispense 1 year supplies. tiZANidine (ZANAFLEX) 4 mg tablet Take by mouth. . Takes 1 tablet at bedtime. tamsulosin (FLOMAX) 0.4 mg Take 1 capsule by mouth daily at bedtime for 7 days. Lancing Device with Lancets ACCU CHEK FASTCLIX LANCET *DEVICE* use to check blood glucose up to 2 times per day as instructed. E11.9 Cholecalciferol, Vitamin D3, 50 mcg (2,000 unit) cap DAILY mecobalamin, vitamin B12, 1,000 mcg ODT DAILY pregabalin (LYRICA) 25 mg capsule Take 1 capsule by mouth once daily for 30 days. No current facility-administered medications on file prior to visit. ALLERGIES Allergen Reactions Azithromycin Unknown thinks a rash Dilaudid [Hydromorp* Swelling migraines Levemir [Insulin De* Other: See Comments Urine turned dark and smelly Methadone Swelling migraine Morphine Swelling migraines Remicade [Inflixima* Intolerance, Rash broke out in blisters with the 6th dose. Ultram [Tramadol Hc* Swelling migraines Admission on 05/06/2024, Discharged on 05/06/2024 Component Date Value Ref Range Status Glucose 05/06/2024 237 (H) 74 - 99 mg/dL Final The [place] [employer] (ADA) provides guidance for cutoff values for fasting glucose and random glucose. The ADA defines fasting as no caloric intake for at least 8 hours. Fasting plasma glucose results between 100 to 125 [...] Standards of Medical Care in Diabetes 2016, [place] [employer]. Diabetes Care. 2016.39(Suppl 1). BUN 05/06/2024 12 7 - 21 mg/dL Final Creatinine 05/06/2024 0.62 0.58 - 0.96 mg/dL Final Sodium 05/06/2024 138 136 - 144 mmol/L Final Potassium 05/06/2024 4.4 3.7 - 5.1 mmol/L Final Chloride 05/06/2024 102 98 - 107 mmol/L Final CO2 05/06/2024 23 22 - 30 mmol/L Final Anion Gap 05/06/2024 13 8 - 15 mmol/L Final Calcium, Total 05/06/2024 10.7 (H) 8.5 - 10.2 mg/dL Final Estimated Glomerular Filtration Ra* 05/06/2024 109 >=60 mL/min/1.73m Final Estimated Glomerular Filtration Rate (eGFR) is calculated using the 2020 CKD-EPI creatinine equation. This equation utilizes serum creatinine, sex, and age as parameters. The creatinine assay has traceable calibration to isotope dilution-mass spectrometry. Refer to KDIGO guidelines for clinical interpretation. In patients with unstable renal function, e.g. those with acute kidney injury, the eGFR may not accurately reflect actual GFR. WBC 05/06/2024 10.14 3.70 - 11.00 k/uL Final RBC 05/06/2024 5.16 3.90 - 5.20 m/uL Final Hemoglobin 05/06/2024 15.2 11.5 - 15.5 g/dL Final Hematocrit 05/06/2024 44.8 36.0 - 46.0 % Final MCV 05/06/2024 86.8 80.0 - 100.0 fL Final MCH 05/06/2024 29.5 26.0 - 34.0 pg Final MCHC 05/06/2024 33.9 30.5 - 36.0 g/dL Final RDW-CV 05/06/2024 12.3 11.5 - 15.0 % Final Platelet Count 05/06/2024 226 150 - 400 k/uL Final MPV 05/06/2024 10.5 9.0 - 12.7 fL Final Neutrophils % 05/06/2024 86.7 % Final Abs Neut 05/06/2024 8.80 (H) 1.45 - 7.50 k/uL Final Lymphocytes % 05/06/2024 10.2 % Final Abs Lymph 05/06/2024 1.03 1.00 - 4.00 k/uL Final Monocytes % 05/06/2024 2.4 % Final Abs [place] 05/06/2024 0.24 <0.87 k/uL Final Eosinophils % 05/06/2024 0.1 % Final Abs Eosin 05/06/2024 <0.03 <0.46 k/uL Final Basophils % 05/06/2024 0.5 % Final Abs Baso 05/06/2024 0.05 <0.11 k/uL Final Immature Granulocytes % 05/06/2024 0.1 % Final Abs Immature Gran 05/06/2024 <0.03 <0.10 k/uL Final Diff Type 05/06/2024 Auto Final Color 05/06/2024 Yellow Yellow Final Clarity 05/06/2024 Slightly Cloudy (A) Clear Final Glucose, Urine 05/06/2024 2+ (A) Negative Final Bilirubin, Urine 05/06/2024 Negative Negative Final Ketones, Urine 05/06/2024 2+ (A) Negative Final Specific [place], Ur 05/06/2024 1.020 1.005 - 1.030 Final Hemoglobin/Blood,Ur 05/06/2024 2+ (A) Negative Final pH, Urine 05/06/2024 6.0 5.0 - 8.0 Final Protein, Urine 05/06/2024 Negative Negative Final Urobilinogen 05/06/2024 0.2 EU/dL 0.2-1.0 EU/dL Final Nitrites 05/06/2024 Negative Negative Final Leuk Esterase 05/06/2024 Negative Negative Final WBC, Urine 05/06/2024 0-5 /HPF 0-5 /HPF Final RBC, Urine 05/06/2024 >25 /HPF (A) 0-3 /HPF Final Squamous Epithelial Cells 05/06/2024 Few /HPF Final Urinalysis: Latest Ref Rng 05/15/2024 GLUCOSE UA (POCT) Negative mg/dL 100 ! BILIRUBIN UA (POCT) Negative Negative KETONE UA (POCT) Negative mg/dL Negative SPECIFIC GRAVITY UA (POCT) 1.005 - 1.030 1.015 HEMOGLOBIN/BLOOD UA (POCT) Negative Negative PH UA (POCT) 4.5 - 8.0 6.5 PROTEIN UA (POCT) Negative mg/dL Negative UROBILINOGEN UA (POCT) Normal E.U./dL 0.2 NITRITE UA (POCT) Negative Negative LEUKOCYTES UA (POCT) Negative Negative COLOR UA (POCT) Yellow CLARITY UA (POCT) Clear Images: No recent urological imaging Stone Panel/ Litholink: tbd Assessment/Plan: Encounter Diagnosis ICD-10-CM 1. Nephrolithiasis N20.0 CALCIUM, IONIZED PTH INTACT VITAMIN D 25 HYDROXY URIC ACID US KIDNEY/BLADDER LITHOLINK 24HR URINE PANEL 2. Screening for genitourinary condition Z13.89 UA DIP, URINE (POC) - New US ordered to assess for current stone(s) burden / passage - Patient is interested in 24-hour urine collection and dietary analysis for stone prevention. Litholink kit to be sent to and completed by patient. - Metabolic lab work ordered to assess underlying stone and/or hypercalcinuria etiologies. RTC in 1.5 months w/ new LL, labs, and US. Samy Barragan PA-C documented in this encounter [facility] 05-09-2024 Telephone encounter Note Patient calls to report that she continues to have bladder spasms. Patient prescribed Flomax in ER and hasn't helped yet. Offered to schedule ER follow up. Patient declined since following up with urology. Patient will call back with further concerns. Jagruti Crawley RN [facility] 05-09-2024 Miscellaneous Notes Patient calls to report that she continues to have bladder spasms. Patient prescribed Flomax in ER and hasn't helped yet. Offered to schedule ER follow up. Patient declined since following up with urology. Patient will call back with further concerns. Jagruti Crawley RN documented in this encounter [facility] 05-08-2024 Note Addended by: PANDA HARRISON on: 05/08/2024 04:14 PM Modules accepted: Orders [facility] 05-08-2024 Miscellaneous Notes Addended by: PANDA HARRISON on: 05/08/2024 04:14 PM Modules accepted: Orders Called [facility] pharmacy; spoke with director state pharmacy. Pt. Was sent soft click accu-chek lancet and lancing device. They were basing it on the fact that patient has accu chek guide glucometer per their records. That was shipped on April. Delivery date May 02. Thanks, IRIENO Stahl RN [facility] documented in this encounter [facility] 05-08-2024 Telephone encounter Note Called [facility] pharmacy; spoke with director state pharmacy. Pt. Was sent soft click accu-chek lancet and lancing device. They were basing it on the fact that patient has accu chek guide glucometer per their records. That was shipped on April. Delivery date May 02. Marley Holley BSN RN [facility] 04-25-2024 Telephone encounter Note Requester: Pharmacy DUPLICATE Patients last Endocrinology visit occurred 02/16/24. Follow-up evaluation has been established Upcoming Endocrinology Appointments - Next 365 Days Visit Type Date Time Department EST NANETTE PATIENT 05/20/2024 10:00 AM ENDO MAIN . Requested Prescriptions Pending Prescriptions Disp Refills Lancets (ACCU-CHEK FASTCLIX LANCET DRUM) 200 Each 3 Sig: Use as instructed to check blood glucose up to 2 times daily. E11.9 If patient is due for an appointment please route to provider for refill consideration and also to the endo scheduling pool. PSS NOTE: Patient needs scheduled appointment No [facility] 04-25-2024 Miscellaneous Notes Requester: Pharmacy DUPLICATE Patients last Endocrinology visit occurred 02/16/24. Follow-up evaluation has been established Upcoming Endocrinology Appointments - Next 365 Days Visit Type Date Time Department EST NANETTE PATIENT 05/20/2024 10:00 AM ENDO MAIN . Requested Prescriptions Pending Prescriptions Disp Refills Lancets (ACCU-CHEK FASTCLIX LANCET DRUM) 200 Each 3 Sig: Use as instructed to check blood glucose up to 2 times daily. E11.9 If patient is due for an appointment please route to provider for refill consideration and also to the endo scheduling pool. PSS NOTE: Patient needs scheduled appointment No documented in this encounter [facility] 04-25-2024 Telephone encounter Note Requester: Pharmacy Patients last Endocrinology visit occurred 02/16/24. Follow-up evaluation has been established Upcoming Endocrinology Appointments - Next 365 Days Visit Type Date Time Department EST NANETTE PATIENT 05/20/2024 10:00 AM ENDO MAIN . Requested Prescriptions Pending Prescriptions Disp Refills Lancing Device with Lancets 1 Each 11 Sig: ACCU CHEK FASTCLIX LANCET *DEVICE* use to check blood glucose up to 2 times per day as instructed. E11.9 If patient is due for an appointment please route to provider for refill consideration and also to the endo scheduling pool. PSS NOTE: Patient needs scheduled appointment No [facility] 04-25-2024 Miscellaneous Notes Requester: Pharmacy Patients last Endocrinology visit occurred 02/16/24. Follow-up evaluation has been established Upcoming Endocrinology Appointments - Next 365 Days Visit Type Date Time Department EST NANETTE PATIENT 05/20/2024 10:00 AM ENDO MAIN . Requested Prescriptions Pending Prescriptions Disp Refills Lancing Device with Lancets 1 Each 11 Sig: ACCU CHEK FASTCLIX LANCET *DEVICE* use to check blood glucose up to 2 times per day as instructed. E11.9 If patient is due for an appointment please route to provider for refill consideration and also to the endo scheduling pool. PSS NOTE: Patient needs scheduled appointment No documented in this encounter [facility] 04-11-2024 Telephone encounter Note Received a CGM with Physician's Order form from [facility] for patient's CGM supplies. Completed clerical portion of the form and submitted to the in-sergeant of officers to print for provider to complete, review, and sign. MARA VELASQUEZ Chief Service Observer Endocrinology & Metabolism [facility] X-20 [facility] 04-11-2024 Miscellaneous Notes Received a CGM with Physician's Order form from [facility] for patient's CGM supplies. Completed clerical portion of the form and submitted to the in-sergeant of officers to print for provider to complete, review, and sign. MARA VELASQUEZ Chief Service Observer Endocrinology & Metabolism [facility] X-20 documented in this encounter [facility] 03-22-2024 Telephone encounter Note The patient has some concerns about ozempic 1mg. The patient was told that she could not get ozempic 1 mg until June 02. The patient would like to start the ozempic 1 mg now. The patient stated that she has been experiencing crashing with her blood sugars on the two Please contact the patient by the phone number listed. Cici Chen Chief Service Observer Endocrinology & Metabolism [facility] F20-X [facility] 03-22-2024 Miscellaneous Notes The patient has some concerns about ozempic 1mg. The patient was told that she could not get ozempic 1 mg until June 02. The patient would like to start the ozempic 1 mg now. The patient stated that she has been experiencing crashing with her blood sugars on the two Please contact the patient by the phone number listed. Cici Chen Chief Service Observer II Endocrinology & Metabolism [facility] F20-X documented in this encounter [facility] 03-15-2024 History of Present illness Narrative [facility] Refill Assessment Medication(s): Stelara Patient's current medication list and adherence status to current therapy were reviewed by Specialty Pharmacy clinical pharmacist to identify any new drug interactions or non-compliance to therapy. Therapy continues to be appropriate for disease, patient response, and medical condition. Verification of therapeutic benefit and effectiveness with current therapy was completed. Adverse events, barriers in adherence, and side effects were assessed and addressed if applicable. Will proceed with refill with no changes in therapy - patient progressing towards achieving therapeutic goals based on medication-specific laboratory parameters, disease state markers and outcomes. Ustekinumab (Stelara) - IL-12/23 Inhibitor CBC with differential (baseline); complete metabolic panel (baseline); tuberculosis (TB) screening prior to initiating and during therapy (chest X-ray if TB positive); hepatitis C virus/hepatitis B virus (HBV) screening prior to initiating (all patients), HBV carriers (during and for several months following therapy); HIV screening (baseline) (AAD/NPF [Menter 2019]); monitor for signs/symptoms of infection, posterior reversible encephalopathy syndrome, and squamous cell skin carcinoma. CBC with differential: WBC Date Value Ref Range Status 08/14/2023 4.95 3.70 - 11.00 k/uL Final RBC Date Value Ref Range Status 08/14/2023 5.23 (H) 3.90 - 5.20 m/uL Final Hemoglobin Date Value Ref Range Status 08/14/2023 15.1 11.5 - 15.5 g/dL Final Hematocrit Date Value Ref Range Status 08/14/2023 44.9 36.0 - 46.0 % Final MCV Date Value Ref Range Status 08/14/2023 85.9 80.0 - 100.0 fL Final MCH Date Value Ref Range Status 08/14/2023 28.9 26.0 - 34.0 pg Final MCHC Date Value Ref Range Status 08/14/2023 33.6 30.5 - 36.0 g/dL Final RDW-CV Date Value Ref Range Status 08/14/2023 12.8 11.5 - 15.0 % Final Platelet Count Date Value Ref Range Status 08/14/2023 241 150 - 400 k/uL Final MPV Date Value Ref Range Status 08/14/2023 11.2 9.0 - 12.7 fL Final Neutrophils % Date Value Ref Range Status 08/14/2023 41.2 % Final Lymphocytes % Date Value Ref Range Status 08/14/2023 45.7 % Final Monocytes % Date Value Ref Range Status 08/14/2023 8.1 % Final Eosinophils % Date Value Ref Range Status 08/14/2023 3.6 % Final Basophils % Date Value Ref Range Status 08/14/2023 1.0 % Final Abs Neut Date Value Ref Range Status 08/14/2023 2.04 1.45 - 7.50 k/uL Final Abs [place] Date Value Ref Range Status 08/14/2023 0.40 <0.87 k/uL Final Abs Eosin Date Value Ref Range Status 08/14/2023 0.18 <0.46 k/uL Final Abs Baso Date Value Ref Range Status 08/14/2023 0.05 <0.11 k/uL Final CMP: Albumin Date Value Ref Range Status 08/14/2023 4.2 3.9 - 4.9 g/dL Final Calcium, Total Date Value Ref Range Status 08/14/2023 10.1 8.5 - 10.2 mg/dL Final Bilirubin, Total Date Value Ref Range Status 12/15/2022 0.6 0.2 - 1.3 mg/dL Final Alkaline Phosphatase Date Value Ref Range Status 12/20/2022 107 34 - 123 U/L Final AST Date Value Ref Range Status 08/14/2023 21 13 - 35 U/L Final ALT Date Value Ref Range Status 08/14/2023 29 7 - 38 U/L Final Glucose Date Value Ref Range Status 08/14/2023 156 (H) 74 - 99 mg/dL Final Comment: The [place] [employer] (ADA) provides guidance for cutoff values for fasting glucose and random glucose. The ADA defines fasting as no caloric intake for at least 8 hours. Fasting plasma glucose results between 100 to 125 [...] Standards of Medical Care in Diabetes 2016, [place] [employer]. Diabetes Care. 2016.39(Suppl 1). BUN Date Value Ref Range Status 08/14/2023 7 7 - 21 mg/dL Final Creatinine Date Value Ref Range Status 08/14/2023 0.69 0.58 - 0.96 mg/dL Final Sodium Date Value Ref Range Status 08/14/2023 140 136 - 144 mmol/L Final Potassium Date Value Ref Range Status 08/14/2023 4.4 3.7 - 5.1 mmol/L Final Chloride Date Value Ref Range Status 08/14/2023 103 97 - 105 mmol/L Final CO2 Date Value Ref Range Status 08/14/2023 22 22 - 30 mmol/L Final Anion Gap Date Value Ref Range Status 08/14/2023 15 9 - 18 mmol/L Final eGFR- Date Value Ref Range Status 12/21/2021 >60 Final Estimated Glomerular Filtration Rate Date Value Ref Range Status 08/14/2023 107 >=60 mL/min/1.73m Final Comment: Estimated Glomerular Filtration Rate (eGFR) is calculated using the 2020 CKD-EPI creatinine equation. This equation utilizes serum creatinine, sex, and age as parameters. The creatinine assay has traceable calibration to isotope dilution-mass spectrometry. Refer to KDIGO guidelines for clinical interpretation. In patients with unstable renal function, e.g. those with acute kidney injury, the eGFR may not accurately reflect actual GFR. HBsAg Date Value Ref Range Status 06/18/2021 Negative Negative Final Hep B Surface Ab, Qual Date Value Ref Range Status 04/19/2022 Negative Negative Final Comment: No evidence of current or past infection with Hepatitis B virus. Should recent infection be suspected, repeat testing may be considered 3-4 weeks after this draw. Hepatitis B Core Ab, Total Date Value Ref Range Status 04/19/2022 Negative Negative Final Comment: No evidence of current or past infection with Hepatitis B virus. Should recent infection be suspected, repeat testing may be considered 3-4 weeks after this draw. Hep C Antibody IA Date Value Ref Range Status 04/19/2022 Negative Negative Final Comment: The result suggests no evidence of active infection with Hepatitis C virus. Should recent infection be suspected, repeat testing may be considered 4-6 weeks after this draw. TB Result Date Value Ref Range Status 04/19/2022 Negative Final No results found for: HIV1AB Current Outpatient Medications on File Prior to Visit Medication Sig GVOKE PFS 1-PACK SYRINGE 1 mg/0.2 mL syrg INJECT 0.2 ML UNDER THE SKIN NEEDED. Cholecalciferol, Vitamin D3, 50 mcg (2,000 unit) cap DAILY mecobalamin, vitamin B12, 1,000 mcg ODT DAILY insulin glargine (LANTUS SOLOSTAR U-100 INSULIN) 100 unit/mL (3 mL) INJECT 25 UNITS UNDER THE SKIN bedtime [START ON 05/13/2024] semaglutide (OZEMPIC) 1 mg/dose (4 mg/3 mL) pen Inject 1 mg subcutaneously one time a week. Patient should start on May 13, 2024. Blood-Glucose Sensor (FREESTYLE GIANFRANCO 3 SENSOR) matilda Apply new sensor every fourteen (14) days to upper arm. E11.9 blood sugar diagnostic (ACCU-CHEK GUIDE TEST STRIPS) test strip Use with blood glucose test three times a day. E11.9 Blood-Glucose Meter,Continuous (FREESTYLE GIANFRANCO 3 READER) [facility] [place] Use to check blood sugar at least four (4) times daily. pantoprazole DR (PROTONIX) 20 mg tablet Take 1 tablet by mouth daily before breakfast. Take on empty stomach, 1/2 hr before meal. pregabalin (LYRICA) 25 mg capsule Take 1 capsule by mouth once daily for 30 days. Insulin Lynch, Disposable, (DROPLET PEN NEEDLE) 32 gauge x 5/32 INJECT ONE TIME DAILY ustekinumab (STELARA) 45 mg/0.5 mL sub-Q syringe Inject 45 mg (1 syringe) subcutaneously every 12 weeks clobetasol (TEMOVATE) 0.05 % ointment Apply to affected area two times a day. Face. Feet. Two weeks on and two weeks off, per [facility] Dermatology. fexofenadine HCl (LELA ORAL) Take by mouth. levonorgestrel (MIRENA) 20 mcg/24 hours (8 yrs) 52 mg IUD 1 Each by INTRAUTERINE route as directed. Lancing Device with Lancets ACCU CHEK FASTCLIX LANCET *DEVICE* use to check blood glucose up to 2 times per day as instructed. E11.9 Lancets (ACCU-CHEK FASTCLIX LANCET DRUM) lancets Use as instructed to check blood glucose up to 2 times daily. E11.9 oxyCODONE-acetaminophen (PERCOCET) 5-325 mg tablet TAKE 1 TABLET BY MOUTH 3 TIMES A DAY NEEDED FOR 28 DAYS rizatriptan (MAXALT VENEER JOINER) 10 mg disintegrating tablet Take 1 tablet by mouth as needed for migraine headache (see administration instructions). May repeat in 2 hours if needed vits62/FA/om3/dha/epa ( GUMMY ORAL) Take 2 Doses by mouth once daily. Blood-Glucose Meter (ACCU-CHEK DIANNE) Test blood sugar(s) 2 times daily. Dx: Type 2 DM - Controlled E11.9 Insulin: No, Accu-check brand covered by insurance Ascorbic Acid 500 mg chew Take 1,000 mg by mouth once daily. With rosehips elderberry fruit (ELDERBERRY ORAL) Take by mouth. COMPOUNDED PRESCRIPTION 1. V44.2 Ileostomy status ([facility]) (primary diagnosis) 2. 555.1 Regional enteritis of large intestine ([facility]) Ileostomy Supplies. 1. Pouches, 2. Planges, 3. Felipe seals, 4. Stoma adhesive, 5. Stoma powder, 6. Skin preps, 7. Adhesive remover wipes. Dispense 1 year supplies. tiZANidine (ZANAFLEX) 4 mg tablet Take by mouth. . Takes 1 tablet at bedtime. No current facility-administered medications on file prior to visit. ALLERGIES Allergen Reactions Azithromycin Unknown thinks a rash Dilaudid [Hydromorp* Swelling migraines Levemir [Insulin De* Other: See Comments Urine turned dark and smelly Methadone Swelling migraine Morphine Swelling migraines Remicade [Inflixima* Intolerance, Rash broke out in blisters with the 6th dose. Ultram [Tramadol Hc* Swelling migraines Canceled Appointments: Future Appointments Date Time Provider Department Center 05/20/2024 10:00 AM Alie Stallworth, PERMIT TECHNICIAN.[facility] 06/06/2024 11:00 AM Pharmacist, [facility] 2 [facility] None 06/07/2024 1:00 PM Steve Juarez, PERMIT TECHNICIAN.[facility] 07/25/2024 10:40 AM Grayson Phan MD [facility] 10/25/2024 10:00 AM Steve Juarez, PERMIT TECHNICIAN.[facility] 03/24/2025 10:00 AM Scott Gold MD [facility] 08/25/2025 10:00 AM Steve Juarez, PERMIT TECHNICIAN.[facility] [place] [facility] Clinical Pharmacist - Biologics: Allergy, Immunology, and Inflammatory [facility] ; Pool: [facility] Pool #: [id number] Feeder Operator Assessment Patient confirmed: Yes Med/dose confirmed: Yes Supplies needed: No supplies needed Missed doses: No Estimated days supply on hand: 0 Next cycle/dose due: 03/25/24 Copay amount: 0 Payment confirmed: Yes Delivery method: FedEx Signature required: Waived on patient request Delivery address: [address] [place] [address] Delivery date: 03/20/24 Questions or concerns for the pharmacist?: No Current Outpatient Medications on File Prior to Visit Medication Sig GVOKE PFS 1-PACK SYRINGE 1 mg/0.2 mL syrg INJECT 0.2 ML UNDER THE SKIN NEEDED. Cholecalciferol, Vitamin D3, 50 mcg (2,000 unit) cap DAILY mecobalamin, vitamin B12, 1,000 mcg ODT DAILY insulin glargine (LANTUS SOLOSTAR U-100 INSULIN) 100 unit/mL (3 mL) INJECT 25 UNITS UNDER THE SKIN bedtime [START ON 05/13/2024] semaglutide (OZEMPIC) 1 mg/dose (4 mg/3 mL) pen Inject 1 mg subcutaneously one time a week. Patient should start on May 13, 2024. Blood-Glucose Sensor (FREESTYLE GIANFRANCO 3 SENSOR) matilda Apply new sensor every fourteen (14) days to upper arm. E11.9 blood sugar diagnostic (ACCU-CHEK GUIDE TEST STRIPS) test strip Use with blood glucose test three times a day. E11.9 Blood-Glucose Meter,Continuous (FREESTYLE GIANFRANCO 3 READER) [facility] [place] Use to check blood sugar at least four (4) times daily. pantoprazole DR (PROTONIX) 20 mg tablet Take 1 tablet by mouth daily before breakfast. Take on empty stomach, 1/2 hr before meal. pregabalin (LYRICA) 25 mg capsule Take 1 capsule by mouth once daily for 30 days. Insulin Lynch, Disposable, (DROPLET PEN NEEDLE) 32 gauge x 5/32 INJECT ONE TIME DAILY ustekinumab (STELARA) 45 mg/0.5 mL sub-Q syringe Inject 45 mg (1 syringe) subcutaneously every 12 weeks clobetasol (TEMOVATE) 0.05 % ointment Apply to affected area two times a day. Face. Feet. Two weeks on and two weeks off, per [facility] D[facility]. fexofenadine HCl (LELA ORAL) Take by mouth. levonorgestrel (MIRENA) 20 mcg/24 hours (8 yrs) 52 mg IUD 1 Each by INTRAUTERINE route as directed. Lancing Device with Lancets ACCU CHEK FASTCLIX LANCET *DEVICE* use to check blood glucose up to 2 times per day as instructed. E11.9 Lancets (ACCU-CHEK FASTCLIX LANCET DRUM) lancets Use as instructed to check blood glucose up to 2 times daily. E11.9 oxyCODONE-acetaminophen (PERCOCET) 5-325 mg tablet TAKE 1 TABLET BY MOUTH 3 TIMES A DAY NEEDED FOR 28 DAYS rizatriptan (MAXALT VENEER JOINER) 10 mg disintegrating tablet Take 1 tablet by mouth as needed for migraine headache (see administration instructions). May repeat in 2 hours if needed vits62/FA/om3/dha/epa ( GUMMY ORAL) Take 2 Doses by mouth once daily. Blood-Glucose Meter (ACCU-CHEK DIANNE) Test blood sugar(s) 2 times daily. Dx: Type 2 DM - Controlled E11.9 Insulin: No, Accu-check brand covered by insurance Ascorbic Acid 500 mg chew Take 1,000 mg by mouth once daily. With rosehips elderberry fruit (ELDERBERRY ORAL) Take by mouth. COMPOUNDED PRESCRIPTION 1. V44.2 Ileostomy status (HCC) (primary diagnosis) 2. 555.1 Regional enteritis of large intestine (HCC) Ileostomy Supplies. 1. Pouches, 2. Planges, 3. Felipe seals, 4. Stoma adhesive, 5. Stoma powder, 6. Skin preps, 7. Adhesive remover wipes. Dispense 1 year supplies. tiZANidine (ZANAFLEX) 4 mg tablet Take by mouth. . Takes 1 tablet at bedtime. No current facility-administered medications on file prior to visit. [facility] Visit Assessment - Inflammatory Conditions: Assessment to use: Refill Vaccination Assessment: Date of influenza vaccination reminder: 12/22/2022 Date of most recent vaccination assessment: 12/22/2022 Treatment Plan Information: Treatment Plan Information: Seronegative spondyloarthropathy Crohn's disease with complication, unspecified gastrointestinal tract location (HCC) Osteoarthritis of spine, unspecified spinal osteoarthritis complication status, unspecified spinal region Stelara - Inject 45 mg (1 syringe) subcutaneously at weeks 0 and 4 followed by every 12 weeks thereafter. Est. Tx Plan Start Date: 12/23/2022 Estimated Treatment Duration: Until loss of efficacy and/or no longer tolerated. Refill Assessment: Concurrent med therapy and DMARD screening: Yes Assessment of injection issues: Yes Screening for infection: Yes Adverse reactions and mitigation: Yes COPD monitoring ([place]): N/A Assessment of efficacy: Yes Shira Matta CPhT, Inflammatory/Allergy [facility] [phone] documented in this encounter [facility] 03-11-2024 Telephone encounter Note Requester: Pharmacy Patients last Endocrinology visit occurred 02/16/24. Follow-up evaluation has been established Upcoming Endocrinology Appointments - Next 365 Days Visit Type Date Time Department EST NANETTE PATIENT 05/20/2024 10:00 AM ENDO MAIN . Requested Prescriptions Pending Prescriptions Disp Refills GVOKE PFS 1-PACK SYRINGE 1 mg/0.2 mL syrg [Pharmacy Med Name: GVOKE PFS 1 MG/0.2ML Solution Prefilled Syringe] 0.4 mL 11 Sig: INJECT 0.2 ML UNDER THE SKIN NEEDED. If patient is due for an appointment please route to provider for refill consideration and also to the endo scheduling pool. PSS NOTE: Patient needs scheduled appointment No [facility] 03-11-2024 Miscellaneous Notes Requester: Pharmacy Patients last Endocrinology visit occurred 02/16/24. Follow-up evaluation has been established Upcoming Endocrinology Appointments - Next 365 Days Visit Type Date Time Department EST NANETTE PATIENT 05/20/2024 10:00 AM ENDO MAIN . Requested Prescriptions Pending Prescriptions Disp Refills GVOKE PFS 1-PACK SYRINGE 1 mg/0.2 mL syrg [Pharmacy Med Name: GVOKE PFS 1 MG/0.2ML Solution Prefilled Syringe] 0.4 mL 11 Sig: INJECT 0.2 ML UNDER THE SKIN NEEDED. If patient is due for an appointment please route to provider for refill consideration and also to the endo scheduling pool. PSS NOTE: Patient needs scheduled appointment No documented in this encounter [facility] 02-16-2024 Nurse Note Pt states she had a steroid injection C3 02/15/24 documented in this encounter [facility] 02-16-2024 History of Present illness Narrative Images from the original note were not included. HISTORY Mrs Sid Lezama is a 48 year old female here for follow-up of Type 2 DM Dyslipidemia Fatty liver since 17 y/o per patient; elevated liver enzymes Steroid treatment Low bone mass Primary hyperparathyroidism - hypercalcemia, hypercalciuria DIABETES Diagnosed DM in 2006, was having reactive hypoglycemia Complications/comorbidities: retinal hole +neuropathy from cervical problems STEROIDS/BONE Has ileostomy bag Has Crohn's - no steroids for this, has ileostomy Has primary hyperparathyroidism - hypercalcemia, hypercalciuria BMD done in 04/2017 showed lowest Z score -2.3 BMD in 2020 Lowest T score - 1.8 Pertinent decrease (though different machine? bone mineral density of the femoral neck is 0.635 ) 10-year Fracture Risk (FRAX): Major osteoporotic fracture risk 6.% Hip fracture risk 0.9% BUT has hyperparathyroidism Lucy discussed briefly in the past as possibility but then PTH seemed to be a player so deferred Lucy Saw Dr. Teresa 2022 for parathyroid surgery eval Patient deferred, prefers holistic approach INTERVAL HISTORY History of relatedmedications: Metformin started first Januvia started 2011 Glyburide caused lows 50s Lantus Januvia 50 mg daily - stopped when Trulicity started Nov 2018 Trulicity 1.5 mg, mild abd discomfort after eating Farxiga 5 mg - getting yeast infections, stopped Was on atorvastatin, stopped, wanting to go holistic Red yeast rice - stopped Metformin 1000 mg BID - she wanted to come off this and was able Current related medications: Lantus - 25 units morning - just started last night since she received steroid injection yesterday Ozempic 2 mg weekly - not taking regularly Calcium intake in diet/supplements: takes nutritional shake, yogurt, cheese Vitamin D intake: has supplements from holistic provider IUD Mirena 2022 last insertion Supplements from holistic provider Fernando Medel 3 steroid injections to neck (C3) and back L4, L5, S1, S5 - less often now, local pain med doctor at [place], patient not yet wanting second opinion. last injection was on February 14. This has caused her blood sugar to increase, she has started taking the lantus 25 units at bedtime which seems to help. 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 FamHx: Neg thyroid CA Crohn's - cousins pat DM - grandparents HTN- mother CAD- maternal grandma REVIEW OF SYSTEMS Answers submitted by the patient for this visit: Endocrine Review of Systems (Submitted on 02/14/2024) Fatigue: Yes Night sweats: Yes Recent unintentional weight change: No Skin Color Changes: Yes Post-Nasal Drip: Yes Thyroid Pain (lower neck): No Trouble Swallowing: No Vision Disturbance: No Chest pain: No Leg Swelling: No Blood Clots?: No Leg Pain while walking?: Yes Difficulty Breathing?: No Heartburn: No Nausea: No Vomiting: No Diarrhea: Yes Constipation: No Abdominal pain: No Bone Pain?: Yes Muscle aches: Yes Muscle weakness: Yes Joint pain or stiffness: Yes Headaches: No Dizziness: No Numbness?: Yes Urgency to Urinate?: Yes Increased Urination: No Slow or Small Urine Stream?: No Are your menstrual cycles regular?: No Are your menstrual cycles irregular?: No Have your menstrual cycles stopped?: Yes Flushing: Yes Hot Flashes?: Yes Increased Thirst: No Change in Body Hair?: Yes Cold Intolerance: Yes Heat Intolerance: No PHYSICAL EXAMINATION BP 125/74 Pulse 75 Wt 75.3 kg (166 lb 1.6 oz) LMP 07/25/2018 BMI 32.99 kg/m Body mass index is 32.99 kg/m . GENERAL: not in distress, well-appearing HEENT: anicteric sclerae, non-injected conjunctivae MUSCULOSKELETAL: no gross deformities, no fasciculations SKIN: dry, no cyanosis NEUROLOGIC: alert, oriented LABS REVIEWED Latest Ref Rng 08/14/2023 11/14/2023 02/16/2024 Glucose 74 - 99 mg/dL 156 (H) BUN 7 - 21 mg/dL 7 Creatinine 0.58 - 0.96 mg/dL 0.69 Sodium 136 - 144 mmol/L 140 Potassium 3.7 - 5.1 mmol/L 4.4 Chloride 97 - 105 mmol/L 103 CO2 22 - 30 mmol/L 22 Anion Gap 9 - 18 mmol/L 15 Calcium 8.5 - 10.2 mg/dL 10.1 eGFR >=60 mL/min/1.73m 107 Cholesterol, Total <200 mg/dL 217 (H) Triglyceride <150 mg/dL 167 (H) HDL Cholesterol >39 mg/dL 50 Non HDL Cholesterol <130 mg/dL 167 (H) Fasting Time hrs 12 VLDL Cholesterol <30 mg/dL 33 (H) TC:HDL Ratio <5.10 4.34 LDL Cholesterol <100 mg/dL 134 (H) LDL:HDL Ratio <2.54 2.68 (H) Creatinine, Ur Random (UCRR) 20.0 - 300.0 mg/dL 256.4 Albumin, Urine Random mg/L 17.2 Albumin/Creat Ratio <30 mg/g 7 AST 13 - 35 U/L 21 ALT 7 - 38 U/L 29 Albumin 3.9 - 4.9 g/dL 4.2 Hemoglobin A1C (POCT) 4.3 - 5.6 % 7.8 ! 6.5 ! IMAGING REVIEWED BMD Sep 2023 IMPRESSION: Osteopenia in the lumbar spine and left femoral neck and left forearm Profile Saw Operator: SANTOS Transcribe Date/Time: Sep 25 2023 12:59P Dictated by : JOVANY GARCIA MD This examination was interpreted and the report reviewed and electronically signed by: JOVANY GARCIA MD on Sep 25 2023 1:06PM EST Results-Findings * * *Final Report* * * DATE OF EXAM: Sep 25 2023 10:01AM [facility] 0870 - BD DXA - FOREARM SKELETON / PROCEDURE REASON: Primary hyperparathyroidism (HCC) * * * * Physician Interpretation * * * * EXAMINATION: DXA BONE DENSITOMETRY BD DXA - AXIAL SKELETON, BD DXA - FOREARM SKELETON PATIENT DEMOGRAPHICS: Age: 47 years, Gender: Female SCANNER INFORMATION: DXA Model: [facility] [employer] C 64067 Date Scanned: 09/25/2023 10:01 AM CLINICAL HISTORY: DIAGNOSTIC Primary hyperparathyroidism (HCC) . RISK FACTORS FOR OSTEOPOROSIS AND ASSOCIATED FRACTURES REPORTED BY THIS PATIENT: Please refer to Bone Health Questionnaire in the EMR CURRENT THERAPY: Please refer to Bone Health Questionnaire in the EMR RESULTS: Lumbar spine (L1, L2, L3, L4): 0.820 g/cm2, Z-score -1.3 Lumbar spine: 2020: 0.846 g/cm2 Left Femoral Neck: 0.634 g/cm2, Z-score -1.3 Left Femoral Neck: 2020: 0.635 g/cm2 Left Total Hip: 0.852 g/cm2, Z-score -0.3 Left Total Hip: 2020: 0.894 g/cm2 Left Forearm, Distal 1/3 of Radius: 0.610 g/cm2, Z-score -0.7 CHANGE IS STATISTICALLY SIGNIFICANT IN THE SPINE OR HIP IF GREATER THAN OR EQUAL TO 0.04 g/cm2 VERTEBRAL FRACTURE ASSESSMENT Not performed. FRAX 10 Year fracture risk Major osteoporotic fracture 7.3% Hip fracture 1% Bone density 2020 LUMBAR SPINE: The bone mineral density from L1 through L4 is 0.846 grams per square centimeter which yields a T-score of -1.8. The bone mineral density previously measured 0.954 g/sq cm. LEFT HIP: The bone mineral density of the total region of the hip is 0.894 grams per square centimeter which yields a T-score of -0.4. The bone mineral density previously measured 0.909 g/sq cm. LEFT FEMORAL NECK: The bone mineral density of the femoral neck is 0.635 grams per square centimeter which yields a T-score of -1.9. The bone mineral density previously measured 0.827 g/sq cm. 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 Lumbago 01/10/2007 Myalgia and myositis, unspecified Pain management Dr Stern Nonalcoholic fatty liver disease 08/24/2007 Other and unspecified hyperlipidemia 01/10/2007 PMH - PAST MEDICAL HISTORY OF Cx scarred to post vag wall/difficult exam Pneumonia, organism unspecified(486) 01/10/2007 Regional enteritis of large intestine (HCC) 08/07/2006 Retention of urine, unspecified 01/01/2007 Rheumatoid arthritis(714.0) Dr. Mc, [facility] Type II or unspecified type diabetes mellitus without mention of complication, not stated as uncontrolled Ureterolithiasis 07/18/2019 PAST SURGICAL HISTORY Procedure Laterality Date ADENOIDECTOMY PRIMARY <AGE 11 1986 Adenoidectomy ARTHROSCOPY KNEE DIAGNOSTIC W/WO SYNOVIAL BX SPX 1989 Arthroscopy, knee, left BRNCC INCL FLUOR GDNCE DX W/CELL WASHG SPX 01/2007 Bronchoscopy EGD 05/02/2023 EPIDURAL 2011 multiple ones done by Dr. Beckett ILEOSCOPY 05/02/2023 PAST SURGICAL HISTORY OF 06/2000 ILEOSTOMY/COLECTOMY PAST SURGICAL HISTORY OF 1993 CRYOCAUTERY/ MILD DYSPLASIA PAST SURGICAL HISTORY OF 03/2006 Abdominal abscess with anal fistula PRCTECT COMPL W/STOT/TOT COLCT W/VENEER JOINER BXS 12/05/2006 AP endoanal proctectomy SHOULDER ARTHROSCOPY/SURGERY Left 05/06/2020 Rotator cuff debridement, subacromial decompression/arthroplasty TONSILLECTOMY PRIMARY/SECONDARY <AGE 11 1986 Tonsillectomy Social History Tobacco Use Smoking status: Former Packs/day: 1.00 Years: 16.00 Additional pack years: 0.00 Total pack years: 16.00 Types: Cigarettes Quit date: 12/04/2006 Years since quittin.2 Smokeless tobacco: Never Vaping Use Vaping Use: Never used Substance Use Topics Alcohol use: No Drug use: No FAMILY HISTORY Problem Relation Age of Onset Alcohol/Drug Mother Hypertension Mother COPD other (vascular disease) Mother other (sleep apnea) Mother other (heart murmur) Mother Alcohol/Drug Father Cancer Father liver Asthma Brother Hypertension Daughter Diabetes Maternal Grandmother Stroke Maternal Grandmother Heart Maternal Grandmother Emphysema Paternal Grandmother Diabetes Paternal Grandfather Macular Degen Paternal Grandfather Anesthesia Problems No Family History Current Outpatient Medications Medication Sig Cholecalciferol, Vitamin D3, 50 mcg (2,000 unit) cap DAILY mecobalamin, vitamin B12, 1,000 mcg ODT DAILY insulin glargine (LANTUS SOLOSTAR U-100 INSULIN) 100 unit/mL (3 mL) INJECT 25 UNITS UNDER THE SKIN bedtime Blood-Glucose Sensor (FREESTYLE GIANFRANCO 3 SENSOR) matilda Apply new sensor every fourteen (14) days to upper arm. E11.9 blood sugar diagnostic (ACCU-CHEK GUIDE TEST STRIPS) test strip Use with blood glucose test three times a day. E11.9 Blood-Glucose Meter,Continuous (FREESTYLE GIANFRANCO 3 READER) misc Use to check blood sugar at least four (4) times daily. pantoprazole DR (PROTONIX) 20 mg tablet Take 1 tablet by mouth daily before breakfast. Take on empty stomach, 1/2 hr before meal. pregabalin (LYRICA) 25 mg capsule Take 1 capsule by mouth once daily for 30 days. Insulin Lynch, Disposable, (DROPLET PEN NEEDLE) 32 gauge x 5/32 INJECT ONE TIME DAILY ustekinumab (STELARA) 45 mg/0.5 mL sub-Q syringe Inject 45 mg (1 syringe) subcutaneously every 12 weeks semaglutide (OZEMPIC) 2 mg/dose (8 mg/3 mL) pen injector INJECT 2MG UNDER THE SKIN ONE TIME WEEKLY clobetasol (TEMOVATE) 0.05 % ointment Apply to affected area two times a day. Face. Feet. Two weeks on and two weeks off, per [facility]. fexofenadine HCl (LELA ORAL) Take by mouth. glucagon (GVOKE) 1 mg/0.2 mL injection Inject 0.2 mL subcutaneously as needed. levonorgestrel (MIRENA) 20 mcg/24 hours (8 yrs) 52 mg IUD 1 Each by INTRAUTERINE route as directed. Lancing Device with Lancets ACCU CHEK FASTCLIX LANCET *DEVICE* use to check blood glucose up to 2 times per day as instructed. E11.9 Lancets (ACCU-CHEK FASTCLIX LANCET DRUM) lancets Use as instructed to check blood glucose up to 2 times daily. E11.9 oxyCODONE-acetaminophen (PERCOCET) 5-325 mg tablet TAKE 1 TABLET BY MOUTH 3 TIMES A DAY NEEDED FOR 28 DAYS rizatriptan (MAXALT VENEER JOINER) 10 mg disintegrating tablet Take 1 tablet by mouth as needed for migraine headache (see administration instructions). May repeat in 2 hours if needed vits62/FA/om3/dha/epa ( GUMMY ORAL) Take 2 Doses by mouth once daily. Blood-Glucose Meter (ACCU-CHEK DIANNE) Test blood sugar(s) 2 times daily. Dx: Type 2 DM - Controlled E11.9 Insulin: No, Accu-check brand covered by insurance Ascorbic Acid 500 mg chew Take 1,000 mg by mouth once daily. With rosehips elderberry fruit (ELDERBERRY ORAL) Take by mouth. COMPOUNDED PRESCRIPTION 1. V44.2 Ileostomy status (HCC) (primary diagnosis) 2. 555.1 Regional enteritis of large intestine (HCC) Ileostomy Supplies. 1. Pouches, 2. Planges, 3. Felipe seals, 4. Stoma adhesive, 5. Stoma powder, 6. Skin preps, 7. Adhesive remover wipes. Dispense 1 year supplies. tiZANidine (ZANAFLEX) 4 mg tablet Take by mouth. . Takes 1 tablet at bedtime. No current facility-administered medications for this visit. ALLERGIES Allergen Reactions Azithromycin Unknown thinks a rash Dilaudid [Hydromorp* Swelling migraines Levemir [Insulin De* Other: See Comments Urine turned dark and smelly Methadone Swelling migraine Morphine Swelling migraines Remicade [Inflixima* Intolerance, Rash broke out in blisters with the 6th dose. 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 Monica Marte [address] [place] [id number] Bone density - next in Sep 2025 unless has surgery Thyroid nodule subcm Dr. Teresa's 2022 done for parathyroid localization Labs/Imaging/Consults/Scripts (E11.65, Z79.4) Type 2 diabetes mellitus with hyperglycemia, with long-term current use of insulin (HCC) (primary encounter diagnosis) Comment: Plan: HEMOGLOBIN A1C (POC), flash glucose scanning reader (FREESTYLE GIANFRANCO 3 READER), Blood-Glucose Sensor (FREESTYLE GIANFRANCO 3 SENSOR) matilda, insulin glargine (LANTUS SOLOSTAR U-100 INSULIN) 100 unit/mL (3 mL), semaglutide (OZEMPIC) 2 mg/dose (8 mg/3 mL) pen injector Follow-up: 3 mo Please contact me/my office: if you do not receive a note from me summarizing your lab or imaging within a week of your seeing/receiving your results. 2. sooner than the recommended follow-up if with issues/concerns. 3. If you do not see lab/imaging orders prior to your next visit Please see your primary care provider and other specialists for issues not explained by the condition you are seeing me for. Alie Stallworth APRN.CNP February 16, 2024 All documentation from previous visit of 11/14/2023 was copied and pasted, documentation has been reviewed and edited as necessary for today's visit. 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 documented in this encounter [facility] 02-16-2024 Instructions Alie Stallworth APRN.CNP - 02/16/2024 9:54 AM EDT Plan to decrease you ozempic to 1mg weekly with the next refill Continue lantus 25 units at bedtime as you are with the steroid injections Follow up in 3 months Thank you for seeing me today Alie Stallworth APRN.SQL ANALYST Thank you for choosing the [facility] Department of Endocrinology, Diabetes and Metabolism. Did you know that you need to call 48 hours in advance of your scheduled visit, if you are unable to make your appointment? The Endocrinology and Metabolism [facility] thanks you for your commitment, because patients not showing to their appointment results in a lost opportunity for patients to receive [facility] health care at the [facility]. To Cancel an appointment, please choose one of the following: - Call the Appointment Call Center at [phone] - From [employer], Go to Appointments - Cancel Appts If cancelling, consider your need to reschedule to prevent further delays in your care. To Schedule an appointment, please choose one of the following: - Call the Appointment Call Center at [phone] - From [employer], Go to Appointments - Request an Appt documented in this encounter [facility] 02-02-2024 Miscellaneous Notes Images from the original note were not included. flash glucose scanning reader (FREESTYLE GIANFRANCO 3 READER) has been approved Notified patient through [employer] Yazmin Prior Applications System Analyst Endocrinology and Metabolism [facility] documented in this encounter [facility] 02-02-2024 Miscellaneous Notes Images from the original note were not included. Blood-Glucose Sensor (FREESTYLE GIANFRANCO 3 SENSOR) matilda has been approved Notified patient through [employer] Yazmin Prior Applications System Analyst Endocrinology and Metabolism [facility] documented in this encounter [facility] 02-02-2024 Miscellaneous Notes Images from the original note were not included. Initiated PA for Blood-Glucose Sensor (FREESTYLE GIANFRANCO 3 SENSOR) matilda through [employer] via [employer] CHART NOTES ATTACHED Questions completed Waiting for determination Yazmin Prior Applications System Analyst Endocrinology and Metabolism [facility] Images from the original note were not included. Initiated PA for flash glucose scanning reader (FREESTYLE GIANFRANCO 3 READER) through [employer] via [employer] Chart notes attached Questions completed Waiting for determination Yazmin Prior Applications System Analyst Endocrinology and Metabolism [facility] documented in this encounter [facility] 01-29-2024 Miscellaneous Notes Patient called in to check on the status of the pa for Freestyle Gianfranco 3 Sensor. Patient states she will be out of sensors as of . Patient would like to know her next steps. Patient can be reached via my chart. Patient provided the number for [employer] pa team [phone] Arlin Jordan Chief Service Observer [facility]-0 documented in this encounter [facility] 01-26-2024 History of Present illness Narrative [facility] Research Study IRB [id number] Translating Scientific Evidence into Practice Using Digital Medicine and Electronic Patient Reported Outcomes Primary Entry Level Electrical Engineer: MD [email or web address] IRB Approval Version: 01 SEP 2021 rev. 12 JAN 2023 Per patient request, called them to follow up in regards to sending link for body donation. This has been sent via [employer] accordingly. Additionally, patient reports they are currently not presenting with IBD related symptoms. However, they welcome outreach for the above study if this changes in the future. documented in this encounter [facility] 01-23-2024 Instructions Grayson Phan MD - 01/23/2024 9:45 AM EDT Next month, call for Lyrica 25 mg every other day for 2 weeks, then stop. documented in this encounter [facility] 01-23-2024 History of Present illness Narrative This note was created using [employer]. Subjective Sid Lezama is a 48 year old female. Fibromyalgia pain was stable with weaning down pregabalin. She noted some stiffness of right shoulder, where she had rotator cuff surgery few years ago. She was more active and planning to go mushroom hunting in [place]. GERD was controlled, and she requested down regulation of her pantoprazole dose from gastroenterology. Ileostomy was status quo. Diabetes and lipids were controlled. She was in the ED 01/18 for right flank pain, which resolved on presentation. She felt she passed a stone. However, her CT scan of abdomen and pelvis showed no findings on the right, incidental nephrolithiasis of the left, hepatic steatosis, and stable ostomy. Review of Systems Constitutional: Negative for appetite change, fever and unexpected weight change. HENT: Negative. Respiratory: Negative for cough and shortness of breath. Cardiovascular: Negative for chest pain, palpitations and leg swelling. Gastrointestinal: Negative for abdominal pain, constipation and diarrhea. Genitourinary: Negative for difficulty urinating. Neurological: Negative for dizziness, light-headedness, numbness and headaches. 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, With Long-Term Current Use of Insulin (Hcc) Nuclear Sclerosis of Both Eyes Vitreous Floaters of Both Eyes Bone Loss Corticosteroids Adverse Reaction Gastroesophageal Reflux Disease Without Esophagitis Dry Eye Syndrome of Both Eyes Obesity (Bmi 30.0-34.9) Seronegative Spondyloarthropathy Psoriatic Arthritis (Hcc) Social History Tobacco Use Smoking status: Former Packs/day: 1.00 Years: 16.00 Additional pack years: 0.00 Total pack years: 16.00 Types: Cigarettes Quit date: 12/04/2006 Years since quittin.1 Smokeless tobacco: Never Vaping Use Vaping Use: Never used Substance Use Topics Alcohol use: No Drug use: No Current Outpatient Medications Medication Sig pregabalin (LYRICA) 25 mg capsule Take 1 capsule by mouth once daily for 30 days. Insulin Lynch, Disposable, (DROPLET PEN NEEDLE) 32 gauge x 5/32 INJECT ONE TIME DAILY ustekinumab (STELARA) 45 mg/0.5 mL sub-Q syringe Inject 45 mg (1 syringe) subcutaneously every 12 weeks Blood-Glucose Sensor (FREESTYLE GIANFRANCO 3 SENSOR) matilda Apply new sensor every fourteen (14) days to upper arm. insulin glargine (LANTUS SOLOSTAR U-100 INSULIN) 100 unit/mL (3 mL) INJECT 20 UNITS UNDER THE SKIN EVERY MORNING semaglutide (OZEMPIC) 2 mg/dose (8 mg/3 mL) pen injector INJECT 2MG UNDER THE SKIN ONE TIME WEEKLY pantoprazole DR (PROTONIX) 40 mg tablet Take 1 tablet by mouth once daily. clobetasol (TEMOVATE) 0.05 % ointment Apply to affected area two times a day. Face. Feet. Two weeks on and two weeks off, per [facility] Derm[facility]. fexofenadine HCl (LELA ORAL) Take by mouth. glucagon (GVOKE) 1 mg/0.2 mL injection Inject 0.2 mL subcutaneously as needed. levonorgestrel (MIRENA) 20 mcg/24 hours (8 yrs) 52 mg IUD 1 Each by INTRAUTERINE route as directed. Lancing Device with Lancets ACCU CHEK FASTCLIX LANCET *DEVICE* use to check blood glucose up to 2 times per day as instructed. E11.9 Lancets (ACCU-CHEK FASTCLIX LANCET DRUM) lancets Use as instructed to check blood glucose up to 2 times daily. E11.9 oxyCODONE-acetaminophen (PERCOCET) 5-325 mg tablet TAKE 1 TABLET BY MOUTH 3 TIMES A DAY NEEDED FOR 28 DAYS flash glucose sensor (FREESTYLE GIANFRANCO 2 SENSOR) kit Apply new sensor every fourteen (14) days to upper arm. Dx E11.9 rizatriptan (MAXALT VENEER JOINER) 10 mg disintegrating tablet Take 1 tablet by mouth as needed for migraine headache (see administration instructions). May repeat in 2 hours if needed vits62/FA/om3/dha/epa ( GUMMY ORAL) Take 2 Doses by mouth once daily. Blood-Glucose Meter (ACCU-CHEK DIANNE) Test blood sugar(s) 2 times daily. Dx: Type 2 DM - Controlled E11.9 Insulin: No, Accu-check brand covered by insurance Ascorbic Acid 500 mg chew Take 1,000 mg by mouth once daily. With rosehips elderberry fruit (ELDERBERRY ORAL) Take by mouth. COMPOUNDED PRESCRIPTION 1. V44.2 Ileostomy status (HCC) (primary diagnosis) 2. 555.1 Regional enteritis of large intestine (HCC) Ileostomy Supplies. 1. Pouches, 2. Planges, 3. Felipe seals, 4. Stoma adhesive, 5. Stoma powder, 6. Skin preps, 7. Adhesive remover wipes. Dispense 1 year supplies. tiZANidine (ZANAFLEX) 4 mg tablet Take by mouth. . Takes 1 tablet at bedtime. albuterol HFA (PROAIR HFA) 90 mcg/actuation inhaler Inhale 2 Puffs as instructed every 6 hours as needed. blood sugar diagnostic (FREESTYLE PRECISION DAVID STRIPS) test strip Use as instructed E11.9 No current facility-administered medications for this visit. Objective BP 120/74 (BP Site: Right Arm, BP Position: Sitting, BP Cuff Size: Large Adult) Pulse 76 Temp 36.7 C (98.1 F) (Temporal) Resp 16 Wt 76.2 kg (167 lb 14.4 oz) LMP 07/25/2018 BMI 33.34 kg/m Physical Exam Constitutional: General: She is not in acute distress. Appearance: She is not ill-appearing. Eyes: Conjunctiva/sclera: Conjunctivae normal. Cardiovascular: Rate and Rhythm: Normal rate and regular rhythm. Heart sounds: No murmur heard. No gallop. Pulmonary: Effort: No respiratory distress. Breath sounds: No wheezing or rales. Musculoskeletal: Right lower leg: No edema. Left lower leg: No edema. Neurological: Mental Status: She is alert. Feet:Shoes and socks removed, No deformities, ulcers, calluses, normal distal pulses, sensitive to 10 gm monofilament, and right big toenail with mycotic changes. Depression Screening PHQ-2 Score 01/23/2024 0 Depression screening tool completed and reviewed. Based on score and interview, patient is not at risk for depression. Screening tool discussed with patient, and I recommended no further intervention at this time. Assessment and Plan 1. Fibromyalgia - ICD9: 729.1, ICD10: M79.7 (primary diagnosis) Wean off pregabalin completely next month. See printed instructions or information. 2. Type 2 diabetes mellitus treated with insulin (HCC) - ICD9: 250.00, V58.67, ICD10: E11.9, Z79.4 - Improving control - Continue current medications per endocrinology. 3. Mixed hyperlipidemia - ICD9: 272.2, ICD10: E78.2 - Worsening control - Continue current medications - Counseled on healthy diet and regular exercise 4. Ileostomy status (HCC) - ICD9: V44.2, ICD10: Z93.2 - Stable. 5. Gastroesophageal reflux disease without esophagitis - ICD9: 530.81, ICD10: K21.9 Controlled. - PANTOPRAZOLE 20 MG TABLET,DELAYED RELEASE. Dose reduction per patient request. Grayson Phan MD documented in this encounter [facility] 01-16-2024 Miscellaneous Notes Patient called in to ask the office for a prior auth for the Freestyle Gianfranco 3 Sensor Arlin Jordan Chief Service Observer II [facility]-0 documented in this encounter [facility] 01-15-2024 Miscellaneous Notes Patient calls back and notified that dose was decreased to once a day. Patient voices understanding. Aaliyah Juarez RN Left a message for pt to call the office and ask to speak to a nurse. Lucretia Grove LPN Patient's request for medication is as follows Requested Prescriptions Signed Prescriptions Disp Refills pregabalin (LYRICA) 25 mg capsule 30 capsule 0 Sig: Take 1 capsule by mouth once daily for 30 days. Authorizing Provider: GRAYSON PHAN Order entered - please phone pharmacy and notify patient. Grayson Phan MD Patient asking pcp to send the step down dose of lyrica to [facility] pharmacy. Reports she is currently taking the 25 mg bid dose, and is working with pcp to wean off of it. 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 documented in this encounter [facility] 01-03-2024 History of Present illness Narrative Phone Call [facility] Research Study IRB [id number] Translating Scientific Evidence into Practice Using Digital Medicine and Electronic Patient Reported Outcomes Primary Entry Level Electrical Engineer: MD [email or web address] IRB Approval Version: 01 SEP 2021 rev. 12 JAN 2023 Spoke with patient today following MyChart response for the above study. Patient is not currently a candidate due to having no symptoms. Patient inquired in regards to donating her body to research. Will follow up with her if such information is available. documented in this encounter [facility] 01-01-2024 Miscellaneous Notes Requester: Patient Patients last Endocrinology visit occurred 11/14/2023 Follow-up evaluation has been established 02/16/2024. Requested Prescriptions Pending Prescriptions Disp Refills Insulin Lynch, Disposable, (DROPLET PEN NEEDLE) 32 gauge x 5/32 100 Each 1 Sig: INJECT ONE TIME DAILY If patient is due for an appointment please route to provider for refill consideration and also to the endo scheduling pool. PSS NOTE: Patient needs scheduled appointment No documented in this encounter [facility] 12-26-2023 History of Present illness Narrative [facility] Specialty Refill Assessment Medication(s): Samuel Patient's current medication list and adherence status to current therapy were reviewed by Specialty Pharmacy clinical pharmacist to identify any new drug interactions or non-compliance to therapy. Therapy continues to be appropriate for disease, patient response, and medical condition. Verification of therapeutic benefit and effectiveness with current therapy was completed. Adverse events, barriers in adherence, and side effects were assessed and addressed if applicable. Will proceed with refill with no changes in therapy - patient progressing towards achieving therapeutic goals based on medication-specific laboratory parameters, disease state markers and outcomes. Date of Sid Lezama's last Rheumatology office visit: 06/16/23 Next appointment date: 12/25/23 Last labs: 08/14/23 Last TB test: TB Result Date Value Ref Range Status 04/19/2022 Negative Final Lexy Calvo PharmD Clinical Pharmacist, [employer] [facility] ; Pool: P [facility] Pool #: [id number] Feeder Operator Assessment Patient confirmed: Yes Med/dose confirmed: Yes Supplies needed: No supplies needed Missed doses: No Estimated days supply on hand: 0 Next cycle/dose due: 01/01/24 Copay amount: 0 Payment confirmed: Yes Delivery method: FedEx Signature required: Waived on patient request Delivery address: [address] [place] [address] Delivery date: 12/28/23 Questions or concerns for the pharmacist?: No [facility] Visit Assessment - Inflammatory Conditions: Assessment to use: Refill Vaccination Assessment: Date of influenza vaccination reminder: 12/22/2022 Date of most recent vaccination assessment: 12/22/2022 Treatment Plan Information: Treatment Plan Information: Seronegative spondyloarthropathy Crohn's disease with complication, unspecified gastrointestinal tract location (HCC) Osteoarthritis of spine, unspecified spinal osteoarthritis complication status, unspecified spinal region Stelara - Inject 45 mg (1 syringe) subcutaneously at weeks 0 and 4 followed by every 12 weeks thereafter. Est. Tx Plan Start Date: 12/23/2022 Estimated Treatment Duration: Until loss of efficacy and/or no longer tolerated. Shira Matta CPhT, Inflammatory/Allergy [facility] [phone] documented in this encounter [facility] 2023 History of Present illness Narrative On 2023, I had the pleasure of seeing Sid Lezama at the [facility] for follow-up of seronegative spondyloarthropathy HPI: To review, Sid Lezama is a 48 year old female - Since teenage years, with intermittent joint pain and swelling. Affected joints include the wrists, MCPs, PIPs, knees, ankles and toes. Also gets hip pain. Eases with movement/activity. Worst pain is evening. - In April, diagnosed with Crohn's per colonoscopy. Underwent surgery to remove the large intestine. - In , had a rectal fistula so tried remicade (stopped s/p 6th dose for rash). Rectal stump was removed after that. - Sees pain management for serial spinal injections - In , diagnosed with psoriasis over scalp, knees and dorsal feet. - In Jun, reported no GI issues, no need for medication or surgery for Crohn's since . Diagnosed with SpA. Advised humira which she decided against starting given c/f potential SE - Since February, has been seeing holistic provider. Taking supplements - In Jul, reported she had lost 20 lbs. Overall stable. - In Jun, reported she had 3 doses of stelara which she started after the prior visit. Had had 3 doses thus far. Improved psoriasis, not yet of joints - Today, reports 70-80% improved in the joints and skin with the stelara. Was due 12/22/23, needs more. 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 Mc, [facility] Type II or unspecified type diabetes mellitus without mention of complication, not stated as uncontrolled Ureterolithiasis 07/18/2019 GERD PAST SURGICAL HISTORY Procedure Laterality Date ADENOIDECTOMY PRIMARY <AGE 11 1986 Adenoidectomy ARTHROSCOPY KNEE DIAGNOSTIC W/WO SYNOVIAL BX SPX 1989 Arthroscopy, knee, left BRNCHSC INCL FLUOR GDNCE DX W/CELL WASHG SPX 01/2007 Bronchoscopy EGD 05/02/2023 EPIDURAL 2011 multiple ones done by Dr. Beckett ILEOSCOPY 05/02/2023 PAST SURGICAL HISTORY OF 06/2000 ILEOSTOMY/COLECTOMY PAST SURGICAL HISTORY OF 1993 CRYOCAUTERY/ MILD DYSPLASIA PAST SURGICAL HISTORY OF 03/2006 Abdominal abscess with anal fistula PRCTECT COMPL W/STOT/TOT COLCT W/VENEER JOINER BXS 12/05/2006 AP endoanal proctectomy SHOULDER ARTHROSCOPY/SURGERY Left 05/06/2020 Rotator cuff debridement, subacromial decompression/arthroplasty TONSILLECTOMY PRIMARY/SECONDARY <AGE 11 1987 Tonsillectomy ALLERGIES Allergen Reactions Azithromycin Unknown thinks a rash Dilaudid [Hydromorp* Swelling migraines Levemir [Insulin De* Other: See Comments Urine turned dark and smelly Methadone Swelling migraine Morphine Swelling migraines Remicade [Inflixima* Intolerance, Rash broke out in blisters with the 6th dose. Ultram [Tramadol Hc* Swelling migraines MEDICATIONS: Current Outpatient Medications Medication Sig pregabalin (LYRICA) 25 mg capsule Take 1 capsule by mouth two times a day for 30 days. Blood-Glucose Sensor (SkycatchYLE GIANFRANCO 3 SENSOR) matilda Apply new sensor every fourteen (14) days to upper arm. insulin glargine (LANTUS SOLOSTAR U-100 INSULIN) 100 unit/mL (3 mL) INJECT 20 UNITS UNDER THE SKIN EVERY MORNING semaglutide (OZEMPIC) 2 mg/dose (8 mg/3 mL) pen injector INJECT 2MG UNDER THE SKIN ONE TIME WEEKLY benzonatate (TESSALON PERLES) 100 mg capsule Take 2 capsules by mouth three times a day as needed. albuterol HFA (PROAIR HFA) 90 mcg/actuation inhaler Inhale 2 Puffs as instructed every 6 hours as needed. pantoprazole DR (PROTONIX) 40 mg tablet Take 1 tablet by mouth once daily. clobetasol (TEMOVATE) 0.05 % ointment Apply to affected area two times a day. Face. Feet. Two weeks on and two weeks off, per [facility] Dermatology. Magnesium Oxide 500 mg cap Take 500 mg by mouth. Insulin Lynch, Disposable, (DROPLET PEN NEEDLE) 32 gauge x 5/32 INJECT ONE TIME DAILY fexofenadine HCl (LELA ORAL) Take by mouth. glucagon (GVOKE) 1 mg/0.2 mL injection Inject 0.2 mL subcutaneously as needed. ustekinumab (STELARA) 45 mg/0.5 mL sub-Q syringe Inject 45 mg (1 syringe) subcutaneously at weeks 0 and 4 followed by every 12 weeks thereafter. levonorgestrel (MIRENA) 20 mcg/24 hours (8 yrs) 52 mg IUD 1 Each by INTRAUTERINE route as directed. Lancing Device with Lancets ACCU CHEK FASTCLIX LANCET *DEVICE* use to check blood glucose up to 2 times per day as instructed. E11.9 Lancets (ACCU-CHEK FASTCLIX LANCET DRUM) lancets Use as instructed to check blood glucose up to 2 times daily. E11.9 blood sugar diagnostic (FREESTYLE PRECISION DAVID STRIPS) test strip Use as instructed E11.9 oxyCODONE-acetaminophen (PERCOCET) 5-325 mg tablet TAKE 1 TABLET BY MOUTH 3 TIMES A DAY NEEDED FOR 28 DAYS flash glucose sensor (FREESTYLE GIANFRANCO 2 SENSOR) kit Apply new sensor every fourteen (14) days to upper arm. Dx E11.9 rizatriptan (MAXALT VENEER JOINER) 10 mg disintegrating tablet Take 1 tablet by mouth as needed for migraine headache (see administration instructions). May repeat in 2 hours if needed vits62/FA/om3/dha/epa ( GUMMY ORAL) Take 2 Doses by mouth once daily. Blood-Glucose Meter (ACCU-CHEK DIANNE) Test blood sugar(s) 2 times daily. Dx: Type 2 DM - Controlled E11.9 Insulin: No, Accu-check brand covered by insurance Ascorbic Acid 500 mg chew Take 1,000 mg by mouth once daily. With rosehips elderberry fruit (ELDERBERRY ORAL) Take by mouth. COMPOUNDED PRESCRIPTION 1. V44.2 Ileostomy status (HCC) (primary diagnosis) 2. 555.1 Regional enteritis of large intestine ([facility]) Ileostomy Supplies. 1. Pouches, 2. Planges, 3. Felipe seals, 4. Stoma adhesive, 5. Stoma powder, 6. Skin preps, 7. Adhesive remover wipes. Dispense 1 year supplies. tiZANidine (ZANAFLEX) 4 mg tablet Take by mouth. . Takes 1 tablet at bedtime. No current facility-administered medications for this visit. FAMILY HISTORY Problem Relation Age of Onset Alcohol/Drug Mother Hypertension Mother COPD other (vascular disease) Mother other (sleep apnea) Mother other (heart murmur) Mother Alcohol/Drug Father Cancer Father liver Asthma Brother Hypertension Daughter Diabetes Maternal Grandmother Stroke Maternal Grandmother Heart Maternal Grandmother Emphysema Paternal Grandmother Diabetes Paternal Grandfather Macular Degen Paternal Grandfather Anesthesia Problems No Family History F-hemochromatosis, in '13 from it. SOCIAL HISTORY: Lives in [place], [place] with spouse. 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 1 daughter, 24 yo lives with her. 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 Tobacco use: None Alcohol use: None Drug use: None REVIEW OF SYSTEMS: reviewed 08/26 systems, as above PHYSICAL EXAM: VITALS: Blood pressure 114/78, pulse 76, temperature 36.4 C (97.5 F), temperature source Temporal, height 151.1 cm (4' 11.5), weight 75.8 kg (167 lb), last menstrual period 07/25/2018. CONSTITUTIONAL: Well-appearing, in NAD. SKIN: Psoriasis of the occipital scalp, elsewhere resolved. No sclerodactyly, calcinosis, telangiectasias, digital ulcers, or skin thickening. EYES: No scleral icterus or conjunctivitis. ENT and Mouth: External ears normal. Nares normal. RESPIRATORY: Normal breath sounds, clear to auscultation. CARDIOVASCULAR: Regular rate and rhythm, no murmurs or rubs EXTREMITIES/LYMPH: No edema bilaterally NEURO: Awake, alert and oriented, antalgic gait MUSCULOSKELETAL: JOINT APPEARANCE: No erythema or warmth of any upper or lower extremity joint. RANGE OF MOTION: Able to fully close fists and curl fingers bilaterally. SWOLLEN JOINTS/SYNOVITIS: No synovitis of any joint. TENDER JOINTS: None *Jun Widespread Pain Index: 16 (0-19) Symptoms Severity Scale: 6 (0-12) WPI>7 and SS Scale>5 OR WPI 3-6 and SS Scale >9 consistent with fibromyalgia LABORATORY: Component Latest Ref Rng & Units 08/14/2023 WBC 3.70 - 11.00 k/uL 4.95 RBC 3.90 - 5.20 m/uL 5.23 (H) Hemoglobin 11.5 - 15.5 g/dL 15.1 Platelet Count 150 - 400 k/uL 241 Creatinine 0.58 - 0.96 mg/dL 0.69 Sodium 136 - 144 mmol/L 140 Potassium 3.7 - 5.1 mmol/L 4.4 Chloride 97 - 105 mmol/L 103 CO2 22 - 30 mmol/L 22 Anion Gap 9 - 18 mmol/L 15 Calcium 8.5 - 10.2 mg/dL 10.1 eGFR >=60 mL/min/1.73m 107 AST 13 - 35 U/L 21 ALT 7 - 38 U/L 29 *April neg quant gold Component Latest Ref Rng & Units 04/19/2022 Hep C Antibody IA Negative Negative Hep B Surface Ag Negative Negative Hep B Surface Ab, Qual Negative Negative Hep B Core Ab, Total Negative Negative Component Latest Ref Rng & Units 09/19/2011 12/21/2011 Rheumatoid Factor <20 IU/mL <7 CCP Antibody, IgG <20 Units <15 HLA B27 NEGAT Positive (A) INOCENCIO by EIA <1.5 OD Ratio 0.4 Anti-SSA <1.0 AI <0.2 Anti-SSB <1.0 AI <0.2 STUDIES: *April MRI R shoulder- mild supraspinatus tendinosis *Oct xray L foot- Calcaneal enthesophytes. *Oct MRI pelvis- NO ACUTE ABNORMALITY Sacroiliac joints: Punctate area of subchondral edema within the right sacrum at the SI joint on series 8 image 11, doubtful clinical significance. *Sep xray SI joints- Asymmetrical sacroiliitis involving the left SI joint. *Sep xray hands/feet- Mild degenerative change. IMPRESSION and PLAN: 1. Seronegative spondyloarthropathy: With joint pain/swelling responsive to systemic effect of localized steroid joint injections in the setting of a positive HLA-B27, x-rays show L SI joint sacroiliitis, history of Crohn's and psoriasis. Remicade with blisters. Stelara with improvement in the skin and joints - Continue stelara 45mg SC every 12 weeks. Advised about timing of potential parathyroid surgery, (10-12 weeks after last dose, with next dose 2 weeks after). Message to endocrine providers sent per her request 2. Spinal osteoarthritis: - Continue pain clinic management (not [facility]) 3. R rotator cuff tear: - Orthopedic management 4. General health maintenance: - Not planning to get the covid vaccine as she had covid in March - Advised to continue follow-up with PCP for routine health maintenance and malignancy screening Follow-up in 5, 10 & 20 months with Steve and 15 months with me. Thank you for allowing me to participate in the care of your patient. Scott Gold MD documented in this encounter [facility] 12-15-2023 Miscellaneous Notes Patient's request for medication is as follows Requested Prescriptions Signed Prescriptions Disp Refills pregabalin (LYRICA) 25 mg capsule 60 capsule 0 Sig: Take 1 capsule by mouth two times a day for 30 days. Authorizing Provider: GRAYSON PHAN MD Pt states that provider was tapering her off of the Lyrica and she needed the 25 mg called in not the 50 mg. Pt reports so far with the taper she has had some stiffness in her hip and flushing in her face. Patient has been identified by name and date of : Yes, Provider Dr Phan Date 12/15/23 Time 1024. Patient phones for refill(s): Requested Prescriptions Pending Prescriptions Disp Refills pregabalin (LYRICA) 25 mg capsule Sig: Take 1 capsule by mouth two times a day. Date of last office visit in primary care: 08/11/2023 Date of next office visit in primary care: 01/23/2024 Please advise. Thank you. Gilmer Thorpe RN. documented in this encounter [facility] 11-07-2023 History of Present illness Narrative Radiology Service Progress Note PATIENT NAME: Sid Lezama DATE OF SERVICE: November 07, 2023 TIME: 4:21 PM PATIENT IDENTITY VERIFICATION COMPLETED USING TWO (2) IDENTIFIERS: Name and Date of confirmed by patient verbally. FALL SCREENING: Has the patient had 2 falls in the last year or 1 fall with injury or currently using an Ambulatory Assistive Device (Walker, Cane, Wheelchair, Crutches, etc.)? No PATIENT GENDER DATA: Female. status: : No status: NO. PATIENT RELEVANT IMPLANT DATA REVIEWED: Not Applicable RADIOLOGY DEPARTMENT: General X-ray: Exam(s) Completed: Chest X-Ray PERIPHERAL IV DATA: Not applicable SIGNED BY: RT Duncan(R) November 07, 2023 4:21 PM documented in this encounter [facility] 10-11-2023 History of Present illness Narrative Images from the original note were not included. PLASTIC SURGERY DEPARTMENT [facility] Hand Surgery Note [x] New referred by []self []physician.......... [] Follow-up CC: ...L hand pain........... ? HPI: Sid is a 47 year old female who presents today for follow up from a fall with left hand pain. She had a fall on outstretched hand on 09/26 while walking in the [facility] and reports the wrist hyperextended against her watch, was not seen following injury until 10/04 [facility] due to continued pain. They attempted to place her in a thumb spica splint but she was not able to tolerate it. She has not been wearing a splint since. Pain is present when weightbearing. Job:...disabled....... Recreational activities with hands: ........ Dominant Hand: right [x] left [] Date onset symptoms: ..09/26........ Symptoms location -[] RIGHT [] worse -[] LEFT [] worse Fingers 1[] 2[] 3[] 4[] 5 [] 1[] 2[] 3[] 4[] 5 []. []Tingling []Numbness []Pain Symptoms location -[] RIGHT [] worse -[] LEFT [] worse Hand []Radial []volar [] ulnar [] dorsal []Radial []volar [] ulnar [x] dorsal wrist []Radial []volar [] ulnar [] dorsal []Radial []volar [] ulnar [] dorsal forearm []Radial []volar [] ulnar [] dorsal []Radial []volar [] ulnar [] dorsal elbow []Radial []volar [] ulnar [] dorsal []Radial []volar [] ulnar [] dorsal arm [] [] shoulder [] [] neck [] [] []Tingling []Numbness [x]Pain Overall PAIN Now 0[] 1[] 2[] 3[] 4[] 5[x] 6[] 7[] 8[] 9[] 10[] Average 0[] 1[] 2[] 3[] 4[] 5[] 6[] 7[] 8[] 9[] 10[] Rest 0[] 1[] 2[] 3[] 4[] 5[] 6[] 7[] 8[] 9[] 10[] Function 0[] 1[] 2[] 3[] 4[] 5[] 6[] 7[] 8[] 9[] 10[] Quality [x]sharp []dull [x]aching []sore []taut []pulled []torsion []shooting []pricking []pressing []lacerating []pinching []squeezing []drilling []spasm [x] throbbing []burning []cramping []cutting []heavy []itchy []radiating [] electrical []stinging [] cold intolerance How frequently during the day (%): ..100 when using the hand......... Night Symptoms [] Associated Signs/Symptoms Swelling [x] Stiffness [] Weakness [] Prior Trauma? []No [x]Yes Pain? [x]same []better []worse over time Intervention/Prior Treatment: []no [x]yes [x]Decrease activity level and using heat/ ice []PT/OT,chiropractic treatments, or medically directed home exercise program for..........weeks in the last..........months (date started:...........) []Medications []Steroid injection []Splint/cast []Surgery............... IMPROVEMENT WITH PREVIOUS STEROID INJECTION: NO [] YES [] ............% []R []L []R=L []R>L []R<L Symptoms improved: Tingling [] Numbness [] Pain [] ANY TINGLING OR NUMBNESS IN THE FEET: NO [] YES [] .............. Hemoglobin A1C (%) Date Value 08/09/2022 5.2 05/18/2021 7.6 01/18/2021 6.7 07/24/2020 7.2 01/23/2018 7.1 12/21/2016 8.8 Hemoglobin A1C (POCT) (%) Date Value 07/24/2023 7.4 12/20/2022 6.4 05/10/2022 5.8 10/04/2021 5.8 01/16/2020 7.5 Last 10 Encounter BP Readings: Date: BP: 10/04/2023 138/80 08/11/2023 116/78 07/26/2023 123/77 07/24/2023 117/72 05/29/2023 100/62 05/02/2023 146/79 05/02/2023 125/67 04/29/2023 159/85 02/20/2023 133/74 02/06/2023 122/76 CBC Latest Ref Rng & Units 03/24/2022 12/15/2022 08/14/2023 WBC 3.70 - 11.00 k/uL 7.35 9.29 4.95 RBC 3.90 - 5.20 m/uL 5.45(H) 5.26(H) 5.23(H) HGB 12.0 - 16.0 g/dL - - - HEMOGLOBIN 11.5 - 15.5 g/dL 15.6(H) 15.3 15.1 HEMOGLOBIN, RAVEN 12.0 - 16.0 g/dL - - - HEMATOCRIT 36.0 - 46.0 % 48.5(H) 45.8 44.9 MCV 80.0 - 100.0 fL 89.0 87.1 85.9 MCV, RAVEN 81 - 99 fL - - - MCH 26.0 - 34.0 pg 28.6 29.1 28.9 MCH, RAVEN 27 - 31 pg - - - MCHC 30.5 - 36.0 g/dL 32.2 33.4 33.6 MCHC, RAVEN 33 - 37 g/dL - - - RDW 11.5 - 15.9 % - - - RDW, RAVEN 11.5 - 14.5 % - - - RDW-CV 11.5 - 15.0 % 13.0 12.7 12.8 PLATELETS 150 - 400 k/uL 273 270 241 MPV 9.0 - 12.7 fL 11.0 10.6 11.2 NEUT%, RAVEN 42.2 - 75.2 % - - - MONO%, RAVEN 1.7 - 9.3 % - - - EOS%, RAVEN 0.0 - 6.0 % - - - BASO% % 0.8 0.8 1.0 BASO%, RAVEN 0.0 - 2.0 % - - - ABS NEUT (ANC) 1.45 - 7.50 k/uL 3.91 5.98 2.04 ABS NEUT, RAVEN 2.0 - 8.1 k/uL - - - ABS LYMP, RAVEN 1.0 - 5.5 k/uL - - - ABS LYMPH 1.00 - 4.00 k/uL 2.61 2.39 2.26 ABS MONO <0.87 k/uL 0.56 0.66 0.40 ABS MONO, RAVEN 0.1 - 1.0 k/uL - - - ABS EOS, RAVEN 0.0 - 0.2 k/uL - - - ABS EOSIN <0.46 k/uL 0.18 0.17 0.18 ABS BASO <0.11 k/uL 0.06 0.07 0.05 ABS BASO, RAVEN 0.0 - 0.1 k/uL - - - NRBC /100 WBC 0.0 0.0 0.0 PLATELET ESTIMATE - - - - DIFF TYPE - - - - CMP Latest Ref Rng & Units 12/15/2022 12/20/2022 08/14/2023 SODIUM 136 - 144 mmol/L - 140 140 SODIUM, RAVEN 132 - 148 mmol/L - - - SODIUM, RAVEN 132 - 148 mmol/L - - - POTASSIUM 3.7 - 5.1 mmol/L - 3.4(L) 4.4 POTASSIUM, RAVEN 3.5 - 5.0 mmol/L - - - CHLORIDE 97 - 105 mmol/L - 99 103 CHLORIDE, RAVEN 98 - 110 mmol/L - - - CO2 22 - 30 mmol/L - 30 22 CO2, RAVEN 23.0 - 32.0 mmol/L - - - GLUCOSE 74 - 99 mg/dL - 82 156(H) GLUCOSE (U), RAVEN NEGAT mg/dL - - - GLUCOSE, RAVEN 65 - 100 mg/dL - - - BUN 7 - 21 mg/dL - 9 7 BUN, RAVEN 10 - 25 mg/dL - - - CREATININE 0.58 - 0.96 mg/dL - 0.60 0.69 CREATININE, RAVEN 0.7 - 1.4 mg/dL - - - EGFR >=60 mL/min/1.73m - 112 107 EGFR-ALL OTHER RACES . - - - EGFR- - - - - PROTEIN, TOTAL 6.3 - 8.0 g/dL 6.9 - - TOTAL PROTEIN, RAVEN 6.0 - 8.4 g/dL - - - ALBUMIN 3.9 - 4.9 g/dL 4.4 4.5 4.2 ALBUMIN, RAVEN 3.5 - 5.0 g/dL - - - ALBUMIN, URINE RANDOM mg/L - - 17.2 CALCIUM, RAVEN 8.5 - 10.5 mg/dL - - - CALCIUM, 24 HR URINE 100.0 - 300.0 mg/24 hr - - - CALCIUM, TOTAL 8.5 - 10.2 mg/dL - 10.5(H) 10.1 BILIRUBIN, TOTAL 0.2 - 1.3 mg/dL 0.6 - - AST 13 - 35 U/L 25 - 21 AST, RAVEN 7 - 40 U/L - - - ALT 7 - 38 U/L 23 - 29 ALT, RAVEN 0 - 45 U/L - - - ALKALINE PHOSPHATASE 34 - 123 U/L 91 107 - YES NO Smoking, vaping, nicotine, cannabis [] [x] Cigarettes/ day.... ? Hormone replacement (contraceptive, post menopause hormone treatment) [x] [] Medication.mirena... Diabetes [x] [] []Type 1? [x]Type 2 ?Last A1c:..7.3... Systemic inflammatory diseases [x] [] []RA []Gout []Other.Crohns, psoriasis.. Hypertension [] [x] Meds:....... Heart disease or pacemaker [] [x] ............ Family history blood clots [] [x] Personal history blood clots [] [x] Anticoagulation (aspirin, coumadin, xarelto,etc) [] [x] What........... Reason:........... Immunosuppressants (steroid, biologic meds infusion, etc) [x] [] What..stelara......... Reason:..crohns and psoriasis......... Upper extremity AV fistula (dialysis) or vessels injury or disease [] [x] Overhead activities [] [x] Cervical problems [] [x] []C3 []C4 []C5 []C6 []C7 []C8 []T1 []Conservative []Fusion []Discectomy []Other... Pt AGAINST blood transfusion? 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 Mc, [facility] Type II or unspecified type diabetes mellitus without mention of complication, not stated as uncontrolled Ureterolithiasis 07/18/2019 PAST SURGICAL HISTORY Procedure Laterality Date ADENOIDECTOMY PRIMARY <AGE 11 1986 Adenoidectomy ARTHROSCOPY KNEE DIAGNOSTIC W/WO SYNOVIAL BX SPX 1989 Arthroscopy, knee, left [facility] INCL FLUOR GDNCE DX W/CELL WASHG SPX 01/2007 Bronchoscopy EGD 05/02/2023 EPIDURAL 2011 multiple ones done by Dr. Beckett ILEOSCOPY 05/02/2023 PAST SURGICAL HISTORY OF 06/2000 ILEOSTOMY/COLECTOMY PAST SURGICAL HISTORY OF 1993 CRYOCAUTERY/ MILD DYSPLASIA PAST SURGICAL HISTORY OF 03/2006 Abdominal abscess with anal fistula PRCTECT COMPL W/STOT/TOT COLCT W/VENEER JOINER BXS 12/05/2006 AP endoanal proctectomy SHOULDER ARTHROSCOPY/SURGERY Left 05/06/2020 Rotator cuff debridement, subacromial decompression/arthroplasty TONSILLECTOMY PRIMARY/SECONDARY <AGE 11 1986 Tonsillectomy Current Outpatient Medications Medication Sig Dispense Refill pantoprazole DR (PROTONIX) 40 mg tablet Take 1 tablet by mouth once daily. 60 tablet 2 pregabalin (LYRICA) 100 mg capsule Take 1 capsule by mouth two times a day for 30 days. 60 capsule 0 clobetasol (TEMOVATE) 0.05 % ointment Apply to affected area two times a day. Face. Feet. Two weeks on and two weeks off, per [facility]. insulin glargine (LANTUS SOLOSTAR U-100 INSULIN) 100 unit/mL (3 mL) INJECT 20 UNITS UNDER THE SKIN EVERY MORNING 30 mL 1 OZEMPIC 2 mg/dose (8 mg/3 mL) pen injector INJECT 2MG UNDER THE SKIN ONE TIME WEEKLY 9 Each 1 Magnesium Oxide 500 mg cap Take 500 mg by mouth. Blood-Glucose Sensor (FREESTYLE GIANFRANCO 3 SENSOR) matilda 1 Kit every 2 weeks. IDDM.DM2 6 Each 1 Insulin Lynch, Disposable, (DROPLET PEN NEEDLE) 32 gauge x 5/32 INJECT ONE TIME DAILY 100 Each 1 fexofenadine HCl (LELA ORAL) Take by mouth. glucagon (GVOKE) 1 mg/0.2 mL injection Inject 0.2 mL subcutaneously as needed. 0.4 mL 2 ustekinumab (STELARA) 45 mg/0.5 mL sub-Q syringe Inject 45 mg (1 syringe) subcutaneously at weeks 0 and 4 followed by every 12 weeks thereafter. 1.5 mL 1 levonorgestrel (MIRENA) 20 mcg/24 hours (8 yrs) 52 mg IUD 1 Each by INTRAUTERINE route as directed. 1 Each 0 Lancing Device with Lancets ACCU CHEK FASTCLIX LANCET *DEVICE* use to check blood glucose up to 2 times per day as instructed. E11.9 1 Each 11 Lancets (ACCU-CHEK FASTCLIX LANCET DRUM) lancets Use as instructed to check blood glucose up to 2 times daily. E11.9 200 Each 3 blood sugar diagnostic (FREESTYLE PRECISION DAVID STRIPS) test strip Use as instructed E11.9 200 Each 2 oxyCODONE-acetaminophen (PERCOCET) 5-325 mg tablet TAKE 1 TABLET BY MOUTH 3 TIMES A DAY NEEDED FOR 28 DAYS flash glucose sensor (FREESTYLE GIANFRANCO 2 SENSOR) kit Apply new sensor every fourteen (14) days to upper arm. Dx E11.9 6 Each 4 rizatriptan (MAXALT VENEER JOINER) 10 mg disintegrating tablet Take 1 tablet by mouth as needed for migraine headache (see administration instructions). May repeat in 2 hours if needed 9 tablet 2 vits62/FA/om3/dha/epa ( GUMMY ORAL) Take 2 Doses by mouth once daily. Blood-Glucose Meter (ACCU-CHEK DIANNE) Test blood sugar(s) 2 times daily. Dx: Type 2 DM - Controlled E11.9 Insulin: No, Accu-check brand covered by insurance 1 Each 0 Ascorbic Acid 500 mg chew Take 1,000 mg by mouth once daily. With rosehips elderberry fruit (ELDERBERRY ORAL) Take by mouth. COMPOUNDED PRESCRIPTION 1. V44.2 Ileostomy status ([facility]) (primary diagnosis) 2. 555.1 Regional enteritis of large intestine ([facility]) Ileostomy Supplies. 1. Pouches, 2. Planges, 3. Felipe seals, 4. Stoma adhesive, 5. Stoma powder, 6. Skin preps, 7. Adhesive remover wipes. Dispense 1 year supplies. 20 bag 11 tiZANidine (ZANAFLEX) 4 mg tablet Take by mouth. . Takes 1 tablet at bedtime. No current facility-administered medications for this visit. ALLERGIES Allergen Reactions Azithromycin Unknown thinks a rash Dilaudid [Hydromorp* Swelling migraines Levemir [Insulin De* Other: See Comments Urine turned dark and smelly Methadone Swelling migraine Morphine Swelling migraines Remicade [Inflixima* Intolerance, Rash broke out in blisters with the 6th dose. Ultram [Tramadol Hc* Swelling migraines There is no height or weight on file to calculate BMI. Estimated body surface area is 1.83 meters squared as calculated from the following: Height as of 07/26/23: 149.9 cm (4' 11). Weight as of 10/04/23: 80.1 kg (176 lb 9.6 oz). LMP 07/25/2018 IMAGING (date/result): XRAY L wrist 10/04/2023 IMPRESSION: Vascular channel versus occult fracture in the first metacarpal bone. Consider follow-up. EMG/NCS (date/result): ROS: All negative except for: GENERAL: []weight loss []malaise []fevers HEENT: []frequent or significant headaches []changes in hearing []change in vision []nose bleeds []other nasal problems NECK: []lumps []goiter []pain and significant neck swelling RESPIRATORY: []cough []hemoptysis []wheezing []COPD []dyspnea []shortness of breath CARDIOVASCULAR: []chest pain []leg swelling []hypertension []CHF []palpitations GI: []nausea []vomiting []diarrhea MUSCULOSKELETAL: see HPI SKIN: [] skin lesions []rash []itching PSYCH: []sleep disturbance []mood disorder []recent psychosocial stressors HEMATOLOGY/LYMPHOLOGY: []prolonged bleeding []bruising easily []swollen nodes ENDOCRINE: []cold intolerance []heat intolerance []polyuria []polydipsia []goiter Physical Exam Awake, alert, and oriented x3. LUNGS: Lungs clear to auscultation, Good diaphragmatic excursion CARDIAC: Normal S1 and S2; no rubs, murmurs, or gallops, Rhythm: regular rate and rhythm, Rate: normal 2-POINT DISCRIMINATION RIGHT (radial) RIGHT (ulnar) RIGHT overall LEFT (radial) LEFT (ulnar) LEFT overall thumb ? 6 index ? ? 6 long ? ? 6 ring ? ? 6 small 6 TINEL'S (symptoms referred to) RIGHT (digit) LEFT (digit) 1 2 3 4 5 - 1 2 3 4 5 - Carpal Tunnel [] [] [] [] [] [] [] [] [] [] [] [] Guyon's Canal [] [] [] [] [] [] [] [] [] [] [] [] Pronator [] [] [] [] [] [] [] [] [] [] [] [] Cubital Tunnel [] [] [] [] [] [] [] [] [] [] [] [] Midarm medial [] [] [] [] [] [] [] [] [] [] [] [] Infraclavicular [] [] [] [] [] [] [] [] [] [] [] [] Supraclavicular [] [] [] [] [] [] [] [] [] [] [] [] COMPRESSION (symptoms referred to) RIGHT (digit) LEFT (digit) 1 2 3 4 5 - 1 2 3 4 5 - Phalens [] [] [] [] [] [] [] [] [] [] [] [] Pronator [] [] [] [] [] [] [] [] [] [] [] [] Forced flexion [] [] [] [] [] [] [] [] [] [] [] [] Elbow Hyperflexion [] [] [] [] [] [] [] [] [] [] [] [] Infraclavicular [] [] [] [] [] [] [] [] [] [] [] [] Supraclavicular [] [] [] [] [] [] [] [] [] [] [] [] Laney [] [] [] [] [] [] [] [] [] [] [] [] LEGEND: TINEL'S and COMPRESSION tests are referred to symptoms localized to 1=thumb, 2=index, 3=middle, 4=ring, 5=small finger MRC Muscle Power Scale RIGHT LEFT 0 1 2 3 4 5 0 1 2 3 4 5 APB [] [] [] [] [] [] [] [] [] [] [] [] Intrinsics [] [] [] [] [] [] [] [] [] [] [] [] RIGHT LEFT positive negative positive negative APB atrophy [] [] [] [] Intrinsics atrophy [] [] [] [] Clawing [] [] [] [] RIGHT LEFT 0 1 2 3 4 5 6 7 8 9 10 0 1 2 3 4 5 6 7 8 9 10 Kapandji score (thumb) [] [] [] [] [] [] [] [] [] [] [] [] [] [] [] [] [] [] [] [] [] [] THUMB degenerative RIGHT LEFT 1st CMC tenderness +[] -[] +[] -[] 1st CMC grind +[] -[] +[] -[] 1st Extensor Compartment tenderness +[] -[] +[] -[] Nathan's positive +[] -[] +[] -[] A1 Mamadou Tenderness +[] -[] +[] -[] A1 Triggering +[] -[] +[] -[] Intersection tenderness +[] -[] +[] -[] STT tenderness +[] -[] +[] -[] The four stages of the Eaton-Littler classification Right [] Left [] Stage Description [] I Subtle carpometacarpal joint space widening [] II Slight carpometacarpal joint space narrowing, sclerosis, and cystic changes with osteophytes or loose bodies < 2 mm [] III Advanced carpometacarpal joint space narrowing, sclerosis, and cystic changes with osteophytes or loose bodies > 2 mm [] IV Arthritic changes in the carpometacarpal joint as in Stage III with scaphotrapezial arthritis FINGERS DEGENERATIVE []RIGHT [x]LEFT [x]Thumb []IF []MF []RF []SF DIPJ tenderness +[] -[] DIPJ deformity +[] -[] PIPJ tenderness +[] -[] PIPJ deformity +[] -[] MCPJ tenderness +[] -[] MCPJ deformity +[] -[] CMCJ tenderness +[] -[] CMCJ deformity +[] -[] A1 Mamadou Tenderness +[] -[] A1 Triggering +[] -[] Tenderness of UCL of L thumb Stable and there is an endpoint Trigger finger Green Classification []RIGHT []LEFT []Thumb []IF []MF []RF []SF []Grade I Palm pain and tenderness at A-1 mamadou []Grade II Catching of digit []Grade III Locking of digit, passively correctable []Grade IV Fixed, locked digit WRIST RIGHT LEFT Distal Radius +[] -[] +[] -[] Distal Ulna +[] -[] +[] -[] Anatomical Snuff Box tenderness +[] -[] +[] -[] Scaphoid tubercle tenderness +[] -[] +[] -[] Scaphoid waist tenderness +[] -[] +[] -[] Scaphoid fossa tenderness +[] -[] +[] -[] Scapho-capitate joint tenderness +[] -[] +[] -[] S-L ligament tenderness +[] -[] +[] -[] Murray's test +[] -[] +[] -[] S-L shear test Unst[] []Stable Unst[] []Stable Lunate tenderness +[] -[] +[] -[] Lunate fossa tenderness +[] -[] +[] -[] Luno-capitate tenderness +[] -[] +[] -[] L-T ligament tenderness +[] -[] +[] -[] L-T shear test Unst[] []Stable Unst[] []Stable Triquetrum tenderness +[] -[] +[] -[] Ulnar Fovea tenderness +[] -[] +[] -[] Ulnar Snuffbox tenderness +[] -[] +[] -[] ECU tenderness +[] -[] +[] -[] Pain with forced ulnar deviation +[] -[] +[] -[] DRUJ tenderness +[] -[] +[] -[] DRUJ Supination stability Unst[] []Stable Unst[] []Stable DRUJ Pronation stability Unst[] []Stable Unst[] []Stable Pisiform tenderness +[] -[] +[] -[] P-T grind test tenderness +[] -[] +[] -[] Hamate hook tenderness +[] -[] +[] -[] STT tenderness +[] -[] +[] -[] Capitate tenderness +[] -[] +[] -[] Hamate tenderness +[] -[] +[] -[] FCR tenderness +[] -[] +[] -[] FCU tenderness +[] -[] +[] -[] FDPs FDSs tenderness +[] -[] +[] -[] ECRL/ECRB tenderness +[] -[] +[] -[] EDCs tenderness +[] -[] +[] -[] Active Range of Motion table ([x] Ticked box means full active ROM) RIGHT [] LEFT [] Thumb Index Long Ring Small DIPJ [] [] [] [] [] PIPJ [] [] [] [] [] MCPJ [] [] [] [] [] CMCJ [] [] [] [] [] RIGHT [] LEFT [] Radial Ulnar Flexion Extension Wrist [] [] [] [] RIGHT [] LEFT [] Pronation Supination DRUJ [] [] Subcutaneous Mass location and characteristics: []Right []Left []Thumb []Index []Middle []Ring []Small [] P3 []DIPJ []P2 []PIPJ []P1 []MCPJ []Metacarpal []CMCJ []wrist []DRUJ []Forearm []Elbow []Arm []Shoulder []Infra/Supraclavicular []Volar []Dorsal []Radial []Ulnar []Medial []Lateral []Mobile Fixed to([]skin []tendon []sheath/capsule []joint []bone []nerve []vessel) []none []nail plate grooving []ulceration []skin discoloration/thinning []pulsation/thrill []positive Tinel's/compression test (to.................) Size...........mm Patient Entered Questionnaires PROMIS Score Percentiles PROMIS Global Health Scale 12/15/2022 03/10/2023 06/12/2023 Physical Health Percentile 10 7 31 Mental Health Percentile 34 34 53 Percentiles provide an indication of how the patient's score ranks in relation to the general population. Higher percentile rankings indicate better function/quality of life. 50th percentile is the average of the general population and indicates half of respondents had a worse score. > 31st percentile is within normal limits or better * < 31st percentile is at least SD worse than population, which may be clinically relevant < 16th percentile is at least 1 SD worse than population and warrants attention Assessment:....... left hand pain.... Plan:... This. Should not has more pain at the level of the ulnar collateral ligament of the MCP joint of the left hand. There is a and endpoint. She has minimal tenderness. Overall the joint is very stable. I recommended the patient to get a MSK ultrasound and come back after that.... []Pictures []Conservative []Medications []Steroid injection []Splint []Cast []OT []PT []CAST ROOM []EMG/ NCS []neuromuscular US []radiology []xrays [x]US []CT []MRI []Surgery -US of left thumb to evaluate UCL -Patient states she cannot tolerate thumb spica splint but will try the one she has at home -Consult OT placed Follow-up: [x]with LOG BRANDER [] with [x]after tests completed []PRN []1 week []2 weeks []3 weeks []4 weeks []6 weeks []2 months []3 months []6 months []9 months []1 year otherwise []weeks []months The patient was informed about possible options for treatment: Conservative vs. Operative, possible pros and cons with complications of both were discussed. The patient elects to have []conservative treatment []surgery All anesthestic options discussed with patient: wide awake local anesthesia, peripheral nerve block with possible sedation, peripheral nerve block with pain catheter and possible sedation, general anesthesia. Patient voiced understanding and has chosen []local []block ([]single shot []catheter) []WALANT []MAC []general anesthesia No guarantee that symptoms like pain, tingling and numbness will improve after surgery, the patient understands this. The risk, benefits and alternatives of injection and no injection therapy were discussed. The patient consented for an injection. The injection site was prepped with an alcohol swab. The INJECTION SITE RIGHT LEFT CARPAL TUNNEL [] [] CMCJ 1[] 2[] 3[] 4[] 5[] 1[] 2[] 3[] 4[] 5[] TRIGGER FINGER 1[] 2[] 3[] 4[] 5[] 1[] 2[] 3[] 4[] 5[] EXTENSOR COMP 1[] 2[] 3[] 4[] 5[] 6[] 1[] 2[] 3[] 4[] 5[] 6[] STT [] [] RADIOCARPAL [] [] MIDCARPAL [] [] DRUJ [] [] MCPJ 1[] 2[] 3[] 4[] 5[] 1[] 2[] 3[] 4[] 5[] PIPJ 1[] 2[] 3[] 4[] 5[] 1[] 2[] 3[] 4[] 5[] DIPJ 1[] 2[] 3[] 4[] 5[] 1[] 2[] 3[] 4[] 5[] was/were injected with a 27 gauge needle with a total of []10mg []20mg []30mg []40mg []50mg Kenalog and a total of []0.5 ml []1ml []1.5ml []2ml []5ml []10ml []15ml []20ml of 1% Lidocaine plain. The patient was assessed for application of a splint. The []right []left splint ([]finger []CT []thumb spica []cool comfort) was/were applied and the patient was informed how to use it. The patient was agreeable with the plan. Work restrictions: []none []one handed duty []no lifting, pulling, pushing, squeezing more than ..........pounds []until FU [] for ..........weeks The patient is seen and examined by Dr. Pop and the following reflects his/her service. Scribed by Yadi Hope RN I agree with the Chief Complaint, ROS, and Past Histories independently gathered by the clinical postal support employee and the remaining scribed note accurately describes my personal service to the patient. I spent a total of 30 minutes on the date of the service which included preparing to see the patient, [id number] patient care, completing clinical documentation, obtaining and/or reviewing separately obtained history, performing a medically appropriate examination and counseling and educating the patient/family/caregiver. Abhi Pop MD PhD October 11, 2023 3:41 PM This note was generated with voice recognition software and may contain errors, including spelling, grammar, syntax and misrecognition of what was dictated, that are not fully corrected. documented in this encounter [facility] 10-04-2023 History of Present illness Narrative This note was created using Ringio. Subjective Sid Lezama is a 47 year old female. 47 year old female with PMH fibromyalgia, hyperlipidemia, DM and obesity presents for complaints of wrist pain. Acute onset 8 days ago Left wrist States she was in [place] and walking. States she fell and left wrist was hyperextended Denies head injury or LOC Denies being seen at that time. Right hand dominant Pain continues, inability to zip pants or hold the phone. The history is provided by the patient. No bread icer was used. Wrist/forearm Injury The incident occurred more than 1 week ago. [place] The injury mechanism was a fall. The pain is present in the left wrist. The quality of the pain is described as aching. The pain does not radiate. The pain is at a severity of 5/10. The pain is moderate. The pain has been Constant since the incident. Pertinent negatives include no chest pain, muscle weakness, numbness or tingling. She has tried NSAIDs and rest for the symptoms. The treatment provided no relief. 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 Mc, [facility] Type II or unspecified type diabetes mellitus without mention of complication, not stated as uncontrolled Ureterolithiasis 07/18/2019 PAST SURGICAL HISTORY Procedure Laterality Date ADENOIDECTOMY PRIMARY <AGE 11 1986 Adenoidectomy ARTHROSCOPY KNEE DIAGNOSTIC W/WO SYNOVIAL BX SPX 1989 Arthroscopy, knee, left BRNCC INCL FLUOR GDNCE DX W/CELL WASHG SPX 01/2007 Bronchoscopy EGD 05/02/2023 EPIDURAL 2011 multiple ones done by Dr. Beckett ILEOSCOPY 05/02/2023 PAST SURGICAL HISTORY OF 06/2000 ILEOSTOMY/COLECTOMY PAST SURGICAL HISTORY OF 1993 CRYOCAUTERY/ MILD DYSPLASIA PAST SURGICAL HISTORY OF 03/2006 Abdominal abscess with anal fistula PRCTECT COMPL W/STOT/TOT COLCT W/VENEER JOINER BXS 12/05/2006 AP endoanal proctectomy SHOULDER ARTHROSCOPY/SURGERY Left 05/06/2020 Rotator cuff debridement, subacromial decompression/arthroplasty TONSILLECTOMY PRIMARY/SECONDARY <AGE 11 1986 Tonsillectomy ALLERGIES Azithromycin, Dilaudid [Hydromorphone (Bulk)], Levemir [Insulin Detemir], Methadone, Morphine, Remicade [Infliximab], and Ultram [Tramadol Hcl] MEDICATIONS pantoprazole DR (PROTONIX) 40 mg tablet Take 1 tablet by mouth once daily. pregabalin (LYRICA) 100 mg capsule Take 1 capsule by mouth two times a day for 30 days. clobetasol (TEMOVATE) 0.05 % ointment Apply to affected area two times a day. Face. Feet. Two weeks on and two weeks off, per [facility]. insulin glargine (LANTUS SOLOSTAR U-100 INSULIN) 100 unit/mL (3 mL) INJECT 20 UNITS UNDER THE SKIN EVERY MORNING OZEMPIC 2 mg/dose (8 mg/3 mL) pen injector INJECT 2MG UNDER THE SKIN ONE TIME WEEKLY Magnesium Oxide 500 mg cap Take 500 mg by mouth. Insulin Lynch, Disposable, (DROPLET PEN NEEDLE) 32 gauge x 5/32 INJECT ONE TIME DAILY fexofenadine HCl (LELA ORAL) Take by mouth. glucagon (GVOKE) 1 mg/0.2 mL injection Inject 0.2 mL subcutaneously as needed. ustekinumab (STELARA) 45 mg/0.5 mL sub-Q syringe Inject 45 mg (1 syringe) subcutaneously at weeks 0 and 4 followed by every 12 weeks thereafter. levonorgestrel (MIRENA) 20 mcg/24 hours (8 yrs) 52 mg IUD 1 Each by INTRAUTERINE route as directed. Lancing Device with Lancets ACCU CHEK FASTCLIX LANCET *DEVICE* use to check blood glucose up to 2 times per day as instructed. E11.9 Lancets (ACCU-CHEK FASTCLIX LANCET DRUM) lancets Use as instructed to check blood glucose up to 2 times daily. E11.9 blood sugar diagnostic (FREESTYLE PRECISION DAVID STRIPS) test strip Use as instructed E11.9 oxyCODONE-acetaminophen (PERCOCET) 5-325 mg tablet TAKE 1 TABLET BY MOUTH 3 TIMES A DAY NEEDED FOR 28 DAYS flash glucose sensor (FREESTYLE GIANFRANCO 2 SENSOR) kit Apply new sensor every fourteen (14) days to upper arm. Dx E11.9 rizatriptan (MAXALT VENEER JOINER) 10 mg disintegrating tablet Take 1 tablet by mouth as needed for migraine headache (see administration instructions). May repeat in 2 hours if needed vits62/FA/om3/dha/epa ( GUMMY ORAL) Take 2 Doses by mouth once daily. Blood-Glucose Meter (ACCU-CHEK DIANNE) Test blood sugar(s) 2 times daily. Dx: Type 2 DM - Controlled E11.9 Insulin: No, Accu-check brand covered by insurance elderberry fruit (ELDERBERRY ORAL) Take by mouth. COMPOUNDED PRESCRIPTION 1. V44.2 Ileostomy status (HCC) (primary diagnosis) 2. 555.1 Regional enteritis of large intestine (HCC) Ileostomy Supplies. 1. Pouches, 2. Planges, 3. Felipe seals, 4. Stoma adhesive, 5. Stoma powder, 6. Skin preps, 7. Adhesive remover wipes. Dispense 1 year supplies. tiZANidine (ZANAFLEX) 4 mg tablet Take by mouth. . Takes 1 tablet at bedtime. Blood-Glucose Sensor (FREESTYLE GIANFRANCO 3 SENSOR) matilda 1 Kit every 2 weeks. IDDM.DM2 Ascorbic Acid 500 mg chew Take 1,000 mg by mouth once daily. With rosehips FAMILY HISTORY Problem Relation Age of Onset Alcohol/Drug Mother Hypertension Mother COPD other (vascular disease) Mother other (sleep apnea) Mother other (heart murmur) Mother Alcohol/Drug Father Cancer Father liver Asthma Brother Hypertension Daughter Diabetes Maternal Grandmother Stroke Maternal Grandmother Heart Maternal Grandmother Emphysema Paternal Grandmother Diabetes Paternal Grandfather Macular Degen Paternal Grandfather Anesthesia Problems No Family History Social History Tobacco Use Smoking status: Former Packs/day: 1.00 Years: 16.00 Additional pack years: 0.00 Total pack years: 16.00 Types: Cigarettes Quit date: 12/04/2006 Years since quittin.8 Smokeless tobacco: Never Vaping Use Vaping Use: Never used Substance Use Topics Alcohol use: No Drug use: No Review of Systems Constitutional: Negative for activity change, appetite change, fatigue and fever. Eyes: Negative for photophobia, pain, discharge, redness, itching and visual disturbance. Respiratory: Negative for apnea, choking and chest tightness. Cardiovascular: Negative for chest pain, palpitations and leg swelling. Gastrointestinal: Negative for abdominal pain, diarrhea, nausea and vomiting. Musculoskeletal: Negative for arthralgias, back pain, myalgias and neck pain. Left wrist Skin: Negative for color change, pallor, rash and wound. Allergic/Immunologic: Negative for environmental allergies, food allergies and immunocompromised state. Neurological: Negative for dizziness, tingling, facial asymmetry, light-headedness, numbness and headaches. Hematological: Negative for adenopathy. Does not bruise/bleed easily. Psychiatric/Behavioral: Negative for agitation and behavioral problems. Objective BP 138/80 Pulse 87 Temp 36.8 C (98.2 F) (Tympanic) Resp 18 Wt 80.1 kg (176 lb 9.6 oz) LMP 07/25/2018 SpO2 97% BMI 35.67 kg/m Physical Exam Vitals and nursing note reviewed. Constitutional: General: She is not in acute distress. Appearance: Normal appearance. She is normal weight. She is not ill-appearing, toxic-appearing or diaphoretic. HENT: Head: Normocephalic and atraumatic. Right Ear: Ear canal and external ear normal. Left Ear: Ear canal and external ear normal. Nose: Nose normal. No congestion or rhinorrhea. Mouth/Throat: Mouth: Mucous membranes are moist. Pharynx: No oropharyngeal exudate or posterior oropharyngeal erythema. Eyes: General: Right eye: No discharge. Left eye: No discharge. Extraocular Movements: Extraocular movements intact. Conjunctiva/sclera: Conjunctivae normal. Pupils: Pupils are equal, round, and reactive to light. Cardiovascular: Rate and Rhythm: Normal rate and regular rhythm. Pulses: Normal pulses. Heart sounds: Normal heart sounds. No murmur heard. No friction rub. Pulmonary: Effort: Pulmonary effort is normal. No respiratory distress. Breath sounds: Normal breath sounds. No stridor. No wheezing, rhonchi or rales. Chest: Chest wall: No tenderness. Abdominal: General: Abdomen is flat. There is no distension. Palpations: Abdomen is soft. There is no mass. Tenderness: There is no abdominal tenderness. There is no right CVA tenderness, left CVA tenderness, guarding or rebound. Hernia: No hernia is present. Musculoskeletal: General: Tenderness present. No swelling, deformity or signs of injury. Left wrist: Tenderness present. No swelling, deformity, effusion, lacerations, bony tenderness or snuff box tenderness. Decreased range of motion. Cervical back: Normal range of motion and neck supple. No rigidity. Right lower leg: No edema. Left lower leg: No edema. Comments: Skin intact RP + 2 B/L +neuro +sensation Pain localized to wrist when performing ROM of wrist Shooting pain while performing ROM No scaphoid TTP No pain with palpation of fingers No pain with palpation of elbow Lymphadenopathy: Cervical: No cervical adenopathy. Skin: General: Skin is warm and dry. Capillary Refill: Capillary refill takes less than 2 seconds. Coloration: Skin is not jaundiced or pale. Findings: No bruising, erythema, lesion or rash. Neurological: General: No focal deficit present. Mental Status: She is alert and oriented to person, place, and time. Cranial Nerves: No cranial nerve deficit. Sensory: No sensory deficit. Motor: No weakness. Coordination: Coordination normal. Gait: Gait normal. Psychiatric: Mood and Affect: Mood normal. Behavior: Behavior normal. Thought Content: Thought content normal. Judgment: Judgment normal. Assessment and Plan ASSESSMENT/PLAN: 1. Left wrist pain - ICD9: 719.43, ICD10: M25.532 (primary diagnosis) Endorses a fall 8 days ago Was not seen at time of fall Presents with continued pain in wrist - XR WRIST GENERAL 3V PA/LAT/OBL LEFT-IMPRESSION: Vascular channel versus occult fracture in the first metacarpal bone. Consider follow-up. Attempted to place thumb spica splint, That created more pain for patient in wrist region Removed splint RICE therapy OTC analgesics F/U with ortho, appt made for next week Discussed red flags 2. Abnormal finding on diagnostic imaging of extremity - ICD9: 793.99, ICD10: R93.6 IMPRESSION: Vascular channel versus occult fracture in the first metacarpal bone. Consider follow-up. Albina Long APRN.SQL ANALYST documented in this encounter [facility] 09-29-2023 History of Present illness Narrative [facility] Refill Assessment Medication(s): Stelara Patient's current medication list and adherence status to current therapy were reviewed by [facility] clinical pharmacist to identify any new drug interactions or non-compliance to therapy. Therapy continues to be appropriate for disease, patient response, and medical condition. Verification of therapeutic benefit and effectiveness with current therapy was completed. Adverse events, barriers in adherence, and side effects were assessed and addressed if applicable. Will proceed with refill with no changes in therapy - patient progressing towards achieving therapeutic goals based on medication-specific laboratory parameters, disease state markers and outcomes. Ustekinumab (Stelara) - IL-12/23 Inhibitor CBC with differential (baseline); complete metabolic panel (baseline); tuberculosis (TB) screening prior to initiating and during therapy (chest X-ray if TB positive); hepatitis C virus/hepatitis B virus (HBV) screening prior to initiating (all patients), HBV carriers (during and for several months following therapy); HIV screening (baseline) (AAD/NPF [Menter 2019]); monitor for signs/symptoms of infection, posterior reversible encephalopathy syndrome, and squamous cell skin carcinoma. CBC with differential: WBC Date Value Ref Range Status 08/14/2023 4.95 3.70 - 11.00 k/uL Final RBC Date Value Ref Range Status 08/14/2023 5.23 (H) 3.90 - 5.20 m/uL Final Hemoglobin Date Value Ref Range Status 08/14/2023 15.1 11.5 - 15.5 g/dL Final Hematocrit Date Value Ref Range Status 08/14/2023 44.9 36.0 - 46.0 % Final MCV Date Value Ref Range Status 08/14/2023 85.9 80.0 - 100.0 fL Final MCH Date Value Ref Range Status 08/14/2023 28.9 26.0 - 34.0 pg Final MCHC Date Value Ref Range Status 08/14/2023 33.6 30.5 - 36.0 g/dL Final RDW-CV Date Value Ref Range Status 08/14/2023 12.8 11.5 - 15.0 % Final Platelet Count Date Value Ref Range Status 08/14/2023 241 150 - 400 k/uL Final MPV Date Value Ref Range Status 08/14/2023 11.2 9.0 - 12.7 fL Final Neutrophils % Date Value Ref Range Status 08/14/2023 41.2 % Final Lymphocytes % Date Value Ref Range Status 08/14/2023 45.7 % Final Monocytes % Date Value Ref Range Status 08/14/2023 8.1 % Final Eosin% Date Value Ref Range Status 12/21/2021 2.8 % Final Basophils % Date Value Ref Range Status 08/14/2023 1.0 % Final Abs Neut Date Value Ref Range Status 08/14/2023 2.04 1.45 - 7.50 k/uL Final Abs [place] Date Value Ref Range Status 08/14/2023 0.40 <0.87 k/uL Final Abs Eosin Date Value Ref Range Status 08/14/2023 0.18 <0.46 k/uL Final Abs Baso Date Value Ref Range Status 08/14/2023 0.05 <0.11 k/uL Final CMP: Albumin Date Value Ref Range Status 08/14/2023 4.2 3.9 - 4.9 g/dL Final Calcium, Total Date Value Ref Range Status 08/14/2023 10.1 8.5 - 10.2 mg/dL Final Bilirubin, Total Date Value Ref Range Status 12/15/2022 0.6 0.2 - 1.3 mg/dL Final Alkaline Phosphatase Date Value Ref Range Status 12/20/2022 107 34 - 123 U/L Final AST Date Value Ref Range Status 08/14/2023 21 13 - 35 U/L Final ALT Date Value Ref Range Status 08/14/2023 29 7 - 38 U/L Final Glucose Date Value Ref Range Status 08/14/2023 156 (H) 74 - 99 mg/dL Final Comment: The [place] [employer] (ADA) provides guidance for cutoff values for fasting glucose and random glucose. The ADA defines fasting as no caloric intake for at least 8 hours. Fasting plasma glucose results between 100 to 125 [...] Standards of Medical Care in Diabetes 2016, [place] [employer]. Diabetes Care. 2016.39(Suppl 1). BUN Date Value Ref Range Status 08/14/2023 7 7 - 21 mg/dL Final Creatinine Date Value Ref Range Status 08/14/2023 0.69 0.58 - 0.96 mg/dL Final Sodium Date Value Ref Range Status 08/14/2023 140 136 - 144 mmol/L Final Potassium Date Value Ref Range Status 08/14/2023 4.4 3.7 - 5.1 mmol/L Final Chloride Date Value Ref Range Status 08/14/2023 103 97 - 105 mmol/L Final CO2 Date Value Ref Range Status 08/14/2023 22 22 - 30 mmol/L Final Anion Gap Date Value Ref Range Status 08/14/2023 15 9 - 18 mmol/L Final eGFR- Date Value Ref Range Status 12/21/2021 >60 Final Estimated Glomerular Filtration Rate Date Value Ref Range Status 08/14/2023 107 >=60 mL/min/1.73m Final Comment: Estimated Glomerular Filtration Rate (eGFR) is calculated using the 2020 CKD-EPI creatinine equation. This equation utilizes serum creatinine, sex, and age as parameters. The creatinine assay has traceable calibration to isotope dilution-mass spectrometry. Refer to KDIGO guidelines for clinical interpretation. In patients with unstable renal function, e.g. those with acute kidney injury, the eGFR may not accurately reflect actual GFR. HBsAg Date Value Ref Range Status 06/18/2021 Negative Negative Final Hep B Surface Ab, Qual Date Value Ref Range Status 04/19/2022 Negative Negative Final Comment: No evidence of current or past infection with Hepatitis B virus. Should recent infection be suspected, repeat testing may be considered 3-4 weeks after this draw. Hepatitis B Core Ab, Total Date Value Ref Range Status 04/19/2022 Negative Negative Final Comment: No evidence of current or past infection with Hepatitis B virus. Should recent infection be suspected, repeat testing may be considered 3-4 weeks after this draw. Hep C Antibody IA Date Value Ref Range Status 04/19/2022 Negative Negative Final Comment: The result suggests no evidence of active infection with Hepatitis C virus. Should recent infection be suspected, repeat testing may be considered 4-6 weeks after this draw. TB Result Date Value Ref Range Status 04/19/2022 Negative Final No results found for: HIV1AB Current Outpatient Medications on File Prior to Visit Medication Sig pantoprazole DR (PROTONIX) 40 mg tablet Take 1 tablet by mouth once daily. pregabalin (LYRICA) 100 mg capsule Take 1 capsule by mouth two times a day for 30 days. clobetasol (TEMOVATE) 0.05 % ointment Apply to affected area two times a day. Face. Feet. Two weeks on and two weeks off, per [facility]. insulin glargine (LANTUS SOLOSTAR U-100 INSULIN) 100 unit/mL (3 mL) INJECT 20 UNITS UNDER THE SKIN EVERY MORNING OZEMPIC 2 mg/dose (8 mg/3 mL) pen injector INJECT 2MG UNDER THE SKIN ONE TIME WEEKLY Magnesium Oxide 500 mg cap Take 500 mg by mouth. Blood-Glucose Sensor (FREESTYLE GIANFRANCO 3 SENSOR) matilda 1 Kit every 2 weeks. IDDM.DM2 Insulin Lynch, Disposable, (DROPLET PEN NEEDLE) 32 gauge x 5/32 INJECT ONE TIME DAILY fexofenadine HCl (LELA ORAL) Take by mouth. glucagon (GVOKE) 1 mg/0.2 mL injection Inject 0.2 mL subcutaneously as needed. ustekinumab (STELARA) 45 mg/0.5 mL sub-Q syringe Inject 45 mg (1 syringe) subcutaneously at weeks 0 and 4 followed by every 12 weeks thereafter. levonorgestrel (MIRENA) 20 mcg/24 hours (8 yrs) 52 mg IUD 1 Each by INTRAUTERINE route as directed. Lancing Device with Lancets ACCU CHEK FASTCLIX LANCET *DEVICE* use to check blood glucose up to 2 times per day as instructed. E11.9 Lancets (ACCU-CHEK FASTCLIX LANCET DRUM) lancets Use as instructed to check blood glucose up to 2 times daily. E11.9 blood sugar diagnostic (FREESTYLE PRECISION DAVID STRIPS) test strip Use as instructed E11.9 oxyCODONE-acetaminophen (PERCOCET) 5-325 mg tablet TAKE 1 TABLET BY MOUTH 3 TIMES A DAY NEEDED FOR 28 DAYS flash glucose sensor (FREESTYLE GIANFRANCO 2 SENSOR) kit Apply new sensor every fourteen (14) days to upper arm. Dx E11.9 rizatriptan (MAXALT VENEER JOINER) 10 mg disintegrating tablet Take 1 tablet by mouth as needed for migraine headache (see administration instructions). May repeat in 2 hours if needed vits62/FA/om3/dha/epa ( GUMMY ORAL) Take 2 Doses by mouth once daily. Blood-Glucose Meter (ACCU-CHEK DIANNE) Test blood sugar(s) 2 times daily. Dx: Type 2 DM - Controlled E11.9 Insulin: No, Accu-check brand covered by insurance Ascorbic Acid 500 mg chew Take 1,000 mg by mouth once daily. With rosehips elderberry fruit (ELDERBERRY ORAL) Take by mouth. COMPOUNDED PRESCRIPTION 1. V44.2 Ileostomy status (HCC) (primary diagnosis) 2. 555.1 Regional enteritis of large intestine ([facility]) Ileostomy Supplies. 1. Pouches, 2. Planges, 3. Felipe seals, 4. Stoma adhesive, 5. Stoma powder, 6. Skin preps, 7. Adhesive remover wipes. Dispense 1 year supplies. tiZANidine (ZANAFLEX) 4 mg tablet Take by mouth. . Takes 1 tablet at bedtime. No current facility-administered medications on file prior to visit. ALLERGIES Allergen Reactions Azithromycin Unknown thinks a rash Dilaudid [Hydromorp* Swelling migraines Levemir [Insulin De* Other: See Comments Urine turned dark and smelly Methadone Swelling migraine Morphine Swelling migraines Remicade [Inflixima* Intolerance, Rash broke out in blisters with the 6th dose. Ultram [Tramadol Hc* Swelling migraines Canceled Appointments: Future Appointments Date Time Provider Department Center 11/14/2023 11:20 AM Panda Harrison MD [facility] 12/22/2023 11:00 AM Pharmacist, [facility] 2 [facility] None 2023 10:00 AM Scott Gold MD [facility] 01/23/2024 9:00 AM Grayson Phan MD INTMWS [facility] [place] RPh Clinical Pharmacist - Biologics: Allergy, Immunology, and Inflammatory [facility] ; Pool: P [facility] Pool #: [id number] Feeder Operator Assessment Patient confirmed: Yes Med/dose confirmed: Yes Supplies needed: No supplies needed Missed doses: No Estimated days supply on hand: 0 Next cycle/dose due: 10/09/23 Copay amount: 0 Payment confirmed: Yes Delivery method: FedEx Signature required: Waived on patient request Delivery address: [address] [place] [address] Delivery date: 10/04/23 Questions or concerns for the pharmacist?: No [facility] Visit Assessment - Inflammatory Conditions: Assessment to use: Refill Vaccination Assessment: Date of influenza vaccination reminder: 12/22/2022 Date of most recent vaccination assessment: 12/22/2022 Treatment Plan Information: Treatment Plan Information: Seronegative spondyloarthropathy Crohn's disease with complication, unspecified gastrointestinal tract location (HCC) Osteoarthritis of spine, unspecified spinal osteoarthritis complication status, unspecified spinal region Stelara - Inject 45 mg (1 syringe) subcutaneously at weeks 0 and 4 followed by every 12 weeks thereafter. Est. Tx Plan Start Date: 12/23/2022 Estimated Treatment Duration: Until loss of efficacy and/or no longer tolerated. Refill Assessment: Concurrent med therapy and DMARD screening: Yes Assessment of injection issues: Yes Screening for infection: Yes Adverse reactions and mitigation: Yes COPD monitoring (Orencia): N/A Assessment of efficacy: Yes Shira Matta CPhT, Inflammatory/Allergy [facility] [phone] documented in this encounter [facility] 09-25-2023 History of Present illness Narrative Radiology Service Progress Note PATIENT NAME: Sid Lezama DATE OF SERVICE: September 25, 2023 TIME: 9:50 AM PATIENT IDENTITY VERIFICATION COMPLETED USING TWO (2) IDENTIFIERS: Name and Date of confirmed by patient verbally. FALL SCREENING: Has the patient had 2 falls in the last year or 1 fall with injury or currently using an Ambulatory Assistive Device (Walker, Cane, Wheelchair, Crutches, etc.)? No PATIENT GENDER DATA: Female. status: : No status: NO. PATIENT RELEVANT IMPLANT DATA REVIEWED: Not Applicable RADIOLOGY DEPARTMENT: Bone Density PERIPHERAL IV DATA: Not applicable SIGNED BY: RT Ozzie(R) September 25, 2023 9:50 AM documented in this encounter [facility] 09-18-2023 Miscellaneous Notes Pt calling requesting refill on her Lyrica. Per both pt request today and Dr. Phan's last OV note: When medication nearing refill (early September), call for dose reduction 100 mg BID x 1 month, then 50% reduction every month until zero. Last OV 08/11/23 Next OV 01/23/24 Pt will call in a month with update and need for f/u refill. Pt requests RX go to [facility]. documented in this encounter [facility] 08-11-2023 History of Present illness Narrative This note was created using [employer]. Subjective Sid Lezama is a 47 year old female here for follow up. She was seeing multiple specialists. She just saw [facility] dermatology for skin biopsies. She was prescribed clobetasol ointment for psoriasis mainly of the feel but also the face and forehead. She also partially avulsed her right thumbnail and was prescribed antibiotics. She was being considered for parathyroid exploration/excision due to hypercalcemia. Endocrinology was also managing diabetes mellitus. She ran out of Lyrica for several days, and got ill with withdrawal symptoms. She reduced Lyrica to 150 mg twice a day About 1 month ago. She wants to be weaned off the medication. Review of Systems Constitutional: Negative for fever and unexpected weight change. Respiratory: Negative for cough, chest tightness and shortness of breath. Cardiovascular: Negative. Gastrointestinal: Negative. Neurological: Negative. 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, With Long-Term Current Use of Insulin (Hcc) Nuclear Sclerosis of Both Eyes Vitreous Floaters of Both Eyes Bone Loss Corticosteroids Adverse Reaction Gastroesophageal Reflux Disease Without Esophagitis Dry Eye Syndrome of Both Eyes Obesity, Class II, Bmi 35-39.9 Seronegative Spondyloarthropathy PAST SURGICAL HISTORY Procedure Laterality Date ADENOIDECTOMY PRIMARY <AGE 11 1986 Adenoidectomy ARTHROSCOPY KNEE DIAGNOSTIC W/WO SYNOVIAL BX SPX 1989 Arthroscopy, knee, left [facility] INCL FLUOR GDNCE DX W/CELL WASHG SPX 01/2007 Bronchoscopy EGD 05/02/2023 EPIDURAL 2011 multiple ones done by Dr. Beckett ILEOSCOPY 05/02/2023 PAST SURGICAL HISTORY OF 06/2000 ILEOSTOMY/COLECTOMY PAST SURGICAL HISTORY OF 1993 CRYOCAUTERY/ MILD DYSPLASIA PAST SURGICAL HISTORY OF 03/2006 Abdominal abscess with anal fistula PRCTECT COMPL W/STOT/TOT COLCT W/VENEER JOINER BXS 12/05/2006 AP endoanal proctectomy SHOULDER ARTHROSCOPY/SURGERY Left 05/06/2020 Rotator cuff debridement, subacromial decompression/arthroplasty TONSILLECTOMY PRIMARY/SECONDARY <AGE 11 1986 Tonsillectomy Social History Tobacco Use Smoking status: Former Packs/day: 1.00 Years: 16.00 Additional pack years: 0.00 Total pack years: 16.00 Types: Cigarettes Quit date: 12/04/2006 Years since quittin.6 Smokeless tobacco: Never Vaping Use Vaping Use: Never used Substance Use Topics Alcohol use: No Drug use: No Current Outpatient Medications Medication Sig pregabalin (LYRICA) 150 mg capsule Take 1 capsule by mouth three times daily for [address] (PROTONIX) 40 mg tablet Take 1 tablet by mouth once daily. insulin glargine (LANTUS SOLOSTAR U-100 INSULIN) 100 unit/mL (3 mL) INJECT 20 UNITS UNDER THE SKIN EVERY MORNING OZEMPIC 2 mg/dose (8 mg/3 mL) pen injector INJECT 2MG UNDER THE SKIN ONE TIME WEEKLY phenazopyridine (PYRIDIUM) 200 mg tablet Take 1 tablet by mouth three times daily as needed. Magnesium Oxide 500 mg cap Take 500 mg by mouth. Blood-Glucose Sensor (FREESTYLE GIANFRANCO 3 SENSOR) matilda 1 Kit every 2 weeks. IDDM.DM2 Insulin Lynch, Disposable, (DROPLET PEN NEEDLE) 32 gauge x 5/32 INJECT ONE TIME DAILY fexofenadine HCl (LELA ORAL) Take by mouth. glucagon (GVOKE) 1 mg/0.2 mL injection Inject 0.2 mL subcutaneously as needed. ustekinumab (STELARA) 45 mg/0.5 mL sub-Q syringe Inject 45 mg (1 syringe) subcutaneously at weeks 0 and 4 followed by every 12 weeks thereafter. levonorgestrel (MIRENA) 20 mcg/24 hours (8 yrs) 52 mg IUD 1 Each by INTRAUTERINE route as directed. clobetasol (TEMOVATE) 0.05 % cream Apply to affected area twice daily. Sparingly to feet, knees, palms. Lancing Device with Lancets ACCU CHEK FASTCLIX LANCET *DEVICE* use to check blood glucose up to 2 times per day as instructed. E11.9 Lancets (ACCU-CHEK FASTCLIX LANCET DRUM) lancets Use as instructed to check blood glucose up to 2 times daily. E11.9 blood sugar diagnostic (FREESTYLE PRECISION DAVID STRIPS) test strip Use as instructed E11.9 oxyCODONE-acetaminophen (PERCOCET) 5-325 mg tablet TAKE 1 TABLET BY MOUTH 3 TIMES A DAY NEEDED FOR 28 DAYS flash glucose sensor (FREESTYLE GIANFRANCO 2 SENSOR) kit Apply new sensor every fourteen (14) days to upper arm. Dx E11.9 rizatriptan (MAXALT VENEER JOINER) 10 mg disintegrating tablet Take 1 tablet by mouth as needed for migraine headache (see administration instructions). May repeat in 2 hours if needed vits62/FA/om3/dha/epa ( GUMMY ORAL) Take 2 Doses by mouth once daily. fluticasone (FLONASE) 50 mcg/actuation nasal spray Use 2 Sprays in each nostril once daily. Blood-Glucose Meter (ACCU-CHEK DIANNE) Test blood sugar(s) 2 times daily. Dx: Type 2 DM - Controlled E11.9 Insulin: No, Accu-check brand covered by insurance Ascorbic Acid 500 mg chew Take 1,000 mg by mouth once daily. With rosehips elderberry fruit (ELDERBERRY ORAL) Take by mouth. COMPOUNDED PRESCRIPTION 1. V44.2 Ileostomy status ([facility]) (primary diagnosis) 2. 555.1 Regional enteritis of large intestine ([facility]) Ileostomy Supplies. 1. Pouches, 2. Planges, 3. Felipe seals, 4. Stoma adhesive, 5. Stoma powder, 6. Skin preps, 7. Adhesive remover wipes. Dispense 1 year supplies. tiZANidine (ZANAFLEX) 4 mg tablet Take by mouth. . Takes 1 tablet at bedtime. No current facility-administered medications for this visit. Objective BP 116/78 Pulse 90 Resp 18 Wt 75.8 kg (167 lb) LMP 07/25/2018 SpO2 100% BMI 33.73 kg/m Physical Exam Constitutional: General: She is not in acute distress. Cardiovascular: Rate and Rhythm: Normal rate and regular rhythm. Heart sounds: No murmur heard. No gallop. Pulmonary: Breath sounds: Normal breath sounds. Musculoskeletal: Right lower leg: No edema. Left lower leg: No edema. Comments: Right thumb with paronychial swelling, no drainage. Neurological: Mental Status: She is alert. Assessment and Plan 1. Fibromyalgia - ICD9: 729.1, ICD10: M79.7 (primary diagnosis) Patient requested weaning off medication. - PREGABALIN 150 MG CAPSULE. One capsule BID. When medication nearing refill (early September), call for dose reduction 100 mg BID x 1 month, then 50% reduction every month until zero. 2. Type 2 diabetes mellitus treated with insulin ([facility]) - ICD9: 250.00, V58.67, ICD10: E11.9, Z79.4 - Controlled - Continue current medications - ALBUMIN/CREAT RATIO RND UR 3. Mixed hyperlipidemia - ICD9: 272.2, ICD10: E78.2 - Control undetermined, due for labs - LIPID PANEL BASIC 4. Non-alcoholic fatty liver disease - ICD9: 571.8, ICD10: K76.0 Monitored. 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 - IRON + TIBC Grayson Phan MD documented in this encounter [facility] 07-24-2023 History of Present illness Narrative HISTORY Mrs Sid Lezama is a 47 year old female here for follow-up of Type 2 DM Dyslipidemia Fatty liver since 17 y/o per patient; elevated liver enzymes Steroid treatment Low bone mass Primary hyperparathyroidism - hypercalcemia, hypercalciuria DIABETES Diagnosed DM in 2006, was having reactive hypoglycemia Complications/comorbidities: retinal hole +neuropathy from cervical problems STEROIDS/BONE Has ileostomy bag Has Crohn's - no steroids for this, has ileostomy Steroid intake see above under diabetes Has primary hyperparathyroidism - hypercalcemia, hypercalciuria BMD done in 04/2017 showed lowest Z score -2.3 BMD in 2020 Lowest T score - 1.8 Pertinent decrease (though different machine? bone mineral density of the femoral neck is 0.635 ) 10-year Fracture Risk (FRAX): Major osteoporotic fracture risk 6.% Hip fracture risk 0.9% BUT has hyperparathyroidism Prolia discussed briefly in the past as possibility but then PTH seemed to be a player so deferred Prolia Saw Dr. Teresa 2022 for parathyroid surgery eval Patient deferred, wants holistic approach History of relatedmedications: Metformin started first Januvia started 2011 Glyburide caused lows 50s Lantus Januvia 50 mg daily - stopped when Trulicity started Nov 2018 Trulicity 1.5 mg, mild abd discomfort after eating Farxiga 5 mg - getting yeast infections, stopped Was on atorvastatin, stopped, wanting to go holistic Red yeast rice - stopped Metformin 1000 mg BID - she wanted to come off this and was able Current related medications: Lantus - 20 units morning - has not taken for a couple of months Ozempic 2 mg weekly - not taking regularly Calcium intake in diet/supplements: takes nutritional shake, yogurt, cheese Vitamin D intake: has supplements from holistic provider IUD Mirena 2022 last insertion Supplements from holistic provider Freestyle Gianfranco 2 steroid injections to neck (C7) and back L4, L5, S1, S5 - less often now, last one nov 2022 Weight loss Joint pains, says for years CGM download - see procedure note CGM interpretation: Hyperglycemia and fasting and throughout the day Peaks after breakfast then comes back down No hypoglycemias Recommendation: see Assessment/Plan below- reflects lack of basal insulin as she has been skipping PMHx/PSHx: R elbow surgery tendon 01/2023 Shoulder surgery 06/2020 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, 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 Reflux, changing ranitidine to other because of recall Neg for pancreatitis Crohn's, ileostomy Ovarian cyst BARNES RA Fibromyalgia 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 FamHx: Neg thyroid CA Crohn's - cousins pat DM - grandparents HTN- mother CAD- maternal grandma REVIEW OF SYSTEMS weight loss LLQ pain last night, resolved on its own, says similar to previous when had ovarian cysts Answers submitted by the patient for this visit: Core Review of Systems (Submitted on 07/24/2023) Fever : No Night Sweats: No Recent Unintentional Weight Change: No Nasal Congestion: No Hearing Loss: No Vision Disturbance: No A Cough: No Difficulty Breathing?: No Chest Pain: No Irregular Heart Beat: No Leg Swelling: No Nausea: No Diarrhea: Yes Black Tarry Stools: No Difficulty Urinating?: No Awaken at Night More Than Once to Urinate?: Yes Joint Pain or Stiffness: Yes Muscle Aches: Yes Leg or Foot Discomfort at Night?: No A Rash: No Dizziness: No Headaches: Yes Memory Loss: No Seizures: No PHYSICAL EXAMINATION BP 117/72 Pulse 78 Wt 76.7 kg (169 lb) LMP 07/25/2018 BMI 33.56 kg/m Body mass index is 33.56 kg/m . GENERAL: not in distress, well-appearing HEENT: anicteric sclerae, non-injected conjunctivae ABD: ileostomy bag RLQ, neg tenderness/ neg guarding on LLQ MUSCULOSKELETAL: no gross deformities, no fasciculations SKIN: dry, no cyanosis NEUROLOGIC: alert, oriented LABS REVIEWED A1c today 7.4 Component Latest Ref Rng & Units 05/24/2022 05/24/2022 08/09/2022 10/13/2022 12/20/2022 10:15 AM 10:18 AM Glucose 74 - 99 mg/dL 82 BUN 7 - 21 mg/dL 9 Creatinine 0.58 - 0.96 mg/dL 0.60 Sodium 136 - 144 mmol/L 140 Potassium 3.7 - 5.1 mmol/L 3.4 (L) Chloride 97 - 105 mmol/L 99 CO2 22 - 30 mmol/L 30 Anion Gap 9 - 18 mmol/L 11 Calcium 8.5 - 10.2 mg/dL 10.5 (H) eGFR >=60 mL/min/1.73m 112 Cholesterol, Total <200 mg/dL 169 Triglyceride <150 mg/dL 123 HDL Cholesterol >39 mg/dL 51 Non HDL Cholesterol <130 mg/dL 118 Fasting Time hrs 12 VLDL Cholesterol <30 mg/dL 25 TC:HDL Ratio <5.10 3.31 LDL Cholesterol <100 mg/dL 93 LDL:HDL Ratio <2.54 1.82 Albumin 3.9 - 4.9 g/dL 4.3 4.5 Bilirubin, Total 0.2 - 1.3 mg/dL 0.4 Bilirubin, Conjug <0.2 mg/dL <0.2 Alkaline Phosphatase 34 - 123 U/L 130 (H) 107 AST 13 - 35 U/L 38 (H) ALT 7 - 38 U/L 49 (H) Protein, Total 6.3 - 8.0 g/dL 6.7 Creatinine 24 hr Ur 0.800 - 1.800 g/24 hr 1.331 Period hours 24 24 Urine Volume 24 hour mL 1,150 1,150 Calcium, 24 Hr Urine 100.0 - 300.0 mg/24 hr 319.7 (H) Creatinine, Ur Random (UCRR) 20.0 - 300.0 mg/dL 120.1 Albumin, Urine Random mg/L <12.0 Albumin/Creat Ratio <30 mg/g <10 Hemoglobin A1C 4.3 - 5.6 % 5.2 Estimated Average Glucose mg/dL 103 Hemoglobin A1C (POCT) 4.2 - 5.6 % 6.4 Phosphorus 2.7 - 4.8 mg/dL 3.0 Vit D1,25 Dihydroxy 19.9 - 79.3 pg/mL 151.0 (H) Vitamin D 25 Hydroxy 31.0 - 80.0 ng/mL 62.6 PTH, Intact 15 - 65 pg/mL 51 IMAGING REVIEWED Bone density 2020 LUMBAR SPINE: The bone mineral density from L1 through L4 is 0.846 grams per square centimeter which yields a T-score of -1.8. The bone mineral density previously measured 0.954 g/sq cm. LEFT HIP: The bone mineral density of the total region of the hip is 0.894 grams per square centimeter which yields a T-score of -0.4. The bone mineral density previously measured 0.909 g/sq cm. LEFT FEMORAL NECK: The bone mineral density of the femoral neck is 0.635 grams per square centimeter which yields a T-score of -1.9. The bone mineral density previously measured 0.827 g/sq cm. 10-year Fracture Risk (FRAX): Major osteoporotic fracture risk 6.% Hip fracture risk 0.9% PAST MEDICAL HISTORY Diagnosis Date Anemia, unspecified 01/10/2007 Carrier of genetic disorder 2012 Carrier of hereditary hemochromatosis Crohn's disease (HCC) Diabetes 01/31/2008 Dysthymic disorder Depression (non-psychotic) Hypercalcemia 05/19/2021 Ileostomy status (HCC) 09/28/2007 Lumbago 01/10/2007 Myalgia and myositis, unspecified Pain management Dr Stern Nonalcoholic fatty liver disease 08/24/2007 Other and unspecified hyperlipidemia 01/10/2007 PMH - PAST MEDICAL HISTORY OF Cx scarred to post vag wall/difficult exam Pneumonia, organism unspecified(486) 01/10/2007 Regional enteritis of large intestine (HCC) 08/07/2006 Retention of urine, unspecified 01/01/2007 Rheumatoid arthritis(714.0) Dr. Mc, [facility] Type II or unspecified type diabetes mellitus without mention of complication, not stated as uncontrolled Ureterolithiasis 07/18/2019 PAST SURGICAL HISTORY Procedure Laterality Date ADENOIDECTOMY PRIMARY <AGE 11 1986 Adenoidectomy ARTHROSCOPY KNEE DIAGNOSTIC W/WO SYNOVIAL BX SPX 1989 [facility], [facility] DX W/CELL WASHG SPX January 2007 Bronchoscopy EPIDURAL 2011 multiple ones done by Dr. Beckett PAST SURGICAL HISTORY OF 06/2000 ILEOSTOMY/COLECTOMY PAST SURGICAL HISTORY OF 1993 CRYOCAUTERY/ MILD DYSPLASIA PAST SURGICAL HISTORY OF March 2006 Abdominal abscess with anal fistula PRCTECT COMPL W/STOT/TOT COLCT W/VENEER JOINER BXS 2006 AP endoanal proctectomy SHOULDER ARTHROSCOPY/SURGERY Left 05/06/2020 Rotator cuff debridement, subacromial decompression/arthroplasty TONSILLECTOMY PRIMARY/SECONDARY <AGE 11 1986 Tonsillectomy Social History Tobacco Use Smoking status: Former Packs/day: 1.00 Years: 16.00 Additional pack years: 0.00 Total pack years: 16.00 Types: Cigarettes Quit date: 12/04/2006 Years since quittin.6 Smokeless tobacco: Never Vaping Use Vaping Use: Never used Substance Use Topics Alcohol use: No Drug use: No FAMILY HISTORY Problem Relation Age of Onset Alcohol/Drug Mother Hypertension Mother COPD other (vascular disease) Mother other (sleep apnea) Mother other (heart murmur) Mother Alcohol/Drug Father Cancer Father liver Asthma Brother Hypertension Daughter Diabetes Maternal Grandmother Stroke Maternal Grandmother Heart Maternal Grandmother Emphysema Paternal Grandmother Diabetes Paternal Grandfather Macular Degen Paternal Grandfather Anesthesia Problems No Family History Current Outpatient Medications Medication Sig pregabalin (LYRICA) 150 mg capsule Take 1 capsule by mouth three times daily for [address] (PROTONIX) 40 mg tablet Take 1 tablet by mouth once daily. insulin glargine (LANTUS SOLOSTAR U-100 INSULIN) 100 unit/mL (3 mL) INJECT 20 UNITS UNDER THE SKIN EVERY MORNING OZEMPIC 2 mg/dose (8 mg/3 mL) pen injector INJECT 2MG UNDER THE SKIN ONE TIME WEEKLY phenazopyridine (PYRIDIUM) 200 mg tablet Take 1 tablet by mouth three times daily as needed. Magnesium Oxide 500 mg cap Take 500 mg by mouth. Blood-Glucose Sensor (FREESTYLE GIANFRANCO 3 SENSOR) matilda 1 Kit every 2 weeks. IDDM.DM2 Insulin Lynch, Disposable, (DROPLET PEN NEEDLE) 32 gauge x 5/32 INJECT ONE TIME DAILY fexofenadine HCl (LELA ORAL) Take by mouth. glucagon (GVOKE) 1 mg/0.2 mL injection Inject 0.2 mL subcutaneously as needed. ustekinumab (STELARA) 45 mg/0.5 mL sub-Q syringe Inject 45 mg (1 syringe) subcutaneously at weeks 0 and 4 followed by every 12 weeks thereafter. levonorgestrel (MIRENA) 20 mcg/24 hours (8 yrs) 52 mg IUD 1 Each by INTRAUTERINE route as directed. Lancing Device with Lancets ACCU CHEK FASTCLIX LANCET *DEVICE* use to check blood glucose up to 2 times per day as instructed. E11.9 Lancets (ACCU-CHEK FASTCLIX LANCET DRUM) lancets Use as instructed to check blood glucose up to 2 times daily. E11.9 blood sugar diagnostic (FREESTYLE PRECISION DAVID STRIPS) test strip Use as instructed E11.9 oxyCODONE-acetaminophen (PERCOCET) 5-325 mg tablet TAKE 1 TABLET BY MOUTH 3 TIMES A DAY NEEDED FOR 28 DAYS flash glucose sensor (FREESTYLE GIANFRANCO 2 SENSOR) kit Apply new sensor every fourteen (14) days to upper arm. Dx E11.9 rizatriptan (MAXALT VENEER JOINER) 10 mg disintegrating tablet Take 1 tablet by mouth as needed for migraine headache (see administration instructions). May repeat in 2 hours if needed vits62/FA/om3/dha/epa ( GUMMY ORAL) Take 2 Doses by mouth once daily. fluticasone (FLONASE) 50 mcg/actuation nasal spray Use 2 Sprays in each nostril once daily. Blood-Glucose Meter (ACCU-CHEK DIANNE) Test blood sugar(s) 2 times daily. Dx: Type 2 DM - Controlled E11.9 Insulin: No, Accu-check brand covered by insurance Ascorbic Acid 500 mg chew Take 1,000 mg by mouth once daily. With rosehips elderberry fruit (ELDERBERRY ORAL) Take by mouth. COMPOUNDED PRESCRIPTION 1. V44.2 Ileostomy status ([facility]) (primary diagnosis) 2. 555.1 Regional enteritis of large intestine ([facility]) Ileostomy Supplies. 1. Pouches, 2. Planges, 3. Felipe seals, 4. Stoma adhesive, 5. Stoma powder, 6. Skin preps, 7. Adhesive remover wipes. Dispense 1 year supplies. tiZANidine (ZANAFLEX) 4 mg tablet Take by mouth. . Takes 1 tablet at bedtime. clobetasol (TEMOVATE) 0.05 % cream Apply to affected area twice daily. Sparingly to feet, knees, palms. No current facility-administered medications for this visit. ALLERGIES Allergen Reactions Azithromycin Unknown thinks a rash Dilaudid [Hydromorp* Swelling migraines Levemir [Insulin De* Other: See Comments Urine turned dark and smelly Methadone Swelling migraine Morphine Swelling migraines Remicade [Inflixima* Intolerance, Rash broke out in blisters with the 6th dose. 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 Follow-up: 1 mo after bone density (E11.9, Z79.4) Type 2 diabetes mellitus treated with insulin (HCC) (primary encounter diagnosis) Comment: Plan: HEMOGLOBIN A1C (POC), BASIC METABOLIC PNL (E21.0) Primary hyperparathyroidism (HCC) Comment: Plan: DXA-AXIAL SKELETON, DXA-FOREARM SKELETON Contact us sooner than recommended follow-up if with issues/concerns. Follow-up with primary care provider and other specialists for issues not explained by the condition that the patient is seeing me for. Sophy Harrison MD, MPH July 24, 2023 12:32 PM I spent a total of 40 minutes on the date of the service which included preparing to see the patient, [id number] patient care, completing clinical documentation, obtaining and/or reviewing separately obtained history, performing a medically appropriate examination, counseling and educating the patient/family/caregiver, ordering medications, tests, or procedures, independently interpreting results (not separately reported), and communicating results to the patient/family/caregiver. documented in this encounter [facility] 07-24-2023 Procedure note Procedure(s): EXTERNAL WATCH HAIRSPRING ASSEMBLER, CGM SYS Images from the original note were not included. documented in this encounter [facility] 07-24-2023 Instructions Panda Harrison MD - 07/24/2023 9:00 AM EDT Bone density in or October Orders are in See me a few weeks after that If getting kidney stone will try HCTZ Thank you for seeing us today. Please contact me/my office: if you do not receive a note from me summarizing your lab or imaging within a week of your seeing/receiving your results. 2. sooner than the recommended follow-up if with issues/concerns. 3. If you do not see lab/imaging orders prior to your next visit Please see your primary care provider and other specialists for issues not explained by the condition you are seeing me for. Sophy Harrison MD, MPH Office [phone] Appointments [phone] or by using [employer] [facility] number: [phone] BONE MINERAL DENSITY PATIENT INSTRUCTIONS ======= Bone mineral density testing measures the amount [...] you can resume your usual activities immediately. documented in this encounter [facility] 07-06-2023 History of Present illness Narrative [facility] Refill Assessment Medication(s): Stelara Patient's current medication list and adherence status to current therapy were reviewed by Specialty Pharmacy clinical pharmacist to identify any new drug interactions or non-compliance to therapy. Therapy continues to be appropriate for disease, patient response, and medical condition. Verification of therapeutic benefit and effectiveness with current therapy was completed. Adverse events, barriers in adherence, and side effects were assessed and addressed if applicable. Will proceed with refill with no changes in therapy - patient progressing towards achieving therapeutic goals based on medication-specific laboratory parameters, disease state markers and outcomes. Feeder Operator Assessment Patient confirmed: Yes Med/dose confirmed: Yes Supplies needed: No supplies needed Missed doses: No Estimated days supply on hand: 0 Next cycle/dose due: 07/17/23 Copay amount: 0 Payment confirmed: Yes Delivery method: FedEx Signature required: Waived on patient request Delivery address: [address] [place] [address] Delivery date: 07/12/23 Questions or concerns for the pharmacist?: No (Can make note for delivery and installation subcontractor it's ok to leave at [facility] (mom's)) [facility] Visit Assessment - Inflammatory Conditions: Assessment to use: Refill Vaccination Assessment: Date of influenza vaccination reminder: 12/22/2022 Date of most recent vaccination assessment: 12/22/2022 Treatment Plan Information: Treatment Plan Information: Seronegative spondyloarthropathy Crohn's disease with complication, unspecified gastrointestinal tract location (HCC) Osteoarthritis of spine, unspecified spinal osteoarthritis complication status, unspecified spinal region Stelara - Inject 45 mg (1 syringe) subcutaneously at weeks 0 and 4 followed by every 12 weeks thereafter. Est. Tx Plan Start Date: 12/23/2022 Estimated Treatment Duration: Until loss of efficacy and/or no longer tolerated. Shira Matta CPhT, Inflammatory/Allergy [facility] [phone] documented in this encounter [facility] 05-29-2023 Miscellaneous Notes Requester: Pharmacy Patients last Endocrinology visit occurred 03/21/23 Follow-up evaluation has been established 07/24/23. Requested Prescriptions Pending Prescriptions Disp Refills LANTUS SOLOSTAR U-100 INSULIN 100 unit/mL (3 mL) [Pharmacy Med Name: LANTUS SOLOSTAR 100 UNIT/ML Solution Pen-injector] 30 mL 0 Sig: INJECT 20 UNITS UNDER THE SKIN EVERY MORNING If patient is due for an appointment please route to provider for refill consideration and also to the endo scheduling pool. PSS NOTE: Patient needs scheduled appointment No documented in this encounter [facility] 05-29-2023 Miscellaneous Notes Addended by: GILMER KUMAR on: 05/29/2023 12:52 PM Modules accepted: Orders documented in this encounter [facility] 05-29-2023 History of Present illness Narrative Supervisor Blood offered: Patient declines. Sid is a 47 year old who presents for an annual gynecologic exam without complaints. Recently treated for UTI. Menses: no menses - Mirena IUD. Contraception: IUD HPV vaccine: N/A Last Pap: 12/30/2019 normal HPV: 12/26/2019 negative History of abnormal pap: Yes Last mammogram: 2021normal OB History T1 L1 SAB0 IAB0 Ectopic0 Multiple0 Live Births0 Production Checker History LMP: 07/25/2018, IUD Age at Menarche: Age at First : Age at Menopause: Production Checker History Comments: Sexual Activity: Yes; Male Contraception: I.U.D. 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 Mc, [facility] Type II or unspecified type diabetes mellitus without mention of complication, not stated as uncontrolled Ureterolithiasis 07/18/2019 PAST SURGICAL HISTORY Procedure Laterality Date ADENOIDECTOMY PRIMARY <AGE 11 1986 Adenoidectomy ARTHROSCOPY KNEE DIAGNOSTIC W/WO SYNOVIAL BX SPX 1989 Arthroscopy, knee, left BRNCHSC INCL FLUOR GDNCE DX W/CELL WASHG SPX January 2007 Bronchoscopy EPIDURAL 2011 multiple ones done by Dr. Beckett PAST SURGICAL HISTORY OF 06/2000 ILEOSTOMY/COLECTOMY PAST SURGICAL HISTORY OF 1993 CRYOCAUTERY/ MILD DYSPLASIA PAST SURGICAL HISTORY OF March 2006 Abdominal abscess with anal fistula PRCTECT COMPL W/STOT/TOT COLCT W/VENEER JOINER BXS 2006 AP endoanal proctectomy SHOULDER ARTHROSCOPY/SURGERY Left 05/06/2020 Rotator cuff debridement, subacromial decompression/arthroplasty TONSILLECTOMY PRIMARY/SECONDARY <AGE 11 1986 Tonsillectomy FAMILY HISTORY Problem Relation Age of Onset Alcohol/Drug Mother Hypertension Mother COPD other (vascular disease) Mother other (sleep apnea) Mother other (heart murmur) Mother Alcohol/Drug Father Cancer Father liver Asthma Brother Hypertension Daughter Diabetes Maternal Grandmother Stroke Maternal Grandmother Heart Maternal Grandmother Emphysema Paternal Grandmother Diabetes Paternal Grandfather Macular Degen Paternal Grandfather Anesthesia Problems No Family History SOCIAL HISTORY Social History Tobacco Use Smoking status: Former Packs/day: 1.00 Years: 16.00 Total pack years: 16.00 Types: Cigarettes Quit date: 12/04/2006 Years since quittin.4 Smokeless tobacco: Never Vaping Use Vaping Use: Never used Substance Use Topics Alcohol use: No Drug use: No REVIEW OF SYSTEMS Abdomen: No abdominal pain, nausea, vomiting, diarrhea, or constipation. Bladder: No dysuria, gross hematuria, urinary frequency, urinary urgency, or incontinence. Breast: No breast lumps, nipple d/c, overlying skin changes, redness or skin retraction. Allergies and current medication updated:Yes EXAM: BP 100/62 Ht 4' 11.5 (1.51m) Wt 170 lb 12.8 oz (77.5kg) LMP 07/25/2018 BMI 33.93 kg/(m^2). GENERAL: pleasant, female in no apparent distress HEENT: Normocephalic, atraumatic, mucus membranes moist, and no lesions NECK: Supple and full range of motion DERMATOLOGY: without lesions BREAST: soft, non-tender, symmetric, no dominant mass, normal nipple-areolar complex, no lymphadenopathy, and no nipple discharge CHEST: Normal inspiratory effort ABDOMEN: soft and non-tender PELVIC: external genitalia normal, normal Bartholin's glands, urethra, Concord's glands, no vulvar lesions, no cervical lesions, good vaginal support, physiologic discharge present, normal appearing perineal body and perianal region, IUD strings visualized BIMANUAL: uterus normal size, shape and consistency, no adnexal masses, and non-tender RECTOVAGINAL: deferred. NEURO: exam grossly non-focal EXTREMITIES: normal ASSESSMENT/PLAN: 1) Health maintenance: Pap/HPV up to date. Mammogram ordered. Nutrition, exercise and routine health maintenance exams reviewed. 2) Contraception: IUD. Contraceptive options reviewed and information provided. 3) STD screening: Declined STD check. 4) Follow up one year or sooner as needed Safia Jamil DO documented in this encounter [facility] 05-26-2023 History of Present illness Narrative Episode Visit Count: 11 Therapist That Will Accept/Oversee The Plan Of Care: Roseline Jacobo Start of Care Date: 02/17/23 Onset Date: 01/17/23 Plan of Care Certification Date: 04/19/23 Next Certification Due Date: 06/10/23 REHABILITATION AND SPORTS THERAPY PHYSICAL THERAPY DISCONTINUANCE OF CARE PLAN OF CARE UPDATE: Assessment: Sid Lezama is discontinued from Physical Therapy services due to goal achievement and maximal benefit.. Pt progressing well and voices readiness to continue with HEP. Rates improvement at 98% thus far. Patient was seen for 11 visits from Start of Care Date: 02/17/23 to 05/26/2023 and treatment included: individual PT . Goals for Episode of Care: created on 02/17/23 through 04/18/23 Updated 03/16/2023 Updated 04/11/2023 Updated 05/26/2023 Gage in home exercise program. met Patient will decrease pain rating by 2 points to meet minimal clinical important difference for numeric pain rating scale. met Patient will demonstrate increase in right UE and scapular strength to 5/5 during manual muscle testing in order to improve function for prior functional tasks. Met except scapular progressing Patient will increase flexibility of right shoulder complex to WNL to improve ability to maintain proper posture, improve mechanics, and decrease pain.progressing Improve postural awareness. met SUBJECTIVE: Patient Reason for Visit: Stiffness still in R pectoral, scapular and R lateral UE. Feels ready to graduate. Has tools need to continue. Exercises pretty regularly. Functioning pretty normally, but fatigued with some activities. Using home modalities when needed. Rates recovery 98%. Pain: see above PROMIS Scales Higher is Better 05/26/2023 04/11/2023 03/14/2023 Phys Func - Score 43 (mild dysfunction) 35 (moderate dysfunction) 31 (moderate dysfunction) Phys Func - Percentile 24 % 7 % 3 % Self-Eff Symptom - Score 69 (High) 54 (Average) 51 (Average) Self-Eff Symptom - Percentile 97 % 66 % 54 % T-scores: mean of general population = 50. 5 points is clinically meaningfully difference Percentiles provide an indication of how the patient's score ranks in relation to the general population. Higher percentile rankings indicate better function/quality of life. 50th percentile is the average of the general population and indicates half of respondents had a worse score. OBJECTIVE MEASURES WITH LEVEL OF FUNCTION: Posture / Alignment Posture: (mild R shoulder elevation and rounding: UT/levator/pec tightness) UE AROM R UE AROM: (functional assessment) shoulder 100% compared to left except IR and elbow supination at 90%, wrist WNL UE and Cervical Strength R Shoulder Extension: 5/5 R Shoulder Flexion: 5/5 R Shoulder Abduction (C5): 5/5 R Shoulder Internal Rotation: 5/5 R Shoulder External Rotation: 5/5 R Upper Trapezius: (4 to 4+) R Middle Trapezius: 4/5 (4+) R Elbow Extension (C7): 5/5 R Elbow Flexion (C6): 5/5 R Forearm Supination: 5/5 R Forearm Pronation: 5/5 R Wrist Extension: 5/5 R Wrist Flexion: 5/5 L Shoulder Extension: 5/5 L Shoulder Flexion: 5/5 L Shoulder Abduction (C5): 4+/5 L Shoulder Internal Rotation: 5/5 L Shoulder External Rotation: 5/5 L Middle Trapezius: 4/5 L Lower Trapezius: 4/5 L Elbow Extension (C7): 5/5 L Elbow Flexion (C6): 5/5 L Forearm Supination: 5/5 L Forearm Pronation: 5/5 L Wrist Extension: 5/5 L Wrist Flexion: 5/5 TREATMENT: Therapeutic Exercise: 1: recheck per above Skilled Intervention: Skilled judgment was provided in selection of appropriate interventions. Billing Therapeutic Exercise Treatment Minutes: 20 Total Treatment Time Minutes (timed/untimed): Roseline Jacobo PT documented in this encounter [facility] 05-26-2023 Miscellaneous Notes Encounter Routed to Staffing Provider in absence of Primary Computer Systems Architect Requester: Patient Patients last Endocrinology visit occurred 03/21/23. Follow-up evaluation has been established Upcoming Endocrinology Appointments - Next 365 Days Visit Type Date Time Department EST NANETTE PATIENT 07/24/2023 9:20 AM ENDO MAIN . Requested Prescriptions Pending Prescriptions Disp Refills OZEMPIC 2 mg/dose (8 mg/3 mL) pen injector [Pharmacy Med Name: OZEMPIC 8 MG/3ML Solution Pen-injector] 9 Each 1 Sig: INJECT 2MG UNDER THE SKIN ONE TIME WEEKLY If patient is due for an appointment please route to provider for refill consideration and also to the endo scheduling pool. PSS NOTE: Patient needs scheduled appointment No documented in this encounter [facility] 05-09-2023 Miscellaneous Notes Patient notified of below recommendation, verbalized understanding. Laina Monroe LPN If she is asymptomatic, I don't recommend retesting for uncomplicated UTI. She was prescribed macrodantin that should have replaced the Bactrim based on the culture. Patient reports she was seen at [facility] ER on 04/29/23 and was treated for a UTI with Bactrim for 7 days. Pt states she was asymptomatic when having the UTI and was advised to contact her PCP after completing antibiotic regimen, and have another urine test completed to ensure infection has resolved. Bactrim was completed on 05/07/23. Patient denies any sx's at this time. Please advise patient. Thank you. documented in this encounter [facility] 05-02-2023 Nurse Note AMBULATORY PATIENT EDUCATION NOTE TOPIC: GI PROCEDURES: Endoscopy via stoma Esophagogastroduodenoscopy(EGD) with or without biopies based on clinical findings, removal of polyps or lesions READINESS TO LEARN INSTRUCTION PROVIDED TO: Patient and family member COGNITIVE ABILITY: Alert and oriented PTED MOTIVATION TO LEARN: Interested FAMILY SUPPORT: High - Very involved in pt care IPATIENT LEARNS BEST BY: Individual Instruction Written Instruction - Hand-outs Verbal Instruction FACTORS AFFECTING LEARNING: None PHYSICAL LIMITATIONS AFFECTING LEARNING: None LEARNING RESPONSE METHOD OF INSTRUCTION: Individual instruction PATIENT / FAMILY RESPONSE: Verbalizes understanding of: WORSENING CONDITION-Signs and symptoms of a worsening condition that warrant a call to the physician FOLLOW-UP PLAN: Recommend - Recommend continued instruction and follow up as directed SUPPLEMENTAL MATERIAL: Procedure Discharge Instructions REFERRAL (RECOMMENDATION): None PRE OP LEARNING ASSESSMENT PROCEDURE/SURGERY: GI PROCEDURES: EGD and Ileoscopy READINESS TO LEARN COGNITIVE ABILITY: Alert and oriented MOTIVATION TO LEARN: Interested FAMILY SUPPORT: None - Unavailable/disinterested PATIENT LEARNS BEST BY: Individual Instruction FACTORS AFFECTING LEARNING: None PHYSICAL LIMITATIONS AFFECTING LEARNING: None Electronically Signed By: Becki Rodriguez RN In Department: GASTROENTEROLOGY documented in this encounter [facility] 05-02-2023 Miscellaneous Notes Ileoscopy started EGD completed documented in this encounter [facility] 04-18-2023 Miscellaneous Notes Called patient to verify pharmacy--patient stated she did not need refill, that this was just an FYI. Advised that my chart was sent to her that refill be ordered but to disregard that. Patient verbalized understanding. Neisha Thomas RN [facility] documented in this encounter [facility] 04-11-2023 History of Present illness Narrative Episode Visit Count: 9 Therapist That Will Accept/Oversee The Plan Of Care: Roseline Jacobo Start of Care Date: 02/17/23 Onset Date: 01/17/23 Plan of Care Certification Date: 04/19/23 Next Certification Due Date: 06/10/23 REHABILITATION AND SPORTS THERAPY PHYSICAL THERAPY PROGRESS REPORT PLAN OF CARE UPDATE: Assessment: Sid Lezama demonstrates improvements in UE strength, motion, function and pain. She has progressed toward goals. Patient continues to present with impairments in flexibility, overall function, posture, strength, and symptom management that interfere with . Current prognosis is Good due to: current objective clinical presentation, good support system/ coping skills . She will benefit from continued skilled therapy services to meet the updated goals for this plan of care as noted below. Goals for Episode of Care: created on 02/17/23 through 04/18/23 Updated 03/16/2023 Updated 04/11/2023 Gage in home exercise program. progressing Patient will decrease pain rating by 2 points to meet minimal clinical important difference for numeric pain rating scale. progressing Patient will demonstrate increase in right UE and scapular strength to 5/5 during manual muscle testing in order to improve function for prior functional tasks.progressing Patient will increase flexibility of right shoulder complex to WNL to improve ability to maintain proper posture, improve mechanics, and decrease pain.progressing Improve postural awareness. progressing Planned Interventions, Frequency, and Duration: 1x every other week, 8 weeks Total Number of Visits Planned: 4 Patient to be seen for Therapeutic exercise (91867), Neuromuscular re-education (47747), Manual therapy (38302), Therapeutic activities (96167), Self-snf management (03379), Gait Training (76635), Patient/Family/Caregiver Education PLAN FOR NEXT VISIT: Emphasis on normalizing UE mechanics; scap stability, GH strength posterior capsule and pectoral flexibility SUBJECTIVE: Patient Reason for Visit: Doing well with arm. Able to throw frisbee. Trouble pushing arm down with meal prep. Shoulder still weak, especially posturally. No pain elbow where treatment performed but is still intermittently noting some posterior shoulder upper arm. Sweeping still problematic. Rates elbow improvement at 60%. Goals: to be able to pull bow back to return to meza-does have assisting string, be able to sweep without pain, improved duration chopping Pain: see above PROMIS Scales Higher is Better 04/11/2023 03/14/2023 02/14/2023 Phys Func - Score 35 (moderate dysfunction) 31 (moderate dysfunction) 32 (moderate dysfunction) Phys Func - Percentile 7 % 3 % 4 % Self-Eff Symptom - Score 54 (Average) 51 (Average) 54 (Average) Self-Eff Symptom - Percentile 66 % 54 % 66 % T-scores: mean of general population = 50. 5 points is clinically meaningfully difference Percentiles provide an indication of how the patient's score ranks in relation to the general population. Higher percentile rankings indicate better function/quality of life. 50th percentile is the average of the general population and indicates half of respondents had a worse score. OBJECTIVE MEASURES WITH LEVEL OF FUNCTION: UE AROM R UE AROM: elbow and wrist AROM visually 100% compared to left R Shoulder Flex: 173 Degrees R Shoulder ABduction: 180 Degrees (pain) R Shoulder Internal Rotation: 75 Degrees R Shoulder External Rotation: 96 Degrees R Elbow Extension: 0 Degrees R Elbow Flexion: 140 Degrees UE and Cervical Strength R Shoulder Flexion: 5/5 R Shoulder Abduction (C5): 4+/5 (pain) R Shoulder Internal Rotation: 5/5 R Shoulder External Rotation: 5/5 R Upper Trapezius: 4/5 R Middle Trapezius: 4/5 R Elbow Extension (C7): 5/5 R Elbow Flexion (C6): 5/5 R Forearm Supination: 5/5 (pain) R Forearm Pronation: 5/5 (pain) R Wrist Extension: 5/5 (short duration then gives) R Wrist Flexion: 5/5 Hand Strength R Conversion Developer Position 2 (lbs): (40#, 55#, 60#) TREATMENT: Therapeutic Exercise: 2: recheck per above 3: *standing shoulder flexoin and abduction to 90 degrees 1#, 10x 4: *B ER vs tband yellow 10x 5: *IR with towel 5 x 10 sec 6: *posterior stretch 3 x 20 sec 7: *hooklying alternating scap pinch elbows straight yellow 10x Skilled Intervention: Patient was educated in proper exercise technique and purpose for exercises. Skilled judgment was provided in selection of appropriate interventions. Provided written instruction for home exercise program to facilitate proper performance and compliance. Correct performance of therapeutic exercises was facilitated with verbal and visual cuing. Self-Usp Management: 1: recheck findings, HEP and parameters, POC, review/updated/consolidate HEP Skilled Intervention: Skilled judgment in the selection of proper modification for activity of daily living/home management based on clinical presentation, deficits, and needs. Billing Therapeutic Exercise Treatment Minutes: 35 Self-Care/Home Management Treatment Minutes: 5 Total Treatment Time Minutes (timed/untimed): 42 Roseline Jacobo PT documented in this encounter [facility] 03-28-2023 History of Present illness Narrative Episode Visit Count: 7 Therapist That Will Accept/Oversee The Plan Of Care: Roseline Jacobo Start of Care Date: 02/17/23 Onset Date: 01/17/23 Plan of Care Certification Date: 03/16/23 Next Certification Due Date: 04/18/23 REHABILITATION AND SPORTS THERAPY PHYSICAL THERAPY TREATMENT NOTE ASSESSMENT: Sid Lezama tolerated the session with expected muscle soreness. She tolerated exercises today with no pain, able to progress strengthening by weight and reps. Completed scapular strengthening today, fatigues with this in mid back. The patient will continue to benefit from ongoing skilled physical therapy to progress toward set goals. PLAN FOR NEXT VISIT: Emphasis on scap stability, gentle scapular/RTC/elbow/wrist strength. SUBJECTIVE: Patient Reason for Visit: Patient says she did alot of cleaning yestreday, pain up to 3/10 that went away this morning. Has to leave a little earlier today she has appointments. Pain: Pain Pain Level: 0 Pain Location: Elbow - Right Description: Sore Frequency: With movement Post Treatment Pain Post Treatment Pain Level: No Change OBJECTIVE MEASURES WITH LEVEL OF FUNCTION: Posture / Alignment Posture: Rounded shoulders TREATMENT: Therapeutic Exercise: 1: UBE x 3 min fwd/3 min retro with status update 2: bicep curls palm up 2lb x 15 3: scapular stability with ball verse wall CW?CCW, ML, AP x 15 4: wrist ext 2lb, 2 x 10 5: wrist flex/ext with red flex bar x 10 6: supination/pronation 2lb, 2 x 15 7: wrist extension stretch 20s x 3 8: supine horizontal abd verse red band, 2 x 15- cues for scap retraction Skilled Intervention: Patient was educated in proper exercise technique and purpose for exercises. Skilled judgment was provided in selection of appropriate interventions. Correct performance of therapeutic exercises was facilitated with verbal and visual cuing. Educated patient on rationale for performing exercises in regards to ROM and function . Billing Therapeutic Exercise Treatment Minutes: 32 Total Treatment Time Minutes (timed/untimed): 32 Rose Dobbs PTA documented in this encounter [facility] 03-21-2023 Miscellaneous Notes Routing to last provider Requester: Pharmacy Patients last Endocrinology visit occurred 12/20/22. Follow-up evaluation has been established 03/21/23. Requested Prescriptions Pending Prescriptions Disp Refills insulin glargine (LANTUS SOLOSTAR U-100 INSULIN) 100 unit/mL (3 mL) 30 mL 0 Sig: Inject 10 Units subcutaneously every morning. For hyperglycemia from steroid shot If patient is due for an appointment please route to provider for refill consideration and also to the endo scheduling pool. 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 documented in this encounter [facility] 03-21-2023 History of Present illness Narrative [facility] Endocrinology & Metabolism [facility] Diabetes Consult Patient has consented to virtual appointment. This visit was conducted as a virtual visit using BeDo platform. I have communicated my name and active licensure. The patient's identity and physical location were verified at the time of this visit. Either the patient or their legal printing sales representative has been informed of the risks and benefits of -- and alternatives to -- treatment through a remote evaluation and consents to proceed with the evaluation remotely. PATIENT NAME: Sid Lezama SERVICE DATE: 03/21/2023 SERVICE TIME: 1130 HPI: Sid Lezama is a 47 year old female who presents today for evaluation of diabetes Type 2 , diagnosed: 2006. Significant past medical history includes fibromyalgia, migraines, HLD, NAFLD, GERD, Crohn's s/p ileostomy, psoriasis, impingement syndrome, obesity class II, low bone mass. Patient of Dr. Harrison. Last seen by myself on 02/20/23 Concerns today:Unhappy with glucose levels. Out of Ozempic for 2 weeks. Medication on back order. Had some bydureon available. Took a dose yesterday. She has 3 pens left of bydureon. Took Lantus 20 units yesterday. Denies hypoglycemia. Did not take Lantus for 2 weeks. Lack of medication adherence. Current DM Medication Regimen: Ozempic 2 mg subq weekly Lantus 15 units daily Previous Treatment Regimen: Metformin Hemoglobin A1C: Lab Results Component Value Date HBA1C 6.4 12/20/2022 HBA1C 5.2 08/09/2022 HBA1C 5.8 05/10/2022 HBA1C 5.8 10/04/2021 HBA1C 7.6 05/18/2021 HBA1C 6.7 01/18/2021 HBA1C 7.2 07/24/2020 CGM Interpretation The patient has been using a Gianfranco 3 CGM. Patient has been monitoring his glucose levels > 4 times per day. Insulin doses have been adjusted based on this data. AGP Report (03/08-03/21) % time sensor is active: 75% GMI: 9.0% Average glucose: 236 mg/dL Glucose variability: 29% Target range: 20% High: 41% Very high: 39% Low: 0% Very Low: 0% Summary of CGM Findings: 1. CGM recording is adequate for interpretation (>72 hours) 2. Time in range is not at target (>70%) 3. Coefficient of variation indicates stable glycemic variability (CV < 37%) 4. Time spent in hypoglycemia is at target (<4%) - Hypoglycemia patterns: - None 5. Time spent in hyperglycemia is at (<25%) - Hyperglycemia patterns: often Hypoglycemia awareness: Y Frequency: none in the last two weeks Diet/physical activity: Usually eating one meal/protein shake per day. One snack per day with natural applesauce and slice of cheese. Reports decrease in appetite. Complications: Microvascular: Retinopathy: retinal hole Neuropathy: yes - cervical issues Macrovascular: none Diabetic Foot and Retinal Eye Exam not Overdue On Jerel/Arb: no On Statin: no The 10-year ASCVD risk score (Noy ANDERSON, et al., 2019) is: 1.9% Values used to calculate the score: Age: 47 years Sex: Female Is Non- : No Diabetic: Yes Tobacco smoker: No Systolic Blood Pressure: 133 mmHg Is BP treated: No HDL Cholesterol: 51 mg/dL Total Cholesterol: 169 mg/dL Pertinent labs: CMP: Glucose (mg/dL) Date Value 12/20/2022 82 06/18/2021 102 Potassium (mmol/L) Date Value 12/20/2022 3.4 06/18/2021 4.5 Sodium (mmol/L) Date Value 12/20/2022 140 06/18/2021 137 Chloride (mmol/L) Date Value 12/20/2022 99 06/18/2021 104 CO2 (mmol/L) Date Value 12/20/2022 30 06/18/2021 21 Creatinine (mg/dL) Date Value 12/20/2022 0.60 12/21/2021 0.59 BUN (mg/dL) Date Value 12/20/2022 9 06/18/2021 6 Anion Gap (mmol/L) Date Value 12/20/2022 11 06/18/2021 12 Calcium (mg/dL) Date Value 06/18/2021 10.8 Calcium, Total (mg/dL) Date Value 12/20/2022 10.5 Protein, Total (g/dL) Date Value 12/15/2022 6.9 01/04/2022 7.3 Albumin (g/dL) Date Value 12/20/2022 4.5 01/04/2022 4.5 Bilirubin, Total (mg/dL) Date Value 12/15/2022 0.6 01/04/2022 0.6 Alkaline Phosphatase (U/L) Date Value 12/20/2022 107 01/04/2022 121 AST (U/L) Date Value 12/15/2022 25 01/04/2022 28 ALT (U/L) Date Value 12/15/2022 23 01/04/2022 32 Urine albumin/creat: Albumin/Creat Ratio (mg/g) Date Value 08/09/2022 <10 05/18/2021 16 Lipid panel: Cholesterol, Total (mg/dL) Date Value 08/09/2022 169 05/18/2021 207 HDL Cholesterol (mg/dL) Date Value 08/09/2022 51 05/18/2021 46 LDL Cholesterol (mg/dL) Date Value 08/09/2022 93 05/18/2021 124 Triglyceride (mg/dL) Date Value 08/09/2022 123 05/18/2021 184 Review of Systems Constitutional: Negative for night sweats and recent unintentional weight change. Eyes: Negative for visual disturbance. Respiratory: Negative for difficulty breathing. Cardiovascular: Negative for chest pain and leg swelling. Gastrointestinal: Positive for diarrhea. Negative for nausea. Musculoskeletal: Positive for myalgias. Neurological: Negative for dizziness and headaches. History Reviewed: ALLERGIES Allergen Reactions Azithromycin Unknown thinks a rash Dilaudid [Hydromorp* Swelling migraines Levemir [Insulin De* Other: See Comments Urine turned dark and smelly Methadone Swelling migraine Morphine Swelling migraines Remicade [Inflixima* Intolerance, Rash broke out in blisters with the 6th dose. 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 Mc, [facility] Type II or unspecified type diabetes mellitus without mention of complication, not stated as uncontrolled Ureterolithiasis 07/18/2019 PAST SURGICAL HISTORY Procedure Laterality Date ADENOIDECTOMY PRIMARY <AGE 11 1986 Adenoidectomy ARTHROSCOPY KNEE DIAGNOSTIC W/WO SYNOVIAL BX SPX 1989 [facility]rosc[facility], knee[facility] [place] [place] GDNCE DX W/CELL WASHG SPX January 2007 Bronchoscopy EPIDURAL 2011 multiple ones done by Dr. Beckett PAST SURGICAL HISTORY OF 06/2000 ILEOSTOMY/COLECTOMY PAST SURGICAL HISTORY OF 1993 CRYOCAUTERY/ MILD DYSPLASIA PAST SURGICAL HISTORY OF March 2006 Abdominal abscess with anal fistula PRCTECT COMPL W/STOT/TOT COLCT W/VENEER JOINER BXS 2006 AP endoanal proctectomy SHOULDER ARTHROSCOPY/SURGERY Left 05/06/2020 Rotator cuff debridement, subacromial decompression/arthroplasty TONSILLECTOMY PRIMARY/SECONDARY <AGE 11 1986 Tonsillectomy Social History Tobacco Use Smoking status: Former Packs/day: 1.00 Years: 16.00 Pack years: 16.00 Types: Cigarettes Quit date: 12/04/2006 Years since quittin.3 Smokeless tobacco: Never Vaping Use Vaping Use: Never used Substance Use Topics Alcohol use: No Drug use: No FAMILY HISTORY Problem Relation Age of Onset Alcohol/Drug Mother Hypertension Mother COPD other (vascular disease) Mother other (sleep apnea) Mother other (heart murmur) Mother Alcohol/Drug Father Cancer Father liver Asthma Brother Hypertension Daughter Diabetes Maternal Grandmother Stroke Maternal Grandmother Heart Maternal Grandmother Emphysema Paternal Grandmother Diabetes Paternal Grandfather Macular Degen Paternal Grandfather Anesthesia Problems No Family History Current Medications: insulin glargine (LANTUS SOLOSTAR U-100 INSULIN) 100 unit/mL (3 mL)^Inject 20 Units subcutaneously every morning.^Disp: 30 mL^Rfl: 0 Magnesium Oxide 500 mg cap^Take 500 mg by mouth.^Disp: ^Rfl: [START ON 05/08/2023] Blood-Glucose Sensor (FREESTYLE GIANFRANCO 3 SENSOR) matilda^1 Kit every 2 weeks. IDDM.DM2^Disp: 6 Each^Rfl: 1 Insulin Lynch, Disposable, (DROPLET PEN NEEDLE) 32 gauge x 5/32^INJECT ONE TIME DAILY^Disp: 100 Each^Rfl: 1 fexofenadine HCl (LELA ORAL)^Take by mouth.^Disp: ^Rfl: pregabalin (LYRICA) 150 mg capsule^Take 1 capsule by mouth three times daily for 180 days.^Disp: 270 capsule^Rfl: [address] (PROTONIX) 40 mg tablet^Take 1 tablet by mouth once daily.^Disp: 60 tablet^Rfl: 2 glucagon (GVOKE) 1 mg/0.2 mL injection^Inject 0.2 mL subcutaneously as needed.^Disp: 0.4 mL^Rfl: 2 ustekinumab (STELARA) 45 mg/0.5 mL sub-Q syringe^Inject 45 mg (1 syringe) subcutaneously at weeks 0 and 4 followed by every 12 weeks thereafter.^Disp: 1.5 mL^Rfl: 1 levonorgestrel (MIRENA) 20 mcg/24 hours (8 yrs) 52 mg IUD^1 Each by INTRAUTERINE route as directed.^Disp: 1 Each^Rfl: 0 clobetasol (TEMOVATE) 0.05 % cream^Apply to affected area twice daily. Sparingly to feet, knees, palms.^Disp: 60 g^Rfl: 1 Lancing Device with Lancets^ACCU CHEK FASTCLIX LANCET *DEVICE* use to check blood glucose up to 2 times per day as instructed. E11.9^Disp: 1 Each^Rfl: 11 Lancets (ACCU-CHEK FASTCLIX LANCET DRUM) lancets^Use as instructed to check blood glucose up to 2 times daily. E11.9^Disp: 200 Each^Rfl: 3 blood sugar diagnostic (FREESTYLE PRECISION DAVID STRIPS) test strip^Use as instructed E11.9^Disp: 200 Each^Rfl: 2 oxyCODONE-acetaminophen (PERCOCET) 5-325 mg tablet^TAKE 1 TABLET BY MOUTH 3 TIMES A DAY NEEDED FOR 28 DAYS^Disp: ^Rfl: semaglutide (OZEMPIC) 2 mg/dose (8 mg/3 mL) pen injector^Inject 2 mg subcutaneously one time a week.^Disp: 15 mL^Rfl: 2 flash glucose sensor (FREESTYLE GIANFRANCO 2 SENSOR) kit^Apply new sensor every fourteen (14) days to upper arm. Dx E11.9^Disp: 6 Each^Rfl: 4 rizatriptan (MAXALT VENEER JOINER) 10 mg disintegrating tablet^Take 1 tablet by mouth as needed for migraine headache (see administration instructions). May repeat in 2 hours if needed^Disp: 9 tablet^Rfl: 2 vits62/FA/om3/dha/epa ( GUMMY ORAL)^Take 2 Doses by mouth once daily.^Disp: ^Rfl: fluticasone (FLONASE) 50 mcg/actuation nasal spray^Use 2 Sprays in each nostril once daily.^Disp: 1 Bottle^Rfl: 2 Blood-Glucose Meter (ACCU-CHEK DIANNE)^Test blood sugar(s) 2 times daily. Dx: Type 2 DM - Controlled E11.9 Insulin: No, Accu-check brand covered by insurance^Disp: 1 Each^Rfl: 0 Ascorbic Acid 500 mg chew^Take 1,000 mg by mouth once daily. With rosehips^Disp: ^Rfl: elderberry fruit (ELDERBERRY ORAL)^Take by mouth.^Disp: ^Rfl: COMPOUNDED PRESCRIPTION^1. V44.2 Ileostomy status (HCC) (primary diagnosis) 2. 555.1 Regional enteritis of large intestine (HCC) Ileostomy Supplies. 1. Pouches, 2. Planges, 3. Felipe seals, 4. Stoma adhesive, 5. Stoma powder, 6. Skin preps, 7. Adhesive remover wipes. Dispense 1 year supplies.^Disp: 20 bag^Rfl: 11 tiZANidine (ZANAFLEX) 4 mg tablet^Take by mouth. . Takes 1 tablet at bedtime.^Disp: ^Rfl: PHYSICAL EXAMINATION: Wt 77.1 kg (170 lb) LMP 07/25/2018 BMI 33.76 kg/m Last 3 Encounter Wt Readings: Date: Wt: 02/20/2023 80 kg (176 lb 6.4 oz) 02/06/2023 80.3 kg (177 lb) 01/19/2023 78.9 kg (174 lb) VIDEO EXAM: (if completed, performed via video enabled technology) Physical Exam No exam performed General: feeling well, no acute distress Neuro: alert and oriented Assessment and Plan: Encounter Diagnosis ICD-10-CM 1. 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, with long-term current use of insulin ([facility]) E11.3293 Z79.4 Glycemic control Target HbA1C in this patient's case is <7% Patient's GMI on CGM report is 9.0% from the last 14 days. - Recommend taking Lantus 20 units daily. Patient agreeable. Encouraged patient to reach out via [facility] after 5-7 days to assess glucose data via [employer] with insulin administration. - pt verbalized understanding. - Continue Ozempic 2 mg subq weekly. -Monitor blood glucose 3 times per day. Contact the office if blood glucose readings are consistently high or if you are experiencing hypoglycemia. In case of symptomatic hypoglycemia treat with glucose tablets or juice. - Recommend a low-carbohydrate nutrition plan. Consistency in carbohydrates (grams per meal) may minimize glycemic variability. Aim for nutrient-dense carbohydrates that are high in fiber and minimally processed. - Recommend routine physical activity involving cardio and strength training exercises. -Recommend annual follow up with consumer educator. -Recommend annual nephropathy screening via urine albumin-creatine ratio. -Recommend annual retinopathy screening with Ophthalmology. -Recommend annual diabetes foot exams by podiatry, endocrinology provider, or PCP. Follow up: - 1 week via [facility] and 3 months with appointment Patient to continue to follow up with their Primary Care Provider and with other consultants regarding their other medical problems. Maddy Zavala APRN.CNP Medical Decision Making: Problems: Moderate: 1+ chronic illnesses with change Data: Unique test result(s) reviewed: 3+ Assessment requiring an independent historian(s) Risk: Moderate: Moderate risk from testing/treatment and Drug management Medical Decision Making Level: 4 - Moderate Answers submitted by the patient for this visit: Core Review of Systems (Submitted on 03/21/2023) Fever : No Nasal Congestion: No Hearing Loss: No A Cough: No Irregular Heart Beat: No Black Tarry Stools: No Difficulty Urinating?: No Awaken at Night More Than Once to Urinate?: Yes Joint Pain or Stiffness: Yes Leg or Foot Discomfort at Night?: No A Rash: No Memory Loss: No Seizures: No documented in this encounter [facility] 03-21-2023 History of Present illness Narrative Episode Visit Count: 6 Therapist That Will Accept/Oversee The Plan Of Care: Roseline Jacobo Start of Care Date: 02/17/23 Onset Date: 01/17/23 Plan of Care Certification Date: 03/16/23 Next Certification Due Date: 04/18/23 REHABILITATION AND SPORTS THERAPY PHYSICAL THERAPY TREATMENT NOTE ASSESSMENT: Sid Braydon Lezama tolerated the session with expected muscle soreness. Progressed repetitions and weight this date with shoulder and elbow strengthening, demos some increase in pain (to 1/10). Added doorway stretch for pecs and putty to home exercise program. The patient will continue to benefit from ongoing skilled physical therapy to progress toward set goals. PLAN FOR NEXT VISIT: Continue per protocol. Emphasis on scap stability, gentle scapular/RTC/elbow/wrist strength. SUBJECTIVE: Patient Reason for Visit: Patient states she is a little sore, she did some light household chore yesterday. She saw massage therapist, states its improving. Pain: Pain Pain Level: 1 Pain Location: Elbow - Right Description: Sore Frequency: With movement Post Treatment Pain Post Treatment Pain Level: No Change OBJECTIVE MEASURES WITH LEVEL OF FUNCTION: Posture / Alignment Posture: Rounded shoulders TREATMENT: Therapeutic Exercise: 1: UBE x 3 min fwd/3 min retro with status update 2: bicep curls palm up 2lb x 15 3: supination/pronation 1#, 2 x 15 4: shoulder extension verse band, 2 x 15 5: mid rows verse band, 2 x 15 6: ER verse yellow band 2 x 10 7: wrist extension stretch review 8: *pec stretch at doorway 15s x 3 9: *yellow putty for security operations engineer and finger strength Skilled Intervention: Patient was educated in proper exercise technique and purpose for exercises. Reviewed and educated patient on additions/changes for home exercise program as above (*). Skilled judgment was provided in selection of appropriate interventions. Correct performance of therapeutic exercises was facilitated with verbal and visual cuing. Educated patient on rationale for performing exercises in regards to ROM and function . Billing Therapeutic Exercise Treatment Minutes: 42 Total Treatment Time Minutes (timed/untimed): 42 Rose Dobbs PTA documented in this encounter [facility] 03-16-2023 History of Present illness Narrative Episode Visit Count: 5 Therapist That Will Accept/Oversee The Plan Of Care: Roseline Jacobo Start of Care Date: 02/17/23 Onset Date: 01/17/23 Plan of Care Certification Date: 03/16/23 Next Certification Due Date: 04/18/23 REHABILITATION AND SPORTS THERAPY PHYSICAL THERAPY PROGRESS REPORT PLAN OF CARE UPDATE: Assessment: Sid Lezama demonstrates improvements in right elbow pain, functional tolerance, and right UE strength. She has progressed toward goals. Patient continues to present with impairments in right cervical and pectoral soft tissue tightness, wrist extensor tightness and tenderness, right wrist, right UE and scapular weakness that interfere with completing household tasks . Current prognosis is Good due to: current objective clinical presentation, good support system/ coping skills . She will benefit from continued skilled therapy services to meet the updated goals for this plan of care as noted below. Goals for Episode of Care: created on 02/17/23 through 04/18/23 Updated 03/16/2023 Gage in home exercise program. progressing Patient will decrease pain rating by 2 points to meet minimal clinical important difference for numeric pain rating scale. progressing Patient will demonstrate increase in right UE and scapular strength to 5/5 during manual muscle testing in order to improve function for prior functional tasks.progressing Patient will increase flexibility of right shoulder complex to WNL to improve ability to maintain proper posture, improve mechanics, and decrease pain.progressing Improve postural awareness. progressing Planned Interventions, Frequency, and Duration: 1x/week, 4 weeks Total Number of Visits Planned: 4 Patient to be seen for Therapeutic exercise (09385), Neuromuscular re-education (25865), Manual therapy (26061), Therapeutic activities (10406), Self-snf management (29187), Gait Training (16908), Patient/Family/Caregiver Education PLAN FOR NEXT VISIT: Continue per protocol. Emphasis on scap stability, gentle scapular/RTC/elbow/wrist strength. Consider addition of putty and doorway stretch for pec tightness. SUBJECTIVE: Patient Reason for Visit: Was pretty crunchy and tight. Was catching. Been using TENS and ice. Feels may be overdoing it due to it being dominant arm. Pain at rest is 0/10. Wakes up and has numbness eblow down. Does have cervical and shoulder problem. PAin range with weighted with actvities during day typically 3/10. DIshes, laundry and sweeping are most difficult tasks. Rates improvement at 30% thus far. Pain: see above PROMIS Scales Higher is Better 03/14/2023 02/14/2023 12/15/2022 Phys Func - Score 31 (moderate dysfunction) 32 (moderate dysfunction) 41 (mild dysfunction) Phys Func - Percentile 3 % 4 % 18 % Self-Eff Symptom - Score 51 (Average) 54 (Average) - Self-Eff Symptom - Percentile 54 % 66 % - T-scores: mean of general population = 50. 5 points is clinically meaningfully difference Percentiles provide an indication of how the patient's score ranks in relation to the general population. Higher percentile rankings indicate better function/quality of life. 50th percentile is the average of the general population and indicates half of respondents had a worse score. OBJECTIVE MEASURES WITH LEVEL OF FUNCTION: UE AROM R UE AROM: full shoulder (except minor IR), elbow and wrist motion UE and Cervical Strength R Shoulder Extension: 5/5 R Shoulder Flexion: 5/5 R Shoulder Abduction (C5): 4+/5 (to 5/5) R Shoulder Internal Rotation: 5/5 R Shoulder External Rotation: 4+/5 (pain) R Elbow Extension (C7): 5/5 R Elbow Flexion (C6): 5/5 R Forearm Supination: 4+/5 (pain) R Forearm Pronation: 5/5 R Wrist Extension: 4+/5 (pain) R Wrist Flexion: 5/5 TREATMENT: Therapeutic Exercise: 1: *wrist extension stretch 2 x 20 sec 2: *ebow flexion 1#, 10x, 2 sets 3: *supination/pronation 1#, 2 x 10 4: *R UT/levator stretch 1 x 20 sec 5: *mid rows yellow 10x 6: *extn shoulder yellow 10x 7: recheck per above Skilled Intervention: Patient was educated in proper exercise technique and purpose for exercises. Skilled judgment was provided in selection of appropriate interventions. Provided written instruction for home exercise program to facilitate proper performance and compliance. Correct performance of therapeutic exercises was facilitated with visual cuing. Self-Usp Management: 1: eval findings, HEP and parameters, regular icing, slow progressive return to tasks avoiding heavier and painful activities Skilled Intervention: Skilled judgment in the selection of proper modification for activity of daily living/home management based on clinical presentation, deficits, and needs. CP right elbow x 20 min no charge Billing Therapeutic Exercise Treatment Minutes: 30 Self-Care/Home Management Treatment Minutes: 5 Total Treatment Time Minutes (timed/untimed): 56 Roseline Jacobo PT documented in this encounter [facility] 03-14-2023 History of Present illness Narrative Episode Visit Count: 4 Therapist That Will Accept/Oversee The Plan Of Care: Roseline Jacobo Start of Care Date: 02/17/23 Onset Date: 01/17/23 Plan of Care Certification Date: 05/10/22 Next Certification Due Date: 06/24/22 REHABILITATION AND SPORTS THERAPY PHYSICAL THERAPY TREATMENT NOTE ASSESSMENT: Sid Lezama tolerated the session with expected muscle soreness. Noted reduced gravely sensation compared to last session with use of IASTM. She tolerated progressions with strength this date, able to add light weight to isotonics with no pain. The patient will continue to benefit from ongoing skilled physical therapy to progress toward set goals. PLAN FOR NEXT VISIT: Continue per post surgical protocol. add scapular stability to HEP. SUBJECTIVE: Patient Reason for Visit: Patient states she continues to limit use at home, started taking alieve 3 days ago. She felt good over the weekend, is more sore today attributed to vaccuming yesterday though she primarily used her left UE. Pain: Pain Pain Level: 1 Pain Location: Elbow - Right Description: Sore Frequency: Intermittent Post Treatment Pain Post Treatment Pain Level: No Change OBJECTIVE MEASURES WITH LEVEL OF FUNCTION: Posture / Alignment Posture: Rounded shoulders TREATMENT: Therapeutic Exercise: 1: UBE 6 minutes, switch at half 2: wrist ext x 10, x 10 1lb 3: wrist flex x 10 4: supination/pronation 1lb x 10 5: scap set in hooklying 2 x 10 6: rows verse yellow band x 10 Skilled Intervention: Patient was educated in proper exercise technique and purpose for exercises. Skilled judgment was provided in selection of appropriate interventions. Correct performance of therapeutic exercises was facilitated with verbal, visual, and tactile cuing. Educated patient on rationale for performing exercises in regards to ROM and function . Manual Therapy: 1: IASTM to extensor muscle group and tendon 2: passive thoracic mobilization, supine on towel x 90 sec Skilled Intervention: Manual skills to improve joint mobility, ROM, and decrease pain. Utilized anatomy knowledge of the therapist, and assessment of patient's response to intervention. Self-Usp Management: 1: Discussed use of TENS unit at home, reviewed proper electrode placement and parameters. Skilled Intervention: Instructed and educated patient on use of TENS unit, electrode placement and parameters at home for pain relief. Billing Therapeutic Exercise Treatment Minutes: 32 Manual TherapyTreatment Minutes: 11 Self-Care/Home Management Treatment Minutes: 3 Total Treatment Time Minutes (timed/untimed): 46 Rose Dobbs PTA documented in this encounter [facility] 03-10-2023 History of Present illness Narrative Episode Visit Count: 3 Therapist That Will Accept/Oversee The Plan Of Care: Roseline Jacobo Start of Care Date: 02/17/23 Onset Date: 01/17/23 Plan of Care Certification Date: 05/10/22 Next Certification Due Date: 06/24/22 RE[facility]AB[facility]ATION AND SPORTS THERAPY PHYSICAL THERAPY TREATMENT NOTE ASSESSMENT: Sid Lezama tolerated the session with expected muscle soreness. She demonstrated challenge with scapular retraction without compensation from upper traps. Noted gravely sensation along wrist extensor muscle group and tendons, initiated isotonics in gravity free position, patient tolerated with less discomfort. The patient will continue to benefit from ongoing skilled physical therapy to progress toward set goals. PLAN FOR NEXT VISIT: Continue per post surgical protocol. SUBJECTIVE: Patient Reason for Visit: Patient states she has been doing less at home. She got a massage on monday which seemed to help her mid traps/rhomboids and helped some with her elbow. Pain: Pain Pain Level: 2 Pain Location: Elbow - Right Description: Sore Frequency: Intermittent Post Treatment Pain Post Treatment Pain Level: No Change OBJECTIVE MEASURES WITH LEVEL OF FUNCTION: Posture / Alignment Posture: Rounded shoulders TREATMENT: Therapeutic Exercise: 1: UBE 6 minutes, switch at half 2: prone- ext, scap set, Ys x 15 ea 3: supine scap set x 10 4: seated wrist isotonics ext/flex in gravity eliminated position x 10- less pain Skilled Intervention: Patient was educated in proper exercise technique and purpose for exercises. Skilled judgment was provided in selection of appropriate interventions. Correct performance of therapeutic exercises was facilitated with verbal, visual, and tactile cuing. Educated patient on rationale for performing exercises in regards to ROM and function . Manual Therapy: 1: IASTM to extensor muscle froup and tendon Skilled Intervention: Manual skills to improve joint mobility, ROM, and decrease pain. Utilized anatomy knowledge of the therapist, and assessment of patient's response to intervention. Billing Therapeutic Exercise Treatment Minutes: 31 Manual TherapyTreatment Minutes: 9 Total Treatment Time Minutes (timed/untimed): 40 Rose Dobbs PTA documented in this encounter [facility] 03-03-2023 History of Present illness Narrative Episode Visit Count: 2 Therapist That Will Accept/Oversee The Plan Of Care: Roseline Jacobo Start of Care Date: 02/17/23 Onset Date: 01/17/23 Plan of Care Certification Date: 05/10/22 Next Certification Due Date: 06/24/22 REHABILITATION AND SPORTS THERAPY PHYSICAL THERAPY TREATMENT NOTE ASSESSMENT: Sid Lezama tolerated the session with expected muscle soreness. She required moderate to max cueing during prone work especially scapular set. She compensates with upper trap and by bending elbow. Discussed with patient easing up on ADLs at home to prevent increased inflammation/irritation as she admitted she may be doing too much at home. The patient will continue to benefit from ongoing skilled physical therapy to progress toward set goals. PLAN FOR NEXT VISIT: consider STM to reduce pain and scap mobs. 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 She has been compliant wit HEP, she uses a vaccum which has been Pain: Pain Pain Level: 3 Pain Location: Elbow - Right Description: Sore Frequency: Intermittent Post Treatment Pain Post Treatment Pain Level: No Change OBJECTIVE MEASURES WITH LEVEL OF FUNCTION: Posture / Alignment Posture: Rounded shoulders TREATMENT: Therapeutic Exercise: 1: prone- ext, scap set, Ys x 10 ea 2: bicep isometrics 5 x 10 sec 3: wrist isometrics 5 x 10 sec 4: *thoracic ext over towel in chair x 10 5: gentle wrist isotonics, flex/ext x 10 Skilled Intervention: Patient was educated in proper exercise technique and purpose for exercises. Reviewed and educated patient on additions/changes for home exercise program as above (*). Skilled judgment was provided in selection of appropriate interventions. Correct performance of therapeutic exercises was facilitated with verbal and visual cuing. Educated patient on rationale for performing exercises in regards to ROM and function. Self-Usp Management: 1: Discussed limitation and redcuing amount of use at home with ADLs, asking for help or using left hand as often as possible to ersdue irritation and inflammation. Skilled Intervention: Educated the patient regarding recommendations to facilitate compliance. Manual Therapy: 1: theracane for self STM x 2 min Skilled Intervention: Manual skills to improve joint mobility, ROM, and decrease pain. Utilized anatomy knowledge of the therapist, and assessment of patient's response to intervention. Billing Therapeutic Exercise Treatment Minutes: 37 Manual TherapyTreatment Minutes: 3 Total Treatment Time Minutes (timed/untimed): 46 Rose Dobbs PTA documented in this encounter [facility] 02-17-2023 History of Past i llness Narrative Problem Noted Date Diagnosed Date Resolved Date Pain in right elbow 02/17/2023 08/11/20 23 S/P shoulder surgery 03/18/2022 023 Lateral epicondylitis of left elbow 01/14/2022 04/04/2022 Right arm weakness 06/25/2021 Decreased ROM of right shoulder 06/25/2021 09/17/2021 Tear of right rotator cuff 06/22/2021 0 06/22/2021 Impingement syndrome of right shoulder 06/22/2021 08/11/2023 Hypercalcemia 05/19/2021 02/06/2023 Status post subacromial decompression 05/29/2020 09/17/2021 Plantar fasciitis 08/02/2019 09/17/2021 Ureterolithiasis 07/18/2019 02/06/2023 Pain in right shoulder 09/20/201808/11 Pain in left shoulder 09/20/20182022 Sprain of wrist, left 02/18/20152017 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 023 Hypoglycemia 10/24/2011 03/08/2012 Contact dermatitis and other eczema, due to unspecified cause 10/18/2011 01/03/2017 Eczematous dermatitis: hands 11/23/2010 02/18/2013 Xerosis cutis 11/23/2010 02/18/2013 Depression 08/30/2010 11/27/2018 Mild dysplasia of cervix 10/27/2009 Impaired glucose tolerance test 01/31/2008 04/16/2008 Onychia and paronychia of toe 09/26/2007 02/18/2013 Nonspecific abnormal results of liver function study 08/24/2007 04/19/2011 Overview: AST 56, ALT 80 in 08-19: 85/79 on repeat ESR 29 in 08-19 HBsAg negative, HCV negative, NL iron studies in 08-19 Anemia, unspecified 01/10/2007 03/08/20 12 Retention of urine, unspecified 01/01/2007 11/27/2018 Fibromyalgia 04/19/2011 documented as of this encounter (statuses as of 08/11/2023) [facility] History of Past illness Narrative* Problem Noted Date Diagnosed Date Resolved Date Pain in right elbow 02/17/2023 08/11/20 23 S/P shoulder surgery 03/18/2022 023 Lateral epicondylitis of left elbow 01/14/2022 04/04/2022 Right arm weakness 06/25/2021 Decreased ROM of right shoulder 06/25/2021 09/17/2021 Tear of right rotator cuff 06/22/2021 0 06/22/2021 Impingement syndrome of right shoulder 06/22/2021 08/11/2023 Hypercalcemia 05/19/2021 02/06/2023 Status post subacromial decompression 05/29/2020 09/17/2021 Plantar fasciitis 08/02/2019 09/17/2021 Ureterolithiasis 07/18/2019 02/06/2023 Pain in right shoulder 09/20/201808/11 Pain in left shoulder 09/20/20182022 Sprain of wrist, left 02/18/20152017 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 023 Hypoglycemia 10/24/2011 03/08/2012 Contact dermatitis and other eczema, due to unspecified cause 10/18/2011 01/03/2017 Eczematous dermatitis: hands 11/23/2010 02/18/2013 Xerosis cutis 11/23/2010 02/18/2013 Depression 08/30/2010 11/27/2018 Mild dysplasia of cervix 10/27/2009 Impaired glucose tolerance test 01/31/2008 04/16/2008 Onychia and paronychia of toe 09/26/2007 02/18/2013 Nonspecific abnormal results of liver function study 08/24/2007 04/19/2011 Overview: AST 56, ALT 80 in 08-19: 85/79 on repeat ESR 29 in 08-19 HBsAg negative, HCV negative, NL iron studies in 08-19 Anemia, unspecified 01/10/2007 03/08/20 12 Retention of urine, unspecified 01/01/2007 11/27/2018 Fibromyalgia 04/19/2011 documented as of this encounter (statuses as of 09/19/2023) [facility] History of Past illness Narrative* Problem Noted Date Diagnosed Date Resolved Date Pain in right elbow 02/17/2023 08/11/20 23 S/P shoulder surgery 03/18/2022 023 Lateral epicondylitis of left elbow 01/14/2022 04/04/2022 Right arm weakness 06/25/2021 Decreased ROM of right shoulder 06/25/2021 09/17/2021 Tear of right rotator cuff 06/22/2021 0 06/22/2021 Impingement syndrome of right shoulder 06/22/2021 08/11/2023 Hypercalcemia 05/19/2021 02/06/2023 Status post subacromial decompression 05/29/2020 09/17/2021 Plantar fasciitis 08/02/2019 09/17/2021 Ureterolithiasis 07/18/2019 02/06/2023 Pain in right shoulder 09/20/201808/11 Pain in left shoulder 09/20/20182022 Sprain of wrist, left 02/18/20152017 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 023 Hypoglycemia 10/24/2011 03/08/2012 Contact dermatitis and other eczema, due to unspecified cause 10/18/2011 01/03/2017 Eczematous dermatitis: hands 11/23/2010 02/18/2013 Xerosis cutis 11/23/2010 02/18/2013 Depression 08/30/2010 11/27/2018 Mild dysplasia of cervix 10/27/2009 Impaired glucose tolerance test 01/31/2008 04/16/2008 Onychia and paronychia of toe 09/26/2007 02/18/2013 Nonspecific abnormal results of liver function study 08/24/2007 04/19/2011 Overview: AST 56, ALT 80 in 08-19: 85/79 on repeat ESR 29 in 08-19 HBsAg negative, HCV negative, NL iron studies in 08-19 Anemia, unspecified 01/10/2007 03/08/20 12 Retention of urine, unspecified 01/01/2007 11/27/2018 Fibromyalgia 04/19/2011 documented as of this encounter (statuses as of 09/25/2023) [facility] History of Past illness Narrative* Problem Noted Date Diagnosed Date Resolved Date Pain in right elbow 02/17/2023 08/11/20 23 S/P shoulder surgery 03/18/2022 023 Lateral epicondylitis of left elbow 01/14/2022 04/04/2022 Right arm weakness 06/25/2021 Decreased ROM of right shoulder 06/25/2021 09/17/2021 Tear of right rotator cuff 06/22/2021 0 06/22/2021 Impingement syndrome of right shoulder 06/22/2021 08/11/2023 Hypercalcemia 05/19/2021 02/06/2023 Status post subacromial decompression 05/29/2020 09/17/2021 Plantar fasciitis 08/02/2019 09/17/2021 Ureterolithiasis 07/18/2019 02/06/2023 Pain in right shoulder 09/20/201808/11 Pain in left shoulder 09/20/20182022 Sprain of wrist, left 02/18/20152017 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 023 Hypoglycemia 10/24/2011 03/08/2012 Contact dermatitis and other eczema, due to unspecified cause 10/18/2011 01/03/2017 Eczematous dermatitis: hands 11/23/2010 02/18/2013 Xerosis cutis 11/23/2010 02/18/2013 Depression 08/30/2010 11/27/2018 Mild dysplasia of cervix 10/27/2009 Impaired glucose tolerance test 01/31/2008 04/16/2008 Onychia and paronychia of toe 09/26/2007 02/18/2013 Nonspecific abnormal results of liver function study 08/24/2007 04/19/2011 Overview: AST 56, ALT 80 in 08-19: 85/79 on repeat ESR 29 in 08-19 HBsAg negative, HCV negative, NL iron studies in 08-19 Anemia, unspecified 01/10/2007 03/08/20 12 Retention of urine, unspecified 01/01/2007 11/27/2018 Fibromyalgia 04/19/2011 documented as of this encounter (statuses as of 09/26/2023) [facility] History of Past illness Narrative* Problem Noted Date Diagnosed Date Resolved Date Pain in right elbow 02/17/2023 08/11/20 23 S/P shoulder surgery 03/18/2022 023 Lateral epicondylitis of left elbow 01/14/2022 04/04/2022 Right arm weakness 06/25/2021 Decreased ROM of right shoulder 06/25/2021 09/17/2021 Tear of right rotator cuff 06/22/2021 0 06/22/2021 Impingement syndrome of right shoulder 06/22/2021 08/11/2023 Hypercalcemia 05/19/2021 02/06/2023 Status post subacromial decompression 05/29/2020 09/17/2021 Plantar fasciitis 08/02/2019 09/17/2021 Ureterolithiasis 07/18/2019 02/06/2023 Pain in right shoulder 09/20/201808/11 Pain in left shoulder 09/20/20182022 Sprain of wrist, left 02/18/20152017 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 023 Hypoglycemia 10/24/2011 03/08/2012 Contact dermatitis and other eczema, due to unspecified cause 10/18/2011 01/03/2017 Eczematous dermatitis: hands 11/23/2010 02/18/2013 Xerosis cutis 11/23/2010 02/18/2013 Depression 08/30/2010 11/27/2018 Mild dysplasia of cervix 10/27/2009 Impaired glucose tolerance test 01/31/2008 04/16/2008 Onychia and paronychia of toe 09/26/2007 02/18/2013 Nonspecific abnormal results of liver function study 08/24/2007 04/19/2011 Overview: AST 56, ALT 80 in 08-19: 85/79 on repeat ESR 29 in 08-19 HBsAg negative, HCV negative, NL iron studies in 08-19 Anemia, unspecified 01/10/2007 03/08/20 12 Retention of urine, unspecified 01/01/2007 11/27/2018 Fibromyalgia 04/19/2011 documented as of this encounter (statuses as of 10/03/2023) [facility] History of Past illness Narrative* Problem Noted Date Diagnosed Date Resolved Date Pain in right elbow 02/17/2023 08/11/20 23 S/P shoulder surgery 03/18/2022 023 Lateral epicondylitis of left elbow 01/14/2022 04/04/2022 Right arm weakness 06/25/2021 Decreased ROM of right shoulder 06/25/2021 09/17/2021 Tear of right rotator cuff 06/22/2021 0 06/22/2021 Impingement syndrome of right shoulder 06/22/2021 08/11/2023 Hypercalcemia 05/19/2021 02/06/2023 Status post subacromial decompression 05/29/2020 09/17/2021 Plantar fasciitis 08/02/2019 09/17/2021 Ureterolithiasis 07/18/2019 02/06/2023 Pain in right shoulder 09/20/201808/11 Pain in left shoulder 09/20/20182022 Sprain of wrist, left 02/18/20152017 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 023 Hypoglycemia 10/24/2011 03/08/2012 Contact dermatitis and other eczema, due to unspecified cause 10/18/2011 01/03/2017 Eczematous dermatitis: hands 11/23/2010 02/18/2013 Xerosis cutis 11/23/2010 02/18/2013 Depression 08/30/2010 11/27/2018 Mild dysplasia of cervix 10/27/2009 Impaired glucose tolerance test 01/31/2008 04/16/2008 Onychia and paronychia of toe 09/26/2007 02/18/2013 Nonspecific abnormal results of liver function study 08/24/2007 04/19/2011 Overview: AST 56, ALT 80 in 08-19: 85/79 on repeat ESR 29 in 08-19 HBsAg negative, HCV negative, NL iron studies in 08-19 Anemia, unspecified 01/10/2007 03/08/20 12 Retention of urine, unspecified 01/01/2007 11/27/2018 Fibromyalgia 04/19/2011 documented as of this encounter (statuses as of 10/04/2023) [facility] History of Past illness Narrative* Problem Noted Date Diagnosed Date Resolved Date Pain in right elbow 02/17/2023 08/11/20 23 S/P shoulder surgery 03/18/2022 023 Lateral epicondylitis of left elbow 01/14/2022 04/04/2022 Right arm weakness 06/25/2021 Decreased ROM of right shoulder 06/25/2021 09/17/2021 Tear of right rotator cuff 06/22/2021 0 06/22/2021 Impingement syndrome of right shoulder 06/22/2021 08/11/2023 Hypercalcemia 05/19/2021 02/06/2023 Status post subacromial decompression 05/29/2020 09/17/2021 Plantar fasciitis 08/02/2019 09/17/2021 Ureterolithiasis 07/18/2019 02/06/2023 Pain in right shoulder 09/20/201808/11 Pain in left shoulder 09/20/20182022 Sprain of wrist, left 02/18/20152017 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 023 Hypoglycemia 10/24/2011 03/08/2012 Contact dermatitis and other eczema, due to unspecified cause 10/18/2011 01/03/2017 Eczematous dermatitis: hands 11/23/2010 02/18/2013 Xerosis cutis 11/23/2010 02/18/2013 Depression 08/30/2010 11/27/2018 Mild dysplasia of cervix 10/27/2009 Impaired glucose tolerance test 01/31/2008 04/16/2008 Onychia and paronychia of toe 09/26/2007 02/18/2013 Nonspecific abnormal results of liver function study 08/24/2007 04/19/2011 Overview: AST 56, ALT 80 in 08-19: 85/79 on repeat ESR 29 in 08-19 HBsAg negative, HCV negative, NL iron studies in 08-19 Anemia, unspecified 01/10/2007 03/08/20 12 Retention of urine, unspecified 01/01/2007 11/27/2018 Fibromyalgia 04/19/2011 documented as of this encounter (statuses as of 10/12/2023) [facility] History of Past illness Narrative* Problem Noted Date Diagnosed Date Resolved Date Pain in right elbow 02/17/2023 08/11/20 23 S/P shoulder surgery 03/18/2022 023 Lateral epicondylitis of left elbow 01/14/2022 04/04/2022 Right arm weakness 06/25/2021 Decreased ROM of right shoulder 06/25/2021 09/17/2021 Tear of right rotator cuff 06/22/2021 0 06/22/2021 Impingement syndrome of right shoulder 06/22/2021 08/11/2023 Hypercalcemia 05/19/2021 02/06/2023 Status post subacromial decompression 05/29/2020 09/17/2021 Plantar fasciitis 08/02/2019 09/17/2021 Ureterolithiasis 07/18/2019 02/06/2023 Pain in right shoulder 09/20/201808/11 Pain in left shoulder 09/20/20182022 Sprain of wrist, left 02/18/20152017 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 023 Hypoglycemia 10/24/2011 03/08/2012 Contact dermatitis and other eczema, due to unspecified cause 10/18/2011 01/03/2017 Eczematous dermatitis: hands 11/23/2010 02/18/2013 Xerosis cutis 11/23/2010 02/18/2013 Depression 08/30/2010 11/27/2018 Mild dysplasia of cervix 10/27/2009 Impaired glucose tolerance test 01/31/2008 04/16/2008 Onychia and paronychia of toe 09/26/2007 02/18/2013 Nonspecific abnormal results of liver function study 08/24/2007 04/19/2011 Overview: AST 56, ALT 80 in 08-19: 85/79 on repeat ESR 29 in 08-19 HBsAg negative, HCV negative, NL iron studies in 08-19 Anemia, unspecified 01/10/2007 03/08/20 12 Retention of urine, unspecified 01/01/2007 11/27/2018 Fibromyalgia 04/19/2011 documented as of this encounter (statuses as of 12/16/2023) [facility] History of Past illness Narrative* Problem Noted Date Diagnosed Date Resolved Date Pain in right elbow 02/17/2023 08/11/20 23 S/P shoulder surgery 03/18/2022 023 Lateral epicondylitis of left elbow 01/14/2022 04/04/2022 Right arm weakness 06/25/2021 Decreased ROM of right shoulder 06/25/2021 09/17/2021 Tear of right rotator cuff 06/22/2021 0 06/22/2021 Impingement syndrome of right shoulder 06/22/2021 08/11/2023 Hypercalcemia 05/19/2021 02/06/2023 Status post subacromial decompression 05/29/2020 09/17/2021 Plantar fasciitis 08/02/2019 09/17/2021 Ureterolithiasis 07/18/2019 02/06/2023 Pain in right shoulder 09/20/201808/11 Pain in left shoulder 09/20/20182022 Sprain of wrist, left 02/18/20152017 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 023 Hypoglycemia 10/24/2011 03/08/2012 Contact dermatitis and other eczema, due to unspecified cause 10/18/2011 01/03/2017 Eczematous dermatitis: hands 11/23/2010 02/18/2013 Xerosis cutis 11/23/2010 02/18/2013 Depression 08/30/2010 11/27/2018 Mild dysplasia of cervix 10/27/2009 Impaired glucose tolerance test 01/31/2008 04/16/2008 Onychia and paronychia of toe 09/26/2007 02/18/2013 Nonspecific abnormal results of liver function study 08/24/2007 04/19/2011 Overview: AST 56, ALT 80 in 08-19: 85/79 on repeat ESR 29 in 08-19 HBsAg negative, HCV negative, NL iron studies in 08-19 Anemia, unspecified 01/10/2007 03/08/20 12 Retention of urine, unspecified 01/01/2007 11/27/2018 Fibromyalgia 04/19/2011 documented as of this encounter (statuses as of 2023) [facility] History of Past illness Narrative* Problem Noted Date Diagnosed Date Resolved Date Pain in right elbow 02/17/2023 08/11/20 23 S/P shoulder surgery 03/18/2022 023 Lateral epicondylitis of left elbow 01/14/2022 04/04/2022 Right arm weakness 06/25/2021 Decreased ROM of right shoulder 06/25/2021 09/17/2021 Tear of right rotator cuff 06/22/2021 0 06/22/2021 Impingement syndrome of right shoulder 06/22/2021 08/11/2023 Hypercalcemia 05/19/2021 02/06/2023 Status post subacromial decompression 05/29/2020 09/17/2021 Plantar fasciitis 08/02/2019 09/17/2021 Ureterolithiasis 07/18/2019 02/06/2023 Pain in right shoulder 09/20/201808/11 Pain in left shoulder 09/20/20182022 Sprain of wrist, left 02/18/20152017 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 023 Hypoglycemia 10/24/2011 03/08/2012 Contact dermatitis and other eczema, due to unspecified cause 10/18/2011 01/03/2017 Eczematous dermatitis: hands 11/23/2010 02/18/2013 Xerosis cutis 11/23/2010 02/18/2013 Depression 08/30/2010 11/27/2018 Mild dysplasia of cervix 10/27/2009 Impaired glucose tolerance test 01/31/2008 04/16/2008 Onychia and paronychia of toe 09/26/2007 02/18/2013 Nonspecific abnormal results of liver function study 08/24/2007 04/19/2011 Overview: AST 56, ALT 80 in 08-19: 85/79 on repeat ESR 29 in 08-19 HBsAg negative, HCV negative, NL iron studies in 08-19 Anemia, unspecified 01/10/2007 03/08/20 12 Retention of urine, unspecified 01/01/2007 11/27/2018 Fibromyalgia 04/19/2011 documented as of this encounter (statuses as of 12/26/2023) [facility] History of Past illness Narrative* Problem Noted Date Diagnosed Date Resolved Date Pain in right elbow 02/17/2023 08/11/20 23 S/P shoulder surgery 03/18/2022 023 Lateral epicondylitis of left elbow 01/14/2022 04/04/2022 Right arm weakness 06/25/2021 Decreased ROM of right shoulder 06/25/2021 09/17/2021 Tear of right rotator cuff 06/22/2021 0 06/22/2021 Impingement syndrome of right shoulder 06/22/2021 08/11/2023 Hypercalcemia 05/19/2021 02/06/2023 Status post subacromial decompression 05/29/2020 09/17/2021 Plantar fasciitis 08/02/2019 09/17/2021 Ureterolithiasis 07/18/2019 02/06/2023 Pain in right shoulder 09/20/201808/11 Pain in left shoulder 09/20/20182022 Sprain of wrist, left 02/18/20152017 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 023 Hypoglycemia 10/24/2011 03/08/2012 Contact dermatitis and other eczema, due to unspecified cause 10/18/2011 01/03/2017 Eczematous dermatitis: hands 11/23/2010 02/18/2013 Xerosis cutis 11/23/2010 02/18/2013 Depression 08/30/2010 11/27/2018 Mild dysplasia of cervix 10/27/2009 Impaired glucose tolerance test 01/31/2008 04/16/2008 Onychia and paronychia of toe 09/26/2007 02/18/2013 Nonspecific abnormal results of liver function study 08/24/2007 04/19/2011 Overview: AST 56, ALT 80 in 08-19: 85/79 on repeat ESR 29 in 08-19 HBsAg negative, HCV negative, NL iron studies in 08-19 Anemia, unspecified 01/10/2007 03/08/20 12 Retention of urine, unspecified 01/01/2007 11/27/2018 Fibromyalgia 04/19/2011 documented as of this encounter (statuses as of 01/01/2024) [facility] History of Past illness Narrative* Problem Noted Date Diagnosed Date Resolved Date Pain in right elbow 02/17/2023 08/11/20 23 S/P shoulder surgery 03/18/2022 023 Lateral epicondylitis of left elbow 01/14/2022 04/04/2022 Right arm weakness 06/25/2021 Decreased ROM of right shoulder 06/25/2021 09/17/2021 Tear of right rotator cuff 06/22/2021 0 06/22/2021 Impingement syndrome of right shoulder 06/22/2021 08/11/2023 Hypercalcemia 05/19/2021 02/06/2023 Status post subacromial decompression 05/29/2020 09/17/2021 Plantar fasciitis 08/02/2019 09/17/2021 Ureterolithiasis 07/18/2019 02/06/2023 Pain in right shoulder 09/20/201808/11 Pain in left shoulder 09/20/20182022 Sprain of wrist, left 02/18/20152017 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 023 Hypoglycemia 10/24/2011 03/08/2012 Contact dermatitis and other eczema, due to unspecified cause 10/18/2011 01/03/2017 Eczematous dermatitis: hands 11/23/2010 02/18/2013 Xerosis cutis 11/23/2010 02/18/2013 Depression 08/30/2010 11/27/2018 Mild dysplasia of cervix 10/27/2009 Impaired glucose tolerance test 01/31/2008 04/16/2008 Onychia and paronychia of toe 09/26/2007 02/18/2013 Nonspecific abnormal results of liver function study 08/24/2007 04/19/2011 Overview: AST 56, ALT 80 in 08-19: 85/79 on repeat ESR 29 in 08-19 HBsAg negative, HCV negative, NL iron studies in 08-19 Anemia, unspecified 01/10/2007 03/08/20 12 Retention of urine, unspecified 01/01/2007 11/27/2018 Fibromyalgia 04/19/2011 documented as of this encounter (statuses as of 01/03/2024) [facility] History of Past illness Narrative* Problem Noted Date Diagnosed Date Resolved Date Pain in right elbow 02/17/2023 08/11/20 23 S/P shoulder surgery 03/18/2022 023 Lateral epicondylitis of left elbow 01/14/2022 04/04/2022 Right arm weakness 06/25/2021 Decreased ROM of right shoulder 06/25/2021 09/17/2021 Tear of right rotator cuff 06/22/2021 0 06/22/2021 Impingement syndrome of right shoulder 06/22/2021 08/11/2023 Hypercalcemia 05/19/2021 02/06/2023 Status post subacromial decompression 05/29/2020 09/17/2021 Plantar fasciitis 08/02/2019 09/17/2021 Ureterolithiasis 07/18/2019 02/06/2023 Pain in right shoulder 09/20/201808/11 Pain in left shoulder 09/20/20182022 Sprain of wrist, left 02/18/20152017 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 023 Hypoglycemia 10/24/2011 03/08/2012 Contact dermatitis and other eczema, due to unspecified cause 10/18/2011 01/03/2017 Eczematous dermatitis: hands 11/23/2010 02/18/2013 Xerosis cutis 11/23/2010 02/18/2013 Depression 08/30/2010 11/27/2018 Mild dysplasia of cervix 10/27/2009 Impaired glucose tolerance test 01/31/2008 04/16/2008 Onychia and paronychia of toe 09/26/2007 02/18/2013 Nonspecific abnormal results of liver function study 08/24/2007 04/19/2011 Overview: AST 56, ALT 80 in 08-19: 85/79 on repeat ESR 29 in 08-19 HBsAg negative, HCV negative, NL iron studies in 08-19 Anemia, unspecified 01/10/2007 03/08/20 12 Retention of urine, unspecified 01/01/2007 11/27/2018 Fibromyalgia 04/19/2011 documented as of this encounter (statuses as of 01/16/2024) [facility] History of Past illness Narrative* Problem Noted Date Diagnosed Date Resolved Date Pain in right elbow 02/17/2023 08/11/20 23 S/P shoulder surgery 03/18/2022 023 Lateral epicondylitis of left elbow 01/14/2022 04/04/2022 Right arm weakness 06/25/2021 Decreased ROM of right shoulder 06/25/2021 09/17/2021 Tear of right rotator cuff 06/22/2021 0 06/22/2021 Impingement syndrome of right shoulder 06/22/2021 08/11/2023 Hypercalcemia 05/19/2021 02/06/2023 Status post subacromial decompression 05/29/2020 09/17/2021 Plantar fasciitis 08/02/2019 09/17/2021 Ureterolithiasis 07/18/2019 02/06/2023 Pain in right shoulder 09/20/201808/11 Pain in left shoulder 09/20/20182022 Sprain of wrist, left 02/18/20152017 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 023 Hypoglycemia 10/24/2011 03/08/2012 Contact dermatitis and other eczema, due to unspecified cause 10/18/2011 01/03/2017 Eczematous dermatitis: hands 11/23/2010 02/18/2013 Xerosis cutis 11/23/2010 02/18/2013 Depression 08/30/2010 11/27/2018 Mild dysplasia of cervix 10/27/2009 Impaired glucose tolerance test 01/31/2008 04/16/2008 Onychia and paronychia of toe 09/26/2007 02/18/2013 Nonspecific abnormal results of liver function study 08/24/2007 04/19/2011 Overview: AST 56, ALT 80 in 08-19: 85/79 on repeat ESR 29 in 08-19 HBsAg negative, HCV negative, NL iron studies in 08-19 Anemia, unspecified 01/10/2007 03/08/20 12 Retention of urine, unspecified 01/01/2007 11/27/2018 Fibromyalgia 04/19/2011 documented as of this encounter (statuses as of 01/23/2024) [facility] History of Past illness Narrative* Problem Noted Date Diagnosed Date Resolved Date Pain in right elbow 02/17/2023 08/11/20 23 S/P shoulder surgery 03/18/2022 023 Lateral epicondylitis of left elbow 01/14/2022 04/04/2022 Right arm weakness 06/25/2021 Decreased ROM of right shoulder 06/25/2021 09/17/2021 Tear of right rotator cuff 06/22/2021 0 06/22/2021 Impingement syndrome of right shoulder 06/22/2021 08/11/2023 Hypercalcemia 05/19/2021 02/06/2023 Status post subacromial decompression 05/29/2020 09/17/2021 Plantar fasciitis 08/02/2019 09/17/2021 Ureterolithiasis 07/18/2019 02/06/2023 Pain in right shoulder 09/20/201808/11 Pain in left shoulder 09/20/20182022 Sprain of wrist, left 02/18/20152017 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 023 Hypoglycemia 10/24/2011 03/08/2012 Contact dermatitis and other eczema, due to unspecified cause 10/18/2011 01/03/2017 Eczematous dermatitis: hands 11/23/2010 02/18/2013 Xerosis cutis 11/23/2010 02/18/2013 Depression 08/30/2010 11/27/2018 Mild dysplasia of cervix 10/27/2009 Impaired glucose tolerance test 01/31/2008 04/16/2008 Onychia and paronychia of toe 09/26/2007 02/18/2013 Nonspecific abnormal results of liver function study 08/24/2007 04/19/2011 Overview: AST 56, ALT 80 in 08-19: 85/79 on repeat ESR 29 in 08-19 HBsAg negative, HCV negative, NL iron studies in 08-19 Anemia, unspecified 01/10/2007 03/08/20 12 Retention of urine, unspecified 01/01/2007 11/27/2018 Fibromyalgia 04/19/2011 documented as of this encounter (statuses as of 01/26/2024) [facility] History of Past illness Narrative* Problem Noted Date Diagnosed Date Resolved Date Pain in right elbow 02/17/2023 08/11/20 23 S/P shoulder surgery 03/18/2022 023 Lateral epicondylitis of left elbow 01/14/2022 04/04/2022 Right arm weakness 06/25/2021 Decreased ROM of right shoulder 06/25/2021 09/17/2021 Tear of right rotator cuff 06/22/2021 0 06/22/2021 Impingement syndrome of right shoulder 06/22/2021 08/11/2023 Hypercalcemia 05/19/2021 02/06/2023 Status post subacromial decompression 05/29/2020 09/17/2021 Plantar fasciitis 08/02/2019 09/17/2021 Ureterolithiasis 07/18/2019 02/06/2023 Pain in right shoulder 09/20/201808/11 Pain in left shoulder 09/20/20182022 Sprain of wrist, left 02/18/20152017 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 023 Hypoglycemia 10/24/2011 03/08/2012 Contact dermatitis and other eczema, due to unspecified cause 10/18/2011 01/03/2017 Eczematous dermatitis: hands 11/23/2010 02/18/2013 Xerosis cutis 11/23/2010 02/18/2013 Depression 08/30/2010 11/27/2018 Mild dysplasia of cervix 10/27/2009 Impaired glucose tolerance test 01/31/2008 04/16/2008 Onychia and paronychia of toe 09/26/2007 02/18/2013 Nonspecific abnormal results of liver function study 08/24/2007 04/19/2011 Overview: AST 56, ALT 80 in 08-19: 85/79 on repeat ESR 29 in 08-19 HBsAg negative, HCV negative, NL iron studies in 08-19 Anemia, unspecified 01/10/2007 03/08/20 12 Retention of urine, unspecified 01/01/2007 11/27/2018 Fibromyalgia 04/19/2011 documented as of this encounter (statuses as of 01/29/2024) [facility] History of Past illness Narrative* Problem Noted Date Diagnosed Date Resolved Date Pain in right elbow 02/17/2023 08/11/20 23 S/P shoulder surgery 03/18/2022 023 Lateral epicondylitis of left elbow 01/14/2022 04/04/2022 Right arm weakness 06/25/2021 Decreased ROM of right shoulder 06/25/2021 09/17/2021 Tear of right rotator cuff 06/22/2021 0 06/22/2021 Impingement syndrome of right shoulder 06/22/2021 08/11/2023 Hypercalcemia 05/19/2021 02/06/2023 Status post subacromial decompression 05/29/2020 09/17/2021 Plantar fasciitis 08/02/2019 09/17/2021 Ureterolithiasis 07/18/2019 02/06/2023 Pain in right shoulder 09/20/201808/11 Pain in left shoulder 09/20/20182022 Sprain of wrist, left 02/18/20152017 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 023 Hypoglycemia 10/24/2011 03/08/2012 Contact dermatitis and other eczema, due to unspecified cause 10/18/2011 01/03/2017 Eczematous dermatitis: hands 11/23/2010 02/18/2013 Xerosis cutis 11/23/2010 02/18/2013 Depression 08/30/2010 11/27/2018 Mild dysplasia of cervix 10/27/2009 Impaired glucose tolerance test 01/31/2008 04/16/2008 Onychia and paronychia of toe 09/26/2007 02/18/2013 Nonspecific abnormal results of liver function study 08/24/2007 04/19/2011 Overview: AST 56, ALT 80 in 08-19: 85/79 on repeat ESR 29 in 08-19 HBsAg negative, HCV negative, NL iron studies in 08-19 Anemia, unspecified 01/10/2007 03/08/20 12 Retention of urine, unspecified 01/01/2007 11/27/2018 Fibromyalgia 04/19/2011 documented as of this encounter (statuses as of 01/29/2024) [facility] History of Past illness Narrative* Problem Noted Date Diagnosed Date Resolved Date Pain in right elbow 02/17/2023 08/11/20 23 S/P shoulder surgery 03/18/2022 023 Lateral epicondylitis of left elbow 01/14/2022 04/04/2022 Right arm weakness 06/25/2021 Decreased ROM of right shoulder 06/25/2021 09/17/2021 Tear of right rotator cuff 06/22/2021 0 06/22/2021 Impingement syndrome of right shoulder 06/22/2021 08/11/2023 Hypercalcemia 05/19/2021 02/06/2023 Status post subacromial decompression 05/29/2020 09/17/2021 Plantar fasciitis 08/02/2019 09/17/2021 Ureterolithiasis 07/18/2019 02/06/2023 Pain in right shoulder 09/20/201808/11 Pain in left shoulder 09/20/20182022 Sprain of wrist, left 02/18/20152017 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 023 Hypoglycemia 10/24/2011 03/08/2012 Contact dermatitis and other eczema, due to unspecified cause 10/18/2011 01/03/2017 Eczematous dermatitis: hands 11/23/2010 02/18/2013 Xerosis cutis 11/23/2010 02/18/2013 Depression 08/30/2010 11/27/2018 Mild dysplasia of cervix 10/27/2009 Impaired glucose tolerance test 01/31/2008 04/16/2008 Onychia and paronychia of toe 09/26/2007 02/18/2013 Nonspecific abnormal results of liver function study 08/24/2007 04/19/2011 Overview: AST 56, ALT 80 in 08-19: 85/79 on repeat ESR 29 in 08-19 HBsAg negative, HCV negative, NL iron studies in 08-19 Anemia, unspecified 01/10/2007 03/08/20 12 Retention of urine, unspecified 01/01/2007 11/27/2018 Fibromyalgia 04/19/2011 documented as of this encounter (statuses as of 02/02/2024) [facility] History of Past illness Narrative* Problem Noted Date Diagnosed Date Resolved Date Pain in right elbow 02/17/2023 08/11/20 23 S/P shoulder surgery 03/18/2022 023 Lateral epicondylitis of left elbow 01/14/2022 04/04/2022 Right arm weakness 06/25/2021 Decreased ROM of right shoulder 06/25/2021 09/17/2021 Tear of right rotator cuff 06/22/2021 0 06/22/2021 Impingement syndrome of right shoulder 06/22/2021 08/11/2023 Hypercalcemia 05/19/2021 02/06/2023 Status post subacromial decompression 05/29/2020 09/17/2021 Plantar fasciitis 08/02/2019 09/17/2021 Ureterolithiasis 07/18/2019 02/06/2023 Pain in right shoulder 09/20/201808/11 Pain in left shoulder 09/20/20182022 Sprain of wrist, left 02/18/20152017 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 023 Hypoglycemia 10/24/2011 03/08/2012 Contact dermatitis and other eczema, due to unspecified cause 10/18/2011 01/03/2017 Eczematous dermatitis: hands 11/23/2010 02/18/2013 Xerosis cutis 11/23/2010 02/18/2013 Depression 08/30/2010 11/27/2018 Mild dysplasia of cervix 10/27/2009 Impaired glucose tolerance test 01/31/2008 04/16/2008 Onychia and paronychia of toe 09/26/2007 02/18/2013 Nonspecific abnormal results of liver function study 08/24/2007 04/19/2011 Overview: AST 56, ALT 80 in 08-19: 85/79 on repeat ESR 29 in 08-19 HBsAg negative, HCV negative, NL iron studies in 08-19 Anemia, unspecified 01/10/2007 03/08/20 12 Retention of urine, unspecified 01/01/2007 11/27/2018 Fibromyalgia 04/19/2011 documented as of this encounter (statuses as of 02/02/2024) [facility] History of Past illness Narrative* Problem Noted Date Diagnosed Date Resolved Date Pain in right elbow 02/17/2023 08/11/20 23 S/P shoulder surgery 03/18/2022 023 Lateral epicondylitis of left elbow 01/14/2022 04/04/2022 Right arm weakness 06/25/2021 Decreased ROM of right shoulder 06/25/2021 09/17/2021 Tear of right rotator cuff 06/22/2021 0 06/22/2021 Impingement syndrome of right shoulder 06/22/2021 08/11/2023 Hypercalcemia 05/19/2021 02/06/2023 Status post subacromial decompression 05/29/2020 09/17/2021 Plantar fasciitis 08/02/2019 09/17/2021 Ureterolithiasis 07/18/2019 02/06/2023 Pain in right shoulder 09/20/201808/11 Pain in left shoulder 09/20/20182022 Sprain of wrist, left 02/18/20152017 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 023 Hypoglycemia 10/24/2011 03/08/2012 Contact dermatitis and other eczema, due to unspecified cause 10/18/2011 01/03/2017 Eczematous dermatitis: hands 11/23/2010 02/18/2013 Xerosis cutis 11/23/2010 02/18/2013 Depression 08/30/2010 11/27/2018 Mild dysplasia of cervix 10/27/2009 Impaired glucose tolerance test 01/31/2008 04/16/2008 Onychia and paronychia of toe 09/26/2007 02/18/2013 Nonspecific abnormal results of liver function study 08/24/2007 04/19/2011 Overview: AST 56, ALT 80 in 08-19: 85/79 on repeat ESR 29 in 08-19 HBsAg negative, HCV negative, NL iron studies in 08-19 Anemia, unspecified 01/10/2007 03/08/20 12 Retention of urine, unspecified 01/01/2007 11/27/2018 Fibromyalgia 04/19/2011 documented as of this encounter (statuses as of 02/02/2024) [facility] History of Past illness Narrative* Problem Noted Date Diagnosed Date Resolved Date Pain in right elbow 02/17/2023 08/11/20 23 S/P shoulder surgery 03/18/2022 023 Lateral epicondylitis of left elbow 01/14/2022 04/04/2022 Right arm weakness 06/25/2021 Decreased ROM of right shoulder 06/25/2021 09/17/2021 Tear of right rotator cuff 06/22/2021 0 06/22/2021 Impingement syndrome of right shoulder 06/22/2021 08/11/2023 Hypercalcemia 05/19/2021 02/06/2023 Status post subacromial decompression 05/29/2020 09/17/2021 Plantar fasciitis 08/02/2019 09/17/2021 Ureterolithiasis 07/18/2019 02/06/2023 Pain in right shoulder 09/20/201808/11 Pain in left shoulder 09/20/20182022 Sprain of wrist, left 02/18/20152017 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 023 Hypoglycemia 10/24/2011 03/08/2012 Contact dermatitis and other eczema, due to unspecified cause 10/18/2011 01/03/2017 Eczematous dermatitis: hands 11/23/2010 02/18/2013 Xerosis cutis 11/23/2010 02/18/2013 Depression 08/30/2010 11/27/2018 Mild dysplasia of cervix 10/27/2009 Impaired glucose tolerance test 01/31/2008 04/16/2008 Onychia and paronychia of toe 09/26/2007 02/18/2013 Nonspecific abnormal results of liver function study 08/24/2007 04/19/2011 Overview: AST 56, ALT 80 in 08-19: 85/79 on repeat ESR 29 in 08-19 HBsAg negative, HCV negative, NL iron studies in 08-19 Anemia, unspecified 01/10/2007 03/08/20 12 Retention of urine, unspecified 01/01/2007 11/27/2018 Fibromyalgia 04/19/2011 documented as of this encounter (statuses as of 02/16/2024) [facility] History of Present illness Narrative* Roseline Jacobo, PT - 02/17/2023 10:30 AM EDT Episode Visit Count: 1 Therapist That Will Accept/Oversee The Plan Of Care: Roseline Jacobo Start of Care Date: 02/17/23 Onset Date: 01/17/23 Plan of Care Certification Date: 05/10/22 Next Certification Due Date: 06/24/22 Patient Identified by Name and Date of : Yes [facility]ER[facility] PHYSICAL THERAPY EVALUATION PLAN OF CARE: Assessment: Sid Lezama presents s/p Tenjet R common extensor tendon elbow. (Post surgical protocol per order) Also with history of right RTC repair and bicep tenotomy 2020 that pt voices neverfully recovered from due to elbow limitations and continues to have pain and limitations from. Pt demonstrates right shoulder, elbow, and right wrist weakness and minor right shoulder ROM limitations. PROMIS (Patient-Reported Outcomes Measurement Information System) scores were reviewed and pt doesdemonstrate deficits with self efficacy and physical functional Prognosis for therapy is Good due to: current objective clinical presentation, good support system/ coping skills . She will benefit [facility] skilled [facility] services to meet the goals established for this plan of care as noted below to address primarily elbow and right shoulder dysfunction as appropriate to return pt to premorbid status. Goals for Episode of Care: created on 02/17/23 through 04/18/23 [place] in home exercise program. Patient will decrease pain rating by 2 points to meet minimal clinical important difference for numeric pain rating scale. Patient will demonstrate increase in right UE and scapular strength to 5/5 during manual muscle testing in order to improve function for prior functional tasks. Patient will increase flexibility of right shoulder complex to WNL to improve ability to maintain proper posture, improve mechanics, and decrease pain. Improve postural awareness. Planned Interventions, Frequency, and Duration: Current Frequency: 2x/week Duration: 8 weeks Total Number of Visits Planned: 16 Planned Treatment Interventions: Therapeutic exercise (42030), Neuromuscular re- education (78277), Manual therapy (15913), Therapeutic activities (25434), Self- snf management (49146), Gait Training (59161), Patient/Family/Caregiver Education PLAN FOR NEXT VISIT: Continue per post surgical protocol. Consider scpaular stabilization in hooklying or prone. Can initiate gentle isotonics at 4 weeks pending pain. Patient demonstrates good understanding of plan of care and treatment. The above goals and plan of care were discussed and agreed upon by patient/family. SUBJECTIVE: Sid Lezama is a 47 year old female seen today for R hand dominant. Chronic R elbow pain. Overuse. TenJet 01/17/23. History of R RTC 06/2021. Not fully recovered from due to elbow pain. Had bicep tenotomy. Intermittent pinky tingling. 2-5/10 R lateral elbow pain. Shoulder pain 2/10 constant anterior pain intermittent 4/10 pain with movement. Pain: see above PROMIS Scales Higher is Better 02/14/2023 12/15/2022 05/24/2022 Phys Func - Score 32 (moderate dysfunction) 41 (mild dysfunction) 39 (moderate dysfunction) Phys Func - Percentile 4 % 18 % 14 % Self-Eff Symptom - Score 54 (Average) - 42 (Average) Self-Eff Symptom - Percentile 66 % - 21 % T-scores: mean of general population = 50. 5 points is clinically meaningfully difference Percentiles provide an indication of how the patient's score ranks in relation to the general population. Higher percentile rankings indicate better function/quality of life. 50th percentile is the average of the general population and indicates half of respondents had a worse score. OBJECTIVE MEASURES WITH LEVEL OF FUNCTION: UE AROM R UE AROM: full B elbow ROM with minor pain R with flexion and extension, R shoulder AROM full except minor ER limitation with funcitonal reaching UE and Cervical Strength Strength Tested: Shoulder All, Distal UE, Hand R Shoulder Flexion: 5/5 R Shoulder Abduction (C5): 4+/5 R Shoulder Internal Rotation: 5/5 R Shoulder External Rotation: 4-/5 (pain) R Elbow Extension (C7): 5/5 R Elbow Flexion (C6): 4+/5 R Forearm Supination: 4+/5 R Forearm Pronation: 4+/5 R Wrist Extension: 4+/5 R Wrist Flexion: 5/5 L Shoulder Extension: 5/5 L Shoulder Flexion: 4+/5 L Shoulder Abduction (C5): 5/5 L Shoulder Internal Rotation: 5/5 L Shoulder External Rotation: 5/5 L Elbow Extension (C7): 5/5 L Elbow Flexion (C6): 5/5 L Wrist Radial Deviation: 5/5 L Wrist Ulnar Deviation: 5/5 Education: Education Learning/educational needs: Home exercise program, Plan of Care TREATMENT: PT Treatment Interventions: Therapeutic Exercise, Self-Usp Management Evaluation Therapeutic Exercise: 1: *shoulder flexion isometrics: flex, IR, ER, Extn, ABD, ADD 5 x 10 sec ea 2: *bicep isometrics 5 x 10 sec 3: *wrist isometrics 5 x 10 sec 4: *scap pinches 5 x 10 sec Skilled Intervention: Patient was educated in proper exercise technique and purpose for exercises. Skilled judgment was provided in selection of appropriate interventions. Provided written instruction for home exercise program to facilitate proper performance and compliance. Correct performance of therapeutic exercises was facilitated with verbal and visual cuing. Self-Usp Management: 1: eval findings, HEP and parameters, POC, post surgical restrictions/protocol, icing, scapular position Skilled Intervention: Skilled judgment in the selection of proper modification for activity of daily living/home management based on clinical presentation, deficits, and needs. Billing * Evaluation Low Complexity: 1 Unit Therapeutic Exercise Treatment Minutes: 15 Self-Care/Home Management Treatment Minutes: 5 Total Treatment Time Minutes (timed/untimed): 45 Roseline Jacobo PT documented in this encounterV[facility]04[facility]23 Miscellaneous Notes* Telephone Encounter - Neisha Thomas RN - 02/13/2023 2:43 PM EDT Called patient, she was currently at [facility], so could not preform finger stick. Went over instructions from Dr. Harrison- she verbalized understanding and will update on Monday. Was told to reach out if having any hypoglycemia symptoms. Thanks Neisha Thomas RN [facility] * Telephone Encounter - Panda Harrison MD - 02/13/2023 2:28 PM EDT Please ask patient to take simultaneous fingerstick glucose and scan Freestyle Gianfranco. If within 30 mg/dL of each other, go ahead and start Lantus 8 units now (afternoon) Starting tomorrow take 12 units every morning Send me a note Monday to let me know how she is doing and for further Lantus instructions Please review treatment for hypoglycemia I will be away May 19- so need to give her instructions. Thank you CGM download - below Summary of CGM Findings: - Time in range is not at target. - Coefficient of variation indicates stable glycemic variability - Time spent in hypoglycemia is at target. * Hypoglycemia patterns: none *Nocturnal hypoglycemia was not noted - Time spent in hyperglycemia is not at target * Hyperglycemia patterns: high all throughout - Pattern: hyper as above Recommendation: see Assessment/Plan above * Telephone Encounter - Neisha Thomas RN - 02/13/2023 9:36 AM EDT Images from the original note were not included. Called patient to follow up on BG, states she received a steroid shot on 02/07. Uses Gianfranco 2. Has appointment with Bernabe on 02/20. Has been increasing water intake over the weekend. Reading while on phone:: [phone] - has not ate yet only drank coffee. Has lantus on hand if needs to take. Denies any N/V, abdominal pain, frequent urination or thirst. Advised I would forward to Dr. Harrison for recommendations. Neisha Thomas RN [facility] Gianfranco readings: documented in this encounterVeter[facility] Administration03-22-2023 Miscellaneous Notes* Telephone Encounter - Aury Powers APRN.CNP - 02/01/2023 7:04 PM EDT PDMP website checked and validated. All prescriptions have been APPROPRIATELY filled. No suspiciousactivity was identified. 02/01/2023 by Aury Powers APRN.CNP * Telephone Encounter - Rafia Holland LPN - 02/01/2023 1:31 PM EDT Patient has been identified by name and date of : Patient phones for refill(s): Requested Prescriptions Pending Prescriptions Disp Refills pregabalin (LYRICA) 150 mg capsule 270 capsule 1 Sig: Take 1 capsule by mouth three times daily for 180 days. Date of last office visit in primary care: 01/19/2023, has appt 02/06/2023 Last 2 Encounter Wt Readings: Date: Wt: 01/19/2023 78.9 kg (174 lb) 12/22/2022 79.8 kg (176 lb) Previous labs/tests for medication: Not applicable Please advise. Thank you. Rafia Holland LPN Patient requesting rx to be sent local pharmacy. documented in this encounterVeterans Health Administration03-17-2023 History of Present illness Narrative* Mika Simmons, DO - 01/27/2023 9:43 AM EDTAssociated Order(s): Minimally Invasive Tenotomy - Right CET (elbow) Post-Procedure Diagnose(s): Right tennis elbow PROCEDURE DOCUMENTATION NOTE DIAGNOSIS: Right tennis elbow (primary encounter diagnosis) PROCEDURE DETAILS: Minimally Invasive Tenotomy - Right CET (elbow) Informed Consent Consent Obtained: Written [place] Protocol A moment to CARE was completed. SIGN IN Personnel directly involved with the procedure wore the appropriate PPE. Patient/Surrogate Stated/Verified: Patient name, Date of , Relevant allergies and Intended procedure TIME OUT Intended patient and procedure match the source document(s). Consent documented and matches the intended procedure. Relevant labs, photos, and/or imaging studies have been reviewed. Correct side/site marked and visible. Medications required for procedure verified. 01/27/2023 9:46 AM The procedure site was prepped in the usual sterile fashion. Site: Right common extensor tenon Details:Musculoskeletal ultrasound was utilized to successfully localize placement of the injectionneedle at the appropriate site. Ultrasound images demonstrating local vasculature and demonstratinginjection of solution were saved. Minimally Invasive Tenotomy (TenJet) The treatment area was cleaned and draped in sterile fashion. Using sterile technique, musculoskeletal ultrasound (MSK-US) was used to successfully localize the area of pathology to be treated today.A monica with a sterile marker was placed on the skin in the area of the intended incision site. Using sterile technique, the area of treatment was visualized under MSK-US where infiltration of anesthetic was utilized with a guiding needle. A separate injection was utilized to create a skin wheal at the incision site to control procedural bleeding. After acceptable regional anesthesia was reached, a 11-blade scalpel was utilized to make a stab incision at the marked treatment site. The Hydrocision TenJet needle device, under constant physician guided MSK-US visualization, was inserted to the area of pathological tissue. Maintaining this visualization, degenerative tissue was debrided and confirmed by the treating physician. Upon satisfaction of removal of the targeted degenerative tissue, the TenJet needle device was removed, compression was applied to the incisional site with sterile gauze. Bleeding was controlled and sterile strips were applied, with occlusive dressing and compression bandage. Patient left the procedure room in satisfactory condition having tolerated the procedure well. Outcome: tolerated well, no immediate complications Post-injection instructions were reviewed with the patient and the patient voiced understanding of these instructions. Estimated blood loss less than 5 mL no complications, Estimated blood loss less than 5 mL. SIGN OUT All instruments, equipment, possible retained foreign bodies accounted for. Post-procedure follow-up management communicated and Plan of Care Visit completed when applicable Mika Simmons DO Sports Medicine & Interventional Orthopaedics Department of Orthopaedic Surgery [facility] documented in this encounterVeterans Health Administration03-17-2023 Instructions* Patient Instructions* Maggy Durantkimber Ma - 01/27/2023 9:36 AM EDT [facility] POST-PROCEDURE INSTRUCTIONS ELBOW 1. WOUND CARE - Keep bandages and procedure area clean and dry for 5 days - Avoid submerging area in water for 5 days - You did not have any sutures or stitches placed. Steri-strips were placed over the wound. These will fall off in the shower after about one week. If they have not fallen off after the first 9 days,you can remove them yourself. - Please contact our office if: - The area become red or hot to touch - You have a fever of 100 or more - You have increased pain or swelling - You have drainage from the treatment site 2. POST-PROCEDURE PAIN CONTROL - You may apply ice for 20 minutes as needed for discomfort - You may take over the counter pain medication or antiinflammatory medication as directed, if prescribed by your physician and if you have had no problems taking these in the past. 3. WEEK BY WEEK SCHEDULE Week 1 Wrist brace for the first 5 days, gentle range of motion, no lifting, pushing, pulling >5lbs Week 2 Continued range of motion, no lifting, pushing, pulling >10lbs Week 3-5 Begin post-TenJet physical therapy protocol, rice bucket therapy at home. Week 6 Send a [employer] message to Dr. Simmons in 7-8 weeks Week 7+ Follow yp with Dr. Simmons in 3 months documented in this encounterVeterans Health Administration03-07-2023 History of Present illness Narrative* Helio Teresa MD - 01/17/2023 3:30 PM EST [facility] Endocrine Metabolism [facility] Helio Teresa M.D. [facility] [place] [address] Name: Sid Lezama [facility] Number: [id number] Date of Service: January 17, 2023 Sid Lezama has been referred by Dr. Harrison for evaluation of hyperparathyroidism. My assessment and recommendation for this patient will be communicated via shared medical records. Thank you for referring this patient to me. As you know, she is a 47 year old woman who was found to have elevated calcium levels during routine blood works. Subsequently biochemical workup also revealed an elevated PTH level. The diagnosis of primary hyperparathyroidism was made, and she was referred here for further evaluation. Looking back, her calcium levels have been high for a couple of years. She had one episode of kidney stone several years ago. Ms. Lezama has multiple medical issues including Crohn's disease (s/p total colectomy with ileostomy), hereditary hemachromatosis, BARNES, DM and RA. She denies issues with prior anesthesia. Her medication list was reviewed today and she has allergy to multiple medication. In terms of family history, there is no one with parathyroid disease. And she has had no personal history of head and neck radiation. She is not a smoker. And she is and worked in [employer] for [employer]. In terms of symptoms related to hyperparathyroidism, she reports the following symptoms: kidney stones and osteopenia. Additional review of system showed the following pertinent findings: fatigue-no, weight problems-no, skin rash-no, shortness of breath-no, chest pain-no, heartburn/reflux-no, bleeding problems or easy bruising-no, headaches-no, anxiety-no and depression-no. - PARATHYROID DATA SHEET Latest Ref Rng & Units 04/19/2022 05/24/2022 08/09/2022 10/13/2022 12/01/2022 12/15/2022 12/20/2022 CALCIUM 8.5 - 10.2 mg/dL CALCIUM 8.5 - 10.2 mg/dL 11.0 (H) 10.5 (H) PTH, INTACT 15 - 65 pg/mL PTH, INTACT 15 - 65 pg/mL 51 PHOSPHORUS 2.7 - 4.8 mg/dL 3.0 ALKALINE PHOSPHATASE 34 - 123 U/L 107 122 130 (H) 112 91 107 CREAT 0.58 - 0.96 mg/dL CREATININE 0.58 - 0.96 mg/dL 0.59 0.60 VITAMIN D 25 HYDROXY 31.0 - 80.0 ng/mL VITAMIN D 25 HYDROXY 31.0 - 80.0 ng/mL 58.5 62.6 VIT D1,25 DIHYDROXY 19.9 - 79.3 pg/mL 151.0 (H) ALBUMIN 3.9 - 4.9 g/dL ALBUMIN 3.9 - 4.9 g/dL 4.5 4.6 4.3 4.2 4.4 4.5 CREATININE 24 HR UR 0.800 - 1.800 g/24 hr 1.331 CALCIUM, URINE 24 HR 100.0 - 300.0 mg/24 hr 319.7 (H) She has not had a MIBI yet. The most recent bone density scan on 09/2021 revealed a T-score of -1.9of the femoral neck, which was the lowest T-score, consistent with osteopenia. On physical exam, Ms. Lezama is a well appearing, alert and oriented woman who looks euthyroid. She walks with a normal gait. She does have glasses. There is no obvious skin rash or lesions. On inspection the skin over the anterior neck is smooth, no mass is visualized . Palpation revealed neck to be supple, thyroid gland is palpable and overall normal in size. No lymphadenopathy was palpated on either side of the neck. The heart is regular rate and rhythm and she breathes with ease at rest. There is no obvious extremity deformity. A neck US was performed in the procedure room today. This revealed the thyroid gland to be overall normal in size, with slightly coarse echogenicity. There is one subcentimeter thyroid nodule(s) seenin the right lobe. There was no area seen on ultrasound to suggest an abnormal parathyroid gland. There are benign appearing lymph nodes seen in the lateral neck compartments bilaterally. Assessment/Plan: This is a 47 year old patient with biochemical studies that shows primary hyperparathyroidism. Given her clinical findings, she would be best served by undergoing a parathyroid exploration. The surgical procedure, including the risks and benefits were discussed with the patient. Inaddition, she will need to undergo pre-operative testing to clear her for surgery. She is not interested in surgery at this point as she wants to try a holistic approach for six months first. She knows to follow up with Dr. Harrison. We discussed about the longitudinal float operator complication of kidney stones andosteoporosis. I reminded her to have her forearm DEXA done this year. All her questions have been an swered today. And she will contact my office if there is any additional questions. I appreciate being involved in the care of your patient and please feel free to contact me should you have any questions or concerns. Helio Teresa MD documented in this encounterVeterans Health Administration03-03-2023 History of Present illness Narrative* Shira Matta - 01/13/2023 11:30 AM EST [facility] Specialty Refill Assessment Medication(s): Samuel Patient's current medication list and adherence status to current therapy were reviewed by Specialty Pharmacy clinical pharmacist to identify any new drug interactions or non-compliance to therapy. Therapy continues to be appropriate for disease, patient response, and medical condition. Verification of therapeutic benefit and effectiveness with current therapy was completed. Adverse events, barriers in adherence, and side effects were assessed and addressed if applicable. Will proceed with refill with no changes in therapy - patient progressing towards achieving therapeutic goals based on medication- specific laboratory parameters, disease state markers and outcomes. Feeder Operator Assessment Patient confirmed: Yes Med/dose confirmed: Yes Supplies needed: No supplies needed Missed doses: No Estimated days supply on hand: 0 Next cycle/dose due: 01/20/23 Copay amount: 0 Payment confirmed: Yes Delivery method: FedEx Signature required: No Delivery address: [address] [place] [id number] Delivery date: 01/18/23 Questions or concerns for the pharmacist?: No [facility] Visit Assessment - Inflammatory Conditions: Assessment to use: Refill Vaccination Assessment: Date of influenza vaccination reminder: 12/22/2022 Date of most recent vaccination assessment: 12/22/2022 Treatment Plan Information: Treatment Plan Information: Seronegative spondyloarthropathy Crohn's disease with complication, unspecified gastrointestinal tract location (HCC) Osteoarthritis of spine, unspecified spinal osteoarthritis complication status, unspecified spinal region Stelara - Inject 45 mg (1 syringe) subcutaneously at weeks 0 and 4 followed by every 12 weeks thereafter. Est. Tx Plan Start Date: 12/23/2022 Estimated Treatment Duration: Until loss of efficacy and/or no longer tolerated. Shira Matta CPhT, Inflammatory/Allergy [facility] [phone] documented in this encounterVeterans Health Administration02-24-2023 Miscellaneous Notes* Telephone Encounter - Marilu Sanchez - 01/06/2023 8:51 AM EST 01/06/23: DEXA-forearm and MIBI ordered. Patient not called yet. ENDOCRINE SURGERY PATIENT WORKSHEET Initial Call Date: January 06, 2023 Reason for Consult/ Referral: Hyperparathyroid PATIENT DEMOGRAPHICS Name: Sid Lezama [facility]#: [id number] : 1975 AGE: [age] year old Contact Numbers: Home: (home) Work: There is no work phone number on file. PATIENT PHYSICIAN INFORMATION Referring Doctor: Panda Harrison Address: Phone: Computer Systems Architect: same Address: Phone: PCP: Grayson Phan [address] [place] [address] PAST TREATMENT Office notes: SEE EPIC Medications: NONE THAT APPLY Pre-Visit Testing Component Latest Ref Rng & Units 12/20/2022 Glucose 74 - 99 mg/dL 82 BUN 7 - 21 mg/dL 9 Creatinine 0.58 - 0.96 mg/dL 0.60 Sodium 136 - 144 mmol/L 140 Potassium 3.7 - 5.1 mmol/L 3.4 (L) Chloride 97 - 105 mmol/L 99 CO2 22 - 30 mmol/L 30 Anion Gap 9 - 18 mmol/L 11 Calcium 8.5 - 10.2 mg/dL 10.5 (H) eGFR >=60 mL/min/1.73m 112 Phosphorus 2.7 - 4.8 mg/dL 3.0 Vit D1,25 Dihydroxy 19.9 - 79.3 pg/mL 151.0 (H) Vitamin D 25 Hydroxy 31.0 - 80.0 ng/mL 62.6 PTH, Intact 15 - 65 pg/mL 51 Albumin 3.9 - 4.9 g/dL 4.5 Component Latest Ref Rng & Units 05/24/2022 05/24/2022 10:15 AM 10:18 AM Creatinine 24 hr Ur 0.800 - 1.800 g/24 hr 1.331 Period hours 24 24 Urine Volume 24 hour mL 1,150 1,150 Calcium, 24 Hr Urine 100.0 - 300.0 mg/24 hr 319.7 (H) Imaging Reports: SEE EPIC CD of Images: SEE EPIC FNA: no FNA Slides: N/A Has the patient ever had thyroid or parathyroid surgery before: No Operative Reports: NONE AVAILABLE Pathology Reports: NONE AVAILABLE documented in this encounterVeterans Health Administration02-23-2023 History of Present illness Narrative* Safia Kennedy PA-C - 01/05/2023 10:24 AM EST Patient fasting for 3 hours:Yes Any implanted devices:No Possibility of :No Fibroscan was performed on January 05, 2023, by Fanta Green RN and results are interpreted by Safia Kennedy PA-C Diagnosis: Fatty liver Please refer to get images report for individual readings Number of readings: 10 IQR %: 13% E (kpa): 7.8 CAP: 285 Impression The reading was adequate. FS=7.8 kPA. The CAP score is 285 and corresponds to steatosis grade of S2. This reading corresponds: A 91% chance of stage 0-2 fibrosis A 9% chance of stage 3-4 fibrosis (advanced fibrosis) A 1.3% chance of stage 4 fibrosis (cirrhosis). Safia Kennedy PA-C NAFLD Fibroscan Fibrosis Risk <7 kPA = F0-F2 97%, F3+F4 3%, F4 <1% <10 kPA = F0-F2 91%, F3+F4 9%, F4 1.3% 10-15 kPA = F0-F2 56%, F3+F4 43%, F4 14% >15 kPA = F0-F2 26%, F3+F4 74%, F4 46% Grade CAP value up to 237 dB/M corresponds to S0 (< 10 % Fat) CAP value between (238 - 258 dB/M) corresponds to S1 (>/= 11 % Fat) CAP value between (259 - 289 dB/M) corresponds to S2 (>/= 33 % Fat) CAP value > 290dB/M corresponds to S3 (>/= 67 % Fat) stage 0 ( S0:< 10 % steatosis) stage 1 (>/= S1: 11%-33% steatosis) stage 2 (>/= S2: 34%-66% steatosis) stage 3 (>/= S3: > 66% steatosis) Reference Mahamed Y, Adelfo Q, Riby T, Baylee J, Irby H, Isauro T. Controlled attenuation parameter for assessment of hepatic steatosis grades: a diagnostic meta-analysis. Int J Clin Exp Med. 2015 Aug 15;8(10):88195-36.PMID: 25208419; PMCID: [id number]. Silviano Mack, Andrew CHAKA, Dayana M, Vandana F, Dnayelle J, Shira O, Brijesh F, Jennifer M, Larry G, Debra A, Elizabeth E, Ulysses L, Itzel G, Trinidad A, Miki U, Arriola S, CalVero, Winnie V, Dias V, Tiffany M, Yahaira COOPER. Refining the Baveno elastography criteria for the definition of compensated advanced chronic liver disease. J Hepatol. 2020;74(5):6632-2482. doi: 10.1016/j.jhep.2020.11.050. Ep2019Oct 21. PMID: 62800332. documented in this encounterVeterans Health Administration02-09-2023 History of Present illness Narrative* Albina Rodgers APRN.SQL ANALYST - 12/22/2022 11:30 AM EST VIRTUAL VISIT FOLLOW UP Sid Lezama [id number] 1975 has requested a video telemedicine follow- up visit. Sid Lezama verbalized informed consent to proceed with the video telemedicine follow-up visit. Sid Lezama was informed that the details of this video visit would be recorded as part of their electronic medical record. Patient location at time of call: Home Additional encounter participants and relationship: None Patient presents with: Crohns I had a virtual visit with Ms. Lezama today for follow up of Crohn's disease. Last seen 07/26/22. UPDATED HISTORY: -Bad gas, sour stomach, and belching Current Clinical Symptoms w/ Ostomy: Frequency of emptying ba-4 (1-2 at night) Fullness of bag when emptied: 1/2-3/4 Consistency: watery Blood: no Frequency of changing bag: every 7 days Any skin issues around stoma site: see stoma nurses Abnormal drainage around stoma: no Abdominal pain: does have pelvic pain Abdominal distention: Nausea/vomiting: no Heartburn: no Appetite/tolerating diet: decreased - mostly eats protein shakes Weight loss over last 3 months: no EIMs - ankylosing spondylitis & psoriasis Denies NSAIDs Denies smoking 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 Crohn's disease (HCC) Diabetes 01/31/2008 Dysthymic disorder Depression (non-psychotic) Ileostomy status (HCC) 09/28/2007 Lumbago 01/10/2007 Myalgia and myositis, unspecified Pain management Dr Stern Nonalcoholic fatty liver disease 08/24/2007 Other and unspecified hyperlipidemia 01/10/2007 PMH - PAST MEDICAL HISTORY OF Cx scarred to post vag wall/difficult exam Pneumonia, organism unspecified(486) 01/10/2007 Regional enteritis of large intestine (HCC) 08/07/2006 Retention of urine, unspecified 01/01/2007 Rheumatoid arthritis(714.0) Dr. Mc, [facility] Type II or unspecified type diabetes mellitus without mention of complication, not stated as uncontrolled Ureterolithiasis 07/18/2019 PAST SURGICAL HISTORY Procedure Laterality Date ADENOIDECTOMY PRIMARY <AGE 11 1986 Adenoidectomy ARTHROSCOPY KNEE DIAGNOSTIC W/WO SYNOVIAL BX SPX 1989 Arthroscopy, knee, left BRNCHSC INCL FLUOR GDNCE DX W/CELL WASHG SPX January 2007 Bronchoscopy EPIDURAL 2011 multiple ones done by Dr. Beckett PAST SURGICAL HISTORY OF 06/2000 ILEOSTOMY/COLECTOMY PAST SURGICAL HISTORY OF 1993 CRYOCAUTERY/ MILD DYSPLASIA PAST SURGICAL HISTORY OF March 2006 Abdominal abscess with anal fistula PRCTECT COMPL W/STOT/TOT COLCT W/VENEER JOINER BXS 2006 AP endoanal proctectomy SHOULDER ARTHROSCOPY/SURGERY Left 05/06/2020 Rotator cuff debridement, subacromial decompression/arthroplasty TONSILLECTOMY PRIMARY/SECONDARY <AGE 11 1986 Tonsillectomy FAMILY HISTORY Problem Relation Age of Onset Alcohol/Drug Mother Hypertension Mother COPD other (vascular disease) Mother other (sleep apnea) Mother other (heart murmur) Mother Alcohol/Drug Father Cancer Father liver Asthma Brother Hypertension Daughter Diabetes Maternal Grandmother Stroke Maternal Grandmother Heart Maternal Grandmother Emphysema Paternal Grandmother Diabetes Paternal Grandfather Macular Degen Paternal Grandfather Anesthesia Problems No Family History Social History Tobacco Use Smoking status: Former Packs/day: 1.00 Years: 16.00 Pack years: 16.00 Types: Cigarettes Quit date: 12/04/2006 Years since quittin.0 Smokeless tobacco: Never Vaping Use Vaping Use: Never used Substance Use Topics Alcohol use: No Drug use: No Current Outpatient Medications Medication Sig Dispense Refill pantoprazole DR (PROTONIX) 40 mg tablet Take 1 tablet by mouth once daily. 60 tablet 2 glucagon (GVOKE) 1 mg/0.2 mL injection Inject 0.2 mL subcutaneously as needed. 0.4 mL 2 ustekinumab (STELARA) 45 mg/0.5 mL sub-Q syringe Inject 45 mg (1 syringe) subcutaneously at weeks 0and 4 followed by every 12 weeks thereafter. 1.5 mL 1 levonorgestrel (MIRENA) 20 mcg/24 hours (8 yrs) 52 mg IUD 1 Each by INTRAUTERINE route as directed.1 Each 0 levonorgestrel (MIRENA) 20 mcg/24 hours (8 yrs) 52 mg IUD 1 Each by INTRAUTERINE route as directed.1 Each 0 metFORMIN (GLUCOPHAGE) 1,000 mg tablet TAKE 1 TABLET TWICE DAILY 180 tablet 2 clobetasol (TEMOVATE) 0.05 % cream Apply to affected area twice daily. Sparingly to feet, knees, palms. 60 g 1 pregabalin (LYRICA) 150 mg capsule Take 1 capsule by mouth three times daily for 180 days. 270 capsule 1 Lancing Device with Lancets ACCU CHEK FASTCLIX LANCET *DEVICE* use to check blood glucose up to 2 times per day as instructed. E11.9 1 Each 11 Lancets (ACCU-CHEK FASTCLIX LANCET DRUM) lancets Use as instructed to check blood glucose up to 2 times daily. E11.9 200 Each 3 blood sugar diagnostic (FREESTYLE PRECISION DAVID STRIPS) test strip Use as instructed E11.9 200 Each2 oxyCODONE-acetaminophen (PERCOCET) 5-325 mg tablet TAKE 1 TABLET BY MOUTH 3 TIMES A DAY NEEDED FOR 28 DAYS semaglutide (OZEMPIC) 2 mg/dose (8 mg/3 mL) pen injector Inject 2 mg subcutaneously one time a week. 15 mL 2 flash glucose sensor (FREESTYLE GIANFRANCO 2 SENSOR) kit Apply new sensor every fourteen (14) days to upper arm. Dx E11.9 6 Each 4 Insulin Lynch, Disposable, (DROPLET PEN NEEDLE) 32 gauge x 5/32 INJECT ONE TIME DAILY 100 Each 0 rizatriptan (MAXALT VENEER JOINER) 10 mg disintegrating tablet Take 1 tablet by mouth as needed for migraine headache (see administration instructions). May repeat in 2 hours if needed 9 tablet 2 albuterol HFA (PROVENTIL HFA, VENTOLIN HFA) 90 mcg/actuation inhaler Inhale 2 Puffs as instructed every 4 hours as needed for wheezing/shortness of breath. 1 Each 1 vits62/FA/om3/dha/epa ( GUMMY ORAL) Take 2 Doses by mouth once daily. fluticasone (FLONASE) 50 mcg/actuation nasal spray Use 2 Sprays in each nostril once daily. 1 Bottle 2 Blood-Glucose Meter (ACCU-CHEK DIANNE) Test blood sugar(s) 2 times daily. Dx: Type 2 DM - Controlled E11.9 Insulin: No, Accu-check brand covered by insurance 1 Each 0 Ascorbic Acid 500 mg chew Take 1,000 mg by mouth once daily. With rosehips elderberry fruit (ELDERBERRY ORAL) Take by mouth. cetirizine (ZYRTEC) 10 mg tablet Take 1 tablet by mouth once daily. 90 tablet 3 Cholecalciferol, Vitamin D3, (VITAMIN D-3) 50 mcg (2,000 unit) cap Take 1 capsule by mouth twice daily. COMPOUNDED PRESCRIPTION 1. V44.2 Ileostomy status (HCC) (primary diagnosis) 2. 555.1 Regional enteritis of large intestine (HCC) Ileostomy Supplies. 1. Pouches, 2. Planges, 3. Felipe seals, 4. Stoma adhesive, 5. Stoma powder, 6. Skin preps, 7. Adhesive remover wipes. Dispense 1 year supplies. 20 bag 11 tiZANidine (ZANAFLEX) 4 mg tablet Take by mouth. . Takes 1 tablet at bedtime. Current Facility-Administered Medications Medication Dose Route Frequency Provider Last Rate Last Admin levonorgestrel 20 mcg/24 hours (8 yrs) 52 mg 1 Each intrauterine device (MIRENA) 1 Each INTRAUTERINE ONCE (AMB - Up to 30 Days) Safia Jamil MD denosumab 60 mg injection (PROLIA) 60 mg SUBCUTANEOUS Q 6 MONTH Panda Harrison MD ALLERGIES Allergen Reactions Azithromycin Unknown thinks a rash Dilaudid [Hydromorp* Swelling migraines Levemir [Insulin De* Other: See Comments Urine turned dark and smelly Methadone Swelling migraine Morphine Swelling migraines Remicade [Inflixima* Intolerance, Rash broke out in blisters with the 6th dose. Ultram [Tramadol Hc* Swelling migraines PHYSICAL FINDINGS OF NOTE: General: alert and appropriate, in no distress and well-hydrated, well nourished, Psych: Appropriate mood and interaction Skin: no rash noted, Respiratory: breathing non-labored, and no grunting/flaring/retractions, Chest: equal chest rise with normal respiratory effort, Neuro: Patient seen sitting with normal appearing strength and coordination REVIEWED ITEMS CBC: WBC (k/uL) Date Value 12/15/2022 9.29 Hematocrit (%) Date Value 12/15/2022 45.8 MCV (fL) Date Value 12/15/2022 87.1 Platelet Count (k/uL) Date Value 12/15/2022 270 Lymph% (%) Date Value 12/15/2022 25.7 Hepatic Function Panel: Albumin (g/dL) Date Value 12/20/2022 4.5 Bilirubin, Total (mg/dL) Date Value 12/15/2022 0.6 Bilirubin, Conjugated (mg/dL) Date Value 12/15/2022 <0.2 Alkaline Phosphatase (U/L) Date Value 12/20/2022 107 AST (U/L) Date Value 12/15/2022 25 ALT (U/L) Date Value 12/15/2022 23 Protein, Total (g/dL) Date Value 12/15/2022 6.9 Assessment IMPRESSION (portions of this note have been copied from Dr. Dykes's prior note and updated to reflect medical decision making today) 46 y/o woman with a medical history of Crohn's disease s/p Total abdominal Colectomy (1999), followed by endo-anal proctectomy (2006). Reports also a history of psoriasis and psoriatic arthritis, diabetes, NAFLD, chronic pain on opiates, migraines, allergic rhinitis, & parathyroid disease. CTe 2021 evaluation suggest no evidence of active disease and fecal anali at that time was normal. Will plan for EGD for upper GI symptoms and ileoscopy. She will be starting Stelara from her slate cutter for her arthritis and psoriasis. She is doing well other than bothersome intermittent symptomsof gas, belching, and the feeling of sour stomach. Will implement Gas-x and switch Pepcid to Protonix. Physician Global Assessment of Disease Activity: normal PLAN -Gas-x QID including before bed -Offered IBD RD but she declined -EGD and ileoscopy -Liquid IV and Drip Drop for electrolyte supplementation with ostomy -Follow up with Dr. Dykes after scopes I spent 17 minutes in the virtual visit, with more than 50% of the total [id number] time of the visit in counseling / coordination of care. I have confirmed and edited as necessary, the PFSH and ROS obtained by others. I will communicate my recommendations and prescriptions to the patient's primary care provider. Unrelated to E/M, telemedicine, or virtual visit service provided within previous 7 days. No E/M service or procedure anticipated within next 24 hours. Albina Rodgers APRN.CNP December 21, 2022 3:12 PM documented in this encounter[facility]02-09-2023 History of Present illness Narrative* Safia Jamil MD - 12/22/2022 8:54 AM EST Supervisor Blood offered: Patient declines. Sid Lezama presents today for IUD check. She had a Mirena placed on 12/08/2022. She has had no complications since placement. REVIEW OF SYSTEMS: Having some spotting and occasional cramping. Overall so far happy with the IUD. Has trouble feeling IUD strings. Still having the LLQ pain and at times RLQ pain as well. PHYSICAL EXAMINATION: BP 120/70 Wt 176 lb (79.8kg) LMP 07/25/2018 ABDOMEN:benign and soft EXTERNAL GENITALIA: Normal genitalia and Bartholins, Urethra, Sken'e normal CERVIX: smooth, no lesions. IUD strings visible. IMPRESSION/PLAN: IUD correctly positioned. Patient counseled regarding monthly string check. Followup for annual exam or sooner if needed. Discussed given change in size of simple ovarian cyst and continued pelvic pain, recommend repeat [facility] pelvic US in about 4 weeks. Safia Jamil DO Medical Decision Making: Problems: Low: Acute, uncomplicated illness or injury Data: Unique test(s) ordered: 1 Risk: Moderate: Drug management Medical Decision Making Level: 3 - Low documented in this encounterVeterans Health Administration02-07-2023 History of Present illness Narrative* Panda Harrison MD - 12/20/2022 10:00 AM EST HISTORY Mrs Sid Lezama is a 46 year old female here for follow-up of Type 2 DM Dyslipidemia and fatty liver- elevated liver enzymes Steroid treatment Low bone mass DIABETES Diagnosed DM in 2006, was having reactive hypoglycemia Complications/comorbidities: retinal hole +neuropathy from cervical problems Elevation high performance protein shake -170 anali, 4 g carb (1 g sugar), 30 g protein Freestyle Gianfranco 2 CGM download - see procedure note Summary of CGM Findings: - Time in range is at target. - Coefficient of variation indicates stable glycemic variability - Time spent in hypoglycemia is at target. * Hypoglycemia patterns: overnight *Nocturnal hypoglycemia was noted - Time spent in hyperglycemia is at target * Hyperglycemia patterns: afternoon - Pattern: hyper and hypo as above Not scanning enough, reminded Recommendation: see Assessment/Plan below STEROIDS/BONE Has ileostomy bag Has Crohn's - no steroids for this, has ileostomy Steroid intake see above under diabetes Has primary hyperparathyroidism and hypercalciuria BMD done in 04/2017 showed lowest Z score -2.3 BMD in 2020 Lowest T score - 1.8 Pertinent decrease (though different machine? bone mineral density of the femoral neck is 0.635 ) 10-year Fracture Risk (FRAX): Major osteoporotic fracture risk 6.% Hip fracture risk 0.9% BUT has hyperparathyroidism Prolia discussed briefly in the past as possibility but now PTH seems to be a player so deferred Prolia for now, might send to surgery pending new labs History of relatedmedications: Metformin started first Januvia started 2011 Glyburide caused lows 50s Lantus Januvia 50 mg daily - stopped when Trulicity started Nov 2018 Trulicity 1.5 mg, mild abd discomfort after eating Farxiga 5 mg - getting yeast infections, stopped Was on atorvastatin, stopped, wanting to go holistic Red yeast rice - stopped Current related medications: (Lantus - 46 units at bedtime-she stopped totally a week ago, hypo, readings still fine last week) Metformin 1000 mg BID Ozempic 2 mg weekly (back ordered, Bydureon in between, now back on ozempic 2mg weekly Calcium intake in diet/supplements: takes nutritional shake Vitamin D intake: Vitamin D3 oral 2000 units 1x daily, multivitamin Some supplements from holistic doctor Occ steroid for pain IUD Still steroid injections to neck (C7) and back L4, L5, S1, S5, last one March 2022 Feels full Seeing GI - I discussed Ozempic might be playing a role Lost weight PMHx/PSHx: Shoulder surgery 06/2020 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, 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 Reflux, changing ranitidine to other because of recall Neg for pancreatitis Crohn's, ileostomy Ovarian cyst BARNES RA Fibromyalgia 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 FamHx: Neg thyroid CA Crohn's - cousins pat DM - grandparents HTN- mother CAD- maternal grandma REVIEW OF SYSTEMS Answers submitted by the patient for this visit: Core Review of Systems (Submitted on 12/20/2022) Fever : No Night Sweats: Yes Recent Unintentional Weight Change: No Nasal Congestion: Yes Hearing Loss: No Vision Disturbance: No A Cough: No Difficulty Breathing?: No Chest Pain: No Irregular Heart Beat: No Leg Swelling: No Nausea: No Diarrhea: Yes Black Tarry Stools: No Difficulty Urinating?: No Awaken at Night More Than Once to Urinate?: Yes Joint Pain or Stiffness: Yes Muscle Aches: Yes Leg or Foot Discomfort at Night?: No A Rash: No Dizziness: Yes Headaches: Yes Memory Loss: No Seizures: No PHYSICAL EXAMINATION BP 124/76 Pulse 80 Wt 80.7 kg (178 lb) LMP 07/25/2018 BMI 35.35 kg/m Body mass index is 35.35 kg/m . GENERAL: not in distress, well-appearing HEENT: anicteric sclerae, non-injected conjunctivae MUSCULOSKELETAL: no gross deformities, no fasciculations SKIN: dry, no cyanosis NEUROLOGIC: alert, oriented LABS REVIEWED Component Latest Ref Rng & Units 12/20/2022 Hemoglobin A1C (POCT) 4.2 - 5.6 % 6.4 Component Latest Ref Rng & Units 04/19/2022 05/24/2022 05/24/2022 08/09/2022 10/13/2022 12/01/2022 12/15/2022 10:15 AM 10:18 AM Protein, Total 6.3 - 8.0 g/dL 7.3 7.0 6.7 6.7 6.9 Albumin 3.9 - 4.9 g/dL 4.5 4.6 4.3 4.2 4.4 Calcium 8.5 - 10.2 mg/dL 11.0 (H) Bilirubin, Total 0.2 - 1.3 mg/dL 0.3 0.8 0.4 0.4 0.6 Alkaline Phosphatase 34 - 123 U/L 107 122 130 (H) 112 91 AST 13 - 35 U/L 31 25 38 (H) 22 25 ALT 7 - 38 U/L 30 25 49 (H) 23 23 Glucose 74 - 99 mg/dL 77 BUN 7 - 21 mg/dL 15 Creatinine 0.58 - 0.96 mg/dL 0.59 Sodium 136 - 144 mmol/L 139 Potassium 3.7 - 5.1 mmol/L 4.2 Chloride 97 - 105 mmol/L 107 (H) CO2 22 - 30 mmol/L 16 (L) Anion Gap 9 - 18 mmol/L 16 eGFR >=60 mL/min/1.73m 112 Cholesterol, Total <200 mg/dL 169 Triglyceride <150 mg/dL 123 HDL Cholesterol >39 mg/dL 51 Non HDL Cholesterol <130 mg/dL 118 Fasting Time hrs 12 VLDL Cholesterol <30 mg/dL 25 TC:HDL Ratio <5.10 3.31 LDL Cholesterol <100 mg/dL 93 LDL:HDL Ratio <2.54 1.82 Bilirubin, Conjug <0.2 mg/dL <0.2 <0.2 <0.2 <0.2 Creatinine 24 hr Ur 0.800 - 1.800 g/24 hr 1.331 Period hours 24 24 Urine Volume 24 hour mL 1,150 1,150 Calcium, 24 Hr Urine 100.0 - 300.0 mg/24 hr 319.7 (H) Creatinine, Ur Random (UCRR) 20.0 - 300.0 mg/dL 120.1 Albumin, Urine Random mg/L <12.0 Albumin/Creat Ratio <30 mg/g <10 Hemoglobin A1C 4.3 - 5.6 % 5.2 Estimated Average Glucose mg/dL 103 Vitamin D 25 Hydroxy 31.0 - 80.0 ng/mL 58.5 IMAGING REVIEWED Bone density 2020 LUMBAR SPINE: The bone mineral density from L1 through L4 is 0.846 grams per square centimeter which yields a T-score of -1.8. The bone mineral density previously measured 0.954 g/sq cm. LEFT HIP: The bone mineral density of the total region of the hip is 0.894 grams per square centimeter which yields a T-score of -0.4. The bone mineral density previously measured 0.909 g/sq cm. LEFT FEMORAL NECK: The bone mineral density of the femoral neck is 0.635 grams per square centimeter which yields a T-score of -1.9. The bone mineral density previously measured 0.827 g/sq cm. 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 Mc, [facility] Type II or unspecified type diabetes mellitus without mention of complication, not stated as uncontrolled Ureterolithiasis 07/18/2019 PAST SURGICAL HISTORY Procedure Laterality Date ADENOIDECTOMY PRIMARY <AGE 11 1986 Adenoidectomy ARTHROSCOPY KNEE DIAGNOSTIC W/WO SYNOVIAL BX SPX 1989 Arthroscopy, knee, left [facility] INCL FLUOR GDNCE DX W/CELL WASHG SPX January 2007 Bronchoscopy EPIDURAL 2011 multiple ones done by Dr. Beckett PAST SURGICAL HISTORY OF 06/2000 ILEOSTOMY/COLECTOMY PAST SURGICAL HISTORY OF 1993 CRYOCAUTERY/ MILD DYSPLASIA PAST SURGICAL HISTORY OF March 2006 Abdominal abscess with anal fistula PRCTECT COMPL W/STOT/TOT COLCT W/VENEER JOINER BXS 2006 AP endoanal proctectomy SHOULDER ARTHROSCOPY/SURGERY Left 05/06/2020 Rotator cuff debridement, subacromial decompression/arthroplasty TONSILLECTOMY PRIMARY/SECONDARY <AGE 11 1986 Tonsillectomy Social History Tobacco Use Smoking status: Former Packs/day: 1.00 Years: 16.00 Pack years: 16.00 Types: Cigarettes Quit date: 12/04/2006 Years since quittin.0 Smokeless tobacco: Never Vaping Use Vaping Use: Never used Substance Use Topics Alcohol use: No Drug use: No FAMILY HISTORY Problem Relation Age of Onset Alcohol/Drug Mother Hypertension Mother COPD other (vascular disease) Mother other (sleep apnea) Mother other (heart murmur) Mother Alcohol/Drug Father Cancer Father liver Asthma Brother Hypertension Daughter Diabetes Maternal Grandmother Stroke Maternal Grandmother Heart Maternal Grandmother Emphysema Paternal Grandmother Diabetes Paternal Grandfather Macular Degen Paternal Grandfather Anesthesia Problems No Family History Current Outpatient Medications Medication Sig ustekinumab (STELARA) 45 mg/0.5 mL sub-Q syringe Inject 45 mg (1 syringe) subcutaneously at weeks 0and 4 followed by every 12 weeks thereafter. levonorgestrel (MIRENA) 20 mcg/24 hours (8 yrs) 52 mg IUD 1 Each by INTRAUTERINE route as directed. levonorgestrel (MIRENA) 20 mcg/24 hours (8 yrs) 52 mg IUD 1 Each by INTRAUTERINE route as directed. exenatide microspheres (BYDUREON BCISE) 2 mg/0.85 mL injection Inject 2 mg subcutaneously one time a week. While Ozempic is out metFORMIN (GLUCOPHAGE) 1,000 mg tablet TAKE 1 TABLET TWICE DAILY clobetasol (TEMOVATE) 0.05 % cream Apply to affected area twice daily. Sparingly to feet, knees, palms. pregabalin (LYRICA) 150 mg capsule Take 1 capsule by mouth three times daily for 180 days. Lancing Device with Lancets ACCU CHEK FASTCLIX LANCET *DEVICE* use to check blood glucose up to 2 times per day as instructed. E11.9 Lancets (ACCU-CHEK FASTCLIX LANCET DRUM) lancets Use as instructed to check blood glucose up to 2 times daily. E11.9 insulin glargine (LANTUS SOLOSTAR U-100 INSULIN) 100 unit/mL (3 mL) Inject 46 Units subcutaneously daily at bedtime. blood sugar diagnostic (FREESTYLE PRECISION DAVID STRIPS) test strip Use as instructed E11.9 famotidine (PEPCID) 40 mg tablet Take 1 tablet by mouth twice daily. oxyCODONE-acetaminophen (PERCOCET) 5-325 mg tablet TAKE 1 TABLET BY MOUTH 3 TIMES A DAY NEEDED FOR 28 DAYS semaglutide (OZEMPIC) 2 mg/dose (8 mg/3 mL) pen injector Inject 2 mg subcutaneously one time a week. flash glucose sensor (FREESTYLE GIANFRANCO 2 SENSOR) kit Apply new sensor every fourteen (14) days to upper arm. Dx E11.9 Insulin Lynch, Disposable, (DROPLET PEN NEEDLE) 32 gauge x 5/32 INJECT ONE TIME DAILY rizatriptan (MAXALT VENEER JOINER) 10 mg disintegrating tablet Take 1 tablet by mouth as needed for migraine headache (see administration instructions). May repeat in 2 hours if needed vits62/FA/om3/dha/epa ( GUMMY ORAL) Take 2 Doses by mouth once daily. fluticasone (FLONASE) 50 mcg/actuation nasal spray Use 2 Sprays in each nostril once daily. Blood-Glucose Meter (ACCU-CHEK DIANNE) Test blood sugar(s) 2 times daily. Dx: Type 2 DM - Controlled E11.9 Insulin: No, Accu-check brand covered by insurance Ascorbic Acid 500 mg chew Take 1,000 mg by mouth once daily. With rosehips elderberry fruit (ELDERBERRY ORAL) Take by mouth. cetirizine (ZYRTEC) 10 mg tablet Take 1 tablet by mouth once daily. Cholecalciferol, Vitamin D3, (VITAMIN D-3) 50 mcg (2,000 unit) cap Take 1 capsule by mouth twice daily. COMPOUNDED PRESCRIPTION 1. V44.2 Ileostomy status (HCC) (primary diagnosis) 2. 555.1 Regional enteritis of large intestine (HCC) Ileostomy Supplies. 1. Pouches, 2. Planges, 3. Felipe seals, 4. Stoma adhesive, 5. Stoma powder, 6. Skin preps, 7. Adhesive remover wipes. Dispense 1 year supplies. tiZANidine (ZANAFLEX) 4 mg tablet Take by mouth. . Takes 1 tablet at bedtime. albuterol HFA (PROVENTIL HFA, VENTOLIN HFA) 90 mcg/actuation inhaler Inhale 2 Puffs as instructed every 4 hours as needed for wheezing/shortness of breath. Current Facility-Administered Medications Medication Dose Route Frequency levonorgestrel 20 mcg/24 hours (8 yrs) 52 mg 1 Each intrauterine device (MIRENA) 1 Each INTRAUTERINE ONCE (AMB - Up to 30 Days) denosumab 60 mg injection (PROLIA) 60 mg SUBCUTANEOUS Q 6 MONTH ALLERGIES Allergen Reactions Azithromycin Unknown thinks a rash Dilaudid [Hydromorp* Swelling migraines Levemir [Insulin De* Other: See Comments Urine turned dark and smelly Methadone Swelling migraine Morphine Swelling migraines Remicade [Inflixima* Intolerance, Rash broke out in blisters with the 6th dose. Ultram [Tramadol Hc* Swelling migraines ASSESSMENT/PLAN Type 2 diabetes, hyperglycemia needing several medications Dyslipidemia Fatty liver - since 17 y/o Chronic intermittent steroid use w cushingoid features (improved) Bone loss, high calcium (off calcium supplement), hypercalciuria Likely primary hyperparathyroidism pending repeat labs Changes in DM med in bold above Reviewed s/e GLP-1 agonist - severe stomach pain, vomiting Might be the reason for her feeling of fulness Is seeing GI for endoscopy For now, continue Ozempic and metformin (Has some Lantus if needs to restart) Scan Freestyle Gianfranco every 8 hour Diabetes health maintenance record reviewed. 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 [place] Continue vitamin D Gave calcium-rich food list in the past Discussed likely primary hyperparathyroidism Discussed surgery as option, will await labs then send for consult Bone density - timing of repeat depends on whether parathyroid surgery to take place Labs/Imaging/Consults/Scripts (E11.65) Type 2 diabetes mellitus with hyperglycemia, without long-term current use of insulin (HCC) (primary encounter diagnosis) Comment: Plan: HEMOGLOBIN A1C (POC), HEMOGLOBIN A1C (POC), glucagon (GVOKE) 1 mg/0.2 mL injection (E83.52) Hypercalcemia Comment: Plan: PHOSPHORUS INORGANIC, VITAMIN D1 25-DIHYDR, VITAMIN D 25 HYDROXY, BASIC METABOLIC PNL, PTH INTACT BLD, ALKALINE PHOSPHATASE, ALBUMIN BLD Contact us if has not heard about lab results after a week or two of completion. Follow-up: See Maddy Zavala LOG BRANDER in 2 months as your goal is to try and come off the metformin Me in 6 months ( can be virtual) Contact us sooner than recommended follow-up if with issues/concerns. Follow-up with primary care provider and other specialists for issues not explained by the condition that the patient is seeing me for. 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 documented in this encounterVeterans Health Administration02-07-2023 Instructions* Patient Instructions* Panda Harrsion MD - 12/20/2022 9:48 AM EST Eventual weight target around 125 lb or less Stopped insulin Scan every 8 hours with Freestyle Gianfranco Calcium-related labs blood I will let you know if I put in the endocrine surgery referral Bone density - depends on when you see the surgeon Thank you for seeing us today. Please contact me/my office: if you do not receive a note from me summarizing your lab or imaging within a week of your seeing/receiving your results. 2. sooner than the recommended follow-up if with issues/concerns. 3. If you do not see lab/imaging orders prior to your next visit Please see your primary care provider and other specialists for issues not explained by the condition you are seeing me for. Sophy Harrison MD, MPH Office [phone] Appointments [phone] or by using [facility] number: [phone] documented in this encounterVeterans Health Administration02-07-2023 History of Present illness Narrative* Shira Matta - 12/20/2022 8:05 AM EST [facility] prescription(s) for Stelara from Steve Juarez' office. Benefits investigation was conducted, indicating that a prior authorization is required by patient's insurance plan with [employer]. Encounter will be updated once prior authorization has been submitted by [facility]. Shira Matta CPhT [facility] [phone] * Shira Matta - 12/20/2022 8:05 AM EST [facility] received prescription(s) for Stelara 45mg from Dr. Juarez' office. Benefits investigation was conducted, indicating that a prior authorization is required. PA was approved with details listed below. Plan Name: [employer] Medicare Plan Agent/Quarles: [facility] Phone/Fax: - / - PA reference number: Not provided Approval Dates: 12/20/22-11/12/23 Prescriptions will now be processed through [facility] for determination of next steps. Shira Matta, [facility] [phone] * [place] [facility] - 12/20/2022 8:05 AM EST [facility] received prescription(s) for Stefrancesra from Dr. Juarez's office. Benefits investigation was conducted, indicating that a prior authorization is required. PA was approved with details listed below: Plan Name: [employer] Medicare Plan Agent/Quarles: [facility] Phone/Fax: - / - PATRICIO reference number: Not provided Approval Dates: 12/20/22-11/12/23 Pt's copay is $0. Shipment has been arranged, and pt will receive medication(s) on 12/23/22. Pt has been instructed to follow-up with clinic to confirm start date. A full drug interaction report was conducted, and No significant drug interactions found.. I reviewed with Sid Lezama appropriate dose and dosing frequency, administration directions (Inject 45 mg (1 syringe) subcutaneously at weeks 0 and 4 followed by every 12 weeks thereafter.), potential side effects, ability to self-administer and proper storage and handling requirements. S/he expressed understanding of the information we provided today, and received our contact information for the pharmacy if s/he had any other questions. 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 Mc, [facility] Type II or unspecified type diabetes mellitus without mention of complication, not stated as uncontrolled Ureterolithiasis 07/18/2019 Problem List as of 12/20/2022 Reviewed: 12/20/2022 3:04 PM by Panda Harrison MD Neurology Fibromyalgia Last Assessment & Plan 05/27/2021 PAT Written 05/27/2021 8:45 AM by Lanie Goodwin APRN.SQL ANALYST Assessment: + back and hip pain- on Percocet daily and FlexeriDanelle pollockrica Previously seen pain management Migraine headache without aura Last Assessment & Plan 05/27/2021 PAT Written 05/27/2021 8:43 AM by Lanie Goodwin APRN.SQL ANALYST Assessment: follows with neuro- on medication Pain in right shoulder Pain in left shoulder Cardiovascular Mixed hyperlipidemia Pulmonary Chronic rhinitis Gastrointestinal Regional enteritis of large intestine (HCC) Ileostomy status (HCC) Last Assessment & Plan 05/27/2021 PAT Written 05/27/2021 8:44 AM by Lanie Goodwin APRN.SQL ANALYST Assessment: Hx of crohns and fistula- has ileostomy Non-alcoholic fatty liver disease Recurrent cold sores Vitamin B12 deficiency Ureterolithiasis Gastroesophageal reflux disease without esophagitis Last Assessment & Plan 05/27/2021 PAT Written 05/27/2021 8:44 AM by Lanie Goodwin APRN.SQL ANALYST Assessment: on Pepcid Endocrinology Type 2 diabetes mellitus treated with insulin ([facility]) Last Assessment & Plan 05/27/2021 PAT Written 05/27/2021 8:43 AM by Lanie Goodwin APRN.SQL ANALYST Assessment: On Metformin, Lantus and Ozempic. Ozempic dose recently adjusted by endo- stated Bg thsi Am 94 Lab Results Component Value Date HBA1C 7.6 05/18/2021 HBA1C 6.7 01/18/2021 HBA1C 7.2 07/24/2020 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, with long-term current use of insulin ([facility]) Hypercalcemia Allergy/Immunology Atopic eczema Psoriasis Ophthalmology Nuclear sclerosis of both eyes Vitreous floaters of both eyes Dry eye syndrome of both eyes Rheumatology Impingement syndrome of right shoulder Seronegative spondyloarthropathy Musculoskeletal Lumbago Bone loss Other Obesity, Class I, BMI 30-34.9 Last Assessment & Plan 05/27/2021 PAT Written 05/27/2021 8:46 AM by Lanie Goodwin APRN.SQL ANALYST Assessment: Body mass index is 37.14 kg/m . Corticosteroids adverse reaction Obesity, Class II, BMI 35-39.9 S/P shoulder otolaryngologist Assessment Patient confirmed: Yes Med/dose confirmed: Yes Supplies needed: Welcome packet Missed doses: No Estimated days supply on hand: 0 Next cycle/dose due: 12/23/22 Copay amount: 0 Payment confirmed: Yes Delivery method: FedEx Signature required: No (pt waived) Delivery address: [address] [place] [address] Delivery date: 12/23/22 Questions or concerns for the pharmacist?: No [facility] Visit Assessment - Inflammatory Conditions: Assessment to use: Initial Vaccination Assessment: Annual influenza vaccination reminder: Yes Date of influenza vaccination reminder: 12/22/2022 Vaccination assessment completed: Yes Date of most recent vaccination assessment: 12/22/2022 Treatment Plan Information: Treatment Plan Information: Seronegative spondyloarthropathy Crohn's disease with complication, unspecified gastrointestinal tract location (HCC) Osteoarthritis of spine, unspecified spinal osteoarthritis complication status, unspecified spinal region Stelara - Inject 45 mg (1 syringe) subcutaneously at weeks 0 and 4 followed by every 12 weeks thereafter. Est. Tx Plan Start Date: 12/23/2022 Estimated Treatment Duration: Until loss of efficacy and/or no longer tolerated. Initial Assessment: Current and prior medication therapy assessment completed: Yes Concurrent non-biologic DMARD with biologic DMARD HEDIS measure: Yes Prior biologic DMARD therapy assessment at initiation: Yes Hepatitis B status at initiation of therapy with: B-cell modulators, Interleukin-6 antagonists, Janus kinase inhibitors, T-cell modulators, TNF-alpha inhibitors: Yes TB and opportunistic infection status at initiation of biologic and Janus Kinase inhibitor therapy:Yes Patient device teaching: No Teaching not complete reason: Patient has prior experience and is comfortable with administration. Verification of patient acceptance and understanding of injection technique: Yes Co-morbidity screening (i.e. heart failure, malignancy, MS, serious infection) at TNFI initiation: N/A test/ control counseling prior to TNFI/DMARD: N/A Baseline disease severity and inflammatory markers: Yes Counseling on intended outcome of therapy: Yes Sun precaution recommendations (increased BCC risk in RA patients): N/A CBC with differential (baseline); complete metabolic panel (baseline); tuberculosis (TB) screening prior to initiating and during therapy (chest X-ray if TB positive); hepatitis C virus/hepatitis B virus (HBV) screening prior to initiating (all patients), HBV carriers (during and for several monthsfollowing therapy); HIV screening (baseline) (AAD/NPF [Menter 2019]); monitor for signs/symptoms ofinfection, posterior reversible encephalopathy syndrome, and squamous cell skin carcinoma. CBC with differential: WBC Date Value Ref Range Status 12/15/2022 9.29 3.70 - 11.00 k/uL Final RBC Date Value Ref Range Status 12/15/2022 5.26 (H) 3.90 - 5.20 m/uL Final Hemoglobin Date Value Ref Range Status 12/15/2022 15.3 11.5 - 15.5 g/dL Final Hematocrit Date Value Ref Range Status 12/15/2022 45.8 36.0 - 46.0 % Final MCV Date Value Ref Range Status 12/15/2022 87.1 80.0 - 100.0 fL Final MCH Date Value Ref Range Status 12/15/2022 29.1 26.0 - 34.0 pg Final MCHC Date Value Ref Range Status 12/15/2022 33.4 30.5 - 36.0 g/dL Final RDW-CV Date Value Ref Range Status 12/15/2022 12.7 11.5 - 15.0 % Final Platelet Count Date Value Ref Range Status 12/15/2022 270 150 - 400 k/uL Final MPV Date Value Ref Range Status 12/15/2022 10.6 9.0 - 12.7 fL Final Neut% Date Value Ref Range Status 12/15/2022 64.4 % Final Lymph% Date Value Ref Range Status 12/15/2022 25.7 % Final [place]% Date Value Ref Range Status 12/15/2022 7.1 % Final Eosin% Date Value Ref Range Status 12/21/2021 2.8 % Final Baso% Date Value Ref Range Status 12/15/2022 0.8 % Final Abs Neut Date Value Ref Range Status 12/15/2022 5.98 1.45 - 7.50 k/uL Final Abs [place] Date Value Ref Range Status 12/15/2022 0.66 <0.87 k/uL Final Abs Eosin Date Value Ref Range Status 12/15/2022 0.17 <0.46 k/uL Final Abs Baso Date Value Ref Range Status 12/15/2022 0.07 <0.11 k/uL Final CMP: Albumin Date Value Ref Range Status 12/20/2022 4.5 3.9 - 4.9 g/dL Final Calcium, Total Date Value Ref Range Status 12/20/2022 10.5 (H) 8.5 - 10.2 mg/dL Final Bilirubin, Total Date Value Ref Range Status 12/15/2022 0.6 0.2 - 1.3 mg/dL Final Alkaline Phosphatase Date Value Ref Range Status 12/20/2022 107 34 - 123 U/L Final AST Date Value Ref Range Status 12/15/2022 25 13 - 35 U/L Final ALT Date Value Ref Range Status 12/15/2022 23 7 - 38 U/L Final Glucose Date Value Ref Range Status 12/20/2022 82 74 - 99 mg/dL Final Comment: The [place] [employer] (ADA) provides guidance for cutoff values for fasting glucose andrandom glucose. The ADA defines fasting as no caloric intake for at least 8 hours. Fasting plasma glucose results between 100 to 125 [...] Standards of Medical Care in Diabetes 2016, [place] [employer]. Diabetes Care. 2016.39(Suppl 1). BUN Date Value Ref Range Status 12/20/2022 9 7 - 21 mg/dL Final Creatinine Date Value Ref Range Status 12/20/2022 0.60 0.58 - 0.96 mg/dL Final Sodium Date Value Ref Range Status 12/20/2022 140 136 - 144 mmol/L Final Potassium Date Value Ref Range Status 12/20/2022 3.4 (L) 3.7 - 5.1 mmol/L Final Chloride Date Value Ref Range Status 12/20/2022 99 97 - 105 mmol/L Final CO2 Date Value Ref Range Status 12/20/2022 30 22 - 30 mmol/L Final Anion Gap Date Value Ref Range Status 12/20/2022 11 9 - 18 mmol/L Final eGFR- Date Value Ref Range Status 12/21/2021 >60 Final Estimated Glomerular Filtration Rate Date Value Ref Range Status 12/20/2022 112 >=60 mL/min/1.73m Final Comment: Estimated Glomerular Filtration Rate (eGFR) is calculated using the 2020 CKD-EPI creatinine equation. This equation utilizes serum creatinine, sex, and age as parameters. The creatinine assay has traceable calibration to isotope dilution- mass spectrometry. Refer to KDIGO guidelines for clinical interpretation. In patients with unstable renal function, e.g. those with acute kidney injury, the eGFRmay not accurately reflect actual GFR. HBsAg Date Value Ref Range Status 06/18/2021 Negative Negative Final Hep B Surface Ab, Qual Date Value Ref Range Status 04/19/2022 Negative Negative Final Comment: No evidence of current or past infection with Hepatitis B virus. Should recent infection be suspected, repeat testing may be considered 3-4 weeks after this draw. Hepatitis B Core Ab, Total Date Value Ref Range Status 04/19/2022 Negative Negative Final Comment: No evidence of current or past infection with Hepatitis B virus. Should recent infection be suspected, repeat testing may be considered 3-4 weeks after this draw. Hep C Antibody IA Date Value Ref Range Status 04/19/2022 Negative Negative Final Comment: The result suggests no evidence of active infection with Hepatitis C virus. Should recent infectionbe suspected, repeat testing may be considered 4-6 weeks after this draw. TB Result Date Value Ref Range Status 04/19/2022 Negative Final No results found for: HIV1AB Current Outpatient Medications on File Prior to Visit Medication Sig glucagon (GVOKE) 1 mg/0.2 mL injection Inject 0.2 mL subcutaneously as needed. ustekinumab (STELARA) 45 mg/0.5 mL sub-Q syringe Inject 45 mg (1 syringe) subcutaneously at weeks 0and 4 followed by every 12 weeks thereafter. levonorgestrel (MIRENA) 20 mcg/24 hours (8 yrs) 52 mg IUD 1 Each by INTRAUTERINE route as directed. levonorgestrel (MIRENA) 20 mcg/24 hours (8 yrs) 52 mg IUD 1 Each by INTRAUTERINE route as directed. metFORMIN (GLUCOPHAGE) 1,000 mg tablet TAKE 1 TABLET TWICE DAILY clobetasol (TEMOVATE) 0.05 % cream Apply to affected area twice daily. Sparingly to feet, knees, palms. pregabalin (LYRICA) 150 mg capsule Take 1 capsule by mouth three times daily for 180 days. Lancing Device with Lancets ACCU CHEK FASTCLIX LANCET *DEVICE* use to check blood glucose up to 2 times per day as instructed. E11.9 Lancets (ACCU-CHEK FASTCLIX LANCET DRUM) lancets Use as instructed to check blood glucose up to 2 times daily. E11.9 blood sugar diagnostic (FREESTYLE PRECISION DAVID STRIPS) test strip Use as instructed E11.9 famotidine (PEPCID) 40 mg tablet Take 1 tablet by mouth twice daily. oxyCODONE-acetaminophen (PERCOCET) 5-325 mg tablet TAKE 1 TABLET BY MOUTH 3 TIMES A DAY NEEDED FOR 28 DAYS semaglutide (OZEMPIC) 2 mg/dose (8 mg/3 mL) pen injector Inject 2 mg subcutaneously one time a week. flash glucose sensor (FREESTYLE GIANFRANCO 2 SENSOR) kit Apply new sensor every fourteen (14) days to upper arm. Dx E11.9 Insulin Lynch, Disposable, (DROPLET PEN NEEDLE) 32 gauge x 5/32 INJECT ONE TIME DAILY rizatriptan (MAXALT VENEER JOINER) 10 mg disintegrating tablet Take 1 tablet by mouth as needed for migraine headache (see administration instructions). May repeat in 2 hours if needed albuterol HFA (PROVENTIL HFA, VENTOLIN HFA) 90 mcg/actuation inhaler Inhale 2 Puffs as instructed every 4 hours as needed for wheezing/shortness of breath. vits62/FA/om3/dha/epa ( GUMMY ORAL) Take 2 Doses by mouth once daily. fluticasone (FLONASE) 50 mcg/actuation nasal spray Use 2 Sprays in each nostril once daily. Blood-Glucose Meter (ACCU-CHEK DIANNE) Test blood sugar(s) 2 times daily. Dx: Type 2 DM - Controlled E11.9 Insulin: No, Accu-check brand covered by insurance Ascorbic Acid 500 mg chew Take 1,000 mg by mouth once daily. With rosehips elderberry fruit (ELDERBERRY ORAL) Take by mouth. cetirizine (ZYRTEC) 10 mg tablet Take 1 tablet by mouth once daily. Cholecalciferol, Vitamin D3, (VITAMIN D-3) 50 mcg (2,000 unit) cap Take 1 capsule by mouth twice daily. COMPOUNDED PRESCRIPTION 1. V44.2 Ileostomy status (HCC) (primary diagnosis) 2. 555.1 Regional enteritis of large intestine (HCC) Ileostomy Supplies. 1. Pouches, 2. Planges, 3. Felipe seals, 4. Stoma adhesive, 5. Stoma powder, 6. Skin preps, 7. Adhesive remover wipes. Dispense 1 year supplies. tiZANidine (ZANAFLEX) 4 mg tablet Take by mouth. . Takes 1 tablet at bedtime. Current Facility-Administered Medications on File Prior to Visit Medication levonorgestrel 20 mcg/24 hours (8 yrs) 52 mg 1 Each intrauterine device (MIRENA) denosumab 60 mg injection (PROLIA) Canceled Appointments: Future Appointments Date Time Provider Department Center 12/22/2022 11:30 AM Albina Rodgers, PERMIT TECHNICIAN.SQL ANALYST [facility] 01/05/2023 10:40 AM HEPATOLOGY PROCEDURES A5 [facility] 01/13/2023 11:00 AM Specialtygroup 2 Pharmacist SPCPHARMSVC None 01/26/2023 9:00 AM SPECIAL INVESTIGATOR [facility] [place] 01/27/2023 9:45 AM Mika Simmons DO [facility] [place] 02/06/2023 9:00 AM Aury Powers, PERMIT TECHNICIAN.SQL ANALYST INTMWS [facility] 02/20/2023 10:15 AM Maddy Zavala PERMIT TECHNICIAN.SQL ANALYST [facility] 03/31/2023 9:50 AM aSfia Jamil MD [facility] [place] 04/24/2023 10:00 AM Steve Juarez, PERMIT TECHNICIAN.LORI RHEUST [facility] 06/19/2023 10:20 AM Panda Harrison MD ENDOMN [facility] 08/24/2023 10:00 AM GITA Hinkle [facility] Danisha 2023 10:00 AM Scott Gold MD [facility] [place], PharmD, Formerly [facility] Clinical Pharmacist - Allergy, Immunology, and Inflammatory [facility] ; Pool: P [facility] Pool #: [id number] documented in this encounterVeterans Health Administration02-02-2023 Instructions* Patient Instructions* Steve Juarez APRN.CNP - 12/15/2022 1:08 PM EST documented in this encounterVeterans Health Administration02-02-2023 History of Present illness Narrative* Steve Juarez APRN.CNP - 12/15/2022 1:00 PM EST Follow-up of seronegative spondyloarthropathy HPI: To review, Sid Lezama is a 46 year old female - Since teenage years, with intermittent joint pain and swelling. Affected joints include the wrists, MCPs, PIPs, knees, ankles and toes. Also gets hip pain. Eases with movement/activity. Worst pain is evening. - In April, diagnosed with Crohn's per colonoscopy. Underwent surgery to remove the large intestine. - In , had a rectal fistula so tried remicade (stopped s/p 6th dose for rash). Rectal stump was removed after that. - Sees pain management for serial spinal injections - In , diagnosed with psoriasis over scalp, knees and dorsal feet. - In Jun, reported no GI issues, no need for medication or surgery for Crohn's since . Diagnosed with SpA. Advised humira which she decided against starting given c/f potential SE - Since February, has been seeing holistic provider. Taking supplements - at [facility], reports she has lost 20 lbs. Overall stable. - Overall pain is 2-4/10 depending on the weather. 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 Mc, [facility] Type II or unspecified type diabetes mellitus without mention of complication, not stated as uncontrolled Ureterolithiasis 07/18/2019 GERD PAST SURGICAL HISTORY Procedure Laterality Date ADENOIDECTOMY PRIMARY <AGE 11 1986 Adenoidectomy ARTHROSCOPY KNEE DIAGNOSTIC W/WO SYNOVIAL BX SPX 1989 Arthroscopy, knee, left [facility] INCL FLUOR GDNCE DX W/CELL WASHG SPX January 2007 Bronchoscopy EPIDURAL 2011 multiple ones done by Dr. Beckett PAST SURGICAL HISTORY OF 06/2000 ILEOSTOMY/COLECTOMY PAST SURGICAL HISTORY OF 1993 CRYOCAUTERY/ MILD DYSPLASIA PAST SURGICAL HISTORY OF March 2006 Abdominal abscess with anal fistula PRCTECT COMPL W/STOT/TOT COLCT W/VENEER JOINER BXS 2006 AP endoanal proctectomy SHOULDER ARTHROSCOPY/SURGERY Left 05/06/2020 Rotator cuff debridement, subacromial decompression/arthroplasty TONSILLECTOMY PRIMARY/SECONDARY <AGE 11 1986 Tonsillectomy ALLERGIES Allergen Reactions Azithromycin Unknown thinks a rash Dilaudid [Hydromorp* Swelling migraines Levemir [Insulin De* Other: See Comments Urine turned dark and smelly Methadone Swelling migraine Morphine Swelling migraines Remicade [Inflixima* Intolerance, Rash broke out in blisters with the 6th dose. Ultram [Tramadol Hc* Swelling migraines INTERVAL HISTORY She is here for follow up. She states psoriasis has worsened since the ONUR. She is scheduled for R elbow tenotomy in 01/2023. Pain is worst in the evening. She takes percocet for pain. Sites of pain: burning sensation thoracic spine, R elbow, R shoulder, L knee, fingers, pain rated 5/10 Joint swelling: fingers EMS: yes, lasting 60-90 minutes No recent infections. Tolerating meds. Answers submitted by the patient for this visit: Review of Systems Rheumatology (Submitted on 12/15/2022) Fever : No Recent Unintentional Weight Change: No Eye Pain: No Eye Redness: No Vision Disturbance: No Eye Dryness: No Nose Bleeds: No Sores in your Mouth: No Trouble Swallowing: No Dry Mouth: No Chest Pain: No Leg Swelling: No A Cough: No Shortness of Breath: No Pain with Breathing: No Heartburn: No Abdominal Pain: No Diarrhea: Yes Black Tarry Stools: No Blood in Urine: No Pain or Burning with Urination: No Joint Pain or Stiffness: Yes Muscle Weakness: No Muscle Aches: Yes Joint Swelling: No Morning Stiffness in Joints: Yes A Rash: No Skin Color Changes: No Hair Loss: No Nail Changes: Yes Headaches: No Numbness: No Memory Loss: No Swollen Glands: No Current Outpatient Medications Medication Sig levonorgestrel (MIRENA) 20 mcg/24 hours (8 yrs) 52 mg IUD 1 Each by INTRAUTERINE route as directed. levonorgestrel (MIRENA) 20 mcg/24 hours (8 yrs) 52 mg IUD 1 Each by INTRAUTERINE route as directed. exenatide microspheres (BYDUREON BCISE) 2 mg/0.85 mL injection Inject 2 mg subcutaneously one time a week. While Ozempic is out metFORMIN (GLUCOPHAGE) 1,000 mg tablet TAKE 1 TABLET TWICE DAILY clobetasol (TEMOVATE) 0.05 % cream Apply to affected area twice daily. Sparingly to feet, knees, palms. pregabalin (LYRICA) 150 mg capsule Take 1 capsule by mouth three times daily for 180 days. Lancing Device with Lancets ACCU CHEK FASTCLIX LANCET *DEVICE* use to check blood glucose up to 2 times per day as instructed. E11.9 Lancets (ACCU-CHEK FASTCLIX LANCET DRUM) lancets Use as instructed to check blood glucose up to 2 times daily. E11.9 insulin glargine (LANTUS SOLOSTAR U-100 INSULIN) 100 unit/mL (3 mL) Inject 46 Units subcutaneously daily at bedtime. blood sugar diagnostic (FREESTYLE PRECISION DAVID STRIPS) test strip Use as instructed E11.9 famotidine (PEPCID) 40 mg tablet Take 1 tablet by mouth twice daily. oxyCODONE-acetaminophen (PERCOCET) 5-325 mg tablet TAKE 1 TABLET BY MOUTH 3 TIMES A DAY NEEDED FOR 28 DAYS semaglutide (OZEMPIC) 2 mg/dose (8 mg/3 mL) pen injector Inject 2 mg subcutaneously one time a week. flash glucose sensor (FREESTYLE GIANFRANCO 2 SENSOR) kit Apply new sensor every fourteen (14) days to upper arm. Dx E11.9 Insulin Lynch, Disposable, (DROPLET PEN NEEDLE) 32 gauge x 5/32 INJECT ONE TIME DAILY rizatriptan (MAXALT VENEER JOINER) 10 mg disintegrating tablet Take 1 tablet by mouth as needed for migraine headache (see administration instructions). May repeat in 2 hours if needed albuterol HFA (PROVENTIL HFA, VENTOLIN HFA) 90 mcg/actuation inhaler Inhale 2 Puffs as instructed every 4 hours as needed for wheezing/shortness of breath. vits62/FA/om3/dha/epa ( GUMMY ORAL) Take 2 Doses by mouth once daily. fluticasone (FLONASE) 50 mcg/actuation nasal spray Use 2 Sprays in each nostril once daily. Blood-Glucose Meter (ACCU-CHEK DIANNE) Test blood sugar(s) 2 times daily. Dx: Type 2 DM - Controlled E11.9 Insulin: No, Accu-check brand covered by insurance Ascorbic Acid 500 mg chew Take 1,000 mg by mouth once daily. With rosehips elderberry fruit (ELDERBERRY ORAL) Take by mouth. cetirizine (ZYRTEC) 10 mg tablet Take 1 tablet by mouth once daily. Cholecalciferol, Vitamin D3, (VITAMIN D-3) 50 mcg (2,000 unit) cap Take 1 capsule by mouth twice daily. COMPOUNDED PRESCRIPTION 1. V44.2 Ileostomy status (HCC) (primary diagnosis) 2. 555.1 Regional enteritis of large intestine (HCC) Ileostomy Supplies. 1. Pouches, 2. Planges, 3. Felipe seals, 4. Stoma adhesive, 5. Stoma powder, 6. Skin preps, 7. Adhesive remover wipes. Dispense 1 year supplies. tiZANidine (ZANAFLEX) 4 mg tablet Take by mouth. . Takes 1 tablet at bedtime. Current Facility-Administered Medications Medication Dose Route Frequency levonorgestrel 20 mcg/24 hours (8 yrs) 52 mg 1 Each intrauterine device (MIRENA) 1 Each INTRAUTERINE ONCE (AMB - Up to 30 Days) denosumab 60 mg injection (PROLIA) 60 mg SUBCUTANEOUS Q 6 MONTH FAMILY HISTORY Problem Relation Age of Onset Alcohol/Drug Mother Hypertension Mother COPD other (vascular disease) Mother other (sleep apnea) Mother other (heart murmur) Mother Alcohol/Drug Father Cancer Father liver Asthma Brother Hypertension Daughter Diabetes Maternal Grandmother Stroke Maternal Grandmother Heart Maternal Grandmother Emphysema Paternal Grandmother Diabetes Paternal Grandfather Macular Degen Paternal Grandfather Anesthesia Problems No Family History F-hemochromatosis, in from it. SOCIAL HISTORY: Lives in [place], [place] with spouse. 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 1 daughter, 24 yo lives with her. Studied [employer], just graduated college. Tobacco use: None Alcohol use: None Drug use: None PHYSICAL EXAM: BP 122/81 Pulse 83 Temp 36.4 C (97.5 F) (Temporal) Ht 151.1 cm (4' 11.5) Wt 79.8 kg (176 lb) LMP 07/25/2018 BMI 34.95 kg/m CONSTITUTIONAL: Well-appearing, in NAD. SKIN: + psoriasis noted to hands and knees EYES: No scleral icterus or conjunctivitis. ENT and Mouth: External ears parmjit. RESPIRATORY: Normal breath sounds, clear to auscultation. CARDIOVASCULAR: Regular rate and rhythm, no murmurs or rubs EXTREMITIES/LYMPH: No edema bilaterally NEURO: Awake, alert and oriented, antalgic gait MUSCULOSKELETAL: JOINT APPEARANCE: No erythema or warmth of any upper or lower extremity joint. RANGE OF MOTION: Able to fully close fists and curl fingers bilaterally. SWOLLEN JOINTS/SYNOVITIS: No synovitis of any joint. TENDER JOINTS: R shoulder, R elbow +tenderness to entire spine *Jun Widespread Pain Index: 16 (0-19) Symptoms Severity Scale: 6 (0-12) WPI>7 and SS Scale>5 OR WPI 3-6 and SS Scale >9 consistent with fibromyalgia Labs reviewed and discussed with the patient: Component Latest Ref Rng & Units 10/13/2022 Albumin 3.9 - 4.9 g/dL 4.3 Bilirubin, Total 0.2 - 1.3 mg/dL 0.4 Bilirubin, Conjug <0.2 mg/dL <0.2 Alkaline Phosphatase 34 - 123 U/L 130 (H) AST 13 - 35 U/L 38 (H) ALT 7 - 38 U/L 49 (H) Protein, Total 6.3 - 8.0 g/dL 6.7 Component Latest Ref Rng & Units 04/19/2022 TB Nil <=8.00 IU/mL 0.27 TB Interpretation Infection with M. tuberculosis complex is unlikely. If latent tuberculosis infection is highly suspected, a negative result does not rule out the infection. Specimens from immunocompromised patients and those <5 years of age may show false negative results. In case of a contactinvestigation, please repeat 8-12 weeks after a known exposure. TB1 Ag minus Nil <0.35 IU/mL <0.00 TB2 Ag minus Nil <0.35 IU/mL 0.03 TB Result Negative Mitogen minus Nil >=0.50 IU/mL >9.73 TPMT Activity 24.0 - 44.0 U/mL 28.9 Hep B Surf Ab Quant >=12.00 mIU/mL <8.00 (L) Component Latest Ref Rng & Units 04/19/2022 Protein, Total 6.3 - 8.0 g/dL 7.3 Albumin 3.9 - 4.9 g/dL 4.5 Calcium 8.5 - 10.2 mg/dL 11.0 (H) Bilirubin, Total 0.2 - 1.3 mg/dL 0.3 Alkaline Phosphatase 34 - 123 U/L 107 AST 13 - 35 U/L 31 ALT 7 - 38 U/L 30 Glucose 74 - 99 mg/dL 77 BUN 7 - 21 mg/dL 15 Creatinine 0.58 - 0.96 mg/dL 0.59 Sodium 136 - 144 mmol/L 139 Potassium 3.7 - 5.1 mmol/L 4.2 Chloride 97 - 105 mmol/L 107 (H) CO2 22 - 30 mmol/L 16 (L) Anion Gap 9 - 18 mmol/L 16 eGFR >=60 mL/min/1.73m 112 CRP <0.9 mg/dL <0.3 Component Latest Ref Rng & Units 03/24/2022 04/19/2022 WBC 3.70 - 11.00 k/uL 7.35 RBC 3.90 - 5.20 m/uL 5.45 (H) Hemoglobin 11.5 - 15.5 g/dL 15.6 (H) Platelet Count 150 - 400 k/uL 273 Calcium 8.5 - 10.2 mg/dL 11.0 (H) Bilirubin, Total 0.2 - 1.3 mg/dL 0.3 Alkaline Phosphatase 34 - 123 U/L 107 AST 13 - 35 U/L 31 ALT 7 - 38 U/L 30 Glucose 74 - 99 mg/dL 77 BUN 7 - 21 mg/dL 15 Creatinine 0.58 - 0.96 mg/dL 0.59 Sodium 136 - 144 mmol/L 139 Potassium 3.7 - 5.1 mmol/L 4.2 Chloride 97 - 105 mmol/L 107 (H) CO2 22 - 30 mmol/L 16 (L) Anion Gap 9 - 18 mmol/L 16 eGFR >=60 mL/min/1.73m 112 *April neg quant gold Component Latest Ref Rng & Units 04/19/2022 Hep C Antibody IA Negative Negative Hep B Surface Ag Negative Negative Hep B Surface Ab, Qual Negative Negative Hep B Core Ab, Total Negative Negative Component Latest Ref Rng & Units 09/19/2011 12/21/2011 Rheumatoid Factor <20 IU/mL <7 CCP Antibody, IgG <20 Units <15 HLA B27 NEGAT Positive (A) INOCENCIO by EIA <1.5 OD Ratio 0.4 Anti-SSA <1.0 AI <0.2 Anti-SSB <1.0 AI <0.2 STUDIES: *April MRI R shoulder- mild supraspinatus tendinosis *Oct xray L foot- Calcaneal enthesophytes. *Oct MRI pelvis- NO ACUTE ABNORMALITY Sacroiliac joints: Punctate area of subchondral edema within the right sacrum at the SI joint on series 8 image 11, doubtful clinical significance. *Sep xray SI joints- Asymmetrical sacroiliitis involving the left SI joint. *Sep xray hands/feet- Mild degenerative change. IMPRESSION and PLAN: 1. Seronegative spondyloarthropathy: With joint pain/swelling responsive to systemic effect of localized steroid joint injections in the setting of a positive HLA-B27, x-rays show L SI joint sacroiliitis, history of Crohn's and psoriasis. Remicade with blisters. Has some joint pain. -she is willing to start stelara- ok per Dr. Gold and GI. Will start pending labs and clearance from ortho. She has an ortho procedure scheduled for 01/2023. R/b/a of med discussed and handout on themedication was given to the patient. She is currently doing self injections and states she will need not need injection teaching. 2. Spinal osteoarthritis: - Continue pain clinic management (not [facility]) 3. R rotator cuff tear: - Continue orthopedic management 4. General health maintenance: - Not planning to get the covid vaccine as she had covid in March and previously stated it was not studied enough and she has had concerns about it. Advised in past that my recommendation would be to get the covid vaccine and if she has any questions about it, to let me know. - Advised to continue follow-up with PCP for routine health maintenance and malignancy screening Follow-up in 4 months or sooner if needed. Patient was instructed to call if any questions or concerns. Thank you for allowing me to participate in the care of your patient. I spent a total of 20 minutes on the date of the service which included preparing to see the patient, [id number] patient care, completing clinical documentation, performing a medically appropriate examination, ordering medications, tests, or procedures, and communicating results to the patient/fam fiorella/caregiver. Steve Juarez APRN.LORI documented in this encounterVeterans Health Administration01-26-2023 Instructions* Patient Instructions* Gilmer Kumar MA - 12/08/2022 9:15 AM EST POST IUD INSTRUCTIONS You may have irregular bleeding during the first 3 months of use. You may have mild-severe cramping for the next 48 hours. You may use over the counter medication (Motrin, Tylenol) as needed. Your IUD must be removed or replaced based on the following table: IUD Type Removed or replaced within: Mandie 3 years Kyleena 5 years Mirena 8 years Paragard 10 years Call my office for signs/symptoms of infection such as severe cramping, fever, or unusual bleeding. Check for string placement as instructed by your doctor. If you have any additional questions, please contact the office. documented in this encounterVeterans Health Administration01-26-2023 History of Present illness Narrative* Safia Jamil MD - 12/08/2022 9:14 AM EST Sid presents today for IUD insertion for dysmenorrhea. Patient's last menstrual period was 07/25/2018. GC/chlamydia: Not done: no risk factors and/or patient declines screening test: negative Side effects including irregular bleeding were discussed with the patient. The patient understands that it should be removed in 8 years or sooner if the patient desires a . IUD source: office provided IUD lot #: [id number] Exp date: 12/2024 UNIVERSAL PROTOCOL / SAFETY CHECKLIST Procedure to be Performed: Mirena IUD Insertion Sign In: A Moment of CARE was completed. Personnel directly involved with the procedure wore the appropriate PPE (Personal Protective Equipment). Patient/Surrogate Stated/Verified: PATIENT VERIFIED(optional for EMERGENT procedures): Patient name, Date of , Relevant allergies, and The intended procedure Time Out Communication: Intended patient and procedure match the source documents. Consent documented and matches the intended procedure. Sign Out: SIGN OUT (optional for EMERGENT procedures): No specimen collected. All instruments, equipment, possible retained foreign bodies accounted for. Post-procedure follow-up management communicated and Plan of Care Visit completed when applicable. The cervix was prepped with betadine. A transabdominal ultrasound was performed throughout placement to confirm intrauterine location. The uterus sounded to 7 cm and the uterus is Anteverted.. Using sterile technique, the Mirena IUD was inserted without difficulty and the string was cut to 3 cm from the external os of the cervix. IUD was in correct position on ultrasound. Patient tolerated procedure well. PLAN: Patient was advised to observe for signs and symptoms of infection including but not limited to fever, malodorous vaginal discharge and/or pain. The patient was told to check the string monthlyfor accurate placement. Bleeding expectations were reviewed. Follow up for IUD string check. Epic message sent to GI regarding progesterone IUD for coordination of care, and ok with IUD at this time. Discussed FSH results with pt. Safia Jamil DO documented in this encounterVeterans Health Administration01-19-2023 Instructions* Patient Instructions* Gilmer Kumar MA - 12/01/2022 8:40 AM EST POST IUD INSTRUCTIONS You may have irregular bleeding during the first 3 months of use. You may have mild-severe cramping for the next 48 hours. You may use over the counter medication (Motrin, Tylenol) as needed. Your IUD must be removed or replaced based on the following table: IUD Type Removed or replaced within: Mandie 3 years Kyleena 5 years Mirena 8 years Paragard 10 years Call my office for signs/symptoms of infection such as severe cramping, fever, or unusual bleeding. Check for string placement as instructed by your doctor. If you have any additional questions, please contact the office. documented in this encounterVeterans Health Administration01-19-2023 History of Present illness Narrative* Safia Jamil MD - 12/01/2022 8:39 AM EST Supervisor Blood offered: Patient declines. Sid presents today for IUD insertion for contraception. Patient's last menstrual period was 07/25/2018. GC/chlamydia: Not done: no risk factors and/or patient declines screening test: negative Side effects including irregular bleeding were discussed with the patient. The patient understands that it should be removed in 8 years or sooner if the patient desires a . IUD source: office provided IUD lot #: [id number] Exp date: 10/2024 UNIVERSAL PROTOCOL / SAFETY CHECKLIST Procedure to be Performed: Mirena IUD Insertion Sign In: A Moment of CARE was completed. Personnel directly involved with the procedure wore the appropriate PPE (Personal Protective Equipment). Patient/Surrogate Stated/Verified: PATIENT VERIFIED(optional for EMERGENT procedures): Patient name, Date of , Relevant allergies, and The intended procedure Time Out Communication: Intended patient and procedure match the source documents. Consent documented and matches the intended procedure. Sign Out: SIGN OUT (optional for EMERGENT procedures): No specimen collected. All instruments, equipment, possible retained foreign bodies accounted for. Post-procedure follow-up management communicated and Plan of Care Visit completed when applicable. The cervix was prepped with betadine. Using sterile technique, the Mirena IUD was unable to be inserted. The cervix was able to be dilated, but upon dilation the sound passed posterior to 5 cm as if the uterus was retroflexed. On bimanual exam, the uterus was anteverted. Most recent US checked and uterus anteverted. PLAN: Recommend either consult to complex contraception vs attempting IUD insertion under US guidance. Patient declines consult with complex contraception at this time. Check FSH again today. Most recent in pre menopausal range. Will also route chart to GI to coordinate care. H/o non alcoholic fatty liver disease but denies h/o liver mass and cirrhosis. Discussed with pt option for Paragard IUD as well. She would like the Mirena IUD for prevention and period control. Follow up in 1-2 weeks. Safia Jamil DO documented in this encounterVeterans Health Administration01-13-2023 History of Present illness Narrative* Panda Harrison MD - 11/25/2022 11:19 PM EST [facility] asked for orders which documented in this encounterVeterans Health Administration01-13-2023 Miscellaneous Notes* Telephone Encounter - Lizz Echavarria RN - 11/25/2022 4:50 PM EST Patient notified. Lizz Echavarria RN * Telephone Encounter - Safia Jamil MD - 11/25/2022 4:28 PM EST From my standpoint no, unless she has the injection and sedation first then I am sure she has driving restrictions * Telephone Encounter - Lizz Echavarria RN - 11/25/2022 11:35 AM EST Patient scheduled with SW 12/01/22 for IUD insertion. She is scheduled that same day afternoon for apain injection for sciatic joint. She is under light sedation for that. Asking if there is any contraindication doing those the same day? Lizz Echavarria RN documented in this encounterVeterans Health Administration01-05-2023 History of Present illness Narrative* Safia Jamil MD - 11/17/2022 10:46 AM EST Supervisor Blood offered: Patient declines. Sid Lezama is a 46 year old female who presents for problem visit - pelvic pain and discuss contraception. HPI: Has had left back, flank and pelvic pain for 2 episodes over the last 12 weeks. The pain was severe with nausea and vomiting. The pain was lasting several hours when she had it. She thought maybe this could be a kidney stone or an ovarian cyst. Still having tenderness in LLQ that she rates 1/10. Some white vaginal discharge that has resolved. No other new associated symptoms. Her and her are planning on becoming sexually active. Amenorrhea on POP. FSH in pre menopausal range last year. Would like to discuss sterilization or a more effective form of contraception. 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 Mc, [facility] Type II or unspecified type diabetes mellitus without mention of complication, not stated as uncontrolled Ureterolithiasis 07/18/2019 PAST SURGICAL HISTORY Procedure Laterality Date ADENOIDECTOMY PRIMARY <AGE 11 1986 Adenoidectomy ARTHROSCOPY KNEE DIAGNOSTIC W/WO SYNOVIAL BX SPX 1989 Arthroscopy, knee, left NCC INCL FLUOR GDNCE DX W/CELL WASHG SPX January 2007 Bronchoscopy EPIDURAL 2011 multiple ones done by Dr. Beckett PAST SURGICAL HISTORY OF 06/2000 ILEOSTOMY/COLECTOMY PAST SURGICAL HISTORY OF 1993 CRYOCAUTERY/ MILD DYSPLASIA PAST SURGICAL HISTORY OF March 2006 Abdominal abscess with anal fistula PRCTECT COMPL W/STOT/TOT COLCT W/VENEER JOINER BXS 2006 AP endoanal proctectomy SHOULDER ARTHROSCOPY/SURGERY Left 05/06/2020 Rotator cuff debridement, subacromial decompression/arthroplasty TONSILLECTOMY PRIMARY/SECONDARY <AGE 11 1986 Tonsillectomy FAMILY HISTORY Problem Relation Age of Onset Alcohol/Drug Mother Hypertension Mother COPD other (vascular disease) Mother other (sleep apnea) Mother other (heart murmur) Mother Alcohol/Drug Father Cancer Father liver Asthma Brother Hypertension Daughter Diabetes Maternal Grandmother Stroke Maternal Grandmother Heart Maternal Grandmother Emphysema Paternal Grandmother Diabetes Paternal Grandfather Macular Degen Paternal Grandfather Anesthesia Problems No Family History Social History Tobacco Use Smoking status: Former Packs/day: 1.00 Years: 16.00 Pack years: 16.00 Types: Cigarettes Quit date: 12/04/2006 Years since quittin.9 Smokeless tobacco: Never Vaping Use Vaping Use: Never used Substance Use Topics Alcohol use: No Drug use: No Current Outpatient Medications Medication Sig exenatide microspheres (BYDUREON BCISE) 2 mg/0.85 mL injection Inject 2 mg subcutaneously one time a week. While Ozempic is out metFORMIN (GLUCOPHAGE) 1,000 mg tablet TAKE 1 TABLET TWICE DAILY clobetasol (TEMOVATE) 0.05 % cream Apply to affected area twice daily. Sparingly to feet, knees, palms. pregabalin (LYRICA) 150 mg capsule Take 1 capsule by mouth three times daily for 180 days. Lancing Device with Lancets ACCU CHEK FASTCLIX LANCET *DEVICE* use to check blood glucose up to 2 times per day as instructed. E11.9 Lancets (ACCU-CHEK FASTCLIX LANCET DRUM) lancets Use as instructed to check blood glucose up to 2 times daily. E11.9 insulin glargine (LANTUS SOLOSTAR U-100 INSULIN) 100 unit/mL (3 mL) Inject 46 Units subcutaneously daily at bedtime. blood sugar diagnostic (FREESTYLE PRECISION DAVID STRIPS) test strip Use as instructed E11.9 famotidine (PEPCID) 40 mg tablet Take 1 tablet by mouth twice daily. oxyCODONE-acetaminophen (PERCOCET) 5-325 mg tablet TAKE 1 TABLET BY MOUTH 3 TIMES A DAY NEEDED FOR 28 DAYS semaglutide (OZEMPIC) 2 mg/dose (8 mg/3 mL) pen injector Inject 2 mg subcutaneously one time a week. flash glucose sensor (FREESTYLE GIANFRANCO 2 SENSOR) kit Apply new sensor every fourteen (14) days to upper arm. Dx E11.9 Insulin Lynch, Disposable, (DROPLET PEN NEEDLE) 32 gauge x 5/32 INJECT ONE TIME DAILY Norethindrone, Contraceptive, 0.35 mg tablet TAKE 1 TABLET EVERY DAY rizatriptan (MAXALT VENEER JOINER) 10 mg disintegrating tablet Take 1 tablet by mouth as needed for migraine headache (see administration instructions). May repeat in 2 hours if needed vits62/FA/om3/dha/epa ( GUMMY ORAL) Take 2 Doses by mouth once daily. fluticasone (FLONASE) 50 mcg/actuation nasal spray Use 2 Sprays in each nostril once daily. Blood-Glucose Meter (ACCU-CHEK DIANNE) Test blood sugar(s) 2 times daily. Dx: Type 2 DM - Controlled E11.9 Insulin: No, Accu-check brand covered by insurance Ascorbic Acid 500 mg chew Take 1,000 mg by mouth once daily. With rosehips elderberry fruit (ELDERBERRY ORAL) Take by mouth. cetirizine (ZYRTEC) 10 mg tablet Take 1 tablet by mouth once daily. Cholecalciferol, Vitamin D3, (VITAMIN D-3) 50 mcg (2,000 unit) cap Take 1 capsule by mouth twice daily. COMPOUNDED PRESCRIPTION 1. V44.2 Ileostomy status (HCC) (primary diagnosis) 2. 555.1 Regional enteritis of large intestine (HCC) Ileostomy Supplies. 1. Pouches, 2. Planges, 3. Felipe seals, 4. Stoma adhesive, 5. Stoma powder, 6. Skin preps, 7. Adhesive remover wipes. Dispense 1 year supplies. tiZANidine (ZANAFLEX) 4 mg tablet Take by mouth. . Takes 1 tablet at bedtime. albuterol HFA (PROVENTIL HFA, VENTOLIN HFA) 90 mcg/actuation inhaler Inhale 2 Puffs as instructed every 4 hours as needed for wheezing/shortness of breath. Current Facility-Administered Medications Medication Dose Route Frequency denosumab 60 mg injection (PROLIA) 60 mg SUBCUTANEOUS Q 6 MONTH Allergies As of Date: 11/17/2022 Allergen Noted Reaction AZITHROMYCIN 03/18/2021 Unknown DILAUDID [HYDROMORPHONE (BULK)] 08/07/2006 Swelling LEVEMIR [INSULIN DETEMIR] 02/17/2014 Other: See Comments METHADONE 11/04/2013 Swelling MORPHINE 08/07/2006 Swelling REMICADE [INFLIXIMAB] 08/08/2006 Intolerance and Rash ULTRAM [TRAMADOL HCL] 04/07/2009 Swelling Fully Assessed 11/17/2022 REVIEW OF SYSTEMS Expanded ROS: See HPI. No fevers, chills, bleeding, dysuria. Allergies and current medication updated:Yes EXAM: BP 120/72 Ht 4' 11.5 (1.51m) Wt 181 lb 6.4 oz (82.3kg) LMP 07/25/2018 BMI 36.04 kg/(m^2). GENERAL: pleasant, female in no apparent distress HEENT: Normocephalic, atraumatic, mucus membranes moist, and no lesions NECK: full range of motion DERMATOLOGY: Normal and without lesions CHEST: Normal inspiratory effort ABDOMEN: soft and no masses, +minimal tenderness in LLQ, non acute, non distended, no rebounding, no guarding, no rigidity PELVIC: external genitalia normal, normal Bartholin's glands, urethra, Concord's glands, no vulvar lesions, no cervical lesions, good vaginal support, normal appearing perineal body and perianal region BIMANUAL: uterus normal size, shape and consistency, no adnexal masses, non- tender, and no cervicalmotion tenderness NEURO: exam grossly non-focal EXTREMITIES: normal ASSESSMENT AND PLAN: Encounter Diagnosis ICD-10-CM 1. LLQ pain R10.32 2. Pelvic pain in female R10.2 US FEMALE PELVIS TRANSVAG PELVIC US WHI BACTERIAL VAGINOSIS AMPLIFICATION JUVENCIO / TRICHOMONAS AMPLIFICATION URINE CULTURE URINALYSIS, WITH MICROSCOPIC 3. control counseling Z30.09 4. Contraception, device intrauterine Z97.5 INSERT INTRAUTERINE DEVICE 5. Encounter for IUD insertion Z30.430 INSERT INTRAUTERINE DEVICE 6. Encounter for screening mammogram for breast cancer Z12.31 SÁNCHEZ SCREENING Discussed possible etiologies for pain. Check urine, BV, yeast, pelvic US. Will notify her of results. Comfortable today and exam not acute. Reviewed reasons to call or go into the ER. Reviewed all options for contraception including tubal sterilization and vasectomy. Patient desiresto try progesterone IUD after discussed of r/b/a. RTO for IUD insertion. Safia Jamil DO Medical Decision Making: Problems: Low: Acute, uncomplicated illness or injury Data: Unique test(s) ordered: 3+ Medical Decision Making Level: 3 - Low documented in this encounterVeterans Health Administration12-08-2022 Miscellaneous Notes* Telephone Encounter - Adriana Linder Ma - 10/20/2022 1:04 PM EST Requester: Patient Patients last Endocrinology visit occurred 05/10/22. Follow-up evaluation has been established 01/10/23. Requested Prescriptions Pending Prescriptions Disp Refills tirzepatide (MOUNJARO) 5 mg/0.5 mL pen injector 6 mL 2 Sig: Inject 5 mg subcutaneously one time a week. While Ozempic is out. Contact Dr. Harrison after 4 weeks for higher dose if 5 mg weekly is tolerated If patient is due for an appointment please route to provider for refill consideration and also to the endo scheduling pool. PSS NOTE: Patient needs scheduled appointment No documented in this encounterVeterans Health Administration12-02-2022 Miscellaneous Notes* Letter - Mammography Coordinator - 10/14/2022 2:57 PM EST October 14, 2022 PID: [id number] Sid Lezama [address] [place] [address] Dear Ms. Shelbie, We are pleased to inform you that the results of your recent breast imaging exam on 10/13/2022 are normal. Early detection of cancer is very important. We also understand recommendations regarding breast cancer screening are controversial. Please discuss with your primary care provider which strategy is best for you and whether a mammogram is right for you. Your imaging studies and report will [facility] part of [facility] permanent medical [facility] and are available for your continuing care. Thank you for allowing us to help in meeting your health care needs. Sincerely, Dr. Cavazos Interpreting Radiologist [facility] (Normal over 40) documented in this encounterVeterans Health Administration10-19-2022 Miscellaneous Notes* Telephone Encounter - Panda Harrison MD - 08/31/2022 2:27 PM EDT To appointment pool Pls contact patient Now that she is connected to [employer], need to reschedule appointment with endo Osvaldo to downloadand interpret her continuous glucose monitor Pls give her an appointment anytime between now and October Can be virtual Keep the Dec 2022 visit with me Thank you * Telephone Encounter - Marley Erazo RN - 08/31/2022 10:46 AM EDT Pt. Is properly connected to [employer], no answer so detailed Vm was left for pt. Thanks, IRINEO Ardon RN [facility] * Telephone Encounter - Maykel Nuno MA - 08/31/2022 10:42 AM EDT Patient states she now has her Freestyle Gianfranco 2 sensor connected to her phone and wants to make sure she is connected properly to [employer]. Maykel Nuno, Chief Service Observer II [facility] documented in this encounterVeterans Health Administration09-19-2022 Miscellaneous Notes* Telephone Encounter - Panda Harrison MD - 08/01/2022 1:41 PM EDT I already saw this * Telephone Encounter - Neisha Thomas RN - 08/01/2022 1:18 PM EDT Images from the original note were not included. Called patient, spoke to her about setting up the Smartjog view. She is connected to [employer]. 4 days into this sensor and it has woken her up 3 times during the night. Below 70. One time it said 54- rechecked with finger stick and was accurate. Held Lantus for 2 days and woke up at 104. Did take Lantus last night--did not alarm last night. However she did eat. Advised I would forward to Dr. Harrison and update as needed. Neisha Thomas RN [facility] * Telephone Encounter - Panda Harrison MD - 08/01/2022 1:02 PM EDT Pls see her message and assist Thank you documented in this encounterVeterans Health Administration09-13-2022 History of Present illness Narrative* Safia Kennedy PA-C - 07/26/2022 4:00 PM EDT VIRTUAL VISIT FOLLOW UP I had a virtual visit with Ms. Lezama today for follow up of elevated liver enzymes/fatty liver. UPDATED HISTORY: CC: follow up HPI: Ms. Lezama is a 46 year old Female with past medical history of NAFLD, fibromyalgia, migraines,HLD, vitamin B12 deficiency, GERD, DMT2, Psoriasis, obesity, presenting today for follow up of elevated liver enzymes/fatty liver. Patient was last seen by myself 01/18/22. At last visit: presenting today for follow up of elevated liver enzymes, which is related to NAFLD/BARNES with stage1 fibrosis and stage 3 steatosis on fibroscan. She has good synthetic liver function and normal PLTcount, is also a carrier for hereditary hemochromatosis but no role in phlebotomy. Reviewed pathophysiology of BARNES/NAFLD and risk of progression to cirrhosis without intervention. Tight control of metabolic syndrome is essential while trying to lose weight with lifestyle modifications as below. RECOMMENDATION: -monitor LFTs q2 months over next 6 months -fibroscan 12/2022 -weight loss goal 5% over next 6 months -mediterranean diet -statin okay if needed --increase aerobic exercise with goal >45 minutes 5 days weekly -consider consult to DR. Street with wellness -avoid tumeric supplement -complete abstinence from alcohol -recommend HAV and HBV vaccinations with me/PCP/local pharmacy Follow up 6 months, can be virtual visit Interval hx: Seen by Dr. 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 Remaining systems reviewed and are negative. 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 Mc, [facility] Type II or unspecified type diabetes mellitus without mention of complication, not stated as uncontrolled Ureterolithiasis 07/18/2019 PAST SURGICAL HISTORY Procedure Laterality Date ADENOIDECTOMY PRIMARY <AGE 11 1986 Adenoidectomy ARTHROSCOPY KNEE DIAGNOSTIC W/WO SYNOVIAL BX SPX 1989 Arthroscopy, knee, left BRNCHSC INCL FLUOR GDNCE DX W/CELL WASHG SPX January 2007 Bronchoscopy EPIDURAL 2011 multiple ones done by Dr. Beckett PAST SURGICAL HISTORY OF 06/2000 ILEOSTOMY/COLECTOMY PAST SURGICAL HISTORY OF 1993 CRYOCAUTERY/ MILD DYSPLASIA PAST SURGICAL HISTORY OF March 2006 Abdominal abscess with anal fistula PRCTECT COMPL W/STOT/TOT COLCT W/VENEER JOINER BXS 2006 AP endoanal proctectomy SHOULDER ARTHROSCOPY/SURGERY Left 05/06/2020 Rotator cuff debridement, subacromial decompression/arthroplasty TONSILLECTOMY PRIMARY/SECONDARY <AGE 12 1986 Tonsillectomy FAMILY HISTORY Problem Relation Age of Onset Alcohol/Drug Mother Hypertension Mother COPD other (vascular disease) Mother other (sleep apnea) Mother other (heart murmur) Mother Alcohol/Drug Father Cancer Father liver Asthma Brother Hypertension Daughter Diabetes Maternal Grandmother Stroke Maternal Grandmother Heart Maternal Grandmother Emphysema Paternal Grandmother Diabetes Paternal Grandfather Macular Degen Paternal Grandfather Anesthesia Problems No Family History Social History Tobacco Use Smoking status: Former Packs/day: 1.00 Years: 16.00 Pack years: 16.00 Types: Cigarettes Quit date: 12/04/2006 Years since quittin.6 Smokeless tobacco: Never Vaping Use Vaping Use: Never used Substance Use Topics Alcohol use: No Drug use: No Current Outpatient Medications Medication Sig Dispense Refill Lancing Device with Lancets ACCU CHEK FASTCLIX LANCET *DEVICE* use to check blood glucose up to 2 times per day as instructed. E11.9 1 Each 11 Lancets (ACCU-CHEK FASTCLIX LANCET DRUM) lancets Use as instructed to check blood glucose up to 2 times daily. E11.9 200 Each 3 insulin glargine (LANTUS SOLOSTAR U-100 INSULIN) 100 unit/mL (3 mL) Inject 46 Units subcutaneously daily at bedtime. 60 mL 2 blood sugar diagnostic (FREESTYLE PRECISION DAVID STRIPS) test strip Use as instructed E11.9 200 Each2 famotidine (PEPCID) 40 mg tablet Take 1 tablet by mouth twice daily. 180 tablet 3 oxyCODONE-acetaminophen (PERCOCET) 5-325 mg tablet TAKE 1 TABLET BY MOUTH 3 TIMES A DAY NEEDED FOR 28 DAYS semaglutide (OZEMPIC) 2 mg/dose (8 mg/3 mL) pen injector Inject 2 mg subcutaneously one time a week. 15 mL 2 flash glucose sensor (FREESTYLE GIANFRANCO 2 SENSOR) kit Apply new sensor every fourteen (14) days to upper arm. Dx E11.9 6 Each 4 pregabalin (LYRICA) 150 mg capsule Take 1 capsule by mouth three times daily for 180 days. 270 capsule 1 Insulin Lynch, Disposable, (DROPLET PEN NEEDLE) 32 gauge x 5/32 INJECT ONE TIME DAILY 100 Each 0 Norethindrone, Contraceptive, 0.35 mg tablet TAKE 1 TABLET EVERY DAY 84 tablet 3 clobetasol (TEMOVATE) 0.05 % cream Apply to affected area twice daily. Sparingly to feet, knees, palms. 60 g 1 rizatriptan (MAXALT VENEER JOINER) 10 mg disintegrating tablet Take 1 tablet by mouth as needed for migraine headache (see administration instructions). May repeat in 2 hours if needed 9 tablet 2 metFORMIN (GLUCOPHAGE) 1,000 mg tablet TAKE 1 TABLET TWICE DAILY 180 tablet 2 albuterol HFA (PROVENTIL HFA, VENTOLIN HFA) 90 mcg/actuation inhaler Inhale 2 Puffs as instructed every 4 hours as needed for wheezing/shortness of breath. 1 Each 1 vits62/FA/om3/dha/epa ( GUMMY ORAL) Take 2 Doses by mouth once daily. fluticasone (FLONASE) 50 mcg/actuation nasal spray Use 2 Sprays in each nostril once daily. 1 Bottle 2 Magnesium Oxide 500 mg cap Take 1 capsule by mouth twice daily. (Patient not taking: Reported on 07/25/2022) Blood-Glucose Meter (ACCU-CHEK DIANNE) Test blood sugar(s) 2 times daily. Dx: Type 2 DM - Controlled E11.9 Insulin: No, Accu-check brand covered by insurance 1 Each 0 Ascorbic Acid (VITAMIN C) 500 mg chew Take 1,000 mg by mouth once daily. With rosehips elderberry fruit (ELDERBERRY ORAL) Take by mouth. cetirizine (ZYRTEC) 10 mg tablet Take 1 tablet by mouth once daily. 90 tablet 3 mecobalamin, vitamin B12, 5,000 mcg ODT Take 1 tablet by mouth once daily. (Patient not taking: Reported on 07/25/2022) Biotin 10,000 mcg cap Take 1 capsule by mouth twice daily. (Patient not taking: Reported on 07/25/2022) Cholecalciferol, Vitamin D3, (VITAMIN D-3) 50 mcg (2,000 unit) cap Take 1 capsule by mouth twice daily. acidophilus-pectin, citrus (ACIDOPHILUS PROBIOTIC) 100 million cell-10 mg cap Take 1 cap daily 90 capsule 2 COMPOUNDED PRESCRIPTION 1. V44.2 Ileostomy status (HCC) (primary diagnosis) 2. 555.1 Regional enteritis of large intestine (HCC) Ileostomy Supplies. 1. Pouches, 2. Planges, 3. Felipe seals, 4. Stoma adhesive, 5. Stoma powder, 6. Skin preps, 7. Adhesive remover wipes. Dispense 1 year supplies. 20 bag 11 tizanidine (ZANAFLEX) 4 mg ORAL tablet Take by mouth. . Takes 1 tablet at bedtime. Current Facility-Administered Medications Medication Dose Route Frequency Provider Last Rate Last Admin denosumab 60 mg injection (PROLIA) 60 mg SUBCUTANEOUS Q 6 MONTH Panda Harrison MD ALLERGIES Allergen Reactions Azithromycin Unknown thinks a rash Dilaudid [Hydromorp* Swelling migraines Levemir [Insulin De* Other: See Comments Urine turned dark and smelly Methadone Swelling migraine Morphine Swelling migraines Remicade [Inflixima* Intolerance, Rash broke out in blisters with the 6th dose. Ultram [Tramadol Hc* Swelling migraines REVIEW OF SYSTEMS: PAIN ASSESSMENT: Negative for pain, history of chronic pain, or current treatment for a chronic pain condition. 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 PHYSICAL FINDINGS OF NOTE: General - Normal, cooperative, in no acute distress Able to interact verbally by video conference Psych - ORIENTATION: normal to time place, person and situation Mood/Affect: AFFECT AND MOOD: Normal Head/Neuro - Normal size and shape Facial appearance normal Pulmonary - respiratory effort normal Cardiovascular - patient describes extremities normal and warm Abdominal - Not performed Skin - abnormal lesions not visualized Motor - patient seen sitting with Normal appearing strength and coordination REVIEWED ITEMS RUQ US 01/06/22: IMPRESSION: Findings are suggestive of hepatic steatosis. IMPRESSION Ms. Lezama is a 46 year old Female with past medical history of NAFLD, fibromyalgia, migraines, HLD,vitamin B12 deficiency, GERD, DMT2, Psoriasis, obesity, presenting today for follow up of elevated liver enzymes/fatty liver. Last fibroscan stage 1 fibrosis, stage 3 steatosis, however she has lost 20 pounds intentionally since last visit, which should be helpful to reduce steatosis and fibrosis over time. Discussed pathophysiology of BARNES/NAFLD and risk of progression to cirrhosis along with lifestyle modification management as below. RECOMMENDATION: Fibroscan 12/2022 Repeat labs with LFTs every 3-4 months Update fasting lipid panel and hgb [id number] to assist with management/screening as tight control of metabolic syndrome is essential Continued weight loss efforts with goal 5% loss over next 6 months Mediterranean diet/increased cardiovascular exercise with goal >45 minutes 5 days weekly Avoid liver detox cleanse/supplements/tumeric Not to exceed 2,000 mg tylenol daily Needs HAV/HBV vaccination Okay to start on Humira/Stelara from liver perspective Continue GI follow up for IBD Follow up 5-6 months with fibroscan and LFTs prior. I spent a total of 30 minutes on the date of the service which included preparing to see the patient, [id number] patient care, completing clinical documentation, obtaining and/or reviewing separately obtained history, performing a medically appropriate examination, counseling and educating the pat ient/family/caregiver, ordering medications, tests, or procedures, communicating with other HCPs (not separately reported), and independently interpreting results (not separately reported). Safia Kennedy PA-C July 26, 2022 4:28 PM documented in this encounterVeterans Health Administration09-12-2022 History of Present illness Narrative* Scott Gold MD - 07/25/2022 10:06 AM EDT On 07/25/2022, I had the pleasure of seeing Sid Lezama at the [facility] for follow-up of seronegative spondyloarthropathy HPI: To review, Sid Lezama is a 46 year old female - Since teenage years, with intermittent joint pain and swelling. Affected joints include the wrists, MCPs, PIPs, knees, ankles and toes. Also gets hip pain. Eases with movement/activity. Worst pain is evening. - In April, diagnosed with Crohn's per colonoscopy. Underwent surgery to remove the large intestine. - In , had a rectal fistula so tried remicade (stopped s/p 6th dose for rash). Rectal stump was removed after that. - Sees pain management for serial spinal injections - In , diagnosed with psoriasis over scalp, knees and dorsal feet. - In Jun, reported no GI issues, no need for medication or surgery for Crohn's since . Diagnosed with SpA. Advised humira which she decided against starting given c/f potential SE - Since February, has been seeing holistic provider. Taking supplements - Today, reports she has lost 20 lbs. Overall stable. - Overall pain is 2-4/10 depending on the weather. 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 Mc, [facility] Type II or unspecified type diabetes mellitus without mention of complication, not stated as uncontrolled Ureterolithiasis 07/18/2019 GERD PAST SURGICAL HISTORY Procedure Laterality Date ADENOIDECTOMY PRIMARY <AGE 11 1986 Adenoidectomy ARTHROSCOPY KNEE DIAGNOSTIC W/WO SYNOVIAL BX SPX 1989 [facility], [facility], [facility] W/CELL WASHG SPX January 2007 Bronchoscopy EPIDURAL 2011 multiple ones done by Dr. Beckett PAST SURGICAL HISTORY OF 06/2000 ILEOSTOMY/COLECTOMY PAST SURGICAL HISTORY OF 1993 CRYOCAUTERY/ MILD DYSPLASIA PAST SURGICAL HISTORY OF March 2006 Abdominal abscess with anal fistula PRCTECT COMPL W/STOT/TOT COLCT W/VENEER JOINER BXS 2006 AP endoanal proctectomy SHOULDER ARTHROSCOPY/SURGERY Left 05/06/2020 Rotator cuff debridement, subacromial decompression/arthroplasty TONSILLECTOMY PRIMARY/SECONDARY <AGE 11 1986 Tonsillectomy ALLERGIES Allergen Reactions Azithromycin Unknown thinks a rash Dilaudid [Hydromorp* Swelling migraines Levemir [Insulin De* Other: See Comments Urine turned dark and smelly Methadone Swelling migraine Morphine Swelling migraines Remicade [Inflixima* Intolerance, Rash broke out in blisters with the 6th dose. Ultram [Tramadol Hc* Swelling migraines MEDICATIONS: Current Outpatient Medications Medication Sig Lancing Device with Lancets ACCU CHEK FASTCLIX LANCET *DEVICE* use to check blood glucose up to 2 times per day as instructed. E11.9 Lancets (ACCU-CHEK FASTCLIX LANCET DRUM) lancets Use as instructed to check blood glucose up to 2 times daily. E11.9 insulin glargine (LANTUS SOLOSTAR U-100 INSULIN) 100 unit/mL (3 mL) Inject 46 Units subcutaneously daily at bedtime. blood sugar diagnostic (FREESTYLE PRECISION DAVID STRIPS) test strip Use as instructed E11.9 famotidine (PEPCID) 40 mg tablet Take 1 tablet by mouth twice daily. oxyCODONE-acetaminophen (PERCOCET) 5-325 mg tablet TAKE 1 TABLET BY MOUTH 3 TIMES A DAY NEEDED FOR 28 DAYS semaglutide (OZEMPIC) 2 mg/dose (8 mg/3 mL) pen injector Inject 2 mg subcutaneously one time a week. flash glucose sensor (FREESTYLE GIANFRANCO 2 SENSOR) kit Apply new sensor every fourteen (14) days to upper arm. Dx E11.9 pregabalin (LYRICA) 150 mg capsule Take 1 capsule by mouth three times daily for 180 days. Insulin Lynch, Disposable, (DROPLET PEN NEEDLE) 32 gauge x 5/32 INJECT ONE TIME DAILY Norethindrone, Contraceptive, 0.35 mg tablet TAKE 1 TABLET EVERY DAY clobetasol (TEMOVATE) 0.05 % cream Apply to affected area twice daily. Sparingly to feet, knees, palms. rizatriptan (MAXALT VENEER JOINER) 10 mg disintegrating tablet Take 1 tablet by mouth as needed for migraine headache (see administration instructions). May repeat in 2 hours if needed metFORMIN (GLUCOPHAGE) 1,000 mg tablet TAKE 1 TABLET TWICE DAILY albuterol HFA (PROVENTIL HFA, VENTOLIN HFA) 90 mcg/actuation inhaler Inhale 2 Puffs as instructed every 4 hours as needed for wheezing/shortness of breath. vits62/FA/om3/dha/epa ( GUMMY ORAL) Take 2 Doses by mouth once daily. fluticasone (FLONASE) 50 mcg/actuation nasal spray Use 2 Sprays in each nostril once daily. Blood-Glucose Meter (ACCU-CHEK DIANNE) Test blood sugar(s) 2 times daily. Dx: Type 2 DM - Controlled E11.9 Insulin: No, Accu-check brand covered by insurance Ascorbic Acid (VITAMIN C) 500 mg chew Take 1,000 mg by mouth once daily. With rosehips elderberry fruit (ELDERBERRY ORAL) Take by mouth. cetirizine (ZYRTEC) 10 mg tablet Take 1 tablet by mouth once daily. Cholecalciferol, Vitamin D3, (VITAMIN D-3) 50 mcg (2,000 unit) cap Take 1 capsule by mouth twice daily. acidophilus-pectin, citrus (ACIDOPHILUS PROBIOTIC) 100 million cell-10 mg cap Take 1 cap daily COMPOUNDED PRESCRIPTION 1. V44.2 Ileostomy status ([facility]) (primary diagnosis) 2. 555.1 Regional enteritis of large intestine ([facility]) Ileostomy Supplies. 1. Pouches, 2. Planges, 3. Felipe seals, 4. Stoma adhesive, 5. Stoma powder, 6. Skin preps, 7. Adhesive remover wipes. Dispense 1 year supplies. tizanidine (ZANAFLEX) 4 mg ORAL tablet Take by mouth. . Takes 1 tablet at bedtime. Magnesium Oxide 500 mg cap Take 1 capsule by mouth twice daily. (Patient not taking: Reported on 07/25/2022) mecobalamin, vitamin B12, 5,000 mcg ODT Take 1 tablet by mouth once daily. (Patient not taking: Reported on 07/25/2022) Biotin 10,000 mcg cap Take 1 capsule by mouth twice daily. (Patient not taking: Reported on 07/25/2022) Current Facility-Administered Medications Medication Dose Route Frequency denosumab 60 mg injection (PROLIA) 60 mg SUBCUTANEOUS Q 6 MONTH FAMILY HISTORY Problem Relation Age of Onset Alcohol/Drug Mother Hypertension Mother COPD other (vascular disease) Mother other (sleep apnea) Mother other (heart murmur) Mother Alcohol/Drug Father Cancer Father liver Asthma Brother Hypertension Daughter Diabetes Maternal Grandmother Stroke Maternal Grandmother Heart Maternal Grandmother Emphysema Paternal Grandmother Diabetes Paternal Grandfather Macular Degen Paternal Grandfather Anesthesia Problems No Family History F-hemochromatosis, in from it. SOCIAL HISTORY: Lives in [place], [place] with spouse. 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 1 daughter, 24 yo lives with her. Studied [employer], just graduated college. Tobacco use: None Alcohol use: None Drug use: None REVIEW OF SYSTEMS: reviewed 08/26 systems, as above PHYSICAL EXAM: VITALS: Blood pressure 109/75, pulse 83, temperature 36.3 C (97.4 F), temperature source Temporal, height 151.1 cm (4' 11.5), weight 78.5 kg (173 lb), last menstrual period 07/25/2018. CONSTITUTIONAL: Well-appearing, in NAD. SKIN: No sclerodactyly, calcinosis, telangiectasias, digital ulcers, or skin thickening. EYES: No scleral icterus or conjunctivitis. ENT and Mouth: External ears normal. Nares normal. RESPIRATORY: Normal breath sounds, clear to auscultation. CARDIOVASCULAR: Regular rate and rhythm, no murmurs or rubs EXTREMITIES/LYMPH: No edema bilaterally NEURO: Awake, alert and oriented, antalgic gait MUSCULOSKELETAL: JOINT APPEARANCE: No erythema or warmth of any upper or lower extremity joint. RANGE OF MOTION: Able to fully close fists and curl fingers bilaterally. SWOLLEN JOINTS/SYNOVITIS: No synovitis of any joint. TENDER JOINTS: None *Jun Widespread Pain Index: 16 (0-19) Symptoms Severity Scale: 6 (0-12) WPI>7 and SS Scale>5 OR WPI 3-6 and SS Scale >9 consistent with fibromyalgia LABORATORY: Component Latest Ref Rng & Units 03/24/2022 04/19/2022 WBC 3.70 - 11.00 k/uL 7.35 RBC 3.90 - 5.20 m/uL 5.45 (H) Hemoglobin 11.5 - 15.5 g/dL 15.6 (H) Platelet Count 150 - 400 k/uL 273 Calcium 8.5 - 10.2 mg/dL 11.0 (H) Bilirubin, Total 0.2 - 1.3 mg/dL 0.3 Alkaline Phosphatase 34 - 123 U/L 107 AST 13 - 35 U/L 31 ALT 7 - 38 U/L 30 Glucose 74 - 99 mg/dL 77 BUN 7 - 21 mg/dL 15 Creatinine 0.58 - 0.96 mg/dL 0.59 Sodium 136 - 144 mmol/L 139 Potassium 3.7 - 5.1 mmol/L 4.2 Chloride 97 - 105 mmol/L 107 (H) CO2 22 - 30 mmol/L 16 (L) Anion Gap 9 - 18 mmol/L 16 eGFR >=60 mL/min/1.73m 112 *April neg quant gold Component Latest Ref Rng & Units 04/19/2022 Hep C Antibody IA Negative Negative Hep B Surface Ag Negative Negative Hep B Surface Ab, Qual Negative Negative Hep B Core Ab, Total Negative Negative Component Latest Ref Rng & Units 09/19/2011 12/21/2011 Rheumatoid Factor <20 IU/mL <7 CCP Antibody, IgG <20 Units <15 HLA B27 NEGAT Positive (A) INOCENCIO by EIA <1.5 OD Ratio 0.4 Anti-SSA <1.0 AI <0.2 Anti-SSB <1.0 AI <0.2 STUDIES: *April MRI R shoulder- mild supraspinatus tendinosis *Oct xray L foot- Calcaneal enthesophytes. *Oct MRI pelvis- NO ACUTE ABNORMALITY Sacroiliac joints: Punctate area of subchondral edema within the right sacrum at the SI joint on series 8 image 11, doubtful clinical significance. *Sep xray SI joints- Asymmetrical sacroiliitis involving the left SI joint. *Sep xray hands/feet- Mild degenerative change. IMPRESSION and PLAN: 1. Seronegative spondyloarthropathy: With joint pain/swelling responsive to systemic effect of localized steroid joint injections in the setting of a positive HLA-B27, x-rays show L SI joint sacroiliitis, history of Crohn's and psoriasis. Remicade with blisters. Has some joint pain - Advised about potential for progression of joint damage and that for SpA, biologics like humira have been shown to decrease symptoms like SI joint pain in setting of sacroiliitis. - Continues to defer biologic initiation for now (GI provider mentioned humira vs stelara). She will let me know in the interim if she decides to pursue this 2. Spinal osteoarthritis: - Continue pain clinic management (not [facility]) 3. R rotator cuff tear: - Continue orthopedic management 4. General health maintenance: - Not planning to get the covid vaccine as she had covid in March and previously stated it was not studied enough and she has had concerns about it. Advised in past that my recommendation would be to get the covid vaccine and if she has any questions about it, to let me know. - Advised to continue follow-up with PCP for routine health maintenance and malignancy screening Follow-up in 4, 8 & 12 months with Steve and 16 months with me or sooner if needed. Patient was instructed to call if any questions or concerns. Thank you for allowing me to participate in the care of your patient. Scott Gold MD documented in this encounterVeterans Health Administration09-07-2022 Miscellaneous Notes* Telephone Encounter - Cesilia Stern - 07/20/2022 3:02 PM EDT PT scheduled for MSK US on 09/12/22 at 2:15 pm at [facility]. * Telephone Encounter - Joe Green - 07/20/2022 2:38 PM EDT Visit Type: ANY MSK Visit Length: 45, 50 OR 60 MINUTES Order Name/Protocol: US ELBOW RT; LATERAL-EVAL FOR EPICONDYLITIS Preferred Provider: N/A Comment: Please ask if the patient has ever had any prior surgery to their RT ELBOW. If so, upgradethe visit type to an MSK1 and notate the surgical hx in the Appointment Note. Location: Depending on the surgical hx, this patient can have this exam performed at any of our three locations. Slot held: N/A documented in this encounterVeterans Health Administration08-04-2022 History of Present illness Narrative* Randal Prakash, PT - 06/16/2022 11:09 AM EDT Episode Visit Count: 9 Therapist That Will Oversee The Plan Of Care: Randal Randall Start of Care Date: 03/18/22 Onset Date: 06/22/21 Plan of Care Certification Date: 05/10/22 Next Certification Due Date: 06/24/22 [facility] PHYSICAL THERAPY DISCONTINUANCE OF CARE PLAN OF CARE UPDATE: Assessment: Sid Braydon Lezama is discontinued from Physical Therapy services due to goal achievement.. Patient was seen for 9 visits from Start of Care Date: 03/18/22 to 06/16/2022 and treatment included: Therapeutic exercise, Manual therapy and Therapeutic activities. Patient with good progress and understanding of HEP. Patient should be able to progress with continued compliance. Right Shoulder Goals for Episode of Care: created on 03/18/22 through 05/18/22; updated 05/10 [place] in home exercise program. (MET) Perform ADLs with less than 2/10 right shoulder pain. (MET) Increase ROM of right shoulder IR/Ext AROM behind back to thumb at T9 without increased pain. (progressing toward goal) Increased strength of right biceps curl 8# 10 x. (MET) Right shoulder ER and IR strength 4+/5 MMT without increased pain. (MET) Right shoulder flexion strength 4+/5 MMT without increased pain. (MET) Pt will report right biceps doesn't cramp when tossing wood into pile for preparing wood to heat home. (MET) Patient Goals: decrease shoulder pain, improve ROM and strength (MET) SUBJECTIVE: Patient Reason for Visit: Pt notes less R shoulder pain today. Pt continues to be compliant with HEP. Pt notes she is able to sleep on her R side.. Pain: Pain Pain Level: 0 Post Treatment Pain Post Treatment Pain Level: 0 PROMIS Scales Higher is Better 06/23/2021 02/08/2022 05/24/2022 Phys Func - Score - 33 (moderate dysfunction) 39 (moderate dysfunction) Phys Func - Percentile - 4 % 14 % Social Roles - Score 37 (moderate dysfunction) 45 (within normal limits) 42 (mild dysfunction) Social Role - Percentile 10 % 31 % 21 % GH Physical - Score - 39.8 (Fair) 29.6 (Poor) GH Physical - Percentile - 15 % 2 % GH Mental - Score - 41.1 (Good) 43.5 (Good) GH Mental - Percentile - 19 % 26 % Self-Eff Symptom - Score 34 (Low) 54 (Average) 42 (Average) Self-Eff Symptom - Percentile 5 % 66 % 21 % T-scores: mean of general population = 50. 5 points is clinically meaningfully difference Percentiles provide an indication of how the patient's score ranks in relation to the general population. Higher percentile rankings indicate better function/quality of life. 50th percentile is the average of the general population and indicates half of respondents had a worse score. Lower is Better 06/18/2021 02/08/2022 05/24/2022 Fatigue - Score 74 (severe) 64 (moderate) 68 (moderate) Fatigue - Percentile 1 % 8 % 4 % T-scores: mean of general population = 50. 5 points is clinically meaningfully difference Percentiles provide an indication of how the patient's score ranks in relation to the general population. Higher percentile rankings indicate better function/quality of life. 50th percentile is the average of the general population and indicates half of respondents had a worse score. OBJECTIVE MEASURES WITH LEVEL OF FUNCTION: UE AROM R Shoulder Extension: 70 Degrees R Shoulder Flex: 170 Degrees R Shoulder ABduction: 170 Degrees R Shoulder Internal Rotation (Functional): T10 R Shoulder External Rotation (Functional): T3 UE and Cervical Strength Strength Tested: Hand R Shoulder Extension: 5/5 R Shoulder Flexion: 5/5 R Shoulder Abduction (C5): 5/5 R Shoulder Internal Rotation: 5/5 R Shoulder External Rotation: 5/5 R Elbow Extension (C7): 5/5 R Elbow Flexion (C6): 5/5 L Shoulder Extension: 5/5 L Shoulder Flexion: 5/5 L Shoulder Abduction (C5): 5/5 L Shoulder Internal Rotation: 5/5 L Shoulder External Rotation: 5/5 L Elbow Extension (C7): 5/5 L Elbow Flexion (C6): 5/5 Hand Strength R Conversion Developer Position 2 (lbs): 55 lbs L Conversion Developer Position 2 (lbs): 50 lbs TREATMENT: Therapeutic Exercise: 1: UBE 90 RPM x 3 minutes forward, 3 minutes retro 2: doorway R shoulder flexion 10x5 seconds 3: towel R shoulder IR stretch 3x20 seconds 4: recheck as above 5: reviewed current HEP and emphasized continued compliance 3-4x/week for strengthening ther ex Skilled Intervention: Patient was educated in proper exercise technique and purpose for exercises. Skilled judgment was provided in selection of appropriate interventions. Correct performance of therapeutic exercises was facilitated with verbal cuing. Therapeutic Activity: 2: 7 pound dumbell transfer waist to eye level (37-55) 10x R UE 3: 5 pound dumbell transfer waist to overhead (37-64) 5x R UE 4: 20 pound box transfer waist to shoulder level (37-52) 5x Skilled Intervention: Instructed on proper lifting and carrying techniques with importance of core activation. Educated on proper/safe technique for activities performed today. Activity progression based on professional judgment. Billing Therapeutic Exercise Treatment Minutes: 25 Therapeutic Activity Treatment Minutes: 6 Total Treatment Time Minutes (timed/untimed): 34 Randal Randall PT documented in this encounterVeterans Health Administration08-03-2022 Miscellaneous Notes* Telephone Encounter - Jay Ricardo - 06/15/2022 2:26 PM EDT Patient also needs prescription for Freestyle DAVID Test Strips. Test strips on file are incorrect. Needs to go to local pharmacy Requester: Patient Patients last Endocrinology visit occurred 05/10/2022. Follow-up evaluation has been established 06/22/2022. Pending Prescriptions Disp Refills ACCU-CHEK GUIDE L1-L2 CONTROL SOLUTION 1 Each 1 Sig: Use as directed JEFFERSON: No If patient is due for an appointment please route to provider for refill consideration and also to the endo scheduling pool. PSS NOTE: Patient needs scheduled appointment No documented in this encounterVeterans Health Administration07-26-2022 Miscellaneous Notes* Telephone Encounter - Yudith Chow RN - 06/07/2022 12:[address] Harrison, Patient Called today asking for Rx for strips and control solution. She wants the Rx to be sent to [id number] - [place] [address] [id number] [facility]. - [phone] Thank you Yudith Chow, MSN, RN [facility] documented in this encounterVeterans Health Administration07-19-2022 Miscellaneous Notes* Telephone Encounter - Laina Monroe LPN - 05/31/2022 3:50 PM EDT Last office visit: 01/27/2022 6 month follow-up: 08/01/2022 Laina Monroe LPN documented in this encounterVeterans Health Administration07-19-2022 Miscellaneous Notes* Telephone Encounter - Sara Russell - 05/31/2022 3:24 PM EDT I called the patient to schedule her with one of the pharmacist per Dr. Harrison's request. We were speaking and got disconnected. I called back several times and got the voicemail. I left her a message with the phone number to call and schedule the appointment. Sara Russell documented in this encounterVeterans Health Administration07-12-2022 Miscellaneous Notes* Telephone Encounter - Arlin Jordan Fiber Optic Assembly Worker - 05/24/2022 4:10 PM EDT CGM form faxed to [facility] Medical. Successfully transmitted to documented in this encounterVeterans Health Administration07-12-2022 History of Present illness Narrative* Randal Randall PT - 05/24/2022 1:07 PM EDT Episode Visit Count: 7 Therapist That Will Oversee The Plan Of Care: Randal Randall Start of Care Date: 03/18/22 Onset Date: 06/22/21 Plan of Care Certification Date: 05/10/22 Next Certification Due Date: 06/24/22 REHABILITATION AND SPORTS THERAPY PHYSICAL THERAPY TREATMENT NOTE ASSESSMENT: Sid Lezama tolerated the session with decreased symptoms. She demonstrated RIGHTshoulder AROM and strength WNL and similar to prior recheck without any loss of motion or strength.Patient with increased gravel sensation in RIGHT bicep with IASTM. The patient will continue to benefit from ongoing skilled physical therapy to progress toward set goals. PLAN FOR NEXT VISIT: continue with functional lifting activities; progress HEP to include counter top push ups SUBJECTIVE: Patient Reason for Visit: Pt with an increase in R shoulder pain since Monday. Pt notes that she used TENS unit, massage, ice and biofreeze for pain relief. Pt notes that she has been limiting use of her R arm due to pain. Pt notes that she is sleeping on her back. Pt tried performingHEP but was limited due to a pulling in her R pectoral region. Pt denies any relief from massage. Pt does recall lifting two one gallon water jugs in her R arm on Monday. Pain: Pain Pain Level: 6 Pain Location: Shoulder - Right;Chest - Right Description: Burning (pull) Frequency: With movement OBJECTIVE MEASURES WITH LEVEL OF FUNCTION: Shoulder Observations R Shoulder Palpation Tenderness: Rotator cuff muscles;Medial scapula R Shoulder Palpation Tenderness Comments: bicep tendon UE AROM R Shoulder Extension: 70 Degrees R Shoulder Flex: 170 Degrees (pain) R Shoulder ABduction: 175 Degrees (painful arc above 100 degrees) R Shoulder Internal Rotation (Functional): T12 R Shoulder External Rotation (Functional): T3 UE and Cervical Strength R UE Strength: soreness with MMT R Shoulder Extension: 5/5 R Shoulder Flexion: 4+/5 R Shoulder Abduction (C5): 4+/5 R Shoulder Internal Rotation: 5/5 R Shoulder External Rotation: 5/5 R Elbow Extension (C7): 5/5 R Elbow Flexion (C6): 5/5 TREATMENT: Therapeutic Exercise: 1: SciFit L3 x 3 minutes forward 3 minutes retro seat 7 2: doorway R shoulder flexion 10x5 seconds 3: seated mamadou R shoulder flexion and scaption 10x5 seconds Skilled Intervention: Patient was educated in proper exercise technique and purpose for exercises. Skilled judgment was provided in selection of appropriate interventions. Correct performance of therapeutic exercises was facilitated with verbal cuing. Patient education to allow RIGHT arm to freely swing with ambulation and avoid protective guarding Manual Therapy: 1: supine IASTM to R bicep, deltoid and pec insertion Skilled Intervention: Manual skills to improve joint mobility, ROM, and decrease pain. Utilized anatomy knowledge of the therapist, and assessment of patient's response to intervention. Billing Therapeutic Exercise Treatment Minutes: 30 Manual TherapyTreatment Minutes: 10 Total Treatment Time Minutes (timed/untimed): 45 Randal Randall PT documented in this encounterVeterans Health Administration07-07-2022 Miscellaneous Notes* Telephone Encounter - Jay Ricardo - 05/19/2022 10:41 AM EDT Received M Physician's order for Freestyle Gianfranco 2 sensor and supplies. Awaiting signature documented in this encounterVeterans Health Administration07-06-2022 Miscellaneous Notes* Telephone Encounter - Panda Harrison MD - 05/18/2022 5:01 PM EDT Please remind patient 1) we are holding off on Prolia now 2) I need to see the 24 hour urine calcium results first 3) even if it comes soon, no ruiz on the Prolia and you will need prior auth so cancel 05/30 Prolia for now * Telephone Encounter - Yudith Chow RN - 05/18/2022 3:[address] Harrison, Does Ms. Lezama still needs Prolia? Patient requested to be schedule on 05/30/22 at 1030. Needs PA. I notice the order for 24 Hrs. Urine. Please let us know when you have the results. Thank you Yudith Chow RN May 18, 2022 3:55 PM documented in this encounterVeterans Health Administration07-06-2022 Miscellaneous Notes* Telephone Encounter - Stacy Jaeger Adm - 05/18/2022 11:48 AM EDT Initiated PA for Freestyle Gianfranco 2 [place] and [employer] via [place] Errored in Epic, processing through [employer] Sensors: [place]: [id number] [place]: Waiting for next steps Received message through groopify to call [phone] to process PA's Had to do a verbal PA, but no questions were asked Need to fax clinical information, labs etc to: Clinical Intake Team [phone] Include Providers name, NPI, Member name, :, Member ID # Include Ref # [id number] Fax transmitted successfully Spent 20 minutes on the call * Telephone Encounter - Arlin Jordan Fiber Optic Assembly Worker - 05/11/2022 12:55 PM EDT Patient called in stating her free style gianfranco reader and sensor will require a prior auth. documented in this encounterVeterans Health Administration07-05-2022 Miscellaneous Notes* Telephone Encounter - Panda Harrison MD - 05/17/2022 4:42 PM EDT Routing to scheduling pool Pls contact patient pls give pharmacist appointment to download and interpret CGM 3 weeks from now i reordered the 24 hour urine calcium order Thank you * Telephone Encounter - Arlin Jordan Fiber Optic Assembly Worker - 05/17/2022 10:42 AM EDT Patient called in with an update for the physician. Patient will have to redo the 24 hour urine dueto the lab not recording the volume. Patient stated she will take care of this this week. Patients Free Style Gianfranco 2 will be delivered between 7-10 business days. documented in this encounterVeterans Health Administration06-29-2022 Miscellaneous Notes* Telephone Encounter - Panda Harrison MD - 05/11/2022 3:09 PM EDT noted * Telephone Encounter - Latasha Peng RN - 05/11/2022 1:10 PM EDT Spoke with Sid Lezama on May 11, 2022. ONUR 05/10/22 NOV n/a Patient called due to Gianfranco sensor and reader needing prior auth. Patient inquired if she should remove sensor until PA has been approved, patient instructed to remove sensor. In the mean time, patient is unsure if she has meter for finger stick glucose checks. She is going to check at home and if she does not find one she will notify Dr. Harrison via [employer]. Please review and advise. Thank you, Latasha Peng RN documented in this encounterVeterans Health Administration06-28-2022 History of Present illness Narrative* Randal Randall, PT - 05/10/2022 2:19 PM EDT Episode Visit Count: 6 Therapist That Will Oversee The Plan Of Care: Randal Randall Start of Care Date: 03/18/22 Onset Date: 06/22/21 Plan of Care Certification Date: 05/10/22 Next Certification Due Date: 06/24/22 REHABILITATION AND SPORTS THERAPY PHYSICAL THERAPY PROGRESS REPORT PLAN OF CARE UPDATE: Assessment: Sid Lezama demonstrates improvements in physical activities, reaching overhead and use hand with arm at shoulder level. She hasprogressed toward goals. Patient continues to presentwith impairments in strength and tissue tenderness that interfere with physical activities;heavy exertion . Current prognosis is Good due to: current objective clinical presentation;positive past response to therapy . Patient progressing well but notes increased RIGHT shoulder soreness today after trying to push her dog off the bed. Patient with decreased performance with MMT due to RIGHT shoulder soreness. She will benefit from continued skilled therapy services to meet the updated goals for this plan of care as noted below. Right Shoulder Goals for Episode of Care: created on 03/18/22 through 05/18/22 [place] in home exercise program. (MET) Perform ADLs with less than 2/10 right shoulder pain. (MET) Increase ROM of right shoulder IR/Ext AROM behind back to thumb at T9 without increased pain. (progressing toward goal) Increased strength of right biceps curl 8# 10 x. (MET) Right shoulder ER and IR strength 4+/5 MMT without increased pain. (MET) Right shoulder flexion strength 4+/5 MMT without increased pain. (progressing toward goal) Pt will report right biceps doesn't cramp when tossing wood into pile for preparing wood to heat home. (MET) Patient Goals: decrease shoulder pain, improve ROM and strength (MET) Planned Interventions, Frequency, and Duration: 1x every other week, 5 weeks Total Number of Visits Planned: 3 Patient to be seen for Therapeutic exercise (91069);Therapeutic activities (38041);Self-snf management (71501);Patient/Family/Caregiver Education PLAN FOR NEXT VISIT: continue with functional lifting activities; progress HEP to include counter top push ups SUBJECTIVE: Patient Reason for Visit: Pt notes muscle pain in R shoulder. Pt notes that she tried to push her 51 pound dog off of her and it caused some lasting discomfort.. Functional Limitations: physical activities;heavy exertion Pain: Pain Pain Level: 3 Pain Location: Upper Arm - Right Description: Sore Frequency: With movement PROMIS Scales Higher is Better 06/18/2021 06/23/2021 02/08/2022 Phys Func - Score 29 (severe dysfunction) - 33 (moderate dysfunction) Phys Func - Percentile 2 % - 4 % Social Roles - Score - 37 (moderate dysfunction) 45 (within normal limits) Social Role - Percentile - 10 % 31 % GH Physical - Score - - 39.8 (Fair) GH Physical - Percentile - - 15 % GH Mental - Score - - 41.1 (Good) GH Mental - Percentile - - 19 % Self-Eff Symptom - Score - 34 (Low) 54 (Average) Self-Eff Symptom - Percentile - 5 % 66 % T-scores: mean of general population = 50. 5 points is clinically meaningfully difference Percentiles provide an indication of how the patient's score ranks in relation to the general population. Higher percentile rankings indicate better function/quality of life. 50th percentile is the average of the general population and indicates half of respondents had a worse score. Lower is Better 11/10/2020 06/18/2021 02/08/2022 Fatigue - Score 67 (moderate) 74 (severe) 64 (moderate) Fatigue - Percentile 4 % 1 % 8 % T-scores: mean of general population = 50. 5 points is clinically meaningfully difference Percentiles provide an indication of how the patient's score ranks in relation to the general population. Higher percentile rankings indicate better function/quality of life. 50th percentile is the average of the general population and indicates half of respondents had a worse score. OBJECTIVE MEASURES WITH LEVEL OF FUNCTION: UE AROM R Shoulder Extension: 75 Degrees R Shoulder Flex: 165 Degrees R Shoulder ABduction: 175 Degrees R Shoulder Internal Rotation (Functional): T12 R Shoulder External Rotation (Functional): T3 L Shoulder Extension: 70 Degrees L Shoulder Flex: 165 Degrees L Shoulder ABduction: 170 Degrees L Shoulder Internal Rotation (Functional): T8 L Shoulder External Rotation (Functional): T3 UE and Cervical Strength R Shoulder Extension: 5/5 R Shoulder Flexion: 4/5 (pain) R Shoulder Abduction (C5): 3+/5 (sharper pain) R Shoulder Internal Rotation: 5/5 R Shoulder External Rotation: 5/5 R Elbow Extension (C7): 5/5 R Elbow Flexion (C6): 5/5 L Shoulder Extension: 5/5 L Shoulder Flexion: 5/5 L Shoulder Abduction (C5): 5/5 L Shoulder Internal Rotation: 5/5 L Shoulder External Rotation: 5/5 L Elbow Extension (C7): 5/5 L Elbow Flexion (C6): 5/5 TREATMENT: Therapeutic Exercise: 1: SciFit L3 x 3 minutes forward 3 minutes retro seat 7 2: doorway R shoulder flexion 10x 3: recheck as above 4: reviewed current HEP and emphasized scapular setting with strengthening ther ex 5: discussed use of physioball with HEP and recommended starting below shoulder level ther ex to learn stabilization on the ball before moving to overhead lifting Skilled Intervention: Patient was educated in proper exercise technique and purpose for exercises. Skilled judgment was provided in selection of appropriate interventions. Correct performance of therapeutic exercises was facilitated with verbal cuing. Patient education as noted. Billing Therapeutic Exercise Treatment Minutes: 30 Total Treatment Time Minutes (timed/untimed): 35 Randal Randall PT documented in this encounterVeterans Health Administration06-28-2022 Instructions* Patient Instructions* Panda Harrison MD - 05/10/2022 12:31 PM EDT Increase Ozempic to 2 mg WEEKLY Report severe stomach pain, vomiting Reduce Lantus to 50 units. Report to me if getting glucose readings mostly in the 90s so i can reduce Lantus further When our nurses contact you for Prolia schedule, please do your vitamin D lab order Ali - our share code is [phone] Appointment with our pharmacist in 2-4 weeks for CGM download and interpretation Me in 6-7 mo Thank you for seeing us today. Please call my office at [phone] [phone] if you do not receive a note from me regarding your lab orimaging results by the timelines below: - 1 week via [employer] if you use a [facility] facility; 2 weeks via [employer] if you use an outside facility - 2 weeks by phone or by mail if you do not use [employer] Please do not hesitate to contact us sooner than the recommended follow-up if with issues/concerns. Please see your primary care provider and other specialists for other issues not explained by the condition you are seeing me for. Sophy Harrison MD, MPH Office [phone] Appointments [phone] or by using [employer] [facility] number: [phone] documented in this encounterVeterans Health Administration06-28-2022 History of Present illness Narrative* Panda Harrison MD - 05/10/2022 11:20 AM EDT HISTORY Mrs Sid Lezama is a 46 year old female here for follow-up of Type 2 DM Dyslipidemia and fatty liver- elevated liver enzymes Steroid use Low bone mass DIABETES Diagnosed DM in 2006, was having reactive hypoglycemia History of diabetes medications: Metformin started first Januvia started 2011 Glyburide caused lows 50s Lantus Januvia 50 mg daily - stopped when Trulicity started Nov 2018 Trulicity 1.5 mg, mild abd discomfort after eating Farxiga 5 mg - getting yeast infections, stopped Current diabetes medications: Lantus - 56 units at bedtime Metformin 1000 mg BID Ozempic 1 mg weekly no n/v- every Others: Was on atorvastatin, stopped, wanting to go holistic Red yeast rice - stopped Still steroid injections to neck (C7) and back L4, L5, S1, S5, last one March 2022 Context:retinal hole, +neuropathy from cervical problems Average blood glucose control: brought meter? yes pre-breakfast 101-112 pre-lunch pre-dinner bedtime Hyperglycemia: 174 highest Hypoglycemia: 87- Sat am, lowest it has been Change in meals and exercise: Denies any changes in lifestyle Will see slope hoist operator (Jul) and saw eye doctor this year Elevation high performance protein shake -170 anali, 4 g carb (1 g sugar), 30 g protein STEROIDS/BONE Has ileostomy bag Has Crohn's - no steroids for this, has ileostomy Steroid intake see above under diabetes Tooth grinding, TMJ Tight when chewing steak Otherwise no jaw pain Jaw gets tired from chewing BMD done in 04/2017 showed lowest Z score -2.3 BMD in 2020 Pertinent decrease (though different machine? 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0 (H) Bilirubin, Total 0.2 - 1.3 mg/dL 0.3 Alkaline Phosphatase 34 - 123 U/L 107 AST 13 - 35 U/L 31 ALT 7 - 38 U/L 30 Glucose 74 - 99 mg/dL 77 BUN 7 - 21 mg/dL 15 Creatinine 0.58 - 0.96 mg/dL 0.59 Sodium 136 - 144 mmol/L 139 Potassium 3.7 - 5.1 mmol/L 4.2 Chloride 97 - 105 mmol/L 107 (H) CO2 22 - 30 mmol/L 16 (L) Anion Gap 9 - 18 mmol/L 16 eGFR >=60 mL/min/1.73m 112 Hemoglobin A1C (POCT) 4.2 - 5.6 % 5.8 Vitamin D 25 Hydroxy 31.0 - 80.0 ng/mL 58.5 Component Latest Ref Rng & Units 04/19/2022 Vitamin B12 232-1,245 pg/mL >2,000 (H) Component Latest Ref Rng & Units 01/04/2022 04/19/2022 Protein, Total 6.3 - 8.0 g/dL 7.3 Albumin 3.9 - 4.9 g/dL 4.5 Calcium 8.5 - 10.2 mg/dL 11.0 (H) Bilirubin, Total 0.2 - 1.3 mg/dL 0.3 Alkaline Phosphatase 34 - 123 U/L 107 AST 13 - 35 U/L 31 ALT 7 - 38 U/L 30 Glucose 74 - 99 mg/dL 77 BUN 7 - 21 mg/dL 15 Creatinine 0.58 - 0.96 mg/dL 0.59 Sodium 136 - 144 mmol/L 139 Potassium 3.7 - 5.1 mmol/L 4.2 Chloride 97 - 105 mmol/L 107 (H) CO2 22 - 30 mmol/L 16 (L) Anion Gap 9 - 18 mmol/L 16 eGFR >=60 mL/min/1.73m 112 Vitamin D 25 Hydroxy 31.0 - 80.0 ng/mL 105.0 (H) IMAGING REVIEWED: Bone density 2020 LUMBAR SPINE: The bone mineral density from L1 through L4 is 0.846 grams per square centimeter which yields a T-score of -1.8. The bone mineral density previously measured 0.954 g/sq cm. LEFT HIP: The bone mineral density of the total region of the hip is 0.894 grams per square centimeter which yields a T-score of -0.4. The bone mineral density previously measured 0.909 g/sq cm. LEFT FEMORAL NECK: The bone mineral density of the femoral neck is 0.635 grams per square centimeter which yields a T-score of -1.9. The bone mineral density previously measured 0.827 g/sq cm. 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 Mc, [facility] Type II or unspecified type diabetes mellitus without mention of complication, not stated as uncontrolled Ureterolithiasis 07/18/2019 PAST SURGICAL HISTORY Procedure Laterality Date ADENOIDECTOMY PRIMARY <AGE 11 1986 Adenoidectomy ARTHROSCOPY KNEE DIAGNOSTIC W/WO SYNOVIAL BX SPX 1989 [facility], [facility]/CELL WASHG SPX January 2007 Bronchoscopy EPIDURAL 2011 multiple ones done by Dr. Beckett PAST SURGICAL HISTORY OF 06/2000 ILEOSTOMY/COLECTOMY PAST SURGICAL HISTORY OF 1993 CRYOCAUTERY/ MILD DYSPLASIA PAST SURGICAL HISTORY OF March 2006 Abdominal abscess with anal fistula PRCTECT COMPL W/STOT/TOT COLCT W/VENEER JOINER BXS 2006 AP endoanal proctectomy SHOULDER ARTHROSCOPY/SURGERY Left 05/06/2020 Rotator cuff debridement, subacromial decompression/arthroplasty TONSILLECTOMY PRIMARY/SECONDARY <AGE 11 1986 Tonsillectomy Social History Tobacco Use Smoking status: Former Smoker Packs/day: 1.00 Years: 16.00 Pack years: 16.00 Types: Cigarettes Quit date: 12/04/2006 Years since quittin.4 Smokeless tobacco: Never Used Vaping Use Vaping Use: Never used Substance Use Topics Alcohol use: No Drug use: No FAMILY HISTORY Problem Relation Age of Onset Alcohol/Drug Mother Hypertension Mother COPD other (vascular disease) Mother other (sleep apnea) Mother other (heart murmur) Mother Alcohol/Drug Father Cancer Father liver Asthma Brother Hypertension Daughter Diabetes Maternal Grandmother Stroke Maternal Grandmother Heart Maternal Grandmother Emphysema Paternal Grandmother Diabetes Paternal Grandfather Macular Degen Paternal Grandfather Anesthesia Problems No Family History Current Outpatient Medications Medication Sig pregabalin (LYRICA) 150 mg capsule Take 1 capsule by mouth three times daily for 180 days. Insulin Lynch, Disposable, (DROPLET PEN NEEDLE) 32 gauge x 5/32 INJECT ONE TIME DAILY Norethindrone, Contraceptive, 0.35 mg tablet TAKE 1 TABLET EVERY DAY clobetasol (TEMOVATE) 0.05 % cream Apply to affected area twice daily. Sparingly to feet, knees, palms. rizatriptan (MAXALT VENEER JOINER) 10 mg disintegrating tablet Take 1 tablet by mouth as needed for migraine headache (see administration instructions). May repeat in 2 hours if needed Lancets (ACCU-CHEK SOFTCLIX LANCETS) lancets TEST BLOOD SUGAR TWICE DAILY (TYPE 2 DIABETES) OZEMPIC 1 mg/dose (4 mg/3 mL) pen injector INJECT 1 MG SUBCUTANEOUSLY ONE TIME A WEEK. LANTUS SOLOSTAR U-100 INSULIN 100 unit/mL (3 mL) INJECT 60 UNITS SUBCUTANEOUSLY DAILY AT BEDTIME. (Patient taking differently: Inject 56 Units subcutaneously daily at bedtime. ) metFORMIN (GLUCOPHAGE) 1,000 mg tablet TAKE 1 TABLET TWICE DAILY albuterol HFA (PROVENTIL HFA, VENTOLIN HFA) 90 mcg/actuation inhaler Inhale 2 Puffs as instructed every 4 hours as needed for wheezing/shortness of breath. blood sugar diagnostic (ACCU-CHEK GUIDE TEST STRIPS) test strip TEST BLOOD SUGAR TWICE DAILY (TYPE 2 DIABETES) vits62/FA/om3/dha/epa ( GUMMY ORAL) Take 2 Doses by mouth once daily. fluticasone (FLONASE) 50 mcg/actuation nasal spray Use 2 Sprays in each nostril once daily. Magnesium Oxide 500 mg cap Take 1 capsule by mouth twice daily. Blood-Glucose Meter (ACCU-CHEK DIANNE) Test blood sugar(s) 2 times daily. Dx: Type 2 DM - Controlled E11.9 Insulin: No, Accu-check brand covered by insurance Ascorbic Acid (VITAMIN C) 500 mg chew Take 1,000 mg by mouth once daily. With rosehips elderberry fruit (ELDERBERRY ORAL) Take by mouth. famotidine (PEPCID) 40 mg tablet Take 1 tablet by mouth twice daily. cetirizine (ZYRTEC) 10 mg tablet Take 1 tablet by mouth once daily. mecobalamin, vitamin B12, 5,000 mcg ODT Take 1 tablet by mouth once daily. Biotin 10,000 mcg cap Take 1 capsule by mouth twice daily. Cholecalciferol, Vitamin D3, (VITAMIN D-3) 50 mcg (2,000 unit) cap Take 1 capsule by mouth twice daily. acidophilus-pectin, citrus (ACIDOPHILUS PROBIOTIC) 100 million cell-10 mg cap Take 1 cap daily COMPOUNDED PRESCRIPTION 1. V44.2 Ileostomy status ([facility]) (primary diagnosis) 2. 555.1 Regional enteritis of large intestine ([facility]) Ileostomy Supplies. 1. Pouches, 2. Planges, 3. Felipe seals, 4. Stoma adhesive, 5. Stoma powder, 6. Skin preps, 7. Adhesive remover wipes. Dispense 1 year supplies. tizanidine (ZANAFLEX) 4 mg ORAL tablet Take by mouth. . Takes 1 tablet at bedtime. No current facility-administered medications for this visit. ALLERGIES Allergen Reactions Azithromycin Unknown thinks a rash Dilaudid [Hydromorp* Swelling migraines Levemir [Insulin De* Other: See Comments Urine turned dark and smelly Methadone Swelling migraine Morphine Swelling migraines Remicade [Inflixima* Intolerance, Rash broke out in blisters with the 6th dose. Ultram [Tramadol Hc* Swelling migraines ASSESSMENT/PLAN Type 2 diabetes, hyperglycemia needing several medications Dyslipidemia Fatty liver - since 17 y/o Chronic intermittent steroid use w cushingoid features (improved) Bone loss, high calcium (off calcium supplement) ? hyperparathyroidism CGM Freestyle Gianfranco 2 inserted today but her smart phone does not support it so sent script also for reader Script also sent Continue metformin Increase Ozempic to 2 mg WEEKLY Report severe stomach pain, vomiting Reduce Lantus to 50 units. Report to me if getting glucose readings mostly in the 90s so i can reduce Lantus further Ali - our share code is [id number] Diabetes health maintenance record reviewed. 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 [place] Vitamin B12 high, was taking supplement with it at the time of lab draw, she stopped taking it Continue vitamin D but will recheck later on Give calcium-rich food list past visit Might be hyperparathyroidism Hold off on Prolia, will get 24 hour urine (phone call to her after visit) Discussed surgery as option Labs/Imaging/Consults/Scripts (E11.65, Z79.4) Type 2 diabetes mellitus with hyperglycemia, with long-term current use of insulin ([facility]) (primary encounter diagnosis) Comment: Plan: semaglutide (OZEMPIC) 2 mg/dose (8 mg/3 mL) pen injector, Lancets (ACCU-CHEK FASTCLIX LANCET DRUM) lancets, insulin glargine (LANTUS SOLOSTAR U-100 INSULIN) 100 unit/mL (3 mL), flash glucose sensor (FREESTYLE GIANFRANCO 2 SENSOR) kit, DM CGM-DIAGNOSTIC (M85.80) Bone loss Comment: Plan: VITAMIN D 25 HYDROXY (E83.52) Hypercalcemia Comment: Plan: CALCIUM 24 HR URINE, CREATININE 24 HR UR Contact us if has not heard about lab results after a week or two of completion. Follow-up: Appointment with our pharmacist in 2-4 weeks for CGM download and interpretation Me in 6-7 mo Contact us sooner than recommended follow-up if with issues/concerns. Follow-up with primary care provider and other specialists for issues not explained by the condition that the patient is seeing me for. Sophy Harrison MD, MPH May 10, 2022 4:39 PM documented in this encounterVeterans Health Administration06-21-2022 History of Present illness Narrative* Gricelda Jolley, B[facility] [employer]ISTANCE - 05/03/2022 9:29 AM EDT Episode Visit Count: 5 Therapist That Will Oversee The Plan Of Care: Randal Randall Start of Care Date: 03/18/22 Onset Date: 06/22/21 Plan of Care Certification Date: 03/18/22 Next Certification Due Date: 05/18/22 Patient Identified by Name and Date of : Yes REHABILITATION AND SPORTS THERAPY PHYSICAL THERAPY TREATMENT NOTE ASSESSMENT: Sid Lezama tolerated the session with expected muscle soreness. She demonstrateddifficulty with supinated bicep curl and improvements in active right shoulder flexion and abduction. Patient notes Stiffness in elbow and fatigue at end of session. The patient will continue to benefit from ongoing skilled physical therapy to progress toward set goals. PLAN FOR NEXT VISIT: continue with R UE strengthening and endurance activities SUBJECTIVE: Patient Reason for Visit: Patient reports that she overdid it yesterday,helping spouse with 3 point hitch on tractor. Pain with driving and reaching up high. Pain has ranged from 2-3/10 since last session. Pain: Pain Pain Level: 2 Pain Location: Upper Arm - Right Description: Aching Frequency: With movement Post Treatment Pain Post Treatment Pain Level: No Change Post Treatment Pain Location: Upper Arm - Right Post Treatment Pain Description: (warm) OBJECTIVE MEASURES WITH LEVEL OF FUNCTION: UE AROM R Shoulder Flex: 170 Degrees R Shoulder ABduction: 174 Degrees TREATMENT: Therapeutic Exercise: 1: SciFit, seat 7, Level 4.0 , 6 minutes, change at half 2: doorway T B pectoral stretch 3x20 seconds 3: wall walk into flexion 5 x 5 seconds 4: [place] R push 6 pounds 15x arm 6 5: [place] R rowing 11 pounds 15x arm 6 7: standing 5 pound dumbell bicep curl in neutral and supinated 15x 8: standing B shoulder abd and flexion x10-15 reps in front of mirror for visual feedback 2 pound dumbell 10: BOING into flexion and abduction 3 x 15 seconds Skilled Intervention: Patient was educated in proper exercise technique and purpose for exercises. Skilled judgment was provided in selection of appropriate interventions. Correct performance of therapeutic exercises was facilitated with verbal and visual cuing. Manual Therapy: 1: supine inferior and posterior glides 2: supine PROM R UE flexion, abd, IR and ER Skilled Intervention: Manual skills to improve joint mobility, ROM, and decrease pain. Utilized anatomy knowledge of the therapist, and assessment of patient's response to intervention. Therapeutic Activity: 1: 8 # coreball diagonals x 15 each 2: 8# core ball curl and press x 10 3: 20 # crate lift, fllor to 37 x 5 Skilled Intervention: Instructed on proper lifting and carrying techniques with importance of core activation. Educated on proper/safe technique for activities performed today. Activity progression based on professional judgment. Billing Therapeutic Exercise Treatment Minutes: 25 Manual TherapyTreatment Minutes: 13 Therapeutic Activity Treatment Minutes: 10 Total Treatment Time Minutes (timed/untimed): 48 Gricelda Jolley PTA documented in this encounterVeterans Health Administration06-17-2022 History of Present illness Narrative* Randal Randall PT - 04/29/2022 8:16 AM EDT Episode Visit Count: 4 Therapist That Will Oversee The Plan Of Care: Randal Randall Start of Care Date: 03/18/22 Onset Date: 06/22/21 Plan of Care Certification Date: 03/18/22 Next Certification Due Date: 05/18/22 REHABILITATION AND SPORTS THERAPY PHYSICAL THERAPY TREATMENT NOTE ASSESSMENT: Sid Lezama tolerated the session with fatigue. She demonstrated difficulty with PROM RIGHT shoulder abduction but felt better after performing inferior glides. Patient fatigued with strengthening there ex. The patient will continue to benefit from ongoing skilled physical therapyto progress toward set goals. 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 Pain: Pain Pain Level: 2 Pain Location: Upper Arm - Right Description: Aching Frequency: Intermittent Post Treatment Pain Post Treatment Pain Level: No Change OBJECTIVE MEASURES WITH LEVEL OF FUNCTION: TREATMENT: Therapeutic Exercise: 1: UBE 60 rpm x 3 minutes forward, 3 minutes retro 2: doorway R shoulder flexion 5x10 seconds 3: [place] R rowing 10 pounds 15x arm 6 4: Deni R push 5 pounds 15x arm 6 5: [place] R D1E 5 pounds 15x arm A 6: [place] R D1F 2 pounds 15x arm 4 7: standing 5 pound dumbell bicep curl in neutral and supinated 10x 8: standing B shoulder abd and flexion 10x in front of mirror for visual feedback 2 pound dumbell 9: 5 pound dumbell chest press in neutral and 90 degree shoulder abd 10x Skilled Intervention: Patient was educated in proper exercise technique and purpose for exercises. Skilled judgment was provided in selection of appropriate interventions. Correct performance of therapeutic exercises was facilitated with verbal cuing. Discussed with patient participation in silver sneakers at [employer] with use of dumbells versus machines Manual Therapy: 1: supine inferior and posterior glides 2: supine PROM R UE flexion, abd, IR and ER Skilled Intervention: Manual skills to improve joint mobility, ROM, and decrease pain. Utilized anatomy knowledge of the therapist, and assessment of patient's response to intervention. Therapeutic Activity: 1: 6 pound mediball curl and press 10x 2: 6 pound mediball R/L diagonal 10x Skilled Intervention: Educated on proper/safe technique for activities performed today. Activity progression based on professional judgment. Billing Therapeutic Exercise Treatment Minutes: 25 Manual TherapyTreatment Minutes: 10 Therapeutic Activity Treatment Minutes: 5 Total Treatment Time Minutes (timed/untimed): 45 Randal Randall PT documented in this encounterVeterans Health Administration06-15-2022 Miscellaneous Notes* Telephone Encounter - Aury Powers APRN.CNP - 04/27/2022 10:39 AM EDT [facility] All [facility] have been APPROPRIATELY filled. No suspiciousactivity was identified. 04/27/2022 by Aury Powers APRN.CNP * Telephone Encounter - Samir Whitlock Ma - 04/27/2022 8:09 AM EDT ONUR: 01/27/2022 Last refill: 10/20/2021 QTY: 270 Refills: 1 Patient's request for medication is as follows: Pending Prescriptions Disp Refills PREGABALIN 150 MG CAPSULE 270 capsule 1 Sig: Take 1 capsule by mouth three times daily for 180 days. SERGIO Class: C-V JEFFERSON: No Please approve the above prescription(s) to electronically send to pharmacy. Samir Whitlock Ma documented in this encounterVeterans Health Administration06-10-2022 History of Present illness Narrative* Randal Randall, PT - 04/22/2022 8:05 AM EDT Episode Visit Count: 3 Therapist That Will Oversee The Plan Of Care: Randal Randall Start of Care Date: 03/18/22 Onset Date: 06/22/21 Plan of Care Certification Date: 03/18/22 Next Certification Due Date: 05/18/22 REHABILITATION AND SPORTS THERAPY PHYSICAL THERAPY TREATMENT NOTE ASSESSMENT: Sid Lezama tolerated the session with fatigue. She demonstrated difficulty with strengthening there ex due to upper extremity weakness. Patient noted end range soreness with PROM abd. The patient will continue to benefit from ongoing skilled physical therapy to progress toward set goals. PLAN FOR NEXT VISIT: continue with R UE strengthening and manual to improve end range of motion tolerance SUBJECTIVE: Patient Reason for Visit: Pt notes that she is having some L forearm and hand pain after having MRI a couple of weeks ago. Pt notes compliance with HEP. Pt notes that R shoulder pain increases with loading activities. Pain: Pain Pain Level: 1 Pain Location: Shoulder - Right Description: Aching Frequency: Intermittent Post Treatment Pain Post Treatment Pain Level: No Change OBJECTIVE MEASURES WITH LEVEL OF FUNCTION: end range pain with PROM abduction TREATMENT: Therapeutic Exercise: 1: Scifit L3 x 3 minutes forward, 3 minutes retro 2: doorway T B pectoral stretch 3x20 seconds 3: supine 5 pound dumbell chest press in neutral and 90 degree abd 15x 4: supine R shoulder flexion with scapular setting 15x 3 pound dumbell 5: L sidelying R shoulder abd with scapular [id number] 3 pound dumbell 6: L sidelying R shoulder ER with towel roll 10x 3 pound dumbell 7: standing 5 pound dumbell bicep curl in neutral and supinated 10x 8: B shoulder shrugs 15x 5 pound dumbell 9: *seated caudal glide 5x10 seconds Skilled Intervention: Patient was educated in proper exercise technique and purpose for exercises. Reviewed and educated patient on additions/changes for home exercise program as above (*). Skilled judgment was provided in selection of appropriate interventions. Provided written instruction for home exercise program to facilitate proper performance and compliance. Correct performance of therapeutic exercises was facilitated with verbal cuing. Manual Therapy: 1: supine inferior and posterior glides 2: supine PROM R UE flexion, abd, IR and ER Skilled Intervention: Manual skills to improve joint mobility, ROM, and decrease pain. Utilized anatomy knowledge of the therapist, and assessment of patient's response to intervention. Billing Therapeutic Exercise Treatment Minutes: 30 Manual TherapyTreatment Minutes: 15 Total Treatment Time Minutes (timed/untimed): 45 Randal Randall PT documented in this encounterVeterans Health Administration06-09-2022 Miscellaneous Notes* Telephone Encounter - Caity Morton RN - 04/21/2022 2:29 PM EDT Images from the original note were not included. B12 very high Received: Yesterday Joel Dykes MD sent to Caity Morton RN Can you let her know that her b12 level is very high. Although this isn't toxic, she should consider spacing out her supplemtation Contacted pt and notified of the above. Understanding verbalized. Reports she will notify her holistic provider to advise on B12 supplementadjustment. Caity Morton RN April 21, 2022 2:31 PM documented in this encounterVeterans Health Administration06-07-2022 History of Present illness Narrative* Albina Bhatti RN - 04/19/2022 11:18 AM EDT ET/WOCN Nursing Consult Topic: ET/WOCN Consultation Note ET Outcome: Patient seen in the outpatient clinic as an add on from Dr. Dykes's office for possible ucler formation. Pictures are in chart under Get Images.Patient states for a week she has noticed at pink area underneath where tape collar adheres to abdomen. This area tends to be itching and moist especially during warm weather. This same color skin discoloration is also in patient's skin folds of pannus. Patient advised no ulcer seen, but looks more fungal. Patient encouraged to purchase OTC antifungal powder. This was applied at this visit. Patient has mucosal implants surrounding stoma. True stoma size including the implants is 1 1/2. However patient using 1 aperture opening. She denies any pouch leakage. Decided to keep patient in current pouching system. ET's Next Scheduled Visit: yearly/ as needed Stoma Type: End ileostomy Diameter: 1 1/2 (including mucosa implants) Location: RLQ Protrusion: Protrudes slightly Mucosal condition and color: Red and moist Mucocutaneous junction Intact Peristomal Skin: Other: small area of pink b/t 3-7 o'clock area approximally 2 outside of peristomal contour; otherwise skin is intact Location of Skin Impairment: As stated above Peristomal contour: slightly Concave Supportive Tissue: Semisoft Character of output: Liquid arroyo effleunt Emptying frequency per day: 6-7x Current pouching system: [employer]ec SurFit Natura Durahesive Convex-IT 1, Felipe Barrier Ring, OpaqueDrainable Pouch w/clip Current wearing time: 5 days. Barrier Ring swelled and starting to wash away Recommendations: Skin: Dust skin with antifungal and stomahesive powder followed by 3M [employer] Skin prep Pouching System: Same system applied Wear Time: 3-4 days is the goal Midline Abdominal Incision: Healed scar Comment: N/A Time Increment: 45 minutes Albina Bhatti RN, BSN,CWOCN documented in this encounterVeterans Health Administration06-07-2022 History of Present illness Narrative* Joel Dykes MD - 04/19/2022 9:00 AM EDT NAME: Sid Lezama [facility] NO: [id number] REASON FOR VISIT Sid Lezama is a 46 year old female who is scheduled for a consult at the request of Jl. Patient presents with: New IBD PRESENTING COMPLAINT IBD History Template Diagnosis Crohn's Disease: Date of diagnosis (year): Phenotype Location affected: ileum colon Behavior: inflammatory Perianal disease: yes Prior Medications/Reason for Switch Surgery: Yes: Total Colectomy Thiopurines: No Methotrexate: No Biologics: Yes - infliximab, reason for switch: ineffective (developed blisters, after 7 doses, after fistulizing complications) Small molecules: No Current Medications None Prior Complications and Extraintestinal Manifestations Clostridium difficile: no Thrombosis: no Ocular (Uveitis, Episcleritis): no Dermatologic (Pyoderma gangrenosum, Erythema nodosum): no Arthropathy/Arthralgia: no Oral ulcers: no Primary Sclerosing Cholangitis: no Other: no Current Clinical Symptoms Empties Ostomy: 4-6 Changes the Ba days Output: Water, yellow, green No black or red Pouching: Skin Rash, erytematous Two Piece Take [employer] Mintran Betachol Enzocore Surgeries - 06/16/2000 Colectomy and loop end-ileostomy Surgeries - 12/05/2006 Abdomina Endo Anal Proctectomy Pathology 08/05/1999 A) TERMINAL ILEUM, BIOPSY - NO PATHOLOGIC ABNORMALITY. B) COLON, ASCENDING, BIOPSY - MILD ACTIVE COLITIS. SEE COMMENT. C) COLON, TRANSVERSE, BIOPSY - MILD ACTIVE COLITIS. SEE COMMENT. D) COLON, DESCENDING, BIOPSY - MILD ACTIVE COLITIS. SEE COMMENT. E) RECTOSIGMOID, BIOPSY - MILD ACTIVE COLITIS. SEE COMMENT. COMMENT - Sections from the ascending colon to the rectosigmoid show a diffuse mild active colitis manifested predominantly by cryptitis and rare crypt abscess formation. There is expansion of the lamina propria by lymphoplasmacytic infiltrates. The rectosigmoid biopsies also contain well formed granulomas within the lamina propria. While the diffuse nature of this process involving all biopsied segments of the colon is most commonly seen with ulcerative colitis, the finding of well defined granulomas within the tissue is strongly suggestive of Crohn's colitis. Clinical and endoscopic findings as well as future biopsies may help to clarify the nature of this colitis. There is no evidence of dysplasia or malignancy. 06/14/2000 - FINAL DIAGNOSIS: 1. COLON, EXCISION - ACTIVE CROHN'S DISEASE. Comment: Fissuring ulcers, transmural chronic inflammation, and numerous non-necrotizing granulomas are present, quite consistent with active Crohn's disease. 2. APPENDIX, EXCISION - NO PATHOLOGIC CHANGE. 3. MESENTERIC LYMPH NODES, EXCISION - NO PATHOLOGIC CHANGE. TWB/jbh/06/19/2000 12/05/2006 FINAL DIAGNOSIS RECTUM, EXCISION - CHRONIC ACTIVE COLITIS, CONSISTENT WITH DIVERSION COLITIS. - FIVE LYMPH NODES, NEGATIVE FOR MALIGNANCY. CTE Patient-Entered Data PROMIS Global Health - (T-Scores - the mean of general population = 50. Five points is a clinicallymeaningful difference.) 03/18/2021 04/23/2021 02/08/2022 Physical T-Score 47.7 32.4 39.8 Mental T-Score 50.8 41.1 41.1 PROMIS Global Health Scale 03/18/2021 04/23/2021 02/08/2022 Physical Health Percentile 41 % 4 % 15 % Mental Health Percentile 53 % 19 % 19 % PAST SURGICAL HISTORY Procedure Laterality Date ADENOIDECTOMY PRIMARY <AGE 11 1986 Adenoidectomy ARTHROSCOPY KNEE DIAGNOSTIC W/WO SYNOVIAL BX SPX 1989 Arthroscopy, knee, left BRNCC INCL FLUOR GDNCE DX W/CELL WASHG SPX January 2007 Bronchoscopy EPIDURAL 2011 multiple ones done by Dr. 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 Mc, [facility] Type II or unspecified type diabetes mellitus without mention of complication, not stated as uncontrolled Ureterolithiasis 07/18/2019 Current Outpatient Medications Medication Sig Dispense Refill Norethindrone, Contraceptive, 0.35 mg tablet TAKE 1 TABLET EVERY DAY 84 tablet 3 clobetasol (TEMOVATE) 0.05 % cream Apply to affected area twice daily. Sparingly to feet, knees, palms. 60 g 1 rizatriptan (MAXALT VENEER JOINER) 10 mg disintegrating tablet Take 1 tablet by mouth as needed for migraine headache (see administration instructions). May repeat in 2 hours if needed 9 tablet 2 OZEMPIC 1 mg/dose (4 mg/3 mL) pen injector INJECT 1 MG SUBCUTANEOUSLY ONE TIME A WEEK. 9 Each 2 LANTUS SOLOSTAR U-100 INSULIN 100 unit/mL (3 mL) INJECT 60 UNITS SUBCUTANEOUSLY DAILY AT BEDTIME. (Patient taking differently: Inject 56 Units subcutaneously daily at bedtime. ) 60 mL 2 metFORMIN (GLUCOPHAGE) 1,000 mg tablet TAKE 1 TABLET TWICE DAILY 180 tablet 2 albuterol HFA (PROVENTIL HFA, VENTOLIN HFA) 90 mcg/actuation inhaler Inhale 2 Puffs as instructed every 4 hours as needed for wheezing/shortness of breath. 1 Each 1 pregabalin (LYRICA) 150 mg capsule Take 1 capsule by mouth three times daily for 180 days. 270 capsule 1 vits62/FA/om3/dha/epa ( GUMMY ORAL) Take 2 Doses by mouth once daily. Ascorbic Acid (VITAMIN C) 500 mg chew Take 1,000 mg by mouth once daily. With rosehips elderberry fruit (ELDERBERRY ORAL) Take by mouth. famotidine (PEPCID) 40 mg tablet Take 1 tablet by mouth twice daily. 180 tablet 3 cetirizine (ZYRTEC) 10 mg tablet Take 1 tablet by mouth once daily. 90 tablet 3 mecobalamin, vitamin B12, 5,000 mcg ODT Take 1 tablet by mouth once daily. Cholecalciferol, Vitamin D3, (VITAMIN D-3) 50 mcg (2,000 unit) cap Take 1 capsule by mouth twice daily. acidophilus-pectin, citrus (ACIDOPHILUS PROBIOTIC) 100 million cell-10 mg cap Take 1 cap daily 90 capsule 2 COMPOUNDED PRESCRIPTION 1. V44.2 Ileostomy status (HCC) (primary diagnosis) 2. 555.1 Regional enteritis of large intestine (HCC) Ileostomy Supplies. 1. Pouches, 2. Planges, 3. Felipe seals, 4. Stoma adhesive, 5. Stoma powder, 6. Skin preps, 7. Adhesive remover wipes. Dispense 1 year supplies. 20 bag 11 tizanidine (ZANAFLEX) 4 mg ORAL tablet Take by mouth. . Takes 1 tablet at bedtime. Lancets (ACCU-CHEK SOFTCLIX LANCETS) lancets TEST BLOOD SUGAR TWICE DAILY (TYPE 2 DIABETES) 200 Each 2 blood sugar diagnostic (ACCU-CHEK GUIDE TEST STRIPS) test strip TEST BLOOD SUGAR TWICE DAILY (TYPE 2 DIABETES) 200 Strip 2 fluticasone (FLONASE) 50 mcg/actuation nasal spray Use 2 Sprays in each nostril once daily. 1 Bottle 2 Magnesium Oxide 500 mg cap Take 1 capsule by mouth twice daily. Blood-Glucose Meter (ACCU-CHEK DIANNE) Test blood sugar(s) 2 times daily. Dx: Type 2 DM - Controlled E11.9 Insulin: No, Accu-check brand covered by insurance 1 Each 0 Insulin Lynch, Disposable, (DROPLET PEN NEEDLE) 32 gauge x 5/32 INJECT ONE TIME DAILY. E11.65 100 Each 0 Biotin 10,000 mcg cap Take 1 capsule by mouth twice daily. No current facility-administered medications for this visit. Azithromycin, Dilaudid [Hydromorphone (Bulk)], Levemir [Insulin Detemir], Methadone, Morphine, Remicade [Infliximab], and Ultram [Tramadol Hcl] Recent Labs: CBC: WBC (k/uL) Date Value 03/24/2022 7.35 03/04/2022 8.75 Hematocrit (%) Date Value 03/24/2022 48.5 (H) MCV (fL) Date Value 03/24/2022 89.0 Platelet Count (k/uL) Date Value 03/24/2022 273 Lymph% (%) Date Value 03/24/2022 35.5 Hepatic Function Panel: Albumin (g/dL) Date Value 03/24/2022 4.5 Bilirubin, Total (mg/dL) Date Value 03/24/2022 0.5 Bilirubin, Conjugated (mg/dL) Date Value 03/24/2022 <0.2 Alkaline Phosphatase (U/L) Date Value 03/24/2022 129 (H) AST (U/L) Date Value 03/24/2022 29 ALT (U/L) Date Value 03/24/2022 36 Protein, Total (g/dL) Date Value 03/24/2022 7.4 Social History Tobacco Use Smoking status: Former Smoker Packs/day: 1.00 Years: 16.00 Pack years: 16.00 Types: Cigarettes Quit date: 12/04/2006 Years since quittin.3 Smokeless tobacco: Never Used Vaping Use Vaping Use: Never used Substance Use Topics Alcohol use: No Drug use: No PERSONAL HABITS: Tobacco: No Alcohol: No PAST MEDICAL HISTORY Colon polyps:No Colon cancer: No Other cancer:No Radiation / Chemotherapy:No Crohn's disease / Ulcerative colitis:Yes High cholesterol or triglycerides:Yes Ulcers: Yes Gallstones:No Hepatitis / jaundice: No Heart Disease: No Lung Disease:No Liver problems:Yes Thyroid disease: no Kidney stones:yes Pancreatitis:No Diabetes:Yes Arthritis:Yes Rheumatic fever:No Gastrointestinal bleeding:No Depression or other mental illness:Yes Other personal illness: Situational deppression GI SPECIFIC ROS Difficulty swallowing / foods sticking in throat:No Heartburn:Yes Hoarseness:No Chronic cough:No Regurgitation:No Chest pain:No Filling up quickly at meals:Yes Loss of appetite:Yes Nausea:Yes Vomiting: No Abdominal pain:No Recent change in bowel movements: No Bloody or black, bowel movements:No Constipation: No Diarrhea: Yes Loss of control of bowel movements:No Night sweats, fever, chills: Yes Thought or memory problems: No Fluid in abdomen (ascites): No Prominent leg swelling: No Vomiting blood: No Recent change in weight:No ROS EyesNegative for vision changes, diplopia or epiphora. Ears, Mouth, nose, throat:No problems Cardiovascular: No Problems Respiratory: Negative for cough, wheezing and shortness of breath Gastrointestinal : No problems Genitourinary: Negative Musuloskeletal: Normal Integumentary: no rashes, lesions, or jaundice Neurological: No history of neurologic problems Endocrine: Negative for cold or heat intolerance, polyuria, polydipsia and goiter. Psychiatric: Cooperative and agreeable Allergic/ Immunologic: Negative All others negative FAMILY HISTORY Problem Relation Age of Onset Alcohol/Drug Mother Hypertension Mother COPD other (vascular disease) Mother other (sleep apnea) Mother other (heart murmur) Mother Alcohol/Drug Father Cancer Father liver Asthma Brother Hypertension Daughter Diabetes Maternal Grandmother Stroke Maternal Grandmother Heart Maternal Grandmother Emphysema Paternal Grandmother Diabetes Paternal Grandfather Macular Degen Paternal Grandfather Anesthesia Problems No Family History PHYSICAL EXAMINATION General Appearance: alert, oriented x 3, pleasant and in no acute distress Eyes: No icterus or conjunctival pallor.. Oropharynx: Lips, tongue, and oral mucosa normal. There is no thrush or oral ulcers. Lungs: breath sounds clear to auscultation bilaterally Heart: regular rate and rhythm, no murmurs or gallops. Abdomen: Not distended. Normal bowel sounds. Soft and non-tender. No masses or organomegaly.RLQ Ostomy, Skin breakdown in the lower aspect, likley intertrigous related Extremities: no cyanosis or edema. Skin: no rashes or lesions Lymph: No cervical, axillary, supraclavicular, or adenopathy. Assessment IMPRESSION Sid Lezama is a 46 y/o woman with a medical history of Crohn's disease s/p Total abdominal Colectomy (1999), followed by endo-anal proctectomy (2006), who presents for evaluation. Reports alsoa history of psoriasis and psoriatic arthritis, diabetes, NAFLD, chronic pain on opiates, migraines, allergic rhinitis. Recent CTe evaluation suggest no evidence of active disease. There is also evidence of inflammation. We will plan to confirm this with a stool test from the ostomy. And plan for an evaluation with ileoscopy later in the year, early next year. She is getting management for diabetes, as well as fatty liver disease. She reports follow up for psoriasis as well. She reports that she has been seen by her slate cutter, and reports that she hasbeen asked to consider adlimumab. Another option would be Ustekinumab, PLAN -We will plan to obtain blood testing today (nutrient lab) -We will also obtain stool testing -Overall, Ms. Lezama likely does not require medical therapy, she had fistulizing complication priorto her surgery in 2006 which merited the need for infliximab but has been on no therapies, and warranted no therapies since 2006. -We will refer to [facility] -Return in 8 months PATIENT IS OK TO BE CONTACTED BY IBD GI RESEARCH TEAM TO EXPLORE PARTICIPATION IN RESEARCH STUDIES Joel Dykes MD April 19, 2022 7:29 AM documented in this encounterVeterans Health Administration06-07-2022 Miscellaneous Notes* Telephone Encounter - Latasha Peng RN - 04/19/2022 8:38 AM EDT Requester: Pharmacy Patients last Endocrinology visit occurred 10/04/21. Follow-up evaluation has been established n/a. Pending Prescriptions Disp Refills PEN NEEDLE, DIABETIC 32 GAUGE X 100 Each 0 Sig: INJECT ONE TIME DAILY JEFFERSON: No If patient is due for an appointment please route to provider for refill consideration and also to the endo scheduling pool. PSS NOTE: Patient needs scheduled appointment Yes documented in this encounterVeterans Health Administration05-27-2022 History of Present illness Narrative* TEMITOPE Matthews - 04/08/2022 8:30 AM EDT Radiology Service Progress Note DATE OF SERVICE: April 08, 2022 TIME: 8:33 AM PATIENT IDENTITY VERIFICATION COMPLETED USING TWO (2) STANDARD IDENTIFIERS: Name and Date of confirmed by patient verbally and Name and Date of confirmed by identification band. FALL SCREENING: Has the patient had 2 falls in the last year or 1 fall with injury or currently using an Ambulatory Assistive Device (Walker, Cane, Wheelchair, Crutches, etc.)? No PATIENT GENDER DATA: Female. status: : No status: NO. PATIENT RELEVANT IMPLANT DATA REVIEWED: Not Applicable ALLERGIES: Reviewed and unchanged CONTRAST ALLERGY: NO. EXAM: CT -CONTRAST INDUCED NEPHROPATHY RISK FACTORS: Diabetic: Yes. Current medication(s): Metformin. Patient currently has insulin pump?: No. CREATININE: Creatinine Date Value Ref Range Status 03/24/2022 0.59 0.58 - 0.96 mg/dL Final 03/04/2022 0.62 0.58 - 0.96 mg/dL Final 12/21/2021 0.59 0.58 - 0.96 mg/dL Final Estimated Glomerular Filtration Rate Date Value Ref Range Status 03/24/2022 112 >=60 mL/min/1.73m Final Comment: Estimated Glomerular Filtration Rate (eGFR) is calculated using the 2020 CKD-EPI creatinine equation. This equation utilizes serum creatinine, sex, and age as parameters. The creatinine assay has traceable calibration to isotope dilution- mass spectrometry. Refer to KDIGO guidelines for clinical interpretation. In patients with unstable renal function, e.g. those with acute kidney injury, the eGFRmay not accurately reflect actual GFR. eGFR- Date Value Ref Range Status 12/21/2021 >60 Final P.O.C.T. RESULTS: POC done: Yes, See Lab Tab April 08, 2022 TREATMENT: N/A PERIPHERAL IV DATA: Ambulatory: A peripheral IV was started in the Left antecubital site with a Angio cath: 22 gauge. RADIOLOGY DEPARTMENT: CT; Exam(s) Completed: Abdomen/Pelvis SIGNATURE: TEMITOPE Matthews PATIENT NAME: Sid Lezama DATE: April 08, 2022 TIME: 8:33 AM INPATIENT PROGRESS NOTE SERVICE DATE: 04/08/2022 SERVICE TIME: 833 SIGNATURE: TEMITOPE Matthews PATIENT NAME: Sid Lezama DATE: April 08, 2022 TIME: 8:33 AM documented in this encounterVeterans Health Administration05-26-2022 History of Present illness Narrative* Sánchez Bedolla PT, DPT - 04/07/2022 11:15 AM EDT Episode Visit Count: 2 Therapist That Will Oversee The Plan Of Care: Sánchez Bedolla Start of Care Date: 03/18/22 Onset Date: 06/22/21 Plan of Care Certification Date: 03/18/22 Next Certification Due Date: 05/18/22 REHABILITATION AND SPORTS THERAPY PHYSICAL THERAPY TREATMENT NOTE ASSESSMENT: Sid Lezama presents with right shoulder pain chronic, history shoulder arthroscopy June 2021. Pt has pec tightness, shoulder/scap weakness and biceps weakness. Decreased weight with biceps curls and shoulder flexion due to weakness/pain. The patient will continue to benefit from ongoing skilled physical therapy to progress toward set goals. PLAN FOR NEXT VISIT: progress strengthening as tolerated, scapula/shoulder, continue stretching pecs to improve posture SUBJECTIVE: Patient Reason for Visit: right shoulder was sore after last PT visit for left elbow Pain: Pain Pain Level: 4 Pain Location: Shoulder - Right (anterior) Description: Sore;Tightness Frequency: Continuous Post Treatment Pain Post Treatment Pain Level: (right shoulder fatigued) OBJECTIVE MEASURES WITH LEVEL OF FUNCTION: Posture / Alignment Posture: Rounded shoulders UE AROM R Shoulder Flex: 160 Degrees R Shoulder Internal Rotation (Functional): L1 Proximal biceps tender right shoulder TREATMENT: Therapeutic Exercise: 1: UBE resistance 3, seat 6, 2 min forward 1 min back 2: standing right pec major stretch (T) at door 10 x 3: standing right pec minor stretch (Y) 10 x at door 4: scapula retraction bilateral 3 sec x 5 5: biceps curls 3# 2 x 10 reps 6: standing bilateral shoulder flexion 2# 10 x 2 sets 7: lat pulls green band 2 x 10 reps 8: standing bilateral shoulder horiz abd green band 10 x 9: bilateral shoulder ER red band 2 x 10 reps, cues for scap retraction/depression 10: bilateral triceps extension green band 2 x 10 reps--unsteady/shaky 11: wall walk right shoudler flexion, eccentric no wall 10 x Skilled Intervention: Patient was educated in proper exercise technique and purpose for exercises. Manual Therapy: 1: supine right shoulder flexion, abd, IR PROM 2: supine right GH mobs grade II posterior and inferior 3: supine right shoulder pec major and minor stretch (arm at Y and T) PROM Skilled Intervention: Manual skills to improve joint mobility, ROM, and decrease pain. Utilized anatomy knowledge of the therapist, and assessment of patient's response to intervention. Billing Therapeutic Exercise Treatment Minutes: 25 Manual TherapyTreatment Minutes: 15 Total Treatment Time Minutes (timed/untimed): 41 Sánchez Bedolla PT DPT documented in this encounterVeterans Health Administration05-23-2022 History of Present illness Narrative* Sánchez Bedolla PT DPT - 04/04/2022 1:15 PM EDT Episode Visit Count: 4 Therapist That Will Oversee The Plan Of Care: Sánchez Bedolla Start of Care Date: 03/18/22 Onset Date: 06/22/21 Plan of Care Certification Date: 03/18/22 Next Certification Due Date: 05/18/22 REHABILITATION AND SPORTS THERAPY PHYSICAL THERAPY DISCONTINUANCE OF CARE PLAN OF CARE UPDATE: Assessment: Sid Lezama is discontinued from Physical Therapy services due to Patient/Clinician mutual decision to discontinue current plan of care.. Patient was seen for 4 visits from Start ofCare Date: 03/18/22 to 04/04/2022 and treatment included: Therapeutic exercise, Neuromuscular re-education, Manual therapy, Therapeutic activities, Self-snf management, Patient/Family/Caregiver Education and Functional training. S/p LEFT elbow tenjet procedure 12/24/21. Pt has good ROM, no elbow pain, good strength, fatigues with heavy household/outside chores, has HEP to continue progressing. Left Elbow Goals for Episode of Care: created on 01/14/22 through 02/14/22 Updated 02/28/22 Updated 04/04/22 [facility] in home exercise program.-MET Perform ADLs with less than 2/10 left elbow pain.-MET Increase ROM of left wrist extension AROM 60 degrees. -MET Increased strength of left wrist flexion/ext, supination/pronation to 4+/5 MMT.- MET Left security operations engineer strength equal to right security operations engineer strength.- MET Pt will report she can cut/cook, drive without left elbow pain.- MET Improve postural awareness.-MET Patient Goals: decrease pain/swelling, be able to use left arm for daily Activities Right Shoulder Goals for Episode of Care: created on 03/18/22 through 05/18/22 G[facility] in home exercise program. Perform ADLs with less than 2/10 right shoulder pain. Increase ROM of right shoulder IR/Ext AROM behind back to thumb at T9 without increased pain. Increased strength of right biceps curl 8# 10 x. Right shoulder ER and IR strength 4+/5 MMT without increased pain. Right shoulder flexion strength 4+/5 MMT without increased pain. Pt will report right biceps doesn't cramp when tossing wood into pile for preparing wood to heat home. Patient Goals: decrease shoulder pain, improve ROM and strength SUBJECTIVE: Patient Reason for Visit: left elbow doing well, no real issues with elbow. Notices it kind of gives out/weakness if doing something and it is too much.. Left shoulder pop/cracks sometimes but not too painful. Recently pulling water lines out of ground for garden, shoulder/elbow tired. Pain: Pain Pain Level: 0 Pain Location: Elbow - Left PROMIS Scales Higher is Better 06/18/2021 06/23/2021 02/08/2022 Phys Func - Score 29 (severe dysfunction) - 33 (moderate dysfunction) Phys Func - Percentile 2 % - 4 % Social Roles - Score - 37 (moderate dysfunction) 45 (within normal limits) Social Role - Percentile - 10 % 31 % GH Physical - Score - - 39.8 (Fair) GH Physical - Percentile - - 15 % GH Mental - Score - - 41.1 (Good) GH Mental - Percentile - - 19 % Self-Eff Symptom - Score - 34 (Low) 54 (Average) Self-Eff Symptom - Percentile - 5 % 66 % T-scores: mean of general population = 50. 5 points is clinically meaningfully difference Percentiles provide an indication of how the patient's score ranks in relation to the general population. Higher percentile rankings indicate better function/quality of life. 50th percentile is the average of the general population and indicates half of respondents had a worse score. Lower is Better 11/10/2020 06/18/2021 02/08/2022 Fatigue - Score 67 (moderate) 74 (severe) 64 (moderate) Fatigue - Percentile 4 % 1 % 8 % T-scores: mean of general population = 50. 5 points is clinically meaningfully difference Percentiles provide an indication of how the patient's score ranks in relation to the general population. Higher percentile rankings indicate better function/quality of life. 50th percentile is the average of the general population and indicates half of respondents had a worse score. OBJECTIVE MEASURES WITH LEVEL OF FUNCTION: UE AROM L UE AROM: left elbow flexion, ext wnls, pronation/supination wnls, wrist ext/flexion wnls UE and Cervical Strength L Shoulder Flexion: 4/5 L Shoulder Internal Rotation: 4+/5 L Shoulder External Rotation: 4/5 L Elbow Extension (C7): 5/5 L Elbow Flexion (C6): 5/5 L Forearm Supination: 5/5 L Forearm Pronation: 5/5 L Wrist Extension: 5/5 L Wrist Flexion: 5/5 L Wrist Radial Deviation: 5/5 L Wrist Ulnar Deviation: 5/5 Hand Strength R Conversion Developer Position 2 (lbs): 58 lbs L Conversion Developer Position 2 (lbs): 58 lbs No difference in tenderness to palpation left/right lat epic TREATMENT: Therapeutic Exercise: 1: UBE seat 7, resistance 3.0, 2 min forward 2 min back (with status updates) 2: lat pulls blue band 2 x 10-15 reps 3: standing triceps extension blue band 2 x 10-15 reps 4: standing bilateral shoulder ER with orange band 2 x 10 reps 5: standing bilateral biceps curls 5# 2 x 10 reps 6: standing left shoulder flexion 3# 10 x 2 sets 7: left shoulder/arm body blade IR/IR and push/pull 2 x 20 sec each 8: BOING left arm sup/pron 2 x 20 sec 9: standing left wrist flexion and extension 5# 10 x each 2 sets each 10: *updated written HEP with exercises from today for strengthening elbow and left shoulder/scap Skilled Intervention: Patient was educated in proper exercise technique and purpose for exercises. Reviewed and educated patient on additions/changes for home exercise program as above (*). Billing Therapeutic Exercise Treatment Minutes: 38 Total Treatment Time Minutes (timed/untimed): 41 Sánchez Bedolla PT, DPT documented in this encounterVeterans Health Administration05-16-2022 History of Present illness Narrative* Steve Juarez APRN.SQL ANALYST - 03/28/2022 10:00 AM EDT Chief complaint: Joint pain HPI: To review, Sid Lezama is a 46 year old female - Since teenage years, with intermittent joint pain and swelling. Affected joints include the wrists, MCPs, PIPs, knees, ankles and toes. Also gets hip pain. Eases with movement/activity. Worst pain is evening. - In April, diagnosed with Crohn's per colonoscopy. Underwent surgery to remove the large intestine. - In , had a rectal fistula so tried remicade (stopped s/p 6th dose for rash). Rectal stump was removed after that. - Sees pain management for serial spinal injections - In , diagnosed with psoriasis over scalp, knees and dorsal feet. 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 Mc, [facility] Type II or unspecified type diabetes mellitus without mention of complication, not stated as uncontrolled Ureterolithiasis 07/18/2019 GERD PAST SURGICAL HISTORY Procedure Laterality Date ADENOIDECTOMY PRIMARY <AGE 11 1986 Adenoidectomy ARTHROSCOPY KNEE DIAGNOSTIC W/WO SYNOVIAL BX SPX 1989 Arthroscopy, knee, left BRNCHSC INCL FLUOR GDNCE DX W/CELL WASHG SPX January 2007 Bronchoscopy EPIDURAL 2011 multiple ones done by Dr. Beckett PAST SURGICAL HISTORY OF 06/2000 ILEOSTOMY/COLECTOMY PAST SURGICAL HISTORY OF 1993 CRYOCAUTERY/ MILD DYSPLASIA PAST SURGICAL HISTORY OF March 2006 Abdominal abscess with anal fistula PRCTECT COMPL W/STOT/TOT COLCT W/VENEER JOINER BXS 2006 AP endoanal proctectomy SHOULDER ARTHROSCOPY/SURGERY Left 05/06/2020 Rotator cuff debridement, subacromial decompression/arthroplasty TONSILLECTOMY PRIMARY/SECONDARY <AGE 11 1986 Tonsillectomy ALLERGIES Allergen Reactions Azithromycin Unknown thinks a rash Dilaudid [Hydromorp* Swelling migraines Levemir [Insulin De* Other: See Comments Urine turned dark and smelly Methadone Swelling migraine Morphine Swelling migraines Remicade [Inflixima* Intolerance, Rash broke out in blisters with the 6th dose. Ultram [Tramadol Hc* Swelling migraines INTERVAL HISTORY She is here for follow up. She is following with a holistic health specialist. She takes percocet or aleve for pain. Sites of pain: knees, L foot, b/l calves, fingers, pain rated 4/10 Joint swelling: fingers EMS: yes, lasting 20 minutes after taking a shower Psoriasis: R knee, feet-uses topical treatment No recent infections. Tolerating meds. REVIEW OF SYSTEMS GENERAL: No fevers HEENT: +headaches RESPIRATORY: Negative for cough, wheezing, or shortness of breath CARDIOVASCULAR: see above GI: No nausea or vomiting, +diarrhea : No history of dysuria SKIN: see above No gross hematuria or blood in stool No mouth sores Current Outpatient Medications Medication Sig iv contrast (will be provided with radiology test) CT Enterography W Inject, intravenously, once for 1 dose.No IV access, insert saline lock prior to the beginning of sedation, infusion, injection ofimaging exam. Discontinue saline lock post exam. If Pt. has a central line or IVAD, may access for administration according to line specific nursing protocol. Once exam is complete flush line and de-access according to line specific nursing protocol in the CT contrast administration guidelines link. enteric contrast (will be provided with radiology test) For CT ENTEROGRAPHY W IVCON order Administer, As Directed One Time Only, via Oral, Rectal, both Oral and Rectal, Enteric Tube, Stoma or Indwelling Catheter, Enteric Contrast as designated per enteric contrast guidelines. Norethindrone, Contraceptive, 0.35 mg tablet TAKE 1 TABLET EVERY DAY clobetasol (TEMOVATE) 0.05 % cream Apply to affected area twice daily. Sparingly to feet, knees, palms. rizatriptan (MAXALT VENEER JOINER) 10 mg disintegrating tablet Take 1 tablet by mouth as needed for migraine headache (see administration instructions). May repeat in 2 hours if needed Lancets (ACCU-CHEK SOFTCLIX LANCETS) lancets TEST BLOOD SUGAR TWICE DAILY (TYPE 2 DIABETES) OZEMPIC 1 mg/dose (4 mg/3 mL) pen injector INJECT 1 MG SUBCUTANEOUSLY ONE TIME A WEEK. LANTUS SOLOSTAR U-100 INSULIN 100 unit/mL (3 mL) INJECT 60 UNITS SUBCUTANEOUSLY DAILY AT BEDTIME. (Patient taking differently: Inject 56 Units subcutaneously daily at bedtime. ) metFORMIN (GLUCOPHAGE) 1,000 mg tablet TAKE 1 TABLET TWICE DAILY albuterol HFA (PROVENTIL HFA, VENTOLIN HFA) 90 mcg/actuation inhaler Inhale 2 Puffs as instructed every 4 hours as needed for wheezing/shortness of breath. pregabalin (LYRICA) 150 mg capsule Take 1 capsule by mouth three times daily for 180 days. blood sugar diagnostic (ACCU-CHEK GUIDE TEST STRIPS) test strip TEST BLOOD SUGAR TWICE DAILY (TYPE 2 DIABETES) vits62/FA/om3/dha/epa ( GUMMY ORAL) Take 2 Doses by mouth once daily. fluticasone (FLONASE) 50 mcg/actuation nasal spray Use 2 Sprays in each nostril once daily. Magnesium Oxide 500 mg cap Take 1 capsule by mouth twice daily. Blood-Glucose Meter (ACCU-CHEK DIANNE) Test blood sugar(s) 2 times daily. Dx: Type 2 DM - Controlled E11.9 Insulin: No, Accu-check brand covered by insurance Ascorbic Acid (VITAMIN C) 500 mg chew Take 1,000 mg by mouth once daily. With rosehips elderberry fruit (ELDERBERRY ORAL) Take by mouth. famotidine (PEPCID) 40 mg tablet Take 1 tablet by mouth twice daily. Insulin Lynch, Disposable, (DROPLET PEN NEEDLE) 32 gauge x 5/32 INJECT ONE TIME DAILY. E11.65 cetirizine (ZYRTEC) 10 mg tablet Take 1 tablet by mouth once daily. mecobalamin, vitamin B12, 5,000 mcg ODT Take 1 tablet by mouth once daily. Biotin 10,000 mcg cap Take 1 capsule by mouth twice daily. Cholecalciferol, Vitamin D3, (VITAMIN D-3) 50 mcg (2,000 unit) cap Take 1 capsule by mouth twice daily. acidophilus-pectin, citrus (ACIDOPHILUS PROBIOTIC) 100 million cell-10 mg cap Take 1 cap daily COMPOUNDED PRESCRIPTION 1. V44.2 Ileostomy status (HCC) (primary diagnosis) 2. 555.1 Regional enteritis of large intestine (HCC) Ileostomy Supplies. 1. Pouches, 2. Planges, 3. Felipe seals, 4. Stoma adhesive, 5. Stoma powder, 6. Skin preps, 7. Adhesive remover wipes. Dispense 1 year supplies. tizanidine (ZANAFLEX) 4 mg ORAL tablet Take by mouth. . Takes 1 tablet at bedtime. No current facility-administered medications for this visit. FAMILY HISTORY Problem Relation Age of Onset Alcohol/Drug Mother Hypertension Mother COPD other (vascular disease) Mother other (sleep apnea) Mother other (heart murmur) Mother Alcohol/Drug Father Cancer Father liver Asthma Brother Hypertension Daughter Diabetes Maternal Grandmother Stroke Maternal Grandmother Heart Maternal Grandmother Emphysema Paternal Grandmother Diabetes Paternal Grandfather Macular Degen Paternal Grandfather Anesthesia Problems No Family History F-hemochromatosis, in '13 from it. SOCIAL HISTORY: Lives in [place], [place] with spouse. 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 1 daughter, 24 yo lives with her. Studied [employer] design, just graduated college. Tobacco use: None Alcohol use: None Drug use: None PHYSICAL EXAM: BP 115/66 Pulse 81 Temp 36 C (96.8 F) (Temporal) Ht 152.4 cm (5') Wt 83 kg (183 lb) LMP 07/25/2018 BMI 35.74 kg/m CONSTITUTIONAL: Well-appearing, in NAD. SKIN: Excoriated lesions over the legs. No sclerodactyly, calcinosis, telangiectasias, digital ulcers, or skin thickening. EYES: No scleral icterus or conjunctivitis ENT and Mouth: External ears normal. NECK: No lymphadenopathy RESPIRATORY: Normal breath sounds, clear to auscultation. CARDIOVASCULAR: Regular rate and rhythm, no murmurs or rubs GASTROENTEROLOGY: Normal bowel sounds. Abdomen is soft and non-tender. EXTREMITIES/LYMPH: No edema bilaterally NEURO: Awake, alert and oriented, Normal gait MUSCULOSKELETAL: JOINT APPEARANCE: No erythema or warmth of any upper or lower extremity joint. RANGE OF MOTION: Able to fully close fists and curl fingers bilaterally. SWOLLEN JOINTS/SYNOVITIS: No synovitis of any joint. TENDER JOINTS: Tenderness to palpation of the b/l elbows, R MCPs and DIPs, R ankle +no tenderness to spine or SI joints Widespread Pain Index: 16 (0-19) Symptoms Severity Scale: 6 (0-12) WPI>7 and SS Scale>5 OR WPI 3-6 and SS Scale >9 consistent with fibromyalgia Labs reviewed and discussed with the patient: Component Latest Ref Rng & Units 03/24/2022 WBC 3.70 - 11.00 k/uL 7.35 RBC 3.90 - 5.20 m/uL 5.45 (H) Hemoglobin 11.5 - 15.5 g/dL 15.6 (H) Hematocrit 36.0 - 46.0 % 48.5 (H) MCV 80.0 - 100.0 fL 89.0 MCH 26.0 - 34.0 pg 28.6 MCHC 30.5 - 36.0 g/dL 32.2 RDW-CV 11.5 - 15.0 % 13.0 Platelet Count 150 - 400 k/uL 273 MPV 9.0 - 12.7 fL 11.0 Neut% % 53.3 Abs Neut (ANC) 1.45 - 7.50 k/uL 3.91 Lymph% % 35.5 Abs Lymph 1.00 - 4.00 k/uL 2.61 [place]% % 7.6 Abs [place] <0.87 k/uL 0.56 Eosin% % 2.4 Abs Eosin <0.46 k/uL 0.18 Baso% % 0.8 Abs Baso <0.11 k/uL 0.06 Immature Gran % % 0.4 IMMATURE GRANS (ABS) <0.10 k/uL 0.03 NRBC /100 WBC 0.0 Absolute nRBC <0.01 k/uL <0.01 DTYPE Auto Albumin 3.9 - 4.9 g/dL 4.5 Bilirubin, Total 0.2 - 1.3 mg/dL 0.5 Bilirubin, Conjug <0.2 mg/dL <0.2 Alkaline Phosphatase 34 - 123 U/L 129 (H) AST 13 - 35 U/L 29 ALT 7 - 38 U/L 36 Protein, Total 6.3 - 8.0 g/dL 7.4 Creatinine 0.58 - 0.96 mg/dL 0.59 eGFR >=60 mL/min/1.73m 112 Component Latest Ref Rng & Units 06/18/2021 Glucose 74 - 99 mg/dL 102 (H) BUN 7 - 21 mg/dL 6 (L) Creatinine 0.58 - 0.96 mg/dL 0.59 Sodium 136 - 144 mmol/L 137 Potassium 3.7 - 5.1 mmol/L 4.5 Chloride 97 - 105 mmol/L 104 CO2 22 - 30 mmol/L 21 (L) Anion Gap 9 - 18 mmol/L 12 Calcium 8.5 - 10.2 mg/dL 10.8 (H) eGFR- >60 eGFR-All Other Races . >60 TB Nil IU/mL 0.22 TB1 Ag minus Nil <0.35 IU/mL 0.00 TB2 Ag minus Nil <0.35 IU/mL 0.00 Mitogen minus Nil >10 TB Result Negative Negative TB Interpretation No evidence of current or previous infection with Mycobacterium tuberculosis. Hep B Core Ab, Total Negative Negative Hep C Antibody IA Negative Negative Hep B Surface Ag Negative Negative Hep B Surface Ab, Qual Negative Negative PTH, Intact 15 - 65 pg/mL 45 Vitamin D 25 Hydroxy 31.0 - 80.0 ng/mL 49.8 Rheumatoid Factor <16 IU/mL <10 CCP Antibody, IgG <20 Units <15 Component Latest Ref Rng & Units 01/20/2021 05/18/2021 WBC 3.70 - 11.00 k/uL 15.46 (H) RBC 3.90 - 5.20 m/uL 5.06 Hemoglobin 11.5 - 15.5 g/dL 14.8 Platelet Count 150 - 400 k/uL 271 ALT 7 - 38 U/L 33 AST 13 - 35 U/L 19 TSH 0.270 - 4.200 uU/mL 2.790 Component Latest Ref Rng & Units 09/19/2011 12/21/2011 Rheumatoid Factor <20 IU/mL <7 CCP Antibody, IgG <20 Units <15 HLA B27 NEGAT Positive (A) INOCENCIO by EIA <1.5 OD Ratio 0.4 Anti-SSA <1.0 AI <0.2 Anti-SSB <1.0 AI <0.2 STUDIES: 09/2021 hand x-rays: IMPRESSION Subtle variable phalangeal spurring with little to no joint space narrowing, both hands. No erosive arthropathy. 09/2021 L elbow x-ray: IMPRESSION No acute bony abnormality. *April MRI R shoulder- mild supraspinatus tendinosis *Oct xray L foot- Calcaneal enthesophytes. *Oct MRI pelvis- NO ACUTE ABNORMALITY Sacroiliac joints: Punctate area of subchondral edema within the right sacrum at the SI joint on series 8 image 11, doubtful clinical significance. *Sep xray SI joints- Asymmetrical sacroiliitis involving the left SI joint. *Sep xray hands/feet- Mild degenerative change. IMPRESSION and PLAN: 1. Seronegative spondyloarthropathy: With joint pain/swelling responsive to systemic effect of localized steroid joint injections in the setting of a positive HLA-B27, '11 x-rays show L SI joint sacroiliitis, history of Crohn's and psoriasis. Remicade with blisters. Currently with active joint pain. -Dr. Gold and I recommended starting humira 40mg SC every 2 weeks. The patient continues to decline starting humira at this time. She does not wish to start any other medications at this time. -will avoid MTX due to elevated liver enzymes 2. Spinal osteoarthritis: - Continue pain clinic management (not [facility]) 3. R rotator cuff tear: - Continue orthopedic management 4. General health maintenance: - Not planning to get the covid vaccine as she already had it twice and states it was not studied enough and she has concerns about it. She was previously advised that my recommendation would be to get the covid vaccine and if she has any questions about it, to let me know. - Advised to continue follow-up with PCP for routine health maintenance and malignancy screening Follow-up in [address] Gold or sooner if needed. Patient was instructed to call if any questions or concerns. Thank you for allowing me to participate in the care of your patient. I spent a total of 15 minutes on the date of the service which included preparing to see the patient, [id number] patient care, completing clinical documentation, performing a medically appropriate examination and communicating results to the patient/family/caregiver. Steve Juarez [email or web address] documented in this encounterVeterans Health Administration05-12-2022 History of Present illness Narrative* Shira Alejo RN - 03/24/2022 9:36 AM EDT [facility] Nursing Consult Topic: WO Consultation Note Outcome: Patient in A30 to see Dr. Rodriguez. Patient recently seen by [facility] Nursing and aperture size refit. Patient has been able to order the correct size flange and is achieving a 3-5 day seal. Persistent moist tissue noted circumferential to stoma - when tested with an alcohol wipe the majority of the tissue is insensate and likely mucosal implants, however the edges are sensitive. Dr. Rodriguez offered patient surgical revision if desired. Current pouching system remains appropriate and patient is achieving a good seal despite moist tissue, no changes made this visit. Order form updated and copy provided to patient and faxed to [facility] per patient request. Next Scheduled Visit: yearly and as needed Assessment: Stoma Type: Loop ileostomy Diameter: 1 Location: RLQ Protrusion: Budded Mucosal condition and color: Red and moist Mucocutaneous junction Intact Peristomal Skin: Chronic Erythema, Denuded and Pseudoverrucous Location of Skin Impairment: circumferential and adjacent to stoma Peristomal contour: concave to inner peristomal border, rounded to outer peristomal border Supportive Tissue: Soft Character of output: thick light brown liquid Emptying frequency per day: 4 times daily Current pouching system: 2x2 Hollihesive washer, 1 3/4 ConvaTec SurFit Natura Durahesive [id number] 1 flange. Felipe seal. Drainable mini pouch with clip closure Current wearing time: 3-5 days, aperture hydrated but intact Recommendations: Skin Care: dusted with ConvaTec Stomahesive powder Pouching System: Same as above Wear Time Goal: 3-5 days Time Increment: 45 minutes Shira Alejo RN, BSN, CWOCN * Shira Alejo RN - 03/24/2022 9:27 [place] [address] Patient: Sid Lezama Patient [address]: [address] [place] [address] Preferred Gender: female Date of : 1975 Type of Stoma: Loop Ileostomy Diagnosis: Crohn's K50.90 OSTOMY SUPPLY ORDER FORM Pouch: ConvaTec: #[id number] 1 3/4 opaque 10 pouch with clip closure 30 day use - 2 Boxes Wafer: ConvaTec: Bryon-Fit Natura Convex-It precut 1 Durahesive # [id number] 30 day use - 2 Boxes Adhesive Removers: ConvaTec Esenta Sting Free Adhesive Remover Wipes #[id number] 30 day use - 2 Boxes Moldable Ring: Felipe Seal 2 # [id number] 30 day use - 2 Boxes Powder: ConvaTec Stomahesive # 52047 30 day use - 1 Bottle Skin Barrier: [place] Hollihesive 4x4 5/box #7700 30 day use - 1 Box Skin Sealant: 3M No Sting, 30/Box # 3344 30 day use - 1 Box Refills: 11 Attending Physician: Dr. Rodriguez For immediate authorization, please contact the physician s office. [facility] Nurse: IRINEO Castro, CWOCN Note: na SIGNATURE: Shira Alejo RN PATIENT NAME: Sid Lezama DATE: March 24, 2022 TIME: 9:27 AM CONTACT #: [phone] EMAIL: [email or web address] documented in this encounterVeterans Health Administration05-06-2022 History of Present illness Narrative* Sánchez Bedolla PT, DPT - 03/18/2022 9:38 AM EDT Episode Visit Count: 1 Therapist That Will Oversee The Plan Of Care: Sánchez Bedolla Start of Care Date: 03/18/22 Onset Date: 06/22/21 Plan of Care Certification Date: 03/18/22 Next Certification Due Date: 05/18/22 Patient Identified by Name and Date of : Yes REHABILITATION AND SPORTS THERAPY PHYSICAL THERAPY EVALUATION PLAN OF CARE: Assessment: Sid Lezama presents with diagnosis of s/p RIGHT shoulder arthroscopy with RC repair and long head biceps release, DOS 06/22/21. Pt has functional PROM/AROM with pain at end range AROM, most significant deficit is right shoulder and biceps weakness causing pain with ADLs. Limitations interfere with (reaching, push/pull, don/dof bra, chores with using wood for heating home) . Prognosis for therapy is Good due to: current objective clinical presentation;within-session changes . She will benefit from skilled therapy services to meet the goals established for this plan of care asnoted below. Goals for Episode of Care: created on 03/18/22 through 05/18/22 [facility] in home exercise program. Perform ADLs with less than 2/10 right shoulder pain. Increase ROM of right shoulder IR/Ext AROM behind back to thumb at T9 without increased pain. Increased strength of right biceps curl 8# 10 x. Right shoulder ER and IR strength 4+/5 MMT without increased pain. Right shoulder flexion strength 4+/5 MMT without increased pain. Pt will report right biceps doesn't cramp when tossing wood into pile for preparing wood to heat home. Patient Goals: decrease shoulder pain, improve ROM and strength Planned Interventions, Frequency, and Duration: Current Frequency: 1x/week Duration: 8 weeks Total Number of Visits Planned: 8 Planned Treatment Interventions: Therapeutic exercise (68250);Neuromuscular re- education (44514);Manual therapy (83091);Therapeutic activities (32875);Self- snf management (34704);Patient/Family/Caregiver Education;Body Mechanics Training;Functional training PLAN FOR NEXT VISIT: progress strengthening as tolerated, scapula/shoulder Patient demonstrates good understanding of plan of care and treatment. The above goals and plan of care were discussed and agreed upon by patient/family. SUBJECTIVE: Sid Lezama is a 46 year old female seen today for right shoulder pain 3-5 yrs with injecions for a while, surgery 06/22/21 for frayed RC per pt report. Currently main issues are reaching back/up with stiffness/pain. Hasn't had full strength back since surgery but is able to use it. 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 Can't do a lot of raking at once, has to take a break.. Right biceps will ball up and get tight after tossing wood and pulling clothes out of laundry Patient Goals: decrease shoulder pain, improve ROM and strength Functional Limitations: (reaching, push/pull, don/dof bra, chores with using wood for heating home) Prior Level of Function: Independent without limitations Relevant History Past Relevant Medical Conditions: Comments Relevant Medical Conditions Comments: crohns, DM, depression, hyperlipidemia, RA Right or Left Handed: Right Recreation / Current Exercise: wall walk, pulling strap behind back IR/ext Intake Information: Prescription present Previous Treatment: Surgery ;Physical Therapy Pain: Pain Pain Level: 1 (worst pain 5/10, best 1/10) Pain Location: Shoulder - Right (anterior) Description: Aching (twinge occasional) Frequency: Continuous Post Treatment Pain Post Treatment Pain Level: No Change PROMIS Scales Higher is Better 06/18/2021 06/23/2021 02/08/2022 Phys Func - Score 29 (severe dysfunction) - 33 (moderate dysfunction) Phys Func - Percentile 2 % - 4 % Social Roles - Score - 37 (moderate dysfunction) 45 (within normal limits) Social Role - Percentile - 10 % 31 % GH Physical - Score - - 39.8 (Fair) GH Physical - Percentile - - 15 % GH Mental - Score - - 41.1 (Good) GH Mental - Percentile - - 19 % Self-Eff Symptom - Score - 34 (Low) 54 (Average) Self-Eff Symptom - Percentile - 5 % 66 % T-scores: mean of general population = 50. 5 points is clinically meaningfully difference Percentiles provide an indication of how the patient's score ranks in relation to the general population. Higher percentile rankings indicate better function/quality of life. 50th percentile is the average of the general population and indicates half of respondents had a worse score. Lower is Better 11/10/2020 06/18/2021 02/08/2022 Fatigue - Score 67 (moderate) 74 (severe) 64 (moderate) Fatigue - Percentile 4 % 1 % 8 % T-scores: mean of general population = 50. 5 points is clinically meaningfully difference Percentiles provide an indication of how the patient's score ranks in relation to the general population. Higher percentile rankings indicate better function/quality of life. 50th percentile is the average of the general population and indicates half of respondents had a worse score. OBJECTIVE MEASURES WITH LEVEL OF FUNCTION: Posture / Alignment Posture: Increased thoracic kyphosis Shoulder Observations R Shoulder Palpation Tenderness: Comments R Shoulder Palpation Tenderness Comments: no notable tenderness Cervical Spine ROM Cervical ROM : (cervical rotation AROM wnls, no pain) UE AROM R Shoulder Flex: 160 Degrees (pain end range) R Shoulder ABduction: 170 Degrees (pain end range) R Shoulder Internal Rotation (Functional): L1 (stiff/pain) R Shoulder External Rotation: 75 Degrees (at 0 deg abd, pain) L Shoulder Flex: 170 Degrees L Shoulder Internal Rotation (Functional): T8 UE PROM R Shoulder Flex: 170 Degrees R Shoulder Internal Rotation: 60 Degrees (at 90 deg abd) R Shoulder External Rotation: 100 Degrees (at 90 deg abd) UE Joint Mobility R Shoulder joint mobility: WNL UE and Cervical Strength Strength Tested: Shoulder All R Shoulder Flexion: 4-/5 (pain) R Shoulder Internal Rotation: 4-/5 (pain) R Shoulder External Rotation: 4-/5 (pain) R Elbow Extension (C7): 5/5 R Elbow Flexion (C6): 4/5 L Shoulder Internal Rotation: 5/5 L Shoulder External Rotation: 4/5 L Elbow Flexion (C6): 5/5 Right julien deformity with elbow flexion Education: Education Learning Preferences: Demonstration;Explanation;Performance;Printed Materials Barriers: None Learning/educational needs: Health promotion;Safety;Home exercise program;Plan of Care;Changes in Plan of Care;Posture Education Provided: Yes, see treatment interventions for education provided Education Provided To: Patient Education Mode/Type: Demonstration;Explanation/Discussion;Performance Response to Education/Teach Back: States/Identifies;Return Demonstration TREATMENT: PT Treatment Interventions: Therapeutic Exercise;Manual Therapy Evaluation Evaluation Therapeutic Exercise: 1: UBE seat 6, 1 min forward, 1 min backward, 2.0 resistance 2: *standing right shoulder ER orange band 2 x 10-15 reps 3: *standing right shoulder IR orange band 10-15 reps, 2 sets 4: *biceps curl right arm 3# 10-15 reps, 2 sets 5: *standing right shoulder flexion 0-90 deg, 2# 10-15 reps 2 sets 6: education about HEP, POC, exam findings, emphasis on strengthening Skilled Intervention: Patient was educated in proper exercise technique and purpose for exercises. Provided written instruction for home exercise program to facilitate proper performance and compliance. Manual Therapy: 1: supine right shoulder PROM IR (at 90 deg abd) Skilled Intervention: Manual skills to improve joint mobility, ROM, and decrease pain. Utilized anatomy knowledge of the therapist, and assessment of patient's response to intervention. Billing * Evaluation Low Complexity: 1 Unit Therapeutic Exercise Treatment Minutes: 20 Manual TherapyTreatment Minutes: 5 Total Treatment Time Minutes (timed/untimed): 41 Sánchez Bedolla PT, DPT documented in this encounterVeterans Health Administration04-27-2022 Miscellaneous Notes* Telephone Encounter - Jane Christopher - 03/09/2022 12:18 PM EDT Patient has been waiting approval for therapy for her right shoulder. She is currently in therapy for her elbow. Order was placed 02/11/22 and was told by the PT office that they would start the approval process. As of today, it has not. Are we able to assist the patient is in that way she can schedule for her shoulder? Thank you! Jane White documented in this encounterVeterans Health Administration04-25-2022 History of Present illness Narrative* Mika Simmons DO - 03/07/2022 12:54 PM EDT [facility] Department of Orthopaedic Surgery Mika Simmons DO Orthopaedic and Rheumatologic [place] ([facility]) [facility] This video visit took place through the [employer] platform. It required patient-provider interaction for the medical decision making as documented below. CHIEF COMPLAINT: Sid Lezama is a 46 year old female who presents today for a follow-up evaluation of CORDELL. HISTORY OF PRESENT ILLNESS: 12/24/21 CORDELL left [facility]. Has been attending PT and HEP. Overall she has full range of motion - working on strength training. Had to get more visits approved by insurance. ALLERGIES ALLERGIES Allergen Reactions Azithromycin Unknown thinks a rash Dilaudid [Hydromorp* Swelling migraines Levemir [Insulin De* Other: See Comments Urine turned dark and smelly Methadone Swelling migraine Morphine Swelling migraines Remicade [Inflixima* Intolerance, Rash broke out in blisters with the 6th dose. Ultram [Tramadol Hc* Swelling migraines ASSESSMENT AND PLAN: (M77.12) Lateral epicondylitis of left elbow (primary encounter diagnosis) Patient progressing well with current treatment plan. Overall health and fitness was discussed withthe patient. We will continue to monitor symptoms at this time. Patient verbalizes understanding and agrees with the treatment plan as detailed above. Mika Simmons DO documented in this encounterVeterans Health Administration04-22-2022 Miscellaneous Notes* Telephone Encounter - Gilmer Thorpe RN - 03/04/2022 12:20 PM EDT Protocol recommends go to the ER now. The Pt is going to have her drive her to [facility]. Care plan reviewed with patient. Patient voices understanding. Advised patient that if symptoms get worse to be evaluated in Urgent Care or ER. Reason for Disposition SEVERE dizziness (e.g., unable to stand, requires support to walk, feels like passing out now) Answer Assessment - Initial Assessment Questions 1. DESCRIPTION: Feels lightheaded, when she stops walking it stops. She walks/leans to the left andhas to use the wall to walk. 2. LIGHTHEADED: Pt reports feeling lightheaded woozy, and weak upon standing, 3. VERTIGO: Pt denies feeling like she or the room is spinning or tilting. 4. SEVERITY:- MILD: Feels slightly dizzy, but walking normally. - MODERATE: Feels very unsteady when walking, but not falling; interferes with normal activities (e.g., school, work) . - SEVERE: Unable to walk without falling, or requires assistance to walk without falling; feels like passing out now. Pt reports she can get up and walk, but the floor feels like mush and she leans to the left and walks towards the left. She states she has to gold onto the wall to stay up. She reports she feels likeshe is going to fall down. 5. ONSET: Pt reports it began yesterday at 500 pm. 6. AGGRAVATING FACTORS: Standing and moving make it worse. 7. HEART RATE: Pt reported her heart was not beating too slow or fast, sent her to ER before this was done. 8. CAUSE:Pt does not know. 9. RECURRENT SYMPTOM: Pt denies. 10. OTHER SYMPTOMS:Pt reports diarrhea is normal for her. Pt denies bleeding, fever, chest pain, and vomiting. Pt reports feeling unsteady on her feet like she is walking on mush, and she leans to the left and is walking to the left. She reports she feels lightheaded like she is getting up too fast. She states she has this lightheaded feeling the whole time she is moving, but is she stops then itstops. 11. : Pt denies. Protocols used: DIZZINESS - [id number] documented in this encounterVeterans Health Administration04-18-2022 History of Present illness Narrative* Sánchez Bedolla, PT, DPT - 02/28/2022 12:16 PM EDT Episode Visit Count: 3 Therapist That Will Oversee The Plan Of Care: Sánchez Bedolla Start of Care Date: 01/14/22 Onset Date: 01/15/16 Plan of Care Certification Date: 02/28/22 Next Certification Due Date: 03/30/22 REHABILITATION AND SPORTS THERAPY PHYSICAL THERAPY PROGRESS REPORT PLAN OF CARE UPDATE: Assessment: Sid Lezama presents s/p LEFT elbow tenjet procedure 12/24/21, lateral epicondylitis. She has improved in past couple months and has no notable left elbow pain and elbow/wrist ROM iswnls. Left shoulder, elbow and wrist weakness is causing difficulty with ADLs especially with lifting/carrying. She is progressing toward all goals. Limitations interfere with (lifting,carrying, has to be careful with lifting some objects in kitchen) . Current prognosis is Good due to: current objective clinical presentation . She will benefit from continued skilled therapy services to meet the updated goals for this plan of care as noted below. Goals for Episode of Care: created on 01/14/22 through 02/14/22 Updated 02/28/22 [facility] in home exercise program.-MET Perform ADLs with less than 2/10 left elbow pain.-MET Increase ROM of left wrist extension AROM 60 degrees. -MET Increased strength of left wrist flexion/ext, supination/pronation to 4+/5 MMT.-NOT MET Left security operations engineer strength equal to right security operations engineer strength.-NOT MET Pt will report she can cut/cook, drive without left elbow pain.-NOT MET Improve postural awareness.-MET Patient Goals: decrease pain/swelling, be able to use left arm for daily activities Planned Interventions, Frequency, and Duration: 1x every other week, 4 weeks Total Number of Visits Planned: 2 Patient to be seen for Therapeutic exercise (52390);Neuromuscular re-education (90350);Manual therapy (86403);Therapeutic activities (93708);Self-snf management (32189);Patient/Family/CaregiverEducation;Body Mechanics Training;Functional training PLAN FOR NEXT VISIT: continue strengthening left UE SUBJECTIVE: Patient Reason for Visit: elbow pain not a problem, left arm weakness above and below elbow, very occasional left wrist weakness less frequent than before surgery. Has PT order for right arm from different physician and will schedule that PT eval.. Needs help moving kitchen mixer, getting heavy things out of oven, cast iron skillet, difficutly stacking and splitting wood for home heat. Doing HEP: putty squeeze, wrist exercises with dense lacrosse ball. Functional Limitations: (lifting,carrying, has to be careful with lifting some objects in kitchen) Pain: Pain Pain Level: 0 (no pain in past week) Pain Location: Elbow - Left Post Treatment Pain Post Treatment Pain Level: No Change PROMIS Scales Higher is Better 06/18/2021 06/23/2021 02/08/2022 Phys Func - Score 29 (severe dysfunction) - 33 (moderate dysfunction) Phys Func - Percentile 2 % - 4 % Social Roles - Score - 37 (moderate dysfunction) 45 (within normal limits) Social Role - Percentile - 10 % 31 % GH Physical - Score - - 39.8 (Fair) GH Physical - Percentile - - 15 % GH Mental - Score - - 41.1 (Good) GH Mental - Percentile - - 19 % Self-Eff Symptom - Score - 34 (Low) 54 (Average) Self-Eff Symptom - Percentile - 5 % 66 % T-scores: mean of general population = 50. 5 points is clinically meaningfully difference Percentiles provide an indication of how the patient's score ranks in relation to the general population. Higher percentile rankings indicate better function/quality of life. 50th percentile is the average of the general population and indicates half of respondents had a worse score. Lower is Better 11/10/2020 06/18/2021 02/08/2022 Fatigue - Score 67 (moderate) 74 (severe) 64 (moderate) Fatigue - Percentile 4 % 1 % 8 % T-scores: mean of general population = 50. 5 points is clinically meaningfully difference Percentiles provide an indication of how the patient's score ranks in relation to the general population. Higher percentile rankings indicate better function/quality of life. 50th percentile is the average of the general population and indicates half of respondents had a worse score. OBJECTIVE MEASURES WITH LEVEL OF FUNCTION: UE PROM R UE PROM: left wrist flexion/ext PROM wnls UE and Cervical Strength Strength Tested: Shoulder All R Shoulder Internal Rotation: 4/5 (bicep pain) R Shoulder External Rotation: 4/5 R Elbow Extension (C7): 5/5 R Elbow Flexion (C6): 4/5 R Forearm Supination: 4+/5 R Forearm Pronation: 5/5 R Wrist Extension: 5/5 R Wrist Flexion: 5/5 R Wrist Radial Deviation: 5/5 R Wrist Ulnar Deviation: 5/5 L Shoulder Internal Rotation: 4+/5 L Shoulder External Rotation: 4/5 L Elbow Extension (C7): 5/5 L Elbow Flexion (C6): 5/5 L Wrist Extension: 4/5 L Wrist Flexion: 4+/5 L Wrist Radial Deviation: 4+/5 L Wrist Ulnar Deviation: 5/5 Hand Strength R Conversion Developer Position 2 (lbs): 60 lbs L Conversion Developer Position 2 (lbs): 55 lbs Mild tenderness left wrist extensors TREATMENT: Therapeutic Exercise: 1: seated left wrist extension 3#, 3 x 10 reps 2: seated left radial deviation 3# 3 x 10 reps 3: seated left wrist flexion 5# 3 x 10 reps 4: standing bilateral biceps curls 5# 3 x 10 reps 5: standing bilateral shoulder ER with red band 2 x 10 reps 6: standing right and left IR red band 2 x 10 reps each 7: seated bilateral supination red band 3 x 10 reps 8: *updated written HEP with exercises from today, focus on strengthening 1x per day to every otherday 9: recheck Skilled Intervention: Patient was educated in proper exercise technique and purpose for exercises. Reviewed and educated patient on additions/changes for home exercise program as above (*). Manual Therapy: 1: seated left forearm extensor soft tissue mobilization Skilled Intervention: Manual skills to improve joint mobility, ROM, and decrease pain. Utilized anatomy knowledge of the therapist, and assessment of patient's response to intervention. Billing Therapeutic Exercise Treatment Minutes: 35 Manual TherapyTreatment Minutes: 5 Total Treatment Time Minutes (timed/untimed): 42 Sánchez Bedolla PT, DPT documented in this encounterV[facility]04-12-2022 Instructions* Patient Instructions* Savanna Flores - 02/22/2022 3:31 PM EDT You have ingrowing toenail, most pronounce on right great toe. Will check pvr (circulation) study. Pending pvr, consider permanent nail procedure. Will call with results. Diabetes Foot Care Instructions When you have diabetes, proper foot care is very important. Poor foot care may lead to amputation of a foot or leg. As a person with diabetes, you are more vulnerable to foot problems, because diabetes can damage your nerves and reduce blood flow to your feet. Here are some diabetes foot care tips to follow: Wash and Dry Your Feet Daily Use mild soaps Use warm water Pat your skin dry; do not rub. Thoroughly dry your feet. After washing, use lotion on your feet to prevent cracking. Do not put lotion between your toes. Examine Your Feet Each Day Check the tops and bottoms of your feet. Have someone else look at your feet if you cannot see them. Check for dry, cracked skin. Look for blisters, cuts, scratches, or other sores. Check for redness, increased warmth, or tenderness when touching any area of your feet. Check for ingrown toenails, corns, and calluses. If you get a blister or sore from your shoes, do not pop it. Apply a bandage and wear a differentpair of shoes. Take Care of Your Toenails Cut toenails after bathing, when they are soft. Cut toenails straight across and smooth with a nail file. Avoid cutting into the corners of toes. Do not cut cuticles. If you have neuropathy (or decreased sensation in your feet) a slope hoist operator should always cut your toenails. Be Careful When Exercising Walk and exercise in comfortable shoes. Do not exercise when you have open sores on your feet. Protect Your Feet With Shoes and Socks Never go barefoot. Always protect your feet by wearing shoes or hard-soled slippers or footwear. Avoid shoes with high heels and pointed toes. Avoid shoes that expose your toes or heels (such as open-toed shoes or sandals). These types of shoes increase your risk for injury and potential infections. Try on new footwear with the type of socks you usually wear. Do not wear new shoes for more than an hour at a time. Change your socks daily. Look and feel inside your shoes before putting them on to make sure there are no foreign objects orrough areas. Avoid tight socks. Wear natural-fiber socks (cotton, wool, or a cotton-wool blend). Wear special shoes if your health care provider recommends them. Wear shoes/boots that will protect your feet from various weather conditions (cold, moisture, etc.). Make sure your shoes fit properly. If you have neuropathy (nerve damage), you may not notice that your shoes are too tight. Perform the footwear test described below. Footwear Test Use this simple test to see if your shoes fit correctly: Stand on a piece of paper. (Make sure you are standing and not sitting, because your foot changes shape when you stand.) Trace the outline of your foot. Trace the outline of your shoe. Compare the tracings: Is the shoe too narrow? Is your foot crammed into the shoe? The shoe should be at least 1/2 inch longer than your longest toe and as wide as your foot. Proper Shoe Choices The following types of shoes are best for people with diabetes Closed toes and heels Leather uppers without a seam inside At least 1/2 inch extra space at the end of your longest toe Inside of shoe should be soft with no rough areas Outer sole should be made of stiff material Shoes should be at least as wide as your feet Tips for Foot Care in Diabetes Don't wait to treat a minor foot problem if you have diabetes. Follow your health care provider's guidelines and first aid guidelines. Report foot injuries and infections to your health care provider immediately. Check water temperature with your elbow, not your foot. Do not use a heating pad on your feet. Do not cross your legs. Do not self-treat your corns, calluses, or other foot problems. Go to your health care provider or slope hoist operator to treat these conditions. documented in this encounterV[facility] Administration04-12-2022 History of Present illness Narrative* Savanna Flores - 02/22/2022 3:23 PM EDT Images from the original note were not included. Consultation requested by Dr. Phan for an opinion regarding ingrowing toenail of both great toes. My final recommendations will be communicated back to the requesting physician by way of shared Medical record or letter to requesting physician via US mail. Initial Office Visit Subjective: This 46 year old female presents to clinic for diabetic foot check. Patient has the following complaints: ingrowing toenail of b/l hallux. Patient states that she tends to get ingrown toenails of b/l hallux mostly along the medial borders. patient states that she has had these on/off for several years. She has had procedures done in the past, never with a chemical. Patient states thatshe trims these herself and several weeks later, the ingrowns return. She is here to discuss options. Patient admits to being diabetic for 15 years now. Patient -B/T/N in feet at this time. Patient -pain in legs when walking. No other pedal complaints at this time. No change in medications or medical history since last visit. PAIN EVALUATION 02/22/2022 1457 Pain Level: 4 Pain Location: bilateral great toes Description: Stabbing Duration Amount of Time: 4 Duration Units: Weeks Frequency: Intermittent Intervention/Comfort measure: Other: See comment Comments: has tried removing herself without success. 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 Mc, [facility] Type II or unspecified type diabetes mellitus without mention of complication, not stated as uncontrolled Ureterolithiasis 07/18/2019 Current Outpatient Medications Medication Sig clobetasol (TEMOVATE) 0.05 % cream Apply to affected area twice daily. Sparingly to feet, knees, palms. rizatriptan (MAXALT VENEER JOINER) 10 mg disintegrating tablet Take 1 tablet by mouth as needed for migraine headache (see administration instructions). May repeat in 2 hours if needed Lancets (ACCU-CHEK SOFTCLIX LANCETS) lancets TEST BLOOD SUGAR TWICE DAILY (TYPE 2 DIABETES) Norethindrone, Contraceptive, 0.35 mg tablet TAKE 1 TABLET ONE TIME DAILY OZEMPIC 1 mg/dose (4 mg/3 mL) pen injector INJECT 1 MG SUBCUTANEOUSLY ONE TIME A WEEK. LANTUS SOLOSTAR U-100 INSULIN 100 unit/mL (3 mL) INJECT 60 UNITS SUBCUTANEOUSLY DAILY AT BEDTIME. (Patient taking differently: Inject 56 Units subcutaneously daily at bedtime. ) metFORMIN (GLUCOPHAGE) 1,000 mg tablet TAKE 1 TABLET TWICE DAILY albuterol HFA (PROVENTIL HFA, VENTOLIN HFA) 90 mcg/actuation inhaler Inhale 2 Puffs as instructed every 4 hours as needed for wheezing/shortness of breath. pregabalin (LYRICA) 150 mg capsule Take 1 capsule by mouth three times daily for 180 days. blood sugar diagnostic (ACCU-CHEK GUIDE TEST STRIPS) test strip TEST BLOOD SUGAR TWICE DAILY (TYPE 2 DIABETES) vits62/FA/om3/dha/epa ( GUMMY ORAL) Take 2 Doses by mouth once daily. fluticasone (FLONASE) 50 mcg/actuation nasal spray Use 2 Sprays in each nostril once daily. Magnesium Oxide 500 mg cap Take 1 capsule by mouth twice daily. Blood-Glucose Meter (ACCU-CHEK DIANNE) Test blood sugar(s) 2 times daily. Dx: Type 2 DM - Controlled E11.9 Insulin: No, Accu-check brand covered by insurance Ascorbic Acid (VITAMIN C) 500 mg chew Take 1,000 mg by mouth once daily. With rosehips elderberry fruit (ELDERBERRY ORAL) Take by mouth. famotidine (PEPCID) 40 mg tablet Take 1 tablet by mouth twice daily. Insulin Lynch, Disposable, (DROPLET PEN NEEDLE) 32 gauge x 5/32 INJECT ONE TIME DAILY. E11.65 cetirizine (ZYRTEC) 10 mg tablet Take 1 tablet by mouth once daily. mecobalamin, vitamin B12, 5,000 mcg ODT Take 1 tablet by mouth once daily. Biotin 10,000 mcg cap Take 1 capsule by mouth twice daily. Cholecalciferol, Vitamin D3, (VITAMIN D-3) 50 mcg (2,000 unit) cap Take 1 capsule by mouth twice daily. acidophilus-pectin, citrus (ACIDOPHILUS PROBIOTIC) 100 million cell-10 mg cap Take 1 cap daily COMPOUNDED PRESCRIPTION 1. V44.2 Ileostomy status (HCC) (primary diagnosis) 2. 555.1 Regional enteritis of large intestine (HCC) Ileostomy Supplies. 1. Pouches, 2. Planges, 3. Felipe seals, 4. Stoma adhesive, 5. Stoma powder, 6. Skin preps, 7. Adhesive remover wipes. Dispense 1 year supplies. tizanidine (ZANAFLEX) 4 mg ORAL tablet Take by mouth. . Takes 1 tablet at bedtime. No current facility-administered medications for this visit. ALLERGIES Allergen Reactions Azithromycin Unknown thinks a rash Dilaudid [Hydromorp* Swelling migraines Levemir [Insulin De* Other: See Comments Urine turned dark and smelly Methadone Swelling migraine Morphine Swelling migraines Remicade [Inflixima* Intolerance, Rash broke out in blisters with the 6th dose. Ultram [Tramadol Hc* Swelling migraines PAST SURGICAL HISTORY Procedure Laterality Date ADENOIDECTOMY PRIMARY <AGE 11 1986 Adenoidectomy ARTHROSCOPY KNEE DIAGNOSTIC W/WO SYNOVIAL BX SPX 1989 Arthroscopy, knee, left [facility] INCL FLUOR GDNCE DX W/CELL WASHG SPX January 2007 Bronchoscopy EPIDURAL 2011 multiple ones done by Dr. Beckett PAST SURGICAL HISTORY OF 06/2000 ILEOSTOMY/COLECTOMY PAST SURGICAL HISTORY OF 1993 CRYOCAUTERY/ MILD DYSPLASIA PAST SURGICAL HISTORY OF March 2006 Abdominal abscess with anal fistula PRCTECT COMPL W/STOT/TOT COLCT W/VENEER JOINER BXS 2006 AP endoanal proctectomy SHOULDER ARTHROSCOPY/SURGERY Left 05/06/2020 Rotator cuff debridement, subacromial decompression/arthroplasty TONSILLECTOMY PRIMARY/SECONDARY <AGE 11 1986 Tonsillectomy FAMILY HISTORY Problem Relation Age of Onset Alcohol/Drug Mother Hypertension Mother COPD other (vascular disease) Mother other (sleep apnea) Mother other (heart murmur) Mother Alcohol/Drug Father Cancer Father liver Asthma Brother Hypertension Daughter Diabetes Maternal Grandmother Stroke Maternal Grandmother Heart Maternal Grandmother Emphysema Paternal Grandmother Diabetes Paternal Grandfather Macular Degen Paternal Grandfather Anesthesia Problems No Family History Social History Tobacco Use Smoking status: Former Smoker Packs/day: 1.00 Years: 16.00 Pack years: 16.00 Types: Cigarettes Quit date: 12/04/2006 Years since quittin.2 Smokeless tobacco: Never Used Vaping Use Vaping Use: Never used Substance Use Topics Alcohol use: No Drug use: No REVIEW OF SYSTEMS GENERAL: Negative for Malaise, significant weight loss, fever RESPIRATORY: Negative for cough, wheezing and shortness of breath CARDIOVASCULAR: Negative for chest pain, leg swelling and palpitations GI: Negative for abdominal discomfort, blood in stools or black stools and change in bowel habits : Negative for dysuria, frequency and incontinence MUSCULOSKELETAL: Negative for joint pain or swelling, back pain, and muscle pain. SKIN: Negative for lesions, rash, and itching. HEMATOLOGY/LYMPHOLOGY Negative for prolonged bleeding, bruising easily, and swollen nodes. ENDOCRINE: Negative for cold or heat intolerance, polyuria, polydipsia and goiter. NEURO: negative The remainder of the review of systems is noncontributory. Objective: Patient presents to clinic ambulating in [facility] Constitutional: Pt is a well developed 46 year old female who is alert, oriented, cooperative and in no apparent distress. Eyes: Following during examination. No redness or drainage. Respiratory: RR normal and nonlabored. Even breathing. No evidence of distress. Psychology: Patient is engaged during conversation. Normal affect and mood. Does not appear depressed or anxious. Vasc: DP palpable bilateral. Posterior tibial pulses are faint b/l. CFT is less than 5 seconds bilateral. Skin temperature is warm to cool proximal to distal bilateral. There is mild edema or varicosities noted. Hair growth present. Neuro: Protective sensation is intact to the foot and toes when tested with the 5.07 SWM bilateral.Vibratory sensation is intact at the hallux bilateral. - Significant neurological defecits. Derm: Inspection and palpation performed. Nails 1,2,5 right and 1,2,5 left are discolored-yellow, thick, crumbly, dystrophic and with subungal debris. There is ingrowing toenail of b/l hallux withoutinfection. Skin is of normal turgor and texture. Hyperkeratosis noted to not present. NO ulcerations, scars, verruca or other lesions noted. Ortho: Ankle joint DF is full with the knee extended and full with knee flexed. No pain or crepitusnoted. STJ, MTJ ROM are full and free of pain or crepitus. Muscle strength is 5/5 for dorsiflexors,plantarflexors, inverters, everters. Digital deformities include no. There is pain to plantar rightmedial calcaneal tubercle. 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 Patient was seen and evaluated. 2. Patient was instructed on the continued importance of diabetic foot care along with proper diet and keeping their blood sugar under control to prevent complications. Instructions given both oral and written. 3. Discussed nail deformity of b/l feet causing ingrown. Discussed options not limited to topical medication, oral medication, laser vs removal. Patient interested in removal. Will check pvr to evaluate for small vessel disease. Pending pvr, consider removal. If she wishes to remove more than 3, would do in the operating room under sedation. 4. Discussed heel pain. Recommend stretching, icing, inserts. If pain persists, consider steroid injection. Savanna Flores DPM * Lucretia Arnett - 02/22/2022 2:56 PM EDT AMB ROOMING INTAKE FLOWSHEET DATA Risk Screening Do you have concerns about personal safety or safety in the home?: No Pain Pain Level: 4 Pain Location: (bilateral great toes) Description: Stabbing Duration Amount of Time: 4 Duration Units: Weeks Frequency: Intermittent Intervention/Comfort measure: Other: See comment Comments: has tried removing herself without success. documented in this encounterV[facility] Administration03-29-2022 History of Present illness Narrative* Gricelda Jolley, BRAZER RESISTANCE - 02/08/2022 11:05 AM EDT Episode Visit Count: 2 Therapist That Will Oversee The Plan Of Care: Sánchez Bedolla Start of Care Date: 01/14/22 Onset Date: 01/15/16 Plan of Care Certification Date: 01/14/22 Next Certification Due Date: 02/14/22 Patient Identified by Name and Date of : Yes REHABILITATION AND SPORTS THERAPY PHYSICAL THERAPY TREATMENT NOTE ASSESSMENT: Sid Lezama tolerated the session with fatigue and expected muscle soreness. She is challenged with resisted wrist extension and 4th and 5th digit strengthening. Tightness noted in left extensor wad. The patient will continue to benefit from ongoing skilled physical therapy to progress toward set goals. PLAN FOR NEXT VISIT: continue strengthening SUBJECTIVE: Patient Reason for Visit: Patient has not been here due to awaiting authorization. Painranges 0-5/10 in left elbow since last visit. Patient states that her elbow Lets me know to stop doing thing. Patient states I am doing dishes and folding laundry. I am able to wash and dress myself. My daughter does the vacuuming. Pain: Pain Pain Level: 0 Pain Location: Elbow - Left Post Treatment Pain Post Treatment Pain Level: No Change OBJECTIVE MEASURES WITH LEVEL OF FUNCTION: security operations engineer strength , 2nd position R 32# L 44# TREATMENT: Therapeutic Exercise: 1: SciFit ,Level 1.3 , 5 minutes , change at hold 2: wrist flexion/extension stretch 3 x 20 seconds, with elbow flexed 3: wrist flexion/extension with 1 # x 10 each 4: Left wrist supination/pronation with 1 # x 10 5: digiflex, yellow x 10 then individual fingers x 10 each 6: yellow putty x 1 minutes Skilled Intervention: Patient was educated in proper exercise technique and purpose for exercises. Reviewed and educated patient on additions/changes for home exercise program as above (*). Skilled judgment was provided in selection of appropriate interventions. Correct performance of therapeutic exercises was facilitated with verbal and visual cuing. Manual Therapy: 1: supine left wrist extensor soft tissue mobilization Skilled Intervention: Manual skills to improve joint mobility, ROM, and decrease pain. Utilized anatomy knowledge of the therapist, and assessment of patient's response to intervention. Billing Therapeutic Exercise Treatment Minutes: 30 Manual TherapyTreatment Minutes: 13 Total Treatment Time Minutes (timed and untimed codes) : 46 Gricelda Jolley PTA documented in this encounterVeter[facility] Health Administration03-04-2022 History of Past illness Narrative* Problem Noted Date Resolved Date Lateral epicondylitis of left elbow 01/14/2022 04/04/2022 Right arm weakness 06/25/2021 09/17/2021 Decreased ROM of right shoulder 06/25/2021 09/17/2021 Tear of right rotator cuff 06/22/202106/22 Status post subacromial decompression 05/29/2020 09/17/2021 Plantar fasciitis 08/02/2019 09/17/2021 Sprain of wrist, left 02/18/2015 05/24/2018 Hypoglycemia 10/24/2011 03/08/2012 Contact dermatitis and other eczema, due to unspecified cause 10/18/2011 01/03/2017 Eczematous dermatitis: hands 11/23/201006/2013 Xerosis cutis 11/23/2010 02/18/2013 Depression 08/30/2010 11/27/2018 Mild dysplasia of cervix 10/27/2009 012 Impaired glucose tolerance test 01/31/2008 04/16/2008 Onychia and paronychia of toe 09/26/2007 Nonspecific abnormal results of liver function s uridy 08/24/2007 04/19/2011 Overview: AST 56, ALT 80 in 08-19: 85/79 on repeat ESR 29 in 08-19 HBsAg negative, HCV negative, NL iron studies in 08-19 Anemia, unspecified 01/10/2007 03/08/2012 Retention of urine, unspecified 01/01/2007 11/27/2018 Fibromyalgia 04/19/2011 documented as of this encounter (statuses as of 04/04/2022) [facility] History of Past illness Narrative* Problem Noted Date Resolved Date Lateral epicondylitis of left elbow 01/14/2022 04/04/2022 Right arm weakness 06/25/2021 09/17/2021 Decreased ROM of right shoulder 06/25/2021 09/17/2021 Tear of right rotator cuff 06/22/202106/22 Status post subacromial decompression 05/29/2020 09/17/2021 Plantar fasciitis 08/02/2019 09/17/2021 Sprain of wrist, left 02/18/2015 05/24/2018 Hypoglycemia 10/24/2011 03/08/2012 Contact dermatitis and other eczema, due to unspecified cause 10/18/2011 01/03/2017 Eczematous dermatitis: hands 11/23/201006/2013 Xerosis cutis 11/23/2010 02/18/2013 Depression 08/30/2010 11/27/2018 Mild dysplasia of cervix 10/27/2009 012 Impaired glucose tolerance test 01/31/2008 04/16/2008 Onychia and paronychia of toe 09/26/2007 Nonspecific abnormal results of liver function s uridy 08/24/2007 04/19/2011 Overview: AST 56, ALT 80 in 08-19: 85/79 on repeat ESR 29 in 08-19 HBsAg negative, HCV negative, NL iron studies in 08-19 Anemia, unspecified 01/10/2007 03/08/2012 Retention of urine, unspecified 01/01/2007 11/27/2018 Fibromyalgia 04/19/2011 documented as of this encounter (statuses as of 04/07/2022) [facility] History of Past illness Narrative* Problem Noted Date Resolved Date Lateral epicondylitis of left elbow 01/14/2022 04/04/2022 Right arm weakness 06/25/2021 09/17/2021 Decreased ROM of right shoulder 06/25/2021 09/17/2021 Tear of right rotator cuff 06/22/202106/22 Status post subacromial decompression 05/29/2020 09/17/2021 Plantar fasciitis 08/02/2019 09/17/2021 Sprain of wrist, left 02/18/2015 05/24/2018 Hypoglycemia 10/24/2011 03/08/2012 Contact dermatitis and other eczema, due to unspecified cause 10/18/2011 01/03/2017 Eczematous dermatitis: hands 11/23/201006/2013 Xerosis cutis 11/23/2010 02/18/2013 Depression 08/30/2010 11/27/2018 Mild dysplasia of cervix 10/27/2009 012 Impaired glucose tolerance test 01/31/2008 04/16/2008 Onychia and paronychia of toe 09/26/2007 Nonspecific abnormal results of liver function s uridy 08/24/2007 04/19/2011 Overview: AST 56, ALT 80 in 08-19: 85/79 on repeat ESR 29 in 08-19 HBsAg negative, HCV negative, NL iron studies in 08-19 Anemia, unspecified 01/10/2007 03/08/2012 Retention of urine, unspecified 01/01/2007 11/27/2018 Fibromyalgia 04/19/2011 documented as of this encounter (statuses as of 04/09/2022) [facility] of Past illness Narrative* Problem Noted Date Resolved Date Lateral epicondylitis of left elbow 01/14/2022 04/04/2022 Right arm weakness 06/25/2021 09/17/2021 Decreased ROM of right shoulder 06/25/2021 09/17/2021 Tear of right rotator cuff 06/22/202106/22 Status post subacromial decompression 05/29/2020 09/17/2021 Plantar fasciitis 08/02/2019 09/17/2021 Sprain of wrist, left 02/18/2015 05/24/2018 Hypoglycemia 10/24/2011 03/08/2012 Contact dermatitis and other eczema, due to unspecified cause 10/18/2011 01/03/2017 Eczematous dermatitis: hands 11/23/201006/2013 Xerosis cutis 11/23/2010 02/18/2013 Depression 08/30/2010 11/27/2018 Mild dysplasia of cervix 10/27/2009 012 Impaired glucose tolerance test 01/31/2008 04/16/2008 Onychia and paronychia of toe 09/26/2007 Nonspecific abnormal results of liver function s tudy 08/24/2007 04/19/2011 Overview: AST 56, ALT 80 in 08-19: 85/79 on repeat ESR 29 in 08-19 HBsAg negative, HCV negative, NL iron studies in 08-19 Anemia, unspecified 01/10/2007 03/08/2012 Retention of urine, unspecified 01/01/2007 11/27/2018 Fibromyalgia 04/19/2011 documented as of this encounter (statuses as of 04/09/2022) [facility] of Past illness Narrative* Problem Noted Date Resolved Date Lateral epicondylitis of left elbow 01/14/2022 04/04/2022 Right arm weakness 06/25/2021 09/17/2021 Decreased ROM of right shoulder 06/25/2021 09/17/2021 Tear of right rotator cuff 06/22/202106/22 Status post subacromial decompression 05/29/2020 09/17/2021 Plantar fasciitis 08/02/2019 09/17/2021 Sprain of wrist, left 02/18/2015 05/24/2018 Hypoglycemia 10/24/2011 03/08/2012 Contact dermatitis and other eczema, due to unspecified cause 10/18/2011 01/03/2017 Eczematous dermatitis: hands 11/23/201006/2013 Xerosis cutis 11/23/2010 02/18/2013 Depression 08/30/2010 11/27/2018 Mild dysplasia of cervix 10/27/2009 012 Impaired glucose tolerance test 01/31/2008 04/16/2008 Onychia and paronychia of toe 09/26/2007 Nonspecific abnormal results of liver function s urielizabeth 08/24/2007 04/19/2011 Overview: AST 56, ALT 80 in 08-19: 85/79 on repeat ESR 29 in 08-19 HBsAg negative, HCV negative, NL iron studies in 08-19 Anemia, unspecified 01/10/2007 03/08/2012 Retention of urine, unspecified 01/01/2007 11/27/2018 Fibromyalgia 04/19/2011 documented as of this encounter (statuses as of 04/19/2022) [facility] History of Past illness Narrative* Problem Noted Date Resolved Date Lateral epicondylitis of left elbow 01/14/2022 04/04/2022 Right arm weakness 06/25/2021 09/17/2021 Decreased ROM of right shoulder 06/25/2021 09/17/2021 Tear of right rotator cuff 06/22/202106/22 Status post subacromial decompression 05/29/2020 09/17/2021 Plantar fasciitis 08/02/2019 09/17/2021 Sprain of wrist, left 02/18/2015 05/24/2018 Hypoglycemia 10/24/2011 03/08/2012 Contact dermatitis and other eczema, due to unspecified cause 10/18/2011 01/03/2017 Eczematous dermatitis: hands 11/23/201006/2013 Xerosis cutis 11/23/2010 02/18/2013 Depression 08/30/2010 11/27/2018 Mild dysplasia of cervix 10/27/2009 012 Impaired glucose tolerance test 01/31/2008 04/16/2008 Onychia and paronychia of toe 09/26/2007 Nonspecific abnormal results of liver function s tudy 08/24/2007 04/19/2011 Overview: AST 56, ALT 80 in 08-19: 85/79 on repeat ESR 29 in 08-19 HBsAg negative, HCV negative, NL iron studies in 08-19 Anemia, unspecified 01/10/2007 03/08/2012 Retention of urine, unspecified 01/01/2007 11/27/2018 Fibromyalgia 04/19/2011 documented as of this encounter (statuses as of 04/19/2022) [facility] History of Past illness Narrative* Problem Noted Date Resolved Date Lateral epicondylitis of left elbow 01/14/2022 04/04/2022 Right arm weakness 06/25/2021 09/17/2021 Decreased ROM of right shoulder 06/25/2021 09/17/2021 Tear of right rotator cuff 06/22/202106/22 Status post subacromial decompression 05/29/2020 09/17/2021 Plantar fasciitis 08/02/2019 09/17/2021 Sprain of wrist, left 02/18/2015 05/24/2018 Hypoglycemia 10/24/2011 03/08/2012 Contact dermatitis and other eczema, due to unspecified cause 10/18/2011 01/03/2017 Eczematous dermatitis: hands 11/23/201006/2013 Xerosis cutis 11/23/2010 02/18/2013 Depression 08/30/2010 11/27/2018 Mild dysplasia of cervix 10/27/2009 012 Impaired glucose tolerance test 01/31/2008 04/16/2008 Onychia and paronychia of toe 09/26/2007 Nonspecific abnormal results of liver function s uridy 08/24/2007 04/19/2011 Overview: AST 56, ALT 80 in 08-19: 85/79 on repeat ESR 29 in 08-19 HBsAg negative, HCV negative, NL iron studies in 08-19 Anemia, unspecified 01/10/2007 03/08/2012 Retention of urine, unspecified 01/01/2007 11/27/2018 Fibromyalgia 04/19/2011 documented as of this encounter (statuses as of 04/20/2022) [facility] History of Past illness Narrative* Problem Noted Date Resolved Date Lateral epicondylitis of left elbow 01/14/2022 04/04/2022 Right arm weakness 06/25/2021 09/17/2021 Decreased ROM of right shoulder 06/25/2021 09/17/2021 Tear of right rotator cuff 06/22/202106/22 Status post subacromial decompression 05/29/2020 09/17/2021 Plantar fasciitis 08/02/2019 09/17/2021 Sprain of wrist, left 02/18/2015 05/24/2018 Hypoglycemia 10/24/2011 03/08/2012 Contact dermatitis and other eczema, due to unspecified cause 10/18/2011 01/03/2017 Eczematous dermatitis: hands 11/23/201006/2013 Xerosis cutis 11/23/2010 02/18/2013 Depression 08/30/2010 11/27/2018 Mild dysplasia of cervix 10/27/2009 012 Impaired glucose tolerance test 01/31/2008 04/16/2008 Onychia and paronychia of toe 09/26/2007 Nonspecific abnormal results of liver function s uridy 08/24/2007 04/19/2011 Overview: AST 56, ALT 80 in 08-19: 85/79 on repeat ESR 29 in 08-19 HBsAg negative, HCV negative, NL iron studies in 08-19 Anemia, unspecified 01/10/2007 03/08/2012 Retention of urine, unspecified 01/01/2007 11/27/2018 Fibromyalgia 04/19/2011 documented as of this encounter (statuses as of 04/21/2022) [facility] History of Past illness Narrative* Problem Noted Date Resolved Date Lateral epicondylitis of left elbow 01/14/2022 04/04/2022 Right arm weakness 06/25/2021 09/17/2021 Decreased ROM of right shoulder 06/25/2021 09/17/2021 Tear of right rotator cuff 06/22/202106/22 Status post subacromial decompression 05/29/2020 09/17/2021 Plantar fasciitis 08/02/2019 09/17/2021 Sprain of wrist, left 02/18/2015 05/24/2018 Hypoglycemia 10/24/2011 03/08/2012 Contact dermatitis and other eczema, due to unspecified cause 10/18/2011 01/03/2017 Eczematous dermatitis: hands 11/23/201006/2013 Xerosis cutis 11/23/2010 02/18/2013 Depression 08/30/2010 11/27/2018 Mild dysplasia of cervix 10/27/2009 012 Impaired glucose tolerance test 01/31/2008 04/16/2008 Onychia and paronychia of toe 09/26/2007 Nonspecific abnormal results of liver function s uridy 08/24/2007 04/19/2011 Overview: AST 56, ALT 80 in 08-19: 85/79 on repeat ESR 29 in 08-19 HBsAg negative, HCV negative, NL iron studies in 08-19 Anemia, unspecified 01/10/2007 03/08/2012 Retention of urine, unspecified 01/01/2007 11/27/2018 Fibromyalgia 04/19/2011 documented as of this encounter (statuses as of 04/22/2022) [facility] History of Past illness Narrative* Problem Noted Date Resolved Date Lateral epicondylitis of left elbow 01/14/2022 04/04/2022 Right arm weakness 06/25/2021 09/17/2021 Decreased ROM of right shoulder 06/25/2021 09/17/2021 Tear of right rotator cuff 06/22/202106/22 Status post subacromial decompression 05/29/2020 09/17/2021 Plantar fasciitis 08/02/2019 09/17/2021 Sprain of wrist, left 02/18/2015 05/24/2018 Hypoglycemia 10/24/2011 03/08/2012 Contact dermatitis and other eczema, due to unspecified cause 10/18/2011 01/03/2017 Eczematous dermatitis: hands 11/23/201006/2013 Xerosis cutis 11/23/2010 02/18/2013 Depression 08/30/2010 11/27/2018 Mild dysplasia of cervix 10/27/2009 012 Impaired glucose tolerance test 01/31/2008 04/16/2008 Onychia and paronychia of toe 09/26/2007 Nonspecific abnormal results of liver function s tudy 08/24/2007 04/19/2011 Overview: AST 56, ALT 80 in 08-19: 85/79 on repeat ESR 29 in 08-19 HBsAg negative, HCV negative, NL iron studies in 08-19 Anemia, unspecified 01/10/2007 03/08/2012 Retention of urine, unspecified 01/01/2007 11/27/2018 Fibromyalgia 04/19/2011 documented as of this encounter (statuses as of 04/27/2022) [facility] History of Past illness Narrative* Problem Noted Date Resolved Date Lateral epicondylitis of left elbow 01/14/2022 04/04/2022 Right arm weakness 06/25/2021 09/17/2021 Decreased ROM of right shoulder 06/25/2021 09/17/2021 Tear of right rotator cuff 06/22/202106/22 Status post subacromial decompression 05/29/2020 09/17/2021 Plantar fasciitis 08/02/2019 09/17/2021 Sprain of wrist, left 02/18/2015 05/24/2018 Hypoglycemia 10/24/2011 03/08/2012 Contact dermatitis and other eczema, due to unspecified cause 10/18/2011 01/03/2017 Eczematous dermatitis: hands 11/23/201006/2013 Xerosis cutis 11/23/2010 02/18/2013 Depression 08/30/2010 11/27/2018 Mild dysplasia of cervix 10/27/2009 012 Impaired glucose tolerance test 01/31/2008 04/16/2008 Onychia and paronychia of toe 09/26/2007 Nonspecific abnormal results of liver function s tudy 08/24/2007 04/19/2011 Overview: AST 56, ALT 80 in 08-19: 85/79 on repeat ESR 29 in 08-19 HBsAg negative, HCV negative, NL iron studies in 08-19 Anemia, unspecified 01/10/2007 03/08/2012 Retention of urine, unspecified 01/01/2007 11/27/2018 Fibromyalgia 04/19/2011 documented as of this encounter (statuses as of 04/29/2022) [facility] History of Past illness Narrative* Problem Noted Date Resolved Date Lateral epicondylitis of left elbow 01/14/2022 04/04/2022 Right arm weakness 06/25/2021 09/17/2021 Decreased ROM of right shoulder 06/25/2021 09/17/2021 Tear of right rotator cuff 06/22/202106/22 Status post subacromial decompression 05/29/2020 09/17/2021 Plantar fasciitis 08/02/2019 09/17/2021 Sprain of wrist, left 02/18/2015 05/24/2018 Hypoglycemia 10/24/2011 03/08/2012 Contact dermatitis and other eczema, due to unspecified cause 10/18/2011 01/03/2017 Eczematous dermatitis: hands 11/23/201006/2013 Xerosis cutis 11/23/2010 02/18/2013 Depression 08/30/2010 11/27/2018 Mild dysplasia of cervix 10/27/2009 012 Impaired glucose tolerance test 01/31/2008 04/16/2008 Onychia and paronychia of toe 09/26/2007 Nonspecific abnormal results of liver function s marsha 08/24/2007 04/19/2011 Overview: AST 56, ALT 80 in 08-19: 85/79 on repeat ESR 29 in 08-19 HBsAg negative, HCV negative, NL iron studies in 08-19 Anemia, unspecified 01/10/2007 03/08/2012 Retention of urine, unspecified 01/01/2007 11/27/2018 Fibromyalgia 04/19/2011 documented as of this encounter (statuses as of 05/03/2022) [facility] History of Past illness Narrative* Problem Noted Date Resolved Date Lateral epicondylitis of left elbow 01/14/2022 04/04/2022 Right arm weakness 06/25/2021 09/17/2021 Decreased ROM of right shoulder 06/25/2021 09/17/2021 Tear of right rotator cuff 06/22/202106/22 Status post subacromial decompression 05/29/2020 09/17/2021 Plantar fasciitis 08/02/2019 09/17/2021 Sprain of wrist, left 02/18/2015 05/24/2018 Hypoglycemia 10/24/2011 03/08/2012 Contact dermatitis and other eczema, due to unspecified cause 10/18/2011 01/03/2017 Eczematous dermatitis: hands 11/23/201006/2013 Xerosis cutis 11/23/2010 02/18/2013 Depression 08/30/2010 11/27/2018 Mild dysplasia of cervix 10/27/2009 012 Impaired glucose tolerance test 01/31/2008 04/16/2008 Onychia and paronychia of toe 09/26/2007 Nonspecific abnormal results of liver function s marsha 08/24/2007 04/19/2011 Overview: AST 56, ALT 80 in 08-19: 85/79 on repeat ESR 29 in 08-19 HBsAg negative, HCV negative, NL iron studies in 08-19 Anemia, unspecified 01/10/2007 03/08/2012 Retention of urine, unspecified 01/01/2007 11/27/2018 Fibromyalgia 04/19/2011 documented as of this encounter (statuses as of 05/10/2022) [facility] History of Past illness Narrative* Problem Noted Date Resolved Date Lateral epicondylitis of left elbow 01/14/2022 04/04/2022 Right arm weakness 06/25/2021 09/17/2021 Decreased ROM of right shoulder 06/25/2021 09/17/2021 Tear of right rotator cuff 06/22/202106/22 Status post subacromial decompression 05/29/2020 09/17/2021 Plantar fasciitis 08/02/2019 09/17/2021 Sprain of wrist, left 02/18/2015 05/24/2018 Hypoglycemia 10/24/2011 03/08/2012 Contact dermatitis and other eczema, due to unspecified cause 10/18/2011 01/03/2017 Eczematous dermatitis: hands 11/23/201006/2013 Xerosis cutis 11/23/2010 02/18/2013 Depression 08/30/2010 11/27/2018 Mild dysplasia of cervix 10/27/2009 012 Impaired glucose tolerance test 01/31/2008 04/16/2008 Onychia and paronychia of toe 09/26/2007 Nonspecific abnormal results of liver function s tudy 08/24/2007 04/19/2011 Overview: AST 56, ALT 80 in 08-19: 85/79 on repeat ESR 29 in 08-19 HBsAg negative, HCV negative, NL iron studies in 08-19 Anemia, unspecified 01/10/2007 03/08/2012 Retention of urine, unspecified 01/01/2007 11/27/2018 Fibromyalgia 04/19/2011 documented as of this encounter (statuses as of 05/10/2022) [facility] History of Past illness Narrative* Problem Noted Date Resolved Date Lateral epicondylitis of left elbow 01/14/2022 04/04/2022 Right arm weakness 06/25/2021 09/17/2021 Decreased ROM of right shoulder 06/25/2021 09/17/2021 Tear of right rotator cuff 06/22/202106/22 Status post subacromial decompression 05/29/2020 09/17/2021 Plantar fasciitis 08/02/2019 09/17/2021 Sprain of wrist, left 02/18/2015 05/24/2018 Hypoglycemia 10/24/2011 03/08/2012 Contact dermatitis and other eczema, due to unspecified cause 10/18/2011 01/03/2017 Eczematous dermatitis: hands 11/23/201006/2013 Xerosis cutis 11/23/2010 02/18/2013 Depression 08/30/2010 11/27/2018 Mild dysplasia of cervix 10/27/2009 012 Impaired glucose tolerance test 01/31/2008 04/16/2008 Onychia and paronychia of toe 09/26/2007 Nonspecific abnormal results of liver function s tudy 08/24/2007 04/19/2011 Overview: AST 56, ALT 80 in 08-19: 85/79 on repeat ESR 29 in 08-19 HBsAg negative, HCV negative, NL iron studies in 08-19 Anemia, unspecified 01/10/2007 03/08/2012 Retention of urine, unspecified 01/01/2007 11/27/2018 Fibromyalgia 04/19/2011 documented as of this encounter (statuses as of 05/11/2022) [facility] History of Past illness Narrative* Problem Noted Date Resolved Date Lateral epicondylitis of left elbow 01/14/2022 04/04/2022 Right arm weakness 06/25/2021 09/17/2021 Decreased ROM of right shoulder 06/25/2021 09/17/2021 Tear of right rotator cuff 06/22/202106/22 Status post subacromial decompression 05/29/2020 09/17/2021 Plantar fasciitis 08/02/2019 09/17/2021 Sprain of wrist, left 02/18/2015 05/24/2018 Hypoglycemia 10/24/2011 03/08/2012 Contact dermatitis and other eczema, due to unspecified cause 10/18/2011 01/03/2017 Eczematous dermatitis: hands 11/23/201006/2013 Xerosis cutis 11/23/2010 02/18/2013 Depression 08/30/2010 11/27/2018 Mild dysplasia of cervix 10/27/2009 012 Impaired glucose tolerance test 01/31/2008 04/16/2008 Onychia and paronychia of toe 09/26/2007 Nonspecific abnormal results of liver function s marsha 08/24/2007 04/19/2011 Overview: AST 56, ALT 80 in 08-19: 85/79 on repeat ESR 29 in 08-19 HBsAg negative, HCV negative, NL iron studies in 08-19 Anemia, unspecified 01/10/2007 03/08/2012 Retention of urine, unspecified 01/01/2007 11/27/2018 Fibromyalgia 04/19/2011 documented as of this encounter (statuses as of 05/17/2022) [facility] History of Past illness Narrative* Problem Noted Date Resolved Date Lateral epicondylitis of left elbow 01/14/2022 04/04/2022 Right arm weakness 06/25/2021 09/17/2021 Decreased ROM of right shoulder 06/25/2021 09/17/2021 Tear of right rotator cuff 06/22/202106/22 Status post subacromial decompression 05/29/2020 09/17/2021 Plantar fasciitis 08/02/2019 09/17/2021 Sprain of wrist, left 02/18/2015 05/24/2018 Hypoglycemia 10/24/2011 03/08/2012 Contact dermatitis and other eczema, due to unspecified cause 10/18/2011 01/03/2017 Eczematous dermatitis: hands 11/23/201006/2013 Xerosis cutis 11/23/2010 02/18/2013 Depression 08/30/2010 11/27/2018 Mild dysplasia of cervix 10/27/2009 012 Impaired glucose tolerance test 01/31/2008 04/16/2008 Onychia and paronychia of toe 09/26/2007 Nonspecific abnormal results of liver function s marsha 08/24/2007 04/19/2011 Overview: AST 56, ALT 80 in 08-19: 85/79 on repeat ESR 29 in 08-19 HBsAg negative, HCV negative, NL iron studies in 08-19 Anemia, unspecified 01/10/2007 03/08/2012 Retention of urine, unspecified 01/01/2007 11/27/2018 Fibromyalgia 04/19/2011 documented as of this encounter (statuses as of 05/18/2022) [facility] History of Past illness Narrative* Problem Noted Date Resolved Date Lateral epicondylitis of left elbow 01/14/2022 04/04/2022 Right arm weakness 06/25/2021 09/17/2021 Decreased ROM of right shoulder 06/25/2021 09/17/2021 Tear of right rotator cuff 06/22/202106/22 Status post subacromial decompression 05/29/2020 09/17/2021 Plantar fasciitis 08/02/2019 09/17/2021 Sprain of wrist, left 02/18/2015 05/24/2018 Hypoglycemia 10/24/2011 03/08/2012 Contact dermatitis and other eczema, due to unspecified cause 10/18/2011 01/03/2017 Eczematous dermatitis: hands 11/23/201006/2013 Xerosis cutis 11/23/2010 02/18/2013 Depression 08/30/2010 11/27/2018 Mild dysplasia of cervix 10/27/2009 012 Impaired glucose tolerance test 01/31/2008 04/16/2008 Onychia and paronychia of toe 09/26/2007 Nonspecific abnormal results of liver function s tudy 08/24/2007 04/19/2011 Overview: AST 56, ALT 80 in 08-19: 85/79 on repeat ESR 29 in 08-19 HBsAg negative, HCV negative, NL iron studies in 08-19 Anemia, unspecified 01/10/2007 03/08/2012 Retention of urine, unspecified 01/01/2007 11/27/2018 Fibromyalgia 04/19/2011 documented as of this encounter (statuses as of 05/19/2022) [facility] History of Past illness Narrative* Problem Noted Date Resolved Date Lateral epicondylitis of left elbow 01/14/2022 04/04/2022 Right arm weakness 06/25/2021 09/17/2021 Decreased ROM of right shoulder 06/25/2021 09/17/2021 Tear of right rotator cuff 06/22/202106/22 Status post subacromial decompression 05/29/2020 09/17/2021 Plantar fasciitis 08/02/2019 09/17/2021 Sprain of wrist, left 02/18/2015 05/24/2018 Hypoglycemia 10/24/2011 03/08/2012 Contact dermatitis and other eczema, due to unspecified cause 10/18/2011 01/03/2017 Eczematous dermatitis: hands 11/23/201006/2013 Xerosis cutis 11/23/2010 02/18/2013 Depression 08/30/2010 11/27/2018 Mild dysplasia of cervix 10/27/2009 012 Impaired glucose tolerance test 01/31/2008 04/16/2008 Onychia and paronychia of toe 09/26/2007 Nonspecific abnormal results of liver function s tudy 08/24/2007 04/19/2011 Overview: AST 56, ALT 80 in 08-19: 85/79 on repeat ESR 29 in 08-19 HBsAg negative, HCV negative, NL iron studies in 08-19 Anemia, unspecified 01/10/2007 03/08/2012 Retention of urine, unspecified 01/01/2007 11/27/2018 Fibromyalgia 04/19/2011 documented as of this encounter (statuses as of 05/24/2022) [facility] History of Past illness Narrative* Problem Noted Date Resolved Date Lateral epicondylitis of left elbow 01/14/2022 04/04/2022 Right arm weakness 06/25/2021 09/17/2021 Decreased ROM of right shoulder 06/25/2021 09/17/2021 Tear of right rotator cuff 06/22/202106/22 Status post subacromial decompression 05/29/2020 09/17/2021 Plantar fasciitis 08/02/2019 09/17/2021 Sprain of wrist, left 02/18/2015 05/24/2018 Hypoglycemia 10/24/2011 03/08/2012 Contact dermatitis and other eczema, due to unspecified cause 10/18/2011 01/03/2017 Eczematous dermatitis: hands 11/23/201006/2013 Xerosis cutis 11/23/2010 02/18/2013 Depression 08/30/2010 11/27/2018 Mild dysplasia of cervix 10/27/2009 012 Impaired glucose tolerance test 01/31/2008 04/16/2008 Onychia and paronychia of toe 09/26/2007 Nonspecific abnormal results of liver function s marsha 08/24/2007 04/19/2011 Overview: AST 56, ALT 80 in 08-19: 85/79 on repeat ESR 29 in 08-19 HBsAg negative, HCV negative, NL iron studies in 08-19 Anemia, unspecified 01/10/2007 03/08/2012 Retention of urine, unspecified 01/01/2007 11/27/2018 Fibromyalgia 04/19/2011 documented as of this encounter (statuses as of 05/24/2022) [facility] History of Past illness Narrative* Problem Noted Date Resolved Date Lateral epicondylitis of left elbow 01/14/2022 04/04/2022 Right arm weakness 06/25/2021 09/17/2021 Decreased ROM of right shoulder 06/25/2021 09/17/2021 Tear of right rotator cuff 06/22/202106/22 Status post subacromial decompression 05/29/2020 09/17/2021 Plantar fasciitis 08/02/2019 09/17/2021 Sprain of wrist, left 02/18/2015 05/24/2018 Hypoglycemia 10/24/2011 03/08/2012 Contact dermatitis and other eczema, due to unspecified cause 10/18/2011 01/03/2017 Eczematous dermatitis: hands 11/23/201006/2013 Xerosis cutis 11/23/2010 02/18/2013 Depression 08/30/2010 11/27/2018 Mild dysplasia of cervix 10/27/2009 012 Impaired glucose tolerance test 01/31/2008 04/16/2008 Onychia and paronychia of toe 09/26/2007 Nonspecific abnormal results of liver function s marsha 08/24/2007 04/19/2011 Overview: AST 56, ALT 80 in 08-19: 85/79 on repeat ESR 29 in 08-19 HBsAg negative, HCV negative, NL iron studies in 08-19 Anemia, unspecified 01/10/2007 03/08/2012 Retention of urine, unspecified 01/01/2007 11/27/2018 Fibromyalgia 04/19/2011 documented as of this encounter (statuses as of 05/24/2022) [facility] History of Past illness Narrative* Problem Noted Date Resolved Date Lateral epicondylitis of left elbow 01/14/2022 04/04/2022 Right arm weakness 06/25/2021 09/17/2021 Decreased ROM of right shoulder 06/25/2021 09/17/2021 Tear of right rotator cuff 06/22/202106/22 Status post subacromial decompression 05/29/2020 09/17/2021 Plantar fasciitis 08/02/2019 09/17/2021 Sprain of wrist, left 02/18/2015 05/24/2018 Hypoglycemia 10/24/2011 03/08/2012 Contact dermatitis and other eczema, due to unspecified cause 10/18/2011 01/03/2017 Eczematous dermatitis: hands 11/23/201006/2013 Xerosis cutis 11/23/2010 02/18/2013 Depression 08/30/2010 11/27/2018 Mild dysplasia of cervix 10/27/2009 012 Impaired glucose tolerance test 01/31/2008 04/16/2008 Onychia and paronychia of toe 09/26/2007 Nonspecific abnormal results of liver function s tudy 08/24/2007 04/19/2011 Overview: AST 56, ALT 80 in 08-19: 85/79 on repeat ESR 29 in 08-19 HBsAg negative, HCV negative, NL iron studies in 08-19 Anemia, unspecified 01/10/2007 03/08/2012 Retention of urine, unspecified 01/01/2007 11/27/2018 Fibromyalgia 04/19/2011 documented as of this encounter (statuses as of 05/27/2022) [facility] History of Past illness Narrative* Problem Noted Date Resolved Date Lateral epicondylitis of left elbow 01/14/2022 04/04/2022 Right arm weakness 06/25/2021 09/17/2021 Decreased ROM of right shoulder 06/25/2021 09/17/2021 Tear of right rotator cuff 06/22/202106/22 Status post subacromial decompression 05/29/2020 09/17/2021 Plantar fasciitis 08/02/2019 09/17/2021 Sprain of wrist, left 02/18/2015 05/24/2018 Hypoglycemia 10/24/2011 03/08/2012 Contact dermatitis and other eczema, due to unspecified cause 10/18/2011 01/03/2017 Eczematous dermatitis: hands 11/23/201006/2013 Xerosis cutis 11/23/2010 02/18/2013 Depression 08/30/2010 11/27/2018 Mild dysplasia of cervix 10/27/2009 012 Impaired glucose tolerance test 01/31/2008 04/16/2008 Onychia and paronychia of toe 09/26/2007 Nonspecific abnormal results of liver function s tudy 08/24/2007 04/19/2011 Overview: AST 56, ALT 80 in 08-19: 85/79 on repeat ESR 29 in 08-19 HBsAg negative, HCV negative, NL iron studies in 08-19 Anemia, unspecified 01/10/2007 03/08/2012 Retention of urine, unspecified 01/01/2007 11/27/2018 Fibromyalgia 04/19/2011 documented as of this encounter (statuses as of 05/31/2022) [facility] History of Past illness Narrative* Problem Noted Date Resolved Date Lateral epicondylitis of left elbow 01/14/2022 04/04/2022 Right arm weakness 06/25/2021 09/17/2021 Decreased ROM of right shoulder 06/25/2021 09/17/2021 Tear of right rotator cuff 06/22/202106/22 Status post subacromial decompression 05/29/2020 09/17/2021 Plantar fasciitis 08/02/2019 09/17/2021 Sprain of wrist, left 02/18/2015 05/24/2018 Hypoglycemia 10/24/2011 03/08/2012 Contact dermatitis and other eczema, due to unspecified cause 10/18/2011 01/03/2017 Eczematous dermatitis: hands 11/23/201006/2013 Xerosis cutis 11/23/2010 02/18/2013 Depression 08/30/2010 11/27/2018 Mild dysplasia of cervix 10/27/2009 012 Impaired glucose tolerance test 01/31/2008 04/16/2008 Onychia and paronychia of toe 09/26/2007 Nonspecific abnormal results of liver function s marsha 08/24/2007 04/19/2011 Overview: AST 56, ALT 80 in 08-19: 85/79 on repeat ESR 29 in 08-19 HBsAg negative, HCV negative, NL iron studies in 08-19 Anemia, unspecified 01/10/2007 03/08/2012 Retention of urine, unspecified 01/01/2007 11/27/2018 Fibromyalgia 04/19/2011 documented as of this encounter (statuses as of 06/01/2022) [facility] History of Past illness Narrative* Problem Noted Date Resolved Date Lateral epicondylitis of left elbow 01/14/2022 04/04/2022 Right arm weakness 06/25/2021 09/17/2021 Decreased ROM of right shoulder 06/25/2021 09/17/2021 Tear of right rotator cuff 06/22/202106/22 Status post subacromial decompression 05/29/2020 09/17/2021 Plantar fasciitis 08/02/2019 09/17/2021 Sprain of wrist, left 02/18/2015 05/24/2018 Hypoglycemia 10/24/2011 03/08/2012 Contact dermatitis and other eczema, due to unspecified cause 10/18/2011 01/03/2017 Eczematous dermatitis: hands 11/23/201006/2013 Xerosis cutis 11/23/2010 02/18/2013 Depression 08/30/2010 11/27/2018 Mild dysplasia of cervix 10/27/2009 012 Impaired glucose tolerance test 01/31/2008 04/16/2008 Onychia and paronychia of toe 09/26/2007 Nonspecific abnormal results of liver function s marsha 08/24/2007 04/19/2011 Overview: AST 56, ALT 80 in 08-19: 85/79 on repeat ESR 29 in 08-19 HBsAg negative, HCV negative, NL iron studies in 08-19 Anemia, unspecified 01/10/2007 03/08/2012 Retention of urine, unspecified 01/01/2007 11/27/2018 Fibromyalgia 04/19/2011 documented as of this encounter (statuses as of 06/06/2022) [facility]22 History of Past illness Narrative* Problem Noted Date Resolved Date Lateral epicondylitis of left elbow 01/14/2022 04/04/2022 Right arm weakness 06/25/2021 09/17/2021 Decreased ROM of right shoulder 06/25/2021 09/17/2021 Tear of right rotator cuff 06/22/202106/22 Status post subacromial decompression 05/29/2020 09/17/2021 Plantar fasciitis 08/02/2019 09/17/2021 Sprain of wrist, left 02/18/2015 05/24/2018 Hypoglycemia 10/24/2011 03/08/2012 Contact dermatitis and other eczema, due to unspecified cause 10/18/2011 01/03/2017 Eczematous dermatitis: hands 11/23/201006/2013 Xerosis cutis 11/23/2010 02/18/2013 Depression 08/30/2010 11/27/2018 Mild dysplasia of cervix 10/27/2009 012 Impaired glucose tolerance test 01/31/2008 04/16/2008 Onychia and paronychia of toe 09/26/2007 Nonspecific abnormal results of liver function s uridy 08/24/2007 04/19/2011 Overview: AST 56, ALT 80 in 08-19: 85/79 on repeat ESR 29 in 08-19 HBsAg negative, HCV negative, NL iron studies in 08-19 Anemia, unspecified 01/10/2007 03/08/2012 Retention of urine, unspecified 01/01/2007 11/27/2018 Fibromyalgia 04/19/2011 documented as of this encounter (statuses as of 06/07/2022) [facility] History of Past illness Narrative* Problem Noted Date Resolved Date Lateral epicondylitis of left elbow 01/14/2022 04/04/2022 Right arm weakness 06/25/2021 09/17/2021 Decreased ROM of right shoulder 06/25/2021 09/17/2021 Tear of right rotator cuff 06/22/202106/22 Status post subacromial decompression 05/29/2020 09/17/2021 Plantar fasciitis 08/02/2019 09/17/2021 Sprain of wrist, left 02/18/2015 05/24/2018 Hypoglycemia 10/24/2011 03/08/2012 Contact dermatitis and other eczema, due to unspecified cause 10/18/2011 01/03/2017 Eczematous dermatitis: hands 11/23/201006/2013 Xerosis cutis 11/23/2010 02/18/2013 Depression 08/30/2010 11/27/2018 Mild dysplasia of cervix 10/27/2009 012 Impaired glucose tolerance test 01/31/2008 04/16/2008 Onychia and paronychia of toe 09/26/2007 Nonspecific abnormal results of liver function s tudy 08/24/2007 04/19/2011 Overview: AST 56, ALT 80 in 08-19: 85/79 on repeat ESR 29 in 08-19 HBsAg negative, HCV negative, NL iron studies in 08-19 Anemia, unspecified 01/10/2007 03/08/2012 Retention of urine, unspecified 01/01/2007 11/27/2018 Fibromyalgia 04/19/2011 documented as of this encounter (statuses as of 06/16/2022) [facility] History of Past illness Narrative* Problem Noted Date Resolved Date Lateral epicondylitis of left elbow 01/14/2022 04/04/2022 Right arm weakness 06/25/2021 09/17/2021 Decreased ROM of right shoulder 06/25/2021 09/17/2021 Tear of right rotator cuff 06/22/202106/22 Status post subacromial decompression 05/29/2020 09/17/2021 Plantar fasciitis 08/02/2019 09/17/2021 Sprain of wrist, left 02/18/2015 05/24/2018 Hypoglycemia 10/24/2011 03/08/2012 Contact dermatitis and other eczema, due to unspecified cause 10/18/2011 01/03/2017 Eczematous dermatitis: hands 11/23/201006/2013 Xerosis cutis 11/23/2010 02/18/2013 Depression 08/30/2010 11/27/2018 Mild dysplasia of cervix 10/27/2009 012 Impaired glucose tolerance test 01/31/2008 04/16/2008 Onychia and paronychia of toe 09/26/2007 Nonspecific abnormal results of liver function s marsha 08/24/2007 04/19/2011 Overview: AST 56, ALT 80 in 08-19: 85/79 on repeat ESR 29 in 08-19 HBsAg negative, HCV negative, NL iron studies in 08-19 Anemia, unspecified 01/10/2007 03/08/2012 Retention of urine, unspecified 01/01/2007 11/27/2018 Fibromyalgia 04/19/2011 documented as of this encounter (statuses as of 06/16/2022) [facility] History of Past illness Narrative* Problem Noted Date Resolved Date Lateral epicondylitis of left elbow 01/14/2022 04/04/2022 Right arm weakness 06/25/2021 09/17/2021 Decreased ROM of right shoulder 06/25/2021 09/17/2021 Tear of right rotator cuff 06/22/202106/22 Status post subacromial decompression 05/29/2020 09/17/2021 Plantar fasciitis 08/02/2019 09/17/2021 Sprain of wrist, left 02/18/2015 05/24/2018 Hypoglycemia 10/24/2011 03/08/2012 Contact dermatitis and other eczema, due to unspecified cause 10/18/2011 01/03/2017 Eczematous dermatitis: hands 11/23/201006/2013 Xerosis cutis 11/23/2010 02/18/2013 Depression 08/30/2010 11/27/2018 Mild dysplasia of cervix 10/27/2009 012 Impaired glucose tolerance test 01/31/2008 04/16/2008 Onychia and paronychia of toe 09/26/2007 Nonspecific abnormal results of liver function s marsha 08/24/2007 04/19/2011 Overview: AST 56, ALT 80 in 08-19: 85/79 on repeat ESR 29 in 08-19 HBsAg negative, HCV negative, NL iron studies in 08-19 Anemia, unspecified 01/10/2007 03/08/2012 Retention of urine, unspecified 01/01/2007 11/27/2018 Fibromyalgia 04/19/2011 documented as of this encounter (statuses as of 06/24/2022) [facility] History of Past illness Narrative* Problem Noted Date Resolved Date Lateral epicondylitis of left elbow 01/14/2022 04/04/2022 Right arm weakness 06/25/2021 09/17/2021 Decreased ROM of right shoulder 06/25/2021 09/17/2021 Tear of right rotator cuff 06/22/202106/22 Status post subacromial decompression 05/29/2020 09/17/2021 Plantar fasciitis 08/02/2019 09/17/2021 Sprain of wrist, left 02/18/2015 05/24/2018 Hypoglycemia 10/24/2011 03/08/2012 Contact dermatitis and other eczema, due to unspecified cause 10/18/2011 01/03/2017 Eczematous dermatitis: hands 11/23/201006/2013 Xerosis cutis 11/23/2010 02/18/2013 Depression 08/30/2010 11/27/2018 Mild dysplasia of cervix 10/27/2009 012 Impaired glucose tolerance test 01/31/2008 04/16/2008 Onychia and paronychia of toe 09/26/2007 Nonspecific abnormal results of liver function s tudy 08/24/2007 04/19/2011 Overview: AST 56, ALT 80 in 08-19: 85/79 on repeat ESR 29 in 08-19 HBsAg negative, HCV negative, NL iron studies in 08-19 Anemia, unspecified 01/10/2007 03/08/2012 Retention of urine, unspecified 01/01/2007 11/27/2018 Fibromyalgia 04/19/2011 documented as of this encounter (statuses as of 07/13/2022) [facility] History of Past illness Narrative* Problem Noted Date Resolved Date Lateral epicondylitis of left elbow 01/14/2022 04/04/2022 Right arm weakness 06/25/2021 09/17/2021 Decreased ROM of right shoulder 06/25/2021 09/17/2021 Tear of right rotator cuff 06/22/202106/22 Status post subacromial decompression 05/29/2020 09/17/2021 Plantar fasciitis 08/02/2019 09/17/2021 Sprain of wrist, left 02/18/2015 05/24/2018 Hypoglycemia 10/24/2011 03/08/2012 Contact dermatitis and other eczema, due to unspecified cause 10/18/2011 01/03/2017 Eczematous dermatitis: hands 11/23/201006/2013 Xerosis cutis 11/23/2010 02/18/2013 Depression 08/30/2010 11/27/2018 Mild dysplasia of cervix 10/27/2009 012 Impaired glucose tolerance test 01/31/2008 04/16/2008 Onychia and paronychia of toe 09/26/2007 Nonspecific abnormal results of liver function s tudy 08/24/2007 04/19/2011 Overview: AST 56, ALT 80 in 08-19: 85/79 on repeat ESR 29 in 08-19 HBsAg negative, HCV negative, NL iron studies in 08-19 Anemia, unspecified 01/10/2007 03/08/2012 Retention of urine, unspecified 01/01/2007 11/27/2018 Fibromyalgia 04/19/2011 documented as of this encounter (statuses as of 07/20/2022) [facility] History of Past illness Narrative* Problem Noted Date Resolved Date Lateral epicondylitis of left elbow 01/14/2022 04/04/2022 Right arm weakness 06/25/2021 09/17/2021 Decreased ROM of right shoulder 06/25/2021 09/17/2021 Tear of right rotator cuff 06/22/202106/22 Status post subacromial decompression 05/29/2020 09/17/2021 Plantar fasciitis 08/02/2019 09/17/2021 Sprain of wrist, left 02/18/2015 05/24/2018 Hypoglycemia 10/24/2011 03/08/2012 Contact dermatitis and other eczema, due to unspecified cause 10/18/2011 01/03/2017 Eczematous dermatitis: hands 11/23/201006/2013 Xerosis cutis 11/23/2010 02/18/2013 Depression 08/30/2010 11/27/2018 Mild dysplasia of cervix 10/27/2009 012 Impaired glucose tolerance test 01/31/2008 04/16/2008 Onychia and paronychia of toe 09/26/2007 Nonspecific abnormal results of liver function s marsha 08/24/2007 04/19/2011 Overview: AST 56, ALT 80 in 08-19: 85/79 on repeat ESR 29 in 08-19 HBsAg negative, HCV negative, NL iron studies in 08-19 Anemia, unspecified 01/10/2007 03/08/2012 Retention of urine, unspecified 01/01/2007 11/27/2018 Fibromyalgia 04/19/2011 documented as of this encounter (statuses as of 07/25/2022) [facility] History of Past illness Narrative* Problem Noted Date Resolved Date Lateral epicondylitis of left elbow 01/14/2022 04/04/2022 Right arm weakness 06/25/2021 09/17/2021 Decreased ROM of right shoulder 06/25/2021 09/17/2021 Tear of right rotator cuff 06/22/202106/22 Status post subacromial decompression 05/29/2020 09/17/2021 Plantar fasciitis 08/02/2019 09/17/2021 Sprain of wrist, left 02/18/2015 05/24/2018 Hypoglycemia 10/24/2011 03/08/2012 Contact dermatitis and other eczema, due to unspecified cause 10/18/2011 01/03/2017 Eczematous dermatitis: hands 11/23/201006/2013 Xerosis cutis 11/23/2010 02/18/2013 Depression 08/30/2010 11/27/2018 Mild dysplasia of cervix 10/27/2009 012 Impaired glucose tolerance test 01/31/2008 04/16/2008 Onychia and paronychia of toe 09/26/2007 Nonspecific abnormal results of liver function s marsha 08/24/2007 04/19/2011 Overview: AST 56, ALT 80 in 08-19: 85/79 on repeat ESR 29 in 08-19 HBsAg negative, HCV negative, NL iron studies in 08-19 Anemia, unspecified 01/10/2007 03/08/2012 Retention of urine, unspecified 01/01/2007 11/27/2018 Fibromyalgia 04/19/2011 documented as of this encounter (statuses as of 07/26/2022) [facility] History of Past illness Narrative* Problem Noted Date Resolved Date Lateral epicondylitis of left elbow 01/14/2022 04/04/2022 Right arm weakness 06/25/2021 09/17/2021 Decreased ROM of right shoulder 06/25/2021 09/17/2021 Tear of right rotator cuff 06/22/202106/22 Status post subacromial decompression 05/29/2020 09/17/2021 Plantar fasciitis 08/02/2019 09/17/2021 Sprain of wrist, left 02/18/2015 05/24/2018 Hypoglycemia 10/24/2011 03/08/2012 Contact dermatitis and other eczema, due to unspecified cause 10/18/2011 01/03/2017 Eczematous dermatitis: hands 11/23/201006/2013 Xerosis cutis 11/23/2010 02/18/2013 Depression 08/30/2010 11/27/2018 Mild dysplasia of cervix 10/27/2009 012 Impaired glucose tolerance test 01/31/2008 04/16/2008 Onychia and paronychia of toe 09/26/2007 Nonspecific abnormal results of liver function s tudy 08/24/2007 04/19/2011 Overview: AST 56, ALT 80 in 08-19: 85/79 on repeat ESR 29 in 08-19 HBsAg negative, HCV negative, NL iron studies in 08-19 Anemia, unspecified 01/10/2007 03/08/2012 Retention of urine, unspecified 01/01/2007 11/27/2018 Fibromyalgia 04/19/2011 documented as of this encounter (statuses as of 08/01/2022) [facility] History of Past illness Narrative* Problem Noted Date Resolved Date Lateral epicondylitis of left elbow 01/14/2022 04/04/2022 Right arm weakness 06/25/2021 09/17/2021 Decreased ROM of right shoulder 06/25/2021 09/17/2021 Tear of right rotator cuff 06/22/202106/22 Status post subacromial decompression 05/29/2020 09/17/2021 Plantar fasciitis 08/02/2019 09/17/2021 Sprain of wrist, left 02/18/2015 05/24/2018 Hypoglycemia 10/24/2011 03/08/2012 Contact dermatitis and other eczema, due to unspecified cause 10/18/2011 01/03/2017 Eczematous dermatitis: hands 11/23/201006/2013 Xerosis cutis 11/23/2010 02/18/2013 Depression 08/30/2010 11/27/2018 Mild dysplasia of cervix 10/27/2009 012 Impaired glucose tolerance test 01/31/2008 04/16/2008 Onychia and paronychia of toe 09/26/2007 Nonspecific abnormal results of liver function s tudy 08/24/2007 04/19/2011 Overview: AST 56, ALT 80 in 08-19: 85/79 on repeat ESR 29 in 08-19 HBsAg negative, HCV negative, NL iron studies in 08-19 Anemia, unspecified 01/10/2007 03/08/2012 Retention of urine, unspecified 01/01/2007 11/27/2018 Fibromyalgia 04/19/2011 documented as of this encounter (statuses as of 08/31/2022) [facility] History of Past illness Narrative* Problem Noted Date Resolved Date Lateral epicondylitis of left elbow 01/14/2022 04/04/2022 Right arm weakness 06/25/2021 09/17/2021 Decreased ROM of right shoulder 06/25/2021 09/17/2021 Tear of right rotator cuff 06/22/202106/22 Status post subacromial decompression 05/29/2020 09/17/2021 Plantar fasciitis 08/02/2019 09/17/2021 Sprain of wrist, left 02/18/2015 05/24/2018 Hypoglycemia 10/24/2011 03/08/2012 Contact dermatitis and other eczema, due to unspecified cause 10/18/2011 01/03/2017 Eczematous dermatitis: hands 11/23/201006/2013 Xerosis cutis 11/23/2010 02/18/2013 Depression 08/30/2010 11/27/2018 Mild dysplasia of cervix 10/27/2009 012 Impaired glucose tolerance test 01/31/2008 04/16/2008 Onychia and paronychia of toe 09/26/2007 Nonspecific abnormal results of liver function s marsha 08/24/2007 04/19/2011 Overview: AST 56, ALT 80 in 08-19: 85/79 on repeat ESR 29 in 08-19 HBsAg negative, HCV negative, NL iron studies in 08-19 Anemia, unspecified 01/10/2007 03/08/2012 Retention of urine, unspecified 01/01/2007 11/27/2018 Fibromyalgia 04/19/2011 documented as of this encounter (statuses as of 09/21/2022) [facility] History of Past illness Narrative* Problem Noted Date Resolved Date Lateral epicondylitis of left elbow 01/14/2022 04/04/2022 Right arm weakness 06/25/2021 09/17/2021 Decreased ROM of right shoulder 06/25/2021 09/17/2021 Tear of right rotator cuff 06/22/202106/22 Status post subacromial decompression 05/29/2020 09/17/2021 Plantar fasciitis 08/02/2019 09/17/2021 Sprain of wrist, left 02/18/2015 05/24/2018 Hypoglycemia 10/24/2011 03/08/2012 Contact dermatitis and other eczema, due to unspecified cause 10/18/2011 01/03/2017 Eczematous dermatitis: hands 11/23/201006/2013 Xerosis cutis 11/23/2010 02/18/2013 Depression 08/30/2010 11/27/2018 Mild dysplasia of cervix 10/27/2009 012 Impaired glucose tolerance test 01/31/2008 04/16/2008 Onychia and paronychia of toe 09/26/2007 Nonspecific abnormal results of liver function s marsha 08/24/2007 04/19/2011 Overview: AST 56, ALT 80 in 08-19: 85/79 on repeat ESR 29 in 08-19 HBsAg negative, HCV negative, NL iron studies in 08-19 Anemia, unspecified 01/10/2007 03/08/2012 Retention of urine, unspecified 01/01/2007 11/27/2018 Fibromyalgia 04/19/2011 documented as of this encounter (statuses as of 10/17/2022) [facility] History of Past illness Narrative* Problem Noted Date Resolved Date Lateral epicondylitis of left elbow 01/14/2022 04/04/2022 Right arm weakness 06/25/2021 09/17/2021 Decreased ROM of right shoulder 06/25/2021 09/17/2021 Tear of right rotator cuff 06/22/202106/22 Status post subacromial decompression 05/29/2020 09/17/2021 Plantar fasciitis 08/02/2019 09/17/2021 Sprain of wrist, left 02/18/2015 05/24/2018 Hypoglycemia 10/24/2011 03/08/2012 Contact dermatitis and other eczema, due to unspecified cause 10/18/2011 01/03/2017 Eczematous dermatitis: hands 11/23/201006/2013 Xerosis cutis 11/23/2010 02/18/2013 Depression 08/30/2010 11/27/2018 Mild dysplasia of cervix 10/27/2009 012 Impaired glucose tolerance test 01/31/2008 04/16/2008 Onychia and paronychia of toe 09/26/2007 Nonspecific abnormal results of liver function s tudy 08/24/2007 04/19/2011 Overview: AST 56, ALT 80 in 08-19: 85/79 on repeat ESR 29 in 08-19 HBsAg negative, HCV negative, NL iron studies in 08-19 Anemia, unspecified 01/10/2007 03/08/2012 Retention of urine, unspecified 01/01/2007 11/27/2018 Fibromyalgia 04/19/2011 documented as of this encounter (statuses as of 10/18/2022) [facility] History of Past illness Narrative* Problem Noted Date Resolved Date Lateral epicondylitis of left elbow 01/14/2022 04/04/2022 Right arm weakness 06/25/2021 09/17/2021 Decreased ROM of right shoulder 06/25/2021 09/17/2021 Tear of right rotator cuff 06/22/202106/22 Status post subacromial decompression 05/29/2020 09/17/2021 Plantar fasciitis 08/02/2019 09/17/2021 Sprain of wrist, left 02/18/2015 05/24/2018 Hypoglycemia 10/24/2011 03/08/2012 Contact dermatitis and other eczema, due to unspecified cause 10/18/2011 01/03/2017 Eczematous dermatitis: hands 11/23/201006/2013 Xerosis cutis 11/23/2010 02/18/2013 Depression 08/30/2010 11/27/2018 Mild dysplasia of cervix 10/27/2009 012 Impaired glucose tolerance test 01/31/2008 04/16/2008 Onychia and paronychia of toe 09/26/2007 Nonspecific abnormal results of liver function s tudy 08/24/2007 04/19/2011 Overview: AST 56, ALT 80 in 08-19: 85/79 on repeat ESR 29 in 08-19 HBsAg negative, HCV negative, NL iron studies in 08-19 Anemia, unspecified 01/10/2007 03/08/2012 Retention of urine, unspecified 01/01/2007 11/27/2018 Fibromyalgia 04/19/2011 documented as of this encounter (statuses as of 10/20/2022) [facility] History of Past illness Narrative* Problem Noted Date Resolved Date Lateral epicondylitis of left elbow 01/14/2022 04/04/2022 Right arm weakness 06/25/2021 09/17/2021 Decreased ROM of right shoulder 06/25/2021 09/17/2021 Tear of right rotator cuff 06/22/202106/22 Status post subacromial decompression 05/29/2020 09/17/2021 Plantar fasciitis 08/02/2019 09/17/2021 Sprain of wrist, left 02/18/2015 05/24/2018 Hypoglycemia 10/24/2011 03/08/2012 Contact dermatitis and other eczema, due to unspecified cause 10/18/2011 01/03/2017 Eczematous dermatitis: hands 11/23/201006/2013 Xerosis cutis 11/23/2010 02/18/2013 Depression 08/30/2010 11/27/2018 Mild dysplasia of cervix 10/27/2009 012 Impaired glucose tolerance test 01/31/2008 04/16/2008 Onychia and paronychia of toe 09/26/2007 Nonspecific abnormal results of liver function s marsha 08/24/2007 04/19/2011 Overview: AST 56, ALT 80 in 08-19: 85/79 on repeat ESR 29 in 08-19 HBsAg negative, HCV negative, NL iron studies in 08-19 Anemia, unspecified 01/10/2007 03/08/2012 Retention of urine, unspecified 01/01/2007 11/27/2018 Fibromyalgia 04/19/2011 documented as of this encounter (statuses as of 11/06/2022) [facility] History of Past illness Narrative* Problem Noted Date Resolved Date Lateral epicondylitis of left elbow 01/14/2022 04/04/2022 Right arm weakness 06/25/2021 09/17/2021 Decreased ROM of right shoulder 06/25/2021 09/17/2021 Tear of right rotator cuff 06/22/202106/22 Status post subacromial decompression 05/29/2020 09/17/2021 Plantar fasciitis 08/02/2019 09/17/2021 Sprain of wrist, left 02/18/2015 05/24/2018 Hypoglycemia 10/24/2011 03/08/2012 Contact dermatitis and other eczema, due to unspecified cause 10/18/2011 01/03/2017 Eczematous dermatitis: hands 11/23/201006/2013 Xerosis cutis 11/23/2010 02/18/2013 Depression 08/30/2010 11/27/2018 Mild dysplasia of cervix 10/27/2009 012 Impaired glucose tolerance test 01/31/2008 04/16/2008 Onychia and paronychia of toe 09/26/2007 Nonspecific abnormal results of liver function s marsha 08/24/2007 04/19/2011 Overview: AST 56, ALT 80 in 08-19: 85/79 on repeat ESR 29 in 10-07 HBsAg negative, HCV negative, NL iron studies in 08-19 Anemia, unspecified 01/10/2007 03/08/2012 Retention of urine, unspecified 01/01/2007 11/27/2018 Fibromyalgia 04/19/2011 documented as of this encounter (statuses as of 11/18/2022) [facility] History of Past illness Narrative* Problem Noted Date Resolved Date Lateral epicondylitis of left elbow 01/14/2022 04/04/2022 Right arm weakness 06/25/2021 09/17/2021 Decreased ROM of right shoulder 06/25/2021 09/17/2021 Tear of right rotator cuff 06/22/202106/22 Status post subacromial decompression 05/29/2020 09/17/2021 Plantar fasciitis 08/02/2019 09/17/2021 Sprain of wrist, left 02/18/2015 05/24/2018 Hypoglycemia 10/24/2011 03/08/2012 Contact dermatitis and other eczema, due to unspecified cause 10/18/2011 01/03/2017 Eczematous dermatitis: hands 11/23/201006/2013 Xerosis cutis 11/23/2010 02/18/2013 Depression 08/30/2010 11/27/2018 Mild dysplasia of cervix 10/27/2009 012 Impaired glucose tolerance test 01/31/2008 04/16/2008 Onychia and paronychia of toe 09/26/2007 Nonspecific abnormal results of liver function s uridy 08/24/2007 04/19/2011 Overview: AST 56, ALT 80 in 08-19: 85/79 on repeat ESR 29 in 08-19 HBsAg negative, HCV negative, NL iron studies in 08-19 Anemia, unspecified 01/10/2007 03/08/2012 Retention of urine, unspecified 01/01/2007 11/27/2018 Fibromyalgia 04/19/2011 documented as of this encounter (statuses as of 11/25/2022) [facility] History of Past illness Narrative* Problem Noted Date Resolved Date Lateral epicondylitis of left elbow 01/14/2022 04/04/2022 Right arm weakness 06/25/2021 09/17/2021 Decreased ROM of right shoulder 06/25/2021 09/17/2021 Tear of right rotator cuff 06/22/202106/22 Status post subacromial decompression 05/29/2020 09/17/2021 Plantar fasciitis 08/02/2019 09/17/2021 Sprain of wrist, left 02/18/2015 05/24/2018 Hypoglycemia 10/24/2011 03/08/2012 Contact dermatitis and other eczema, due to unspecified cause 10/18/2011 01/03/2017 Eczematous dermatitis: hands 11/23/201006/2013 Xerosis cutis 11/23/2010 02/18/2013 Depression 08/30/2010 11/27/2018 Mild dysplasia of cervix 10/27/2009 012 Impaired glucose tolerance test 01/31/2008 04/16/2008 Onychia and paronychia of toe 09/26/2007 Nonspecific abnormal results of liver function s tudy 08/24/2007 04/19/2011 Overview: AST 56, ALT 80 in 08-19: 85/79 on repeat ESR 29 in 08-19 HBsAg negative, HCV negative, NL iron studies in 08-19 Anemia, unspecified 01/10/2007 03/08/2012 Retention of urine, unspecified 01/01/2007 11/27/2018 Fibromyalgia 04/19/2011 documented as of this encounter (statuses as of 11/26/2022) [facility] History of Past illness Narrative* Problem Noted Date Resolved Date Lateral epicondylitis of left elbow 01/14/2022 04/04/2022 Right arm weakness 06/25/2021 09/17/2021 Decreased ROM of right shoulder 06/25/2021 09/17/2021 Tear of right rotator cuff 06/22/202106/22 Status post subacromial decompression 05/29/2020 09/17/2021 Plantar fasciitis 08/02/2019 09/17/2021 Sprain of wrist, left 02/18/2015 05/24/2018 Hypoglycemia 10/24/2011 03/08/2012 Contact dermatitis and other eczema, due to unspecified cause 10/18/2011 01/03/2017 Eczematous dermatitis: hands 11/23/201006/2013 Xerosis cutis 11/23/2010 02/18/2013 Depression 08/30/2010 11/27/2018 Mild dysplasia of cervix 10/27/2009 012 Impaired glucose tolerance test 01/31/2008 04/16/2008 Onychia and paronychia of toe 09/26/2007 Nonspecific abnormal results of liver function s marsha 08/24/2007 04/19/2011 Overview: AST 56, ALT 80 in 08-19: 85/79 on repeat ESR 29 in 08-19 HBsAg negative, HCV negative, NL iron studies in 08-19 Anemia, unspecified 01/10/2007 03/08/2012 Retention of urine, unspecified 01/01/2007 11/27/2018 Fibromyalgia 04/19/2011 documented as of this encounter (statuses as of 11/30/2022) [facility] History of Past illness Narrative* Problem Noted Date Resolved Date Lateral epicondylitis of left elbow 01/14/2022 04/04/2022 Right arm weakness 06/25/2021 09/17/2021 Decreased ROM of right shoulder 06/25/2021 09/17/2021 Tear of right rotator cuff 06/22/202106/22 Status post subacromial decompression 05/29/2020 09/17/2021 Plantar fasciitis 08/02/2019 09/17/2021 Sprain of wrist, left 02/18/2015 05/24/2018 Hypoglycemia 10/24/2011 03/08/2012 Contact dermatitis and other eczema, due to unspecified cause 10/18/2011 01/03/2017 Eczematous dermatitis: hands 11/23/201006/2013 Xerosis cutis 11/23/2010 02/18/2013 Depression 08/30/2010 11/27/2018 Mild dysplasia of cervix 10/27/2009 012 Impaired glucose tolerance test 01/31/2008 04/16/2008 Onychia and paronychia of toe 09/26/2007 Nonspecific abnormal results of liver function s marsha 08/24/2007 04/19/2011 Overview: AST 56, ALT 80 in 08-19: 85/79 on repeat ESR 29 in 08-19 HBsAg negative, HCV negative, NL iron studies in 08-19 Anemia, unspecified 01/10/2007 03/08/2012 Retention of urine, unspecified 01/01/2007 11/27/2018 Fibromyalgia 04/19/2011 documented as of this encounter (statuses as of 11/30/2022) [facility] History of Past illness Narrative* Problem Noted Date Resolved Date Lateral epicondylitis of left elbow 01/14/2022 04/04/2022 Right arm weakness 06/25/2021 09/17/2021 Decreased ROM of right shoulder 06/25/2021 09/17/2021 Tear of right rotator cuff 06/22/202106/22 Status post subacromial decompression 05/29/2020 09/17/2021 Plantar fasciitis 08/02/2019 09/17/2021 Sprain of wrist, left 02/18/2015 05/24/2018 Hypoglycemia 10/24/2011 03/08/2012 Contact dermatitis and other eczema, due to unspecified cause 10/18/2011 01/03/2017 Eczematous dermatitis: hands 11/23/201006/2013 Xerosis cutis 11/23/2010 02/18/2013 Depression 08/30/2010 11/27/2018 Mild dysplasia of cervix 10/27/2009 012 Impaired glucose tolerance test 01/31/2008 04/16/2008 Onychia and paronychia of toe 09/26/2007 Nonspecific abnormal results of liver function s tudy 08/24/2007 04/19/2011 Overview: AST 56, ALT 80 in 08-19: 85/79 on repeat ESR 29 in 08-19 HBsAg negative, HCV negative, NL iron studies in 08-19 Anemia, unspecified 01/10/2007 03/08/2012 Retention of urine, unspecified 01/01/2007 11/27/2018 Fibromyalgia 04/19/2011 documented as of this encounter (statuses as of 12/01/2022) [facility] History of Past illness Narrative* Problem Noted Date Resolved Date Lateral epicondylitis of left elbow 01/14/2022 04/04/2022 Right arm weakness 06/25/2021 09/17/2021 Decreased ROM of right shoulder 06/25/2021 09/17/2021 Tear of right rotator cuff 06/22/202106/22 Status post subacromial decompression 05/29/2020 09/17/2021 Plantar fasciitis 08/02/2019 09/17/2021 Sprain of wrist, left 02/18/2015 05/24/2018 Hypoglycemia 10/24/2011 03/08/2012 Contact dermatitis and other eczema, due to unspecified cause 10/18/2011 01/03/2017 Eczematous dermatitis: hands 11/23/201006/2013 Xerosis cutis 11/23/2010 02/18/2013 Depression 08/30/2010 11/27/2018 Mild dysplasia of cervix 10/27/2009 012 Impaired glucose tolerance test 01/31/2008 04/16/2008 Onychia and paronychia of toe 09/26/2007 Nonspecific abnormal results of liver function s tudy 08/24/2007 04/19/2011 Overview: AST 56, ALT 80 in 08-19: 85/79 on repeat ESR 29 in 08-19 HBsAg negative, HCV negative, NL iron studies in 08-19 Anemia, unspecified 01/10/2007 03/08/2012 Retention of urine, unspecified 01/01/2007 11/27/2018 Fibromyalgia 04/19/2011 documented as of this encounter (statuses as of 12/08/2022) [facility] History of Past illness Narrative* Problem Noted Date Resolved Date Lateral epicondylitis of left elbow 01/14/2022 04/04/2022 Right arm weakness 06/25/2021 09/17/2021 Decreased ROM of right shoulder 06/25/2021 09/17/2021 Tear of right rotator cuff 06/22/202106/22 Status post subacromial decompression 05/29/2020 09/17/2021 Plantar fasciitis 08/02/2019 09/17/2021 Sprain of wrist, left 02/18/2015 05/24/2018 Hypoglycemia 10/24/2011 03/08/2012 Contact dermatitis and other eczema, due to unspecified cause 10/18/2011 01/03/2017 Eczematous dermatitis: hands 11/23/201006/2013 Xerosis cutis 11/23/2010 02/18/2013 Depression 08/30/2010 11/27/2018 Mild dysplasia of cervix 10/27/2009 012 Impaired glucose tolerance test 01/31/2008 04/16/2008 Onychia and paronychia of toe 09/26/2007 Nonspecific abnormal results of liver function s marsha 08/24/2007 04/19/2011 Overview: AST 56, ALT 80 in 08-19: 85/79 on repeat ESR 29 in 08-19 HBsAg negative, HCV negative, NL iron studies in 08-19 Anemia, unspecified 01/10/2007 03/08/2012 Retention of urine, unspecified 01/01/2007 11/27/2018 Fibromyalgia 04/19/2011 documented as of this encounter (statuses as of 12/09/2022) [facility] History of Past illness Narrative* Problem Noted Date Resolved Date Lateral epicondylitis of left elbow 01/14/2022 04/04/2022 Right arm weakness 06/25/2021 09/17/2021 Decreased ROM of right shoulder 06/25/2021 09/17/2021 Tear of right rotator cuff 06/22/202106/22 Status post subacromial decompression 05/29/2020 09/17/2021 Plantar fasciitis 08/02/2019 09/17/2021 Sprain of wrist, left 02/18/2015 05/24/2018 Hypoglycemia 10/24/2011 03/08/2012 Contact dermatitis and other eczema, due to unspecified cause 10/18/2011 01/03/2017 Eczematous dermatitis: hands 11/23/201006/2013 Xerosis cutis 11/23/2010 02/18/2013 Depression 08/30/2010 11/27/2018 Mild dysplasia of cervix 10/27/2009 012 Impaired glucose tolerance test 01/31/2008 04/16/2008 Onychia and paronychia of toe 09/26/2007 Nonspecific abnormal results of liver function s marsha 08/24/2007 04/19/2011 Overview: AST 56, ALT 80 in 08-19: 85/79 on repeat ESR 29 in - HBsAg negative, HCV negative, NL iron studies in 08-19 Anemia, unspecified 01/10/2007 03/08/2012 Retention of urine, unspecified 01/01/2007 11/27/2018 Fibromyalgia 04/19/2011 documented as of this encounter (statuses as of 12/09/2022) [facility] History of Past illness Narrative* Problem Noted Date Resolved Date Lateral epicondylitis of left elbow 01/14/2022 04/04/2022 Right arm weakness 06/25/2021 09/17/2021 Decreased ROM of right shoulder 06/25/2021 09/17/2021 Tear of right rotator cuff 06/22/202106/22 Status post subacromial decompression 05/29/2020 09/17/2021 Plantar fasciitis 08/02/2019 09/17/2021 Sprain of wrist, left 02/18/2015 05/24/2018 Hypoglycemia 10/24/2011 03/08/2012 Contact dermatitis and other eczema, due to unspecified cause 10/18/2011 01/03/2017 Eczematous dermatitis: hands 11/23/201006/2013 Xerosis cutis 11/23/2010 02/18/2013 Depression 08/30/2010 11/27/2018 Mild dysplasia of cervix 10/27/2009 012 Impaired glucose tolerance test 01/31/2008 04/16/2008 Onychia and paronychia of toe 09/26/2007 Nonspecific abnormal results of liver function s uridy 08/24/2007 04/19/2011 Overview: AST 56, ALT 80 in 08-19: 85/79 on repeat ESR 29 in 08-19 HBsAg negative, HCV negative, NL iron studies in 08-19 Anemia, unspecified 01/10/2007 03/08/2012 Retention of urine, unspecified 01/01/2007 11/27/2018 Fibromyalgia 04/19/2011 documented as of this encounter (statuses as of 12/15/2022) [facility] History of Past illness Narrative* Problem Noted Date Resolved Date Lateral epicondylitis of left elbow 01/14/2022 04/04/2022 Right arm weakness 06/25/2021 09/17/2021 Decreased ROM of right shoulder 06/25/2021 09/17/2021 Tear of right rotator cuff 06/22/202106/22 Status post subacromial decompression 05/29/2020 09/17/2021 Plantar fasciitis 08/02/2019 09/17/2021 Sprain of wrist, left 02/18/2015 05/24/2018 Hypoglycemia 10/24/2011 03/08/2012 Contact dermatitis and other eczema, due to unspecified cause 10/18/2011 01/03/2017 Eczematous dermatitis: hands 11/23/201006/2013 Xerosis cutis 11/23/2010 02/18/2013 Depression 08/30/2010 11/27/2018 Mild dysplasia of cervix 10/27/2009 012 Impaired glucose tolerance test 01/31/2008 04/16/2008 Onychia and paronychia of toe 09/26/2007 Nonspecific abnormal results of liver function s uridy 08/24/2007 04/19/2011 Overview: AST 56, ALT 80 in 08-19: 85/79 on repeat ESR 29 in 08-19 HBsAg negative, HCV negative, NL iron studies in 08-19 Anemia, unspecified 01/10/2007 03/08/2012 Retention of urine, unspecified 01/01/2007 11/27/2018 Fibromyalgia 04/19/2011 documented as of this encounter (statuses as of 12/16/2022) [facility] History of Past illness Narrative* Problem Noted Date Resolved Date Lateral epicondylitis of left elbow 01/14/2022 04/04/2022 Right arm weakness 06/25/2021 09/17/2021 Decreased ROM of right shoulder 06/25/2021 09/17/2021 Tear of right rotator cuff 06/22/202106/22 Status post subacromial decompression 05/29/2020 09/17/2021 Plantar fasciitis 08/02/2019 09/17/2021 Sprain of wrist, left 02/18/2015 05/24/2018 Hypoglycemia 10/24/2011 03/08/2012 Contact dermatitis and other eczema, due to unspecified cause 10/18/2011 01/03/2017 Eczematous dermatitis: hands 11/23/201006/2013 Xerosis cutis 11/23/2010 02/18/2013 Depression 08/30/2010 11/27/2018 Mild dysplasia of cervix 10/27/2009 012 Impaired glucose tolerance test 01/31/2008 04/16/2008 Onychia and paronychia of toe 09/26/2007 Nonspecific abnormal results of liver function s uridy 08/24/2007 04/19/2011 Overview: AST 56, ALT 80 in 08-19: 85/79 on repeat ESR 29 in 08-19 HBsAg negative, HCV negative, NL iron studies in 08-19 Anemia, unspecified 01/10/2007 03/08/2012 Retention of urine, unspecified 01/01/2007 11/27/2018 Fibromyalgia 04/19/2011 documented as of this encounter (statuses as of 12/20/2022) [facility] History of Past illness Narrative* Problem Noted Date Resolved Date Lateral epicondylitis of left elbow 01/14/2022 04/04/2022 Right arm weakness 06/25/2021 09/17/2021 Decreased ROM of right shoulder 06/25/2021 09/17/2021 Tear of right rotator cuff 06/22/202106/22 Status post subacromial decompression 05/29/2020 09/17/2021 Plantar fasciitis 08/02/2019 09/17/2021 Sprain of wrist, left 02/18/2015 05/24/2018 Hypoglycemia 10/24/2011 03/08/2012 Contact dermatitis and other eczema, due to unspecified cause 10/18/2011 01/03/2017 Eczematous dermatitis: hands 11/23/201006/2013 Xerosis cutis 11/23/2010 02/18/2013 Depression 08/30/2010 11/27/2018 Mild dysplasia of cervix 10/27/2009 012 Impaired glucose tolerance test 01/31/2008 04/16/2008 Onychia and paronychia of toe 09/26/2007 Nonspecific abnormal results of liver function s marsha 08/24/2007 04/19/2011 Overview: AST 56, ALT 80 in 08-19: 85/79 on repeat ESR 29 in 08-19 HBsAg negative, HCV negative, NL iron studies in 08-19 Anemia, unspecified 01/10/2007 03/08/2012 Retention of urine, unspecified 01/01/2007 11/27/2018 Fibromyalgia 04/19/2011 documented as of this encounter (statuses as of 12/22/2022) [facility] History of Past illness Narrative* Problem Noted Date Resolved Date Lateral epicondylitis of left elbow 01/14/2022 04/04/2022 Right arm weakness 06/25/2021 09/17/2021 Decreased ROM of right shoulder 06/25/2021 09/17/2021 Tear of right rotator cuff 06/22/202106/22 Status post subacromial decompression 05/29/2020 09/17/2021 Plantar fasciitis 08/02/2019 09/17/2021 Sprain of wrist, left 02/18/2015 05/24/2018 Hypoglycemia 10/24/2011 03/08/2012 Contact dermatitis and other eczema, due to unspecified cause 10/18/2011 01/03/2017 Eczematous dermatitis: hands 11/23/201006/2013 Xerosis cutis 11/23/2010 02/18/2013 Depression 08/30/2010 11/27/2018 Mild dysplasia of cervix 10/27/2009 012 Impaired glucose tolerance test 01/31/2008 04/16/2008 Onychia and paronychia of toe 09/26/2007 Nonspecific abnormal results of liver function s marsha 08/24/2007 04/19/2011 Overview: AST 56, ALT 80 in 08-19: 85/79 on repeat ESR 29 in 08-19 HBsAg negative, HCV negative, NL iron studies in 08-19 Anemia, unspecified 01/10/2007 03/08/2012 Retention of urine, unspecified 01/01/2007 11/27/2018 Fibromyalgia 04/19/2011 documented as of this encounter (statuses as of 12/22/2022) [facility] History of Past illness Narrative* Problem Noted Date Resolved Date Lateral epicondylitis of left elbow 01/14/2022 04/04/2022 Right arm weakness 06/25/2021 09/17/2021 Decreased ROM of right shoulder 06/25/2021 09/17/2021 Tear of right rotator cuff 06/22/202106/22 Status post subacromial decompression 05/29/2020 09/17/2021 Plantar fasciitis 08/02/2019 09/17/2021 Sprain of wrist, left 02/18/2015 05/24/2018 Hypoglycemia 10/24/2011 03/08/2012 Contact dermatitis and other eczema, due to unspecified cause 10/18/2011 01/03/2017 Eczematous dermatitis: hands 11/23/201006/2013 Xerosis cutis 11/23/2010 02/18/2013 Depression 08/30/2010 11/27/2018 Mild dysplasia of cervix 10/27/2009 012 Impaired glucose tolerance test 01/31/2008 04/16/2008 Onychia and paronychia of toe 09/26/2007 Nonspecific abnormal results of liver function s marsha 08/24/2007 04/19/2011 Overview: AST 56, ALT 80 in 08-19: 85/79 on repeat ESR 29 in 08-19 HBsAg negative, HCV negative, NL iron studies in 08-19 Anemia, unspecified 01/10/2007 03/08/2012 Retention of urine, unspecified 01/01/2007 11/27/2018 Fibromyalgia 04/19/2011 documented as of this encounter (statuses as of 12/22/2022) [facility] History of Past illness Narrative* Problem Noted Date Resolved Date Lateral epicondylitis of left elbow 01/14/2022 04/04/2022 Right arm weakness 06/25/2021 09/17/2021 Decreased ROM of right shoulder 06/25/2021 09/17/2021 Tear of right rotator cuff 06/22/202106/22 Status post subacromial decompression 05/29/2020 09/17/2021 Plantar fasciitis 08/02/2019 09/17/2021 Sprain of wrist, left 02/18/2015 05/24/2018 Hypoglycemia 10/24/2011 03/08/2012 Contact dermatitis and other eczema, due to unspecified cause 10/18/2011 01/03/2017 Eczematous dermatitis: hands 11/23/201006/2013 Xerosis cutis 11/23/2010 02/18/2013 Depression 08/30/2010 11/27/2018 Mild dysplasia of cervix 10/27/2009 012 Impaired glucose tolerance test 01/31/2008 04/16/2008 Onychia and paronychia of toe 09/26/2007 Nonspecific abnormal results of liver function s marsha 08/24/2007 04/19/2011 Overview: AST 56, ALT 80 in 08-19: 85/79 on repeat ESR 29 in 08-19 HBsAg negative, HCV negative, NL iron studies in 08-19 Anemia, unspecified 01/10/2007 03/08/2012 Retention of urine, unspecified 01/01/2007 11/27/2018 Fibromyalgia 04/19/2011 documented as of this encounter (statuses as of 12/23/2022) [facility] History of Past illness Narrative* Problem Noted Date Resolved Date Lateral epicondylitis of left elbow 01/14/2022 04/04/2022 Right arm weakness 06/25/2021 09/17/2021 Decreased ROM of right shoulder 06/25/2021 09/17/2021 Tear of right rotator cuff 06/22/202106/22 Status post subacromial decompression 05/29/2020 09/17/2021 Plantar fasciitis 08/02/2019 09/17/2021 Sprain of wrist, left 02/18/2015 05/24/2018 Hypoglycemia 10/24/2011 03/08/2012 Contact dermatitis and other eczema, due to unspecified cause 10/18/2011 01/03/2017 Eczematous dermatitis: hands 11/23/201006/2013 Xerosis cutis 11/23/2010 02/18/2013 Depression 08/30/2010 11/27/2018 Mild dysplasia of cervix 10/27/2009 012 Impaired glucose tolerance test 01/31/2008 04/16/2008 Onychia and paronychia of toe 09/26/2007 Nonspecific abnormal results of liver function s marsha 08/24/2007 04/19/2011 Overview: AST 56, ALT 80 in 08-19: 85/79 on repeat ESR 29 in 08-19 HBsAg negative, HCV negative, NL iron studies in 08-19 Anemia, unspecified 01/10/2007 03/08/2012 Retention of urine, unspecified 01/01/2007 11/27/2018 Fibromyalgia 04/19/2011 documented as of this encounter (statuses as of 01/02/2023) [facility] History of Past illness Narrative* Problem Noted Date Resolved Date Lateral epicondylitis of left elbow 01/14/2022 04/04/2022 Right arm weakness 06/25/2021 09/17/2021 Decreased ROM of right shoulder 06/25/2021 09/17/2021 Tear of right rotator cuff 06/22/202106/22 Status post subacromial decompression 05/29/2020 09/17/2021 Plantar fasciitis 08/02/2019 09/17/2021 Sprain of wrist, left 02/18/2015 05/24/2018 Hypoglycemia 10/24/2011 03/08/2012 Contact dermatitis and other eczema, due to unspecified cause 10/18/2011 01/03/2017 Eczematous dermatitis: hands 11/23/201006/2013 Xerosis cutis 11/23/2010 02/18/2013 Depression 08/30/2010 11/27/2018 Mild dysplasia of cervix 10/27/2009 012 Impaired glucose tolerance test 01/31/2008 04/16/2008 Onychia and paronychia of toe 09/26/2007 Nonspecific abnormal results of liver function s tudy 08/24/2007 04/19/2011 Overview: AST 56, ALT 80 in 08-19: 85/79 on repeat ESR 29 in 08-19 HBsAg negative, HCV negative, NL iron studies in 08-19 Anemia, unspecified 01/10/2007 03/08/2012 Retention of urine, unspecified 01/01/2007 11/27/2018 Fibromyalgia 04/19/2011 documented as of this encounter (statuses as of 01/05/2023) [facility] History of Past illness Narrative* Problem Noted Date Resolved Date Lateral epicondylitis of left elbow 01/14/2022 04/04/2022 Right arm weakness 06/25/2021 09/17/2021 Decreased ROM of right shoulder 06/25/2021 09/17/2021 Tear of right rotator cuff 06/22/202106/22 Status post subacromial decompression 05/29/2020 09/17/2021 Plantar fasciitis 08/02/2019 09/17/2021 Sprain of wrist, left 02/18/2015 05/24/2018 Hypoglycemia 10/24/2011 03/08/2012 Contact dermatitis and other eczema, due to unspecified cause 10/18/2011 01/03/2017 Eczematous dermatitis: hands 11/23/201006/2013 Xerosis cutis 11/23/2010 02/18/2013 Depression 08/30/2010 11/27/2018 Mild dysplasia of cervix 10/27/2009 012 Impaired glucose tolerance test 01/31/2008 04/16/2008 Onychia and paronychia of toe 09/26/2007 Nonspecific abnormal results of liver function s tudy 08/24/2007 04/19/2011 Overview: AST 56, ALT 80 in 08-19: 85/79 on repeat ESR 29 in 08-19 HBsAg negative, HCV negative, NL iron studies in 08-19 Anemia, unspecified 01/10/2007 03/08/2012 Retention of urine, unspecified 01/01/2007 11/27/2018 Fibromyalgia 04/19/2011 documented as of this encounter (statuses as of 01/05/2023) [facility] History of Past illness Narrative* Problem Noted Date Resolved Date Lateral epicondylitis of left elbow 01/14/2022 04/04/2022 Right arm weakness 06/25/2021 09/17/2021 Decreased ROM of right shoulder 06/25/2021 09/17/2021 Tear of right rotator cuff 06/22/202106/22 Status post subacromial decompression 05/29/2020 09/17/2021 Plantar fasciitis 08/02/2019 09/17/2021 Sprain of wrist, left 02/18/2015 05/24/2018 Hypoglycemia 10/24/2011 03/08/2012 Contact dermatitis and other eczema, due to unspecified cause 10/18/2011 01/03/2017 Eczematous dermatitis: hands 11/23/201006/2013 Xerosis cutis 11/23/2010 02/18/2013 Depression 08/30/2010 11/27/2018 Mild dysplasia of cervix 10/27/2009 012 Impaired glucose tolerance test 01/31/2008 04/16/2008 Onychia and paronychia of toe 09/26/2007 Nonspecific abnormal results of liver function s marsha 08/24/2007 04/19/2011 Overview: AST 56, ALT 80 in 08-19: 85/79 on repeat ESR 29 in 08-19 HBsAg negative, HCV negative, NL iron studies in 08-19 Anemia, unspecified 01/10/2007 03/08/2012 Retention of urine, unspecified 01/01/2007 11/27/2018 Fibromyalgia 04/19/2011 documented as of this encounter (statuses as of 01/06/2023) [facility] History of Past illness Narrative* Problem Noted Date Resolved Date Lateral epicondylitis of left elbow 01/14/2022 04/04/2022 Right arm weakness 06/25/2021 09/17/2021 Decreased ROM of right shoulder 06/25/2021 09/17/2021 Tear of right rotator cuff 06/22/202106/22 Status post subacromial decompression 05/29/2020 09/17/2021 Plantar fasciitis 08/02/2019 09/17/2021 Sprain of wrist, left 02/18/2015 05/24/2018 Hypoglycemia 10/24/2011 03/08/2012 Contact dermatitis and other eczema, due to unspecified cause 10/18/2011 01/03/2017 Eczematous dermatitis: hands 11/23/201006/2013 Xerosis cutis 11/23/2010 02/18/2013 Depression 08/30/2010 11/27/2018 Mild dysplasia of cervix 10/27/2009 012 Impaired glucose tolerance test 01/31/2008 04/16/2008 Onychia and paronychia of toe 09/26/2007 Nonspecific abnormal results of liver function s marsha 08/24/2007 04/19/2011 Overview: AST 56, ALT 80 in 08-19: 85/79 on repeat ESR 29 in 08-19 HBsAg negative, HCV negative, NL iron studies in 08-19 Anemia, unspecified 01/10/2007 03/08/2012 Retention of urine, unspecified 01/01/2007 11/27/2018 Fibromyalgia 04/19/2011 documented as of this encounter (statuses as of 01/06/2023) [facility] History of Past illness Narrative* Problem Noted Date Resolved Date Lateral epicondylitis of left elbow 01/14/2022 04/04/2022 Right arm weakness 06/25/2021 09/17/2021 Decreased ROM of right shoulder 06/25/2021 09/17/2021 Tear of right rotator cuff 06/22/202106/22 Status post subacromial decompression 05/29/2020 09/17/2021 Plantar fasciitis 08/02/2019 09/17/2021 Sprain of wrist, left 02/18/2015 05/24/2018 Hypoglycemia 10/24/2011 03/08/2012 Contact dermatitis and other eczema, due to unspecified cause 10/18/2011 01/03/2017 Eczematous dermatitis: hands 11/23/201006/2013 Xerosis cutis 11/23/2010 02/18/2013 Depression 08/30/2010 11/27/2018 Mild dysplasia of cervix 10/27/2009 012 Impaired glucose tolerance test 01/31/2008 04/16/2008 Onychia and paronychia of toe 09/26/2007 Nonspecific abnormal results of liver function s tudy 08/24/2007 04/19/2011 Overview: AST 56, ALT 80 in 08-19: 85/79 on repeat ESR 29 in 08-19 HBsAg negative, HCV negative, NL iron studies in 08-19 Anemia, unspecified 01/10/2007 03/08/2012 Retention of urine, unspecified 01/01/2007 11/27/2018 Fibromyalgia 04/19/2011 documented as of this encounter (statuses as of 01/13/2023) [facility] History of Past illness Narrative* Problem Noted Date Resolved Date Lateral epicondylitis of left elbow 01/14/2022 04/04/2022 Right arm weakness 06/25/2021 09/17/2021 Decreased ROM of right shoulder 06/25/2021 09/17/2021 Tear of right rotator cuff 06/22/202106/22 Status post subacromial decompression 05/29/2020 09/17/2021 Plantar fasciitis 08/02/2019 09/17/2021 Sprain of wrist, left 02/18/2015 05/24/2018 Hypoglycemia 10/24/2011 03/08/2012 Contact dermatitis and other eczema, due to unspecified cause 10/18/2011 01/03/2017 Eczematous dermatitis: hands 11/23/201006/2013 Xerosis cutis 11/23/2010 02/18/2013 Depression 08/30/2010 11/27/2018 Mild dysplasia of cervix 10/27/2009 012 Impaired glucose tolerance test 01/31/2008 04/16/2008 Onychia and paronychia of toe 09/26/2007 Nonspecific abnormal results of liver function s tudy 08/24/2007 04/19/2011 Overview: AST 56, ALT 80 in 08-19: 85/79 on repeat ESR 29 in 08-19 HBsAg negative, HCV negative, NL iron studies in 08-19 Anemia, unspecified 01/10/2007 03/08/2012 Retention of urine, unspecified 01/01/2007 11/27/2018 Fibromyalgia 04/19/2011 documented as of this encounter (statuses as of 01/16/2023) [facility] History of Past illness Narrative* Problem Noted Date Resolved Date Lateral epicondylitis of left elbow 01/14/2022 04/04/2022 Right arm weakness 06/25/2021 09/17/2021 Decreased ROM of right shoulder 06/25/2021 09/17/2021 Tear of right rotator cuff 06/22/202106/22 Status post subacromial decompression 05/29/2020 09/17/2021 Plantar fasciitis 08/02/2019 09/17/2021 Sprain of wrist, left 02/18/2015 05/24/2018 Hypoglycemia 10/24/2011 03/08/2012 Contact dermatitis and other eczema, due to unspecified cause 10/18/2011 01/03/2017 Eczematous dermatitis: hands 11/23/201006/2013 Xerosis cutis 11/23/2010 02/18/2013 Depression 08/30/2010 11/27/2018 Mild dysplasia of cervix 10/27/2009 012 Impaired glucose tolerance test 01/31/2008 04/16/2008 Onychia and paronychia of toe 09/26/2007 Nonspecific abnormal results of liver function s uridy 08/24/2007 04/19/2011 Overview: AST 56, ALT 80 in 08-19: 85/79 on repeat ESR 29 in 08-19 HBsAg negative, HCV negative, NL iron studies in 08-19 Anemia, unspecified 01/10/2007 03/08/2012 Retention of urine, unspecified 01/01/2007 11/27/2018 Fibromyalgia 04/19/2011 documented as of this encounter (statuses as of 01/17/2023) [facility] History of Past illness Narrative* Problem Noted Date Resolved Date Lateral epicondylitis of left elbow 01/14/2022 04/04/2022 Right arm weakness 06/25/2021 09/17/2021 Decreased ROM of right shoulder 06/25/2021 09/17/2021 Tear of right rotator cuff 06/22/202106/22 Status post subacromial decompression 05/29/2020 09/17/2021 Plantar fasciitis 08/02/2019 09/17/2021 Sprain of wrist, left 02/18/2015 05/24/2018 Hypoglycemia 10/24/2011 03/08/2012 Contact dermatitis and other eczema, due to unspecified cause 10/18/2011 01/03/2017 Eczematous dermatitis: hands 11/23/201006/2013 Xerosis cutis 11/23/2010 02/18/2013 Depression 08/30/2010 11/27/2018 Mild dysplasia of cervix 10/27/2009 012 Impaired glucose tolerance test 01/31/2008 04/16/2008 Onychia and paronychia of toe 09/26/2007 Nonspecific abnormal results of liver function s marsha 08/24/2007 04/19/2011 Overview: AST 56, ALT 80 in 08-19: 85/79 on repeat ESR 29 in 08-19 HBsAg negative, HCV negative, NL iron studies in 08-19 Anemia, unspecified 01/10/2007 03/08/2012 Retention of urine, unspecified 01/01/2007 11/27/2018 Fibromyalgia 04/19/2011 documented as of this encounter (statuses as of 01/18/2023) [facility] History of Past illness Narrative* Problem Noted Date Resolved Date Lateral epicondylitis of left elbow 01/14/2022 04/04/2022 Right arm weakness 06/25/2021 09/17/2021 Decreased ROM of right shoulder 06/25/2021 09/17/2021 Tear of right rotator cuff 06/22/202106/22 Status post subacromial decompression 05/29/2020 09/17/2021 Plantar fasciitis 08/02/2019 09/17/2021 Sprain of wrist, left 02/18/2015 05/24/2018 Hypoglycemia 10/24/2011 03/08/2012 Contact dermatitis and other eczema, due to unspecified cause 10/18/2011 01/03/2017 Eczematous dermatitis: hands 11/23/201006/2013 Xerosis cutis 11/23/2010 02/18/2013 Depression 08/30/2010 11/27/2018 Mild dysplasia of cervix 10/27/2009 012 Impaired glucose tolerance test 01/31/2008 04/16/2008 Onychia and paronychia of toe 09/26/2007 Nonspecific abnormal results of liver function s marsha 08/24/2007 04/19/2011 Overview: AST 56, ALT 80 in 08-19: 85/79 on repeat ESR 29 in 08-19 HBsAg negative, HCV negative, NL iron studies in 08-19 Anemia, unspecified 01/10/2007 03/08/2012 Retention of urine, unspecified 01/01/2007 11/27/2018 Fibromyalgia 04/19/2011 documented as of this encounter (statuses as of 01/23/2023) [facility] History of Past illness Narrative* Problem Noted Date Resolved Date Lateral epicondylitis of left elbow 01/14/2022 04/04/2022 Right arm weakness 06/25/2021 09/17/2021 Decreased ROM of right shoulder 06/25/2021 09/17/2021 Tear of right rotator cuff 06/22/202106/22 Status post subacromial decompression 05/29/2020 09/17/2021 Plantar fasciitis 08/02/2019 09/17/2021 Sprain of wrist, left 02/18/2015 05/24/2018 Hypoglycemia 10/24/2011 03/08/2012 Contact dermatitis and other eczema, due to unspecified cause 10/18/2011 01/03/2017 Eczematous dermatitis: hands 11/23/201006/2013 Xerosis cutis 11/23/2010 02/18/2013 Depression 08/30/2010 11/27/2018 Mild dysplasia of cervix 10/27/2009 012 Impaired glucose tolerance test 01/31/2008 04/16/2008 Onychia and paronychia of toe 09/26/2007 Nonspecific abnormal results of liver function s tudy 08/24/2007 04/19/2011 Overview: AST 56, ALT 80 in 08-19: 85/79 on repeat ESR 29 in 08-19 HBsAg negative, HCV negative, NL iron studies in 08-19 Anemia, unspecified 01/10/2007 03/08/2012 Retention of urine, unspecified 01/01/2007 11/27/2018 Fibromyalgia 04/19/2011 documented as of this encounter (statuses as of 01/26/2023) [facility] History of Past illness Narrative* Problem Noted Date Resolved Date Lateral epicondylitis of left elbow 01/14/2022 04/04/2022 Right arm weakness 06/25/2021 09/17/2021 Decreased ROM of right shoulder 06/25/2021 09/17/2021 Tear of right rotator cuff 06/22/202106/22 Status post subacromial decompression 05/29/2020 09/17/2021 Plantar fasciitis 08/02/2019 09/17/2021 Sprain of wrist, left 02/18/2015 05/24/2018 Hypoglycemia 10/24/2011 03/08/2012 Contact dermatitis and other eczema, due to unspecified cause 10/18/2011 01/03/2017 Eczematous dermatitis: hands 11/23/201006/2013 Xerosis cutis 11/23/2010 02/18/2013 Depression 08/30/2010 11/27/2018 Mild dysplasia of cervix 10/27/2009 012 Impaired glucose tolerance test 01/31/2008 04/16/2008 Onychia and paronychia of toe 09/26/2007 Nonspecific abnormal results of liver function s uridy 08/24/2007 04/19/2011 Overview: AST 56, ALT 80 in 08-19: 85/79 on repeat ESR 29 in 08-19 HBsAg negative, HCV negative, NL iron studies in 08-19 Anemia, unspecified 01/10/2007 03/08/2012 Retention of urine, unspecified 01/01/2007 11/27/2018 Fibromyalgia 04/19/2011 documented as of this encounter (statuses as of 01/27/2023) [facility] History of Past illness Narrative* Problem Noted Date Resolved Date Lateral epicondylitis of left elbow 01/14/2022 04/04/2022 Right arm weakness 06/25/2021 09/17/2021 Decreased ROM of right shoulder 06/25/2021 09/17/2021 Tear of right rotator cuff 06/22/202106/22 Status post subacromial decompression 05/29/2020 09/17/2021 Plantar fasciitis 08/02/2019 09/17/2021 Sprain of wrist, left 02/18/2015 05/24/2018 Hypoglycemia 10/24/2011 03/08/2012 Contact dermatitis and other eczema, due to unspecified cause 10/18/2011 01/03/2017 Eczematous dermatitis: hands 11/23/201006/2013 Xerosis cutis 11/23/2010 02/18/2013 Depression 08/30/2010 11/27/2018 Mild dysplasia of cervix 10/27/2009 012 Impaired glucose tolerance test 01/31/2008 04/16/2008 Onychia and paronychia of toe 09/26/2007 Nonspecific abnormal results of liver function s marsha 08/24/2007 04/19/2011 Overview: AST 56, ALT 80 in 08-19: 85/79 on repeat ESR 29 in 08-19 HBsAg negative, HCV negative, NL iron studies in 10- Anemia, unspecified 01/10/2007 03/08/2012 Retention of urine, unspecified 01/01/2007 11/27/2018 Fibromyalgia 04/19/2011 documented as of this encounter (statuses as of 02/02/2023) [facility] History of Past illness Narrative* Problem Noted Date Resolved Date Lateral epicondylitis of left elbow 01/14/2022 04/04/2022 Right arm weakness 06/25/2021 09/17/2021 Decreased ROM of right shoulder 06/25/2021 09/17/2021 Tear of right rotator cuff 06/22/202106/22 Hypercalcemia 05/19/2021 02/06/2023 Status post subacromial decompression 05/29/2020 09/17/2021 Plantar fasciitis 08/02/2019 09/17/2021 Ureterolithiasis 07/18/2019 02/06/2023 Pain in left shoulder 09/20/2018 02/06/2023 Sprain of wrist, left 02/18/2015 05/24/2018 Hypoglycemia 10/24/2011 03/08/2012 Contact dermatitis and other eczema, due to unspecified cause 10/18/2011 01/03/2017 Eczematous dermatitis: hands 11/23/201006/2013 Xerosis cutis 11/23/2010 02/18/2013 Depression 08/30/2010 11/27/2018 Mild dysplasia of cervix 10/27/2009 012 Impaired glucose tolerance test 01/31/2008 04/16/2008 Onychia and paronychia of toe 09/26/2007 Nonspecific abnormal results of liver function s marsha 08/24/2007 04/19/2011 Overview: AST 56, ALT 80 in 08-19: 85/79 on repeat ESR 29 in 08-19 HBsAg negative, HCV negative, NL iron studies in 08-19 Anemia, unspecified 01/10/2007 03/08/2012 Retention of urine, unspecified 01/01/2007 11/27/2018 Fibromyalgia 04/19/2011 documented as of this encounter (statuses as of 02/13/2023) [facility] History of Past illness Narrative* Problem Noted Date Resolved Date Lateral epicondylitis of left elbow 01/14/2022 04/04/2022 Right arm weakness 06/25/2021 09/17/2021 Decreased ROM of right shoulder 06/25/2021 09/17/2021 Tear of right rotator cuff 06/22/202106/22 Hypercalcemia 05/19/2021 02/06/2023 Status post subacromial decompression 05/29/2020 09/17/2021 Plantar fasciitis 08/02/2019 09/17/2021 Ureterolithiasis 07/18/2019 02/06/2023 Pain in left shoulder 09/20/2018 02/06/2023 Sprain of wrist, left 02/18/2015 05/24/2018 Hypoglycemia 10/24/2011 03/08/2012 Contact dermatitis and other eczema, due to unspecified cause 10/18/2011 01/03/2017 Eczematous dermatitis: hands 11/23/201006/2013 Xerosis cutis 11/23/2010 02/18/2013 Depression 08/30/2010 11/27/2018 Mild dysplasia of cervix 10/27/2009 012 Impaired glucose tolerance test 01/31/2008 04/16/2008 Onychia and paronychia of toe 09/26/2007 Nonspecific abnormal results of liver function s tudy 08/24/2007 04/19/2011 Overview: AST 56, ALT 80 in 08-19: 85/79 on repeat ESR 29 in 08-19 HBsAg negative, HCV negative, NL iron studies in 08-19 Anemia, unspecified 01/10/2007 03/08/2012 Retention of urine, unspecified 01/01/2007 11/27/2018 Fibromyalgia 04/19/2011 documented as of this encounter (statuses as of 02/16/2023) [facility] History of Past illness Narrative* Problem Noted Date Resolved Date Lateral epicondylitis of left elbow 01/14/2022 04/04/2022 Right arm weakness 06/25/2021 09/17/2021 Decreased ROM of right shoulder 06/25/2021 09/17/2021 Tear of right rotator cuff 06/22/202106/22 Hypercalcemia 05/19/2021 02/06/2023 Status post subacromial decompression 05/29/2020 09/17/2021 Plantar fasciitis 08/02/2019 09/17/2021 Ureterolithiasis 07/18/2019 02/06/2023 Pain in left shoulder 09/20/2018 02/06/2023 Sprain of wrist, left 02/18/2015 05/24/2018 Hypoglycemia 10/24/2011 03/08/2012 Contact dermatitis and other eczema, due to unspecified cause 10/18/2011 01/03/2017 Eczematous dermatitis: hands 11/23/201006/2013 Xerosis cutis 11/23/2010 02/18/2013 Depression 08/30/2010 11/27/2018 Mild dysplasia of cervix 10/27/2009 012 Impaired glucose tolerance test 01/31/2008 04/16/2008 Onychia and paronychia of toe 09/26/2007 Nonspecific abnormal results of liver function s tudy 08/24/2007 04/19/2011 Overview: AST 56, ALT 80 in 08-19: 85/79 on repeat ESR 29 in 08-19 HBsAg negative, HCV negative, NL iron studies in 08-19 Anemia, unspecified 01/10/2007 03/08/2012 Retention of urine, unspecified 01/01/2007 11/27/2018 Fibromyalgia 04/19/2011 documented as of this encounter (statuses as of 02/17/2023) [facility] History of Past illness Narrative* Problem Noted Date Resolved Date Lateral epicondylitis of left elbow 01/14/2022 04/04/2022 Right arm weakness 06/25/2021 09/17/2021 Decreased ROM of right shoulder 06/25/2021 09/17/2021 Tear of right rotator cuff 06/22/202106/22 Hypercalcemia 05/19/2021 02/06/2023 Status post subacromial decompression 05/29/2020 09/17/2021 Plantar fasciitis 08/02/2019 09/17/2021 Ureterolithiasis 07/18/2019 02/06/2023 Pain in left shoulder 09/20/2018 02/06/2023 Sprain of wrist, left 02/18/2015 05/24/2018 Hypoglycemia 10/24/2011 03/08/2012 Contact dermatitis and other eczema, due to unspecified cause 10/18/2011 01/03/2017 Eczematous dermatitis: hands 11/23/201006/2013 Xerosis cutis 11/23/2010 02/18/2013 Depression 08/30/2010 11/27/2018 Mild dysplasia of cervix 10/27/2009 012 Impaired glucose tolerance test 01/31/2008 04/16/2008 Onychia and paronychia of toe 09/26/2007 Nonspecific abnormal results of liver function s tudy 08/24/2007 04/19/2011 Overview: AST 56, ALT 80 in 08-19: 85/79 on repeat ESR 29 in 08-19 HBsAg negative, HCV negative, NL iron studies in 08-19 Anemia, unspecified 01/10/2007 03/08/2012 Retention of urine, unspecified 01/01/2007 11/27/2018 Fibromyalgia 04/19/2011 documented as of this encounter (statuses as of 03/03/2023) [facility] History of Past illness Narrative* Problem Noted Date Resolved Date Lateral epicondylitis of left elbow 01/14/2022 04/04/2022 Right arm weakness 06/25/2021 09/17/2021 Decreased ROM of right shoulder 06/25/2021 09/17/2021 Tear of right rotator cuff 06/22/202106/22 Hypercalcemia 05/19/2021 02/06/2023 Status post subacromial decompression 05/29/2020 09/17/2021 Plantar fasciitis 08/02/2019 09/17/2021 Ureterolithiasis 07/18/2019 02/06/2023 Pain in left shoulder 09/20/2018 02/06/2023 Sprain of wrist, left 02/18/2015 05/24/2018 Hypoglycemia 10/24/2011 03/08/2012 Contact dermatitis and other eczema, due to unspecified cause 10/18/2011 01/03/2017 Eczematous dermatitis: hands 11/23/201006/2013 Xerosis cutis 11/23/2010 02/18/2013 Depression 08/30/2010 11/27/2018 Mild dysplasia of cervix 10/27/2009 012 Impaired glucose tolerance test 01/31/2008 04/16/2008 Onychia and paronychia of toe 09/26/2007 Nonspecific abnormal results of liver function s tudy 08/24/2007 04/19/2011 Overview: AST 56, ALT 80 in 08-19: 85/79 on repeat ESR 29 in 08-19 HBsAg negative, HCV negative, NL iron studies in 08-19 Anemia, unspecified 01/10/2007 03/08/2012 Retention of urine, unspecified 01/01/2007 11/27/2018 Fibromyalgia 04/19/2011 documented as of this encounter (statuses as of 03/10/2023) [facility] History of Past illness Narrative* Problem Noted Date Resolved Date Lateral epicondylitis of left elbow 01/14/2022 04/04/2022 Right arm weakness 06/25/2021 09/17/2021 Decreased ROM of right shoulder 06/25/2021 09/17/2021 Tear of right rotator cuff 06/22/202106/22 Hypercalcemia 05/19/2021 02/06/2023 Status post subacromial decompression 05/29/2020 09/17/2021 Plantar fasciitis 08/02/2019 09/17/2021 Ureterolithiasis 07/18/2019 02/06/2023 Pain in left shoulder 09/20/2018 02/06/2023 Sprain of wrist, left 02/18/2015 05/24/2018 Hypoglycemia 10/24/2011 03/08/2012 Contact dermatitis and other eczema, due to unspecified cause 10/18/2011 01/03/2017 Eczematous dermatitis: hands 11/23/201006/2013 Xerosis cutis 11/23/2010 02/18/2013 Depression 08/30/2010 11/27/2018 Mild dysplasia of cervix 10/27/2009 012 Impaired glucose tolerance test 01/31/2008 04/16/2008 Onychia and paronychia of toe 09/26/2007 Nonspecific abnormal results of liver function s uridy 08/24/2007 04/19/2011 Overview: AST 56, ALT 80 in 08-19: 85/79 on repeat ESR 29 in 08-19 HBsAg negative, HCV negative, NL iron studies in 08-19 Anemia, unspecified 01/10/2007 03/08/2012 Retention of urine, unspecified 01/01/2007 11/27/2018 Fibromyalgia 04/19/2011 documented as of this encounter (statuses as of 03/14/2023) [facility] History of Past illness Narrative* Problem Noted Date Resolved Date Lateral epicondylitis of left elbow 01/14/2022 04/04/2022 Right arm weakness 06/25/2021 09/17/2021 Decreased ROM of right shoulder 06/25/2021 09/17/2021 Tear of right rotator cuff 06/22/202106/22 Hypercalcemia 05/19/2021 02/06/2023 Status post subacromial decompression 05/29/2020 09/17/2021 Plantar fasciitis 08/02/2019 09/17/2021 Ureterolithiasis 07/18/2019 02/06/2023 Pain in left shoulder 09/20/2018 02/06/2023 Sprain of wrist, left 02/18/2015 05/24/2018 Hypoglycemia 10/24/2011 03/08/2012 Contact dermatitis and other eczema, due to unspecified cause 10/18/2011 01/03/2017 Eczematous dermatitis: hands 11/23/201006/2013 Xerosis cutis 11/23/2010 02/18/2013 Depression 08/30/2010 11/27/2018 Mild dysplasia of cervix 10/27/2009 012 Impaired glucose tolerance test 01/31/2008 04/16/2008 Onychia and paronychia of toe 09/26/2007 Nonspecific abnormal results of liver function s uridy 08/24/2007 04/19/2011 Overview: AST 56, ALT 80 in 08-19: 85/79 on repeat ESR 29 in 08-19 HBsAg negative, HCV negative, NL iron studies in 08-19 Anemia, unspecified 01/10/2007 03/08/2012 Retention of urine, unspecified 01/01/2007 11/27/2018 Fibromyalgia 04/19/2011 documented as of this encounter (statuses as of 03/16/2023) [facility] History of Past illness Narrative* Problem Noted Date Resolved Date Lateral epicondylitis of left elbow 01/14/2022 04/04/2022 Right arm weakness 06/25/2021 09/17/2021 Decreased ROM of right shoulder 06/25/2021 09/17/2021 Tear of right rotator cuff 06/22/202106/22 Hypercalcemia 05/19/2021 02/06/2023 Status post subacromial decompression 05/29/2020 09/17/2021 Plantar fasciitis 08/02/2019 09/17/2021 Ureterolithiasis 07/18/2019 02/06/2023 Pain in left shoulder 09/20/2018 02/06/2023 Sprain of wrist, left 02/18/2015 05/24/2018 Hypoglycemia 10/24/2011 03/08/2012 Contact dermatitis and other eczema, due to unspecified cause 10/18/2011 01/03/2017 Eczematous dermatitis: hands 11/23/201006/2013 Xerosis cutis 11/23/2010 02/18/2013 Depression 08/30/2010 11/27/2018 Mild dysplasia of cervix 10/27/2009 012 Impaired glucose tolerance test 01/31/2008 04/16/2008 Onychia and paronychia of toe 09/26/2007 Nonspecific abnormal results of liver function s uridy 08/24/2007 04/19/2011 Overview: AST 56, ALT 80 in 08-19: 85/79 on repeat ESR 29 in 08-19 HBsAg negative, HCV negative, NL iron studies in 08-19 Anemia, unspecified 01/10/2007 03/08/2012 Retention of urine, unspecified 01/01/2007 11/27/2018 Fibromyalgia 04/19/2011 documented as of this encounter (statuses as of 03/21/2023) [facility] History of Past illness Narrative* Problem Noted Date Resolved Date Lateral epicondylitis of left elbow 01/14/2022 04/04/2022 Right arm weakness 06/25/2021 09/17/2021 Decreased ROM of right shoulder 06/25/2021 09/17/2021 Tear of right rotator cuff 06/22/202106/22 Hypercalcemia 05/19/2021 02/06/2023 Status post subacromial decompression 05/29/2020 09/17/2021 Plantar fasciitis 08/02/2019 09/17/2021 Ureterolithiasis 07/18/2019 02/06/2023 Pain in left shoulder 09/20/2018 02/06/2023 Sprain of wrist, left 02/18/2015 05/24/2018 Hypoglycemia 10/24/2011 03/08/2012 Contact dermatitis and other eczema, due to unspecified cause 10/18/2011 01/03/2017 Eczematous dermatitis: hands 11/23/201006/2013 Xerosis cutis 11/23/2010 02/18/2013 Depression 08/30/2010 11/27/2018 Mild dysplasia of cervix 10/27/2009 012 Impaired glucose tolerance test 01/31/2008 04/16/2008 Onychia and paronychia of toe 09/26/2007 Nonspecific abnormal results of liver function s tudy 08/24/2007 04/19/2011 Overview: AST 56, ALT 80 in 08-19: 85/79 on repeat ESR 29 in 08-19 HBsAg negative, HCV negative, NL iron studies in 08-19 Anemia, unspecified 01/10/2007 03/08/2012 Retention of urine, unspecified 01/01/2007 11/27/2018 Fibromyalgia 04/19/2011 documented as of this encounter (statuses as of 03/21/2023) [facility] History of Past illness Narrative* Problem Noted Date Resolved Date Lateral epicondylitis of left elbow 01/14/2022 04/04/2022 Right arm weakness 06/25/2021 09/17/2021 Decreased ROM of right shoulder 06/25/2021 09/17/2021 Tear of right rotator cuff 06/22/202106/22 Hypercalcemia 05/19/2021 02/06/2023 Status post subacromial decompression 05/29/2020 09/17/2021 Plantar fasciitis 08/02/2019 09/17/2021 Ureterolithiasis 07/18/2019 02/06/2023 Pain in left shoulder 09/20/2018 02/06/2023 Sprain of wrist, left 02/18/2015 05/24/2018 Hypoglycemia 10/24/2011 03/08/2012 Contact dermatitis and other eczema, due to unspecified cause 10/18/2011 01/03/2017 Eczematous dermatitis: hands 11/23/201006/2013 Xerosis cutis 11/23/2010 02/18/2013 Depression 08/30/2010 11/27/2018 Mild dysplasia of cervix 10/27/2009 012 Impaired glucose tolerance test 01/31/2008 04/16/2008 Onychia and paronychia of toe 09/26/2007 Nonspecific abnormal results of liver function s tudy 08/24/2007 04/19/2011 Overview: AST 56, ALT 80 in 08-19: 85/79 on repeat ESR 29 in 08-19 HBsAg negative, HCV negative, NL iron studies in 08-19 Anemia, unspecified 01/10/2007 03/08/2012 Retention of urine, unspecified 01/01/2007 11/27/2018 Fibromyalgia 04/19/2011 documented as of this encounter (statuses as of 03/22/2023) [facility] History of Past illness Narrative* Problem Noted Date Resolved Date Lateral epicondylitis of left elbow 01/14/2022 04/04/2022 Right arm weakness 06/25/2021 09/17/2021 Decreased ROM of right shoulder 06/25/2021 09/17/2021 Tear of right rotator cuff 06/22/202106/22 Hypercalcemia 05/19/2021 02/06/2023 Status post subacromial decompression 05/29/2020 09/17/2021 Plantar fasciitis 08/02/2019 09/17/2021 Ureterolithiasis 07/18/2019 02/06/2023 Pain in left shoulder 09/20/2018 02/06/2023 Sprain of wrist, left 02/18/2015 05/24/2018 Hypoglycemia 10/24/2011 03/08/2012 Contact dermatitis and other eczema, due to unspecified cause 10/18/2011 01/03/2017 Eczematous dermatitis: hands 11/23/201006/2013 Xerosis cutis 11/23/2010 02/18/2013 Depression 08/30/2010 11/27/2018 Mild dysplasia of cervix 10/27/2009 012 Impaired glucose tolerance test 01/31/2008 04/16/2008 Onychia and paronychia of toe 09/26/2007 Nonspecific abnormal results of liver function s tudy 08/24/2007 04/19/2011 Overview: AST 56, ALT 80 in 08-19: 85/79 on repeat ESR 29 in 08-19 HBsAg negative, HCV negative, NL iron studies in 08-19 Anemia, unspecified 01/10/2007 03/08/2012 Retention of urine, unspecified 01/01/2007 11/27/2018 Fibromyalgia 04/19/2011 documented as of this encounter (statuses as of 03/29/2023) [facility] History of Past illness Narrative* Problem Noted Date Resolved Date Lateral epicondylitis of left elbow 01/14/2022 04/04/2022 Right arm weakness 06/25/2021 09/17/2021 Decreased ROM of right shoulder 06/25/2021 09/17/2021 Tear of right rotator cuff 06/22/202106/22 Hypercalcemia 05/19/2021 02/06/2023 Status post subacromial decompression 05/29/2020 09/17/2021 Plantar fasciitis 08/02/2019 09/17/2021 Ureterolithiasis 07/18/2019 02/06/2023 Pain in left shoulder 09/20/2018 02/06/2023 Sprain of wrist, left 02/18/2015 05/24/2018 Hypoglycemia 10/24/2011 03/08/2012 Contact dermatitis and other eczema, due to unspecified cause 10/18/2011 01/03/2017 Eczematous dermatitis: hands 11/23/201006/2013 Xerosis cutis 11/23/2010 02/18/2013 Depression 08/30/2010 11/27/2018 Mild dysplasia of cervix 10/27/2009 012 Impaired glucose tolerance test 01/31/2008 04/16/2008 Onychia and paronychia of toe 09/26/2007 Nonspecific abnormal results of liver function s marsha 08/24/2007 04/19/2011 Overview: AST 56, ALT 80 in 08-19: 85/79 on repeat ESR 29 in 08-19 HBsAg negative, HCV negative, NL iron studies in 08-19 Anemia, unspecified 01/10/2007 03/08/2012 Retention of urine, unspecified 01/01/2007 11/27/2018 Fibromyalgia 04/19/2011 documented as of this encounter (statuses as of 04/11/2023) [facility] History of Past illness Narrative* Problem Noted Date Resolved Date Lateral epicondylitis of left elbow 01/14/2022 04/04/2022 Right arm weakness 06/25/2021 09/17/2021 Decreased ROM of right shoulder 06/25/2021 09/17/2021 Tear of right rotator cuff 06/22/202106/22 Hypercalcemia 05/19/2021 02/06/2023 Status post subacromial decompression 05/29/2020 09/17/2021 Plantar fasciitis 08/02/2019 09/17/2021 Ureterolithiasis 07/18/2019 02/06/2023 Pain in left shoulder 09/20/2018 02/06/2023 Sprain of wrist, left 02/18/2015 05/24/2018 Hypoglycemia 10/24/2011 03/08/2012 Contact dermatitis and other eczema, due to unspecified cause 10/18/2011 01/03/2017 Eczematous dermatitis: hands 11/23/201006/2013 Xerosis cutis 11/23/2010 02/18/2013 Depression 08/30/2010 11/27/2018 Mild dysplasia of cervix 10/27/2009 012 Impaired glucose tolerance test 01/31/2008 04/16/2008 Onychia and paronychia of toe 09/26/2007 Nonspecific abnormal results of liver function s marsha 08/24/2007 04/19/2011 Overview: AST 56, ALT 80 in 08-19: 85/79 on repeat ESR 29 in - HBsAg negative, HCV negative, NL iron studies in 10- Anemia, unspecified 01/10/2007 03/08/2012 Retention of urine, unspecified 01/01/2007 11/27/2018 Fibromyalgia 04/19/2011 documented as of this encounter (statuses as of 04/19/2023) [facility] History of Past illness Narrative* Problem Noted Date Resolved Date Lateral epicondylitis of left elbow 01/14/2022 04/04/2022 Right arm weakness 06/25/2021 09/17/2021 Decreased ROM of right shoulder 06/25/2021 09/17/2021 Tear of right rotator cuff 06/22/202106/22 Hypercalcemia 05/19/2021 02/06/2023 Status post subacromial decompression 05/29/2020 09/17/2021 Plantar fasciitis 08/02/2019 09/17/2021 Ureterolithiasis 07/18/2019 02/06/2023 Pain in left shoulder 09/20/2018 02/06/2023 Sprain of wrist, left 02/18/2015 05/24/2018 Hypoglycemia 10/24/2011 03/08/2012 Contact dermatitis and other eczema, due to unspecified cause 10/18/2011 01/03/2017 Eczematous dermatitis: hands 11/23/201006/2013 Xerosis cutis 11/23/2010 02/18/2013 Depression 08/30/2010 11/27/2018 Mild dysplasia of cervix 10/27/2009 012 Impaired glucose tolerance test 01/31/2008 04/16/2008 Onychia and paronychia of toe 09/26/2007 Nonspecific abnormal results of liver function s tudy 08/24/2007 04/19/2011 Overview: AST 56, ALT 80 in 08-19: 85/79 on repeat ESR 29 in - HBsAg negative, HCV negative, NL iron studies in 10 Anemia, unspecified 01/10/2007 03/08/2012 Retention of urine, unspecified 01/01/2007 11/27/2018 Fibromyalgia 04/19/2011 documented as of this encounter (statuses as of 05/03/2023) [facility] History of Past illness Narrative* Problem Noted Date Resolved Date Lateral epicondylitis of left elbow 01/14/2022 04/04/2022 Right arm weakness 06/25/2021 09/17/2021 Decreased ROM of right shoulder 06/25/2021 09/17/2021 Tear of right rotator cuff 06/22/202106/22 Hypercalcemia 05/19/2021 02/06/2023 Status post subacromial decompression 05/29/2020 09/17/2021 Plantar fasciitis 08/02/2019 09/17/2021 Ureterolithiasis 07/18/2019 02/06/2023 Pain in left shoulder 09/20/2018 02/06/2023 Sprain of wrist, left 02/18/2015 05/24/2018 Hypoglycemia 10/24/2011 03/08/2012 Contact dermatitis and other eczema, due to unspecified cause 10/18/2011 01/03/2017 Eczematous dermatitis: hands 11/23/201006/2013 Xerosis cutis 11/23/2010 02/18/2013 Depression 08/30/2010 11/27/2018 Mild dysplasia of cervix 10/27/2009 012 Impaired glucose tolerance test 01/31/2008 04/16/2008 Onychia and paronychia of toe 09/26/2007 Nonspecific abnormal results of liver function s tudy 08/24/2007 04/19/2011 Overview: AST 56, ALT 80 in 08-19: 85/79 on repeat ESR 29 in 08-19 HBsAg negative, HCV negative, NL iron studies in 08-19 Anemia, unspecified 01/10/2007 03/08/2012 Retention of urine, unspecified 01/01/2007 11/27/2018 Fibromyalgia 04/19/2011 documented as of this encounter (statuses as of 05/09/2023) [facility] History of Past illness Narrative* Problem Noted Date Diagnosed Date Resolved Date Lateral epicondylitis of left elbow 01/14/2022 04/04/2022 Right arm weakness 06/25/2021 Decreased ROM of right shoulder 06/25/2021 09/17/2021 Tear of right rotator cuff 06/22/2021 0 06/22/2021 Hypercalcemia 05/19/2021 02/06/2023 Status post subacromial decompression 05/29/2020 09/17/2021 Plantar fasciitis 08/02/2019 09/17/2021 Ureterolithiasis 07/18/2019 02/06/2023 Pain in left shoulder 09/20/20182022 Sprain of wrist, left 02/18/20152017 Hypoglycemia 10/24/2011 03/08/2012 Contact dermatitis and other eczema, due to unspecified cause 10/18/2011 01/03/2017 Eczematous dermatitis: hands 11/23/2010 02/18/2013 Xerosis cutis 11/23/2010 02/18/2013 Depression 08/30/2010 11/27/2018 Mild dysplasia of cervix 10/27/2009 Impaired glucose tolerance test 01/31/2008 04/16/2008 Onychia and paronychia of toe 09/26/2007 02/18/2013 Nonspecific abnormal results of liver function study 08/24/2007 04/19/2011 Overview: AST 56, ALT 80 in 08-19: 85/79 on repeat ESR 29 in 08-19 HBsAg negative, HCV negative, NL iron studies in 08-19 Anemia, unspecified 01/10/2007 03/08/20 12 Retention of urine, unspecified 01/01/2007 11/27/2018 Fibromyalgia 04/19/2011 documented as of this encounter (statuses as of 05/26/2023) [facility] History of Past illness Narrative* Problem Noted Date Diagnosed Date Resolved Date Lateral epicondylitis of left elbow 01/14/2022 04/04/2022 Right arm weakness 06/25/2021 Decreased ROM of right shoulder 06/25/2021 09/17/2021 Tear of right rotator cuff 06/22/2021 0 06/22/2021 Hypercalcemia 05/19/2021 02/06/2023 Status post subacromial decompression 05/29/2020 09/17/2021 Plantar fasciitis 08/02/2019 09/17/2021 Ureterolithiasis 07/18/2019 02/06/2023 Pain in left shoulder 09/20/20182022 Sprain of wrist, left 02/18/20152017 Hypoglycemia 10/24/2011 03/08/2012 Contact dermatitis and other eczema, due to unspecified cause 10/18/2011 01/03/2017 Eczematous dermatitis: hands 11/23/2010 02/18/2013 Xerosis cutis 11/23/2010 02/18/2013 Depression 08/30/2010 11/27/2018 Mild dysplasia of cervix 10/27/2009 Impaired glucose tolerance test 01/31/2008 04/16/2008 Onychia and paronychia of toe 09/26/2007 02/18/2013 Nonspecific abnormal results of liver function study 08/24/2007 04/19/2011 Overview: AST 56, ALT 80 in 08-19: 85/79 on repeat ESR 29 in 08-19 HBsAg negative, HCV negative, NL iron studies in 08-19 Anemia, unspecified 01/10/2007 03/08/20 12 Retention of urine, unspecified 01/01/2007 11/27/2018 Fibromyalgia 04/19/2011 documented as of this encounter (statuses as of 05/26/2023) [facility] History of Past illness Narrative* Problem Noted Date Diagnosed Date Resolved Date Lateral epicondylitis of left elbow 01/14/2022 04/04/2022 Right arm weakness 06/25/2021 Decreased ROM of right shoulder 06/25/2021 09/17/2021 Tear of right rotator cuff 06/22/2021 0 06/22/2021 Hypercalcemia 05/19/2021 02/06/2023 Status post subacromial decompression 05/29/2020 09/17/2021 Plantar fasciitis 08/02/2019 09/17/2021 Ureterolithiasis 07/18/2019 02/06/2023 Pain in left shoulder 09/20/20182022 Sprain of wrist, left 02/18/20152017 Hypoglycemia 10/24/2011 03/08/2012 Contact dermatitis and other eczema, due to unspecified cause 10/18/2011 01/03/2017 Eczematous dermatitis: hands 11/23/2010 02/18/2013 Xerosis cutis 11/23/2010 02/18/2013 Depression 08/30/2010 11/27/2018 Mild dysplasia of cervix 10/27/2009 Impaired glucose tolerance test 01/31/2008 04/16/2008 Onychia and paronychia of toe 09/26/2007 02/18/2013 Nonspecific abnormal results of liver function study 08/24/2007 04/19/2011 Overview: AST 56, ALT 80 in 08-19: 85/79 on repeat ESR 29 in 08-19 HBsAg negative, HCV negative, NL iron studies in 08-19 Anemia, unspecified 01/10/2007 03/08/20 12 Retention of urine, unspecified 01/01/2007 11/27/2018 Fibromyalgia 04/19/2011 documented as of this encounter (statuses as of 05/29/2023) [facility] History of Past illness Narrative* Problem Noted Date Diagnosed Date Resolved Date Lateral epicondylitis of left elbow 01/14/2022 04/04/2022 Right arm weakness 06/25/2021 Decreased ROM of right shoulder 06/25/2021 09/17/2021 Tear of right rotator cuff 06/22/2021 0 06/22/2021 Hypercalcemia 05/19/2021 02/06/2023 Status post subacromial decompression 05/29/2020 09/17/2021 Plantar fasciitis 08/02/2019 09/17/2021 Ureterolithiasis 07/18/2019 02/06/2023 Pain in left shoulder 09/20/20182022 Sprain of wrist, left 02/18/20152017 Hypoglycemia 10/24/2011 03/08/2012 Contact dermatitis and other eczema, due to unspecified cause 10/18/2011 01/03/2017 Eczematous dermatitis: hands 11/23/2010 02/18/2013 Xerosis cutis 11/23/2010 02/18/2013 Depression 08/30/2010 11/27/2018 Mild dysplasia of cervix 10/27/2009 Impaired glucose tolerance test 01/31/2008 04/16/2008 Onychia and paronychia of toe 09/26/2007 02/18/2013 Nonspecific abnormal results of liver function study 08/24/2007 04/19/2011 Overview: AST 56, ALT 80 in 08-19: 85/79 on repeat ESR 29 in 08-19 HBsAg negative, HCV negative, NL iron studies in 08-19 Anemia, unspecified 01/10/2007 03/08/20 12 Retention of urine, unspecified 01/01/2007 11/27/2018 Fibromyalgia 04/19/2011 documented as of this encounter (statuses as of 05/30/2023) [facility] History of Past illness Narrative* Problem Noted Date Diagnosed Date Resolved Date Lateral epicondylitis of left elbow 01/14/2022 04/04/2022 Right arm weakness 06/25/2021 Decreased ROM of right shoulder 06/25/2021 09/17/2021 Tear of right rotator cuff 06/22/2021 0 06/22/2021 Hypercalcemia 05/19/2021 02/06/2023 Status post subacromial decompression 05/29/2020 09/17/2021 Plantar fasciitis 08/02/2019 09/17/2021 Ureterolithiasis 07/18/2019 02/06/2023 Pain in left shoulder 09/20/20182022 Sprain of wrist, left 02/18/20152017 Hypoglycemia 10/24/2011 03/08/2012 Contact dermatitis and other eczema, due to unspecified cause 10/18/2011 01/03/2017 Eczematous dermatitis: hands 11/23/2010 02/18/2013 Xerosis cutis 11/23/2010 02/18/2013 Depression 08/30/2010 11/27/2018 Mild dysplasia of cervix 10/27/2009 Impaired glucose tolerance test 01/31/2008 04/16/2008 Onychia and paronychia of toe 09/26/2007 02/18/2013 Nonspecific abnormal results of liver function study 08/24/2007 04/19/2011 Overview: AST 56, ALT 80 in 08-19: 85/79 on repeat ESR 29 in 08-19 HBsAg negative, HCV negative, NL iron studies in 08-19 Anemia, unspecified 01/10/2007 03/08/20 12 Retention of urine, unspecified 01/01/2007 11/27/2018 Fibromyalgia 04/19/2011 documented as of this encounter (statuses as of 07/06/2023) [facility] History of Past illness Narrative* Problem Noted Date Diagnosed Date Resolved Date Lateral epicondylitis of left elbow 01/14/2022 04/04/2022 Right arm weakness 06/25/2021 Decreased ROM of right shoulder 06/25/2021 09/17/2021 Tear of right rotator cuff 06/22/2021 0 06/22/2021 Hypercalcemia 05/19/2021 02/06/2023 Status post subacromial decompression 05/29/2020 09/17/2021 Plantar fasciitis 08/02/2019 09/17/2021 Ureterolithiasis 07/18/2019 02/06/2023 Pain in left shoulder 09/20/20182022 Sprain of wrist, left 02/18/20152017 Hypoglycemia 10/24/2011 03/08/2012 Contact dermatitis and other eczema, due to unspecified cause 10/18/2011 01/03/2017 Eczematous dermatitis: hands 11/23/2010 02/18/2013 Xerosis cutis 11/23/2010 02/18/2013 Depression 08/30/2010 11/27/2018 Mild dysplasia of cervix 10/27/2009 Impaired glucose tolerance test 01/31/2008 04/16/2008 Onychia and paronychia of toe 09/26/2007 02/18/2013 Nonspecific abnormal results of liver function study 08/24/2007 04/19/2011 Overview: AST 56, ALT 80 in 08-19: 85/79 on repeat ESR 29 in 08-19 HBsAg negative, HCV negative, NL iron studies in 08-19 Anemia, unspecified 01/10/2007 03/08/20 12 Retention of urine, unspecified 01/01/2007 11/27/2018 Fibromyalgia 04/19/2011 documented as of this encounter (statuses as of 07/24/2023) [facility] History of Past illness Narrative* Problem Noted Date Diagnosed Date Resolved Date Lateral epicondylitis of left elbow 01/14/2022 04/04/2022 Right arm weakness 06/25/2021 Decreased ROM of right shoulder 06/25/2021 09/17/2021 Tear of right rotator cuff 06/22/2021 0 06/22/2021 Hypercalcemia 05/19/2021 02/06/2023 Status post subacromial decompression 05/29/2020 09/17/2021 Plantar fasciitis 08/02/2019 09/17/2021 Ureterolithiasis 07/18/2019 02/06/2023 Pain in left shoulder 09/20/20182022 Sprain of wrist, left 02/18/20152017 Hypoglycemia 10/24/2011 03/08/2012 Contact dermatitis and other eczema, due to unspecified cause 10/18/2011 01/03/2017 Eczematous dermatitis: hands 11/23/2010 02/18/2013 Xerosis cutis 11/23/2010 02/18/2013 Depression 08/30/2010 11/27/2018 Mild dysplasia of cervix 10/27/2009 Impaired glucose tolerance test 01/31/2008 04/16/2008 Onychia and paronychia of toe 09/26/2007 02/18/2013 Nonspecific abnormal results of liver function study 08/24/2007 04/19/2011 Overview: AST 56, ALT 80 in 08-19: 85/79 on repeat ESR 29 in 08-19 HBsAg negative, HCV negative, NL iron studies in 08-19 Anemia, unspecified 01/10/2007 03/08/20 12 Retention of urine, unspecified 01/01/2007 11/27/2018 Fibromyalgia 04/19/2011 documented as of this encounter (statuses as of 08/04/2023) [facility]11[facility] History of Present illness Narrative* Neisha Amos, RT(R) - 09/24/2021 10:45 AM EST Radiology Service Progress Note PATIENT NAME: Sid Lezama DATE OF SERVICE: September 24, 2021 TIME: 10:16 AM PATIENT IDENTITY VERIFICATION COMPLETED USING TWO (2) IDENTIFIERS: Name and Date of confirmedby patient verbally. FALL SCREENING: Has the patient had 2 falls in the last year or 1 fall with injury or currently using an Ambulatory Assistive Device (Walker, Cane, Wheelchair, Crutches, etc.)? No PATIENT GENDER DATA: Female. status: : No status: NO. PATIENT RELEVANT IMPLANT DATA REVIEWED: Not Applicable RADIOLOGY DEPARTMENT: General X-ray: Exam(s) Completed: Chest X-Ray PERIPHERAL IV DATA: Not applicable SIGNED BY: RT Jorge(R) September 24, 2021 10:16 AM [facility] History of Past illness Narrative* Problem Noted Date Resolved Date Right arm weakness 06/25/2021 09/17/2021 Decreased ROM of right shoulder 06/25/2021 09/17/2021 Tear of right rotator cuff 06/22/202106/22 Impingement syndrome of right shoulder 06/22/2021 Status post subacromial decompression 05/29/2020 09/17/2021 Plantar fasciitis 08/02/2019 09/17/2021 Sprain of wrist, left 02/18/2015 05/24/2018 Hypoglycemia 10/24/2011 03/08/2012 Contact dermatitis and other eczema, due to unspecified cause 10/18/2011 01/03/2017 Eczematous dermatitis: hands 11/23/201006/2013 Xerosis cutis 11/23/2010 02/18/2013 Depression 08/30/2010 11/27/2018 Mild dysplasia of cervix 10/27/2009 012 Impaired glucose tolerance test 01/31/2008 04/16/2008 Onychia and paronychia of toe 09/26/2007 Nonspecific abnormal results of liver function s tudy 08/24/2007 04/19/2011 Overview: AST 56, ALT 80 in 08-19: 85/79 on repeat ESR 29 in 08-19 HBsAg negative, HCV negative, NL iron studies in 08-19 Anemia, unspecified 01/10/2007 03/08/2012 Retention of urine, unspecified 01/01/2007 11/27/2018 Fibromyalgia 04/19/2011 documented as of this encounter (statuses as of 02/08/2022) [facility] History of Past illness Narrative* Problem Noted Date Resolved Date Right arm weakness 06/25/2021 09/17/2021 Decreased ROM of right shoulder 06/25/2021 09/17/2021 Tear of right rotator cuff 06/22/202106/22 Impingement syndrome of right shoulder 06/22/2021 Status post subacromial decompression 05/29/2020 09/17/2021 Plantar fasciitis 08/02/2019 09/17/2021 Sprain of wrist, left 02/18/2015 05/24/2018 Hypoglycemia 10/24/2011 03/08/2012 Contact dermatitis and other eczema, due to unspecified cause 10/18/2011 01/03/2017 Eczematous dermatitis: hands 11/23/201006/2013 Xerosis cutis 11/23/2010 02/18/2013 Depression 08/30/2010 11/27/2018 Mild dysplasia of cervix 10/27/2009 012 Impaired glucose tolerance test 01/31/2008 04/16/2008 Onychia and paronychia of toe 09/26/2007 Nonspecific abnormal results of liver function s tudy 08/24/2007 04/19/2011 Overview: AST 56, ALT 80 in 08-19: 85/79 on repeat ESR 29 in 08-19 HBsAg negative, HCV negative, NL iron studies in 08-19 Anemia, unspecified 01/10/2007 03/08/2012 Retention of urine, unspecified 01/01/2007 11/27/2018 Fibromyalgia 04/19/2011 documented as of this encounter (statuses as of 02/22/2022) [facility] History of Past illness Narrative* Problem Noted Date Resolved Date Right arm weakness 06/25/2021 09/17/2021 Decreased ROM of right shoulder 06/25/2021 09/17/2021 Tear of right rotator cuff 06/22/202106/22 Impingement syndrome of right shoulder 06/22/2021 Status post subacromial decompression 05/29/2020 09/17/2021 Plantar fasciitis 08/02/2019 09/17/2021 Sprain of wrist, left 02/18/2015 05/24/2018 Hypoglycemia 10/24/2011 03/08/2012 Contact dermatitis and other eczema, due to unspecified cause 10/18/2011 01/03/2017 Eczematous dermatitis: hands 11/23/201006/2013 Xerosis cutis 11/23/2010 02/18/2013 Depression 08/30/2010 11/27/2018 Mild dysplasia of cervix 10/27/2009 012 Impaired glucose tolerance test 01/31/2008 04/16/2008 Onychia and paronychia of toe 09/26/2007 Nonspecific abnormal results of liver function s tudy 08/24/2007 04/19/2011 Overview: AST 56, ALT 80 in 08-19: 85/79 on repeat ESR 29 in 08-19 HBsAg negative, HCV negative, NL iron studies in 08-19 Anemia, unspecified 01/10/2007 03/08/2012 Retention of urine, unspecified 01/01/2007 11/27/2018 Fibromyalgia 04/19/2011 documented as of this encounter (statuses as of 02/28/2022) [facility] History of Past illness Narrative* Problem Noted Date Resolved Date Right arm weakness 06/25/2021 09/17/2021 Decreased ROM of right shoulder 06/25/2021 09/17/2021 Tear of right rotator cuff 06/22/202106/22 Impingement syndrome of right shoulder 06/22/2021 Status post subacromial decompression 05/29/2020 09/17/2021 Plantar fasciitis 08/02/2019 09/17/2021 Sprain of wrist, left 02/18/2015 05/24/2018 Hypoglycemia 10/24/2011 03/08/2012 Contact dermatitis and other eczema, due to unspecified cause 10/18/2011 01/03/2017 Eczematous dermatitis: hands 11/23/201006/2013 Xerosis cutis 11/23/2010 02/18/2013 Depression 08/30/2010 11/27/2018 Mild dysplasia of cervix 10/27/2009 012 Impaired glucose tolerance test 01/31/2008 04/16/2008 Onychia and paronychia of toe 09/26/2007 Nonspecific abnormal results of liver function s uridy 08/24/2007 04/19/2011 Overview: AST 56, ALT 80 in 08-19: 85/79 on repeat ESR 29 in 08-19 HBsAg negative, HCV negative, NL iron studies in 08-19 Anemia, unspecified 01/10/2007 03/08/2012 Retention of urine, unspecified 01/01/2007 11/27/2018 Fibromyalgia 04/19/2011 documented as of this encounter (statuses as of 03/07/2022) [facility] History of Past illness Narrative* Problem Noted Date Resolved Date Right arm weakness 06/25/2021 09/17/2021 Decreased ROM of right shoulder 06/25/2021 09/17/2021 Tear of right rotator cuff 06/22/202106/22 Impingement syndrome of right shoulder 06/22/2021 Status post subacromial decompression 05/29/2020 09/17/2021 Plantar fasciitis 08/02/2019 09/17/2021 Sprain of wrist, left 02/18/2015 05/24/2018 Hypoglycemia 10/24/2011 03/08/2012 Contact dermatitis and other eczema, due to unspecified cause 10/18/2011 01/03/2017 Eczematous dermatitis: hands 11/23/201006/2013 Xerosis cutis 11/23/2010 02/18/2013 Depression 08/30/2010 11/27/2018 Mild dysplasia of cervix 10/27/2009 012 Impaired glucose tolerance test 01/31/2008 04/16/2008 Onychia and paronychia of toe 09/26/2007 Nonspecific abnormal results of liver function s uridy 08/24/2007 04/19/2011 Overview: AST 56, ALT 80 in 08-19: 85/79 on repeat ESR 29 in 08-19 HBsAg negative, HCV negative, NL iron studies in 08-19 Anemia, unspecified 01/10/2007 03/08/2012 Retention of urine, unspecified 01/01/2007 11/27/2018 Fibromyalgia 04/19/2011 documented as of this encounter (statuses as of 03/10/2022) [facility] History of Past illness Narrative* Problem Noted Date Resolved Date Right arm weakness 06/25/2021 09/17/2021 Decreased ROM of right shoulder 06/25/2021 09/17/2021 Tear of right rotator cuff 06/22/202106/22 Status post subacromial decompression 05/29/2020 09/17/2021 Plantar fasciitis 08/02/2019 09/17/2021 Sprain of wrist, left 02/18/2015 05/24/2018 Hypoglycemia 10/24/2011 03/08/2012 Contact dermatitis and other eczema, due to unspecified cause 10/18/2011 01/03/2017 Eczematous dermatitis: hands 11/23/201006/2013 Xerosis cutis 11/23/2010 02/18/2013 Depression 08/30/2010 11/27/2018 Mild dysplasia of cervix 10/27/2009 012 Impaired glucose tolerance test 01/31/2008 04/16/2008 Onychia and paronychia of toe 09/26/2007 Nonspecific abnormal results of liver function s tudy 08/24/2007 04/19/2011 Overview: AST 56, ALT 80 in 08-19: 85/79 on repeat ESR 29 in 08-19 HBsAg negative, HCV negative, NL iron studies in 08-19 Anemia, unspecified 01/10/2007 03/08/2012 Retention of urine, unspecified 01/01/2007 11/27/2018 Fibromyalgia 04/19/2011 documented as of this encounter (statuses as of 03/18/2022) [facility] History of Past illness Narrative* Problem Noted Date Resolved Date Right arm weakness 06/25/2021 09/17/2021 Decreased ROM of right shoulder 06/25/2021 09/17/2021 Tear of right rotator cuff 06/22/202106/22 Status post subacromial decompression 05/29/2020 09/17/2021 Plantar fasciitis 08/02/2019 09/17/2021 Sprain of wrist, left 02/18/2015 05/24/2018 Hypoglycemia 10/24/2011 03/08/2012 Contact dermatitis and other eczema, due to unspecified cause 10/18/2011 01/03/2017 Eczematous dermatitis: hands 11/23/201006/2013 Xerosis cutis 11/23/2010 02/18/2013 Depression 08/30/2010 11/27/2018 Mild dysplasia of cervix 10/27/2009 012 Impaired glucose tolerance test 01/31/2008 04/16/2008 Onychia and paronychia of toe 09/26/2007 Nonspecific abnormal results of liver function s urielizabeth 08/24/2007 04/19/2011 Overview: AST 56, ALT 80 in 08-19: 85/79 on repeat ESR 29 in 08-19 HBsAg negative, HCV negative, NL iron studies in 08-19 Anemia, unspecified 01/10/2007 03/08/2012 Retention of urine, unspecified 01/01/2007 11/27/2018 Fibromyalgia 04/19/2011 documented as of this encounter (statuses as of 03/24/2022) [facility] History of Past illness Narrative* Problem Noted Date Resolved Date Right arm weakness 06/25/2021 09/17/2021 Decreased ROM of right shoulder 06/25/2021 09/17/2021 Tear of right rotator cuff 06/22/202106/22 Status post subacromial decompression 05/29/2020 09/17/2021 Plantar fasciitis 08/02/2019 09/17/2021 Sprain of wrist, left 02/18/2015 05/24/2018 Hypoglycemia 10/24/2011 03/08/2012 Contact dermatitis and other eczema, due to unspecified cause 10/18/2011 01/03/2017 Eczematous dermatitis: hands 11/23/201006/2013 Xerosis cutis 11/23/2010 02/18/2013 Depression 08/30/2010 11/27/2018 Mild dysplasia of cervix 10/27/2009 012 Impaired glucose tolerance test 01/31/2008 04/16/2008 Onychia and paronychia of toe 09/26/2007 Nonspecific abnormal results of liver function s marsha 08/24/2007 04/19/2011 Overview: AST 56, ALT 80 in 08-19: 85/79 on repeat ESR 29 in 08-19 HBsAg negative, HCV negative, NL iron studies in 10- Anemia, unspecified 01/10/2007 03/08/2012 Retention of urine, unspecified 01/01/2007 11/27/2018 Fibromyalgia 04/19/2011 documented as of this encounter (statuses as of 03/24/2022) [facility] History of Past illness Narrative* Problem Noted Date Resolved Date Right arm weakness 06/25/2021 09/17/2021 Decreased ROM of right shoulder 06/25/2021 09/17/2021 Tear of right rotator cuff 06/22/202106/22 Status post subacromial decompression 05/29/2020 09/17/2021 Plantar fasciitis 08/02/2019 09/17/2021 Sprain of wrist, left 02/18/2015 05/24/2018 Hypoglycemia 10/24/2011 03/08/2012 Contact dermatitis and other eczema, due to unspecified cause 10/18/2011 01/03/2017 Eczematous dermatitis: hands 11/23/201006/2013 Xerosis cutis 11/23/2010 02/18/2013 Depression 08/30/2010 11/27/2018 Mild dysplasia of cervix 10/27/2009 012 Impaired glucose tolerance test 01/31/2008 04/16/2008 Onychia and paronychia of toe 09/26/2007 Nonspecific abnormal results of liver function s tudy 08/24/2007 04/19/2011 Overview: AST 56, ALT 80 in 08-19: 85/79 on repeat ESR 29 in 08-19 HBsAg negative, HCV negative, NL iron studies in 10 Anemia, unspecified 01/10/2007 03/08/2012 Retention of urine, unspecified 01/01/2007 11/27/2018 Fibromyalgia 04/19/2011 documented as of this encounter (statuses as of 03/28/2022) [facility] Preston [facility] January 19, 2024 11:20am Note Date/Time January 19, 2024 9:47 am [facility] Medical Records Department [address] [place] [address] Emergency Department Summary 01/19/24 MR#: [id number] Acct: [id number] Name: SID LEZAMA Rep #:[id number] : 1975 48 From: Kaleb Preston DO PCP: Dr. Grayson Phan MD Status:R EG ER Location: ED HPI HPI - GI History of Present Illness Chief Complaint: Flank Pain Narrative Narrative: 48-year-old female presenting with right flank pain. Onset was this morning about 530 she describes as sharp. She got nauseous and vomited. She states he has a history of kidney stones. Her pain is in the right lower flank and radiates to the right inguinal area. Patient also has history of ovarian cysts but this feels more like a kidney stone. Patient currently has minimal pain andnausea is resolved. No fevers at home. No dysuria or hematuria. No constipation or diarrhea. [facility] Medical History Crohn's disease Psoriatic arthritis Home Medications metformin 1,000 mg tablet 1,000 mg PO BIDCM 03/06/17 [History Last Taken Unknown] oxycodone-acetaminophen 5 mg-325 mg tablet (Percocet) 1 tab PO TID 06/28/18 [History Last Taken 05/06/20 04:30] norethindrone (contraceptive) 0.35 mg tablet 0.35 mg PO DAILY 09/20/18 [History Last Taken Unknown] insulin glargine 100 unit/mL subcutaneous solution (Lantus U-100 Insulin) 60 unit subcut QHS 03/19/19 [History Last Taken Unknown] Lactobacillus acidophilus 1 ea PO DAILY 07/14/19 [History Last Taken Unknown] biotin 10,000 mcg capsule 10,000 mcg PO DAILY 07/14/19 [History Last Taken Unknown] cetirizine 10 mg disintegrating tablet 1 tab PO DAILY 07/14/19 [History Last Taken Unknown] cholecalciferol (vitamin D3) 50 mcg (2,000 unit) capsule 1 tab PO DAILY 07/14/19[History Last Taken Unknown] fluticasone propionate 50 mcg/actuation nasal spray,suspension 2 spray inhalation DAILY PRN Congestion 07/14/19 [History Last Taken Unknown] mecobalamin (vitamin B12) 1,000 mcg disintegrating tablet,sublingual 1 tab PO DAILY 07/14/19 [History Last Taken Unknown] multivitamin 1 tab PO DAILY 07/14/19 [History Last Taken Unknown] pregabalin 150 mg capsule 1 tab PO TID 07/14/19 [History Last Taken 05/06/20 04:30] tizanidine 4 mg capsule 4 mg PO QHS 07/14/19 [History Last Taken Unknown] ascorbic acid (vitamin C) 1,000 mg tablet 1,000 mg PO QHS 04/29/20 [History Last Taken Unknown] famotidine 40 mg tablet 40 mg PO BID 04/29/20 [History Last Taken 05/06/20 04:30] magnesium oxide 500 mg capsule 500 mg PO BID 04/29/20 [History Last Taken Unknown] rizatriptan 10 mg tablet 10 mg PO PRN PRN Migraine Symptoms 04/29/20 [History Last Taken Unknown] semaglutide 0.25 mg or 0.5 mg (2 mg/1.5 mL) subcutaneous pen injector (Ozempic) 0.5 mg subcut QWEEK 10/06/20 [History Last Taken Unknown] Allergy/AdvReac Type Severity Reaction Status Date / Time hydromorphone [From Dilaudid] Allergy Swelling Verified 01/19/24 08:55 infliximab [From Remicade] Allergy Rash Verified 01/19/24 08:55 morphine Allergy Swelling Verified 01/19/24 08:55 tramadol [From Ultram] Allergy Swelling Verified 01/19/24 08:55 Social History Smoking Status: Former smoker ROS ROS ED Constitutional Constitutional ED: Denies chills, fever(s) or sweats Eyes Eyes: Denies blurry vision or change in vision ENT ENT ED: Denies ear pain or sore throat Cardiovascular Cardiovascular: Denies chest pain, palpitations or racing heartbeat Respiratory/Chest Respiratory/Chest: Denies cough, dyspnea or sputum Gastrointestinal Gastrointestinal: Reports abdominal pain, nausea and vomiting; Denies constipation or diarrhea Genitourinary Genitourinary ED: Denies dysuria, hematuria or urinary frequency Musculoskeletal Musculoskeletal: Reports back pain; Denies arthralgias, myalgias or neck pain Integumentary Denies abscess, Abrasions or rash Neurologic Neurologic: Denies headache(s), paresthesias or weakness Psychiatric Psychiatric: Denies anxiety, depression, suicidal ideation or suicidal thoughts Endocrine Endocrinology: Denies polydipsia or polyuria EXAM Physical Exam Const Vital Signs: 01/19/24 08:56 Temperature 97.4 F L Temperature Source Temporal Pulse Rate 89 Respiratory Rate 16 Blood Pressure 134/83 H Blood Pressure Mean 100 Pulse Ox 99 Oxygen Delivery Method Room Air Positive well nourished General Appearance ED: NAD HEENT Reports moist mucous membranes normocephalic and atraumatic Eyes PERRL and EOMs intact bilaterally Resp normal respiratory effort Cardio regular rate and regular rhythm GI Palpation: tender RLQ Back/Spine General Back: CVA tenderness right Neuro CN's II-XII intact bilaterally Sensorium / Orientation: alert Psych mental status grossly normal MDM MDM MDM Narrative Medical decision making narrative: Patient presenting with right flank pain. Patient presenting with right flank pain. Differential includes colitis, diverticulitis, gastritis, constipation, UTI, pyelonephritis, calculi, ureteral calculi, obstruction, malignancy, dehydration, electrolyte abnormalities, ovarian torsion, ovarian cyst, ectopic , Crohn's flare. Patient minimal pain I feel most likely she has colicky pain secondary to kidney stone. Patient was amenable to some Toradol. CBC was obtained and white blood cell count 7.8. Hemoglobin 15.4. Platelets 243. Renal function electrolytes unremarkable. hCG negative. Will obtain CT of the abdomen pelvis without contrast and urinalysis. Urinalysis shows some occult blood but no evidence of infection. CT of the ab pelvis without contrastshows no evidence of kidney stones or obstruction. Abdominal CT is unchanged and stable. At this point I feel the patient can be discharged home. RecommendTylenol and ibuprofen. Will prescribe Zofran for nausea. Impression: 1. Right flank pain 2. Nausea/vomiting Lab Data Attestation: I reviewed the patient's lab results. Labs: Laboratory Results - last 24 hr 01/19/24 01/19/24 09:16 09:45 WBC 7.8 RBC 5.51 H Hgb 15.4 H Hct 47.5 H MCV 86.2 MCH 27.9 MCHC 32.4 RDW Std Deviation 39.2 RDW Coeff of [place] 12.6 Plt Count 243 MPV 10.3 Immature Gran % (Auto) 0.300 Neut % (Auto) 74.8 H Lymph % (Auto) 18.2 L [place] % (Auto) 4.4 Eos % (Auto) 1.4 Baso % (Auto) 0.9 Absolute Neuts (auto) 5.8 Absolute Lymphs (auto) 1.41 Nucleated RBC % 0 Sodium 141 Potassium 3.6 Chloride 110 H Carbon Dioxide 24.0 Anion Gap 7 BUN 12 Creatinine 0.80 Estim Creat Clear Calc 77.18 Est GFR (MDRD) Af Amer 98 Est GFR (MDRD) Non-Af 81 BUN/Creatinine Ratio 15.0 Glucose 199 H Calcium 10.1 Serum , Qual NEGATIVE Urine Color Yellow Urine Clarity Sl. Cloudy Urine pH 5.0 Ur Specific [place] 1.025 Urine Protein 30 H Urine Glucose (UA) 100 H Urine Ketones 15 H Urine Occult Blood 25 H Urine Nitrite Negative Urine Bilirubin Negative Urine Urobilinogen Normal Ur Leukocyte Esterase 25 H Urine RBC 0-5 SEEN Urine WBC 0-5 SEEN Ur Squamous Epith Cells 5-10 SEEN Urine Bacteria 1+ Urine Mucus 2+ Radiography Diagnostic Testing: Clinical Impression(s) from Imaging Studies Abdomen/Pelvis CT 01/19/24 09:43 IMPRESSION: Small nonobstructing left renal calculus. No evidence for right nephrolithiasis or hydronephrosis. Hepatic steatosis with hepatomegaly. Unchanged appearance of right lower quadrant ostomy. Electronically Signed: Shawna Peters MD at 10:21 EST , Discharge Plan Triage Chief Complaint: Flank Pain ED Provider: Kaleb Preston Dx/Rx/DC Orders Prescriptions: No Action oxycodone-acetaminophen [Percocet] 5-325 mg tablet 1 tab PO TID norethindrone (contraceptive) 0.35 mg tablet 0.35 mg PO DAILY Lantus U-100 Insulin 100 unit/mL solution 60 unit SC QHS Ozempic 0.25 mg or 0.5 mg(2 mg/1.5 mL) pen injector 0.5 mg SC QWEEK metformin 1,000 MG tablet 1,000 mg PO BIDCM multivitamin 1 EACH tablet 1 tab PO DAILY biotin 10,000 MCG capsule 10,000 mcg PO DAILY Lactobacillus acidophilus 1 EACH capsule 1 ea PO DAILY fluticasone propionate 16 GM spray,suspension 2 spray inhalation DAILY PRN (Reason: Congestion) Patient Comments: SPRAY 2 SPRAYS INTO EACH NOSTRIL EVERY DAY tizanidine 4 MG capsule 4 mg PO QHS pregabalin 150 MG capsule 1 tab PO TID cholecalciferol (vitamin D3) 2,000 UNIT capsule 1 tab PO DAILY cetirizine 10 MG tablet,disintegrating 1 tab PO DAILY mecobalamin (vitamin B12) 1,000 MCG tablet,disintegrating 1 tab PO DAILY famotidine 40 MG tablet 40 mg PO BID rizatriptan 10 MG tablet 10 mg PO PRN PRN (Reason: Migraine Symptoms) magnesium oxide 500 MG capsule 500 mg PO BID ascorbic acid (vitamin C) 1,000 MG tablet 1,000 mg PO QHS Primary Care Provider: Grayson Phan Referrals: Grayson Phan MD [Primary Care Provider] - What to do if you have Problems For any increased pain, shortness of breath, bleeding, nausea or vomiting, chestpain, or any unexpected problems, contact your Primary Care Provider. Call [facility] ([phone]) or report to the closest Emergency Room. Call 911 if necessary. 01/19/24 1120 <Electronically signed by Kaleb Preston DO> Cosigner Signature (if applicable): CC: Dr. Grayson Phan MD ~ Signed [facility] Work Phone: Evaluation note* Diagnosis Lateral epicondylitis of left elbow- Primary Lateral epicondylitis of elbow documented in this encounter [facility] noteNo assessment information availableWSt. [facility] Work Phone: [facility]* Diagnosis Ingrowing toenail of right foot- Primary Ingrowing nail Ingrown toenail of left foot Onychodystrophy Other specified disease of nail 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, with long-term current use of insulin (HCC) Plantar fasciitis Plantar fascial fibromatosis Diminished pulses in lower extremity Other symptoms involving cardiovascular system documented in this encounter [facility] note* Diagnosis Lateral epicondylitis of left elbow- Primary Lateral epicondylitis of elbow documented in this encounter [facility] note* Diagnosis Lateral epicondylitis of left elbow- Primary Lateral epicondylitis of elbow documented in this encounter [facility] note* Diagnosis Chronic right shoulder pain- Primary Pain in joint, shoulder region S/P shoulder surgery Other [facility]procedural status [facility] Diagnosis Inflammatory bowel disease Other and unspecified noninfectious gastroenteritis and colitis Seronegative spondyloarthropathy- Primary Spondylosis of unspecified site without mention of myelopathy Osteoarthritis of spine, unspecified spinal osteoarthritis complication status, unspecified spinal region [facility]* Diagnosis Attention to ileostomy (HCC)- Primary Attention to ileostomy Seronegative spondyloarthropathy- Primary Spondylosis of unspecified site without mention of myelopathy Osteoarthritis of spine, unspecified spinal osteoarthritis complication status, unspecified spinal region [facility] Diagnosis Seronegative spondyloarthropathy- Primary Spondylosis of unspecified site without mention of myelopathy Osteoarthritis of spine, unspecified spinal osteoarthritis complication status, unspecified spinal region [facility] Diagnosis Lateral epicondylitis of left elbow- Primary Lateral epicondylitis of elbow [facility] Diagnosis Chronic right shoulder pain- Primary Pain in joint, shoulder region S/P shoulder surgery Other postprocedural status [facility] Diagnosis Inflammatory bowel disease Other and unspecified noninfectious gastroenteritis and colitis [facility] Diagnosis Inflammatory bowel disease Other and unspecified noninfectious gastroenteritis and colitis [facility] Diagnosis Attention to ileostomy (HCC)- Primary Attention to ileostomy [facility]* Diagnosis Type 2 diabetes mellitus treated with insulin ([facility]) Type II or unspecified type diabetes mellitus without mention of complication, not stated as uncontrolled [facility] Diagnosis Right shoulder pain, unspecified chronicity- Primary S/P shoulder surgery Other postprocedural status [facility]* Diagnosis Fibromyalgia Mylagia and myositis, unspecified [facility] Diagnosis Right shoulder pain, unspecified chronicity- Primary S/P shoulder surgery Other postprocedural status [facility] Diagnosis S/P shoulder surgery- Primary Other postprocedural status [facility] Diagnosis Right shoulder pain, unspecified chronicity- Primary S/P shoulder surgery Other postprocedural status [facility]* Diagnosis Type 2 diabetes mellitus with hyperglycemia, with long-term current use of insulin (HCC)- Primary Bone loss Other disorders of bone and cartilage Hypercalcemia [facility] Diagnosis Hypercalcemia- Primary [facility] Diagnosis Right shoulder pain, unspecified chronicity- Primary S/P shoulder surgery Other postprocedural status [facility] Diagnosis Gastroesophageal reflux disease without esophagitis Esophageal reflux [facility]* Diagnosis Lateral epicondylitis of right elbow- Primary Lateral epicondylitis of elbow [facility] Diagnosis Seronegative spondyloarthropathy- Primary Spondylosis of unspecified site without mention of myelopathy Crohn's disease with complication, unspecified gastrointestinal tract location (HCC) Multiple joint pain Pain in joint, multiple sites Fibromyalgia Mylagia and myositis, unspecified [facility] Diagnosis Non-alcoholic fatty liver disease- Primary Other chronic nonalcoholic liver disease Mixed hyperlipidemia Type 2 diabetes mellitus treated with insulin (HCC) Type II or unspecified type diabetes mellitus without mention of complication, not stated as uncontrolled Inflammatory bowel disease Other and unspecified noninfectious gastroenteritis and colitis [facility] Diagnosis Hypercalciuria- Primary Unspecified disorders of calcium metabolism Hypercalcemia [facility]* Diagnosis LLQ pain- Primary Abdominal pain, left lower quadrant Pelvic pain in female Unspecified symptom associated with female genital organs control counseling General counseling for initiation of other contraceptive measures Contraception, device intrauterine Presence of intrauterine contraceptive device Encounter for IUD insertion Encounter for insertion of intrauterine contraceptive device Encounter for screening mammogram for breast cancer [facility] Diagnosis Hypercalciuria- Primary Unspecified disorders of calcium metabolism [facility] Diagnosis Pelvic pain in female- Primary Unspecified symptom associated with female genital organs [facility] Diagnosis Pelvic pain in female Unspecified symptom associated with female genital organs [facility] Diagnosis control counseling- Primary General counseling for initiation of other contraceptive measures Contraception, device intrauterine Presence of intrauterine contraceptive device Encounter for IUD insertion Encounter for insertion of intrauterine contraceptive device Secondary amenorrhea Absence of menstruation [facility] Encounter for IUD insertion- Primary Encounter for insertion of intrauterine contraceptive device [facility] Diagnosis Encounter for IUD insertion- Primary Encounter for insertion of intrauterine contraceptive device [facility] Diagnosis Encounter for IUD insertion Encounter for insertion of intrauterine contraceptive device [facility] Diagnosis Seronegative spondyloarthropathy- Primary Spondylosis of unspecified site without mention of myelopathy Crohn's disease with complication, unspecified gastrointestinal tract location (HCC) Osteoarthritis of spine, unspecified spinal osteoarthritis complication status, unspecified spinal region [facility] Diagnosis Type 2 diabetes mellitus with hyperglycemia, without long-term current use of insulin (HCC)- Primary Hypercalcemia Type 2 diabetes mellitus treated with insulin (HCC) Type II or unspecified type diabetes mellitus without mention of complication, not stated as uncontrolled [facility] Diagnosis Seronegative spondyloarthropathy- Primary Spondylosis of unspecified site without mention of myelopathy [facility] Diagnosis Inflammatory bowel disease- Primary Other and unspecified noninfectious gastroenteritis and colitis [facility] Diagnosis Cyst of ovary, unspecified laterality- Primary Pelvic pain in female Unspecified symptom associated with female genital organs IUD (intrauterine device) in place Presence of intrauterine contraceptive device Candidal intertrigo Candidiasis of skin and nails [facility] Diagnosis NAFLD (nonalcoholic fatty liver disease)- Primary Other chronic nonalcoholic liver disease [facility]* Diagnosis Non-alcoholic fatty liver disease Other chronic nonalcoholic liver disease [facility] Diagnosis Hyperparathyroidism (HCC)- Primary Hyperparathyroidism, unspecified [facility] Diagnosis Seronegative spondyloarthropathy- Primary Spondylosis of unspecified site without mention of myelopathy [facility]* Diagnosis Hypercalcemia- Primary [facility] Diagnosis Primary hyperparathyroidism (HCC) Primary hyperparathyroidism [facility] Diagnosis History of ovarian cyst- Primary Personal history of other genital system and obstetric disorders IUD (intrauterine device) in place Presence of intrauterine contraceptive device [facility] Diagnosis Right tennis elbow- Primary Lateral epicondylitis of elbow [facility]* Diagnosis Fibromyalgia Mylagia and myositis, unspecified [facility]* Diagnosis Type 2 diabetes mellitus with hyperglycemia, unspecified whether care home insulin use (HCC) [E11.65 (ICD-10-CM)]- Primary [facility] Diagnosis Chronic right shoulder pain- Primary Pain in joint, shoulder region Right tennis elbow Lateral epicondylitis of elbow Pain in right elbow Pain in joint, upper arm [facility] Diagnosis Pain in right elbow- Primary Pain in joint, upper arm [facility] Diagnosis Pain in right elbow- Primary Pain in joint, upper arm [facility] Diagnosis Pain in right elbow- Primary Pain in joint, upper arm [facility] Diagnosis Pain in right elbow- Primary Pain in joint, upper arm Right shoulder pain, unspecified chronicity [facility] Diagnosis Pain in right elbow- Primary Pain in joint, upper arm Right shoulder pain, unspecified chronicity [facility]* Diagnosis 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, with long-term current use of insulin (HCC)- Primary [facility] Diagnosis Pain in right elbow- Primary Pain in joint, upper arm Right shoulder pain, unspecified chronicity [facility]* Diagnosis Type 2 diabetes mellitus with hyperglycemia, with long-term current use of insulin (HCC) [facility] Diagnosis Pain in right elbow- Primary Pain in joint, upper arm Inflammatory bowel disease Other and unspecified noninfectious gastroenteritis and colitis [facility] Diagnosis Pain in right elbow- Primary Pain in joint, upper arm Right shoulder pain, unspecified chronicity [facility] Diagnosis Type 2 diabetes mellitus with hyperglycemia, with long-term current use of insulin (HCC) [facility] Diagnosis Encounter for gynecological examination (general) (routine) without abnormal findings- Primary Encounter for screening mammogram for breast cancer History of UTI Personal history of urinary (tract) infection [facility] Diagnosis Seronegative spondyloarthropathy- Primary Spondylosis of unspecified site without mention of myelopathy [facility]* Diagnosis Type 2 diabetes mellitus treated with insulin (HCC)- Primary Type II or unspecified type diabetes mellitus without mention of complication, not stated as uncontrolled Primary hyperparathyroidism (HCC) Primary hyperparathyroidism Bone loss Other disorders of bone and cartilage [facility]* Diagnosis Fibromyalgia- Primary Mylagia and myositis, unspecified Type 2 diabetes mellitus treated with insulin (HCC) Type II or unspecified type diabetes mellitus without mention of complication, not stated as uncontrolled Mixed hyperlipidemia Non-alcoholic fatty liver disease Other chronic nonalcoholic liver disease [facility] Diagnosis Fibromyalgia Mylagia and myositis, unspecified [facility]* Diagnosis Primary hyperparathyroidism (HCC) Primary hyperparathyroidism [facility]* Diagnosis Seronegative spondyloarthropathy- Primary Spondylosis of unspecified site without mention of myelopathy [facility] Diagnosis Left wrist pain- Primary Pain in joint, forearm Abnormal finding on diagnostic imaging of extremity [facility] Diagnosis Left hand pain- Primary Pain in limb [facility] Diagnosis Fibromyalgia- Primary Mylagia and myositis, unspecified [facility] Diagnosis Seronegative spondyloarthropathy- Primary Spondylosis of unspecified site without mention of myelopathy Crohn's disease with complication, unspecified gastrointestinal tract location (HCC) Osteoarthritis of spine, unspecified spinal osteoarthritis complication status, unspecified spinal region Fibromyalgia Mylagia and myositis, unspecified Multiple joint pain Pain in joint, multiple sites Long-term use of immunosuppressant medication Encounter for long-term (current) use of other medications Psoriatic arthritis (HCC) Psoriatic arthropathy [facility] Diagnosis Type 2 diabetes mellitus with hyperglycemia, with long-term current use of insulin (HCC) Type 2 diabetes mellitus treated with insulin (HCC) Type II or unspecified type diabetes mellitus without mention of complication, not stated as uncontrolled [facility] Diagnosis Fibromyalgia Mylagia and myositis, unspecified [facility] Diagnosis Fibromyalgia- Primary Mylagia and myositis, unspecified Type 2 diabetes mellitus treated with insulin (HCC) Type II or unspecified type diabetes mellitus without mention of complication, not stated as uncontrolled Mixed hyperlipidemia Ileostomy status (HCC) Ileostomy status Gastroesophageal reflux disease without esophagitis Esophageal reflux [facility] note* Diagnosis Type 2 diabetes mellitus with hyperglycemia, without long-term current use of insulin (HCC) [facility] Diagnosis Seronegative spondyloarthropathy- Primary Spondylosis of unspecified site without mention of myelopathy [facility] Diagnosis Type 2 diabetes mellitus with hyperglycemia, with long-term current use of insulin (HCC) [facility] Type 2 diabetes mellitus with hyperglycemia, with long-term current use of insulin (HCC) [facility] Diagnosis Nephrolithiasis- Primary Calculus of kidney Screening for genitourinary condition Screening for other and unspecified genitourinary condition [facility] Diagnosis Type 2 diabetes mellitus with hyperglycemia, with long-term current use of insulin (HCC)- Primary Diabetes mellitus type 2 with ketoacidosis, uncontrolled (HCC) Type II or unspecified type diabetes mellitus with ketoacidosis, uncontrolled [facility] Diagnosis Type 2 diabetes mellitus with hyperglycemia, with long-term current use of insulin (HCC) Type 2 diabetes mellitus treated with insulin (HCC) Type II or unspecified type diabetes mellitus without mention of complication, not stated as uncontrolled [facility] Diagnosis Type 2 diabetes mellitus with hyperglycemia, with long-term current use of insulin (HCC) [facility] Diagnosis Nephrolithiasis Calculus of kidney [facility] Diagnosis Seronegative spondyloarthropathy- Primary Spondylosis of unspecified site without mention of myelopathy Encounter for long-term (current) use of medications Encounter for long-term (current) use of other medications Crohn's disease with complication, unspecified gastrointestinal tract location (HCC) [facility] Diagnosis Encounter for gynecological examination (general) (routine) without abnormal findings- Primary Encounter for screening mammogram for breast cancer [facility] Diagnosis Preop examination- Primary Preoperative examination, unspecified Rotator cuff syndrome of right shoulder Disorders of bursae and tendons in shoulder region, unspecified Obesity, Class II, BMI 35-39.9 Obesity, unspecified Gastroesophageal reflux disease without esophagitis Esophageal reflux Type 2 diabetes mellitus treated with insulin (HCC) Type II or unspecified type diabetes mellitus without mention of complication, not stated as uncontrolled Migraine without aura and without status migrainosus, not intractable Migraine without aura, without mention of intractable migraine without mention of status migrainosus Ileostomy status (HCC) Ileostomy status Fibromyalgia Mylagia and myositis, unspecified Obesity, Class I, BMI 30-34.9 Obesity, unspecified Type 2 diabetes mellitus with hyperglycemia, with long-term current use of insulin (HCC) [facility] Diagnosis Preop examination- Primary Preoperative examination, unspecified Rotator cuff syndrome of right shoulder Disorders of bursae and tendons in shoulder region, unspecified Obesity, Class II, BMI 35-39.9 Obesity, unspecified Gastroesophageal reflux disease without esophagitis Esophageal reflux Type 2 diabetes mellitus treated with insulin (HCC) Type II or unspecified type diabetes mellitus without mention of complication, not stated as uncontrolled Migraine without aura and without status migrainosus, not intractable Migraine without aura, without mention of intractable migraine without mention of status migrainosus Ileostomy status (HCC) Ileostomy status Fibromyalgia Mylagia and myositis, unspecified Obesity, Class I, BMI 30-34.9 Obesity, unspecified Nephrolithiasis- Primary Calculus of kidney Urine volume deficient Oliguria and anuria Hypocitraturia Other nonspecific finding on examination of urine Aciduria (HCC) Other nonspecific finding on examination of urine Hypercalcinuria Unspecified disorders of calcium metabolism [facility] Diagnosis Preop examination- Primary Preoperative examination, unspecified Rotator cuff syndrome of right shoulder Disorders of bursae and tendons in shoulder region, unspecified Obesity, Class II, BMI 35-39.9 Obesity, unspecified Gastroesophageal reflux disease without esophagitis Esophageal reflux Type 2 diabetes mellitus treated with insulin (HCC) Type II or unspecified type diabetes mellitus without mention of complication, not stated as uncontrolled Migraine without aura and without status migrainosus, not intractable Migraine without aura, without mention of intractable migraine without mention of status migrainosus Ileostomy status (HCC) Ileostomy status Fibromyalgia Mylagia and myositis, unspecified Obesity, Class I, BMI 30-34.9 Obesity, unspecified Left wrist pain Pain in joint, forearm [facility] Diagnosis Preop examination- Primary Preoperative examination, unspecified Rotator cuff syndrome of right shoulder Disorders of bursae and tendons in shoulder region, unspecified Obesity, Class II, BMI 35-39.9 Obesity, unspecified Gastroesophageal reflux disease without esophagitis Esophageal reflux Type 2 diabetes mellitus treated with insulin ([facility]) Type II or unspecified type diabetes mellitus without mention of complication, not stated as uncontrolled Migraine without aura and without status migrainosus, not intractable Migraine without aura, without mention of intractable migraine without mention of status migrainosus Ileostomy status ([facility]) Ileostomy status Fibromyalgia Mylagia and myositis, unspecified Obesity, Class I, BMI 30-34.9 Obesity, unspecified Acute cough [facility]* Diagnosis Preop examination- Primary Preoperative examination, unspecified Rotator cuff syndrome of right shoulder Disorders of bursae and tendons in shoulder region, unspecified Obesity, Class II, BMI 35-39.9 Obesity, unspecified Gastroesophageal reflux disease without esophagitis Esophageal reflux Type 2 diabetes mellitus treated with insulin (HCC) Type II or unspecified type diabetes mellitus without mention of complication, not stated as uncontrolled Migraine without aura and without status migrainosus, not intractable Migraine without aura, without mention of intractable migraine without mention of status migrainosus Ileostomy status (HCC) Ileostomy status Fibromyalgia Mylagia and myositis, unspecified Obesity, Class I, BMI 30-34.9 Obesity, unspecified Gastroesophageal reflux disease without esophagitis Esophageal reflux [facility]* Diagnosis Preop examination- Primary Preoperative examination, unspecified Rotator cuff syndrome of right shoulder Disorders of bursae and tendons in shoulder region, unspecified Obesity, Class II, BMI 35-39.9 Obesity, unspecified Gastroesophageal reflux disease without esophagitis Esophageal reflux Type 2 diabetes mellitus treated with insulin (HCC) Type II or unspecified type diabetes mellitus without mention of complication, not stated as uncontrolled Migraine without aura and without status migrainosus, not intractable Migraine without aura, without mention of intractable migraine without mention of status migrainosus Ileostomy status (HCC) Ileostomy status Fibromyalgia Mylagia and myositis, unspecified Obesity, Class I, BMI 30-34.9 Obesity, unspecified Lateral epicondylitis of right elbow Lateral epicondylitis of elbow documented in this encounter [facility] note* Diagnosis Preop examination- Primary Preoperative examination, unspecified Rotator cuff syndrome of right shoulder Disorders of bursae and tendons in shoulder region, unspecified Obesity, Class II, BMI 35-39.9 Obesity, unspecified Gastroesophageal reflux disease without esophagitis Esophageal reflux Type 2 diabetes mellitus treated with insulin (HCC) Type II or unspecified type diabetes mellitus without mention of complication, not stated as uncontrolled Migraine without aura and without status migrainosus, not intractable Migraine without aura, without mention of intractable migraine without mention of status migrainosus Ileostomy status (HCC) Ileostomy status Fibromyalgia Mylagia and myositis, unspecified Obesity, Class I, BMI 30-34.9 Obesity, unspecified Gastroesophageal reflux disease without esophagitis- Primary Esophageal reflux Screening for depression Encounter for screening examination for other mental health and behavioral disorders Type 2 diabetes mellitus treated with insulin (HCC) Type II or unspecified type diabetes mellitus without mention of complication, not stated as uncontrolled Crohn's disease of large intestine without complication (HCC) Regional enteritis of large intestine Ileostomy status (HCC) Ileostomy status [facility]* Diagnosis Preop examination- Primary Preoperative examination, unspecified Rotator cuff syndrome of right shoulder Disorders of bursae and tendons in shoulder region, unspecified Obesity, Class II, BMI 35-39.9 Obesity, unspecified Gastroesophageal reflux disease without esophagitis Esophageal reflux Type 2 diabetes mellitus treated with insulin (HCC) Type II or unspecified type diabetes mellitus without mention of complication, not stated as uncontrolled Migraine without aura and without status migrainosus, not intractable Migraine without aura, without mention of intractable migraine without mention of status migrainosus Ileostomy status (HCC) Ileostomy status Fibromyalgia Mylagia and myositis, unspecified Obesity, Class I, BMI 30-34.9 Obesity, unspecified Encounter for long-term (current) use of medications Encounter for long-term (current) use of other medications [facility]* Diagnosis Type 2 diabetes mellitus with hyperglycemia, with long-term current use of insulin (HCC)- Primary documented in this encounter [facility] note* Diagnosis Preop examination- Primary Preoperative examination, unspecified Rotator cuff syndrome of right shoulder Disorders of bursae and tendons in shoulder region, unspecified Obesity, Class II, BMI 35-39.9 Obesity, unspecified Gastroesophageal reflux disease without esophagitis Esophageal reflux Type 2 diabetes mellitus treated with insulin (HCC) Type II or unspecified type diabetes mellitus without mention of complication, not stated as uncontrolled Migraine without aura and without status migrainosus, not intractable Migraine without aura, without mention of intractable migraine without mention of status migrainosus Ileostomy status (HCC) Ileostomy status Fibromyalgia Mylagia and myositis, unspecified Obesity, Class I, BMI 30-34.9 Obesity, unspecified Seronegative spondyloarthropathy- Primary Spondylosis of unspecified site without mention of myelopathy [facility] Diagnosis Preop examination- Primary Preoperative examination, unspecified Rotator cuff syndrome of right shoulder Disorders of bursae and tendons in shoulder region, unspecified Obesity, Class II, BMI 35-39.9 Obesity, unspecified Gastroesophageal reflux disease without esophagitis Esophageal reflux Type 2 diabetes mellitus treated with insulin (HCC) Type II or unspecified type diabetes mellitus without mention of complication, not stated as uncontrolled Migraine without aura and without status migrainosus, not intractable Migraine without aura, without mention of intractable migraine without mention of status migrainosus Ileostomy status (HCC) Ileostomy status Fibromyalgia Mylagia and myositis, unspecified Obesity, Class I, BMI 30-34.9 Obesity, unspecified Type 2 diabetes mellitus with hyperglycemia, with long-term current use of insulin (HCC) documented in this encounter [facility] note* Diagnosis Preop examination- Primary Preoperative examination, unspecified Rotator cuff syndrome of right shoulder Disorders of bursae and tendons in shoulder region, unspecified Obesity, Class II, BMI 35-39.9 Obesity, unspecified Gastroesophageal reflux disease without esophagitis Esophageal reflux Type 2 diabetes mellitus treated with insulin (HCC) Type II or unspecified type diabetes mellitus without mention of complication, not stated as uncontrolled Migraine without aura and without status migrainosus, not intractable Migraine without aura, without mention of intractable migraine without mention of status migrainosus Ileostomy status (HCC) Ileostomy status Fibromyalgia Mylagia and myositis, unspecified Obesity, Class I, BMI 30-34.9 Obesity, unspecified Gastroesophageal reflux disease without esophagitis Esophageal reflux documented in this encounter [facility] note* Diagnosis Preop examination- Primary Preoperative examination, unspecified Rotator cuff syndrome of right shoulder Disorders of bursae and tendons in shoulder region, unspecified Obesity, Class II, BMI 35-39.9 Obesity, unspecified Gastroesophageal reflux disease without esophagitis Esophageal reflux Type 2 diabetes mellitus treated with insulin ([facility]) Type II or unspecified type diabetes mellitus without mention of complication, not stated as uncontrolled Migraine without aura and without status migrainosus, not intractable Migraine without aura, without mention of intractable migraine without mention of status migrainosus Ileostomy status (HCC) Ileostomy status Fibromyalgia Mylagia and myositis, unspecified Obesity, Class I, BMI 30-34.9 Obesity, unspecified Seronegative spondyloarthropathy- Primary Spondylosis of unspecified site without mention of myelopathy Encounter for long-term (current) use of medications Encounter for long-term (current) use of other medications Crohn's disease with complication, unspecified gastrointestinal tract location (HCC) Osteoarthritis of spine, unspecified spinal osteoarthritis complication status, unspecified spinal region documented in this encounter [facility] note* Diagnosis Preop examination- Primary Preoperative examination, unspecified Rotator cuff syndrome of right shoulder Disorders of bursae and tendons in shoulder region, unspecified Obesity, Class II, BMI 35-39.9 Obesity, unspecified Gastroesophageal reflux disease without esophagitis Esophageal reflux Type 2 diabetes mellitus treated with insulin ([facility]) Type II or unspecified type diabetes mellitus without mention of complication, not stated as uncontrolled Migraine without aura and without status migrainosus, not intractable Migraine without aura, without mention of intractable migraine without mention of status migrainosus Ileostomy status (HCC) Ileostomy status Fibromyalgia Mylagia and myositis, unspecified Obesity, Class I, BMI 30-34.9 Obesity, unspecified Type 2 diabetes mellitus with hyperglycemia, with long-term current use of insulin ([facility])- Primary documented in this encounter [facility] note* Diagnosis Preop examination- Primary Preoperative examination, unspecified Rotator cuff syndrome of right shoulder Disorders of bursae and tendons in shoulder region, unspecified Obesity, Class II, BMI 35-39.9 Obesity, unspecified Gastroesophageal reflux disease without esophagitis Esophageal reflux Type 2 diabetes mellitus treated with insulin (HCC) Type II or unspecified type diabetes mellitus without mention of complication, not stated as uncontrolled Migraine without aura and without status migrainosus, not intractable Migraine without aura, without mention of intractable migraine without mention of status migrainosus Ileostomy status (HCC) Ileostomy status Fibromyalgia Mylagia and myositis, unspecified Obesity, Class I, BMI 30-34.9 Obesity, unspecified Seronegative spondyloarthropathy- Primary Spondylosis of unspecified site without mention of myelopathy documented in this encounter [facility] note* Diagnosis Preop examination- Primary Preoperative examination, unspecified Rotator cuff syndrome of right shoulder Disorders of bursae and tendons in shoulder region, unspecified Obesity, Class II, BMI 35-39.9 Obesity, unspecified Gastroesophageal reflux disease without esophagitis Esophageal reflux Type 2 diabetes mellitus treated with insulin (HCC) Type II or unspecified type diabetes mellitus without mention of complication, not stated as uncontrolled Migraine without aura and without status migrainosus, not intractable Migraine without aura, without mention of intractable migraine without mention of status migrainosus Ileostomy status (HCC) Ileostomy status Fibromyalgia Mylagia and myositis, unspecified Obesity, Class I, BMI 30-34.9 Obesity, unspecified Nephrolithiasis- Primary Calculus of kidney Screening for genitourinary condition Screening for other and unspecified genitourinary condition documented in this encounter [facility] note* Diagnosis Preop examination- Primary Preoperative examination, unspecified Rotator cuff syndrome of right shoulder Disorders of bursae and tendons in shoulder region, unspecified Obesity, Class II, BMI 35-39.9 Obesity, unspecified Gastroesophageal reflux disease without esophagitis Esophageal reflux Type 2 diabetes mellitus treated with insulin (HCC) Type II or unspecified type diabetes mellitus without mention of complication, not stated as uncontrolled Migraine without aura and without status migrainosus, not intractable Migraine without aura, without mention of intractable migraine without mention of status migrainosus Ileostomy status (HCC) Ileostomy status Fibromyalgia Mylagia and myositis, unspecified Obesity, Class I, BMI 30-34.9 Obesity, unspecified Nephrolithiasis- Primary Calculus of kidney documented in this encounter [facility] note* Diagnosis Preop examination- Primary Preoperative examination, unspecified Rotator cuff syndrome of right shoulder Disorders of bursae and tendons in shoulder region, unspecified Obesity, Class II, BMI 35-39.9 Obesity, unspecified Gastroesophageal reflux disease without esophagitis Esophageal reflux Type 2 diabetes mellitus treated with insulin (HCC) Type II or unspecified type diabetes mellitus without mention of complication, not stated as uncontrolled Migraine without aura and without status migrainosus, not intractable Migraine without aura, without mention of intractable migraine without mention of status migrainosus Ileostomy status (HCC) Ileostomy status Fibromyalgia Mylagia and myositis, unspecified Obesity, Class I, BMI 30-34.9 Obesity, unspecified Herpes labialis (oral herpes simplex) documented in this encounter [facility] note* Diagnosis Preop examination- Primary Preoperative examination, unspecified Rotator cuff syndrome of right shoulder Disorders of bursae and tendons in shoulder region, unspecified Obesity, Class II, BMI 35-39.9 Obesity, unspecified Gastroesophageal reflux disease without esophagitis Esophageal reflux Type 2 diabetes mellitus treated with insulin (HCC) Type II or unspecified type diabetes mellitus without mention of complication, not stated as uncontrolled Migraine without aura and without status migrainosus, not intractable Migraine without aura, without mention of intractable migraine without mention of status migrainosus Ileostomy status (HCC) Ileostomy status Fibromyalgia Mylagia and myositis, unspecified Obesity, Class I, BMI 30-34.9 Obesity, unspecified Seronegative spondyloarthropathy- Primary Spondylosis of unspecified site without mention of myelopathy documented in this encounter [facility] note* Diagnosis Preop examination- Primary Preoperative examination, unspecified Rotator cuff syndrome of right shoulder Disorders of bursae and tendons in shoulder region, unspecified Obesity, Class II, BMI 35-39.9 Obesity, unspecified Gastroesophageal reflux disease without esophagitis Esophageal reflux Type 2 diabetes mellitus treated with insulin (HCC) Type II or unspecified type diabetes mellitus without mention of complication, not stated as uncontrolled Migraine without aura and without status migrainosus, not intractable Migraine without aura, without mention of intractable migraine without mention of status migrainosus Ileostomy status (HCC) Ileostomy status Fibromyalgia Mylagia and myositis, unspecified Obesity, Class I, BMI 30-34.9 Obesity, unspecified Diabetes mellitus type 1, controlled, without complications ([facility])- Primary Type I (juvenile type) diabetes mellitus without mention of complication, not stated as uncontrolled Type 2 diabetes mellitus with hyperglycemia, with long-term current use of insulin ([facility]) documented in this encounter [facility] note* Diagnosis Preop examination- Primary Preoperative examination, unspecified Rotator cuff syndrome of right shoulder Disorders of bursae and tendons in shoulder region, unspecified Obesity, Class II, BMI 35-39.9 Obesity, unspecified Gastroesophageal reflux disease without esophagitis Esophageal reflux Type 2 diabetes mellitus treated with insulin ([facility]) Type II or unspecified type diabetes mellitus without mention of complication, not stated as uncontrolled Migraine without aura and without status migrainosus, not intractable Migraine without aura, without mention of intractable migraine without mention of status migrainosus Ileostomy status ([facility]) Ileostomy status Fibromyalgia Mylagia and myositis, unspecified Obesity, Class I, BMI 30-34.9 Obesity, unspecified Type 2 diabetes mellitus treated with insulin ([facility])- Primary Type II or unspecified type diabetes mellitus without mention of complication, not stated as uncontrolled documented in this encounter [facility] note* Diagnosis Preop examination- Primary Preoperative examination, unspecified Rotator cuff syndrome of right shoulder Disorders of bursae and tendons in shoulder region, unspecified Obesity, Class II, BMI 35-39.9 Obesity, unspecified Gastroesophageal reflux disease without esophagitis Esophageal reflux Type 2 diabetes mellitus treated with insulin ([facility]) Type II or unspecified type diabetes mellitus without mention of complication, not stated as uncontrolled Migraine without aura and without status migrainosus, not intractable Migraine without aura, without mention of intractable migraine without mention of status migrainosus Ileostomy status ([facility]) Ileostomy status Fibromyalgia Mylagia and myositis, unspecified Obesity, Class I, BMI 30-34.9 Obesity, unspecified Pain Generalized pain Left knee pain, unspecified chronicity Pain in left hip Pain in joint, pelvic region and thigh documented in this encounter [facility] note* Diagnosis Preop examination- Primary Preoperative examination, unspecified Rotator cuff syndrome of right shoulder Disorders of bursae and tendons in shoulder region, unspecified Obesity, Class II, BMI 35-39.9 Obesity, unspecified Gastroesophageal reflux disease without esophagitis Esophageal reflux Type 2 diabetes mellitus treated with insulin ([facility]) Type II or unspecified type diabetes mellitus without mention of complication, not stated as uncontrolled Migraine without aura and without status migrainosus, not intractable Migraine without aura, without mention of intractable migraine without mention of status migrainosus Ileostomy status (HCC) Ileostomy status Fibromyalgia Mylagia and myositis, unspecified Obesity, Class I, BMI 30-34.9 Obesity, unspecified Pain in left hip- Primary Pain in joint, pelvic region and thigh Bursitis of right shoulder Disorders of bursae and tendons in shoulder region, unspecified Primary osteoarthritis of left hip Primary localized osteoarthrosis, pelvic region and thigh Pain Generalized pain Left knee pain, unspecified chronicity Pain in left hip Pain in joint, pelvic region and thigh documented [facility] encounter [facility]* Diagnosis Preop examination- Primary Preoperative examination, unspecified Rotator cuff syndrome of right shoulder Disorders of bursae and tendons in shoulder region, unspecified Obesity, Class II, BMI 35-39.9 Obesity, unspecified Gastroesophageal reflux disease without esophagitis Esophageal reflux Type 2 diabetes mellitus treated with insulin ([facility]) Type II or unspecified type diabetes mellitus without mention of complication, not stated as uncontrolled Migraine without aura and without status migrainosus, not intractable Migraine without aura, without mention of intractable migraine without mention of status migrainosus Ileostomy status (HCC) Ileostomy status Fibromyalgia Mylagia and myositis, unspecified Obesity, Class I, BMI 30-34.9 Obesity, unspecified Seronegative spondyloarthropathy- Primary Spondylosis of unspecified site without mention of myelopathy Long-term use of immunosuppressant medication Encounter for long-term (current) use of other medications Tick bite, unspecified site, sequela Pain in joint, multiple sites Joint swelling Effusion of joint, site unspecified documented in this encounter [facility]* Diagnosis Preop examination- Primary Preoperative examination, unspecified Rotator cuff syndrome of right shoulder Disorders of bursae and tendons in shoulder region, unspecified Obesity, Class II, BMI 35-39.9 Obesity, unspecified Gastroesophageal reflux disease without esophagitis Esophageal reflux Type 2 diabetes mellitus treated with insulin (HCC) Type II or unspecified type diabetes mellitus without mention of complication, not stated as uncontrolled Migraine without aura and without status migrainosus, not intractable Migraine without aura, without mention of intractable migraine without mention of status migrainosus Ileostomy status (HCC) Ileostomy status Fibromyalgia Mylagia and myositis, unspecified Obesity, Class I, BMI 30-34.9 Obesity, unspecified Pain in joint, multiple sites Joint swelling Effusion of joint, site unspecified documented in this encounter [facility]* Diagnosis Preop examination- Primary Preoperative examination, unspecified Rotator cuff syndrome of right shoulder Disorders of bursae and tendons in shoulder region, unspecified Obesity, Class II, BMI 35-39.9 Obesity, unspecified Gastroesophageal reflux disease without esophagitis Esophageal reflux Type 2 diabetes mellitus treated with insulin ([facility]) Type II or unspecified type diabetes mellitus without mention of complication, not stated as uncontrolled Migraine without aura and without status migrainosus, not intractable Migraine without aura, without mention of intractable migraine without mention of status migrainosus Ileostomy status ([facility]) Ileostomy status Fibromyalgia Mylagia and myositis, unspecified Obesity, Class I, BMI 30-34.9 Obesity, unspecified Diabetes mellitus type 1, controlled, without complications ([facility]) Type I (juvenile type) diabetes mellitus without mention of complication, not stated as uncontrolled documented in this encounter [facility]* Diagnosis Preop examination- Primary Preoperative examination, unspecified Rotator cuff syndrome of right shoulder Disorders of bursae and tendons in shoulder region, unspecified Obesity, Class II, BMI 35-39.9 Obesity, unspecified Gastroesophageal reflux disease without esophagitis Esophageal reflux Type 2 diabetes mellitus treated with insulin ([facility]) Type II or unspecified type diabetes mellitus without mention of complication, not stated as uncontrolled Migraine without aura and without status migrainosus, not intractable Migraine without aura, without mention of intractable migraine without mention of status migrainosus Ileostomy status ([facility]) Ileostomy status Fibromyalgia Mylagia and myositis, unspecified Obesity, Class I, BMI 30-34.9 Obesity, unspecified Seronegative spondyloarthropathy- Primary Spondylosis of unspecified site without mention of myelopathy Long-term use of immunosuppressant medication Encounter for long-term (current) use of other medications Pain in joint, multiple sites Crohn's disease with complication, unspecified gastrointestinal tract location (HCC) Osteoarthritis of spine, unspecified spinal osteoarthritis complication status, unspecified spinal region documented in this encounter [facility]* Diagnosis Preop examination- Primary Preoperative examination, unspecified Rotator cuff syndrome of right shoulder Disorders of bursae and tendons in shoulder region, unspecified Obesity, Class II, BMI 35-39.9 Obesity, unspecified Gastroesophageal reflux disease without esophagitis Esophageal reflux Type 2 diabetes mellitus treated with insulin (HCC) Type II or unspecified type diabetes mellitus without mention of complication, not stated as uncontrolled Migraine without aura and without status migrainosus, not intractable Migraine without aura, without mention of intractable migraine without mention of status migrainosus Ileostomy status (HCC) Ileostomy status Fibromyalgia Mylagia and myositis, unspecified Obesity, Class I, BMI 30-34.9 Obesity, unspecified Seronegative spondyloarthropathy- Primary Spondylosis of unspecified site without mention of myelopathy [facility]* Diagnosis Preop examination- Primary Preoperative examination, unspecified Rotator cuff syndrome of right shoulder Disorders of bursae and tendons in shoulder region, unspecified Obesity, Class II, BMI 35-39.9 Obesity, unspecified Gastroesophageal reflux disease without esophagitis Esophageal reflux Type 2 diabetes mellitus treated with insulin (HCC) Type II or unspecified type diabetes mellitus without mention of complication, not stated as uncontrolled Migraine without aura and without status migrainosus, not intractable Migraine without aura, without mention of intractable migraine without mention of status migrainosus Ileostomy status (HCC) Ileostomy status Fibromyalgia Mylagia and myositis, unspecified Obesity, Class I, BMI 30-34.9 Obesity, unspecified Seronegative spondyloarthropathy- Primary Spondylosis of unspecified site without mention of myelopathy [facility]* Diagnosis Preop examination- Primary Preoperative examination, unspecified Rotator cuff syndrome of right shoulder Disorders of bursae and tendons in shoulder region, unspecified Obesity, Class II, BMI 35-39.9 Obesity, unspecified Gastroesophageal reflux disease without esophagitis Esophageal reflux Type 2 diabetes mellitus treated with insulin (HCC) Type II or unspecified type diabetes mellitus without mention of complication, not stated as uncontrolled Migraine without aura and without status migrainosus, not intractable Migraine without aura, without mention of intractable migraine without mention of status migrainosus Ileostomy status (HCC) Ileostomy status Fibromyalgia Mylagia and myositis, unspecified Obesity, Class I, BMI 30-34.9 Obesity, unspecified Pain in left hip- Primary Pain in joint, pelvic region and thigh Bursitis of right shoulder Disorders of bursae and tendons in shoulder region, unspecified Primary osteoarthritis of left hip Primary localized osteoarthrosis, pelvic region and thigh documented in this encounter [facility]* Diagnosis Preop examination- Primary Preoperative examination, unspecified Rotator cuff syndrome of right shoulder Disorders of bursae and tendons in shoulder region, unspecified Obesity, Class II, BMI 35-39.9 Obesity, unspecified Gastroesophageal reflux disease without esophagitis Esophageal reflux Type 2 diabetes mellitus treated with insulin (HCC) Type II or unspecified type diabetes mellitus without mention of complication, not stated as uncontrolled Migraine without aura and without status migrainosus, not intractable Migraine without aura, without mention of intractable migraine without mention of status migrainosus Ileostomy status (HCC) Ileostomy status Fibromyalgia Mylagia and myositis, unspecified Obesity, Class I, BMI 30-34.9 Obesity, unspecified Pain in left hip- Primary Pain in joint, pelvic region and thigh Primary osteoarthritis of left hip Primary localized osteoarthrosis, pelvic region and thigh Bursitis of right shoulder Disorders of bursae and tendons in shoulder region, unspecified documented in this encounter [facility] note* Diagnosis Preop examination- Primary Preoperative examination, unspecified Rotator cuff syndrome of right shoulder Disorders of bursae and tendons in shoulder region, unspecified Obesity, Class II, BMI 35-39.9 Obesity, unspecified Gastroesophageal reflux disease without esophagitis Esophageal reflux Type 2 diabetes mellitus treated with insulin (HCC) Type II or unspecified type diabetes mellitus without mention of complication, not stated as uncontrolled Migraine without aura and without status migrainosus, not intractable Migraine without aura, without mention of intractable migraine without mention of status migrainosus Ileostomy status (HCC) Ileostomy status Fibromyalgia Mylagia and myositis, unspecified Obesity, Class I, BMI 30-34.9 Obesity, unspecified Pain in left hip- Primary Pain in joint, pelvic region and thigh Bursitis of right shoulder Disorders of bursae and tendons in shoulder region, unspecified Primary osteoarthritis of left hip Primary localized osteoarthrosis, pelvic region and thigh documented in this encounter [facility] note* Diagnosis Preop examination- Primary Preoperative examination, unspecified Rotator cuff syndrome of right shoulder Disorders of bursae and tendons in shoulder region, unspecified Obesity, Class II, BMI 35-39.9 Obesity, unspecified Gastroesophageal reflux disease without esophagitis Esophageal reflux Type 2 diabetes mellitus treated with insulin (HCC) Type II or unspecified type diabetes mellitus without mention of complication, not stated as uncontrolled Migraine without aura and without status migrainosus, not intractable Migraine without aura, without mention of intractable migraine without mention of status migrainosus Ileostomy status (HCC) Ileostomy status Fibromyalgia Mylagia and myositis, unspecified Obesity, Class I, BMI 30-34.9 Obesity, unspecified Type 2 diabetes mellitus with hyperglycemia, with long-term current use of insulin (HCC)- Primary documented in this encounter [facility] for referral (narrative)* Outpatient Procedure (Routine) - Authorized Specialty Diagnoses / Procedures Referred By John flaherty Ref[facility] Diagnoses Ingrown toenail of left foot Ingrowing toenail of right foot Diminished pulses in lower extremity Procedures PVR ANK PRESS CHRISTOFER VAS LAB NON-INVAS PHYSIOLOGIC STD EXTREMITY ART 2 LEVEL Savanna Flores [address] [place] [address] [facility] [address] [place] [address] Referral ID Status Reason Start Date Expiration Date Visits Requested Visits Authorized [id number] Authorized Auto-Generat ed Referral 02/22/2022 02/22/2023 1 1 [facility] for referral (narrative)* Diagnostic Procedure Only (Routine) - Pending Review Specialty Diagnoses / Procedures Referred By John flaherty Referred To Contact US IMAGING Diagnoses Lateral epicondylitis of right elbow Procedures US ELBOW RT US LMTD JOINT/OTH NONVASC XTR STRUX R-T W/[place] [address] Us Imaging Referral ID Status Reason Start Date Expiration Date Visits Requested Visits Authorized [id number] Pending Review Auto-Generat ed Referral 07/13/2022 08/12/2023 1 1 [facility] for referral (narrative)* Outpatient Procedure (Routine) - Pending Review Specialty Diagnoses / Procedures Referred By John flaherty Referred To Contact [facility] Diagnoses Non-alcoholic fatty liver disease Procedures DDI VIBRATION CONTROLLED TRANSIENT ELASTOGRAPHY (VCTE) LIVER ELASTOGRAPHY W/O IMAG W/I&R Safia Kennedy PA-C [address] [place] [address] [facility] [address] [address] Referral ID Status Reason Start Date Expiration Date Visits Requested Visits Authorized [id number] Pending Review Auto-Generat ed Referral 01/04/2023 07/26/2023 1 1 [facility] for referral (narrative)* Outpatient Procedure (Routine) - Authorized Specialty Diagnoses / Procedures Referred By Contac t Referred To Contact [facility] Diagnoses Contraception, device intrauterine Encounter for IUD insertion Procedures INSERT INTRAUTERINE DEVICE LEVONORGESTREL IU 52MG 5 YR INSERT INTRAUTERINE DEVICE Safia Jamil MD [address] [place] [address] [address] Referral ID Status Reason Start Date Expiration Date Visits Requested Visits Authorized [id number] Authorized Auto-Generat ed Referral 11/17/2022 11/17/2023 1 1 * Diagnostic Procedure Only (Routine) - Authorized Specialty Diagnoses / Procedures Referred By Contac t Referred To Contact [facility] Diagnoses Pelvic pain in female Procedures PELVIC US WHI US PELVIC NONOBSTETRIC REAL-TIME IMAGE COMPLETE Safia Jamil MD [address] [facility] [address] [address] Referral ID Status Reason Start Date Expiration Date Visits Requested Visits Authorized [id number] Authorized Auto-Generat ed Referral 11/17/2022 11/17/2023 1 1 * Diagnostic Procedure Only (Routine) - Pending Review Specialty Diagnoses / Procedures Referred By Contac t Referred To Contact [facility] IMAG[facility] Diagnoses Pelvic pain in female Procedures US FEMALE PELVIS TRANSVAG US TRANSVAGINAL Safia Jamil MD [address] [place] [address] Us Imaging Referral ID Status Reason Start Date Expiration Date Visits Requested Visits Authorized [id number] Pending Review Auto-Generat ed Referral 11/17/2022 12/17/2023 1 1 * Diagnostic Procedure Only (Routine) - Pending Review Specialty Diagnoses / Procedures Referred By John flaherty Referred To Contact [facility] Diagnoses Encounter for screening mammogram for breast cancer Procedures SÁNCHEZ SCREENING SCREENING MAMMOGRAPHY BI 2-VIEW BREAST INC CAD Safia Jamil MD [address] [place] [address] [facility] [address] [place] [phone] Referral ID Status Reason Start Date Expiration Date Visits Requested Visits Authorized [id number] Pending Review Auto-Generat ed Referral 11/17/2022 12/17/2023 1 1 [facility] Diagnostic Procedure Only (Routine) - Authorized Specialty Diagnoses / Procedures Referred By John flaherty Referred To Contact [facility] Diagnoses Encounter for IUD insertion Procedures PELVIC US WHI US PELVIC NONOBSTETRIC REAL-TIME IMAGE COMPLETE Safia Jamil MD [address] [place] [address] [facility][Note 3] [address] [place] [id number] Referral ID Status Reason Start Date Expiration Date Visits Requested Visits Authorized [id number] Authorized Auto-Generat ed Referral 12/01/2022 12/01/2023 1 1 * Outpatient Procedure (Routine) - Authorized Specialty Diagnoses / Procedures Referred By John flaherty Referred To Contact [facility] Diagnoses Contraception, device intrauterine Encounter for IUD insertion Procedures INSERT INTRAUTERINE DEVICE LEVONORGESTREL IU 52MG 5 YR INSERT INTRAUTERINE DEVICE Safia Jamil MD [address] [place] [address] [facility][Note 3] [address] [place] [address] Referral ID Status Reason Start Date Expiration Date Visits Requested Visits Authorized [id number] Authorized Auto-Generat ed Referral 12/01/2022 12/01/2023 1 1 [facility] for referral (narrative)* Outpatient Procedure (Routine) - Pending Review Specialty Diagnoses / Procedures Referred By Contac t Referred To Contact [facility] Diagnoses Encounter for IUD insertion Procedures INSERT INTRAUTERINE DEVICE LEVONORGESTREL IU 52MG 5 YR INSERT INTRAUTERINE DEVICE Safia Jamil MD [address] [place] [address] [address] Referral ID Status Reason Start Date Expiration Date Visits Requested Visits Authorized [id number] Pending Review Auto-Generat ed Referral 12/08/2022 12/08/2023 1 1 [facility] for referral (narrative)* Outpatient Procedure (Routine) - Pending Review Specialty Diagnoses / Procedures Referred By Contac t Referred To Contact [facility] Diagnoses Inflammatory bowel disease Procedures ILEOSCOPY ENTEROSC >2ND PRTN W/ILEUM W/WO COLLJ SPEC SPX Albina Rodgers, SQL ANALYST [address] [place] [address] [address] Referral ID Status Reason Start Date Expiration Date Visits Requested Visits Authorized [id number] Pending Review Auto-Generat ed Referral 12/22/2022 12/22/2023 1 1 * Outpatient Procedure (Routine) - Pending Review Specialty Diagnoses / Procedures Referred By Contac t Referred To Contact [facility] Diagnoses Inflammatory bowel disease Procedures EGD DIAGNOSTIC ESOPHAGOGASTRODUODENOSC OPY TRANSORAL DIAGNOSTIC Albina Rodgers APRN.CNP [address] [place] [phone] [facility] [address] [place], [place] [id number] Referral ID Status Reason Start Date Expiration Date Visits Requested Visits Authorized [id number] Pending Review Auto-Generat ed Referral 12/22/2022 12/22/2023 1 1 [facility] for referral (narrative)* Diagnostic Procedure Only (Routine) - Authorized Specialty Diagnoses / Procedures Referred By Contac t Referred To Contact [facility] Diagnoses Cyst of ovary, unspecified laterality Pelvic pain in female IUD (intrauterine device) in place Procedures PELVIC US WHI US PELVIC NONOBSTETRIC REAL-TIME IMAGE COMPLETE Safia Jamil MD [address] [place] [address] [place] [phone] Referral ID Status Reason Start Date Expiration Date Visits Requested Visits Authorized [id number] Authorized Auto-Generat ed Referral 01/19/2023 12/22/2023 1 1 [facility] for referral (narrative)* Diagnostic Procedure Only (Routine) - Pending Review Specialty Diagnoses / Procedures Referred By Contac t Referred To Contact [facility] Diagnoses Hyperparathyroidism (HCC) Procedures NM PARATHYROID W SPECT/CT PARATHYROID IMAGING W/TOMOGRAPHIC SPECT & CT Helio Teresa MD [address] [place] [address] [facility] [address] [place] [phone] Referral ID Status Reason Start Date Expiration Date Visits Requested Visits Authorized [id number] Pending Review Auto-Generat ed Referral 01/06/2023 02/05/2024 1 1 * Diagnostic Procedure Only (Routine) - Pending Review Specialty Diagnoses / Procedures Referred By Contac t Referred To Contact XR IMAGING Diagnoses Hyperparathyroidism (HCC) Procedures DXA-FOREARM SKELETON DXA BONE DENSITY STUDY 1/>SITES APPENDICLR Helio Lopez MD [address] [place] [address] Xr Imaging Referral ID Status Reason Start Date Expiration Date Visits Requested Visits Authorized [id number] Pending Review Auto-Generat ed Referral 01/06/2023 02/05/2024 1 1 [facility] for referral (narrative)* Outpatient Procedure (Routine) - Closed Specialty Diagnoses / Procedures Referred By Contac t Referred To Contact [facility] Diagnoses Inflammatory bowel disease Procedures ILEOSCOPY ENTEROSC >2ND PRTN W/ILEUM W/WO COLLJ SPEC SPX Albina Rodgers APRN.SQL ANALYST [address] [place] [address] [facility] [place] [phone] Referral ID Status Reason Start Date Expiration Date V isits Requested Visits Authorized [id number] Closed Auto-Generate d Referral 12/22/2022 12/22/2023 1 1 * Outpatient Procedure (Routine) - Closed Specialty Diagnoses / Procedures Referred By Contac t Referred To Contact [facility] Diagnoses Inflammatory bowel disease Procedures EGD DIAGNOSTIC ESOPHAGOGASTRODUODENOSC OPY TRANSORAL DIAGNOSTIC Albina Rodgers APRN.SQL ANALYST [address] [place] [address] Albina Rodgers APRN.SQL ANALYST [address] [place] [address] Referral ID Status Reason Start Date Expiration Date V isits Requested Visits Authorized [id number] Closed Auto-Generate d Referral 05/02/2023 07/31/2023 1 1 [facility] for referral (narrative)* Diagnostic Procedure Only (Routine) - Pending Review Specialty Diagnoses / Procedures Referred By Contac t Referred To Contact [facility] Diagnoses Encounter for screening mammogram for breast cancer Procedures SÁNCHEZ SCREENING SCREENING MAMMOGRAPHY BI 2-VIEW BREAST INC CAD Safia Jamil MD [address] [place] [address] [facility] [address] [place] [address] Referral ID Status Reason Start Date Expiration Date Visits Requested Visits Authorized [id number] Pending Review Auto-Generat ed Referral 05/29/2023 06/27/2024 1 1 T [facility] for referral (narrative)* Diagnostic Procedure Only (Routine) - Pending Review Specialty Diagnoses / Procedures Referred By Contac t Referred To Contact XR IMAGING Diagnoses Primary hyperparathyroidism (HCC) Procedures DXA-FOREARM SKELETON DXA BONE DENSITY STUDY 1/>SITES Panda Giraldo MD [address] [place] [address] [place] [address] Referral ID Status Reason Start Date Expiration Date Visits Requested Visits Authorized [id number] Pending Review Auto-Generat ed Referral 07/24/2023 08/22/2024 1 1 T [facility] for referral (narrative)* Diagnostic Procedure Only (Routine) - Closed Specialty Diagnoses / Procedures Referred By Contac t Referred To Contact XR IMAGING Diagnoses Primary hyperparathyroidism (HCC) Procedures DXA-FOREARM SKELETON DXA BONE DENSITY STUDY 1/>SITES Panda Giraldo MD [address] [place] [address] [place] [address] Referral ID Status Reason Start Date Expiration Date V isits Requested Visits Authorized [id number] Closed Auto-Generate d Referral 09/18/2023 11/12/2023 1 1 [facility] for referral (narrative)* Diagnostic Procedure Only (Urgent) - Closed Specialty Diagnoses / Procedures Referred By Contac t Referred To Contact XR IMAGING Diagnoses Left wrist pain Procedures XR WRIST GENERAL 3V PA/LAT/OBL LEFT RADEX WRIST COMPLETE MINIMUM 3 VIEWS Albina Long, GITA [address] [place] [address] [place] [address] Referral ID Status Reason Start Date Expiration Date V isits Requested Visits Authorized [id number] Closed Auto-Generate d Referral 10/04/2023 11/02/2024 1 1 [facility] for referral (narrative)* Diagnostic Procedure Only (Routine) - Authorized Specialty Diagnoses / Procedures Referred By John flaherty Referred To Contact [facility] Diagnoses Nephrolithiasis Procedures US KIDNEY/BLADDER US RETROPERITONEAL REAL TIME W/IMAGE COMPLETE Samy Barragan PA-C [address] [place] [address] Us Imaging [facility] Referral ID Status Reason Start Date Expiration Date Visits Requested Visits Authorized [id number] Authorized Auto-Generat ed Referral 05/15/2024 06/14/2025 1 1 [facility] [facility] (narrative)* Diagnostic Procedure Only (Routine) - New Request Specialty Diagnoses / Procedures Referred By John t Referred To Contact [facility] Diagnoses Encounter for screening mammogram for breast cancer Procedures SÁNCHEZ SCREENING W JAZIEL SCREENING DIGITAL BREAST TOMOSYNTHESIS BI SCREENING MAMMOGRAPHY BI 2-VIEW BREAST INC CAD Safia Jamil MD [address] [place] [address] [facility] [address] [place] [address] Referral ID Status Reason Start Date Expiration Date Visits Requested Visits Authorized [id number] New Request Auto-Generat ed Referral 06/17/2024 07/17/2025 1 1 [facility] for referral (narrative)* Diagnostic Procedure Only (Routine) - Authorized Specialty Diagnoses / Procedures Referred By John t Referred To Contact [facility] Diagnoses Nephrolithiasis Procedures US KIDNEY/BLADDER US RETROPERITONEAL REAL TIME W/IMAGE COMPLETE Samy Barragan PA-C [address] [place] [address] [place] [address] Referral ID Status Reason Start Date Expiration Date Visits Requested Visits Authorized [id number] Authorized Auto-Generat ed Referral 07/17/2024 08/16/2025 1 1 [facility] for referral (narrative)* Diagnostic Procedure Only (Urgent) - Closed Specialty Diagnoses / Procedures Referred By John t Referred To Contact XR IMAGING Diagnoses Left wrist pain Procedures XR WRIST GENERAL 3V PA/LAT/OBL LEFT RADEX WRIST COMPLETE MINIMUM 3 VIEWS Albina Long, PERMIT TECHNICIAN.SQL ANALYST [address] [place] [address] [place] [address] Referral ID Status Reason Start Date Expiration Date V isits Requested Visits Authorized [id number] Closed Auto-Generate d Referral 10/04/2023 11/02/2024 1 1 [facility] for referral (narrative)* Diagnostic Procedure Only (Routine) - Closed Specialty Diagnoses / Procedures Referred By John t Referred To Contact [facility] Diagnoses Lateral epicondylitis of right elbow Procedures US ELBOW RT US LMTD JOINT/OTH NONVASC XTR STRUX R-T W/[place]IN[place] [address] [place] [address] Referral ID Status Reason Start Date Expiration Date V isits Requested Visits Authorized [id number] Closed Auto-Generate d Referral 07/13/2022 08/12/2023 1 1 [facility] for visit Narrative* Diagnostic Procedure Only (Routine) - Closed Specialty Diagnoses / Procedures Referred By Contac t Referred To Contact [facility] Diagnoses Pelvic pain in female Procedures PELVIC US [facility] US PELVIC NONOBSTETRIC REAL-TIME IMAGE COMPLETE Safia Jamil MD [address] [place] [address] [facility][Note 3] [address] [place] [address] Referral ID Status Reason Start Date Expiration Date V isits Requested Visits Authorized [id number] Closed Auto-Generate d Referral 11/17/2022 11/17/2023 1 1 [facility] for visit Narrative* Diagnostic Procedure Only (Routine) - Closed Specialty Diagnoses / Procedures Referred By John t Referred To Contact [facility] Diagnoses Encounter for IUD insertion Procedures PELVIC US [facility] US PELVIC NONOBSTETRIC REAL-TIME IMAGE COMPLETE Safia Jamil MD [address] [place] [address] [facility][Note 3] [address] [place] [address] Referral ID Status Reason Start Date Expiration Date V isits Requested Visits Authorized [id number] Closed Auto-Generate d Referral 12/01/2022 12/01/2023 1 1 [facility] for visit Narrative* Outpatient Procedure (Routine) - Closed Specialty Diagnoses / Procedures Referred By Karlac t Referred To Contact [facility] Diagnoses Non-alcoholic fatty liver disease Procedures DDI VIBRATION CONTROLLED TRANSIENT ELASTOGRAPHY (VCTE) LIVER ELASTOGRAPHY W/O IMAG W/I&R Safia Kennedy PA-C [address] [place] [address] [address] Referral ID Status Reason Start Date Expiration Date V isits Requested Visits Authorized [id number] Closed Auto-Generate d Referral 01/04/2023 07/26/2023 1 1 [facility] for visit Narrative* Outpatient Procedure (Routine) - Closed Specialty Diagnoses / Procedures Referred By Contac t Referred To Contact [facility] Diagnoses Inflammatory bowel disease Procedures ILEOSCOPY ENTEROSC >2ND PRTN W/ILEUM W/WO COLLJ SPEC SPX Albina Rodgers, PERMIT TECHNICIAN.SQL ANALYST [address] [place] [address] [facility] [address] [place] [address] Referral ID Status Reason Start Date Expiration Date V isits Requested Visits Authorized [id number] Closed Auto-Generate d Referral 12/22/2022 12/22/2023 1 1 [facility] for visit Narrative* Diagnostic Procedure Only (Routine) - Closed Specialty Diagnoses / Procedures Referred By Contac t Referred To Contact XR IMAGING Diagnoses Primary hyperparathyroidism (HCC) Procedures DXA-FOREARM SKELETON DXA BONE DENSITY STUDY 1/SITES APPENDICLR Panda Alvarado MD [address] [place] [address] Xr Imaging [id number] Referral ID Status Reason Start Date Expiration Date V isits Requested Visits Authorized [id number] Closed Auto-Generate d Referral 09/18/2023 11/12/2023 1 1 [facility] for visit Narrative* Diagnostic Procedure Only (Urgent) - Closed Specialty Diagnoses / Procedures Referred By Contac t Referred To Contact XR IMAGING Diagnoses Left wrist pain Procedures XR WRIST GENERAL 3V PA/LAT/OBL LEFT RADEX WRIST COMPLETE MINIMUM 3 VIEWS Albina Long, PERMIT TECHNICIAN.SQL ANALYST [address] [place] [address] [place] [address] Referral ID Status Reason Start Date Expiration Date V isits Requested Visits Authorized [id number] Closed Auto-Generate d Referral 10/04/2023 11/02/2024 1 1 [facility] for visit Narrative* Diagnostic Procedure Only (Routine) - Closed Specialty Diagnoses / Procedures Referred By Contac t Referred To Contact [facility] Diagnoses Lateral epicondylitis of right elbow Procedures US ELBOW RT US LMTD JOINT/OTH NONVASC XTR STRUX R-T W/IMG Mika Simmons, [place] [address] [place] [address] Referral ID Status Reason Start Date Expiration Date V isits Requested Visits Authorized [id number] Closed Auto-Generate d Referral 07/13/2022 08/12/2023 1 1 [facility] for visit Narrative* Diagnostic Procedure Only (Routine) - Closed Specialty Diagnoses / Procedures Referred By Contac t Referred To Contact XR IMAGING Diagnoses Pain Procedures XR SHOULDER GENERAL 3V OR MORE AP/TRUE AP/OTHER RIGHT RADEX SHOULDER COMPLETE MINIMUM 2 VIEWS Lara Reeder DO [address] [place] [address] Phone: tel: fax: [place] [address] Referral ID Status Reason Start Date Expiration Date V isits Requested Visits Authorized [id number] Closed Auto-Generate d Referral 02/04/2025 03/06/2026 1 1 [facility] for visit Narrative* Diagnostic Procedure Only (Routine) - Closed Specialty Diagnoses / Procedures Referred By Contac t Referred To Contact [facility] Diagnoses Pain in joint, multiple sites Joint swelling Procedures US HAND/WRIST SYNOVIAL SCREEN LEFT US COMPL JOINT R-T W/IMAGE DOCUMENTATION Scott Gold MD [address] [place] [address] Phone: tel: [place] [address] Referral ID Status Reason Start Date Expiration Date V isits Requested Visits Authorized [id number] Closed Auto-Generate d Referral 03/24/2025 04/23/2026 1 1 [facility] Advance Directives Documents on File Type Date Recorded Patient Salt Refiner Expl anation Advance Directive(s) 06/22/2021 11:21 AM Advance Directive(s) 06/10/2021 1:26 PM Advance Directive(s) 05/31/2021 9:22 AM Advance Directive(s) 06/11/2018 8:35 PM Advance Directive Response Recorded Date/ Time Living Will No May 19, 2020 1 2:52pm Power of Lap Grinder No May 19, 2020 12:52pm Documents on File Type Date Recorded Patient Salt Refiner Expl anation Advance Directive(s) 06/22/2021 11:21 AM Advance Directive(s) 06/10/2021 1:26 PM Advance Directive(s) 05/31/2021 9:22 AM Advance Directive(s) 06/11/2018 8:35 PM Documents on File Type Date Recorded Patient Salt Refiner Expl anation Advance Directive(s) 03/04/2022 2:11 PM Advance Directive(s) 06/22/2021 11:21 AM Advance Directive(s) 06/10/2021 1:26 PM Advance Directive(s) 05/31/2021 9:22 AM Advance Directive(s) 06/11/2018 8:35 PM Documents on File Type Date Recorded Patient Salt Refiner Expl anation Advance Directive(s) 03/04/2022 2:11 PM Advance Directive(s) 06/22/2021 11:21 AM Advance Directive(s) 06/10/2021 1:26 PM Advance Directive(s) 05/31/2021 9:22 AM Advance Directive(s) 06/11/2018 8:35 PM Advance Directive Response Recorded Date/ Time Living Will No May 19, 2020 1 1:52am Power of Lap Grinder No May 19, 2020 11:52am Advance Directive Response Recorded Date/ Time Living Will No January 19, 2024 9:10am Power of Lap Grinder No January 18 9:10am Advance Directive Response Recorded Date/ Time Living Will No January 19, 2024 10:10am Power of Lap Grinder No January 18 10:10am Reason for Referral Specialty Diagnoses / Procedures Referred By John flaherty Referred To Contact [facility] Diagnoses Lateral epicondylitis of left elbow Procedures PT REHAB FOLLOW UP ORDER THERAPEUTIC EXERCISES RE, EA 15 MIN. Pt [facility] [address] [place] [address] [facility] [address] [address] Referral ID Status Reason Start Date Expiration Date Visits Requested Visits Authorized [id number] Pending Review PCP Requested Referral Auto-Generate d Referral 02/28/2022 05/29/2022 1 1 Specialty Diagnoses / Procedures Referred By John flaherty Referred To Contact [facility] Diagnoses S/P shoulder surgery Chronic right shoulder pain Procedures PT REHAB FOLLOW UP ORDER THERAPEUTIC EXERCISES RE, EA 15 MIN. Sánchez Bedolla, PT, DPT [address] [place] [address] [facility] [address] [address] Referral ID Status Reason Start Date Expiration Date Visits Requested Visits Authorized [id number] Authorized PCP Requested Referral Auto-Generate d Referral 03/18/2022 06/18/2022 8 8 Specialty Diagnoses / Procedures Referred By Contac t Referred To Contact Gastroenterology Diagnoses Inflammatory bowel disease Procedures CONSULT TO GASTROENTEROLOGY OFFICE/OUTPATIENT [facility] HIGH MDM 60-74 MINUTES Malathi Rodriguez MD [address] [place] [address] Referral ID Status Reason Start Date Expiration Date Visits Requested Visits Authorized [id number] Authorized PCP Requested Referral 03/24/2022 03/24/2023 1 1 Specialty Diagnoses / Procedures Referred By Contac t Referred To Contact CT IMAGING Diagnoses Inflammatory bowel disease Procedures CT ENTEROGRAPHY W IVCON CT ABD & PELVIS W/CONTRAST Malathi Rodriguez MD [address] [place] [address] Ct Imaging Referral ID Status Reason Start Date Expiration Date Visits Requested Visits Authorized [id number] Waiting for Online Response Auto-Generat ed Referral 03/24/2022 04/23/2023 2 2 Specialty Diagnoses / Procedures Referred By Contac t Referred To Contact [facility] Diagnoses Chronic right shoulder pain S/P shoulder surgery Procedures PT REHAB FOLLOW UP ORDER THERAPEUTIC EXERCISES RE, EA 15 MIN. Sánchez Bedolla, PT, DPT [address] [place] [address] [facility] [place] [address] Referral ID Status Reason Start Date Expiration Date Visits Requested Visits Authorized [id number] Pending Review PCP Requested Referral Auto-Generate d Referral 04/07/2022 07/06/2022 1 1 Referral ID Status Reason Start Date Expiration Date V isits Requested Visits Authorized [id number] Closed Auto-Generate d Referral 03/24/2022 04/23/2023 2 2 Specialty Diagnoses / Procedures Referred By Contac t Referred To Contact [facility] Diagnoses Right shoulder pain, unspecified chronicity S/P shoulder surgery Procedures PT REHAB FOLLOW UP ORDER THERAPEUTIC EXERCISES RE, EA [address] [place] [address] [facility] [address] [address] Referral ID Status Reason Start Date Expiration Date Visits Requested Visits Authorized [id number] Pending Review PCP Requested Referral Auto-Generate d Referral 05/10/2022 08/08/2022 1 1 Specialty Diagnoses / Procedures Referred By Contac t Referred To Contact [facility] Diagnoses Right tennis elbow Procedures CONSULT TO PHYSICAL THERAPY PHYSICAL THERAPY EVALUATION HIGH COMPLEX 45 MINS Mika Simmons, [place] [address] [facility] [address] [address] Referral ID Status Reason Start Date Expiration Date Visits Requested Visits Authorized [id number] Pending Review Auto-Generat ed Referral 01/27/2023 01/27/2024 1 1 Specialty Diagnoses / Procedures Referred By Contac t Referred To Contact [facility] Diagnoses Right tennis elbow Procedures PT REHAB FOLLOW UP ORDER THERAPEUTIC EXERCISES RE, EA 15 MIN. Roseline Jacobo, PT [address] [place] [address] [facility] [address] [address] Referral ID Status Reason Start Date Expiration Date Visits Requested Visits Authorized [id number] Pending Review PCP Requested Referral Auto-Generate d Referral 02/17/2023 05/18/2023 1 1 Specialty Diagnoses / Procedures Referred By Contac t Referred To Contact [facility] Diagnoses Pain in right elbow Right shoulder pain, unspecified chronicity Procedures PT REHAB FOLLOW UP ORDER THERAPEUTIC EXERCISES RE, EA 15 MIN. Roseline Jacobo, PT [address] [place] [address] [facility] [address] [address] Referral ID Status Reason Start Date Expiration Date Visits Requested Visits Authorized [id number] Pending Review PCP Requested Referral Auto-Generate d Referral 03/16/2023 06/14/2023 1 1 Referral ID Status Reason Start Date Expiration Date Visits Requested Visits Authorized [id number] Pending Review PCP Requested Referral Auto-Generate d Referral 04/11/2023 07/10/2023 1 1 Specialty Diagnoses / Procedures Referred By Contac t Referred To Contact [facility] Diagnoses Left hand pain Procedures CONSULT TO PHARMACY DISTRICT MANAGER OCCUPATIONAL THERAPY EVAL HIGH COMPLEX 60 MINS Abhi Pop MD [address] [place] [address] [facility] [place] [id number] Referral ID Status Reason Start Date Expiration Date Visits Requested Visits Authorized [id number] Authorized Auto-Generat ed Referral 11/13/2022 11/12/2023 1 1 Specialty Diagnoses / Procedures Referred By John t Referred To Contact [facility] Diagnoses Left hand pain Procedures US HAND/FINGER LEFT US LMTD JOINT/OTH NONVASC XTR STRUX R-T W/IMG Abhi Pop MD [address] [place] [address] Us Imaging [id number] Referral ID Status Reason Start Date Expiration Date Visits Requested Visits Authorized [id number] Pending Review Auto-Generat ed Referral 11/09/2024 1 1 Medications Administered Section Inactive Administered Medications - up to 3 most recent administrations Medication Order MAR Action Action Date Dose Rate Site NaCl 0.9% iv infusion 30 mL/hr, INTRAVENOUS, CONTINUOUS, Starting on Mon05/02/23 at 1100, Until Mon05/03/23 at 0423, Preprocedure New Bag/Syringe/Bottle 05/02/2023 11:21 AM EDT 30 mL/hr 30 mL/hr Chief Complaint and Reason for Visit Chief Complaint Opioid dependence, u ncomplicated Chief Complaint Opioid dependence, u ncomplicated flank pain Summary Purpose Family History No Family History Records FoundNo Family History Records FoundNo Family History Records FoundNo Family History Records Found Additional Source Comments Source Comments (unrecognize d section and content) In the event this informatio n is protected by the Federal Confidentiality of Alcohol and Drug Abuse Patient Records regulations: The Federal rules restrict any use of the information to criminally investigate or prosecute any alcohol or drug abuse patient.[facility] Health AdministrationIn the event this information is protected by the Federal Confidentiality of Alcohol and Drug Abuse Patient Records regulations: The Federal rules restrict any use of the information to criminally investigate or prosecute any alcohol or drug abuse patient.[facility] AdministrationIn the event this information is protected by the Federal Confidentiality of Alcohol and Drug Abuse Patient Records regulations: The Federal rules restrict any use of the information to criminally investigate or prosecute any alcohol or drug abuse patient.[facility] AdministrationIn the event this information is protected by the Federal Confidentiality of Alcohol and Drug Abuse Patient Records regulations: The Federal rules restrict any use of the information to criminally investigate or prosecute any alcohol or drug abuse patient.[facility] AdministrationIn the event this information is protected by the Federal Confidentiality of Alcohol and Drug Abuse Patient Records regulations: The Federal rules restrict any use of the information to criminally investigate or prosecute any alcohol or drug abuse patient.[facility] the event this information is protected by the Federal Confidentiality of Alcohol and Drug Abuse Patient Records regulations: The Federal rules restrict any use of the information to criminally investigate or prosecute any alcohol or drug abuse patient.[facility] AdministrationIn the event this information is protected by the Federal Confidentiality of Alcohol and Drug Abuse Patient Records regulations: The Federal rules restrict any use of the information to criminally investigate or prosecute any alcohol or drug abuse patient.[facility] AdministrationIn the event this information is protected by the Federal Confidentiality of Alcohol and Drug Abuse Patient Records regulations: The Federal rules restrict any use of the information to criminally investigate or prosecute any alcohol or drug abuse patient.[facility] AdministrationIn the event this information is protected by the Federal Confidentiality of Alcohol and Drug Abuse Patient Records regulations: The Federal rules restrict any use of the information to criminally investigate or prosecute any alcohol or drug abuse patient.[facility] AdministrationIn the event this information is protected by the Federal Confidentiality of Alcohol and Drug Abuse Patient Records regulations: The Federal rules restrict any use of the information to criminally investigate or prosecute any alcohol or drug abuse patient.[facility] AdministrationIn the event this information is protected by the Federal Confidentiality of Alcohol and Drug Abuse Patient Records regulations: The Federal rules restrict any use of the information to criminally investigate or prosecute any alcohol or drug abuse patient.[facility] AdministrationIn the event this information is protected by the Federal Confidentiality of Alcohol and Drug Abuse Patient Records regulations: The Federal rules restrict any use of the information to criminally investigate or prosecute any alcohol or drug abuse patient.[facility] AdministrationIn the event this information is protected by the Federal Confidentiality of Alcohol and Drug Abuse Patient Records regulations: The Federal rules restrict any use of the information to criminally investigate or prosecute any alcohol or drug abuse patient.[facility] AdministrationIn the event this information is protected by the Federal Confidentiality of Alcohol and Drug Abuse Patient Records regulations: The Federal rules restrict any use of the information to criminally investigate or prosecute any alcohol or drug abuse patient.[facility] AdministrationIn the event this information is protected by the Federal Confidentiality of Alcohol and Drug Abuse Patient Records regulations: The Federal rules restrict any use of the information to criminally investigate or prosecute any alcohol or drug abuse patient.[facility] AdministrationIn the event this information is protected by the Federal Confidentiality of Alcohol and Drug Abuse Patient Records regulations: The Federal rules restrict any use of the information to criminally investigate or prosecute any alcohol or drug abuse patient.[facility] AdministrationIn the event this information is protected by the Federal Confidentiality of Alcohol and Drug Abuse Patient Records regulations: The Federal rules restrict any use of the information to criminally investigate or prosecute any alcohol or drug abuse patient.[facility] AdministrationIn the event this information is protected by the Federal Confidentiality of Alcohol and Drug Abuse Patient Records regulations: The Federal rules restrict any use of the information to criminally investigate or prosecute any alcohol or drug abuse patient.[facility] AdministrationIn the event this information is protected by the Federal Confidentiality of Alcohol and Drug Abuse Patient Records regulations: The Federal rules restrict any use of the information to criminally investigate or prosecute any alcohol or drug abuse patient.[facility] AdministrationIn the event this information is protected by the Federal Confidentiality of Alcohol and Drug Abuse Patient Records regulations: The Federal rules restrict any use of the information to criminally investigate or prosecute any alcohol or drug abuse patient.[facility] AdministrationIn the event this information is protected by the Federal Confidentiality of Alcohol and Drug Abuse Patient Records regulations: The Federal rules restrict any use of the information to criminally investigate or prosecute any alcohol or drug abuse patient.[facility] AdministrationIn the event this information is protected by the Federal Confidentiality of Alcohol and Drug Abuse Patient Records regulations: The Federal rules restrict any use of the information to criminally investigate or prosecute any alcohol or drug abuse patient.[facility] AdministrationIn the event this information is protected by the Federal Confidentiality of Alcohol and Drug Abuse Patient Records regulations: The Federal rules restrict any use of the information to criminally investigate or prosecute any alcohol or drug abuse patient.[facility] AdministrationIn the event this information is protected by the Federal Confidentiality of Alcohol and Drug Abuse Patient Records regulations: The Federal rules restrict any use of the information to criminally investigate or prosecute any alcohol or drug abuse patient.[facility] AdministrationIn the event this information is protected by the Federal Confidentiality of Alcohol and Drug Abuse Patient Records regulations: The Federal rules restrict any use of the information to criminally investigate or prosecute any alcohol or drug abuse patient.[facility] AdministrationIn the event this information is protected by the Federal Confidentiality of Alcohol and Drug Abuse Patient Records regulations: The Federal rules restrict any use of the information to criminally investigate or prosecute any alcohol or drug abuse patient.[facility] AdministrationIn the event this information is protected by the Federal Confidentiality of Alcohol and Drug Abuse Patient Records regulations: The Federal rules restrict any use of the information to criminally investigate or prosecute any alcohol or drug abuse patient.[facility] AdministrationIn the event this information is protected by the Federal Confidentiality of Alcohol and Drug Abuse Patient Records regulations: The Federal rules restrict any use of the information to criminally investigate or prosecute any alcohol or drug abuse patient.[facility] AdministrationIn the event this information is protected by the Federal Confidentiality of Alcohol and Drug Abuse Patient Records regulations: The Federal rules restrict any use of the information to criminally investigate or prosecute any alcohol or drug abuse patient.[facility] AdministrationIn the event this information is protected by the Federal Confidentiality of Alcohol and Drug Abuse Patient Records regulations: The Federal rules restrict any use of the information to criminally investigate or prosecute any alcohol or drug abuse patient.[facility] AdministrationIn the event this information is protected by the Federal Confidentiality of Alcohol and Drug Abuse Patient Records regulations: The Federal rules restrict any use of the information to criminally investigate or prosecute any alcohol or drug abuse patient.[facility] AdministrationIn the event this information is protected by the Federal Confidentiality of Alcohol and Drug Abuse Patient Records regulations: The Federal rules restrict any use of the information to criminally investigate or prosecute any alcohol or drug abuse patient.[facility] AdministrationIn the event this information is protected by the Federal Confidentiality of Alcohol and Drug Abuse Patient Records regulations: The Federal rules restrict any use of the information to criminally investigate or prosecute any alcohol or drug abuse patient.[facility] AdministrationIn the event this information is protected by the Federal Confidentiality of Alcohol and Drug Abuse Patient Records regulations: The Federal rules restrict any use of the information to criminally investigate or prosecute any alcohol or drug abuse patient.[facility] AdministrationIn the event this information is protected by the Federal Confidentiality of Alcohol and Drug Abuse Patient Records regulations: The Federal rules restrict any use of the information to criminally investigate or prosecute any alcohol or drug abuse patient.[facility] AdministrationIn the event this information is protected by the Federal Confidentiality of Alcohol and Drug Abuse Patient Records regulations: The Federal rules restrict any use of the information to criminally investigate or prosecute any alcohol or drug abuse patient.[facility] AdministrationIn the event this information is protected by the Federal Confidentiality of Alcohol and Drug Abuse Patient Records regulations: The Federal rules restrict any use of the information to criminally investigate or prosecute any alcohol or drug abuse patient.[facility] AdministrationIn the event this information is protected by the Federal Confidentiality of Alcohol and Drug Abuse Patient Records regulations: The Federal rules restrict any use of the information to criminally investigate or prosecute any alcohol or drug abuse patient.[facility] AdministrationIn the event this information is protected by the Federal Confidentiality of Alcohol and Drug Abuse Patient Records regulations: The Federal rules restrict any use of the information to criminally investigate or prosecute any alcohol or drug abuse patient.[facility] AdministrationIn the event this information is protected by the Federal Confidentiality of Alcohol and Drug Abuse Patient Records regulations: The Federal rules restrict any use of the information to criminally investigate or prosecute any alcohol or drug abuse patient.[facility] AdministrationIn the event this information is protected by the Federal Confidentiality of Alcohol and Drug Abuse Patient Records regulations: The Federal rules restrict any use of the information to criminally investigate or prosecute any alcohol or drug abuse patient.[facility] AdministrationIn the event this information is protected by the Federal Confidentiality of Alcohol and Drug Abuse Patient Records regulations: The Federal rules restrict any use of the information to criminally investigate or prosecute any alcohol or drug abuse patient.[facility] AdministrationIn the event this information is protected by the Federal Confidentiality of Alcohol and Drug Abuse Patient Records regulations: The Federal rules restrict any use of the information to criminally investigate or prosecute any alcohol or drug abuse patient.[facility] AdministrationIn the event this information is protected by the Federal Confidentiality of Alcohol and Drug Abuse Patient Records regulations: The Federal rules restrict any use of the information to criminally investigate or prosecute any alcohol or drug abuse patient.[facility] AdministrationIn the event this information is protected by the Federal Confidentiality of Alcohol and Drug Abuse Patient Records regulations: The Federal rules restrict any use of the information to criminally investigate or prosecute any alcohol or drug abuse patient.[facility] AdministrationIn the event this information is protected by the Federal Confidentiality of Alcohol and Drug Abuse Patient Records regulations: The Federal rules restrict any use of the information to criminally investigate or prosecute any alcohol or drug abuse patient.[facility] AdministrationIn the event this information is protected by the Federal Confidentiality of Alcohol and Drug Abuse Patient Records regulations: The Federal rules restrict any use of the information to criminally investigate or prosecute any alcohol or drug abuse patient.[facility] AdministrationIn the event this information is protected by the Federal Confidentiality of Alcohol and Drug Abuse Patient Records regulations: The Federal rules restrict any use of the information to criminally investigate or prosecute any alcohol or drug abuse patient.[facility] AdministrationIn the event this information is protected by the Federal Confidentiality of Alcohol and Drug Abuse Patient Records regulations: The Federal rules restrict any use of the information to criminally investigate or prosecute any alcohol or drug abuse patient.[facility] AdministrationIn the event this information is protected by the Federal Confidentiality of Alcohol and Drug Abuse Patient Records regulations: The Federal rules restrict any use of the information to criminally investigate or prosecute any alcohol or drug abuse patient.[facility] AdministrationIn the event this information is protected by the Federal Confidentiality of Alcohol and Drug Abuse Patient Records regulations: The Federal rules restrict any use of the information to criminally investigate or prosecute any alcohol or drug abuse patient.[facility] AdministrationIn the event this information is protected by the Federal Confidentiality of Alcohol and Drug Abuse Patient Records regulations: The Federal rules restrict any use of the information to criminally investigate or prosecute any alcohol or drug abuse patient.[facility] AdministrationIn the event this information is protected by the Federal Confidentiality of Alcohol and Drug Abuse Patient Records regulations: The Federal rules restrict any use of the information to criminally investigate or prosecute any alcohol or drug abuse patient.[facility] AdministrationIn the event this information is protected by the Federal Confidentiality of Alcohol and Drug Abuse Patient Records regulations: The Federal rules restrict any use of the information to criminally investigate or prosecute any alcohol or drug abuse patient.[facility] AdministrationIn the event this information is protected by the Federal Confidentiality of Alcohol and Drug Abuse Patient Records regulations: The Federal rules restrict any use of the information to criminally investigate or prosecute any alcohol or drug abuse patient.[facility] the event this information is protected by the Federal Confidentiality of Alcohol and Drug Abuse Patient Records regulations: The Federal rules restrict any use of the information to criminally investigate or prosecute any alcohol or drug abuse patient.[facility] AdministrationIn the event this information is protected by the Federal Confidentiality of Alcohol and Drug Abuse Patient Records regulations: The Federal rules restrict any use of the information to criminally investigate or prosecute any alcohol or drug abuse patient.[facility] AdministrationIn the event this information is protected by the Federal Confidentiality of Alcohol and Drug Abuse Patient Records regulations: The Federal rules restrict any use of the information to criminally investigate or prosecute any alcohol or drug abuse patient.[facility] AdministrationIn the event this information is protected by the Federal Confidentiality of Alcohol and Drug Abuse Patient Records regulations: The Federal rules restrict any use of the information to criminally investigate or prosecute any alcohol or drug abuse patient.[facility] AdministrationIn the event this information is protected by the Federal Confidentiality of Alcohol and Drug Abuse Patient Records regulations: The Federal rules restrict any use of the information to criminally investigate or prosecute any alcohol or drug abuse patient.[facility] AdministrationIn the event this information is protected by the Federal Confidentiality of Alcohol and Drug Abuse Patient Records regulations: The Federal rules restrict any use of the information to criminally investigate or prosecute any alcohol or drug abuse patient.[facility] AdministrationIn the event this information is protected by the Federal Confidentiality of Alcohol and Drug Abuse Patient Records regulations: The Federal rules restrict any use of the information to criminally investigate or prosecute any alcohol or drug abuse patient.[facility] AdministrationIn the event this information is protected by the Federal Confidentiality of Alcohol and Drug Abuse Patient Records regulations: The Federal rules restrict any use of the information to criminally investigate or prosecute any alcohol or drug abuse patient.[facility] AdministrationIn the event this information is protected by the Federal Confidentiality of Alcohol and Drug Abuse Patient Records regulations: The Federal rules restrict any use of the information to criminally investigate or prosecute any alcohol or drug abuse patient.[facility] AdministrationIn the event this information is protected by the Federal Confidentiality of Alcohol and Drug Abuse Patient Records regulations: The Federal rules restrict any use of the information to criminally investigate or prosecute any alcohol or drug abuse patient.[facility]In the event this information is protected by the Federal Confidentiality of Alcohol and Drug Abuse Patient Records regulations: The Federal rules restrict any use of the information to criminally investigate or prosecute any alcohol or drug abuse patient.[facility] AdministrationIn the event this information is protected by the Federal Confidentiality of Alcohol and Drug Abuse Patient Records regulations: The Federal rules restrict any use of the information to criminally investigate or prosecute any alcohol or drug abuse patient.[facility] AdministrationIn the event this information is protected by the Federal Confidentiality of Alcohol and Drug Abuse Patient Records regulations: The Federal rules restrict any use of the information to criminally investigate or prosecute any alcohol or drug abuse patient.[facility] AdministrationIn the event this information is protected by the Federal Confidentiality of Alcohol and Drug Abuse Patient Records regulations: The Federal rules restrict any use of the information to criminally investigate or prosecute any alcohol or drug abuse patient.[facility] AdministrationIn the event this information is protected by the Federal Confidentiality of Alcohol and Drug Abuse Patient Records regulations: The Federal rules restrict any use of the information to criminally investigate or prosecute any alcohol or drug abuse patient.[facility]In the event this information is protected by the Federal Confidentiality of Alcohol and Drug Abuse Patient Records regulations: The Federal rules restrict any use of the information to criminally investigate or prosecute any alcohol or drug abuse patient.[facility] AdministrationIn the event this information is protected by the Federal Confidentiality of Alcohol and Drug Abuse Patient Records regulations: The Federal rules restrict any use of the information to criminally investigate or prosecute any alcohol or drug abuse patient.[facility] AdministrationIn the event this information is protected by the Federal Confidentiality of Alcohol and Drug Abuse Patient Records regulations: The Federal rules restrict any use of the information to criminally investigate or prosecute any alcohol or drug abuse patient.[facility]In the event this information is protected by the Federal Confidentiality of Alcohol and Drug Abuse Patient Records regulations: The Federal rules restrict any use of the information to criminally investigate or prosecute any alcohol or drug abuse patient.[facility] AdministrationIn the event this information is protected by the Federal Confidentiality of Alcohol and Drug Abuse Patient Records regulations: The Federal rules restrict any use of the information to criminally investigate or prosecute any alcohol or drug abuse patient.[facility] AdministrationIn the event this information is protected by the Federal Confidentiality of Alcohol and Drug Abuse Patient Records regulations: The Federal rules restrict any use of the information to criminally investigate or prosecute any alcohol or drug abuse patient.[facility] AdministrationIn the event this information is protected by the Federal Confidentiality of Alcohol and Drug Abuse Patient Records regulations: The Federal rules restrict any use of the information to criminally investigate or prosecute any alcohol or drug abuse patient.[facility] AdministrationIn the event this information is protected by the Federal Confidentiality of Alcohol and Drug Abuse Patient Records regulations: The Federal rules restrict any use of the information to criminally investigate or prosecute any alcohol or drug abuse patient.[facility]In the event this information is protected by the Federal Confidentiality of Alcohol and Drug Abuse Patient Records regulations: The Federal rules restrict any use of the information to criminally investigate or prosecute any alcohol or drug abuse patient.[facility] AdministrationIn the event this information is protected by the Federal Confidentiality of Alcohol and Drug Abuse Patient Records regulations: The Federal rules restrict any use of the information to criminally investigate or prosecute any alcohol or drug abuse patient.[facility]In the event this information is protected by the Federal Confidentiality of Alcohol and Drug Abuse Patient Records regulations: The Federal rules restrict any use of the information to criminally investigate or prosecute any alcohol or drug abuse patient.[facility] AdministrationIn the event this information is protected by the Federal Confidentiality of Alcohol and Drug Abuse Patient Records regulations: The Federal rules restrict any use of the information to criminally investigate or prosecute any alcohol or drug abuse patient.[facility] AdministrationIn the event this information is protected by the Federal Confidentiality of Alcohol and Drug Abuse Patient Records regulations: The Federal rules restrict any use of the information to criminally investigate or prosecute any alcohol or drug abuse patient.[facility] AdministrationIn the event this information is protected by the Federal Confidentiality of Alcohol and Drug Abuse Patient Records regulations: The Federal rules restrict any use of the information to criminally investigate or prosecute any alcohol or drug abuse patient.[facility]In the event this information is protected by the Federal Confidentiality of Alcohol and Drug Abuse Patient Records regulations: The Federal rules restrict any use of the information to criminally investigate or prosecute any alcohol or drug abuse patient.[facility]In the event this information is protected by the Federal Confidentiality of Alcohol and Drug Abuse Patient Records regulations: The Federal rules restrict any use of the information to criminally investigate or prosecute any alcohol or drug abuse patient.[facility]In the event this information is protected by the Federal Confidentiality of Alcohol and Drug Abuse Patient Records regulations: The Federal rules restrict any use of the information to criminally investigate or prosecute any alcohol or drug abuse patient.[facility]In the event this information is protected by the Federal Confidentiality of Alcohol and Drug Abuse Patient Records regulations: The Federal rules restrict any use of the information to criminally investigate or prosecute any alcohol or drug abuse patient.[facility]In the event this information is protected by the Federal Confidentiality of Alcohol and Drug Abuse Patient Records regulations: The Federal rules restrict any use of the information to criminally investigate or prosecute any alcohol or drug abuse patient.[facility]In the event this information is protected by the Federal Confidentiality of Alcohol and Drug Abuse Patient Records regulations: The Federal rules restrict any use of the information to criminally investigate or prosecute any alcohol or drug abuse patient.[facility]In the event this information is protected by the Federal Confidentiality of Alcohol and Drug Abuse Patient Records regulations: The Federal rules restrict any use of the information to criminally investigate or prosecute any alcohol or drug abuse patient.[facility]In the event this information is protected by the Federal Confidentiality of Alcohol and Drug Abuse Patient Records regulations: The Federal rules restrict any use of the information to criminally investigate or prosecute any alcohol or drug abuse patient.[facility]In the event this information is protected by the Federal Confidentiality of Alcohol and Drug Abuse Patient Records regulations: The Federal rules restrict any use of the information to criminally investigate or prosecute any alcohol or drug abuse patient.[facility]In the event this information is protected by the Federal Confidentiality of Alcohol and Drug Abuse Patient Records regulations: The Federal rules restrict any use of the information to criminally investigate or prosecute any alcohol or drug abuse patient.[facility]In the event this information is protected by the Federal Confidentiality of Alcohol and Drug Abuse Patient Records regulations: The Federal rules restrict any use of the information to criminally investigate or prosecute any alcohol or drug abuse patient.[facility]In the event this information is protected by the Federal Confidentiality of Alcohol and Drug Abuse Patient Records regulations: The Federal rules restrict any use of the information to criminally investigate or prosecute any alcohol or drug abuse patient.[facility]In the event this information is protected by the Federal Confidentiality of Alcohol and Drug Abuse Patient Records regulations: The Federal rules restrict any use of the information to criminally investigate or prosecute any alcohol or drug abuse patient.[facility]In the event this information is protected by the Federal Confidentiality of Alcohol and Drug Abuse Patient Records regulations: The Federal rules restrict any use of the information to criminally investigate or prosecute any alcohol or drug abuse patient.[facility]In the event this information is protected by the Federal Confidentiality of Alcohol and Drug Abuse Patient Records regulations: The Federal rules restrict any use of the information to criminally investigate or prosecute any alcohol or drug abuse patient.[facility]In the event this information is protected by the Federal Confidentiality of Alcohol and Drug Abuse Patient Records regulations: The Federal rules restrict any use of the information to criminally investigate or prosecute any alcohol or drug abuse patient.[facility]In the event this information is protected by the Federal Confidentiality of Alcohol and Drug Abuse Patient Records regulations: The Federal rules restrict any use of the information to criminally investigate or prosecute any alcohol or drug abuse patient.[facility]In the event this information is protected by the Federal Confidentiality of Alcohol and Drug Abuse Patient Records regulations: The Federal rules restrict any use of the information to criminally investigate or prosecute any alcohol or drug abuse patient.[facility]In the event this information is protected by the Federal Confidentiality of Alcohol and Drug Abuse Patient Records regulations: The Federal rules restrict any use of the information to criminally investigate or prosecute any alcohol or drug abuse patient.[facility]In the event this information is protected by the Federal Confidentiality of Alcohol and Drug Abuse Patient Records regulations: The Federal rules restrict any use of the information to criminally investigate or prosecute any alcohol or drug abuse patient.[facility]In the event this information is protected by the Federal Confidentiality of Alcohol and Drug Abuse Patient Records regulations: The Federal rules restrict any use of the information to criminally investigate or prosecute any alcohol or drug abuse patient.[facility] the event this information is protected by the Federal Confidentiality of Alcohol and Drug Abuse Patient Records regulations: The Federal rules restrict any use of the information to criminally investigate or prosecute any alcohol or drug abuse patient.[facility]In the event this information is protected by the Federal Confidentiality of Alcohol and Drug Abuse Patient Records regulations: The Federal rules restrict any use of the information to criminally investigate or prosecute any alcohol or drug abuse patient.[facility]In the event this information is protected by the Federal Confidentiality of Alcohol and Drug Abuse Patient Records regulations: The Federal rules restrict any use of the information to criminally investigate or prosecute any alcohol or drug abuse patient.[facility]In the event this information is protected by the Federal Confidentiality of Alcohol and Drug Abuse Patient Records regulations: The Federal rules restrict any use of the information to criminally investigate or prosecute any alcohol or drug abuse patient.[facility]In the event this information is protected by the Federal Confidentiality of Alcohol and Drug Abuse Patient Records regulations: The Federal rules restrict any use of the information to criminally investigate or prosecute any alcohol or drug abuse patient.[facility]In the event this information is protected by the Federal Confidentiality of Alcohol and Drug Abuse Patient Records regulations: The Federal rules restrict any use of the information to criminally investigate or prosecute any alcohol or drug abuse patient.[facility]In the event this information is protected by the Federal Confidentiality of Alcohol and Drug Abuse Patient Records regulations: The Federal rules restrict any use of the information to criminally investigate or prosecute any alcohol or drug abuse patient.[facility]In the event this information is protected by the Federal Confidentiality of Alcohol and Drug Abuse Patient Records regulations: The Federal rules restrict any use of the information to criminally investigate or prosecute any alcohol or drug abuse patient.[facility] AdministrationIn the event this information is protected by the Federal Confidentiality of Alcohol and Drug Abuse Patient Records regulations: The Federal rules restrict any use of the information to criminally investigate or prosecute any alcohol or drug abuse patient.[facility] AdministrationIn the event this information is protected by the Federal Confidentiality of Alcohol and Drug Abuse Patient Records regulations: The Federal rules restrict any use of the information to criminally investigate or prosecute any alcohol or drug abuse patient.[facility] AdministrationIn the event this information is protected by the Federal Confidentiality of Alcohol and Drug Abuse Patient Records regulations: The Federal rules restrict any use of the information to criminally investigate or prosecute any alcohol or drug abuse patient.[facility] AdministrationIn the event this information is protected by the Federal Confidentiality of Alcohol and Drug Abuse Patient Records regulations: The Federal rules restrict any use of the information to criminally investigate or prosecute any alcohol or drug abuse patient.[facility] AdministrationIn the event this information is protected by the Federal Confidentiality of Alcohol and Drug Abuse Patient Records regulations: The Federal rules restrict any use of the information to criminally investigate or prosecute any alcohol or drug abuse patient.[facility] AdministrationIn the event this information is protected by the Federal Confidentiality of Alcohol and Drug Abuse Patient Records regulations: The Federal rules restrict any use of the information to criminally investigate or prosecute any alcohol or drug abuse patient.[facility] AdministrationIn the event this information is protected by the Federal Confidentiality of Alcohol and Drug Abuse Patient Records regulations: The Federal rules restrict any use of the information to criminally investigate or prosecute any alcohol or drug abuse patient.[facility] AdministrationIn the event this information is protected by the Federal Confidentiality of Alcohol and Drug Abuse Patient Records regulations: The Federal rules restrict any use of the information to criminally investigate or prosecute any alcohol or drug abuse patient.[facility] AdministrationIn the event this information is protected by the Federal Confidentiality of Alcohol and Drug Abuse Patient Records regulations: The Federal rules restrict any use of the information to criminally investigate or prosecute any alcohol or drug abuse patient.[facility] AdministrationIn the event this information is protected by the Federal Confidentiality of Alcohol and Drug Abuse Patient Records regulations: The Federal rules restrict any use of the information to criminally investigate or prosecute any alcohol or drug abuse patient.[facility] AdministrationIn the event this information is protected by the Federal Confidentiality of Alcohol and Drug Abuse Patient Records regulations: The Federal rules restrict any use of the information to criminally investigate or prosecute any alcohol or drug abuse patient.[facility] AdministrationIn the event this information is protected by the Federal Confidentiality of Alcohol and Drug Abuse Patient Records regulations: The Federal rules restrict any use of the information to criminally investigate or prosecute any alcohol or drug abuse patient.[facility] AdministrationIn the event this information is protected by the Federal Confidentiality of Alcohol and Drug Abuse Patient Records regulations: The Federal rules restrict any use of the information to criminally investigate or prosecute any alcohol or drug abuse patient.[facility] AdministrationIn the event this information is protected by the Federal Confidentiality of Alcohol and Drug Abuse Patient Records regulations: The Federal rules restrict any use of the information to criminally investigate or prosecute any alcohol or drug abuse patient.[facility] AdministrationIn the event this information is protected by the Federal Confidentiality of Alcohol and Drug Abuse Patient Records regulations: The Federal rules restrict any use of the information to criminally investigate or prosecute any alcohol or drug abuse patient.[facility] AdministrationIn the event this information is protected by the Federal Confidentiality of Alcohol and Drug Abuse Patient Records regulations: The Federal rules restrict any use of the information to criminally investigate or prosecute any alcohol or drug abuse patient.[facility] AdministrationIn the event this information is protected by the Federal Confidentiality of Alcohol and Drug Abuse Patient Records regulations: The Federal rules restrict any use of the information to criminally investigate or prosecute any alcohol or drug abuse patient.[facility] AdministrationIn the event this information is protected by the Federal Confidentiality of Alcohol and Drug Abuse Patient Records regulations: The Federal rules restrict any use of the information to criminally investigate or prosecute any alcohol or drug abuse patient.[facility] AdministrationIn the event this information is protected by the Federal Confidentiality of Alcohol and Drug Abuse Patient Records regulations: The Federal rules restrict any use of the information to criminally investigate or prosecute any alcohol or drug abuse patient.[facility] AdministrationIn the event this information is protected by the Federal Confidentiality of Alcohol and Drug Abuse Patient Records regulations: The Federal rules restrict any use of the information to criminally investigate or prosecute any alcohol or drug abuse patient.[facility] AdministrationIn the event this information is protected by the Federal Confidentiality of Alcohol and Drug Abuse Patient Records regulations: The Federal rules restrict any use of the information to criminally investigate or prosecute any alcohol or drug abuse patient.[facility] AdministrationIn the event this information is protected by the Federal Confidentiality of Alcohol and Drug Abuse Patient Records regulations: The Federal rules restrict any use of the information to criminally investigate or prosecute any alcohol or drug abuse patient.[facility] AdministrationIn the event this information is protected by the Federal Confidentiality of Alcohol and Drug Abuse Patient Records regulations: The Federal rules restrict any use of the information to criminally investigate or prosecute any alcohol or drug abuse patient.[facility] AdministrationIn the event this information is protected by the Federal Confidentiality of Alcohol and Drug Abuse Patient Records regulations: The Federal rules restrict any use of the information to criminally investigate or prosecute any alcohol or drug abuse patient.[facility] AdministrationIn the event this information is protected by the Federal Confidentiality of Alcohol and Drug Abuse Patient Records regulations: The Federal rules restrict any use of the information to criminally investigate or prosecute any alcohol or drug abuse patient.[facility] AdministrationIn the event this information is protected by the Federal Confidentiality of Alcohol and Drug Abuse Patient Records regulations: The Federal rules restrict any use of the information to criminally investigate or prosecute any alcohol or drug abuse patient.[facility] AdministrationIn the event this information is protected by the Federal Confidentiality of Alcohol and Drug Abuse Patient Records regulations: The Federal rules restrict any use of the information to criminally investigate or prosecute any alcohol or drug abuse patient.[facility] AdministrationIn the event this information is protected by the Federal Confidentiality of Alcohol and Drug Abuse Patient Records regulations: The Federal rules restrict any use of the information to criminally investigate or prosecute any alcohol or drug abuse patient.[facility] AdministrationIn the event this information is protected by the Federal Confidentiality of Alcohol and Drug Abuse Patient Records regulations: The Federal rules restrict any use of the information to criminally investigate or prosecute any alcohol or drug abuse patient.[facility] AdministrationIn the event this information is protected by the Federal Confidentiality of Alcohol and Drug Abuse Patient Records regulations: The Federal rules restrict any use of the information to criminally investigate or prosecute any alcohol or drug abuse patient.[facility] AdministrationIn the event this information is protected by the Federal Confidentiality of Alcohol and Drug Abuse Patient Records regulations: The Federal rules restrict any use of the information to criminally investigate or prosecute any alcohol or drug abuse patient.[facility] AdministrationIn the event this information is protected by the Federal Confidentiality of Alcohol and Drug Abuse Patient Records regulations: The Federal rules restrict any use of the information to criminally investigate or prosecute any alcohol or drug abuse patient.[facility] AdministrationIn the event this information is protected by the Federal Confidentiality of Alcohol and Drug Abuse Patient Records regulations: The Federal rules restrict any use of the information to criminally investigate or prosecute any alcohol or drug abuse patient.[facility] AdministrationIn the event this information is protected by the Federal Confidentiality of Alcohol and Drug Abuse Patient Records regulations: The Federal rules restrict any use of the information to criminally investigate or prosecute any alcohol or drug abuse patient.[facility] AdministrationIn the event this information is protected by the Federal Confidentiality of Alcohol and Drug Abuse Patient Records regulations: The Federal rules restrict any use of the information to criminally investigate or prosecute any alcohol or drug abuse patient.[facility] AdministrationIn the event this information is protected by the Federal Confidentiality of Alcohol and Drug Abuse Patient Records regulations: The Federal rules restrict any use of the information to criminally investigate or prosecute any alcohol or drug abuse patient.[facility] AdministrationIn the event this information is protected by the Federal Confidentiality of Alcohol and Drug Abuse Patient Records regulations: The Federal rules restrict any use of the information to criminally investigate or prosecute any alcohol or drug abuse patient.[facility] AdministrationIn the event this information is protected by the Federal Confidentiality of Alcohol and Drug Abuse Patient Records regulations: The Federal rules restrict any use of the information to criminally investigate or prosecute any alcohol or drug abuse patient.[facility] AdministrationIn the event this information is protected by the Federal Confidentiality of Alcohol and Drug Abuse Patient Records regulations: The Federal rules restrict any use of the information to criminally investigate or prosecute any alcohol or drug abuse patient.[facility] AdministrationIn the event this information is protected by the Federal Confidentiality of Alcohol and Drug Abuse Patient Records regulations: The Federal rules restrict any use of the information to criminally investigate or prosecute any alcohol or drug abuse patient.[facility] AdministrationIn the event this information is protected by the Federal Confidentiality of Alcohol and Drug Abuse Patient Records regulations: The Federal rules restrict any use of the information to criminally investigate or prosecute any alcohol or drug abuse patient.[facility] AdministrationIn the event this information is protected by the Federal Confidentiality of Alcohol and Drug Abuse Patient Records regulations: The Federal rules restrict any use of the information to criminally investigate or prosecute any alcohol or drug abuse patient.[facility] the event this information is protected by the Federal Confidentiality of Alcohol and Drug Abuse Patient Records regulations: The Federal rules restrict any use of the information to criminally investigate or prosecute any alcohol or drug abuse patient.[facility] AdministrationIn the event this information is protected by the Federal Confidentiality of Alcohol and Drug Abuse Patient Records regulations: The Federal rules restrict any use of the information to criminally investigate or prosecute any alcohol or drug abuse patient.[facility] AdministrationIn the event this information is protected by the Federal Confidentiality of Alcohol and Drug Abuse Patient Records regulations: The Federal rules restrict any use of the information to criminally investigate or prosecute any alcohol or drug abuse patient.[facility] AdministrationIn the event this information is protected by the Federal Confidentiality of Alcohol and Drug Abuse Patient Records regulations: The Federal rules restrict any use of the information to criminally investigate or prosecute any alcohol or drug abuse patient.[facility] AdministrationIn the event this information is protected by the Federal Confidentiality of Alcohol and Drug Abuse Patient Records regulations: The Federal rules restrict any use of the information to criminally investigate or prosecute any alcohol or drug abuse patient.[facility] AdministrationIn the event this information is protected by the Federal Confidentiality of Alcohol and Drug Abuse Patient Records regulations: The Federal rules restrict any use of the information to criminally investigate or prosecute any alcohol or drug abuse patient.[facility] AdministrationIn the event this information is protected by the Federal Confidentiality of Alcohol and Drug Abuse Patient Records regulations: The Federal rules restrict any use of the information to criminally investigate or prosecute any alcohol or drug abuse patient.[facility] AdministrationIn the event this information is protected by the Federal Confidentiality of Alcohol and Drug Abuse Patient Records regulations: The Federal rules restrict any use of the information to criminally investigate or prosecute any alcohol or drug abuse patient.[facility] AdministrationIn the event this information is protected by the Federal Confidentiality of Alcohol and Drug Abuse Patient Records regulations: The Federal rules restrict any use of the information to criminally investigate or prosecute any alcohol or drug abuse patient.[facility] AdministrationIn the event this information is protected by the Federal Confidentiality of Alcohol and Drug Abuse Patient Records regulations: The Federal rules restrict any use of the information to criminally investigate or prosecute any alcohol or drug abuse patient.[facility] AdministrationIn the event this information is protected by the Federal Confidentiality of Alcohol and Drug Abuse Patient Records regulations: The Federal rules restrict any use of the information to criminally investigate or prosecute any alcohol or drug abuse patient.[facility] AdministrationIn the event this information is protected by the Federal Confidentiality of Alcohol and Drug Abuse Patient Records regulations: The Federal rules restrict any use of the information to criminally investigate or prosecute any alcohol or drug abuse patient.[facility] AdministrationIn the event this information is protected by the Federal Confidentiality of Alcohol and Drug Abuse Patient Records regulations: The Federal rules restrict any use of the information to criminally investigate or prosecute any alcohol or drug abuse patient.[facility]In the event this information is protected by the Federal Confidentiality of Alcohol and Drug Abuse Patient Records regulations: The Federal rules restrict any use of the information to criminally investigate or prosecute any alcohol or drug abuse patient.[facility] AdministrationIn the event this information is protected by the Federal Confidentiality of Alcohol and Drug Abuse Patient Records regulations: The Federal rules restrict any use of the information to criminally investigate or prosecute any alcohol or drug abuse patient.[facility] AdministrationIn the event this information is protected by the Federal Confidentiality of Alcohol and Drug Abuse Patient Records regulations: The Federal rules restrict any use of the information to criminally investigate or prosecute any alcohol or drug abuse patient.[facility]In the event this information is protected by the Federal Confidentiality of Alcohol and Drug Abuse Patient Records regulations: The Federal rules restrict any use of the information to criminally investigate or prosecute any alcohol or drug abuse patient.[facility]In the event this information is protected by the Federal Confidentiality of Alcohol and Drug Abuse Patient Records regulations: The Federal rules restrict any use of the information to criminally investigate or prosecute any alcohol or drug abuse patient.[facility]In the event this information is protected by the Federal Confidentiality of Alcohol and Drug Abuse Patient Records regulations: The Federal rules restrict any use of the information to criminally investigate or prosecute any alcohol or drug abuse patient.[facility] AdministrationIn the event this information is protected by the Federal Confidentiality of Alcohol and Drug Abuse Patient Records regulations: The Federal rules restrict any use of the information to criminally investigate or prosecute any alcohol or drug abuse patient.[facility] AdministrationIn the event this information is protected by the Federal Confidentiality of Alcohol and Drug Abuse Patient Records regulations: The Federal rules restrict any use of the information to criminally investigate or prosecute any alcohol or drug abuse patient.[facility] AdministrationIn the event this information is protected by the Federal Confidentiality of Alcohol and Drug Abuse Patient Records regulations: The Federal rules restrict any use of the information to criminally investigate or prosecute any alcohol or drug abuse patient.[facility]In the event this information is protected by the Federal Confidentiality of Alcohol and Drug Abuse Patient Records regulations: The Federal rules restrict any use of the information to criminally investigate or prosecute any alcohol or drug abuse patient.[facility] AdministrationIn the event this information is protected by the Federal Confidentiality of Alcohol and Drug Abuse Patient Records regulations: The Federal rules restrict any use of the information to criminally investigate or prosecute any alcohol or drug abuse patient.[facility]In the event this information is protected by the Federal Confidentiality of Alcohol and Drug Abuse Patient Records regulations: The Federal rules restrict any use of the information to criminally investigate or prosecute any alcohol or drug abuse patient.[facility] AdministrationIn the event this information is protected by the Federal Confidentiality of Alcohol and Drug Abuse Patient Records regulations: The Federal rules restrict any use of the information to criminally investigate or prosecute any alcohol or drug abuse patient.[facility] AdministrationIn the event this information is protected by the Federal Confidentiality of Alcohol and Drug Abuse Patient Records regulations: The Federal rules restrict any use of the information to criminally investigate or prosecute any alcohol or drug abuse patient.[facility]In the event this information is protected by the Federal Confidentiality of Alcohol and Drug Abuse Patient Records regulations: The Federal rules restrict any use of the information to criminally investigate or prosecute any alcohol or drug abuse patient.[facility] AdministrationIn the event this information is protected by the Federal Confidentiality of Alcohol and Drug Abuse Patient Records regulations: The Federal rules restrict any use of the information to criminally investigate or prosecute any alcohol or drug abuse patient.[facility]In the event this information is protected by the Federal Confidentiality of Alcohol and Drug Abuse Patient Records regulations: The Federal rules restrict any use of the information to criminally investigate or prosecute any alcohol or drug abuse patient.[facility]In the event this information is protected by the Federal Confidentiality of Alcohol and Drug Abuse Patient Records regulations: The Federal rules restrict any use of the information to criminally investigate or prosecute any alcohol or drug abuse patient.[facility] AdministrationIn the event this information is protected by the Federal Confidentiality of Alcohol and Drug Abuse Patient Records regulations: The Federal rules restrict any use of the information to criminally investigate or prosecute any alcohol or drug abuse patient.[facility]In the event this information is protected by the Federal Confidentiality of Alcohol and Drug Abuse Patient Records regulations: The Federal rules restrict any use of the information to criminally investigate or prosecute any alcohol or drug abuse patient.[facility]In the event this information is protected by the Federal Confidentiality of Alcohol and Drug Abuse Patient Records regulations: The Federal rules restrict any use of the information to criminally investigate or prosecute any alcohol or drug abuse patient.[facility] AdministrationIn the event this information is protected by the Federal Confidentiality of Alcohol and Drug Abuse Patient Records regulations: The Federal rules restrict any use of the information to criminally investigate or prosecute any alcohol or drug abuse patient.[facility]In the event this information is protected by the Federal Confidentiality of Alcohol and Drug Abuse Patient Records regulations: The Federal rules restrict any use of the information to criminally investigate or prosecute any alcohol or drug abuse patient.[facility] AdministrationIn the event this information is protected by the Federal Confidentiality of Alcohol and Drug Abuse Patient Records regulations: The Federal rules restrict any use of the information to criminally investigate or prosecute any alcohol or drug abuse patient.[facility] AdministrationIn the event this information is protected by the Federal Confidentiality of Alcohol and Drug Abuse Patient Records regulations: The Federal rules restrict any use of the information to criminally investigate or prosecute any alcohol or drug abuse patient.[facility]In the event this information is protected by the Federal Confidentiality of Alcohol and Drug Abuse Patient Records regulations: The Federal rules restrict any use of the information to criminally investigate or prosecute any alcohol or drug abuse patient.[facility]In the event this information is protected by the Federal Confidentiality of Alcohol and Drug Abuse Patient Records regulations: The Federal rules restrict any use of the information to criminally investigate or prosecute any alcohol or drug abuse patient.[facility]In the event this information is protected by the Federal Confidentiality of Alcohol and Drug Abuse Patient Records regulations: The Federal rules restrict any use of the information to criminally investigate or prosecute any alcohol or drug abuse patient.[facility]In the event this information is protected by the Federal Confidentiality of Alcohol and Drug Abuse Patient Records regulations: The Federal rules restrict any use of the information to criminally investigate or prosecute any alcohol or drug abuse patient.[facility] AdministrationIn the event this information is protected by the Federal Confidentiality of Alcohol and Drug Abuse Patient Records regulations: The Federal rules restrict any use of the information to criminally investigate or prosecute any alcohol or drug abuse patient.[facility]eter[facility] Health AdministrationIn the event this information is protected by the Federal Confidentiality of Alcohol and Drug Abuse Patient Records regulations: The Federal rules restrict any use of the information to criminally investigate or prosecute any alcohol or drug abuse patient.[facility] Health AdministrationIn the event this information is protected by the Federal Confidentiality of Alcohol and Drug Abuse Patient Records regulations: The Federal rules restrict any use of the information to criminally investigate or prosecute any alcohol or drug abuse patient.[facility] Reason for Visit (unrecogniz ed section and content) Reason Comments PT Progress Note PT Discharge Specialty Diagnoses / Procedures Referred By Contact Referred To Contact [facility] Diagnoses Right tennis elbow Procedures PT REHAB FOLLOW UP ORDER THERAPEUTIC EXERCISES RE, EA 15 MIN. Mika Simmons DO [address] [place] [address] [address] Referral ID Status Reason Start Date Expiration Date Visits Requested Visits Authorized [id number] Authorized PCP Requested Referral Auto-Generate d Referral 02/21/2023 08/12/2023 20 20 Reason Comments PT Eval Patient Education Specialty Diagnoses / Procedures Referred By Contac t Referred To Contact [facility] Diagnoses Right tennis elbow Procedures CONSULT TO PHYSICAL THERAPY PHYSICAL THERAPY EVALUATION HIGH COMPLEX 45 [place] [address] [address] Referral ID Status Reason Start Date Expiration Date V isits Requested Visits Authorized [id number] Closed Auto-Generate d Referral 01/27/2023 06/12/2023 1 1 Reason Onset Date Comments Insertion Of IUD 12/08/2022 Specialty Diagnoses / Procedures Referred By Contac t Referred To Contact [facility] Diagnoses Contraception, device intrauterine Encounter for IUD insertion Procedures INSERT INTRAUTERINE DEVICE LEVONORGESTREL IU 52MG 5 YR INSERT INTRAUTERINE DEVICE Safia Jamil MD [address] [place] [address] [address] Referral ID Status Reason Start Date Expiration Date V isits Requested Visits Authorized [id number] Closed Auto-Generate d Referral 12/01/2022 12/01/2023 [address] Specialty Diagnoses / Procedures Referred By Contac t Referred To Contact CT IMAGING Diagnoses Inflammatory bowel disease Procedures CT ENTEROGRAPHY W IVCON CT ABD & PELVIS W/CONTRAST Malathi Rodriguez MD [address] [place] [address] [address] Referral ID Status Reason Start Date Expiration Date V isits Requested Visits Authorized [id number] Closed Auto-Generate d Referral 03/24/2022 04/23/2023 2 2 Reason Comments PT Discharge Specialty Diagnoses / Procedures Referred By Contac t Referred To Contact [facility] Diagnoses Lateral epicondylitis of left elbow Procedures PT REHAB FOLLOW UP ORDER THERAPEUTIC EXERCISES RE, EA 15 [place] [address] [facility] [address] [address] Referral ID Status Reason Start Date Expiration Date Visits Requested Visits Authorized [id number] Authorized PCP Requested Referral Auto-Generate d Referral 03/02/2022 06/01/2022 2 2 Reason Comments Physical Therapy Referral ID Status Reason Start Date Expiration Date Visits Requested Visits Authorized [id number] Authorized PCP Requested Referral Auto-Generate d Referral 01/26/2022 04/28/2022 2 2 Reason Comments New Patient ingrown nails bilaterally Specialty Diagnoses / Procedures Referred By Contac t Referred To Contact Podiatry Diagnoses Ingrown toenail of left foot Procedures CONSULT TO PODIATRY OFFICE/OUTPATIENT NEW HIGH MDM 60-74 MINUTES Grayson Phan MD [address] [place] [address] Referral ID Status Reason Start Date Expiration Date V isits Requested Visits Authorized [id number] Closed PCP Requested Referral 01/27/2022 01/27/2023 1 1 Reason Comments PT Progress Note Specialty Diagnoses / Procedures Referred By Contac t Referred To Contact [facility] Diagnoses Lateral epicondylitis of left elbow Procedures PT REHAB FOLLOW UP ORDER THERAPEUTIC EXERCISES RE, EA 15 [place] [address] [facility] [address] [address] Referral ID Status Reason Start Date Expiration Date V isits Requested Visits Authorized [id number] Closed PCP Requested Referral Auto-Generated Referral 01/26/2022 04/28/2022 2 2 Reason Comments Established Patient Pain Specialty Diagnoses / Procedures Referred By Contact Referred To Contact Orthopedics / ORTHOPAEDIC SURGERY Diagnoses Lateral epicondylitis, left elbow left elbow tenotomy Procedures REPAIR ELBOW, PERC ECHO GUIDE FOR BIOPSY [address] Tenotomy of left elbow [address] US guide Mika Simmons DO [address] [place] [address] [place] [address] Referral ID Status Reason Start Date Expiration Date Visits Re quested Visits Authorized [id number] Closed 12/10/2021 11/12/2022 1 1 Specialty Diagnoses / Procedures Referred By Contac t Referred To Contact Physical Therapy / PHYSICAL THERAPY Diagnoses Other specified postprocedural states Other shoulder lesions, right shoulder Impingement syndrome of right shoulder S/P shoulder surgery [Z98.890] Rotator cuff tendinitis, right [M75.81] Impingement syndrome of right shoulder [M75.41] Procedures PHYSICAL THERAPY EVALUATION HIGH COMPLEX 45 MINS NEW RS PT ORTH Lara Negron DO [address] [place] [address] Sánchez Bedolla PT, DPT [address] [place] [address] Referral ID Status Reason Start Date Expiration Date Visits Re quested Visits Authorized [id number] Closed 03/13/2022 07/13/2022 1 1 Reason Comments Established Patient Specialty Diagnoses / Procedures Referred By Contac t Referred To Contact Rheumatology Diagnoses Multiple joint pain Procedures CONSULT TO RHEUM/IMMUN DISEASE NEW PATIENT VISIT LEVEL 5 Grasyon Phan MD [address] [place] [address] Referral ID Status Reason Start Date Expiration Date V isits Requested Visits Authorized [id number] Closed PCP Requested Referral 01/20/2021 01/20/2022 1 1 Reason Comments Physical Therapy Specialty Diagnoses / Procedures Referred By Contac t Referred To Contact [facility] Diagnoses S/P shoulder surgery Chronic right shoulder pain Procedures PT REHAB FOLLOW UP ORDER THERAPEUTIC EXERCISES RE, EA 15 MIN. Sánchez Bedolla PT, DPT [address] [place] [address] [facility] [address] [place] [address] Referral ID Status Reason Start Date Expiration Date Visits Requested Visits Authorized [id number] Authorized PCP Requested Referral Auto-Generate d Referral 03/18/2022 06/18/2022 8 8 Reason Comments New IBD Specialty Diagnoses / Procedures Referred By Contac t Referred To Contact Gastroenterology Diagnoses Inflammatory bowel disease Procedures CONSULT TO GASTROENTEROLOGY OFFICE/OUTPATIENT NEW HIGH MDM 60-74 MINUTES Malathi Rodriguez MD [address] [place] [address] Referral ID Status Reason Start Date Expiration Date V isits Requested Visits Authorized [id number] Closed PCP Requested Referral 03/24/2022 03/24/2023 1 1 Reason Comments Refill Request Reason Comments Results Specialty Diagnoses / Procedures Referred By Contac t Referred To Contact [facility] Diagnoses S/P shoulder surgery Chronic right shoulder pain Procedures PT REHAB FOLLOW UP ORDER THERAPEUTIC EXERCISES RE, EA 15 MIN. Sánchez Bedolla, PT, DPT [address] [place] [address] [facility] [address] [place] [address] Reason Onset Date Comments Refill Request 04/26/2022 Reason Comments Insulin Dependent Diabetes Mellitus Reason Comments Gianfranco reader and sensor Reason Comments Patient Update LABS/SUPPLIES Reason Comments Insurance Authorization gianfranco reader/ se nsor Reason Comments Prolia Reason Comments Forms [facility] Reason Comments Appointment Reason Comments Orders Reason Onset Date Comments Refill Request 06/15/2022 Referral ID Status Reason Start Date Expiration Date V isits Requested Visits Authorized [id number] Closed PCP Requested Referral Auto-Generated Referral 03/18/2022 06/18/2022 8 8 Reason Comments Non Alcoholic Fatty Liver Disease Reason Comments Patient Question Freestyle Gianfranco 2 Reason Comments Dizziness Reason Comments Well Woman Reason Comments Patient Question Reason Comments Pelvic Pain Reason Onset Date Comments Insertion Of IUD 12/01/2022 Referral ID Status Reason Start Date Expiration Date V isits Requested Visits Authorized [id number] Closed Auto-Generate d Referral 11/17/2022 11/17/2023 1 1 Reason Comments Insertion Of IUD Specialty Diagnoses / Procedures Referred By Contac t Referred To Contact [facility] Diagnoses Read Procedures OFFICE/OUTPATIENT ESTABLISHED HIGH MDM 40-54 MIN EST WHI PATIENT Safia Jamil MD [address] [place] [address] Safia Jamil MD [address] [place] [address] Referral ID Status Reason Start Date Expiration Date V isits Requested Visits Authorized [id number] Authorized 12/08/2022 11/12/2023 1 99 Reason Comments Diabetes Reason Onset Date Comments SPP Inflammatory Conditions - Treatment Referral 12/20/2022 Stelara Insurance Authorization 12/20/2022 PA on fi le Reason Comments Crohns Reason Comments iud check Specialty Diagnoses / Procedures Referred By Contac t Referred To Contact [facility] Diagnoses Read Procedures OFFICE/OUTPATIENT ESTABLISHED HIGH MDM 40-54 MIN EST WHI PATIENT Safia Jamil MD [address] [facility] [address] Safia Jamil MD [address] [place] [address] Referral ID Status Reason Start Date Expiration Date V isits Requested Visits Authorized [id number] Authorized 12/22/2022 01/19/2023 1 99 Reason Comments Consult Face Sheet Reason Onset Date Comments SPP Inflammatory Conditions - Medication Refill 01/13/2023 Stelara Specialty Diagnoses / Procedures Referred By Contac t Referred To Contact Diagnoses Primary hyperparathyroidism (HCC) Procedures CONSULT TO ENDOCRINE SURGERY OFFICE/OUTPATIENT NEW HIGH MDM 60-74 MINUTES Panda Harrison MD [address] [place] [address] Referral ID Status Reason Start Date Expiration Date Visits Requested Visits Authorized [id number] Pending Review PCP Requested Referral 12/21/2022 12/21/2023 1 1 Reason Comments [employer] Ultrasound Specialty Diagnoses / Procedures Referred By Contac t Referred To Contact [facility] Diagnoses READ Procedures OFFICE/OUTPATIENT ESTABLISHED MDM 10-19 MIN EST WHI PATIENT Darlene Li MD [address] [place] [address] Darlene Li MD [address] [place] [address] Referral ID Status Reason Start Date Expiration Date V isits Requested Visits Authorized [id number] Authorized 01/26/2023 11/12/2023 1 99 Reason Comments Established Patient Specialty Diagnoses / Procedures Referred By Contac t Referred To Contact Orthopedics / ORTHOPAEDIC SURGERY Diagnoses Lateral epicondylitis, right elbow Tenotomy of right elbow Procedures TENOTOMY ELBOW LATERAL/MEDIAL PERCUTANEOUS US GUIDANCE NEEDLE PLACEMENT IMG S&I 57694 Tenotomy of right elbow [address] US guide Self Mika [place] [address] [address] Referral ID Status Reason Start Date Expiration Date Visits Re quested Visits Authorized [id number] Closed 01/23/2023 11/12/2023 1 1 Reason Onset Date Comments Refill Request 02/01/2023 Specialty Diagnoses / Procedures Referred By Contact Referred To Contact [facility] Diagnoses Right tennis elbow Procedures PT REHAB FOLLOW UP ORDER THERAPEUTIC EXERCISES RE, EA 15 MIN. Mika Simmons DO [address] [place] [address] [facility] [address] [address] Reason Onset Date Comments Refill Request 03/20/2023 Reason Comments Patient Request Reason Comments Well Woman Reason Onset Date Comments SPP Inflammatory Conditions - Medication Refill 07/06/2023 Stelara Reason Comments Insulin Dependent Diabetes Mellitus Foll ow up Reason Comments F/U 6 months Reason Onset Date Comments Refill Request 09/18/2023 Reason Onset Date Comments Refill Request 09/24/2023 Reason Onset Date Comments SPP Inflammatory Conditions - Medication Refill 09/29/2023 Stelara Reason Comments left wrist pain Reason Comments Consult FOOSH Left hand Reason Onset Date Comments SPP Inflammatory Conditions - Medication Refill 12/26/2023 Stelara- NCA 12/2024 Reason Onset Date Comments Refill Request 12/26/2023 Reason Comments Patient Education U01 Research Study 2 2-252 Reason Comments Medication Problem Reason Comments ED Follow-up F/U 6 months Reason Comments Research F/U U01 Research Study 2 2-252 Reason Comments Insurance Authorization Freestyle Gianfranco Sensor Reason Comments Insurance Authorization Freestyle Gianfranco 3 Sensor Reason Comments Insurance Authorization flash glucose sc anning reader (FREESTYLE GIANFRANCO 3 READER) Reason Comments Insurance Authorization Blood-Glucose Se nsor (FREESTYLE GIANFRANCO 3 SENSOR) APPROVAL Reason Comments Insurance Authorization flash glucose sc anning reader (FREESTYLE GIANFRANCO 3 READER) APPROVAL Reason Onset Date Comments SPP Inflammatory Conditions - Medication Refill 03/15/2024 Stelara- NCA 01/07 Reason Comments Forms CGM with Physician's Order Form [[facility]] Reason Onset Date Comments Refill Request 04/25/2024 Reason Comments Patient Update Reason Comments Consult Frequent Kidney Ston es Reason Comments High Blood Sugar Reason Onset Date Comments Refill Request 05/30/2024 Reason Comments Radiology US Specialty Diagnoses / Procedures Referred By Controsie t Referred To Contact US IMAG[facility] Diagnoses Nephrolithiasis Procedures US KIDNEY/BLADDER US RETROPERITONEAL REAL TIME W/IMAGE COMPLETE OSamy Pryor, KARI [address] [place] [address] [place] [address] Referral ID Status Reason Start Date Expiration Date V isits Requested Visits Authorized [id number] Closed Auto-Generate d Referral 05/15/2024 06/14/2025 1 1 Reason Comments Sjogren's Disease Reason Onset Date Comments SPP Inflammatory Conditions - Medication Refill 06/05/2024 Stelara Reason Comments Established Patient kidney stones Reason Onset Date Comments Refill Request 07/29/2024 Reason Comments Radio Gen RMP Reason Onset Date Comments ACM LUPE RN 08/22/2024 ED Utilizatio n review per request of payor Reason Onset Date Comments SPP Inflammatory Conditions - Medication Refill 08/30/2024 Stelara Reason Onset Date Comments Refill Request 10/21/2024 Reason Comments High glucose on prednisone Reason Comments Non-insulin Dependent Diabetes Mellitus Reason Onset Date Comments SPP Inflammatory Conditions - Medication Refill 11/18/2024 Stelara Reason Onset Date Comments Transition Of Care 12/13/2024 TCM INITIAL O UTREACH Reason Onset Date Comments Population Health Navigation Outreach 12/17/2024 [employer] High Risk Attempt 2 Reason Comments Follow Up Hospital Follow-Up Reason Onset Date Comments Transition Of Care 12/26/2024 TCM FU CALL D AY 14 Reason Onset Date Comments Refill Request 01/07/2025 Reason Comments Appointment Patient Question Reason Onset Date Comments Population Health Navigation Outreach 02/05/2025 Humanbasilio Alanisbench Carbajal Reason Onset Date Comments SPP Inflammatory Conditions - Medication Refill 02/11/2025 Stelara Reason Comments Blood Sugar Elevation Reason Comments Diabetes Self Management Education Diabe raisa Management - Initial Reason Onset Date Comments 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 03/03/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 Reason Comments Established Patient Pain Knee Pain Reason Comments Established Patient Reason Onset Date Comments Population Health Navigation Outreach 03/28/2025 Humanbasilio worklisalebrondelfina raven Reason Comments Inflammatory Arthritis Reason Onset Date Comments SPP Inflammatory Conditions - Treatment Referral 04/14/2025 Stelara- Dose increase Insurance Authorization 04/14/2025 PA submi ssion pending Reason Onset Date Comments SPP Inflammatory Conditions - Medication Refill 04/17/2025 Stelara (dose increase) Specialty Diagnoses / Procedures Referred By Contac t Referred To Contact [facility] Diagnoses Pain in left hip Bursitis of right shoulder Primary osteoarthritis of left hip Procedures PT REHAB FOLLOW UP ORDER THERAPEUTIC EXERCISES RE, EA 15 MIN. Yuri Pitt, PT [facility] [address] [place] [address] Referral ID Status Reason Start Date Expiration Date Visits Requested Visits Authorized [id number] Authorized PCP Requested Referral Auto-Generate d Referral 04/04/2025 06/13/2025 8 8 Reason Onset Date Comments Population Health Navigation Outreach 04/30/2025 Cristopher Raffy Carbajal Reason Comments Forms Care Teams (unrecognized sec tion and content) Scrap Burner Relationship Specialty Start Date End Date Grayson Phan MD [address] [place], [place] [id number] PCP - General Internal Medicine 11/26/10 Scrap Burner Relationship Specialty Start Date End Date Grayson Phan MD [address] [place], [place] [id number] PCP - General Internal Medicine 11/26/10 Scrap Burner Relationship Specialty Start Date End Date Grayson Phan MD [address] [place] [address] PCP - General Internal Medicine 11/26/10 Scrap Burner Relationship Specialty Start Date End Date Grayson Phan MD [address] [facility] [address] PCP - General Internal Medicine 11/26/10 Scrap Burner Relationship Specialty Start Date End Date Grayson Phan MD [address] [facility] [address] PCP - General Internal Medicine 11/26/10 Scrap Burner Relationship Specialty Start Date End Date Grayosn Phan MD [address] [facility] [address] PCP - General Internal Medicine 11/26/10 Scrap Burner Relationship Specialty Start Date End Date Grayson Phan MD [address] [facility] [address] PCP - General Internal Medicine 11/26/10 Scrap Burner Relationship Specialty Start Date End Date Grayson Phan MD [address] [facility] [address] PCP - General Internal Medicine 11/26/10 Scrap Burner Relationship Specialty Start Date End Date Grayson Phan MD [address] [facility] [address] PCP - General Internal Medicine 11/26/10 Scrap Burner Relationship Specialty Start Date End Date Grayson Phan MD [address] [facility] [address] PCP - General Internal Medicine 11/26/10 Scrap Burner Relationship Specialty Start Date End Date Grayson Phan MD [address] [facility] [address] PCP - General Internal Medicine 11/26/10 Scrap Burner Relationship Specialty Start Date End Date Grayson Phan MD [address] [facility] [address] PCP - General Internal Medicine 11/26/10 Scrap Burner Relationship Specialty Start Date End Date Grayson Phan MD [address] [facility] [address] PCP - General Internal Medicine 11/26/10 Scrap Burner Relationship Specialty Start Date End Date Grayson Phan MD [address] [facility] [address] PCP - General Internal Medicine 11/26/10 Scrap Burner Relationship Specialty Start Date End Date Grayson Phan MD [address] [facility] [address] PCP - General Internal Medicine 11/26/10 Scrap Burner Relationship Specialty Start Date End Date Grayson Phan MD [address] [facility] [address] PCP - General Internal Medicine 11/26/10 Scrap Burner Relationship Specialty Start Date End Date Grayson Phan MD [address] [facility] [address] PCP - General Internal Medicine 11/26/10 Scrap Burner Relationship Specialty Start Date End Date Grayson Phan MD [address] [facility] [address] PCP - General Internal Medicine 11/26/10 Scrap Burner Relationship Specialty Start Date End Date Grayson Phan MD [address] [facility] [address] PCP - General Internal Medicine 11/26/10 Scrap Burner Relationship Specialty Start Date End Date Grayson Phan MD [address] [facility] [address] PCP - General Internal Medicine 11/26/10 Scrap Burner Relationship Specialty Start Date End Date Grayson Phan MD [address] [facility] [address] PCP - General Internal Medicine 11/26/10 Scrap Burner Relationship Specialty Start Date End Date Grayson Phan MD [address] [facility] [address] PCP - General Internal Medicine 11/26/10 Scrap Burner Relationship Specialty Start Date End Date Grayson Phan MD [address] [facility] [address] PCP - General Internal Medicine 11/26/10 Scrap Burner Relationship Specialty Start Date End Date Grayson Phan MD [address] [facility] [address] PCP - General Internal Medicine 11/26/10 Scrap Burner Relationship Specialty Start Date End Date Grayson Phan MD [address] [facility] [address] PCP - General Internal Medicine 11/26/10 Scrap Burner Relationship Specialty Start Date End Date Grayson Phan MD [address] [facility] [address] PCP - General Internal Medicine 11/26/10 Scrap Burner Relationship Specialty Start Date End Date Grayson Phan MD [address] [facility] [address] PCP - General Internal Medicine 11/26/10 Scrap Burner Relationship Specialty Start Date End Date Grayson Phan MD [address] [facility] [address] PCP - General Internal Medicine 11/26/10 Scrap Burner Relationship Specialty Start Date End Date Grayson Phan MD [address] [facility] [address] PCP - General Internal Medicine 11/26/10 Scrap Burner Relationship Specialty Start Date End Date Grayson Phan MD [address] [facility] [address] PCP - General Internal Medicine 11/26/10 Scrap Burner Relationship Specialty Start Date End Date Grayson Phan MD [address] [facility] [address] PCP - General Internal Medicine 11/26/10 Scrap Burner Relationship Specialty Start Date End Date Grayson Phan MD [address] [facility] [address] PCP - General Internal Medicine 11/26/10 Scrap Burner Relationship Specialty Start Date End Date Grayson Phan MD [facility] [place] [address] PCP - General Internal Medicine 11/26/10 Scrap Burner Relationship Specialty Start Date End Date Grayson Phan MD [address] [facility] [address] PCP - General Internal Medicine 11/26/10 Scrap Burner Relationship Specialty Start Date End Date Grayson Phan MD [address] [facility] [address] PCP - General Internal Medicine 11/26/10 Scrap Burner Relationship Specialty Start Date End Date Grayson Phan MD [address] [facility] [address] PCP - General Internal Medicine 11/26/10 Scrap Burner Relationship Specialty Start Date End Date Grayson Phan MD [address] [facility] [address] PCP - General Internal Medicine 11/26/10 Scrap Burner Relationship Specialty Start Date End Date Grayson Phan MD [address] [place] [address] PCP - General Internal Medicine 11/26/10 Scrap Burner Relationship Specialty Start Date End Date Grayson Phan MD [address] [place] [address] PCP - General Internal Medicine 11/26/10 Scrap Burner Relationship Specialty Start Date End Date Grayson Phan MD [address] [facility] [address] PCP - General Internal Medicine 11/26/10 Scrap Burner Relationship Specialty Start Date End Date Grayson Phan MD [address] [facility] [address] PCP - General Internal Medicine 11/26/10 Scrap Burner Relationship Specialty Start Date End Date Grayson Phan MD [address] [facility] [address] PCP - General Internal Medicine 11/26/10 Scrap Burner Relationship Specialty Start Date End Date Grayson Phan MD [address] [facility] [address] PCP - General Internal Medicine 11/26/10 Scrap Burner Relationship Specialty Start Date End Date Grayson Phan MD [address] [facility] [address] PCP - General Internal Medicine 11/26/10 Scrap Burner Relationship Specialty Start Date End Date Grayson Phan MD [address] [facility] [place] [address] PCP - General Internal Medicine 11/26/10 Scrap Burner Relationship Specialty Start Date End Date Grayson Phan MD [address] [facility] [address] PCP - General Internal Medicine 11/26/10 Scrap Burner Relationship Specialty Start Date End Date Grayson Phan MD [address] [facility] [address] PCP - General Internal Medicine 11/26/10 Scrap Burner Relationship Specialty Start Date End Date Grayson Phan MD [address] [place] [address] PCP - General Internal Medicine 11/26/10 Scrap Burner Relationship Specialty Start Date End Date Grayson Phan MD [address] [place] [address] PCP - General Internal Medicine 11/26/10 Scrap Burner Relationship Specialty Start Date End Date Grayson Phan MD [address] [place] [address] PCP - General Internal Medicine 11/26/10 Scrap Burner Relationship Specialty Start Date End Date Grayson Phan MD [address] [place] [address] PCP - General Internal Medicine 11/26/10 Scrap Burner Relationship Specialty Start Date End Date Grayson Phan MD [address] [place] [address] PCP - General Internal Medicine 11/26/10 Scrap Burner Relationship Specialty Start Date End Date Grayson Phan MD [address] [place] [address] PCP - General Internal Medicine 11/26/10 Scrap Burner Relationship Specialty Start Date End Date Grayson Phan MD [address] [facility] [place] [address] PCP - General Internal Medicine 11/26/10 Scrap Burner Relationship Specialty Start Date End Date Grayson Phan MD [address] [place] [address] PCP - General Internal Medicine 11/26/10 Scrap Burner Relationship Specialty Start Date End Date Grayson Phan MD [address] [place] [address] PCP - General Internal Medicine 11/26/10 Team Status: Active Member Role Status Dates Dr. Grayson Phan MD Family Provider Active Dr. Grayson Phan MD Primary Care Provider Active Team Status: Inactive Member Role Status Dates Dr. Grayson Phan MD Primary Care Provider Active Dr. Michelle Stern MD Attending Provider, Referring Pr ovider Active Scrap Burner Relationship Specialty Start Date End Date Grayson Phan MD [address] [place] [address] PCP - General Internal Medicine 11/26/10 Team Status: Inactive Member Role Status Dates Dr. Grayson Phan MD Primary Care Provider Active Dr. Kaleb Preston DO Emergency Provider Active Scrap Burner Relationship Specialty Start Date End Date Grayson Phan MD [address] [place] [address] PCP - General Internal Medicine 11/26/10 Team Status: Inactive Member Role Status Dates Dr. Grayson Phan MD Primary Care Provider Active Dr. Kaleb Preston DO Attending Provider, Emergency Provider Active Scrap Burner Relationship Specialty Start Date End Date Grayson Phan MD [address] [facility] [place] [address] PCP - General Internal Medicine 11/26/10 Scrap Burner Relationship Specialty Start Date End Date Grayson Phan MD [address] [facility] [place] [address] PCP - General Internal Medicine 11/26/10 Scrap Burner Relationship Specialty Start Date End Date Grayson Phan MD [address] [facility] [place] [address] PCP - General Internal Medicine 11/26/10 Scrap Burner Relationship Specialty Start Date End Date Grayson Phan MD [address] [facility] [address] PCP - General Internal Medicine 11/26/10 Scrap Burner Relationship Specialty Start Date End Date Grayson Phan MD [address] [facility] [place] [address] PCP - General Internal Medicine 11/26/10 Scrap Burner Relationship Specialty Start Date End Date Grayson Phan MD [address] [facility] [address] PCP - General Internal Medicine 11/26/10 Scrap Burner Relationship Specialty Start Date End Date Grayson Phan MD [address] [facility] [address] PCP - General Internal Medicine 11/26/10 Scrap Burner Relationship Specialty Start Date End Date Grayson Phan MD [address] [facility] [address] PCP - General Internal Medicine 11/26/10 Scrap Burner Relationship Specialty Start Date End Date Grayson Phan MD [address] [place] [address] PCP - General Internal Medicine 11/26/10 Scrap Burner Relationship Specialty Start Date End Date Grayson Phan MD [address] [place] [address] PCP - General Internal Medicine 11/26/10 Scrap Burner Relationship Specialty Start Date End Date Grayson Phan MD [address] [place] [address] PCP - General Internal Medicine 11/26/10 Scrap Burner Relationship Specialty Start Date End Date Grayson Phan MD [address] [place] [address] PCP - General Internal Medicine 11/26/10 Scrap Burner Relationship Specialty Start Date End Date Grayson Phan MD [address] [place] [address] PCP - General Internal Medicine 11/26/10 Samy Barragan PA-C [address] [place] [address] Urology 08/22/24 Scrap Burner Relationship Specialty Start Date End Date Grayson Phan MD [address] [place] [address] PCP - General Internal Medicine 11/26/10 Samy Barragan PA-C [address] [place] [address] Urology 08/22/24 Scrap Burner Relationship Specialty Start Date End Date Grayson Phan MD [address] [facility] [address] PCP - General Internal Medicine 11/26/10 Samy Barragan PA-C [address] [place] [address] Urology 08/22/24 Scrap Burner Relationship Specialty Start Date End Date Grayson Phan MD [address] [place] [address] PCP - General Internal Medicine 11/26/10 Samy Barragan PA-C [address] [place] [address] Urology 08/22/24 Aury Toledo, PERMIT TECHNICIAN.SQL ANALYST [address] [place] [address] Manager Graph[employer] Internal Medicine 10/21/24 Scrap Burner Relationship Specialty Start Date End Date Grayson Phan MD [address] [place] [address] PCP - General Internal Medicine 11/26/10 Samy Barragan PA-C [address] [place], [place] [address] Urology 08/22/24 Aury Toledo, PERMIT TECHNICIAN.SQL ANALYST [address] [place] [address] Manager Graphic Internal Medicine 10/21/24 Scrap Burner Relationship Specialty Start Date End Date Grayson Phan MD [address] [place] [address] PCP - General Internal Medicine 11/26/10 Samy Barragan PA-C [address] [place], [place] [address] Urology 08/22/24 Aury Toledo, PERMIT TECHNICIAN.SQL ANALYST [address] [place] [address] [facility] Internal Medicine 10/21/24 Scrap Burner Relationship Specialty Start Date End Date Grayson Phan MD [address] [place] [address] PCP - General Internal Medicine 11/26/10 Samy Barragan PA-C [address] [place], [place] [address] Urology 08/22/24 Aury Toledo, PERMIT TECHNICIAN.SQL ANALYST [address] [place] [address] Manager [employer] Internal Medicine 10/21/24 Scrap Burner Relationship Specialty Start Date End Date Grayson Phan MD [address] [place] [address] PCP - General Internal Medicine 11/26/10 Samy Barragan PA-C [address] [place], [place] [address] Urology 08/22/24 Aury Toledo, PERMIT TECHNICIAN.SQL ANALYST [address] [place] [address] Manager Graph[employer] Internal Medicine 10/21/24 Scrap Burner Relationship Specialty Start Date End Date Grayson Phan MD [address] [place] [address] PCP - General Internal Medicine 11/26/10 Samy Barragan PA-C [address] [place], [place] [id number] Urology 08/22/24 Aury Toledo, PERMIT TECHNICIAN.SQL ANALYST [address] [place] [address] Manager Graph[employer] Internal Medicine 10/21/24 Antonieta Boyer, GUILLERMINA [address] [place] [address] Primary Care Quality Assurance Qa Lab Analyst 12/13/24 Scrap Burner Relationship Specialty Start Date End Date Grayson Phan MD [address] [place] [address] PCP - General Internal Medicine 11/26/10 Samy Barragan PA-C [address] [place] [address] Urology 08/22/24 Aury Toledo, PERMIT TECHNICIAN.SQL ANALYST [address] [place] [address] Manager Graphic Internal Medicine 10/21/24 Antonieta Boyer, GUILLERMINA [address] [place] [address] Primary Care Quality Assurance Qa Lab Analyst 12/13/24 Scrap Burner Relationship Specialty Start Date End Date Grayson Phan MD [address] [place] [address] PCP - General Internal Medicine 11/26/10 Samy Barragan PA-C [address] [place] [address] Urology 08/22/24 Aury Toledo, PERMIT TECHNICIAN.SQL ANALYST [address] [place] [address] Manager Graph[employer] Internal Medicine 10/21/24 Antonieta Boyer, RN [address] [place] [address] Primary Care Quality Assurance Qa Lab Analyst 12/13/24 Scrap Burner Relationship Specialty Start Date End Date Grayson Phan MD [address] [place] [address] PCP - General Internal Medicine 11/26/10 Samy Barragan PA-C [address] [place] [address] Urology 08/22/24 Aury Toledo, PERMIT TECHNICIAN.SQL ANALYST [address] [place] [address] Manager Graphic Internal Medicine 10/21/24 Antonieta Boyer, GUILLERMINA [address] [place] [address] Primary Care Quality Assurance Qa Lab Analyst 12/13/24 Scrap Burner Relationship Specialty Start Date End Date Grayson Phan MD [address] [place] [address] PCP - General Internal Medicine 11/26/10 Samy Barragan PA-C [address] [place] [address] Urology 08/22/24 Aury Toledo, PERMIT TECHNICIAN.SQL ANALYST [address] [place] [address] Manager Graphic Internal Medicine 10/21/24 Antonieta Boyer, RN [address] [place] [address] Primary Care Quality Assurance Qa Lab Analyst 12/13/24 Scrap Burner Relationship Specialty Start Date End Date Grayson Phan MD [address] [place] [address] PCP - General Internal Medicine 11/26/10 Samy Barragan PA-C [address] [place] [address] Urology 08/22/24 Aury Toledo, PERMIT TECHNICIAN.SQL ANALYST [address] [place] [address] Manager Graphic Internal Medicine 10/21/24 Antonieta Boyer, RN [address] [place] [address] Primary Care Quality Assurance Qa Lab Analyst 12/13/24 Scrap Burner Relationship Specialty Start Date End Date Grayson Phan MD [address] [place] [address] PCP - General Internal Medicine 11/26/10 Samy Barragan PA-C [address] [place] [address] Urology 08/22/24 Aury Toledo, PERMIT TECHNICIAN.SQL ANALYST [address] [place] [address] Manager Graphic Internal Medicine 10/21/24 Antonieta Boyer, RN [address] [place] [address] Primary Care Quality Assurance Qa Lab Analyst 12/13/24 Scrap Burner Relationship Specialty Start Date End Date Grayson Phan MD [address] [place] [address] PCP - General Internal Medicine 11/26/10 Samy Barragan PA-C [address] [place], [place] [address] Urology 08/22/24 Aury Toledo, PERMIT TECHNICIAN.SQL ANALYST [address] [place] [address] Manager Graphic Internal Medicine 10/21/24 Antonieta Boyer, RN [address] [place] [address] Primary Care Quality Assurance Qa Lab Analyst 12/13/24 01/10/25 Scrap Burner Relationship Specialty Start Date End Date Grayson Phan MD [address] [place] [address] PCP - General Internal Medicine 11/26/10 Samy Barragan PA-C [address] [place] [address] Urology 08/22/24 Aury Toledo, PERMIT TECHNICIAN.SQL ANALYST [address] [place] [address] Manager Graphic Internal Medicine 10/21/24 Scrap Burner Relationship Specialty Start Date End Date Grayson Phan MD [address] [place] [address] PCP - General Internal Medicine 11/26/10 Samy Barragan PA-C [address] [place] [address] Urology 08/22/24 Aury Toledo, PERMIT TECHNICIAN.SQL ANALYST [address] [place] [address] Manager Graphic Internal Medicine 10/21/24 Scrap Burner Relationship Specialty Start Date End Date Grayson Phan MD [address] [place] [address] PCP - General Internal Medicine 11/26/10 Samy Barragan PA-C [address] [place] [address] Urology 08/22/24 Aury Toledo, PERMIT TECHNICIAN.SQL ANALYST [address] [place] [address] Manager Graphic Internal Medicine 10/21/24 Scrap Burner Relationship Specialty Start Date End Date Grayson Phan MD [address] [place] [address] PCP - General Internal Medicine 11/26/10 Samy Barragan PA-C [address] [place] [address] Urology 08/22/24 Aury Toledo, PERMIT TECHNICIAN.SQL ANALYST [address] [place] [address] Manager Graphic Internal Medicine 10/21/24 Scrap Burner Relationship Specialty Start Date End Date Grayson Phan MD [address] [place] [address] PCP - General Internal Medicine 11/26/10 Samy Barragan PA-C [address] [place], [place] [address] Urology 08/22/24 Aury Toledo, PERMIT TECHNICIAN.SQL ANALYST [address] [place] [address] [facility] Internal Medicine 10/21/24 Scrap Burner Relationship Specialty Start Date End Date Grayson Phan MD [address] [place] [address] PCP - General Internal Medicine 11/26/10 Samy Barragan [place]-C [address] [facility] [address] Urology 08/22/24 Aury Toledo, PERMIT TECHNICIAN.SQL ANALYST [address] [place] [address] [facility] Internal Medicine 10/21/24 Scrap Burner Relationship Specialty Start Date End Date Grayson Phan MD [address] [place] [address] PCP - General Internal Medicine 11/26/10 Samy Barragan PA-C [address] [place], [place] [address] Urology 08/22/24 Aury Toledo, PERMIT TECHNICIAN.SQL ANALYST [address] [place] [address] Manager Graphic Internal Medicine 10/21/24 Scrap Burner Relationship Specialty Start Date End Date Grayson Phan MD [address] [place] [address] PCP - General Internal Medicine 11/26/10 Samy Barragan PA-C [address] [place] [address] Urology 08/22/24 Aury Toledo, PERMIT TECHNICIAN.SQL ANALYST [address] [place] [address] Manager Graphic Internal Medicine 10/21/24 Scrap Burner Relationship Specialty Start Date End Date Grayson Phan MD [address] [place] [address] PCP - General Internal Medicine 11/26/10 Samy Barragan PA-C [address] [facility] [place] [place] [address] Urology 08/22/24 Aury Toledo, PERMIT TECHNICIAN.SQL ANALYST [address] [place] [address] Manager Graph[employer] Internal Medicine 10/21/24 Scrap Burner Relationship Specialty Start Date End Date Grayson Phan MD [address] [place] [address] PCP - General Internal Medicine 11/26/10 Samy Barragan PA-C [address] [place], [place] [address] Urology 08/22/24 Aury Toledo, PERMIT TECHNICIAN.SQL ANALYST [address] [place] [address] Manager Graphic Internal Medicine 10/21/24 Scrap Burner Relationship Specialty Start Date End Date Grayson Phan MD [address] [place] [address] PCP - General Internal Medicine 11/26/10 Samy Barragan PA-C [address] [place] [address] Urology 08/22/24 Aury Toledo, PERMIT TECHNICIAN.SQL ANALYST [address] [place] [address] Manager Graphic Internal Medicine 10/21/24 Scrap Burner Relationship Specialty Start Date End Date Grayson Phan MD [address] [place] [address] PCP - General Internal Medicine 11/26/10 Samy Barragan PA-C [address] [place] [address] Urology 08/22/24 Aury Toledo, PERMIT TECHNICIAN.SQL ANALYST [address] [facility] [address] Manager Graphic Internal Medicine 10/21/24 Scrap Burner Relationship Specialty Start Date End Date Grayson Phan MD [address] [facility] [address] PCP - General Internal Medicine 11/26/10 Samy Barragan PA-C [address] [place] [address] Urology 08/22/24 Aury Toledo, PERMIT TECHNICIAN.SQL ANALYST [address] [facility] [address] Manager Graphic Internal Medicine 10/21/24 Scrap Burner Relationship Specialty Start Date End Date Grayson Phan MD [address] [facility] [address] PCP - General Internal Medicine 11/26/10 Samy Barragan PA-C [address] [place] [address] Urology 08/22/24 Aury Toledo, PERMIT TECHNICIAN.SQL ANALYST [address] [facility] [address] Manager Graphic Internal Medicine 10/21/24 Scrap Burner Relationship Specialty Start Date End Date Grayson Phan MD [address] [facility] [address] PCP - General Internal Medicine 11/26/10 Samy Barragan PA-C [address] [place] [address] Urology 08/22/24 Aury Toledo APRN.SQL ANALYST [address] [place] [address] Manager Graph[employer] Internal Medicine 10/21/24 Goals (unrecognized section and content) Goals may be documented in a n alternate sectionGoals may be documented in an alternate sectionGoals may be documented in an alternate sectionGoals may be documented in an alternate sectionGoals may be documented in an alternate section INFORMATION SOURCE (unrecogn ized section and content) DATE CREATED AUTHOR 03/19/2025 [facility] DATE CREATED AUTHOR AUTHOR'S ORGANIZ ATION 04/20/2025 [facility] DATE CREATED AUTHOR AUTHOR'S ORGANIZ ATION 05/16/2025 [facility] DATE CREATED AUTHOR AUTHOR'S ORGANIZ ATION 05/17/2025 [facility] FOR RECORDS PERTAINING TO PATIENTS WHO ARE OR HAVE BEEN ENROLLED IN A CHEMICAL DEPENDENCY/SUBSTANCEABUSE PROGRAM, SOME INFORMATION MAY BE OMITTED. This clinical summary was aggregated from multiple sources. Caution should be exercised in using it in the provision of clinical care. This summary normalizes information from multiple sources, and as a consequence, information in this document may materially change the coding, format and clinical context of patient data. In addition, data may be omitted in some cases. CLINICAL DECISIONS SHOULD BE BASED ON THE PRIMARY CLINICAL RECORDS. [employer] provides no warranty or guarantee of the accuracy or completeness of information in this document.
== END | disposition home or self-care (01) ==
LOC: OPMRI 06:54
PROVIDERS: PCP Internal Medicine; Referring Provider Anesthesiology Pain Medicine; Visit Provider Anesthesiology Pain Medicine
DX: M54.12 Radiculopathy, cervical region (principal)
CPT/HCPCS: 72141